=== PATIENT | female | born 1960 | race Caucasian/White ===

== ENCOUNTER 2016-10-16 15:41 | Emergency (ER) | payer MEDICARE, MEDICAID ==
[~2016-10-16] VITALS: Ht 175.3 cm; Wt 130.6 kg
[~2016-10-16 15:41] MED LIST: ACET-789 PO; ATOR10TA66 PO; AZIT250T PO; AZIT250T5 PO; BENZ-13 PO; BUDE10.2 IH; CEFD300C3 PO; CEFU250T11 PO; CEPH-507 PO; CIPR-225 PO; CODE118S2 PO; DOCU-143 PO; DOXY100C42 PO; FLUC100T PO; FLUO40CA PO; FLUT1DIS26 IH; HYDR-3812 PO; HYDR-3816 PO; HYDR-3820 PO; LEVO500T2 PO; LEVO750T9 PO; LORA-405 PO; LORA10TA76 PO; METF-144 PO; METF500T4 PO; METH4TAB PO; NAPR-243 PO; NAPR500T PO; NITR-65 PO; NITR100C3 PO; OMEP20TA7 PO; OMEP40CA36 PO; ONDA4TAB8 PO; OXCA300T PO; OXYC-197 PO; OXYC-471 PO; PHEN-640 PO; PHEN100T17 PO; PRD20T PO; RT-ALBUINH IH; TIOT18CA2 IH; TRAM-42 PO; TRAM50TA2 PO
[2016-10-16] MEDS ORDERED: NS IV 1000 ML 1,000 ML IV ONE (16:27)
[2016-10-16] MEDS ORDERED: fentaNYL INJECTION 100 MCG/2 ML AMP IVP STA (16:41)
--- NOTE | 2016-10-16 16:55 | ED Abdominal Pain ---
General Chief Complaint: Abdominal/GI Problems Stated Complaint: ABD PAIN Nursing Triage Note: AMBULATED TO ROOM 02 HOLDING RIGHT LOWER ABD. COMPLAINS OF SHARP PAIN STARTING YESTERDAY. RECENT GALLBLADDER SURGERY ON 09/19 BY SHYANNE. PT COMPLAINED OF CHEST PAIN AT THE [facility] BUT DOES NOT COMPLAIN OF IT HERE. Sepsis Screen: No Definite Risk Source of Information: Patient Exam Limitations: No Limitations History of Present Illness Time Seen By Provider: 16:35 Initial Comments Here with report low pressure right lower quadrant abdominal pain for 2 days. Was seen at [facility] by Dr. Thompson today and sent here for further evaluation do to the right lower quadrant pain. She has history of cholecystectomy on 09/[address] Kimble. Denies vomiting or diarrhea. Does have mild fever today. Denies other concerns other than the right lower quadrant abdominal pain. Timing/Duration: 2-3 Days Severity/Quality: Moderate Location: RLQ Radiation: No Radiation Activities at Onset: None Modifying Factors: Worsens With Movement Associated Symptoms: No Back Pain, No Chest Pain, Fever/ChillsNo Nausea/ Vomiting, No Weakness Allergies and Home Medications Allergies Coded Allergies: Iodinated Contrast Media - IV Dye (Unverified Allergy, Unknown, 12/20/15) penicillin (Verified Allergy, Unknown, HAS RECEIVED ROCEPHIN, 04/18/15) Home Medications Albuterol Sulfate 8.5 Gm Hfa.aer.ad 2 PUFF IH Q4H PRN PRN WHEEZING (Reported) Atorvastatin Calcium 10 Mg Tablet #30 10 MG PO DAILY Prescribed by: RAQUEL CRAWFORD on 04/09/15 1616 Docusate Sodium 100 Mg Capsule #60 100 MG PO BID Prescribed by: STEPHANE KIMBLE on 09/19/16 1326 Fluticasone/Salmeterol 1 Each Blst.w.dev 1 EACH IH BID (Reported) Hydrocodone/Acetaminophen 1 Each Tablet #30 1 TAB PO Q4H PRN PRN Prescribed by: STEPHANE KIMBLE on 09/19/16 1326 Metformin HCl 500 Mg Tablet 500 MG PO BID WITH MEALS (Reported) Omeprazole 40 Mg Capsule.dr 40 MG PO DAILY (Reported) Tiotropium [place] 1 Inh Aerp 1 INH IH DAILY (Reported) Review of Systems Constitutional: see HPINo chills, No fever EENTM: No Symptoms Reported Respiratory: No Symptoms Reported Cardiovascular: No Symptoms ReportedDenies Chest Pain Gastrointestinal: Abdominal PainDenies Diarrhea, Denies Nausea, Denies Vomiting Musculoskeletal: no symptoms reported Skin: no symptoms reported Psychiatric/Neurological: No Symptoms Reported All Other Systems Reviewed Negative Unless Noted: Yes Past Vwfmino-Ivwjlq-Okslrc Hx Patient Social History Alcohol Use: Denies Use Recreational Drug Use: No Smoking Status: Former Smoker Former Smoker/When Quit: Apr 09, 2010 Recent Foreign Travel: No Contact w/Someone Who Travel: No Recent Infectious Disease Expo: No Recent Hopitalizations: No Physical Abuse Screen: No Sexual Abuse: No Immunizations Up To Date Tetanus Booster (TDap): Unknown Date of Pneumonia Vaccine: Feb 28, 2012 Date of Influenza Vaccine: Jul 16, 2016 Seasonal Allergies Seasonal Allergies: No Surgeries HX Surgeries: Yes (Partial Hysterectomy; Carpal Tunnel Nba, L KNEE SURGERY x9, Shoulder Surger) Surgeries: Hysterectomy, Orthopedic Respiratory Hx Respiratory Disorders: Yes (CPAP) Respiratory Disorders: Asthma, Sleep Apnea, COPD Cardiovascular Hx Cardiac Disorders: Yes Cardiac Disorders: High Cholesterol Neurological Hx Neurological Disorders: No Reproductive System Hx Reproductive Disorders: No (PID) Sexually Transmitted Disease: Yes (PID) HIV/AIDS: No 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 Genitourinary Hx Genitourinary Disorders: Yes Genitourinary Disorders: UTI-Chronic Gastrointestinal Hx Gastrointestinal Disorders: Yes Gastrointestinal Disorders: Gastroesophageal Reflux, Gall Bladder Disease, Irritable Bowel Musculoskeletal Hx Musculoskeletal Disorders: Yes Musculoskeletal Disorders: Arthritis, Fibromyalgia, Chronic Back Pain Endocrine Hx Endocrine Disorders: Yes Endocrine Disorders: Diabetes, Non-Insulin dep HEENT HX ENT Disorders: Yes (GLASSES) Loss of Vision: Bilateral Hearing Impairment: Denies Cancer Hx Cancer: No Psychosocial Hx Psychiatric Problems: Yes Behavioral Health Disorders: Anxiety, Bipolar, Depression Integumentary HX Skin/Integumentary Disorder: No Blood Transfusions Hx Blood Disorders: No Adverse Reaction to a Blood Tr: No (N/A) Reviewed Nursing Assessment Reviewed/Agree w Nursing PMH: Yes Family Medical History Family Medial History: Arthritis 19 MOTHER, Onset:Unknown Asthma 19 FATHER, Onset:Unknown Cataracts 19 MOTHER, Onset:Unknown Diabetes mellitus 19 MOTHER, Onset:Unknown FH: COPD (chronic obstructive pulmonary disease) 19 FATHER, Onset:Unknown Hypercholesterolemia 19 MOTHER MS (multiple sclerosis) G8 SISTER, Onset:Unknown Physical Exam Vital Signs VS - Last 72 Hours, by Label 10/16/16 16:00 Temp 99.2 Pulse 77 Resp 18 B/P 131/78 Pulse Ox 95 Capillary Refill : Less Than 3 Seconds General Appearance: WD/WN no apparent distress HEENT: PERRL/EOMI pharynx normal Neck: full range of motion supple Respiratory: lungs clear normal breath sounds Cardiovascular: regular rate, rhythm no murmur Gastrointestinal: softNo guarding, No rebound, tenderness (right lower quadrant) Extremities: non-tender normal inspection Back: normal inspection no CVA tenderness no vertebral tenderness Neurologic/Psychiatric: alert oriented x 3 Skin: normal color warm/dry (note note rate 90) Progress/Results/Core Measures Results/Orders Lab Results Laboratory Tests Test 10/16/16 16:50 10/16/16 17:00 10/16/16 17:05 Range/Units Urine Bacteria FEW H /HPF Urine Bilirubin 1+ H NEGATIVE Urine Casts NONE /LPF Urine Clarity SLIGHTLY CLOUDY Urine Color YELLOW Urine Crystals NONE /LPF Urine Culture Indicated NO Urine Glucose (UA) NEGATIVE NEGATIVE Urine Ketones NEGATIVE NEGATIVE Urine Leukocyte Esterase 1+ H NEGATIVE Urine Mucus NEGATIVE /LPF Urine Nitrite NEGATIVE NEGATIVE Urine Protein 1+ H NEGATIVE Urine RBC NONE /HPF Urine RBC (Auto) NEGATIVE NEGATIVE Urine Specific [place] 1.030 H 1.016-1.022 Urine Squamous Epithelial Cells 25-50 H /HPF Urine Urobilinogen NORMAL NORMAL MG/DL Urine WBC 2-5 /HPF Urine pH 5 5-9 Alanine Aminotransferase (ALT/SGPT) 33 0-55 U/L Albumin 4.0 3.2-4.5 G/DL Alkaline Phosphatase 105 40-136 U/L Anion Gap 11 5-14 MMOL/L Aspartate Amino Transf (AST/SGOT) 29 5-34 U/L BUN/Creatinine Ratio 16 Blood Urea Nitrogen 14 7-18 MG/DL Calcium Level 9.5 8.5-10.1 MG/DL Carbon Dioxide Level 24 21-32 MMOL/L Chloride Level 103 98-107 MMOL/L Creatinine 0.90 0.60-1.30 MG/DL Estimat Glomerular Filtration Rate > 60 Glucose Level 145 H 70-105 MG/DL Potassium Level 4.0 3.6-5.0 MMOL/L Sodium Level 138 135-145 MMOL/L Total Bilirubin 0.4 0.1-1.0 MG/DL Total Protein 7.8 6.4-8.2 G/DL Basophils # (Auto) 0.0 0.0-0.1 10^3/uL Basophils (%) (Auto) 0 0-10 % C-Reactive Protein High Sensitivity 0.59 H 0.00-0.50 MG/DL Eosinophils # (Auto) 0.2 0.0-0.3 10^3/uL Eosinophils (%) (Auto) 2 0-10 % Hematocrit 40 35-52 % Hemoglobin 13.8 11.5-16.0 G/DL Lymphocytes # (Auto) 4.0 1.0-4.0 X 10^3 Lymphocytes (%) (Auto) 37 12-44 % Mean Corpuscular Hemoglobin 28 25-34 PG Mean Corpuscular Hemoglobin Concent 35 32-36 G/DL Mean Corpuscular Volume 82 80-99 FL Mean Platelet Volume 11.9 H 7.4-10.4 FL Monocytes # (Auto) 0.6 0.0-1.0 X 10^3 Monocytes (%) (Auto) 5 0-12 % Neutrophils # (Auto) 6.0 1.8-7.8 X 10^3 Neutrophils (%) (Auto) 55 42-75 % Platelet Count 175 130-400 10^3/uL Red Blood Count 4.86 4.35-5.85 10^6/uL Red Cell Distribution Width 14.0 10.0-14.5 % White Blood Count 10.8 4.3-11.0 10^3/uL My Orders Orders-LUNA LEGER MD Cbc No Diff (10/16/16 16:27) Cbc With Automated Diff (10/16/16 16:27) Hs C Reactive Protein (10/16/16 16:27) Ua Culture If Indicated (10/16/16 16:27) Saline Lock/Iv-Start (10/16/16 16:27) Ns Iv 1000 Ml (Sodium Chloride 0.9%) (10/16/16 16:27) Ct Abdomen/Pelvis Wo (10/16/16 16:27) Fentanyl Injection (Sublimaze Injection (10/16/16 16:41) Urine Bedside (10/16/16 16:55) Comprehensive Metabolic Panel (10/16/16 17:26) Medications Given in ED Current Medications Medications Dose Ordered Sig/Veronika Route Start Time Stop Time Status Last Admin Dose Admin Sodium Chloride 1,000 ml @ 0 mls/hr Q0M ONCE IV 10/16/16 16:27 10/16/16 16:29 DC 10/16/16 17:03 1,000 MLS/HR Vital Signs/I&O Vital Sign - Last 12Hours 10/16/16 16:00 Temp 99.2 Pulse 77 Resp 18 B/P 131/78 Pulse Ox 95 Blood Pressure Mean: 95 Progress Note : Progress Note Seen and evaluated. IV, labs, normal saline 1 L bolus. Fentanyl [address] abdomen and pelvis without contrast ordered due to patient's IV contrast allergy. Monitor patient. 1800: No acute findings on CT. Patient pain related. Discharged home with return precautions. Patient verbalize understanding instructions and agreement with plan. Diagnostic Imaging Diagonstic Imaging: CT Plain Films/CT/US/NM/MRI: abdomen, pelvis Comments NAME: LENNY OROSCO [facility] REC#: [id number] PT STATUS: REG ER : 1960 PHYSICIAN: LUNA LEGER MD ADMIT DATE: 10/16/16/ER Draft Date of Exam:10/16/16 CT ABDOMEN/PELVIS WO PROCEDURE: CT abdomen and pelvis without contrast. TECHNIQUE: Multiple contiguous axial images were obtained through the abdomen and pelvis without the use of intravenous contrast. INDICATION: Vomiting x1 day. Right lower quadrant pain. COMPARISON: 09/13/2016. FINDINGS: The lung bases are clear. The liver appears normal. Gallbladder is absent. Pancreas and bile ducts appear normal. Spleen is normal. The adrenal glands are normal. Kidneys show no evidence of obstruction or calculi. Renal outlines are smooth. Bowel gas pattern appears normal. There is no evidence of constipation. The appendix is normal. No dilated structures are seen, however. No evidence of appendicolith. No intra-abdominal adenopathy. There is atherosclerotic disease of the aorta without evidence of aneurysm. IMPRESSION: 1. No evidence of appendicitis or diverticulitis. 2. No acute intra-abdominal abnormalities demonstrated when compared with previous study. Dictated on workstation # [id number] Dict: 10/16/16 174 Trans: 10/16/16 1747 [id number] Interpreted by: ZEINA JAVIER MD Electronically signed by: Reviewed: Reviewed by Me Departure Impression Impression: Primary Impression: Right lower quadrant abdominal pain Disposition: 01 HOME, SELF-CARE Condition: Improved Departure-Patient Inst. Decision time for Depature: 18:21 Referrals: NICKY THOMPSON MD (PCP/Family) Primary Care Physician Patient Instructions: Acute Abdomen (Belly Pain), Adult (DC) Add. Discharge Instructions: All discharge instructions reviewed with patient and/or family. Voiced understanding. Continue home medications as directed. Drink plenty of fluids. Follow-up with her DrGeorgina in one to 2 days for recheck. Return for worse pain, fever, vomiting, weakness, breathing problems or other concerns as needed. Copy Copies To 1: NICKY THOMPSON MD, TIMOTHY D MD Oct 16, 2016 16:55
[2016-10-16 17:01] LABS: KETONES,URINE NEGATIVE (NEGATIVE); LEUKOCYTE ESTERASE ,URINE 1+ (NEGATIVE); NITRITE,URINE NEGATIVE (NEGATIVE); PH,URINE 5 (5-9); PROTEIN,URINE 1+ (NEGATIVE); UROBILINOGEN,URINE NORMAL (NORMAL)
[2016-10-16 17:11] LABS: BASOPHILS % (AUTO) 0 % (0-10); EOSINOPHILS # (AUTO) 0.2 10^3/uL (0.0-0.3); EOSINOPHILS % (AUTO) 2 % (0-10); LYMPHOCYTES % (AUTO) 37 % (12-44); MEAN CORPUSCULAR HEMOGLOBIN 28 PG (25-34); MEAN CORPUSCULAR HGB CONC 35 G/DL (32-36); MEAN CORPUSCULAR VOLUME 82 FL (80-99); MEAN PLATELET VOLUME 11.9 FL (7.4-10.4); MONOCYTES # (AUTO) 0.6 X 10^3 (0.0-1.0); MONOCYTES % (AUTO) 5 % (0-12); NEUTROPHILS % (AUTO) 55 % (42-75); PLATELET COUNT 175 10^3/uL (130-400); RED BLOOD COUNT 4.86 10^6/uL (4.35-5.85); WHITE BLOOD COUNT 10.8 10^3/uL (4.3-11.0)
[2016-10-16 17:23] LABS: BILIRUBIN,URINE 1+ (NEGATIVE)
[2016-10-16 17:24] LABS: SQUAMOUS EPITHELIAL CELL,UR 25-50 /HPF
[2016-10-16 17:45] LABS: ALANINE AMINOTRANSFERASE 33 U/L (0-55); ANION GAP 11 MMOL/L (5-14); ASPARTATE AMINO TRANSFERASE 29 U/L (5-34); BILIRUBIN,TOTAL 0.4 MG/DL (0.1-1.0); BLOOD UREA NITROGEN 14 MG/DL (7-18); BUN/CREATININE RATIO 16; CALCIUM 9.5 MG/DL (8.5-10.1); CARBON DIOXIDE 24 MMOL/L (21-32); CHLORIDE 103 MMOL/L (98-107); GFR ESTIMATED > 60; GLUCOSE 145 MG/DL (70-105); SODIUM 138 MMOL/L (135-145); TOTAL PROTEIN 7.8 G/DL (6.4-8.2)
--- NOTE | 2016-10-16 17:48 | Diagnostic Imaging Report ---
PROCEDURE: CT abdomen and pelvis without contrast. TECHNIQUE: Multiple contiguous axial images were obtained through the abdomen and pelvis without the use of intravenous contrast. INDICATION: Vomiting x1 day. Right lower quadrant pain. COMPARISON: 09/13/2016. FINDINGS: The lung bases are clear. The liver appears normal. Gallbladder is absent. Pancreas and bile ducts appear normal. Spleen is normal. The adrenal glands are normal. Kidneys show no evidence of obstruction or calculi. Renal outlines are smooth. Bowel gas pattern appears normal. There is no evidence of constipation. The appendix is normal. No dilated structures are seen, however. No evidence of appendicolith. No intra-abdominal adenopathy. There is atherosclerotic disease of the aorta without evidence of aneurysm. IMPRESSION: 1. No evidence of appendicitis or diverticulitis. 2. No acute intra-abdominal abnormalities demonstrated when compared with previous study. Dictated by: Dictated on workstation # [id number]
[2016-10-16 18:41] VITALS: BP 129/83
== END 2016-10-16 18:41 | disposition home or self-care (01) ==
LOC: EDUNIT# 15:41 → ER 15:43
DX: R10.31 Right lower quadrant pain (principal); J44.9 Chronic obstructive pulmonary disease, unspecified; E11.9 Type 2 diabetes mellitus without complications; Z79.84 Long term (current) use of oral hypoglycemic drugs; Z79.899 Other long term (current) drug therapy; Z90.49 Acquired absence of other specified parts of digestive tract
CPT/HCPCS: 36415; 74176; 80053; 81000; 84703; 85025; 85027; 86141; 96361; 96374

== ENCOUNTER 2016-11-03 09:42 | Emergency (ER) | payer MEDICARE, MEDICAID ==
[~2016-11-03] VITALS: Ht 175.3 cm; Wt 129.7 kg
[2016-11-03] MEDS ORDERED: IBUPROFEN 600 MG (MOTRIN) TAB PO ONE (10:00)
--- NOTE | 2016-11-03 10:07 | ED Cough/URI ---
General Chief Complaint: Cough/Cold/Flu Symptoms Stated Complaint: CHEST PAIN/SORE THROAT Nursing Triage Note: Pt reports sore throat x2 weeks, coughing up "black stuff" x3 weeks, and chest pain x2 days. Pt reports chest pain is worse when taking a deep breath. Source: patient History of Present Illness Time seen by provider: 10:02 Initial Comments This 55-year-old white female presents with a history of sore throat which started she believes is strapped which was not treated with antibiotics. And a productive cough for the last 3 weeks of black sputum. Patient has had chest pain with coughing for the last 2 days. The patient's pain is sharp in nature and made worse with a deep breath. Patient denies associated headache, photophobia, or stiff neck. She denies vomiting, diarrhea, dysuria. Patient states that she has had this same symptom complex before secondary to pneumonia. Patient is a diabetic on metformin. Allergies and Home Medications Allergies Coded Allergies: Iodinated Contrast Media - IV Dye (Unverified Allergy, Unknown, 12/20/15) penicillin (Verified Allergy, Unknown, HAS RECEIVED ROCEPHIN, 04/18/15) Home Medications Albuterol Sulfate 8.5 Gm Hfa.aer.ad 2 PUFF IH Q4H PRN PRN WHEEZING (Reported) Atorvastatin Calcium 10 Mg Tablet #30 10 MG PO DAILY Prescribed by: RAQUEL CRAWFORD on 04/09/15 1616 Docusate Sodium 100 Mg Capsule #60 100 MG PO BID Prescribed by: STEPHANE KIMBLE on 09/19/16 1326 Fluticasone/Salmeterol 1 Each Blst.w.dev 1 EACH IH BID (Reported) Hydrocodone/Acetaminophen 1 Each Tablet #30 1 TAB PO Q4H PRN PRN Prescribed by: STEPHANE KIMBLE on 09/19/16 1326 Metformin HCl 500 Mg Tablet 500 MG PO BID WITH MEALS (Reported) Omeprazole 40 Mg Capsule.dr 40 MG PO DAILY (Reported) Tiotropium [place] 1 Inh Aerp 1 INH IH DAILY (Reported) Constitutional: No chills, No fever EENTM: throat pain throat swellingNo ear pain Respiratory: coughNo short of breath, No wheezing Gastrointestinal: No abdominal pain, No diarrhea, No nausea, No vomiting Genitourinary: No dysuria, No frequency, No hematuria Musculoskeletal: back painNo joint pain Skin: No rash Psychiatric/Neurological: No Symptoms Reported Past Syrpcwh-Qlkygr-Ssqojg Hx Patient Social History Alcohol Use: Denies Use Recreational Drug Use: No Smoking Status: Former Smoker Former Smoker/When Quit: Apr 09, 2010 Recent Foreign Travel: No Contact w/Someone Who Travel: No Recent Infectious Disease Expo: No Recent Hopitalizations: No Immunizations Up To Date Tetanus Booster (TDap): Unknown Date of Pneumonia Vaccine: Feb 28, 2012 Date of Influenza Vaccine: Jul 16, 2016 Seasonal Allergies Seasonal Allergies: No Surgeries HX Surgeries: Yes (Partial Hysterectomy; Carpal Tunnel Nba, L KNEE SURGERY x9, Shoulder Surger) Surgeries: Hysterectomy, Orthopedic Respiratory Hx Respiratory Disorders: Yes (CPAP) Respiratory Disorders: Asthma, Sleep Apnea, COPD Cardiovascular Hx Cardiac Disorders: Yes Cardiac Disorders: High Cholesterol Neurological Hx Neurological Disorders: No Reproductive System Hx Reproductive Disorders: No (PID) Sexually Transmitted Disease: Yes (PID) HIV/AIDS: No 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 Genitourinary Hx Genitourinary Disorders: Yes Genitourinary Disorders: UTI-Chronic Gastrointestinal Hx Gastrointestinal Disorders: Yes Gastrointestinal Disorders: Gastroesophageal Reflux, Gall Bladder Disease, Irritable Bowel Musculoskeletal Hx Musculoskeletal Disorders: Yes Musculoskeletal Disorders: Arthritis, Fibromyalgia, Chronic Back Pain Endocrine Hx Endocrine Disorders: Yes Endocrine Disorders: Diabetes, Non-Insulin dep HEENT HX ENT Disorders: Yes (GLASSES) Loss of Vision: Bilateral Hearing Impairment: Denies Cancer Hx Cancer: No Psychosocial Hx Psychiatric Problems: Yes Behavioral Health Disorders: Anxiety, Bipolar, Depression Integumentary HX Skin/Integumentary Disorder: No Blood Transfusions Hx Blood Disorders: No Adverse Reaction to a Blood Tr: No (N/A) Reviewed Nursing Assessment Reviewed/Agree w Nursing PMH: Yes Family Medical History Family Medial History: Arthritis 19 MOTHER, Onset:Unknown Asthma 19 FATHER, Onset:Unknown Cataracts 19 MOTHER, Onset:Unknown Diabetes mellitus 19 MOTHER, Onset:Unknown FH: COPD (chronic obstructive pulmonary disease) 19 FATHER, Onset:Unknown Hypercholesterolemia 19 MOTHER MS (multiple sclerosis) G8 SISTER, Onset:Unknown Physical Exam Vital Signs Vital Sign - Last 12Hours 11/03/16 09:49 Temp 99.0 Pulse 77 Resp 18 B/P 134/76 Pulse Ox 96 O2 Delivery Room Air Capillary Refill : Less Than 3 Seconds General Appearance: WD/WN mild distress Eyes: Bilateral Eye Normal Inspection HEENT: normal ENT inspection pharynx normal Neck: supple normal inspection Respiratory: lungs clear normal breath sounds no respiratory distress other ( there is tenderness palpation of the chest wall. Patient's) Cardiovascular: normal peripheral pulses regular rate, rhythm ( chest wall pain is made worse with coughing.) no gallop no murmur Gastrointestinal: normal bowel sounds non tender soft Extremities: normal range of motion non-tender normal inspection Neurologic/Psychiatric: no motor/sensory deficits alert Skin: normal color warm/dry Progress/Results/Core Measures Results/Orders Lab Results Laboratory Tests Test 11/03/16 09:54 11/03/16 10:16 11/03/16 10:21 Range/Units Alanine Aminotransferase (ALT/SGPT) 29 0-55 U/L Albumin 4.0 3.2-4.5 G/DL Alkaline Phosphatase 95 40-136 U/L Anion Gap 13 5-14 MMOL/L Aspartate Amino Transf (AST/SGOT) 27 5-34 U/L BUN/Creatinine Ratio 13 Basophils # (Auto) 0.0 0.0-0.1 10^3/uL Basophils (%) (Auto) 0 0-10 % Blood Urea Nitrogen 11 7-18 MG/DL Calcium Level 9.3 8.5-10.1 MG/DL Carbon Dioxide Level 21 21-32 MMOL/L Chloride Level 102 98-107 MMOL/L Creatinine 0.83 0.60-1.30 MG/DL Eosinophils # (Auto) 0.2 0.0-0.3 10^3/uL Eosinophils (%) (Auto) 2 0-10 % Estimat Glomerular Filtration Rate > 60 Glucose Level 131 H 70-105 MG/DL Hematocrit 37 35-52 % Hemoglobin 12.5 11.5-16.0 G/DL Hemoglobin A1c 6.8 H 4.5-6.2 % Lymphocytes # (Auto) 2.6 1.0-4.0 X 10^3 Lymphocytes (%) (Auto) 31 12-44 % Mean Corpuscular Hemoglobin 28 25-34 PG Mean Corpuscular Hemoglobin Concent 34 32-36 G/DL Mean Corpuscular Volume 84 80-99 FL Mean Platelet Volume 12.1 H 7.4-10.4 FL Monocytes # (Auto) 0.3 0.0-1.0 X 10^3 Monocytes (%) (Auto) 4 0-12 % Neutrophils # (Auto) 5.2 1.8-7.8 X 10^3 Neutrophils (%) (Auto) 63 42-75 % Platelet Count 184 130-400 10^3/uL Potassium Level 3.9 3.6-5.0 MMOL/L Red Blood Count 4.44 4.35-5.85 10^6/uL Red Cell Distribution Width 13.8 10.0-14.5 % Sodium Level 136 135-145 MMOL/L Total Bilirubin 0.5 0.1-1.0 MG/DL Total Protein 7.8 6.4-8.2 G/DL Troponin I < 0.30 <0.30 NG/ML White Blood Count 8.3 4.3-11.0 10^3/uL Urine Bacteria MODERATE H /HPF Urine Bilirubin NEGATIVE NEGATIVE Urine Casts NONE /LPF Urine Clarity SLIGHTLY CLOUDY Urine Color YELLOW Urine Crystals NONE /LPF Urine Culture Indicated YES Urine Glucose (UA) NEGATIVE NEGATIVE Urine Ketones NEGATIVE NEGATIVE Urine Leukocyte Esterase 1+ H NEGATIVE Urine Mucus SMALL H /LPF Urine Nitrite NEGATIVE NEGATIVE Urine Protein NEGATIVE NEGATIVE Urine RBC NONE /HPF Urine RBC (Auto) NEGATIVE NEGATIVE Urine Specific [place] 1.025 H 1.016-1.022 Urine Squamous Epithelial Cells 2-5 /HPF Urine Urobilinogen NORMAL NORMAL MG/DL Urine WBC 5-10 H /HPF Urine pH 5 5-9 Group A Streptococcus Screen POSITIVE H NEGATIVE My Orders Orders-CHRISTO VIDAL MD Cbc With Automated Diff (11/03/16 09:59) Rapid Strep A Screen (11/03/16 09:59) Comprehensive Metabolic Panel (11/03/16 09:59) Chest Pa/Lat (2 View) (11/03/16 09:59) Hemoglobin A1c (11/03/16 09:59) Ua Culture If Indicated (11/03/16 09:59) Ibuprofen Tablet (Motrin Tablet) (11/03/16 10:00) Saline Lock/Iv-Start (11/03/16 10:10) Ekg Tracing (11/03/16 10:15) Troponin I (11/03/16 10:15) Urine Culture (11/03/16 10:16) Medications Given in ED Current Medications Medications Dose Ordered Sig/Veronika Route Start Time Stop Time Status Last Admin Dose Admin Ibuprofen 600 mg ONCE ONCE PO 11/03/16 10:00 11/03/16 10:03 DC 11/03/16 10:23 600 MG Vital Signs/I&O Vital Sign - Last 12Hours 11/03/16 11/03/16 09:49 09:53 Temp 99.0 Pulse 77 Resp 18 B/P 134/76 Pulse Ox 96 O2 Delivery Room Air Room Air Blood Pressure Mean: 95 Progress Note : Time: 11:16 Progress Note Patient's strep screen was positive. Patient demonstrated evidence of urinary tract infection. Patient's CBC, chest x-ray, and the remainder of her workup were unremarkable. Departure Impression Impression: Primary Impression: Strep throat Additional Impression: UTI (urinary tract infection) Qualified Code: N30.00 - Acute cystitis without hematuria Disposition: HOME, SELF-CARE Condition: Unchanged Departure-Patient Inst. Decision time for Depature: 11:17 Referrals: NICKY THOMPSON MD (PCP/Family) Primary Care Physician Add. Discharge Instructions: Keflex as prescribed. Close follow-up with Dr. Alvarado. Vicodin for pain. Return of any problems. All discharge instructions reviewed with patient and/ or family. Voiced understanding. CHRISTO VIDAL MD Nov 03, 2016 10:07
[2016-11-03 10:09] LABS: BASOPHILS % (AUTO) 0 % (0-10); EOSINOPHILS # (AUTO) 0.2 10^3/uL (0.0-0.3); EOSINOPHILS % (AUTO) 2 % (0-10); LYMPHOCYTES # (AUTO) 2.6 X 10^3 (1.0-4.0); LYMPHOCYTES % (AUTO) 31 % (12-44); MEAN CORPUSCULAR HEMOGLOBIN 28 PG (25-34); MEAN CORPUSCULAR HGB CONC 34 G/DL (32-36); MEAN CORPUSCULAR VOLUME 84 FL (80-99); MEAN PLATELET VOLUME 12.1 FL (7.4-10.4); MONOCYTES # (AUTO) 0.3 X 10^3 (0.0-1.0); MONOCYTES % (AUTO) 4 % (0-12); NEUTROPHILS # (AUTO) 5.2 X 10^3 (1.8-7.8); NEUTROPHILS % (AUTO) 63 % (42-75); PLATELET COUNT 184 10^3/uL (130-400); RED BLOOD COUNT 4.44 10^6/uL (4.35-5.85); RED CELL DISTRIBUTION WIDTH 13.8 % (10.0-14.5); WHITE BLOOD COUNT 8.3 10^3/uL (4.3-11.0)
[2016-11-03 10:23] LABS: ALANINE AMINOTRANSFERASE 29 U/L (0-55); ANION GAP 13 MMOL/L (5-14); ASPARTATE AMINO TRANSFERASE 27 U/L (5-34); BILIRUBIN,TOTAL 0.5 MG/DL (0.1-1.0); BLOOD UREA NITROGEN 11 MG/DL (7-18); BUN/CREATININE RATIO 13; CALCIUM 9.3 MG/DL (8.5-10.1); CARBON DIOXIDE 21 MMOL/L (21-32); CHLORIDE 102 MMOL/L (98-107); CREATININE SERUM 0.83 MG/DL (0.60-1.30); GFR ESTIMATED > 60; GLUCOSE 131 MG/DL (70-105); POTASSIUM 3.9 MMOL/L (3.6-5.0); SODIUM 136 MMOL/L (135-145); TOTAL PROTEIN 7.8 G/DL (6.4-8.2)
[2016-11-03 10:23] LABS: BILIRUBIN,URINE NEGATIVE (NEGATIVE); KETONES,URINE NEGATIVE (NEGATIVE); LEUKOCYTE ESTERASE ,URINE 1+ (NEGATIVE); NITRITE,URINE NEGATIVE (NEGATIVE); PH,URINE 5 (5-9); PROTEIN,URINE NEGATIVE (NEGATIVE); UROBILINOGEN,URINE NORMAL (NORMAL)
--- NOTE | 2016-11-03 10:25 | Diagnostic Imaging Report ---
Clinical indication: Patient with chest pain x2 days. Patient has swollen throat for approximately 2 weeks. Exam: Chest x-ray PA and lateral views. Comparisons: Chest x-ray dated 07/18/2016. Findings: Lungs/pleura: Lungs are clear. There is no pneumothorax. There is no pleural effusion. Mediastinum: Unremarkable. Pulmonary vasculature: Unremarkable. Heart: Unremarkable. Bones/extrathoracic soft tissue: Unremarkable. Impression: There is no radiographic evidence of acute cardiopulmonary process. Dictated by: Dictated on workstation # [id number]
[2016-11-03 11:34] VITALS: BP 147/79
== END 2016-11-03 11:33 | disposition home or self-care (01) ==
LOC: EDUNIT# 09:42 → ER 09:43
DX: J02.0 Streptococcal pharyngitis (principal); N39.0 Urinary tract infection, site not specified; R07.89 Other chest pain; Z79.84 Long term (current) use of oral hypoglycemic drugs; Z87.891 Personal history of nicotine dependence
CPT/HCPCS: 36415; 71020; 80053; 81000; 83036; 84484; 85025; 87088; 87430; 93005

== ENCOUNTER → 2016-11-04 | Outpatient (CLI) | payer MEDICARE, MEDICAID ==
[~2016-11-04] MED LIST changes: +CYCL5TAB PO; +FLUC100T6 PO
--- NOTE | 2016-11-04 11:02 | Diagnostic Imaging Report ---
INDICATION: Right lower quadrant pelvic pain. Pelvic sonogram: FINDINGS: The uterus is surgically absent. Neither ovary is seen and presumably could be surgically absent. There is no ascites. There is no pathologic mass or fluid collection. IMPRESSION: Postop changes from complete hysterectomy. No acute abnormality seen. Dictated by: Dictated on workstation # [id number]
== END ==
LOC: RAD 09:43
PROVIDERS: ATTEND Family Medicine
DX: R10.31 Right lower quadrant pain (principal)
CPT/HCPCS: 76830; 76856

== ENCOUNTER 2016-11-22 14:39 | Emergency (ER) | payer MEDICARE, MEDICAID ==
[~2016-11-22] VITALS: Ht 175.3 cm; Wt 127.0 kg
[~2016-11-22 14:39] MED LIST changes: -CYCL5TAB PO; -FLUC100T6 PO
--- NOTE | 2016-11-22 15:50 | ED GU-Female ---
General Chief Complaint: -Female Stated Complaint: YEAST INFECTION Nursing Triage Note: c/o vaginal irritation and itching. Symptoms have been present the last few days. Claims she has been on many antibiotics recently. Nursing Sepsis Screen: No Definite Risk Source: patient Exam Limitations: no limitations History of Present Illness Time seen by provider: 15:50 Initial Comments 55-year-old female patient presents to the emergency department complains of a yeast infection for approximately 7-10 days. Patient states she had 3 rounds of antibiotics and now has a "raging yeast infection". complains of vulvar itching and burning.Denies using jqpx-cpa-ozavuio medications. Patient was given 2 doses of fluconazole with mild improvement in symptoms, but states the infection is to pad for just 2 pills. Timing/Duration: other (2 weeks) Severity/Quality: burning, other (pruritus) Location: vaginal, other (vulva) Activities at Onset: other (following antibiotic therapy) Prior Genitourinary Problems: similar symptoms Modifying Factors: Worsens With Other (worse with scratching) Allergies and Home Medications Allergies Coded Allergies: Iodinated Contrast Media - IV Dye (Unverified Allergy, Unknown, 12/20/15) penicillin (Verified Allergy, Unknown, HAS RECEIVED ROCEPHIN, 04/18/15) Home Medications Albuterol Sulfate 8.5 Gm Hfa.aer.ad 2 PUFF IH Q4H PRN PRN WHEEZING (Reported) Atorvastatin Calcium 10 Mg Tablet #30 10 MG PO DAILY Prescribed by: RAQUEL CRAWFORD on 04/09/15 1616 Docusate Sodium 100 Mg Capsule #60 100 MG PO BID Prescribed by: STEPHANE KIMBLE on 09/19/16 1326 Fluconazole 100 Mg Tablet #8 100 MG PO UD 2 po x 1 dose, then 1 tab po daily Prescribed by: RAQUEL CRAWFORD on 11/22/16 1610 Fluticasone/Salmeterol 1 Each Blst.w.dev 1 EACH IH BID (Reported) Hydrocodone/Acetaminophen 1 Each Tablet #30 1 TAB PO Q4H PRN PRN Prescribed by: STEPHANE KIMBLE on 09/19/16 1326 Metformin HCl 500 Mg Tablet 500 MG PO BID WITH MEALS (Reported) Omeprazole 40 Mg Capsule.dr 40 MG PO DAILY (Reported) Tiotropium [place] 1 Inh Aerp 1 INH IH DAILY (Reported) Constitutional: No chills, No diaphoresis, No fever, No malaise Respiratory: no symptoms reported Cardiovascular: no symptoms reported Gastrointestinal: no symptoms reported Genitourinary: see HPIdenies discharge, denies dysuria, denies frequency, denies flank pain, denies hematuria, pain Musculoskeletal: no symptoms reported Skin: see HPI Psychiatric/Neurological: No Symptoms Reported All Other Systemes Reviewed Negative Unless Noted: Yes (Negative excepted noted.) Past Gqyygsc-Bafdji-Bqkmbk Hx Patient Social History Former Smoker/When Quit: Apr 09, 2010 Recent Foreign Travel: No Contact w/Someone Who Travel: No Recent Infectious Disease Expo: No Recent Hopitalizations: No Immunizations Up To Date Tetanus Booster (TDap): Unknown Date of Pneumonia Vaccine: Feb 28, 2012 Date of Influenza Vaccine: Jul 16, 2016 Seasonal Allergies Seasonal Allergies: No Surgeries HX Surgeries: Yes (Partial Hysterectomy; Carpal Tunnel Nba, L KNEE SURGERY x9, Shoulder Surger) Surgeries: Hysterectomy, Orthopedic Respiratory Hx Respiratory Disorders: Yes (CPAP) Respiratory Disorders: Asthma, Sleep Apnea, COPD Cardiovascular Hx Cardiac Disorders: Yes Cardiac Disorders: High Cholesterol Neurological Hx Neurological Disorders: No Reproductive System Hx Reproductive Disorders: No (PID) Sexually Transmitted Disease: Yes (PID) HIV/AIDS: No 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 Genitourinary Hx Genitourinary Disorders: Yes (candidal infections following antibiotic treatment.) Genitourinary Disorders: UTI-Chronic Gastrointestinal Hx Gastrointestinal Disorders: Yes Gastrointestinal Disorders: Gastroesophageal Reflux, Gall Bladder Disease, Irritable Bowel Musculoskeletal Hx Musculoskeletal Disorders: Yes Musculoskeletal Disorders: Arthritis, Fibromyalgia, Chronic Back Pain Endocrine Hx Endocrine Disorders: Yes Endocrine Disorders: Diabetes, Non-Insulin dep HEENT HX ENT Disorders: Yes (GLASSES) Loss of Vision: Bilateral Hearing Impairment: Denies Cancer Hx Cancer: No Psychosocial Hx Psychiatric Problems: Yes Behavioral Health Disorders: Anxiety, Bipolar, Depression Integumentary HX Skin/Integumentary Disorder: No Blood Transfusions Hx Blood Disorders: No Adverse Reaction to a Blood Tr: No (N/A) Reviewed Nursing Assessment Reviewed/Agree w Nursing PMH: Yes Family Medical History Significant Family History: No Pertinent Family Hx Family Medial History: Arthritis 19 MOTHER, Onset:Unknown Asthma 19 FATHER, Onset:Unknown Cataracts 19 MOTHER, Onset:Unknown Diabetes mellitus 19 MOTHER, Onset:Unknown FH: COPD (chronic obstructive pulmonary disease) 19 FATHER, Onset:Unknown Hypercholesterolemia 19 MOTHER MS (multiple sclerosis) G8 SISTER, Onset:Unknown Physical Exam Vital Signs Vital Sign - Last 12Hours 11/22/16 15:09 Temp 97.2 Pulse 70 Resp 16 B/P 137/75 Pulse Ox 98 Capillary Refill : Less Than 3 Seconds General Appearance: WD/WN no apparent distress Cardiovascular: regular rate, rhythm no murmur Respiratory: lungs clear normal breath sounds no respiratory distress Gastrointestinal: normal bowel sounds non tender soft no organomegalyNo distended Pelvic: other (deferred by patient.) Neurologic/Psychiatric: alert normal mood/affect oriented x 3 Skin: normal color warm/dry Progress/Results/Core Measures Results/Orders Vital Signs/I&O Vital Sign - Last 12Hours 11/22/16 15:09 Temp 97.2 Pulse 70 Resp 16 B/P 137/75 Pulse Ox 98 Blood Pressure Mean: 95 Departure Impression Impression: Primary Impression: Candidal vulvovaginitis Disposition: 01 HOME, SELF-CARE Condition: Improved Departure-Patient Inst. Decision time for Depature: 16:09 Referrals: NICKY ESPINO MD (PCP/Family) Primary Care Physician Patient Instructions: Vaginal Yeast Infection (DC) Add. Discharge Instructions: All discharge instructions reviewed with patient and/or family. Voiced understanding. Medications as directed. Monistat [id number] as directed for yeast infection. Follow-up with Dr. Espino for recheck as an outpatient, call for appointment time. Return to the emergency department for worsened symptoms or any other concerns. Scripts Fluconazole 100 Mg [id number] Mg PO UD #8 TAB Ref 0 2 po x 1 dose, then 1 tab po daily Prov:RAQUEL CRAWFORD 11/22/16 RAQUEL CRAWFORD Nov 22, 2016 15:50
[2016-11-22] MEDS ORDERED: FLUC100T6 PO (16:10)
[2016-11-22 16:21] VITALS: BP 137/75
== END 2016-11-22 16:20 | disposition home or self-care (01) ==
LOC: EDUNIT# 14:39 → ER 14:41
DX: B37.3 Candidiasis of vulva and vagina (principal); E11.9 Type 2 diabetes mellitus without complications; J44.9 Chronic obstructive pulmonary disease, unspecified; Z79.4 Long term (current) use of insulin; Z79.899 Other long term (current) drug therapy
CPT/HCPCS: 99285

== ENCOUNTER → 2016-11-27 | Outpatient (CLI) | payer MEDICARE, MEDICAID ==
[~2016-11-27] MED LIST changes: +CYCL5TAB PO; +FLUC100T6 PO
--- NOTE | 2016-11-29 07:11 | ECHOCARDIOGRAPHY REPORT ---
PROCEDURE PHYSICIAN: JENNY HARDIN DATE OF PROCEDURE: 11/27/2016 TWO DIMENSIONAL ECHOCARDIOGRAM REPORT PRIMARY PHYSICIAN: Dr. Li Foreman OTHER PHYSICIAN: REFERRING PHYSICIAN: ORDERING PHYSICIAN: ATTENDING PHYSICIAN: Dr. Shawn Hardin FAMILY PHYSICIAN: READING PHYSICIAN: INDICATION FOR THE PROCEDURE: 1. Chronic obstructive pulmonary disease. 2. Chest pain. 3. Diabetes. 4. Hypertension. MEASUREMENTS DERIVED VALUES LV DIAMETER (LAX) NORMALS NORMALS Diastolic (3.6-5.2) Eject. Fract. (60%+/-6%) Systolic (2.3-3.9) Diastolic Vol. % Shortening (0.22-0.42) Systolic Vol. Aortic Root IVS THICKNESS Diastolic (0.6-1.1) LVPW THICKNESS Diastolic (0.6-1.1) LA DIAMETER Systolic (2.1-3.7) FINDINGS: 1. Sinus rhythm. 2. Left atrial size is normal. 3. Aortic root size is normal. 4. LV ejection fraction is normal. LV EF is 60 to 65%. No LVH is present. 5. Normal wall motion. 6. Normal RV size and function. 7. No pericardial effusion. 8. Mild diastolic dysfunction is present. 9. IVC was not visualized. VALVULAR STRUCTURE OF THE HEART: There is trace tricuspid regurgitation with RVSP of 36 mmHg. There is trace mitral regurgitation. Mild aortic sclerosis with no significant stenosis or regurgitation. Trace pulmonic regurgitation. CONCLUSION: 1. Normal LV size and function. 2. Normal RV size and function. 3. LV EF is 60 to 65%. 4. Mild diastolic dysfunction. 5. Mild pulmonary hypertension with RVSP of 36 mmHg. Job ID: [id number] Dictated Date: 11/28/2016 22:31:11 Professor Of Social Work Date: 11/29/2016 07:06:38 / ester
== END ==
LOC: CARD 12:52
PROVIDERS: ATTEND Internal Medicine Interventional Cardiology
DX: R07.9 Chest pain, unspecified (principal); E78.5 Hyperlipidemia, unspecified; E11.9 Type 2 diabetes mellitus without complications; J44.9 Chronic obstructive pulmonary disease, unspecified
CPT/HCPCS: 93306

== ENCOUNTER → 2016-11-28 | Outpatient (CLI) | payer MEDICARE, MEDICAID ==
[~2016-11-28] VITALS: Ht 175.3 cm; Wt 127.9 kg
[~2016-11-28] MED LIST changes: +REGADENOSON 0.4 MG/5 ML SYR (LEXISCAN) IV ONE
[2016-11-28] MEDS: CATHETER FLUSH 10 ML SYR IV PRN (11:58)
[2016-11-28 13:01] VITALS: BP 132/88
[2016-11-28] MEDS: REGADENOSON 0.4 MG/5 ML SYR (LEXISCAN) IV ONE (13:01)
[2016-11-28 13:05] VITALS: BP 139/81
--- NOTE | 2016-12-02 11:28 | STRESS TEST ---
PROCEDURE PHYSICIAN: JENNY HARDIN DATE OF PROCEDURE: 11/28/2016 PHARMACOLOGIC STRESS TEST REPORT PRIMARY PHYSICIAN: Dr. Li Espino ATTENDING PHYSICIAN: Dr. Shawn Hardin DIAGNOSES: 1. COPD. 2. Chest pain. 3. Diabetes. 4. Chest pain. PROCEDURE DETAILS: The patient was brought to the stress laboratory after informed consent was taken. Pharmacological stress test was performed according to the protocol. 0.4 mg of Lexiscan was given IV. Low grade exercise was performed. 10.02 mCi of Myoview were given for rest images and 29.7 mCi of Myoview were given for stress images. Baseline EKG showed sinus rhythm with heart rate of 74 bpm. Blood pressure 132/88 mmHg. Maximum heart rate was 116 bpm and blood pressure was for 142/78 mmHg. The patient did not have any chest pain, arrhythmias, or ST-T wave changes during the stress test. Stress test was stopped secondary to completion of protocol. Review of perfusion images shows TID of 0.89 and ejection fraction of 60%. There is a small apical defect on and rest images but not on stress which is likely an artifact. There is no perfusion abnormalities on stress imaging. Normal wall motion on gaited images. CONCLUSION: 1. Pharmacological test is negative for ischemia. 2. No significant perfusion defect on stress images. A small apical defect on the rest images, which is likely an artifact. Job ID: [id number] Dictated Date: 12/02/2016 09:20:15 Repair Tech Date: 12/02/2016 11:16:46 / ester HEREDIA
== END ==
LOC: CARD 11:41
PROVIDERS: ATTEND Internal Medicine Interventional Cardiology
DX: J44.9 Chronic obstructive pulmonary disease, unspecified (principal); R07.9 Chest pain, unspecified; E11.9 Type 2 diabetes mellitus without complications; E78.5 Hyperlipidemia, unspecified
CPT/HCPCS: 78452; 93017

== ENCOUNTER 2017-01-30 20:17 | Emergency (ER) | payer MEDICARE, MEDICAID ==
[~2017-01-30] VITALS: Ht 175.3 cm; Wt 129.3 kg
[~2017-01-30 20:17] MED LIST changes: -CYCL5TAB PO; -REGADENOSON 0.4 MG/5 ML SYR (LEXISCAN) IV ONE
--- NOTE | 2017-01-30 20:34 | ED Lower Extremity ---
General Chief Complaint: Lower Extremity Stated Complaint: POSSIBLE BLOOD CLOT IN R LEG Source: patient Exam Limitations: no limitations History of Present Illness Time seen by provider: 20:31 Initial Comments To ER with concerns for blood clot in her right leg. She has never had one of these before but she has pain circumferentially around the right thigh that radiates to the lateral aspect of the right hip and down to her toes. Started 2 days ago without injury. She is currently on steroids and Zithromax for COPD exacerbation. She's never had this pain before. Pain is worsened by walking on it. Onset: just prior to arrival Severity: moderate Pain/Injury Location: right hip Method of Injury: unknown Modifying Factors: Worse With Movement Allergies and Home Medications Allergies Coded Allergies: Iodinated Contrast Media - Oral and (Unverified Allergy, Unknown, 12/20/15) penicillin (Verified Allergy, Unknown, HAS RECEIVED ROCEPHIN, 04/18/15) Home Medications Albuterol Sulfate 8.5 Gm Hfa.aer.ad, 2 PUFF IH Q4H PRN for WHEEZING, (Reported) Atorvastatin Calcium 10 Mg Tablet, 10 MG PO DAILY, #30 Ref 0 Prescribed by: RAQUEL CRAWFORD on 04/09/15 1616 Docusate Sodium 100 Mg Capsule, 100 MG PO BID, #60 Prescribed by: STEPHANE KIMBLE on 09/19/16 1326 Fluconazole 100 Mg Tablet, 100 MG PO UD, #8 Ref 0 2 po x 1 dose, then 1 tab po daily Prescribed by: RAQUEL CRAWFORD on 11/22/16 1610 Fluticasone/Salmeterol 1 Each Blst.w.dev, 1 EACH IH BID, (Reported) Hydrocodone/Acetaminophen 1 Each Tablet, 1 TAB PO Q4H PRN, #30 Prescribed by: STEPHANE KIMBLE on 09/19/16 1326 Metformin HCl 500 Mg Tablet, 500 MG PO BID WITH MEALS, (Reported) Omeprazole 40 Mg Capsule.dr, 40 MG PO DAILY, (Reported) Tiotropium [place] 1 Inh Aerp, 1 INH IH DAILY, (Reported) Constitutional: see HPI EENTM: see HPI Respiratory: no symptoms reported Cardiovascular: no symptoms reported Genitourinary: no symptoms reported Musculoskeletal: see HPI Psychiatric/Neurological: No Symptoms Reported Past Ovbvsfn-Sokayf-Ctuoia Hx Patient Social History Former Smoker/When Quit: Apr 09, 2010 Recent Foreign Travel: No Contact w/Someone Who Travel: No Recent Hopitalizations: No Immunizations Up To Date Tetanus Booster (TDap): Unknown Date of Pneumonia Vaccine: Feb 28, 2012 Date of Influenza Vaccine: Jul 16, 2016 Seasonal Allergies Seasonal Allergies: No Surgeries HX Surgeries: Yes (Partial Hysterectomy; Carpal Tunnel Nba, L KNEE SURGERY x9, Shoulder Surger) Surgeries: Hysterectomy, Orthopedic Respiratory Hx Respiratory Disorders: Yes (CPAP) Respiratory Disorders: Asthma, Sleep Apnea, COPD Cardiovascular Hx Cardiac Disorders: Yes Cardiac Disorders: High Cholesterol Neurological Hx Neurological Disorders: No Reproductive System Hx Reproductive Disorders: No (PID) Sexually Transmitted Disease: Yes (PID) HIV/AIDS: No 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 COUNSEL History: Hysterectomy Genitourinary Hx Genitourinary Disorders: Yes (candidal infections following antibiotic treatment.) Genitourinary Disorders: UTI-Chronic Gastrointestinal Hx Gastrointestinal Disorders: Yes Gastrointestinal Disorders: Gastroesophageal Reflux, Gall Bladder Disease, Irritable Bowel Musculoskeletal Hx Musculoskeletal Disorders: Yes Musculoskeletal Disorders: Arthritis, Fibromyalgia, Chronic Back Pain Endocrine Hx Endocrine Disorders: Yes Endocrine Disorders: Diabetes, Non-Insulin dep HEENT HX ENT Disorders: Yes (GLASSES) Loss of Vision: Bilateral Hearing Impairment: Denies Cancer Hx Cancer: No Psychosocial Hx Psychiatric Problems: Yes Behavioral Health Disorders: Anxiety, Bipolar, Depression Integumentary HX Skin/Integumentary Disorder: No Blood Transfusions Hx Blood Disorders: No Adverse Reaction to a Blood Tr: No (N/A) Family Medical History Significant Family History: No Pertinent Family Hx Family Medial History: Arthritis 19 MOTHER, Onset:Unknown Asthma 19 FATHER, Onset:Unknown Cataracts 19 MOTHER, Onset:Unknown Diabetes mellitus 19 MOTHER, Onset:Unknown FH: COPD (chronic obstructive pulmonary disease) 19 FATHER, Onset:Unknown Hypercholesterolemia 19 MOTHER MS (multiple sclerosis) G8 SISTER, Onset:Unknown Physical Exam Vital Signs Vital Sign - Last 12Hours 01/30/17 20:25 Temp 97.1 Pulse 89 Resp 20 B/P (MAP) 177/88 Pulse Ox 98 O2 Delivery Room Air Capillary Refill : General Appearance: WD/WN, no apparent distress HEENT: PERRL/EOMI, normal ENT inspection, TMs normal Neck: non-tender, full range of motion, supple Cardiovascular: regular rate, rhythm, no murmur Respiratory: no respiratory distress, no accessory muscle use Gastrointestinal: normal bowel sounds, non tender, soft Hips: left hip non-tender, bilateral hip normal inspection, bilateral hip normal range of motion, right hip pain Legs: bilateral leg non-tender, bilateral leg normal inspection, bilateral leg normal range of motion Knees: bilateral knee non-tender, bilateral knee normal inspection, bilateral knee normal range of motion Ankles: bilateral ankle non-tender, bilateral ankle normal inspection, bilateral ankle normal range of motion Feet: bilateral foot non-tender, bilateral foot normal inspection, bilateral foot normal range of motion Neurologic/Psychiatric: alert, normal mood/affect, oriented x 3 Skin: normal color, warm/dry Progress/Results/Core Measures Results/Orders My Orders Orders - JANELLE SEPITIA APRN Us Venous Lower Ext Rt (01/30/17 20:22) Hydrocodone/Apap 5/325 Tablet (Lortab 5 (01/30/17 20:45) Medications Given in ED Current Medications Medications Dose Ordered Sig/Veronika Route Start Time Stop Time Status Last Admin Dose Admin Acetaminophen/ Hydrocodone Bitart 1 tab ONCE ONCE PO 01/30/17 20:45 01/30/17 20:46 DC 01/30/17 20:37 1 TAB Vital Signs/I&O Vital Sign - Last 12Hours 01/30/17 20:25 Temp 97.1 Pulse 89 Resp 20 B/P (MAP) 177/88 Pulse Ox 98 O2 Delivery Room Air Departure Impression Impression: Primary Impression: Right leg pain Disposition: 01 HOME, SELF-CARE Condition: Stable Departure-Patient Inst. Decision time for Depature: 20:42 Referrals: NICKY THOMPSON MD (PCP/Family) Primary Care Physician Patient Instructions: NO INSTRUCTIONS GIVEN Add. Discharge Instructions: 1. Follow-up with your regular doctor later this week for recheck 2. Return to ER for any concerns 3. All discharge instructions reviewed with patient and/or family. Voiced understanding. Scripts Cyclobenzaprine HCl (Cyclobenzaprine HCl) 5 Mg Tablet 5 MG PO TID Y for PAIN-MODERATE, #14 TAB Prov: JANELLE ESPITIA APRN 01/30/17 Naproxen (Naprosyn) 500 Mg Tablet 500 MG PO BID Y for PAIN-MODERATE, #30 TAB Prov: JANELLE ESPITIA APRN 01/30/17 JANELLE ESPITIA APRN January 30, 2017 20:33
[2017-01-30] MEDS ORDERED: HYDROcodone/APAP 5 MG/325 MG (LORTAB) TAB PO ONE (20:45)
[2017-01-30] MEDS ORDERED: CYCL5TAB PO (21:50)
[2017-01-30] MEDS ORDERED: NAPR500T PO (21:50)
[2017-01-30 21:57] VITALS: BP 177/88
--- NOTE | 2017-01-30 22:17 | Diagnostic Imaging Report ---
INDICATION: Leg bruising. Pain. TECHNIQUE: Grayscale with color-flow and Doppler waveform evaluation of the right lower extremity deep venous system. CORRELATION STUDY: None FINDINGS: Color and grayscale sonographic images demonstrate no intraluminal defect within the visualized portion of the common femoral, superficial femoral and/or popliteal veins to suggest thrombus formation. These vessels demonstrate normal response to compression and augmentation. No soft tissue fluid collection. IMPRESSION: 1. Negative for deep venous thrombosis of the right leg. Dictated by: Dictated on workstation # [id number]
== END 2017-01-30 21:57 | disposition home or self-care (01) ==
LOC: EDUNIT# 20:17 → ER 20:20
DX: M79.604 Pain in right leg (principal); J44.9 Chronic obstructive pulmonary disease, unspecified; E78.00 Pure hypercholesterolemia, unspecified; K21.9 Gastro-esophageal reflux disease without esophagitis; F41.9 Anxiety disorder, unspecified; F31.9 Bipolar disorder, unspecified; Z87.891 Personal history of nicotine dependence
CPT/HCPCS: 99285

== ENCOUNTER 2017-02-09 08:26 | Emergency (ER) | payer MEDICARE, MEDICAID ==
[~2017-02-09] VITALS: Ht 175.3 cm; Wt 129.3 kg
[~2017-02-09 08:26] MED LIST changes: +CYCL5TAB PO
--- NOTE | 2017-02-09 09:18 | ED Lower Extremity ---
General Chief Complaint: Lower Extremity Stated Complaint: R KNEE TO FOOT PAIN Nursing Triage Note: PT C/O R KNEE PAIN. DENIES INJURY, BUT REPORTS SHES BEEN MOVING. Nursing Sepsis Screen: No Definite Risk Source: patient Exam Limitations: no limitations History of Present Illness Time seen by provider: 09:16 Initial Comments Patient presents with 2 days pain in her right knee after hitting it with a steel chair and she is no longer able to step down on it secondary to pain. She has pain when pushing in on her patella as well as the tibial plateau. She has a little bit of swelling she states that no redness, fever, nausea, chills. She does not report having any recent injury or chronic pain in her right knee. She feels like she is been working moving all stuff lately and may have overused her knee as well. She takes a daily aspirin but has not taken anything else Tylenol ibuprofen or ice or wrapped. Allergies and Home Medications Allergies Coded Allergies: Iodinated Contrast Media - Oral and (Unverified Allergy, Unknown, 12/20/15) penicillin (Verified Allergy, Unknown, HAS RECEIVED ROCEPHIN, 04/18/15) Home Medications Albuterol Sulfate 8.5 Gm Hfa.aer.ad, 2 PUFF IH Q4H PRN for WHEEZING, (Reported) Atorvastatin Calcium 10 Mg Tablet, 10 MG PO DAILY, #30 Ref 0 Prescribed by: RAQUEL CRAWFORD on 04/09/15 1616 Cyclobenzaprine HCl 5 Mg Tablet, 5 MG PO TID PRN for PAIN-MODERATE, #14 Prescribed by: JANELLE ESPITIA on 01/30/17 2150 Docusate Sodium 100 Mg Capsule, 100 MG PO BID, #60 Prescribed by: STEPHANE KIMBLE on 09/19/16 1326 Fluconazole 100 Mg Tablet, 100 MG PO UD, #8 Ref 0 2 po x 1 dose, then 1 tab po daily Prescribed by: RAQUEL CRAWFORD on 11/22/16 1610 Fluticasone/Salmeterol 1 Each Blst.w.dev, 1 EACH IH BID, (Reported) Hydrocodone/Acetaminophen 1 Each Tablet, 1 TAB PO Q4H PRN, #30 Prescribed by: STEPHANE KIMBLE on 09/19/16 1326 Metformin HCl 500 Mg Tablet, 500 MG PO BID WITH MEALS, (Reported) Naproxen 500 Mg Tablet, 500 MG PO BID PRN for PAIN-MODERATE, #30 Prescribed by: JANELLE ESPITIA on 01/30/17 2150 Omeprazole 40 Mg Capsule.dr, 40 MG PO DAILY, (Reported) Prednisone 20 Mg Tab, 20 MG PO BID for 5 Days, #10 Ref 0 Prescribed by: LAUREL SHEN on 02/09/17 1031 Tiotropium [place] 1 Inh Aerp, 1 INH IH DAILY, (Reported) Constitutional: see HPI, No chills, No diaphoresis EENTM: no symptoms reported, No eye pain, No vision loss Respiratory: No cough, No short of breath Cardiovascular: No chest pain, No syncope Gastrointestinal: No abdominal pain, No constipation, No diarrhea Skin: No pruritus, No rash Past Rvvfaci-Nfpqxl-Ydofoa Hx Patient Social History Alcohol Use: Denies Use Recreational Drug Use: No Smoking Status: Never a Smoker Former Smoker/When Quit: Apr 09, 2010 2nd Hand Smoke Exposure: No Recent Foreign Travel: No Contact w/Someone Who Travel: No Recent Infectious Disease Expo: No Recent Hopitalizations: No Immunizations Up To Date Tetanus Booster (TDap): Unknown Date of Pneumonia Vaccine: Feb 28, 2012 Date of Influenza Vaccine: Jul 16, 2016 Seasonal Allergies Seasonal Allergies: No Surgeries HX Surgeries: Yes (Partial Hysterectomy; Carpal Tunnel Nba, L KNEE SURGERY x9, Shoulder Surger) Surgeries: Hysterectomy, Orthopedic Respiratory Hx Respiratory Disorders: Yes (CPAP) Respiratory Disorders: Asthma, Sleep Apnea, COPD Cardiovascular Hx Cardiac Disorders: Yes Cardiac Disorders: High Cholesterol Neurological Hx Neurological Disorders: No Reproductive System Hx Reproductive Disorders: No (PID) Sexually Transmitted Disease: Yes (PID) HIV/AIDS: No 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 Genitourinary Hx Genitourinary Disorders: Yes (candidal infections following antibiotic treatment.) Genitourinary Disorders: UTI-Chronic Gastrointestinal Hx Gastrointestinal Disorders: Yes Gastrointestinal Disorders: Gastroesophageal Reflux, Gall Bladder Disease, Irritable Bowel Musculoskeletal Hx Musculoskeletal Disorders: Yes Musculoskeletal Disorders: Arthritis, Fibromyalgia, Chronic Back Pain Endocrine Hx Endocrine Disorders: Yes Endocrine Disorders: Diabetes, Non-Insulin dep HEENT HX ENT Disorders: Yes (GLASSES) Loss of Vision: Bilateral Hearing Impairment: Denies Cancer Hx Cancer: No Psychosocial Hx Psychiatric Problems: Yes Behavioral Health Disorders: Anxiety, Bipolar, Depression Integumentary HX Skin/Integumentary Disorder: No Blood Transfusions Hx Blood Disorders: No Adverse Reaction to a Blood Tr: No (N/A) Family Medical History Significant Family History: No Pertinent Family Hx Family Medial History: Arthritis 19 MOTHER, Onset:Unknown Asthma 19 FATHER, Onset:Unknown Cataracts 19 MOTHER, Onset:Unknown Diabetes mellitus 19 MOTHER, Onset:Unknown FH: COPD (chronic obstructive pulmonary disease) 19 FATHER, Onset:Unknown Hypercholesterolemia 19 MOTHER MS (multiple sclerosis) G8 SISTER, Onset:Unknown Physical Exam Vital Signs Vital Sign - Last 12Hours 02/09/17 08:57 Temp 98.1 Pulse 75 Resp 16 B/P (MAP) 138/74 Pulse Ox 97 O2 Delivery Room Air Capillary Refill : Less Than 3 Seconds General Appearance: WD/WN, mild distress HEENT: PERRL/EOMI, pharynx normal Hips: bilateral hip non-tender, bilateral hip normal inspection, bilateral hip normal range of motion Legs: bilateral leg non-tender, bilateral leg normal inspection Knees: left knee non-tender, left knee normal inspection, left knee normal range of motion, left knee no evidence of injury, right knee bone tenderness, right knee joint effusion (mild), right knee pain, right knee soft tissue tenderness, right knee swelling Ankles: bilateral ankle non-tender, bilateral ankle normal inspection Neurologic/Psychiatric: no motor/sensory deficits, alert, oriented x 3 Skin: normal color, warm/dry Progress/Results/Core Measures Results/Orders My Orders Orders - LAUREL SHEN Knee, Right, 3 Views (02/09/17 09:19) Ketorolac Injection (Toradol Injection) (02/09/17 09:19) Vital Signs/I&O Vital Sign - Last 12Hours 02/09/17 08:57 Temp 98.1 Pulse 75 Resp 16 B/P (MAP) 138/74 Pulse Ox 97 O2 Delivery Room Air Blood Pressure Mean: 95 Progress Note : Time: 11:34 Progress Note Patient with acute mild, stating that she had a chair hit her knee and would like an x-ray to make sure it is not broken. She is unable to step down on that knee or bend abductor abductor knee because of pain. The x-ray does not show any acute osseous fracture or lesion. She probably does have some chronic osteoarthritis and we will treat her with steroids and NSAIDs as well as rice therapy. Diagnostic Imaging Diagonstic Imaging: Xray Plain Films/CT/US/NM/MRI: knee (right) Comments No Fractures seen. VIA [facility], [facility]. [place], [place] NAME: LENNY OROSCO [facility] REC#: [id number] PT STATUS: REG ER : 1960 PHYSICIAN: LAUREL SHEN MD ADMIT DATE: 02/09/17/ER Draft Date of Exam:02/09/17 KNEE, RIGHT, 3 VIEWS INDICATION: Pain. COMPARISON: None available TECHNIQUE: Three radiographs of the right knee dated February 09, 2017. FINDINGS: There is no acute fracture or dislocation. No destructive osseous process. Minimal medial and lateral joint space narrowing. No joint effusion. No suspicious radiopaque foreign body. IMPRESSION: No acute osseous abnormality with minimal degenerative changes. Dictated on workstation # [id number] Dict: 02/09/17 0944 Trans: 02/09/17 1023 [facility] [id number] Interpreted by: LAURA SOLIS MD Electronically signed by: Reviewed: Reviewed by Me Departure Impression Impression: Primary Impression: Sprain of knee Qualified Codes: S83.91XA - Sprain of unspecified site of right knee, initial encounter Disposition: 01 HOME, SELF-CARE Condition: Improved Departure-Patient Inst. Decision time for Depature: 10:29 Referrals: NICKY THOMPSON MD (PCP/Family) Primary Care Physician Patient Instructions: Knee Sprain (DC) Add. Discharge Instructions: Your knee pain appears to be from a sprain which is not a fracture. It will respond well to taking a short course of steroids as well as 2 weeks of NSAID such as Naprosyn 2 tablets in the morning and 2 tablets at night. If you're having worsening pain or new symptoms he should report to your primary care physician or return to the ER if appropriate. You should also consider resting the knee and of a available and elevating it above the level of heart history or swelling. We should wrap the knee if there is any swelling as well as place ice to it 4 times daily for 20 minutes as needed. All discharge instructions reviewed with patient and/or family. Voiced understanding. Scripts Prednisone (Prednisone) 20 Mg Tab 20 MG PO BID for 5 Days, #10 TAB 0 Refills Prov: LAUREL SHEN 5/14/17 Copy Copies To 1: NICKY THOMPSON MD, TITUS J February 09, 2017 09:18
[2017-02-09] MEDS ORDERED: KETOROLAC 30 MG/ML VIAL IM STA (09:19)
--- NOTE | 2017-02-09 10:23 | Diagnostic Imaging Report ---
INDICATION: Pain. COMPARISON: None available TECHNIQUE: Three radiographs of the right knee dated February 09, 2017. FINDINGS: There is no acute fracture or dislocation. No destructive osseous process. Minimal medial and lateral joint space narrowing. No joint effusion. No suspicious radiopaque foreign body. IMPRESSION: No acute osseous abnormality with minimal degenerative changes. Dictated by: Dictated on workstation # [id number]
[2017-02-09] MEDS ORDERED: PRD20T PO (10:31)
[2017-02-09 10:43] VITALS: BP 138/74
== END 2017-02-09 10:43 | disposition home or self-care (01) ==
LOC: EDUNIT# 08:26 → ER 08:27
DX: S83.91XA Sprain of unspecified site of right knee, initial encounter (principal); J44.9 Chronic obstructive pulmonary disease, unspecified; E11.9 Type 2 diabetes mellitus without complications; Z79.82 Long term (current) use of aspirin; W22.03XA Walked into furniture, initial encounter; Y99.8 Other external cause status
CPT/HCPCS: 73562; 96372; 99283

== ENCOUNTER 2017-02-28 10:26 | Outpatient (CLI) | payer MEDICARE, MEDICAID ==
[~2017-02-28] VITALS: Ht 175.3 cm; Wt 126.7 kg
[2017-02-28] MEDS ORDERED: CETI10TA20 PO (10:44)
[2017-02-28] MEDS ORDERED: METF1000 PO (10:44)
[2017-02-28 10:45] VITALS: BP 121/86
== END 2017-02-28 10:57 | disposition home or self-care (01) ==
LOC: PREOP 10:26
PROVIDERS: ATTEND Orthopaedic Surgery
DX: Z01.818 Encounter for other preprocedural examination (principal); Z11.2 Encounter for screening for other bacterial diseases; M22.41 Chondromalacia patellae, right knee
CPT/HCPCS: 87081

== ENCOUNTER 2017-03-05 08:48 | Day surgery (SDC) | payer MEDICARE, MEDICAID ==
--- NOTE | 2017-02-27 06:32 | HISTORY AND PHYSICAL ---
DATE OF SERVICE: This will be for outpatient surgery on 03/05/2017 for right knee arthroscopy. HISTORY OF PRESENT ILLNESS: The patient is a 56-year-old with complaints of progressively worsening right knee pain. She reports that she injured her right knee when she struck it on a chair several weeks ago. She reports anterior knee pain, catching, locking and popping. She reports pain with kneeling, squatting and twisting. She has undergone treatment with steroids, rest and anti-inflammatories without relief and due to functional impairment, the patient has elected to proceed with surgical intervention. REVIEW OF SYSTEMS: No chest pain, no shortness of breath, no dysuria. PAST MEDICAL HISTORY: Diabetes, COPD, depression, hypocholesteremia. PAST SURGICAL HISTORY: Carpal and cubital tunnel release, left arm. FAMILY HISTORY: Diabetes, hypertension, chronic obstructive pulmonary disease, lupus. PRIMARY CARE PROVIDER: Dr. Espino. MEDICATIONS: Lipitor, omeprazole, fluoxetine, metformin, Percocet, hydrocodone, Advair. ALLERGIES: PENICILLIN, CONTRAST DYE. SOCIAL HISTORY: The patient is a former smoker. She drinks alcohol rarely. PHYSICAL EXAMINATION: GENERAL: The patient is well developed, well nourished, no acute distress. HEENT: Normocephalic, atraumatic. Pupils were equally round, reactive to light. Oropharynx is clear. NECK: Supple. No lymphadenopathy. LUNGS: Clear to auscultation bilaterally. HEART: Regular rate and rhythm. ABDOMEN: Soft, nontender, nondistended. EXTREMITIES: The right knee demonstrates patellofemoral crepitus and pain to patella . She has moderate effusion. Range of motion is 0/0/130. No varus valgus laxity, negative anterior and posterior drawer. IMPRESSION: Right knee chondromalacia. PLAN: Right knee arthroscopy and chondroplasty. The risks, benefits, alternatives, options, ramifications and recovery were discussed at length with the patient. She understands and wishes to proceed. Job ID: [id number] DocumentID: [id number] Dictated Date: 02/25/2017 16:14:30 Rn Discharge Date: 02/25/2017 16:29:48 Dictated By: KISHA BALDWIN MD
[~2017-03-05] VITALS: Ht 175.3 cm; Wt 126.7 kg
[~2017-03-05 08:48] MED LIST changes: +CETI10TA20 PO; +METF1000 PO
[2017-03-05] MEDS ORDERED: LIDOCAINE 1% 10 MG/ML 0.2 ML SYR (FOR IV START) ONE (08:52)
[2017-03-05] MEDS ORDERED: LACTATED RINGERS 1,000 ML IV PRN ×2 (08:58→09:03)
[2017-03-05] MEDS ORDERED: LIDOCAINE 1% 10 MG/ML 0.2 ML SYR (FOR IV START) INJ ONE (09:00)
[2017-03-05] MEDS ORDERED: NS (IVPB) 50 ML ONE (09:07)
[2017-03-05] MEDS ORDERED: CLINDAMYCIN 600 MG/4ML (CLEOCIN) VIAL ONE (09:07)
[2017-03-05] MEDS ORDERED: SCOPOLAMINE 1.5 MG (TRANSDERM-SCOP) PATCH TOP ONE (09:15)
[2017-03-05] MEDS ORDERED: ONDANSETRON 4 MG/2 ML (SDV) Z0FRAN IV ONE (09:15)
[2017-03-05] MEDS ORDERED: FAMOTIDINE 20MG/2ML IV (PEPCID) IV ONE (09:15)
[2017-03-05 09:23] VITALS: BP 116/81
[2017-03-05] MEDS ORDERED: CLINDAMYCIN 600 MG/NS 50 ML IVPB IV ONE ×2 (09:30)
[2017-03-05] MEDS ORDERED: CATHETER FLUSH 10 ML SYR IV PRN (09:30)
--- NOTE | 2017-03-05 09:36 | Progress Note-Pre Operative ---
Pre-Operative Progress Note H&P Reviewed The H&P was reviewed, patient examined and no changes noted. Date Seen by Provider: Mar 05, 2017 Time Seen by Provider: 09:35 Date H&P Reviewed: Mar 05, 2017 Time H&P Reviewed: 09:35 Pre-Operative Diagnosis: right knee chondromalacia of the patella KISHA BALDWIN MD Mar 05, 2017 09:36
--- NOTE | 2017-03-05 09:37 | Progress Note-Post Operative ---
Post-Operative Progess Note Surgeon (s)/Turning And Beading Machine Operator (s) Surgeon KISHA BALDWIN MD Turning And Beading Machine Operator: Boy Shepherd Pre-Operative Diagnosis right knee chondromalacia of the patella Post-Operative Diagnosis right knee chondromalacia of the patella and lateral tibial plateau Procedure & Operative Findings Date of Procedure 03/05/17 Procedure Performed/Findings right knee arthroscopic chondroplasty of the patella and lateral tibial plateau Anesthesia Type GETA Estimated Blood Loss Estimated blood loss (mL): minimal Specimens/Packing Specimens Removed none Packing: none KISHA BALDWIN MD Mar 05, 2017 09:37
[2017-03-05] MEDS ORDERED: proPOfol 200 MG/20 ML (DIPRIVAN) VIAL IV ONE (09:45)
[2017-03-05] MEDS ORDERED: LIDOCAINE PF 2% 5 ML (XYLOCAINE) VIAL ONE (09:45)
[2017-03-05] MEDS ORDERED: LACTATED RINGERS 1,000 ML IV ONE (09:45)
[2017-03-05] MEDS ORDERED: ONDANSETRON 4 MG/2 ML (SDV) Z0FRAN ONE (09:45)
[2017-03-05] MEDS ORDERED: SEVOFLURANE (ULTANE) 15 ML INHAL SOLN ONE (09:45)
[2017-03-05] MEDS ORDERED: MIDAZOLAM 2 MG/2 ML (VERSED) VIAL ONE (09:46)
[2017-03-05] MEDS ORDERED: fentaNYL INJECTION 100 MCG/2 ML AMP ONE (09:46)
[2017-03-05] MEDS ORDERED: BUPIVACAINE 0.25% 30 ML (SENSORCAINE) VIAL ONE (10:29)
[2017-03-05] MEDS ORDERED: morphine PF (DURAMORPH) 10 MG/10 ML AMP ONE (10:29)
[2017-03-05] MEDS ORDERED: HYDROcodone/APAP 7.5 MG/325 MG (LORTAB, LORCET PLUS) TABLET PO PRN (10:30)
[2017-03-05] MEDS ORDERED: MEPERIDINE (DEMEROL) INJ 50 MG/ML IVP PRN (11:00)
[2017-03-05] MEDS ORDERED: ONDANSETRON 4 MG/2 ML (SDV) Z0FRAN IVP PRN (11:00)
[2017-03-05] MEDS ORDERED: fentaNYL INJECTION 100 MCG/2 ML AMP IVP PRN (11:00)
[2017-03-05] MEDS ORDERED: morphine INJ 10 MG/ML 1ML (SYR OR VIAL) IVP PRN (11:00)
[2017-03-05] MEDS ORDERED: morphine INJ 4 MG/ML 1 ML (VIAL/SYRINGE) ONE (11:08)
[2017-03-05 11:35] VITALS: BP 132/97
[2017-03-05] MEDS ORDERED: HYDR-3816 PO (12:02)
[2017-03-05 12:05] VITALS: BP 124/91
[2017-03-05 12:30] VITALS: BP 116/81
--- NOTE | 2017-03-05 12:38 | OPERATIVE REPORT ---
DATE OF SERVICE: 03/05/2017 PREOPERATIVE DIAGNOSIS: Right knee chondromalacia of the patella. POSTOPERATIVE DIAGNOSES: 1. Right knee chondromalacia of the patella. 2. 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 PROCEDURES: 1. Right knee arthroscopic chondroplasty of the patella. 2. Right knee arthroscopic chondroplasty of the lateral tibial plateau. SURGEON: Zion Baldwin MD FITNESS PROFESSIONAL: KIKA Cantrell, who assisted throughout the procedure and closed the incisions. ANESTHESIA: General endotracheal by Dee Romero CRNA. TOURNIQUET TIME: Not applicable. ESTIMATED BLOOD LOSS: Minimal. DRAINS: None. COMPLICATIONS: None. POSTOPERATIVE PLAN: Routine arthroscopy protocol. The patient transported to the recovery room awake and in stable condition. STATEMENT OF MEDICAL NECESSITY: The patient is a 56-year-old female with complaints of right anterior knee pain, catching and locking. She had struck the anterior aspect of her right knee and since then it had mechanical symptoms. She had undergone treatment with rest and activity modifications, but due to functional impairment and failure to improve with conservative measures, the patient elected to proceed with surgical intervention. EXAMINATION UNDER ANESTHESIA: Revealed range of motion 0/0/135 with a negative Rg, negative anterior and posterior drawer, no varus or valgus laxity and a negative pivot shift. ARTHROSCOPIC FINDINGS: The patella demonstrated grade II chondral flap centrally in a 15 x 10 area. The trochlea demonstrated no gross chondral abnormalities. The medial and lateral gutters were clear. The medial compartment demonstrated no meniscal or chondral pathology. The ACL and PCL were intact. The lateral compartment demonstrated grade II chondral flap of the central portion of the tibial plateau in an 8 x 8 area. No meniscal pathology was noted. PROCEDURE IN DETAIL: After risks and benefits of the procedure were discussed and questions were answered, an informed consent was signed and placed in the chart. The operative site was confirmed in the preoperative holding area, initialed by surgeon. The patient was then transported to the operating room after adequate levels of general endotracheal anesthetic were obtained. A timeout was called, confirming the operative site and examination under anesthesia was performed with the above findings noted. The right lower extremity was then prepped and draped in the usual sterile fashion. The knee joint was injected with 60 mL of fluid and a standard inferolateral portal was placed. Under direct visualization, an inferomedial portal was created with the above findings noted. The unstable chondral flaps in the patella were debrided with the shaver back to a stable edge and the scope was redirected to the lateral compartment and the unstable chondral flaps in the lateral tibial plateau were debrided with the shaver back to a stable edge. The knee was copiously irrigated. Port sites were closed with 4-0 nylon in simple interrupted fashion. The knee was injected with Duramorph. The port sites were infiltrated with plain Marcaine. A soft dressing was applied and the patient was transported to the recovery room awake and in stable condition. Job ID: [id number] DocumentID: [id number] Dictated Date: 03/05/2017 10:50:11 Tamping Machine Operator Date: 03/05/2017 12:37:56 Dictated By: ZION BALDWIN MD
--- NOTE | 2017-03-05 13:05 | Physical Therapy Ortho Eval ---
PT Orthopedic Evaluation Type of Surgery Knee Scope RLE Prior Level of Function Current Living Status: Significant Other Locomotion (Upon Admit): Independent Established Durable Medical Eq: Front Wheeled Walker Subjective Subjective Patient in bed pre tx, agrees to PT, has pain of 2/10 in her right knee. Entry Into Home: Stairs With Railing Steps Into Home: 3 Steps Accessories: Railing Present Objective Objective right knee flexion 30 degrees, extension +5 degrees Motor Control Motor Control: Motor Control WNL Strength NT Transfer Transfers (B, C, W/C) (FIM): 4 Gait Gait Assistive Device: FWW Weight Bearing Restriction: Weight Bearing/Tolerated Location Restriction: R LE Gait (FIM): 2 Distance: 100' Gait Level of Assist: 4 Summary/Comments Patient went 100' with CGA using a rolling walker. She was very dizzy the whole time and so a step was not performed due to safety issues. Treatment Rendered Treatment: Therapeutic Exercises, Gait Train Exercise Instruction: Quad Sets, Heel Slides, Ankle Pumps Assessment/Goals Goal Time Frame: 1 Visit Plan Treatment Plan: Discharge PT/Family Agrees to Plan: Yes Time Time In: 1155 Time Out: 1215 Total Billed Treatment Time: 20 Billed Treatment Time 1 visit EVL 20' Yes PT/OT Therapy GCodes Therapy Functional Limitation: Physical Therapy Test(s)/Tool used to determine: Level of Assistance Scale Functional Limitation-Current Charge Code: MOBCUR Modifier: CJ Functional Limitation-Goal Charge Code: MOBGOAL Modifier: CJ Functional Limitation-D/C Charge Codes: MOBDC Modifier: OLVIN OCONNOR PT Mar 05, 2017 13:05
== END 2017-03-05 12:30 | disposition home or self-care (01) ==
LOC: SDC 08:48
PROVIDERS: ATTEND Orthopaedic Surgery
DX: M94.261 Chondromalacia, right knee (principal); E11.9 Type 2 diabetes mellitus without complications; J44.9 Chronic obstructive pulmonary disease, unspecified; F32.9 Major depressive disorder, single episode, unspecified; E78.00 Pure hypercholesterolemia, unspecified; Z87.891 Personal history of nicotine dependence; Z79.899 Other long term (current) drug therapy; G47.33 Obstructive sleep apnea (adult) (pediatric); J45.909 Unspecified asthma, uncomplicated; F31.9 Bipolar disorder, unspecified; K21.9 Gastro-esophageal reflux disease without esophagitis; E66.01 Morbid (severe) obesity due to excess calories; Z68.41 Body mass index [BMI] 40.0-44.9, adult
CPT/HCPCS: 82962

== ENCOUNTER → 2017-04-29 | Outpatient (CLI) | payer MEDICARE, MEDICAID ==
[~2017-04-29] MED LIST changes: +PROM25TA14 PO
--- NOTE | 2017-04-29 17:36 | Diagnostic Imaging Report ---
PA and lateral views of the chest Indication: Shortness of breath Comparison: 11/03/2016 Findings: The lungs are clear except for minimal focal left basilar atelectasis or scarring. The heart size is normal. There is no effusion or pneumothorax The mediastinum and bindu appear unremarkable. Impression: Minimal left basilar atelectasis or scarring. Dictated by: Dictated on workstation # [id number]
== END ==
LOC: RAD 15:19
PROVIDERS: ATTEND Nurse Practitioner Family
DX: R06.02 Shortness of breath (principal)
CPT/HCPCS: 71020; 87070; 87205

== ENCOUNTER 2017-04-30 14:19 | Emergency (ER) | payer MEDICARE, MEDICAID ==
[~2017-04-30] VITALS: Ht 175.3 cm; Wt 122.5 kg
[~2017-04-30 14:19] MED LIST changes: +AZIT250T12 PO; -AZIT250T5 PO; -PROM25TA14 PO
[2017-04-30] MEDS ORDERED: NS IV 1000 ML 1,000 ML IV ONE (14:34)
[2017-04-30] MEDS ORDERED: ONDANSETRON 4 MG/2 ML (SDV) Z0FRAN IVP ONE (14:45)
[2017-04-30] MEDS ORDERED: KETOROLAC 30 MG/ML VIAL IVP ONE (14:45)
[2017-04-30] MEDS ORDERED: PROMETHAZINE INJ 25 MG/ML (PHENERGAN) AMP IVP ONE (15:00)
--- NOTE | 2017-04-30 15:00 | ED General ---
General Chief Complaint: Cough/Cold/Flu Symptoms Stated Complaint: NAUSEA/FEVER Nursing Triage Note: c/o cough/congestion/bodyaches/nausea. Had a chest xray yesterday and started Levaquin 750 mg. Nursing Sepsis Screen: No Definite Risk Source of Information: Patient Exam Limitations: No Limitations History of Present Illness Time Seen by Provider: 14:21 Initial Comments This 56-year-old woman presents to the emergency room with numerous complaints including diffuse myalgia, upper back ache, pleuritic type chest pain, nausea without vomiting, productive cough, subjective fevers with chills and diaphoresis, and nasal congestion. She is tearful, moaning, and groaning. She complains of diffuse muscle cramping. She has been ill for a few days. She had a chest x-ray yesterday which was negative for pneumonia and was started on Levaquin. She also recently completed a course of steroids. Sputum culture was reportedly collected yesterday as well. Preliminary sputum culture revealed squamous cells and mixed bacteria. Allergies and Home Medications Allergies Coded Allergies: Iodinated Contrast Media - Oral and (Unverified Allergy, Unknown, 02/28/17) penicillin (Verified Allergy, Unknown, HAS RECEIVED ROCEPHIN, 02/28/17) Home Medications Albuterol Sulfate 8.5 Gm Hfa.aer.ad, 2 PUFF IH Q4H PRN for WHEEZING, (Reported) Atorvastatin Calcium 10 Mg Tablet, 10 MG PO DAILY, #30 Ref 0 Prescribed by: RAQUEL CRAWFORD on 04/09/15 1616 Cetirizine HCl 10 Mg Tablet, 10 MG PO DAILY, (Reported) Fluconazole 100 Mg Tablet, 100 MG PO UD, #8 Ref 0 2 po x 1 dose, then 1 tab po daily Prescribed by: RAQUEL CRAWFORD on 11/22/16 1610 Fluticasone/Salmeterol 1 Each Blst.w.dev, 1 EACH IH BID, (Reported) Hydrocodone/Acetaminophen 1 Each Tablet, 1 EACH PO Q4H, #30 Prescribed by: LENA ZAVALA on 03/05/17 1202 Metformin HCl 1,000 Mg Tablet, 2,000 MG PO BID, (Reported) Omeprazole 40 Mg Capsule.dr, 40 MG PO DAILY, (Reported) Promethazine HCl 25 Mg Tablet, 25 MG PO Q6H PRN for NAUSEA/VOMITING, #8 Prescribed by: LAYTON GOODSON on 04/30/17 1544 Tiotropium [place] 1 Inh Aerp, 1 INH IH DAILY, (Reported) Constitutional: see HPI EENTM: see HPI Respiratory: see HPI Cardiovascular: no symptoms reported Gastrointestinal: see HPI Genitourinary: no symptoms reported : No Musculoskeletal: no symptoms reported Skin: no symptoms reported Psychiatric/Neurological: No Symptoms Reported Hematologic/Lymphatic: No Symptoms Reported Immunological/Allergic: no symptoms reported Past Ecfrpcy-Uzfeuw-Eahnlq Hx Patient Social History Former Smoker/When Quit: Apr 09, 2010 2nd Hand Smoke Exposure: No Recent Foreign Travel: No Contact w/Someone Who Travel: No Recent Infectious Disease Expo: No Recent Hopitalizations: No Immunizations Up To Date Tetanus Booster (TDap): Unknown Date of Pneumonia Vaccine: Feb 28, 2012 Date of Influenza Vaccine: Jul 16, 2016 Seasonal Allergies Seasonal Allergies: No Surgeries HX Surgeries: Yes (Partial Hysterectomy; Carpal Tunnel Nba, L KNEE SURGERY x9, Shoulder Surger) Surgeries: Gallbladder, Hysterectomy, Orthopedic Respiratory Hx Respiratory Disorders: Yes (CPAP) Respiratory Disorders: Asthma, Sleep Apnea, COPD Cardiovascular Hx Cardiac Disorders: Yes Cardiac Disorders: High Cholesterol Neurological Hx Neurological Disorders: No Reproductive System Hx Reproductive Disorders: No (PID) Sexually Transmitted Disease: Yes (PID) HIV/AIDS: No 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 Genitourinary Hx Genitourinary Disorders: Yes Genitourinary Disorders: UTI-Chronic Gastrointestinal Hx Gastrointestinal Disorders: Yes Gastrointestinal Disorders: Gastroesophageal Reflux, Irritable Bowel Musculoskeletal Hx Musculoskeletal Disorders: Yes (RESTLESS LEG SYNDROME) Musculoskeletal Disorders: Arthritis, Fibromyalgia, Chronic Back Pain Endocrine Hx Endocrine Disorders: Yes Endocrine Disorders: Diabetes, Non-Insulin dep HEENT HX ENT Disorders: Yes (GLASSES) Loss of Vision: Bilateral Hearing Impairment: Denies Cancer Hx Cancer: No Psychosocial Hx Psychiatric Problems: Yes Behavioral Health Disorders: Anxiety, Bipolar Integumentary HX Skin/Integumentary Disorder: No Blood Transfusions Hx Blood Disorders: No Adverse Reaction to a Blood Tr: No (N/A) Family Medical History Significant Family History: No Pertinent Family Hx Family Medial History: Arthritis 19 MOTHER, Onset:Unknown Asthma 19 FATHER, Onset:Unknown Cataracts 19 MOTHER, Onset:Unknown Diabetes mellitus 19 MOTHER, Onset:Unknown FH: COPD (chronic obstructive pulmonary disease) 19 FATHER, Onset:Unknown Hypercholesterolemia 19 MOTHER MS (multiple sclerosis) G8 SISTER, Onset:Unknown Physical Exam Vital Signs Vital Sign - Last 12Hours 04/30/17 14:30 Temp 96.8 Pulse 82 B/P (MAP) 138/81 Pulse Ox 98 O2 Delivery Room Air Capillary Refill : Less Than 3 Seconds General Appearance: No Apparent Distress, WD/WN HEENT: PERRL/EOMI, Normal ENT Inspection, Other (nasal congestion) Neck: Normal Inspection, Non Tender Respiratory: Lungs Clear, Normal Breath Sounds, No Accessory Muscle Use, No Respiratory Distress Cardiovascular: Regular Rate, Rhythm, No Edema, No Murmur Gastrointestinal: Normal Bowel Sounds, Soft, Tenderness (epigastrium palpation induces nausea) Extremity: Normal Inspection, Non Tender, No Calf Tenderness, No Pedal Edema Neurologic/Psychiatric: Alert, Oriented x3, No Motor/Sensory Deficits, finisher brush II- XII Norm as Tested Skin: Normal Color, Warm/Dry Progress/Results/Core Measures Results/Orders Lab Results Laboratory Tests Test 04/30/17 15:00 Range/Units White Blood Count 10.5 4.3-11.0 10^3/uL Red Blood Count 4.83 4.35-5.85 10^6/uL Hemoglobin 13.1 11.5-16.0 G/DL Hematocrit 40 35-52 % Mean Corpuscular Volume 83 80-99 FL Mean Corpuscular Hemoglobin 27 25-34 PG Mean Corpuscular Hemoglobin Concent 33 32-36 G/DL Red Cell Distribution Width 14.0 10.0-14.5 % Platelet Count 195 130-400 10^3/uL Mean Platelet Volume 10.9 H 7.4-10.4 FL Neutrophils (%) (Auto) 69 42-75 % Lymphocytes (%) (Auto) 25 12-44 % Monocytes (%) (Auto) 5 0-12 % Eosinophils (%) (Auto) 1 0-10 % Basophils (%) (Auto) 0 0-10 % Neutrophils # (Auto) 7.3 1.8-7.8 X 10^3 Lymphocytes # (Auto) 2.6 1.0-4.0 X 10^3 Monocytes # (Auto) 0.5 0.0-1.0 X 10^3 Eosinophils # (Auto) 0.1 0.0-0.3 10^3/uL Basophils # (Auto) 0.0 0.0-0.1 10^3/uL Sodium Level 138 135-145 MMOL/L Potassium Level 3.8 3.6-5.0 MMOL/L Chloride Level 102 98-107 MMOL/L Carbon Dioxide Level 25 21-32 MMOL/L Anion Gap 11 5-14 MMOL/L Blood Urea Nitrogen 10 7-18 MG/DL Creatinine 0.82 0.60-1.30 MG/DL Estimat Glomerular Filtration Rate > 60 BUN/Creatinine Ratio 12 Glucose Level 152 H 70-105 MG/DL Calcium Level 9.7 8.5-10.1 MG/DL Magnesium Level 1.6 L 1.8-2.4 MG/DL Total Bilirubin 0.5 0.1-1.0 MG/DL Aspartate Amino Transf (AST/SGOT) 18 5-34 U/L Alanine Aminotransferase (ALT/SGPT) 29 0-55 U/L Alkaline Phosphatase 105 40-136 U/L Total Creatine Kinase 74 29-168 U/L C-Reactive Protein High Sensitivity 3.45 H 0.00-0.50 MG/DL Total Protein 7.4 6.4-8.2 GM/DL Albumin 4.0 3.2-4.5 GM/DL Micro Results Microbiology 04/30/17 Influenza Types A,B Antigen ([facility]) - Final, Complete My Orders Orders - LAYTON HERNANDEZ MD Cbc With Automated Diff (04/30/17 14:34) Comprehensive Metabolic Panel (04/30/17 14:34) Magnesium (04/30/17 14:34) Saline Lock/Iv-Start (04/30/17 14:34) Ns Iv 1000 Ml (Sodium Chloride 0.9%) (04/30/17 14:34) Ketorolac Injection (Toradol Injection) (04/30/17 14:45) Ondansetron Injection (Zofran Injectio (04/30/17 14:45) Influenza A And B Antigens (04/30/17 14:34) Chest Pa/Lat (2 View) (04/30/17 14:40) Hs C Reactive Protein (04/30/17 14:40) Promethazine Injection (Phenergan Injec (04/30/17 15:00) Creatine Kinase (04/30/17 15:01) Medications Given in ED Current Medications Medications Dose Ordered Sig/Veronika Route Start Time Stop Time Status Last Admin Dose Admin Ketorolac Tromethamine 30 mg ONCE ONCE IVP 04/30/17 14:45 04/30/17 14:46 DC 04/30/17 14:56 30 MG Promethazine HCl 12.5 mg ONCE ONCE IVP 04/30/17 15:00 04/30/17 15:01 DC 04/30/17 14:59 12.5 MG Sodium Chloride 1,000 ml @ 0 mls/hr Q0M ONCE IV 04/30/17 14:34 04/30/17 14:36 DC 04/30/17 14:56 1,000 MLS/HR Vital Signs/I&O Vital Sign - Last 12Hours 04/30/17 04/30/17 14:30 14:56 Temp 96.8 96.8 Pulse 82 B/P (MAP) 138/81 Pulse Ox 98 O2 Delivery Room Air Blood Pressure Mean: 100 Progress Note : Progress Note Workup was unremarkable. Patient was hydrated with 500 mL normal saline. Toradol and promethazine were used to help with symptoms. Patient is presumed to have a viral illness. Influenza screen was negative. Diagnostic Imaging Diagonstic Imaging: Xray Plain Films/CT/US/NM/MRI: chest Comments Chest x-ray viewed by me and report reviewed. See report below: NAME: LENNY OROSCO [facility] REC#: [id number] PT STATUS: REG ER : 1960 PHYSICIAN: LAYTON HERNANDEZ MD ADMIT DATE: 04/30/17/ER Signed Date of Exam:04/30/17 CHEST PA/LAT (2 VIEW) PA and lateral views of the chest Indication: Cough and shortness of breath Findings: The lungs are clear. The heart size is normal. There is no effusion or pneumothorax The mediastinum and bindu appear unremarkable. Impression: Unremarkable study. Dictated by: Dictated on workstation # [id number] Dict: 04/30/17 1524 Trans: 04/30/17 1525 [id number] Interpreted by: CECILY RAY MD Electronically signed by: CECILY RAY MD 04/30/17 1525 Departure Impression Impression: Primary Impression: Pleuritic chest pain Additional Impressions: Nausea Myalgia Headache Qualified Codes: R51 - Headache Disposition: 01 HOME, SELF-CARE Condition: Improved Departure-Patient Inst. Decision time for Depature: 15:30 Referrals: NICKY THOMPSON MD (PCP/Family) Primary Care Physician Patient Instructions: VIRAL SYNDROME Add. Discharge Instructions: Complete your Levaquin as prescribed. You may take ibuprofen up to 600 mg every 6 hours as needed for pain, headache, and fever. Add Tylenol ( acetaminophen) up to 1000 mg every 6 hours as needed for additional relief. Use promethazine as prescribed for nausea. All discharge instructions reviewed with patient and/or family. Voiced understanding. Scripts Promethazine HCl (Promethazine Tablet) 25 Mg Tablet 25 MG PO Q6H Y for NAUSEA/VOMITING, #8 TAB Prov: LAYTON HERNANDEZ MD 04/30/17 LAYTON HERNANDEZ MD Apr 30, 2017 15:00
[2017-04-30 15:07] LABS: BASOPHILS % (AUTO) 0 % (0-10); EOSINOPHILS # (AUTO) 0.1 10^3/uL (0.0-0.3); EOSINOPHILS % (AUTO) 1 % (0-10); LYMPHOCYTES # (AUTO) 2.6 X 10^3 (1.0-4.0); LYMPHOCYTES % (AUTO) 25 % (12-44); MEAN CORPUSCULAR HEMOGLOBIN 27 PG (25-34); MEAN CORPUSCULAR HGB CONC 33 G/DL (32-36); MEAN CORPUSCULAR VOLUME 83 FL (80-99); MEAN PLATELET VOLUME 10.9 FL (7.4-10.4); MONOCYTES # (AUTO) 0.5 X 10^3 (0.0-1.0); MONOCYTES % (AUTO) 5 % (0-12); NEUTROPHILS # (AUTO) 7.3 X 10^3 (1.8-7.8); NEUTROPHILS % (AUTO) 69 % (42-75); PLATELET COUNT 195 10^3/uL (130-400); RED BLOOD COUNT 4.83 10^6/uL (4.35-5.85); WHITE BLOOD COUNT 10.5 10^3/uL (4.3-11.0)
--- NOTE | 2017-04-30 15:27 | Diagnostic Imaging Report ---
PA and lateral views of the chest Indication: Cough and shortness of breath Findings: The lungs are clear. The heart size is normal. There is no effusion or pneumothorax The mediastinum and bindu appear unremarkable. Impression: Unremarkable study. Dictated by: Dictated on workstation # [id number]
[2017-04-30 15:30] LABS: ALANINE AMINOTRANSFERASE 29 U/L (0-55); ANION GAP 11 MMOL/L (5-14); ASPARTATE AMINO TRANSFERASE 18 U/L (5-34); BILIRUBIN,TOTAL 0.5 MG/DL (0.1-1.0); BLOOD UREA NITROGEN 10 MG/DL (7-18); BUN/CREATININE RATIO 12; CALCIUM 9.7 MG/DL (8.5-10.1); CARBON DIOXIDE 25 MMOL/L (21-32); CHLORIDE 102 MMOL/L (98-107); CREATINE KINASE 74 U/L (29-168); CREATININE SERUM 0.82 MG/DL (0.60-1.30); GFR ESTIMATED > 60; GLUCOSE 152 MG/DL (70-105); MAGNESIUM 1.6 MG/DL (1.8-2.4); POTASSIUM 3.8 MMOL/L (3.6-5.0); SODIUM 138 MMOL/L (135-145); TOTAL PROTEIN 7.4 GM/DL (6.4-8.2); hs C REACTIVE PROTEIN 3.45 MG/DL (0.00-0.50)
[2017-04-30] MEDS ORDERED: PROM25TA14 PO (15:44)
[2017-04-30 15:53] VITALS: BP 138/81
== END 2017-04-30 15:53 | disposition home or self-care (01) ==
LOC: EDUNIT# 14:19 → ER 14:21
DX: R07.81 Pleurodynia (principal); R51 Headache; R11.0 Nausea; M79.1 Myalgia; F31.9 Bipolar disorder, unspecified; E11.9 Type 2 diabetes mellitus without complications; F41.9 Anxiety disorder, unspecified; G25.81 Restless legs syndrome; M19.90 Unspecified osteoarthritis, unspecified site; K21.9 Gastro-esophageal reflux disease without esophagitis; E78.00 Pure hypercholesterolemia, unspecified; J44.9 Chronic obstructive pulmonary disease, unspecified; G47.30 Sleep apnea, unspecified; Z98.890 Other specified postprocedural states; Z87.891 Personal history of nicotine dependence; Z79.84 Long term (current) use of oral hypoglycemic drugs; Z87.2 Personal history of diseases of the skin and subcutaneous tissue; Z90.711 Acquired absence of uterus with remaining cervical stump
CPT/HCPCS: 36415; 71020; 80053; 82550; 83735; 85025; 86141; 87804; 96361; 96374; 96375

== ENCOUNTER 2017-05-07 17:57 | Emergency (ER) | payer MEDICARE, MEDICAID ==
[~2017-05-07] VITALS: Ht 177.8 cm; Wt 113.4 kg
[~2017-05-07 17:57] MED LIST changes: -AZIT250T12 PO; +AZIT250T5 PO; +PROM25TA14 PO
--- NOTE | 2017-05-07 18:26 | ED Upper Extremity ---
General Stated Complaint: PT FELL/LT ARM INJ Source: patient Exam Limitations: no limitations History of Present Illness Time seen by provider: 18:25 Initial Comments Patient fell off of her front porch just prior to arrival landing on the left arm. She now has pain and limited range of motion at the elbow. Onset: just prior to arrival Severity: moderate Pain/Injury Location: left elbow, left forearm Modifying Factors: Improves With Movement Allergies and Home Medications Allergies Coded Allergies: Iodinated Contrast Media - Oral and (Unverified Allergy, Unknown, 02/28/17) penicillin (Verified Allergy, Unknown, HAS RECEIVED ROCEPHIN, 02/28/17) Home Medications Albuterol Sulfate 8.5 Gm Hfa.aer.ad, 2 PUFF IH Q4H PRN for WHEEZING, (Reported) Atorvastatin Calcium 10 Mg Tablet, 10 MG PO DAILY, #30 Ref 0 Prescribed by: RAQUEL CRAWFORD on 04/09/15 1616 Cetirizine HCl 10 Mg Tablet, 10 MG PO DAILY, (Reported) Fluconazole 100 Mg Tablet, 100 MG PO UD, #8 Ref 0 2 po x 1 dose, then 1 tab po daily Prescribed by: RAQUEL CRAWFORD on 11/22/16 1610 Fluticasone/Salmeterol 1 Each Blst.w.dev, 1 EACH IH BID, (Reported) Hydrocodone/Acetaminophen 1 Each Tablet, 1 EACH PO Q4H, #30 Prescribed by: LENA ZAVALA on 03/05/17 1202 Metformin HCl 1,000 Mg Tablet, 2,000 MG PO BID, (Reported) Omeprazole 40 Mg Capsule.dr, 40 MG PO DAILY, (Reported) Promethazine HCl 25 Mg Tablet, 25 MG PO Q6H PRN for NAUSEA/VOMITING, #8 Prescribed by: LAYTON GOODSON on 04/30/17 1544 Tiotropium [place] 1 Inh Aerp, 1 INH IH DAILY, (Reported) Constitutional: see HPI EENTM: see HPI Respiratory: no symptoms reported Cardiovascular: no symptoms reported Genitourinary: no symptoms reported Musculoskeletal: see HPI Skin: no symptoms reported Psychiatric/Neurological: No Symptoms Reported Past Wssajdk-Nnpazc-Lzbdjp Hx Patient Social History Former Smoker/When Quit: Apr 09, 2010 2nd Hand Smoke Exposure: No Recent Foreign Travel: No Contact w/Someone Who Travel: No Recent Hopitalizations: No Immunizations Up To Date Tetanus Booster (TDap): Unknown Date of Pneumonia Vaccine: Feb 28, 2012 Date of Influenza Vaccine: Jul 16, 2016 Seasonal Allergies Seasonal Allergies: No Surgeries HX Surgeries: Yes (Partial Hysterectomy; Carpal Tunnel Nba, L KNEE SURGERY x9, Shoulder Surger) Surgeries: Gallbladder, Hysterectomy, Orthopedic Respiratory Hx Respiratory Disorders: Yes (CPAP) Respiratory Disorders: Asthma, Sleep Apnea, COPD Cardiovascular Hx Cardiac Disorders: Yes Cardiac Disorders: High Cholesterol Neurological Hx Neurological Disorders: No Reproductive System Hx Reproductive Disorders: No (PID) Sexually Transmitted Disease: Yes (PID) HIV/AIDS: No 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 Genitourinary Hx Genitourinary Disorders: Yes Genitourinary Disorders: UTI-Chronic Gastrointestinal Hx Gastrointestinal Disorders: Yes Gastrointestinal Disorders: Gastroesophageal Reflux, Irritable Bowel Musculoskeletal Hx Musculoskeletal Disorders: Yes (RESTLESS LEG SYNDROME) Musculoskeletal Disorders: Arthritis, Fibromyalgia, Chronic Back Pain Endocrine Hx Endocrine Disorders: Yes Endocrine Disorders: Diabetes, Non-Insulin dep HEENT HX ENT Disorders: Yes (GLASSES) Loss of Vision: Bilateral Hearing Impairment: Denies Cancer Hx Cancer: No Psychosocial Hx Psychiatric Problems: Yes Behavioral Health Disorders: Anxiety, Bipolar Integumentary HX Skin/Integumentary Disorder: No Blood Transfusions Hx Blood Disorders: No Adverse Reaction to a Blood Tr: No (N/A) Family Medical History Significant Family History: No Pertinent Family Hx Family Medial History: Arthritis 19 MOTHER, Onset:Unknown Asthma 19 FATHER, Onset:Unknown Cataracts 19 MOTHER, Onset:Unknown Diabetes mellitus 19 MOTHER, Onset:Unknown FH: COPD (chronic obstructive pulmonary disease) 19 FATHER, Onset:Unknown Hypercholesterolemia 19 MOTHER MS (multiple sclerosis) G8 SISTER, Onset:Unknown Physical Exam Vital Signs Vital Sign - Last 12Hours 05/07/17 18:26 Temp 98.2 Pulse 70 Resp 16 Pulse Ox 99 O2 Delivery Room Air Capillary Refill : General Appearance: WD/WN, no apparent distress HEENT: PERRL/EOMI, normal ENT inspection Neck: non-tender, full range of motion Respiratory: no respiratory distress, no accessory muscle use Gastrointestinal: non tender, soft Shoulder: normal inspection, non-tender Elbow/Forearm: normal inspection, Left, limited ROM, pain Wrist: Yes normal inspection, Yes non-tender, Yes pain Hand: normal inspection, non-tender, Left Neurologic/Tendon: normal sensation, normal motor functions, normal tendon functions Neurologic/Psychiatric: alert, normal mood/affect, oriented x 3 Skin: normal color, warm/dry Progress/Results/Core Measures Results/Orders My Orders Orders - JANELLE ESPITIA APRN Forearm, Left, 2 Views (05/07/17 18:29) Humerus, Left, 2 Views (05/07/17 18:29) Hand, Left, 3 Views (05/07/17 18:29) Vital Signs/I&O Vital Sign - Last 12Hours 05/07/17 18:26 Temp 98.2 Pulse 70 Resp 16 B/P (MAP) Pulse Ox 99 O2 Delivery Room Air Departure Impression Impression: Primary Impression: Arm contusion Disposition: HOME, SELF-CARE Condition: Stable Departure-Patient Inst. Decision time for Depature: 18:52 Referrals: NICKY THOMPSON MD (PCP/Family) Primary Care Physician Patient Instructions: Contusion (DC) Add. Discharge Instructions: 1. Return to ER for any concerns 2. See your doctor later this week 3. JANELLE ESPITIA APRN May 07, 2017 18:26
[2017-05-07 18:57] VITALS: BP 136/70
--- NOTE | 2017-05-07 19:00 | Diagnostic Imaging Report ---
Clinical indication: Patient fell and has left arm and hand pain. Exams: 1: X-ray of the left humerus, 2 views. 2: X-ray of the left forearm, 2 views. 3: X-ray of the left hand, 3 views. Comparison: None. Findings: Left hand: There is no acute fracture or dislocation. There is minimal spurring of the first IP joint. Otherwise, there is no significant bone or joint abnormality. Left forearm: There is no acute fracture or dislocation. There is no significant bone or joint abnormality. There is no elbow effusion. Left humerus: There is no acute fracture or dislocation. There is no significant bone or joint abnormality. The visualized portions of the left shoulder bones are unremarkable. Impression: 1: X-ray of the left hand, left forearm, and left humerus shows no acute fracture or dislocation. 2: Mild degenerative spurring of the first digit IP joint. Dictated by: Dictated on workstation # [id number]
== END 2017-05-07 18:57 | disposition home or self-care (01) ==
LOC: EDUNIT# 17:57 → ER 17:59
DX: S40.022A Contusion of left upper arm, initial encounter (principal); J44.9 Chronic obstructive pulmonary disease, unspecified; G47.30 Sleep apnea, unspecified; E78.00 Pure hypercholesterolemia, unspecified; K21.9 Gastro-esophageal reflux disease without esophagitis; F41.9 Anxiety disorder, unspecified; F31.9 Bipolar disorder, unspecified; Z79.84 Long term (current) use of oral hypoglycemic drugs; Z87.891 Personal history of nicotine dependence; Z90.710 Acquired absence of both cervix and uterus; Z87.19 Personal history of other diseases of the digestive system; Z87.440 Personal history of urinary (tract) infections; W17.89XA Other fall from one level to another, initial encounter; Y92.008 Other place in unspecified non-institutional (private) residence as the place of occurrence of the external cause
CPT/HCPCS: 73060; 73090; 73130; 99282

== ENCOUNTER → 2017-05-08 | Outpatient (CLI) | payer MEDICARE, MEDICAID ==
--- NOTE | 2017-05-08 09:20 | Diagnostic Imaging Report ---
EXAMINATION: Bilateral lower extremity duplex venous ultrasound. TECHNIQUE: DVT protocol. Multiple sonographic images with color Doppler and waveform interrogation were performed of the lower extremity veins, bilaterally, with compression and augmentation maneuvers. INDICATION: Bilateral leg pain and swelling. FINDINGS: The lower extremity veins from the common femoral veins to below the knee veins were examined with normal color-flow, compressibility and normal waveform demonstrated. The great saphenous vein bilaterally is patent. IMPRESSION: No evidence of DVT in either lower extremity. Dictated by: Dictated on workstation # [id number]
== END ==
LOC: RAD 08:06
PROVIDERS: ATTEND Nurse Practitioner Family
DX: M79.604 Pain in right leg (principal); M79.605 Pain in left leg; R22.43 Localized swelling, mass and lump, lower limb, bilateral; R06.00 Dyspnea, unspecified
CPT/HCPCS: 93970

== ENCOUNTER → 2017-05-26 | Outpatient (CLI) | payer MEDICARE, MEDICAID ==
--- NOTE | 2017-05-26 19:15 | Diagnostic Imaging Report ---
INDICATION: Screening. The current study was also evaluated with a Computer Aided Detection (CAD) system. Comparison made with prior examination of 07/14/2015. FINDINGS: There is a moderate amount of residual fibroglandular tissue bilaterally. There are scattered benign type calcifications and vascular calcifications. There is no dominant mass, spiculated lesion, or suspicious calcification identified. IMPRESSION: Benign. ACR BI-RADS Category 2: Benign findings. Result letter will be mailed to the patient. Note: At least 10% of breast cancer is not imaged by mammography. Dictated by: Dictated on workstation # [id number]
== END ==
LOC: RAD 09:37
PROVIDERS: ATTEND Family Medicine
DX: Z12.31 Encounter for screening mammogram for malignant neoplasm of breast (principal)
CPT/HCPCS: 77067

== ENCOUNTER 2017-08-10 11:28 | Emergency (ER) | payer MEDICARE, MEDICAID ==
[~2017-08-10] VITALS: Ht 175.3 cm; Wt 99.8 kg
--- OUTSIDE RECORDS SUMMARY | 2017-08-10 11:33 | XMS REPORT ---
Author Author NICKY THOMPSON Organization [facility], [place] Address [address] [place] [address] Care Team Providers Care Home Comfort Advisor Name Role Phone NICKY THOMPSON Unavailable PROBLEMS Type Condition ICD9-CM Code KTH69-RS Code Onset Dates Condition Status SNOMED Code Problem Cardiomegaly I51.7 Active 3587146 Problem Morbid obesity, unspecified obesity type E66.01 Active 622725800 Problem 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.33 Active 96787785 Problem Other chronic pain G89.29 Active 02546143 Problem Seasonal allergic rhinitis, unspecified allergic rhinitis trigger J30.2 Active 716345563 Problem S/P cholecystectomy Z90.49 Active 134765843 Problem 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 Active 62996950 Problem Acute exacerbation of chronic obstructive pulmonary disease (COPD) J44.1 Active 931529923 Problem Type 2 diabetes mellitus with hyperglycemia E11.65 Active [id number] ALLERGIES No Information SOCIAL HISTORY Never Assessed PLAN OF CARE VITAL SIGNS MEDICATIONS Medication Instructions Dosage Frequency Start Date End Date Duration Status Lipitor 10 mg Orally Once a day 1 tablet 24h Active Omeprazole 40 mg Orally Once a day 1 capsule 24h Active RESULTS No Results PROCEDURES No Known procedures IMMUNIZATIONS No Known Immunizations MEDICAL (GENERAL) HISTORY Type Description Date Medical History Type 2 Diabetes Medical History COPD Medical History Sleep Apnea Medical History Bipolar Disorder Medical History Chronic back pain Medical History Hypercholesterolemia Surgical History Partial hysterectomy 1985 Surgical History Left knee surgery x 9. Scopes & repairs Surgical History Carpel tunnel surgery on left wrist/arm Surgical History Carpel tunnel repair on right wrist Surgical History Left knee scope 04/2016 Surgical History Left shoulder torn ligament repair Surgical History Cholecystectomy 09/19/2016 Surgical History Right knee Scope 2017 Hospitalization History Urinary tract infection 2015 Hospitalization History past surgeries
--- OUTSIDE RECORDS SUMMARY | 2017-08-10 11:33 | XMS REPORT ---
Author Author SARMAD MCKNIGHT Organization 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 Active 10388506 Problem Morbid obesity, unspecified obesity type E66.01 Active 238710437 Problem Sleep apnea, unspecified sleep apnea type G47.30 Active 56664008 Problem Seasonal allergic rhinitis, unspecified allergic rhinitis trigger J30.2 Active 554963330 Problem Acute exacerbation of chronic obstructive pulmonary disease (COPD) J44.1 Active 717319935 Problem S/P cholecystectomy Z90.49 Active 096671746 Problem 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.33 Active 74311210 Problem Type 2 diabetes mellitus with hyperglycemia E11.65 Active 105610977498544 Problem Female genital lesion N94.9 Active 707309854 ALLERGIES Substance Reaction Event Type Date Status Penicillin V Potassium Unknown Drug Allergy Sep, Active Doxycycline Hyclate hives Drug Allergy Sep, Active IV contrast dye Unknown Non Drug Allergy Sep, Active SOCIAL HISTORY No smoking Hx information available PLAN OF CARE Activity Details Follow Up prn Reason: VITAL SIGNS Height 69 in 2016-10-03 Weight 287.4 lbs 2016-10-03 Temperature 97.7 degrees Fahrenheit 2016-10-03 Heart Rate 66 bpm 2016-10-03 Respiratory Rate 20 2016-10-03 BMI 42.44 kg/m2 2016-10-03 Blood pressure systolic 104 mmHg 2016-10-03 Blood pressure diastolic 70 mmHg 2016-10-03 MEDICATIONS Medication Instructions Dosage Frequency Start Date End Date Duration Status Singulair 10 MG Orally Once a day 1 tablet in the evening 24h Active Metformin HCl 500 MG Orally twice a day 2 tablet with meals 12h Active Lipitor 10 MG Orally Once a day 1 tablet 24h Active Flonase Allergy Relief 50 MCG/ACT Nasally Once a day 1 spray in each nostril 24h Active Omeprazole 10 MG Orally Once a day 2 capsules 24h Active Advair Diskus 250-50 MCG/DOSE Inhalation Twice a day 1 puff 12h Active Albuterol Sulfate 108 (90 Base) MCG/ACT Inhalation every 4 hrs 1 puff as needed 4h Active Prozac 40 MG Orally Once a day 1 capsule in the morning 24h Active Spiriva HandiHaler 18 MCG Active MiraLax - Orally tid 1 packet mixed with 8 ounces of fluid 8h Aug, Sep, 30 day(s) Active RESULTS Name Result Date Reference Range UA LONG DIP (IN HOUSE) 2016-10-03 Lot # [id number] Exp date 2017-10-29 Clarity clear Color dark yellow Odor none GLU negative ZANDER negative KET negative SG >=1.030 BLO negative pH 5.5 Protein negative URO 0.2 NIT negative GUSTAVO nwgative Lot # [id number] Exp date 2017-10 STREP A (IN HOUSE) 2016-10-03 STREP A negative Control + Lot # [id number] Exp date [id number] CULTURE, GENITAL 2016-10-03 Genital Culture, Routine Preliminary report Result 1 CULTURE, GENITAL 2016-10-03 Genital Culture, Routine Final report Result 1 CULTURE, VIRAL (HSV W/ TYPING) 2016-10-03 HSV Culture/Type PROCEDURES Procedure Date Ordered Related Diagnosis Body Site EKG, TRACING (IN-HOUSE) 2016-10-03 N/A URINALYSIS, AUTO, W/O SCOPE Oct 03, 2016 Office Visit, Est Pt., Level 3 Oct 03, 2016 STREP A ASSAY W/OPTIC Oct 03, 2016 ELECTROCARDIOGRAM, TRACING Oct 03, 2016 [facility] VISIT ESTABLISHED PATIENT Oct 03, 2016 LAB NOT BILLED BY [facility] Oct 03, 2016 IMMUNIZATIONS No Known Immunizations
--- OUTSIDE RECORDS SUMMARY | 2017-08-10 11:33 | XMS REPORT ---
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 Active 88900705 Problem Morbid obesity, unspecified obesity type E66.01 Active 407657233 Problem Sleep apnea, unspecified sleep apnea type G47.30 Active 79538275 Problem Seasonal allergic rhinitis, unspecified allergic rhinitis trigger J30.2 Active 818449725 Problem Acute exacerbation of chronic obstructive pulmonary disease (COPD) J44.1 Active 572903286 Problem S/P cholecystectomy Z90.49 Active 479709973 Problem 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 Active 00840550 Problem Type 2 diabetes mellitus with hyperglycemia E11.65 Active 732606704114272 Problem Female genital lesion N94.9 Active 718022666 ALLERGIES Substance Reaction Event Type Date Status Penicillin V Potassium Unknown Drug Allergy Aug, Active Doxycycline Hyclate hives Drug Allergy Aug, Active IV contrast dye Unknown Non Drug Allergy Aug, Active SOCIAL HISTORY No smoking Hx information available PLAN OF CARE Activity Details Follow Up 4 Weeks with Kenzie Reason: VITAL SIGNS Height 69 in 2016-09-24 Weight 293.1 lbs 2016-09-24 Temperature 97.8 degrees Fahrenheit 2016-09-24 Heart Rate 78 bpm 2016-09-24 Respiratory Rate 20 2016-09-24 BMI 43.28 kg/m2 2016-09-24 Blood pressure systolic 128 mmHg 2016-09-24 Blood pressure diastolic 80 mmHg 2016-09-24 MEDICATIONS Medication Instructions Dosage Frequency Start Date End Date Duration Status Advair Diskus 250-50 MCG/DOSE Inhalation Twice a day 1 puff 12h Active Spiriva HandiHaler 18 MCG Active MiraLax - Orally tid 1 packet mixed with 8 ounces of fluid 8h Aug, Sep, 30 day(s) Active Metformin HCl 500 MG Orally twice a day 2 tablet with meals 12h Active Omeprazole 10 MG Orally Once a day 2 capsules 24h Active Singulair 10 MG Orally Once a day 1 tablet in the evening 24h Active Albuterol Sulfate 108 (90 Base) MCG/ACT Inhalation every 4 hrs 1 puff as needed 4h Active Lipitor 10 MG Orally Once a day 1 tablet 24h Active Prozac 40 MG Orally Once a day 1 capsule in the morning 24h Active Flonase Allergy Relief 50 MCG/ACT Nasally Once a day 1 spray in each nostril 24h Active RESULTS No Results PROCEDURES Procedure Date Ordered Related Diagnosis Body Site EKG, TRACING (IN-HOUSE) 2016-09-24 Abnormal ELECTROCARDIOGRAM, TRACING Sep 24, 2016 Office Visit, Est Pt., Level 4 Sep 24, 2016 [facility] VISIT ESTABLISHED PATIENT Sep 24, 2016 IMMUNIZATIONS No Known Immunizations
--- OUTSIDE RECORDS SUMMARY | 2017-08-10 11:34 | XMS REPORT ---
Author Author NICKY THOMPSON Organization [facility] Address [address] [place] [address] Care Team Providers Care Data Control Clerk Name Role Phone NICKY THOMPSON Unavailable PROBLEMS Type Condition ICD9-CM Code [id number] Code Onset Dates Condition Status SNOMED Code Problem Cardiomegaly I51.7 Active 3000665 Problem 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 Active 47332131 Problem Morbid obesity, unspecified obesity type E66.01 Active 576931059 Problem Sleep apnea, unspecified sleep apnea type G47.30 Active 42920130 Problem Seasonal allergic rhinitis, unspecified allergic rhinitis trigger J30.2 Active 606531962 Problem Acute exacerbation of chronic obstructive pulmonary disease (COPD) J44.1 Active 660381618 Problem S/P cholecystectomy Z90.49 Active 826423208 Problem 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.33 Active 24436308 Problem Type 2 diabetes mellitus with hyperglycemia E11.65 Active 231488415165609 Problem Female genital lesion N94.9 Active 067771696 ALLERGIES Substance Reaction Event Type Date Status Penicillin V Potassium Unknown Drug Allergy Sep, Active Doxycycline Hyclate hives Drug Allergy Sep, Active IV contrast dye Unknown Non Drug Allergy Sep, Active SOCIAL HISTORY No smoking Hx information available PLAN OF CARE Activity Details Follow Up 1 Week with Kenzie if not improving Reason: VITAL SIGNS Height 69 in 2016-10-07 Weight 288 lbs 2016-10-07 Temperature 98 degrees Fahrenheit 2016-10-07 Heart Rate 80 bpm 2016-10-07 Respiratory Rate 22 2016-10-07 BMI 42.53 kg/m2 2016-10-07 Blood pressure systolic 110 mmHg 2016-10-07 Blood pressure diastolic 80 mmHg 2016-10-07 MEDICATIONS Medication Instructions Dosage Frequency Start Date End Date Duration Status Levaquin 750 MG Orally Once a day 1 tablet 24h Sep, Sep, 10 day(s) Active Spiriva HandiHaler 18 MCG Active Advair Diskus 250-50 MCG/DOSE Inhalation Twice a day 1 puff 12h Active Lipitor 10 MG Orally Once a day 1 tablet 24h Active Metformin HCl 500 MG Orally twice a day 2 tablet with meals 12h Active Omeprazole 10 MG Orally Once a day 2 capsules 24h Active Promethazine-Codeine 6.25-10 MG/5ML Orally every 6 hrs 5 ml as needed 6h Sep, Sep, 2 weeks Active Albuterol Sulfate 108 (90 Base) MCG/ACT Inhalation every 4 hrs 1 puff as needed 4h Active Singulair 10 MG Orally Once a day 1 tablet in the evening 24h Active Prozac 40 MG Orally Once a day 1 capsule in the morning 24h Active Flonase Allergy Relief 50 MCG/ACT Nasally Once a day 1 spray in each nostril 24h Active MiraLax - Orally tid 1 packet mixed with 8 ounces of fluid 8h Aug, Sep, 30 day(s) Active RESULTS Name Result Date Reference Range INFLUENZA A & B (IN HOUSE) 2016-10-07 INFLUENZA A negative INFLUENZA B negative Control + Lot # [id number] Exp date 12/20/18 STREP A (IN HOUSE) 2016-10-07 STREP A negative Control + Lot # [id number] Exp date 05/29/2017 PROCEDURES Procedure Date Ordered Related Diagnosis Body Site INFLUENZA ASSAY W/OPTIC Oct 07, 2016 STREP A ASSAY W/OPTIC Oct 07, 2016 Office Visit, Est Pt., Level 4 Oct 07, 2016 COUNTS INCLUDE 234 BEDS AT [facility] VISIT ESTABLISHED PATIENT Oct 07, 2016 IMMUNIZATIONS No Known Immunizations
--- OUTSIDE RECORDS SUMMARY | 2017-08-10 11:37 | XMS REPORT ---
Author Author [facility]CKNIGHT [facility] Address [address] [place] [address] Care Team Providers Care Automobile Tire Builder Name Role Phone SARMAD MCKNIGHT Unavailable PROBLEMS Type Condition ICD9-CM Code [id number] Code Onset Dates Condition Status SNOMED Code Problem Cardiomegaly I51.7 Active 7970330 Problem 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 Active 46008021 Problem Morbid obesity, unspecified obesity type E66.01 Active 322386226 Problem Sleep apnea, unspecified sleep apnea type G47.30 Active 84410802 Problem Seasonal allergic rhinitis, unspecified allergic rhinitis trigger J30.2 Active 163196292 Problem Acute exacerbation of chronic obstructive pulmonary disease (COPD) J44.1 Active 881324819 Problem S/P cholecystectomy Z90.49 Active 779874116 Problem 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.33 Active 76585702 Problem Type 2 diabetes mellitus with hyperglycemia E11.65 Active 644578742152906 Problem Female genital lesion N94.9 Active 739007053 ALLERGIES Substance Reaction Event Type Date Status Penicillin V Potassium Unknown Drug Allergy Oct, Active Doxycycline Hyclate hives Drug Allergy Oct, Active IV contrast dye Unknown Non Drug Allergy Oct, Active SOCIAL HISTORY Never Assessed PLAN OF CARE Activity Details Follow Up prn Reason: VITAL SIGNS Height 69 in 2016-11-18 Weight 282.2 lbs 2016-11-18 Temperature 97.6 degrees Fahrenheit 2016-11-18 Heart Rate 90 bpm 2016-11-18 Respiratory Rate 18 2016-11-18 BMI 41.67 kg/m2 2016-11-18 Blood pressure systolic 140 mmHg 2016-11-18 Blood pressure diastolic 82 mmHg 2016-11-18 MEDICATIONS Medication Instructions Dosage Frequency Start Date End Date Duration Status Advair Diskus 250-50 MCG/DOSE Inhalation Twice a day 1 puff 12h Active Spiriva HandiHaler 18 MCG Inhalation Once a day 1 capsule 24h Active Albuterol Sulfate 108 (90 Base) MCG/ACT Inhalation every 4 hrs 2 puff as needed 4h Active Diflucan 150 MG Orally Take one tablet today and repeat in 72 hours As directed Oct, Oct, 4 days Active Prozac 40 mg Orally Once a day 1 capsule in the morning 24h Active Singulair 10 mg Orally Once a day 1 tablet in the evening 24h Active Metformin HCl 1000 MG Orally twice a day 1 tablet 12h Active Omeprazole 40 MG Orally Once a day 1 capsule 24h Active Lipitor 10 mg Orally Once a day 1 tablet 24h Active Flonase Allergy Relief 50 MCG/ACT Nasally Once a day 1 spray in each nostril 24h Active RESULTS No Results PROCEDURES Procedure Date Ordered Result Body Site [facility] VISIT ESTABLISHED PATIENT Nov 18, 2016 IMMUNIZATIONS No Known Immunizations MEDICAL (GENERAL) HISTORY [...] Scope 2017 Hospitalization History Urinary tract infection 2014 Hospitalization History past surgeries
--- OUTSIDE RECORDS SUMMARY | 2017-08-10 11:38 | XMS REPORT ---
Author Author NICKY THOMPSON Organization [facility] Address [address] [place] [address] Care Team Providers Care Health Researcher Name Role Phone NICKY THOMPSON Unavailable PROBLEMS Type Condition ICD9-CM Code [id number] Code Onset Dates Condition Status SNOMED Code Problem Cardiomegaly I51.7 Active 3976937 Problem 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 Active 70016338 Problem Morbid obesity, unspecified obesity type E66.01 Active 090277064 Problem Sleep apnea, unspecified sleep apnea type G47.30 Active 60798093 Problem Seasonal allergic rhinitis, unspecified allergic rhinitis trigger J30.2 Active 322213389 Problem Acute exacerbation of chronic obstructive pulmonary disease (COPD) J44.1 Active 125823284 Problem S/P cholecystectomy Z90.49 Active 380474839 Problem 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.33 Active 44449050 Problem Type 2 diabetes mellitus with hyperglycemia E11.65 Active 794340303116294 Problem Female genital lesion N94.9 Active 153110391 ALLERGIES Unknown Allergies SOCIAL HISTORY No smoking Hx information available PLAN OF CARE VITAL SIGNS MEDICATIONS Medication Instructions Dosage Frequency Start Date End Date Duration Status Metformin HCl 1000 MG Orally twice a day 1 tablet 12h Active RESULTS No Results PROCEDURES No Known procedures IMMUNIZATIONS No Known Immunizations
--- OUTSIDE RECORDS SUMMARY | 2017-08-10 11:39 | XMS REPORT ---
Author Author NICKY THOMPSON Organization [facility] Address [address] [place] [address] Care Team Providers Care Supervisor Motor Vehicle Assembly Name Role Phone NICKY THOMPSON Unavailable PROBLEMS Type Condition ICD9-CM Code [id number] Code Onset Dates Condition Status SNOMED Code Problem Cardiomegaly I51.7 Active 3148445 Problem 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 Active 08308402 Problem Morbid obesity, unspecified obesity type E66.01 Active 578353606 Problem Sleep apnea, unspecified sleep apnea type G47.30 Active 65853892 Problem Seasonal allergic rhinitis, unspecified allergic rhinitis trigger J30.2 Active 589388347 Problem Acute exacerbation of chronic obstructive pulmonary disease (COPD) J44.1 Active 755751023 Problem S/P cholecystectomy Z90.49 Active 461055351 Problem 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.33 Active 47580608 Problem Type 2 diabetes mellitus with hyperglycemia E11.65 Active 974550693504874 Problem Female genital lesion N94.9 Active 859927511 ALLERGIES No Information SOCIAL HISTORY Never Assessed PLAN OF CARE VITAL SIGNS MEDICATIONS Medication Instructions Dosage Frequency Start Date End Date Duration Status Singulair 10 mg Orally Once a day 1 tablet in the evening 24h Active Metformin HCl 1000 MG Orally twice a day 1 tablet 12h Active Lipitor 10 mg Orally Once a day 1 tablet 24h Active Omeprazole 40 mg Orally Once a day 1 capsule 24h Active Prozac 40 mg Orally Once a day 1 capsule in the morning 24h Active RESULTS No Results PROCEDURES No Known procedures IMMUNIZATIONS No Known Immunizations MEDICAL (GENERAL) HISTORY Type Description Date Medical History Type 2 Diabetes Medical History COPD Medical History Sleep Apnea Medical History Bipolar Disorder Medical History Chronic back pain Medical History Hypercholesterolemia Surgical History Partial hysterectomy 1984 Surgical History Left knee surgery x 9. [...]
--- OUTSIDE RECORDS SUMMARY | 2017-08-10 11:44 | XMS REPORT ---
Author Author NICKY ESPINO [facility] Address [address] [place] [address] Care Team Providers Care Client Technologies Analyst Name Role Phone NICKY ESPINO Unavailable PROBLEMS Type Condition ICD9-CM Code [id number] Code Onset Dates Condition Status SNOMED Code Problem Cardiomegaly I51.7 Active 4110093 Problem 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 Active 14745788 Problem Morbid obesity, unspecified obesity type E66.01 Active 724740055 Problem Sleep apnea, unspecified sleep apnea type G47.30 Active 51108184 Problem Seasonal allergic rhinitis, unspecified allergic rhinitis trigger J30.2 Active 378026655 Problem Acute exacerbation of chronic obstructive pulmonary disease (COPD) J44.1 Active 014407333 Problem S/P cholecystectomy Z90.49 Active 320358985 Problem 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.33 Active 83330745 Problem Type 2 diabetes mellitus with hyperglycemia E11.65 Active 008055982547852 Problem Female genital lesion N94.9 Active 021100595 ALLERGIES Substance Reaction Event Type Date Status Penicillin V Potassium Unknown Drug Allergy Oct, Active Doxycycline Hyclate hives Drug Allergy Oct, Active IV contrast dye Unknown Non Drug Allergy Oct, Active SOCIAL HISTORY Never Assessed PLAN OF CARE Activity Details Follow Up 4 Weeks with latosha Espino pain Reason: VITAL SIGNS Height 69 in 2016-11-07 Weight 281.6 lbs 2016-11-07 Temperature 98.0 degrees Fahrenheit 2016-11-07 Heart Rate 86 bpm 2016-11-07 Respiratory Rate 18 2016-11-07 BMI 41.58 kg/m2 2016-11-07 Blood pressure systolic 136 mmHg 2016-11-07 Blood pressure diastolic 76 mmHg 2016-11-07 MEDICATIONS Medication Instructions Dosage Frequency Start Date End Date Duration Status Flonase Allergy Relief 50 MCG/ACT Nasally Once a day 1 spray in each nostril 24h Active Metformin HCl 1000 MG Orally twice a day 1 tablet 12h Active Lipitor 10 mg Orally Once a day 1 tablet 24h Active Spiriva HandiHaler 18 MCG Inhalation Once a day 1 capsule 24h Active Omeprazole 40 MG Orally Once a day 1 capsule 24h Active Albuterol Sulfate 108 (90 Base) MCG/ACT Inhalation every 4 hrs 2 puff as needed 4h Active Singulair 10 mg Orally Once a day 1 tablet in the evening 24h Active Prozac 40 mg Orally Once a day 1 capsule in the morning 24h Active Advair Diskus 250-50 MCG/DOSE Inhalation Twice a day 1 puff 12h Active Keflex 500 MG Orally every 12 hrs 1 capsule 12h Active RESULTS No Results PROCEDURES Procedure Date Ordered Result Body Site [facility] VISIT ESTABLISHED PATIENT Nov 07, 2016 IMMUNIZATIONS No Known Immunizations MEDICAL (GENERAL) [...]
--- OUTSIDE RECORDS SUMMARY | 2017-08-10 11:44 | XMS REPORT ---
Author Author NICKY THOMPSON [facility] Address [address] [place] [address] Care Team Providers Care Interactive Producer Name Role Phone NICKY THOMPSON Unavailable PROBLEMS Type Condition ICD9-CM Code [id number] Code Onset Dates Condition Status SNOMED Code Problem Cardiomegaly I51.7 Active 1397169 Problem 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 Active 92438595 Problem Morbid obesity, unspecified obesity type E66.01 Active 268284903 Problem Sleep apnea, unspecified sleep apnea type G47.30 Active 79686525 Problem Seasonal allergic rhinitis, unspecified allergic rhinitis trigger J30.2 Active 038144216 Problem Acute exacerbation of chronic obstructive pulmonary disease (COPD) J44.1 Active 992906437 Problem S/P cholecystectomy Z90.49 Active 375605802 Problem 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.33 Active 98541829 Problem Type 2 diabetes mellitus with hyperglycemia E11.65 Active 596882775558820 Problem Female genital lesion N94.9 Active 996010561 ALLERGIES Unknown Allergies SOCIAL HISTORY No smoking Hx information available PLAN OF CARE Activity Details Follow Up prn Reason: VITAL SIGNS Height 69 in 2016-10-16 Temperature 97.3 degrees Fahrenheit 2016-10-16 Heart Rate 86 bpm 2016-10-16 Respiratory Rate 18 2016-10-16 Blood pressure systolic 130 mmHg 2016-10-16 Blood pressure diastolic 90 mmHg 2016-10-16 MEDICATIONS Unknown Medications RESULTS No Results PROCEDURES Procedure Date Ordered Related Diagnosis Body Site EKG, TRACING (IN-HOUSE) 2016-10-16 N/A ELECTROCARDIOGRAM, TRACING Oct 16, 2016 Office Visit, Est Pt., Level 4 Oct 16, 2016 [facility] VISIT ESTABLISHED PATIENT Oct 16, 2016 IMMUNIZATIONS No Known Immunizations
[2017-08-10] MEDS ORDERED: ASPIRIN 81 MG CHEW (CHILDREN'S ASA) PO ONE (11:45)
--- NOTE | 2017-08-10 11:45 | ED Chest Pain ---
General Chief Complaint: Chest Pain Stated Complaint: CP Source: patient Exam Limitations: no limitations History of Present Illness Time seen by provider: 11:44 Initial Comments To ER with reports of chest pain constant since last night. Radiates through to her back. States it hurts worse to take a deep breath and she has a lymph node on the left side of her neck that is swollen and tender. 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 MOLD ENGRAVER: No NTG SL TIRE MOLD ENGRAVER: No Allergies and Home Medications Allergies Coded Allergies: Iodinated Contrast Media - Oral and (Unverified Allergy, Unknown, 02/28/17) penicillin (Verified Allergy, Unknown, HAS RECEIVED ROCEPHIN, 02/28/17) Home Medications Albuterol Sulfate 8.5 Gm Hfa.aer.ad, 2 PUFF IH Q4H PRN for WHEEZING, (Reported) Atorvastatin Calcium 10 Mg Tablet, 10 MG PO DAILY, #30 Ref 0 Prescribed by: RAQUEL CRAWFORD on 04/09/15 1616 Cetirizine HCl 10 Mg Tablet, 10 MG PO DAILY, (Reported) Fluconazole 100 Mg Tablet, 100 MG PO UD, #8 Ref 0 2 po x 1 dose, then 1 tab po daily Prescribed by: RAQUEL CRAWFORD on 11/22/16 1610 Fluticasone/Salmeterol 1 Each Blst.w.dev, 1 EACH IH BID, (Reported) Hydrocodone/Acetaminophen 1 Each Tablet, 1 EACH PO Q4H, #30 Prescribed by: LENA ZAVALA on 03/05/17 1202 Metformin HCl 1,000 Mg Tablet, 2,000 MG PO BID, (Reported) Omeprazole 40 Mg Capsule.dr, 40 MG PO DAILY, (Reported) Promethazine HCl 25 Mg Tablet, 25 MG PO Q6H PRN for NAUSEA/VOMITING, #8 Prescribed by: LAYTON GOODSON on 04/30/17 1544 Tiotropium [place] 1 Inh Aerp, 1 INH IH DAILY, (Reported) Review of Systems Constitutional: see HPI, No chills, No fever EENTM: No Symptoms Reported Respiratory: See HPI Cardiovascular: See HPI, Chest Pain Gastrointestinal: No Symptoms Reported Genitourinary: No Symptoms Reported Musculoskeletal: no symptoms reported Skin: no symptoms reported Psychiatric/Neurological: No Symptoms Reported Endocrine: No Symptoms Reported Hematologic/Lymphatic: No Symptoms Reported Past Riymwbn-Feowow-Mrivhl Hx Patient Social History Former Smoker, Quit: May 01, 2008 2nd Hand Smoke Exposure: No Recent Hopitalizations: No Immunizations Up To Date Tetanus Booster (TDap): Unknown Date of Pneumonia Vaccine: Feb 28, 2012 Date of Influenza Vaccine: Jul 16, 2016 Seasonal Allergies Seasonal Allergies: No Surgeries History of Surgeries: Yes (Partial Hysterectomy; Carpal Tunnel Nba, L KNEE SURGERY x9, Shoulder Surger) Surgeries: Gallbladder, Hysterectomy, Orthopedic Respiratory History of Respiratory Disorde: Yes (CPAP) Respiratory Disorders: Asthma, Sleep Apnea, COPD Currently Using CPAP: Yes Cardiovascular History of Cardiac Disorders: Yes Cardiac Disorders: High Cholesterol Neurological History of Neurological Disord: No Reproductive System Hx Reproductive Disorders: No (PID) Sexually Transmitted Disease: Yes (PID) HIV/AIDS: No 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 Genitourinary Genitourinary Disorders: UTI-Chronic Gastrointestinal History of Gastrointestinal Di: Yes Gastrointestinal Disorders: Gastroesophageal Reflux, Irritable Bowel Musculoskeletal History of Musculoskeletal Dis: Yes (RESTLESS LEG SYNDROME) Musculoskeletal Disorders: Arthritis, Fibromyalgia, Chronic Back Pain Endocrine History of Endocrine Disorders: Yes Endocrine Disorders: Diabetes, Non-Insulin dep HEENT Loss of Vision: Bilateral Hearing Impairment: Denies Cancer History of Cancer: No Psychosocial History of Psychiatric Problem: Yes Behavioral Health Disorders: Anxiety, Bipolar Integumentary History of Skin or Integumenta: No Blood Transfusions History of Blood Disorders: No Adverse Reaction to a Blood Tr: No (N/A) Family Medical History Significant Family History: No Pertinent Family Hx Family Medial History: Arthritis 19 MOTHER, Onset:Unknown Asthma 19 FATHER, Onset:Unknown Cataracts 19 MOTHER, Onset:Unknown Diabetes mellitus 19 MOTHER, Onset:Unknown FH: COPD (chronic obstructive pulmonary disease) 19 FATHER, Onset:Unknown Hypercholesterolemia 19 MOTHER MS (multiple sclerosis) G8 SISTER, Onset:Unknown Physical Exam Vital Signs Vital Sign - Last 12Hours 08/10/17 11:28 Temp 98.1 Pulse 70 Resp 16 B/P (MAP) 137/89 Pulse Ox 98 O2 Delivery Room Air Capillary Refill : General Appearance: No Apparent Distress, WD/WN HEENT: PERRL/EOMI, TMs Normal Neck: Full Range of Motion, Normal Inspection, Lymphadenopathy (L) (palpable tender mobile pea-sized lymph node inferior anterior cervical chain.) Respiratory: No Accessory Muscle Use, No Respiratory Distress Cardiovascular: Regular Rate, Rhythm, Normal Peripheral Pulses Gastrointestinal: Non Tender, Soft Extremity: Normal Capillary Refill Neurologic/Psychiatric: Alert, Oriented x3 Skin: Normal Color, Warm/Dry Progress/Results/Core Measures Results/Orders Lab Results Laboratory Tests Test 08/10/17 12:05 Range/Units White Blood Count 8.6 4.3-11.0 10^3/uL Red Blood Count 4.40 4.35-5.85 10^6/uL Hemoglobin 12.0 11.5-16.0 G/DL Hematocrit 36 35-52 % Mean Corpuscular Volume 82 80-99 FL Mean Corpuscular Hemoglobin 27 25-34 PG Mean Corpuscular Hemoglobin Concent 33 32-36 G/DL Red Cell Distribution Width 13.8 10.0-14.5 % Platelet Count 208 130-400 10^3/uL Mean Platelet Volume 11.4 H 7.4-10.4 FL Neutrophils (%) (Auto) 62 42-75 % Lymphocytes (%) (Auto) 32 12-44 % Monocytes (%) (Auto) 5 0-12 % Eosinophils (%) (Auto) 2 0-10 % Basophils (%) (Auto) 0 0-10 % Neutrophils # (Auto) 5.3 1.8-7.8 X 10^3 Lymphocytes # (Auto) 2.7 1.0-4.0 X 10^3 Monocytes # (Auto) 0.4 0.0-1.0 X 10^3 Eosinophils # (Auto) 0.1 0.0-0.3 10^3/uL Basophils # (Auto) 0.0 0.0-0.1 10^3/uL Prothrombin Time 12.4 12.2-14.7 SEC INR Comment 0.9 0.8-1.4 Activated Partial Thromboplast Time 27 24-35 SEC Sodium Level 137 135-145 MMOL/L Potassium Level 3.9 3.6-5.0 MMOL/L Chloride Level 104 98-107 MMOL/L Carbon Dioxide Level 23 21-32 MMOL/L Anion Gap 10 5-14 MMOL/L Blood Urea Nitrogen 11 7-18 MG/DL Creatinine 0.74 0.60-1.30 MG/DL Estimat Glomerular Filtration Rate > 60 BUN/Creatinine Ratio 15 Glucose Level 134 H 70-105 MG/DL Calcium Level 8.9 8.5-10.1 MG/DL Magnesium Level 1.6 L 1.8-2.4 MG/DL Total Bilirubin 0.4 0.1-1.0 MG/DL Aspartate Amino Transf (AST/SGOT) 17 5-34 U/L Alanine Aminotransferase (ALT/SGPT) 24 0-55 U/L Alkaline Phosphatase 102 40-136 U/L Myoglobin 29.0 10.0-92.0 NG/ML Troponin I < 0.30 <0.30 NG/ML B-Type Natriuretic Peptide 38.9 <100.0 PG/ML Total Protein 7.0 6.4-8.2 GM/DL Albumin 3.8 3.2-4.5 GM/DL My Orders Orders - JANELLE ESPITIA APRN Cbc With Automated Diff (08/10/17 11:40) Magnesium (08/10/17 11:40) Chest 1 View, Ap/Pa Only (08/10/17 11:40) Ekg Tracing (08/10/17 11:40) Cardiac Profile 1 (08/10/17 11:40) Comprehensive Metabolic Panel (08/10/17 11:40) Myoglobin Serum (08/10/17 11:40) Protime With Inr (08/10/17 11:40) Partial Thromboplastin Time (08/10/17 11:40) O2 (08/10/17 11:40) Monitor-Rhythm Ecg Trace Only (08/10/17 11:40) Lipid Panel (08/11/17 06:00) Aspirin Chewable Tablet (Baby Aspirin Ch (08/10/17 11:45) Saline Lock/Iv-Start (08/10/17 11:40) BNP (08/10/17 11:40) Medications Given in ED Current Medications Medications Dose Ordered Sig/Veronika Route Start Time Stop Time Status Last Admin Dose Admin Aspirin 324 mg ONCE ONCE PO 08/10/17 11:45 08/10/17 11:46 DC 08/10/17 12:08 324 MG Vital Signs/I&O Vital Sign - Last 12Hours 08/10/17 11:28 Temp 98.1 Pulse 70 Resp 16 B/P (MAP) 137/89 Pulse Ox 98 O2 Delivery Room Air Departure Communication (Admissions) Progress Notes Troponin is negative and there are no EKG changes despite 12+ hours of constant chest pain Impression Impression: Primary Impression: Chest pain Additional Impression: Malaise Disposition: 01 HOME, SELF-CARE Condition: Stable Departure-Patient Inst. Decision time for Depature: 12:42 Referrals: NICKY THOMPSON MD (PCP/Family) Primary Care Physician Patient Instructions: Chest Pain (DC) Add. Discharge Instructions: 1. Use Tylenol and Motrin for pain control at home 2. Return to ER for any concerns 3. Follow-up with your doctor this week All discharge instructions reviewed with patient and/or family. Voiced understanding. JANELLE ESPITIA APRN Aug 10, 2017 11:45
--- OUTSIDE RECORDS SUMMARY | 2017-08-10 11:45 | XMS REPORT ---
Author Author NICKY THOMPSON Organization [facility] Address [address] [place] [address] Care Team Providers Care Oracle Hyperion Consultant Name Role Phone NICKY THOMPSON Unavailable PROBLEMS Type Condition ICD9-CM Code [id number] Code Onset Dates Condition Status SNOMED Code Problem Cardiomegaly I51.7 Active 2815878 Problem 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 Active 79304127 Problem Morbid obesity, unspecified obesity type E66.01 Active 399631349 Problem Sleep apnea, unspecified sleep apnea type G47.30 Active 40004531 Problem Seasonal allergic rhinitis, unspecified allergic rhinitis trigger J30.2 Active 694055684 Problem Acute exacerbation of chronic obstructive pulmonary disease (COPD) J44.1 Active 317350410 Problem S/P cholecystectomy Z90.49 Active 713476432 Problem 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
--- OUTSIDE RECORDS SUMMARY | 2017-08-10 11:45 | XMS REPORT ---
Author Author NICKY THOMPSON Organization [facility] Address [address] [place] [address] Care Team Providers Care Manual Arts Teacher Name Role Phone NICKY THOMPSON Unavailable PROBLEMS Type Condition ICD9-CM Code MAM24-IP Code Onset Dates Condition Status SNOMED Code Problem Cardiomegaly I51.7 Active 5281425 Problem 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 Active 23366977 Problem Morbid obesity, unspecified obesity type E66.01 Active 682404726 Problem Sleep apnea, unspecified sleep apnea type G47.30 Active 95662566 Problem Seasonal allergic rhinitis, unspecified allergic rhinitis trigger J30.2 Active 635588932 Problem Acute exacerbation of chronic obstructive pulmonary disease (COPD) J44.1 Active 776560550 Problem S/P cholecystectomy Z90.49 Active 169863106 Problem 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.33 Active 87546229 Problem Type 2 diabetes mellitus with hyperglycemia E11.65 Active 999420421763151 Problem Female genital lesion N94.9 Active 311233721 ALLERGIES Substance Reaction Event Type Date Status Penicillin V Potassium Unknown Drug Allergy Nov, Active Doxycycline Hyclate hives Drug Allergy Nov, Active IV contrast dye Unknown Non Drug Allergy Nov, Active SOCIAL HISTORY Never Assessed PLAN OF CARE Activity Details Follow Up 3 Months with Kenzie Reason: VITAL SIGNS Height 69 in 2016-12-02 Weight 277.8 lbs 2016-12-02 Temperature 97.6 degrees Fahrenheit 2016-12-02 Heart Rate 80 bpm 2016-12-02 Respiratory Rate 20 2016-12-02 BMI 41.02 kg/m2 2016-12-02 Blood pressure systolic 136 mmHg 2016-12-02 Blood pressure diastolic 78 mmHg 2016-12-02 MEDICATIONS Medication Instructions Dosage Frequency Start Date End Date Duration Status Singulair 10 mg Orally Once a day 1 tablet in the evening 24h Active Flonase Allergy Relief 50 MCG/ACT Nasally Once a day 1 spray in each nostril 24h Active Spiriva HandiHaler 18 MCG Inhalation Once a day 1 capsule 24h Active Omeprazole 40 mg Orally Once a day 1 capsule 24h Active Prozac 40 mg Orally Once a day 1 capsule in the morning 24h Active Albuterol Sulfate 108 (90 Base) MCG/ACT Inhalation every 4 hrs 2 puff as needed 4h Active Metformin HCl 1000 MG Orally twice a day 1 tablet 12h Active Lipitor 10 mg Orally Once a day 1 tablet 24h Active Advair Diskus 250-50 MCG/DOSE Inhalation Twice a day 1 puff 12h Active RESULTS Name Result Date Reference Range A1C (IN HOUSE) 2016-12-02 A1C IN HOUSE 6.9 4.3 - 5.6 % Previous A1c 8.1 Lot [id number] Exp date 07/2018 PROCEDURES Procedure Date Ordered Result Body Site GLYCATED HEMOGLOBIN TEST December 02, 2016 [facility] VISIT ESTABLISHED PATIENT December 02, 2016 IMMUNIZATIONS No Known Immunizations MEDICAL (GENERAL) [...]
--- OUTSIDE RECORDS SUMMARY | 2017-08-10 11:47 | XMS REPORT ---
Author Author NICKY THOMPSON Organization [facility] Address [address] [place] [address] Care Team Providers Care Air Launch Weapons Technician Name Role Phone NICKY THOMPSON Unavailable PROBLEMS Type Condition ICD9-CM Code ERV92-ST Code Onset Dates Condition Status SNOMED Code Problem Cardiomegaly I51.7 Active 5438365 Problem 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 Active 65935824 Problem Morbid obesity, unspecified obesity type E66.01 Active 534103635 Problem Sleep apnea, unspecified sleep apnea type G47.30 Active 51963950 Problem Seasonal allergic rhinitis, unspecified allergic rhinitis trigger J30.2 Active 187712808 Problem Acute exacerbation of chronic obstructive pulmonary disease (COPD) J44.1 Active 656108735 Problem S/P cholecystectomy Z90.49 Active 990940173 Problem 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.33 Active 68475076 Problem Type 2 diabetes mellitus with hyperglycemia E11.65 Active 324731157426070 Problem Female genital lesion N94.9 Active 197615375 ALLERGIES Unknown Allergies SOCIAL HISTORY No smoking Hx information available PLAN OF CARE VITAL SIGNS MEDICATIONS Medication Instructions Dosage Frequency Start Date End Date Duration Status Albuterol Sulfate 108 (90 Base) MCG/ACT Inhalation every 4 hrs 2 puff as needed 4h Active Singulair 10 mg Orally Once a day 1 tablet in the evening 24h Active Lipitor 10 mg Orally Once a day 1 tablet 24h Active Advair Diskus 250-50 MCG/DOSE Inhalation Twice a day 1 puff 12h Active Omeprazole 40 MG Orally Once a day 1 capsule 24h Active Prozac 40 mg Orally Once a day 1 capsule in the morning 24h Active Spiriva HandiHaler 18 MCG Inhalation Once a day 1 capsule 24h Active RESULTS No Results PROCEDURES No Known procedures IMMUNIZATIONS No Known Immunizations
--- OUTSIDE RECORDS SUMMARY | 2017-08-10 11:47 | XMS REPORT ---
Author Author NIXON MARIA Organization [facility] Address [address] [place] [address] Care Team Providers Care Hot Metal Mixer Operator Name Role Phone ALICEAMARIA Echeverria Unavailable PROBLEMS Type Condition ICD9-CM Code [id number] Code Onset Dates Condition Status SNOMED Code Problem Cardiomegaly I51.7 Active 8060551 Problem 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.33 Active 11141191 Problem Morbid obesity, unspecified obesity type E66.01 Active 613849076 Problem Sleep apnea, unspecified sleep apnea type G47.30 Active 72477632 Problem Seasonal allergic rhinitis, unspecified allergic rhinitis trigger J30.2 Active 826451016 Problem Acute exacerbation of chronic obstructive pulmonary disease (COPD) J44.1 Active 031617041 Problem S/P cholecystectomy Z90.49 Active 847653689 Problem 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 Active 30711485 Problem Type 2 diabetes mellitus with hyperglycemia E11.65 Active 483191013122404 Problem Female genital lesion N94.9 Active 428515541 ALLERGIES Substance Reaction Event Type Date Status Penicillin V Potassium Unknown Drug Allergy Aug, Active Doxycycline Hyclate hives Drug Allergy Aug, Active IV contrast dye Unknown Non Drug Allergy Aug, Active SOCIAL HISTORY No smoking Hx information available PLAN OF CARE Activity Details Follow Up prn Reason: VITAL SIGNS Height 69 in 2016-09-14 Weight 289.8 lbs 2016-09-14 Temperature 98.3 degrees Fahrenheit 2016-09-14 Heart Rate 90 bpm 2016-09-14 Respiratory Rate 22 2016-09-14 BMI 42.79 kg/m2 2016-09-14 Blood pressure systolic 130 mmHg 2016-09-14 Blood pressure diastolic 86 mmHg 2016-09-14 MEDICATIONS Medication Instructions Dosage Frequency Start Date End Date Duration Status Advair Diskus 250-50 MCG/DOSE Inhalation Twice a day 1 puff 12h Active Singulair 10 MG Orally Once a day 1 tablet in the evening 24h Active Omeprazole 10 MG Orally Once a day 2 capsules 24h Active Azithromycin 250 MG Orally Once a day 2 tablets on the first day, then 1 tablet daily for 4 days 24h Aug, Aug, 5 day(s) Active Lipitor 10 MG Orally Once a day 1 tablet 24h Active Prozac 40 MG Orally Once a day 1 capsule in the morning 24h Active Albuterol Sulfate 108 (90 Base) MCG/ACT Inhalation every 4 hrs 1 puff as needed 4h Active Spiriva HandiHaler 18 MCG Active Metformin HCl 500 MG Orally twice a day 2 tablet with meals 12h Active RESULTS Name Result Date Reference Range STREP A (IN HOUSE) 2016-09-14 STREP A positive Control + Lot # [id number] Exp date PROCEDURES Procedure Date Ordered Related Diagnosis Body Site STREP A ASSAY W/OPTIC Sep 14, 2016 [facility] VISIT ESTABLISHED PATIENT Sep 14, 2016 Office Visit, Est Pt., Level 3 Sep 14, 2016 IMMUNIZATIONS No Known Immunizations
--- OUTSIDE RECORDS SUMMARY | 2017-08-10 11:47 | XMS REPORT ---
Author Author NICKY THOMPSON [facility] Address [address] [place] [address] Care Team Providers Care Foam Rubber Fabricator Name Role Phone NICKY THOMPSON Unavailable PROBLEMS Type Condition ICD9-CM Code ATD60-TB Code Onset Dates Condition Status SNOMED Code Problem Cardiomegaly I51.7 Active 7631450 Problem 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 Active 45093220 Problem Morbid obesity, unspecified obesity type E66.01 Active 588277459 Problem Sleep apnea, unspecified sleep apnea type G47.30 Active 68739223 Problem Seasonal allergic rhinitis, unspecified allergic rhinitis trigger J30.2 Active 344980053 Problem Acute exacerbation of chronic obstructive pulmonary disease (COPD) J44.1 Active 488259046 Problem S/P cholecystectomy Z90.49 Active 788656774 Problem 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.33 Active 02799507 Problem Type 2 diabetes mellitus with hyperglycemia E11.65 Active 158517662289205 Problem Female genital lesion N94.9 Active 714821061 ALLERGIES Unknown Allergies SOCIAL HISTORY No smoking Hx information available PLAN OF CARE VITAL SIGNS MEDICATIONS Unknown Medications RESULTS No Results PROCEDURES No Known procedures IMMUNIZATIONS No Known Immunizations
--- OUTSIDE RECORDS SUMMARY | 2017-08-10 11:56 | XMS REPORT ---
Author Author NICKY THOMPSON Organization [facility] Address [address] [place] [address] Care Team Providers Care Auto Repair Shop Manager Name Role Phone NICKY THOMPSON Unavailable PROBLEMS Type Condition ICD9-CM Code VCN27-BY Code Onset Dates Condition Status SNOMED Code Problem Cardiomegaly I51.7 Active 4461357 Problem Morbid obesity, unspecified obesity type E66.01 Active 846787752 Problem 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.33 Active 28228420 Problem Other chronic pain G89.29 Active 08348972 Problem Seasonal allergic rhinitis, unspecified allergic rhinitis trigger J30.2 Active 775011447 Problem S/P cholecystectomy Z90.49 Active 263121355 Problem 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 Active 63877302 Problem Acute exacerbation of chronic obstructive pulmonary disease (COPD) J44.1 Active 993050310 Problem Type 2 diabetes mellitus with hyperglycemia E11.65 Active 018718141831744 ALLERGIES No Information SOCIAL HISTORY Never Assessed PLAN OF CARE VITAL SIGNS MEDICATIONS Medication Instructions Dosage Frequency Start Date End Date Duration Status Metformin HCl 1000 MG Orally twice a day 1 tablet 12h Active Prozac 40 mg Orally Once a day 1 capsule in the morning 24h Active Advair Diskus 250-50 MCG/DOSE Inhalation Twice a day 1 puff 12h Active RESULTS No Results PROCEDURES No [...] Cholecystectomy 09/19/2016 Surgical History Right knee Scope 2016 Hospitalization History Urinary tract infection 2014 Hospitalization History past surgeries
--- OUTSIDE RECORDS SUMMARY | 2017-08-10 11:56 | XMS REPORT ---
Author Author KYLAH PATRIC [facility] Address [address] [place] [address] Care Team Providers Care Welder Fitter Arc Name Role Phone KYLAHPATIENCE RUIZHANY Unavailable PROBLEMS Type Condition ICD9-CM Code GIQ83-VF Code Onset Dates Condition Status SNOMED Code Problem Cardiomegaly I51.7 Active 3504138 Problem 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 Active 78223597 Problem Morbid obesity, unspecified obesity type E66.01 Active 449588068 Problem Sleep apnea, unspecified sleep apnea type G47.30 Active 50839278 Problem Seasonal allergic rhinitis, unspecified allergic rhinitis trigger J30.2 Active 886987479 Problem Acute exacerbation of chronic obstructive pulmonary disease (COPD) J44.1 Active 077194222 Problem S/P cholecystectomy Z90.49 Active 743932954 Problem 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.33 Active 01543253 Problem Type 2 diabetes mellitus with hyperglycemia E11.65 Active 665222734450007 Problem Female genital lesion N94.9 Active 215919552 ALLERGIES Substance Reaction Event Type Date Status Penicillin V Potassium Unknown Drug Allergy Sep, Active Doxycycline Hyclate hives Drug Allergy Sep, Active IV contrast dye Unknown Non Drug Allergy Sep, Active SOCIAL HISTORY No smoking Hx information available PLAN OF CARE Activity Details Follow Up [address] Espino Reason:f/u abdominal pain VITAL SIGNS Height 69 in 2016-10-29 Weight 286.7 lbs 2016-10-29 Temperature 98.0 degrees Fahrenheit 2016-10-29 Heart Rate 76 bpm 2016-10-29 Respiratory Rate 20 2016-10-29 BMI 42.33 kg/m2 2016-10-29 Blood pressure systolic 142 mmHg 2016-10-29 Blood pressure diastolic 86 mmHg 2016-10-29 MEDICATIONS Medication Instructions Dosage Frequency Start Date End Date Duration Status Prozac 40 mg Orally Once a day 1 capsule in the morning 24h Active Omeprazole 40 MG Orally Once a day 1 capsule 24h Active Lipitor 10 mg Orally Once a day 1 tablet 24h Active Spiriva HandiHaler 18 MCG Inhalation Once a day 1 capsule 24h Active Metformin HCl 1000 MG Orally twice a day 1 tablet 12h Active Flonase Allergy Relief 50 MCG/ACT Nasally Once a day 1 spray in each nostril 24h Active Advair Diskus 250-50 MCG/DOSE Inhalation Twice a day 1 puff 12h Active Singulair 10 mg Orally Once a day 1 tablet in the evening 24h Active Albuterol Sulfate 108 (90 Base) MCG/ACT Inhalation every 4 hrs 2 puff as needed 4h Active RESULTS Name Result Date Reference Range UA W/CULTURE IF INDICATED (IN HOUSE) 2016-10-29 Lot # Exp date [id number] Clarity cloudy Color yellow Odor yes GLU neg ZANDER neg KET neg SG 1.030 BLO neg pH 5.0 Protein neg URO 0.2 NIT neg GUSTAVO trace Lot # Exp date CBC 2016-10-29 WBC 8.3 3.4-10.8 RBC 4.37 3.77-5.28 Hemoglobin 12.1 11.1-15.9 Hematocrit 36.7 34.0-46.6 MCV 84 79-97 MCH 27.7 26.6-33.0 MCHC 33.0 31.5-35.7 RDW 14.1 12.3-15.4 Platelets 223 150-379 Neutrophils 59 Lymphs 33 Monocytes 6 Eos 2 Basos 0 Neutrophils (Absolute) 4.9 1.4-7.0 Lymphs (Absolute) 2.7 0.7-3.1 Monocytes(Absolute) 0.5 0.1-0.9 Eos (Absolute) 0.2 0.0-0.4 Baso (Absolute) 0.0 0.0-0.2 Immature Granulocytes 0 Immature Grans (Abs) 0.0 0.0-0.1 CULTURE, URINE 2016-10-29 Urine Culture, Routine Final report Result 1 No growth CMP 2016-10-29 Glucose, Serum 149 65-99 BUN 9 6-24 Creatinine, Serum 0.74 0.57-1.00 eGFR If NonAfricn Am 93 >59 eGFR If Africn Am 107 >59 BUN/Creatinine Ratio 12 9-23 Sodium, Serum 136 134-144 Potassium, Serum 4.0 3.5-5.2 Chloride, Serum 98 96-106 Carbon Dioxide, Total 23 18-29 Calcium, Serum 9.3 8.7-10.2 Protein, Total, Serum 7.2 6.0-8.5 Albumin, Serum 4.1 3.5-5.5 Globulin, Total 3.1 1.5-4.5 A/G Ratio 1.3 1.1-2.5 Bilirubin, Total 0.3 0.0-1.2 Alkaline Phosphatase, S 109 39-117 AST (SGOT) 30 0-40 ALT (SGPT) 27 0-32 Ultrasound : Pelvic, COMPLETE (REFLEX CPT-04003) 2016-11-04 GC/CHLAM URINE (STATE) 2016-10-29 CHLAMYDIA neg GC neg PROCEDURES Procedure Date Ordered Related Diagnosis Body Site URINALYSIS, AUTO, W/O SCOPE Oct 29, 2016 No Charge Oct 29, 2016 [facility] EST[facility] PATIENT Oct 29, 2016 [facility] Oct [facility], 2016 VENIPUNCT, ROUTINE* Oct 29, 2016 Office Visit, Est Pt., Level 3 Oct 29, 2016 IMMUNIZATIONS No Known Immunizations
--- NOTE | 2017-08-10 12:08 | Diagnostic Imaging Report ---
Clinical indication: Patient with chest pain since last night. Exam: Portable chest x-ray upright view. Comparisons: Chest x-ray dated 04/30/2017. Findings: Lungs/pleura: Lungs are clear. There is no pneumothorax. There is no pleural effusion. Mediastinum: Unremarkable. Pulmonary vasculature: Unremarkable. Heart: Unremarkable. Bones/extrathoracic soft tissue: Unremarkable. Impression: There is no radiographic evidence of acute cardiopulmonary process. Dictated by: Dictated on workstation # [id number]
[2017-08-10 12:14] LABS: BASOPHILS % (AUTO) 0 % (0-10); EOSINOPHILS # (AUTO) 0.1 10^3/uL (0.0-0.3); EOSINOPHILS % (AUTO) 2 % (0-10); LYMPHOCYTES # (AUTO) 2.7 X 10^3 (1.0-4.0); LYMPHOCYTES % (AUTO) 32 % (12-44); MEAN CORPUSCULAR HEMOGLOBIN 27 PG (25-34); MEAN CORPUSCULAR HGB CONC 33 G/DL (32-36); MEAN CORPUSCULAR VOLUME 82 FL (80-99); MEAN PLATELET VOLUME 11.4 FL (7.4-10.4); MONOCYTES # (AUTO) 0.4 X 10^3 (0.0-1.0); MONOCYTES % (AUTO) 5 % (0-12); NEUTROPHILS # (AUTO) 5.3 X 10^3 (1.8-7.8); NEUTROPHILS % (AUTO) 62 % (42-75); PLATELET COUNT 208 10^3/uL (130-400); RED CELL DISTRIBUTION WIDTH 13.8 % (10.0-14.5); WHITE BLOOD COUNT 8.6 10^3/uL (4.3-11.0)
[2017-08-10 12:23] LABS: INR 0.9 (0.8-1.4); PROTHROMBIN TIME PATIENT 12.4 SEC (12.2-14.7)
[2017-08-10 12:31] LABS: ALANINE AMINOTRANSFERASE 24 U/L (0-55); ALBUMIN 3.8 GM/DL (3.2-4.5); ANION GAP 10 MMOL/L (5-14); ASPARTATE AMINO TRANSFERASE 17 U/L (5-34); BILIRUBIN,TOTAL 0.4 MG/DL (0.1-1.0); BLOOD UREA NITROGEN 11 MG/DL (7-18); BUN/CREATININE RATIO 15; CALCIUM 8.9 MG/DL (8.5-10.1); CARBON DIOXIDE 23 MMOL/L (21-32); CHLORIDE 104 MMOL/L (98-107); CREATININE SERUM 0.74 MG/DL (0.60-1.30); GFR ESTIMATED > 60; GLUCOSE 134 MG/DL (70-105); MAGNESIUM 1.6 MG/DL (1.8-2.4); POTASSIUM 3.9 MMOL/L (3.6-5.0); SODIUM 137 MMOL/L (135-145)
[2017-08-10 12:54] VITALS: BP 124/80
== END 2017-08-10 12:54 | disposition home or self-care (01) ==
LOC: EDUNIT# 11:28 → ER 11:29
DX: R07.9 Chest pain, unspecified (principal); R53.81 Other malaise; J44.9 Chronic obstructive pulmonary disease, unspecified; G47.30 Sleep apnea, unspecified; E78.00 Pure hypercholesterolemia, unspecified; K21.9 Gastro-esophageal reflux disease without esophagitis; F41.9 Anxiety disorder, unspecified; F31.9 Bipolar disorder, unspecified; Z87.19 Personal history of other diseases of the digestive system; Z87.448 Personal history of other diseases of urinary system; Z79.84 Long term (current) use of oral hypoglycemic drugs; Z87.891 Personal history of nicotine dependence; Z90.711 Acquired absence of uterus with remaining cervical stump
CPT/HCPCS: 36415; 71010; 80053; 83735; 83874; 83880; 84484; 85025; 85610; 85730; 93005; 93041

== ENCOUNTER 2017-09-13 15:02 | Emergency (ER) | payer MEDICARE, MEDICAID ==
[~2017-09-13] VITALS: Ht 175.3 cm; Wt 126.1 kg
[~2017-09-13 15:02] MED LIST changes: +AZIT250T12 PO; -AZIT250T5 PO; +NAPR-1071 PO; -NAPR500T PO
--- OUTSIDE RECORDS SUMMARY | 2017-09-13 15:12 | XMS REPORT ---
Author Author SARMAD MCKNIGHT [facility] Address [address] [place] [address] Care Team Providers Care Camp Advisor Name Role Phone SARMAD MCKNIGHT Unavailable PROBLEMS Type Condition ICD9-CM Code [id number] Code Onset Dates Condition Status SNOMED Code Problem Cardiomegaly I51.7 Active 8919406 Problem Morbid obesity, unspecified obesity type E66.01 Active 624476623 Problem 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.33 Active 78756630 Problem Other chronic pain G89.29 Active 96721793 Problem Seasonal allergic rhinitis, unspecified allergic rhinitis trigger J30.2 Active 704608427 Problem S/P cholecystectomy Z90.49 Active 471719014 Problem 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 Active 91218538 Problem Acute exacerbation of chronic obstructive pulmonary disease (COPD) J44.1 Active 733232657 Problem Type 2 diabetes mellitus with hyperglycemia E11.65 Active [id number] ALLERGIES Substance Reaction Event Type Date Status Penicillin V Potassium Unknown Drug Allergy January, Active Doxycycline Hyclate hives Drug Allergy January, Active IV contrast dye Unknown Non Drug Allergy January, Active SOCIAL HISTORY Never Assessed PLAN OF CARE Activity Details Follow Up prn Reason: VITAL SIGNS Height 69 in 2017-01-27 Weight 285.4 lbs 2017-01-27 Temperature 97.2 degrees Fahrenheit 2017-01-27 Heart Rate 102 bpm 2017-01-27 Respiratory Rate 22 2017-01-27 Oximetry on room air:96 % 2017-01-27 BMI 42.14 kg/m2 2017-01-27 Blood pressure systolic 130 mmHg 2017-01-27 Blood pressure diastolic 78 mmHg 2017-01-27 MEDICATIONS Medication Instructions Dosage Frequency Start Date End Date Duration Status Spiriva HandiHaler 18 MCG Inhalation Once a day 1 capsule 24h Active Flonase Allergy Relief 50 MCG/ACT Nasally Once a day 1 spray in each nostril 24h Active Albuterol Sulfate 108 (90 Base) MCG/ACT Inhalation every 4 hrs 2 puff as needed 4h Active Omeprazole 40 mg Orally Once a day 1 capsule 24h Active Azithromycin 250 MG Orally Once a day 2 tablets on the first day, then 1 tablet daily for 4 days 24h January, January, 5 day(s) Active Metformin HCl 1000 MG Orally twice a day 1 tablet 12h Active Lipitor 10 mg Orally Once a day 1 tablet 24h Active Advair Diskus 250-50 MCG/DOSE Inhalation Twice a day 1 puff 12h Active PredniSONE 20 MG Orally Once a day 2 tablet 24h January, January, 5 days Active Singulair 10 mg Orally Once a day 1 tablet in the evening 24h Active Prozac 40 mg Orally Once a day 1 capsule in the morning 24h Active RESULTS No Results PROCEDURES Procedure Date Ordered Result Body Site MEASURE BLOOD OXYGEN LEVEL January 27, 2017 [facility] VISIT ESTABLISHED PATIENT January 27, 2017 IMMUNIZATIONS No Known Immunizations MEDICAL (GENERAL) HISTORY [...]
--- OUTSIDE RECORDS SUMMARY | 2017-09-13 15:14 | XMS REPORT ---
Author Author ELHAM FRANZ [facility] Address [address] [place] [address] Care Team Providers Care Telephone Maintenance Mechanic Name Role Phone ELHAM FRANZ Unavailable PROBLEMS Type Condition ICD9-CM Code [id number] Code Onset Dates Condition Status SNOMED Code Problem Cardiomegaly I51.7 Active 1771678 Problem Morbid obesity, unspecified obesity type E66.01 Active 260473206 Problem 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.33 Active 38516045 Problem Other chronic pain G89.29 Active 87713091 Problem Seasonal allergic rhinitis, unspecified allergic rhinitis trigger J30.2 Active 790802661 Problem S/P cholecystectomy Z90.49 Active 106971778 Problem 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 Active 46921944 Problem Acute exacerbation of chronic obstructive pulmonary disease (COPD) J44.1 Active 164826213 Problem Type 2 diabetes mellitus with hyperglycemia E11.65 Active [id number] ALLERGIES No Information SOCIAL HISTORY Never Assessed PLAN OF CARE VITAL SIGNS MEDICATIONS No [...]
--- OUTSIDE RECORDS SUMMARY | 2017-09-13 15:17 | XMS REPORT ---
Author Author ELHAM FRANZ Organization [facility] Address [address] [place] [address] Care Team Providers Care Carry Out Clerk And Shelf Stocker Name Role Phone ELHAM FRANZ Unavailable PROBLEMS Type Condition ICD9-CM Code [id number] Code Onset Dates Condition Status SNOMED Code Problem Cardiomegaly I51.7 Active 6021904 Problem Morbid obesity, unspecified obesity type E66.01 Active 401434990 Problem 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.33 Active 91239993 Problem Other chronic pain G89.29 Active 70406976 Problem Seasonal allergic rhinitis, unspecified allergic rhinitis trigger J30.2 Active 068414051 Problem S/P cholecystectomy Z90.49 Active 490640659 Problem 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 Active 00572945 Problem Acute exacerbation of chronic obstructive pulmonary disease (COPD) J44.1 Active 561706461 Problem Type 2 diabetes mellitus with hyperglycemia E11.65 Active [id number] ALLERGIES Substance Reaction Event Type Date Status Penicillin V Potassium Unknown Drug Allergy Feb, Active Doxycycline Hyclate hives Drug Allergy Feb, Active IV contrast dye Unknown Non Drug Allergy Feb, Active SOCIAL HISTORY Never Assessed PLAN OF CARE Activity Details Follow Up prn Reason: VITAL SIGNS Height 69 in 2017-02-27 Weight 279.6 lbs 2017-02-27 Temperature 97.0 degrees Fahrenheit 2017-02-27 Heart Rate 100 bpm 2017-02-27 Respiratory Rate 20 2017-02-27 BMI 41.29 kg/m2 2017-02-27 Blood pressure systolic 134 mmHg 2017-02-27 Blood pressure diastolic 84 mmHg 2017-02-27 MEDICATIONS Medication Instructions Dosage Frequency Start Date End Date Duration Status Singulair 10 mg Orally Once a day 1 tablet in the evening 24h Active Metformin HCl 1000 MG Orally twice a day 1 tablet 12h Active Flonase Allergy Relief 50 MCG/ACT Nasally Once a day 1 spray in each nostril 24h Active Lipitor 10 mg Orally Once a day 1 tablet 24h Active Albuterol Sulfate 108 (90 Base) MCG/ACT Inhalation every 4 hrs 2 puff as needed 4h Active Prozac 40 mg Orally Once a day 1 capsule in the morning 24h Active Cetirizine HCl 10 MG Orally Once a day 1 tablet 24h Feb, 30 day (s) Active Spiriva HandiHaler 18 MCG Inhalation Once a day 1 capsule 24h Active Advair Diskus 250-50 MCG/DOSE Inhalation Twice a day 1 puff 12h Active Omeprazole 40 mg Orally Once a day 1 capsule 24h Active RESULTS Name Result Date Reference Range A1C 2017-02-27 Hemoglobin A1c 7.5 4.8-5.6 CBC 2017-02-27 WBC 10.0 3.4-10.8 RBC 4.59 3.77-5.28 Hemoglobin 12.6 11.1-15.9 Hematocrit 38.5 34.0-46.6 MCV 84 79-97 MCH 27.5 26.6-33.0 MCHC 32.7 31.5-35.7 RDW 15.0 12.3-15.4 Platelets 254 150-379 Neutrophils 62 Lymphs 32 Monocytes 4 Eos 2 Basos 0 Neutrophils (Absolute) 6.2 1.4-7.0 Lymphs (Absolute) 3.2 0.7-3.1 Monocytes(Absolute) 0.4 0.1-0.9 Eos (Absolute) 0.2 0.0-0.4 Baso (Absolute) 0.0 0.0-0.2 Immature Granulocytes 0 Immature Grans (Abs) 0.0 0.0-0.1 CMP 2017-02-27 Glucose, Serum 173 65-99 BUN 12 6-24 Creatinine, Serum 0.79 0.57-1.00 eGFR If NonAfricn Am 85 >59 eGFR If Africn Am 98 >59 BUN/Creatinine Ratio 15 9-23 Sodium, Serum 136 134-144 Potassium, Serum 3.9 3.5-5.2 Chloride, Serum 97 96-106 Carbon Dioxide, Total 21 18-29 Calcium, Serum 9.7 8.7-10.2 Protein, Total, Serum 7.0 6.0-8.5 Albumin, Serum 4.3 3.5-5.5 Globulin, Total 2.7 1.5-4.5 A/G Ratio 1.6 1.2-2.2 Bilirubin, Total 0.3 0.0-1.2 Alkaline Phosphatase, S 103 39-117 AST (SGOT) 26 0-40 ALT (SGPT) 33 0-32 PROCEDURES Procedure Date Ordered Result Body Site [facility] 27, 2017 GLYCATED HEMOGLOBIN TEST February 27, 2017 [facility] VISIT ESTABLISHED PATIENT February 27, 2017 VENIPUNCT, ROUTINE* February 27, 2017 IMMUNIZATIONS No Known Immunizations MEDICAL [...]
--- OUTSIDE RECORDS SUMMARY | 2017-09-13 15:23 | XMS REPORT | Continuity of Care Document ---
Author Author [facility] Organization [facility] Address Unknown Phone Unavailable Allergies Active Description Code Type Severity Reaction Onset Reported/Identified Relationship to Patient Clinical Status Yes IV DYE IV DYE Unknown N/A 04/09/2015 Yes No Known Drug Allergies [id number] Drug Allergy Unknown N/A 04/09/2015 Yes penicillin [id number] Drug Allergy Unknown N/A 04/09/2015 Yes Iodinated Contrast Media - IV Dye [id number] Drug Allergy Unknown N/A 12/19 Yes Iodinated Contrast Media - Oral and [id number] Drug Allergy Unknown N/A 10/2016 Yes Iodinated Contrast- Oral and IV Dye [id number] Drug Allergy Unknown N/A 10/2016 Yes penicillin [id number] Drug Allergy Unknown HAS RECEIVED RO 02/28/2017 Medications There is no data. Problems Date Dx Coded Attending Type Code Diagnosis Diagnosed By 04/09/2015 RAQUEL ROLDAN Ot 250.00 DIAB MIRZA WO COMPL, TYPE II OR UNSPEC TY 04/09/2015 RAQUEL ROLDAN Ot 491.21 OBSTR CHRONIC BRONCHITIS, W (ACUTE) EXAC 04/09/2015 RAQUEL ROLDAN Ot 599.0 URIN TRACT INFECTION NOS 04/09/2015 RAQUEL ROLDAN Ot 729.1 MYALGIA AND MYOSITIS NOS 04/09/2015 RAQUEL ROLDAN Ot 780.60 FEVER, UNSPECIFIED 04/09/2015 RAQUEL ROLDAN Ot V15.81 HX OF PAST NONCOMPLIANCE 04/18/2015 ANDERS CARRERO DO S Ot 250.00 DIAB MIRZA WO COMPL, TYPE II OR UNSPEC TY 04/18/2015 ANDERS CARRERO DO S Ot 338.4 CHRONIC PAIN SYNDROME 04/18/2015 ANDERS CARRERO DO S Ot 496 CHR AIRWAY OBSTRUCT NEC 04/18/2015 ANDERS CARRERO DO S Ot 530.81 ESOPHAGEAL REFLUX 04/18/2015 [facility] Ot 536.2 PERSISTENT VOMITING 04/18/2015 WENDYNDER DO, ANDERS S Ot 599.0 URIN TRACT INFECTION NOS 04/18/2015 [facility] ANDERS S Ot 729.1 MYALGIA AND MYOSITIS NOS 04/18/2015 WENDYNDER DO, ANDERS S Ot 787.91 DIARRHEA 04/18/2015 ORENDER DO, ANDERS S Ot 250.00 04/18/2015 [facility] Ot 338.4 04/18/2015 [facility]ERS S Ot 496 04/18/2015 [facility]ERS S Ot 530.81 04/18/2015 [facility]ERS S Ot 536.2 04/18/2015 [facility]ERS S Ot 599.0 04/18/2015 [facility]ERS S Ot 729.1 04/18/2015 [facility]ERS S Ot 787.91 05/21/2015 LUNA LEGER MD Ot 250.00 DIAB MIRZA WO COMPL, TYPE II OR UNSPEC TY 05/21/2015 LUAN LEGER MD Ot 272.0 PURE HYPERCHOLESTEROLEM 05/21/2015 LUNA LEGER MD Ot 461.9 ACUTE SINUSITIS NOS 05/21/2015 LUNA LEGER MD Ot 496 CHR AIRWAY OBSTRUCT NEC 05/21/2015 LUNA LEGER MD Ot 784.99 OTHER SYMPTOMS INVOLVING HEAD AND NECK 05/21/2015 LUNA LEGER MD Ot E11.9 TYPE 2 DIABETES MELLITUS WITHOUT COMPLIC 05/21/2015 LUNA LEGER MD Ot E78.0 PURE HYPERCHOLESTEROLEMIA 05/21/2015 LUNA LEGER MD Ot J01.90 ACUTE SINUSITIS, UNSPECIFIED 05/21/2015 LUNA LEGER MD Ot J44.9 CHRONIC OBSTRUCTIVE PULMONARY DISEASE, U 06/08/2015 RAQUEL ROLDAN Ot 112.1 CANDIDAL VULVOVAGINITIS 06/08/2015 RAQUEL ROLDAN Ot 599.0 URIN TRACT INFECTION NOS 06/08/2015 RAQUEL ROLDAN Ot 623.5 NONINFECT VAG LEUKORRHEA 06/13/2015 JANELLE ESPITIA CIGARETTE MACHINE FILLER Ot 250.00 DIAB MIRZA WO COMPL, TYPE II OR UNSPEC TY 06/13/2015 JANELLE ESPITIA APRN Ot 599.0 URIN TRACT INFECTION NOS 06/13/2015 JANELLE ESPITIA APRN Ot 789.03 ABDOMINAL PAIN, RIGHT LOWER QUADRANT 06/13/2015 JANELLE ESPITIA APRN Ot V58.69 OTH MED,LT,CURRENT USE 07/27/2015 JANELLE ESPITIA CIGARETTE MACHINE FILLER Ot F17.211 NICOTINE DEPENDENCE, CIGARETTES, IN [place] 07/27/2015 JANELLE ESPITIA APRN Ot J44.9 CHRONIC OBSTRUCTIVE PULMONARY DISEASE, U 07/27/2015 JANELLE ESPITIA APRN Ot R07.89 OTHER CHEST PAIN 07/27/2015 GELLENDER DO, EDI A Ot Z12.31 08/07/2015 GELLENDER DO, EDI A Ot Z12.31 08/08/2015 GELLENDER DO, EDI A Ot Z12.31 08/12/2015 JANELLE ESPITIA APRN Ot J18.9 PNEUMONIA, UNSPECIFIED ORGANISM 08/12/2015 JANELLE ESPITIA APRN Ot J44.9 CHRONIC OBSTRUCTIVE PULMONARY DISEASE, U 08/12/2015 JANELLE ESPITIA APRN Ot Z79.899 OTHER SKILLED NURSING (CURRENT) DRUG THERAPY 08/14/2015 GELLENDER DO, EDI A Ot Z12.31 09/14/2015 JANELLE ESPITIA APRN Ot F17.211 NICOTINE DEPENDENCE, CIGARETTES, IN [place] 09/14/2015 JANELLE ESPITIA APRN Ot J40 BRONCHITIS, NOT SPECIFIED ACUTE OR CH 09/18/2015 GELLENDER DO, EDI A Ot Z12.31 09/18/2015 NICOLASA CULLEN, KISHA Justice Ot M75.112 09/18/2015 GELLENDER DO, EDI A Ot J18.9 09/18/2015 JANELLE ESPITIA APRN Ot F17.211 09/18/2015 JANELLE ESPITIA APRN Ot J40 09/19/2015 GELLENDER DO, EDI A Ot J18.9 09/20/2015 GELLENDER DO, EDI A Ot J18.9 09/24/2015 PATRICIA CULLEN, SIERRA Brady Ot M79.1 MYALGIA 09/24/2015 PATRICIA CULLEN, SIERRA Brady Ot R05 COUGH 09/24/2015 PATRICIA CULLEN, SIERRA Brady Ot R07.81 PLEURODYNIA 10/05/2015 JANELLE ESPITIA CIGARETTE MACHINE FILLER Ot F17.211 10/05/2015 JANELLE ESPITIA CIGARETTE MACHINE FILLER Ot J40 10/11/2015 JANELLE ESPITIA CIGARETTE MACHINE FILLER Ot F17.211 10/11/2015 JANELLE ESPITIA CIGARETTE MACHINE FILLER Ot J40 10/13/2015 EDI FAUSTIN DO Ot J40 10/14/2015 DAVID CULLEN, LAYTON Spencer Ot F17.211 NICOTINE DEPENDENCE, CIGARETTES, IN [place] 10/14/2015 DAVID CULLEN, LAYTON Spencer Ot J44.9 CHRONIC OBSTRUCTIVE PULMONARY DISEASE, U 10/14/2015 DAVID CULLEN, LAYTON Spencer Ot R07.89 OTHER CHEST PAIN 10/14/2015 DAVID CULLEN, LAYTON Spencer Ot R11.0 NAUSEA 10/16/2015 EDI FAUSTIN DO Ot Z12.31 10/16/2015 KISHA BALDWIN MD Ot M75.112 10/16/2015 EDI FAUSTIN DO Ot J18.9 10/16/2015 EDI FAUSTIN DO Ot J40 10/25/2015 EDI FAUSTIN DO Ot J40 10/25/2015 KISHA BALDWIN MD Ot E11.9 TYPE 2 DIABETES MELLITUS WITHOUT COMPLIC 10/25/2015 KISHA BALDWIN MD Ot E78.0 PURE HYPERCHOLESTEROLEMIA 10/25/2015 KISHA BALDWIN MD Ot F32.9 MAJOR DEPRESSIVE DISORDER, SINGLE EPISOD 10/25/2015 KISHA BALDWIN MD Ot J44.9 CHRONIC OBSTRUCTIVE PULMONARY DISEASE, U 10/25/2015 KISHA BALDWIN MD Ot M75.102 UNSP ROTATR-CUFF TEAR/RUPTR OF LEFT SHOU 10/25/2015 KISHA BALDWIN MD Ot M94.212 CHONDROMALACIA, LEFT SHOULDER 10/25/2015 KISHA BALDWIN MD Ot S43.439A SUPERIOR GLENOID LABRUM LESION OF UNSP S 11/10/2015 KISHA CARRILLO MD Ot G47.33 OBSTRUCTIVE SLEEP APNEA (ADULT) (PEDIATR 11/13/2015 EDI FAUSTIN DO Ot Z12.31 11/13/2015 NICOLASA CULLEN, KISHA P Ot M75.112 11/13/2015 EDI FAUSTIN DO A Ot J18.9 11/13/2015 EDI FAUSTIN DO A Ot J40 11/13/2015 NICOLASA CULLEN, KISHA P Ot M75.102 11/13/2015 NICOLASA CULLEN, KISHA P Ot Z01.818 11/13/2015 NICOLASA CULLEN, KISHA P Ot Z11.2 11/13/2015 EDI FAUSTIN DO Ot Z12.31 11/13/2015 NICOLASA CULLEN, KISHA P Ot M75.112 11/13/2015 EDI FAUSTIN DO A Ot J18.9 11/13/2015 EDI FAUSTIN DO A Ot J40 11/13/2015 NICOLASA CULLEN, KISHA P Ot M75.102 11/13/2015 NICOLASA CULLEN, KISHA P Ot Z01.818 11/13/2015 NICOLASA CULLEN, KISHA P Ot Z11.2 11/18/2015 RADHA CULLEN, CHELSI Christianson Ot J40 BRONCHITIS, NOT SPECIFIED ACUTE OR CH 12/11/2015 LORENA CULLEN, KISHA P Ot R13.19 12/11/2015 LORENA CULLEN, KISHA P Ot R49.0 12/13/2015 LORENA CULLEN, KISHA P Ot R13.19 12/13/2015 LORENA CULLEN, KISHA P Ot R49.0 12/15/2015 NICOLASA CULLEN, KISHA P Ot L72.9 FOLLICULAR CYST OF THE SKIN AND SUBCUTAN 12/15/2015 NICOLASA CULLEN, KISHA P Ot Z01.818 ENCOUNTER FOR OTHER PREPROCEDURAL EXAMIN 12/16/2015 RADHA CULLEN, CHELSI A Ot J40 BRONCHITIS, NOT SPECIFIED ACUTE OR CH 12/16/2015 RADHA CULLEN, CHELSI A Ot R09.1 PLEURISY 12/18/2015 RADHA CULLEN, CHELSI Christianson Ot J40 12/18/2015 RADHA CULLEN, CHELSI A Ot R09.1 12/18/2015 RADHA CULLEN, CHELSI A Ot J40 12/18/2015 RADHA CULLEN, CHELSI A Ot R09.1 12/19/2015 LORENA CULLEN, KISHA P Ot R13.10 12/19/2015 EDI FAUSTIN DO Ot Z12.31 12/19/2015 KISHA BALDWIN MD Ot M75.112 12/19/2015 EDI FAUSTIN DO Ot J18.9 12/19/2015 EDI FAUSTIN DO Ot J40 12/19/2015 NICOLASA CULLEN, KISHA Justice Ot M75.102 12/19/2015 KISHA BALDWIN MD Ot Z01.818 12/19/2015 NICOLASA CULLEN, KISHA Justice Ot Z11.2 12/19/2015 LORENA CULLEN, KISHA Justice Ot R13.19 12/19/2015 LORENA CULLEN, KISHA Justice Ot R49.0 12/19/2015 LORENA CULLEN, KISHA Justice Ot R13.10 12/20/2015 NICOLASA CULLEN, KISHA Justice Ot E11.9 TYPE 2 DIABETES MELLITUS WITHOUT COMPLIC 12/20/2015 NICOLASA CULLEN, KISHA Justice Ot E78.0 PURE HYPERCHOLESTEROLEMIA 12/20/2015 NICOLASA CULLEN, KISHA Justice Ot J32.9 CHRONIC SINUSITIS, UNSPECIFIED 12/20/2015 NICOLASA CULLEN, KISHA Justice Ot J44.9 CHRONIC OBSTRUCTIVE PULMONARY DISEASE, U 12/20/2015 NICOLASA CULLEN, KISHA Justice Ot M67.441 GANGLION, RIGHT HAND 12/20/2015 NICOLASA CULLEN, KISHA Justice Ot Z11.2 ENCOUNTER FOR SCREENING FOR OTHER BACTER 12/20/2015 EDI FAUSTIN DO Ot R07.81 12/21/2015 KISHA BALDWIN MD Ot E11.9 12/21/2015 KISHA BALDWIN MD Ot E78.0 12/21/2015 NICOLASA CULLEN, KISHA Justice Ot J32.9 12/21/2015 KISHA BALDWIN MD Ot J44.9 12/21/2015 KISHA BALDWIN MD Ot M67.441 12/21/2015 KISHA BALDWIN MD Ot Z11.2 12/25/2015 EDI FAUSTIN DO Ot R07.81 01/01/2016 LORENA CULLEN, KISHA Justice Ot R13.10 01/12/2016 EDI FAUSTIN DO Ot R07.81 PLEURODYNIA 01/19/2016 EDI FAUSTIN DO Ot Z12.31 ENCNTR SCREEN MAMMOGRAM FOR MALIGNANT NE 01/19/2016 KISHA BALDWIN MD Ot M75.112 INCOMPLETE ROTATR-CUFF TEAR/RUPTR OF L S 01/19/2016 EDI FAUSTIN DO Ot J18.9 PNEUMONIA, UNSPECIFIED ORGANISM 01/19/2016 EDI FAUSTIN DO Ot J40 BRONCHITIS, NOT SPECIFIED ACUTE OR CH 01/19/2016 KISHA BALDWIN MD Ot M75.102 UNSP ROTATR-CUFF TEAR/RUPTR OF LEFT SHOU 01/19/2016 KISHA BALDWIN MD Ot Z01.818 ENCOUNTER FOR OTHER PREPROCEDURAL EXAMIN 01/19/2016 KISHA BALDWIN MD Ot Z11.2 ENCOUNTER FOR SCREENING FOR OTHER BACTER 01/19/2016 KISHA CARRILLO MD Ot R13.19 OTHER DYSPHAGIA 01/19/2016 KISHA CARRILLO MD Ot R49.0 DYSPHONIA 01/19/2016 KISHA CARRILLO MD Ot R13.10 DYSPHAGIA, UNSPECIFIED 01/19/2016 EDI FAUSTIN DO Ot R07.81 PLEURODYNIA 01/19/2016 JANELLE ESPITIA APRN Ot E11.9 TYPE 2 DIABETES MELLITUS WITHOUT COMPLIC 01/19/2016 JANELLE ESPITIA APRN Ot I10 ESSENTIAL (PRIMARY) HYPERTENSION 01/19/2016 JANELLE ESPITIA APRN Ot J44.9 CHRONIC OBSTRUCTIVE PULMONARY DISEASE, U 01/19/2016 JANELLE ESPITIA APRN Ot R07.89 OTHER CHEST PAIN 01/22/2016 JANELLE ESPITIA APRN Ot E11.9 TYPE 2 DIABETES MELLITUS WITHOUT COMPLIC 01/22/2016 JANELLE ESPITIA APRN Ot I10 ESSENTIAL (PRIMARY) HYPERTENSION 01/22/2016 JANELLE ESPITIA APRN Ot J44.9 CHRONIC OBSTRUCTIVE PULMONARY DISEASE, U 01/22/2016 JANELLE ESPITIA APRN Ot R07.89 OTHER CHEST PAIN 01/22/2016 EDI FAUSTIN DO Ot R07.81 PLEURODYNIA 01/26/2016 MAJOR GIPSON APRN Ot J30.9 ALLERGIC RHINITIS, UNSPECIFIED 01/26/2016 MAJOR GIPSON APRN Ot R06.02 SHORTNESS OF BREATH 01/26/2016 SIERRA GOMEZ MD Ot K76.0 FATTY (CHANGE OF) LIVER, NOT ELSEWHERE C 01/26/2016 SIERRA GOMEZ MD Ot M79.602 PAIN IN LEFT ARM 01/26/2016 SIERRA GOMEZ MD Ot M79.605 PAIN IN LEFT LEG 01/26/2016 SIERRA GOMEZ MD Ot M79.7 FIBROMYALGIA 01/26/2016 SIERRA GOMEZ MD Ot R07.89 OTHER CHEST PAIN 01/29/2016 SIERRA GOMEZ MD Ot K76.0 FATTY (CHANGE OF) LIVER, NOT ELSEWHERE C 01/29/2016 SIERRA GOMEZ MD Ot M79.602 PAIN IN LEFT ARM 01/29/2016 SIERRA GOMEZ MD Ot M79.605 PAIN IN LEFT LEG 01/29/2016 SIERRA GOMEZ MD Ot M79.7 FIBROMYALGIA 01/29/2016 SIERRA GOMEZ MD Ot R07.89 OTHER CHEST PAIN 02/06/2016 KISHA BALDWIN MD Ot L72.9 FOLLICULAR CYST OF THE SKIN AND SUBCUTAN 02/06/2016 KISHA BALDWIN MD Ot Z01.818 ENCOUNTER FOR OTHER PREPROCEDURAL EXAMIN 02/14/2016 KISHA BALDWIN MD Ot 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 02/14/2016 KISHA BALDWIN MD Ot E11.9 TYPE 2 DIABETES MELLITUS WITHOUT COMPLIC 02/14/2016 KISHA BALDWIN MD Ot Z79.899 OTHER OLERICULTURIST (CURRENT) DRUG THERAPY 02/14/2016 MAJOR GIPSON APRN Ot J30.9 ALLERGIC RHINITIS, UNSPECIFIED 02/14/2016 MAJOR GIPSON APRN Ot R06.02 SHORTNESS OF BREATH 02/15/2016 KISHA BALDWIN MD Ot 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 02/15/2016 KISHA BALDWIN MD Ot E11.9 TYPE 2 DIABETES MELLITUS WITHOUT COMPLIC 02/15/2016 KISHA BALDWIN MD Ot Z79.899 OTHER OLERICULTURIST (CURRENT) DRUG THERAPY 02/16/2016 SIERRA GOMEZ MD Ot K76.0 FATTY (CHANGE OF) LIVER, NOT ELSEWHERE C 02/16/2016 SIERRA GOMEZ MD Ot M79.602 PAIN IN LEFT ARM 02/16/2016 SIERRA GOMEZ MD Ot M79.605 PAIN IN LEFT LEG 02/16/2016 SIERRA GOMEZ MD Ot M79.7 FIBROMYALGIA 02/16/2016 SIERRA GOMEZ MD Ot R07.89 OTHER CHEST PAIN 02/21/2016 GELLENDER DO, EDI Christianson Ot Z12.31 ENCNTR SCREEN MAMMOGRAM FOR MALIGNANT NE 02/21/2016 KISHA BALDWIN MD Ot M75.112 INCOMPLETE ROTATR-CUFF TEAR/RUPTR OF L S 02/21/2016 GELLENDER DO, EDI Christianson Ot J18.9 PNEUMONIA, UNSPECIFIED ORGANISM 02/21/2016 GELLENDER DO, EDI Christianson Ot J40 BRONCHITIS, NOT SPECIFIED ACUTE OR CH 02/21/2016 KISHA BALDWIN MD Ot M75.102 UNSP ROTATR-CUFF TEAR/RUPTR OF LEFT SHOU 02/21/2016 KISHA BALDWIN MD Ot Z01.818 ENCOUNTER FOR OTHER PREPROCEDURAL EXAMIN 02/21/2016 KISHA BALDWIN MD Ot Z11.2 ENCOUNTER FOR SCREENING FOR OTHER BACTER 02/21/2016 KISHA CARRILLO MD Ot R13.19 OTHER DYSPHAGIA 02/21/2016 KISHA CARRILLO MD Ot R49.0 DYSPHONIA 02/21/2016 KISHA CARRILLO MD Ot R13.10 DYSPHAGIA, UNSPECIFIED 02/21/2016 GELLENDER DO, EDI Christianson Ot R07.81 PLEURODYNIA 02/21/2016 MAJOR GIPSON APRN Ot J30.9 ALLERGIC RHINITIS, UNSPECIFIED 02/21/2016 MAJOR GIPSON APRN Ot R06.02 SHORTNESS OF BREATH 02/22/2016 GELLENDER DOEDI Ot Z12.31 ENCNTR SCREEN MAMMOGRAM FOR MALIGNANT NE 02/22/2016 KISHA BALDWIN MD Ot M75.112 INCOMPLETE ROTATR-CUFF TEAR/RUPTR OF L S 02/22/2016 GELLENDER DO, EDI Christianson Ot J18.9 PNEUMONIA, UNSPECIFIED ORGANISM 02/22/2016 GELLENDER DO, EDI Christianson Ot J40 BRONCHITIS, NOT SPECIFIED ACUTE OR CH 02/22/2016 KISHA BALDWIN MD Ot M75.102 UNSP ROTATR-CUFF TEAR/RUPTR OF LEFT SHOU 02/22/2016 KISHA BALDWIN MD Ot Z01.818 ENCOUNTER FOR OTHER PREPROCEDURAL EXAMIN 02/22/2016 KISHA BALDWIN MD Ot Z11.2 ENCOUNTER FOR SCREENING FOR OTHER BACTER 02/22/2016 KISHA CARRILLO MD Ot R13.19 OTHER DYSPHAGIA 02/22/2016 LORENA CULLEN, KISHA Justice Ot R49.0 DYSPHONIA 02/22/2016 LORENA CULLEN, KISHA Justice Ot R13.10 DYSPHAGIA, UNSPECIFIED 02/22/2016 RAMIN LOU EDI Meghan Ot R07.81 PLEURODYNIA 02/22/2016 MAJOR GIPSON APRN Ot J30.9 ALLERGIC RHINITIS, UNSPECIFIED 02/22/2016 MAJOR GIPSON APRN Ot R06.02 SHORTNESS OF BREATH 02/22/2016 RAQUEL ROLDAN Ot G89.29 OTHER CHRONIC PAIN 02/22/2016 RAQUEL ROLDAN Ot R07.81 PLEURODYNIA 02/22/2016 RAQUEL ROLDAN Ot G89.29 OTHER CHRONIC PAIN 02/22/2016 RAQUEL ROLDAN Ot R07.81 PLEURODYNIA 02/28/2016 MAJOR GIPSON APRN Ot J30.9 ALLERGIC RHINITIS, UNSPECIFIED 02/28/2016 MAJOR GIPSON APRN Ot R06.02 SHORTNESS OF BREATH 02/29/2016 ZAHIRA PETERSEN DO Ot E66.01 MORBID (SEVERE) OBESITY DUE TO EXCESS CA 02/29/2016 ZAHIRA PETERSEN DO Ot J30.9 ALLERGIC RHINITIS, UNSPECIFIED 02/29/2016 ZAHIRA PETERSEN DO Ot R06.02 SHORTNESS OF BREATH 03/22/2016 ZAHIRA PETERSEN DO Ot E66.01 MORBID (SEVERE) OBESITY DUE TO EXCESS CA 03/22/2016 ZAHIRA PETERSEN DO Ot J30.9 ALLERGIC RHINITIS, UNSPECIFIED 03/22/2016 ZAHIRA PETERSEN DO Ot R06.02 SHORTNESS OF BREATH 03/26/2016 ZAHIRA PETERSEN DO Ot E66.01 MORBID (SEVERE) OBESITY DUE TO EXCESS CA 03/26/2016 ZAHIRA PETERSEN DO Ot J30.9 ALLERGIC RHINITIS, UNSPECIFIED 03/26/2016 ZAHIRA PETERSEN DO Ot R06.02 SHORTNESS OF BREATH 03/27/2016 [place] CULLEN, LUNA Christianson Ot J98.4 OTHER DISORDERS OF LUNG 03/27/2016 [place] CULLEN, LUNA Christianson Ot K76.0 FATTY (CHANGE OF) LIVER, NOT ELSEWHERE C 03/27/2016 LUNA LEGER MD Ot R07.89 OTHER CHEST PAIN 03/28/2016 ZAHIRA PETERSEN DO Ot E66.01 MORBID (SEVERE) OBESITY DUE TO EXCESS CA 03/28/2016 ZAHIRA PETERSEN DO Ot J30.9 ALLERGIC RHINITIS, UNSPECIFIED 03/28/2016 ZAHIRA PETERSEN DO Ot R06.02 SHORTNESS OF BREATH 03/28/2016 LUNA LEGER MD Ot J98.4 OTHER DISORDERS OF LUNG 03/28/2016 LUNA LEGER MD Ot K76.0 FATTY (CHANGE OF) LIVER, NOT ELSEWHERE C 03/28/2016 LUNA LEGER MD Ot R07.89 OTHER CHEST PAIN 03/28/2016 ZAHIRA PETERSEN DO Ot E66.01 MORBID (SEVERE) OBESITY DUE TO EXCESS CA 03/28/2016 ZAHIRA PETERSEN DO Ot J30.9 ALLERGIC RHINITIS, UNSPECIFIED 03/28/2016 ZAHIRA PETERSEN DO Ot R06.02 SHORTNESS OF BREATH 04/17/2016 LUNA LEGER MD Ot J98.4 OTHER DISORDERS OF LUNG 04/17/2016 LUNA LEGER MD Ot K76.0 FATTY (CHANGE OF) LIVER, NOT ELSEWHERE C 04/17/2016 LUNA LEGER MD Ot R07.89 OTHER CHEST PAIN 04/18/2016 LUNA LEGER MD Ot J98.4 OTHER DISORDERS OF LUNG 04/18/2016 LUNA LEGER MD Ot K76.0 FATTY (CHANGE OF) LIVER, NOT ELSEWHERE C 04/18/2016 LUNA LEGER MD Ot R07.89 OTHER CHEST PAIN 04/18/2016 ZAHIRA PETERSEN DO Ot E66.01 MORBID (SEVERE) OBESITY DUE TO EXCESS CA 04/18/2016 ZAHIRA PETERSEN DO Ot J30.9 ALLERGIC RHINITIS, UNSPECIFIED 04/18/2016 ZAHIRA PETERSEN DO Ot R06.02 SHORTNESS OF BREATH 05/01/2016 KISHA BALDWIN MD Ot M94.262 CHONDROMALACIA, LEFT KNEE 05/01/2016 KISHA BALDWIN MD Ot Z01.818 ENCOUNTER FOR OTHER PREPROCEDURAL EXAMIN 05/01/2016 KISHA BALDWIN MD Ot Z11.2 ENCOUNTER FOR SCREENING FOR OTHER BACTER 05/02/2016 ZAHIRA PETERSEN DO Ot E66.01 MORBID (SEVERE) OBESITY DUE TO EXCESS CA 05/02/2016 ZAHIRA PETERSEN DO Ot J30.9 ALLERGIC RHINITIS, UNSPECIFIED 05/02/2016 ZAHIRA PETERSEN DO Ot R06.02 SHORTNESS OF BREATH 05/02/2016 KISHA BALDWIN MD Ot M94.262 CHONDROMALACIA, LEFT KNEE 05/02/2016 KISHA BALDWIN MD Ot Z01.818 ENCOUNTER FOR OTHER PREPROCEDURAL EXAMIN 05/02/2016 KISHA BALDWIN MD Ot Z11.2 ENCOUNTER FOR SCREENING FOR OTHER BACTER 05/08/2016 KISHA BALDWIN MD Ot E11.9 TYPE 2 DIABETES MELLITUS WITHOUT COMPLIC 05/08/2016 KISHA BALDWIN MD Ot E78.0 PURE HYPERCHOLESTEROLEMIA 05/08/2016 KISHA BALDWIN MD Ot J44.9 CHRONIC OBSTRUCTIVE PULMONARY DISEASE, U 05/08/2016 KISHA BALDWIN MD Ot M22.42 CHONDROMALACIA PATELLAE, LEFT KNEE 05/08/2016 KISHA BALDWIN MD Ot M23.8X1 OTHER INTERNAL DERANGEMENTS OF RIGHT KNE 05/08/2016 KISHA BALDWIN MD Ot M23.8X2 OTHER INTERNAL DERANGEMENTS OF LEFT KNEE 05/08/2016 KISHA BALDWIN MD Ot Z79.899 OTHER SKILLED NURSING (CURRENT) DRUG THERAPY 05/08/2016 KISHA BALDWIN MD Ot Z87.891 PERSONAL HISTORY OF NICOTINE DEPENDENCE 05/09/2016 KISHA BALDWIN MD Ot E11.9 TYPE 2 DIABETES MELLITUS WITHOUT COMPLIC 05/09/2016 KISHA BALDWIN MD Ot E78.0 PURE HYPERCHOLESTEROLEMIA 05/09/2016 KISHA BALDWIN MD Ot J44.9 CHRONIC OBSTRUCTIVE PULMONARY DISEASE, U 05/09/2016 KISHA BALDWIN MD Ot M22.42 CHONDROMALACIA PATELLAE, LEFT KNEE 05/09/2016 KISHA BALDWIN MD Ot M23.8X1 OTHER INTERNAL DERANGEMENTS OF RIGHT KNE 05/09/2016 KISHA BALDWIN MD Ot M23.8X2 OTHER INTERNAL DERANGEMENTS OF LEFT KNEE 05/09/2016 KISHA BALDWIN MD Ot Z79.899 OTHER OLERICULTURIST (CURRENT) DRUG THERAPY 05/09/2016 KISHA BALDWIN MD Ot Z87.891 PERSONAL HISTORY OF NICOTINE DEPENDENCE 05/10/2016 KISHA BALDWIN MD Ot E11.9 TYPE 2 DIABETES MELLITUS WITHOUT COMPLIC 05/10/2016 KISHA BALDWIN MD Ot E78.0 PURE HYPERCHOLESTEROLEMIA 05/10/2016 KISHA BALDWIN MD Ot J44.9 CHRONIC OBSTRUCTIVE PULMONARY DISEASE, U 05/10/2016 KISHA BALDWIN MD Ot M22.42 CHONDROMALACIA PATELLAE, LEFT KNEE 05/10/2016 KISHA BALDWIN MD Ot M23.8X1 OTHER INTERNAL DERANGEMENTS OF RIGHT KNE 05/10/2016 KISHA BALDWIN MD, Ot M23.8X2 OTHER INTERNAL DERANGEMENTS OF LEFT KNEE 05/10/2016 KISHA BALDWIN MD Ot Z79.899 OTHER SKILLED NURSING (CURRENT) DRUG THERAPY 05/10/2016 KISHA BALDWIN MD, Ot Z87.891 PERSONAL HISTORY OF NICOTINE DEPENDENCE 05/15/2016 EDI FAUSTIN DO, Ot Z12.31 ENCNTR SCREEN MAMMOGRAM FOR MALIGNANT NE 05/15/2016 KISHA BALDWIN MD Ot M75.112 INCOMPLETE ROTATR-CUFF TEAR/RUPTR OF L S 05/15/2016 EDI FAUSTIN DO Ot J18.9 PNEUMONIA, UNSPECIFIED ORGANISM 05/15/2016 EDI FAUSTIN DO, Ot J40 BRONCHITIS, NOT SPECIFIED ACUTE OR CH 05/15/2016 KISHA BALDWIN MD Ot M75.102 UNSP ROTATR-CUFF TEAR/RUPTR OF LEFT SHOU 05/15/2016 KISHA BALDWIN MD Ot Z01.818 ENCOUNTER FOR OTHER PREPROCEDURAL EXAMIN 05/15/2016 KISHA BALDWIN MD Ot Z11.2 ENCOUNTER FOR SCREENING FOR OTHER BACTER 05/15/2016 KISHA CARRILLO MD Ot R13.19 OTHER DYSPHAGIA 05/15/2016 KISHA CARRILLO MD Ot R49.0 DYSPHONIA 05/15/2016 KISHA CARRILLO MD Ot R13.10 DYSPHAGIA, UNSPECIFIED 05/15/2016 EDI FAUSTIN DO Ot R07.81 PLEURODYNIA 05/15/2016 MAJOR GIPSON APRN Ot J30.9 ALLERGIC RHINITIS, UNSPECIFIED 05/15/2016 MAJOR GIPSON APRN Ot R06.02 SHORTNESS OF BREATH 05/15/2016 TRINITY LOU ZAHIRA M Ot E66.01 MORBID (SEVERE) OBESITY DUE TO EXCESS CA 05/15/2016 TRINITY LOU ZAHIRA M Ot J30.9 ALLERGIC RHINITIS, UNSPECIFIED 05/15/2016 ZAHIRA PETERSEN DO Ot R06.02 SHORTNESS OF BREATH 05/15/2016 TRINITY LOU ZAHIRA Kramer Ot E66.01 MORBID (SEVERE) OBESITY DUE TO EXCESS CA 05/15/2016 TRINITY LOU ZAHIRA Nia Ot J30.9 ALLERGIC RHINITIS, UNSPECIFIED 05/15/2016 TRINITY LOU ZAHIRA Nia Ot R06.02 SHORTNESS OF BREATH 05/15/2016 LUNA LEGER MD Ot R07.89 OTHER CHEST PAIN 05/15/2016 LUNA LEGER MD Ot Z98.89 OTHER SPECIFIED POSTPROCEDURAL STATES 05/15/2016 EDI FAUSTIN DO Ot Z12.31 ENCNTR SCREEN MAMMOGRAM FOR MALIGNANT NE 05/15/2016 KISHA BALDWIN MD Ot M75.112 INCOMPLETE ROTATR-CUFF TEAR/RUPTR OF L S 05/15/2016 EDI FAUSTIN DO Ot J18.9 PNEUMONIA, UNSPECIFIED ORGANISM 05/15/2016 EDI FAUSTIN DO Ot J40 BRONCHITIS, NOT SPECIFIED ACUTE OR CH 05/15/2016 KISHA BALDWIN MD Ot M75.102 UNSP ROTATR-CUFF TEAR/RUPTR OF LEFT SHOU 05/15/2016 KISHA BALDWIN MD Ot Z01.818 ENCOUNTER FOR OTHER PREPROCEDURAL EXAMIN 05/15/2016 KISHA BALDWIN MD Ot Z11.2 ENCOUNTER FOR SCREENING FOR OTHER BACTER 05/15/2016 KISHA CARRILLO MD Ot R13.19 OTHER DYSPHAGIA 05/15/2016 KISHA CARRILLO MD Ot R49.0 DYSPHONIA 05/15/2016 KISHA CARRILLO MD Ot R13.10 DYSPHAGIA, UNSPECIFIED 05/15/2016 EDI FAUSTIN DO Ot R07.81 PLEURODYNIA 05/15/2016 MAJOR GIPSON APRN Ot J30.9 ALLERGIC RHINITIS, UNSPECIFIED 05/15/2016 MAJOR GIPSON APRN Ot R06.02 SHORTNESS OF BREATH 05/15/2016 ZAHIRA PETERSEN DO Ot E66.01 MORBID (SEVERE) OBESITY DUE TO EXCESS CA 05/15/2016 ZAHIRA PETERSEN DO Ot J30.9 ALLERGIC RHINITIS, UNSPECIFIED 05/15/2016 ZAHIRA PETERSEN DO Ot R06.02 SHORTNESS OF BREATH 05/15/2016 ZAHIRA PETERSEN DO Ot E66.01 MORBID (SEVERE) OBESITY DUE TO EXCESS CA 05/15/2016 ZAHIRA PETERSEN DO Ot J30.9 ALLERGIC RHINITIS, UNSPECIFIED 05/15/2016 ZAHIRA PETERSEN DO Ot R06.02 SHORTNESS OF BREATH 05/16/2016 LUNA LEGER MD Ot R07.89 OTHER CHEST PAIN 05/16/2016 LUNA LEGER MD Ot Z98.89 OTHER SPECIFIED POSTPROCEDURAL STATES 05/24/2016 EDI FAUSTIN DO Ot Z12.31 ENCNTR SCREEN MAMMOGRAM FOR MALIGNANT NE 05/24/2016 KISHA BALDWIN MD Ot M75.112 INCOMPLETE ROTATR-CUFF TEAR/RUPTR OF L S 05/24/2016 EDI FAUSTIN DO Ot J18.9 PNEUMONIA, UNSPECIFIED ORGANISM 05/24/2016 EDI FAUSTIN DO Ot J40 BRONCHITIS, NOT SPECIFIED ACUTE OR CH 05/24/2016 KISHA BALDWIN MD Ot M75.102 UNSP ROTATR-CUFF TEAR/RUPTR OF LEFT SHOU 05/24/2016 KISHA BALDWIN MD Ot Z01.818 ENCOUNTER FOR OTHER PREPROCEDURAL EXAMIN 05/24/2016 KISHA BALDWIN MD Ot Z11.2 ENCOUNTER FOR SCREENING FOR OTHER BACTER 05/24/2016 KISHA CARRILLO MD Ot R13.19 OTHER DYSPHAGIA 05/24/2016 KISHA CARRILLO MD Ot R49.0 DYSPHONIA 05/24/2016 KISHA CARRILLO MD Ot R13.10 DYSPHAGIA, UNSPECIFIED 05/24/2016 EDI FAUSTIN DO Ot R07.81 PLEURODYNIA 05/24/2016 MAJOR GIPSON APRN Ot J30.9 ALLERGIC RHINITIS, UNSPECIFIED 05/24/2016 MAJOR GIPSON APRN Ot R06.02 SHORTNESS OF BREATH 05/24/2016 ZAHIRA PETERSEN DO Ot E66.01 MORBID (SEVERE) OBESITY DUE TO EXCESS CA 05/24/2016 ZAHIRA PETERSEN DO Ot J30.9 ALLERGIC RHINITIS, UNSPECIFIED 05/24/2016 TRINITY ZAHIRA LOU Ot R06.02 SHORTNESS OF BREATH 05/24/2016 TRINITY ZAHIRA LOU Ot E66.01 MORBID (SEVERE) OBESITY DUE TO EXCESS CA 05/24/2016 TRINITY LOUZAHIRA Ot J30.9 ALLERGIC RHINITIS, UNSPECIFIED 05/24/2016 TRINITY LUO ZAHIRA Kramer Ot R06.02 SHORTNESS OF BREATH 05/24/2016 GELLENDER DO, EDI Christianson Ot N64.4 MASTODYNIA 05/27/2016 GELLENDER DO, EDI A Ot N64.4 MASTODYNIA 06/09/2016 DAVID CULLEN, LAYTON Spencer Ot E11.9 TYPE 2 DIABETES MELLITUS WITHOUT COMPLIC 06/09/2016 LAYTON HERNANDEZ MD Ot I10 ESSENTIAL (PRIMARY) HYPERTENSION 06/09/2016 LAYTON HERNANDEZ MD Ot N39.0 URINARY TRACT INFECTION, SITE NOT SPECIF 06/09/2016 LAYTON HERNANDEZ MD Ot R05 COUGH 06/09/2016 LAYTON HERNANDEZ MD Ot R42 DIZZINESS AND GIDDINESS 06/09/2016 LAYTON HERNANDEZ MD Ot Z79.899 OTHER SKILLED NURSING (CURRENT) DRUG THERAPY 06/11/2016 LAYTON HERNANDEZ MD Ot E11.9 TYPE 2 DIABETES MELLITUS WITHOUT COMPLIC 06/11/2016 LAYTON HERNANDEZ MD Ot I10 ESSENTIAL (PRIMARY) HYPERTENSION 06/11/2016 LAYTON HRENANDEZ MD Ot N39.0 URINARY TRACT INFECTION, SITE NOT SPECIF 06/11/2016 LAYTON HERNANDEZ MD Ot R05 COUGH 06/11/2016 LAYTON HERNANDEZ MD Ot R42 DIZZINESS AND GIDDINESS 06/11/2016 LAYTON HERNANDEZ MD Ot Z79.899 OTHER OLERICULTURIST (CURRENT) DRUG THERAPY 06/13/2016 EDI FAUSTIN DO Ot Z12.31 ENCNTR SCREEN MAMMOGRAM FOR MALIGNANT NE 06/13/2016 NICOLASA CULLEN, KISHA Justice Ot M75.112 INCOMPLETE ROTATR-CUFF TEAR/RUPTR OF L S 06/13/2016 EDI FAUSTIN DO Ot J18.9 PNEUMONIA, UNSPECIFIED ORGANISM 06/13/2016 EDI FAUSTIN DO Ot J40 BRONCHITIS, NOT SPECIFIED ACUTE OR CH 06/13/2016 NICOLASA CULLEN, KISHA Justice Ot M75.102 UNSP ROTATR-CUFF TEAR/RUPTR OF LEFT SHOU 06/13/2016 KISHA BALDWIN MD Ot Z01.818 ENCOUNTER FOR OTHER PREPROCEDURAL EXAMIN 06/13/2016 KISHA BALDWIN MD Ot Z11.2 ENCOUNTER FOR SCREENING FOR OTHER BACTER 06/13/2016 KISHA CARRILLO MD Ot R13.19 OTHER DYSPHAGIA 06/13/2016 KISHA CARRILLO MD Ot R49.0 DYSPHONIA 06/13/2016 KISHA CARRILLO MD Ot R13.10 DYSPHAGIA, UNSPECIFIED 06/13/2016 EDI FAUSTIN DO Ot R07.81 PLEURODYNIA 06/13/2016 MAJOR GIPSON APRN Ot J30.9 ALLERGIC RHINITIS, UNSPECIFIED 06/13/2016 MAJOR GIPSON APRN Ot R06.02 SHORTNESS OF BREATH 06/13/2016 ZAHIRA PETERSEN DO Ot E66.01 MORBID (SEVERE) OBESITY DUE TO EXCESS CA 06/13/2016 ZAHIRA PETERSEN DO Ot J30.9 ALLERGIC RHINITIS, UNSPECIFIED 06/13/2016 ZAHIRA PETERSEN DO Ot R06.02 SHORTNESS OF BREATH 06/13/2016 ZAHIRA PETERSEN DO Ot E66.01 MORBID (SEVERE) OBESITY DUE TO EXCESS CA 06/13/2016 ZAHIRA PETERSEN DO Ot J30.9 ALLERGIC RHINITIS, UNSPECIFIED 06/13/2016 ZAHIRA PETERSEN DO Ot R06.02 SHORTNESS OF BREATH 06/13/2016 EDI FAUSTIN DO Ot N64.4 MASTODYNIA 06/18/2016 EDI FAUSTIN DO Ot N64.4 MASTODYNIA 06/18/2016 JANELLE ESPITIA APRN Ot E11.9 TYPE 2 DIABETES MELLITUS WITHOUT COMPLIC 06/18/2016 JANELLE ESPITIA APRN Ot I10 ESSENTIAL (PRIMARY) HYPERTENSION 06/18/2016 JANELLE ESPITIA APRN Ot J44.9 CHRONIC OBSTRUCTIVE PULMONARY DISEASE, U 06/18/2016 JANELLE ESPITIA APRN Ot R10.31 RIGHT LOWER QUADRANT PAIN 06/18/2016 JANELLE ESPITIA CIGARETTE MACHINE FILLER Ot R11.0 NAUSEA 06/18/2016 JANELLE ESPITIA CIGARETTE MACHINE FILLER Ot Z79.899 OTHER OLERICULTURIST (CURRENT) DRUG THERAPY 06/19/2016 JANELLE ESPITIA APRN Ot E11.9 TYPE 2 DIABETES MELLITUS WITHOUT COMPLIC 06/19/2016 JANELLE ESPITIA CIGARETTE MACHINE FILLER Ot I10 ESSENTIAL (PRIMARY) HYPERTENSION 06/19/2016 JANELLE ESPITIA CIGARETTE MACHINE FILLER Ot J44.9 CHRONIC OBSTRUCTIVE PULMONARY DISEASE, U 06/19/2016 JANELLE ESPITIA APRN Ot R10.31 RIGHT LOWER QUADRANT PAIN 06/19/2016 JANELLE ESPITIA APRN Ot R11.0 NAUSEA 06/19/2016 JANELLE ESPITIA APRN Ot Z79.899 OTHER OLERICULTURIST (CURRENT) DRUG THERAPY 06/20/2016 JANELLE ESPITIA APRN Ot E11.9 TYPE 2 DIABETES MELLITUS WITHOUT COMPLIC 06/20/2016 JANELLE ESPITIA APRN Ot I10 ESSENTIAL (PRIMARY) HYPERTENSION 06/20/2016 JANELLE ESPITIA APRN Ot J44.9 CHRONIC OBSTRUCTIVE PULMONARY DISEASE, U 06/20/2016 JANELLE ESPITIA CIGARETTE MACHINE FILLER Ot R10.31 RIGHT LOWER QUADRANT PAIN 06/20/2016 JANELLE ESPITIA CIGARETTE MACHINE FILLER Ot R11.0 NAUSEA 06/20/2016 JANELLE ESPITIA CIGARETTE MACHINE FILLER Ot Z79.899 OTHER SKILLED NURSING (CURRENT) DRUG THERAPY 06/23/2016 ZAHIRA PETERSEN DO Ot E66.01 MORBID (SEVERE) OBESITY DUE TO EXCESS CA 06/23/2016 ZAHIRA PETERSEN DO Ot J30.9 ALLERGIC RHINITIS, UNSPECIFIED 06/23/2016 ZAHIRA PETERSEN DO Ot R06.02 SHORTNESS OF BREATH 06/26/2016 EDI FAUSTIN DO Ot N64.4 MASTODYNIA 07/01/2016 EDI FAUSTIN DO Ot R10.12 LEFT UPPER QUADRANT PAIN 07/02/2016 LUNA LEGER MD Ot E11.9 TYPE 2 DIABETES MELLITUS WITHOUT COMPLIC 07/02/2016 LUNA LEGER MD Ot I10 ESSENTIAL (PRIMARY) HYPERTENSION 07/02/2016 LUNA LEGER MD Ot J44.9 CHRONIC OBSTRUCTIVE PULMONARY DISEASE, U 07/02/2016 LUNA LEGER MD Ot R10.31 RIGHT LOWER QUADRANT PAIN 07/02/2016 LUNA LEGER MD Ot R11.10 VOMITING, UNSPECIFIED 07/02/2016 LUNA LEGER MD Ot Z79.899 OTHER SKILLED NURSING (CURRENT) DRUG THERAPY 07/03/2016 LUNA LEGER MD Ot E11.9 TYPE 2 DIABETES MELLITUS WITHOUT COMPLIC 07/03/2016 LUNA LEGER MD Ot I10 ESSENTIAL (PRIMARY) HYPERTENSION 07/03/2016 LUNA LEGER MD Ot J44.9 CHRONIC OBSTRUCTIVE PULMONARY DISEASE, U 07/03/2016 LUNA LEGER MD Ot R10.31 RIGHT LOWER QUADRANT PAIN 07/03/2016 LUNA LEGER MD Ot R11.10 VOMITING, UNSPECIFIED 07/03/2016 LUNA LEGER MD Ot Z79.899 OTHER SKILLED NURSING (CURRENT) DRUG THERAPY 07/12/2016 EDI FAUSTIN DO Ot R10.11 RIGHT UPPER QUADRANT PAIN 07/18/2016 JANELLE ESPITIA APRN Ot E11.9 TYPE 2 DIABETES MELLITUS WITHOUT COMPLIC 07/18/2016 JANELLE ESPITIA APRN Ot I10 ESSENTIAL (PRIMARY) HYPERTENSION 07/18/2016 JANELLE ESPITIA APRN Ot J44.0 CHRONIC OBSTRUCTIVE PULMON DISEASE W ACU 07/18/2016 JANELLE ESPITIA APRN Ot R05 COUGH 07/18/2016 JANELLE ESPITIA APRN Ot R09.1 PLEURISY 07/18/2016 JANELLE ESPITIA APRN Ot Z79.84 OLERICULTURIST (CURRENT) USE OF ORAL HYPOGLYC 07/18/2016 JANELLE ESPITIA CIGARETTE MACHINE FILLER Ot Z79.899 OTHER OLERICULTURIST (CURRENT) DRUG THERAPY 07/19/2016 JANELLE ESPITIA APRN Ot E11.9 TYPE 2 DIABETES MELLITUS WITHOUT COMPLIC 07/19/2016 JANELLE ESPITIA APRN Ot I10 ESSENTIAL (PRIMARY) HYPERTENSION 07/19/2016 JANELLE ESPITIA APRN Ot J44.0 CHRONIC OBSTRUCTIVE PULMON DISEASE W ACU 07/19/2016 JANELLE ESPITIA APRN Ot R05 COUGH 07/19/2016 JANELLE ESPITIA CIGARETTE MACHINE FILLER Ot R09.1 PLEURISY 07/19/2016 JANELLE ESPITIA APRN Ot Z79.84 SKILLED NURSING (CURRENT) USE OF ORAL HYPOGLYC 07/19/2016 JANELLE ESPITIA APRN Ot Z79.899 OTHER SKILLED NURSING (CURRENT) DRUG THERAPY 07/23/2016 EDI FAUSTIN DO Ot R10.12 LEFT UPPER QUADRANT PAIN 08/01/2016 EDI FAUSTIN DO Ot R10.11 RIGHT UPPER QUADRANT PAIN 08/02/2016 ZAHIRA PETERSEN DO Ot E66.01 MORBID (SEVERE) OBESITY DUE TO EXCESS CA 08/02/2016 ZAHIRA PETERSEN DO Ot J30.9 ALLERGIC RHINITIS, UNSPECIFIED 08/02/2016 ZAHIRA PETERSEN DO Ot R06.02 SHORTNESS OF BREATH 08/02/2016 ZAHIRA PETERSEN DO Ot R91.1 SOLITARY PULMONARY NODULE 08/03/2016 CHRISTO VIDAL MD Ot E11.9 TYPE 2 DIABETES MELLITUS WITHOUT COMPLIC 08/03/2016 CHRISTO VIDAL MD Ot F41.9 ANXIETY DISORDER, UNSPECIFIED 08/03/2016 CHRISTO VIDAL MD Ot I10 ESSENTIAL (PRIMARY) HYPERTENSION 08/03/2016 CHRISTO VIDAL MD Ot J02.9 ACUTE PHARYNGITIS, UNSPECIFIED 08/03/2016 CHRISTO VIDAL MD Ot J44.9 CHRONIC OBSTRUCTIVE PULMONARY DISEASE, U 08/03/2016 CHRISTO VIDAL MD Ot Z79.84 SKILLED NURSING (CURRENT) USE OF ORAL HYPOGLYC 08/03/2016 CHRISTO VIDAL MD Ot Z79.899 OTHER SKILLED NURSING (CURRENT) DRUG THERAPY 08/05/2016 EDI FAUSTIN DO Ot R10.12 LEFT UPPER QUADRANT PAIN 08/05/2016 CHRISTO VIDAL MD Ot E11.9 TYPE 2 DIABETES MELLITUS WITHOUT COMPLIC 08/05/2016 CHRISTO VIDAL MD Ot F41.9 ANXIETY DISORDER, UNSPECIFIED 08/05/2016 CHRISTO VIDAL MD Ot I10 ESSENTIAL (PRIMARY) HYPERTENSION 08/05/2016 CHRISTO VIDAL MD Ot J02.9 ACUTE PHARYNGITIS, UNSPECIFIED 08/05/2016 CHRISTO VIDAL MD Ot J44.9 CHRONIC OBSTRUCTIVE PULMONARY DISEASE, U 08/05/2016 CHRISTO VIDAL MD Ot Z79.84 SKILLED NURSING (CURRENT) USE OF ORAL HYPOGLYC 08/05/2016 YOUNG CULLEN, CHRISTO Huston Ot Z79.899 OTHER OLERICULTURIST (CURRENT) DRUG THERAPY 08/09/2016 CHRISTO VIDAL MD Ot E11.9 TYPE 2 DIABETES MELLITUS WITHOUT COMPLIC 08/09/2016 CHRISTO VIDAL MD Ot F41.9 ANXIETY DISORDER, UNSPECIFIED 08/09/2016 CHRISTO VIDAL MD Ot I10 ESSENTIAL (PRIMARY) HYPERTENSION 08/09/2016 CHRISTO VIDAL MD Ot J02.9 ACUTE PHARYNGITIS, UNSPECIFIED 08/09/2016 CHRISTO VIDAL MD Ot J44.9 CHRONIC OBSTRUCTIVE PULMONARY DISEASE, U 08/09/2016 CHRISTO VIDAL MD Ot Z79.84 SKILLED NURSING (CURRENT) USE OF ORAL HYPOGLYC 08/09/2016 CHRISTO VIDAL MD Ot Z79.899 OTHER SKILLED NURSING (CURRENT) DRUG THERAPY 08/14/2016 EDI FAUSTIN DO Ot R10.11 RIGHT UPPER QUADRANT PAIN 08/15/2016 JANELLE ESPITIA APRN Ot E11.9 TYPE 2 DIABETES MELLITUS WITHOUT COMPLIC 08/15/2016 JANELLE ESPITIA APRN Ot F41.9 ANXIETY DISORDER, UNSPECIFIED 08/15/2016 JANELLE ESPITIA APRN Ot I10 ESSENTIAL (PRIMARY) HYPERTENSION 08/15/2016 JANELLE ESPITIA APRN Ot J44.9 CHRONIC OBSTRUCTIVE PULMONARY DISEASE, U 08/15/2016 JANELLE ESPITIA APRN Ot R07.89 OTHER CHEST PAIN 08/15/2016 JANELLE ESPITIA APRN Ot R07.9 CHEST PAIN, UNSPECIFIED 08/15/2016 JANELLE ESPITIA CIGARETTE MACHINE FILLER Ot Z79.84 SKILLED NURSING (CURRENT) USE OF ORAL HYPOGLYC 08/15/2016 JANELLE ESPITIA CIGARETTE MACHINE FILLER Ot Z79.899 OTHER OLERICULTURIST (CURRENT) DRUG THERAPY 08/15/2016 JANELLE ESPITIA CIGARETTE MACHINE FILLER Ot E11.9 TYPE 2 DIABETES MELLITUS WITHOUT COMPLIC 08/15/2016 JANELLE ESPITIA CIGARETTE MACHINE FILLER Ot F41.9 ANXIETY DISORDER, UNSPECIFIED 08/15/2016 JANELLE ESPITIA CIGARETTE MACHINE FILLER Ot I10 ESSENTIAL (PRIMARY) HYPERTENSION 08/15/2016 JANELLE ESPITIA CIGARETTE MACHINE FILLER Ot J44.9 CHRONIC OBSTRUCTIVE PULMONARY DISEASE, U 08/15/2016 JANELLE ESPITIA CIGARETTE MACHINE FILLER Ot R07.89 OTHER CHEST PAIN 08/15/2016 JANELLE ESPITIA CIGARETTE MACHINE FILLER Ot R07.9 CHEST PAIN, UNSPECIFIED 08/15/2016 AJNELLE ESPITIA CIGARETTE MACHINE FILLER Ot Z79.84 SKILLED NURSING (CURRENT) USE OF ORAL HYPOGLYC 08/15/2016 JANELLE ESPITIA CIGARETTE MACHINE FILLER Ot Z79.899 OTHER OLERICULTURIST (CURRENT) DRUG THERAPY 08/21/2016 ZAHIRA PETERSEN DO Ot E66.01 MORBID (SEVERE) OBESITY DUE TO EXCESS CA 08/21/2016 ZAHIRA PETERSEN DO Ot J30.9 ALLERGIC RHINITIS, UNSPECIFIED 08/21/2016 ZAHIRA PETERSEN DO Ot R06.02 SHORTNESS OF BREATH 08/21/2016 ZAHIRA PETERSEN DO Ot R91.1 SOLITARY PULMONARY NODULE 08/24/2016 JANELLE ESPITIA CIGARETTE MACHINE FILLER Ot E11.9 TYPE 2 DIABETES MELLITUS WITHOUT COMPLIC 08/24/2016 JANELLE ESPITIA APRN Ot J44.9 CHRONIC OBSTRUCTIVE PULMONARY DISEASE, U 08/24/2016 JANELLE ESPITIA APRN Ot M54.5 LOW BACK PAIN 08/24/2016 JANELLE ESPITIA CIGARETTE MACHINE FILLER Ot Z79.84 OLERICULTURIST (CURRENT) USE OF ORAL HYPOGLYC 08/24/2016 JANELLE ESPITIA APRN Ot Z79.899 OTHER OLERICULTURIST (CURRENT) DRUG THERAPY 08/26/2016 JANELLE ESPITIA APRN Ot E11.9 TYPE 2 DIABETES MELLITUS WITHOUT COMPLIC 08/26/2016 JANELLE ESPITIA CIGARETTE MACHINE FILLER Ot J44.9 CHRONIC OBSTRUCTIVE PULMONARY DISEASE, U 08/26/2016 JANELLE ESPITIA CIGARETTE MACHINE FILLER Ot M54.5 LOW BACK PAIN 08/26/2016 JANELLE ESPITIA CIGARETTE MACHINE FILLER Ot Z79.84 SKILLED NURSING (CURRENT) USE OF ORAL HYPOGLYC 08/26/2016 JANELLE ESPITIA CIGARETTE MACHINE FILLER Ot Z79.899 OTHER OLERICULTURIST (CURRENT) DRUG THERAPY 09/04/2016 ZAHIRA PETERSEN DO Ot E66.01 MORBID (SEVERE) OBESITY DUE TO EXCESS CA 09/04/2016 ZAHIRA PETERSEN DO Ot J30.9 ALLERGIC RHINITIS, UNSPECIFIED 09/04/2016 ZAHIRA PETERSEN DO Ot R06.02 SHORTNESS OF BREATH 09/04/2016 ZAHIRA PETERSEN DO Ot R91.1 SOLITARY PULMONARY NODULE 09/04/2016 DONNA CULLEN, NICKY Lawrence Ot E11.65 TYPE 2 DIABETES MELLITUS WITH HYPERGLYCE 09/04/2016 DONNA CULLEN, NICKY Lawrence Ot R10.11 RIGHT UPPER QUADRANT PAIN 09/13/2016 EDI FAUSTIN DO Ot Z12.31 ENCNTR SCREEN MAMMOGRAM FOR MALIGNANT NE 09/13/2016 NICOLASA CULLEN, KISHA Justice Ot M75.112 INCOMPLETE ROTATR-CUFF TEAR/RUPTR OF L S 09/13/2016 EDI FAUSTIN DO Ot J18.9 PNEUMONIA, UNSPECIFIED ORGANISM 09/13/2016 EDI FAUSTIN DO Ot J40 BRONCHITIS, NOT SPECIFIED ACUTE OR CH 09/13/2016 KISHA BALDWIN MD Ot M75.102 UNSP ROTATR-CUFF TEAR/RUPTR OF LEFT SHOU 09/13/2016 KISHA BALDIWN MD Ot Z01.818 ENCOUNTER FOR OTHER PREPROCEDURAL EXAMIN 09/13/2016 KISHA BALDWIN MD Ot Z11.2 ENCOUNTER FOR SCREENING FOR OTHER BACTER 09/13/2016 LORENA CULLEN, KISHA Justice Ot R13.19 OTHER DYSPHAGIA 09/13/2016 KISHA CARRILLO MD Ot R49.0 DYSPHONIA 09/13/2016 KISHA CARRILLO MD Ot R13.10 DYSPHAGIA, UNSPECIFIED 09/13/2016 EDI FAUSTIN DO Ot R07.81 PLEURODYNIA 09/13/2016 MAJOR GIPSON APRN Ot J30.9 ALLERGIC RHINITIS, UNSPECIFIED 09/13/2016 MAJOR GIPSON APRN Ot R06.02 SHORTNESS OF BREATH 09/13/2016 ZAHIRA PETERSEN DO Ot E66.01 MORBID (SEVERE) OBESITY DUE TO EXCESS CA 09/13/2016 ZAHIRA PETERSEN DO Ot J30.9 ALLERGIC RHINITIS, UNSPECIFIED 09/13/2016 ZAHIRA PETERSEN DO Ot R06.02 SHORTNESS OF BREATH 09/13/2016 ZAHIRA PETERSEN DO Ot E66.01 MORBID (SEVERE) OBESITY DUE TO EXCESS CA 09/13/2016 ZAHIRA PETERSEN DO Ot J30.9 ALLERGIC RHINITIS, UNSPECIFIED 09/13/2016 ZAHIRA PETERSEN DO Ot R06.02 SHORTNESS OF BREATH 09/13/2016 ZAHIRA PETERSEN DO Ot R91.1 SOLITARY PULMONARY NODULE 09/13/2016 EDI FAUSTIN DO Ot N64.4 MASTODYNIA 09/13/2016 TRINITY LOU ZAHIRA Kramer Ot E66.01 MORBID (SEVERE) OBESITY DUE TO EXCESS CA 09/13/2016 TRINITY LOU ZAHIRA Kramer Ot J30.9 ALLERGIC RHINITIS, UNSPECIFIED 09/13/2016 ZAHIRA PETERSEN DO Ot R06.02 SHORTNESS OF BREATH 09/13/2016 RAMIN LOU EDI Christianson Ot R10.12 LEFT UPPER QUADRANT PAIN 09/13/2016 RAMIN LOU EDI Christianson Ot R10.11 RIGHT UPPER QUADRANT PAIN 09/13/2016 NICKY THOMPSON MD Ot E11.65 TYPE 2 DIABETES MELLITUS WITH HYPERGLYCE 09/13/2016 NICKY THOMPSON MD Ot R10.11 RIGHT UPPER QUADRANT PAIN 09/13/2016 LAYTON HERNANDEZ MD Ot E11.9 TYPE 2 DIABETES MELLITUS WITHOUT COMPLIC 09/13/2016 LAYTON HERNANDEZ MD Ot I10 ESSENTIAL (PRIMARY) HYPERTENSION 09/13/2016 LAYTON HERNANDEZ MD Ot J02.0 STREPTOCOCCAL PHARYNGITIS 09/13/2016 LAYTON HERNANDEZ MD Ot J02.9 ACUTE PHARYNGITIS, UNSPECIFIED 09/13/2016 LAYTON HERNANDEZ MD Ot J44.9 CHRONIC OBSTRUCTIVE PULMONARY DISEASE, U 09/13/2016 LAYTON HERNANDEZ MD Ot K59.00 CONSTIPATION, UNSPECIFIED 09/13/2016 LAYTON HERNANDEZ MD Ot K82.9 DISEASE OF GALLBLADDER, UNSPECIFIED 09/13/2016 LAYTON HERNANDEZ MD Ot R11.2 NAUSEA WITH VOMITING, UNSPECIFIED 09/13/2016 LAYTON HERNANDEZ MD Ot Z79.899 OTHER OLERICULTURIST (CURRENT) DRUG THERAPY 09/13/2016 LAYTON HERNANDEZ MD Ot Z87.891 PERSONAL HISTORY OF NICOTINE DEPENDENCE 09/16/2016 LAYTON HERNANDEZ MD Ot E11.9 TYPE 2 DIABETES MELLITUS WITHOUT COMPLIC 09/16/2016 LAYTON HERNANDEZ MD Ot I10 ESSENTIAL (PRIMARY) HYPERTENSION 09/16/2016 LAYTON HERNANDEZ MD Ot J02.0 STREPTOCOCCAL PHARYNGITIS 09/16/2016 DAVID CULLEN, LAYTON Spencer Ot J02.9 ACUTE PHARYNGITIS, UNSPECIFIED 09/16/2016 DAVID CULLEN, LAYTON Spencer Ot J44.9 CHRONIC OBSTRUCTIVE PULMONARY DISEASE, U 09/16/2016 LAYTON HERNANDEZ MD Ot K59.00 CONSTIPATION, UNSPECIFIED 09/16/2016 LAYTON HERNANDEZ MD Ot K82.9 DISEASE OF GALLBLADDER, UNSPECIFIED 09/16/2016 DAVID CULLEN, LAYTON Spencer Ot R11.2 NAUSEA WITH VOMITING, UNSPECIFIED 09/16/2016 DAVID CULLEN, LAYTON Spencer Ot Z79.899 OTHER OLERICULTURIST (CURRENT) DRUG THERAPY 09/16/2016 DAVID CULLEN, LAYTON Spencer Ot Z87.891 PERSONAL HISTORY OF NICOTINE DEPENDENCE 09/16/2016 STEPHANE KIMBLE DO Ot D37.6 NEOPLASM OF UNCERTAIN BEHAVIOR OF LIVER, 09/16/2016 STEPHANE KIMBLE DO Ot R10.11 RIGHT UPPER QUADRANT PAIN 09/16/2016 STEPHANE KIMBLE DO Ot Z01.818 ENCOUNTER FOR OTHER PREPROCEDURAL EXAMIN 09/16/2016 STEPHANE KIMBLE DO Ot Z11.2 ENCOUNTER FOR SCREENING FOR OTHER BACTER 09/17/2016 STEPHANE KIMBLE DO Ot D37.6 NEOPLASM OF UNCERTAIN BEHAVIOR OF LIVER, 09/17/2016 STEPHANE KIMBLE DO Ot R10.11 RIGHT UPPER QUADRANT PAIN 09/17/2016 STEPHANE KIMBLE DO Ot Z01.818 ENCOUNTER FOR OTHER PREPROCEDURAL EXAMIN 09/17/2016 STEPHANE KIMBLE DO Ot Z11.2 ENCOUNTER FOR SCREENING FOR OTHER BACTER 09/19/2016 STEPHANE KIMBLE DO Ot 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 09/19/2016 STEPHANE KIMBLE DO Ot K81.1 CHRONIC CHOLECYSTITIS 09/26/2016 NICKY THOMPSON MD Ot E11.65 TYPE 2 DIABETES MELLITUS WITH HYPERGLYCE 09/26/2016 NICKY THOMPSON MD Ot R10.11 RIGHT UPPER QUADRANT PAIN 10/03/2016 NICKY THOMPSON MD Ot E11.65 TYPE 2 DIABETES MELLITUS WITH HYPERGLYCE 10/03/2016 DONNA CULLEN, NICKY Lawrence Ot R10.11 RIGHT UPPER QUADRANT PAIN 10/16/2016 EDI FAUSTIN DO Ot Z12.31 ENCNTR SCREEN MAMMOGRAM FOR MALIGNANT NE 10/16/2016 KISHA BALDWIN MD Ot M75.112 INCOMPLETE ROTATR-CUFF TEAR/RUPTR OF L S 10/16/2016 EDI FAUSTIN DO Ot J18.9 PNEUMONIA, UNSPECIFIED ORGANISM 10/16/2016 EDI FAUSTIN DO Ot J40 BRONCHITIS, NOT SPECIFIED ACUTE OR CH 10/16/2016 KISHA BALDWIN MD Ot M75.102 UNSP ROTATR-CUFF TEAR/RUPTR OF LEFT SHOU 10/16/2016 KISHA BALDWIN MD Ot Z01.818 ENCOUNTER FOR OTHER PREPROCEDURAL EXAMIN 10/16/2016 KISHA BALDWIN MD Ot Z11.2 ENCOUNTER FOR SCREENING FOR OTHER BACTER 10/16/2016 KISHA CARRILLO MD Ot R13.19 OTHER DYSPHAGIA 10/16/2016 KISHA CARRILLO MD Ot R49.0 DYSPHONIA 10/16/2016 KISHA CARRILLO MD Ot R13.10 DYSPHAGIA, UNSPECIFIED 10/16/2016 EDI FAUSTIN DO Ot R07.81 PLEURODYNIA 10/16/2016 MAJOR GIPSON APRN Ot J30.9 ALLERGIC RHINITIS, UNSPECIFIED 10/16/2016 MAJOR GIPSON APRN Ot R06.02 SHORTNESS OF BREATH 10/16/2016 ZAHIRA PETERSEN DO Ot E66.01 MORBID (SEVERE) OBESITY DUE TO EXCESS CA 10/16/2016 ZAHIRA PETERSEN DO, Ot J30.9 ALLERGIC RHINITIS, UNSPECIFIED 10/16/2016 ZAHIRA PETERSEN DO Ot R06.02 SHORTNESS OF BREATH 10/16/2016 ZAHIRA PETERSEN DO Ot E66.01 MORBID (SEVERE) OBESITY DUE TO EXCESS CA 10/16/2016 ZAHIRA PETERSEN DO, Ot J30.9 ALLERGIC RHINITIS, UNSPECIFIED 10/16/2016 ZAHIRA PETERSEN DO Ot R06.02 SHORTNESS OF BREATH 10/16/2016 ZAHIRA PETERSEN DO Ot R91.1 SOLITARY PULMONARY NODULE 10/16/2016 EDI FAUSTIN DO Ot N64.4 MASTODYNIA 10/16/2016 TAYLER PETERSEN DOSON M Ot E66.01 MORBID (SEVERE) OBESITY DUE TO EXCESS CA 10/16/2016 TRINITY LOU AZHIRA Nia Ot J30.9 ALLERGIC RHINITIS, UNSPECIFIED 10/16/2016 TRINITY LOU ZAHIRA Kramer Ot R06.02 SHORTNESS OF BREATH 10/16/2016 RAMIN LOU EDI A Ot R10.12 LEFT UPPER QUADRANT PAIN 10/16/2016 ZURIBJDAYLIN DO EDI A Ot R10.11 RIGHT UPPER QUADRANT PAIN 10/16/2016 DONNA CULLEN, NICKY Lawrence Ot E11.65 TYPE 2 DIABETES MELLITUS WITH HYPERGLYCE 10/16/2016 DONNA CULLEN, NICKY Lawrence Ot R10.11 RIGHT UPPER QUADRANT PAIN 10/16/2016 LUNA LEGER MD Ot E11.9 TYPE 2 DIABETES MELLITUS WITHOUT COMPLIC 10/16/2016 LUNA LEGER MD, Ot J44.9 CHRONIC OBSTRUCTIVE PULMONARY DISEASE, U 10/16/2016 LUNA LEGER MD Ot R10.31 RIGHT LOWER QUADRANT PAIN 10/16/2016 LUNA LEGER MD Ot Z79.84 OLERICULTURIST (CURRENT) USE OF ORAL HYPOGLYC 10/16/2016 LUNA LEGER MD Ot Z79.899 OTHER OLERICULTURIST (CURRENT) DRUG THERAPY 10/16/2016 LUNA LEGER MD Ot Z90.49 ACQUIRED ABSENCE OF OTHER SPECIFIED PART 11/03/2016 CHRISTO VIDAL MD Ot J02.0 STREPTOCOCCAL PHARYNGITIS 11/03/2016 CHRISTO VIDAL MD Ot N39.0 URINARY TRACT INFECTION, SITE NOT SPECIF 11/03/2016 CHRISTO VIDAL MD Ot R05 COUGH 11/03/2016 CHRISTO VIDAL MD Ot R07.89 OTHER CHEST PAIN 11/03/2016 CHRISTO VIDAL MD Ot Z79.84 OLERICULTURIST (CURRENT) USE OF ORAL HYPOGLYC 11/03/2016 CHRISTO VIDAL MD Ot Z87.891 PERSONAL HISTORY OF NICOTINE DEPENDENCE 11/05/2016 CHRISTO VIDAL MD Ot J02.0 STREPTOCOCCAL PHARYNGITIS 11/05/2016 CHRISTO VIDAL MD Ot N39.0 URINARY TRACT INFECTION, SITE NOT SPECIF 11/05/2016 CHRISTO VIDAL MD Ot R05 COUGH 11/05/2016 CHRISTO VIDAL MD Ot R07.89 OTHER CHEST PAIN 11/05/2016 CHRISTO VIDAL MD Ot Z79.84 SKILLED NURSING (CURRENT) USE OF ORAL HYPOGLYC 11/05/2016 CHRISTO VIDAL MD Ot Z87.891 PERSONAL HISTORY OF NICOTINE DEPENDENCE 11/05/2016 PATRIC MONTERO MD Ot R10.31 RIGHT LOWER QUADRANT PAIN 11/05/2016 PATRIC MONTERO MD Ot R10.31 RIGHT LOWER QUADRANT PAIN 11/22/2016 RAQUEL ROLDAN Ot 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 11/22/2016 RAQUEL ROLDAN Ot E11.9 TYPE 2 DIABETES MELLITUS WITHOUT COMPLIC 11/22/2016 RAQUEL ROLDAN Ot J44.9 CHRONIC OBSTRUCTIVE PULMONARY DISEASE, U 11/22/2016 RAQUEL ROLDAN Ot Z79.4 SKILLED NURSING (CURRENT) USE OF INSULIN 11/22/2016 RAQUEL ROLDAN Ot Z79.899 OTHER SKILLED NURSING (CURRENT) DRUG THERAPY 11/25/2016 RAQUEL ROLDAN Ot 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 11/25/2016 RAQUEL ROLDAN Ot E11.9 TYPE 2 DIABETES MELLITUS WITHOUT COMPLIC 11/25/2016 RAQUEL ROLDAN Ot J44.9 CHRONIC OBSTRUCTIVE PULMONARY DISEASE, U 11/25/2016 RAQUEL ROLDAN Ot Z79.4 SKILLED NURSING (CURRENT) USE OF INSULIN 11/25/2016 RAQUEL ROLDAN Ot Z79.899 OTHER SKILLED NURSING (CURRENT) DRUG THERAPY 11/26/2016 PATRIC MONTERO MD Ot R10.31 RIGHT LOWER QUADRANT PAIN 11/28/2016 Nia RAI MD Ot E11.9 TYPE 2 DIABETES MELLITUS WITHOUT COMPLIC 11/28/2016 CECELIA CULLEN, Nia WILSON Ot E78.5 HYPERLIPIDEMIA, UNSPECIFIED 11/28/2016 Nia RAI MD Ot J44.9 CHRONIC OBSTRUCTIVE PULMONARY DISEASE, U 11/28/2016 Nia RAI MD Ot R07.9 CHEST PAIN, UNSPECIFIED 11/28/2016 Nia RAI MD Ot E11.9 TYPE 2 DIABETES MELLITUS WITHOUT COMPLIC 11/28/2016 Nia RAI MD Ot E78.5 HYPERLIPIDEMIA, UNSPECIFIED 11/28/2016 Nia RAI MD Ot J44.9 CHRONIC OBSTRUCTIVE PULMONARY DISEASE, U 11/28/2016 Nia RAI MD Ot R07.9 CHEST PAIN, UNSPECIFIED 12/01/2016 Nia RAI MD Ot E11.9 TYPE 2 DIABETES MELLITUS WITHOUT COMPLIC 12/01/2016 Nia RAI MD Ot E78.5 HYPERLIPIDEMIA, UNSPECIFIED 12/01/2016 Nia RAI MD Ot J44.9 CHRONIC OBSTRUCTIVE PULMONARY DISEASE, U 12/01/2016 Nia RAI MD Ot R07.9 CHEST PAIN, UNSPECIFIED 12/06/2016 KYLAH CULLEN, PATRIC Saucedo Ot R10.31 RIGHT LOWER QUADRANT PAIN 12/19/2016 Nia RAI MD Ot E11.9 TYPE 2 DIABETES MELLITUS WITHOUT COMPLIC 12/19/2016 Nia RAI MD Ot E78.5 HYPERLIPIDEMIA, UNSPECIFIED 12/19/2016 Nia RAI MD Ot J44.9 CHRONIC OBSTRUCTIVE PULMONARY DISEASE, U 12/19/2016 Nia RAI MD Ot R07.9 CHEST PAIN, UNSPECIFIED 12/19/2016 Nia RAI MD Ot E11.9 TYPE 2 DIABETES MELLITUS WITHOUT COMPLIC 12/19/2016 Nia RAI MD Ot E78.5 HYPERLIPIDEMIA, UNSPECIFIED 12/19/2016 Nai RAI MD Ot J44.9 CHRONIC OBSTRUCTIVE PULMONARY DISEASE, U 12/19/2016 Nia RAI MD Ot R07.9 CHEST PAIN, UNSPECIFIED 12/27/2016 EDI FAUSTIN DO Ot N64.4 MASTODYNIA 12/27/2016 Nia RAI MD Ot E11.9 TYPE 2 DIABETES MELLITUS WITHOUT COMPLIC 12/27/2016 Nia RAI MD Ot E78.5 HYPERLIPIDEMIA, UNSPECIFIED 12/27/2016 Nia RAI MD Ot J44.9 CHRONIC OBSTRUCTIVE PULMONARY DISEASE, U 12/27/2016 Nia RAI MDZWAN Ot R07.9 CHEST PAIN, UNSPECIFIED 01/01/2017 CECELIA CULLEN, Nia WILSON Ot E11.9 TYPE 2 DIABETES MELLITUS WITHOUT COMPLIC 01/01/2017 Nia RAI MD Ot E78.5 HYPERLIPIDEMIA, UNSPECIFIED 01/01/2017 Nia RAI MD Ot J44.9 CHRONIC OBSTRUCTIVE PULMONARY DISEASE, U 01/01/2017 CECELIA CULLEN, Nia WILSON Ot R07.9 CHEST PAIN, UNSPECIFIED 01/30/2017 JANELLE ESPITIA APRN Ot E78.00 PURE HYPERCHOLESTEROLEMIA, UNSPECIFIED 01/30/2017 JANELLE ESPITIA APRN Ot F31.9 BIPOLAR DISORDER, UNSPECIFIED 01/30/2017 JANELLE ESPITIA APRN Ot F41.9 ANXIETY DISORDER, UNSPECIFIED 01/30/2017 JANELLE ESPITIA APRN Ot J44.9 CHRONIC OBSTRUCTIVE PULMONARY DISEASE, U 01/30/2017 JANELLE ESPITIA APRN Ot K21.9 GASTRO-ESOPHAGEAL REFLUX DISEASE WITHOUT 01/30/2017 JANELLE ESPITIA APRN Ot M79.604 PAIN IN RIGHT LEG 01/30/2017 JANELLE ESPITIA APRN Ot Z87.891 PERSONAL HISTORY OF NICOTINE DEPENDENCE 02/09/2017 LAUREL SHEN MD, Ot E11.9 TYPE 2 DIABETES MELLITUS WITHOUT COMPLIC 02/09/2017 LAUREL SHEN MD, Ot J44.9 CHRONIC OBSTRUCTIVE PULMONARY DISEASE, U 02/09/2017 LAUREL SHEN MD Ot S83.91XA SPRAIN OF UNSPECIFIED SITE OF RIGHT KNEE 02/09/2017 LAUREL SHEN MD Ot S89.91XA UNSPECIFIED INJURY OF RIGHT LOWER LEG, I 02/09/2017 LAUREL SHEN MD Ot W22.03XA WALKED INTO FURNITURE, INITIAL ENCOUNTER 02/09/2017 LAUREL SHEN MD Ot Y99.8 OTHER EXTERNAL CAUSE STATUS 02/09/2017 LAUREL SHEN MD Ot Z79.82 SKILLED NURSING (CURRENT) USE OF ASPIRIN 02/11/2017 LAUREL SHEN MD Ot E11.9 TYPE 2 DIABETES MELLITUS WITHOUT COMPLIC 02/11/2017 LAUREL SHEN MD, Ot J44.9 CHRONIC OBSTRUCTIVE PULMONARY DISEASE, U 02/11/2017 LAUREL SHEN MD Ot S83.91XA SPRAIN OF UNSPECIFIED SITE OF RIGHT KNEE 02/11/2017 LAUREL SHEN MD Ot S89.91XA UNSPECIFIED INJURY OF RIGHT LOWER LEG, I 02/11/2017 LAUREL SHEN MD Ot W22.03XA WALKED INTO FURNITURE, INITIAL ENCOUNTER 02/11/2017 LAUREL SHEN MD Ot Y99.8 OTHER EXTERNAL CAUSE STATUS 02/11/2017 LAUREL SHEN MD Ot Z79.82 SKILLED NURSING (CURRENT) USE OF ASPIRIN 02/27/2017 EDI FAUSTIN DO Ot Z12.31 ENCNTR SCREEN MAMMOGRAM FOR MALIGNANT NE 02/27/2017 KISHA BALDWIN MD Ot M75.112 INCOMPLETE ROTATR-CUFF TEAR/RUPTR OF L S 02/27/2017 EDI FAUSTIN DO Ot J18.9 PNEUMONIA, UNSPECIFIED ORGANISM 02/27/2017 EDI FAUSTIN DO, Ot J40 BRONCHITIS, NOT SPECIFIED ACUTE OR CH 02/27/2017 KISHA BALDWIN MD Ot M75.102 UNSP ROTATR-CUFF TEAR/RUPTR OF LEFT SHOU 02/27/2017 KISHA BALDWIN MD Ot Z01.818 ENCOUNTER FOR OTHER PREPROCEDURAL EXAMIN 02/27/2017 KISHA BALDWIN MD Ot Z11.2 ENCOUNTER FOR SCREENING FOR OTHER BACTER 02/27/2017 KISHA CARRILLO MD Ot R13.19 OTHER DYSPHAGIA 02/27/2017 KISHA CARRILLO MD Ot R49.0 DYSPHONIA 02/27/2017 KISHA CARRILLO MD Ot R13.10 DYSPHAGIA, UNSPECIFIED 02/27/2017 EDI FAUSTIN DO Ot R07.81 PLEURODYNIA 02/27/2017 MAJOR GIPSON APRN Ot J30.9 ALLERGIC RHINITIS, UNSPECIFIED 02/27/2017 MAJOR GIPSON APRN Ot R06.02 SHORTNESS OF BREATH 02/27/2017 ZAHIRA PETERSEN DO Ot E66.01 MORBID (SEVERE) OBESITY DUE TO EXCESS CA 02/27/2017 ZAHIRA PETERSEN DO Ot J30.9 ALLERGIC RHINITIS, UNSPECIFIED 02/27/2017 ZAHIRA PETERSEN DO Ot R06.02 SHORTNESS OF BREATH 02/27/2017 TRINITY DO, ZAHIRA M Ot E66.01 MORBID (SEVERE) OBESITY DUE TO EXCESS CA 02/27/2017 ZAHIRA PETERSEN DO Ot J30.9 ALLERGIC RHINITIS, UNSPECIFIED 02/27/2017 ZAHIRA PETERSEN DO Ot R06.02 SHORTNESS OF BREATH 02/27/2017 ZAHIRA PETERSEN DO Ot R91.1 SOLITARY PULMONARY NODULE 02/27/2017 ZURIEDI GARZA DO Ot N64.4 MASTODYNIA 02/27/2017 ZAHIRA PETERSEN DO Ot E66.01 MORBID (SEVERE) OBESITY DUE TO EXCESS CA 02/27/2017 ZAHIRA PETERSEN DO Ot J30.9 ALLERGIC RHINITIS, UNSPECIFIED 02/27/2017 ZAHIRA PETERSEN DO Ot R06.02 SHORTNESS OF BREATH 02/27/2017 EDI FAUSTIN DO Ot R10.12 LEFT UPPER QUADRANT PAIN 02/27/2017 EDI FAUSTIN DO Ot R10.11 RIGHT UPPER QUADRANT PAIN 02/27/2017 DONNA CULLEN, NICKY Lawrence Ot E11.65 TYPE 2 DIABETES MELLITUS WITH HYPERGLYCE 02/27/2017 DONNA CULLEN, NICKY Lawrence Ot R10.11 RIGHT UPPER QUADRANT PAIN 02/27/2017 KYLAH CULLEN, PATRIC Saucedo Ot R10.31 RIGHT LOWER QUADRANT PAIN 02/27/2017 CECELIA CULLEN, Nia WILSON Ot E11.9 TYPE 2 DIABETES MELLITUS WITHOUT COMPLIC 02/27/2017 CECELIA CULLEN, Nia WILSON Ot E78.5 HYPERLIPIDEMIA, UNSPECIFIED 02/27/2017 CECELIA CULLEN, Nia WILSON Ot J44.9 CHRONIC OBSTRUCTIVE PULMONARY DISEASE, U 02/27/2017 Nia RAI MD Ot R07.9 CHEST PAIN, UNSPECIFIED 02/27/2017 Nia RAI MD Ot E11.9 TYPE 2 DIABETES MELLITUS WITHOUT COMPLIC 02/27/2017 Nia RAI MD Ot E78.5 HYPERLIPIDEMIA, UNSPECIFIED 02/27/2017 Nia RAI MD Ot J44.9 CHRONIC OBSTRUCTIVE PULMONARY DISEASE, U 02/27/2017 Nia RAI MD Ot R07.9 CHEST PAIN, UNSPECIFIED 02/28/2017 EDI FAUSTIN DO Ot Z12.31 ENCNTR SCREEN MAMMOGRAM FOR MALIGNANT NE 02/28/2017 KISHA BALDWIN MD Ot M75.112 INCOMPLETE ROTATR-CUFF TEAR/RUPTR OF L S 02/28/2017 EDI FAUSTIN DO Ot J18.9 PNEUMONIA, UNSPECIFIED ORGANISM 02/28/2017 EDI FAUSTIN DO Ot J40 BRONCHITIS, NOT SPECIFIED ACUTE OR CH 02/28/2017 KISHA BALDWIN MD Ot M75.102 UNSP ROTATR-CUFF TEAR/RUPTR OF LEFT SHOU 02/28/2017 KISHA BALDWIN MD Ot Z01.818 ENCOUNTER FOR OTHER PREPROCEDURAL EXAMIN 02/28/2017 KISHA BALDWIN MD Ot Z11.2 ENCOUNTER FOR SCREENING FOR OTHER BACTER 02/28/2017 KISHA CARRILLO MD Ot R13.19 OTHER DYSPHAGIA 02/28/2017 KISHA CARRILLO MD Ot R49.0 DYSPHONIA 02/28/2017 KISHA CARRILLO MD Ot R13.10 DYSPHAGIA, UNSPECIFIED 02/28/2017 EDI FAUSTIN DO Ot R07.81 PLEURODYNIA 02/28/2017 MAJOR GIPSON APRN Ot J30.9 ALLERGIC RHINITIS, UNSPECIFIED 02/28/2017 MAJOR GIPSON APRN Ot R06.02 SHORTNESS OF BREATH 02/28/2017 ZAHIRA PETERSEN DO Ot E66.01 MORBID (SEVERE) OBESITY DUE TO EXCESS CA 02/28/2017 ZAHIRA PETERSEN DO Ot J30.9 ALLERGIC RHINITIS, UNSPECIFIED 02/28/2017 ZAHIRA PETERSEN DO Ot R06.02 SHORTNESS OF BREATH 02/28/2017 ZAHIRA PETERSEN DO Ot E66.01 MORBID (SEVERE) OBESITY DUE TO EXCESS CA 02/28/2017 ZAHIRA PETERSEN DO Ot J30.9 ALLERGIC RHINITIS, UNSPECIFIED 02/28/2017 ZAHIRA PETERSEN DO Ot R06.02 SHORTNESS OF BREATH 02/28/2017 ZAHIRA PETERSEN DO Ot R91.1 SOLITARY PULMONARY NODULE 02/28/2017 EDI FAUSTIN DO Ot N64.4 MASTODYNIA 02/28/2017 ZAHIRA PETERSEN DO Ot E66.01 MORBID (SEVERE) OBESITY DUE TO EXCESS CA 02/28/2017 ZAHIRA PETERSEN DO Ot J30.9 ALLERGIC RHINITIS, UNSPECIFIED 02/28/2017 ZAHIRA PETERSEN DO Ot R06.02 SHORTNESS OF BREATH 02/28/2017 EDI FAUSTIN DO A Ot R10.12 LEFT UPPER QUADRANT PAIN 02/28/2017 EDI FAUSTIN DO Ot R10.11 RIGHT UPPER QUADRANT PAIN 02/28/2017 DONNA CULLEN, NICKY Lawrence Ot E11.65 TYPE 2 DIABETES MELLITUS WITH HYPERGLYCE 02/28/2017 DONNA CULLEN, NICKY Lawrence Ot R10.11 RIGHT UPPER QUADRANT PAIN 02/28/2017 KYLAH CULLEN, PATRIC Saucedo Ot R10.31 RIGHT LOWER QUADRANT PAIN 02/28/2017 CECELIA CULLEN, Nia WILSON Ot E11.9 TYPE 2 DIABETES MELLITUS WITHOUT COMPLIC 02/28/2017 CECELIA CULLEN, Nia WILSON Ot E78.5 HYPERLIPIDEMIA, UNSPECIFIED 02/28/2017 Nia RAI MD Ot J44.9 CHRONIC OBSTRUCTIVE PULMONARY DISEASE, U 02/28/2017 CECELIA CULLEN, Nia WILSON Ot R07.9 CHEST PAIN, UNSPECIFIED 02/28/2017 CECELIA CULLEN, Nia WILSON Ot E11.9 TYPE 2 DIABETES MELLITUS WITHOUT COMPLIC 02/28/2017 Nia RAI MD Ot E78.5 HYPERLIPIDEMIA, UNSPECIFIED 02/28/2017 CECELIA CULLEN, Nia WILSON Ot J44.9 CHRONIC OBSTRUCTIVE PULMONARY DISEASE, U 02/28/2017 Nia RAI MD Ot R07.9 CHEST PAIN, UNSPECIFIED 02/28/2017 ZAHIRA PETERSEN DO Ot E66.01 MORBID (SEVERE) OBESITY DUE TO EXCESS CA 02/28/2017 ZAHIRA PETERSEN DO Ot J30.9 ALLERGIC RHINITIS, UNSPECIFIED 02/28/2017 ZAHIRA PETERSEN DO Ot R06.02 SHORTNESS OF BREATH 02/28/2017 NICOLASA CULLEN, KISHA Justice Ot M22.41 CHONDROMALACIA PATELLAE, RIGHT KNEE 02/28/2017 NICOLASA CULLEN, KISHA Justice Ot Z01.818 ENCOUNTER FOR OTHER PREPROCEDURAL EXAMIN 02/28/2017 KISHA BALDWIN MD Ot Z11.2 ENCOUNTER FOR SCREENING FOR OTHER BACTER 03/04/2017 HERMELINDA CULLEN, LAUREL Velasco Ot E11.9 TYPE 2 DIABETES MELLITUS WITHOUT COMPLIC 03/04/2017 LAUREL SHEN MD, Ot J44.9 CHRONIC OBSTRUCTIVE PULMONARY DISEASE, U 03/04/2017 LAUREL SHEN MD Ot S83.91XA SPRAIN OF UNSPECIFIED SITE OF RIGHT KNEE 03/04/2017 LAUREL SHEN MD Ot S89.91XA UNSPECIFIED INJURY OF RIGHT LOWER LEG, I 03/04/2017 LAUREL SHEN MD Ot W22.03XA WALKED INTO FURNITURE, INITIAL ENCOUNTER 03/04/2017 LAUREL SHEN MD Ot Y99.8 OTHER EXTERNAL CAUSE STATUS 03/04/2017 LAUREL SHEN MD, Ot Z79.82 OLERICULTURIST (CURRENT) USE OF ASPIRIN 03/05/2017 KISHA BALDWIN MD, Ot E11.9 TYPE 2 DIABETES MELLITUS WITHOUT COMPLIC 03/05/2017 KISHA BALDWIN MD, Ot E66.01 MORBID (SEVERE) OBESITY DUE TO EXCESS CA 03/05/2017 KISHA BALDWIN MD, Ot E78.00 PURE HYPERCHOLESTEROLEMIA, UNSPECIFIED 03/05/2017 KISHA BALDWIN MD, Ot F31.9 BIPOLAR DISORDER, UNSPECIFIED 03/05/2017 KISHA BALDWIN MD, Ot F32.9 MAJOR DEPRESSIVE DISORDER, SINGLE EPISOD 03/05/2017 KISHA BALDWIN MD, Ot G47.33 OBSTRUCTIVE SLEEP APNEA (ADULT) (PEDIATR 03/05/2017 KISHA BALDWIN MD, Ot J44.9 CHRONIC OBSTRUCTIVE PULMONARY DISEASE, U 03/05/2017 KISHA BALDWIN MD, Ot J45.909 UNSPECIFIED ASTHMA, UNCOMPLICATED 03/05/2017 KISHA BALDWIN MD, Ot K21.9 GASTRO-ESOPHAGEAL REFLUX DISEASE WITHOUT 03/05/2017 KISHA BALDWIN MD, Ot M94.261 CHONDROMALACIA, RIGHT KNEE 03/05/2017 KISHA BALDWIN MD, Ot Z68.41 BODY MASS INDEX (BMI) 40.0-44.9, ADULT 03/05/2017 KISHA BALDWIN MD, Ot Z79.899 OTHER OLERICULTURIST (CURRENT) DRUG THERAPY 03/05/2017 KISHA BALDWIN MD, Ot Z87.891 PERSONAL HISTORY OF NICOTINE DEPENDENCE 03/06/2017 JANELLE ESPITIA APRN Ot E78.00 PURE HYPERCHOLESTEROLEMIA, UNSPECIFIED 03/06/2017 JANELLE ESPITIA APRN Ot F31.9 BIPOLAR DISORDER, UNSPECIFIED 03/06/2017 JANELLE ESPITIA APRN Ot F41.9 ANXIETY DISORDER, UNSPECIFIED 03/06/2017 JANELLE ESPITIA APRN Ot J44.9 CHRONIC OBSTRUCTIVE PULMONARY DISEASE, U 03/06/2017 JANELLE ESPITIA APRN Ot K21.9 GASTRO-ESOPHAGEAL REFLUX DISEASE WITHOUT 03/06/2017 JANELLE ESPITIA APRN Ot M79.604 PAIN IN RIGHT LEG 03/06/2017 JANELLE ESPITIA APRN Ot Z87.891 PERSONAL HISTORY OF NICOTINE DEPENDENCE 03/06/2017 LAUREL SHEN MD Ot E11.9 TYPE 2 DIABETES MELLITUS WITHOUT COMPLIC 03/06/2017 LAUREL SHEN MD, Ot J44.9 CHRONIC OBSTRUCTIVE PULMONARY DISEASE, U 03/06/2017 LAUREL SHEN MD Ot S83.91XA SPRAIN OF UNSPECIFIED SITE OF RIGHT KNEE 03/06/2017 LAUREL SHEN MD Ot S89.91XA UNSPECIFIED INJURY OF RIGHT LOWER LEG, I 03/06/2017 LAUREL SHEN MD Ot W22.03XA WALKED INTO FURNITURE, INITIAL ENCOUNTER 03/06/2017 LAUREL SHEN MD Ot Y99.8 OTHER EXTERNAL CAUSE STATUS 03/06/2017 LAUREL SHEN MD Ot Z79.82 OLERICULTURIST (CURRENT) USE OF ASPIRIN 03/06/2017 KISHA BALDWIN MD, Ot E11.9 TYPE 2 DIABETES MELLITUS WITHOUT COMPLIC 03/06/2017 KISHA BALDWIN MD, Ot E66.01 MORBID (SEVERE) OBESITY DUE TO EXCESS CA 03/06/2017 KISHA BALDWIN MD, Ot E78.00 PURE HYPERCHOLESTEROLEMIA, UNSPECIFIED 03/06/2017 KISHA BALDWIN MD, Ot F31.9 BIPOLAR DISORDER, UNSPECIFIED 03/06/2017 KISHA BALDWIN MD, Ot F32.9 MAJOR DEPRESSIVE DISORDER, SINGLE EPISOD 03/06/2017 KISHA BALDWIN MD, Ot G47.33 OBSTRUCTIVE SLEEP APNEA (ADULT) (PEDIATR 03/06/2017 KISHA BALDWIN MD, Ot J44.9 CHRONIC OBSTRUCTIVE PULMONARY DISEASE, U 03/06/2017 KISHA BALDWIN MD, Ot J45.909 UNSPECIFIED ASTHMA, UNCOMPLICATED 03/06/2017 ZAFUTA MD, KISHA P Ot K21.9 GASTRO-ESOPHAGEAL REFLUX DISEASE WITHOUT 03/06/2017 KISHA BALDWIN MD, Ot M94.261 CHONDROMALACIA, RIGHT KNEE 03/06/2017 KISHA BALDWIN MD, Ot Z68.41 BODY MASS INDEX (BMI) 40.0-44.9, ADULT 03/06/2017 KISHA BALDWIN MD, Ot Z79.899 OTHER OLERICULTURIST (CURRENT) DRUG THERAPY 03/06/2017 KISHA BALDWIN MD, Ot Z87.891 PERSONAL HISTORY OF NICOTINE DEPENDENCE 03/16/2017 RAQUEL ROLDAN Ot 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 03/16/2017 RAQUEL ROLDAN Ot E11.9 TYPE 2 DIABETES MELLITUS WITHOUT COMPLIC 03/16/2017 RAQUEL ROLDAN Ot J44.9 CHRONIC OBSTRUCTIVE PULMONARY DISEASE, U 03/16/2017 RAQUEL ROLDAN Ot Z79.4 OLERICULTURIST (CURRENT) USE OF INSULIN 03/16/2017 RAQUEL ROLDAN Ot Z79.899 OTHER SKILLED NURSING (CURRENT) DRUG THERAPY 04/08/2017 KISHA BALDWIN MD, Ot E11.9 TYPE 2 DIABETES MELLITUS WITHOUT COMPLIC 04/08/2017 KISHA BALDWIN MD, Ot E66.01 MORBID (SEVERE) OBESITY DUE TO EXCESS CA 04/08/2017 KISHA BALDWIN MD, Ot E78.00 PURE HYPERCHOLESTEROLEMIA, UNSPECIFIED 04/08/2017 KISHA BALDWIN MD, Ot F31.9 BIPOLAR DISORDER, UNSPECIFIED 04/08/2017 KISHA BALDWIN MD, Ot F32.9 MAJOR DEPRESSIVE DISORDER, SINGLE EPISOD 04/08/2017 KISHA BALDWIN MD, Ot G47.33 OBSTRUCTIVE SLEEP APNEA (ADULT) (PEDIATR 04/08/2017 KISHA BALDWIN MD, Ot J44.9 CHRONIC OBSTRUCTIVE PULMONARY DISEASE, U 04/08/2017 KISHA BALDWIN MD, Ot J45.909 UNSPECIFIED ASTHMA, UNCOMPLICATED 04/08/2017 KISHA BALDWIN MD, Ot K21.9 GASTRO-ESOPHAGEAL REFLUX DISEASE WITHOUT 04/08/2017 KISHA BALDWIN MD, Ot M94.261 CHONDROMALACIA, RIGHT KNEE 04/08/2017 KISHA BALDWIN MD, Ot Z68.41 BODY MASS INDEX (BMI) 40.0-44.9, ADULT 04/08/2017 KISHA BALDWIN MD Ot Z79.899 OTHER OLERICULTURIST (CURRENT) DRUG THERAPY 04/08/2017 KISHA BALDWIN MD Ot Z87.891 PERSONAL HISTORY OF NICOTINE DEPENDENCE 04/29/2017 EDI FAUSTIN DO Ot Z12.31 ENCNTR SCREEN MAMMOGRAM FOR MALIGNANT NE 04/29/2017 KISHA BALDWIN MD Ot M75.112 INCOMPLETE ROTATR-CUFF TEAR/RUPTR OF L S 04/29/2017 EDI FAUSTIN DO Ot J18.9 PNEUMONIA, UNSPECIFIED ORGANISM 04/29/2017 EDI FAUSTIN DO Ot J40 BRONCHITIS, NOT SPECIFIED ACUTE OR CH 04/29/2017 KISHA BALDWIN MD Ot M75.102 UNSP ROTATR-CUFF TEAR/RUPTR OF LEFT SHOU 04/29/2017 KISHA BALDWIN MD Ot Z01.818 ENCOUNTER FOR OTHER PREPROCEDURAL EXAMIN 04/29/2017 KISHA BALDWIN MD Ot Z11.2 ENCOUNTER FOR SCREENING FOR OTHER BACTER 04/29/2017 KISHA CARRILLO MD Ot R13.19 OTHER DYSPHAGIA 04/29/2017 KISHA CARRILLO MD Ot R49.0 DYSPHONIA 04/29/2017 KISHA CARRILLO MD Ot R13.10 DYSPHAGIA, UNSPECIFIED 04/29/2017 EDI FAUSTIN DO Ot R07.81 PLEURODYNIA 04/29/2017 MAJOR GIPSON APRN Ot J30.9 ALLERGIC RHINITIS, UNSPECIFIED 04/29/2017 MAJOR GIPSON APRN Ot R06.02 SHORTNESS OF BREATH 04/29/2017 ZAHIRA PETERSEN DO Ot E66.01 MORBID (SEVERE) OBESITY DUE TO EXCESS CA 04/29/2017 ZAHIRA PETERSEN DO Ot J30.9 ALLERGIC RHINITIS, UNSPECIFIED 04/29/2017 ZAHIRA PETERSEN DO Ot R06.02 SHORTNESS OF BREATH 04/29/2017 ZAHIRA PETERSEN DO Ot E66.01 MORBID (SEVERE) OBESITY DUE TO EXCESS CA 04/29/2017 ZAHIRA PETERSEN DO Ot J30.9 ALLERGIC RHINITIS, UNSPECIFIED 04/29/2017 ZAHIRA PETERSEN DO Ot R06.02 SHORTNESS OF BREATH 04/29/2017 ZAHIRA PETERSEN DO Ot R91.1 SOLITARY PULMONARY NODULE 04/29/2017 EDI FAUSTIN DO Ot N64.4 MASTODYNIA 04/29/2017 ZAHIRA PETERSEN DO Ot E66.01 MORBID (SEVERE) OBESITY DUE TO EXCESS CA 04/29/2017 ZAHIRA PETERSEN DO Ot J30.9 ALLERGIC RHINITIS, UNSPECIFIED 04/29/2017 ZAHIRA PETERSEN DO Ot R06.02 SHORTNESS OF BREATH 04/29/2017 RAMIN LOU EDI Christianson Ot R10.12 LEFT UPPER QUADRANT PAIN 04/29/2017 RAMIN LOU, EDI A Ot R10.11 RIGHT UPPER QUADRANT PAIN 04/29/2017 DONNA CULLEN, NICKY Lawrence Ot E11.65 TYPE 2 DIABETES MELLITUS WITH HYPERGLYCE 04/29/2017 NICKY THOMPSON MD Ot R10.11 RIGHT UPPER QUADRANT PAIN 04/29/2017 KYLAH CULLEN, PATRIC Saucedo Ot R10.31 RIGHT LOWER QUADRANT PAIN 04/29/2017 CECELIA CULLEN, Nia WILSON Ot E11.9 TYPE 2 DIABETES MELLITUS WITHOUT COMPLIC 04/29/2017 Nia RAI MD Ot E78.5 HYPERLIPIDEMIA, UNSPECIFIED 04/29/2017 Nia RAI MD Ot J44.9 CHRONIC OBSTRUCTIVE PULMONARY DISEASE, U 04/29/2017 CECELIA CULLEN, Nia WILSON Ot R07.9 CHEST PAIN, UNSPECIFIED 04/29/2017 Nia RAI MD Ot E11.9 TYPE 2 DIABETES MELLITUS WITHOUT COMPLIC 04/29/2017 Nia RAI MD Ot E78.5 HYPERLIPIDEMIA, UNSPECIFIED 04/29/2017 Nia RAI MD Ot J44.9 CHRONIC OBSTRUCTIVE PULMONARY DISEASE, U 04/29/2017 Nia RAI MD Ot R07.9 CHEST PAIN, UNSPECIFIED 04/29/2017 KISHA BALDWIN MD Ot E11.9 TYPE 2 DIABETES MELLITUS WITHOUT COMPLIC 04/29/2017 KISHA BALDWIN MD Ot E66.01 MORBID (SEVERE) OBESITY DUE TO EXCESS CA 04/29/2017 KISHA BALDWIN MD Ot E78.00 PURE HYPERCHOLESTEROLEMIA, UNSPECIFIED 04/29/2017 KISHA BALDWIN MD Ot F31.9 BIPOLAR DISORDER, UNSPECIFIED 04/29/2017 KISHA BALDWIN MD, Ot F32.9 MAJOR DEPRESSIVE DISORDER, SINGLE EPISOD 04/29/2017 KISHA BALDWIN MD Ot G47.33 OBSTRUCTIVE SLEEP APNEA (ADULT) (PEDIATR 04/29/2017 KISHA BALDWIN MD, Ot J44.9 CHRONIC OBSTRUCTIVE PULMONARY DISEASE, U 04/29/2017 KISHA BALDWIN MD, Ot J45.909 UNSPECIFIED ASTHMA, UNCOMPLICATED 04/29/2017 KISHA BALDWIN MD, Ot K21.9 GASTRO-ESOPHAGEAL REFLUX DISEASE WITHOUT 04/29/2017 KISHA BALDWIN MD Ot M94.261 CHONDROMALACIA, RIGHT KNEE 04/29/2017 KISHA BALDWIN MD, Ot W22.8XXA STRIKING AGAINST OR STRUCK BY OTHER OBJE 04/29/2017 KISHA BALDWIN MD, Ot Z68.41 BODY MASS INDEX (BMI) 40.0-44.9, ADULT 04/29/2017 KISHA BALDWIN MD, Ot Z79.899 OTHER OLERICULTURIST (CURRENT) DRUG THERAPY 04/29/2017 KISHA BALDWIN MD, Ot Z87.891 PERSONAL HISTORY OF NICOTINE DEPENDENCE 04/30/2017 MAJOR GIPSON APRN Ot R06.02 SHORTNESS OF BREATH 04/30/2017 DAVID CULLEN, LAYTON Spencer Ot E11.9 TYPE 2 DIABETES MELLITUS WITHOUT COMPLIC 04/30/2017 DAVID CULLEN, LAYTON Spencer Ot E78.00 PURE HYPERCHOLESTEROLEMIA, UNSPECIFIED 04/30/2017 LAYTON HERNANDEZ MD Ot F31.9 BIPOLAR DISORDER, UNSPECIFIED 04/30/2017 LAYTON HERNANDEZ MD Ot F41.9 ANXIETY DISORDER, UNSPECIFIED 04/30/2017 LAYTON HERNANDEZ MD Ot G25.81 RESTLESS LEGS SYNDROME 04/30/2017 LAYTON HERNANDEZ MD Ot G47.30 SLEEP APNEA, UNSPECIFIED 04/30/2017 LAYTON HERNANDEZ MD, Ot J44.9 CHRONIC OBSTRUCTIVE PULMONARY DISEASE, U 04/30/2017 LAYTON HERNANDEZ MD Ot K21.9 GASTRO-ESOPHAGEAL REFLUX DISEASE WITHOUT 04/30/2017 LAYTON HERNANDEZ MD Ot M19.90 UNSPECIFIED OSTEOARTHRITIS, UNSPECIFIED 04/30/2017 LAYTON HERNANDEZ MD, Ot M54.6 PAIN IN THORACIC SPINE 04/30/2017 LAYTON HERNANDEZ MD, Ot M79.1 MYALGIA 04/30/2017 LAYTON HERNANDEZ MD, Ot R07.81 PLEURODYNIA 04/30/2017 LAYTON HERNANDEZ MD, Ot R11.0 NAUSEA 04/30/2017 LAYTON HERNANDEZ MD, Ot R51 HEADACHE 04/30/2017 LAYTON HERNANDEZ MD, Ot Z79.84 SKILLED NURSING (CURRENT) USE OF ORAL HYPOGLYC 04/30/2017 LAYTON HERNANDEZ MD, Ot Z87.2 PERSONAL HISTORY OF DISEASES OF THE SKIN 04/30/2017 LAYTON HERNANDEZ MD, Ot Z87.891 PERSONAL HISTORY OF NICOTINE DEPENDENCE 04/30/2017 LAYTON HERNANDEZ MD, Ot 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 04/30/2017 LAYTON HERNANDEZ MD, Ot Z98.890 OTHER SPECIFIED POSTPROCEDURAL STATES 05/02/2017 LAYTON HERNANDEZ MD Ot E11.9 TYPE 2 DIABETES MELLITUS WITHOUT COMPLIC 05/02/2017 LAYTON HERNANDEZ MD Ot E78.00 PURE HYPERCHOLESTEROLEMIA, UNSPECIFIED 05/02/2017 LAYTON HERNANDEZ MD, Ot F31.9 BIPOLAR DISORDER, UNSPECIFIED 05/02/2017 LAYTON HERNANDEZ MD, Ot F41.9 ANXIETY DISORDER, UNSPECIFIED 05/02/2017 LAYTON HERNANDEZ MD Ot G25.81 RESTLESS LEGS SYNDROME 05/02/2017 LAYTON HERNANDEZ MD, Ot G47.30 SLEEP APNEA, UNSPECIFIED 05/02/2017 LAYTON HERNANDEZ MD, Ot J44.9 CHRONIC OBSTRUCTIVE PULMONARY DISEASE, U 05/02/2017 LAYTON HERNANDEZ MD, Ot K21.9 GASTRO-ESOPHAGEAL REFLUX DISEASE WITHOUT 05/02/2017 LAYTON HERNANDEZ MD Ot M19.90 UNSPECIFIED OSTEOARTHRITIS, UNSPECIFIED 05/02/2017 LAYTON HERNANDEZ MD, Ot M54.6 PAIN IN THORACIC SPINE 05/02/2017 LAYTON HERNANDEZ MD, Ot M79.1 MYALGIA 05/02/2017 LAYTON HERNANDEZ MD, Ot R07.81 PLEURODYNIA 05/02/2017 LAYTON HERNANDEZ MD Ot R11.0 NAUSEA 05/02/2017 LAYTON HERNANDEZ MD, Ot R51 HEADACHE 05/02/2017 LAYTON HERNANDEZ MD, Ot Z79.84 SKILLED NURSING (CURRENT) USE OF ORAL HYPOGLYC 05/02/2017 LAYTON HERNANDEZ MD, Ot Z87.2 PERSONAL HISTORY OF DISEASES OF THE SKIN 05/02/2017 LAYTON HERNANDEZ MD, Ot Z87.891 PERSONAL HISTORY OF NICOTINE DEPENDENCE 05/02/2017 LAYTON HERNANDEZ MD, Ot 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 05/02/2017 LAYTON HERNANDEZ MD, Ot Z98.890 OTHER SPECIFIED POSTPROCEDURAL STATES 05/02/2017 LAYTON HERNANDEZ MD, Ot E11.9 TYPE 2 DIABETES MELLITUS WITHOUT COMPLIC 05/02/2017 LAYTON HERNANDEZ MD Ot E78.00 PURE HYPERCHOLESTEROLEMIA, UNSPECIFIED 05/02/2017 LAYTON HERNANDEZ MD, Ot F31.9 BIPOLAR DISORDER, UNSPECIFIED 05/02/2017 LAYTON HERNANDEZ MD, Ot F41.9 ANXIETY DISORDER, UNSPECIFIED 05/02/2017 LAYTON HERNANDEZ MD, Ot G25.81 RESTLESS LEGS SYNDROME 05/02/2017 LAYTON HERNANDEZ MD, Ot G47.30 SLEEP APNEA, UNSPECIFIED 05/02/2017 LAYTON HERNANDEZ MD, Ot J44.9 CHRONIC OBSTRUCTIVE PULMONARY DISEASE, U 05/02/2017 LAYTON HERNANDEZ MD, Ot K21.9 GASTRO-ESOPHAGEAL REFLUX DISEASE WITHOUT 05/02/2017 LAYTON HERNANDEZ MD Ot M19.90 UNSPECIFIED OSTEOARTHRITIS, UNSPECIFIED 05/02/2017 LAYTON HERNANDEZ MD Ot M54.6 PAIN IN THORACIC SPINE 05/02/2017 LAYTON HERNANDEZ MD, Ot M79.1 MYALGIA 05/02/2017 DAVID CULLEN, LAYTON Spencer Ot R07.81 PLEURODYNIA 05/02/2017 LAYTON HERNANDEZ MD Ot R11.0 NAUSEA 05/02/2017 LAYTON HERNANDEZ MD, Ot R51 HEADACHE 05/02/2017 LAYTON HERNANDEZ MD Ot Z79.84 OLERICULTURIST (CURRENT) USE OF ORAL HYPOGLYC 05/02/2017 LAYTON HERNANDEZ MD Ot Z87.2 PERSONAL HISTORY OF DISEASES OF THE SKIN 05/02/2017 LAYTON HERNANDEZ MD Ot Z87.891 PERSONAL HISTORY OF NICOTINE DEPENDENCE 05/02/2017 LAYTON HERNANDEZ MD Ot 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 05/02/2017 LAYTON HERNANDEZ MD Ot Z98.890 OTHER SPECIFIED POSTPROCEDURAL STATES 05/07/2017 JANELLE ESPITIA APRN Ot E78.00 PURE HYPERCHOLESTEROLEMIA, UNSPECIFIED 05/07/2017 JANELLE ESPITIA APRN Ot F31.9 BIPOLAR DISORDER, UNSPECIFIED 05/07/2017 JANELLE ESPITIA APRN Ot F41.9 ANXIETY DISORDER, UNSPECIFIED 05/07/2017 JANELLE ESPITIA APRN Ot G47.30 SLEEP APNEA, UNSPECIFIED 05/07/2017 JANELLE ESPITIA APRN Ot J44.9 CHRONIC OBSTRUCTIVE PULMONARY DISEASE, U 05/07/2017 JANELLE ESPITIA APRN Ot K21.9 GASTRO-ESOPHAGEAL REFLUX DISEASE WITHOUT 05/07/2017 JANELLE ESPITIA APRN Ot M79.602 PAIN IN LEFT ARM 05/07/2017 JANELLE ESPITIA APRN Ot S40.022A CONTUSION OF LEFT UPPER ARM, INITIAL ENC 05/07/2017 JANELLE ESPITIA APRN Ot W17.89XA OTHER FALL FROM ONE LEVEL TO ANOTHER, IN 05/07/2017 JANELLE ESPITIA APRN Ot Y92.[address] IN [facility] ([facility]) 05/07/2017 JANELLE ESPITIA APRN Ot Z79.84 SKILLED NURSING (CURRENT) USE OF ORAL HYPOGLYC 05/07/2017 JANELLE ESPITIA APRN Ot Z87.19 PERSONAL HISTORY OF OTHER DISEASES OF TH 05/07/2017 JANELLE ESPITIA APRN Ot Z87.440 PERSONAL HISTORY OF URINARY (TRACT) INFE 05/07/2017 JANELLE ESPITIA APRN Ot Z87.891 PERSONAL HISTORY OF NICOTINE DEPENDENCE 05/07/2017 JANELLE ESPITIA APRN Ot Z90.710 ACQUIRED ABSENCE OF BOTH CERVIX AND UTER 05/09/2017 JANELLE ESPITIA APRN Ot E78.00 PURE HYPERCHOLESTEROLEMIA, UNSPECIFIED 05/09/2017 JANELLE ESPITIA APRN Ot F31.9 BIPOLAR DISORDER, UNSPECIFIED 05/09/2017 JANELLE ESPITIA APRN Ot F41.9 ANXIETY DISORDER, UNSPECIFIED 05/09/2017 JANELLE ESPITIA APRN Ot G47.30 SLEEP APNEA, UNSPECIFIED 05/09/2017 JANELLE ESPITIA APRN Ot J44.9 CHRONIC OBSTRUCTIVE PULMONARY DISEASE, U 05/09/2017 JANELLE ESPITIA APRN Ot K21.9 GASTRO-ESOPHAGEAL REFLUX DISEASE WITHOUT 05/09/2017 JANELLE ESPITIA APRN Ot M79.602 PAIN IN LEFT ARM 05/09/2017 JANELLE ESPITIA APRN Ot S40.022A CONTUSION OF LEFT UPPER ARM, INITIAL ENC 05/09/2017 JANELLE ESPITIA APRN Ot W17.89XA OTHER FALL FROM ONE LEVEL TO ANOTHER, IN 05/09/2017 JANELLE ESPITIA APRN Ot Y92.[address] IN [facility] ([facility]) 05/09/2017 JANELLE ESPITIA APRN Ot Z79.84 SKILLED NURSING (CURRENT) USE OF ORAL HYPOGLYC 05/09/2017 JANELLE ESPITIA APRN Ot Z87.19 PERSONAL HISTORY OF OTHER DISEASES OF TH 05/09/2017 JANELLE ESPITIA APRN Ot Z87.440 PERSONAL HISTORY OF URINARY (TRACT) INFE 05/09/2017 JANELLE ESPITIA APRN Ot Z87.891 PERSONAL HISTORY OF NICOTINE DEPENDENCE 05/09/2017 JANELLE ESPITIA APRN Ot Z90.710 ACQUIRED ABSENCE OF BOTH CERVIX AND UTER 05/27/2017 MAJOR GIPSON [employer]IGARET[employer] MACHINE FILLER Ot R06.02 SHORTNESS OF BREATH 05/28/2017 MAJOR GIPSON CIGARETTE MACHINE FILLER Ot M79.604 PAIN IN RIGHT LEG 05/28/2017 MAJOR GIPSON [employer]IGARET[employer] MACHINE FILLER Ot M79.605 PAIN IN LEFT LEG 05/28/2017 MAJOR GIPSON APRN Ot R06.00 DYSPNEA, UNSPECIFIED 05/28/2017 MAJOR GIPSON APRN Ot R22.43 LOCALIZED SWELLING, MASS AND LUMP, LOWER 06/05/2017 MAJOR GIPSON APRN Ot R06.02 SHORTNESS OF BREATH 06/06/2017 MAJOR GIPSON [employer]IGARET[employer] MACHINE FILLER Ot M79.604 PAIN IN RIGHT LEG 06/06/2017 MAJOR GIPSON APRN Ot M79.605 PAIN IN LEFT LEG 06/06/2017 MAJOR GIPSON APRN Ot R06.00 DYSPNEA, UNSPECIFIED 06/06/2017 MAJOR GIPSON APRN Ot R22.43 LOCALIZED SWELLING, MASS AND LUMP, LOWER 06/20/2017 DONNA CULLEN, NICKY R Ot Z12.31 ENCNTR SCREEN MAMMOGRAM FOR MALIGNANT NE 06/27/2017 DONNA CULLEN, NICKY Lawrence Ot Z12.31 ENCNTR SCREEN MAMMOGRAM FOR MALIGNANT NE 08/10/2017 JANELLE ESPITIA APRN Ot E78.00 PURE HYPERCHOLESTEROLEMIA, UNSPECIFIED 08/10/2017 JANELLE ESPITIA APRN Ot F31.9 BIPOLAR DISORDER, UNSPECIFIED 08/10/2017 JANELLE ESPITIA APRN Ot F41.9 ANXIETY DISORDER, UNSPECIFIED 08/10/2017 JANELLE ESPITIA APRN Ot G47.30 SLEEP APNEA, UNSPECIFIED 08/10/2017 JANELLE ESPITIA APRN Ot J44.9 CHRONIC OBSTRUCTIVE PULMONARY DISEASE, U 08/10/2017 JANELLE ESPITIA APRN Ot K21.9 GASTRO-ESOPHAGEAL REFLUX DISEASE WITHOUT 08/10/2017 JANELLE ESPITIA APRN Ot R07.9 CHEST PAIN, UNSPECIFIED 08/10/2017 JANELLE ESPITIA APRN Ot R53.81 OTHER MALAISE 08/10/2017 JANELLE ESPITIA APRN Ot Z79.84 OLERICULTURIST (CURRENT) USE OF ORAL HYPOGLYC 08/10/2017 JANELLE ESPITIA APRN Ot Z87.19 PERSONAL HISTORY OF OTHER DISEASES OF TH 08/10/2017 JANELLE ESPITIA APRN Ot Z87.448 PERSONAL HISTORY OF OTHER DISEASES OF UR 08/10/2017 JANELLE ESPITIA APRN Ot Z87.891 PERSONAL HISTORY OF NICOTINE DEPENDENCE 08/10/2017 JANELLE ESPITIA APRN Ot 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 Results Test Result Range Methicillin resistant Staphylococcus aureus (MRSA) screening culture - 13:30 Methicillin resistant Staphylococcus aureus (MRSA) screening culture NEG NRG Capillary blood glucose measurement by glucometer (mass/volume) - 05/08/16 10: 13 Capillary blood glucose measurement by glucometer (mass/volume) 149 mg/dL 70-110 Complete urinalysis with reflex to culture - 06/09/16 16:24 Urine color determination YELLOW NRG Urine clarity determination SLIGHTLY CLOUDY NRG Urine pH measurement by test strip 5 5-9 Specific gravity of urine by test strip 1.030 1.016- 1.022 Urine protein assay by test strip, semi-quantitative 2+ NEGATIVE Urine glucose detection by automated test strip NEGATIVE NEGATIVE Erythrocytes detection in urine sediment by light microscopy NEGATIVE NEGATIVE Urine ketones detection by automated test strip NEGATIVE NEGATIVE Urine nitrite detection by test strip POSITIVE NEGATIVE Urine total bilirubin detection by test strip NEGATIVE NEGATIVE Urine urobilinogen measurement by automated test strip (mass/volume) NORMAL NORMAL Urine leukocyte esterase detection by dipstick 1+ NEGATIVE Automated urine sediment erythrocyte count by microscopy (number/high power field) NONE NRG Automated urine sediment leukocyte count by microscopy (number/high power field ) [HPF] NRG Bacteria detection in urine sediment by light microscopy FEW NRG Squamous epithelial cells detection in urine sediment by light microscopy 5-10 NRG Crystals detection in urine sediment by light microscopy PRESENT NRG Casts detection in urine sediment by light microscopy NONE NRG Mucus detection in urine sediment by light microscopy NEGATIVE NRG Complete urinalysis with reflex to culture YES NRG Uric acid crystals detection in urine sediment by light microscopy LARGE NRG Bacterial urine culture - 06/09/16 16:24 Bacterial urine culture [id number] NRG COLONY COUNT <10,000 NRG FTX;REPORT[place]ITIVITY [place] 130[address], 9-14-16 NRG URINE CULTURE RESULTS PLUS NRG Bacterial susceptibility panel - 06/09/16 16:24 Gentamicin susceptibility test by minimum inhibitory concentration S NRG Vancomycin susceptibility test by minimum inhibitory concentration < = NRG Levofloxacin susceptibility test by minimum inhibitory concentration 0.5 NRG Tetracycline susceptibility test by minimum inhibitory concentration >= NRG Ampicillin susceptibility test by minimum inhibitory concentration < = NRG Nitrofurantoin susceptibility test by minimum inhibitory concentration 128 NRG Complete blood count (CBC) with automated white blood cell (WBC) differential - 06/09/16 18:13 Blood leukocytes automated count (number/volume) 12.6 10*3/uL 4.3-11.0 Blood erythrocytes automated count (number/volume) 5.06 10*6/uL 4.35-5.85 Venous blood hemoglobin measurement (mass/volume) 14.3 g/dL 11.5-16.0 Blood hematocrit (volume fraction) 42 % 35-52 Automated erythrocyte mean corpuscular volume 82 [foz_us] 80-99 Automated erythrocyte mean corpuscular hemoglobin (mass per erythrocyte) 28 pg 25-34 Automated erythrocyte mean corpuscular hemoglobin concentration measurement ( mass/volume) 35 g/dL 32-36 Automated erythrocyte distribution width ratio 13.6 % 10.0-14.5 Automated blood platelet count (count/volume) 214 10*3/uL 130-400 Automated blood platelet mean volume measurement 12.0 [foz_us] 7.4-10.4 Automated blood neutrophils/100 leukocytes 62 % 42-75 Automated blood lymphocytes/100 leukocytes 32 % 12-44 Blood monocytes/100 leukocytes 5 % 0-12 Automated blood eosinophils/100 leukocytes 2 % 0-10 Automated blood basophils/100 leukocytes 0 % 0-10 Blood neutrophils automated count (number/volume) 7.8 10*3 1.8-7.8 Blood lymphocytes automated count (number/volume) 4.0 10*3 1.0-4.0 Blood monocytes automated count (number/volume) 0.6 10*3 0.0-1.0 Automated eosinophil count 0.2 10*3/uL 0.0-0.3 Automated blood basophil count (count/volume) 0.0 10*3/uL 0.0-0.1 Comprehensive metabolic panel - 06/09/16 18:13 Serum or plasma sodium measurement (moles/volume) 135 mmol/L 135-145 Serum or plasma potassium measurement (moles/volume) 4.3 mmol/L 3.6-5.0 Serum or plasma chloride measurement (moles/volume) 101 mmol/L 98-107 Carbon dioxide 21 mmol/L 21-32 Serum or plasma anion gap determination (moles/volume) 13 mmol/L 5-14 Serum or plasma urea nitrogen measurement (mass/volume) 14 mg/dL 7-18 Serum or plasma creatinine measurement (mass/volume) 1.16 mg/dL 0.60-1.30 Serum or plasma urea nitrogen/creatinine mass ratio 12 NRG Serum or plasma creatinine measurement with calculation of estimated glomerular filtration rate 49 NRG Serum or plasma glucose measurement (mass/volume) 154 mg/dL 70-105 Serum or plasma calcium measurement (mass/volume) 9.7 mg/dL 8.5-10.1 Serum or plasma total bilirubin measurement (mass/volume) 0.3 mg/dL 0.1-1.0 Serum or plasma alkaline phosphatase measurement (enzymatic activity/volume) 135 U/L 40-136 Serum or plasma aspartate aminotransferase measurement (enzymatic activity/ volume) 31 U/L 5-34 Serum or plasma alanine aminotransferase measurement (enzymatic activity/volume ) 39 U/L 0-55 Serum or plasma protein measurement (mass/volume) 7.8 g/dL 6.4-8.2 Serum or plasma albumin measurement (mass/volume) 4.3 g/dL 3.2-4.5 Complete blood count (CBC) with automated white blood cell (WBC) differential - 06/18/16 15:30 Blood leukocytes automated count (number/volume) 11.8 10*3/uL 4.3-11.0 Blood erythrocytes automated count (number/volume) 4.80 10*6/uL 4.35-5.85 Venous blood hemoglobin measurement (mass/volume) 13.6 g/dL 11.5-16.0 Blood hematocrit (volume fraction) 40 % 35-52 Automated erythrocyte mean corpuscular volume 84 [foz_us] 80-99 Automated erythrocyte mean corpuscular hemoglobin (mass per erythrocyte) 28 pg 25-34 Automated erythrocyte mean corpuscular hemoglobin concentration measurement ( mass/volume) 34 g/dL 32-36 Automated erythrocyte distribution width ratio 13.6 % 10.0-14.5 Automated blood platelet count (count/volume) 206 10*3/uL 130-400 Automated blood platelet mean volume measurement 12.1 [foz_us] 7.4-10.4 Automated blood neutrophils/100 leukocytes 64 % 42-75 Automated blood lymphocytes/100 leukocytes 28 % 12-44 Blood monocytes/100 leukocytes 6 % 0-12 Automated blood eosinophils/100 leukocytes 2 % 0-10 Automated blood basophils/100 leukocytes 0 % 0-10 Blood neutrophils automated count (number/volume) 7.5 10*3 1.8-7.8 Blood lymphocytes automated count (number/volume) 3.3 10*3 1.0-4.0 Blood monocytes automated count (number/volume) 0.7 10*3 0.0-1.0 Automated eosinophil count 0.2 10*3/uL 0.0-0.3 Automated blood basophil count (count/volume) 0.0 10*3/uL 0.0-0.1 Comprehensive metabolic panel - 06/18/16 15:30 Serum or plasma sodium measurement (moles/volume) 140 mmol/L 135-145 Serum or plasma potassium measurement (moles/volume) 3.8 mmol/L 3.6-5.0 Serum or plasma chloride measurement (moles/volume) 105 mmol/L 98-107 Carbon dioxide 26 mmol/L 21-32 Serum or plasma anion gap determination (moles/volume) 9 mmol/L 5-14 Serum or plasma urea nitrogen measurement (mass/volume) 12 mg/dL 7-18 Serum or plasma creatinine measurement (mass/volume) 0.94 mg/dL 0.60-1.30 Serum or plasma urea nitrogen/creatinine mass ratio 13 NRG Serum or plasma creatinine measurement with calculation of estimated glomerular filtration rate > NRG Serum or plasma glucose measurement (mass/volume) 187 mg/dL 70-105 Serum or plasma calcium measurement (mass/volume) 9.7 mg/dL 8.5-10.1 Serum or plasma total bilirubin measurement (mass/volume) 0.3 mg/dL 0.1-1.0 Serum or plasma alkaline phosphatase measurement (enzymatic activity/volume) 138 U/L 40-136 Serum or plasma aspartate aminotransferase measurement (enzymatic activity/ volume) 22 U/L 5-34 Serum or plasma alanine aminotransferase measurement (enzymatic activity/volume ) 30 U/L 0-55 Serum or plasma protein measurement (mass/volume) 7.0 g/dL 6.4-8.2 Serum or plasma albumin measurement (mass/volume) 4.1 g/dL 3.2-4.5 Complete urinalysis with reflex to culture - 06/18/16 15:30 Urine color determination YELLOW NRG Urine clarity determination CLEAR NRG Urine pH measurement by test strip 5 5-9 Specific gravity of urine by test strip 1.030 1.016- 1.022 Urine protein assay by test strip, semi-quantitative 2+ NEGATIVE Urine glucose detection by automated test strip 2+ NEGATIVE Erythrocytes detection in urine sediment by light microscopy NEGATIVE NEGATIVE Urine ketones detection by automated test strip 1+ NEGATIVE Urine nitrite detection by test strip NEGATIVE NEGATIVE Urine total bilirubin detection by test strip 1+ NEGATIVE Urine urobilinogen measurement by automated test strip (mass/volume) 1 mg/dL NORMAL Urine leukocyte esterase detection by dipstick 1+ NEGATIVE Automated urine sediment erythrocyte count by microscopy (number/high power field) NONE NRG Automated urine sediment leukocyte count by microscopy (number/high power field ) [HPF] NRG Bacteria detection in urine sediment by light microscopy FEW NRG Squamous epithelial cells detection in urine sediment by light microscopy 10-25 NRG Crystals detection in urine sediment by light microscopy PRESENT NRG Casts detection in urine sediment by light microscopy NONE NRG Mucus detection in urine sediment by light microscopy MODERATE NRG Complete urinalysis with reflex to culture NO NRG Calcium oxalate crystals detection in urine sediment by light microscopy FEW NRG Complete blood count (CBC) with automated white blood cell (WBC) differential - 07/02/16 14:40 Blood leukocytes automated count (number/volume) 8.0 10*3/uL 4.3-11.0 Blood erythrocytes automated count (number/volume) 4.63 10*6/uL 4.35-5.85 Venous blood hemoglobin measurement (mass/volume) 13.3 g/dL 11.5-16.0 Blood hematocrit (volume fraction) 39 % 35-52 Automated erythrocyte mean corpuscular volume 84 [foz_us] 80-99 Automated erythrocyte mean corpuscular hemoglobin (mass per erythrocyte) 29 pg 25-34 Automated erythrocyte mean corpuscular hemoglobin concentration measurement ( mass/volume) 34 g/dL 32-36 Automated erythrocyte distribution width ratio 13.7 % 10.0-14.5 Automated blood platelet count (count/volume) 202 10*3/uL 130-400 Automated blood platelet mean volume measurement 12.8 [foz_us] 7.4-10.4 Automated blood neutrophils/100 leukocytes 58 % 42-75 Automated blood lymphocytes/100 leukocytes 34 % 12-44 Blood monocytes/100 leukocytes 6 % 0-12 Automated blood eosinophils/100 leukocytes 2 % 0-10 Automated blood basophils/100 leukocytes 0 % 0-10 Blood neutrophils automated count (number/volume) 4.7 10*3 1.8-7.8 Blood lymphocytes automated count (number/volume) 2.7 10*3 1.0-4.0 Blood monocytes automated count (number/volume) 0.5 10*3 0.0-1.0 Automated eosinophil count 0.2 10*3/uL 0.0-0.3 Automated blood basophil count (count/volume) 0.0 10*3/uL 0.0-0.1 Complete urinalysis with reflex to culture - 07/02/16 14:40 Urine color determination YELLOW NRG Urine clarity determination CLEAR NRG Urine pH measurement by test strip 6.5 5-9 Specific gravity of urine by test strip 1.015 1.016- 1.022 Urine protein assay by test strip, semi-quantitative NEGATIVE NEGATIVE Urine glucose detection by automated test strip NEGATIVE NEGATIVE Erythrocytes detection in urine sediment by light microscopy NEGATIVE NEGATIVE Urine ketones detection by automated test strip NEGATIVE NEGATIVE Urine nitrite detection by test strip NEGATIVE NEGATIVE Urine total bilirubin detection by test strip NEGATIVE NEGATIVE Urine urobilinogen measurement by automated test strip (mass/volume) 1 mg/dL NORMAL Urine leukocyte esterase detection by dipstick 1+ NEGATIVE Automated urine sediment erythrocyte count by microscopy (number/high power field) NONE NRG Automated urine sediment leukocyte count by microscopy (number/high power field ) [HPF] NRG Bacteria detection in urine sediment by light microscopy FEW NRG Squamous epithelial cells detection in urine sediment by light microscopy 2-5 NRG Crystals detection in urine sediment by light microscopy NONE NRG Casts detection in urine sediment by light microscopy NONE NRG Mucus detection in urine sediment by light microscopy NEGATIVE NRG Complete urinalysis with reflex to culture NO NRG Comprehensive metabolic panel - 07/02/16 14:40 Serum or plasma sodium measurement (moles/volume) 136 mmol/L 135-145 Serum or plasma potassium measurement (moles/volume) 4.2 mmol/L 3.6-5.0 Serum or plasma chloride measurement (moles/volume) 103 mmol/L 98-107 Carbon dioxide 23 mmol/L 21-32 Serum or plasma anion gap determination (moles/volume) 10 mmol/L 5-14 Serum or plasma urea nitrogen measurement (mass/volume) 11 mg/dL 7-18 Serum or plasma creatinine measurement (mass/volume) 0.82 mg/dL 0.60-1.30 Serum or plasma urea nitrogen/creatinine mass ratio 13 NRG Serum or plasma creatinine measurement with calculation of estimated glomerular filtration rate > NRG Serum or plasma glucose measurement (mass/volume) 150 mg/dL 70-105 Serum or plasma calcium measurement (mass/volume) 9.4 mg/dL 8.5-10.1 Serum or plasma total bilirubin measurement (mass/volume) 0.4 mg/dL 0.1-1.0 Serum or plasma alkaline phosphatase measurement (enzymatic activity/volume) 130 U/L 40-136 Serum or plasma aspartate aminotransferase measurement (enzymatic activity/ volume) 26 U/L 5-34 Serum or plasma alanine aminotransferase measurement (enzymatic activity/volume ) 30 U/L 0-55 Serum or plasma protein measurement (mass/volume) 7.1 g/dL 6.4-8.2 Serum or plasma albumin measurement (mass/volume) 4.0 g/dL 3.2-4.5 Serum or plasma C reactive protein measurement (mass/volume) - 07/02/16 14:40 Serum or plasma C reactive protein measurement (mass/volume) 1.15 mg /dL 0.00-0.50 Complete blood count (CBC) with automated white blood cell (WBC) differential - 08/03/16 14:22 Blood leukocytes automated count (number/volume) 8.4 10*3/uL 4.3-11.0 Blood erythrocytes automated count (number/volume) 4.45 10*6/uL 4.35-5.85 Venous blood hemoglobin measurement (mass/volume) 12.7 g/dL 11.5-16.0 Blood hematocrit (volume fraction) 37 % 35-52 Automated erythrocyte mean corpuscular volume 83 [foz_us] 80-99 Automated erythrocyte mean corpuscular hemoglobin (mass per erythrocyte) 29 pg 25-34 Automated erythrocyte mean corpuscular hemoglobin concentration measurement ( mass/volume) 34 g/dL 32-36 Automated erythrocyte distribution width ratio 13.6 % 10.0-14.5 Automated blood platelet count (count/volume) 192 10*3/uL 130-400 Automated blood platelet mean volume measurement 11.8 [foz_us] 7.4-10.4 Automated blood neutrophils/100 leukocytes 60 % 42-75 Automated blood lymphocytes/100 leukocytes 33 % 12-44 Blood monocytes/100 leukocytes 6 % 0-12 Automated blood eosinophils/100 leukocytes 2 % 0-10 Automated blood basophils/100 leukocytes 0 % 0-10 Blood neutrophils automated count (number/volume) 5.0 10*3 1.8-7.8 Blood lymphocytes automated count (number/volume) 2.7 10*3 1.0-4.0 Blood monocytes automated count (number/volume) 0.5 10*3 0.0-1.0 Automated eosinophil count 0.2 10*3/uL 0.0-0.3 Automated blood basophil count (count/volume) 0.0 10*3/uL 0.0-0.1 Complete blood count (CBC) with automated white blood cell (WBC) differential - 08/15/16 11:03 Blood leukocytes automated count (number/volume) 11.9 10*3/uL 4.3-11.0 Blood erythrocytes automated count (number/volume) 4.78 10*6/uL 4.35-5.85 Venous blood hemoglobin measurement (mass/volume) 13.6 g/dL 11.5-16.0 Blood hematocrit (volume fraction) 40 % 35-52 Automated erythrocyte mean corpuscular volume 83 [foz_us] 80-99 Automated erythrocyte mean corpuscular hemoglobin (mass per erythrocyte) 29 pg 25-34 Automated erythrocyte mean corpuscular hemoglobin concentration measurement ( mass/volume) 34 g/dL 32-36 Automated erythrocyte distribution width ratio 14.2 % 10.0-14.5 Automated blood platelet count (count/volume) 204 10*3/uL 130-400 Automated blood platelet mean volume measurement 12.3 [foz_us] 7.4-10.4 Automated blood neutrophils/100 leukocytes 85 % 42-75 Automated blood lymphocytes/100 leukocytes 12 % 12-44 Blood monocytes/100 leukocytes 3 % 0-12 Automated blood eosinophils/100 leukocytes 0 % 0-10 Automated blood basophils/100 leukocytes 0 % 0-10 Blood neutrophils automated count (number/volume) 10.1 10*3 1.8-7.8 Blood lymphocytes automated count (number/volume) 1.4 10*3 1.0-4.0 Blood monocytes automated count (number/volume) 0.3 10*3 0.0-1.0 Automated eosinophil count 0.0 10*3/uL 0.0-0.3 Automated blood basophil count (count/volume) 0.0 10*3/uL 0.0-0.1 Serum or plasma troponin i.cardiac measurement (mass/volume) - 08/15/16 11:03 Serum or plasma troponin i.cardiac measurement (mass/volume) < ng/ mL <0.30 Streptococcus pyogenes antigen detection - 09/13/16 05:00 Streptococcus pyogenes antigen detection POSITIVE NEGATIVE Complete blood count (CBC) with automated white blood cell (WBC) differential - 09/13/16 05:10 Blood leukocytes automated count (number/volume) 10.7 10*3/uL 4.3-11.0 Blood erythrocytes automated count (number/volume) 4.59 10*6/uL 4.35-5.85 Venous blood hemoglobin measurement (mass/volume) 13.0 g/dL 11.5-16.0 Blood hematocrit (volume fraction) 39 % 35-52 Automated erythrocyte mean corpuscular volume 84 [foz_us] 80-99 Automated erythrocyte mean corpuscular hemoglobin (mass per erythrocyte) 28 pg 25-34 Automated erythrocyte mean corpuscular hemoglobin concentration measurement ( mass/volume) 34 g/dL 32-36 Automated erythrocyte distribution width ratio 13.7 % 10.0-14.5 Automated blood platelet count (count/volume) 165 10*3/uL 130-400 Automated blood platelet mean volume measurement 11.7 [foz_us] 7.4-10.4 Automated blood neutrophils/100 leukocytes 83 % 42-75 Automated blood lymphocytes/100 leukocytes 12 % 12-44 Blood monocytes/100 leukocytes 5 % 0-12 Automated blood eosinophils/100 leukocytes 1 % 0-10 Automated blood basophils/100 leukocytes 0 % 0-10 Blood neutrophils automated count (number/volume) 8.9 10*3 1.8-7.8 Blood lymphocytes automated count (number/volume) 1.2 10*3 1.0-4.0 Blood monocytes automated count (number/volume) 0.5 10*3 0.0-1.0 Automated eosinophil count 0.1 10*3/uL 0.0-0.3 Automated blood basophil count (count/volume) 0.0 10*3/uL 0.0-0.1 Comprehensive metabolic panel - 09/13/16 05:10 Serum or plasma sodium measurement (moles/volume) 135 mmol/L 135-145 Serum or plasma potassium measurement (moles/volume) 4.3 mmol/L 3.6-5.0 Serum or plasma chloride measurement (moles/volume) 103 mmol/L 98-107 Carbon dioxide 22 mmol/L 21-32 Serum or plasma anion gap determination (moles/volume) 10 mmol/L 5-14 Serum or plasma urea nitrogen measurement (mass/volume) 12 mg/dL 7-18 Serum or plasma creatinine measurement (mass/volume) 0.79 mg/dL 0.60-1.30 Serum or plasma urea nitrogen/creatinine mass ratio 15 NRG Serum or plasma creatinine measurement with calculation of estimated glomerular filtration rate > NRG Serum or plasma glucose measurement (mass/volume) 170 mg/dL 70-105 Serum or plasma calcium measurement (mass/volume) 9.0 mg/dL 8.5-10.1 Serum or plasma total bilirubin measurement (mass/volume) 0.6 mg/dL 0.1-1.0 Serum or plasma alkaline phosphatase measurement (enzymatic activity/volume) 114 U/L 40-136 Serum or plasma aspartate aminotransferase measurement (enzymatic activity/ volume) 23 U/L 5-34 Serum or plasma alanine aminotransferase measurement (enzymatic activity/volume ) 30 U/L 0-55 Serum or plasma protein measurement (mass/volume) 7.0 g/dL 6.4-8.2 Serum or plasma albumin measurement (mass/volume) 4.0 g/dL 3.2-4.5 Lipase - 09/13/16 05:10 Lipase 50 U/L 8-78 Complete urinalysis with reflex to culture - 09/13/16 07:42 Urine color determination YELLOW NRG Urine clarity determination CLEAR NRG Urine pH measurement by test strip 6.5 5-9 Specific gravity of urine by test strip 1.010 1.016- 1.022 Urine protein assay by test strip, semi-quantitative NEGATIVE NEGATIVE Urine glucose detection by automated test strip NEGATIVE NEGATIVE Erythrocytes detection in urine sediment by light microscopy NEGATIVE NEGATIVE Urine ketones detection by automated test strip NEGATIVE NEGATIVE Urine nitrite detection by test strip NEGATIVE NEGATIVE Urine total bilirubin detection by test strip NEGATIVE NEGATIVE Urine urobilinogen measurement by automated test strip (mass/volume) NORMAL NORMAL Urine leukocyte esterase detection by dipstick 1+ NEGATIVE Automated urine sediment erythrocyte count by microscopy (number/high power field) NONE NRG Automated urine sediment leukocyte count by microscopy (number/high power field ) [HPF] NRG Bacteria detection in urine sediment by light microscopy TRACE NRG Squamous epithelial cells detection in urine sediment by light microscopy 2-5 NRG Crystals detection in urine sediment by light microscopy NONE NRG Casts detection in urine sediment by light microscopy NONE NRG Mucus detection in urine sediment by light microscopy NEGATIVE NRG Complete urinalysis with reflex to culture NO NRG Methicillin resistant Staphylococcus aureus (MRSA) screening culture - 14:08 Methicillin resistant Staphylococcus aureus (MRSA) screening culture NEG NRG Urine beta human chorionic gonadotropin (hCG) measurement - 09/19/16 11:25 Urine beta human chorionic gonadotropin (hCG) measurement NEGATIVE NEGATIVE Capillary blood glucose measurement by glucometer (mass/volume) - 09/19/16 11: 34 Capillary blood glucose measurement by glucometer (mass/volume) 123 mg/dL 70-110 Complete urinalysis with reflex to culture - 10/16/16 16:50 Urine color determination YELLOW NRG Urine clarity determination SLIGHTLY CLOUDY NRG Urine pH measurement by test strip 5 5-9 Specific gravity of urine by test strip 1.030 1.016- 1.022 Urine protein assay by test strip, semi-quantitative 1+ NEGATIVE Urine glucose detection by automated test strip NEGATIVE NEGATIVE Erythrocytes detection in urine sediment by light microscopy NEGATIVE NEGATIVE Urine ketones detection by automated test strip NEGATIVE NEGATIVE Urine nitrite detection by test strip NEGATIVE NEGATIVE Urine total bilirubin detection by test strip 1+ NEGATIVE Urine urobilinogen measurement by automated test strip (mass/volume) NORMAL NORMAL Urine leukocyte esterase detection by dipstick 1+ NEGATIVE Automated urine sediment erythrocyte count by microscopy (number/high power field) NONE NRG Automated urine sediment leukocyte count by microscopy (number/high power field ) [HPF] NRG Bacteria detection in urine sediment by light microscopy FEW NRG Squamous epithelial cells detection in urine sediment by light microscopy 25-50 NRG Crystals detection in urine sediment by light microscopy NONE NRG Casts detection in urine sediment by light microscopy NONE NRG Mucus detection in urine sediment by light microscopy NEGATIVE NRG Complete urinalysis with reflex to culture NO NRG Comprehensive metabolic panel - 10/16/16 17:00 Serum or plasma sodium measurement (moles/volume) 138 mmol/L 135-145 Serum or plasma potassium measurement (moles/volume) 4.0 mmol/L 3.6-5.0 Serum or plasma chloride measurement (moles/volume) 103 mmol/L 98-107 Carbon dioxide 24 mmol/L 21-32 Serum or plasma anion gap determination (moles/volume) 11 mmol/L 5-14 Serum or plasma urea nitrogen measurement (mass/volume) 14 mg/dL 7-18 Serum or plasma creatinine measurement (mass/volume) 0.90 mg/dL 0.60-1.30 Serum or plasma urea nitrogen/creatinine mass ratio 16 NRG Serum or plasma creatinine measurement with calculation of estimated glomerular filtration rate > NRG Serum or plasma glucose measurement (mass/volume) 145 mg/dL 70-105 Serum or plasma calcium measurement (mass/volume) 9.5 mg/dL 8.5-10.1 Serum or plasma total bilirubin measurement (mass/volume) 0.4 mg/dL 0.1-1.0 Serum or plasma alkaline phosphatase measurement (enzymatic activity/volume) 105 U/L 40-136 Serum or plasma aspartate aminotransferase measurement (enzymatic activity/ volume) 29 U/L 5-34 Serum or plasma alanine aminotransferase measurement (enzymatic activity/volume ) 33 U/L 0-55 Serum or plasma protein measurement (mass/volume) 7.8 g/dL 6.4-8.2 Serum or plasma albumin measurement (mass/volume) 4.0 g/dL 3.2-4.5 Complete blood count (CBC) with automated white blood cell (WBC) differential - 10/16/16 17:05 Blood leukocytes automated count (number/volume) 10.8 10*3/uL 4.3-11.0 Blood erythrocytes automated count (number/volume) 4.86 10*6/uL 4.35-5.85 Venous blood hemoglobin measurement (mass/volume) 13.8 g/dL 11.5-16.0 Blood hematocrit (volume fraction) 40 % 35-52 Automated erythrocyte mean corpuscular volume 82 [foz_us] 80-99 Automated erythrocyte mean corpuscular hemoglobin (mass per erythrocyte) 28 pg 25-34 Automated erythrocyte mean corpuscular hemoglobin concentration measurement ( mass/volume) 35 g/dL 32-36 Automated erythrocyte distribution width ratio 14.0 % 10.0-14.5 Automated blood platelet count (count/volume) 175 10*3/uL 130-400 Automated blood platelet mean volume measurement 11.9 [foz_us] 7.4-10.4 Automated blood neutrophils/100 leukocytes 55 % 42-75 Automated blood lymphocytes/100 leukocytes 37 % 12-44 Blood monocytes/100 leukocytes 5 % 0-12 Automated blood eosinophils/100 leukocytes 2 % 0-10 Automated blood basophils/100 leukocytes 0 % 0-10 Blood neutrophils automated count (number/volume) 6.0 10*3 1.8-7.8 Blood lymphocytes automated count (number/volume) 4.0 10*3 1.0-4.0 Blood monocytes automated count (number/volume) 0.6 10*3 0.0-1.0 Automated eosinophil count 0.2 10*3/uL 0.0-0.3 Automated blood basophil count (count/volume) 0.0 10*3/uL 0.0-0.1 Serum or plasma C reactive protein measurement (mass/volume) - 10/16/16 17:05 Serum or plasma C reactive protein measurement (mass/volume) 0.59 mg /dL 0.00-0.50 Complete blood count (CBC) with automated white blood cell (WBC) differential - 11/03/16 09:54 Blood leukocytes automated count (number/volume) 8.3 10*3/uL 4.3-11.0 Blood erythrocytes automated count (number/volume) 4.44 10*6/uL 4.35-5.85 Venous blood hemoglobin measurement (mass/volume) 12.5 g/dL 11.5-16.0 Blood hematocrit (volume fraction) 37 % 35-52 Automated erythrocyte mean corpuscular volume 84 [foz_us] 80-99 Automated erythrocyte mean corpuscular hemoglobin (mass per erythrocyte) 28 pg 25-34 Automated erythrocyte mean corpuscular hemoglobin concentration measurement ( mass/volume) 34 g/dL 32-36 Automated erythrocyte distribution width ratio 13.8 % 10.0-14.5 Automated blood platelet count (count/volume) 184 10*3/uL 130-400 Automated blood platelet mean volume measurement 12.1 [foz_us] 7.4-10.4 Automated blood neutrophils/100 leukocytes 63 % 42-75 Automated blood lymphocytes/100 leukocytes 31 % 12-44 Blood monocytes/100 leukocytes 4 % 0-12 Automated blood eosinophils/100 leukocytes 2 % 0-10 Automated blood basophils/100 leukocytes 0 % 0-10 Blood neutrophils automated count (number/volume) 5.2 10*3 1.8-7.8 Blood lymphocytes automated count (number/volume) 2.6 10*3 1.0-4.0 Blood monocytes automated count (number/volume) 0.3 10*3 0.0-1.0 Automated eosinophil count 0.2 10*3/uL 0.0-0.3 Automated blood basophil count (count/volume) 0.0 10*3/uL 0.0-0.1 Comprehensive metabolic panel - 11/03/16 09:54 Serum or plasma sodium measurement (moles/volume) 136 mmol/L 135-145 Serum or plasma potassium measurement (moles/volume) 3.9 mmol/L 3.6-5.0 Serum or plasma chloride measurement (moles/volume) 102 mmol/L 98-107 Carbon dioxide 21 mmol/L 21-32 Serum or plasma anion gap determination (moles/volume) 13 mmol/L 5-14 Serum or plasma urea nitrogen measurement (mass/volume) 11 mg/dL 7-18 Serum or plasma creatinine measurement (mass/volume) 0.83 mg/dL 0.60-1.30 Serum or plasma urea nitrogen/creatinine mass ratio 13 NRG Serum or plasma creatinine measurement with calculation of estimated glomerular filtration rate > NRG Serum or plasma glucose measurement (mass/volume) 131 mg/dL 70-105 Serum or plasma calcium measurement (mass/volume) 9.3 mg/dL 8.5-10.1 Serum or plasma total bilirubin measurement (mass/volume) 0.5 mg/dL 0.1-1.0 Serum or plasma alkaline phosphatase measurement (enzymatic activity/volume) 95 U/L 40-136 Serum or plasma aspartate aminotransferase measurement (enzymatic activity/ volume) 27 U/L 5-34 Serum or plasma alanine aminotransferase measurement (enzymatic activity/volume ) 29 U/L 0-55 Serum or plasma protein measurement (mass/volume) 7.8 g/dL 6.4-8.2 Serum or plasma albumin measurement (mass/volume) 4.0 g/dL 3.2-4.5 Serum or plasma troponin i.cardiac measurement (mass/volume) - 11/03/16 09:54 Serum or plasma troponin i.cardiac measurement (mass/volume) < ng/ mL <0.30 Hemoglobin A1c - 11/03/16 09:54 Hemoglobin A1c 6.8 % 4.5-6.2 Complete urinalysis with reflex to culture - 11/03/16 10:16 Urine color determination YELLOW NRG Urine clarity determination SLIGHTLY CLOUDY NRG Urine pH measurement by test strip 5 5-9 Specific gravity of urine by test strip 1.025 1.016- 1.022 Urine protein assay by test strip, semi-quantitative NEGATIVE NEGATIVE Urine glucose detection by automated test strip NEGATIVE NEGATIVE Erythrocytes detection in urine sediment by light microscopy NEGATIVE NEGATIVE Urine ketones detection by automated test strip NEGATIVE NEGATIVE Urine nitrite detection by test strip NEGATIVE NEGATIVE Urine total bilirubin detection by test strip NEGATIVE NEGATIVE Urine urobilinogen measurement by automated test strip (mass/volume) NORMAL NORMAL Urine leukocyte esterase detection by dipstick 1+ NEGATIVE Automated urine sediment erythrocyte count by microscopy (number/high power field) NONE NRG Automated urine sediment leukocyte count by microscopy (number/high power field ) [HPF] NRG Bacteria detection in urine sediment by light microscopy MODERATE NRG Squamous epithelial cells detection in urine sediment by light microscopy 2-5 NRG Crystals detection in urine sediment by light microscopy NONE NRG Casts detection in urine sediment by light microscopy NONE NRG Mucus detection in urine sediment by light microscopy SMALL NRG Complete urinalysis with reflex to culture YES NRG Bacterial urine culture - 11/03/16 10:16 URINE CULTURE RESULTS <10,000/ML NRG Streptococcus pyogenes antigen detection - 11/03/16 10:21 Streptococcus pyogenes antigen detection POSITIVE NEGATIVE Methicillin resistant Staphylococcus aureus (MRSA) screening culture - 10:50 MRSA SCREEN RESULT MRSA ISOLATED NRG Capillary blood glucose measurement by glucometer (mass/volume) - 03/05/17 08: 56 Capillary blood glucose measurement by glucometer (mass/volume) 133 mg/dL 70-110 Sputum Gram stain - 04/29/17 15:46 GRAM STAIN SPUTUM AND MIXED BACTERIAL TIMOTHY NRG Bacterial sputum culture - 04/29/17 15:46 Bacterial sputum culture NORMAL NRG Complete blood count (CBC) with automated white blood cell (WBC) differential - 04/30/17 15:00 Blood leukocytes automated count (number/volume) 10.5 10*3/uL 4.3-11.0 Blood erythrocytes automated count (number/volume) 4.83 10*6/uL 4.35-5.85 Venous blood hemoglobin measurement (mass/volume) 13.1 g/dL 11.5-16.0 Blood hematocrit (volume fraction) 40 % 35-52 Automated erythrocyte mean corpuscular volume 83 [foz_us] 80-99 Automated erythrocyte mean corpuscular hemoglobin (mass per erythrocyte) 27 pg 25-34 Automated erythrocyte mean corpuscular hemoglobin concentration measurement ( mass/volume) 33 g/dL 32-36 Automated erythrocyte distribution width ratio 14.0 % 10.0-14.5 Automated blood platelet count (count/volume) 195 10*3/uL 130-400 Automated blood platelet mean volume measurement 10.9 [foz_us] 7.4-10.4 Automated blood neutrophils/100 leukocytes 69 % 42-75 Automated blood lymphocytes/100 leukocytes 25 % 12-44 Blood monocytes/100 leukocytes 5 % 0-12 Automated blood eosinophils/100 leukocytes 1 % 0-10 Automated blood basophils/100 leukocytes 0 % 0-10 Blood neutrophils automated count (number/volume) 7.3 10*3 1.8-7.8 Blood lymphocytes automated count (number/volume) 2.6 10*3 1.0-4.0 Blood monocytes automated count (number/volume) 0.5 10*3 0.0-1.0 Automated eosinophil count 0.1 10*3/uL 0.0-0.3 Automated blood basophil count (count/volume) 0.0 10*3/uL 0.0-0.1 Influenza virus A and B antigen detection - 04/30/17 15:00 FLU RESULT NEGATIVE FOR INFLUENZA A AND B ANTIGENS BY [facility] Comprehensive metabolic panel - 04/30/17 15:00 Serum or plasma sodium measurement (moles/volume) 138 mmol/L 135-145 Serum or plasma potassium measurement (moles/volume) 3.8 mmol/L 3.6-5.0 Serum or plasma chloride measurement (moles/volume) 102 mmol/L 98-107 Carbon dioxide 25 mmol/L 21-32 Serum or plasma anion gap determination (moles/volume) 11 mmol/L 5-14 Serum or plasma urea nitrogen measurement (mass/volume) 10 mg/dL 7-18 Serum or plasma creatinine measurement (mass/volume) 0.82 mg/dL 0.60-1.30 Serum or plasma urea nitrogen/creatinine mass ratio 12 [facility] Serum or plasma creatinine measurement with calculation of estimated glomerular filtration rate > [facility] Serum or plasma glucose measurement (mass/volume) 152 mg/dL 70-105 Serum or plasma calcium measurement (mass/volume) 9.7 mg/dL 8.5-10.1 Serum or plasma total bilirubin measurement (mass/volume) 0.5 mg/dL 0.1-1.0 Serum or plasma alkaline phosphatase measurement (enzymatic activity/volume) 105 U/L 40-136 Serum or plasma aspartate aminotransferase measurement (enzymatic activity/ volume) 18 U/L 5-34 Serum or plasma alanine aminotransferase measurement (enzymatic activity/volume ) 29 U/L 0-55 Serum or plasma protein measurement (mass/volume) 7.4 g/dL 6.4-8.2 Serum or plasma albumin measurement (mass/volume) 4.0 g/dL 3.2-4.5 Magnesium - 04/30/17 15:00 Magnesium 1.6 mg/dL 1.8-2.4 Serum or plasma creatine kinase measurement (enzymatic activity/volume) - 04/30 15:00 Serum or plasma creatine kinase measurement (enzymatic activity/volume) 74 U/L 29-168 Serum or plasma C reactive protein measurement (mass/volume) - 04/30/17 15:00 Serum or plasma C reactive protein measurement (mass/volume) 3.45 mg /dL 0.00-0.50 Complete blood count (CBC) with automated white blood cell (WBC) differential - 08/10/17 12:05 Blood leukocytes automated count (number/volume) 8.6 10*3/uL 4.3-11.0 Blood erythrocytes automated count (number/volume) 4.40 10*6/uL 4.35-5.85 Venous blood hemoglobin measurement (mass/volume) 12.0 g/dL 11.5-16.0 Blood hematocrit (volume fraction) 36 % 35-52 Automated erythrocyte mean corpuscular volume 82 [foz_us] 80-99 Automated erythrocyte mean corpuscular hemoglobin (mass per erythrocyte) 27 pg 25-34 Automated erythrocyte mean corpuscular hemoglobin concentration measurement ( mass/volume) 33 g/dL 32-36 Automated erythrocyte distribution width ratio 13.8 % 10.0-14.5 Automated blood platelet count (count/volume) 208 10*3/uL 130-400 Automated blood platelet mean volume measurement 11.4 [foz_us] 7.4-10.4 Automated blood neutrophils/100 leukocytes 62 % 42-75 Automated blood lymphocytes/100 leukocytes 32 % 12-44 Blood monocytes/100 leukocytes 5 % 0-12 Automated blood eosinophils/100 leukocytes 2 % 0-10 Automated blood basophils/100 leukocytes 0 % 0-10 Blood neutrophils automated count (number/volume) 5.3 10*3 1.8-7.8 Blood lymphocytes automated count (number/volume) 2.7 10*3 1.0-4.0 Blood monocytes automated count (number/volume) 0.4 10*3 0.0-1.0 Automated eosinophil count 0.1 10*3/uL 0.0-0.3 Automated blood basophil count (count/volume) 0.0 10*3/uL 0.0-0.1 Comprehensive metabolic panel - 08/10/17 12:05 Serum or plasma sodium measurement (moles/volume) 137 mmol/L 135-145 Serum or plasma potassium measurement (moles/volume) 3.9 mmol/L 3.6-5.0 Serum or plasma chloride measurement (moles/volume) 104 mmol/L 98-107 Carbon dioxide 23 mmol/L 21-32 Serum or plasma anion gap determination (moles/volume) 10 mmol/L 5-14 Serum or plasma urea nitrogen measurement (mass/volume) 11 mg/dL 7-18 Serum or plasma creatinine measurement (mass/volume) 0.74 mg/dL 0.60-1.30 Serum or plasma urea nitrogen/creatinine mass ratio 15 NRG Serum or plasma creatinine measurement with calculation of estimated glomerular filtration rate > NRG Serum or plasma glucose measurement (mass/volume) 134 mg/dL 70-105 Serum or plasma calcium measurement (mass/volume) 8.9 mg/dL 8.5-10.1 Serum or plasma total bilirubin measurement (mass/volume) 0.4 mg/dL 0.1-1.0 Serum or plasma alkaline phosphatase measurement (enzymatic activity/volume) 102 U/L 40-136 Serum or plasma aspartate aminotransferase measurement (enzymatic activity/ volume) 17 U/L 5-34 Serum or plasma alanine aminotransferase measurement (enzymatic activity/volume ) 24 U/L 0-55 Serum or plasma protein measurement (mass/volume) 7.0 g/dL 6.4-8.2 Serum or plasma albumin measurement (mass/volume) 3.8 g/dL 3.2-4.5 Magnesium - 08/10/17 12:05 Magnesium 1.6 mg/dL 1.8-2.4 PT panel in platelet poor plasma by coagulation assay - 08/10/17 12:05 Prothrombin time (PT) in platelet poor plasma by coagulation assay 12.4 s 12.2-14.7 INR in platelet poor plasma or blood by coagulation assay 0.9 0.8-1.4 Activated partial thromboplastin time (aPTT) in platelet poor plasma bycoagulation assay - 11/12/17 12:05 Activated partial thromboplastin time (aPTT) in platelet poor plasma bycoagulation assay 27 s 24-35 Serum or plasma troponin i.cardiac measurement (mass/volume) - 08/10/17 12:05 Serum or plasma troponin i.cardiac measurement (mass/volume) < ng/ mL <0.30 Myoglobin, serum - 08/10/17 12:05 Myoglobin, serum 29.0 ng/mL 10.0-92.0 Serum or plasma lithium measurement (moles/volume) - 08/10/17 12:05 BNP level 38.9 pg/mL <100.0 Encounters ACCT No. Visit Date/Time Discharge Status Pt. Type Provider Facility Loc./Unit Complaint [id number] 08/10/2017 11:29:00 08/10/2017 12:54:00 DIS Emergency JANELLE ESPITIA APRN [facility] ER CP [id number] 05/26/2017 09:37:00 05/26/2017 23:59:59 CLS Outpatient DONNA CULLEN, NICKY Lawrence [facility] RAD SCREENING Z12.31 [id number] 05/08/2017 08:06:00 05/08/2017 23:59:59 CLS Outpatient MAJOR GIPSON APRN [facility] RAD DYSPNEA,LEG PAIN [id number] 05/07/2017 17:59:00 05/07/2017 18:57:00 DIS Emergency JANELLE ESPITIA APRN [facility] ER PT FELL/LT ARM INJ [id number] 04/30/2017 14:21:00 04/30/2017 15:53:00 DIS Emergency DAVID CULLEN, LAYTON Spencer [facility] ER NAUSEA/FEVER [id number] 04/29/2017 15:19:00 04/29/2017 23:59:59 CLS Outpatient MAJOR GIPSON APRN [facility] RAD SOB [id number] 03/05/2017 08:48:00 03/05/2017 12:30:00 DIS Outpatient NICOLASA CULLEN, KISHA Justice [facility] SDC CHONDROMALACIA PATELLA RIGHT KNEE [id number] 02/28/2017 10:26:00 02/28/2017 10:57:00 DIS Outpatient NICOLASA CULLEN, KISHA Justice [facility] PREOP RIGHT KNEE SCOPE [id number] 02/09/2017 08:27:00 02/09/2017 10:43:00 DIS Emergency LAUREL SHEN MD [facility] ER R KNEE TO FOOT PAIN [id number] 01/30/2017 20:20:00 01/30/2017 21:57:00 DIS Emergency JANELLE ESPITIA APRN [facility] ER POSSIBLE BLOOD CLOT IN R LEG [id number] 11/28/2016 11:41:00 11/28/2016 23:59:59 CLS Outpatient Nia RAI MD [facility] CARD COPD,CHEST PAIN,DM [id number] 11/27/2016 12:52:00 11/27/2016 23:59:59 CLS Outpatient Nia RAI MD [facility] CARD COPD,CHEST PAIN,DM,HLP [id number] 11/22/2016 14:41:00 11/22/2016 16:20:00 DIS Emergency RAQUEL ROLDAN [facility] ER YEAST INFECTION [id number] 11/04/2016 09:43:00 11/04/2016 23:59:59 CLS Outpatient KYLAH CULLEN, PATRIC Saucedo [facility] RAD RIGHT LOWER QUAD PAIN [id number] 11/03/2016 09:43:00 11/03/2016 11:33:00 DIS Emergency YOUNG CULLEN, CHRISTO Huston [facility] ER CHEST PAIN/SORE THROAT [id number] 10/16/2016 15:43:00 10/16/2016 18:41:00 DIS Emergency LUNA LEGER MD [facility] ER ABD PAIN [id number] 09/19/2016 11:20:00 09/19/2016 17:40:00 DIS Outpatient STEPHANE KIMBLE DO [facility] SDC DYSKNESIA [id number] 09/16/2016 05:48:00 09/16/2016 14:05:00 DIS Outpatient STEPHANE KIMBLE DO [facility] PREOP DYSKNESIA [id number] 09/13/2016 04:41:00 09/13/2016 08:35:00 DIS Emergency DAVID CULLEN, LAYTON Spencer [facility] ER SORE THROAT, CONSTIPATION,CHEST PAIN [id number] 09/03/2016 09:53:00 09/03/2016 23:59:59 CLS Outpatient NICKY THOMPSON MD [facility] RAD RUQ PAIN [id number] 08/24/2016 15:39:00 08/24/2016 17:34:00 DIS Emergency JANELLE ESPITIA [employer] [facility] ER BACK PAIN [id number] 08/15/2016 10:42:00 08/15/2016 12:18:00 DIS Emergency JANELLE ESPITIA APRN [facility] ER SOA [id number] 08/03/2016 13:42:00 08/03/2016 15:35:00 DIS Emergency YOUNG CULLEN, CHRISTO Huston [facility] ER SORE THROAT/PAINFUL TONGUE /THROAT CLOSING [id number] 08/01/2016 12:59:00 08/01/2016 23:59:59 CLS Outpatient ZAHIRA PETERSEN DO [facility] RAD LUNG NODULE,SOB,MORBID OBESITY,ALLERGIC RHINITIS [id number] 07/18/2016 14:05:00 07/18/2016 15:11:00 DIS Emergency JANELLE ESPITIA [employer] [facility] ER CHEST PAIN [id number] 07/11/2016 07:47:00 07/11/2016 23:59:59 CLS Outpatient EDI FAUSTIN DO [facility] RAD RUQ ABD PAIN [id number] 07/02/2016 12:50:00 07/02/2016 16:44:00 DIS Emergency LUNA LEGER MD [facility] ER LOWER BACK PAIN/ VOMITING [id number] 06/28/2016 12:40:00 06/28/2016 23:59:59 CLS Outpatient EDI FAUSTIN DO [facility] RAD LOWER ABD PAIN,HURTS TO PALPITATE WORSE ON LT SIDE [id number] 06/24/2016 08:15:00 06/24/2016 23:59:59 CLS Preadmit ZAHIRA PETERSEN DO [facility] PULM SOB,DYSPNEA,MORBID OBESITY,ALLERGIC RHINITIS [id number] 04/09/2016 09:00:00 06/23/2016 00:01:00 DIS Outpatient ZAHIRA PETERSEN DO [facility] PULM SOB,DYSPNEA,MORBID OBESITY,ALLERGIC RHINITIS [id number] 06/18/2016 15:18:00 06/18/2016 16:35:00 DIS Emergency JANELLE ESPITIA APRN [facility] ER ABD PAIN,NAUSEA [id number] 06/09/2016 15:11:00 06/09/2016 20:36:00 DIS Emergency LAYTON HERNANDEZ MD [facility] ER LIGHT HEADED/DIZZY/ BACK PAIN [id number] 05/24/2016 08:43:00 05/24/2016 23:59:59 CLS Outpatient EDI FAUSTIN DO [facility] RAD SEVERE L BREAST PAIN [id number] 05/15/2016 11:59:00 05/15/2016 13:58:00 DIS Emergency LUNA LEGER MD [facility] ER BACK/LEFT BREAST PAIN [id number] 05/08/2016 09:48:00 05/08/2016 15:15:00 DIS Outpatient KISHA BALDWIN MD [facility] SDC LEFT KNEE CHONDROMALASIA [id number] 05/01/2016 12:54:00 05/01/2016 16:15:00 DIS Outpatient KISHA BALDWIN MD [facility] PREOP LEFT KNEE CHONDROMALACIA [id number] 03/27/2016 10:23:00 03/27/2016 13:05:00 DIS Emergency LUNA LEGER MD [facility] ER CHEST PAIN [id number] 02/28/2016 08:51:00 02/28/2016 23:59:59 CLS Outpatient ZAHIRA PETERSEN DO [facility] LAB ALLERGIC RHINITIS, SOB DYSPNEA [id number] 02/21/2016 21:45:00 02/22/2016 02:03:00 DIS Emergency RAQUEL ROLDAN [facility] ER BACK PAIN [id number] 02/14/2016 08:34:00 02/14/2016 13:15:00 DIS Outpatient KISHA BALDWIN MD [facility] SDC RIGHT INDEX FINGER CYST [id number] 02/06/2016 14:44:00 02/06/2016 16:11:00 DIS Outpatient KISHA BALDWIN MD [facility] PREOP RIGHT INDEX FINGER CYST [id number] 01/26/2016 14:10:00 01/26/2016 17:00:00 DIS Emergency SIERRA GOMEZ MD [facility] ER CHEST PAIN/LEFT SIDE NUMBNESS [id number] 01/24/2016 15:04:00 01/24/2016 23:59:59 CLS Outpatient MAJOR GIPSON APRN [facility] RT SOA, DYSPNEA [id number] 01/19/2016 15:25:00 01/19/2016 18:25:00 DIS Emergency JANELLE ESPITIA APRN [facility] ER LEFT SIDED BODY PAIN [id number] 12/20/2015 10:03:00 12/20/2015 15:35:00 DIS Outpatient KISHA BALDWIN MD [facility] SDC RIGHT FINGER CYST [id number] 12/19/2015 16:48:00 12/19/2015 23:59:59 CLS Outpatient EDI FAUSTIN DO [facility] RAD LEFT RIB PAIN [id number] 12/16/2015 09:03:00 12/16/2015 10:50:00 DIS Emergency CHELSI GARCIA MD [facility] ER CHEST WALL/BACK PAIN [id number] 12/15/2015 10:52:00 12/15/2015 15:44:00 DIS Outpatient KISHA BALDWIN MD [facility] PREOP CYST RIGHT FINGER [id number] 11/29/2015 09:37:00 11/29/2015 23:59:59 CLS Outpatient KISHA CARRILLO MD [facility] RAD DSYPHAGIA [id number] 11/18/2015 12:02:00 11/18/2015 12:30:00 DIS Emergency RADHA CULLEN, CHELSI Christianson [facility] ER SOA/COUGH/CHEST CONGESTION [id number] 11/13/2015 10:57:00 11/13/2015 23:59:59 CLS Outpatient KISHA CARRILLO MD [facility] RAD DYSPHAGIA OTHER, HOARSENESS [id number] 11/09/2015 21:02:00 11/10/2015 05:45:00 DIS Outpatient KISHA CARRILLO MD [facility] SLEEP CHRONIC OBSTRUCTIVE SLEEP APNEA [id number] 10/25/2015 06:55:00 10/25/2015 11:38:00 DIS Outpatient KISHA BALDWIN MD [facility] SDC LEFT ROTATOR CUFF TEAR [id number] 10/20/2015 10:31:00 10/20/2015 23:59:59 CLS Outpatient KISHA BALDWIN MD [facility] PREOP LEFT SHOULDER TORN ROTATOR CUFF [id number] 10/14/2015 14:28:00 10/14/2015 16:16:00 DIS Emergency DAVID CULLEN, LAYTON Spencer [facility] ER CHEST PAIN [id number] 09/24/2015 08:45:00 09/24/2015 10:53:00 DIS Emergency PATRICIA CULLEN, SIERRA Brady [facility] ER COUGH CONGESTION RIB PAIN [id number] 09/18/2015 10:53:00 09/18/2015 23:59:59 CLS Outpatient EDI FAUSTIN DO [facility] RAD BRONCHITIS [id number] 09/14/2015 16:38:00 09/14/2015 18:52:00 DIS Emergency JANELLE ESPITIA APRN [facility] ER CHEST WALL PAIN, SORE THROAT, COUGH [id number] 08/22/2015 11:40:00 08/22/2015 23:59:59 CLS Outpatient EDI FAUSTIN DO [facility] RAD PNEUMONIA [id number] 08/12/2015 14:32:00 08/12/2015 16:26:00 DIS Emergency JANELLE ESPITIA APRN [facility] ER DIFF BREATHING/COUGH [id number] 08/08/2015 12:17:00 08/08/2015 23:59:59 CLS Outpatient KISHA BALDWIN MD [facility] RAD RTC TEAR [id number] 07/27/2015 10:36:00 07/27/2015 13:12:00 DIS Emergency JANELLE ESPITIA [employer] [facility] ER CHEST PAIN [id number] 07/14/2015 11:29:00 07/14/2015 23:59:59 CLS Outpatient EDI FAUSTIN DO [facility] RAD SCREENING [id number] 06/13/2015 13:07:00 06/13/2015 14:53:00 DIS Emergency JANELLE ESPITIA [employer] [facility] ER ABD PAIN [id number] 06/08/2015 20:58:00 06/08/2015 21:58:00 DIS Emergency RAQUEL ROLDAN [facility] ER DROWSINESS,VAG ITCHING /IRRITATION [id number] 05/21/2015 12:06:00 05/21/2015 13:10:00 DIS Emergency LUNA LEGER MD [facility] ER ALLERGIC REACTION [id number] 04/16/2015 21:00:00 04/18/2015 09:50:00 DIS Inpatient ANDERS CARRERO DO S [facility] SURGICAL UTI [id number] 04/09/2015 13:44:00 04/09/2015 16:42:00 DIS Emergency RAQUEL ROLDAN [facility] ER FEVER
[2017-09-13] MEDS ORDERED: ACETAMINOPHEN 325 MG TABLET/CAPLET (TYLENOL) PO STA (15:46)
--- NOTE | 2017-09-13 17:08 | ED Cough/URI ---
General Chief Complaint: Cough/Cold/Flu Symptoms Stated Complaint: CHILLS,SORE THROAT,SOB Nursing Triage Note: PT CO OF SORETHROAT FEVER AND COUGH FOR A FEW DAYS STATES HAS TAKEN IBUPROFEN 800MG PO APPROX 2 HOURS AGO History of Present Illness Time seen by provider: 15:30 Initial Comments 56-year-old female Patient reports earlier today she began having a sore throat and fever. Prior to arrival she reports it being 100.1. She took ibuprofen a proximally 2 hours ago. She's taken no saml-tkw-zwtkacz sinus or cold medicine. Timing/Duration: this afternoon Severity/Quality: mild, dry cough Prior Episodes/Possible Cause: occasional episodes Modifying Factors: Improves With Coughing, Improves With Rest Associated Symptoms: chest pain/soreness (when coughing), cough, facial pain, fever/chills, nasal congestion, sinus infection Allergies and Home Medications Allergies Coded Allergies: Iodinated Contrast Media - Oral and (Unverified Allergy, Unknown, 02/28/17) penicillin (Verified Allergy, Unknown, HAS RECEIVED ROCEPHIN, 02/28/17) Home Medications Albuterol Sulfate 8.5 Gm Hfa.aer.ad, 2 PUFF IH Q4H PRN for WHEEZING, (Reported) Atorvastatin Calcium 10 Mg Tablet, 10 MG PO DAILY, #30 Ref 0 Prescribed by: RAQUEL CRAWFORD on 04/09/15 1616 Cetirizine HCl 10 Mg Tablet, 10 MG PO DAILY, (Reported) Fluconazole 100 Mg Tablet, 100 MG PO UD, #8 Ref 0 2 po x 1 dose, then 1 tab po daily Prescribed by: RAQUEL CRAWFORD on 11/22/16 1610 Fluticasone/Salmeterol 1 Each Blst.w.dev, 1 EACH IH BID, (Reported) Hydrocodone/Acetaminophen 1 Each Tablet, 1 EACH PO Q4H, #30 Prescribed by: LENA ZAVALA on 03/05/17 1202 Metformin HCl 1,000 Mg Tablet, 2,000 MG PO BID, (Reported) Omeprazole 40 Mg Capsule.dr, 40 MG PO DAILY, (Reported) Promethazine HCl 25 Mg Tablet, 25 MG PO Q6H PRN for NAUSEA/VOMITING, #8 Prescribed by: LAYTON GOODSON on 04/30/17 1544 Tiotropium [place] 1 Inh Aerp, 1 INH IH DAILY, (Reported) Constitutional: no symptoms reported, see HPI EENTM: see HPI, nose congestion, throat pain Respiratory: see HPI, cough Gastrointestinal: no symptoms reported, see HPI All Other Systems Reviewed Negative Unless Noted: Yes Past Saiehad-Bksvsn-Srnaig Hx Patient Social History Former Smoker, Quit: May 01, 2008 2nd Hand Smoke Exposure: No Recent Foreign Travel: No Contact w/Someone Who Travel: No Recent Infectious Disease Expo: No Recent Hopitalizations: No Physical Abuse: No Sexual Abuse: No Immunizations Up To Date Tetanus Booster (TDap): Unknown Date of Pneumonia Vaccine: Feb 28, 2012 Date of Influenza Vaccine: Jul 16, 2016 Seasonal Allergies Seasonal Allergies: No Surgeries History of Surgeries: Yes (Partial Hysterectomy; Carpal Tunnel Nba, L KNEE SURGERY x9, Shoulder Surger) Surgeries: Gallbladder, Hysterectomy, Orthopedic Respiratory History of Respiratory Disorde: Yes (CPAP) Respiratory Disorders: Asthma, Sleep Apnea, COPD Currently Using CPAP: Yes Cardiovascular History of Cardiac Disorders: Yes Cardiac Disorders: High Cholesterol Neurological History of Neurological Disord: No Reproductive System Hx Reproductive Disorders: No (PID) Sexually Transmitted Disease: Yes (PID) HIV/AIDS: No 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 [employer]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 Genitourinary Genitourinary Disorders: UTI-Chronic Gastrointestinal History of Gastrointestinal Di: Yes Gastrointestinal Disorders: Gastroesophageal Reflux, Irritable Bowel Musculoskeletal History of Musculoskeletal Dis: Yes (RESTLESS LEG SYNDROME) Musculoskeletal Disorders: Arthritis, Fibromyalgia, Chronic Back Pain Endocrine History of Endocrine Disorders: Yes Endocrine Disorders: Diabetes, Non-Insulin dep HEENT Loss of Vision: Bilateral Hearing Impairment: Denies Cancer History of Cancer: No Psychosocial History of Psychiatric Problem: Yes Behavioral Health Disorders: Anxiety, Bipolar Suicide Risk Score: 0 Integumentary History of Skin or Integumenta: No Blood Transfusions History of Blood Disorders: No Adverse Reaction to a Blood Tr: No (N/A) Reviewed Nursing Assessment Reviewed/Agree w Nursing PMH: Yes Family Medical History Significant Family History: No Pertinent Family Hx Family Medial History: Arthritis 19 MOTHER, Onset:Unknown Asthma 19 FATHER, Onset:Unknown Cataracts 19 MOTHER, Onset:Unknown Diabetes mellitus 19 MOTHER, Onset:Unknown FH: COPD (chronic obstructive pulmonary disease) 19 FATHER, Onset:Unknown Hypercholesterolemia 19 MOTHER MS (multiple sclerosis) G8 SISTER, Onset:Unknown Physical Exam Vital Signs Vital Sign - Last 12Hours 09/13 15:35 Temp 101.1 Pulse 88 Resp 18 B/P (MAP) 145/104 (118) Pulse Ox 100 Capillary Refill : Less Than 3 Seconds General Appearance: WD/WN, no apparent distress Eyes: Bilateral Eye Normal Inspection, Bilateral Eye PERRL, Bilateral Eye EOMI HEENT: PERRL/EOMI, normal ENT inspection, TMs normal, pharynx normal (with clear postnasal drainage noted), other (trace frontal and maxillary sinus tenderness.) Neck: non-tender, full range of motion, supple, normal inspection, No lymphadenopathy (R), No lymphadenopathy (L) Respiratory: chest non-tender, lungs clear, normal breath sounds, no respiratory distress Cardiovascular: normal peripheral pulses, no murmur Gastrointestinal: normal bowel sounds, non tender, soft Neurologic/Psychiatric: no motor/sensory deficits, alert, normal mood/affect, oriented x 3 Progress/Results/Core Measures Suspected Sepsis Recent Fever Within 48 Hours: Yes Infection Criteria Present: Suspected New Infection New/Unexplained Altered Menta: No Sepsis Screen: No Definite Risk Sepsis Diagnosis: SIRS Temperature:101.1 Pulse: 88 Respiratory Rate: 18 Blood Pressure 145 /104 Mean: 118 Results/Orders Lab Results Laboratory Tests Test 09/13/17 15:39 Range/Units Group A Streptococcus Screen NEGATIVE NEGATIVE Micro Results Microbiology 09/13/17 Influenza Types A,B Antigen ([facility]) - Final, Complete My Orders Orders - OLIVA STALEY Rapid Strep A Screen (09/13/17 15:14) Influenza A And B Antigens (09/13/17 15:14) Acetaminophen Tablet/Caplet (Tylenol T (09/13/17 15:46) Guaifenesin Tablet (Mucinex Tablet) (09/13/17 17:15) Medications Given in ED Current Medications Medications Dose Ordered Sig/Veronika Route Start Time Stop Time Status Last Admin Dose Admin Guaifenesin 600 mg ONCE ONCE PO 09/13/17 17:15 09/13/17 17:16 DC 09/13/17 17:34 600 MG Vital Signs/I&O Vital Sign - Last 12Hours 09/13/17 09/13/17 15:35 17:35 Temp 101.1 98.9 Pulse 88 72 Resp 18 18 B/P (MAP) 145/104 (118) Pulse Ox 100 100 Capillary Refill : Less Than 3 Seconds Blood Pressure Mean: 118 Progress Note : Time: 15:30 Progress Note Initial evaluation completed, recommended strep and influenza swab. Tylenol 650 mg by mouth. 1620 blood pressure 148/92, patient reports slight improvement in her symptoms. 1715 Mucinex 600 mg by mouth with water. Patient questioning why she is not being started on an antibiotic. Discussed at length with her proper antibiotic stewardship in the fact that she does not currently meet guidelines for sinusitis treatment with antibiotic. 1730 temperature 98.9 degrees. Discharge instructions reviewed with the patient as well as return precautions. Patient verbalized financial hardship, and difficulty to give ggwb-upt-iytddpu medications. Discussed with her to consider going to [facility] for assistance. Departure Impression Impression: Primary Impression: Viral upper respiratory infection Additional Impression: Cough Disposition: HOME, SELF-CARE Condition: Stable Departure-Patient Inst. Decision time for Depature: 17:00 Referrals: NICKY THOMPSON MD (PCP/Family) Primary Care Physician Patient Instructions: Cough, Runny Nose, and the Common Cold (DC) Add. Discharge Instructions: Increase fluid intake Alternate between ibuprofen 800 mg and acetaminophen 650 mg every 4 hours for pain or fever. Take zoua-lvq-dznhojp generic Mucinex every 12 hours. Follow-up with your primary care provider if symptoms are not improving in 2-3 days. Return to emergency department if fever greater than 101 not relieved by Tylenol or ibuprofen, difficulty breathing, or new problems. All discharge instructions reviewed with patient and/or family. Voiced understanding. Copy Copies To 1: NICKY THOMPSON MD, AMY ARNP Sep 13, 2017 17:08
[2017-09-13] MEDS ORDERED: guaiFENesin (MUCINEX) 600 MG TAB PO ONE (17:15)
[2017-09-13 17:35] VITALS: BP 136/88
== END 2017-09-13 17:36 | disposition home or self-care (01) ==
LOC: EDUNIT# 15:02 → ER 15:03
DX: J06.9 Acute upper respiratory infection, unspecified (principal); F41.9 Anxiety disorder, unspecified; F31.9 Bipolar disorder, unspecified; E11.9 Type 2 diabetes mellitus without complications; K21.9 Gastro-esophageal reflux disease without esophagitis; E78.00 Pure hypercholesterolemia, unspecified; J44.9 Chronic obstructive pulmonary disease, unspecified; G47.30 Sleep apnea, unspecified; Z90.711 Acquired absence of uterus with remaining cervical stump; Z87.891 Personal history of nicotine dependence
CPT/HCPCS: 87430; 87804; 99283

== ENCOUNTER → 2017-11-11 | Outpatient (CLI) | payer MEDICARE, MEDICAID ==
[~2017-11-11] MED LIST changes: +ACHD5005 PO; +HYDR-34 PO; -HYDR-3812 PO; -HYDR-3816 PO
--- NOTE | 2017-11-11 15:36 | Diagnostic Imaging Report ---
INDICATION: Left breast lump. COMPARISON: Diagnostic mammogram from earlier the same day. FINDINGS: Sonographic interrogation of the area of lump at the 5 o'clock retroareolar location was performed. No solid or cystic mass is identified. IMPRESSION: No sonographic abnormality is identified. Continued close clinical and self breast exams are recommended to confirm stability of the palpable abnormality. ACR BI-RADS Category 1: Negative. Dictated by: Dictated on workstation # [id number]
--- NOTE | 2017-11-11 15:37 | Diagnostic Imaging Report ---
INDICATION: Palpable lump in the retroareolar left breast. COMPARISON: 05/26/2017 and 05/24/2016. TECHNIQUE: CC, MLO, and mediolateral 3-D mammography was performed. The current study was also evaluated with a Computer Aided Detection (CAD) system. FINDINGS: There is a benign-appearing nodule in the outer left breast, stable when compared with the prior exams. No new mass or malignant appearing microcalcifications are seen. There are vascular calcifications present. The left axilla is unremarkable. IMPRESSION: No mammographic abnormality is identified. Even so, further evaluation of the area of palpable abnormality with ultrasound is recommended. ACR BI-RADS Category 0: Incomplete. (Needs additional imaging evaluation). Result letter will be mailed to the patient. Note: At least 10% of breast cancer is not imaged by mammography. Dictated by: Dictated on workstation # [id number]
== END ==
LOC: RAD 12:46
PROVIDERS: ATTEND Family Medicine
DX: N63.23 Unspecified lump in the left breast, lower outer quadrant (principal)
CPT/HCPCS: 76642

== ENCOUNTER 2017-11-20 11:13 | Outpatient (CLI) | payer MEDICARE, MEDICAID ==
[~2017-11-20] VITALS: Ht 175.3 cm; Wt 124.7 kg
[2017-11-20 11:15] VITALS: BP 123/75
[2017-11-20] MEDS ORDERED: ATOR10TA66 PO (11:19)
[2017-11-20] MEDS ORDERED: FLUT9.9S NS (11:19)
[2017-11-20] MEDS ORDERED: FLUT1BLS IH (11:19)
[2017-11-20] MEDS ORDERED: FLUO40CA PO (11:20)
== END 2017-11-20 11:30 | disposition home or self-care (01) ==
LOC: PREOP 11:13
PROVIDERS: ATTEND Orthopaedic Surgery
DX: Z01.818 Encounter for other preprocedural examination (principal); M94.261 Chondromalacia, right knee
CPT/HCPCS: 87081

== ENCOUNTER 2017-11-26 07:41 | Day surgery (SDC) | payer MEDICARE, MEDICAID ==
--- NOTE | 2017-11-19 06:06 | HISTORY AND PHYSICAL ---
DATE OF SERVICE: This will for admission for outpatient surgery on 11/26/2017 for right knee arthroscopy. HISTORY OF PRESENT ILLNESS: The patient is a 56-year-old female, who had previously undergone right knee arthroscopy and done well; however, she has fell over the summer landing directly on her right knee and symptoms of anterior knee pain, swelling, catching, locking and activity limitations. She reports progressive symptoms and because of this it was elected to proceed with surgical intervention. REVIEW OF SYSTEMS: No chest pain, no shortness of breath and no dysuria. PAST MEDICAL HISTORY: Diabetes, COPD, depression, hypercholesterolemia, back pain, sleep apnea, bipolar disorder, allergic rhinitis, cardiomegaly, morbid obesity. PAST SURGICAL HISTORY: Carpal and cubital tunnel releases bilaterally, left knee arthroscopy, left shoulder arthroscopy, right knee arthroscopy, cholecystectomy and hysterectomy. FAMILY HISTORY: Lupus, COPD, multiple sclerosis, hypertension, diabetes. PRIMARY CARE PROVIDER: Dr. Espino. MEDICATIONS: Lipitor, omeprazole, fluoxetine, metformin, Percocet, hydrocodone, Advair, Meloxicam, albuterol, ProAir, fluconazole. ALLERGIES: To PENICILLIN, DOXYCYCLINE and CONTRAST DYE. SOCIAL HISTORY: The patient is a former smoker, drinks alcohol rarely. PHYSICAL EXAMINATION: GENERAL: The patient is well developed, well nourished, in no acute distress. HEENT: Normocephalic, atraumatic. Pupils are equal, round and reactive. Oropharynx is clear. NECK: Supple, no lymphadenopathy. LUNGS: Clear to auscultation bilaterally. HEART: Regular rate and rhythm. ABDOMEN: Soft, nontender, nondistended. EXTREMITIES: The right knee demonstrates marked tenderness with patellar loading with patellofemoral crepitus noted. She has a moderate effusion noted. She has pain with hyperflexion anteriorly. No pain with Pat's. Negative Rg, negative anterior and posterior drawer. No varus or valgus laxity. Negative pivot shift. IMPRESSION: Chondral injury to the patella, right knee. PLAN: Right knee arthroscopy with chondroplasty of the patella. The risks, benefits, options, ramifications and recovery were discussed at length with the patient and she understands and wishes to proceed. Job ID: [id number] DocumentID: [id number] Dictated Date: 11/18/2017 09:23:14 Pcas Date: 11/18/2017 09:51:15 Dictated By: KISHA BALDWIN MD
[~2017-11-26] VITALS: Ht 175.3 cm; Wt 124.7 kg
[~2017-11-26 07:41] MED LIST changes: +FLUT1BLS IH; +FLUT9.9S NS
[2017-11-26 07:45] VITALS: BP 123/86
[2017-11-26] MEDS ORDERED: morphine PF (DURAMORPH) 10 MG/10 ML AMP ONE (07:54)
[2017-11-26] MEDS ORDERED: BUPIVACAINE 0.25% 30 ML (SENSORCAINE) VIAL ONE (07:54)
[2017-11-26] MEDS ORDERED: LIDOCAINE 1% INJ 20 ML (XYLOCAINE) VIAL ONE (07:59)
[2017-11-26] MEDS: LACTATED RINGERS 1,000 ML IV PRN ×2 (08:05→09:52)
[2017-11-26] MEDS ORDERED: CLINDAMYCIN 600 MG/50 ML IVPB 50 ML IV SCH ×2 (08:15→09:30)
[2017-11-26] MEDS ORDERED: fentaNYL INJECTION 100 MCG/2 ML AMP ONE (08:56)
[2017-11-26] MEDS ORDERED: MIDAZOLAM 2 MG/2 ML (VERSED) VIAL ONE (08:56)
[2017-11-26] MEDS ORDERED: ONDANSETRON 4 MG/2 ML (SDV) Z0FRAN ONE (09:14)
[2017-11-26] MEDS ORDERED: SEVOFLURANE (ULTANE) 15 ML INHAL SOLN ONE ×3 (09:14)
[2017-11-26] MEDS ORDERED: proPOfol 200 MG/20 ML (DIPRIVAN) VIAL IV ONE (09:14)
[2017-11-26] MEDS ORDERED: LIDOCAINE PF 2% 5 ML (XYLOCAINE) VIAL ONE (09:14)
[2017-11-26] MEDS ORDERED: RT-ALBUTEROL SULF 2.5 MG/3 ML PRE-MIX VIAL INH ONE (09:15)
--- NOTE | 2017-11-26 09:23 | Progress Note-Pre Operative ---
Pre-Operative Progress Note H&P Reviewed The H&P was reviewed, patient examined and no changes noted. Date Seen by Provider: Nov 26, 2017 Time Seen by Provider: :23 Date H&P Reviewed: Nov 26, 2017 Time H&P Reviewed: :23 Pre-Operative Diagnosis: right knee chondromalacia of the patella KISHA BALDWIN MD Nov 26, 2017 09:23
--- NOTE | 2017-11-26 09:24 | Progress Note-Post Operative ---
Post-Operative Progess Note Surgeon (s)/Radiology Physician (s) Surgeon KISHA BALDWIN MD Radiology Physician: Boy Shepherd Pre-Operative Diagnosis right knee chondromalacia of the patella Post-Operative Diagnosis right knee chondromalacia of the patella and lateral tibial plateau Procedure & Operative Findings Date of Procedure 11/26/17 Procedure Performed/Findings right knee arthroscopic chondroplasty of the patella and lateral tibial plateau Anesthesia Type GETA Estimated Blood Loss Estimated blood loss (mL): minimal Specimens/Packing Specimens Removed none Packing: none KISHA BALDWIN MD Nov 26, 2017 09:24
[2017-11-26] MEDS ORDERED: oxyCODONE/APAP 5/325MG (PERCOCET 5) TABLET PO PRN (09:45)
[2017-11-26] MEDS ORDERED: morphine PF (DURAMORPH) 10 MG/10 ML AMP INJ ONE (10:00)
[2017-11-26] MEDS ORDERED: BUPIVACAINE 0.25% 30 ML (SENSORCAINE) VIAL INJ ONE (10:00)
--- NOTE | 2017-11-26 10:38 | Anesthesia-General Post-Op ---
General Patient Condition Mental Status/LOC: Same as Preop Cardiovascular: Satisfactory Nausea/Vomiting: Absent Respiratory: Satisfactory Pain: Controlled Complications: Absent Post Op Complications Complications None Follow Up Care/Instructions Patient Instructions None needed. Anesthesia/Patient Condition Patient Condition Patient is doing well, no complaints, stable vital signs, no apparent adverse anesthesia problems. No complications reported per nursing. BRIE ENGLISH CRNA Nov 26, 2017 10:38
[2017-11-26 11:05] VITALS: BP 131/75
[2017-11-26 11:06] VITALS: BP 131/75
[2017-11-26 11:35] VITALS: BP 136/78
[2017-11-26 12:05] VITALS: BP 134/76
[2017-11-26] MEDS ORDERED: OXYC-471 PO (12:11)
--- NOTE | 2017-11-26 12:31 | Physical Therapy Progress Note ---
Therapy Progress Note Visit only. Pt reported she had this surgery before and has no gait training needs. Expressed that she knows the exercises as well. Provided pt with pics of HEP for QS, HS and SLR as a reminder. Pt verbalized she knew them. No treatment rendered. CANDY MANN PT Nov 26, 2017 12:31
--- NOTE | 2017-11-26 16:00 | OPERATIVE REPORT ---
DATE OF SERVICE: 11/26/2017 PREOPERATIVE DIAGNOSIS: Right knee chondromalacia of the patella. POSTOPERATIVE DIAGNOSES: 1. Right knee chondromalacia of the patella. 2. 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 PROCEDURES PERFORMED: 1. Right knee arthroscopic chondroplasty of the patella. 2. Right knee arthroscopic chondroplasty of the lateral tibial plateau. SURGEON: Zion Baldwin MD. CREAM DUMPER: KIKA Cantrell, who assisted throughout the procedure and closed the incisions. TOURNIQUET TIME: Not applicable. ESTIMATED BLOOD LOSS: Minimal. DRAINS: None. COMPLICATIONS: None. POSTOPERATIVE PLAN: Routine arthroscopy protocol. ANESTHESIA: General endotracheal by uJlienne Romero CRNA. STATEMENT OF ORAL CONSENT: The patient is a 56-year-old female, who fell on her flexed right knee over the summer and since then has had continued anterior knee pain, catching, locking and swelling. She had pain at the superior pole of her patella and pain with patellar loading. She had failed to respond to extensive conservative measures including activity modifications, injections and rest. Due to functional impairment and failure to improve with conservative measures, the patient elected to proceed with surgical intervention. Examination under anesthesia revealed range of motion 0/0/135 with a negative Rg, negative anterior and posterior drawer. No varus, valgus laxity, negative pivot shift. ARTHROSCOPIC FINDINGS: The patella demonstrated grade 2 chondral flaps superiorly and a 20 x 15 area. The medial and lateral gutters were clear. The trochlea demonstrated no gross chondral abnormalities. The ACL and PCL were intact. The medial compartment demonstrated no meniscal or chondral pathology. Lateral compartment demonstrated a grade 2 chondral flap centrally and a 10 x 10 area of the tibial plateau. DESCRIPTION OF THE PROCEDURE: After risks and benefits of procedure were discussed and questions were answered, an informed consent signed and placed on chart. The operative site was confirmed in the preoperative holding area and initialed by the surgeon. The patient was transported to the operating room and after adequate levels of general endotracheal anesthetic was obtained, a timeout was called confirming the operative site. Examination under anesthesia was performed with the above findings noted. The right lower extremity was prepped and draped in the usual sterile fashion and the knee joint was injected with 60 mL of fluid. A standard inferolateral portal was placed with the arthroscope under direct visualization and inferomedial portal was created. The menisci and cruciates were carefully probed with the above findings noted. The unstable chondral flaps on the patella were debrided with shaver back to a stable edge. The scope was redirected into the lateral compartment with unstable chondral flaps on the lateral tibial plateau were debrided with the shaver back to a stable edge. The knee was copiously irrigated. The portal sites were closed with 4-0 nylon in simple interrupted fashion. The knee was injected with Duramorph. Portal sites were infiltrated with plain Marcaine and soft dressing was applied. The patient was transported to the recovery room awake and in stable condition. Job ID: [id number] DocumentID: [id number] Dictated Date: 11/26/2017 10:16:16 Computer Technical Support Specialist Date: 11/26/2017 15:59:29 Dictated By: ZION BALDWIN MD
== END 2017-11-26 12:15 | disposition home or self-care (01) ==
LOC: SDC 07:41
PROVIDERS: ATTEND Orthopaedic Surgery
DX: M22.41 Chondromalacia patellae, right knee (principal); Z11.2 Encounter for screening for other bacterial diseases; M32.9 Systemic lupus erythematosus, unspecified; J44.9 Chronic obstructive pulmonary disease, unspecified; G35 Multiple sclerosis; I10 Essential (primary) hypertension; E11.40 Type 2 diabetes mellitus with diabetic neuropathy, unspecified; Z79.899 Other long term (current) drug therapy; Z79.84 Long term (current) use of oral hypoglycemic drugs; Z87.891 Personal history of nicotine dependence; E78.5 Hyperlipidemia, unspecified; I20.9 Angina pectoris, unspecified; G47.33 Obstructive sleep apnea (adult) (pediatric); F31.9 Bipolar disorder, unspecified; M79.7 Fibromyalgia; K21.9 Gastro-esophageal reflux disease without esophagitis; E66.01 Morbid (severe) obesity due to excess calories; Z68.41 Body mass index [BMI] 40.0-44.9, adult
CPT/HCPCS: 82962

== ENCOUNTER 2017-12-05 13:16 | Emergency (ER) | payer MEDICARE, MEDICAID ==
[~2017-12-05] VITALS: Ht 175.3 cm; Wt 124.7 kg
[2017-12-05] MEDS ORDERED: ASPIRIN 81 MG CHEW (CHILDREN'S ASA) PO ONE (13:30)
[2017-12-05 13:46] LABS: BASOPHILS % (AUTO) 0 % (0-10); EOSINOPHILS # (AUTO) 0.2 10^3/uL (0.0-0.3); EOSINOPHILS % (AUTO) 2 % (0-10); HEMATOCRIT 35 % (35-52); HEMOGLOBIN 11.7 G/DL (11.5-16.0); LYMPHOCYTES # (AUTO) 2.9 X 10^3 (1.0-4.0); LYMPHOCYTES % (AUTO) 29 % (12-44); MEAN CORPUSCULAR HEMOGLOBIN 28 PG (25-34); MEAN CORPUSCULAR HGB CONC 34 G/DL (32-36); MEAN CORPUSCULAR VOLUME 83 FL (80-99); MEAN PLATELET VOLUME 10.8 FL (7.4-10.4); MONOCYTES # (AUTO) 0.7 X 10^3 (0.0-1.0); MONOCYTES % (AUTO) 7 % (0-12); NEUTROPHILS # (AUTO) 6.1 X 10^3 (1.8-7.8); NEUTROPHILS % (AUTO) 62 % (42-75); PLATELET COUNT 236 10^3/uL (130-400); RED BLOOD COUNT 4.18 10^6/uL (4.35-5.85); RED CELL DISTRIBUTION WIDTH 14.2 % (10.0-14.5); WHITE BLOOD COUNT 9.9 10^3/uL (4.3-11.0)
[2017-12-05 13:56] LABS: INR 0.9 (0.8-1.4); PROTHROMBIN TIME PATIENT 12.2 SEC (12.2-14.7)
--- NOTE | 2017-12-05 14:05 | Diagnostic Imaging Report ---
INDICATION: Chest pain COMPARISON: 08/10/2017 FINDINGS: Single frontal view of the chest demonstrates normal heart size and pulmonary vascularity. The lungs are well aerated and clear. No large pleural effusion or pneumothorax is seen. The visualized osseous structures show no acute abnormalities. IMPRESSION: 1. No acute cardiopulmonary process. Dictated by: Dictated on workstation # [id number]
[2017-12-05 14:06] LABS: ALANINE AMINOTRANSFERASE 22 U/L (0-55); ALBUMIN 3.9 GM/DL (3.2-4.5); ALKALINE PHOSPHATASE 95 U/L (40-136); BILIRUBIN,TOTAL 0.3 MG/DL (0.1-1.0); BUN/CREATININE RATIO 17; CALCIUM 9.2 MG/DL (8.5-10.1); CARBON DIOXIDE 28 MMOL/L (21-32); CHLORIDE 104 MMOL/L (98-107); CREATININE SERUM 0.78 MG/DL (0.60-1.30); GFR ESTIMATED > 60; GLUCOSE 134 MG/DL (70-105); MAGNESIUM 1.6 MG/DL (1.8-2.4); POTASSIUM 3.8 MMOL/L (3.6-5.0); SODIUM 137 MMOL/L (135-145); TOTAL PROTEIN 7.4 GM/DL (6.4-8.2)
[2017-12-05 14:17] LABS: MYOGLOBIN SERUM 26.2 NG/ML (10.0-92.0)
[2017-12-05] MEDS ORDERED: KETOROLAC 30 MG/ML VIAL ONE (14:17)
--- NOTE | 2017-12-05 14:28 | ED Cardiac General ---
History of Present Illness General Chief Complaint: Cardiac/General Problems Stated Complaint: CP,TIGHTENING IN CHEST Nursing Triage Note: C/O intermittent CP since this am states she has been coughing since last week. C/O tightness sternal with back pain and is nauseated. Coughing yellow sputum History of Present Illness Date Seen by Provider: Dec 05, 2017 Time Seen by Provider: 13:15 Initial Comments Patient is a 56-year-old female who presents to the emergency room with chest pain that started this morning, reports she has had a productive cough for one week, one week ago she did have a scope the right knee. The patient's chest pain is reproducible on palpation. Timing/Duration: 4-6 hours Severity: mild Location: substernal Activities at Onset: none NTG SL AIR BRAKE TESTER: No ASA po AIR BRAKE TESTER: Yes (162) Associated Systoms: Cough Allergies and Home Medications Allergies Coded Allergies: Iodinated Contrast- Oral and IV Dye (Unverified Allergy, Unknown, 02/28/17) penicillin (Verified Allergy, Unknown, HAS RECEIVED ROCEPHIN, 02/28/17) Uncoded Allergies: ZOFRAN (Allergy, Unknown, 12/05/17) Home Medications Albuterol Sulfate 8.5 Gm Hfa.aer.ad, 2 PUFF IH Q4H PRN for WHEEZING, (Reported) Atorvastatin Calcium 10 Mg Tablet, 10 MG PO DAILY, (Reported) Fluoxetine HCl 40 Mg Capsule, 40 MG PO DAILY, (Reported) Fluticasone Propionate 9.9 Ml Hooker.susp, 1 SPRAY NS BID, (Reported) Fluticasone/Vilanterol 1 Each Blst.w.dev, 1 EACH IH DAILY, (Reported) Metformin HCl 1,000 Mg Tablet, 2,000 MG PO BID, (Reported) Naproxen Sodium 550 Mg Tablet, 550 MG PO BID PRN for PAIN-MODERATE TO SEVERE Prescribed by: JANELLE ESPITIA on 12/05/17 1429 Omeprazole 40 Mg Capsule.dr, 40 MG PO DAILY, (Reported) Oxycodone HCl/Acetaminophen 1 Each Tablet, 1-2 EACH PO Q4H PRN for PAIN-MODERATE Prescribed by: GAB MAX on 11/26/17 1211 Patient Home Medication List Home Medication List Reviewed: Yes Review of Systems Constitutional: no symptoms reported, see HPI EENTM: No Symptoms Reported, See HPI Respiratory: See HPI, Cough Cardiovascular: See HPI, Chest Pain Gastrointestinal: No Symptoms Reported, See HPI Genitourinary: No Symptoms Reported, See HPI Musculoskeletal: no symptoms reported, see HPI Skin: no symptoms reported, see HPI Psychiatric/Neurological: No Symptoms Reported, See HPI Endocrine: No Symptoms Reported, See HPI Hematologic/Lymphatic: No Symptoms Reported, See HPI Past Zafnuua-Rdurjz-Buikqh Hx Patient Social History Alcohol Use: Denies Use Recreational Drug Use: No Smoking Status: Former Smoker Former Smoker, Quit: May 01, 2008 2nd Hand Smoke Exposure: No Recent Foreign Travel: No Contact w/Someone Who Travel: No Recent Infectious Disease Expo: No Recent Hopitalizations: No Physical Abuse: No Sexual Abuse: No Mistreated: No Immunizations Up To Date Tetanus Booster (TDap): Unknown PED Vaccines UTD: No Date of Pneumonia Vaccine: Feb 28, 2012 Date of Influenza Vaccine: Jul 16, 2017 Seasonal Allergies Seasonal Allergies: No Surgeries History of Surgeries: Yes (Partial Hysterectomy; Carpal Tunnel Nba, L KNEE SURGERY x9, Shoulder Surger) Surgeries: Gallbladder, Hysterectomy, Orthopedic Respiratory History of Respiratory Disorde: Yes (CPAP) Respiratory Disorders: Asthma, Sleep Apnea, COPD Currently Using CPAP: Yes Cardiovascular History of Cardiac Disorders: Yes Cardiac Disorders: High Cholesterol Neurological History of Neurological Disord: No Reproductive System Hx Reproductive Disorders: No (PID) Sexually Transmitted Disease: Yes (PID) HIV/AIDS: No 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 [employer]OL [employer]IPAL History: Hysterectomy Genitourinary Genitourinary Disorders: UTI-Chronic Gastrointestinal History of Gastrointestinal Di: Yes Gastrointestinal Disorders: Gastroesophageal Reflux, Irritable Bowel Musculoskeletal History of Musculoskeletal Dis: Yes (RESTLESS LEG SYNDROME) Musculoskeletal Disorders: Arthritis, Fibromyalgia, Chronic Back Pain Endocrine History of Endocrine Disorders: Yes Endocrine Disorders: Diabetes, Non-Insulin dep HEENT Loss of Vision: Bilateral Hearing Impairment: Denies Cancer History of Cancer: No Psychosocial History of Psychiatric Problem: Yes Behavioral Health Disorders: Anxiety, Bipolar Suicide Risk Score: 0 Integumentary History of Skin or Integumenta: No Blood Transfusions History of Blood Disorders: No Adverse Reaction to a Blood Tr: No (N/A) Family Medical History Significant Family History: No Pertinent Family Hx Family Medial History: Arthritis 19 MOTHER, Onset:Unknown Asthma 19 FATHER, Onset:Unknown Cataracts 19 MOTHER, Onset:Unknown Diabetes mellitus 19 MOTHER, Onset:Unknown FH: COPD (chronic obstructive pulmonary disease) 19 FATHER, Onset:Unknown Hypercholesterolemia 19 MOTHER MS (multiple sclerosis) G8 SISTER, Onset:Unknown Physical Exam Vital Signs Vital Signs - First Documented 12/05/17 12/05/17 13:25 13:38 Pulse 62 Resp 16 B/P (MAP) 142/86 (104) Pulse Ox 99 O2 Delivery Nasal Cannula O2 Flow Rate 2.00 FiO2 100 Capillary Refill : Less Than 3 Seconds General Appearance: No Apparent Distress, WD/WN HEENT: PERRL/EOMI, TMs Normal, Normal ENT Inspection Neck: Full Range of Motion, Normal Inspection Respiratory: Chest Non Tender, Lungs Clear, Normal Breath Sounds, No Accessory Muscle Use, No Respiratory Distress Cardiovascular: Regular Rate, Rhythm, No Edema, No Gallop, No JVD, No Murmur, Normal Peripheral Pulses, Other Gastrointestinal: Normal Bowel Sounds, No Organomegaly, No Pulsatile Mass (A CT ), Non Tender, Soft Extremity: Normal Capillary Refill, Normal Inspection Neurologic/Psychiatric: Alert, Oriented x3, Normal Mood/Affect Skin: Normal Color, Warm/Dry Progress/Results/Core Measures Results/Orders Lab Results Laboratory Tests Test 12/05/17 13:37 Range/Units White Blood Count 9.9 4.3-11.0 10^3/uL Red Blood Count 4.18 L 4.35-5.85 10^6/uL Hemoglobin 11.7 11.5-16.0 G/DL Hematocrit 35 35-52 % Mean Corpuscular Volume 83 80-99 FL Mean Corpuscular Hemoglobin 28 25-34 PG Mean Corpuscular Hemoglobin Concent 34 32-36 G/DL Red Cell Distribution Width 14.2 10.0-14.5 % Platelet Count 236 130-400 10^3/uL Mean Platelet Volume 10.8 H 7.4-10.4 FL Neutrophils (%) (Auto) 62 42-75 % Lymphocytes (%) (Auto) 29 12-44 % Monocytes (%) (Auto) 7 0-12 % Eosinophils (%) (Auto) 2 0-10 % Basophils (%) (Auto) 0 0-10 % Neutrophils # (Auto) 6.1 1.8-7.8 X 10^3 Lymphocytes # (Auto) 2.9 1.0-4.0 X 10^3 Monocytes # (Auto) 0.7 0.0-1.0 X 10^3 Eosinophils # (Auto) 0.2 0.0-0.3 10^3/uL Basophils # (Auto) 0.0 0.0-0.1 10^3/uL Prothrombin Time 12.2 12.2-14.7 SEC INR Comment 0.9 0.8-1.4 Activated Partial Thromboplast Time 27 24-35 SEC Sodium Level 137 135-145 MMOL/L Potassium Level 3.8 3.6-5.0 MMOL/L Chloride Level 104 98-107 MMOL/L Carbon Dioxide Level 28 21-32 MMOL/L Anion Gap 5 5-14 MMOL/L Blood Urea Nitrogen 13 7-18 MG/DL Creatinine 0.78 0.60-1.30 MG/DL Estimat Glomerular Filtration Rate > 60 BUN/Creatinine Ratio 17 Glucose Level 134 H 70-105 MG/DL Calcium Level 9.2 8.5-10.1 MG/DL Magnesium Level 1.6 L 1.8-2.4 MG/DL Total Bilirubin 0.3 0.1-1.0 MG/DL Aspartate Amino Transf (AST/SGOT) 17 5-34 U/L Alanine Aminotransferase (ALT/SGPT) 22 0-55 U/L Alkaline Phosphatase 95 40-136 U/L Myoglobin 26.2 10.0-92.0 NG/ML Troponin I < 0.30 <0.30 NG/ML Total Protein 7.4 6.4-8.2 GM/DL Albumin 3.9 3.2-4.5 GM/DL My Orders Orders - JANELLE ESPITIA APRN Us Venous Lower Ext Rt (12/05/17 14:04) Ketorolac Injection (Toradol Injection) (12/05/17 14:30) Ketorolac Injection (Toradol Injection) (12/05/17 14:17) Medications Given in ED Current Medications Medications Dose Ordered Sig/Veronika Route Start Time Stop Time Status Last Admin Dose Admin Aspirin 324 mg ONCE ONCE PO 12/05/17 13:30 12/05/17 13:31 DC 12/05/17 13:44 162 MG Ketorolac Tromethamine 30 mg ONCE ONCE IVP 12/05/17 14:30 12/05/17 14:31 DC 12/05/17 14:21 30 MG Vital Signs/I&O Vital Sign - Last 12Hours 12/05/17 12/05/17 13:25 13:38 Pulse 62 Resp 16 B/P (MAP) 142/86 (104) Pulse Ox 99 99 O2 Delivery Nasal Cannula O2 Flow Rate 2.00 FiO2 100 Blood Pressure Mean: 104 Departure Communication (Admissions) Progress Notes Not concerned about pulmonary embolus and as a cause of pain given the negative right leg venous ultrasound, absence of hypoxia with absence of tachycardia. She cannot have a d-dimer because she just had knee scope surgeries for this will be elevated anyway. She cannot have a CT angiogram because of allergic reaction listed to IV contrast. Impression Impression: Primary Impression: Pleuritic chest pain Disposition: HOME, SELF-CARE Condition: Stable/Unchanged Departure-Patient Inst. Decision time for Depature: 14:26 Referrals: NICKY THOMPSON MD (PCP/Family) Primary Care Physician Patient Instructions: Chest Pain That Is Not Caused by the Heart (DC) Add. Discharge Instructions: Follow-up with her doctor within week, Friday morning for an appointment time. Take medications as directed. Return back to the emergency room for worsening chest pain, shortness of breath, dizziness or any other concerns. All discharge instructions reviewed with patient and/or family. Voiced understanding. Scripts Naproxen Sodium (Anaprox Ds) 550 Mg Tablet 550 MG PO BID Y for PAIN-MODERATE TO SEVERE for 7 Days, #14 TAB Prov: JANELLE ESPITIA APRN 12/05/17 JANELLE ESPITIA APRN Dec 05, 2017 14:28
[2017-12-05] MEDS ORDERED: NAPR-1070 PO (14:29)
[2017-12-05] MEDS ORDERED: KETOROLAC 30 MG/ML VIAL IVP ONE (14:30)
--- NOTE | 2017-12-05 15:17 | Diagnostic Imaging Report ---
PROCEDURE: US right lower extremity venous. TECHNIQUE: Multiple real-time grayscale images were obtained over the right lower extremity in various projections. Additional duplex Doppler and color Doppler images were also obtained. INDICATION: Right leg pain. The patient is status post knee surgery one week ago. FINDINGS: There is no evidence of a right lower extremity DVT. The right lower extremity deep venous system demonstrates normal compressibility with normal response to augmentation and Valsalva. No fluid collection or mass is seen. IMPRESSION: No evidence of right lower extremity DVT. Dictated by: Dictated on workstation # [id number]
[2017-12-05 15:18] VITALS: BP 142/81
--- OUTSIDE RECORDS SUMMARY | 2017-12-07 04:48 | XMS REPORT | Continuity of Care Document ---
Author Author [facility] Organization [facility] Address Unknown Phone Unavailable Allergies Active Description Code Type Severity Reaction Onset Reported/Identified Relationship to Patient Clinical Status Yes IV DYE IV DYE Unknown N/A 04/09/2015 Yes No Known Drug Allergies [id number] Drug Allergy Unknown N/A 04/09/2015 Yes penicillin [id number] Drug Allergy Unknown N/A 04/09/2015 Yes Iodinated Contrast Media - IV Dye [id number] Drug Allergy Unknown N/A 12/19 Yes Iodinated Contrast Media - Oral and [id number] Drug Allergy Unknown N/A 10/2016 Yes Iodinated Contrast- Oral and IV Dye [id number] Drug Allergy Unknown N/A 10/2016 Yes penicillin [id number] Drug Allergy Unknown HAS RECEIVED RO 02/28/2017 [...] DO S Ot 530.81 ESOPHAGEAL REFLUX 04/18/2015 [facility] S Ot 536.2 PERSISTENT VOMITING 04/18/2015 ORENDER DO, ANDERS S Ot 599.0 URIN TRACT INFECTION NOS 04/18/2015 [facility] AND[facility] S Ot 729.1 MYALGIA AND MYOSITIS NOS 04/18/2015 ORENDER DO, ANDERS S Ot 787.91 DIARRHEA 04/18/2015 ORENDER DO, ANDERS S Ot 250.00 04/18/2015 [facility] S Ot 338.4 04/18/2015 OREND DO, ANDERS S Ot 496 04/18/2015 OREND DO, ANDERS S Ot 530.81 04/18/2015 [facility] S Ot 536.2 04/18/2015 [facility] ANDERS S Ot 599.0 04/18/2015 [facility] ANDERS S Ot 729.1 04/18/2015 [facility] ANDERS S Ot 787.91 05/21/2015 LUNA LEGER MD Ot 250.00 DIAB MIRZA WO COMPL, TYPE II OR UNSPEC TY 05/21/2015 LUNA LEGER MD Ot 272.0 PURE HYPERCHOLESTEROLEM 05/21/2015 [...] 623.5 NONINFECT VAG LEUKORRHEA 06/13/2015 JANELLE ESPITIA WAX CUTTER Ot 250.00 DIAB MIRZA WO COMPL, TYPE II OR UNSPEC TY 06/13/2015 JANELLE ESPITIA WAX CUTTER Ot 599.0 URIN TRACT INFECTION NOS 06/13/2015 JANELLE ESPITIA APRN Ot 789.03 ABDOMINAL PAIN, RIGHT LOWER QUADRANT 06/13/2015 JANELLE ESPITIA APRN Ot V58.69 OTH MED,LT,CURRENT USE 07/27/2015 JANELLE ESPITIA WAX CUTTER Ot F17.211 NICOTINE DEPENDENCE, CIGARETTES, IN [place]LV[place] [...] 08/12/2015 JANELLE ESPITIA APRN Ot Z79.899 OTHER CORRECTION (CURRENT) DRUG THERAPY 08/14/2015 GELLENDER DO, EDI [...] Brady Ot R07.81 PLEURODYNIA 10/05/2015 JANELLE ESPITIA WAX CUTTER Ot F17.211 10/05/2015 JANELLE ESPITIA WAX CUTTER Ot J40 10/11/2015 JANELLE ESPITIA WAX CUTTER Ot F17.211 10/11/2015 JANELLE ESPITIA WAX CUTTER Ot J40 10/13/2015 EDI FAUSTIN DO Ot J40 10/14/2015 DAVID CULLEN, LAYTON Spencer Ot F17.211 NICOTINE DEPENDENCE, CIGARETTES, IN [place]LV[place] 10/14/2015 LAYTON HERNANDEZ MD Ot J44.9 CHRONIC OBSTRUCTIVE [...] LABRUM LESION OF UNSP S 11/10/2015 KISHA CARRLILO MD Ot G47.33 OBSTRUCTIVE SLEEP APNEA (ADULT) (PEDIATR 11/13/2015 EDI FAUSTIN DO Ot Z12.31 11/13/2015 NICOLASA CULLEN, KISHA P Ot M75.112 11/13/2015 RAMIN LOU EDI A Ot J18.9 11/13/2015 RAMIN LOU EDI A Ot J40 11/13/2015 NICOLASA CULLEN, KISHA P Ot M75.102 11/13/2015 NICOLASA CULLEN, KISHA P Ot Z01.818 11/13/2015 NICOLASA CULLEN, KISHA P Ot Z11.2 11/13/2015 EDI FAUSTIN DO Ot Z12.31 11/13/2015 NICOLASA CULLEN, KISHA P Ot M75.112 11/13/[facility] LOU A Ot J18.9 11/13/2015 EDI FAUSTIN DO A Ot J40 11/13/2015 NICOLASA CULLEN, KISHA P Ot M75.102 11/13/2015 NICOLASA CULLEN, KISHA P Ot Z01.818 11/13/2015 NICOLASA CULLEN, KISHA P Ot Z11.2 11/18/2015 RADHA CULLEN, CHELSI Christianson Ot J40 BRONCHITIS, NOT SPECIFIED ACUTE OR CH 12/11/2015 LORENA CULLEN, KISHA P Ot R13.19 12/11/2015 LORENA CULLEN, KISHA P Ot R49.0 12/13/2015 LORENA CULELN, KISHA P Ot R13.19 12/13/2015 LORENA CULLEN, KISHA P Ot R49.0 12/15/2015 NICOLASA CULLEN, KISHA P Ot L72.9 FOLLICULAR CYST OF THE SKIN AND SUBCUTAN 12/15/2015 NICOLASA CULLEN, KISHA P Ot Z01.818 ENCOUNTER FOR OTHER PREPROCEDURAL EXAMIN 12/16/2015 RADHA CULLEN, CHELSI Christianson Ot J40 BRONCHITIS, [...] J32.9 CHRONIC SINUSITIS, UNSPECIFIED 12/20/2015 NICOLASA CULLEN, KSIHA Justice Ot J44.9 CHRONIC OBSTRUCTIVE PULMONARY DISEASE, [...] 02/14/2016 KISHA BALDWIN MD Ot Z79.899 OTHER HUMAN RESOURCES LEADER (CURRENT) DRUG THERAPY 02/14/2016 MAJOR GIPSON APRN Ot J30.9 ALLERGIC RHINITIS, UNSPECIFIED 02/14/2016 MAJOR GIPSON APRN Ot R06.02 SHORTNESS OF BREATH 02/15/2016 KISHA BALDWIN MD Ot 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 02/15/2016 KISHA BALDWIN MD Ot E11.9 TYPE 2 DIABETES MELLITUS WITHOUT COMPLIC 02/15/2016 KISHA BALDWIN MD Ot Z79.899 OTHER HUMAN RESOURCES LEADER (CURRENT) DRUG THERAPY 02/16/2016 SIERRA GOMEZ MD [...] APRN Ot R06.02 SHORTNESS OF BREATH 02/22/2016 ZURILENDER DOEDI Ot Z12.31 ENCNTR SCREEN MAMMOGRAM FOR [...] APRN Ot J30.9 ALLERGIC RHINITIS, UNSPECIFIED 02/22/2016 AMJOR GIPSON APRN Ot R06.02 SHORTNESS OF BREATH [...] 05/08/2016 KISHA BALDWIN MD Ot Z79.899 OTHER CORRECTION (CURRENT) DRUG THERAPY 05/08/2016 KISHA BALDWIN MD [...] 05/09/2016 KISHA BALDWIN MD Ot Z79.899 OTHER HUMAN RESOURCES LEADER (CURRENT) DRUG THERAPY 05/09/2016 KISHA BALDWIN MD [...] DERANGEMENTS OF RIGHT KNE 05/10/2016 KISHA BALDWIN MD Ot M23.8X2 OTHER INTERNAL DERANGEMENTS OF LEFT KNEE 05/10/2016 KISHA BALDWIN MD Ot Z79.899 OTHER CORRECTION (CURRENT) DRUG THERAPY 05/10/2016 KISHA BALDWIN MD Ot Z87.891 PERSONAL HISTORY OF NICOTINE DEPENDENCE 05/15/2016 EDI FAUSTIN DO Ot Z12.31 ENCNTR [...] ALLERGIC RHINITIS, UNSPECIFIED 05/15/2016 TRINITY LOU ZAHIRA Kramer Ot R06.02 SHORTNESS OF BREATH 05/15/2016 AFRICA CULLEN, LUNA Christianson Ot R07.89 OTHER CHEST PAIN 05/15/2016 LUNA [...] DO Ot J30.9 ALLERGIC RHINITIS, UNSPECIFIED 05/24/2016 ZAHIRA PETERSEN DO Ot R06.02 SHORTNESS OF BREATH 05/24/2016 ZAHIRA PETERSEN DO Ot E66.01 MORBID (SEVERE) OBESITY DUE TO EXCESS CA 05/24/2016 TRINITY DOZAHIRA Ot J30.9 ALLERGIC RHINITIS, UNSPECIFIED 05/24/2016 TRINITY LOU ZAHIRA Kramer Ot R06.02 SHORTNESS [...] 06/09/2016 LAYTON HERNANDEZ MD Ot Z79.899 OTHER CORRECTION (CURRENT) DRUG THERAPY 06/11/2016 LAYTON HERNANDEZ MD Ot E11.9 TYPE 2 DIABETES MELLITUS WITHOUT COMPLIC 06/11/2016 LAYTON HERNANDEZ MD Ot I10 ESSENTIAL (PRIMARY) HYPERTENSION 06/11/2016 LAYTON HERNANDEZ MD Ot N39.0 URINARY TRACT INFECTION, SITE NOT SPECIF 06/11/2016 LAYTON HERNANDEZ MD Ot R05 COUGH 06/11/2016 LAYTON HERNANDEZ MD Ot R42 DIZZINESS AND GIDDINESS 06/11/2016 LAYTON HERNANDEZ MD Ot Z79.899 OTHER HUMAN RESOURCES LEADER (CURRENT) DRUG THERAPY 06/13/2016 EDI FAUSTIN DO Ot Z12.31 ENCNTR SCREEN MAMMOGRAM FOR MALIGNANT NE 06/13/2016 NICOLASA CULLEN, KISHA Justice Ot M75.112 INCOMPLETE ROTATR-CUFF TEAR/RUPTR OF L S 06/13/2016 EDI FAUSTIN DO Ot J18.9 PNEUMONIA, UNSPECIFIED ORGANISM 06/13/2016 EDI FAUSTIN DO Ot J40 BRONCHITIS, NOT SPECIFIED ACUTE OR CH 06/13/2016 NICOLASA CULLEN, KISHA Justice Ot M75.102 UNSP ROTATR-CUFF TEAR/RUPTR OF LEFT SHOU 06/13/2016 NICOLASA CULLEN, KISHA Justice Ot Z01.818 ENCOUNTER [...] RIGHT LOWER QUADRANT PAIN 06/18/2016 JANELLE ESPITIA WAX CUTTER Ot R11.0 NAUSEA 06/18/2016 JANELLE ESPITIA WAX CUTTER Ot Z79.899 OTHER HUMAN RESOURCES LEADER (CURRENT) DRUG THERAPY 06/19/2016 JANELLE ESPITIA APRN Ot E11.9 TYPE 2 DIABETES MELLITUS WITHOUT COMPLIC 06/19/2016 JANELLE ESPITIA WAX CUTTER Ot I10 ESSENTIAL (PRIMARY) HYPERTENSION 06/19/2016 JANELLE ESPITIA WAX CUTTER Ot J44.9 CHRONIC OBSTRUCTIVE PULMONARY DISEASE, U 06/19/2016 JANELLE ESPITIA APRN Ot R10.31 RIGHT LOWER QUADRANT PAIN 06/19/2016 JANELLE ESPITIA APRN Ot R11.0 NAUSEA 06/19/2016 JANELLE ESPITIA APRN Ot Z79.899 OTHER HUMAN RESOURCES LEADER (CURRENT) DRUG THERAPY 06/20/2016 JANELLE ESPITIA APRN Ot E11.9 TYPE 2 DIABETES MELLITUS WITHOUT COMPLIC 06/20/2016 JANELLE ESPITIA APRN Ot I10 ESSENTIAL (PRIMARY) HYPERTENSION 06/20/2016 JANELLE ESPITIA APRN Ot J44.9 CHRONIC OBSTRUCTIVE PULMONARY DISEASE, U 06/20/2016 JANELLE ESPITIA WAX CUTTER Ot R10.31 RIGHT LOWER QUADRANT PAIN 06/20/2016 JANELLE ESPITIA WAX CUTTER Ot R11.0 NAUSEA 06/20/2016 JANELLE ESPITIA WAX CUTTER Ot Z79.899 OTHER CORRECTION (CURRENT) DRUG THERAPY 06/23/2016 ZAHIRA PETERSEN DO [...] 07/02/2016 LUNA LEGER MD Ot Z79.899 OTHER CORRECTION (CURRENT) DRUG THERAPY 07/03/2016 LUNA LEGER MD Ot E11.9 TYPE 2 DIABETES MELLITUS WITHOUT COMPLIC 07/03/2016 LUNA LEGER MD Ot I10 ESSENTIAL (PRIMARY) HYPERTENSION 07/03/2016 LUNA LEGER MD Ot J44.9 CHRONIC OBSTRUCTIVE PULMONARY DISEASE, U 07/03/2016 LUNA LEGER MD Ot R10.31 RIGHT LOWER QUADRANT PAIN 07/03/2016 LUNA LEGER MD Ot R11.10 VOMITING, UNSPECIFIED 07/03/2016 LUNA LEGER MD Ot Z79.899 OTHER CORRECTION (CURRENT) DRUG THERAPY 07/12/2016 EDI FAUSTIN DO [...] PLEURISY 07/18/2016 JANELLE ESPITIA APRN Ot Z79.84 HUMAN RESOURCES LEADER (CURRENT) USE OF ORAL HYPOGLYC 07/18/2016 JANELLE ESPITIA APRN Ot Z79.899 OTHER HUMAN RESOURCES LEADER (CURRENT) DRUG THERAPY 07/19/2016 JANELLE ESPITIA APRN Ot E11.9 TYPE 2 DIABETES MELLITUS WITHOUT COMPLIC 07/19/2016 JANELLE ESPITIA APRN Ot I10 ESSENTIAL (PRIMARY) HYPERTENSION 07/19/2016 JANELLE ESPITIA APRN Ot J44.0 CHRONIC OBSTRUCTIVE PULMON DISEASE W ACU 07/19/2016 JANELLE ESPITIA APRN Ot R05 COUGH 07/19/2016 JANELLE ESPITIA APRN Ot R09.1 PLEURISY 07/19/2016 JANELLE ESPITIA APRN Ot Z79.84 CORRECTION (CURRENT) USE OF ORAL HYPOGLYC 07/19/2016 JANELLE ESPITIA APRN Ot Z79.899 OTHER CORRECTION (CURRENT) DRUG THERAPY 07/23/2016 EDI FAUSTIN DO [...] U 08/03/2016 CHRISTO VIDAL MD Ot Z79.84 CORRECTION (CURRENT) USE OF ORAL HYPOGLYC 08/03/2016 CHRISTO VIDAL MD Ot Z79.899 OTHER CORRECTION (CURRENT) DRUG THERAPY 08/05/2016 EDI FAUSTIN DO [...] U 08/05/2016 CHRISTO VIDAL MD Ot Z79.84 CORRECTION (CURRENT) USE OF ORAL HYPOGLYC 08/05/2016 YOUNG CULLEN, CHRISTO Huston Ot Z79.899 OTHER HUMAN RESOURCES LEADER (CURRENT) DRUG THERAPY 08/09/2016 CHRISTO VIDAL MD Ot E11.9 TYPE 2 DIABETES MELLITUS WITHOUT COMPLIC 08/09/2016 CHRISTO VIDAL MD Ot F41.9 ANXIETY DISORDER, UNSPECIFIED 08/09/2016 CHRISTO VIDAL MD Ot I10 ESSENTIAL (PRIMARY) HYPERTENSION 08/09/2016 CHRISTO VIDAL MD Ot J02.9 ACUTE PHARYNGITIS, UNSPECIFIED 08/09/2016 CHRISTO VIDAL MD Ot J44.9 CHRONIC OBSTRUCTIVE PULMONARY DISEASE, U 08/09/2016 CHRITSO VIDAL MD Ot Z79.84 CORRECTION (CURRENT) USE OF ORAL HYPOGLYC 08/09/2016 CHRISTO VIDAL MD Ot Z79.899 OTHER CORRECTION (CURRENT) DRUG THERAPY 08/14/2016 EDI FAUSTIN DO Ot R10.11 RIGHT UPPER QUADRANT PAIN 08/15/2016 JANELLE ESPITIA APRN Ot E11.9 TYPE 2 DIABETES MELLITUS WITHOUT COMPLIC 08/15/2016 JANELLE ESPITIA WAX CUTTER Ot F41.9 ANXIETY DISORDER, UNSPECIFIED 08/15/2016 JANELLE ESPITIA WAX CUTTER Ot I10 ESSENTIAL (PRIMARY) HYPERTENSION 08/15/2016 JANELLE ESPITIA APRN Ot J44.9 CHRONIC OBSTRUCTIVE PULMONARY DISEASE, U 08/15/2016 JANELLE ESPITIA APRN Ot R07.89 OTHER CHEST PAIN 08/15/2016 JANELLE ESPITIA APRN Ot R07.9 CHEST PAIN, UNSPECIFIED 08/15/2016 JANELLE ESPITIA WAX CUTTER Ot Z79.84 CORRECTION (CURRENT) USE OF ORAL HYPOGLYC 08/15/2016 JANELLE ESPITIA WAX CUTTER Ot Z79.899 OTHER HUMAN RESOURCES LEADER (CURRENT) DRUG THERAPY 08/15/2016 JANELLE ESPITIA APRN Ot E11.9 TYPE 2 DIABETES MELLITUS WITHOUT COMPLIC 08/15/2016 JANELLE ESPITIA WAX CUTTER Ot F41.9 ANXIETY DISORDER, UNSPECIFIED 08/15/2016 JANELLE ESPITIA WAX CUTTER Ot I10 ESSENTIAL (PRIMARY) HYPERTENSION 08/15/2016 JANELLE ESPITIA WAX CUTTER Ot J44.9 CHRONIC OBSTRUCTIVE PULMONARY DISEASE, U 08/15/2016 ESPITIAJANELLE CAMPBELL APRN Ot R07.89 OTHER CHEST PAIN 08/15/2016 JANELLE ESPITIA WAX CUTTER Ot R07.9 CHEST PAIN, UNSPECIFIED 08/15/2016 JANELLE ESPITIA WAX CUTTER Ot Z79.84 CORRECTION (CURRENT) USE OF ORAL HYPOGLYC 08/15/2016 JANELLE ESPITIA WAX CUTTER Ot Z79.899 OTHER HUMAN RESOURCES LEADER (CURRENT) DRUG THERAPY 08/21/2016 ZAHIRA PETERSEN DO Ot E66.01 MORBID (SEVERE) OBESITY DUE TO EXCESS CA 08/21/2016 ZAHIRA PETERSEN DO Ot J30.9 ALLERGIC RHINITIS, UNSPECIFIED 08/21/2016 ZAHIRA PETERSEN DO Ot R06.02 SHORTNESS OF BREATH 08/21/2016 ZAHIRA PETERSEN DO Ot R91.1 SOLITARY PULMONARY NODULE 08/24/2016 JANELLE ESPITIA APRN Ot E11.9 TYPE 2 DIABETES MELLITUS WITHOUT COMPLIC 08/24/2016 JANELLE ESPITIA APRN Ot J44.9 CHRONIC OBSTRUCTIVE PULMONARY DISEASE, U 08/24/2016 JANELLE ESPITIA APRN Ot M54.5 LOW BACK PAIN 08/24/2016 JANELLE ESPITIA WAX CUTTER Ot Z79.84 HUMAN RESOURCES LEADER (CURRENT) USE OF ORAL HYPOGLYC 08/24/2016 JANELLE ESPITIA APRN Ot Z79.899 OTHER HUMAN RESOURCES LEADER (CURRENT) DRUG THERAPY 08/26/2016 JANELLE ESPITIA APRN Ot E11.9 TYPE 2 DIABETES MELLITUS WITHOUT COMPLIC 08/26/2016 JANELLE ESPITIA APRN Ot J44.9 CHRONIC OBSTRUCTIVE PULMONARY DISEASE, U 08/26/2016 JANELLE ESPITIA APRN Ot M54.5 LOW BACK PAIN 08/26/2016 JANELLE ESPITIA WAX CUTTER Ot Z79.84 CORRECTION (CURRENT) USE OF ORAL HYPOGLYC 08/26/2016 JANELLE ESPITIA WAX CUTTER Ot Z79.899 OTHER HUMAN RESOURCES LEADER (CURRENT) DRUG THERAPY 09/04/2016 ZAHIRA PETERSEN DO [...] ROTATR-CUFF TEAR/RUPTR OF LEFT SHOU 09/13/2016 KISHA BALDWIN MD Ot Z01.818 ENCOUNTER FOR OTHER PREPROCEDURAL EXAMIN 09/13/2016 KISHA BALDWIN MD Ot Z11.2 ENCOUNTER FOR SCREENING FOR OTHER BACTER 09/13/2016 KISHA CARRILLO MD Ot R13.19 OTHER DYSPHAGIA 09/13/2016 KISHA CARRILLO [...] OBESITY DUE TO EXCESS CA 09/13/2016 TRINITY DO ZAHIRA Kramer Ot J30.9 ALLERGIC RHINITIS, UNSPECIFIED 09/13/2016 TRINITY LOU ZAHIRA Kramer Ot R06.02 SHORTNESS OF BREATH 09/13/2016 RAMIN [...] 09/13/2016 LAYTON HERNANDEZ MD Ot Z79.899 OTHER HUMAN RESOURCES LEADER (CURRENT) DRUG THERAPY 09/13/2016 LAYTON HERNANDEZ MD [...] J44.9 CHRONIC OBSTRUCTIVE PULMONARY DISEASE, U 09/16/2016 DAVID CULLEN, LAYTON Spencer Ot K59.00 CONSTIPATION, UNSPECIFIED 09/16/2016 DAVID CULLEN, LAYTON Spencer Ot K82.9 DISEASE OF GALLBLADDER, UNSPECIFIED 09/16/2016 DAVID CULLEN, LAYTON Spencer Ot R11.2 NAUSEA WITH VOMITING, UNSPECIFIED 09/16/2016 DAVID CULLEN, LAYTON Spencer Ot Z79.899 OTHER HUMAN RESOURCES LEADER (CURRENT) DRUG THERAPY 09/16/2016 DAVID CULLEN, LAYTON [...] EDI FAUSTIN DO Ot N64.4 MASTODYNIA 10/16/2016 ZAHIRA PETERSEN DO M Ot E66.01 MORBID (SEVERE) OBESITY DUE TO EXCESS CA 10/16/2016 TRINITY LOU ZAHIRA Nia Ot J30.9 ALLERGIC RHINITIS, UNSPECIFIED 10/16/2016 TRINITY LOU ZAHIRA Kramer Ot R06.02 SHORTNESS OF BREATH 10/16/2016 RAMIN LOU EDI A Ot R10.12 LEFT UPPER QUADRANT PAIN 10/16/2016 ZURIBJDAYLIN DO EDI A Ot R10.11 RIGHT UPPER QUADRANT PAIN 10/16/2016 DONNA CULLEN, NICKY Lawrence Ot E11.65 TYPE 2 DIABETES MELLITUS WITH HYPERGLYCE 10/16/2016 NICKY THOMPSON MD Ot R10.11 RIGHT UPPER QUADRANT PAIN 10/16/2016 AFRICA CULLEN, LUNA Christianson Ot E11.9 TYPE 2 DIABETES MELLITUS WITHOUT COMPLIC 10/16/2016 LUNA LEGER MD, Ot J44.9 CHRONIC OBSTRUCTIVE PULMONARY DISEASE, U 10/16/2016 LUNA LEGER MD Ot R10.31 RIGHT LOWER QUADRANT PAIN 10/16/2016 LUNA LEGER MD Ot Z79.84 HUMAN RESOURCES LEADER (CURRENT) USE OF ORAL HYPOGLYC 10/16/2016 LUNA LEGER MD Ot Z79.899 OTHER HUMAN RESOURCES LEADER (CURRENT) DRUG THERAPY 10/16/2016 LUNA LEGER MD Ot Z90.49 ACQUIRED ABSENCE OF OTHER SPECIFIED PART 11/03/2016 CHRISTO VIDAL MD Ot J02.0 STREPTOCOCCAL PHARYNGITIS 11/03/2016 CHRISTO VIDAL MD Ot N39.0 URINARY TRACT INFECTION, SITE NOT SPECIF 11/03/2016 CHRISTO VIDAL MD Ot R05 COUGH 11/03/2016 CHRISTO VIDAL MD Ot R07.89 OTHER CHEST PAIN 11/03/2016 CHRISTO VIDAL MD Ot Z79.84 HUMAN RESOURCES LEADER (CURRENT) USE OF ORAL HYPOGLYC 11/03/2016 CHRISTO VIDAL MD Ot Z87.891 PERSONAL HISTORY OF NICOTINE DEPENDENCE 11/05/2016 CHRISTO VIDAL MD Ot J02.0 STREPTOCOCCAL PHARYNGITIS 11/05/2016 CHRISTO VIDAL MD Ot N39.0 URINARY TRACT INFECTION, SITE NOT SPECIF 11/05/2016 CHRISTO VIDAL MD Ot R05 COUGH 11/05/2016 CHRISTO VIDAL MD Ot R07.89 OTHER CHEST PAIN 11/05/2016 CHRISTO VIDAL MD Ot Z79.84 CORRECTION (CURRENT) USE OF ORAL HYPOGLYC 11/05/2016 CHRISTO [...] DISEASE, U 11/22/2016 RAQUEL ROLDAN Ot Z79.4 CORRECTION (CURRENT) USE OF INSULIN 11/22/2016 RAQUEL ROLDAN Ot Z79.899 OTHER CORRECTION (CURRENT) DRUG THERAPY 11/25/2016 RAQUEL ROLDAN Ot 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 11/25/2016 RAQUEL ROLDAN Ot E11.9 TYPE 2 DIABETES MELLITUS WITHOUT COMPLIC 11/25/2016 RAQUEL ROLDAN Ot J44.9 CHRONIC OBSTRUCTIVE PULMONARY DISEASE, U 11/25/2016 RAQUEL ROLDAN Ot Z79.4 CORRECTION (CURRENT) USE OF INSULIN 11/25/2016 RAQUEL ROLDAN Ot Z79.899 OTHER CORRECTION (CURRENT) DRUG THERAPY 11/26/2016 PATRIC MONTERO MD [...] OBSTRUCTIVE PULMONARY DISEASE, U 12/27/2016 Nia RAI MDWAN Ot R07.9 CHEST PAIN, UNSPECIFIED 01/01/2017 CECELIA CULLEN, Nia WILSON Ot E11.9 TYPE 2 DIABETES MELLITUS WITHOUT COMPLIC 01/01/2017 Nia RAI MD Ot E78.5 HYPERLIPIDEMIA, UNSPECIFIED 01/01/2017 CECELIA CULLEN, Nia WILSON Ot J44.9 CHRONIC [...] STATUS 02/09/2017 LAUREL SHEN MD Ot Z79.82 CORRECTION (CURRENT) USE OF ASPIRIN 02/11/2017 LAUREL SHEN [...] STATUS 02/11/2017 LAUREL SHEN MD Ot Z79.82 CORRECTION (CURRENT) USE OF ASPIRIN 02/27/2017 EDI FAUSTIN [...] DUE TO EXCESS CA 02/27/2017 ZAHIRA PETERSEN DO, Ot J30.9 ALLERGIC RHINITIS, UNSPECIFIED 02/27/2017 ZAHIRA PETERSEN DO Ot R06.02 SHORTNESS OF BREATH 02/27/2017 TRINITY DO, ZAHIRA M Ot E66.01 MORBID (SEVERE) OBESITY DUE TO EXCESS CA 02/27/2017 ZAHIRA PETERSEN DO Ot J30.9 ALLERGIC RHINITIS, UNSPECIFIED 02/27/2017 ZAHIRA PETERSEN DO Ot R06.02 SHORTNESS OF BREATH 02/27/2017 ZAHIRA PETERSEN DO Ot R91.1 SOLITARY PULMONARY NODULE 02/27/2017 RAMIN EDI Christianson Ot N64.4 MASTODYNIA 02/27/2017 ZAHIRA PETERSEN DO Ot E66.01 MORBID (SEVERE) OBESITY DUE TO EXCESS CA 02/27/2017 ZAHIRA PETERSEN DO Ot J30.9 ALLERGIC RHINITIS, UNSPECIFIED 02/27/2017 ZAHIRA PETERSEN DO Ot R06.02 SHORTNESS OF BREATH 02/27/2017 ZURIEDI GARZA DO Ot R10.12 LEFT UPPER QUADRANT PAIN 02/27/2017 EDI FAUSTIN DO Ot R10.11 RIGHT UPPER QUADRANT PAIN 02/27/2017 DONNA CULLEN, NICKY Lawrence Ot E11.65 TYPE 2 DIABETES MELLITUS WITH HYPERGLYCE 02/27/2017 DONNA CULLEN, NICKY R Ot R10.11 RIGHT UPPER QUADRANT PAIN 02/27/2017 [...] Nia WILSON Ot E78.5 HYPERLIPIDEMIA, UNSPECIFIED 02/28/2017 CECELIA CULLEN, [...] OBSTRUCTIVE PULMONARY DISEASE, U 03/04/2017 LAUREL SHEN MD, Ot S83.91XA SPRAIN OF UNSPECIFIED SITE OF RIGHT KNEE 03/04/2017 LAUREL SHEN MD, Ot S89.91XA UNSPECIFIED INJURY OF RIGHT LOWER LEG, I 03/04/2017 LAUREL SHEN MD, Ot W22.03XA WALKED INTO FURNITURE, INITIAL ENCOUNTER 03/04/2017 LAUREL SHEN MD Ot Y99.8 OTHER EXTERNAL CAUSE STATUS 03/04/2017 LAUREL SHEN MD, Ot Z79.82 HUMAN RESOURCES LEADER (CURRENT) USE OF ASPIRIN 03/05/2017 KISHA BALDWIN [...] RIGHT KNEE 03/05/2017 KISHA BALDWIN MD, Ot W22.8XXA STRIKING AGAINST OR STRUCK BY OTHER OBJE 03/05/2017 KISHA BALDWIN MD, Ot Z68.41 BODY MASS INDEX (BMI) 40.0-44.9, ADULT 03/05/2017 KISHA BALDWIN MD, Ot Z79.899 OTHER CORRECTION (CURRENT) DRUG THERAPY 03/05/2017 KISHA BALDWIN MD, Ot Z87.891 PERSONAL HISTORY OF NICOTINE DEPENDENCE 03/06/2017 ESPITIA, PETER J WAX CUTTER Ot E78.00 PURE HYPERCHOLESTEROLEMIA, UNSPECIFIED 03/06/2017 JANELLE [...] WALKED INTO FURNITURE, INITIAL ENCOUNTER 03/06/2017 LAUREL SHNE MD Ot Y99.8 OTHER EXTERNAL CAUSE STATUS 03/06/2017 LAUREL SHEN MD Ot Z79.82 CORRECTION (CURRENT) USE OF ASPIRIN 03/06/2017 KISHA BALDWIN MD Ot E11.9 TYPE 2 DIABETES MELLITUS WITHOUT COMPLIC 03/06/2017 KISHA BALDWIN MD Ot E66.01 MORBID (SEVERE) [...] MD, Ot J45.909 UNSPECIFIED ASTHMA, UNCOMPLICATED 03/06/2017 KISHA BALDWIN MD, Ot K21.9 GASTRO-ESOPHAGEAL REFLUX DISEASE WITHOUT 03/06/2017 KISHA BALDWIN MD, Ot M94.261 CHONDROMALACIA, RIGHT KNEE 03/06/2017 KISHA BALDWIN MD, Ot Z68.41 BODY MASS INDEX (BMI) 40.0-44.9, ADULT 03/06/2017 KISHA BALDWIN MD, Ot Z79.899 OTHER CORRECTION (CURRENT) DRUG THERAPY 03/06/2017 KISHA BALDWIN MD, Ot Z87.891 PERSONAL HISTORY OF NICOTINE DEPENDENCE 03/16/2017 RAQUEL ROLDAN Ot 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 03/16/2017 RAQUEL ROLDAN Ot E11.9 TYPE 2 DIABETES MELLITUS WITHOUT COMPLIC 03/16/2017 RAQUEL ROLDAN Ot J44.9 CHRONIC OBSTRUCTIVE PULMONARY DISEASE, U 03/16/2017 RAQUEL ROLDAN Ot Z79.4 CORRECTION (CURRENT) USE OF INSULIN 03/16/2017 RAQUEL ROLDAN Ot Z79.899 OTHER HUMAN RESOURCES LEADER (CURRENT) DRUG THERAPY 04/08/2017 KISHA BALDWIN MD, [...] INDEX (BMI) 40.0-44.9, ADULT 04/08/2017 KISHA BALDWIN MD, Ot Z79.899 OTHER HUMAN RESOURCES LEADER (CURRENT) DRUG THERAPY 04/08/2017 KISHA BALDWIN MD, Ot Z87.891 PERSONAL HISTORY OF NICOTINE DEPENDENCE 04/29/2017 DEI FAUSTIN DO Ot Z12.31 ENCNTR SCREEN MAMMOGRAM FOR MALIGNANT NE 04/29/2017 KISHA BALDWIN MD Ot M75.112 INCOMPLETE ROTATR-CUFF TEAR/RUPTR OF L S 04/29/2017 EDI FAUSTIN DO Ot J18.9 PNEUMONIA, UNSPECIFIED ORGANISM 04/29/2017 EDI FAUSTIN DO, Ot J40 BRONCHITIS, NOT SPECIFIED ACUTE OR CH 04/29/2017 KISHA BALDWIN MD, Ot M75.102 UNSP ROTATR-CUFF TEAR/RUPTR OF LEFT [...] DUE TO EXCESS CA 04/29/2017 ZAHIRA PETERSEN DO, Ot J30.9 ALLERGIC RHINITIS, UNSPECIFIED 04/29/2017 ZAHIRA PETERSEN DO Ot R06.02 SHORTNESS OF BREATH 04/29/2017 ZAHIRA PETERSEN DO Ot E66.01 MORBID (SEVERE) OBESITY DUE TO EXCESS CA 04/29/2017 ZAHIRA PETERSEN DO, Ot J30.9 ALLERGIC RHINITIS, UNSPECIFIED 04/29/2017 ZAHIRA [...] SHORTNESS OF BREATH 04/29/2017 RAMIN LOU EDI A Ot R10.12 LEFT UPPER QUADRANT PAIN 04/29/2017 [...] MD Ot R07.9 CHEST PAIN, UNSPECIFIED 04/29/2017 Nia [...] G47.33 OBSTRUCTIVE SLEEP APNEA (ADULT) (PEDIATR 04/29/2017 NICOLASA CULLEN, KISHA Justice Ot J44.9 CHRONIC OBSTRUCTIVE PULMONARY DISEASE, U 04/29/2017 KISHA BALDWIN MD Ot J45.909 UNSPECIFIED ASTHMA, UNCOMPLICATED 04/29/2017 KISHA BALDWIN MD, Ot K21.9 GASTRO-ESOPHAGEAL REFLUX DISEASE WITHOUT 04/29/2017 KISHA BALDWIN MD Ot M94.261 CHONDROMALACIA, RIGHT KNEE 04/29/2017 KISHA BALDWIN MD Ot W22.8XXA STRIKING AGAINST OR STRUCK BY OTHER OBJE 04/29/2017 KISHA BALDWIN MD Ot Z68.41 BODY MASS INDEX (BMI) 40.0-44.9, ADULT 04/29/2017 KISHA BALDWIN MD Ot Z79.899 OTHER HUMAN RESOURCES LEADER (CURRENT) DRUG THERAPY 04/29/2017 KISHA BALDWIN MD Ot Z87.891 PERSONAL HISTORY OF NICOTINE DEPENDENCE 04/30/2017 MAJOR GIPSON APRN Ot R06.02 SHORTNESS OF BREATH 04/30/2017 DAVID CULLEN, LAYTON Spenecr Ot E11.9 TYPE 2 DIABETES MELLITUS WITHOUT COMPLIC 04/30/2017 DAVID CULLEN, LAYTON Spencer Ot E78.00 PURE HYPERCHOLESTEROLEMIA, UNSPECIFIED 04/30/2017 LAYTON HERNANDEZ MD Ot F31.9 BIPOLAR DISORDER, UNSPECIFIED 04/30/2017 LAYTON HERNANDEZ MD Ot F41.9 ANXIETY DISORDER, UNSPECIFIED 04/30/2017 LAYTON HERNANDEZ MD Ot G25.81 RESTLESS LEGS SYNDROME 04/30/2017 LAYTON HERNANDEZ MD Ot G47.30 SLEEP APNEA, UNSPECIFIED 04/30/2017 DAVID CULLEN, LAYTON Spencer Ot J44.9 CHRONIC OBSTRUCTIVE PULMONARY DISEASE, U 04/30/2017 LAYTON HERNANDEZ MD Ot K21.9 GASTRO-ESOPHAGEAL REFLUX DISEASE WITHOUT 04/30/2017 LAYTON HERNANDEZ MD, Ot M19.90 UNSPECIFIED OSTEOARTHRITIS, UNSPECIFIED 04/30/2017 LAYTON HERNANDEZ MD Ot M54.6 PAIN IN THORACIC SPINE 04/30/2017 LAYTON HERNANDEZ MD Ot M79.1 MYALGIA 04/30/2017 LAYTON HERNANDEZ MD Ot R07.81 PLEURODYNIA 04/30/2017 LAYTON HERNANDEZ MD Ot R11.0 NAUSEA 04/30/2017 LAYTON HERNANDEZ MD, Ot R51 HEADACHE 04/30/2017 LAYTON HERNANDEZ MD, Ot Z79.84 CORRECTION (CURRENT) USE OF ORAL HYPOGLYC 04/30/2017 LAYTON [...] G25.81 RESTLESS LEGS SYNDROME 05/02/2017 LAYTON HERNANDEZ MD Ot G47.30 SLEEP APNEA, UNSPECIFIED 05/02/2017 LAYTON HERNANDEZ MD, Ot J44.9 CHRONIC OBSTRUCTIVE PULMONARY DISEASE, U 05/02/2017 LAYTON HERNANDEZ MD, Ot K21.9 GASTRO-ESOPHAGEAL REFLUX DISEASE WITHOUT 05/02/2017 LAYTON HERNANDEZ MD, Ot M19.90 UNSPECIFIED OSTEOARTHRITIS, UNSPECIFIED 05/02/2017 LAYTON HERNANDEZ MD Ot M54.6 PAIN IN THORACIC SPINE 05/02/2017 LAYTON HERNANDEZ MD Ot M79.1 MYALGIA 05/02/2017 LAYTON HERNANDEZ MD Ot R07.81 PLEURODYNIA 05/02/2017 LAYTON HERNANDEZ MD Ot R11.0 NAUSEA 05/02/2017 LAYTON HERNANDEZ MD, Ot R51 HEADACHE 05/02/2017 LAYTON HERNANDEZ MD, Ot Z79.84 CORRECTION (CURRENT) USE OF ORAL HYPOGLYC 05/02/2017 LAYTON HERNANDEZ MD, Ot Z87.2 PERSONAL HISTORY OF DISEASES OF THE SKIN 05/02/2017 LAYTON HRENANDEZ MD, Ot Z87.891 PERSONAL HISTORY OF NICOTINE [...] PAIN IN THORACIC SPINE 05/02/2017 LAYTON HERNANDEZ MD Ot M79.1 MYALGIA 05/02/2017 LAYTON HERNANDEZ MD Ot R07.81 PLEURODYNIA 05/02/2017 LAYTON HERNANDEZ MD Ot R11.0 NAUSEA 05/02/2017 LAYTON HERNANDEZ MD, Ot R51 HEADACHE 05/02/2017 LAYTON HERNANDEZ MD Ot Z79.84 CORRECTION (CURRENT) USE OF ORAL HYPOGLYC 05/02/2017 LAYTON [...] ESPITIA APRN Ot Y92.[address] IN RUST NON-INSTITUT (PRIVATE) 05/07/2017 JANELLE ESPITIA APRN Ot Z79.84 HUMAN RESOURCES LEADER (CURRENT) USE OF ORAL HYPOGLYC 05/07/2017 JANELLE ESPITIA APRN Ot Z87.19 PERSONAL HISTORY OF OTHER DISEASES OF 05/07/2017 JANELLE ESPITIA APRN Ot Z87.440 PERSONAL [...] ESPITIA APRN Ot Y92.[address] [facility] [place] [facility] 05/09/2017 JANELLE ESPITIA APRN Ot Z79.84 HUMAN RESOURCES LEADER (CURRENT) USE OF ORAL HYPOGLYC 05/09/2017 JANELLE ESPITIA APRN Ot Z87.19 PERSONAL HISTORY OF OTHER DISEASES OF 05/09/2017 JANELLE ESPITIA APRN Ot Z87.440 PERSONAL HISTORY OF URINARY (TRACT) INFE 05/09/2017 JANELLE ESPITIA APRN Ot Z87.891 PERSONAL HISTORY OF NICOTINE DEPENDENCE 05/09/2017 JANELLE ESPITIA APRN Ot Z90.710 ACQUIRED ABSENCE OF BOTH CERVIX AND UTER 05/27/2017 MAJOR GIPSON APRN Ot R06.02 SHORTNESS OF BREATH 05/28/2017 MAJOR GIPSON WAX CUTTER Ot M79.604 PAIN IN RIGHT LEG 05/28/2017 MAJOR GIPSON WAX CUTTER Ot M79.605 PAIN IN LEFT LEG 05/28/2017 MAJOR GIPSON APRN Ot R06.00 DYSPNEA, UNSPECIFIED 05/28/2017 MAJOR GIPSON WAX CUTTER Ot R22.43 LOCALIZED SWELLING, MASS AND LUMP, LOWER 06/05/2017 MAJOR GIPSON WAX CUTTER Ot R06.02 SHORTNESS OF BREATH 06/06/2017 MAJOR GIPSON WAX CUTTER Ot M79.604 PAIN IN RIGHT LEG 06/06/2017 MAJOR GIPSON WAX CUTTER Ot M79.605 PAIN IN LEFT LEG 06/06/2017 MAJOR GIPSON APRN Ot R06.00 DYSPNEA, UNSPECIFIED 06/06/2017 MAJOR GIPSON APRN Ot R22.43 LOCALIZED SWELLING, MASS AND LUMP, LOWER 06/20/2017 DONNA CULLEN, NICKY R Ot Z12.31 ENCNTR SCREEN MAMMOGRAM FOR MALIGNANT NE 06/27/2017 DONNA CULLEN, NICKY R Ot Z12.31 ENCNTR [...] MALAISE 08/10/2017 JANELLE ESPITIA APRN Ot Z79.84 HUMAN RESOURCES LEADER (CURRENT) USE OF ORAL HYPOGLYC 08/10/2017 JANELLE ESPITIA APRN Ot Z87.19 PERSONAL HISTORY OF OTHER DISEASES OF TH 08/10/2017 JANELLE ESPITIA APRN Ot Z87.448 PERSONAL HISTORY OF OTHER DISEASES OF UR 08/10/2017 JANELLE ESPITIA APRN Ot Z87.891 PERSONAL HISTORY OF NICOTINE DEPENDENCE 08/10/2017 JANELLE ESPITIA WAX CUTTER Ot 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 09/13/2017 REBEKA, OLIVA JET BLADE POLISHER Ot E11.9 TYPE 2 DIABETES MELLITUS WITHOUT COMPLIC 09/13/2017 REBEKA, OLIVA JET BLADE POLISHER Ot E78.00 PURE HYPERCHOLESTEROLEMIA, UNSPECIFIED 09/13/2017 REBEKA, OLIVA JET BLADE POLISHER Ot F31.9 BIPOLAR DISORDER, UNSPECIFIED 09/13/2017 REBEKA, OLIVA JET BLADE POLISHER Ot F41.9 ANXIETY DISORDER, UNSPECIFIED 09/13/2017 REBEKA, OLIVA JET BLADE POLISHER Ot G47.30 SLEEP APNEA, UNSPECIFIED 09/13/2017 REBEKA, OLIVA JET BLADE POLISHER Ot J02.9 ACUTE PHARYNGITIS, UNSPECIFIED 09/13/2017 REBEKA, OLIVA JET BLADE POLISHER Ot J06.9 ACUTE UPPER RESPIRATORY INFECTION, UNSPE 09/13/2017 REBEKA, OLIVA JET BLADE POLISHER Ot J44.9 CHRONIC OBSTRUCTIVE PULMONARY DISEASE, U 09/13/2017 REBEKA, OLIVA JET BLADE POLISHER Ot K21.9 GASTRO-ESOPHAGEAL REFLUX DISEASE WITHOUT 09/13/2017 REBEKA, OLIVA JET BLADE POLISHER Ot Z87.891 PERSONAL HISTORY OF NICOTINE DEPENDENCE 09/13/2017 REBEKA, OLIVA JET BLADE POLISHER Ot 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 09/15/2017 REBEKA, OLIVA JET BLADE POLISHER Ot E11.9 TYPE 2 DIABETES MELLITUS WITHOUT COMPLIC 09/15/2017 REBEKA, OLIVA JET BLADE POLISHER Ot E78.00 PURE HYPERCHOLESTEROLEMIA, UNSPECIFIED 09/15/2017 REBEKA, OLIVA JET BLADE POLISHER Ot F31.9 BIPOLAR DISORDER, UNSPECIFIED 09/15/2017 REBEKA, OLIVA JET BLADE POLISHER Ot F41.9 ANXIETY DISORDER, UNSPECIFIED 09/15/2017 REBEKA, OLIVA JET BLADE POLISHER Ot G47.30 SLEEP APNEA, UNSPECIFIED 09/15/2017 REBEKA, OLIVA JET BLADE POLISHER Ot J02.9 ACUTE PHARYNGITIS, UNSPECIFIED 09/15/2017 REBEKA, OLIVA JET BLADE POLISHER Ot J06.9 ACUTE UPPER RESPIRATORY INFECTION, UNSPE 09/15/2017 REBEKA, OLIVA JET BLADE POLISHER Ot J44.9 CHRONIC OBSTRUCTIVE PULMONARY DISEASE, U 09/15/2017 REBEKA, OLIVA JET BLADE POLISHER Ot K21.9 GASTRO-ESOPHAGEAL REFLUX DISEASE WITHOUT 09/15/2017 REBEKA, OLIVA JET BLADE POLISHER Ot Z87.891 PERSONAL HISTORY OF NICOTINE DEPENDENCE 09/15/2017 OLIVA STALEY Ot 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 11/11/2017 DONNA CULLEN, NICKY Lawrence Ot N64.4 MASTODYNIA 11/12/2017 DONNA CULLEN, NICKY Lawrence Ot N63.23 UNSPECIFIED LUMP IN THE LEFT BREAST, LOW 11/20/2017 GELLENDER , EDI Christianson Ot Z12.31 ENCNTR SCREEN MAMMOGRAM FOR MALIGNANT NE 11/20/2017 NICOLASA CULLEN, KISHA Justice Ot M75.112 INCOMPLETE ROTATR-CUFF TEAR/RUPTR OF L S 11/20/2017 EDI FAUSTIN DO Ot J18.9 PNEUMONIA, UNSPECIFIED ORGANISM 11/20/2017 EDI FAUSTIN DO Ot J40 BRONCHITIS, NOT SPECIFIED ACUTE OR CH 11/20/2017 KISHA BALDWIN MD Ot M75.102 UNSP ROTATR-CUFF TEAR/RUPTR OF LEFT SHOU 11/20/2017 KISHA BALDWIN MD Ot Z01.818 ENCOUNTER FOR OTHER PREPROCEDURAL EXAMIN 11/20/2017 KISHA BALDWIN MD Ot Z11.2 ENCOUNTER FOR SCREENING FOR OTHER BACTER 11/20/2017 LORENA CULLEN, KISHA Justice Ot R13.19 OTHER DYSPHAGIA 11/20/2017 KISHA CARRILLO MD Ot R49.0 DYSPHONIA 11/20/2017 KISHA CARRILLO MD Ot R13.10 DYSPHAGIA, UNSPECIFIED 11/20/2017 EDI FAUSTIN DO Ot R07.81 PLEURODYNIA 11/20/2017 MAJOR GIPSON APRN Ot J30.9 ALLERGIC RHINITIS, UNSPECIFIED 11/20/2017 MAJOR GIPSON APRN Ot R06.02 SHORTNESS OF BREATH 11/20/2017 ZAHIRA PETERSEN DO Ot E66.01 MORBID (SEVERE) OBESITY DUE TO EXCESS CA 11/20/2017 ZAHIRA PETERSEN DO, Ot J30.9 ALLERGIC RHINITIS, UNSPECIFIED 11/20/2017 ZAHIRA PETERSEN DO Ot R06.02 SHORTNESS OF BREATH 11/20/2017 ZAHIRA PETESREN DO Ot E66.01 MORBID (SEVERE) OBESITY DUE TO EXCESS CA 11/20/2017 ZAHIRA PETERSEN DO, Ot J30.9 ALLERGIC RHINITIS, UNSPECIFIED 11/20/2017 ZAHIRA PETERSEN DO Ot R06.02 SHORTNESS OF BREATH 11/20/2017 ZAHIRA PETERSEN DO Ot R91.1 SOLITARY PULMONARY NODULE 11/20/2017 RAMIN LOU, EDI A Ot N64.4 MASTODYNIA 11/20/2017 ZAHIRA PETERSEN DO Ot E66.01 MORBID (SEVERE) OBESITY DUE TO EXCESS CA 11/20/2017 ZAHIRA PETERSEN DO Ot J30.9 ALLERGIC RHINITIS, UNSPECIFIED 11/20/2017 ZAHIRA PETERSEN DO Ot R06.02 SHORTNESS OF BREATH 11/20/2017 RAMIN LOU, EDI A Ot R10.12 LEFT UPPER QUADRANT PAIN 11/20/2017 RAMIN LOU, EDI A Ot R10.11 RIGHT UPPER QUADRANT PAIN 11/20/2017 DONNA CULLEN, NICKY Lawrence Ot E11.65 TYPE 2 DIABETES MELLITUS WITH HYPERGLYCE 11/20/2017 NICKY THOMPSON MD Ot R10.11 RIGHT UPPER QUADRANT PAIN 11/20/2017 KYLAH CULLEN, PATRIC Saucedo Ot R10.31 RIGHT LOWER QUADRANT PAIN 11/20/2017 CECELIA CULLEN, Nia WILSON Ot E11.9 TYPE 2 DIABETES MELLITUS WITHOUT COMPLIC 11/20/2017 Nia RAI MD Ot E78.5 HYPERLIPIDEMIA, UNSPECIFIED 11/20/2017 CECELIA CULLEN, Nia WILSON Ot J44.9 CHRONIC OBSTRUCTIVE PULMONARY DISEASE, U 11/20/2017 CECELIA CULLEN, Nia WILSON Ot R07.9 CHEST PAIN, UNSPECIFIED 11/20/2017 Nia RAI MD Ot E11.9 TYPE 2 DIABETES MELLITUS WITHOUT COMPLIC 11/20/2017 Nia ARI MD Ot E78.5 HYPERLIPIDEMIA, UNSPECIFIED 11/20/2017 Nia RAI MD Ot J44.9 CHRONIC OBSTRUCTIVE PULMONARY DISEASE, U 11/20/2017 Nia RAI MD Ot R07.9 CHEST PAIN, UNSPECIFIED 11/20/2017 MAJOR GIPSON APRN Ot R06.02 SHORTNESS OF BREATH 11/20/2017 MAJOR GIPSON APRN Ot M79.604 PAIN IN RIGHT LEG 11/20/2017 MAJOR GIPSON APRN Ot M79.605 PAIN IN LEFT LEG 11/20/2017 MAJOR GIPSON APRN Ot R06.00 DYSPNEA, UNSPECIFIED 11/20/2017 MAJOR GIPSON APRN Ot R22.43 LOCALIZED SWELLING, MASS AND LUMP, LOWER 11/20/2017 DONNA CULLEN, NICKY Lawrence Ot Z12.31 ENCNTR SCREEN MAMMOGRAM FOR MALIGNANT NE 11/20/2017 DONNA CULLEN, NICKY Lawrence Ot N63.23 UNSPECIFIED LUMP IN THE LEFT BREAST, LOW 11/21/2017 KISHA BALDWIN MD, Ot M94.261 CHONDROMALACIA, RIGHT KNEE 11/21/2017 KISHA BALDWIN MD, Ot Z01.818 ENCOUNTER FOR OTHER PREPROCEDURAL EXAMIN 11/26/2017 KISHA BALDWIN MD, Ot E11.40 TYPE 2 DIABETES MELLITUS WITH DIABETIC N 11/26/2017 KISHA BALDWIN MD, Ot E66.01 MORBID (SEVERE) OBESITY DUE TO EXCESS CA 11/26/2017 KISHA BALDWIN MD, Ot E78.5 HYPERLIPIDEMIA, UNSPECIFIED 11/26/2017 KISHA BALDWIN MD, Ot F31.9 BIPOLAR DISORDER, UNSPECIFIED 11/26/2017 KISHA BALDWIN MD, Ot G35 MULTIPLE SCLEROSIS 11/26/2017 KISHA BALDWIN MD, Ot G47.33 OBSTRUCTIVE SLEEP APNEA (ADULT) (PEDIATR 11/26/2017 KISHA BALDWIN MD Ot I10 ESSENTIAL (PRIMARY) HYPERTENSION 11/26/2017 KISHA BALDWIN MD, Ot I20.9 ANGINA PECTORIS, UNSPECIFIED 11/26/2017 KISHA BALDWIN MD, Ot J44.9 CHRONIC OBSTRUCTIVE PULMONARY DISEASE, U 11/26/2017 KISHA BALDWIN MD, Ot K21.9 GASTRO-ESOPHAGEAL REFLUX DISEASE WITHOUT 11/26/2017 KISHA BALDWIN MD, Ot M22.41 CHONDROMALACIA PATELLAE, RIGHT KNEE 11/26/2017 KISHA BALDWIN MD, Ot M32.9 SYSTEMIC LUPUS ERYTHEMATOSUS, UNSPECIFIE 11/26/2017 KISHA BALDWIN MD, Ot M79.7 FIBROMYALGIA 11/26/2017 KISHA BALDWIN MD, Ot Z11.2 ENCOUNTER FOR SCREENING FOR OTHER BACTER 11/26/2017 KISHA BALDWIN MD, Ot Z68.41 BODY MASS INDEX (BMI) 40.0-44.9, ADULT 11/26/2017 KISHA BALDWIN MD, Ot Z79.84 CORRECTION (CURRENT) USE OF ORAL HYPOGLYC 11/26/2017 KISHA BALDWIN MD, Ot Z79.899 OTHER HUMAN RESOURCES LEADER (CURRENT) DRUG THERAPY 11/26/2017 KISHA BALDWIN MD, Ot Z87.891 PERSONAL HISTORY OF NICOTINE DEPENDENCE 11/27/2017 KISHA BALDWIN MD, Ot E11.40 TYPE 2 DIABETES MELLITUS WITH DIABETIC N 11/27/2017 KISHA BALDWIN MD, Ot E66.01 MORBID (SEVERE) OBESITY DUE TO EXCESS CA 11/27/2017 KISHA BALDWIN MD, Ot E78.5 HYPERLIPIDEMIA, UNSPECIFIED 11/27/2017 KISHA BALDWIN MD, Ot F31.9 BIPOLAR DISORDER, UNSPECIFIED 11/27/2017 KISHA BALDWIN MD, Ot G35 MULTIPLE SCLEROSIS 11/27/2017 KISHA BALDWIN MD, Ot G47.33 OBSTRUCTIVE SLEEP APNEA (ADULT) (PEDIATR 11/27/2017 KISHA BALDWIN MD Ot I10 ESSENTIAL (PRIMARY) HYPERTENSION 11/27/2017 KISHA BALDWIN MD, Ot I20.9 ANGINA PECTORIS, UNSPECIFIED 11/27/2017 KISHA BALDWIN MD, Ot J44.9 CHRONIC OBSTRUCTIVE PULMONARY DISEASE, U 11/27/2017 KISHA BALDWIN MD, Ot K21.9 GASTRO-ESOPHAGEAL REFLUX DISEASE WITHOUT 11/27/2017 KISHA BALDWIN MD, Ot M22.41 CHONDROMALACIA PATELLAE, RIGHT KNEE 11/27/2017 KISHA BALDWIN MD, Ot M32.9 SYSTEMIC LUPUS ERYTHEMATOSUS, UNSPECIFIE 11/27/2017 KISHA BALDWIN MD Ot M79.7 FIBROMYALGIA 11/27/2017 KISHA BALDWIN MD, Ot Z11.2 ENCOUNTER FOR SCREENING FOR OTHER BACTER 11/27/2017 KISHA BALDWIN MD, Ot Z68.41 BODY MASS INDEX (BMI) 40.0-44.9, ADULT 11/27/2017 KISHA BALDWIN MD, Ot Z79.84 HUMAN RESOURCES LEADER (CURRENT) USE OF ORAL HYPOGLYC 11/27/2017 KISHA BALDWIN MD, Ot Z79.899 OTHER CORRECTION (CURRENT) DRUG THERAPY 11/27/2017 KISHA BALDWIN MD, Ot Z87.891 PERSONAL HISTORY OF NICOTINE DEPENDENCE 12/02/2017 DONNA CULLEN, NICKY Lawrence Ot N63.23 UNSPECIFIED LUMP IN THE LEFT BREAST, LOW Procedures There is no data. Results Test [...] culture - 06/09/16 16:24 Bacterial urine culture [id number] NRG COLONY COUNT <10,000 NRG FTX;REPORTABLE SENSITIVITY [...] INFLUENZA A AND B ANTIGENS BY IA [facility] Comprehensive metabolic panel - 04/30/17 15:00 Serum [...] or plasma urea nitrogen/creatinine mass ratio 12 [facility] Serum or plasma creatinine measurement with calculation of estimated glomerular filtration rate > [facility] Serum or plasma glucose measurement (mass/volume) 152 [...] in platelet poor plasma bycoagulation assay - 08/10/17 12:05 Activated partial thromboplastin time (aPTT) in platelet poor plasma bycoagulation assay 27 s 24-35 Serum or plasma troponin i.cardiac measurement (mass/volume) - 08/10/17 12:05 Serum or plasma troponin i.cardiac measurement (mass/volume) < ng/ mL <0.30 Myoglobin, serum - 08/10/17 12:05 Myoglobin, serum 29.0 ng/mL 10.0-92.0 Serum or plasma lithium measurement (moles/volume) - 08/10/17 12:05 BNP level 38.9 pg/mL <100.0 Streptococcus pyogenes antigen detection - 09/13/17 15:39 Streptococcus pyogenes antigen detection NEGATIVE NEGATIVE Influenza virus A and B antigen detection - 09/13/17 15:39 FLU RESULT NEGATIVE FOR INFLUENZA A AND B ANTIGENS BY IA NRG Bacterial throat culture - 09/13/17 15:39 Bacterial throat culture NBS NRG Methicillin resistant Staphylococcus aureus (MRSA) screening culture - 11:24 MRSA SCREEN RESULT MRSA ISOLATED NRG Capillary blood glucose measurement by glucometer (mass/volume) - 11/26/17 07: 50 Capillary blood glucose measurement by glucometer (mass/volume) 124 mg/dL 70-110 Encounters ACCT No. Visit Date/Time Discharge Status Pt. Type Provider Facility Loc./Unit Complaint [id number] 11/26/2017 07:41:00 11/26/2017 12:15:00 DIS Outpatient KISHA BALDWIN MD Via [facility] SDC RIGHT KNEE CHONDROMALACIA [id number] 11/20/2017 11:13:00 11/20/2017 11:30:00 DIS Outpatient KISHA BALDWIN MD Via [facility] PREOP RIGHT KNEE CHONDROMALACIA [id number] 11/11/2017 12:46:00 11/11/2017 23:59:59 CLS Outpatient NICKY THOMPSON MD Via [facility] RAD BREAST PAIN LT [id number] 11/10/2017 09:15:00 11/10/2017 23:59:59 CLS Preadmit NICKY THOMPSON MD Via [facility] RAD N64.4 BREAST PAIN LT [id number] 09/13/2017 15:03:00 09/13/2017 17:36:00 DIS Emergency OLIVA STALEYP Via [facility] ER CHILLS,SORE THROAT,SOB [id number] 08/10/2017 11:29:00 08/10/2017 12:54:00 DIS Emergency JANELLE ESPITIA APRN Via [facility] ER CP [id number] 05/26/2017 09:37:00 05/26/2017 23:59:59 CLS Outpatient NICKY THOMPSON MD Via [facility] RAD SCREENING Z12.31 [id number] 05/08/2017 08:06:00 05/08/2017 23:59:59 CLS Outpatient MAJOR GIPSON APRN Via [facility] RAD DYSPNEA,LEG PAIN [id number] 05/07/2017 17:59:00 05/07/2017 18:57:00 DIS Emergency JANELLE ESPITIA APRN Via [facility] ER PT FELL/LT ARM INJ [id number] 04/30/2017 14:21:00 04/30/2017 15:53:00 DIS Emergency DAVID CULLEN, LAYTON Spencer [facility] ER NAUSEA/FEVER [id number] 04/29/2017 15:19:00 04/29/2017 23:59:59 CLS Outpatient MAJOR GIPSON APRN Via [facility] RAD SOB [id number] 03/05/2017 08:48:00 03/05/2017 12:30:00 DIS [facility] CHONDROMALAC[facility] PATELLA RIGHT KNEE [id number] 02/28/2017 10:26:00 02/28/2017 10:57:00 DIS Outpatient KISHA BALDWIN MD Via [facility] PREOP RIGHT KNEE SCOPE [id number] 02/09/2017 08:27:00 02/09/2017 10:43:00 DIS Emergency LAUREL SHEN MD Via [facility] ER R KNEE TO FOOT PAIN [id number] 01/30/2017 20:20:00 01/30/2017 21:57:00 DIS Emergency JANELLE ESPITIA APRN Via [facility] ER POSSIBLE BLOOD CLOT IN R LEG [id number] 11/28/2016 11:41:00 11/28/2016 23:59:59 CLS Outpatient Nia RAI MD Via [facility] CARD COPD,CHEST PAIN,DM [id number] 11/27/2016 12:52:00 11/27/2016 23:59:59 CLS Outpatient CECELIA CULLEN, Nia WILSON [facility] CARD COPD,CHEST PAIN,DM,HLP [id number] 11/22/2016 14:41:00 11/22/2016 16:20:00 DIS Emergency RAQUEL ROLDAN [facility] ER YEAST INFECTION [id number] 11/04/2016 09:43:00 11/04/2016 23:59:59 CLS Outpatient PATRIC MONTERO MD [facility] RAD RIGHT LOWER QUAD PAIN [id number] 11/03/2016 09:43:00 11/03/2016 11:33:00 DIS Emergency YOUGN CULLEN, CHRISTO Huston [facility] ER CHEST PAIN/SORE THROAT [id number] 10/16/2016 15:43:00 10/16/2016 18:41:00 DIS Emergency LUNA LEGER MD [facility] ER ABD PAIN [id number] 09/19/2016 11:20:00 09/19/2016 17:40:00 DIS Outpatient STEPHANE KIMBLE DO Via [facility] SDC DYSKNESIA [id number] 09/16/2016 05:48:00 09/16/2016 14:05:00 DIS Outpatient STEPHANE KIMBLE DO Via [facility] PREOP DYSKNESIA [id number] 09/13/2016 04:41:00 09/13/2016 08:35:00 DIS Emergency DAVID CULLEN, LAYTON Spencer [facility] ER SORE THROAT, CONSTIPATION,CHEST PAIN [id number] 09/03/2016 09:53:00 09/03/2016 23:59:59 CLS Outpatient NICKY THOMPSON MD [facility] RAD RUQ PAIN [id number] 08/24/2016 15:39:00 08/24/2016 17:34:00 DIS Emergency JANELLE ESPITIA APRN Via [facility] ER BACK PAIN [id number] 08/15/2016 10:42:00 08/15/2016 12:18:00 DIS Emergency JANELLE ESPITIA APRN Via [facility] ER SOA [id number] 08/03/2016 13:42:00 08/03/2016 15:35:00 DIS Emergency YOUNG CULLEN, CHRISTO Huston Via [facility] ER SORE THROAT/PAINFUL TONGUE /THROAT CLOSING [id number] 08/01/2016 12:59:00 08/01/2016 23:59:59 CLS Outpatient ZAHIRA PETERSEN DO Via [facility] RAD LUNG NODULE,SOB,MORBID OBESITY,ALLERGIC RHINITIS [id number] 07/18/2016 14:05:00 07/18/2016 15:11:00 DIS Emergency JANELLE ESPITIA APRN Via [facility] ER CHEST PAIN [id number] 07/11/2016 07:47:00 07/11/2016 23:59:59 CLS Outpatient EDI FAUSTIN DO Via [facility] RAD RUQ ABD PAIN [id number] 07/02/2016 12:50:00 07/02/2016 16:44:00 DIS Emergency LUNA LEGER MD Via [facility] ER LOWER BACK PAIN/ VOMITING [id number] 06/28/2016 12:40:00 06/28/2016 23:59:59 CLS Outpatient EDI FAUSTIN DO Via [facility] RAD LOWER ABD PAIN,HURTS TO PALPITATE WORSE ON LT SIDE [id number] 06/24/2016 08:15:00 06/24/2016 23:59:59 CLS Preadmit ZAHIRA PETERSEN DO Via [facility] PULM SOB,DYSPNEA,MORBID OBESITY,ALLERGIC RHINITIS [id number] 04/09/2016 09:00:00 06/23/2016 00:01:00 DIS Outpatient ZAHIRA PETERSEN DO Via [facility] PULM SOB,DYSPNEA,MORBID OBESITY,ALLERGIC RHINITIS [id number] 06/18/2016 15:18:00 06/18/2016 16:35:00 DIS Emergency JANELLE ESPITIA APRN Via [facility] ER ABD PAIN,NAUSEA [id number] 06/09/2016 15:11:00 06/09/2016 20:36:00 DIS Emergency LAYTON HERNANDEZ MD Via [facility] ER LIGHT HEADED/DIZZY/ BACK PAIN [id number] 05/24/2016 08:43:00 05/24/2016 23:59:59 CLS Outpatient EDI FAUSTIN DO Via [facility] RAD SEVERE L BREAST PAIN [id number] 05/15/2016 11:59:00 05/15/2016 13:58:00 DIS Emergency LUNA LEGER MD Via [facility] ER BACK/LEFT BREAST PAIN [id number] 05/08/2016 09:48:00 05/08/2016 15:15:00 DIS Outpatient KISHA BALDWIN MD Via [facility] LEFT KNEE CHONDROMALASIA [id number] 05/01/2016 12:54:00 05/01/2016 16:15:00 DIS Outpatient KISHA BALDWIN MD Via [facility] PREOP LEFT KNEE CHONDROMALACIA [id number] 03/27/2016 10:23:00 03/27/2016 13:05:00 DIS Emergency LUNA LEGER MD Via [facility] ER CHEST PAIN [id number] 02/28/2016 08:51:00 02/28/2016 23:59:59 CLS Outpatient ZAHIRA PETERSEN DO Via [facility] LAB ALLERGIC RHINITIS, SOB DYSPNEA [id number] 02/21/2016 21:45:00 02/22/2016 02:03:00 DIS Emergency RAQUEL ROLDAN [facility] ER BACK PAIN [id number] 02/14/2016 08:34:00 02/14/2016 13:15:00 DIS Outpatient KISHA BALDWIN MD Via [facility] RIGHT INDEX FINGER CYST [id number] 02/06/2016 14:44:00 02/06/2016 16:11:00 DIS Outpatient KISHA BALDWIN MD Via [facility] PREOP RIGHT INDEX FINGER CYST [id number] 01/26/2016 14:10:00 01/26/2016 17:00:00 DIS Emergency SIERRA GOMEZ MD Via [facility] ER CHEST PAIN/LEFT SIDE NUMBNESS [id number] 01/24/2016 15:04:00 01/24/2016 23:59:59 CLS Outpatient MAJOR GIPSON APRN Via [facility] RT SOA, DYSPNEA [id number] 01/19/2016 15:25:00 01/19/2016 18:25:00 DIS Emergency JANELLE ESPITIA APRN Via [facility] ER LEFT SIDED BODY PAIN [id number] 12/20/2015 10:03:00 12/20/2015 15:35:00 DIS Outpatient KISHA BALDWIN MD Via [facility] SDC RIGHT FINGER CYST [id number] 12/19/2015 16:48:00 12/19/2015 23:59:59 CLS Outpatient EDI FAUSTIN DO Via [facility] RAD LEFT RIB PAIN [id number] 12/16/2015 09:03:00 12/16/2015 10:50:00 DIS Emergency CHELSI GARCIA MD Via [facility] ER CHEST WALL/BACK PAIN [id number] 12/15/2015 10:52:00 12/15/2015 15:44:00 DIS Outpatient KISHA BALDWIN MD Via [facility] PREOP CYST RIGHT FINGER [id number] 11/29/2015 09:37:00 11/29/2015 23:59:59 CLS Outpatient KISHA CARRILLO MD Via [facility] RAD DSYPHAGIA [id number] 11/18/2015 12:02:00 11/18/2015 12:30:00 DIS Emergency CHELSI GARCIA MD Via [facility] ER SOA/COUGH/CHEST CONGESTION [id number] 11/13/2015 10:57:00 11/13/2015 23:59:59 CLS Outpatient KISHA CARRILLO MD Via [facility] RAD DYSPHAGIA OTHER, HOARSENESS [id number] 11/09/2015 21:02:00 11/10/2015 05:45:00 DIS Outpatient KISHA CARRILLO MD Via [facility] SLEEP CHRONIC OBSTRUCTIVE SLEEP APNEA [id number] 10/25/2015 06:55:00 10/25/2015 11:38:00 DIS Outpatient KISHA BALDWIN MD Via [facility] SDC LEFT ROTATOR CUFF TEAR [id number] 10/20/2015 10:31:00 10/20/2015 23:59:59 CLS Outpatient KISHA BALDWIN MD Via [facility] PREOP LEFT SHOULDER TORN ROTATOR CUFF [id number] 10/14/2015 14:28:00 10/14/2015 16:16:00 DIS Emergency DAVID CULLEN, LAYTON Spencer [facility] ER CHEST PAIN [id number] 09/24/2015 08:45:00 09/24/2015 10:53:00 DIS Emergency PATRICIA CULLEN, SIERRA Brady [facility] ER COUGH CONGESTION RIB PAIN [id number] 09/18/2015 10:53:00 09/18/2015 23:59:59 CLS Outpatient EDI FAUSTIN DO Via [facility] RAD BRONCHITIS [id number] 09/14/2015 16:38:00 09/14/2015 18:52:00 DIS Emergency JANELLE ESPITIA APRN Via [facility] ER CHEST WALL PAIN, SORE THROAT, COUGH [id number] 08/22/2015 11:40:00 08/22/2015 23:59:59 CLS Outpatient EDI FAUSTIN DO [facility] RAD PNEUMONIA [id number] 08/12/2015 14:32:00 08/12/2015 16:26:00 DIS Emergency JANELLE ESPITIA APRN [facility] ER DIFF BREATHING/COUGH [id number] 08/08/2015 12:17:00 08/08/2015 23:59:59 CLS Outpatient KISHA BALDWIN MD [facility] RAD RTC TEAR [id number] 07/27/2015 10:36:00 07/27/2015 13:12:00 DIS Emergency JANELLE ESPITIA APRN [facility] ER CHEST PAIN [id number] 07/14/2015 11:29:00 07/14/2015 23:59:59 CLS Outpatient RAMIN LOUEDI [facility] RAD SCREENING [id number] 06/13/2015 13:07:00 06/13/2015 14:53:00 DIS Emergency JANELLE ESPITIA APRN [facility] ER ABD PAIN [id number] 06/08/2015 20:58:00 06/08/2015 21:58:00 DIS Emergency RAQUEL ROLDAN [facility] ER DROWSINESS,VAG ITCHING /IRRITATION [id number] 05/21/2015 12:06:00 05/21/2015 13:10:00 DIS Emergency LUNA LEGER MD [facility] ER ALLERGIC REACTION [id number] 04/16/2015 21:00:00 04/18/2015 09:50:00 DIS Inpatient ANDERS CARRERO DO [facility] SURGICAL UTI [id number] 04/09/2015 13:44:00 04/09/2015 16:42:00 DIS Emergency RAQUEL ROLDAN [facility] ER FEVER
== END 2017-12-05 15:18 | disposition home or self-care (01) ==
LOC: EDUNIT# 13:16 → ER 13:18
DX: R07.81 Pleurodynia (principal); F41.9 Anxiety disorder, unspecified; F32.9 Major depressive disorder, single episode, unspecified; E11.9 Type 2 diabetes mellitus without complications; K21.9 Gastro-esophageal reflux disease without esophagitis; E78.00 Pure hypercholesterolemia, unspecified; J44.9 Chronic obstructive pulmonary disease, unspecified; G25.81 Restless legs syndrome; G47.30 Sleep apnea, unspecified; N39.0 Urinary tract infection, site not specified; Z87.19 Personal history of other diseases of the digestive system; Z90.710 Acquired absence of both cervix and uterus; Z87.891 Personal history of nicotine dependence; Z88.0 Allergy status to penicillin; Z91.041 Radiographic dye allergy status; Z88.8 Allergy status to other drugs, medicaments and biological substances; Z79.84 Long term (current) use of oral hypoglycemic drugs
CPT/HCPCS: 36415; 71045; 80053; 83735; 83874; 84484; 85025; 85610; 85730; 93005; 93041

== ENCOUNTER 2018-04-01 11:12 | Emergency (ER) | payer MEDICARE, MEDICAID ==
[~2018-04-01] VITALS: Ht 175.3 cm; Wt 124.7 kg
[~2018-04-01 11:12] MED LIST changes: -CODE118S2 PO; +CODE118S4 PO; -METF1000 PO; +METF10002 PO; -METF500T4 PO; +METF500T5 PO; +NAPR-1070 PO
[2018-04-01] MEDS ORDERED: LACTATED RINGERS 1,000 ML IV ONE (11:24)
[2018-04-01 11:44] LABS: BASOPHILS % (AUTO) 0 % (0-10); EOSINOPHILS # (AUTO) 0.2 10^3/uL (0.0-0.3); EOSINOPHILS % (AUTO) 2 % (0-10); HEMATOCRIT 38 % (35-52); HEMOGLOBIN 13.1 G/DL (11.5-16.0); LYMPHOCYTES # (AUTO) 3.1 X 10^3 (1.0-4.0); LYMPHOCYTES % (AUTO) 33 % (12-44); MEAN CORPUSCULAR HEMOGLOBIN 28 PG (25-34); MEAN CORPUSCULAR HGB CONC 34 G/DL (32-36); MEAN CORPUSCULAR VOLUME 81 FL (80-99); MEAN PLATELET VOLUME 11.8 FL (7.4-10.4); MONOCYTES # (AUTO) 0.5 X 10^3 (0.0-1.0); MONOCYTES % (AUTO) 5 % (0-12); NEUTROPHILS # (AUTO) 5.6 X 10^3 (1.8-7.8); NEUTROPHILS % (AUTO) 59 % (42-75); PLATELET COUNT 226 10^3/uL (130-400); RED CELL DISTRIBUTION WIDTH 14.5 % (10.0-14.5); WHITE BLOOD COUNT 9.4 10^3/uL (4.3-11.0)
[2018-04-01] MEDS ORDERED: diphenhydrAMINE 50 MG/ML INJ (BENADRYL) IVP ONE (12:00)
[2018-04-01] MEDS ORDERED: PROMETHAZINE INJ 25 MG/ML (PHENERGAN) AMP IVP ONE (12:00)
[2018-04-01] MEDS ORDERED: KETOROLAC 30 MG/ML VIAL IVP ONE (12:00)
[2018-04-01 12:04] LABS: ALANINE AMINOTRANSFERASE 36 U/L (0-55); ALBUMIN 4.1 GM/DL (3.2-4.5); ALKALINE PHOSPHATASE 92 U/L (40-136); AMYLASE 83 U/L (25-125); BILIRUBIN,TOTAL 0.4 MG/DL (0.1-1.0); BUN/CREATININE RATIO 13; CALCIUM 9.5 MG/DL (8.5-10.1); CARBON DIOXIDE 21 MMOL/L (21-32); CHLORIDE 106 MMOL/L (98-107); GFR ESTIMATED > 60; GLUCOSE 101 MG/DL (70-105); LIPASE 64 U/L (8-78); POTASSIUM 4.3 MMOL/L (3.6-5.0); SODIUM 138 MMOL/L (135-145); TOTAL PROTEIN 7.3 GM/DL (6.4-8.2)
[2018-04-01 12:07] LABS: CLARITY,URINE VERY CLOUDY; COLOR,URINE YELLOW; GLUCOSE, URINE (UA) NEGATIVE (NEGATIVE); KETONES,URINE NEGATIVE (NEGATIVE); LEUKOCYTE ESTERASE ,URINE 3+ (NEGATIVE); NITRITE,URINE NEGATIVE (NEGATIVE); PH,URINE 6 (5-9); PROTEIN,URINE 1+ (NEGATIVE); UROBILINOGEN,URINE 1 MG/DL (NORMAL)
[2018-04-01 12:17] LABS: BACTERIA,URINE MODERATE /HPF
[2018-04-01 12:19] LABS: BILIRUBIN,URINE 1+ (NEGATIVE)
--- NOTE | 2018-04-01 12:40 | Diagnostic Imaging Report ---
PROCEDURE: CT urinary tract, rule out kidney stone. TECHNIQUE: Multiple contiguous axial images were obtained through the abdomen and pelvis without the use of intravenous contrast. INDICATION: Abdominal pain. COMPARISON: 10/16/2016. FINDINGS: The visualized lung bases are clear. Cholecystectomy. The unenhanced liver, spleen, adrenal glands, and pancreas are unremarkable. The bilateral kidneys and ureters are unremarkable. Scattered vascular calcifications. No aneurysmal dilatation of abdominal aorta. The urinary bladder is decompressed, therefore not well evaluated. The uterus is not visualized, likely surgically absent. No abnormal adnexal mass lesion. The appendix is unremarkable. Mild fatty infiltration of the benitez of the cecum are identified. The cecum is not well-distended with mild mural thickening without adjacent fat stranding. No bowel obstruction or pneumatosis. No significant adenopathy, free air, or free fluid within abdomen or pelvis. Scattered osseous degenerative changes without acute osseous abnormality. IMPRESSION: Fatty infiltration of the benitez of the cecum with associated mild mural thickening. This can be secondary to sequelae of inflammatory bowel disease. However, currently, no significant inflammatory changes or bowel obstruction identified. Cholecystectomy and hysterectomy. Additional findings as above. Dictated by: Dictated on workstation # [id number]
--- NOTE | 2018-04-01 12:43 | Diagnostic Imaging Report ---
INDICATION: Right lower quadrant abdominal pain x1 day. TECHNIQUE: Single view chest with supine and upright radiographs of the abdomen. CORRELATION STUDY: Chest 12/05/2017 FINDINGS: Frontal radiograph of the chest demonstrates no acute abnormality. Supine and upright radiographs of the abdomen demonstrates the bowel gas pattern to be unremarkable and without evidence for obstruction. No free air is seen under the diaphragms. No pathologic intraabdominal calcifications. Presumably cholecystic clips in the right upper quadrant. Multiple phlebolith calcification in the pelvis. Degenerative changes visualized lower lumbar spine. IMPRESSION: 1. Negative for acute cardiopulmonary abnormality. 2. Unremarkable appearing bowel gas pattern. Dictated by: Dictated on workstation # [id number]
[2018-04-01] MEDS ORDERED: cefTRIAXone INJECTION 1,000 MG in NS (IVPB) 50 ML IV ONE (13:00)
[2018-04-01] MEDS ORDERED: TRAM-42 PO (13:01)
[2018-04-01] MEDS ORDERED: METR500T PO (13:01)
[2018-04-01] MEDS ORDERED: KETO10TA PO (13:01)
[2018-04-01] MEDS ORDERED: CIPR-225 PO (13:01)
[2018-04-01] MEDS ORDERED: PROM25SU43 RC (13:01)
--- NOTE | 2018-04-01 13:01 | ED Abdominal Pain ---
General Chief Complaint: Abdominal/GI Problems Stated Complaint: L SIDE PAIN Nursing Triage Note: Pt c/o RLQ pain that has worsened since starting 0700. Pt describes severe "10" on pain scale. Pt ate eggs and toast at 0730 Sepsis Screen: No Definite Risk Source of Information: Patient History of Present Illness Date Seen by Provider: Apr 01, 2018 Time Seen by Provider: 11:24 Initial Comments PT ARRIVES VIA POV FROM HOME, WANTING A WHEELCHAIR ON ARRIVAL DUE TO PAIN IN ABDOMEN C/O SEVERE RLQ PAIN SINCE WAKING + NAUSEA, NO VOMITING HAD A NORMAL BM LAST PM--NO BLACK/BLOODY/TARRY STOOLS ATE BREAKFAST AT 0730 OF EGGS AND TOAST HAS BEEN DRINKING "ALOT" OF WATER TODAY NO PROBLEMS URINATING NO KNOWN FEVER BUT PT DROVE TO AND FROM [employer] THIS AM, AND HAD SWEATS ON THE WAY HOME, BUT HAS NOT CHECKED HER TEMPERATURE NOTHING WORSENS OR IMPROVES PAIN HAS NOT TAKEN ANYTHING FOR PAIN PCP: [facility], DR. THOMPSON Allergies and Home Medications Allergies Coded Allergies: Iodinated Contrast- Oral and IV Dye (Unverified Allergy, Unknown, 02/28/17) penicillin (Verified Allergy, Unknown, HAS RECEIVED ROCEPHIN, 02/28/17) Uncoded Allergies: ZOFRAN (Allergy, Unknown, 12/05/17) Home Medications Albuterol Sulfate 8.5 Gm Hfa.aer.ad, 2 PUFF IH Q4H PRN for WHEEZING, (Reported) Atorvastatin Calcium 10 Mg Tablet, 10 MG PO DAILY, (Reported) Ciprofloxacin HCl 500 Mg Tablet, 500 MG PO BID Prescribed by: MURALI ORLANDO on 04/01/18 1301 Fluoxetine HCl 40 Mg Capsule, 40 MG PO DAILY, (Reported) Fluticasone Propionate 9.9 Ml [place].susp, 1 SPRAY NS BID, (Reported) Fluticasone/Vilanterol 1 Each Blst.w.dev, 1 EACH IH DAILY, (Reported) Ketorolac Tromethamine 10 Mg Tablet, 10 MG PO Q6H Prescribed by: MURALI ORLANDO on 04/01/18 1301 Metformin HCl 1,000 Mg Tablet, 2,000 MG PO BID, (Reported) Metronidazole 500 Mg Tablet, 500 MG PO QID Prescribed by: MURALI ORLANDO on 04/01/18 1301 Naproxen Sodium 550 Mg Tablet, 550 MG PO BID PRN for PAIN-MODERATE TO SEVERE Prescribed by: JANELLE ESPITIA on 12/05/17 1429 Omeprazole 40 Mg Capsule.dr, 40 MG PO DAILY, (Reported) Promethazine HCl 25 Mg Supp.rect, 25 MG RC Q4H Prescribed by: MURALI ORLANDO on 04/01/18 1301 Tramadol HCl 50 Mg Tablet, 50 MG PO Q4H Prescribed by: MURALI ORLANDO on 04/01/18 1301 Patient Home Medication List Home Medication List Reviewed: Yes Review of Systems Constitutional: see HPI, diaphoresis EENTM: No Symptoms Reported Respiratory: No Symptoms Reported Cardiovascular: No Symptoms Reported Gastrointestinal: See HPI, Abdominal Pain; Denies Constipated, Denies Diarrhea ; Nausea; Denies Vomiting Genitourinary: No Symptoms Reported Musculoskeletal: no symptoms reported Skin: no symptoms reported Psychiatric/Neurological: No Symptoms Reported Endocrine: No Symptoms Reported Hematologic/Lymphatic: No Symptoms Reported Past Uuqhnnz-Refjtm-Gfutlw Hx Patient Social History Alcohol Use: Denies Use Recreational Drug Use: No Smoking Status: Former Smoker (1-2 PPD, QUIT 2000) Type Used: Cigarettes 2nd Hand Smoke Exposure: No Recent Foreign Travel: No Contact w/Someone Who Travel: No Recent Infectious Disease Expo: No Recent Hopitalizations: No Immunizations Up To Date Tetanus Booster (TDap): Unknown PED Vaccines UTD: No Date of Pneumonia Vaccine: Feb 28, 2012 Date of Influenza Vaccine: Jul 16, 2017 Seasonal Allergies Seasonal Allergies: No Past Medical History Surgeries: Yes (HYST/USO ( DOES NOT RECALL WHICH SIDE); BILATERAL CARPAL TUNNEL ; LEFT KNEE SURGERY X 9;SHOULDER SURGERY; HERNIA REPAIR ) Abdominal, Gallbladder, Hysterectomy, Oophorectomy, Orthopedic Respiratory: Yes (CPAP) Asthma, Sleep Apnea, COPD Currently Using CPAP: Yes Cardiac: Yes High Cholesterol Neurological: No Reproductive Disorders: Yes (PID) 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 Sexually Transmitted Disease: Yes (PID) HIV/AIDS: No Genitourinary: Yes Kidney Infection, Bladder Infection, UTI-Chronic Gastrointestinal: Yes Gastroesophageal Reflux, Irritable Bowel Musculoskeletal: Yes (RESTLESS LEG SYNDROME) Arthritis, Fibromyalgia, Chronic Back Pain Endocrine: Yes (OBESITY) Diabetes, Non-Insulin dep HEENT: No Loss of Vision: Bilateral Hearing Impairment: Denies Cancer: No Psychosocial: Yes Anxiety, Bipolar Integumentary: No Blood Disorders: No Adverse Reaction/Blood Tranf: No (N/A) Family Medical History Arthritis 19 MOTHER, Onset:Unknown Asthma 19 FATHER, Onset:Unknown Cataracts 19 MOTHER, Onset:Unknown Diabetes mellitus 19 MOTHER, Onset:Unknown FH: COPD (chronic obstructive pulmonary disease) 19 FATHER, Onset:Unknown Hypercholesterolemia 19 MOTHER MS (multiple sclerosis) G8 SISTER, Onset:Unknown No Pertinent Family Hx Physical Exam Vital Signs Vital Signs - First Documented 04/01/18 11:23 Temp 97.9 Pulse 83 Resp 20 B/P (MAP) 137/70 (92) Pulse Ox 96 O2 Delivery Room Air Capillary Refill : Less Than 3 Seconds General Appearance: obese, other (DRAMATIC, MOANING, HOLDING RLQ, ) HEENT: other (EDENTULOUS) Neck: normal inspection Respiratory: normal breath sounds, no respiratory distress, no accessory muscle use Cardiovascular: regular rate, rhythm, no murmur Gastrointestinal: normal bowel sounds; No distended; guarding, tenderness (RLQ) ; No hernia, No mass Extremities: normal inspection Back: no CVA tenderness 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, no motor/sensory deficits Skin: normal color, warm/dry; No rash Progress/Results/Core Measures Results/Orders Lab Results Laboratory Tests Test 04/01/18 11:30 04/01/18 11:57 Range/Units White Blood Count 9.4 4.3-11.0 10^3/uL Red Blood Count 4.70 4.35-5.85 10^6/uL Hemoglobin 13.1 11.5-16.0 G/DL Hematocrit 38 35-52 % Mean Corpuscular Volume 81 80-99 FL Mean Corpuscular Hemoglobin 28 25-34 PG Mean Corpuscular Hemoglobin Concent 34 32-36 G/DL Red Cell Distribution Width 14.5 10.0-14.5 % Platelet Count 226 130-400 10^3/uL Mean Platelet Volume 11.8 H 7.4-10.4 FL Neutrophils (%) (Auto) 59 42-75 % Lymphocytes (%) (Auto) 33 12-44 % Monocytes (%) (Auto) 5 0-12 % Eosinophils (%) (Auto) 2 0-10 % Basophils (%) (Auto) 0 0-10 % Neutrophils # (Auto) 5.6 1.8-7.8 X 10^3 Lymphocytes # (Auto) 3.1 1.0-4.0 X 10^3 Monocytes # (Auto) 0.5 0.0-1.0 X 10^3 Eosinophils # (Auto) 0.2 0.0-0.3 10^3/uL Basophils # (Auto) 0.0 0.0-0.1 10^3/uL Sodium Level 138 135-145 MMOL/L Potassium Level 4.3 3.6-5.0 MMOL/L Chloride Level 106 98-107 MMOL/L Carbon Dioxide Level 21 21-32 MMOL/L Anion Gap 11 5-14 MMOL/L Blood Urea Nitrogen 10 7-18 MG/DL Creatinine 0.80 0.60-1.30 MG/DL Estimat Glomerular Filtration Rate > 60 BUN/Creatinine Ratio 13 Glucose Level 101 70-105 MG/DL Calcium Level 9.5 8.5-10.1 MG/DL Total Bilirubin 0.4 0.1-1.0 MG/DL Aspartate Amino Transf (AST/SGOT) 29 5-34 U/L Alanine Aminotransferase (ALT/SGPT) 36 0-55 U/L Alkaline Phosphatase 92 40-136 U/L Total Protein 7.3 6.4-8.2 GM/DL Albumin 4.1 3.2-4.5 GM/DL Amylase Level 83 25-125 U/L Lipase 64 8-78 U/L Urine Color YELLOW Urine Clarity VERY CLOUDY H Urine pH 6 5-9 Urine Specific [place] 1.015 L 1.016-1.022 Urine Protein 1+ H NEGATIVE Urine Glucose (UA) NEGATIVE NEGATIVE Urine Ketones NEGATIVE NEGATIVE Urine Nitrite NEGATIVE NEGATIVE Urine Bilirubin 1+ H NEGATIVE Urine Urobilinogen 1 NORMAL MG/DL Urine Leukocyte Esterase 3+ H NEGATIVE Urine RBC (Auto) 1+ H NEGATIVE Urine RBC NONE /HPF Urine WBC 10-25 H /HPF Urine Squamous Epithelial Cells 10-25 H /HPF Urine Crystals NONE /LPF Urine Bacteria MODERATE H /HPF Urine Casts NONE /LPF Urine Mucus NEGATIVE /LPF Urine Culture Indicated YES Micro Results Microbiology 04/01/18 Urine Culture - Preliminary, Resulted Sent To [facility] My Orders Orders - MURALI ORLANDO DO Saline Lock/Iv-Start (04/01/18 11:24) Amylase (04/01/18 11:24) Cbc With Automated Diff (04/01/18 11:24) Comprehensive Metabolic Panel (04/01/18 11:24) Lipase (04/01/18 11:24) Ua Culture If Indicated (04/01/18 11:24) Saline Lock/Iv-Start (04/01/18 11:24) Lactated Ringers (Lr 1000 Ml Iv Solution (04/01/18 11:24) Ct Abd/Pelvis Wo(Kidney Stone) (04/01/18 11:24) Acute Abd Series (04/01/18 11:24) Ketorolac Injection (Toradol Injection) (04/01/18 12:00) Promethazine Injection (Phenergan Injec (04/01/18 12:00) Diphenhydramine Injection (Benadryl Inje (04/01/18 12:00) Urine Culture (04/01/18 11:57) Ceftriaxone Injection (Rocephin Injectio (04/01/18 13:00) Medications Given in ED Current Medications Medications Dose Ordered Sig/Veronika Route Start Time Stop Time Status Last Admin Dose Admin Ceftriaxone Sodium 1000 mg/ Sodium Chloride 50 ml @ 100 mls/hr ONCE ONCE IV 04/01/18 13:00 04/01/18 13:29 DC 04/01/18 12:54 100 MLS/HR Diphenhydramine HCl 25 mg ONCE ONCE IVP 04/01/18 12:00 04/01/18 12:01 DC 04/01/18 12:18 25 MG Ketorolac Tromethamine 30 mg ONCE ONCE IVP 04/01/18 12:00 04/01/18 12:01 DC 04/01/18 12:18 30 MG Lactated Ringer's 1,000 ml @ 0 mls/hr Q0M ONCE IV 04/01/18 11:24 04/01/18 11:26 DC 04/01/18 11:44 999 MLS/HR Promethazine HCl 25 mg ONCE ONCE IVP 04/01/18 12:00 04/01/18 12:01 DC 04/01/18 12:18 25 MG Vital Signs/I&O 04/01/18 04/01/18 04/01/18 11:23 12:18 13:31 Temp 97.9 97.9 97.9 Pulse 83 80 Resp 20 20 B/P (MAP) 137/70 (92) 131/73 (92) Pulse Ox 96 97 O2 Delivery Room Air Blood Pressure Mean: 92 Progress Progress Note : Progress Note PAIN AND NAUSEA IMPROVED WITH MEDICATIONS PT AMBULATES UPRIGHT WITHOUT DIFFICULTY ON DISMISSAL Diagnostic Imaging Comments ACUTE ABDOMEN XRAYS--NO ACUTE PROCESS CT ABDOMEN/ PELVIS--FATTY INFILTRATION OF ZUÑIGA OF CECUM WITH MURAL THICKENING. NO OTHER INFLAMMATORY CHANGES. PER RADIOLOGIST REPORTS @ 1243 Reviewed: Reviewed by Me Departure Communication (Admissions) 1255--SPOKE WITH DR. CHÁVEZ. HE WILL SEE PT THIS WEEK IN OFFICE FOR FOLLOW UP Impression Primary Impression: UTI (urinary tract infection) Additional Impressions: Right lower quadrant abdominal pain WALL THICKENING OF CECUM Disposition: HOME, SELF-CARE Condition: Improved Departure-Patient Inst. Referrals: NICKY THOMPSON MD (PCP) Primary Care Physician VICTORIA CHÁVEZ MD Patient Instructions: Acute Abdomen (Belly Pain), Adult (DC), Microscopic Colitis, Urinary Tract Infection, Adult (DC) Add. Discharge Instructions: CLEAR LIQUIDS--WATER, BROTH, JELLO, GATORADE TOMORROW IF YOU ARE BETTER, ADD BRATS DIET TO CLEAR LIQUIDS--BANANAS, RICE, APPLESAUCE, TOAST, SALTINES FOLLOW UP WITH DR. CHÁVEZ THIS WEEK FOR FURTHER CARE All discharge instructions reviewed with patient and/or family. Voiced understanding. Scripts Ketorolac Tromethamine (Ketorolac Tromethamine) 10 Mg Tablet 10 MG PO Q6H for Pain, #15 TAB Prov: JOHANNY,MURALI K DO 04/01/18 Tramadol HCl (Ultram) 50 Mg Tablet 50 MG PO Q4H, #20 TAB Prov: JOHANNY,MURALI K DO 04/01/18 Promethazine HCl (Phenergan) 25 Mg Supp.rect 25 MG RC Q4H for Nausea/Vomiting, #10 SUPP.RECT Prov: JOHANNY,MURALI K DO 04/01/18 Metronidazole (Flagyl) 500 Mg Tablet 500 MG PO QID for FOR INFECTION, #40 TAB Prov: JOHANNY,MURALI K DO 04/01/18 Ciprofloxacin HCl (Cipro) 500 Mg Tablet 500 MG PO BID, #20 TAB Prov: JOHANNY,MURALI K DO 04/01/18 JOHANNYMURALI K DO Apr 01, 2018 13:01
[2018-04-01 13:31] VITALS: BP 131/73
== END 2018-04-01 13:31 | disposition home or self-care (01) ==
LOC: EDUNIT# 11:12 → ER 11:13
DX: N39.0 Urinary tract infection, site not specified (principal); R10.31 Right lower quadrant pain; J44.9 Chronic obstructive pulmonary disease, unspecified; G47.30 Sleep apnea, unspecified; E78.00 Pure hypercholesterolemia, unspecified; K21.9 Gastro-esophageal reflux disease without esophagitis; G25.81 Restless legs syndrome; E66.9 Obesity, unspecified; E11.9 Type 2 diabetes mellitus without complications; F41.9 Anxiety disorder, unspecified; F31.9 Bipolar disorder, unspecified; Z87.891 Personal history of nicotine dependence; Z90.710 Acquired absence of both cervix and uterus; Z88.0 Allergy status to penicillin; Z88.6 Allergy status to analgesic agent; Z91.041 Radiographic dye allergy status; Z79.51 Long term (current) use of inhaled steroids
CPT/HCPCS: 36415; 74022; 74176; 80053; 81000; 82150; 83690; 85025; 87088; 96361; 96365; 96375

== ENCOUNTER 2018-04-13 06:06 | Outpatient (CLI) | payer MEDICARE, MEDICAID ==
[~2018-04-13] VITALS: Ht 175.3 cm; Wt 124.7 kg
[~2018-04-13 06:06] MED LIST changes: +KETO10TA PO; +METR500T PO; +PROM25SU43 RC
[2018-04-13] MEDS ORDERED: ASPI-808 PO (13:24)
== END 2018-04-13 14:54 ==
LOC: PREOP 06:06
PROVIDERS: ATTEND Surgery
DX: Z01.818 Encounter for other preprocedural examination (principal)

== ENCOUNTER 2018-04-20 10:43 | Day surgery (SDC) | payer MEDICARE, MEDICAID ==
[~2018-04-20 10:43] MED LIST changes: +ASPI-808 PO
[2018-04-20 10:55] VITALS: BP 135/86
[2018-04-20] MEDS ORDERED: NS IV 500 ML 500 ML IV PRN (11:00)
[2018-04-20] MEDS ORDERED: NS IV 500 ML 500 ML ONE (11:05)
--- NOTE | 2018-04-20 12:54 | History & Physicial ---
History of Present Illness History of Present Illness Reason for visit/HPI To undergo colonoscopy regarding thickened right colon seen on a CT scan performed as part of ongoing evaluation for abdominal pain. Patient denies any rectal bleeding. Date of Admission 04/20/18 Date Seen by Provider: Apr 20, 2018 Time Seen by Provider: 12:52 I consulted on this patient on 04/20/18 12:49 Attending Physician Victoria Chávez MD Admitting Physician Li Espino MD Consult Allergies and Home Medications Allergies Coded Allergies: ondansetron (Verified Allergy, Mild, NAUSEA, 04/13/18) Iodinated Contrast- Oral and IV Dye (Unverified Allergy, Unknown, 04/13/18) penicillin (Verified Allergy, Unknown, HAS RECEIVED ROCEPHIN, 04/13/18) Home Medications Albuterol Sulfate 8.5 Gm Hfa.aer.ad, 2 PUFF IH Q4H PRN for WHEEZING, (Reported) Aspirin 325 Mg Tablet, 650 MG PO DAILY, (Reported) Fluoxetine HCl 40 Mg Capsule, 40 MG PO DAILY, (Reported) Fluticasone Propionate 9.9 Ml [place].susp, 1 SPRAY NS BID, (Reported) Fluticasone/Vilanterol 1 Each Blst.w.dev, 1 EACH IH DAILY, (Reported) Metformin HCl 1,000 Mg Tablet, 1,000 MG PO BID, (Reported) Omeprazole 40 Mg Capsule.dr, 40 MG PO DAILY, (Reported) Patient Home Medication List Home Medication List Reviewed: Yes Past Zrmjjcc-Bgzgdu-Yymycm Hx Patient Social History Marrital Status: Employed/Student: unemployed Alcohol Use: Denies Use Recreational Drug Use: No Smoking Status: Former Smoker Former Smoker, Quit: May 01, 2008 Type Used: Cigarettes 2nd Hand Smoke Exposure: No Recent Foreign Travel: No Contact w/other who traveled: No Recent Hopitalizations: No Recent Infectious Disease Expo: No Immunizations Up To Date Tetanus Booster (TDap): Unknown Pediatric: No Date of Pneumonia Vaccine: Feb 28, 2012 Date of Influenza Vaccine: Jul 16, 2017 Seasonal Allergies Seasonal Allergies: No Surgeries Yes Abdominal, Gallbladder, Hysterectomy, Oophorectomy, Orthopedic Respiratory Yes (CPAP) Currently Using CPAP: Yes Cardiovascular Yes High Cholesterol Neurological No Reproductive System Hx Reproductive Disorders: No Sexually Transmitted Disease: No HIV/AIDS: No 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 Genitourinary Yes Kidney Infection, Bladder Infection, UTI-Chronic Gastrointestinal Yes Gastroesophageal Reflux, Chronic Constipation, Chronic Diarrhea, Irritable Bowel Musculoskeletal Yes (RESTLESS LEG SYNDROME) Arthritis, Fibromyalgia, Chronic Back Pain Endocrine History of Endocrine Disorders: Yes (OBESITY) Endocrine Disorders: Diabetes, Non-Insulin dep HEENT History of HEENT Disorders: No Loss of Vision: Bilateral Hearing Impairment: Denies Cancer No Psychosocial History of Psychiatric Problem: Yes Behavioral Health Disorders: Anxiety, Bipolar Integumentary History of Skin or Integumenta: No Blood Transfusions History of Blood Disorders: No Adverse Reaction to a Blood Tr: No (N/A) Family Medical History Significant Family History: No Pertinent Family Hx Family Hx: Arthritis 19 MOTHER, Onset:Unknown Asthma 19 FATHER, Onset:Unknown Cataracts 19 MOTHER, Onset:Unknown Diabetes mellitus 19 MOTHER, Onset:Unknown FH: COPD (chronic obstructive pulmonary disease) 19 FATHER, Onset:Unknown Hypercholesterolemia 19 MOTHER MS (multiple sclerosis) G8 SISTER, Onset:Unknown Constitutional: no symptoms reported EENTM: no symptoms reported Respiratory: no symptoms reported Cardiovascular: no symptoms reported Gastrointestinal: see HPI Genitourinary: no symptoms reported Musculoskeletal: no symptoms reported Skin: no symptoms reported Psychiatric/Neurological: Anxiety Physical Exam Vital Signs Vital Signs - First Documented 04/20/18 10:55 Temp 98.0 Pulse 74 Resp 18 B/P (MAP) 135/86 (102) Pulse Ox 95 Capillary Refill : Height, Weight, BMI Height: 5'9.00" Weight: 275lbs. 0.0oz. 124.140139hi; 40.6 BMI Method:Stated General Appearance: No Apparent Distress Neck: Normal Inspection Respiratory: Lungs Clear Cardiovascular: Regular Rate, Rhythm Gastrointestinal: Non Tender, Soft Rectal: Deferred Extremity: Normal Inspection Neurologic/Psychiatric: Oriented x3 Assessment/Plan Assessment and Plan Lady with thickened right colon seen on a CT scan. For colonoscopy. Admission Diagnosis Admission Status: Other (Outpt Proc) VICTORIA CHÁVEZ MD Apr 20, 2018 12:54 pm
--- NOTE | 2018-04-20 12:54 | Conscious Sedation/ASA ---
Conscious Sedation Pre-Proced Time Reviewed: 12:54 ASA Class: 2 Airway Mallampati Classification: ([place] appropriate class) I. II. III, IV Lungs Heart ASA score ASA 1: a normal healthy patient ASA 2: a patient with a mild systemic disease (mid diabetes, controlled hypertension, obesity ASA 3: a patient with a severe systemic disease that limits activity (angina , COPD, prior Myocardial infarction) ASA 4: a patient with an incapacitating disease that is a constant threat to life (CHF, renal failure) ASA 5: a moribund patient not expected to survive 24 hrs. (ruptured aneurysm) ASA 6: a declared brain patient whose organs are being harvested. For emergent operations, add the letter E after the classification Grade 1 Sedation Plan: Discussed options with patient/fam Note The patient is an appropriate candidate to undergo the planned procedure, sedation, and anesthesia. The patient immediately re-assessed prior to indication. VICTORIA CHÁVEZ MD Apr 20, 2018 12:54 pm
[2018-04-20] MEDS ORDERED: MIDAZOLAM 2 MG/2 ML (VERSED) VIAL ONE ×5 (13:07→13:08)
[2018-04-20] MEDS ORDERED: fentaNYL INJECTION 100 MCG/2 ML AMP ONE ×2 (13:08)
[2018-04-20] MEDS: fentaNYL INJECTION 100 MCG/2 ML AMP IVP PRN ×4 (13:08→13:25)
[2018-04-20] MEDS: MIDAZOLAM 2 MG/2 ML (VERSED) VIAL IVP PRN ×5 (13:13→13:28)
--- NOTE | 2018-04-20 13:47 | Endo Procedure Record ---
Endo Procedure Report Date of Procedure Last Colonoscopy: Yes (2013) Apr 20, 2018 Surgeon (s) VICTORIA CHÁVEZ MD Post Procedure/Op Diagnosis normal Procedure Performed Colonoscopy to cecum Description of Procedure Anesthesia Type: Conscious Sedation Specimen(s) collected/removed none Description of the Procedure Indication for the procedure: This lady was found to have thickening of the right colon on a CT, performed as part of the evaluation for lower abdominal pain.Therefore, colonoscopy was felt to be reasonable. Informed consent was obtained after reviewing the procedure in detail. Description of the procedure: She was placed in left lateral decubitus position and her vital signs were monitored. Conscious sedation was achieved using Versed and fentanyl. Digital rectal examination was unremarkable. The colonoscope was then introduced into the rectum and advanced all the way up to the cecum. The scope was then withdrawn slowly and the mucosa examined in a systematic fashion. Findings: Very few, uncomplicated sigmoid diverticulae. She tolerated the procedure well and was taken back to the nursing area in a stable condition. Impression: Lower abdominal pain. CT showing thickening of the right colon. No colonoscopic abnormalities Copy Copies To 1: NICKY THOMPSON MD, XAVIER M MD Apr 20, 2018 1:47 pm
--- NOTE | 2018-04-20 13:50 | Discharge Inst-Simple/Standard ---
Discharge Inst-Standard Discharge Medications New, Converted or Re-Newed RX: Other Patient Instructions/Follow Up Plan of Care/Instructions/FU: Follow-up with her primary physician Activity as Tolerated: Yes Discharge Diet: No Restrictions VICTORIA CHÁVEZ MD Apr 20, 2018 1:50 pm
[2018-04-20 14:05] VITALS: BP 105/62
[2018-04-20 14:30] VITALS: BP 117/80
== END 2018-04-20 14:35 | disposition home or self-care (01) ==
LOC: ENDO 10:43
PROVIDERS: ATTEND Surgery
DX: K57.30 Diverticulosis of large intestine without perforation or abscess without bleeding (principal); R93.3 Abnormal findings on diagnostic imaging of other parts of digestive tract; Z87.891 Personal history of nicotine dependence; E78.00 Pure hypercholesterolemia, unspecified; K21.9 Gastro-esophageal reflux disease without esophagitis; K59.09 Other constipation; M79.1 Myalgia; G25.81 Restless legs syndrome; E11.9 Type 2 diabetes mellitus without complications; Z79.84 Long term (current) use of oral hypoglycemic drugs; Z79.82 Long term (current) use of aspirin; F41.9 Anxiety disorder, unspecified; F31.9 Bipolar disorder, unspecified; Z79.899 Other long term (current) drug therapy

== ENCOUNTER 2018-04-30 10:24 | Outpatient (CLI) | payer MEDICARE, MEDICAID ==
[~2018-04-30] VITALS: Ht 175.3 cm; Wt 125.8 kg
[2018-04-30 10:38] VITALS: BP 113/84
== END 2018-04-30 11:05 | disposition home or self-care (01) ==
LOC: PREOP 10:24
PROVIDERS: ATTEND Orthopaedic Surgery
DX: Z01.818 Encounter for other preprocedural examination (principal); M23.8X2 Other internal derangements of left knee
CPT/HCPCS: 87081

== ENCOUNTER 2018-05-06 10:02 | Day surgery (SDC) | payer MEDICARE, MEDICAID ==
--- NOTE | 2018-04-24 15:33 | HISTORY AND PHYSICAL ---
DATE OF SERVICE: ADMISSION HISTORY AND PHYSICAL DATE OF SURGERY: 05/06/2018 for outpatient surgery, left knee arthroscopy. HISTORY OF PRESENT ILLNESS: The patient is a 57-year-old female with complaints of left knee pain. She has undergone multiple arthroscopies in the past, but was doing well until she fell on her knee about a year ago and since then has had continued anterior knee pain, catching, locking and swelling. She reports no improvement with activity modifications and anti-inflammatories due to functional impairment and failure to improve with conservative measures, the patient elected to proceed with surgical intervention. REVIEW OF SYSTEMS: No chest pain or shortness of breath. No dysuria. PAST MEDICAL HISTORY: Diabetes, COPD, depression, hypercholesterolemia, back pain, sleep apnea, bipolar disorder, allergic rhinitis, cardiomegaly and morbid obesity. PAST SURGICAL HISTORY: Carpal and cubital tunnel releases, bilateral knee arthroscopies, left shoulder arthroscopy, cholecystectomy and hysterectomy. FAMILY HISTORY: Significant for lupus, multiple sclerosis, COPD, hypertension and diabetes. PRIMARY CARE PROVIDER: [facility]. MEDICATIONS: Lipitor, omeprazole, fluoxetine, metformin, Advair, Meloxicam, albuterol, ProAir, Breo Ellipta, ALLERGIES: PENICILLIN, DOXYCYCLINE and CONTRAST DYES. SOCIAL HISTORY: The patient is a former smoker and drinks alcohol rarely. IMAGING STUDIES: Radiographs reveal moderate medial patellofemoral joint space narrowing. PHYSICAL EXAMINATION: GENERAL: The patient is well developed, well-nourished, in no acute distress. HEENT: Normocephalic and atraumatic. Pupils are equal, round and reactive to light. Oropharynx is clear. NECK: Supple, no lymphadenopathy. LUNGS: Clear to auscultation bilaterally. HEART: Regular rate and rhythm. ABDOMEN: Soft, nontender and nondistended. EXTREMITIES: The left knee demonstrates moderate effusion. She has patellofemoral crepitus and pain with patellar loading. Range of motion is 0/2/130 with no varus or valgus laxity. Negative anterior and posterior drawer. Patellar loading reproduces her symptoms. She ambulates with an antalgic gait. IMPRESSION: Left knee chondromalacia. PLAN: Left knee arthroscopy and chondroplasty. Risks, benefits, options, ramification and recovery were discussed at length with the patient. She understands and wishes to proceed. Job ID: [id number] DocumentID: [id number] Dictated Date: 04/23/2018 11:39:32 Data Security Consultant Date: 04/23/2018 12:07:26 Dictated By: KISHA BALDWIN MD
[~2018-05-06] VITALS: Ht 175.3 cm; Wt 125.8 kg
--- NOTE | 2018-05-06 10:05 | Progress Note-Pre Operative ---
Pre-Operative Progress Note H&P Reviewed The H&P was reviewed, patient examined and no changes noted. Date Seen by Provider: May 06, 2018 Time Seen by Provider: 10:04 Date H&P Reviewed: May 06, 2018 Time H&P Reviewed: 10:04 Pre-Operative Diagnosis: left knee medial and lateral meniscus tears and chondromalacia KISHA BALDWIN MD May 06, 2018 10:05
--- NOTE | 2018-05-06 10:06 | Progress Note-Post Operative ---
Post-Operative Progess Note Surgeon (s)/[employer] (s) Surgeon KISHA BALDWIN MD [employer]: [employer] Pre-Operative Diagnosis left knee medial and lateral meniscus tears and chondromalacia Post-Operative Diagnosis left knee chondromalacia of the medial femoral condyle, medial tibial plateau, lateral femoral condyle and patella Procedure & Operative Findings Date of Procedure 05/06/18 Procedure Performed/Findings left knee arthroscopic chondroplasty of the medial and lateral femoral condyles , patella and medial tibial plateau Anesthesia Type GETA Estimated Blood Loss Estimated blood loss (mL): minimal Specimens/Packing Specimens Removed none Packing: none KISHA BALDWIN MD May 06, 2018 10:06
--- OUTSIDE RECORDS SUMMARY | 2018-05-06 10:08 | XMS REPORT ---
Author Author NICKY THOMPSON Organization [facility] Address [address] [place] [address] Care Team Providers Care Warranty Administrator Name Role Phone NICKY THOMPSON Unavailable PROBLEMS Type Condition ICD9-CM Code EXR85-NW Code Onset Dates Condition Status SNOMED Code Problem Cardiomegaly I51.7 Active 4551332 Problem Chronic bronchitis, unspecified chronic bronchitis type J42 Active 75023611 Problem BMI 40.0-44.9, adult Z68.41 Active 617542044 Problem 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.33 Active 45072728 Problem 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 Active 66245712 Problem Other chronic pain G89.29 Active 49819117 Problem Type 2 diabetes mellitus with hyperglycemia E11.65 Active [id number] ALLERGIES No Information ENCOUNTERS Encounter Location Date Diagnosis [place] [address] [id number] [place] [address]16 Apr, [place] [id number] [place] [address] 85420- 6769 Mar, Medicare annual wellness visit, initial Z00.00 ; BMI 40.0- 44.9, adult Z68.41 ; Type 2 diabetes mellitus with hyperglycemia E11.65 ; Cardiomegaly I51.7 ; 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.33 ; Chronic bronchitis, unspecified chronic bronchitis type J42 ; Other chronic pain G89.29 ; Dysuria R30.0 and Encounter for immunization Z23 [place] [id number] [place] [address] 30599- 2034 Mar, [place] [id number] [place] [address] 69506- 1622 Dec, [place] [id number] [place] [address] 29862- 4573 Dec, Type 2 diabetes mellitus with hyperglycemia E11.65 ; Non- insulin dependent type 2 diabetes mellitus E11.9 ; BMI 40.0-44.9, adult Z68.41 ; Chronic bronchitis, unspecified chronic bronchitis type J42 ; Muscle cramp R25.2 and Incisional hernia, without obstruction or gangrene K43.2 [place] [address] [address] Nov, [facility] [address] [address] Nov, Abdominal pain, unspecified abdominal location R10.9 ; Constipation, unspecified constipation type K59.00 and BMI 40.0-44.9, adult Z68.41 [place] [address] [address]- 5989 Nov, [place] [address] [address]- [address] Oct, [place] [address] 48[address]- 3882 Oct, [place] [address] 100[address]- [address] 05 Oct, 2017 Breast pain, left N64.4 and BMI 40.0-44.9, adult Z68.41 [facility] [address] [address] Sep, BMI 40.0-44.9, adult Z68.41 and Multiple wounds of skin R23.8 [facility] [address] [address] Sep, Body aches R52 ; Dysuria R30.0 and Viral URI J06.[address] [address] Aug, Nausea R11.0 ; Other viral agents as the cause of diseases classified elsewhere B97.89 and Acute upper respiratory infection, unspecified J06.9 [place] [id number] [place] [address] 53094- 4151 Aug, [place] [address] 9[address] Aug, [facility] [place] [id number] [place] [address]01 [address] Jul, Sore throat J02.9 and BMI 40.0-44.9, adult Z68.41 [place] [id number] [place] [address] 13392- 6670 Jun, Herniation through surgical site K43.2 ; Leg numbness R20.0 ; Acute pain of left knee M25.562 ; Fall, initial encounter W19.XXXA ; Non- insulin dependent type 2 diabetes mellitus E11.9 ; Morbid obesity, unspecified obesity type E66.01 ; Other chronic pain G89.29 and Unspecified abdominal pain R10.9 [facility] [place] [id number] [place] [address] 89984 -6466 Jun, Muscle strain of left shoulder, initial encounter S46.912A [place] [id number] [place] [address] 28639- 1097 May, [place] [id number] [place] [address] 98680- [address] May, [facility] [place] [id number] [place] [address] 29533 [address]0261 05 May, 2017 Acute pain of right knee M25.561 and Right knee sprain S83.91XA [place] [id number] [place] [address] 31666- 4185 Apr, [place] [id number] [place] [address] 60117- 9049 Apr, [place] [id number] [place] [address] 38121- 6374 Apr, 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 ; Morbid obesity, unspecified obesity type E66.01 ; Acute exacerbation of chronic obstructive pulmonary disease (COPD) J44.1 ; Pain in right knee M25.561 ; Screening for breast cancer Z12.31 and Generalized anxiety disorder F41.1 [place] [id number] [place] [address] 87035- 0783 Mar, [facility] [place] [id number] [place] [address] 81617 -[address]47 Mar, Dysuria R30.0 and Acute cystitis without hematuria N30.00 [facility] [place] [id number] [place] [address] Feb, [facility] [address] [address] Feb, Muscle cramps R25.2 and Seasonal allergic rhinitis, unspecified allergic rhinitis trigger J30.2 [place] [address] [address]38- [address] January, [place] [id number] [place] [address] 32658- 9246 January, Generalized anxiety disorder F41.1 [facility] [place] [id number] [place] [address] 01898 -8433 January, Acute exacerbation of chronic obstructive pulmonary disease (COPD) J44.1 [facility] [place] [id number] [place] [address] 41031 [address]28[address] Dec, Cramps, muscle, general R25.2 [place] [id number] [place] [address] 15717- 7007 Dec, [address] [address] Nov, Type 2 diabetes mellitus with hyperglycemia E11.65 and Non- insulin dependent type 2 diabetes mellitus E11.9 [place] [id number] [place] [address] 91898- 0591 Oct, Generalized anxiety disorder F41.1 [facility] [id number] [place] [address] 98[address] Oct, Vaginal candidiasis B37.3 [place] [id number] [place] [address] 99142- 8582 Oct, Right upper quadrant abdominal pain R10.11 and S/P cholecystectomy Z90.49 [place] [address] 56523- [address] Sep, Sore throat J02.9 and Right lower quadrant pain R10.31 [place] [address] 12942- [address]84 Sep, Generalized anxiety disorder F41.1 [place] [address] 09176- 5991 Sep, [place] [address] 85203- 2150 Sep, [place] [id number] [place] [address] 21288- 9644 Sep, Chest pain, unspecified type R07.9 ; Left lower quadrant pain R10.32 and Other acute postprocedural pain G89.18 [place] [id number] [place] [address] 81124- 1528 Sep, Fever in other diseases R50.81 ; Acute non-recurrent maxillary sinusitis J01.00 and Cough R05 [place] [id number] [place] [address] 23931- 8841 Sep, [facility] [address] [id number] [place] [address] 06073 -2588 Sep, Dysuria R30.0 ; Sore throat J02.9 ; Chest pain, unspecified type R07.9 and Female genital lesion N94.9 [place] [id number] [place] [address] 57280- 0595 27 Dec, 2016 Drug-induced constipation K59.03 ; Left arm pain M79.602 and S/P cholecystectomy Z90.49 [facility] [id number] [place] [address] 50490 -3392 17 Aug, 2016 Sore throat J02.9 and Strep pharyngitis J02.0 [facility] [address] 87[address]- [address] 14 Aug, 2016 [place] [address] 50820- 5058 Aug, [place] [address] 91601- 1517 Aug, [place] [address] 35613- 9122 Jul, [place] [address] 25989- 0685 Jul, Type 2 diabetes mellitus with hyperglycemia E11.65 ; 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.33 ; Morbid obesity, unspecified obesity type E66.01 and Right upper quadrant abdominal pain R10.11 [facility] [id number] [place] [address] 12419 -4479 Jul, Dysuria R30.0 ; Shortness of breath R06.02 ; Cardiomegaly I51.7 and COPD exacerbation J44.1 [place] [id number] [place] [address] 03828- 1743 Jul, Bipolar disorder, unspecified F31.9 and Generalized anxiety disorder F41.1 [place] [id number] [place] [address] 03194- 0676 Jun, [place] [address] 02795- 8757 Jun, Sleep apnea, unspecified sleep apnea type G47.30 [place] [address] 47355- 6664 Jun, Bipolar disorder, unspecified F31.9 and Generalized anxiety disorder F41.1 [place] [address] [address] 28 May, 2015 Right lower quadrant abdominal pain 789.03 ; Diabetes mellitus type 2, uncontrolled 250.02 ; Bipolar disorder 296.80 ; COPD (chronic obstructive pulmonary disease) 496 ; Bug bite without infection 919.4 and Left upper quadrant pain 789.02 [place] [address] [address] 16 May, 2015 Right lower quadrant abdominal pain 789.03 [place] [id number] [place] [address] 13413- 5230 10 May, 2015 [place] [id number] [place] [address] 43641- 7280 Apr, [place] [id number] [place] [address] 01902- 3135 Apr, Skin infection 686.9 [place] [id number] [place] [address] 29326- 3984 Apr, Diabetes mellitus type 2, uncontrolled 250.02 ; Bipolar disorder 296.80 ; Hyperlipidemia 272.4 ; COPD (chronic obstructive pulmonary disease) 496 ; Sleep apnea in adult 327.23 and Routine adult health maintenance V70.0 [place] [id number] [place] [address] 83311- 7145 Apr, Bipolar disorder 296.80 IMMUNIZATIONS No Known Immunizations SOCIAL HISTORY Never Assessed REASON FOR VISIT Lab results PLAN OF CARE VITAL SIGNS MEDICATIONS Unknown Medications RESULTS No Results PROCEDURES No Known procedures INSTRUCTIONS MEDICATIONS ADMINISTERED No Known Medications MEDICAL (GENERAL) HISTORY Type Description Date Medical [...]
--- OUTSIDE RECORDS SUMMARY | 2018-05-06 10:09 | XMS REPORT ---
Author Author SLY HARRIS [facility] Address [address] [place] [address] Care Team Providers Care Lumber Puller Name Role Phone SLY HARRIS Unavailable PROBLEMS Type Condition ICD9-CM Code SUB89-XQ Code Onset Dates Condition Status SNOMED Code Problem Cardiomegaly I51.7 Active 8789919 Problem Chronic bronchitis, unspecified chronic bronchitis type J42 Active 42998455 Problem BMI 40.0-44.9, adult Z68.41 Active 415403204 Problem 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.33 Active 34103530 Problem 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 Active 81110656 Problem Other chronic pain G89.29 Active 10543587 Problem Type 2 diabetes mellitus with hyperglycemia E11.65 Active [id number] ALLERGIES Substance Reaction Event Type Date Status Penicillin V Potassium Unknown Drug Allergy Nov, Active Doxycycline Hyclate hives Drug Allergy Nov, Active IV contrast dye Unknown Non Drug Allergy Nov, Active ENCOUNTERS Encounter Location Date Diagnosis [place] [address] [place] [id number] [place] [address] 88406- 1298 16 Apr, 2018 [place] [address] 15786[address] 9819 10 Mar, 2018 Medicare annual wellness visit, initial Z00.00 ; BMI 40.0- 44.9, adult Z68.41 ; Type 2 diabetes mellitus with hyperglycemia E11.65 ; Cardiomegaly I51.7 ; 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.33 ; Chronic bronchitis, unspecified chronic bronchitis type J42 ; Other chronic pain G89.29 ; Dysuria R30.0 and Encounter for immunization Z23 [place] [address] [id number] [place] [address] 81744- 0413 Mar, [place] [address] [place] [address] 9758 Dec, [place] [address] 88694- 1145 Dec, Type 2 diabetes mellitus with hyperglycemia E11.65 ; Non- insulin dependent type 2 diabetes mellitus E11.9 ; BMI 40.0-44.9, adult Z68.41 ; Chronic bronchitis, unspecified chronic bronchitis type J42 ; Muscle cramp R25.2 and Incisional hernia, without obstruction or gangrene K43.2 [place] [address] 35147- 6704 Nov, [facility] [place] [address] 5101[address]8711 Nov, Abdominal pain, unspecified abdominal location R10.9 ; Constipation, unspecified constipation type K59.00 and BMI 40.0-44.9, adult Z68.41 [place] [address] 74027- 5710 Nov, [place] [address] 52046- 8729 Oct, [place] [address] 79488- 2822 Oct, [place] [address] 25814- 5942 05 Oct, 2017 Breast pain, left N64.4 and BMI 40.0-44.9, adult Z68.41 [facility] [place] [address] [address] [id number] [place] [address] 08422 -6262 Sep, BMI 40.0-44.9, adult Z68.41 and Multiple wounds of skin R23.8 [facility] [place] [address] 96691 -3084 10 Sep, 2017 Body aches R52 ; Dysuria R30.0 and Viral URI J06.9 [place] [address] 16318- 0881 Aug, Nausea R11.0 ; Other viral agents as the cause of diseases classified elsewhere B97.89 and Acute upper respiratory infection, unspecified J06.9 [place] [address] [place] [id number] [place] [address] 68222- 5119 Aug, [place] [address] 73049- 0798 Aug, [facility] [place] [address] 61190 [address]0138 Jul, Sore throat J02.9 and BMI 40.0-44.9, adult Z68.[address] 25670- 5497 Jun, Herniation through surgical site K43.2 ; Leg numbness R20.0 ; Acute pain of left knee M25.562 ; Fall, initial encounter W19.XXXA ; Non- insulin dependent type 2 diabetes mellitus E11.9 ; Morbid obesity, unspecified obesity type E66.01 ; Other chronic pain G89.29 and Unspecified abdominal pain R10.9 [facility] [address] 97[address]9698 Jun, Muscle strain of left shoulder, initial encounter S46.912A [place] [address] [id number] [place] [address] 53841- 3432 May, [place] [address] 38145- 4594 May, [facility] [place] [address] [address] [id number] [place] [address] 52652 -2708 May, Acute pain of right knee M25.561 and Right knee sprain S83.91XA [place] [address] [place] [id number] [place] [address] 88690- 6498 Apr, [place] [address] 48976- 5784 Apr, [place] [address] [place] [id number] [place] [address] 66760- 1179 Apr, 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 ; Morbid obesity, unspecified obesity type E66.01 ; Acute exacerbation of chronic obstructive pulmonary disease (COPD) J44.1 ; Pain in right knee M25.561 ; Screening for breast cancer Z12.31 and Generalized anxiety disorder F41.1 [place] [id number] [place] [address] 87682- 9591 Mar, [facility] [place] [id number] [place] [address] 43432 -7865 Mar, Dysuria R30.0 and Acute cystitis without hematuria N30.00 [facility] [place] [id number] [place] [address] 44103 -3263 Feb, [facility] [address] 78926 -5123 Feb, Muscle cramps R25.2 and Seasonal allergic rhinitis, unspecified allergic rhinitis trigger J30.2 [place] [id number] [place] [address] 34498- 1387 January, [place] [id number] [place] [address] 02042- 6080 January, Generalized anxiety disorder F41.1 [facility] [place] [id number] [place] [address] 73694 -3962 January, Acute exacerbation of chronic obstructive pulmonary disease (COPD) J44.1 [facility] [place] [id number] [place] [address] 10035 -8543 Dec, Cramps, muscle, general R25.2 [place] [id number] [place] [address] 82622- 0888 Dec, [place] [id number] [place] [address] 97009- 4946 Nov, Type 2 diabetes mellitus with hyperglycemia E11.65 and Non- insulin dependent type 2 diabetes mellitus E11.9 [place] [address] [place] [id number] [place] [address] 82152- 2205 28 Oct, 2016 Generalized anxiety disorder F41.1 [facility] [address] 49870 [address]7745 20 Oct, 2016 Vaginal candidiasis B37.3 [place] [address] 43301- 0859 09 Oct, 2016 Right upper quadrant abdominal pain R10.11 and S/P cholecystectomy Z90.49 [place] [address] 43496- 7712 Sep, Sore throat J02.9 and Right lower quadrant pain R10.31 [place] [address] 28609- 3306 Sep, Generalized anxiety disorder F41.1 [place] [address] 93005- 5637 Sep, [place] [address] 92201- 2625 Sep, [place] [address] 25116- 7185 Sep, Chest pain, unspecified type R07.9 ; Left lower quadrant pain R10.32 and Other acute postprocedural pain G89.18 [place] [address] [place] [id number] [place] [address] 35549- 1772 Sep, Fever in other diseases R50.81 ; Acute non-recurrent maxillary sinusitis J01.00 and Cough R05 [place] [address] 95999- 1614 Sep, [facility] [address] 38[address] -7287 Sep, Dysuria R30.0 ; Sore throat J02.9 ; Chest pain, unspecified type R07.9 and Female genital lesion N94.9 [facility] [address] [place] [id number] [place] [address] 48222- 4640 27 Aug, 2016 Drug-induced constipation K59.03 ; Left arm pain M79.602 and S/P cholecystectomy Z90.49 [facility] [address] [place] [id number] [place] [address] 79459 -0465 17 Aug, 2016 Sore throat J02.9 and Strep pharyngitis J02.0 [facility] [address] [place] [id number] [place] [address] 03326- 4794 14 Aug, 2016 [place] [address] 05471- 9203 Aug, [place] [address] [place] [id number] [place] [address] 27537- 9196 Aug, [place] [address] 32251- 0419 Jul, [facility] [address] [place] [id number] [place] [address] 55580- 5710 28 Jul, 2016 Type 2 diabetes mellitus with hyperglycemia E11.65 ; 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.33 ; Morbid obesity, unspecified obesity type E66.01 and Right upper quadrant abdominal pain R10.11 [facility] [address] [place] [id number] [place] [address] 29848 -9675 14 Jul, 2016 Dysuria R30.0 ; Shortness of breath R06.02 ; Cardiomegaly I51.7 and COPD exacerbation J44.1 [place] [address] [place] [id number] [place] [address] 16442- 1180 Jul, Bipolar disorder, unspecified F31.9 and Generalized anxiety disorder F41.1 [place] [address] [place] [id number] [place] [address] 15961- 5431 Jun, [place] [address] [place] [id number] [place] [address] 81644- 9670 Jun, Sleep apnea, unspecified sleep apnea type G47.30 [place] [address] [place] [id number] [place] [address] 66694- 3449 02 Jun, 2015 Bipolar disorder, unspecified F31.9 and Generalized anxiety disorder F41.1 [place] [address] [place] [id number] [place] [address] 36488- 4041 28 May, 2015 Right lower quadrant abdominal pain 789.03 ; Diabetes mellitus type 2, uncontrolled 250.02 ; Bipolar disorder 296.80 ; COPD (chronic obstructive pulmonary disease) 496 ; Bug bite without infection 919.4 and Left upper quadrant pain 789.02 [place] [address] [place] [id number] [place] [address] 34719- 6013 16 May, 2015 Right lower quadrant abdominal pain 789.03 [place] [address] [place] [id number] [place] [address] 48303- 1087 10 May, 2015 [place] [address] [place] [id number] [place] [address] 94775- 9032 Apr, [place] [address] [place] [id number] [place] [address] 79620- 3663 Apr, Skin infection 686.9 [place] [address] [place] [id number] [place] [address] 83286- 1054 11 Apr, 2015 Diabetes mellitus type 2, uncontrolled 250.02 ; Bipolar disorder 296.80 ; Hyperlipidemia 272.4 ; COPD (chronic obstructive pulmonary disease) 496 ; Sleep apnea in adult 327.23 and Routine adult health maintenance V70.0 [place] [address] [place] [id number] [place] [address] 73928- 5729 Apr, Bipolar disorder 296.80 IMMUNIZATIONS No Known Immunizations SOCIAL HISTORY Never Assessed REASON FOR VISIT stomach spasms causing pain radiating to back and lower abdomen x 1 month PLAN OF CARE Activity Details Follow Up prn Reason: VITAL SIGNS Height 69 in 2017-12-17 Weight 277.7 lbs 2017-12-17 Temperature 97.9 degrees Fahrenheit 2017-12-17 Heart Rate 96 bpm 2017-12-17 Respiratory Rate 24 2017-12-17 BMI 41.00 kg/m2 2017-12-17 Blood pressure systolic 128 mmHg 2017-12-17 Blood pressure diastolic 76 mmHg 2017-12-17 MEDICATIONS Medication Instructions Dosage Frequency Start Date End Date Duration Status Glucocard Expression Test - In Vitro 2 times a day as directed 12h Apr, Not-Taking Breo Ellipta 100-25 MCG/INH Inhalation Once a day 1 puff 24h Active Albuterol Sulfate (2.5 MG/3ML) 0.083% Inhalation Three times a day 3 ml 8h Active Magnesium Citrate 1.745 GM/30ML Orally an hour apart 75 ml now, 75 ml in 1 hour Nov, Nov, 1 days Active Prozac 40 mg Orally Once a day 1 capsule in the morning 24h 90 days Active Omeprazole 40 mg Orally Once a day 1 capsule 24h Active Lipitor 10 mg Orally Once a day 1 tablet 24h Active Albuterol Sulfate 108 (90 Base) MCG/ACT Inhalation every 4 hrs 2 puff as needed 4h Active Flonase Allergy Relief 50 MCG/ACT Nasally Once a day 1 spray in each nostril 24h Active Metformin HCl 1000 MG Orally twice a day 1 tablet 12h 30 days Active RESULTS Name Result Date Reference Range GLUCOSE FINGERSTICK (IN HOUSE) 2017-12-17 GLU FINGERSTICK 134 PC Lot # [id number] Exp date 04/04/2018 UA LONG DIP (IN HOUSE) 2017-12-17 Lot # [id number] Exp date 07/29/2018 Clarity slightly cloudy Color dark yellow Odor yes GLU negative ZANDER 1+ KET trace SG 1.030 BLO negative pH 5.5 Protein negative URO 0.2 NIT negative GUSTAVO negative Lot # Exp date Xray : Abdomen 2v (Upright and KUB) - IN HOUSE 2017-12-17 PROCEDURES Procedure Date Ordered Result Body Site GLUCOSE BLOOD TEST December 17, 2017 URINALYSIS, AUTO, W/O SCOPE December 17, 2017 [facility] VISIT ESTABLISHED PATIENT December 17, 2017 X-RAY EXAM ABDOMEN 2 VIEWS December 17, 2017 INSTRUCTIONS MEDICATIONS ADMINISTERED No Known Medications MEDICAL [...]
--- OUTSIDE RECORDS SUMMARY | 2018-05-06 10:09 | XMS REPORT ---
Author Author NICKY THOMPSON Organization [facility] Address [address] [place] [address] Care Team Providers Care Marine Painter Name Role Phone NICKY THOMPSON Unavailable PROBLEMS Type Condition ICD9-CM Code [id number] Code Onset Dates Condition Status SNOMED Code Problem Cardiomegaly I51.7 Active 6631370 Problem Chronic bronchitis, unspecified chronic bronchitis type J42 Active 17009540 Problem BMI 40.0-44.9, adult Z68.41 Active 561278974 Problem 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.33 Active 63790277 Problem 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 Active 52232007 Problem Other chronic pain G89.29 Active 72903499 Problem Type 2 diabetes mellitus with hyperglycemia E11.65 Active [id number] ALLERGIES No Information ENCOUNTERS Encounter Location Date Diagnosis [place] [address] [place] [id number] [place] [address] 27791- 9238 Apr, [place] [address] [place] [id number] [place] [address] 80276- 2611 Mar, Medicare annual wellness visit, initial Z00.00 ; BMI 40.0- 44.9, adult Z68.41 ; Type 2 diabetes mellitus with hyperglycemia E11.65 ; Cardiomegaly I51.7 ; 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.33 ; Chronic bronchitis, unspecified chronic bronchitis type J42 ; Other chronic pain G89.29 ; Dysuria R30.0 and Encounter for immunization Z23 [place] [address] [place] [id number] [place] [address] 37740- 9202 Mar, [place] [address] [place] [id number] [place] [address] 24515- 6748 Dec, [place] [address] [place] [id number] [place] [address] 24671- 8578 Dec, Type 2 diabetes mellitus with hyperglycemia E11.65 ; Non- insulin dependent type 2 diabetes mellitus E11.9 ; BMI 40.0-44.9, adult Z68.41 ; Chronic bronchitis, unspecified chronic bronchitis type J42 ; Muscle cramp R25.2 and Incisional hernia, without obstruction or gangrene K43.2 [place] [address] 29347- 5188 Nov, [facility] [address] 47392 -9456 Nov, Abdominal pain, unspecified abdominal location R10.9 ; Constipation, unspecified constipation type K59.00 and BMI 40.0-44.9, adult Z68.41 [place] [address] 19246- 2818 Nov, [place] [address] 85557- 4244 Oct, [place] [address] 35253- 3971 Oct, [place] [address] 83048- 1608 05 Oct, 2017 Breast pain, left N64.4 and BMI 40.0-44.9, adult Z68.41 [facility] [address] 45765 -2217 Sep, BMI 40.0-44.9, adult Z68.41 and Multiple wounds of skin R23.8 [facility] [address] 04442 -0319 Sep, Body aches R52 ; Dysuria R30.0 and Viral URI J06.[address] 42681- 4290 Aug, Nausea R11.0 ; Other viral agents as the cause of diseases classified elsewhere B97.89 and Acute upper respiratory infection, unspecified J06.9 [place] [address] [place] [address] 94393- 2088 Aug, [place] [address] 66917- 6552 Aug, [facility] [place] [address] [place] [id number] [place] [address] 24383 -0523 Jul, Sore throat J02.9 and BMI 40.0-44.9, adult Z68.41 [place] [address] [place] [id number] [place] [address] 85819- 4513 Jun, Herniation through surgical site K43.2 ; Leg numbness R20.0 ; Acute pain of left knee M25.562 ; Fall, initial encounter W19.XXXA ; Non- insulin dependent type 2 diabetes mellitus E11.9 ; Morbid obesity, unspecified obesity type E66.01 ; Other chronic pain G89.29 and Unspecified abdominal pain R10.9 [facility] [place] [address] [place] [id number] [place] [address] 94411 -6265 Jun, Muscle strain of left shoulder, initial encounter S46.912A [place] [address] [place] [id number] [place] [address] 59630- 8750 May, [place] [address] [place] [id number] [place] [address] 86456- 6512 May, [facility] [place] [address] [place] [id number] [place] [address] 43824 -4410 05 May, 2017 Acute pain of right knee M25.561 and Right knee sprain S83.91XA [place] [address] [place] [id number] [place] [address] 06177- 5851 Apr, [place] [address] [place] [id number] [place] [address] 65137- 3605 Apr, [place] [address] [place] [id number] [place] [address] 05499- 9649 Apr, 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 ; Morbid obesity, unspecified obesity type E66.01 ; Acute exacerbation of chronic obstructive pulmonary disease (COPD) J44.1 ; Pain in right knee M25.561 ; Screening for breast cancer Z12.31 and Generalized anxiety disorder F41.1 [place] [address] [place] [id number] [place] [address] 42574- 5092 Mar, [facility] [place] [id number] [place] [address] 69078 -7153 Mar, Dysuria R30.0 and Acute cystitis without hematuria N30.00 [facility] [place] [id number] [place] [address] 45135 -8169 Feb, [facility] [address] 96833 -1834 Feb, Muscle cramps R25.2 and Seasonal allergic rhinitis, unspecified allergic rhinitis trigger J30.2 [place] [address] 61037- 8263 January, [place] [address] [place] [id number] [place] [address] 37412- 1024 January, Generalized anxiety disorder F41.1 [facility] [place] [id number] [place] [address] 11522 -6168 January, Acute exacerbation of chronic obstructive pulmonary disease (COPD) J44.1 [facility] [place] [id number] [place] [address] 99741 -9361 Dec, Cramps, muscle, general R25.2 [place] [address] [place] [id number] [place] [address] 38728- 8538 Dec, [address] 48369- 4783 Nov, Type 2 diabetes mellitus with hyperglycemia E11.65 and Non- insulin dependent type 2 diabetes mellitus E11.9 [place] [id number] [place] [address] 72165- 0864 Oct, Generalized anxiety disorder F41.1 [facility] [address] [place] [id number] [place] [address] 37699 -1739 Oct, Vaginal candidiasis B37.3 [place] [address] [place] [id number] [place] [address] 18230- 7205 Oct, Right upper quadrant abdominal pain R10.11 and S/P cholecystectomy Z90.49 [place] [address] 74491- 3620 Sep, Sore throat J02.9 and Right lower quadrant pain R10.31 [place] [address] 86857- 3902 Sep, Generalized anxiety disorder F41.1 [place] [address] 72613- 8671 Sep, [place] [address] 29567- 9415 Sep, [place] [address] [place] [id number] [place] [address] 66003- 3496 Sep, Chest pain, unspecified type R07.9 ; Left lower quadrant pain R10.32 and Other acute postprocedural pain G89.18 [place] [address] [place] [id number] [place] [address] 36012- 2394 Sep, Fever in other diseases R50.81 ; Acute non-recurrent maxillary sinusitis J01.00 and Cough R05 [place] [address] [place] [id number] [place] [address] 32673- 4041 Sep, [facility] [address] [place] [id number] [place] [address] 29324 -9750 Sep, Dysuria R30.0 ; Sore throat J02.9 ; Chest pain, unspecified type R07.9 and Female genital lesion N94.9 [place] [address] [place] [id number] [place] [address] 52853- 1870 27 Dec, 2016 Drug-induced constipation K59.03 ; Left arm pain M79.602 and S/P cholecystectomy Z90.49 [facility] IN [facility] [address] [place] [id number] [place] [address] 89206 -6399 17 Aug, 2016 Sore throat J02.9 and Strep pharyngitis J02.0 [facility] [address] 22270- 1047 14 Aug, 2016 [place] [address] 24375- 0330 Aug, [place] [address] 07440- 6766 Aug, [place] [address] 91627- 1072 Jul, [place] [address] 81943- 6265 Jul, Type 2 diabetes mellitus with hyperglycemia E11.65 ; 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.33 ; Morbid obesity, unspecified obesity type E66.01 and Right upper quadrant abdominal pain R10.11 [facility] [address] [place] [id number] [place] [address] 14740 -1822 Jul, Dysuria R30.0 ; Shortness of breath R06.02 ; Cardiomegaly I51.7 and COPD exacerbation J44.1 [place] [address] [place] [id number] [place] [address] 29669- 9107 Jul, Bipolar disorder, unspecified F31.9 and Generalized anxiety disorder F41.1 [place] [address] [place] [id number] [place] [address] 04792- 5255 Jun, [place] [address] 51643- 4085 Jun, Sleep apnea, unspecified sleep apnea type G47.30 [place] [address] 30197- 2992 Jun, Bipolar disorder, unspecified F31.9 and Generalized anxiety disorder F41.1 [place] [address] [address] 28 May, 2015 Right lower quadrant abdominal pain 789.03 ; Diabetes mellitus type 2, uncontrolled 250.02 ; Bipolar disorder 296.80 ; COPD (chronic obstructive pulmonary disease) 496 ; Bug bite without infection 919.4 and Left upper quadrant pain 789.02 [place] [address] [place] [id number] [address]- 4084 16 May, 2015 Right lower quadrant abdominal pain 789.03 [place] [address] [place] [id number] [place] [address] 36568- 0945 10 May, 2015 [place] [address] [place] [id number] [place] [address] 30293- 4788 Apr, [place] [address] [place] [id number] [place] [address] 40090- 1398 Apr, Skin infection 686.9 [place] [address] [place] [id number] [place] [address] 08573- 0191 Apr, Diabetes mellitus type 2, uncontrolled 250.02 ; Bipolar disorder 296.80 ; Hyperlipidemia 272.4 ; COPD (chronic obstructive pulmonary disease) 496 ; Sleep apnea in adult 327.23 and Routine adult health maintenance V70.0 [place] [id number] [place] [address] 93205- 0184 Apr, Bipolar disorder 296.80 IMMUNIZATIONS No Known Immunizations SOCIAL HISTORY Never Assessed REASON FOR VISIT Follow Up Phone Call PLAN OF CARE VITAL SIGNS MEDICATIONS Unknown [...]
--- OUTSIDE RECORDS SUMMARY | 2018-05-06 10:09 | XMS REPORT ---
Author Author NICKY THOMPSON Organization [facility], [place] Address [address] [place] [address] Care Team Providers Care Psychology Physician Name Role Phone NICKY THOMPSON Unavailable PROBLEMS Type Condition ICD9-CM Code FSO77-OT Code Onset Dates Condition Status SNOMED Code Problem Cardiomegaly I51.7 Active 1872036 Problem Chronic bronchitis, unspecified chronic bronchitis type J42 Active 22784249 Problem BMI 40.0-44.9, adult Z68.41 Active 810004229 Problem 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.33 Active 74212181 Problem 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 Active 91306061 Problem Other chronic pain G89.29 Active 21853024 Problem Type 2 diabetes mellitus with hyperglycemia E11.65 Active [id number] ALLERGIES Substance Reaction Event Type Date Status Penicillin V Potassium Unknown Drug Allergy Dec, Active Doxycycline Hyclate hives Drug Allergy Dec, Active IV contrast dye Unknown Non Drug Allergy Dec, Active ENCOUNTERS Encounter Location Date Diagnosis [place] [id number] [place] [id number] [place] [address] 46488- 9562 16 Apr, 2018 [place] [address] [place] [id number] [place] [address] 63498- 8275 10 Mar, 2018 Medicare annual wellness visit, initial Z00.00 ; BMI 40.0- 44.9, adult Z68.41 ; Type 2 diabetes mellitus with hyperglycemia E11.65 ; Cardiomegaly I51.7 ; 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.33 ; Chronic bronchitis, unspecified chronic bronchitis type J42 ; Other chronic pain G89.29 ; Dysuria R30.0 and Encounter for immunization Z23 [place] [address] [place] [id number] [place] [address] 26044- 0741 Mar, [place] [address] 77197- 9687 Dec, [place] [address] 88904- 7063 Dec, Type 2 diabetes mellitus with hyperglycemia E11.65 ; Non- insulin dependent type 2 diabetes mellitus E11.9 ; BMI 40.0-44.9, adult Z68.41 ; Chronic bronchitis, unspecified chronic bronchitis type J42 ; Muscle cramp R25.2 and Incisional hernia, without obstruction or gangrene K43.2 [place] [address] 62075- 0539 Nov, [facility] WALK IN [place] [address] 71756 -9900 Nov, Abdominal pain, unspecified abdominal location R10.9 ; Constipation, unspecified constipation type K59.00 and BMI 40.0-44.9, adult Z68.41 [place] [address] 33460- 2341 Nov, [place] [address] 90994- 6290 Oct, [place] [address] 00446- 8429 Oct, [place] [address] 63828- 9205 05 Oct, 2017 Breast pain, left N64.4 and BMI 40.0-44.9, adult Z68.41 [facility] W[facility] [place] [address] [place] [id number] [place] [address] 64484 -6160 Sep, BMI 40.0-44.9, adult Z68.41 and Multiple wounds of skin R23.8 [facility] WALK IN [address] 79[address] -1834 Sep, Body aches R52 ; Dysuria R30.0 and Viral URI J06.9 [place] [address] 61717- 9850 Aug, Nausea R11.0 ; Other viral agents as the cause of diseases classified elsewhere B97.89 and Acute upper respiratory infection, unspecified J06.9 [place] [address] [place] [id number] [place] [address] 82633- 0908 Aug, [place] [address] 22742- 2113 Aug, [facility] [address] [address]75 -9121 Jul, Sore throat J02.9 and BMI 40.0-44.9, adult Z68.41 [place] [address] 28161- 5896 Jun, Herniation through surgical site K43.2 ; Leg numbness R20.0 ; Acute pain of left knee M25.562 ; Fall, initial encounter W19.XXXA ; Non- insulin dependent type 2 diabetes mellitus E11.9 ; Morbid obesity, unspecified obesity type E66.01 ; Other chronic pain G89.29 and Unspecified abdominal pain R10.9 [facility] WALK IN [address] 17929 -7052 Jun, Muscle strain of left shoulder, initial encounter S46.912A [place] [address] [place] [id number] [place] [address] 12919- 4701 May, [place] [address] 55485- 3043 May, [facility]ARE [facility] [address] [place] [id number] [place] [address] 55954 -7918 May, Acute pain of right knee M25.561 and Right knee sprain S83.91XA [place] [address] [place] [id number] [place] [address] 27176- 9926 Apr, [place] [address] 62450- 7066 Apr, [place] [address] [place] [id number] [place] [address] 57092- 1584 Apr, 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 ; Morbid obesity, unspecified obesity type E66.01 ; Acute exacerbation of chronic obstructive pulmonary disease (COPD) J44.1 ; Pain in right knee M25.561 ; Screening for breast cancer Z12.31 and Generalized anxiety disorder F41.1 [place] [address] 15041- 4577 Mar, [facility] [place] [id number] [place] [address] 30448 -6857 Mar, Dysuria R30.0 and Acute cystitis without hematuria N30.00 [facility] [address] 93118 -5935 Feb, [facility] IN [address] 21248 -5715 Feb, Muscle cramps R25.2 and Seasonal allergic rhinitis, unspecified allergic rhinitis trigger J30.2 [place] [address] [place] [id number] [place] [address] 62236- 8455 January, [place] [id number] [place] [address] 63677- 9502 January, Generalized anxiety disorder F41.1 [facility] WALK IN [place] [id number] [place] [address] 27834 -7593 January, Acute exacerbation of chronic obstructive pulmonary disease (COPD) J44.1 [facility] [place] [id number] [place] [address] 13604 -4416 Dec, Cramps, muscle, general R25.2 [place] [id number] [place] [address] 80800- 5578 Dec, [place] [address] [place] [id number] [place] [address] 48274- 3314 Nov, Type 2 diabetes mellitus with hyperglycemia E11.65 and Non- insulin dependent type 2 diabetes mellitus E11.9 [place] [address] [place] [id number] [place] [address] 62884- 0679 28 Oct, 2016 Generalized anxiety disorder F41.1 [facility] [address] 87892 -9259 20 Oct, 2016 Vaginal candidiasis B37.3 [place] [address] 39812- 4791 09 Oct, 2016 Right upper quadrant abdominal pain R10.11 and S/P cholecystectomy Z90.49 [place] [address] 22769- 1979 Sep, Sore throat J02.9 and Right lower quadrant pain R10.31 [place] [address] 54600- 1428 Sep, Generalized anxiety disorder F41.1 [place] [address] 49827- 0125 Sep, [place] [address] 29320- 8392 Sep, [place] [address] 22520- 4361 Sep, Chest pain, unspecified type R07.9 ; Left lower quadrant pain R10.32 and Other acute postprocedural pain G89.18 [place] [address] [place] [id number] [place] [address] 92475- 8455 Sep, Fever in other diseases R50.81 ; Acute non-recurrent maxillary sinusitis J01.00 and Cough R05 [place] [address] 03791- 1131 Sep, [facility]ARE [address] 06778 -2088 Sep, Dysuria R30.0 ; Sore throat J02.9 ; Chest pain, unspecified type R07.9 and Female genital lesion N94.9 [place] [address] [place] [id number] [place] [address] 26644- 7558 27 Aug, 2016 Drug-induced constipation K59.03 ; Left arm pain M79.602 and S/P cholecystectomy Z90.49 [facility] WALK IN [facility] [address] [place] [id number] [place] [address] 42984 -3815 17 Aug, 2016 Sore throat J02.9 and Strep pharyngitis J02.0 [place] [address] [place] [id number] [place] [address] 65327- 4132 14 Aug, 2016 [place] [address] 74432- 2054 Aug, [place] [address] [place] [id number] [place] [address] 07667- 4573 Aug, [place] [address] 93383- 3298 28 Jul, 2016 [place] [address] [place] [id number] [place] [address] 99179- 8344 28 Jul, 2016 Type 2 diabetes mellitus with hyperglycemia E11.65 ; 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.33 ; Morbid obesity, unspecified obesity type E66.01 and Right upper quadrant abdominal pain R10.11 [facility] [place] [address] [place] [id number] [place] [address] 06379 -0666 14 Jul, 2016 Dysuria R30.0 ; Shortness of breath R06.02 ; Cardiomegaly I51.7 and COPD exacerbation J44.1 [place] [address] [place] [id number] [place] [address] 11703- 8175 Jul, Bipolar disorder, unspecified F31.9 and Generalized anxiety disorder F41.1 [place] [address] [place] [id number] [place] [address] 49788- 5819 Jun, [place] [address] [place] [id number] [place] [address] 24808- 9355 Jun, Sleep apnea, unspecified sleep apnea type G47.30 [place] [address] [place] [address] 22013- 2648 02 Jun, 2015 Bipolar disorder, unspecified F31.9 and Generalized anxiety disorder F41.1 [place] [address] [place] [id number] [place] [address] 01866- 0922 28 May, 2015 Right lower quadrant abdominal pain 789.03 ; Diabetes mellitus type 2, uncontrolled 250.02 ; Bipolar disorder 296.80 ; COPD (chronic obstructive pulmonary disease) 496 ; Bug bite without infection 919.4 and Left upper quadrant pain 789.02 [place] [address] [place] [id number] [place] [address] 14848- 7755 16 May, 2015 Right lower quadrant abdominal pain 789.03 [place] [address] [place] [id number] [place] [address] 32922- 0815 10 May, 2015 [place] [address] [place] [id number] [place] [address] 47868- 8917 Apr, [place] [address] [place] [id number] [place] [address] 26044- 4105 Apr, Skin infection 686.9 [place] [address] 71153- 8610 Apr, Diabetes mellitus type 2, uncontrolled 250.02 ; Bipolar disorder 296.80 ; Hyperlipidemia 272.4 ; COPD (chronic obstructive pulmonary disease) 496 ; Sleep apnea in adult 327.23 and Routine adult health maintenance V70.0 [place] [address] [place] [id number] [place] [address] 73535- 7617 Apr, Bipolar disorder 296.80 IMMUNIZATIONS No Known Immunizations SOCIAL HISTORY Never Assessed REASON FOR VISIT DM visit -- kiley hansen PLAN OF CARE Activity Details Follow Up Schedule MAWV Reason: VITAL SIGNS Height 69 in 2017-12-29 Weight 281.0 lbs 2017-12-29 Temperature 99.0 degrees Fahrenheit 2017-12-29 Heart Rate 80 bpm 2017-12-29 Respiratory Rate 20 2017-12-29 BMI 41.49 kg/m2 2017-12-29 Blood pressure systolic 126 mmHg 2017-12-29 Blood pressure diastolic 78 mmHg 2017-12-29 MEDICATIONS Medication Instructions Dosage Frequency Start Date End Date Duration Status Breo Ellipta 100-25 MCG/INH Inhalation Once a day 1 puff 24h Active Albuterol Sulfate 108 (90 Base) MCG/ACT Inhalation every 4 hrs 2 puff as needed 4h Active Prozac 40 mg Orally Once a day 1 capsule in the morning 24h 90 days Active Metformin HCl 1000 MG Orally twice a day 1 tablet 12h 30 days Active Albuterol Sulfate (2.5 MG/3ML) 0.083% Inhalation Three times a day 3 ml 8h Active Lipitor 10 mg Orally Once a day 1 tablet 24h Active Omeprazole 40 mg Orally Once a day 1 capsule 24h Active Flonase Allergy Relief 50 MCG/ACT Nasally Once a day 1 spray in each nostril 24h Active RESULTS No Results PROCEDURES Procedure Date Ordered Result Body Site GLYCATED HEMOGLOBIN TEST December 29, 2017 [facility] VISIT ESTABLISHED PATIENT December 29, 2017 LAB NOT BILLED BY [facility] December 29, 2017 VENIPUNCT, ROUTINE* December 29, 2017 INSTRUCTIONS MEDICATIONS ADMINISTERED No Known Medications [...]
--- OUTSIDE RECORDS SUMMARY | 2018-05-06 10:09 | XMS REPORT ---
Author Author NICKY THOMPSON Organization [facility] Address [address] [place] [address] Care Team Providers Care Manager Talent Name Role Phone NICKY THOMPSON Unavailable PROBLEMS Type Condition ICD9-CM Code [id number] Code Onset Dates Condition Status SNOMED Code Problem Cardiomegaly I51.7 Active 8683107 Problem Chronic bronchitis, unspecified chronic bronchitis type J42 Active 48158630 Problem BMI 40.0-44.9, adult Z68.41 Active 995345958 Problem 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.33 Active 25043605 Problem 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 Active 60567448 Problem Other chronic pain G89.29 Active 55686624 Problem Type 2 diabetes mellitus with hyperglycemia E11.65 Active [id number] ALLERGIES No Information ENCOUNTERS Encounter Location Date Diagnosis [place] [address] [place] [id number] [place] [address] 58482- 0745 Apr, [place] [address] [place] [id number] [place] [address] 75095- 9109 Mar, Medicare annual wellness visit, initial Z00.00 ; BMI 40.0- 44.9, adult Z68.41 ; Type 2 diabetes mellitus with hyperglycemia E11.65 ; Cardiomegaly I51.7 ; 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.33 ; Chronic bronchitis, unspecified chronic bronchitis type J42 ; Other chronic pain G89.29 ; Dysuria R30.0 and Encounter for immunization Z23 [place] [address] [place] [id number] [place] [address] 74136- 3101 Mar, [place] [address] [place] [id number] [place] [address] 04896- 9859 Dec, [place] [address] [place] [id number] [place] [address] 67056- 6418 Dec, Type 2 diabetes mellitus with hyperglycemia E11.65 ; Non- insulin dependent type 2 diabetes mellitus E11.9 ; BMI 40.0-44.9, adult Z68.41 ; Chronic bronchitis, unspecified chronic bronchitis type J42 ; Muscle cramp R25.2 and Incisional hernia, without obstruction or gangrene K43.2 [place] [address] 81583- 1435 Nov, [facility] WALK IN [address] 23200 -0920 Nov, Abdominal pain, unspecified abdominal location R10.9 ; Constipation, unspecified constipation type K59.00 and BMI 40.0-44.9, adult Z68.41 [place] [address] 93960- 0650 Nov, [place] [address] 34544- 2219 Oct, [place] [address] 74073- 9496 Oct, [place] [address] 63779- 1827 05 Oct, 2017 Breast pain, left N64.4 and BMI 40.0-44.9, adult Z68.41 [facility] WALK IN [address] 96257 -9950 Sep, BMI 40.0-44.9, adult Z68.41 and Multiple wounds of skin R23.8 [facility] WALK IN [address] 93036 -7943 Sep, Body aches R52 ; Dysuria R30.0 and Viral URI J06.[address] 35054- 2263 Aug, Nausea R11.0 ; Other viral agents as the cause of diseases classified elsewhere B97.89 and Acute upper respiratory infection, unspecified J06.9 [place] [address] [place] [address] 71412- 1469 Aug, [place] [address] 34538- 2409 Aug, [facility] WALK [place] [address] [id number] [place] [address] 20854 -5147 Jul, Sore throat J02.9 and BMI 40.0-44.9, adult Z68.41 [place] [address] [place] [id number] [place] [address] 85304- 3528 Jun, Herniation through surgical site K43.2 ; Leg numbness R20.0 ; Acute pain of left knee M25.562 ; Fall, initial encounter W19.XXXA ; Non- insulin dependent type 2 diabetes mellitus E11.9 ; Morbid obesity, unspecified obesity type E66.01 ; Other chronic pain G89.29 and Unspecified abdominal pain R10.9 [facility] WALK [place] [address] [place] [id number] [place] [address] 36793 -3574 Jun, Muscle strain of left shoulder, initial encounter S46.912A [place] [address] [place] [id number] [place] [address] 50823- 7582 May, [place] [address] [place] [id number] [place] [address] 03545- 7607 May, [facility] [place] [address] [place] [id number] [place] [address] 77982 -0289 05 May, 2017 Acute pain of right knee M25.561 and Right knee sprain S83.91XA [place] [address] [place] [id number] [place] [address] 96601- 9253 Apr, [place] [address] [place] [id number] [place] [address] 56198- 7605 Apr, [place] [address] [place] [id number] [place] [address] 97432- 1091 Apr, 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 ; Morbid obesity, unspecified obesity type E66.01 ; Acute exacerbation of chronic obstructive pulmonary disease (COPD) J44.1 ; Pain in right knee M25.561 ; Screening for breast cancer Z12.31 and Generalized anxiety disorder F41.1 [place] [address] [place] [id number] [place] [address] 96955- 1453 Mar, [facility] [place] [id number] [place] [address] 64648 -7933 Mar, Dysuria R30.0 and Acute cystitis without hematuria N30.00 [facility] [place] [id number] [place] [address] 60980 -9482 Feb, [facility] WALK IN [address] 29866 -4656 Feb, Muscle cramps R25.2 and Seasonal allergic rhinitis, unspecified allergic rhinitis trigger J30.2 [place] [address] 01430- 1777 January, [place] [address] [place] [id number] [place] [address] 43107- 4321 January, Generalized anxiety disorder F41.1 [facility] WALK IN [place] [id number] [place] [address] 13990 -9463 January, Acute exacerbation of chronic obstructive pulmonary disease (COPD) J44.1 [facility] WALK IN [place] [id number] [place] [address] 81540 -5329 Dec, Cramps, muscle, general R25.2 [place] [address] [place] [id number] [place] [address] 56513- 4418 Dec, [address] 68484- 3009 Nov, Type 2 diabetes mellitus with hyperglycemia E11.65 and Non- insulin dependent type 2 diabetes mellitus E11.9 [place] [address] [place] [address] 09918- 9554 Oct, Generalized anxiety disorder F41.1 [facility] [address] [place] [id number] [place] [address] 85283 -7956 Oct, Vaginal candidiasis B37.3 [place] [address] [place] [id number] [place] [address] 96231- 2783 Oct, Right upper quadrant abdominal pain R10.11 and S/P cholecystectomy Z90.49 [place] [address] 02980- 9431 Sep, Sore throat J02.9 and Right lower quadrant pain R10.31 [place] [address] 52798- 6816 Sep, Generalized anxiety disorder F41.1 [place] [address] 72821- 9887 Sep, [place] [address] 51475- 6812 Sep, [place] [address] [place] [id number] [place] [address] 15306- 4885 Sep, Chest pain, unspecified type R07.9 ; Left lower quadrant pain R10.32 and Other acute postprocedural pain G89.18 [place] [address] [place] [id number] [place] [address] 08630- 4312 Sep, Fever in other diseases R50.81 ; Acute non-recurrent maxillary sinusitis J01.00 and Cough R05 [place] [address] [place] [id number] [place] [address] 13895- 4499 Sep, [facility]ARE [address] [place] [id number] [place] [address] 76762 -5228 Sep, Dysuria R30.0 ; Sore throat J02.9 ; Chest pain, unspecified type R07.9 and Female genital lesion N94.9 [place] [address] [place] [id number] [place] [address] 50706- 5255 27 Dec, 2016 Drug-induced constipation K59.03 ; Left arm pain M79.602 and S/P cholecystectomy Z90.49 [facility] WALK IN [facility] [address] [place] [id number] [place] [address] 21344 -2452 17 Aug, 2016 Sore throat J02.9 and Strep pharyngitis J02.0 [facility] [address] 23974- 1261 14 Aug, 2016 [place] [address] 09644- 4470 Aug, [place] [address] 83329- 2065 Aug, [place] [address] 48499- 4847 Jul, [place] [address] 91224- 5957 Jul, Type 2 diabetes mellitus with hyperglycemia E11.65 ; 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.33 ; Morbid obesity, unspecified obesity type E66.01 and Right upper quadrant abdominal pain R10.11 [facility] IN [facility] [address] [place] [id number] [place] [address] 98883 -9289 Jul, Dysuria R30.0 ; Shortness of breath R06.02 ; Cardiomegaly I51.7 and COPD exacerbation J44.1 [place] [address] [place] [id number] [place] [address] 05923- 5757 Jul, Bipolar disorder, unspecified F31.9 and Generalized anxiety disorder F41.1 [place] [address] [place] [id number] [place] [address] 62902- 0636 Jun, [place] [address] 47202- 6463 Jun, Sleep apnea, unspecified sleep apnea type G47.30 [place] [address] 31147- 9284 Jun, Bipolar disorder, unspecified F31.9 and Generalized anxiety disorder F41.1 [place] [address] [address] 28 May, 2015 Right lower quadrant abdominal pain 789.03 ; Diabetes mellitus type 2, uncontrolled 250.02 ; Bipolar disorder 296.80 ; COPD (chronic obstructive pulmonary disease) 496 ; Bug bite without infection 919.4 and Left upper quadrant pain 789.02 [place] [address] [place] [id number] [place] [address] 87431- 0842 16 May, 2015 Right lower quadrant abdominal pain 789.03 [place] [address] [place] [id number] [place] [address] 54071- 4678 10 May, 2015 [place] [address] [place] [id number] [place] [address] 92900- 5198 Apr, [place] [address] [place] [id number] [place] [address] 67570- 4522 Apr, Skin infection 686.9 [place] [address] [place] [id number] [place] [address] 65891- 3072 Apr, Bipolar disorder 296.80 ; Diabetes mellitus type 2, uncontrolled 250.02 ; Hyperlipidemia 272.4 ; COPD (chronic obstructive pulmonary disease) 496 ; Sleep apnea in adult 327.23 and Routine adult health maintenance V70.0 [place] [address] [place] [address] 38554- 9543 Apr, Bipolar disorder 296.80 IMMUNIZATIONS No Known Immunizations SOCIAL HISTORY Never Assessed REASON FOR VISIT refill request PLAN OF CARE VITAL SIGNS MEDICATIONS Medication Instructions Dosage Frequency Start Date End Date Duration Status Metformin HCl 1000 MG Orally twice a day 1 tablet 12h 30 days Active RESULTS No Results PROCEDURES No Known [...]
--- OUTSIDE RECORDS SUMMARY | 2018-05-06 10:10 | XMS REPORT ---
Author Author SARMAD MCKNIGHT [facility] IN [facility] Address [address] [place] [address] Care Team Providers Care Damascener Name Role Phone SARMAD MCKNIGHT Unavailable PROBLEMS Type Condition ICD9-CM Code CWO98-QS Code Onset Dates Condition Status SNOMED Code Problem Cardiomegaly I51.7 Active 9278364 Problem 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 Active 79535096 Problem 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.33 Active 82374468 Problem Chronic bronchitis, unspecified chronic bronchitis type J42 Active 39107689 Problem BMI 40.0-44.9, adult Z68.41 Active 601188488 Problem Type 2 diabetes mellitus with hyperglycemia E11.65 Active 386955327458420 Problem S/P cholecystectomy Z90.49 Active 317274395 Problem Other chronic pain G89.29 Active 26430751 Problem Seasonal allergic rhinitis, unspecified allergic rhinitis trigger J30.2 Active 416209249 ALLERGIES Substance Reaction Event Type Date Status Penicillin V Potassium Unknown Drug Allergy Sep, Active Doxycycline Hyclate hives Drug Allergy Sep, Active IV contrast dye Unknown Non Drug Allergy Sep, Active ENCOUNTERS Encounter Location Date Diagnosis [place] [address], [place] [address] Mar, Medicare annual wellness visit, initial Z00.00 [facility] [address] [place] [address] 82221- 6226 Dec, [place] [address] [place] [id number] [place] [address] 18006- 2710 02 Dec, 2017 Type 2 diabetes mellitus with hyperglycemia E11.65 ; Non- insulin dependent type 2 diabetes mellitus E11.9 ; BMI 40.0-44.9, adult Z68.41 ; Chronic bronchitis, unspecified chronic bronchitis type J42 ; Muscle cramp R25.2 and Incisional hernia, without obstruction or gangrene K43.2 [place] [address] [place] [id number] [place] [address] 59171- 7342 Nov, [facility] [place] [address] [address] [place] [id number] [place] [address] 06763 -6006 Nov, Abdominal pain, unspecified abdominal location R10.9 ; Constipation, unspecified constipation type K59.00 and BMI 40.0-44.9, adult Z68.41 [place] [address] 62652- 4532 Nov, [place] [address] 15907- 1952 16 Oct, 2017 [place] [address] 55087- 5710 Oct, [place] [address] 47562- 5552 05 Oct, 2017 Breast pain, left N64.4 and BMI 40.0-44.9, adult Z68.41 [facility] [place] [id number] [place] [address] 10532 -1488 22 Sep, 2017 BMI 40.0-44.9, adult Z68.41 and Multiple wounds of skin R23.8 [facility] [place] [id number] [place] [address] 60294 -1571 Sep, Body aches R52 ; Dysuria R30.0 and Viral URI J06.9 [place] [address] [place] [id number] [place] [address] 05174- 6741 Aug, Nausea R11.0 ; Other viral agents as the cause of diseases classified elsewhere B97.89 and Acute upper respiratory infection, unspecified J06.9 [place] [address] [place] [id number] [place] [address] 40442- 1341 Aug, [place] [address] 58691- 0861 Aug, [facility] [address] [place] [id number] [address] Jul, Sore throat J02.9 and BMI 40.0-44.9, adult Z68.41 [place] [address] [place] [address] [place] [address] 06246- 8002 Jun, Herniation through surgical site K43.2 ; Leg numbness R20.0 ; Acute pain of left knee M25.562 ; Fall, initial encounter W19.XXXA ; Non- insulin dependent type 2 diabetes mellitus E11.9 ; Morbid obesity, unspecified obesity type E66.01 ; Other chronic pain G89.29 and Unspecified abdominal pain R10.9 [facility] [place] [address] [address] [place] [id number] [place] [address] 09224 -2576 Jun, Muscle strain of left shoulder, initial encounter S46.912A [place] [address] [place] [id number] [place] [address] 24634- 3522 May, [place] [address] [place] [id number] [place] [address] 43179- 7527 07 May, 2017 [facility] [place] [address] [address] [place] [id number] [place] [address] 12503 -6612 05 May, 2017 Acute pain of right knee M25.561 and Right knee sprain S83.91XA [place] [address] [place] [id number] [place] [address] 92700- 2689 Apr, [place] [address] [place] [id number] [place] [address] 34958- 4011 Apr, [place] [address] [place] [id number] [place] [address] 57201- 1986 Apr, 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 ; Morbid obesity, unspecified obesity type E66.01 ; Acute exacerbation of chronic obstructive pulmonary disease (COPD) J44.1 ; Pain in right knee M25.561 ; Screening for breast cancer Z12.31 and Generalized anxiety disorder F41.1 [place] [address] [place] [address] Mar, [facility] [address] [address] -5826 Mar, Dysuria R30.0 and Acute cystitis without hematuria N30.00 [facility] [address] 88084 -3431 Feb, [facility] [address] 38298 -6875 Feb, Muscle cramps R25.2 and Seasonal allergic rhinitis, unspecified allergic rhinitis trigger J30.2 [place] [address] 50044- 0294 January, [place] [address] 95428- 1264 January, Generalized anxiety disorder F41.1 [facility] [address] 38695 -2175 January, Acute exacerbation of chronic obstructive pulmonary disease (COPD) J44.1 [facility] [place] [address] 80979 -9160 Dec, Cramps, muscle, general R25.2 [place] [address] 57289- 1354 Dec, [place] [address] 23225- 8849 Nov, Type 2 diabetes mellitus with hyperglycemia E11.65 and Non- insulin dependent type 2 diabetes mellitus E11.9 [place] [address] 83978- 2202 Oct, Generalized anxiety disorder F41.1 [facility] [address] [place] [id number] [place] [address] 15490 -4982 Oct, Vaginal candidiasis B37.3 [place] [address] 39767- 8192 Oct, Right upper quadrant abdominal pain R10.11 and S/P cholecystectomy Z90.49 [place] [address] 61942- 1558 Sep, Sore throat J02.9 and Right lower quadrant pain R10.31 [place] [address] 81722- 0658 Sep, Generalized anxiety disorder F41.1 [place] [address] 80732- 8812 Sep, [place] [address] 02690- 0245 Sep, [place] [address] 40568- 9661 Sep, Chest pain, unspecified type R07.9 ; Left lower quadrant pain R10.32 and Other acute postprocedural pain G89.18 [place] [address] [place] [id number] [place] [address] 20513- 3744 Sep, Fever in other diseases R50.81 ; Acute non-recurrent maxillary sinusitis J01.00 and Cough R05 [place] [address] [place] [id number] [place] [address] 37176- 3469 Sep, [facility] [place] [address] [address] [place] [id number] [place] [address] 91775 -9789 Sep, Dysuria R30.0 ; Sore throat J02.9 ; Chest pain, unspecified type R07.9 and Female genital lesion N94.9 [place] [address] [place] [id number] [place] [address] 05405- 8417 Aug, Drug-induced constipation K59.03 ; Left arm pain M79.602 and S/P cholecystectomy Z90.49 [facility] WALK IN [facility] [address] [place] [id number] [place] [address] 43644 -0564 Aug, Sore throat J02.9 and Strep pharyngitis J02.0 [facility] [address] [place] [id number] [place] [address] 57189- 3883 14 Aug, 2016 [facility] [address] [place] [id number] [place] [address] 65016- 5305 13 Aug, 2016 [facility] [address] [place] [id number] [place] [address] 20997- 7231 Aug, [facility] [address] 81540- 9063 Jul, [facility] [address] [place] [id number] [place] [address] 73321- 2592 Jul, Type 2 diabetes mellitus with hyperglycemia E11.65 ; 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.33 ; Morbid obesity, unspecified obesity type E66.01 and Right upper quadrant abdominal pain R10.11 [facility] IN [facility] [address] [place] [id number] [place] [address] 45735 -0802 Jul, Dysuria R30.0 ; Shortness of breath R06.02 ; Cardiomegaly I51.7 and COPD exacerbation J44.1 [place] [address] [place] [id number] [place] [address] 42591- 5541 Jul, Bipolar disorder, unspecified F31.9 and Generalized anxiety disorder F41.1 [place] [address] [place] [id number] [place] [address] 08827- 6994 Jun, [place] [address] 84579- 2235 16 Jun, 2015 Sleep apnea, unspecified sleep apnea type G47.30 [place] [address] [place] [id number] [place] [address] 41460- 8035 Jun, Bipolar disorder, unspecified F31.9 and Generalized anxiety disorder F41.1 [facility] [address] [place] [id number] [place] [address] 40303- 8470 May, Right lower quadrant abdominal pain 789.03 ; Diabetes mellitus type 2, uncontrolled 250.02 ; Bipolar disorder 296.80 ; COPD (chronic obstructive pulmonary disease) 496 ; Bug bite without infection 919.4 and Left upper quadrant pain 789.02 [place] [address] [place] [address] 02029- 6038 16 May, 2015 Right lower quadrant abdominal pain 789.03 [place] [address] [place] [address] 11428- 9007 May, [place] [address] [place] [id number] [place] [address] 18731- 4528 Apr, [place] [address] [place] [id number] [place] [address] 70635- 3251 Apr, Skin infection 686.9 [place] [address] [place] [id number] [place] [address] 76879- 3844 Apr, Diabetes mellitus type 2, uncontrolled 250.02 ; Bipolar disorder 296.80 ; Hyperlipidemia 272.4 ; COPD (chronic obstructive pulmonary disease) 496 ; Sleep apnea in adult 327.23 and Routine adult health maintenance V70.0 [place] [address] [place] [address] 51255- 0924 Apr, Bipolar disorder 296.80 IMMUNIZATIONS No Known Immunizations SOCIAL HISTORY Never Assessed REASON FOR VISIT Runny nose, headache, body aches started Friday JStrasserRN, Burning with urination started about 4 days ago PLAN OF CARE Activity Details Follow Up prn Reason: VITAL SIGNS Height 69 in 2017-10-08 Weight 270.4 lbs 2017-10-08 Temperature 98.8 degrees Fahrenheit 2017-10-08 Heart Rate 84 bpm 2017-10-08 Respiratory Rate 22 2017-10-08 Oximetry 95 % 2017-10-08 BMI 39.93 kg/m2 2017-10-08 Blood pressure systolic 116 mmHg 2017-10-08 Blood pressure diastolic 72 mmHg 2017-10-08 MEDICATIONS Medication Instructions Dosage Frequency Start Date End Date Duration Status Albuterol Sulfate 108 (90 Base) MCG/ACT Inhalation every 4 hrs 2 puff as needed 4h Active Albuterol Sulfate (2.5 MG/3ML) 0.083% Inhalation Three times a day 3 ml 8h Active Breo Ellipta 100-25 MCG/INH Inhalation Once a day 1 puff 24h Active Glucocard Expression Test - In Vitro 2 times a day as directed 12h Apr, Not-Taking Flonase Allergy Relief 50 MCG/ACT Nasally Once a day 1 spray in each nostril 24h Active Meloxicam 7.5 MG Orally Once a day 1 tablet 24h Apr, 4 Oct, 2017 90 days Not-Taking Prozac 40 mg Orally Once a day 1 capsule in the morning 24h 90 days Active Omeprazole 40 mg Orally Once a day 1 capsule 24h Active Lipitor 10 mg Orally Once a day 1 tablet 24h Active Zyrtec Allergy 10 MG Orally Once a day 1 tablet 24h Sep, Oct, 30 day(s) Active Fluoxetine HCl 40 TAKE ONE CAPSULE BY MOUTH EVERY MORNING 30 Active Metformin HCl 1000 MG Orally twice a day 1 tablet 12h 30 days Active RESULTS Name Result Date Reference Range INFLUENZA A & B (IN HOUSE) 2017-10-08 INFLUENZA A negative INFLUENZA B negative Control + Lot # [id number] Exp date 2020-01-14 UA LONG DIP (IN HOUSE) 2017-10-08 Lot # [id number] Exp date 2018-06-28 Clarity clear Color dark yellow Odor strong GLU negative ZANDER negative KET negative SG >=1.030 BLO negative pH 5.5 Protein negative URO 0.2 NIT negative GUSTAVO negative Lot # [id number] Exp date December 2017 PROCEDURES Procedure Date Ordered Result Body Site MEASURE BLOOD OXYGEN LEVEL Oct 08, 2017 INFLUENZA ASSAY W/OPTIC Oct 08, 2017 [facility] VISIT ESTABLISHED PATIENT Oct 08, 2017 URINALYSIS, AUTO, W/O SCOPE Oct 08, 2017 INSTRUCTIONS MEDICATIONS ADMINISTERED No Known Medications [...]
--- OUTSIDE RECORDS SUMMARY | 2018-05-06 10:10 | XMS REPORT ---
Author Author NICKY THOMPSON Organization [facility] Address [address] [place] [address] Care Team Providers Care Seo Coordinator Name Role Phone NICKY THOMPSON Unavailable PROBLEMS Type Condition ICD9-CM Code SJL49-DC Code Onset Dates Condition Status SNOMED Code Problem Cardiomegaly I51.7 Active 2156576 Problem 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 Active 45596493 Problem 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.33 Active 14404160 Problem Chronic bronchitis, unspecified chronic bronchitis type J42 Active 21873710 Problem BMI 40.0-44.9, adult Z68.41 Active 702644246 Problem Type 2 diabetes mellitus with hyperglycemia E11.65 Active 246184578527209 Problem S/P cholecystectomy Z90.49 Active 008657176 Problem Other chronic pain G89.29 Active 82064156 Problem Seasonal allergic rhinitis, unspecified allergic rhinitis trigger J30.2 Active 758978075 ALLERGIES No Information ENCOUNTERS Encounter Location Date Diagnosis [facility] [address] [place] [id number] [place] [address] 54063- 6702 January, Medicare annual wellness visit, initial Z00.00 [facility] [address] [place] [address] 85473- 0330 02 Dec, 2017 Type 2 diabetes mellitus with hyperglycemia E11.65 ; Non- insulin dependent type 2 diabetes mellitus E11.9 ; BMI 40.0-44.9, adult Z68.41 ; Chronic bronchitis, unspecified chronic bronchitis type J42 ; Muscle cramp R25.2 and Incisional hernia, without obstruction or gangrene K43.2 [facility] [address] [place] [id number] [address] Nov, [facility] [address] [place] [address] 09582 -6161 Nov, Abdominal pain, unspecified abdominal location R10.9 ; Constipation, unspecified constipation type K59.00 and BMI 40.0-44.9, adult Z68.41 [place] [address] [place] [id number] [place] [address] 40168- 2469 09 Nov, 2017 [place] [address] [place] [id number] [place] [address] 89435- 2765 Oct, [place] [address] 84074- 0083 Oct, [place] [address] 07845- 2608 05 Oct, 2017 Breast pain, left N64.4 and BMI 40.0-44.9, adult Z68.41 [facility] [address] 64677 -9904 22 Sep, 2017 BMI 40.0-44.9, adult Z68.41 and Multiple wounds of skin R23.8 [facility] [place] [id number] [place] [address] 95084 -1392 Sep, Body aches R52 ; Dysuria R30.0 and Viral URI J06.9 [place] [id number] [place] [address] 17141- 3014 Aug, Nausea R11.0 ; Other viral agents as the cause of diseases classified elsewhere B97.89 and Acute upper respiratory infection, unspecified J06.9 [place] [address] [place] [id number] [place] [address] 63100- 4291 Aug, [place] [address] 07467- 4493 Aug, [facility] [place] [id number] [place] [address] 59962 -1758 Jul, Sore throat J02.9 and BMI 40.0-44.9, adult Z68.[address] 26615- 8745 Jun, Herniation through surgical site K43.2 ; Leg numbness R20.0 ; Acute pain of left knee M25.562 ; Fall, initial encounter W19.XXXA ; Non- insulin dependent type 2 diabetes mellitus E11.9 ; Morbid obesity, unspecified obesity type E66.01 ; Other chronic pain G89.29 and Unspecified abdominal pain R10.9 [facility] [place] [address] [place] [id number] [place] [address] 28697 -1868 Jun, Muscle strain of left shoulder, initial encounter S46.912A [place] [address] [place] [id number] [place] [address] 75370- 1614 May, [place] [address] [place] [id number] [place] [address] 98342- 1453 May, [facility] [place] [address] [place] [id number] [place] [address] 55525 -4123 May, Acute pain of right knee M25.561 and Right knee sprain S83.91XA [place] [address] [place] [id number] [place] [address] 16161- 8979 Apr, [place] [address] [place] [id number] [place] [address] 74790- 4504 Apr, [place] [address] [place] [id number] [place] [address] 45115- 9908 Apr, 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 ; Morbid obesity, unspecified obesity type E66.01 ; Acute exacerbation of chronic obstructive pulmonary disease (COPD) J44.1 ; Pain in right knee M25.561 ; Screening for breast cancer Z12.31 and Generalized anxiety disorder F41.1 [place] [address] [place] [id number] [place] [address] 28506- 6706 Mar, [facility] [place] [address] [place] [id number] [place] [address] 64301 -1758 Mar, Dysuria R30.0 and Acute cystitis without hematuria N30.00 [facility] [address] [place] [id number] [place] [address] 61894 -3780 Feb, [facility] [address] 38916 -4215 Feb, Muscle cramps R25.2 and Seasonal allergic rhinitis, unspecified allergic rhinitis trigger J30.2 [place] [address] 74912- 3621 January, [place] [address] 54668- 7542 January, Generalized anxiety disorder F41.1 [facility] [address] 70280 -9795 January, Acute exacerbation of chronic obstructive pulmonary disease (COPD) J44.1 [facility] [address] 10567 -0362 Dec, Cramps, muscle, general R25.2 [place] [address] 19078- 5575 Dec, [address] 97189- 2641 Nov, Type 2 diabetes mellitus with hyperglycemia E11.65 and Non- insulin dependent type 2 diabetes mellitus E11.9 [place] [id number] [place] [address] 26877- 0176 Oct, Generalized anxiety disorder F41.1 [facility] [place] [address] [place] [id number] [place] [address] 87002 -7447 Oct, Vaginal candidiasis B37.[address] 51992- 7796 Oct, Right upper quadrant abdominal pain R10.11 and S/P cholecystectomy Z90.[address] 23736- 2563 Sep, Sore throat J02.9 and Right lower quadrant pain R10.31 [place] [address] [place] [id number] [place] [address] 18921- 3987 Sep, Generalized anxiety disorder F41.1 [place] [address] 83691- 9919 Sep, [place] [address] 66389- 8220 Sep, [place] [address] 59149- 5210 Sep, Chest pain, unspecified type R07.9 ; Left lower quadrant pain R10.32 and Other acute postprocedural pain G89.18 [place] [address] 06614- 9256 Sep, Fever in other diseases R50.81 ; Acute non-recurrent maxillary sinusitis J01.00 and Cough R05 [place] [address] 19224- 6446 Sep, [facility] N [address] 57613 -3849 Sep, Dysuria R30.0 ; Sore throat J02.9 ; Chest pain, unspecified type R07.9 and Female genital lesion N94.9 [place] [address] [place] [id number] [place] [address] 14040- 1531 Aug, Drug-induced constipation K59.03 ; Left arm pain M79.602 and S/P cholecystectomy Z90.49 [facility] [address] [place] [id number] [place] [address] 30854 -4198 Aug, Sore throat J02.9 and Strep pharyngitis J02.0 [place] [address] [place] [id number] [place] [address] 88112- 5846 Aug, [place] [address] 74467- 0802 Aug, [facility] [address] [place] [address] 41998- 9028 Aug, [place] [address] 45316- 9165 28 Jul, 2016 [facility] [address] [place] [id number] [place] [address] 32157- 0682 28 Jul, 2016 Type 2 diabetes mellitus with hyperglycemia E11.65 ; 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.33 ; Morbid obesity, unspecified obesity type E66.01 and Right upper quadrant abdominal pain R10.11 [facility] IN [facility] [address] [place] [id number] [place] [address] 71267 -2289 14 Jul, 2016 Dysuria R30.0 ; Shortness of breath R06.02 ; Cardiomegaly I51.7 and COPD exacerbation J44.1 [place] [address] [place] [id number] [place] [address] 00749- 1187 Jul, Bipolar disorder, unspecified F31.9 and Generalized anxiety disorder F41.1 [place] [address] [place] [id number] [place] [address] 64392- 5637 Jun, [place] [address] [place] [id number] [place] [address] 55714- 5705 16 Jun, 2015 Sleep apnea, unspecified sleep apnea type G47.30 [place] [address] [place] [id number] [place] [address] 09171- 1012 Jun, Bipolar disorder, unspecified F31.9 and Generalized anxiety disorder F41.1 [place] [address] [place] [id number] [place] [address] 44240- 4610 28 May, 2015 Right lower quadrant abdominal pain 789.03 ; Diabetes mellitus type 2, uncontrolled 250.02 ; Bipolar disorder 296.80 ; COPD (chronic obstructive pulmonary disease) 496 ; Bug bite without infection 919.4 and Left upper quadrant pain 789.02 [facility] [address] [place] [address] 23502- 5925 16 May, 2015 Right lower quadrant abdominal pain 789.03 [facility] [address] [facility] [id number] [address] May, [facility] [address] [facility] [id number] [address]- 6952 Apr, [facility] [address] [facility] [id number] [address]- 7856 Apr, Skin infection 686.9 [facility] [address] [facility] [id number] [address]- 8883 Apr, Bipolar disorder 296.80 ; Diabetes mellitus type 2, uncontrolled 250.02 ; Hyperlipidemia 272.4 ; COPD (chronic obstructive pulmonary disease) 496 ; Sleep apnea in adult 327.23 and Routine adult health maintenance V70.0 [facility] [address] [facility] [id number] [address]- 6614 Apr, Bipolar disorder 296.80 IMMUNIZATIONS No Known Immunizations SOCIAL HISTORY Never Assessed REASON FOR VISIT Medication refill request PLAN OF CARE VITAL SIGNS MEDICATIONS Unknown [...]
--- OUTSIDE RECORDS SUMMARY | 2018-05-06 10:10 | XMS REPORT ---
Author Author ALICEAMARIA Echeverria Organization [facility] Address [address] [place] [address] Care Team Providers Care Metal Treater Name Role Phone MARIA ALICEA Unavailable PROBLEMS Type Condition ICD9-CM Code PAJ72-DH Code Onset Dates Condition Status SNOMED Code Problem Cardiomegaly I51.7 Active 2868551 Problem 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 Active 95490962 Problem 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.33 Active 13966083 Problem Chronic bronchitis, unspecified chronic bronchitis type J42 Active 46614814 Problem BMI 40.0-44.9, adult Z68.41 Active 522349378 Problem Type 2 diabetes mellitus with hyperglycemia E11.65 Active 949067038914760 Problem S/P cholecystectomy Z90.49 Active 197124112 Problem Other chronic pain G89.29 Active 12597573 Problem Seasonal allergic rhinitis, unspecified allergic rhinitis trigger J30.2 Active 956290770 ALLERGIES Substance Reaction Event Type Date Status Penicillin V Potassium Unknown Drug Allergy Aug, Active Doxycycline Hyclate hives Drug Allergy Aug, Active IV contrast dye Unknown Non Drug Allergy Aug, Active ENCOUNTERS Encounter Location Date Diagnosis [place] [id number] [place] [address] 65562- 2506 Mar, Medicare annual wellness visit, initial Z00.00 [facility] [id number] [place] [address] 85935- 1921 Dec, [place] [address] [place] [id number] [place] [address] 52306- 8470 Dec, Type 2 diabetes mellitus with hyperglycemia E11.65 ; Non- insulin dependent type 2 diabetes mellitus E11.9 ; BMI 40.0-44.9, adult Z68.41 ; Chronic bronchitis, unspecified chronic bronchitis type J42 ; Muscle cramp R25.2 and Incisional hernia, without obstruction or gangrene K43.2 [place] [address] [place] [id number] [place] [address] 69568- 1591 Nov, [facility] [place] [address] [address] [place] [id number] [place] [address] 80569 -6032 Nov, Abdominal pain, unspecified abdominal location R10.9 ; Constipation, unspecified constipation type K59.00 and BMI 40.0-44.9, adult Z68.41 [place] [address] 66342- 6618 Nov, [place] [address] [place] [id number] [place] [address] 22013- 8689 Oct, [place] [address] 12784- 5013 Oct, [place] [address] 21348- 1897 05 Oct, 2017 Breast pain, left N64.4 and BMI 40.0-44.9, adult Z68.41 [facility] [place] [id number] [place] [address] 43870 -1627 22 Sep, 2017 BMI 40.0-44.9, adult Z68.41 and Multiple wounds of skin R23.8 [facility]ALK [place] [id number] [place] [address] 50373 -7648 Sep, Body aches R52 ; Dysuria R30.0 and Viral URI J06.9 [place] [address] [place] [id number] [place] [address] 94715- 7871 Aug, Nausea R11.0 ; Other viral agents as the cause of diseases classified elsewhere B97.89 and Acute upper respiratory infection, unspecified J06.9 [place] [address] [place] [id number] [place] [address] 96048- 7739 Aug, [place] [address] [place] [id number] [place] [address] 30958- 2187 Aug, [facility] [address] [place] [address] 06699 -5027 Jul, Sore throat J02.9 and BMI 40.0-44.9, adult Z68.41 [place] [address] [place] [id number] [place] [address] 36167- 7552 Jun, Herniation through surgical site K43.2 ; Leg numbness R20.0 ; Acute pain of left knee M25.562 ; Fall, initial encounter W19.XXXA ; Non- insulin dependent type 2 diabetes mellitus E11.9 ; Morbid obesity, unspecified obesity type E66.01 ; Other chronic pain G89.29 and Unspecified abdominal pain R10.9 [facility] WALK IN [facility] [address] [place] [id number] [place] [address] 44619 -6377 Jun, Muscle strain of left shoulder, initial encounter S46.912A [place] [address] [place] [id number] [place] [address] 16662- 2635 May, [place] [address] [place] [id number] [place] [address] 62980- 0553 07 May, 2017 [facility] WALK IN [facility] [address] [place] [id number] [place] [address] 46393 -4405 05 May, 2017 Acute pain of right knee M25.561 and Right knee sprain S83.91XA [place] [address] [place] [id number] [place] [address] 60743- 9735 Apr, [place] [address] [place] [id number] [place] [address] 22759- 1597 Apr, [place] [address] [place] [id number] [place] [address] 04353- 9890 Apr, 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 ; Morbid obesity, unspecified obesity type E66.01 ; Acute exacerbation of chronic obstructive pulmonary disease (COPD) J44.1 ; Pain in right knee M25.561 ; Screening for breast cancer Z12.31 and Generalized anxiety disorder F41.1 [place] [address] [place] [address]- 6769 Mar, [facility] [address] 49872 -2385 Mar, Dysuria R30.0 and Acute cystitis without hematuria N30.00 [facility] [address] 70380 -1041 Feb, [facility] [address] 01288 -3276 Feb, Muscle cramps R25.2 and Seasonal allergic rhinitis, unspecified allergic rhinitis trigger J30.2 [place] [address] 36420- 8130 January, [place] [address] 18022- 5539 January, Generalized anxiety disorder F41.1 [facility] [address] [place] [address] 00347 -9649 January, Acute exacerbation of chronic obstructive pulmonary disease (COPD) J44.1 [facility] [place] [address] 38957 -7483 Dec, Cramps, muscle, general R25.2 [place] [address] [place] [id number] [place] [address] 67538- 0499 Dec, [place] [address] 91484- 0861 Nov, Type 2 diabetes mellitus with hyperglycemia E11.65 and Non- insulin dependent type 2 diabetes mellitus E11.9 [place] [address] 32128- 2912 Oct, Generalized anxiety disorder F41.1 [facility] [address] [place] [id number] [place] [address] 25143 -6094 Oct, Vaginal candidiasis B37.3 [place] [address] 81065- 7430 Oct, Right upper quadrant abdominal pain R10.11 and S/P cholecystectomy Z90.49 [place] [address] 06388- 7129 Sep, Sore throat J02.9 and Right lower quadrant pain R10.31 [place] [address] 70094- 4667 Sep, Generalized anxiety disorder F41.1 [place] [address] 80644- 4236 Sep, [place] [address] 95521- 1657 Sep, [place] [address] 66169- 5525 Sep, Chest pain, unspecified type R07.9 ; Left lower quadrant pain R10.32 and Other acute postprocedural pain G89.18 [place] [address] [place] [id number] [place] [address] 87692- 1862 Sep, Fever in other diseases R50.81 ; Acute non-recurrent maxillary sinusitis J01.00 and Cough R05 [place] [address] [place] [id number] [place] [address] 46607- 8737 Sep, [facility] [place] [address] [address] [place] [id number] [place] [address] 65951 -5599 Sep, Dysuria R30.0 ; Sore throat J02.9 ; Chest pain, unspecified type R07.9 and Female genital lesion N94.9 [place] [address] [place] [id number] [place] [address] 58947- 2825 Aug, Drug-induced constipation K59.03 ; Left arm pain M79.602 and S/P cholecystectomy Z90.49 [facility] WALK IN [facility] [address] [place] [id number] [place] [address] 44612 -2371 Aug, Sore throat J02.9 and Strep pharyngitis J02.0 [facility] [address] [place] [id number] [place] [address] 55416- 0598 14 Aug, 2016 [facility] [address] 74813- 1653 13 Aug, 2016 [facility] [address] 32487- 3590 Aug, [facility] [address] 43727- 2986 Jul, [facility] [address] 65827- 4219 Jul, Type 2 diabetes mellitus with hyperglycemia E11.65 ; 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.33 ; Morbid obesity, unspecified obesity type E66.01 and Right upper quadrant abdominal pain R10.11 [facility] [address] 23965 -0405 Jul, Dysuria R30.0 ; Shortness of breath R06.02 ; Cardiomegaly I51.7 and COPD exacerbation J44.1 [place] [address] 12491- 2152 Jul, Bipolar disorder, unspecified F31.9 and Generalized anxiety disorder F41.1 [place] [address] [place] [id number] [place] [address] 86269- 8844 Jun, [place] [address] 71935- 0517 16 Jun, 2015 Sleep apnea, unspecified sleep apnea type G47.30 [facility] [address] 69233- 6490 Jun, Bipolar disorder, unspecified F31.9 and Generalized anxiety disorder F41.1 [facility] [address] [place] [id number] [place] [address] 00209- 4133 28 May, 2015 Right lower quadrant abdominal pain 789.03 ; Diabetes mellitus type 2, uncontrolled 250.02 ; Bipolar disorder 296.80 ; COPD (chronic obstructive pulmonary disease) 496 ; Bug bite without infection 919.4 and Left upper quadrant pain 789.02 [place] [address] [place] [address] 31770- 0611 16 May, 2015 Right lower quadrant abdominal pain 789.03 [place] [address] [place] [id number] [place] [address] 10482- 5815 10 May, 2015 [place] [address] [place] [id number] [place] [address] 04270- 1962 Apr, [place] [address] [place] [address] [place] [address] 00450- 0229 Apr, Skin infection 686.9 [place] [address] [place] [id number] [place] [address] 35645- 1215 Apr, Diabetes mellitus type 2, uncontrolled 250.02 ; Bipolar disorder 296.80 ; Hyperlipidemia 272.4 ; COPD (chronic obstructive pulmonary disease) 496 ; Sleep apnea in adult 327.23 and Routine adult health maintenance V70.0 [place] [address] [place] [address] 52087- 6308 Apr, Bipolar disorder 296.80 IMMUNIZATIONS No Known Immunizations SOCIAL HISTORY Never Assessed REASON FOR VISIT flu symptoms: nausea and vomiting since Friday, [facility] has had fever of 102 aburk, rn, C/O severe headache. States went to ER on Friday, tested negative for Strep and flu. PLAN OF CARE Activity Details Follow Up prn Reason: VITAL SIGNS Height 69 in 2017-09-16 Temperature 98.3 degrees Fahrenheit 2017-09-16 Heart Rate 88 bpm 2017-09-16 Respiratory Rate 24 2017-09-16 Blood pressure systolic 120 mmHg 2017-09-16 Blood pressure diastolic 74 mmHg 2017-09-16 MEDICATIONS Medication Instructions Dosage Frequency Start Date End Date Duration Status Prozac 40 mg Orally Once a day 1 capsule in the morning 24h 90 days Active Meloxicam 7.5 MG Orally Once a day 1 tablet 24h Apr, Oct, 90 days Not-Taking Promethazine HCl 6.25 MG/5ML Orally 3 times a day 10 ml as needed 8h AugAug, 05 days Active Zyrtec Allergy 10 mg Orally Once a day 1 tablet 24h Jul, Aug, 30 day(s) Active Flonase Allergy Relief 50 MCG/ACT Nasally Once a day 1 spray in each nostril 24h Active Fluoxetine HCl 40 TAKE ONE CAPSULE BY MOUTH EVERY MORNING 30 Active Albuterol Sulfate (2.5 MG/3ML) 0.083% Inhalation Three times a day 3 ml 8h Active Albuterol Sulfate 108 (90 Base) MCG/ACT Inhalation every 4 hrs 2 puff as needed 4h Active Breo Ellipta 100-25 MCG/INH Inhalation Once a day 1 puff 24h Active Omeprazole 40 mg Orally Once a day 1 capsule 24h Active Glucocard Expression Test - In Vitro 2 times a day as directed 12h Apr, Not-Taking Lipitor 10 mg Orally Once a day 1 tablet 24h Active Metformin HCl 1000 MG Orally twice a day 1 tablet 12h 30 days Active RESULTS No Results PROCEDURES Procedure Date Ordered Result Body Site [facility] VISIT ESTABLISHED PATIENT Sep 16, 2017 INSTRUCTIONS MEDICATIONS ADMINISTERED No Known Medications [...]
--- OUTSIDE RECORDS SUMMARY | 2018-05-06 10:11 | XMS REPORT ---
Author Author NICKY THOMPSON Organization [facility] Address [address] [place] [address] Care Team Providers Care Direct Mail Marketer Name Role Phone NICKY THOMPSON Unavailable PROBLEMS Type Condition ICD9-CM Code [id number] Code Onset Dates Condition Status SNOMED Code Problem Cardiomegaly I51.7 Active 3939066 Problem 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 Active 06959936 Problem 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.33 Active 85348442 Problem Chronic bronchitis, unspecified chronic bronchitis type J42 Active 12102478 Problem BMI 40.0-44.9, adult Z68.41 Active 718532449 Problem Type 2 diabetes mellitus with hyperglycemia E11.65 Active 916783916929941 Problem S/P cholecystectomy Z90.49 Active 693420828 Problem Other chronic pain G89.29 Active 11297393 Problem Seasonal allergic rhinitis, unspecified allergic rhinitis trigger J30.2 Active 893610028 ALLERGIES No Information ENCOUNTERS Encounter Location Date Diagnosis [place] [id number] [place] [address] 58621- 2402 Mar, Medicare annual wellness visit, initial Z00.00 [place] [address] [address] [place] [address] 71524- 5569 Dec, [facility] [address] [place] [id number] [place] [address] 86962- 1690 02 Dec, 2017 Type 2 diabetes mellitus with hyperglycemia E11.65 ; Non- insulin dependent type 2 diabetes mellitus E11.9 ; BMI 40.0-44.9, adult Z68.41 ; Chronic bronchitis, unspecified chronic bronchitis type J42 ; Muscle cramp R25.2 and Incisional hernia, without obstruction or gangrene K43.2 [place] [address] [place] [address] 13542- 5898 Nov, [facility] IN [address] [place] [address] 37491 -6981 Nov, Abdominal pain, unspecified abdominal location R10.9 ; Constipation, unspecified constipation type K59.00 and BMI 40.0-44.9, adult Z68.41 [place] [id number] [place] [address] 00383- 1331 Nov, [place] [address] 68285- 6015 Oct, [place] [address] 05408- 4254 Oct, [address] 43320- 2118 Oct, Breast pain, left N64.4 and BMI 40.0-44.9, adult Z68.41 [facility] WALK [place] [id number] [place] [address] 80182 -6585 Sep, BMI 40.0-44.9, adult Z68.41 and Multiple wounds of skin R23.8 [facility] IN [place] [id number] [place] [address] 65725 -2571 Sep, Body aches R52 ; Dysuria R30.0 and Viral URI J06.9 [place] [id number] [place] [address] 76726- 5859 Aug, Nausea R11.0 ; Other viral agents as the cause of diseases classified elsewhere B97.89 and Acute upper respiratory infection, unspecified J06.9 [place] [id number] [place] [address] 56311- 5987 Aug, [place] [id number] [place] [address] 45481- 0334 Aug, [facility] IN [place] [id number] [place] [address] 94909 -5045 Jul, Sore throat J02.9 and BMI 40.0-44.9, adult Z68.41 [place] [address] [address] [place] [id number] [place] [address] 27100- 4242 Jun, Herniation through surgical site K43.2 ; Leg numbness R20.0 ; Acute pain of left knee M25.562 ; Fall, initial encounter W19.XXXA ; Non- insulin dependent type 2 diabetes mellitus E11.9 ; Morbid obesity, unspecified obesity type E66.01 ; Other chronic pain G89.29 and Unspecified abdominal pain R10.9 [facility] [place] [address] [address] [place] [id number] [place] [address] 18172 -8441 Jun, Muscle strain of left shoulder, initial encounter S46.912A [place] [address] [place] [id number] [place] [address] 04308- 3414 May, [place] [address] [place] [id number] [place] [address] 06505- 6268 May, [facility] [place] [address] [address] [place] [id number] [place] [address] 92242 -4065 May, Acute pain of right knee M25.561 and Right knee sprain S83.91XA [place] [address] [place] [id number] [place] [address] 77823- 2254 Apr, [place] [address] [place] [id number] [place] [address] 74158- 7493 Apr, [place] [address] [place] [id number] [place] [address] 67006- 5702 Apr, 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 ; Morbid obesity, unspecified obesity type E66.01 ; Acute exacerbation of chronic obstructive pulmonary disease (COPD) J44.1 ; Pain in right knee M25.561 ; Screening for breast cancer Z12.31 and Generalized anxiety disorder F41.1 [place] [address] [place] [id number] [place] [address] 09630- 9589 Mar, [facility] [address] 10690 -7283 Mar, Dysuria R30.0 and Acute cystitis without hematuria N30.00 [facility] [address] [place] [id number] [place] [address] 54791 -3251 Feb, [facility] [place] [address] 66702 -0085 Feb, Muscle cramps R25.2 and Seasonal allergic rhinitis, unspecified allergic rhinitis trigger J30.2 [place] [address] 37957- 0077 January, [place] [address] 63565- 3179 January, Generalized anxiety disorder F41.1 [facility]ALK [place] [address] 22582 -5890 January, Acute exacerbation of chronic obstructive pulmonary disease (COPD) J44.1 [facility] [place] [address] 17471 -4303 Dec, Cramps, muscle, general R25.2 [place] [address] 48165- 0746 Dec, [place] [address] 16982- 7826 Nov, Type 2 diabetes mellitus with hyperglycemia E11.65 and Non- insulin dependent type 2 diabetes mellitus E11.9 [place] [address] [place] [id number] [place] [address] 77159- 0561 Oct, Generalized anxiety disorder F41.1 [facility] [place] [address] 17668 -5625 Oct, Vaginal candidiasis B37.3 [place] [address] 21495- 8414 Oct, Right upper quadrant abdominal pain R10.11 and S/P cholecystectomy Z90.49 [place] [address] 01363- 2265 Sep, Sore throat J02.9 and Right lower quadrant pain R10.31 [place] [address] 15134- 5497 Sep, Generalized anxiety disorder F41.1 [place] [address] 23772- 1265 Sep, [place] [address] 51376- 3271 Sep, [place] [address] 47597- 3687 Sep, Chest pain, unspecified type R07.9 ; Left lower quadrant pain R10.32 and Other acute postprocedural pain G89.18 [place] [address] 98803- 3192 Sep, Fever in other diseases R50.81 ; Acute non-recurrent maxillary sinusitis J01.00 and Cough R05 [place] [address] 22526- 4985 Sep, [facility] [place] [address] 47260 -5446 Sep, Dysuria R30.0 ; Sore throat J02.9 ; Chest pain, unspecified type R07.9 and Female genital lesion N94.9 [place] [address] 65662- 2170 Aug, Drug-induced constipation K59.03 ; Left arm pain M79.602 and S/P cholecystectomy Z90.49 [facility] [address] 52260 -7841 Aug, Sore throat J02.9 and Strep pharyngitis J02.0 [place] [address] 40655- 1363 Aug, [facility] [address] [place] [id number] [place] [address] 05445- 8499 13 Aug, 2016 [place] [address] 97646- 5552 Aug, [place] [address] 91513- 6333 Jul, [place] [address] 10818- 6177 Jul, Type 2 diabetes mellitus with hyperglycemia E11.65 ; 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.33 ; Morbid obesity, unspecified obesity type E66.01 and Right upper quadrant abdominal pain R10.11 [facility] IN [place] [address] [address] [place] [id number] [place] [address] 72921 -7583 Jul, Dysuria R30.0 ; Shortness of breath R06.02 ; Cardiomegaly I51.7 and COPD exacerbation J44.1 [place] [id number] [place] [address] 92142- 9106 Jul, Bipolar disorder, unspecified F31.9 and Generalized anxiety disorder F41.1 [place] [address] [place] [address] 12938- 3218 Jun, [place] [address] [place] [address] 88568- 3808 16 Jun, 2015 Sleep apnea, unspecified sleep apnea type G47.30 [place] [address] [place] [address] 21245- 1087 Jun, Bipolar disorder, unspecified F31.9 and Generalized anxiety disorder F41.1 [place] [address] 89237- 9887 28 May, 2015 Right lower quadrant abdominal pain 789.03 ; Diabetes mellitus type 2, uncontrolled 250.02 ; Bipolar disorder 296.80 ; COPD (chronic obstructive pulmonary disease) 496 ; Bug bite without infection 919.4 and Left upper quadrant pain 789.02 [place] [address] [address]- 0397 16 May, 2015 Right lower quadrant abdominal pain 789.03 [facility] [address] [address]- 0582 10 May, 2015 [facility] [address] [address]- 7794 31 Apr, 2015 [facility] [address] [address]- 9544 Apr, Skin infection 686.9 [place] [address] [address]- 0423 Apr, Bipolar disorder 296.80 ; Diabetes mellitus type 2, uncontrolled 250.02 ; Hyperlipidemia 272.4 ; COPD (chronic obstructive pulmonary disease) 496 ; Sleep apnea in adult 327.23 and Routine adult health maintenance V70.0 [place] [address] [address]- 2949 Apr, Bipolar disorder 296.80 IMMUNIZATIONS No Known Immunizations SOCIAL HISTORY Never Assessed REASON FOR VISIT request referal PLAN OF CARE VITAL SIGNS MEDICATIONS Unknown [...]
--- OUTSIDE RECORDS SUMMARY | 2018-05-06 10:11 | XMS REPORT ---
Author Author NICKY THOMPSON Organization [facility] [place] Address [address] [place] [address] Care Team Providers Care Store Host Name Role Phone NIKCY THOMPSON Unavailable PROBLEMS Type Condition ICD9-CM Code INN26-BN Code Onset Dates Condition Status SNOMED Code Problem Cardiomegaly I51.7 Active 0469193 Problem 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 Active 91942502 Problem 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.33 Active 35501028 Problem Chronic bronchitis, unspecified chronic bronchitis type J42 Active 88700157 Problem BMI 40.0-44.9, adult Z68.41 Active 399337192 Problem Type 2 diabetes mellitus with hyperglycemia E11.65 Active 366425268764094 Problem S/P cholecystectomy Z90.49 Active 515844303 Problem Other chronic pain G89.29 Active 68722389 Problem Seasonal allergic rhinitis, unspecified allergic rhinitis trigger J30.2 Active 361076565 ALLERGIES No Information ENCOUNTERS Encounter Location Date Diagnosis [place] [id number] [place] [address] 61277- 6742 Mar, Medicare annual wellness visit, initial Z00.00 [place] [id number] [place] [address] 22732- 3820 Dec, [facility] [place] [address] [place] [id number] [place] [address] 42543- 5301 02 Dec, 2017 Type 2 diabetes mellitus with hyperglycemia E11.65 ; Non- insulin dependent type 2 diabetes mellitus E11.9 ; BMI 40.0-44.9, adult Z68.41 ; Chronic bronchitis, unspecified chronic bronchitis type J42 ; Muscle cramp R25.2 and Incisional hernia, without obstruction or gangrene K43.2 [place] [address] [place] [address] 31717- 9928 Nov, [facility] [place] [address] [place] [address] 03953 -0298 Nov, Abdominal pain, unspecified abdominal location R10.9 ; Constipation, unspecified constipation type K59.00 and BMI 40.0-44.9, adult Z68.41 [place] [id number] [place] [address] 29010- 8511 Nov, [place] [address] 66999- 4692 Oct, [place] [address] 44978- 5114 Oct, [address] 61598- 2109 Oct, Breast pain, left N64.4 and BMI 40.0-44.9, adult Z68.41 [facility] [place] [id number] [place] [address] 88478 -5811 Sep, BMI 40.0-44.9, adult Z68.41 and Multiple wounds of skin R23.8 [facility] [place] [id number] [place] [address] 67826 -9792 Sep, Body aches R52 ; Dysuria R30.0 and Viral URI J06.9 [place] [id number] [place] [address] 10030- 6888 Aug, Nausea R11.0 ; Other viral agents as the cause of diseases classified elsewhere B97.89 and Acute upper respiratory infection, unspecified J06.9 [place] [id number] [place] [address] 68325- 0372 Aug, [place] [id number] [place] [address] 32917- 3338 Aug, [facility] [place] [id number] [place] [address] 09826 -2947 Jul, Sore throat J02.9 and BMI 40.0-44.9, adult Z68.41 [place] [address] [place] [id number] [place] [address] 82067- 9056 Jun, Herniation through surgical site K43.2 ; Leg numbness R20.0 ; Acute pain of left knee M25.562 ; Fall, initial encounter W19.XXXA ; Non- insulin dependent type 2 diabetes mellitus E11.9 ; Morbid obesity, unspecified obesity type E66.01 ; Other chronic pain G89.29 and Unspecified abdominal pain R10.9 [facility] [place] [address] [place] [id number] [place] [address] 46911 -9299 Jun, Muscle strain of left shoulder, initial encounter S46.912A [place] [address] [place] [id number] [place] [address] 72494- 6732 May, [place] [address] [place] [id number] [place] [address] 42019- 3468 May, [facility] [place] [address] [place] [id number] [place] [address] 75383 -2216 May, Acute pain of right knee M25.561 and Right knee sprain S83.91XA [place] [address] [place] [id number] [place] [address] 40626- 4153 Apr, [place] [address] [place] [id number] [place] [address] 09365- 6350 Apr, [place] [address] [place] [id number] [place] [address] 74195- 0511 Apr, 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 ; Morbid obesity, unspecified obesity type E66.01 ; Acute exacerbation of chronic obstructive pulmonary disease (COPD) J44.1 ; Pain in right knee M25.561 ; Screening for breast cancer Z12.31 and Generalized anxiety disorder F41.1 [place] [address] [place] [id number] [place] [address] 77278- 1490 Mar, [facility] [address] 71136 -7974 Mar, Dysuria R30.0 and Acute cystitis without hematuria N30.00 [facility] [address] [place] [id number] [place] [address] 44934 -2057 Feb, [facility] [place] [address] 40170 -1524 Feb, Muscle cramps R25.2 and Seasonal allergic rhinitis, unspecified allergic rhinitis trigger J30.2 [place] [address] 79377- 6616 January, [place] [address] 84089- 2136 January, Generalized anxiety disorder F41.1 [facility] [place] [address] 56004 -9428 January, Acute exacerbation of chronic obstructive pulmonary disease (COPD) J44.1 [facility] [place] [address] 25514 -6328 Dec, Cramps, muscle, general R25.2 [place] [address] 13501- 6163 Dec, [place] [address] 16220- 0337 Nov, Type 2 diabetes mellitus with hyperglycemia E11.65 and Non- insulin dependent type 2 diabetes mellitus E11.9 [place] [address] [place] [id number] [place] [address] 48778- 7771 Oct, Generalized anxiety disorder F41.1 [facility] [place] [address] 64137 -3879 Oct, Vaginal candidiasis B37.3 [place] [address] 79554- 8238 Oct, Right upper quadrant abdominal pain R10.11 and S/P cholecystectomy Z90.49 [place] [address] 20807- 1865 Sep, Sore throat J02.9 and Right lower quadrant pain R10.31 [place] [address] 35139- 8098 Sep, Generalized anxiety disorder F41.1 [place] [address] 64750- 1755 Sep, [place] [address] 55192- 0408 Sep, [place] [address] 07645- 0427 Sep, Chest pain, unspecified type R07.9 ; Left lower quadrant pain R10.32 and Other acute postprocedural pain G89.18 [place] [address] 16686- 4597 Sep, Fever in other diseases R50.81 ; Acute non-recurrent maxillary sinusitis J01.00 and Cough R05 [place] [address] 45217- 1349 Sep, [facility] [place] [address] 46727 -3948 Sep, Dysuria R30.0 ; Sore throat J02.9 ; Chest pain, unspecified type R07.9 and Female genital lesion N94.9 [place] [address] 70442- 5993 Aug, Drug-induced constipation K59.03 ; Left arm pain M79.602 and S/P cholecystectomy Z90.49 [facility] [address] 20869 -5620 Aug, Sore throat J02.9 and Strep pharyngitis J02.0 [place] [address] 39933- 8692 Aug, [facility] [place] [address] [place] [id number] [place] [address] 54998- 8483 13 Aug, 2016 [place] [address] 28366- 3788 Aug, [place] [address] 09302- 4546 Jul, [place] [address] 52196- 1292 Jul, Type 2 diabetes mellitus with hyperglycemia E11.65 ; 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.33 ; Morbid obesity, unspecified obesity type E66.01 and Right upper quadrant abdominal pain R10.11 [facility] [place] [address] [place] [id number] [place] [address] 15377 -8912 Jul, Dysuria R30.0 ; Shortness of breath R06.02 ; Cardiomegaly I51.7 and COPD exacerbation J44.1 [place] [id number] [place] [address] 70005- 2657 Jul, Bipolar disorder, unspecified F31.9 and Generalized anxiety disorder F41.1 [place] [id number] [place] [address] 22932- 2598 Jun, [place] [id number] [place] [address] 47258- 3579 16 Jun, 2015 Sleep apnea, unspecified sleep apnea type G47.30 [place] [id number] [place] [address] 34112- 9871 Jun, Bipolar disorder, unspecified F31.9 and Generalized anxiety disorder F41.1 [place] [address] 64426- 2992 28 May, 2015 Right lower quadrant abdominal pain 789.03 ; Diabetes mellitus type 2, uncontrolled 250.02 ; Bipolar disorder 296.80 ; COPD (chronic obstructive pulmonary disease) 496 ; Bug bite without infection 919.4 and Left upper quadrant pain 789.02 [place] [address] [address]- 7964 16 May, 2015 Right lower quadrant abdominal pain 789.03 [facility] [place] [address] [address]- 5381 10 May, 2015 [facility] [place] [address] [address]- 0079 31 Apr, 2015 [facility] [place] [address] [address]- 5355 Apr, Skin infection 686.9 [place] [address] [address]- 3653 Apr, Diabetes mellitus type 2, uncontrolled 250.02 ; Bipolar disorder 296.80 ; Hyperlipidemia 272.4 ; COPD (chronic obstructive pulmonary disease) 496 ; Sleep apnea in adult 327.23 and Routine adult health maintenance V70.0 [place] [address] [address]- 8646 Apr, Bipolar disorder 296.80 IMMUNIZATIONS No Known Immunizations SOCIAL HISTORY Never Assessed REASON FOR VISIT 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
--- OUTSIDE RECORDS SUMMARY | 2018-05-06 10:11 | XMS REPORT ---
Author Author SARMAD MCKNIGHT [facility] IN [facility] Address [address] [place] [address] Care Team Providers Care General Handling Supervisor Name Role Phone SARMAD MCKNIGHT Unavailable PROBLEMS Type Condition ICD9-CM Code TMA82-VM Code Onset Dates Condition Status SNOMED Code Problem Cardiomegaly I51.7 Active 5713766 Problem 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 Active 65599448 Problem 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.33 Active 82028080 Problem Chronic bronchitis, unspecified chronic bronchitis type J42 Active 29695582 Problem BMI 40.0-44.9, adult Z68.41 Active 302950863 Problem Type 2 diabetes mellitus with hyperglycemia E11.65 Active 304324106117312 Problem S/P cholecystectomy Z90.49 Active 269979215 Problem Other chronic pain G89.29 Active 99337978 Problem Seasonal allergic rhinitis, unspecified allergic rhinitis trigger J30.2 Active 154432968 ALLERGIES Substance Reaction Event Type Date Status Penicillin V Potassium Unknown Drug Allergy Jun, Active Doxycycline Hyclate hives Drug Allergy Jun, Active IV contrast dye Unknown Non Drug Allergy Jun, Active ENCOUNTERS Encounter Location Date Diagnosis [place] [address] [address] January, Medicare annual wellness visit, initial Z00.00 [facility] [address] [place] [address] 32648- 0480 Dec, [place] [address] [place] [id number] [place] [address] 51160- 1044 Dec, Type 2 diabetes mellitus with hyperglycemia E11.65 ; Non- insulin dependent type 2 diabetes mellitus E11.9 ; BMI 40.0-44.9, adult Z68.41 ; Chronic bronchitis, unspecified chronic bronchitis type J42 ; Muscle cramp R25.2 and Incisional hernia, without obstruction or gangrene K43.2 [place] [address] [place] [id number] [place] [address] 16674- 3223 Nov, [facility] [place] [address] [place] [id number] [place] [address] 57616 -7762 Nov, Abdominal pain, unspecified abdominal location R10.9 ; Constipation, unspecified constipation type K59.00 and BMI 40.0-44.9, adult Z68.41 [place] [address] 55481- 8651 Nov, [place] [address] 41810- 7793 16 Oct, 2017 [place] [address] 97496- 2481 Oct, [place] [address] 16183- 6445 05 Oct, 2017 Breast pain, left N64.4 and BMI 40.0-44.9, adult Z68.41 [facility] [place] [id number] [place] [address] 11156 -0628 22 Sep, 2017 BMI 40.0-44.9, adult Z68.41 and Multiple wounds of skin R23.8 [facility] [place] [id number] [place] [address] 66736 -7713 Sep, Body aches R52 ; Dysuria R30.0 and Viral URI J06.9 [place] [address] [place] [id number] [place] [address] 61254- 7261 Aug, Nausea R11.0 ; Other viral agents as the cause of diseases classified elsewhere B97.89 and Acute upper respiratory infection, unspecified J06.9 [place] [address] [place] [id number] [place] [address] 29193- 7700 Aug, [place] [address] 17183- 2292 Aug, [facility] [address] [place] [address] [address]9493 Jul, Sore throat J02.9 and BMI 40.0-44.9, adult Z68.41 [place] [address] [place] [id number] [place] [address] 51050- 1410 Jun, Herniation through surgical site K43.2 ; Leg numbness R20.0 ; Acute pain of left knee M25.562 ; Fall, initial encounter W19.XXXA ; Non- insulin dependent type 2 diabetes mellitus E11.9 ; Morbid obesity, unspecified obesity type E66.01 ; Other chronic pain G89.29 and Unspecified abdominal pain R10.9 [facility] [place] [address] [place] [id number] [place] [address] 78834 -0995 Jun, Muscle strain of left shoulder, initial encounter S46.912A [place] [address] [place] [id number] [place] [address] 64223- 1334 May, [place] [address] [place] [id number] [place] [address] 31710- 9197 07 May, 2017 [facility] [place] [address] [place] [id number] [place] [address] 35474 -9332 05 May, 2017 Acute pain of right knee M25.561 and Right knee sprain S83.91XA [place] [address] [place] [id number] [place] [address] 83538- 8969 Apr, [place] [address] [place] [id number] [place] [address] 57142- 9599 Apr, [place] [address] [place] [id number] [place] [address] 06624- 0592 Apr, 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 ; Morbid obesity, unspecified obesity type E66.01 ; Acute exacerbation of chronic obstructive pulmonary disease (COPD) J44.1 ; Pain in right knee M25.561 ; Screening for breast cancer Z12.31 and Generalized anxiety disorder F41.1 [place] [address] [place] [address]- 4953 Mar, [facility] [address] 22531 -3252 Mar, Dysuria R30.0 and Acute cystitis without hematuria N30.00 [facility] [address] 37741 -1221 Feb, [facility] [address] 63348 -3230 Feb, Muscle cramps R25.2 and Seasonal allergic rhinitis, unspecified allergic rhinitis trigger J30.2 [place] [address] 49921- 2328 January, [place] [address] 16069- 4585 January, Generalized anxiety disorder F41.1 [facility] [address] 01316 -0394 January, Acute exacerbation of chronic obstructive pulmonary disease (COPD) J44.1 [facility] [place] [address] 16116 -1073 Dec, Cramps, muscle, general R25.2 [place] [address] 51227- 2946 Dec, [place] [address] 29691- 0042 Nov, Type 2 diabetes mellitus with hyperglycemia E11.65 and Non- insulin dependent type 2 diabetes mellitus E11.9 [place] [address] 08326- 8102 Oct, Generalized anxiety disorder F41.1 [facility] [address] [place] [id number] [place] [address] 61940 -5094 Oct, Vaginal candidiasis B37.3 [place] [address] 84659- 4901 Oct, Right upper quadrant abdominal pain R10.11 and S/P cholecystectomy Z90.49 [place] [address] 77269- 8404 Sep, Sore throat J02.9 and Right lower quadrant pain R10.31 [place] [address] 98246- 9862 Sep, Generalized anxiety disorder F41.1 [place] [address] 62244- 9257 Sep, [place] [address] 35482- 5520 Sep, [place] [address] 93902- 8005 Sep, Chest pain, unspecified type R07.9 ; Left lower quadrant pain R10.32 and Other acute postprocedural pain G89.18 [place] [address] [place] [id number] [place] [address] 83084- 1279 Sep, Fever in other diseases R50.81 ; Acute non-recurrent maxillary sinusitis J01.00 and Cough R05 [place] [address] [place] [id number] [place] [address] 20917- 9824 Sep, [facility] [place] [address] [place] [id number] [place] [address] 68957 -3864 Sep, Dysuria R30.0 ; Sore throat J02.9 ; Chest pain, unspecified type R07.9 and Female genital lesion N94.9 [place] [address] [place] [id number] [place] [address] 94348- 0385 Aug, Drug-induced constipation K59.03 ; Left arm pain M79.602 and S/P cholecystectomy Z90.49 [facility] [address] [place] [id number] [place] [address] 92193 -5328 Aug, Sore throat J02.9 and Strep pharyngitis J02.0 [facility] [address] [place] [id number] [place] [address] 64054- 6326 14 Aug, 2016 [facility] [address] [place] [id number] [place] [address] 09583- 4217 13 Aug, 2016 [facility] [address] [place] [id number] [place] [address] 04126- 9807 Aug, [facility] [address] 72290- 0251 Jul, [facility] [address] [place] [id number] [place] [address] 74209- 0237 Jul, Type 2 diabetes mellitus with hyperglycemia E11.65 ; 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.33 ; Morbid obesity, unspecified obesity type E66.01 and Right upper quadrant abdominal pain R10.11 [facility] [address] [place] [id number] [place] [address] 55875 -0442 Jul, Dysuria R30.0 ; Shortness of breath R06.02 ; Cardiomegaly I51.7 and COPD exacerbation J44.1 [place] [address] [place] [id number] [place] [address] 42476- 1121 Jul, Bipolar disorder, unspecified F31.9 and Generalized anxiety disorder F41.1 [place] [address] [place] [id number] [place] [address] 21833- 6564 Jun, [place] [address] 63114- 5793 16 Jun, 2015 Sleep apnea, unspecified sleep apnea type G47.30 [place] [address] [place] [id number] [place] [address] 51962- 9226 Jun, Bipolar disorder, unspecified F31.9 and Generalized anxiety disorder F41.1 [facility] [address] [place] [id number] [place] [address] 18007- 0842 May, Right lower quadrant abdominal pain 789.03 ; Diabetes mellitus type 2, uncontrolled 250.02 ; Bipolar disorder 296.80 ; COPD (chronic obstructive pulmonary disease) 496 ; Bug bite without infection 919.4 and Left upper quadrant pain 789.02 [facility] [address] [place] [address] 31646- 2743 16 May, 2015 Right lower quadrant abdominal pain 789.03 [place] [address] [place] [id number] [place] [address] 06927- 7478 10 May, 2015 [place] [address] [place] [id number] [place] [address] 34227- 4590 Apr, [place] [address] [place] [id number] [place] [address] 94961- 5279 Apr, Skin infection 686.9 [place] [address] [place] [id number] [place] [address] 95710- 9458 Apr, Diabetes mellitus type 2, uncontrolled 250.02 ; Bipolar disorder 296.80 ; Hyperlipidemia 272.4 ; COPD (chronic obstructive pulmonary disease) 496 ; Sleep apnea in adult 327.23 and Routine adult health maintenance V70.0 [place] [address] [place] [id number] [place] [address] 85167- 4767 Apr, Bipolar disorder 296.80 IMMUNIZATIONS No Known Immunizations SOCIAL HISTORY Never Assessed REASON FOR VISIT possible pinched nerve PLAN OF CARE Activity Details Follow Up prn Reason: VITAL SIGNS Height 69 in 2017-07-06 Weight 277 lbs 2017-07-06 Temperature 98.0 degrees Fahrenheit 2017-07-06 Heart Rate 86 bpm 2017-07-06 Respiratory Rate 20 2017-07-06 Oximetry 97 % 2017-07-06 BMI 40.90 kg/m2 2017-07-06 Blood pressure systolic 120 mmHg 2017-07-06 Blood pressure diastolic 78 mmHg 2017-07-06 MEDICATIONS Medication Instructions Dosage Frequency Start Date End Date Duration Status Breo Ellipta 100-25 MCG/INH Inhalation Once a day 1 puff 24h Active Albuterol Sulfate 108 (90 Base) MCG/ACT Inhalation every 4 hrs 2 puff as needed 4h Active Prozac 40 mg Orally Once a day 1 capsule in the morning 24h 90 days Active Albuterol Sulfate (2.5 MG/3ML) 0.083% Inhalation Three times a day 3 ml 8h Active Metformin HCl 1000 MG Orally twice a day 1 tablet 12h 30 days Active Omeprazole 40 mg Orally Once a day 1 capsule 24h Active Lipitor 10 mg Orally Once a day 1 tablet 24h Active Flonase Allergy Relief 50 MCG/ACT Nasally Once a day 1 spray in each nostril 24h Active RESULTS No Results PROCEDURES Procedure Date Ordered Result Body Site MEASURE BLOOD OXYGEN LEVEL Jul 06, 2017 [facility] VISIT ESTABLISHED PATIENT Jul 06, 2017 INSTRUCTIONS MEDICATIONS ADMINISTERED No Known Medications [...]
--- OUTSIDE RECORDS SUMMARY | 2018-05-06 10:12 | XMS REPORT ---
Author Author NICKY THOMPSON Organization [facility] Address [address] [place] [address] Care Team Providers Care Catalyst Operator Chief Name Role Phone NICKY THOMPSON Unavailable PROBLEMS Type Condition ICD9-CM Code PLF27-TL Code Onset Dates Condition Status SNOMED Code Problem Cardiomegaly I51.7 Active 1524560 Problem 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 Active 98375797 Problem 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.33 Active 28352774 Problem Chronic bronchitis, unspecified chronic bronchitis type J42 Active 26839979 Problem BMI 40.0-44.9, adult Z68.41 Active 305482783 Problem Type 2 diabetes mellitus with hyperglycemia E11.65 Active 251548263952016 Problem S/P cholecystectomy Z90.49 Active 545463007 Problem Other chronic pain G89.29 Active 12257428 Problem Seasonal allergic rhinitis, unspecified allergic rhinitis trigger J30.2 Active 685213509 ALLERGIES Substance Reaction Event Type Date Status Penicillin V Potassium Unknown Drug Allergy Jun, Active Doxycycline Hyclate hives Drug Allergy Jun, Active IV contrast dye Unknown Non Drug Allergy Jun, Active ENCOUNTERS Encounter Location Date Diagnosis [place] [id number] [place] [address] 07378- 7248 January, Medicare annual wellness visit, initial Z00.00 [facility] [id number] [place] [address] 24547- 0339 Dec, [place] [address] [place] [id number] [place] [address] 34591- 6198 Dec, Type 2 diabetes mellitus with hyperglycemia E11.65 ; Non- insulin dependent type 2 diabetes mellitus E11.9 ; BMI 40.0-44.9, adult Z68.41 ; Chronic bronchitis, unspecified chronic bronchitis type J42 ; Muscle cramp R25.2 and Incisional hernia, without obstruction or gangrene K43.2 [place] [address] [place] [id number] [place] [address] 17032- 3969 Nov, [facility] [place] [address] [address] [place] [id number] [place] [address] 11520 -2237 Nov, Abdominal pain, unspecified abdominal location R10.9 ; Constipation, unspecified constipation type K59.00 and BMI 40.0-44.9, adult Z68.41 [place] [address] 27437- 2216 Nov, [place] [address] [place] [id number] [place] [address] 65192- 6097 Oct, [place] [address] 30927- 1325 Oct, [place] [address] 69086- 2475 05 Oct, 2017 Breast pain, left N64.4 and BMI 40.0-44.9, adult Z68.41 [facility] [place] [id number] [place] [address] 34833 -9926 22 Sep, 2017 BMI 40.0-44.9, adult Z68.41 and Multiple wounds of skin R23.8 [facility] [place] [id number] [place] [address] 72842 -1985 Sep, Body aches R52 ; Dysuria R30.0 and Viral URI J06.9 [place] [address] [place] [id number] [place] [address] 01579- 9380 Aug, Nausea R11.0 ; Other viral agents as the cause of diseases classified elsewhere B97.89 and Acute upper respiratory infection, unspecified J06.9 [place] [address] [place] [id number] [place] [address] 83769- 8607 Aug, [place] [address] [place] [id number] [place] [address] 36375- 1937 Aug, [facility] [id number] [place] [address] 58920 -7256 Jul, Sore throat J02.9 and BMI 40.0-44.9, adult Z68.41 [place] [address] [place] [id number] [place] [address] 72739- 2748 Jun, Herniation through surgical site K43.2 ; Leg numbness R20.0 ; Acute pain of left knee M25.562 ; Fall, initial encounter W19.XXXA ; Non- insulin dependent type 2 diabetes mellitus E11.9 ; Morbid obesity, unspecified obesity type E66.01 ; Other chronic pain G89.29 and Unspecified abdominal pain R10.9 [facility] [address] [place] [id number] [place] [address] 72993 -6577 Jun, Muscle strain of left shoulder, initial encounter S46.912A [place] [address] [place] [id number] [place] [address] 60493- 2013 May, [place] [address] [place] [id number] [place] [address] 23858- 2944 07 May, 2017 [facility] [address] [place] [id number] [place] [address] 02069 -6780 05 May, 2017 Acute pain of right knee M25.561 and Right knee sprain S83.91XA [place] [address] [place] [id number] [place] [address] 24956- 8686 Apr, [place] [address] [place] [id number] [place] [address] 68942- 8320 Apr, [place] [address] [place] [id number] [place] [address] 98503- 9682 Apr, 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 ; Morbid obesity, unspecified obesity type E66.01 ; Acute exacerbation of chronic obstructive pulmonary disease (COPD) J44.1 ; Pain in right knee M25.561 ; Screening for breast cancer Z12.31 and Generalized anxiety disorder F41.1 [place] [address] [place] [address] Mar, [facility]note 3[facility] [address] 18733 [address] Mar, Dysuria R30.0 and Acute cystitis without hematuria N30.00 [facility] [address] 97332 -3425 Feb, [facility]note 3[facility] [address] 96606 [address]8335 Feb, Muscle cramps R25.2 and Seasonal allergic rhinitis, unspecified allergic rhinitis trigger J30.2 [place] [address] 72514- 7306 January, [place] [address] 80024- 8888 January, Generalized anxiety disorder F41.1 [facility] [address] [place] [address] 89149 -9702 January, Acute exacerbation of chronic obstructive pulmonary disease (COPD) J44.1 [facility] [place] [address] 35889 -4998 Dec, Cramps, muscle, general R25.2 [place] [address] [place] [id number] [place] [address] 12528- 1962 Dec, [place] [address] 36249- 4957 Nov, Type 2 diabetes mellitus with hyperglycemia E11.65 and Non- insulin dependent type 2 diabetes mellitus E11.9 [place] [address] 65130- 6023 Oct, Generalized anxiety disorder F41.1 [facility]note 3[facility] [address] [place] [id number] [place] [address] 66319 -3901 Oct, Vaginal candidiasis B37.3 [place] [address] 30316- 2495 Oct, Right upper quadrant abdominal pain R10.11 and S/P cholecystectomy Z90.49 [place] [address] 27435- 6470 Sep, Sore throat J02.9 and Right lower quadrant pain R10.31 [place] [address] 75083- 1385 Sep, Generalized anxiety disorder F41.1 [place] [address] 63147- 9092 Sep, [place] [address] 38019- 3328 Sep, [place] [address] 04285- 7771 Sep, Chest pain, unspecified type R07.9 ; Left lower quadrant pain R10.32 and Other acute postprocedural pain G89.18 [place] [address] [place] [id number] [place] [address] 93860- 5024 Sep, Fever in other diseases R50.81 ; Acute non-recurrent maxillary sinusitis J01.00 and Cough R05 [place] [address] [place] [id number] [place] [address] 88713- 1309 Sep, [facility] [place] [address] [address] [place] [id number] [place] [address] 06079 -6700 Sep, Dysuria R30.0 ; Sore throat J02.9 ; Chest pain, unspecified type R07.9 and Female genital lesion N94.9 [place] [address] [place] [id number] [place] [address] 27691- 3044 Aug, Drug-induced constipation K59.03 ; Left arm pain M79.602 and S/P cholecystectomy Z90.49 [facility] [address] [place] [id number] [place] [address] 69583 -3675 Aug, Sore throat J02.9 and Strep pharyngitis J02.0 [facility] [address] [place] [id number] [place] [address] 96273- 7718 14 Aug, 2016 [facility] [address] 24217- 3047 13 Aug, 2016 [facility] [address] 85559- 9640 Aug, [facility] [address] 74640- 4015 Jul, [facility] [address] 38216- 9114 Jul, Type 2 diabetes mellitus with hyperglycemia E11.65 ; 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.33 ; Morbid obesity, unspecified obesity type E66.01 and Right upper quadrant abdominal pain R10.11 [facility] [address] 26463 -2824 Jul, Dysuria R30.0 ; Shortness of breath R06.02 ; Cardiomegaly I51.7 and COPD exacerbation J44.1 [place] [address] 02449- 7457 Jul, Bipolar disorder, unspecified F31.9 and Generalized anxiety disorder F41.1 [place] [address] [place] [id number] [place] [address] 92202- 8075 Jun, [place] [address] 95477- 4211 16 Jun, 2015 Sleep apnea, unspecified sleep apnea type G47.30 [facility] [address] 35645- 8615 Jun, Bipolar disorder, unspecified F31.9 and Generalized anxiety disorder F41.1 [facility] [address] [place] [id number] [place] [address] 80383- 8155 28 May, 2015 Right lower quadrant abdominal pain 789.03 ; Diabetes mellitus type 2, uncontrolled 250.02 ; Bipolar disorder 296.80 ; COPD (chronic obstructive pulmonary disease) 496 ; Bug bite without infection 919.4 and Left upper quadrant pain 789.02 [place] [address] [place] [address] 30602- 5430 16 May, 2015 Right lower quadrant abdominal pain 789.03 [place] [address] [place] [id number] [place] [address] 72785- 4174 10 May, 2015 [place] [address] 81127- 5446 Apr, [place] [address] 61792- 4659 Apr, Skin infection 686.9 [place] [address] 07959- 4812 Apr, Diabetes mellitus type 2, uncontrolled 250.02 ; Bipolar disorder 296.80 ; Hyperlipidemia 272.4 ; COPD (chronic obstructive pulmonary disease) 496 ; Sleep apnea in adult 327.23 and Routine adult health maintenance V70.0 [place] [address] [place] [id number] [place] [address] 84593- 9366 Apr, Bipolar disorder 296.80 IMMUNIZATIONS No Known Immunizations SOCIAL HISTORY Never Assessed REASON FOR VISIT foot pain--tcuppettRN, -Upper abdominal sharp pains and reports acid reflux like burning. , -Bilateral leg pain that is constant with burning/tingling PLAN OF CARE Activity Details Follow Up 3 Months with Kenzie for DM f.u Reason: VITAL SIGNS Height 69 in 2017-07-22 Weight 278 lbs 2017-07-22 Temperature 97.7 degrees Fahrenheit 2017-07-22 Heart Rate 84 bpm 2017-07-22 Respiratory Rate 20 2017-07-22 BMI 41.05 kg/m2 2017-07-22 Blood pressure systolic 130 mmHg 2017-07-22 Blood pressure diastolic 78 mmHg 2017-07-22 MEDICATIONS Medication Instructions Dosage Frequency Start Date End Date Duration Status Albuterol Sulfate 108 (90 Base) MCG/ACT Inhalation every 4 hrs 2 puff as needed 4h Active Bentyl 10 mg Orally Four times a day 1 tablet 6h Jun, Jul, 30 day(s) Active Prozac 40 mg Orally Once a day 1 capsule in the morning 24h 90 days Active Omeprazole 40 mg Orally Once a day 1 capsule 24h Active Metformin HCl 1000 MG Orally twice a day 1 tablet 12h 30 days Active Flonase Allergy Relief 50 MCG/ACT Nasally Once a day 1 spray in each nostril 24h Active Lipitor 10 mg Orally Once a day 1 tablet 24h Active Breo Ellipta 100-25 MCG/INH Inhalation Once a day 1 puff 24h Active Albuterol Sulfate (2.5 MG/3ML) 0.083% Inhalation Three times a day 3 ml 8h Active RESULTS Name Result Date Reference Range MICROALBUMIN/CREATININE RATIO, URINE 2017-07-22 Creatinine, Urine 207.5 Not Estab. Microalbumin, Urine 19.3 Not Estab. Microalb/Creat Ratio 9.3 0.0-30.0 CMP 2017-07-22 Glucose, Serum 96 65-99 BUN 10 6-24 Creatinine, Serum 0.75 0.57-1.00 eGFR If NonAfricn Am 91 >59 eGFR If Africn Am 105 >59 BUN/Creatinine Ratio 13 9-23 Sodium, Serum 139 134-144 Potassium, Serum 4.0 3.5-5.2 Chloride, Serum 98 96-106 Carbon Dioxide, Total 22 18-29 Calcium, Serum 9.6 8.7-10.2 Protein, Total, Serum 7.3 6.0-8.5 Albumin, Serum 4.2 3.5-5.5 Globulin, Total 3.1 1.5-4.5 A/G Ratio 1.4 1.2-2.2 Bilirubin, Total 0.3 0.0-1.2 Alkaline Phosphatase, S 103 39-117 AST (SGOT) 18 0-40 ALT (SGPT) 25 0-32 CBC 2017-07-22 WBC 8.9 3.4-10.8 RBC 4.65 3.77-5.28 Hemoglobin 12.6 11.1-15.9 Hematocrit 37.0 34.0-46.6 MCV 80 79-97 MCH 27.1 26.6-33.0 MCHC 34.1 31.5-35.7 RDW 14.3 12.3-15.4 Platelets 230 150-379 Neutrophils 66 Not Estab. Lymphs 28 Not Estab. Monocytes 5 Not Estab. Eos 1 Not Estab. Basos 0 Not Estab. Neutrophils (Absolute) 5.8 1.4-7.0 Lymphs (Absolute) 2.5 0.7-3.1 Monocytes(Absolute) 0.5 0.1-0.9 Eos (Absolute) 0.1 0.0-0.4 Baso (Absolute) 0.0 0.0-0.2 Immature Granulocytes 0 Not Estab. Immature Grans (Abs) 0.0 0.0-0.1 A1C 2017-07-22 Hemoglobin A1c 6.4 4.8-5.6 PROCEDURES Procedure Date Ordered Result Body Site LAB NOT BILLED BY [facility] Jul 22, 2017 Hemoglobin Test Send Out 0 dollar Jul 22, 2017 [facility] VISIT ESTABLISHED PATIENT Jul 22, 2017 VENIPUNCT, ROUTINE* Jul 22, 2017 INSTRUCTIONS MEDICATIONS ADMINISTERED No Known Medications [...]
--- OUTSIDE RECORDS SUMMARY | 2018-05-06 10:12 | XMS REPORT ---
Author Author SLY HARRIS [facility] Address [address] [place] [address] Care Team Providers Care Station Cleaning Porter Name Role Phone SLY HARRIS Unavailable PROBLEMS Type Condition ICD9-CM Code DII30-VA Code Onset Dates Condition Status SNOMED Code Problem Cardiomegaly I51.7 Active 1485462 Problem 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 Active 64726733 Problem 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.33 Active 59742848 Problem Chronic bronchitis, unspecified chronic bronchitis type J42 Active 41277584 Problem BMI 40.0-44.9, adult Z68.41 Active 880068140 Problem Type 2 diabetes mellitus with hyperglycemia E11.65 Active 143162979695554 Problem S/P cholecystectomy Z90.49 Active 552692009 Problem Other chronic pain G89.29 Active 80363078 Problem Seasonal allergic rhinitis, unspecified allergic rhinitis trigger J30.2 Active 832602056 ALLERGIES Substance Reaction Event Type Date Status Penicillin V Potassium Unknown Drug Allergy Sep, Active Doxycycline Hyclate hives Drug Allergy Sep, Active IV contrast dye Unknown Non Drug Allergy Sep, Active ENCOUNTERS Encounter Location Date Diagnosis [place] [address] [place] [id number] [place] [address] 08175- 7077 Mar, Medicare annual wellness visit, initial Z00.00 [place] [id number] [place] [address] 78818- 3172 Dec, [place] [address] [place] [id number] [place] [address] 06870- 2152 Dec, Type 2 diabetes mellitus with hyperglycemia E11.65 ; Non- insulin dependent type 2 diabetes mellitus E11.9 ; BMI 40.0-44.9, adult Z68.41 ; Chronic bronchitis, unspecified chronic bronchitis type J42 ; Muscle cramp R25.2 and Incisional hernia, without obstruction or gangrene K43.2 [place] [address] [place] [id number] [place] [address] 68177- 1119 Nov, [facility] [place] [address] [place] [id number] [place] [address] 35033 -3800 Nov, Abdominal pain, unspecified abdominal location R10.9 ; Constipation, unspecified constipation type K59.00 and BMI 40.0-44.9, adult Z68.41 [place] [address] 30704- 8866 Nov, [place] [address] 16188- 3875 Oct, [place] [address] 32375- 5626 08 Oct, 2017 [place] [address] 26101- 7432 05 Oct, 2017 Breast pain, left N64.4 and BMI 40.0-44.9, adult Z68.41 [facility] [address] 43307 -4181 Sep, BMI 40.0-44.9, adult Z68.41 and Multiple wounds of skin R23.8 [facility] [place] [id number] [place] [address] 20018 -3306 Sep, Body aches R52 ; Dysuria R30.0 and Viral URI J06.9 [place] [id number] [place] [address] 87471- 3946 Aug, Nausea R11.0 ; Other viral agents as the cause of diseases classified elsewhere B97.89 and Acute upper respiratory infection, unspecified J06.9 [place] [address] [place] [id number] [place] [address] 55277- 2305 Aug, [place] [address] 01638- 0306 Aug, [facility] [address] [address] Jul, Sore throat J02.9 and BMI 40.0-44.9, adult Z68.41 [place] [address] [place] [id number] [place] [address] 33553- 8537 Jun, Herniation through surgical site K43.2 ; Leg numbness R20.0 ; Acute pain of left knee M25.562 ; Fall, initial encounter W19.XXXA ; Non- insulin dependent type 2 diabetes mellitus E11.9 ; Morbid obesity, unspecified obesity type E66.01 ; Other chronic pain G89.29 and Unspecified abdominal pain R10.9 [facility] [place] [address] [place] [id number] [place] [address] 42303 -2535 Jun, Muscle strain of left shoulder, initial encounter S46.912A [place] [address] [place] [id number] [place] [address] 69329- 5468 May, [place] [address] [place] [id number] [place] [address] 60586- 3570 07 May, 2017 [facility] [place] [address] [place] [id number] [place] [address] 42108 -9179 05 May, 2017 Acute pain of right knee M25.561 and Right knee sprain S83.91XA [place] [address] [place] [id number] [place] [address] 20874- 2373 Apr, [place] [address] [place] [id number] [place] [address] 74308- 1399 Apr, [place] [address] [place] [id number] [place] [address] 93898- 5383 Apr, 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 ; Morbid obesity, unspecified obesity type E66.01 ; Acute exacerbation of chronic obstructive pulmonary disease (COPD) J44.1 ; Pain in right knee M25.561 ; Screening for breast cancer Z12.31 and Generalized anxiety disorder F41.1 [place] [address] [place] [id number] [place] [address] 58386- 7467 Mar, [facility] [address] [place] [id number] [place] [address] 49089 -7443 Mar, Dysuria R30.0 and Acute cystitis without hematuria N30.00 [facility] [address] [place] [id number] [place] [address] 47666 -7910 Feb, [facility] [place] [address] 62652 -5244 Feb, Muscle cramps R25.2 and Seasonal allergic rhinitis, unspecified allergic rhinitis trigger J30.2 [place] [address] 64325- 1997 January, [place] [address] [place] [id number] [place] [address] 77116- 5696 January, Generalized anxiety disorder F41.1 [facility] [place] [address] 66923 -1644 January, Acute exacerbation of chronic obstructive pulmonary disease (COPD) J44.1 [facility] [place] [address] [place] [id number] [place] [address] 75215 -6014 Dec, Cramps, muscle, general R25.2 [place] [address] [place] [id number] [place] [address] 75842- 1059 Dec, [place] [address] [place] [id number] [place] [address] 26624- 1649 Nov, Type 2 diabetes mellitus with hyperglycemia E11.65 and Non- insulin dependent type 2 diabetes mellitus E11.9 [place] [address] [place] [id number] [place] [address] 42157- 7617 Oct, Generalized anxiety disorder F41.1 [facility] [address] [place] [id number] [place] [address] 49265 -1733 Oct, Vaginal candidiasis B37.3 [place] [address] [place] [id number] [place] [address] 34745- 3010 Oct, Right upper quadrant abdominal pain R10.11 and S/P cholecystectomy Z90.49 [place] [address] 90680- 9053 Sep, Sore throat J02.9 and Right lower quadrant pain R10.31 [place] [address] 24580- 4024 Sep, Generalized anxiety disorder F41.1 [place] [address] 35227- 5781 Sep, [place] [address] 71805- 0436 Sep, [place] [address] 03739- 7175 Sep, Chest pain, unspecified type R07.9 ; Left lower quadrant pain R10.32 and Other acute postprocedural pain G89.18 [place] [address] 14127- 3893 Sep, Fever in other diseases R50.81 ; Acute non-recurrent maxillary sinusitis J01.00 and Cough R05 [place] [address] 21225- 1136 Sep, [facility] [place] [address] 31217 -8175 Sep, Dysuria R30.0 ; Sore throat J02.9 ; Chest pain, unspecified type R07.9 and Female genital lesion N94.9 [place] [address] 12030- 6374 Aug, Drug-induced constipation K59.03 ; Left arm pain M79.602 and S/P cholecystectomy Z90.49 [facility] [place] [address] 28331 -2417 Aug, Sore throat J02.9 and Strep pharyngitis J02.0 [facility] [address] [place] [id number] [place] [address] 32441- 8483 14 Aug, 2016 [facility] [address] 56983- 6307 Aug, [place] [address] 21711- 5737 Aug, [place] [address] 60654- 4315 Jul, [place] [address] 27572- 6459 Jul, Type 2 diabetes mellitus with hyperglycemia E11.65 ; 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.33 ; Morbid obesity, unspecified obesity type E66.01 and Right upper quadrant abdominal pain R10.11 [facility] [address] 06908 -9098 Jul, Dysuria R30.0 ; Shortness of breath R06.02 ; Cardiomegaly I51.7 and COPD exacerbation J44.1 [place] [address] 75995- 1611 Jul, Bipolar disorder, unspecified F31.9 and Generalized anxiety disorder F41.1 [place] [address] [place] [id number] [place] [address] 55301- 7644 Jun, [place] [address] 45883- 1863 Jun, Sleep apnea, unspecified sleep apnea type G47.30 [place] [address] 09014- 1262 Jun, Bipolar disorder, unspecified F31.9 and Generalized anxiety disorder F41.1 [facility] [address] 38646- 5972 May, Right lower quadrant abdominal pain 789.03 ; Diabetes mellitus type 2, uncontrolled 250.02 ; Bipolar disorder 296.80 ; COPD (chronic obstructive pulmonary disease) 496 ; Bug bite without infection 919.4 and Left upper quadrant pain 789.02 [place] [address] [place] [address] 87911- 4724 16 May, 2015 Right lower quadrant abdominal pain 789.03 [place] [address] [place] [id number] [place] [address] 55454- 7057 10 May, 2015 [place] [address] [place] [id number] [place] [address] 51504- 9171 Apr, [place] [address] [place] [id number] [place] [address] 09994- 8859 Apr, Skin infection 686.9 [place] [address] [place] [id number] [place] [address] 64311- 8526 Apr, Diabetes mellitus type 2, uncontrolled 250.02 ; Bipolar disorder 296.80 ; Hyperlipidemia 272.4 ; COPD (chronic obstructive pulmonary disease) 496 ; Sleep apnea in adult 327.23 and Routine adult health maintenance V70.0 [place] [address] [place] [address] 66164- 3993 Apr, Bipolar disorder 296.80 IMMUNIZATIONS No Known Immunizations SOCIAL HISTORY Never Assessed REASON FOR VISIT possible MRSA- left side armpit, breast, nose, has popped the one under her armpit, states she helps spouse with dressing changes and belives thats how she got it-Chuck PLAN OF CARE Activity Details Follow Up prn Reason: VITAL SIGNS Height 69 in 2017-10-20 Weight 271.8 lbs 2017-10-20 Temperature 98.2 degrees Fahrenheit 2017-10-20 Heart Rate 84 bpm 2017-10-20 Respiratory Rate 22 2017-10-20 BMI 40.13 kg/m2 2017-10-20 Blood pressure systolic 112 mmHg 2017-10-20 Blood pressure diastolic 72 mmHg 2017-10-20 MEDICATIONS Medication Instructions Dosage Frequency Start Date End Date Duration Status Albuterol Sulfate (2.5 MG/3ML) 0.083% Inhalation Three times a day 3 ml 8h Active Glucocard Expression Test - In Vitro 2 times a day as directed 12h Apr, Not-Taking Bactrim DS 800-160 MG Orally Twice a day 1 tablet 12h Sep, 1 Oct, 2017 10 day(s) Active Omeprazole 40 mg Orally Once a day 1 capsule 24h Active Bacitracin 500 UNIT/GM Externally three times a day 1 application to affected area 8h Sep, 1 Oct, 2017 10 days Active Metformin HCl 1000 MG Orally twice a day 1 tablet 12h 30 days Active Meloxicam 7.5 MG Orally Once a day 1 tablet 24h Apr, 4 Oct, 2017 90 days Not-Taking Albuterol Sulfate 108 (90 Base) MCG/ACT Inhalation every 4 hrs 2 puff as needed 4h Active Lipitor 10 mg Orally Once a day 1 tablet 24h Active Zyrtec Allergy 10 MG Orally Once a day 1 tablet 24h Sep, 9 Oct, 2017 30 day(s) Not-Taking Prozac 40 mg Orally Once a day 1 capsule in the morning 24h 90 days Active Breo Ellipta 100-25 MCG/INH Inhalation Once a day 1 puff 24h Active Flonase Allergy Relief 50 MCG/ACT Nasally Once a day 1 spray in each nostril 24h Active RESULTS No Results PROCEDURES Procedure Date Ordered Result Body Site [facility] VISIT ESTABLISHED PATIENT Oct 20, 2017 INSTRUCTIONS MEDICATIONS ADMINISTERED No Known Medications [...]
--- OUTSIDE RECORDS SUMMARY | 2018-05-06 10:13 | XMS REPORT ---
Author Author NICKY THOMPSON Organization [facility] Address [address] [place] [address] Care Team Providers Care Commissioning Agent Name Role Phone NICKY THOMPSON Unavailable PROBLEMS Type Condition ICD9-CM Code ZLS11-IW Code Onset Dates Condition Status SNOMED Code Problem Cardiomegaly I51.7 Active 0510276 Problem 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 Active 06684305 Problem 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.33 Active 70898793 Problem Chronic bronchitis, unspecified chronic bronchitis type J42 Active 56719539 Problem BMI 40.0-44.9, adult Z68.41 Active 816499816 Problem Type 2 diabetes mellitus with hyperglycemia E11.65 Active 179189249033673 Problem S/P cholecystectomy Z90.49 Active 110028480 Problem Other chronic pain G89.29 Active 15720700 Problem Seasonal allergic rhinitis, unspecified allergic rhinitis trigger J30.2 Active 358149688 ALLERGIES No Information ENCOUNTERS Encounter Location Date Diagnosis [place] [id number] [place] [address] 59653- 5150 Mar, Medicare annual wellness visit, initial Z00.00 [place] [address] [place] [address] 91542- 9112 Dec, [facility] [address] [place] [id number] [place] [address] 54704- 1446 02 Dec, 2017 Type 2 diabetes mellitus with hyperglycemia E11.65 ; Non- insulin dependent type 2 diabetes mellitus E11.9 ; BMI 40.0-44.9, adult Z68.41 ; Chronic bronchitis, unspecified chronic bronchitis type J42 ; Muscle cramp R25.2 and Incisional hernia, without obstruction or gangrene K43.2 [place] [address] [place] [address] 72671- 8516 Nov, [facility] [address] [place] [address] 15161 -7034 Nov, Abdominal pain, unspecified abdominal location R10.9 ; Constipation, unspecified constipation type K59.00 and BMI 40.0-44.9, adult Z68.41 [place] [id number] [place] [address] 67817- 9428 Nov, [place] [address] 62753- 3301 Oct, [place] [address] 97699- 2254 Oct, [address] 92411- 4394 Oct, Breast pain, left N64.4 and BMI 40.0-44.9, adult Z68.41 [facility] [place] [id number] [place] [address] 03267 -2591 Sep, BMI 40.0-44.9, adult Z68.41 and Multiple wounds of skin R23.8 [facility] IN [place] [id number] [place] [address] 46490 -6177 Sep, Body aches R52 ; Dysuria R30.0 and Viral URI J06.9 [place] [id number] [place] [address] 16306- 3749 Aug, Nausea R11.0 ; Other viral agents as the cause of diseases classified elsewhere B97.89 and Acute upper respiratory infection, unspecified J06.9 [place] [id number] [place] [address] 88553- 1968 Aug, [place] [id number] [place] [address] 99082- 8128 Aug, [facility] [place] [id number] [place] [address] 23250 -6157 Jul, Sore throat J02.9 and BMI 40.0-44.9, adult Z68.41 [place] [address] [place] [id number] [place] [address] 07037- 1316 Jun, Herniation through surgical site K43.2 ; Leg numbness R20.0 ; Acute pain of left knee M25.562 ; Fall, initial encounter W19.XXXA ; Non- insulin dependent type 2 diabetes mellitus E11.9 ; Morbid obesity, unspecified obesity type E66.01 ; Other chronic pain G89.29 and Unspecified abdominal pain R10.9 [facility] [place] [address] [place] [id number] [place] [address] 04376 -1413 Jun, Muscle strain of left shoulder, initial encounter S46.912A [place] [address] [place] [id number] [place] [address] 68721- 3885 May, [place] [address] [place] [id number] [place] [address] 05375- 4481 May, [facility] [place] [address] [place] [id number] [place] [address] 73661 -6975 May, Acute pain of right knee M25.561 and Right knee sprain S83.91XA [place] [address] [place] [id number] [place] [address] 73488- 2000 Apr, [place] [address] [place] [id number] [place] [address] 69916- 0886 Apr, [place] [address] [place] [id number] [place] [address] 26138- 5972 Apr, 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 ; Morbid obesity, unspecified obesity type E66.01 ; Acute exacerbation of chronic obstructive pulmonary disease (COPD) J44.1 ; Pain in right knee M25.561 ; Screening for breast cancer Z12.31 and Generalized anxiety disorder F41.1 [place] [address] [place] [id number] [place] [address] 21585- 5941 Mar, [facility] [address] 05016 -0401 Mar, Dysuria R30.0 and Acute cystitis without hematuria N30.00 [facility] [address] [place] [id number] [place] [address] 63356 -7785 Feb, [facility] [place] [address] 16776 -0249 Feb, Muscle cramps R25.2 and Seasonal allergic rhinitis, unspecified allergic rhinitis trigger J30.2 [place] [address] 06762- 7747 January, [place] [address] 53811- 3435 January, Generalized anxiety disorder F41.1 [facility] [place] [address] 78062 -6016 January, Acute exacerbation of chronic obstructive pulmonary disease (COPD) J44.1 [facility] [place] [address] 92574 -8557 Dec, Cramps, muscle, general R25.2 [place] [address] 10070- 0752 Dec, [place] [address] 15890- 3661 Nov, Type 2 diabetes mellitus with hyperglycemia E11.65 and Non- insulin dependent type 2 diabetes mellitus E11.9 [place] [address] [place] [id number] [place] [address] 38269- 3407 Oct, Generalized anxiety disorder F41.1 [facility] [place] [address] 97469 -3620 Oct, Vaginal candidiasis B37.3 [place] [address] 63593- 1778 Oct, Right upper quadrant abdominal pain R10.11 and S/P cholecystectomy Z90.49 [place] [address] 27729- 6773 Sep, Sore throat J02.9 and Right lower quadrant pain R10.31 [place] [address] 50453- 0229 Sep, Generalized anxiety disorder F41.1 [place] [address] 17430- 1052 Sep, [place] [address] 91572- 5994 Sep, [place] [address] 28666- 7080 Sep, Chest pain, unspecified type R07.9 ; Left lower quadrant pain R10.32 and Other acute postprocedural pain G89.18 [place] [address] 69623- 5219 Sep, Fever in other diseases R50.81 ; Acute non-recurrent maxillary sinusitis J01.00 and Cough R05 [place] [address] 64825- 5095 Sep, [facility] [place] [address] 91506 -5480 Sep, Dysuria R30.0 ; Sore throat J02.9 ; Chest pain, unspecified type R07.9 and Female genital lesion N94.9 [place] [address] 64908- 3496 Aug, Drug-induced constipation K59.03 ; Left arm pain M79.602 and S/P cholecystectomy Z90.49 [facility] N [address] 27734 -0803 Aug, Sore throat J02.9 and Strep pharyngitis J02.0 [place] [address] 94172- 1712 Aug, [facility] [address] [place] [id number] [place] [address] 13380- 1953 13 Aug, 2016 [place] [address] 18232- 8340 Aug, [place] [address] 68394- 4594 Jul, [place] [address] 73401- 8179 Jul, Type 2 diabetes mellitus with hyperglycemia E11.65 ; 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.33 ; Morbid obesity, unspecified obesity type E66.01 and Right upper quadrant abdominal pain R10.11 [facility] [place] [address] [place] [id number] [place] [address] 28214 -3863 Jul, Dysuria R30.0 ; Shortness of breath R06.02 ; Cardiomegaly I51.7 and COPD exacerbation J44.1 [place] [id number] [place] [address] 03822- 7425 Jul, Bipolar disorder, unspecified F31.9 and Generalized anxiety disorder F41.1 [place] [id number] [place] [address] 07106- 5602 Jun, [place] [id number] [place] [address] 15970- 9059 16 Jun, 2015 Sleep apnea, unspecified sleep apnea type G47.30 [place] [id number] [place] [address] 28141- 0789 Jun, Bipolar disorder, unspecified F31.9 and Generalized anxiety disorder F41.1 [place] [address] 04138- 1329 28 May, 2015 Right lower quadrant abdominal pain 789.03 ; Diabetes mellitus type 2, uncontrolled 250.02 ; Bipolar disorder 296.80 ; COPD (chronic obstructive pulmonary disease) 496 ; Bug bite without infection 919.4 and Left upper quadrant pain 789.02 [place] [address] [address]- 8389 16 May, 2015 Right lower quadrant abdominal pain 789.03 [facility] [address] [place] [id number] [address]- 9157 10 May, 2015 [facility] [address] [place] [address]- 8279 31 Apr, 2015 [place] [address] [address]- 3038 Apr, Skin infection 686.9 [place] [address] [place] [address]- 3219 Apr, Bipolar disorder 296.80 ; Diabetes mellitus type 2, uncontrolled 250.02 ; Hyperlipidemia 272.4 ; COPD (chronic obstructive pulmonary disease) 496 ; Sleep apnea in adult 327.23 and Routine adult health maintenance V70.0 [place] [address] [place] [address]- 9939 Apr, Bipolar disorder 296.80 IMMUNIZATIONS No Known Immunizations SOCIAL HISTORY Never Assessed REASON FOR VISIT Refill request PLAN OF CARE VITAL SIGNS MEDICATIONS Medication Instructions Dosage Frequency Start Date End Date Duration Status Flonase Allergy Relief 50 MCG/ACT Nasally Once a day 1 spray in each nostril 24h Active RESULTS No Results PROCEDURES No [...]
--- OUTSIDE RECORDS SUMMARY | 2018-05-06 10:13 | XMS REPORT ---
Author Author NICKY THOMPSON Organization [facility] Address [address] [place] [address] Care Team Providers Care Senior Technical Specialist Name Role Phone NICKY THOMPSON Unavailable PROBLEMS Type Condition ICD9-CM Code [id number] Code Onset Dates Condition Status SNOMED Code Problem Cardiomegaly I51.7 Active 3959513 Problem 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 Active 85353681 Problem 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.33 Active 96352452 Problem Chronic bronchitis, unspecified chronic bronchitis type J42 Active 19367394 Problem BMI 40.0-44.9, adult Z68.41 Active 008086574 Problem Type 2 diabetes mellitus with hyperglycemia E11.65 Active 353918675950387 Problem S/P cholecystectomy Z90.49 Active 649973903 Problem Other chronic pain G89.29 Active 24269154 Problem Seasonal allergic rhinitis, unspecified allergic rhinitis trigger J30.2 Active 712785218 ALLERGIES No Information ENCOUNTERS Encounter Location Date Diagnosis [place] [id number] [place] [address] 74818- 9712 January, Medicare annual wellness visit, initial Z00.00 [place] [address] [place] [address] 28708- 3989 Dec, [facility] [address] [place] [id number] [place] [address] 89926- 6701 02 Dec, 2017 Type 2 diabetes mellitus with hyperglycemia E11.65 ; Non- insulin dependent type 2 diabetes mellitus E11.9 ; BMI 40.0-44.9, adult Z68.41 ; Chronic bronchitis, unspecified chronic bronchitis type J42 ; Muscle cramp R25.2 and Incisional hernia, without obstruction or gangrene K43.2 [place] [address] [place] [address] 60086- 5345 Nov, [facility] IN [address] [place] [address] 30042 -7106 Nov, Abdominal pain, unspecified abdominal location R10.9 ; Constipation, unspecified constipation type K59.00 and BMI 40.0-44.9, adult Z68.41 [place] [id number] [place] [address] 77498- 5320 Nov, [place] [address] 69067- 2995 Oct, [place] [address] 28269- 7076 Oct, [address] 39512- 0592 Oct, Breast pain, left N64.4 and BMI 40.0-44.9, adult Z68.41 [facility] [place] [id number] [place] [address] 03371 -0077 Sep, BMI 40.0-44.9, adult Z68.41 and Multiple wounds of skin R23.8 [facility] [place] [id number] [place] [address] 45589 -4173 Sep, Body aches R52 ; Dysuria R30.0 and Viral URI J06.9 [place] [id number] [place] [address] 28913- 5651 Aug, Nausea R11.0 ; Other viral agents as the cause of diseases classified elsewhere B97.89 and Acute upper respiratory infection, unspecified J06.9 [place] [id number] [place] [address] 54023- 5970 Aug, [place] [id number] [place] [address] 36817- 0917 Aug, [facility] [place] [id number] [place] [address] 92293 -5803 Jul, Sore throat J02.9 and BMI 40.0-44.9, adult Z68.41 [place] [address] [place] [id number] [place] [address] 86729- 7745 Jun, Herniation through surgical site K43.2 ; Leg numbness R20.0 ; Acute pain of left knee M25.562 ; Fall, initial encounter W19.XXXA ; Non- insulin dependent type 2 diabetes mellitus E11.9 ; Morbid obesity, unspecified obesity type E66.01 ; Other chronic pain G89.29 and Unspecified abdominal pain R10.9 [facility] [place] [address] [place] [id number] [place] [address] 72911 -8142 Jun, Muscle strain of left shoulder, initial encounter S46.912A [place] [address] [place] [id number] [place] [address] 62945- 6444 May, [place] [address] [place] [id number] [place] [address] 16673- 5880 May, [facility] [place] [address] [place] [id number] [place] [address] 31266 -3816 May, Acute pain of right knee M25.561 and Right knee sprain S83.91XA [place] [address] [place] [id number] [place] [address] 11662- 1553 Apr, [place] [address] [place] [id number] [place] [address] 82698- 0602 Apr, [place] [address] [place] [id number] [place] [address] 19707- 2688 Apr, 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 ; Morbid obesity, unspecified obesity type E66.01 ; Acute exacerbation of chronic obstructive pulmonary disease (COPD) J44.1 ; Pain in right knee M25.561 ; Screening for breast cancer Z12.31 and Generalized anxiety disorder F41.1 [place] [address] [place] [id number] [place] [address] 45246- 8703 Mar, [facility] WALK IN [facility] [address] 42751 -3945 Mar, Dysuria R30.0 and Acute cystitis without hematuria N30.00 [facility] [address] [place] [id number] [place] [address] 75202 -7615 Feb, [facility] IN [place] [address] 96244 -8610 Feb, Muscle cramps R25.2 and Seasonal allergic rhinitis, unspecified allergic rhinitis trigger J30.2 [place] [address] 54692- 2551 January, [place] [address] 25606- 7978 January, Generalized anxiety disorder F41.1 [facility]ALK IN [place] [address] 20065 -9603 January, Acute exacerbation of chronic obstructive pulmonary disease (COPD) J44.1 [facility]ALK IN [place] [address] 47560 -0966 Dec, Cramps, muscle, general R25.2 [place] [address] 19896- 4020 Dec, [place] [address] 94781- 1128 Nov, Type 2 diabetes mellitus with hyperglycemia E11.65 and Non- insulin dependent type 2 diabetes mellitus E11.9 [place] [address] [place] [id number] [place] [address] 67570- 3886 Oct, Generalized anxiety disorder F41.1 [facility] WALK IN [place] [address] 35182 -4218 Oct, Vaginal candidiasis B37.3 [place] [address] 35210- 5238 Oct, Right upper quadrant abdominal pain R10.11 and S/P cholecystectomy Z90.49 [place] [address] 35239- 8396 Sep, Sore throat J02.9 and Right lower quadrant pain R10.31 [place] [address] 68799- 5786 Sep, Generalized anxiety disorder F41.1 [place] [address] 92378- 3833 Sep, [place] [address] 41735- 2610 Sep, [place] [address] 62696- 8612 Sep, Chest pain, unspecified type R07.9 ; Left lower quadrant pain R10.32 and Other acute postprocedural pain G89.18 [place] [address] 81037- 8955 Sep, Fever in other diseases R50.81 ; Acute non-recurrent maxillary sinusitis J01.00 and Cough R05 [place] [address] 58572- 6495 Sep, [facility]ALK IN [place] [address] 21872 -0486 Sep, Dysuria R30.0 ; Sore throat J02.9 ; Chest pain, unspecified type R07.9 and Female genital lesion N94.9 [place] [address] 00672- 3271 Aug, Drug-induced constipation K59.03 ; Left arm pain M79.602 and S/P cholecystectomy Z90.49 [facility] [address] 84954 -7302 Aug, Sore throat J02.9 and Strep pharyngitis J02.0 [place] [address] 81838- 3472 Aug, [facility] [address] [place] [id number] [place] [address] 90694- 9445 13 Aug, 2016 [place] [address] 23006- 9016 Aug, [place] [address] 91690- 7214 Jul, [place] [address] 71977- 8395 Jul, Type 2 diabetes mellitus with hyperglycemia E11.65 ; 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.33 ; Morbid obesity, unspecified obesity type E66.01 and Right upper quadrant abdominal pain R10.11 [facility] [place] [address] [place] [id number] [place] [address] 54634 -9764 Jul, Dysuria R30.0 ; Shortness of breath R06.02 ; Cardiomegaly I51.7 and COPD exacerbation J44.1 [place] [id number] [place] [address] 97900- 8505 Jul, Bipolar disorder, unspecified F31.9 and Generalized anxiety disorder F41.1 [place] [id number] [place] [address] 77420- 6929 Jun, [place] [id number] [place] [address] 72310- 8763 16 Jun, 2015 Sleep apnea, unspecified sleep apnea type G47.30 [place] [id number] [place] [address] 30359- 6989 Jun, Bipolar disorder, unspecified F31.9 and Generalized anxiety disorder F41.1 [place] [address] 11847- 8404 28 May, 2015 Right lower quadrant abdominal pain 789.03 ; Diabetes mellitus type 2, uncontrolled 250.02 ; Bipolar disorder 296.80 ; COPD (chronic obstructive pulmonary disease) 496 ; Bug bite without infection 919.4 and Left upper quadrant pain 789.02 [place] [address] [address]- 8035 16 May, 2015 Right lower quadrant abdominal pain 789.03 [place] [address] [place] [address] [address]- 3917 10 May, 2015 [facility] [address], [place] [address]- 5989 31 Apr, 2015 [place] [address], [place] [address]- 6526 Apr, Skin infection 686.9 [place] [address] [address]- 2622 Apr, Bipolar disorder 296.80 ; Diabetes mellitus type 2, uncontrolled 250.02 ; Hyperlipidemia 272.4 ; COPD (chronic obstructive pulmonary disease) 496 ; Sleep apnea in adult 327.23 and Routine adult health maintenance V70.0 [place] [address], [place] [address]- 2974 Apr, Bipolar disorder 296.80 IMMUNIZATIONS No Known [...]
--- OUTSIDE RECORDS SUMMARY | 2018-05-06 10:14 | XMS REPORT ---
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 Name Role Phone NICKY THOMPSON Unavailable PROBLEMS Type Condition ICD9-CM Code [id number] Code Onset Dates Condition Status SNOMED Code Problem Cardiomegaly I51.7 Active 9943973 Problem 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 Active 00360297 Problem 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.33 Active 01477905 Problem Chronic bronchitis, unspecified chronic bronchitis type J42 Active 83114432 Problem BMI 40.0-44.9, adult Z68.41 Active 907518036 Problem Type 2 diabetes mellitus with hyperglycemia E11.65 Active 924207210540399 Problem S/P cholecystectomy Z90.49 Active 946954320 Problem Other chronic pain G89.29 Active 22156965 Problem Seasonal allergic rhinitis, unspecified allergic rhinitis trigger J30.2 Active 596031383 ALLERGIES No Information ENCOUNTERS Encounter Location Date Diagnosis [place] [address] [place] [address] 10431- 6428 January, Medicare annual wellness visit, initial Z00.00 [place] [address] [place] [address] 21398- 5997 Dec, [facility] [address] [place] [id number] [place] [address] 96640- 4432 02 Dec, 2017 Type 2 diabetes mellitus with hyperglycemia E11.65 ; Non- insulin dependent type 2 diabetes mellitus E11.9 ; BMI 40.0-44.9, adult Z68.41 ; Chronic bronchitis, unspecified chronic bronchitis type J42 ; Muscle cramp R25.2 and Incisional hernia, without obstruction or gangrene K43.2 [place] [address] [place] [address] 26554- 6343 Nov, [facility] IN [address] [place] [address] 80385 -6849 Nov, Abdominal pain, unspecified abdominal location R10.9 ; Constipation, unspecified constipation type K59.00 and BMI 40.0-44.9, adult Z68.41 [place] [id number] [place] [address] 37306- 2917 Nov, [place] [address] 00045- 4668 Oct, [place] [address] 87832- 2052 Oct, [address] 95768- 6348 Oct, Breast pain, left N64.4 and BMI 40.0-44.9, adult Z68.41 [facility] IN [place] [id number] [place] [address] 90962 -6528 Sep, BMI 40.0-44.9, adult Z68.41 and Multiple wounds of skin R23.8 [facility] [place] [id number] [place] [address] 03047 -4766 Sep, Body aches R52 ; Dysuria R30.0 and Viral URI J06.9 [place] [id number] [place] [address] 99194- 0283 Aug, Nausea R11.0 ; Other viral agents as the cause of diseases classified elsewhere B97.89 and Acute upper respiratory infection, unspecified J06.9 [place] [id number] [place] [address] 63540- 4611 Aug, [place] [id number] [place] [address] 50116- 7013 Aug, [facility] [place] [id number] [place] [address] 28386 -5061 Jul, Sore throat J02.9 and BMI 40.0-44.9, adult Z68.41 [place] [address] [place] [id number] [place] [address] 36872- 4149 Jun, Herniation through surgical site K43.2 ; Leg numbness R20.0 ; Acute pain of left knee M25.562 ; Fall, initial encounter W19.XXXA ; Non- insulin dependent type 2 diabetes mellitus E11.9 ; Morbid obesity, unspecified obesity type E66.01 ; Other chronic pain G89.29 and Unspecified abdominal pain R10.9 [facility] [place] [address] [place] [id number] [place] [address] 59748 -7778 Jun, Muscle strain of left shoulder, initial encounter S46.912A [place] [address] [place] [id number] [place] [address] 37993- 0350 May, [place] [address] [place] [id number] [place] [address] 49556- 1779 May, [facility] IN [place] [address] [place] [id number] [place] [address] 01568 -4298 May, Acute pain of right knee M25.561 and Right knee sprain S83.91XA [place] [address] [place] [id number] [place] [address] 23270- 1950 Apr, [place] [address] [place] [id number] [place] [address] 86636- 8207 Apr, [place] [address] [place] [id number] [place] [address] 66065- 6998 Apr, 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 ; Morbid obesity, unspecified obesity type E66.01 ; Acute exacerbation of chronic obstructive pulmonary disease (COPD) J44.1 ; Pain in right knee M25.561 ; Screening for breast cancer Z12.31 and Generalized anxiety disorder F41.1 [place] [address] [place] [id number] [place] [address] 75664- 1352 Mar, [facility] WALK IN [facility] [address] 78774 -1226 Mar, Dysuria R30.0 and Acute cystitis without hematuria N30.00 [facility] [address] [place] [id number] [place] [address] 04236 -8078 Feb, [facility] IN [place] [address] 34388 -5585 Feb, Muscle cramps R25.2 and Seasonal allergic rhinitis, unspecified allergic rhinitis trigger J30.2 [place] [address] 03575- 8075 January, [place] [address] 74746- 1385 January, Generalized anxiety disorder F41.1 [facility]ALK IN [place] [address] 62057 -8278 January, Acute exacerbation of chronic obstructive pulmonary disease (COPD) J44.1 [facility]ALK IN [place] [address] 31174 -5266 Dec, Cramps, muscle, general R25.2 [place] [address] 69496- 9839 Dec, [place] [address] 63519- 2654 Nov, Type 2 diabetes mellitus with hyperglycemia E11.65 and Non- insulin dependent type 2 diabetes mellitus E11.9 [place] [address] [place] [id number] [place] [address] 35019- 2910 Oct, Generalized anxiety disorder F41.1 [facility]ALK IN [place] [address] 57791 -3179 Oct, Vaginal candidiasis B37.3 [place] [address] 24636- 5510 Oct, Right upper quadrant abdominal pain R10.11 and S/P cholecystectomy Z90.49 [place] [address] 10996- 6804 Sep, Sore throat J02.9 and Right lower quadrant pain R10.31 [place] [address] 14318- 1615 Sep, Generalized anxiety disorder F41.1 [place] [address] 00896- 6308 Sep, [place] [address] 10068- 7449 Sep, [place] [address] 13665- 6387 Sep, Chest pain, unspecified type R07.9 ; Left lower quadrant pain R10.32 and Other acute postprocedural pain G89.18 [place] [address] 91088- 9488 Sep, Fever in other diseases R50.81 ; Acute non-recurrent maxillary sinusitis J01.00 and Cough R05 [place] [address] 75689- 7993 Sep, [facility] [place] [address] 58270 -5569 Sep, Dysuria R30.0 ; Sore throat J02.9 ; Chest pain, unspecified type R07.9 and Female genital lesion N94.9 [place] [address] 01188- 0003 Aug, Drug-induced constipation K59.03 ; Left arm pain M79.602 and S/P cholecystectomy Z90.49 [facility] N [address] 97373 -1306 Aug, Sore throat J02.9 and Strep pharyngitis J02.0 [place] [address] 86578- 8368 Aug, [facility] [address] [place] [id number] [place] [address] 53152- 4364 13 Aug, 2016 [place] [address] 11064- 3620 Aug, [place] [address] 77401- 7893 Jul, [place] [address] 79185- 2657 Jul, Type 2 diabetes mellitus with hyperglycemia E11.65 ; 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.33 ; Morbid obesity, unspecified obesity type E66.01 and Right upper quadrant abdominal pain R10.11 [facility] [place] [address] [place] [id number] [place] [address] 22734 -2706 Jul, Dysuria R30.0 ; Shortness of breath R06.02 ; Cardiomegaly I51.7 and COPD exacerbation J44.1 [place] [id number] [place] [address] 38445- 3764 Jul, Bipolar disorder, unspecified F31.9 and Generalized anxiety disorder F41.1 [place] [id number] [place] [address] 35233- 4993 Jun, [place] [id number] [place] [address] 71474- 3479 16 Jun, 2015 Sleep apnea, unspecified sleep apnea type G47.30 [place] [id number] [place] [address] 63619- 4293 Jun, Bipolar disorder, unspecified F31.9 and Generalized anxiety disorder F41.1 [place] [address] 54971- 9001 28 May, 2015 Right lower quadrant abdominal pain 789.03 ; Diabetes mellitus type 2, uncontrolled 250.02 ; Bipolar disorder 296.80 ; COPD (chronic obstructive pulmonary disease) 496 ; Bug bite without infection 919.4 and Left upper quadrant pain 789.02 [place] [address] [address]- 9866 16 May, 2015 Right lower quadrant abdominal pain 789.03 [facility] [address] [place] [address]- 4911 10 May, 2015 [facility] [address] [place] [address]- 5836 31 Apr, 2015 [facility] [address], [place] [address]- 0253 Apr, Skin infection 686.9 [place] [address] [place] [address]- 3735 Apr, Bipolar disorder 296.80 ; Diabetes mellitus type 2, uncontrolled 250.02 ; Hyperlipidemia 272.4 ; COPD (chronic obstructive pulmonary disease) 496 ; Sleep apnea in adult 327.23 and Routine adult health maintenance V70.0 [place] [address], [place] [address]- 3877 Apr, Bipolar disorder 296.80 IMMUNIZATIONS No Known [...]
[2018-05-06 10:15] VITALS: BP 101/56
[2018-05-06] MEDS ORDERED: HYDROcodone/APAP 7.5 MG/325 MG (LORTAB, LORCET PLUS) TABLET PO PRN (10:15)
--- OUTSIDE RECORDS SUMMARY | 2018-05-06 10:15 | XMS REPORT ---
Author Author NICKY THOMPSON Organization [facility] Address [address] [place] [address] Care Team Providers Care Penal Officer Name Role Phone NICKY THOMPSON Unavailable PROBLEMS Type Condition ICD9-CM Code OCE95-SW Code Onset Dates Condition Status SNOMED Code Problem Cardiomegaly I51.7 Active 9095264 Problem 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 Active 94309371 Problem 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.33 Active 60050507 Problem Chronic bronchitis, unspecified chronic bronchitis type J42 Active 88141545 Problem BMI 40.0-44.9, adult Z68.41 Active 101663178 Problem Type 2 diabetes mellitus with hyperglycemia E11.65 Active 565348890708935 Problem S/P cholecystectomy Z90.49 Active 313963725 Problem Other chronic pain G89.29 Active 95576379 Problem Seasonal allergic rhinitis, unspecified allergic rhinitis trigger J30.2 Active 592364252 ALLERGIES No Information ENCOUNTERS Encounter Location Date Diagnosis [place] [address] [place] [address] 43645- 4025 Mar, Medicare annual wellness visit, initial Z00.00 [place] [address] [address] [place] [address] 55601- 6239 Dec, [facility] [address] [place] [id number] [place] [address] 85057- 1572 02 Dec, 2017 Type 2 diabetes mellitus with hyperglycemia E11.65 ; Non- insulin dependent type 2 diabetes mellitus E11.9 ; BMI 40.0-44.9, adult Z68.41 ; Chronic bronchitis, unspecified chronic bronchitis type J42 ; Muscle cramp R25.2 and Incisional hernia, without obstruction or gangrene K43.2 [place] [address] [place] [address] 23512- 1889 Nov, [facility] IN [address] [place] [address] 20789 -6855 Nov, Abdominal pain, unspecified abdominal location R10.9 ; Constipation, unspecified constipation type K59.00 and BMI 40.0-44.9, adult Z68.41 [place] [id number] [place] [address] 67728- 8922 Nov, [place] [address] 62722- 2404 Oct, [place] [address] 77828- 9347 Oct, [address] 89506- 0034 Oct, Breast pain, left N64.4 and BMI 40.0-44.9, adult Z68.41 [facility] WALK IN [place] [id number] [place] [address] 55062 -2239 Sep, BMI 40.0-44.9, adult Z68.41 and Multiple wounds of skin R23.8 [facility] IN [place] [id number] [place] [address] 38146 -2616 Sep, Body aches R52 ; Dysuria R30.0 and Viral URI J06.9 [place] [id number] [place] [address] 86548- 5806 Aug, Nausea R11.0 ; Other viral agents as the cause of diseases classified elsewhere B97.89 and Acute upper respiratory infection, unspecified J06.9 [place] [id number] [place] [address] 59891- 3105 Aug, [place] [id number] [place] [address] 86449- 0656 Aug, [facility] IN [place] [id number] [place] [address] 71638 -8654 Jul, Sore throat J02.9 and BMI 40.0-44.9, adult Z68.41 [place] [address] [place] [id number] [place] [address] 71366- 4246 Jun, Herniation through surgical site K43.2 ; Leg numbness R20.0 ; Acute pain of left knee M25.562 ; Fall, initial encounter W19.XXXA ; Non- insulin dependent type 2 diabetes mellitus E11.9 ; Morbid obesity, unspecified obesity type E66.01 ; Other chronic pain G89.29 and Unspecified abdominal pain R10.9 [facility] [place] [address] [address] [place] [id number] [place] [address] 60133 -7252 Jun, Muscle strain of left shoulder, initial encounter S46.912A [place] [address] [place] [id number] [place] [address] 24350- 6958 May, [place] [address] [place] [id number] [place] [address] 74662- 6797 May, [facility]ALK [place] [address] [place] [id number] [place] [address] 14820 -6850 May, Acute pain of right knee M25.561 and Right knee sprain S83.91XA [place] [address] [place] [id number] [place] [address] 98898- 3792 Apr, [place] [address] [place] [id number] [place] [address] 54490- 3148 Apr, [place] [address] [place] [id number] [place] [address] 00979- 2293 Apr, 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 ; Morbid obesity, unspecified obesity type E66.01 ; Acute exacerbation of chronic obstructive pulmonary disease (COPD) J44.1 ; Pain in right knee M25.561 ; Screening for breast cancer Z12.31 and Generalized anxiety disorder F41.1 [place] [address] [place] [id number] [place] [address] 10127- 4773 Mar, [facility] WALK IN [facility] [address] 88187 -7221 Mar, Dysuria R30.0 and Acute cystitis without hematuria N30.00 [facility] [address] [place] [id number] [place] [address] 15437 -2933 Feb, [facility] IN [place] [address] 37629 -8424 Feb, Muscle cramps R25.2 and Seasonal allergic rhinitis, unspecified allergic rhinitis trigger J30.2 [place] [address] 43245- 7808 January, [place] [address] 17860- 5970 January, Generalized anxiety disorder F41.1 [facility] WALK IN [place] [address] 66023 -8133 January, Acute exacerbation of chronic obstructive pulmonary disease (COPD) J44.1 [facility] WALK IN [place] [address] 35048 -4760 Dec, Cramps, muscle, general R25.2 [place] [address] 70657- 8365 Dec, [place] [address] 52249- 7977 Nov, Type 2 diabetes mellitus with hyperglycemia E11.65 and Non- insulin dependent type 2 diabetes mellitus E11.9 [place] [address] [place] [id number] [place] [address] 97395- 9008 Oct, Generalized anxiety disorder F41.1 [facility] WALK IN [place] [address] 24707 -6970 Oct, Vaginal candidiasis B37.3 [place] [address] 20147- 9321 Oct, Right upper quadrant abdominal pain R10.11 and S/P cholecystectomy Z90.49 [place] [address] 82857- 0526 Sep, Sore throat J02.9 and Right lower quadrant pain R10.31 [place] [address] 26153- 0028 Sep, Generalized anxiety disorder F41.1 [place] [address] 86927- 4320 Sep, [place] [address] 87965- 6099 Sep, [place] [address] 88806- 5618 Sep, Chest pain, unspecified type R07.9 ; Left lower quadrant pain R10.32 and Other acute postprocedural pain G89.18 [place] [address] 66299- 9642 Sep, Fever in other diseases R50.81 ; Acute non-recurrent maxillary sinusitis J01.00 and Cough R05 [place] [address] 29147- 1487 Sep, [facility] WALK IN [place] [address] 64767 -9634 Sep, Dysuria R30.0 ; Sore throat J02.9 ; Chest pain, unspecified type R07.9 and Female genital lesion N94.9 [place] [address] 14148- 0095 Aug, Drug-induced constipation K59.03 ; Left arm pain M79.602 and S/P cholecystectomy Z90.49 [facility] N [address] 94873 -3074 Aug, Sore throat J02.9 and Strep pharyngitis J02.0 [place] [address] 34482- 6346 Aug, [facility] [address] [place] [id number] [place] [address] 95138- 8823 13 Aug, 2016 [place] [address] 13665- 8837 Aug, [place] [address] 05855- 4571 Jul, [place] [address] 63955- 4530 Jul, Type 2 diabetes mellitus with hyperglycemia E11.65 ; 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.33 ; Morbid obesity, unspecified obesity type E66.01 and Right upper quadrant abdominal pain R10.11 [facility] IN [place] [address] [address] [place] [id number] [place] [address] 29802 -9388 Jul, Dysuria R30.0 ; Shortness of breath R06.02 ; Cardiomegaly I51.7 and COPD exacerbation J44.1 [place] [id number] [place] [address] 75651- 2032 Jul, Bipolar disorder, unspecified F31.9 and Generalized anxiety disorder F41.1 [place] [id number] [place] [address] 20136- 9200 Jun, [place] [id number] [place] [address] 00448- 3899 16 Jun, 2015 Sleep apnea, unspecified sleep apnea type G47.30 [place] [id number] [place] [address] 64930- 9774 Jun, Bipolar disorder, unspecified F31.9 and Generalized anxiety disorder F41.1 [place] [address] 26991- 7981 28 May, 2015 Right lower quadrant abdominal pain 789.03 ; Diabetes mellitus type 2, uncontrolled 250.02 ; Bipolar disorder 296.80 ; COPD (chronic obstructive pulmonary disease) 496 ; Bug bite without infection 919.4 and Left upper quadrant pain 789.02 [place] [id number] [address]- 9998 16 May, 2015 Right lower quadrant abdominal pain 789.03 [facility] [address] [address]- 9392 10 May, 2015 [facility] [address] [address]- 5125 31 Apr, 2015 [place] [address] [address]- 1829 Apr, Skin infection 686.9 [place] [address] [address]- 0416 11 Apr, 2015 Diabetes mellitus type 2, uncontrolled 250.02 ; Bipolar disorder 296.80 ; Hyperlipidemia 272.4 ; COPD (chronic obstructive pulmonary disease) 496 ; Sleep apnea in adult 327.23 and Routine adult health maintenance V70.0 [place] [address] [address]- 2888 Apr, Bipolar disorder 296.80 IMMUNIZATIONS No Known Immunizations SOCIAL HISTORY Never Assessed REASON FOR VISIT medication refills PLAN OF CARE VITAL SIGNS MEDICATIONS Medication Instructions Dosage Frequency Start Date End Date Duration Status Omeprazole 40 mg Orally Once a day 1 capsule 24h Active Metformin HCl 1000 MG Orally twice a day 1 tablet 12h 30 days Active Lipitor 10 mg Orally Once a day 1 tablet 24h Active RESULTS No Results PROCEDURES No [...]
--- OUTSIDE RECORDS SUMMARY | 2018-05-06 10:15 | XMS REPORT ---
Author Author NICKY THOMPSON Organization [facility] Address [address] [place] [address] Care Team Providers Care Welder 2Nd Shift Name Role Phone NICKY THOMPSON Unavailable PROBLEMS Type Condition ICD9-CM Code QER14-LO Code Onset Dates Condition Status SNOMED Code Problem Cardiomegaly I51.7 Active 3687475 Problem 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 Active 18418983 Problem 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.33 Active 80926269 Problem Chronic bronchitis, unspecified chronic bronchitis type J42 Active 13944264 Problem BMI 40.0-44.9, adult Z68.41 Active 809059832 Problem Type 2 diabetes mellitus with hyperglycemia E11.65 Active 785754400439291 Problem S/P cholecystectomy Z90.49 Active 014276162 Problem Other chronic pain G89.29 Active 96257454 Problem Seasonal allergic rhinitis, unspecified allergic rhinitis trigger J30.2 Active 153591052 ALLERGIES No Information ENCOUNTERS Encounter Location Date Diagnosis [place] [address] [place] [address] 97827- 5862 January, Medicare annual wellness visit, initial Z00.00 [place] [address] [place] [address] 02637- 0418 Dec, [facility] [address] [place] [id number] [place] [address] 19047- 0146 02 Dec, 2017 Type 2 diabetes mellitus with hyperglycemia E11.65 ; Non- insulin dependent type 2 diabetes mellitus E11.9 ; BMI 40.0-44.9, adult Z68.41 ; Chronic bronchitis, unspecified chronic bronchitis type J42 ; Muscle cramp R25.2 and Incisional hernia, without obstruction or gangrene K43.2 [place] [address] [place] [address] 35797- 8774 Nov, [facility] IN [address] [place] [address] 45504 -0420 Nov, Abdominal pain, unspecified abdominal location R10.9 ; Constipation, unspecified constipation type K59.00 and BMI 40.0-44.9, adult Z68.41 [place] [id number] [place] [address] 81842- 6491 Nov, [place] [address] 61060- 2597 Oct, [place] [address] 79129- 0991 Oct, [address] 72481- 7158 Oct, Breast pain, left N64.4 and BMI 40.0-44.9, adult Z68.41 [facility] WALK IN [place] [id number] [place] [address] 91347 -0564 Sep, BMI 40.0-44.9, adult Z68.41 and Multiple wounds of skin R23.8 [facility] IN [place] [id number] [place] [address] 85857 -2351 Sep, Body aches R52 ; Dysuria R30.0 and Viral URI J06.9 [place] [id number] [place] [address] 33456- 7417 Aug, Nausea R11.0 ; Other viral agents as the cause of diseases classified elsewhere B97.89 and Acute upper respiratory infection, unspecified J06.9 [place] [id number] [place] [address] 18498- 0012 Aug, [place] [id number] [place] [address] 62953- 6894 Aug, [facility] [place] [id number] [place] [address] 76953 -4133 Jul, Sore throat J02.9 and BMI 40.0-44.9, adult Z68.41 [place] [address] [place] [id number] [place] [address] 76588- 1733 Jun, Herniation through surgical site K43.2 ; Leg numbness R20.0 ; Acute pain of left knee M25.562 ; Fall, initial encounter W19.XXXA ; Non- insulin dependent type 2 diabetes mellitus E11.9 ; Morbid obesity, unspecified obesity type E66.01 ; Other chronic pain G89.29 and Unspecified abdominal pain R10.9 [facility] [place] [address] [address] [place] [id number] [place] [address] 04372 -7630 Jun, Muscle strain of left shoulder, initial encounter S46.912A [place] [address] [place] [id number] [place] [address] 09383- 9883 May, [place] [address] [place] [id number] [place] [address] 56391- 8189 May, [facility] IN [place] [address] [place] [id number] [place] [address] 18383 -1452 May, Acute pain of right knee M25.561 and Right knee sprain S83.91XA [place] [address] [place] [id number] [place] [address] 08462- 6521 Apr, [place] [address] [place] [id number] [place] [address] 28794- 6763 Apr, [place] [address] [place] [id number] [place] [address] 15241- 2177 Apr, 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 ; Morbid obesity, unspecified obesity type E66.01 ; Acute exacerbation of chronic obstructive pulmonary disease (COPD) J44.1 ; Pain in right knee M25.561 ; Screening for breast cancer Z12.31 and Generalized anxiety disorder F41.1 [place] [address] [place] [id number] [place] [address] 57706- 4438 Mar, [facility] WALK IN [facility] [address] 00734 -3632 Mar, Dysuria R30.0 and Acute cystitis without hematuria N30.00 [facility] [address] [place] [id number] [place] [address] 05192 -6704 Feb, [facility] IN [place] [address] 19849 -7500 Feb, Muscle cramps R25.2 and Seasonal allergic rhinitis, unspecified allergic rhinitis trigger J30.2 [place] [address] 33159- 1483 January, [place] [address] 38370- 4779 January, Generalized anxiety disorder F41.1 [facility] WALK IN [place] [address] 30748 -6011 January, Acute exacerbation of chronic obstructive pulmonary disease (COPD) J44.1 [facility]ALK IN [place] [address] 28577 -6197 Dec, Cramps, muscle, general R25.2 [place] [address] 86141- 3659 Dec, [place] [address] 61795- 2611 Nov, Type 2 diabetes mellitus with hyperglycemia E11.65 and Non- insulin dependent type 2 diabetes mellitus E11.9 [place] [address] [place] [id number] [place] [address] 66079- 1799 Oct, Generalized anxiety disorder F41.1 [facility]ALK IN [place] [address] 96162 -4732 Oct, Vaginal candidiasis B37.3 [place] [address] 22838- 0955 Oct, Right upper quadrant abdominal pain R10.11 and S/P cholecystectomy Z90.49 [place] [address] 92912- 5450 Sep, Sore throat J02.9 and Right lower quadrant pain R10.31 [place] [address] 84721- 7754 Sep, Generalized anxiety disorder F41.1 [place] [address] 86201- 1117 Sep, [place] [address] 15224- 7875 Sep, [place] [address] 39219- 4101 Sep, Chest pain, unspecified type R07.9 ; Left lower quadrant pain R10.32 and Other acute postprocedural pain G89.18 [place] [address] 09491- 8997 Sep, Fever in other diseases R50.81 ; Acute non-recurrent maxillary sinusitis J01.00 and Cough R05 [place] [address] 25212- 8663 Sep, [facility]ALK IN [place] [address] 76358 -0125 Sep, Dysuria R30.0 ; Sore throat J02.9 ; Chest pain, unspecified type R07.9 and Female genital lesion N94.9 [place] [address] 15177- 5998 Aug, Drug-induced constipation K59.03 ; Left arm pain M79.602 and S/P cholecystectomy Z90.49 [facility] N [address] 86631 -9209 Aug, Sore throat J02.9 and Strep pharyngitis J02.0 [place] [address] 65551- 0167 Aug, [facility] [address] [place] [id number] [place] [address] 91195- 4385 13 Aug, 2016 [place] [address] 48072- 1099 Aug, [place] [address] 37153- 3815 Jul, [place] [address] 61032- 4204 Jul, Type 2 diabetes mellitus with hyperglycemia E11.65 ; 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.33 ; Morbid obesity, unspecified obesity type E66.01 and Right upper quadrant abdominal pain R10.11 [facility] IN [place] [address] [address] [place] [id number] [place] [address] 94379 -3770 Jul, Dysuria R30.0 ; Shortness of breath R06.02 ; Cardiomegaly I51.7 and COPD exacerbation J44.1 [place] [id number] [place] [address] 41618- 9129 Jul, Bipolar disorder, unspecified F31.9 and Generalized anxiety disorder F41.1 [place] [id number] [place] [address] 32461- 3670 Jun, [place] [id number] [place] [address] 08654- 3401 16 Jun, 2015 Sleep apnea, unspecified sleep apnea type G47.30 [place] [id number] [place] [address] 65170- 7463 Jun, Bipolar disorder, unspecified F31.9 and Generalized anxiety disorder F41.1 [place] [address] 89282- 8301 28 May, 2015 Right lower quadrant abdominal pain 789.03 ; Diabetes mellitus type 2, uncontrolled 250.02 ; Bipolar disorder 296.80 ; COPD (chronic obstructive pulmonary disease) 496 ; Bug bite without infection 919.4 and Left upper quadrant pain 789.02 [place] [address] [address]- 5675 16 May, 2015 Right lower quadrant abdominal pain 789.03 [facility] [address], [place] [address]- 0201 10 May, 2015 [facility] [address], [place] [address]- 1629 31 Apr, 2015 [facility] [address] [place] [address] 69186- 1532 Apr, Skin infection 686.9 [place] [address], [place] [address]- 5086 Apr, Bipolar disorder 296.80 ; Diabetes mellitus type 2, uncontrolled 250.02 ; Hyperlipidemia 272.4 ; COPD (chronic obstructive pulmonary disease) 496 ; Sleep apnea in adult 327.23 and Routine adult health maintenance V70.0 [place] [address], [place] [address]- 6584 Apr, Bipolar disorder 296.80 IMMUNIZATIONS No Known Immunizations SOCIAL HISTORY Never Assessed REASON FOR VISIT Metformin refill PLAN OF CARE VITAL SIGNS MEDICATIONS Medication [...]
--- OUTSIDE RECORDS SUMMARY | 2018-05-06 10:15 | XMS REPORT ---
Author Author ELHAM Ortiz [facility] Address [address] [place] [address] Care Team Providers Care Geography Instructor Name Role Phone ELHAM Ortiz Unavailable PROBLEMS Type Condition ICD9-CM Code [id number] Code Onset Dates Condition Status SNOMED Code Problem Cardiomegaly I51.7 Active 6693749 Problem 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 Active 96807841 Problem 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.33 Active 14154965 Problem Chronic bronchitis, unspecified chronic bronchitis type J42 Active 89007205 Problem BMI 40.0-44.9, adult Z68.41 Active 382915889 Problem Type 2 diabetes mellitus with hyperglycemia E11.65 Active 084865667387230 Problem S/P cholecystectomy Z90.49 Active 506164561 Problem Other chronic pain G89.29 Active 01799247 Problem Seasonal allergic rhinitis, unspecified allergic rhinitis trigger J30.2 Active 520612700 ALLERGIES Substance Reaction Event Type Date Status Penicillin V Potassium Unknown Drug Allergy May, Active Doxycycline Hyclate hives Drug Allergy May, Active IV contrast dye Unknown Non Drug Allergy May, Active ENCOUNTERS Encounter Location Date Diagnosis [place] [id number] [place] [address]84- 3107 January, Medicare annual wellness visit, initial Z00.00 [place] [id number] [place] [address] 43518- 5636 Dec, [place] [address] [place] [id number] [place] [address] 94440- 1057 Dec, Type 2 diabetes mellitus with hyperglycemia E11.65 ; Non- insulin dependent type 2 diabetes mellitus E11.9 ; BMI 40.0-44.9, adult Z68.41 ; Chronic bronchitis, unspecified chronic bronchitis type J42 ; Muscle cramp R25.2 and Incisional hernia, without obstruction or gangrene K43.2 [place] [address] [place] [id number] [place] [address] 70652- 0915 Nov, [facility] [place] [address] [address] [place] [id number] [place] [address] 89992 -6876 Nov, Abdominal pain, unspecified abdominal location R10.9 ; Constipation, unspecified constipation type K59.00 and BMI 40.0-44.9, adult Z68.41 [place] [address] [place] [id number] [place] [address] 95710- 0036 Nov, [place] [address] [address]- [address] Oct, [place] [address] 83480- 5714 08 Oct, 2017 [place] [address] 93515- 2613 05 Oct, 2017 Breast pain, left N64.4 and BMI 40.0-44.9, adult Z68.41 [facility] [place] [id number] [place] [address] 69684 -7990 Sep, BMI 40.0-44.9, adult Z68.41 and Multiple wounds of skin R23.8 [facility] [place] [id number] [place] [address] 78124 -2337 Sep, Body aches R52 ; Dysuria R30.0 and Viral URI J06.9 [place] [id number] [place] [address] 62861- 6568 Aug, Nausea R11.0 ; Other viral agents as the cause of diseases classified elsewhere B97.89 and Acute upper respiratory infection, unspecified J06.9 [place] [address] [place] [id number] [place] [address] 55278- 2025 Aug, [place] [address] [place] [id number] [place] [address] 31932- 9824 Aug, [facility] [address] [address] Jul, Sore throat J02.9 and BMI 40.0-44.9, adult Z68.41 [place] [address] [place] [id number] [address] Jun, Herniation through surgical site K43.2 ; Leg numbness R20.0 ; Acute pain of left knee M25.562 ; Fall, initial encounter W19.XXXA ; Non- insulin dependent type 2 diabetes mellitus E11.9 ; Morbid obesity, unspecified obesity type E66.01 ; Other chronic pain G89.29 and Unspecified abdominal pain R10.9 [facility] [place] [address] [place] [id number] [place] [address] 19062 -3018 Jun, Muscle strain of left shoulder, initial encounter S46.912A [place] [address] [place] [id number] [place] [address] 68545- 4545 May, [place] [address] [place] [id number] [place] [address] 85399- 3814 07 May, 2017 [facility] [place] [address] [place] [id number] [place] [address] 35906 -1623 05 May, 2017 Acute pain of right knee M25.561 and Right knee sprain S83.91XA [place] [address] [place] [id number] [place] [address] 52573- 4658 Apr, [place] [address] [place] [id number] [place] [address] 03351- 5253 Apr, [place] [address] [place] [id number] [place] [address] 88960- 1010 Apr, 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 ; Morbid obesity, unspecified obesity type E66.01 ; Acute exacerbation of chronic obstructive pulmonary disease (COPD) J44.1 ; Pain in right knee M25.561 ; Screening for breast cancer Z12.31 and Generalized anxiety disorder F41.1 [place] [address] [place] [id number] [place] [address] 57419- 3953 Mar, [facility] [address] [place] [id number] [place] [address] 20106 [address]1295 Mar, Dysuria R30.0 and Acute cystitis without hematuria N30.00 [facility] [address] [place] [id number] [place] [address] 94634 -7536 Feb, [facility] [address] 98[address]21 Feb, Muscle cramps R25.2 and Seasonal allergic rhinitis, unspecified allergic rhinitis trigger J30.2 [place] [address] 52519- 1389 January, [place] [address] [place] [id number] [place] [address] 69987- 2592 January, Generalized anxiety disorder F41.1 [facility] [address] [place] [id number] [place] [address] 37574 -1350 January, Acute exacerbation of chronic obstructive pulmonary disease (COPD) J44.1 [facility] [place] [id number] [place] [address] 88806 -3930 Dec, Cramps, muscle, general R25.2 [place] [address] [place] [id number] [place] [address] 83633- 1920 Dec, [place] [address] 77611- 1312 Nov, Type 2 diabetes mellitus with hyperglycemia E11.65 and Non- insulin dependent type 2 diabetes mellitus E11.9 [place] [address] 48317- 5085 Oct, Generalized anxiety disorder F41.1 [facility] [address] [place] [id number] [place] [address] 74467 -6279 Oct, Vaginal candidiasis B37.3 [place] [address] 97780- 1717 09 Oct, 2016 Right upper quadrant abdominal pain R10.11 and S/P cholecystectomy Z90.49 [place] [address] 68819- 6152 Sep, Sore throat J02.9 and Right lower quadrant pain R10.31 [place] [address] 89585- 1877 Sep, Generalized anxiety disorder F41.1 [place] [address] 71611- 4641 Sep, [place] [address] 47128- 3594 Sep, [place] [address] 80700- 0366 Sep, Chest pain, unspecified type R07.9 ; Left lower quadrant pain R10.32 and Other acute postprocedural pain G89.18 [place] [address] 84058- 0028 Sep, Fever in other diseases R50.81 ; Acute non-recurrent maxillary sinusitis J01.00 and Cough R05 [place] [address] 23027- 2994 Sep, [facility] [address] 38[address] Sep, Dysuria R30.0 ; Sore throat J02.9 ; Chest pain, unspecified type R07.9 and Female genital lesion N94.9 [place] [address] 00792- 4973 Aug, Drug-induced constipation K59.03 ; Left arm pain M79.602 and S/P cholecystectomy Z90.49 [facility] [address] 12180 -35[address] Aug, Sore throat J02.9 and Strep pharyngitis J02.0 [facility] [address] [place] [id number] [place] [address] 11290- 5965 14 Aug, 2016 [facility] [address] 45686- 7974 13 Aug, 2016 [place] [address] 20041- 1108 Aug, [place] [address] 23567- 0011 Jul, [place] [address] 48343- 3711 Jul, Type 2 diabetes mellitus with hyperglycemia E11.65 ; 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.33 ; Morbid obesity, unspecified obesity type E66.01 and Right upper quadrant abdominal pain R10.11 [facility] [address] 583[address] Jul, Dysuria R30.0 ; Shortness of breath R06.02 ; Cardiomegaly I51.7 and COPD exacerbation J44.1 [place] [address] 34335- 0867 Jul, Bipolar disorder, unspecified F31.9 and Generalized anxiety disorder F41.1 [place] [address] [place] [id number] [place] [address] 85339- 1319 Jun, [place] [address] 53702- 2375 Jun, Sleep apnea, unspecified sleep apnea type G47.30 [place] [address] 15716- 2034 Jun, Bipolar disorder, unspecified F31.9 and Generalized anxiety disorder F41.1 [facility] [address] [place] [id number] [place] [address] 12609- 9423 May, Right lower quadrant abdominal pain 789.03 ; Diabetes mellitus type 2, uncontrolled 250.02 ; Bipolar disorder 296.80 ; COPD (chronic obstructive pulmonary disease) 496 ; Bug bite without infection 919.4 and Left upper quadrant pain 789.02 [place] [address] [place] [address] 39986- 5887 16 May, 2015 Right lower quadrant abdominal pain 789.03 [place] [address] [place] [id number] [place] [address] 42650- 0826 May, [place] [address] [place] [id number] [place] [address] 49771- 9058 Apr, [place] [address] [place] [id number] [place] [address] 06013- 3329 Apr, Skin infection 686.9 [place] [address] [place] [id number] [place] [address] 87725- 7913 Apr, Bipolar disorder 296.80 ; Diabetes mellitus type 2, uncontrolled 250.02 ; Hyperlipidemia 272.4 ; COPD (chronic obstructive pulmonary disease) 496 ; Sleep apnea in adult 327.23 and Routine adult health maintenance V70.0 [place] [address] [place] [id number] [place] [address] 69064- 6877 Apr, Bipolar disorder 296.80 IMMUNIZATIONS No Known Immunizations SOCIAL HISTORY Never Assessed REASON FOR VISIT Right knee pain from fall a couple weeks ago- was evaluated at hospital but did not have pain at the time, did not fall on right knee JStrasserRN PLAN OF CARE Activity Details Follow Up prn Reason: VITAL SIGNS Height 69 in 2017-06-03 Weight 274.0 lbs 2017-06-03 Temperature 97.5 degrees Fahrenheit 2017-06-03 Heart Rate 66 bpm 2017-06-03 Respiratory Rate 20 2017-06-03 BMI 40.46 kg/m2 2017-06-03 Blood pressure systolic 130 mmHg 2017-06-03 Blood pressure diastolic 90 mmHg 2017-06-03 MEDICATIONS Medication Instructions Dosage Frequency Start Date End Date Duration Status Albuterol Sulfate 108 (90 Base) MCG/ACT Inhalation every 4 hrs 2 puff as needed 4h Active Metformin HCl 1000 MG Orally twice a day 1 tablet 12h Active Meloxicam 7.5 MG Orally Once a day 1 tablet 24h Apr,b, 2018 90 days Active Breo Ellipta 100-25 MCG/INH Inhalation Once a day 1 puff 24h Active Glucocard Expression Test - In Vitro 2 times a day as directed 12h Apr, Active Lipitor 10 mg Orally Once a day 1 tablet 24h Active Omeprazole 40 mg Orally Once a day 1 capsule 24h Active Prozac 40 mg Orally Once a day 1 capsule in the morning 24h 90 days Active Flonase Allergy Relief 50 MCG/ACT Nasally Once a day 1 spray in each nostril 24h Active Albuterol Sulfate (2.5 MG/3ML) 0.083% Inhalation Three times a day 3 ml 8h Active RESULTS No Results PROCEDURES Procedure Date Ordered Result Body Site X-RAY EXAM OF KNEE, 3 Jun 03, 2017 [facility] VISIT ESTABLISHED PATIENT Jun 03, 2017 INSTRUCTIONS MEDICATIONS ADMINISTERED No Known Medications [...]
[2018-05-06] MEDS ORDERED: morphine PF (DURAMORPH) 10 MG/10 ML AMP ONE (10:17)
[2018-05-06] MEDS ORDERED: BUPIVACAINE 0.25% 30 ML (SENSORCAINE) VIAL ONE (10:17)
[2018-05-06] MEDS ORDERED: CLINDAMYCIN 600 MG/50 ML IVPB 50 ML IV ONE ×2 (10:19→10:45)
--- OUTSIDE RECORDS SUMMARY | 2018-05-06 10:30 | XMS REPORT | Continuity of Care Document ---
Author Author [facility] Organization [facility] Address Unknown Phone Unavailable Allergies Active Description Code Type Severity Reaction Onset Reported/Identified Relationship to Patient Clinical Status Yes IV DYE IV DYE Unknown N/A 04/09/2015 Yes No Known Drug Allergies [id number] Drug Allergy Unknown N/A 04/09/2015 Yes penicillin [id number] Drug Allergy Unknown N/A 04/09/2015 Yes Iodinated Contrast Media - IV Dye [id number] Drug Allergy Unknown N/A 12/19 Yes Iodinated Contrast Media - Oral and [id number] Drug Allergy Unknown N/A 10/2016 Yes ZOFRAN ZOFRAN Unknown N/A 12/05/2017 Yes Iodinated Contrast- Oral and IV Dye [id number] Drug Allergy Unknown N/A Yes ondansetron [id number] Drug Allergy Mild NAUSEA 04/20/2018 Yes penicillin [id number] Drug Allergy Unknown HAS RECEIVED RO 04/20/2018 Medications There is no data. Problems Date [...] S Ot 338.4 CHRONIC PAIN SYNDROME 04/18/2015 ORENDER DO, ANDERS S Ot 496 CHR AIRWAY OBSTRUCT NEC 04/18/2015 ORENDER DO, ANDERS S Ot 530.81 ESOPHAGEAL REFLUX 04/18/2015 ORENDER DO, ANDERS S Ot 536.2 PERSISTENT VOMITING 04/18/2015 ORENDER DO, ANDERS S Ot 599.0 URIN TRACT INFECTION NOS 04/18/2015 ORENDER DO, ANEDRS S Ot 729.1 MYALGIA AND MYOSITIS NOS 04/[facility] 787.91 DIARRHEA 04/18/[facility] S Ot 250.00 04/18/2015 OREND DO, ANDERS S Ot 338.4 04/18/2015 OREND DO, ANDERS S Ot 496 04/18/[facility] S Ot 530.81 04/18/2015 OREND DO, ANDERS S Ot 536.2 04/18/[facility] S Ot 599.0 04/18/[facility]ERS S Ot 729.1 04/18/[facility] S Ot 787.91 05/21/2015 [...] 623.5 NONINFECT VAG LEUKORRHEA 06/13/2015 JANELLE ESPITIA COUNTER STACKER Ot 250.00 DIAB MIRZA WO COMPL, TYPE II OR UNSPEC TY 06/13/2015 JANELLE ESPITIA COUNTER STACKER Ot 599.0 URIN TRACT INFECTION NOS 06/13/2015 JANELLE ESPITIA COUNTER STACKER Ot 789.03 ABDOMINAL PAIN, RIGHT LOWER QUADRANT 06/13/2015 JANELLE ESPITIA APRN Ot V58.69 OTH MED,LT,CURRENT USE 07/27/2015 JANELLE ESPITIA APRN Ot F17.211 NICOTINE DEPENDENCE, [...] 08/12/2015 JANELLE ESPITIA APRN Ot Z79.899 OTHER [facility] (CURRENT) DRUG THERAPY 08/14/2015 GELLENDER DO, EDI [...] JANELLE ESPITIA APRN Ot J40 09/19/2015 GELLENDER DO EDI A Ot J18.9 09/20/2015 GELLENDER DO, EDI Christianson Ot J18.9 09/24/2015 PATRICIA CULLEN, SIERRA Brady Ot M79.1 MYALGIA 09/24/2015 PATRICIA CULLEN, SIERRA Brady Ot R05 COUGH 09/24/2015 SIERRA GOMEZ MD Ot R07.81 PLEURODYNIA 10/05/2015 JANELLE ESPITIA COUNTER STACKER Ot F17.211 10/05/2015 JANELLE ESPITIA COUNTER STACKER Ot J40 10/11/2015 JANELLE ESPITIA COUNTER STACKER Ot F17.211 10/11/2015 JANELLE ESPITIA COUNTER STACKER Ot J40 10/13/2015 GELLENDER DO, EDI Christianson Ot J40 10/14/2015 DAVID CULLEN, LAYTON Spencer Ot F17.211 NICOTINE DEPENDENCE, CIGARETTES, IN [place] 10/14/2015 DAVID CULLEN, LAYTON Spencer Ot J44.9 CHRONIC OBSTRUCTIVE PULMONARY DISEASE, U 10/14/2015 DAVID CULLEN, LAYTON Spencer Ot R07.89 OTHER CHEST PAIN 10/14/2015 DAVID CULLEN, LAYTON Spencer Ot R11.0 NAUSEA 10/16/2015 EDI FAUSTIN DO Ot Z12.31 10/16/2015 KISHA BALDWIN MD Ot M75.112 10/16/2015 RAMIN LOU EDI Christianson Ot J18.9 10/16/2015 ZURIBJDER DO EDI Christianson Ot J40 10/25/2015 GELBJDER DOEDI Meghan Ot J40 10/25/2015 KISHA BALDWIN MD Ot [...] GLENOID LABRUM LESION OF UNSP S 11/10/2015 LORENA CULLEN, KISHA Justice Ot G47.33 OBSTRUCTIVE SLEEP APNEA (ADULT) (PEDIATR 11/13/2015 GELGREG DO, EDI A Ot Z12.31 11/13/2015 NICOLASA CULLEN, KISHA Justice Ot M75.112 11/13/2015 [facility] A Ot J18.9 11/13/2015 GELGREG DO, EDI A Ot J40 11/13/2015 NICOLASA CULLEN, KISHA Justice Ot M75.102 11/13/2015 NICOLASA CULLEN, KISHA P Ot Z01.818 11/13/2015 NICOLASA CULLEN, KISHA P Ot Z11.2 11/13/2015 [facility] LOU Ot Z12.31 11/13/2015 KISHA BALDWIN MD Ot M75.112 11/13/2015 [facility] LOU Ot J18.9 11/13/2015 [facility] A Ot J40 11/13/2015 KISHA BALDWIN MD Ot M75.102 11/13/2015 KISHA BALDWIN MD Ot Z01.818 11/13/2015 KISHA BALDWIN MD P Ot Z11.2 11/18/2015 RADHA CULLEN, CHELSI A Ot J40 BRONCHITIS, NOT SPECIFIED ACUTE OR CH 12/11/2015 LORENA CULLEN, KISHA P Ot R13.19 12/11/2015 LORENA CULLEN, KISHA P Ot R49.0 12/13/2015 LORENA CULLEN, KISHA P Ot R13.19 12/13/2015 LORENA CULLEN, KISHA P Ot R49.0 12/15/2015 NICOLASA CULLEN, KISHA Justice Ot L72.9 FOLLICULAR CYST OF THE SKIN AND SUBCUTAN 12/15/2015 NICOLASA CULLEN, KISHA Justice Ot Z01.818 ENCOUNTER FOR OTHER PREPROCEDURAL EXAMIN 12/16/2015 RADHA CULLEN, CHELSI A Ot J40 BRONCHITIS, NOT SPECIFIED ACUTE OR CH 12/16/2015 RADHA CULLEN, CHELSI A Ot R09.1 PLEURISY 12/18/2015 RADHA CULLEN, CHELSI A Ot J40 12/18/2015 RADHA CULLEN, CHELSI A Ot R09.1 12/18/2015 RADHA CULLEN, CHELSI A Ot J40 12/18/2015 RADHA CULLEN, CHELSI A Ot R09.1 12/19/2015 LORENA CULLEN, KISHA P Ot R13.10 12/19/2015 EDI FAUSTIN DO Ot Z12.31 12/19/2015 NICOLASA CULLEN, KISHA P Ot M75.112 12/19/2015 EDI FAUSTIN DO Ot J18.9 12/19/2015 EDI FAUSTIN DO Ot J40 12/19/2015 NICOLASA CULLEN, KISHA Justice Ot M75.102 12/19/2015 NICOLASA CULLEN, KISHA P Ot Z01.818 12/19/2015 NICOLASA CULLEN, KISHA P Ot Z11.2 12/19/2015 LORENA CULLEN, KISHA P Ot R13.19 12/19/2015 LORENA CULLEN, KISHA P Ot R49.0 12/19/2015 LORENA CULLEN, KISHA P Ot R13.10 12/20/2015 NICOLASA CULLEN, KISHA P Ot E11.9 TYPE 2 DIABETES MELLITUS WITHOUT COMPLIC 12/20/2015 NICOLASA CULLEN, KISHA P Ot E78.0 PURE HYPERCHOLESTEROLEMIA 12/20/2015 NICOLASA CULLEN, KISHA P Ot J32.9 CHRONIC SINUSITIS, UNSPECIFIED 12/20/2015 NICOLASA CULLEN, KISHA P Ot J44.9 CHRONIC OBSTRUCTIVE PULMONARY DISEASE, U 12/20/2015 NICOLASA CULLEN, KISHA Justice Ot M67.441 GANGLION, RIGHT HAND 12/20/2015 NICOLASA CULLEN, KISHA P Ot Z11.2 ENCOUNTER FOR SCREENING FOR OTHER BACTER 12/20/2015 EDI FAUSTIN DO Ot R07.81 12/21/2015 NICOLASA CULLEN, KISHA P Ot E11.9 12/21/2015 NICOLASA CULLEN, KISHA P Ot E78.0 12/21/2015 NICOLASA CULLEN, KISHA P Ot J32.9 12/21/2015 NICOLASA CULLEN, KISHA P Ot J44.9 12/21/2015 NICOLASA CULLEN, KISHA Justice Ot M67.441 12/21/2015 NICOLASA CULLEN, KISHA P Ot Z11.2 12/25/2015 EDI FAUSTIN DO Ot R07.81 01/01/2016 LORENA CULLEN, KISHA Justice Ot R13.10 01/12/2016 EDI FAUSTIN DO Ot R07.81 PLEURODYNIA 01/19/2016 EDI FAUSTIN DO Ot Z12.31 ENCNTR SCREEN MAMMOGRAM FOR MALIGNANT NE 01/19/2016 KISHA BALDWIN MD Ot M75.112 INCOMPLETE ROTATR-CUFF TEAR/RUPTR OF L S 01/19/2016 EDI FAUSTIN DO Ot J18.9 PNEUMONIA, UNSPECIFIED ORGANISM 01/19/2016 EDI FAUSTIN DO, Ot J40 BRONCHITIS, NOT [...] DIABETES MELLITUS WITHOUT COMPLIC 01/19/2016 JANELLE ESPITIA COUNTER STACKER Ot I10 ESSENTIAL (PRIMARY) HYPERTENSION 01/19/2016 JANELLE [...] APRN Ot R06.02 SHORTNESS OF BREATH 01/26/2016 PATRICIA CULLEN, SIERRA Brady Ot K76.0 FATTY (CHANGE OF) LIVER, NOT [...] 02/14/2016 KISHA BALDWIN MD Ot Z79.899 OTHER [facility] (CURRENT) DRUG THERAPY 02/14/2016 MAJOR GIPSON APRN Ot J30.9 ALLERGIC RHINITIS, UNSPECIFIED 02/14/2016 MAJOR GIPSON APRN Ot R06.02 SHORTNESS OF BREATH 02/15/2016 KISHA BALDWIN MD Ot 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 02/15/2016 KISHA BALDWIN MD Ot E11.9 TYPE 2 DIABETES MELLITUS WITHOUT COMPLIC 02/15/2016 KISHA BALDWIN MD, Ot 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 02/16/2016 SIERRA GOMEZ MD Ot K76.0 FATTY (CHANGE OF) LIVER, NOT ELSEWHERE C 02/16/2016 SIERRA GOMEZ MD Ot M79.602 PAIN IN LEFT ARM 02/16/2016 SIERRA GOMEZ MD Ot M79.605 PAIN IN LEFT LEG 02/16/2016 SIERRA GOMEZ MD Ot M79.7 FIBROMYALGIA 02/16/2016 SIERRA GOMEZ MD Ot R07.89 OTHER CHEST PAIN 02/21/2016 EDI FAUSTIN DO Ot Z12.31 ENCNTR SCREEN MAMMOGRAM FOR MALIGNANT NE 02/21/2016 KISHA BALDWIN MD Ot M75.112 INCOMPLETE ROTATR-CUFF TEAR/RUPTR OF L S 02/21/2016 EDI FAUSTIN DO Ot J18.9 PNEUMONIA, UNSPECIFIED ORGANISM 02/21/2016 EDI FAUSTIN DO, Ot J40 BRONCHITIS, NOT [...] CARRILLO MD Ot R13.10 DYSPHAGIA, UNSPECIFIED 02/21/2016 EDI FAUSTIN DO Ot R07.81 PLEURODYNIA 02/21/2016 MAJOR GIPSON APRN Ot J30.9 ALLERGIC RHINITIS, UNSPECIFIED 02/21/2016 MAJOR GIPSON COUNTER STACKER Ot R06.02 SHORTNESS OF BREATH 02/22/2016 EDI FAUSTIN DO Ot Z12.31 ENCNTR SCREEN MAMMOGRAM FOR MALIGNANT NE 02/22/2016 KISHA BALDWIN MD Ot M75.112 INCOMPLETE ROTATR-CUFF TEAR/RUPTR OF L S 02/22/2016 EDI FAUSTIN DO Ot J18.9 PNEUMONIA, UNSPECIFIED ORGANISM 02/22/2016 EDI FAUSTIN DO, Ot J40 BRONCHITIS, NOT SPECIFIED ACUTE OR CH 02/22/2016 KISHA BALDWIN MD Ot M75.102 UNSP ROTATR-CUFF TEAR/RUPTR OF LEFT SHOU 02/22/2016 KISHA BALDWIN MD Ot Z01.818 ENCOUNTER FOR OTHER PREPROCEDURAL EXAMIN 02/22/2016 NICOLASA CULLEN, KISHA Justice Ot Z11.2 ENCOUNTER FOR SCREENING FOR OTHER BACTER 02/22/2016 LORENA CULLEN, KISHA Justice Ot R13.19 OTHER DYSPHAGIA 02/22/2016 KISHA CARRILLO MD Ot R49.0 DYSPHONIA 02/22/2016 KISHA CARRILLO MD Ot R13.10 DYSPHAGIA, UNSPECIFIED 02/22/2016 GELEDI GARZA DO A Ot R07.81 PLEURODYNIA 02/22/2016 MAJOR GIPSON APRN [...] Ot J98.4 OTHER DISORDERS OF LUNG 03/27/2016 LUNA LEGER MD Ot K76.0 FATTY (CHANGE [...] DO Ot R06.02 SHORTNESS OF BREATH 05/01/2016 NICOLASA CULLEN, KISHA Justice Ot M94.262 CHONDROMALACIA, LEFT KNEE 05/01/2016 ZAKISHA AGUDELO MD Ot Z01.818 ENCOUNTER FOR OTHER PREPROCEDURAL [...] 05/08/2016 KISHA BALDWIN MD Ot 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 05/08/2016 KISHA BALDWIN MD [...] 05/09/2016 KISHA BALDWIN MD Ot 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 05/09/2016 KISHA BALDWIN MD [...] 05/10/2016 KISHA BALDWIN MD Ot 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 05/10/2016 KISHA BALDWIN MD, [...] (SEVERE) OBESITY DUE TO EXCESS CA 05/15/2016 TRINITYZAHIRA HERNÁNDEZ DO Ot J30.9 ALLERGIC RHINITIS, UNSPECIFIED 05/15/2016 TRINITY LOU ZAHIRA Kramer Ot R06.02 SHORTNESS OF BREATH 05/15/2016 TRINITY LOU ZAHIRA Kramer Ot E66.01 MORBID (SEVERE) OBESITY DUE TO EXCESS CA 05/15/2016 TRINITY ZAHIRA LOU Ot J30.9 ALLERGIC RHINITIS, UNSPECIFIED 05/15/2016 TRINITYBETTY LOU ZAHIRA Nia Ot R06.02 SHORTNESS OF BREATH 05/15/2016 AFRIAC CULLEN, LUNA Christianson Ot R07.89 OTHER CHEST PAIN 05/15/2016 AFR[place] CULLEN, LUNA Christianson Ot Z98.89 OTHER SPECIFIED POSTPROCEDURAL STATES 05/15/2016 [...] SHORTNESS OF BREATH 05/15/2016 TRINITY LOU ZAHIRA Nia Ot E66.01 MORBID (SEVERE) OBESITY DUE TO EXCESS CA 05/15/2016 TRINITY LOU ZAHIRA Nia Ot J30.9 ALLERGIC RHINITIS, UNSPECIFIED 05/15/2016 TRINITY LOU ZAHIRA Kramer Ot R06.02 SHORTNESS OF BREATH 05/15/2016 TRINITY LOU ZAHIRA Kramer Ot E66.01 MORBID (SEVERE) OBESITY DUE TO EXCESS CA 05/15/2016 TRINITY LOU ZAHIRA Kramer Ot J30.9 ALLERGIC RHINITIS, UNSPECIFIED 05/15/2016 TRINITY LOU ZAHIRA Kramer Ot R06.02 SHORTNESS OF BREATH 05/16/2016 AFRICA CULLNE, LUNA Christianson Ot R07.89 OTHER CHEST PAIN 05/16/2016 AFR[place] CULLEN, LUNA Christianson Ot Z98.89 OTHER SPECIFIED POSTPROCEDURAL STATES 05/24/2016 [...] DOZAHIRA Ot J30.9 ALLERGIC RHINITIS, UNSPECIFIED 05/24/2016 ZAHIRA PETERSEN DO Ot R06.02 SHORTNESS OF BREATH 05/24/2016 GELLENDER DOEDI Ot N64.4 MASTODYNIA 05/27/2016 GELLENDER EDI LOU Ot N64.4 MASTODYNIA 06/09/2016 LAYTON HERNANDEZ MD Ot E11.9 TYPE 2 DIABETES MELLITUS WITHOUT COMPLIC 06/09/2016 LAYTON HERNANDEZ MD T Ot I10 ESSENTIAL (PRIMARY) HYPERTENSION 06/09/2016 LAYTON HERNANDEZ MD Ot N39.0 URINARY TRACT INFECTION, SITE NOT SPECIF 06/09/2016 LAYTON HERNANDEZ MD Ot R05 COUGH 06/09/2016 LAYTON HERNANDEZ MD Ot R42 DIZZINESS AND GIDDINESS 06/09/2016 LAYTON HERNANDEZ MD Ot Z79.899 OTHER [facility] (CURRENT) DRUG THERAPY 06/11/2016 LAYTON HERNANDEZ MD Ot E11.9 TYPE 2 DIABETES MELLITUS WITHOUT COMPLIC 06/11/2016 LAYTON HERNANDEZ MD Ot I10 ESSENTIAL (PRIMARY) HYPERTENSION 06/11/2016 LAYTON HERNANDEZ MD Ot N39.0 URINARY TRACT INFECTION, SITE NOT SPECIF 06/11/2016 LAYTON HERNANDEZ MD Ot R05 COUGH 06/11/2016 LAYTON HERNANDEZ MD Ot R42 DIZZINESS AND GIDDINESS 06/11/2016 LAYTON HERNANDEZ MD Ot 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 06/13/2016 EDI FAUSTIN DO [...] ENCOUNTER FOR SCREENING FOR OTHER BACTER 06/13/2016 LORENA CULLEN, KISHA Justice Ot R13.19 OTHER DYSPHAGIA 06/13/2016 KISHA CARRILLO [...] DO Ot N64.4 MASTODYNIA 06/18/2016 JANELLE ESPITIA COUNTER STACKER Ot E11.9 TYPE 2 DIABETES MELLITUS WITHOUT COMPLIC 06/18/2016 JANELLE ESPITIA COUNTER STACKER Ot I10 ESSENTIAL (PRIMARY) HYPERTENSION 06/18/2016 JANELLE ESPITIA COUNTER STACKER Ot J44.9 CHRONIC OBSTRUCTIVE PULMONARY DISEASE, U 06/18/2016 JANELLE ESPITIA COUNTER STACKER Ot R10.31 RIGHT LOWER QUADRANT PAIN 06/18/2016 JANELLE ESPITIA COUNTER STACKER Ot R11.0 NAUSEA 06/18/2016 JANELLE ESPITIA COUNTER STACKER Ot 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 06/19/2016 JANELLE ESPITIA COUNTER STACKER Ot E11.9 TYPE 2 DIABETES MELLITUS WITHOUT COMPLIC 06/19/2016 JANELLE ESPITIA COUNTER STACKER Ot I10 ESSENTIAL (PRIMARY) HYPERTENSION 06/19/2016 JANELLE ESPITIA COUNTER STACKER Ot J44.9 CHRONIC OBSTRUCTIVE PULMONARY DISEASE, U 06/19/2016 JANELLE ESPITIA APRN Ot R10.31 RIGHT LOWER QUADRANT PAIN 06/19/2016 JANELLE ESPITIA APRN Ot R11.0 NAUSEA 06/19/2016 JANELLE ESPITIA APRN Ot Z79.899 [facility] (CURRENT) DRUG THERAPY 06/20/2016 JANELLE ESPITIA APRN Ot E11.9 TYPE 2 DIABETES MELLITUS WITHOUT COMPLIC 06/20/2016 JANELLE ESPITIA COUNTER STACKER Ot I10 ESSENTIAL (PRIMARY) HYPERTENSION 06/20/2016 JANELLE ESPITIA APRN Ot J44.9 CHRONIC OBSTRUCTIVE PULMONARY DISEASE, U 06/20/2016 JANELLE ESPITIA APRN Ot R10.31 RIGHT LOWER QUADRANT PAIN 06/20/2016 JANELLE ESPITIA APRN Ot R11.0 NAUSEA 06/20/2016 JANELLE ESPITIA COUNTER STACKER Ot Z79.899 OTHER [facility] (CURRENT) DRUG THERAPY 06/23/2016 ZAHIRA PETERSEN DO [...] 07/02/2016 LUNA LEGER MD Ot 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 07/03/2016 LUNA LEGER MD Ot E11.9 TYPE 2 DIABETES MELLITUS WITHOUT COMPLIC 07/03/2016 LUNA LEGER MD Ot I10 ESSENTIAL (PRIMARY) HYPERTENSION 07/03/2016 LUNA LEGER MD, Ot J44.9 CHRONIC OBSTRUCTIVE PULMONARY DISEASE, U 07/03/2016 LUNA LEGER MD Ot R10.31 RIGHT LOWER QUADRANT PAIN 07/03/2016 LUNA LEGER MD Ot R11.10 VOMITING, UNSPECIFIED 07/03/2016 LUNA LEGER MD Ot 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 07/12/2016 EDI FAUSTIN DO Ot R10.11 RIGHT UPPER QUADRANT PAIN 07/18/2016 JANELLE ESPITIA APRN Ot E11.9 TYPE 2 DIABETES MELLITUS WITHOUT COMPLIC 07/18/2016 JNAELLE ESPITIA APRN Ot I10 ESSENTIAL (PRIMARY) HYPERTENSION 07/18/2016 JANELLE ESPITIA APRN Ot J44.0 CHRONIC OBSTRUCTIVE PULMON DISEASE W ACU 07/18/2016 JANELLE ESPITIA APRN Ot R05 COUGH 07/18/2016 JANELLE ESPITIA APRN Ot R09.1 PLEURISY 07/18/2016 JANELLE ESPITIA APRN Ot Z79.84 [facility] (CURRENT) USE OF ORAL HYPOGLYC 07/18/2016 JANELLE ESPITIA APRN Ot 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 07/19/2016 JANELLE ESPITIA APRN Ot E11.9 TYPE 2 DIABETES MELLITUS WITHOUT COMPLIC 07/19/2016 JANELLE ESPITIA APRN Ot I10 ESSENTIAL (PRIMARY) HYPERTENSION 07/19/2016 JANELLE ESPITIA APRN Ot J44.0 CHRONIC OBSTRUCTIVE PULMON DISEASE W ACU 07/19/2016 JANELLE ESPITIA APRN Ot R05 COUGH 07/19/2016 JANELLE ESPITIA COUNTER STACKER Ot R09.1 PLEURISY 07/19/2016 JANELLE ESPITIA COUNTER STACKER Ot Z79.84 [employer] (CURRENT) USE OF ORAL HYPOGLYC 07/19/2016 JANELLE ESPITIA COUNTER STACKER Ot Z79.899 OTHER [facility] (CURRENT) DRUG THERAPY 07/23/2016 GELLENDER , EID A Ot R10.12 LEFT UPPER QUADRANT PAIN 08/01/2016 GELLENDER , EDI A Ot R10.11 RIGHT UPPER QUADRANT PAIN 08/02/2016 [...] U 08/03/2016 CHRISTO VIDAL MD Ot Z79.84 [facility] (CURRENT) USE OF ORAL HYPOGLYC 08/03/2016 CHRISTO VIDAL MD Ot 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 08/05/2016 ZURIBJEDI MAO DO A Ot R10.12 LEFT UPPER QUADRANT PAIN 08/05/2016 CHRISTO VIDAL MD Ot E11.9 TYPE 2 DIABETES MELLITUS WITHOUT COMPLIC 08/05/2016 CHRISTO VIDAL MD Ot F41.9 ANXIETY DISORDER, UNSPECIFIED 08/05/2016 CHRISTO VIDAL MD Ot I10 ESSENTIAL (PRIMARY) HYPERTENSION 08/05/2016 CHRISTO VIDAL MD Ot J02.9 ACUTE PHARYNGITIS, UNSPECIFIED 08/05/2016 CHRISTO VIDAL MD Ot J44.9 CHRONIC OBSTRUCTIVE PULMONARY DISEASE, U 08/05/2016 YOUNG CULLEN, CHRISTO Huston Ot Z79.84 [facility] (CURRENT) USE OF ORAL HYPOGLYC 08/05/2016 YOUNG CULLEN, CHRISTO Huston Ot 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 08/09/2016 YOUNG CULLEN, CHRISTO Huston Ot E11.9 TYPE 2 DIABETES MELLITUS WITHOUT COMPLIC 08/09/2016 YOUNG CULLEN, CHRISTO Huston Ot F41.9 ANXIETY DISORDER, UNSPECIFIED 08/09/2016 YOUNG CULLEN, CHRISTO Huston Ot I10 ESSENTIAL (PRIMARY) HYPERTENSION 08/09/2016 YOUNG CULLEN, CHRISTO Huston Ot J02.9 ACUTE PHARYNGITIS, UNSPECIFIED 08/09/2016 YOUNG CULLEN, CHRISTO Huston Ot J44.9 CHRONIC OBSTRUCTIVE PULMONARY DISEASE, U 08/09/2016 YOUNG CULLEN, CHRISTO Huston Ot Z79.84 [employer] (CURRENT) USE OF ORAL HYPOGLYC 08/09/2016 CHRISTO VIDAL MD Ot 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 08/14/2016 EDI FAUSTIN DO Ot R10.11 RIGHT UPPER QUADRANT PAIN 08/15/2016 JANELLE ESPITIA COUNTER STACKER Ot E11.9 TYPE 2 DIABETES MELLITUS WITHOUT COMPLIC 08/15/2016 JANELLE ESPITIA APRN Ot F41.9 ANXIETY DISORDER, UNSPECIFIED 08/15/2016 JANELLE ESPITIA COUNTER STACKER Ot I10 ESSENTIAL (PRIMARY) HYPERTENSION 08/15/2016 JANELLE ESPITIA APRN Ot J44.9 CHRONIC OBSTRUCTIVE PULMONARY DISEASE, U 08/15/2016 JANELLE ESPITIA COUNTER STACKER Ot R07.89 OTHER CHEST PAIN 08/15/2016 JANELLE ESPITIA COUNTER STACKER Ot R07.9 CHEST PAIN, UNSPECIFIED 08/15/2016 JANELLE ESPITIA COUNTER STACKER Ot Z79.84 [employer] (CURRENT) USE OF ORAL HYPOGLYC 08/15/2016 JANELLE ESPITIA COUNTER STACKER Ot 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 08/15/2016 JANELLE ESPITIA COUNTER STACKER Ot E11.9 TYPE 2 DIABETES MELLITUS WITHOUT COMPLIC 08/15/2016 JANELLE ESPITIA APRN Ot F41.9 ANXIETY DISORDER, UNSPECIFIED 08/15/2016 JANELLE ESPITIA COUNTER STACKER Ot I10 ESSENTIAL (PRIMARY) HYPERTENSION 08/15/2016 JANELLE ESPITIA COUNTER STACKER Ot J44.9 CHRONIC OBSTRUCTIVE PULMONARY DISEASE, U 08/15/2016 JANELLE ESPITIA APRN Ot R07.89 OTHER CHEST PAIN 08/15/2016 JANELLE ESPITIA APRN Ot R07.9 CHEST PAIN, UNSPECIFIED 08/15/2016 JANELLE ESPITIA COUNTER STACKER Ot Z79.84 [facility] (CURRENT) USE OF ORAL HYPOGLYC 08/15/2016 JANELLE ESPITIA COUNTER STACKER Ot 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 08/21/2016 ZAHIRA PETERSEN DO Ot E66.01 MORBID (SEVERE) OBESITY DUE TO EXCESS CA 08/21/2016 ZAHIRA PETERSEN DO, Ot J30.9 ALLERGIC RHINITIS, UNSPECIFIED 08/21/2016 ZAHIRA PETERSEN DO Ot R06.02 SHORTNESS OF BREATH 08/21/2016 ZAHIRA PETERSEN DO Ot R91.1 SOLITARY PULMONARY NODULE 08/24/2016 JANELLE ESPITIA APRN Ot E11.9 TYPE 2 DIABETES MELLITUS WITHOUT COMPLIC 08/24/2016 JANELLE ESPITIA APRN Ot J44.9 CHRONIC OBSTRUCTIVE PULMONARY DISEASE, U 08/24/2016 JANELLE ESPITIA APRN Ot M54.5 LOW BACK PAIN 08/24/2016 JANELLE ESPITIA COUNTER STACKER Ot Z79.84 [facility] (CURRENT) USE OF ORAL HYPOGLYC 08/24/2016 JANELLE ESPITIA COUNTER STACKER Ot 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 08/26/2016 JANELLE ESPITIA APRN Ot E11.9 TYPE 2 DIABETES MELLITUS WITHOUT COMPLIC 08/26/2016 JANELLE ESPITIA APRN Ot J44.9 CHRONIC OBSTRUCTIVE PULMONARY DISEASE, U 08/26/2016 JANELLE ESPITIA APRN Ot M54.5 LOW BACK PAIN 08/26/2016 JANELLE ESPITIA APRN Ot Z79.84 [facility] (CURRENT) USE OF ORAL HYPOGLYC 08/26/2016 JANELLE ESPITIA COUNTER STACKER Ot 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 09/04/2016 ZAHIRA PETERSEN DO Ot E66.01 MORBID (SEVERE) OBESITY DUE TO EXCESS CA 09/04/2016 ZAHIRA PETERSEN DO, Ot J30.9 ALLERGIC RHINITIS, UNSPECIFIED 09/04/2016 ZAHIRA PETERSEN DO Ot R06.02 SHORTNESS OF BREATH 09/04/2016 ZAHIRA PETERSEN DO Ot R91.1 SOLITARY PULMONARY NODULE 09/04/2016 DONNA CULLEN, NICKY Lawrence Ot E11.65 TYPE 2 DIABETES MELLITUS WITH HYPERGLYCE 09/04/2016 NICKY THOMPSON MD Ot R10.11 RIGHT UPPER QUADRANT PAIN 09/13/2016 EDI FAUSTIN DO Ot Z12.31 ENCNTR SCREEN MAMMOGRAM FOR MALIGNANT NE 09/13/2016 KISHA BALDWIN MD Ot M75.112 INCOMPLETE ROTATR-CUFF TEAR/RUPTR OF L S 09/13/2016 EDI FAUSTIN DO Ot J18.9 PNEUMONIA, UNSPECIFIED ORGANISM 09/13/2016 EDI FAUSTIN DO, Ot J40 BRONCHITIS, NOT [...] DO Ot R91.1 SOLITARY PULMONARY NODULE 09/13/2016 RAMIN DO EDI Meghan Ot N64.4 MASTODYNIA 09/13/2016 ZAHIRA PETERSEN DO Ot E66.01 MORBID (SEVERE) OBESITY DUE TO EXCESS CA 09/13/2016 TRINITY LOU ZAHIRA Kramer Ot J30.9 ALLERGIC RHINITIS, UNSPECIFIED 09/13/2016 ZAHIRA PETERSEN DO Ot R06.02 SHORTNESS OF BREATH 09/13/2016 RAMIN LOUEDI Ot R10.12 LEFT UPPER QUADRANT PAIN 09/13/2016 ZURIBJDAYLIN EDI LOU Ot R10.11 RIGHT UPPER QUADRANT PAIN 09/13/2016 [...] 09/13/2016 LAYTON HERNANDEZ MD Ot 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 09/13/2016 LAYTON HERNANDEZ MD Ot Z87.891 PERSONAL HISTORY OF NICOTINE DEPENDENCE 09/16/2016 LAYTON HERNANDEZ MD Ot E11.9 TYPE 2 DIABETES MELLITUS WITHOUT COMPLIC 09/16/2016 DAVID CULLEN, LAYTON Spencer Ot I10 ESSENTIAL (PRIMARY) HYPERTENSION 09/16/2016 DAVID CULLEN, LAYTON Spencer Ot J02.0 STREPTOCOCCAL PHARYNGITIS 09/16/2016 DAVID CULLEN, LAYTON Spencer Ot J02.9 ACUTE PHARYNGITIS, UNSPECIFIED 09/16/2016 LAYTON HERNNADEZ MD Ot J44.9 CHRONIC OBSTRUCTIVE PULMONARY DISEASE, U 09/16/2016 LAYTON HERNANDEZ MD Ot K59.00 CONSTIPATION, UNSPECIFIED 09/16/2016 DAVID CULLEN, LAYTON Spencer Ot K82.9 DISEASE OF GALLBLADDER, UNSPECIFIED 09/16/2016 LAYTON HERNANDEZ MD Ot R11.2 NAUSEA WITH VOMITING, UNSPECIFIED 09/16/2016 LAYTON HERNANDEZ MD Ot 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 09/16/2016 LAYTON HERNANDEZ MD Ot Z87.891 PERSONAL HISTORY [...] Ot R10.11 RIGHT UPPER QUADRANT PAIN 10/03/2016 DONNA CULLEN, NICKY Lawrence Ot E11.65 TYPE [...] ENCOUNTER FOR SCREENING FOR OTHER BACTER 10/16/2016 LORENA CULLEN, KISHA Justice Ot R13.19 OTHER DYSPHAGIA 10/16/2016 KISHA CARRILLO MD Ot R49.0 DYSPHONIA 10/16/2016 KISHA CARRILLO MD Ot R13.10 DYSPHAGIA, UNSPECIFIED 10/16/2016 EDI FAUSTIN DO Ot R07.81 PLEURODYNIA 10/16/2016 MAJOR GIPSON APRN Ot J30.9 ALLERGIC RHINITIS, UNSPECIFIED 10/16/2016 MAJOR GIPSON APRN Ot R06.02 SHORTNESS OF BREATH 10/16/2016 ZAHIRA PETERSEN DO Ot E66.01 MORBID (SEVERE) OBESITY DUE TO EXCESS CA 10/16/2016 ZAHIRA PETERSEN DO Ot J30.9 ALLERGIC RHINITIS, UNSPECIFIED 10/16/2016 ZAHIRA PETERSEN DO Ot R06.02 SHORTNESS OF BREATH 10/16/2016 ZAHIRA PETERSEN DO Ot E66.01 MORBID (SEVERE) OBESITY DUE TO EXCESS CA 10/16/2016 ZAHIRA PETERSEN DO Ot J30.9 ALLERGIC RHINITIS, UNSPECIFIED 10/16/2016 ZAHIRA PETERSEN DO Ot R06.02 SHORTNESS OF BREATH 10/16/2016 ZAHIRA PETERSEN DO Ot R91.1 SOLITARY PULMONARY NODULE 10/16/2016 EDI FAUSTIN DO Ot N64.4 MASTODYNIA 10/16/2016 ZAHIRA PETERSEN DO Ot E66.01 MORBID (SEVERE) OBESITY DUE TO EXCESS CA 10/16/2016 ZAHIRA PETERSEN DO Ot J30.9 ALLERGIC RHINITIS, UNSPECIFIED 10/16/2016 ZAHIRA PETERSEN DO Ot R06.02 SHORTNESS OF BREATH 10/16/2016 RAMIN LOU EDI Christianson Ot R10.12 LEFT UPPER QUADRANT PAIN 10/16/2016 RAMIN LOU EDI Christianson Ot R10.11 RIGHT UPPER QUADRANT PAIN 10/16/2016 NICKY THOMPSON MD Ot E11.65 TYPE 2 DIABETES MELLITUS WITH HYPERGLYCE 10/16/2016 NICKY THOMPSON MD Ot R10.11 RIGHT UPPER QUADRANT PAIN 10/16/2016 LUNA LEGER MD Ot E11.9 TYPE 2 DIABETES MELLITUS WITHOUT COMPLIC 10/16/2016 LUNA LEGER MD, Ot J44.9 CHRONIC OBSTRUCTIVE PULMONARY DISEASE, U 10/16/2016 LUNA LEGER MD Ot R10.31 RIGHT LOWER QUADRANT PAIN 10/16/2016 LUNA LEGER MD Ot Z79.84 [facility] (CURRENT) USE OF ORAL HYPOGLYC 10/16/2016 LUNA LEGER MD Ot 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 10/16/2016 LUNA LEGER MD Ot Z90.49 ACQUIRED ABSENCE OF OTHER SPECIFIED PART 11/03/2016 CHRISTO VIDAL MD Ot J02.0 STREPTOCOCCAL PHARYNGITIS 11/03/2016 CHRISTO VIDAL MD Ot N39.0 URINARY TRACT INFECTION, SITE NOT SPECIF 11/03/2016 CHRISTO VIDAL MD Ot R05 COUGH 11/03/2016 CHRISTO VIDAL MD Ot R07.89 OTHER CHEST PAIN 11/03/2016 CHRISTO VIDAL MD Ot Z79.84 [employer] (CURRENT) USE OF ORAL HYPOGLYC 11/03/2016 CHRISTO VIDAL MD Ot Z87.891 PERSONAL HISTORY OF NICOTINE DEPENDENCE 11/05/2016 CHRISTO VIDAL MD Ot J02.0 STREPTOCOCCAL PHARYNGITIS 11/05/2016 CHRISTO VIDAL MD Ot N39.0 URINARY TRACT INFECTION, SITE NOT SPECIF 11/05/2016 YONUG CULLEN, CHRISTO Huston Ot R05 COUGH 11/05/2016 CHRISTO VIDAL MD Ot R07.89 OTHER CHEST PAIN 11/05/2016 CHRISTO VIDAL MD Ot Z79.84 [employer] (CURRENT) USE OF ORAL HYPOGLYC 11/05/2016 CHRISTO [...] DISEASE, U 11/22/2016 RAQUEL ROLDAN Ot 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 11/22/2016 RAQUEL ROLDAN Ot 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 11/25/2016 RAQUEL ROLDAN Ot 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 11/25/2016 RAQUEL ROLDAN Ot E11.9 TYPE 2 DIABETES MELLITUS WITHOUT COMPLIC 11/25/2016 RAQUEL ROLDAN Ot J44.9 CHRONIC OBSTRUCTIVE PULMONARY DISEASE, U 11/25/2016 RAQUEL ROLDAN Ot Z79.4 [facility] (CURRENT) USE OF INSULIN 11/25/2016 RAQUEL ROLDAN Ot 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 11/26/2016 PATRIC MONTERO MD Ot R10.31 RIGHT LOWER QUADRANT PAIN 11/28/2016 CECELIA CULLEN, Nia WILSON Ot E11.9 TYPE 2 DIABETES MELLITUS WITHOUT COMPLIC 11/28/2016 Nia RAI MD Ot E78.5 HYPERLIPIDEMIA, UNSPECIFIED 11/28/2016 Nia RAI MD Ot J44.9 CHRONIC OBSTRUCTIVE PULMONARY DISEASE, U 11/28/2016 Nia RAI MD Ot R07.9 CHEST PAIN, UNSPECIFIED 11/28/2016 CECELIA CULLEN, Nia WILSON Ot E11.9 TYPE [...] R10.31 RIGHT LOWER QUADRANT PAIN 12/19/2016 Nia RIA MD Ot E11.9 TYPE 2 DIABETES MELLITUS [...] RAI MD Ot E78.5 HYPERLIPIDEMIA, UNSPECIFIED 12/27/2016 CECELIA CULLEN, Nia WILSON Ot J44.9 CHRONIC OBSTRUCTIVE PULMONARY DISEASE, U 12/27/2016 CECELIA CULLEN, Nia WILSON Ot R07.9 CHEST PAIN, UNSPECIFIED 01/01/2017 CECELIA CULLEN, Nia WILSON Ot E11.9 TYPE 2 DIABETES MELLITUS WITHOUT COMPLIC 01/01/2017 CECELIA CULLEN, Nia WILSNO Ot E78.5 HYPERLIPIDEMIA, UNSPECIFIED 01/01/2017 Nia RAI MD Ot J44.9 CHRONIC OBSTRUCTIVE PULMONARY DISEASE, U 01/01/2017 Nia RAI MD Ot R07.9 CHEST PAIN, UNSPECIFIED 01/30/2017 JANELLE [...] HISTORY OF NICOTINE DEPENDENCE 02/09/2017 LAUREL SHEN MD Ot E11.9 TYPE 2 [...] STATUS 02/09/2017 LAUREL SHEN MD Ot Z79.82 [facility] (CURRENT) USE OF ASPIRIN 02/11/2017 LAUREL SHEN MD Ot E11.9 TYPE 2 DIABETES MELLITUS WITHOUT COMPLIC 02/11/2017 LAUREL SHEN MD Ot J44.9 CHRONIC OBSTRUCTIVE PULMONARY DISEASE, U 02/11/2017 LAUREL SHEN MD Ot S83.91XA SPRAIN OF UNSPECIFIED SITE OF RIGHT KNEE 02/11/2017 LAUREL SHEN MD Ot S89.91XA UNSPECIFIED INJURY OF RIGHT LOWER LEG, I 02/11/2017 LAUREL SHEN MD Ot W22.03XA WALKED INTO FURNITURE, INITIAL ENCOUNTER 02/11/2017 LAUREL SHEN MD Ot Y99.8 OTHER EXTERNAL CAUSE STATUS 02/11/2017 LAUREL SHEN MD Ot Z79.82 [facility] (CURRENT) USE OF ASPIRIN 02/27/2017 EDI FAUSTIN DO, Ot Z12.31 ENCNTR SCREEN MAMMOGRAM FOR MALIGNANT NE 02/27/2017 KISHA BALDWIN MD Ot M75.112 INCOMPLETE ROTATR-CUFF TEAR/RUPTR OF L S 02/27/2017 EDI FAUSTIN DO, Ot J18.9 PNEUMONIA, UNSPECIFIED ORGANISM 02/27/2017 EDI FAUSTIN DO, Ot J40 BRONCHITIS, NOT SPECIFIED ACUTE OR CH 02/27/2017 KISHA BALDWIN MD, Ot M75.102 UNSP ROTATR-CUFF [...] DO, Ot J30.9 ALLERGIC RHINITIS, UNSPECIFIED 02/27/2017 TRINITY DOZAHIRA Ot R06.02 SHORTNESS OF BREATH 02/27/2017 ZAHIRA PETERSEN DO Ot E66.01 MORBID (SEVERE) OBESITY DUE TO EXCESS CA 02/27/2017 ZAHIRA PETERSEN DO Ot J30.9 ALLERGIC RHINITIS, UNSPECIFIED 02/27/2017 ZAHIRA PETERSEN DO Ot R06.02 SHORTNESS OF BREATH 02/27/2017 ZAHIRA PETERSEN DO Ot R91.1 SOLITARY PULMONARY NODULE 02/27/2017 GELLENDAYLIN DOEDI A Ot N64.4 MASTODYNIA 02/27/2017 ZAHIRA PETERSEN DO Ot E66.01 MORBID (SEVERE) OBESITY DUE TO EXCESS CA 02/27/2017 ZAHIRA PETERSEN DO Ot J30.9 ALLERGIC RHINITIS, UNSPECIFIED 02/27/2017 ZAHIRA PETERSEN DO Ot R06.02 SHORTNESS OF BREATH 02/27/2017 ZURIBJDER DO, EDI A Ot R10.12 LEFT UPPER QUADRANT PAIN 02/27/2017 EDI FAUSTIN DO A Ot R10.11 RIGHT UPPER QUADRANT PAIN 02/27/2017 DONNA CULLEN, NICKY Lawrence Ot E11.65 TYPE 2 DIABETES MELLITUS WITH HYPERGLYCE 02/27/2017 NICKY THOMPSON MD Ot R10.11 RIGHT UPPER QUADRANT PAIN 02/27/2017 KYLAH CULLEN, PATRIC Saucedo Ot R10.31 RIGHT LOWER QUADRANT PAIN 02/27/2017 CECELIA CULLEN, Nia WILSON Ot E11.9 TYPE 2 DIABETES MELLITUS WITHOUT COMPLIC 02/27/2017 CECELIA CULLEN, Nia WILSON Ot E78.5 HYPERLIPIDEMIA, UNSPECIFIED 02/27/2017 Nia RAI MD Ot J44.9 CHRONIC OBSTRUCTIVE PULMONARY DISEASE, U 02/27/2017 Nia RAI MD Ot R07.9 CHEST PAIN, UNSPECIFIED 02/27/2017 Nia RAI MD Ot E11.9 TYPE 2 DIABETES MELLITUS WITHOUT COMPLIC 02/27/2017 Nia RAI MD Ot E78.5 HYPERLIPIDEMIA, UNSPECIFIED 02/27/2017 CECELIA CULLEN, [...] SHORTNESS OF BREATH 02/28/2017 EDI FAUSTIN DO Ot R10.12 LEFT UPPER QUADRANT PAIN 02/28/2017 EDI FAUSTIN DO A Ot R10.11 RIGHT UPPER QUADRANT PAIN 02/28/2017 NICKY THOMPSON MD Ot E11.65 TYPE 2 DIABETES MELLITUS WITH HYPERGLYCE 02/28/2017 NICKY THOMPSON MD Ot R10.11 RIGHT UPPER QUADRANT PAIN 02/28/2017 [...] WILSON Ot R07.9 CHEST PAIN, UNSPECIFIED 02/28/2017 ZAHIRA PETERSEN DO Ot E66.01 MORBID (SEVERE) OBESITY DUE TO EXCESS CA 02/28/2017 ZAHIRA PETERSEN DO Ot J30.9 ALLERGIC RHINITIS, UNSPECIFIED 02/28/2017 ZAHIRA PETERSEN DO Ot R06.02 SHORTNESS OF BREATH 02/28/2017 KISHA BALDWIN MD Ot M22.41 CHONDROMALACIA PATELLAE, RIGHT KNEE 02/28/2017 KISHA BALDWIN MD Ot Z01.818 ENCOUNTER FOR OTHER PREPROCEDURAL EXAMIN 02/28/2017 ZAKISHA AGUDELO MD, Ot Z11.2 ENCOUNTER FOR SCREENING FOR OTHER BACTER 03/04/2017 LAUREL SHEN MD Ot E11.9 TYPE 2 [...] STATUS 03/04/2017 LAUREL SHEN MD, Ot Z79.82 [facility] (CURRENT) USE OF ASPIRIN 03/05/2017 KISHA BALDWIN [...] 03/05/2017 KISHA BALDWIN MD, Ot Z79.899 OTHER [facility] (CURRENT) DRUG THERAPY 03/05/2017 KISHA BALDWIN MD Ot Z87.891 PERSONAL HISTORY [...] STATUS 03/06/2017 LAUREL SHEN MD Ot Z79.82 [employer] (CURRENT) USE OF ASPIRIN 03/06/2017 KISHA BALDWIN MD Ot E11.9 TYPE 2 DIABETES MELLITUS WITHOUT COMPLIC 03/06/2017 KISHA BALDWIN MD Ot E66.01 MORBID (SEVERE) OBESITY DUE TO EXCESS CA 03/06/2017 KISHA BALDWIN MD Ot E78.00 PURE HYPERCHOLESTEROLEMIA, UNSPECIFIED 03/06/2017 KISHA BALDWIN MD, Ot F31.9 BIPOLAR DISORDER, UNSPECIFIED 03/06/2017 KISHA BALDWIN MD Ot F32.9 MAJOR DEPRESSIVE [...] 03/06/2017 KISHA BALDWIN MD, Ot Z79.899 OTHER [facility] (CURRENT) DRUG THERAPY 03/06/2017 KISHA BALDWIN MD, Ot Z87.891 PERSONAL HISTORY OF NICOTINE DEPENDENCE 03/16/2017 RAQUEL ROLDAN Ot 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 03/16/2017 RAQUEL ROLDAN Ot E11.9 TYPE 2 DIABETES MELLITUS WITHOUT COMPLIC 03/16/2017 RAQUEL ROLDAN Ot J44.9 CHRONIC OBSTRUCTIVE PULMONARY DISEASE, U 03/16/2017 RAQUEL ROLDAN Ot 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 03/16/2017 RAQUEL ROLDAN Ot 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 04/08/2017 KISHA BALDWIN MD, [...] GASTRO-ESOPHAGEAL REFLUX DISEASE WITHOUT 04/08/2017 KISHA BALDWIN MD Ot M94.261 CHONDROMALACIA, RIGHT KNEE 04/08/2017 KISHA BALDWIN MD Ot Z68.41 BODY MASS INDEX (BMI) 40.0-44.9, ADULT 04/08/2017 KISHA BALDWIN MD, Ot 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 04/08/2017 KISHA BALDWIN MD, Ot Z87.891 PERSONAL HISTORY OF NICOTINE DEPENDENCE 04/29/2017 EDI FAUSTIN DO Ot Z12.31 ENCNTR SCREEN MAMMOGRAM FOR MALIGNANT NE 04/29/2017 KISHA BALDWIN MD Ot M75.112 INCOMPLETE ROTATR-CUFF TEAR/RUPTR OF L S 04/29/2017 EID FAUSTIN DO Ot J18.9 PNEUMONIA, UNSPECIFIED ORGANISM 04/29/2017 EDI FAUSTIN DO, Ot J40 BRONCHITIS, NOT SPECIFIED ACUTE OR CH 04/29/2017 KISAH BALDWIN MD Ot M75.102 UNSP ROTATR-CUFF TEAR/RUPTR [...] Ot R06.02 SHORTNESS OF BREATH 04/29/2017 RAMIN LOU, EDI A Ot R10.12 LEFT UPPER QUADRANT PAIN 04/29/2017 RAMIN DO, EDI A Ot R10.11 RIGHT UPPER QUADRANT PAIN 04/29/2017 DONNA CULLEN, NICKY Lawrence Ot E11.65 TYPE 2 DIABETES MELLITUS WITH HYPERGLYCE 04/29/2017 NICKY THOMPSON MD Ot R10.11 RIGHT UPPER QUADRANT PAIN 04/29/2017 PATRIC MONTERO MD Ot R10.31 RIGHT LOWER QUADRANT PAIN 04/29/2017 [...] E78.00 PURE HYPERCHOLESTEROLEMIA, UNSPECIFIED 04/29/2017 KISHA BALDWIN MD, Ot F31.9 BIPOLAR DISORDER, UNSPECIFIED 04/29/2017 KISHA BALDWIN MD, Ot F32.9 MAJOR DEPRESSIVE DISORDER, SINGLE EPISOD 04/29/2017 KISHA BALDWIN MD Ot G47.33 OBSTRUCTIVE SLEEP APNEA (ADULT) (PEDIATR 04/29/2017 KISHA BALDWIN MD Ot J44.9 CHRONIC OBSTRUCTIVE [...] 04/29/2017 KISHA BALDWIN MD Ot 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 04/29/2017 KISHA BALDWIN MD, [...] G47.30 SLEEP APNEA, UNSPECIFIED 04/30/2017 LAYTON HERNANDEZ MD Ot J44.9 CHRONIC OBSTRUCTIVE PULMONARY DISEASE, U 04/30/2017 LAYTON HERNANDEZ MD, Ot K21.9 GASTRO-ESOPHAGEAL REFLUX DISEASE WITHOUT 04/30/2017 LAYTON HERNANDEZ MD Ot M19.90 UNSPECIFIED OSTEOARTHRITIS, UNSPECIFIED 04/30/2017 LAYTON HERNANDEZ MD, Ot M54.6 PAIN IN THORACIC SPINE 04/30/2017 LAYTON HERNANDEZ MD, Ot M79.1 MYALGIA 04/30/2017 LAYTON HERNANDEZ MD, Ot R07.81 PLEURODYNIA 04/30/2017 LAYTON HERNANDEZ MD Ot R11.0 NAUSEA 04/30/2017 LAYTON HERNANDEZ MD, Ot R51 HEADACHE 04/30/2017 LAYTON HERNANDEZ MD, Ot Z79.84 [employer] (CURRENT) USE OF ORAL HYPOGLYC 04/30/2017 LAYTON [...] Ot F41.9 ANXIETY DISORDER, UNSPECIFIED 05/02/2017 LAYTON HERNANEDZ MD Ot G25.81 RESTLESS LEGS SYNDROME 05/02/2017 LAYTON HERNANDEZ MD, Ot G47.30 SLEEP APNEA, UNSPECIFIED 05/02/2017 LAYTON HERNANDEZ MD, Ot J44.9 CHRONIC OBSTRUCTIVE PULMONARY DISEASE, U 05/02/2017 BRUEGGEMANN MD, LAYTON T Ot K21.9 GASTRO-ESOPHAGEAL REFLUX DISEASE WITHOUT 05/02/2017 LAYTON HERNANDEZ MD Ot M19.90 UNSPECIFIED OSTEOARTHRITIS, UNSPECIFIED 05/02/2017 LAYTON HERNANDEZ MD, Ot M54.6 PAIN IN THORACIC SPINE 05/02/2017 LAYTON HERNANDEZ MD, Ot M79.1 MYALGIA 05/02/2017 LAYTON HERNANDEZ MD, Ot R07.81 PLEURODYNIA 05/02/2017 LAYTON HERNANDEZ MD Ot R11.0 NAUSEA 05/02/2017 LAYTON HERNANDEZ MD, Ot R51 HEADACHE 05/02/2017 LAYTON HERNANDEZ MD, Ot Z79.84 [facility] (CURRENT) USE OF ORAL HYPOGLYC 05/02/2017 LAYTON [...] MD Ot M79.1 MYALGIA 05/02/2017 LAYTON HERNANDEZ MD, Ot R07.81 PLEURODYNIA 05/02/2017 LAYTON HERNANDEZ MD Ot R11.0 NAUSEA 05/02/2017 LAYTON HERNANDEZ MD, Ot R51 HEADACHE 05/02/2017 LAYTON HERNANDEZ MD, Ot Z79.84 [employer] (CURRENT) USE OF ORAL HYPOGLYC 05/02/2017 LAYTON [...] ESPITIA APRN Ot Y92.[address] IN [facility] (PRIVATE) 05/07/2017 JANELLE ESPITIA APRN Ot Z79.84 [employer] TE[employer]ER (CURRENT) USE OF ORAL HYPOGLYC 05/07/2017 JANELLE [...] IN 05/09/2017 JANELLE ESPITIA APRN Ot Y92.[address] IN [facility] ([facility]) 05/09/2017 JANELLE ESPITIA APRN Ot Z79.84 [facility] (CURRENT) USE OF ORAL HYPOGLYC 05/09/2017 JANELLE ESPITIA APRN Ot Z87.19 PERSONAL HISTORY OF OTHER DISEASES OF 05/09/2017 JANELLE ESPITIA APRN Ot Z87.440 PERSONAL HISTORY OF URINARY (TRACT) INFE 05/09/2017 JANELLE ESPITIA APRN Ot Z87.891 PERSONAL HISTORY OF NICOTINE DEPENDENCE 05/09/2017 JANELLE ESPITIA APRN Ot Z90.710 ACQUIRED ABSENCE OF BOTH CERVIX AND UTER 05/27/2017 LEONELA, MAJOR E COUNTER STACKER Ot R06.02 SHORTNESS OF BREATH 05/28/2017 MAJOR GIPSON COUNTER STACKER Ot M79.604 PAIN IN RIGHT LEG 05/28/2017 MAJOR GIPSON COUNTER STACKER Ot M79.605 PAIN IN LEFT LEG 05/28/2017 MAJOR GIPSON COUNTER STACKER Ot R06.00 DYSPNEA, UNSPECIFIED 05/28/2017 MAJOR GIPSON COUNTER STACKER Ot R22.43 LOCALIZED SWELLING, MASS AND LUMP, LOWER 06/05/2017 MAJOR GIPSON COUNTER STACKER Ot R06.02 SHORTNESS OF BREATH 06/06/2017 MAJOR GIPSON COUNTER STACKER Ot M79.604 PAIN IN RIGHT LEG 06/06/2017 MAJOR GIPSON APRN Ot M79.605 PAIN IN LEFT LEG 06/06/2017 MAJOR GIPSON COUNTER STACKER Ot R06.00 DYSPNEA, UNSPECIFIED 06/06/2017 MAJOR GIPSON COUNTER STACKER Ot R22.43 LOCALIZED SWELLING, MASS AND LUMP, [...] MALAISE 08/10/2017 JANELLE ESPITIA APRN Ot Z79.84 [facility] (CURRENT) USE OF ORAL HYPOGLYC 08/10/2017 JANELLE ESPITIA APRN Ot Z87.19 PERSONAL HISTORY OF OTHER DISEASES OF TH 08/10/2017 JANELLE ESPITIA COUNTER STACKER Ot Z87.448 PERSONAL HISTORY OF OTHER DISEASES OF UR 08/10/2017 JANELLE ESPITIA COUNTER STACKER Ot Z87.891 PERSONAL HISTORY OF NICOTINE DEPENDENCE 08/10/2017 JANELLE ESPITIA COUNTER STACKER Ot 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 09/13/2017 REBEKA, OLIVA FORENSIC SERGEANT Ot E11.9 TYPE 2 DIABETES MELLITUS WITHOUT COMPLIC 09/13/2017 REBEKA, OLIVA FORENSIC SERGEANT Ot E78.00 PURE HYPERCHOLESTEROLEMIA, UNSPECIFIED 09/13/2017 REBEKA, OLIVA FORENSIC SERGEANT Ot F31.9 BIPOLAR DISORDER, UNSPECIFIED 09/13/2017 REBEKA, OLIVA FORENSIC SERGEANT Ot F41.9 ANXIETY DISORDER, UNSPECIFIED 09/13/2017 REBEKA, OLIVA FORENSIC SERGEANT Ot G47.30 SLEEP APNEA, UNSPECIFIED 09/13/2017 REBEKA, OLIVA FORENSIC SERGEANT Ot J02.9 ACUTE PHARYNGITIS, UNSPECIFIED 09/13/2017 REBEKA, OLIVA FORENSIC SERGEANT Ot J06.9 ACUTE UPPER RESPIRATORY INFECTION, UNSPE 09/13/2017 REBEKA, OLIVA FORENSIC SERGEANT Ot J44.9 CHRONIC OBSTRUCTIVE PULMONARY DISEASE, U 09/13/2017 REBEKA, OLIVA FORENSIC SERGEANT Ot K21.9 GASTRO-ESOPHAGEAL REFLUX DISEASE WITHOUT 09/13/2017 REBEKA, OLIVA FORENSIC SERGEANT Ot Z87.891 PERSONAL HISTORY OF NICOTINE DEPENDENCE 09/13/2017 REBEKA, OLIVA FORENSIC SERGEANT Ot 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 09/15/2017 REBEKA, OLIVA FORENSIC SERGEANT Ot E11.9 TYPE 2 DIABETES MELLITUS WITHOUT COMPLIC 09/15/2017 REBEKA, OLIVA FORENSIC SERGEANT Ot E78.00 PURE HYPERCHOLESTEROLEMIA, UNSPECIFIED 09/15/2017 REBEKA, OLIVA FORENSIC SERGEANT Ot F31.9 BIPOLAR DISORDER, UNSPECIFIED 09/15/2017 REBEKA, OLIVA FORENSIC SERGEANT Ot F41.9 ANXIETY DISORDER, UNSPECIFIED 09/15/2017 REBEKA, OLIVA FORENSIC SERGEANT Ot G47.30 SLEEP APNEA, UNSPECIFIED 09/15/2017 REBEKA, OLIVA FORENSIC SERGEANT Ot J02.9 ACUTE PHARYNGITIS, UNSPECIFIED 09/15/2017 REBEKA, OLIVA FORENSIC SERGEANT Ot J06.9 ACUTE UPPER RESPIRATORY INFECTION, UNSPE 09/15/2017 REBEKA, OLIVA FORENSIC SERGEANT Ot J44.9 CHRONIC OBSTRUCTIVE PULMONARY DISEASE, U 09/15/2017 REBEKA, OLIVA FORENSIC SERGEANT Ot K21.9 GASTRO-ESOPHAGEAL REFLUX DISEASE WITHOUT 09/15/2017 REBEKA OLIVA VASQUESP Ot Z87.891 PERSONAL HISTORY OF NICOTINE DEPENDENCE 09/15/2017 REBEKA OLIVA KIKA Ot 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 11/11/2017 NICKY THOMPSON MD Ot N64.4 MASTODYNIA 11/12/2017 NICKY THOMPSON MD Ot N63.23 UNSPECIFIED LUMP IN THE LEFT BREAST, LOW 11/20/2017 KISHA BALDWIN MD Ot M94.261 CHONDROMALACIA, RIGHT KNEE 11/20/2017 KISHA BALDWIN MD, Ot Z01.818 ENCOUNTER FOR OTHER PREPROCEDURAL EXAMIN 11/20/2017 EDI FAUSTIN DO Ot Z12.31 ENCNTR SCREEN MAMMOGRAM FOR MALIGNANT NE 11/20/2017 KISHA BALDWIN MD Ot M75.112 INCOMPLETE ROTATR-CUFF TEAR/RUPTR OF L S 11/20/2017 EDI FAUSTIN DO Ot J18.9 PNEUMONIA, UNSPECIFIED ORGANISM 11/20/2017 EDI FAUSTIN DO, Ot J40 BRONCHITIS, NOT SPECIFIED ACUTE OR CH 11/20/2017 KISHA BALDWIN MD Ot M75.102 UNSP ROTATR-CUFF TEAR/RUPTR OF LEFT SHOU 11/20/2017 KISHA BALDWIN MD Ot Z01.818 ENCOUNTER FOR OTHER PREPROCEDURAL EXAMIN 11/20/2017 KISHA BALDWIN MD Ot Z11.2 ENCOUNTER FOR SCREENING FOR OTHER BACTER 11/20/2017 KISHA CARRILLO MD Ot R13.19 OTHER DYSPHAGIA 11/20/2017 KISHA CARRILLO MD Ot R49.0 DYSPHONIA 11/20/2017 KISHA CARRILLO MD Ot R13.10 DYSPHAGIA, UNSPECIFIED 11/20/2017 EDI FAUSTIN DO Ot R07.81 PLEURODYNIA 11/20/2017 MAJOR GIPSON APRN Ot J30.9 ALLERGIC RHINITIS, UNSPECIFIED 11/20/2017 MAJOR GIPSON APRN Ot R06.02 SHORTNESS OF BREATH 11/20/2017 ZAHIRA PETERSEN DO, Ot E66.01 MORBID (SEVERE) OBESITY DUE TO EXCESS CA 11/20/2017 ZAHIRA PETERSEN DO, Ot J30.9 ALLERGIC RHINITIS, UNSPECIFIED 11/20/2017 TRINITY DO, ZAHIRA Kramer Ot R06.02 SHORTNESS OF BREATH 11/20/2017 TRINITY LOU, ZAHIRA Kramer Ot E66.01 MORBID (SEVERE) OBESITY DUE TO EXCESS CA 11/20/2017 TRINITY DO, ZAHIRA Kramer Ot J30.9 ALLERGIC RHINITIS, UNSPECIFIED 11/20/2017 TRINITY DO, ZAHIRA Kramer Ot R06.02 SHORTNESS OF BREATH 11/20/2017 TRINITY DO, ZAHIRA Kramer Ot R91.1 SOLITARY PULMONARY NODULE 11/20/2017 GELLENDER DO, EDI A Ot N64.4 MASTODYNIA 11/20/2017 TRINITY DO, ZAHIRA Kramer Ot E66.01 MORBID (SEVERE) OBESITY DUE TO EXCESS CA 11/20/2017 TRINITY DO, ZAHIRA Kramer Ot J30.9 ALLERGIC RHINITIS, UNSPECIFIED 11/20/2017 TRINITY LOU, ZAHIRA Kramer Ot R06.02 SHORTNESS OF BREATH 11/20/2017 GELLENDER DO, EDI A Ot R10.12 LEFT UPPER QUADRANT PAIN 11/20/2017 GELLENDER DO, EDI A Ot R10.11 RIGHT UPPER QUADRANT PAIN 11/20/2017 DONNA CULLEN, NICKY Lawrence Ot E11.65 TYPE 2 DIABETES MELLITUS WITH HYPERGLYCE 11/20/2017 DONNA CULLEN, NICKY Lawrence Ot R10.11 RIGHT UPPER QUADRANT PAIN 11/20/2017 KYLAH CULLEN, PATRIC Saucedo Ot R10.31 RIGHT LOWER QUADRANT PAIN 11/20/2017 CECELIA CULLEN, Nia WILSON Ot E11.9 TYPE 2 DIABETES MELLITUS WITHOUT COMPLIC 11/20/2017 CECELIA CULLEN, Nia WILSON Ot E78.5 HYPERLIPIDEMIA, UNSPECIFIED 11/20/2017 Nia RAI MD Ot J44.9 CHRONIC OBSTRUCTIVE PULMONARY DISEASE, U 11/20/2017 Nia RAI MD Ot R07.9 CHEST PAIN, UNSPECIFIED 11/20/2017 Nia RAI MD Ot E11.9 TYPE 2 DIABETES MELLITUS WITHOUT COMPLIC 11/20/2017 Nia RAI MD Ot E78.5 HYPERLIPIDEMIA, UNSPECIFIED 11/20/2017 CCEELIA CULLEN, Nia WILSON Ot J44.9 CHRONIC OBSTRUCTIVE [...] ENCNTR SCREEN MAMMOGRAM FOR MALIGNANT NE 11/20/2017 NICKY THOMPSON MD Ot N63.23 UNSPECIFIED LUMP IN THE LEFT BREAST, LOW 11/21/2017 KISHA BALDWIN MD, Ot M94.261 CHONDROMALACIA, RIGHT KNEE 11/21/2017 KISHA BALDWIN MD, Ot Z01.818 ENCOUNTER FOR OTHER PREPROCEDURAL EXAMIN 11/26/2017 KIHSA BALDWIN MD, Ot E11.40 TYPE 2 DIABETES MELLITUS WITH DIABETIC N 11/26/2017 KISHA BALDWIN MD Ot E66.01 MORBID (SEVERE) OBESITY DUE TO EXCESS CA 11/26/2017 KISHA BALDWIN MD Ot E78.5 HYPERLIPIDEMIA, UNSPECIFIED 11/26/2017 KISHA BALDWIN MD, Ot F31.9 BIPOLAR DISORDER, UNSPECIFIED 11/26/2017 KISHA BALDWIN MD Ot G35 MULTIPLE SCLEROSIS 11/26/2017 KISHA BALDWIN MD, Ot G47.33 OBSTRUCTIVE SLEEP APNEA (ADULT) (PEDIATR 11/26/2017 KISHA BALDWIN MD Ot I10 ESSENTIAL (PRIMARY) HYPERTENSION 11/26/2017 KISHA BALDWIN MD Ot I20.9 ANGINA PECTORIS, UNSPECIFIED 11/26/2017 KISHA BALDWIN MD, Ot J44.9 CHRONIC OBSTRUCTIVE PULMONARY DISEASE, U 11/26/2017 KISHA BALDWIN MD Ot K21.9 GASTRO-ESOPHAGEAL REFLUX DISEASE WITHOUT 11/26/2017 KISHA BALDWIN MD Ot M22.41 CHONDROMALACIA PATELLAE, RIGHT KNEE 11/26/2017 KISHA BALDWIN MD Ot M32.9 SYSTEMIC LUPUS ERYTHEMATOSUS, UNSPECIFIE 11/26/2017 KISHA BALDWIN MD Ot M79.7 FIBROMYALGIA 11/26/2017 KISHA BALDWIN MD, Ot Z11.2 ENCOUNTER FOR SCREENING FOR OTHER BACTER 11/26/2017 KISHA BALDWIN MD, Ot Z68.41 BODY MASS INDEX (BMI) 40.0-44.9, ADULT 11/26/2017 KISHA BALDWIN MD, Ot Z79.84 [facility] (CURRENT) USE OF ORAL HYPOGLYC 11/26/2017 KISHA BALDWIN MD, Ot Z79.899 OTHER [facility] (CURRENT) DRUG THERAPY 11/26/2017 KISHA BALDWIN MD, Ot Z87.891 PERSONAL HISTORY OF NICOTINE DEPENDENCE 11/27/2017 KISHA BALDWIN MD, Ot E11.40 TYPE 2 DIABETES MELLITUS WITH DIABETIC N 11/27/2017 KISHA BALDWIN MD, Ot E66.01 MORBID (SEVERE) OBESITY DUE TO EXCESS CA 11/27/2017 KISHA BALDWIN MD, Ot E78.5 HYPERLIPIDEMIA, UNSPECIFIED 11/27/2017 KISHA BALDWIN MD, Ot F31.9 BIPOLAR DISORDER, UNSPECIFIED 11/27/2017 KISHA BALDWIN MD Ot G35 MULTIPLE SCLEROSIS 11/27/2017 KISHA BALDWIN MD, Ot G47.33 OBSTRUCTIVE SLEEP APNEA (ADULT) (PEDIATR 11/27/2017 KISHA BALDWIN MD Ot I10 ESSENTIAL (PRIMARY) HYPERTENSION 11/27/2017 KISHA BALDWIN MD, Ot I20.9 ANGINA PECTORIS, UNSPECIFIED 11/27/2017 KISHA BALDWIN MD, Ot J44.9 CHRONIC OBSTRUCTIVE PULMONARY DISEASE, U 11/27/2017 KISHA BALDWIN MD Ot K21.9 GASTRO-ESOPHAGEAL REFLUX DISEASE WITHOUT 11/27/2017 KISHA BALDWIN MD Ot M22.41 CHONDROMALACIA PATELLAE, RIGHT KNEE 11/27/2017 KISHA BALDWIN MD, Ot M32.9 SYSTEMIC LUPUS ERYTHEMATOSUS, UNSPECIFIE 11/27/2017 KISHA BALDWIN MD, Ot M79.7 FIBROMYALGIA 11/27/2017 KISHA BALDWIN MD Ot Z11.2 ENCOUNTER FOR SCREENING FOR OTHER BACTER 11/27/2017 KISHA BALDWIN MD, Ot Z68.41 BODY MASS INDEX (BMI) 40.0-44.9, ADULT 11/27/2017 KISHA BALDWIN MD, Ot Z79.84 [facility] (CURRENT) USE OF ORAL HYPOGLYC 11/27/2017 KISHA BALDWIN MD, Ot 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 11/27/2017 KISHA BALDWIN MD, Ot Z87.891 PERSONAL HISTORY OF NICOTINE DEPENDENCE 12/02/2017 DONNA CULLEN, NICKY Lawrence Ot N63.23 UNSPECIFIED LUMP IN THE LEFT BREAST, LOW 12/05/2017 JANELLE ESPITIA APRN Ot E11.9 TYPE 2 DIABETES MELLITUS WITHOUT COMPLIC 12/05/2017 JANELLE ESPITIA APRN Ot E78.00 PURE HYPERCHOLESTEROLEMIA, UNSPECIFIED 12/05/2017 JANELLE ESPITIA APRN Ot F32.9 MAJOR DEPRESSIVE DISORDER, SINGLE EPISOD 12/05/2017 JANELLE ESPITIA APRN Ot F41.9 ANXIETY DISORDER, UNSPECIFIED 12/05/2017 JANELLE ESPITIA APRN Ot G25.81 RESTLESS LEGS SYNDROME 12/05/2017 JANELLE ESPITIA APRN Ot G47.30 SLEEP APNEA, UNSPECIFIED 12/05/2017 JANELLE ESPITIA APRN Ot J44.9 CHRONIC OBSTRUCTIVE PULMONARY DISEASE, U 12/05/2017 JANELLE ESPITIA APRN Ot K21.9 GASTRO-ESOPHAGEAL REFLUX DISEASE WITHOUT 12/05/2017 JANELLE ESPITIA APRN Ot N39.0 URINARY TRACT INFECTION, SITE NOT SPECIF 12/05/2017 JANELLE ESPITIA APRN Ot R05 COUGH 12/05/2017 JANELLE ESPITIA APRN Ot R07.81 PLEURODYNIA 12/05/2017 JANELLE ESPITIA APRN Ot Z79.84 [employer] (CURRENT) USE OF ORAL HYPOGLYC 12/05/2017 JANELLE ESPITIA APRN Ot Z87.19 PERSONAL HISTORY OF OTHER DISEASES OF TH 12/05/2017 JANELLE ESPITIA APRN Ot Z87.891 PERSONAL HISTORY OF NICOTINE DEPENDENCE 12/05/2017 JANELLE ESPITIA APRN Ot Z88.0 ALLERGY STATUS TO PENICILLIN 12/05/2017 JANELLE ESPITIA APRN Ot Z88.8 ALLERGY STATUS TO OTH DRUG/MEDS/BIOL SUB 12/05/2017 JANELLE ESPITIA APRN Ot Z90.710 ACQUIRED ABSENCE OF BOTH CERVIX AND UTER 12/05/2017 JANELLE ESPITIA APRN Ot Z91.041 RADIOGRAPHIC DYE ALLERGY STATUS 12/06/2017 TRINITY ZAHIRA Kramer Ot E66.01 MORBID (SEVERE) OBESITY DUE TO EXCESS CA 12/06/2017 TRINITY LOU ZAHIRA M Ot J30.9 ALLERGIC RHINITIS, UNSPECIFIED 12/06/2017 TRINITY ZAHIRA LOU Ot R06.02 SHORTNESS OF BREATH 12/08/2017 JANELLE ESPITIA APRN Ot E11.9 TYPE 2 DIABETES MELLITUS WITHOUT COMPLIC 12/08/2017 JANELLE ESPITIA APRN Ot E78.00 PURE HYPERCHOLESTEROLEMIA, UNSPECIFIED 12/08/2017 JANELLE ESPITIA APRN Ot F32.9 MAJOR DEPRESSIVE DISORDER, SINGLE EPISOD 12/08/2017 JANELLE ESPITIA APRN Ot F41.9 ANXIETY DISORDER, UNSPECIFIED 12/08/2017 JANELLE ESPITIA APRN Ot G25.81 RESTLESS LEGS SYNDROME 12/08/2017 JANELLE ESPITIA APRN Ot G47.30 SLEEP APNEA, UNSPECIFIED 12/08/2017 JANELLE ESPITIA APRN Ot J44.9 CHRONIC OBSTRUCTIVE PULMONARY DISEASE, U 12/08/2017 JANELLE ESPITIA APRN Ot K21.9 GASTRO-ESOPHAGEAL REFLUX DISEASE WITHOUT 12/08/2017 JANELLE ESPITIA APRN Ot N39.0 URINARY TRACT INFECTION, SITE NOT SPECIF 12/08/2017 JANELLE ESPITIA APRN Ot R05 COUGH 12/08/2017 JANELLE ESPITIA APRN Ot R07.81 PLEURODYNIA 12/08/2017 JANELLE ESPITIA APRN Ot Z79.84 [facility] (CURRENT) USE OF ORAL HYPOGLYC 12/08/2017 JANELLE ESPITIA APRN Ot Z87.19 PERSONAL HISTORY OF OTHER DISEASES OF TH 12/08/2017 JANELLE ESPITIA APRN Ot Z87.891 PERSONAL HISTORY OF NICOTINE DEPENDENCE 12/08/2017 JANELLE ESPITIA APRN Ot Z88.0 ALLERGY STATUS TO PENICILLIN 12/08/2017 JANELLE ESPITIA APRN Ot Z88.8 ALLERGY STATUS TO OTH DRUG/MEDS/BIOL SUB 12/08/2017 JANELLE ESPITIA APRN Ot Z90.710 ACQUIRED ABSENCE OF BOTH CERVIX AND UTER 12/08/2017 JANELLE ESPITIA APRN Ot Z91.041 RADIOGRAPHIC DYE ALLERGY STATUS 12/11/2017 JANELLE ESPITIA APRN Ot E11.9 TYPE 2 DIABETES MELLITUS WITHOUT COMPLIC 12/11/2017 JANELLE ESPITIA APRN Ot E78.00 PURE HYPERCHOLESTEROLEMIA, UNSPECIFIED 12/11/2017 JANELLE ESPITIA APRN Ot F32.9 MAJOR DEPRESSIVE DISORDER, SINGLE EPISOD 12/11/2017 JANELLE ESPITIA APRN Ot F41.9 ANXIETY DISORDER, UNSPECIFIED 12/11/2017 JANELLE ESPITIA APRN Ot G25.81 RESTLESS LEGS SYNDROME 12/11/2017 JANELLE ESPITIA APRN Ot G47.30 SLEEP APNEA, UNSPECIFIED 12/11/2017 JANELLE ESPITIA APRN Ot J44.9 CHRONIC OBSTRUCTIVE PULMONARY DISEASE, U 12/11/2017 JANELLE ESPITIA APRN Ot K21.9 GASTRO-ESOPHAGEAL REFLUX DISEASE WITHOUT 12/11/2017 JANELLE ESPITIA APRN Ot N39.0 URINARY TRACT INFECTION, SITE NOT SPECIF 12/11/2017 JANELLE ESPITIA APRN Ot R05 COUGH 12/11/2017 JANELLE ESPITIA APRN Ot R07.81 PLEURODYNIA 12/11/2017 JANELLE ESPITIA APRN Ot Z79.84 [employer] (CURRENT) USE OF ORAL HYPOGLYC 12/11/2017 JANELLE ESPITIA APRN Ot Z87.19 PERSONAL HISTORY OF OTHER DISEASES OF TH 12/11/2017 JANELLE ESPITIA APRN Ot Z87.891 PERSONAL HISTORY OF NICOTINE DEPENDENCE 12/11/2017 JANELLE ESPITIA APRN Ot Z88.0 ALLERGY STATUS TO PENICILLIN 12/11/2017 JANELLE ESPITIA APRN Ot Z88.8 ALLERGY STATUS TO OTH DRUG/MEDS/BIOL SUB 12/11/2017 JANELLE ESPITIA APRN Ot Z90.710 ACQUIRED ABSENCE OF BOTH CERVIX AND UTER 12/11/2017 JANELLE ESPITIA APRN Ot Z91.041 RADIOGRAPHIC DYE ALLERGY STATUS 12/11/2017 DONNA CULLEN, NICKY Lawrence Ot N63.23 UNSPECIFIED LUMP IN THE LEFT BREAST, LOW 04/01/2018 JOHANNY DO, MURALI K Ot E11.9 TYPE 2 DIABETES MELLITUS WITHOUT COMPLIC 04/01/2018 JOHANNY DO, MURALI K Ot E66.9 OBESITY, UNSPECIFIED 04/01/2018 JOHANNY DO, MURALI K Ot E78.00 PURE HYPERCHOLESTEROLEMIA, UNSPECIFIED 04/01/2018 JOHANNY DO, MURALI Jose Antonio Ot F31.9 BIPOLAR DISORDER, UNSPECIFIED 04/01/2018 JOHANNY DO MURALI K Ot F41.9 ANXIETY DISORDER, UNSPECIFIED 04/01/2018 VIRDEN DO MURALI K Ot G25.81 RESTLESS LEGS SYNDROME 04/01/2018 [facility] MURALI K Ot G47.30 SLEEP APNEA, UNSPECIFIED 04/01/2018 VIRDEN DO MURALI Jose Antonio Ot J44.9 CHRONIC OBSTRUCTIVE PULMONARY DISEASE, U 04/01/2018 JOHANNY MURALI Jose Antonio Ot K21.9 GASTRO-ESOPHAGEAL REFLUX DISEASE WITHOUT 04/01/2018 JOHANNY MURALI K Ot N39.0 URINARY TRACT INFECTION, SITE NOT SPECIF 04/01/2018 MURALI ORLANDO DO Ot R10.31 RIGHT LOWER QUADRANT PAIN 04/01/2018 JOHANNY EDU LOUA K Ot Z79.51 [employer] (CURRENT) USE OF INHALED STERO 04/01/2018 JOHANNY EDUA K Ot Z87.891 PERSONAL HISTORY OF NICOTINE DEPENDENCE 04/01/2018 JOHANNY EDU LOUA Jose Antonio Ot Z88.0 ALLERGY STATUS TO PENICILLIN 04/01[facility] ALLERGY STATUS TO ANALGESIC AGENT STATUS 04/01/2018 JOHANNY EDUA K Ot Z90.710 ACQUIRED ABSENCE OF BOTH CERVIX AND UTER 04/01/2018 JOHANNY MURALI Jose Antonio Ot Z91.041 RADIOGRAPHIC DYE ALLERGY STATUS 04/02/2018 JOHANNY DO MURALI K Ot E11.9 TYPE 2 DIABETES MELLITUS WITHOUT COMPLIC 04/02/2018 JOHANNY EDU LOUA K Ot E66.9 OBESITY, UNSPECIFIED 04/02/2018 JOHANNY DO MURALI K Ot E78.00 PURE HYPERCHOLESTEROLEMIA, UNSPECIFIED 04/02/2018 JOHANNY DO MURALI K Ot F31.9 BIPOLAR DISORDER, UNSPECIFIED 04/02/2018 JOHANNY DO MURALI K Ot F41.9 ANXIETY DISORDER, UNSPECIFIED 04/02/2018 JOHANNY DO MURALI K Ot G25.81 RESTLESS LEGS SYNDROME 04/02/2018 JOHANNY DO MURALI K Ot G47.30 SLEEP APNEA, UNSPECIFIED 04/02/2018 JOHANNY DO MURALI K Ot J44.9 CHRONIC OBSTRUCTIVE PULMONARY DISEASE, U 04/02/2018 JOHANNY DO, MURALI K Ot K21.9 GASTRO-ESOPHAGEAL REFLUX DISEASE WITHOUT 04/02/2018 MURALI ORLANDO DO Ot N39.0 URINARY TRACT INFECTION, SITE NOT SPECIF 04/02/2018 JOHANNY MURALI Jose Antonio Ot R10.31 RIGHT LOWER QUADRANT PAIN 04/02/2018 JOHANNY LOU MURALI Brady Ot Z79.51 [employer] (CURRENT) USE OF INHALED STERO 04/02/2018 JOHANNY MURALI Jose Antonio Ot Z87.891 PERSONAL HISTORY OF NICOTINE DEPENDENCE 04/02/2018 JOHANNY MURALI Jose Antonio Ot Z88.0 ALLERGY STATUS TO PENICILLIN 04/02/2018 JOHANNY MURALI Jose Antonio Ot Z88.6 ALLERGY STATUS TO ANALGESIC AGENT STATUS 04/02/2018 JOHANNY MURALI Jose Antonio Ot Z90.710 ACQUIRED ABSENCE OF BOTH CERVIX AND UTER 04/02/2018 JOHANNY MURALI Jose Antonio Ot Z91.041 RADIOGRAPHIC DYE ALLERGY STATUS 04/13/2018 ZAHIRA PETERSEN DO Ot E66.01 MORBID (SEVERE) OBESITY DUE TO EXCESS CA 04/13/2018 ZAHIRA PETERSEN DO Ot J30.9 ALLERGIC RHINITIS, UNSPECIFIED 04/13/2018 ZAHIRA PETERSEN DO Ot R06.02 SHORTNESS OF BREATH 04/13/2018 SAIRA CULLEN, VICTORIA Kramer Ot Z01.818 ENCOUNTER FOR OTHER PREPROCEDURAL EXAMIN 04/14/2018 SAIRA CULLEN, VICTORIA Kramer Ot Z01.818 ENCOUNTER FOR OTHER PREPROCEDURAL EXAMIN 04/16/2018 EDI FAUSTIN DO Ot Z12.31 ENCNTR SCREEN MAMMOGRAM FOR MALIGNANT NE 04/16/2018 NICOLASA CULLEN, KISHA Justice Ot M75.112 INCOMPLETE ROTATR-CUFF TEAR/RUPTR OF L S 04/16/2018 EDI FAUSTIN DO Ot J18.9 PNEUMONIA, UNSPECIFIED ORGANISM 04/16/2018 EDI FAUSTIN DO Ot J40 BRONCHITIS, NOT SPECIFIED ACUTE OR CH 04/16/2018 KISHA BALDWIN MD Ot M75.102 UNSP ROTATR-CUFF TEAR/RUPTR OF LEFT SHOU 04/16/2018 KISHA BALDWIN MD Ot Z01.818 ENCOUNTER FOR OTHER PREPROCEDURAL EXAMIN 04/16/2018 KISHA BALDWIN MD Ot Z11.2 ENCOUNTER FOR SCREENING FOR OTHER BACTER 04/16/2018 LORENA CULLEN, KISHA Justice Ot R13.19 OTHER DYSPHAGIA 04/16/2018 LORENA CULLEN, KISHA Justice Ot R49.0 DYSPHONIA 04/16/2018 LORENA CULLEN, KISHA Justice Ot R13.10 DYSPHAGIA, UNSPECIFIED 04/16/2018 GELLENPATEL, EDI Christianson Ot R07.81 PLEURODYNIA 04/16/2018 MAJOR GIPSON APRN Ot J30.9 ALLERGIC RHINITIS, UNSPECIFIED 04/16/2018 MAJOR GIPSON APRN Ot R06.02 SHORTNESS OF BREATH 04/16/2018 ZAHIRA PETERSEN DO Ot E66.01 MORBID (SEVERE) OBESITY DUE TO EXCESS CA 04/16/2018 ZAHIRA PETERSEN DO Ot J30.9 ALLERGIC RHINITIS, UNSPECIFIED 04/16/2018 ZAHIRA PETERSEN DO Ot R06.02 SHORTNESS OF BREATH 04/16/2018 ZAHIRA PETERSEN DO M Ot E66.01 MORBID (SEVERE) OBESITY DUE TO EXCESS CA 04/16/2018 ZAHIRA PETERSEN DO Ot J30.9 ALLERGIC RHINITIS, UNSPECIFIED 04/16/2018 TRINITY DOZAHIRA M Ot R06.02 SHORTNESS OF BREATH 04/16/2018 ZAHIRA PETERSEN DO Ot R91.1 SOLITARY PULMONARY NODULE 04/16/2018 EDI FAUSTIN DO Ot N64.4 MASTODYNIA 04/16/2018 ZAHIRA PETERSEN DO M Ot E66.01 MORBID (SEVERE) OBESITY DUE TO EXCESS CA 04/16/2018 ZAHIRA PETERSEN DO M Ot J30.9 ALLERGIC RHINITIS, UNSPECIFIED 04/16/2018 ZAHIRA PETERSEN DO Ot R06.02 SHORTNESS OF BREATH 04/16/2018 RAMIN DOEDI A Ot R10.12 LEFT UPPER QUADRANT PAIN 04/16/2018 GELLENDER DO, EDI A Ot R10.11 RIGHT UPPER QUADRANT PAIN 04/16/2018 DONNA CULLEN, NICKY Lawrence Ot E11.65 TYPE 2 DIABETES MELLITUS WITH HYPERGLYCE 04/16/2018 DONNA CULLEN, NICKY Lawrence Ot R10.11 RIGHT UPPER QUADRANT PAIN 04/16/2018 KYLAH CULLEN, PATRIC Saucedo Ot R10.31 RIGHT LOWER QUADRANT PAIN 04/16/2018 CECELIA CULLEN, Nia WILSON Ot E11.9 TYPE 2 DIABETES MELLITUS WITHOUT COMPLIC 04/16/2018 CECELIA CULLEN, Nia WILSON Ot E78.5 HYPERLIPIDEMIA, UNSPECIFIED 04/16/2018 CECELIA CULLEN, Nia WILSON Ot J44.9 CHRONIC OBSTRUCTIVE PULMONARY DISEASE, U 04/16/2018 CECELIA CULLEN, Nia WILSON Ot R07.9 CHEST PAIN, UNSPECIFIED 04/16/2018 CECELIA CULLEN, Nia WILSON Ot E11.9 TYPE 2 DIABETES MELLITUS WITHOUT COMPLIC 04/16/2018 CECELIA CULLEN, Nia WILSON Ot E78.5 HYPERLIPIDEMIA, UNSPECIFIED 04/16/2018 CECELIA CULLEN, Nia WILSON Ot J44.9 CHRONIC OBSTRUCTIVE PULMONARY DISEASE, U 04/16/2018 CECELIA CULLEN, Nia WILSON Ot R07.9 CHEST PAIN, UNSPECIFIED 04/16/2018 MAJOR GIPSON APRN Ot R06.02 SHORTNESS OF BREATH 04/16/2018 MAJOR GIPSON APRN Ot M79.604 PAIN IN RIGHT LEG 04/16/2018 MAJOR GIPSON APRN Ot M79.605 PAIN IN LEFT LEG 04/16/2018 MAJOR GIPSON APRN Ot R06.00 DYSPNEA, UNSPECIFIED 04/16/2018 MAJOR GIPSON APRN Ot R22.43 LOCALIZED SWELLING, MASS AND LUMP, LOWER 04/16/2018 NICKY THOMPSON MD, Ot Z12.31 ENCNTR SCREEN MAMMOGRAM FOR MALIGNANT NE 04/16/2018 NICKY THOMPSON MD Ot N63.23 UNSPECIFIED LUMP IN THE LEFT BREAST, LOW 04/20/2018 EID FAUSTIN DO, Ot Z12.31 ENCNTR SCREEN MAMMOGRAM FOR MALIGNANT NE 04/20/2018 KISHA BALDWIN MD Ot M75.112 INCOMPLETE ROTATR-CUFF TEAR/RUPTR OF L S 04/20/2018 EDI FAUSTIN DO Ot J18.9 PNEUMONIA, UNSPECIFIED ORGANISM 04/20/2018 EDI FAUSTIN DO, Ot J40 BRONCHITIS, NOT SPECIFIED ACUTE OR CH 04/20/2018 KISHA BALDWIN MD Ot M75.102 UNSP ROTATR-CUFF TEAR/RUPTR OF LEFT SHOU 04/20/2018 KISHA BALDWIN MD, Ot Z01.818 ENCOUNTER FOR OTHER PREPROCEDURAL EXAMIN 04/20/2018 NICOLASA CULLEN, KISHA Justice Ot Z11.2 ENCOUNTER FOR SCREENING FOR OTHER BACTER 04/20/2018 LORENA CULLEN, KISHA Justice Ot R13.19 OTHER DYSPHAGIA 04/20/2018 LORENA CULLEN, KISHA Justice Ot R49.0 DYSPHONIA 04/20/2018 KISHA CARRILLO MD Ot R13.10 DYSPHAGIA, UNSPECIFIED 04/20/2018 GELEDI GARZA DO A Ot R07.81 PLEURODYNIA 04/20/2018 MAJOR GIPSON APRN Ot J30.9 ALLERGIC RHINITIS, UNSPECIFIED 04/20/2018 MAJOR GIPSON APRN Ot R06.02 SHORTNESS OF BREATH 04/20/2018 ZAHIRA PETERSEN DO Ot E66.01 MORBID (SEVERE) OBESITY DUE TO EXCESS CA 04/20/2018 ZAHIRA PETERSEN DO Ot J30.9 ALLERGIC RHINITIS, UNSPECIFIED 04/20/2018 ZAHIRA PETERSEN DO Ot R06.02 SHORTNESS OF BREATH 04/20/2018 ZAHIRA PETERSEN DO Ot E66.01 MORBID (SEVERE) OBESITY DUE TO EXCESS CA 04/20/2018 ZAHIRA PETERSEN DO Ot J30.9 ALLERGIC RHINITIS, UNSPECIFIED 04/20/2018 ZAHIRA PETERSEN DO Ot R06.02 SHORTNESS OF BREATH 04/20/2018 ZAHIRA PETERSEN DO Ot R91.1 SOLITARY PULMONARY NODULE 04/20/2018 EDI FAUSTIN DO Ot N64.4 MASTODYNIA 04/20/2018 ZAHIRA PETERSEN DO Ot E66.01 MORBID (SEVERE) OBESITY DUE TO EXCESS CA 04/20/2018 ZAHIRA PETERSEN DO Ot J30.9 ALLERGIC RHINITIS, UNSPECIFIED 04/20/2018 ZAHIRA PETERSEN DO Ot R06.02 SHORTNESS OF BREATH 04/20/2018 GELGREG DOEDI A Ot R10.12 LEFT UPPER QUADRANT PAIN 04/20/2018 ZURILENDER , EDI A Ot R10.11 RIGHT UPPER QUADRANT PAIN 04/20/2018 DONNA CULLEN, NICKY Lawrence Ot E11.65 TYPE 2 DIABETES MELLITUS WITH HYPERGLYCE 04/20/2018 DONNA CULLEN, NICKY Lawrence Ot R10.11 RIGHT UPPER QUADRANT PAIN 04/20/2018 KYLAH CULLEN, PATRIC Saucedo Ot R10.31 RIGHT LOWER QUADRANT PAIN 04/20/2018 CECELIA CULLEN, M KATIE Ot E11.9 TYPE 2 DIABETES MELLITUS WITHOUT COMPLIC 04/20/2018 CECELIA CULLEN, M KATIE Ot E78.5 HYPERLIPIDEMIA, UNSPECIFIED 04/20/2018 CECELIA CULLEN, M KATIE Ot J44.9 CHRONIC OBSTRUCTIVE PULMONARY DISEASE, U 04/20/2018 CECELIA CULLEN, M KATIE Ot R07.9 CHEST PAIN, UNSPECIFIED 04/20/2018 CECELIA CULLEN, M KATIE Ot E11.9 TYPE 2 DIABETES MELLITUS WITHOUT COMPLIC 04/20/2018 CECELIA CULLEN, Nia WILSON Ot E78.5 HYPERLIPIDEMIA, UNSPECIFIED 04/20/2018 CECELIA CULLEN, M KATIE Ot J44.9 CHRONIC OBSTRUCTIVE PULMONARY DISEASE, U 04/20/2018 CECELIA CULLEN, Nia WILSON Ot R07.9 CHEST PAIN, UNSPECIFIED 04/20/2018 MAJOR GIPSON APRN Ot R06.02 SHORTNESS OF BREATH 04/20/2018 MAJOR GIPSON COUNTER STACKER Ot M79.604 PAIN IN RIGHT LEG 04/20/2018 MAJOR GIPSON COUNTER STACKER Ot M79.605 PAIN IN LEFT LEG 04/20/2018 MAJOR GIPSON COUNTER STACKER Ot R06.00 DYSPNEA, UNSPECIFIED 04/20/2018 MAJOR GIPSON COUNTER STACKER Ot R22.43 LOCALIZED SWELLING, MASS AND LUMP, LOWER 04/20/2018 DONNA CULLEN, NICKY Lawrence Ot Z12.31 ENCNTR SCREEN MAMMOGRAM FOR MALIGNANT NE 04/20/2018 DONNA CULLEN, NICKY Lawrence Ot N63.23 UNSPECIFIED LUMP IN THE LEFT BREAST, LOW 04/21/2018 SAIRA CULLEN, VICTORIA Kramer Ot E11.9 TYPE 2 DIABETES MELLITUS WITHOUT COMPLIC 04/21/2018 SAIRA CULLEN, VICTORIA Kramer Ot E78.00 PURE HYPERCHOLESTEROLEMIA, UNSPECIFIED 04/21/2018 SAIRA CULLEN, VICTORIA Kramer Ot F31.9 BIPOLAR DISORDER, UNSPECIFIED 04/21/2018 SAIRA CULLEN, VICTORIA Kramer Ot F41.9 ANXIETY DISORDER, UNSPECIFIED 04/21/2018 SAIRA CULLEN, VICTORIA Kramer Ot G25.81 RESTLESS LEGS SYNDROME 04/21/2018 SAIRA CULLEN, VICTORIA Kramer Ot K21.9 GASTRO-ESOPHAGEAL REFLUX DISEASE WITHOUT 04/21/2018 VICTORIA CHÁVEZ MD Ot K57.30 DVRTCLOS OF LG INT W/O PERFORATION OR AB 04/21/2018 VICTORIA CHÁVEZ MD Ot K59.09 OTHER CONSTIPATION 04/21/2018 VICTORIA CHÁVEZ MD Ot M79.1 MYALGIA 04/21/2018 VICTORIA CHÁVEZ MD Ot R93.3 ABNORMAL FINDINGS ON DX IMAGING OF PRT D 04/21/2018 VICTORIA CHÁVEZ MD Ot Z79.82 [employer] (CURRENT) USE OF ASPIRIN 04/21/2018 VICTORIA CHÁVEZ MD Ot Z79.84 [facility] (CURRENT) USE OF ORAL HYPOGLYC 04/21/2018 VICTORIA CHÁVEZ MD Ot Z79.899 OTHER [facility] (CURRENT) DRUG THERAPY 04/21/2018 VICTORIA CHÁVEZ MD Ot Z87.891 PERSONAL HISTORY OF NICOTINE DEPENDENCE 04/26/2018 VICTORIA CHÁVEZ MD Ot E11.9 TYPE 2 DIABETES MELLITUS WITHOUT COMPLIC 04/26/2018 VICTORIA CHÁVEZ MD Ot E78.00 PURE HYPERCHOLESTEROLEMIA, UNSPECIFIED 04/26/2018 VICTORIA CHÁVEZ MD Ot F31.9 BIPOLAR DISORDER, UNSPECIFIED 04/26/2018 VICTORIA CHÁVEZ MD Ot F41.9 ANXIETY DISORDER, UNSPECIFIED 04/26/2018 VICTORIA CHÁVEZ MD Ot G25.81 RESTLESS LEGS SYNDROME 04/26/2018 VICTORIA CHÁVEZ MD Ot K21.9 GASTRO-ESOPHAGEAL REFLUX DISEASE WITHOUT 04/26/2018 VICTORIA CHÁVEZ MD Ot K57.30 DVRTCLOS OF LG INT W/O PERFORATION OR AB 04/26/2018 VICTORIA CHÁVEZ MD Ot K59.09 OTHER CONSTIPATION 04/26/2018 VICTORIA CHÁVEZ MD Ot M79.1 MYALGIA 04/26/2018 VICTORIA CHÁVEZ MD Ot R93.3 ABNORMAL FINDINGS ON DX IMAGING OF PRT D 04/26/2018 VICTORIA CHÁVEZ MD Ot Z79.82 [employer]ER (CURRENT) USE OF ASPIRIN 04/26/2018 VICTORIA CHÁVEZ MD Ot Z79.84 [employer] TE[employer]ER (CURRENT) USE OF ORAL HYPOGLYC 04/26/2018 VICTORIA CHÁVEZ MD Ot 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 04/26/2018 SAIRA CULLEN, VICTORIA Kramer Ot Z87.891 PERSONAL HISTORY OF NICOTINE DEPENDENCE Procedures There is no data. Results Test [...] culture - 06/09/16 16:24 Bacterial urine culture [id number] NRG COLONY COUNT <10,000 NRG FTX;REPORTABLE SENSITIVITY [...] INFLUENZA A AND B ANTIGENS BY IA [facility] Comprehensive metabolic panel - 04/30/17 15:00 Serum [...] or plasma urea nitrogen/creatinine mass ratio 12 [facility] Serum or plasma creatinine measurement with calculation of estimated glomerular filtration rate > [facility] Serum or plasma glucose measurement (mass/volume) 152 [...] - 09/13/17 15:39 Bacterial throat culture NBS NR Methicillin resistant Staphylococcus aureus (MRSA) screening culture - 11:24 MRSA SCREEN RESULT MRSA ISOLATED NR Capillary blood glucose measurement by glucometer (mass/volume) - 11/26/17 07: 50 Capillary blood glucose measurement by glucometer (mass/volume) 124 mg/dL 70-110 Complete blood count (CBC) with automated white blood cell (WBC) differential - 12/05/17 13:37 Blood leukocytes automated count (number/volume) 9.9 10*3/uL 4.3-11.0 Blood erythrocytes automated count (number/volume) 4.18 10*6/uL 4.35-5.85 Venous blood hemoglobin measurement (mass/volume) 11.7 g/dL 11.5-16.0 Blood hematocrit (volume fraction) 35 % 35-52 Automated erythrocyte mean corpuscular volume 83 [foz_us] 80-99 Automated erythrocyte mean corpuscular hemoglobin (mass per erythrocyte) 28 pg 25-34 Automated erythrocyte mean corpuscular hemoglobin concentration measurement ( mass/volume) 34 g/dL 32-36 Automated erythrocyte distribution width ratio 14.2 % 10.0-14.5 Automated blood platelet count (count/volume) 236 10*3/uL 130-400 Automated blood platelet mean volume measurement 10.8 [foz_us] 7.4-10.4 Automated blood neutrophils/100 leukocytes 62 % 42-75 Automated blood lymphocytes/100 leukocytes 29 % 12-44 Blood monocytes/100 leukocytes 7 % 0-12 Automated blood eosinophils/100 leukocytes 2 % 0-10 Automated blood basophils/100 leukocytes 0 % 0-10 Blood neutrophils automated count (number/volume) 6.1 10*3 1.8-7.8 Blood lymphocytes automated count (number/volume) 2.9 10*3 1.0-4.0 Blood monocytes automated count (number/volume) 0.7 10*3 0.0-1.0 Automated eosinophil count 0.2 10*3/uL 0.0-0.3 Automated blood basophil count (count/volume) 0.0 10*3/uL 0.0-0.1 PT panel in platelet poor plasma by coagulation assay - 12/05/17 13:37 Prothrombin time (PT) in platelet poor plasma by coagulation assay 12.2 s 12.2-14.7 INR in platelet poor plasma or blood by coagulation assay 0.9 0.8-1.4 Activated partial thromboplastin time (aPTT) in platelet poor plasma bycoagulation assay - 12/05/17 13:37 Activated partial thromboplastin time (aPTT) in platelet poor plasma bycoagulation assay 27 s 24-35 Comprehensive metabolic panel - 12/05/17 13:37 Serum or plasma sodium measurement (moles/volume) 137 mmol/L 135-145 Serum or plasma potassium measurement (moles/volume) 3.8 mmol/L 3.6-5.0 Serum or plasma chloride measurement (moles/volume) 104 mmol/L 98-107 Carbon dioxide 28 mmol/L 21-32 Serum or plasma anion gap determination (moles/volume) 5 mmol/L 5-14 Serum or plasma urea nitrogen measurement (mass/volume) 13 mg/dL 7-18 Serum or plasma creatinine measurement (mass/volume) 0.78 mg/dL 0.60-1.30 Serum or plasma urea nitrogen/creatinine mass ratio 17 NRG Serum or plasma creatinine measurement with calculation of estimated glomerular filtration rate > NRG Serum or plasma glucose measurement (mass/volume) 134 mg/dL 70-105 Serum or plasma calcium measurement (mass/volume) 9.2 mg/dL 8.5-10.1 Serum or plasma total bilirubin measurement (mass/volume) 0.3 mg/dL 0.1-1.0 Serum or plasma alkaline phosphatase measurement (enzymatic activity/volume) 95 U/L 40-136 Serum or plasma aspartate aminotransferase measurement (enzymatic activity/ volume) 17 U/L 5-34 Serum or plasma alanine aminotransferase measurement (enzymatic activity/volume ) 22 U/L 0-55 Serum or plasma protein measurement (mass/volume) 7.4 g/dL 6.4-8.2 Serum or plasma albumin measurement (mass/volume) 3.9 g/dL 3.2-4.5 Magnesium - 12/05/17 13:37 Magnesium 1.6 mg/dL 1.8-2.4 Serum or plasma troponin i.cardiac measurement (mass/volume) - 12/05/17 13:37 Serum or plasma troponin i.cardiac measurement (mass/volume) < ng/ mL <0.30 Myoglobin, serum - 12/05/17 13:37 Myoglobin, serum 26.2 ng/mL 10.0-92.0 Complete blood count (CBC) with automated white blood cell (WBC) differential - 04/01/18 11:30 Blood leukocytes automated count (number/volume) 9.4 10*3/uL 4.3-11.0 Blood erythrocytes automated count (number/volume) 4.70 10*6/uL 4.35-5.85 Venous blood hemoglobin measurement (mass/volume) 13.1 g/dL 11.5-16.0 Blood hematocrit (volume fraction) 38 % 35-52 Automated erythrocyte mean corpuscular volume 81 [foz_us] 80-99 Automated erythrocyte mean corpuscular hemoglobin (mass per erythrocyte) 28 pg 25-34 Automated erythrocyte mean corpuscular hemoglobin concentration measurement ( mass/volume) 34 g/dL 32-36 Automated erythrocyte distribution width ratio 14.5 % 10.0-14.5 Automated blood platelet count (count/volume) 226 10*3/uL 130-400 Automated blood platelet mean volume measurement 11.8 [foz_us] 7.4-10.4 Automated blood neutrophils/100 leukocytes 59 % 42-75 Automated blood lymphocytes/100 leukocytes 33 % 12-44 Blood monocytes/100 leukocytes 5 % 0-12 Automated blood eosinophils/100 leukocytes 2 % 0-10 Automated blood basophils/100 leukocytes 0 % 0-10 Blood neutrophils automated count (number/volume) 5.6 10*3 1.8-7.8 Blood lymphocytes automated count (number/volume) 3.1 10*3 1.0-4.0 Blood monocytes automated count (number/volume) 0.5 10*3 0.0-1.0 Automated eosinophil count 0.2 10*3/uL 0.0-0.3 Automated blood basophil count (count/volume) 0.0 10*3/uL 0.0-0.1 Comprehensive metabolic panel - 04/01/18 11:30 Serum or plasma sodium measurement (moles/volume) 138 mmol/L 135-145 Serum or plasma potassium measurement (moles/volume) 4.3 mmol/L 3.6-5.0 Serum or plasma chloride measurement (moles/volume) 106 mmol/L 98-107 Carbon dioxide 21 mmol/L 21-32 Serum or plasma anion gap determination (moles/volume) 11 mmol/L 5-14 Serum or plasma urea nitrogen measurement (mass/volume) 10 mg/dL 7-18 Serum or plasma creatinine measurement (mass/volume) 0.80 mg/dL 0.60-1.30 Serum or plasma urea nitrogen/creatinine mass ratio 13 NRG Serum or plasma creatinine measurement with calculation of estimated glomerular filtration rate > NRG Serum or plasma glucose measurement (mass/volume) 101 mg/dL 70-105 Serum or plasma calcium measurement (mass/volume) 9.5 mg/dL 8.5-10.1 Serum or plasma total bilirubin measurement (mass/volume) 0.4 mg/dL 0.1-1.0 Serum or plasma alkaline phosphatase measurement (enzymatic activity/volume) 92 U/L 40-136 Serum or plasma aspartate aminotransferase measurement (enzymatic activity/ volume) 29 U/L 5-34 Serum or plasma alanine aminotransferase measurement (enzymatic activity/volume ) 36 U/L 0-55 Serum or plasma protein measurement (mass/volume) 7.3 g/dL 6.4-8.2 Serum or plasma albumin measurement (mass/volume) 4.1 g/dL 3.2-4.5 Serum or plasma amylase measurement (enzymatic activity/volume) - 04/01/18 11: 30 Serum or plasma amylase measurement (enzymatic activity/volume) 83 U /L 25-125 Lipase - 04/01/18 11:30 Lipase 64 U/L 8-78 Complete urinalysis with reflex to culture - 04/01/18 11:57 Urine color determination YELLOW NRG Urine clarity determination VERY CLOUDY NRG Urine pH measurement by test strip 6 5-9 Specific gravity of urine by test strip 1.015 1.016- 1.022 Urine protein assay by test strip, semi-quantitative 1+ NEGATIVE Urine glucose detection by automated test strip NEGATIVE NEGATIVE Erythrocytes detection in urine sediment by light microscopy 1+ NEGATIVE Urine ketones detection by automated test strip NEGATIVE NEGATIVE Urine nitrite detection by test strip NEGATIVE NEGATIVE Urine total bilirubin detection by test strip 1+ NEGATIVE Urine urobilinogen measurement by automated test strip (mass/volume) 1 mg/dL NORMAL Urine leukocyte esterase detection by dipstick 3+ NEGATIVE Automated urine sediment erythrocyte count by [...] culture YES NRG Bacterial urine culture - 04/01/18 11:57 Bacterial urine culture SEE COMMEN NRG COLONY COUNT . NRG Encounters ACCT No. Visit Date/Time Discharge Status Pt. Type Provider Facility Loc./Unit Complaint [id number] 04/20/2018 10:43:00 04/20/2018 14:35:00 DIS Outpatient VICTORIA CHÁVEZ MD [facility] ENDO ABNORMAL CT [id number] 04/13/2018 06:06:00 04/13/2018 14:54:00 DIS Outpatient VICTORIA CHÁVEZ MD [facility] PREOP COLONOSCOPY [id number] 04/01/2018 11:13:00 04/01/2018 13:31:00 DIS Emergency MURALI ORLANDO DO [facility] ER L SIDE PAIN [id number] 12/05/2017 13:18:00 12/05/2017 15:18:00 DIS Emergency JANELLE ESPITIA APRN [facility] ER CP,TIGHTENING IN CHEST [id number] 11/26/2017 07:41:00 11/26/2017 12:15:00 DIS Outpatient ZAFUTA KISHA CULLEN [facility] SDC RIGHT KNEE CHONDROMALACIA [id number] 11/20/2017 11:13:00 11/20/2017 11:30:00 DIS Outpatient KISHA BALDWIN MD [facility] PREOP RIGHT KNEE CHONDROMALACIA [id number] 11/11/2017 12:46:00 11/11/2017 23:59:59 CLS Outpatient NICKY THOMPSON MD [facility] RAD BREAST PAIN LT [id number] 11/10/2017 09:15:00 11/10/2017 23:59:59 CLS Preadmit NICKY THOMPSON MD [facility] RAD N64.4 BREAST PAIN LT [id number] 09/13/2017 15:03:00 09/13/2017 17:36:00 DIS Emergency OLIVA STALEY [facility] ER CHILLS,SORE THROAT,SOB [id number] 08/10/2017 11:29:00 08/10/2017 12:54:00 DIS Emergency JANELLE ESPITIA COUNTER STACKER [facility] ER CP [id number] 05/26/2017 09:37:00 05/26/2017 23:59:59 CLS Outpatient NICKY THOMPSON MD [facility] RAD SCREENING Z12.31 [id number] 05/08/2017 08:06:00 05/08/2017 23:59:59 CLS Outpatient MAJOR GIPSON COUNTER STACKER [facility] RAD DYSPNEA,LEG PAIN [id number] 05/07/2017 17:59:00 05/07/2017 18:57:00 DIS Emergency JANELLE ESPITIA [employer] [facility] ER PT FELL/LT ARM INJ [id number] 04/30/2017 14:21:00 04/30/2017 15:53:00 DIS Emergency LAYTON HERNANDEZ MD [facility] ER NAUSEA/FEVER [id number] 04/29/2017 15:19:00 04/29/2017 23:59:59 CLS Outpatient MAJOR GIPSON [employer] [facility] RAD SOB [id number] 03/05/2017 08:48:00 03/05/2017 12:30:00 DIS Outpatient KISHA BALDWIN MD [facility] SDC CHONDROMALACIA PATELLA RIGHT KNEE [id number] 02/28/2017 10:26:00 02/28/2017 10:57:00 DIS Outpatient KISHA BALDWIN MD [facility] PREOP RIGHT KNEE SCOPE [id number] 02/09/2017 08:27:00 02/09/2017 10:43:00 DIS Emergency LAUREL SHEN MD [facility] ER R KNEE TO FOOT PAIN [id number] 01/30/2017 20:20:00 01/30/2017 21:57:00 DIS Emergency JANELLE ESPITIA APRN [facility] ER POSSIBLE BLOOD CLOT IN R LEG [id number] 11/28/2016 11:41:00 11/28/2016 23:59:59 CLS Outpatient Nia RAI MD [facility] CARD COPD,CHEST PAIN,DM [id number] 11/27/2016 12:52:00 11/27/2016 23:59:59 CLS Outpatient Nia RAI MD [facility] CARD COPD,CHEST PAIN,DM,HLP [id number] 11/22/2016 14:41:00 11/22/2016 16:20:00 DIS Emergency RAQUEL ROLDAN [facility] ER YEAST INFECTION [id number] 11/04/2016 09:43:00 11/04/2016 23:59:59 CLS Outpatient PATRIC MONTERO MD [facility] RAD RIGHT LOWER QUAD PAIN [id number] 11/03/2016 09:43:00 11/03/2016 11:33:00 DIS Emergency YOUNG CULLEN, CHRISTO Huston [facility] ER CHEST PAIN/SORE THROAT [id number] 10/16/2016 15:43:00 10/16/2016 18:41:00 DIS Emergency LUNA LEGER MD [facility] ER ABD PAIN [id number] 09/19/2016 11:20:00 09/19/2016 17:40:00 DIS Outpatient STEPHANE KIMBLE DO Via [facility] SDC DYSKNESIA [id number] 09/16/2016 05:48:00 09/16/2016 14:05:00 DIS Outpatient KIMBLE STEPHANE LOU [facility] PREOP DYSKNESIA [id number] 09/13/2016 04:41:00 09/13/2016 08:35:00 DIS Emergency DAVID CULLEN, LAYTON Spencer [facility] ER SORE THROAT, CONSTIPATION,CHEST PAIN [id number] 09/03/2016 09:53:00 09/03/2016 23:59:59 CLS Outpatient DONNA CULLEN, NICKY Lawrence [facility] RAD RUQ PAIN [id number] 08/24/2016 15:39:00 08/24/2016 17:34:00 DIS Emergency JANELLE ESPITIA APRN [facility] ER BACK PAIN [id number] 08/15/2016 10:42:00 08/15/2016 12:18:00 DIS Emergency JANELLE 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 COUNTER STACKER [facility] ER SOA [id number] 08/03/2016 13:42:00 08/03/2016 15:35:00 DIS Emergency YOUNG CULLEN, CHRISTO Huston [facility] ER SORE THROAT/PAINFUL TONGUE /THROAT CLOSING [id number] 08/01/2016 12:59:00 08/01/2016 23:59:59 CLS Outpatient ZAHIRA PETERSEN DO [facility] RAD LUNG NODULE,SOB,MORBID OBESITY,ALLERGIC RHINITIS [id number] 07/18/2016 14:05:00 07/18/2016 15:11:00 DIS Emergency JANELLE ESPITIA COUNTER STACKER [facility] ER CHEST PAIN [id number] 07/11/2016 07:47:00 07/11/2016 23:59:59 CLS Outpatient EDI FAUSTIN DO [facility] RAD RUQ ABD PAIN [id number] 07/02/2016 12:50:00 07/02/2016 16:44:00 DIS Emergency AFRICA CULLEN, LUNA Crhistianson [facility] ER LOWER BACK PAIN/ VOMITING [id number] 06/28/2016 12:40:00 06/28/2016 23:59:59 CLS Outpatient ZURIEDI GARZA DO [facility] RAD LOWER ABD PAIN,HURTS TO PALPITATE WORSE ON LT SIDE [id number] 06/24/2016 08:15:00 06/24/2016 23:59:59 CLS Preadmit ZAHIRA PETERSEN DO [facility] PULM SOB,DYSPNEA,MORBID OBESITY,ALLERGIC RHINITIS [id number] 04/09/2016 09:00:00 06/23/2016 00:01:00 DIS Outpatient ZAHIRA PETERSEN DO [facility] PULM SOB,DYSPNEA,MORBID OBESITY,ALLERGIC RHINITIS [id number] 06/18/2016 15:18:00 06/18/2016 16:35:00 DIS Emergency JANELLE ESPITIA APRN [facility] ER ABD PAIN,NAUSEA [id number] 06/09/2016 15:11:00 06/09/2016 20:36:00 DIS Emergency LAYTON HERNANDEZ MD [facility] ER LIGHT HEADED/DIZZY/ BACK PAIN [id number] 05/24/2016 08:43:00 05/24/2016 23:59:59 CLS Outpatient EDI FAUSTIN DO [facility] RAD SEVERE L BREAST PAIN [id number] 05/15/2016 11:59:00 05/15/2016 13:58:00 DIS Emergency LUNA LEGER MD [facility] ER BACK/LEFT BREAST PAIN [id number] 05/08/2016 09:48:00 05/08/2016 15:15:00 DIS Outpatient KISHA BALDWIN MD [facility] SDC LEFT KNEE CHONDROMALASIA [id number] 05/01/2016 12:54:00 05/01/2016 16:15:00 DIS Outpatient KISHA BALDWIN MD [facility] PREOP LEFT KNEE CHONDROMALACIA [id number] 03/27/2016 10:23:00 03/27/2016 13:05:00 DIS Emergency LUNA LEGER MD [facility] ER CHEST PAIN [id number] 02/28/2016 08:51:00 02/28/2016 23:59:59 CLS Outpatient ZAHIRA PETERSEN DO [facility] LAB ALLERGIC RHINITIS, SOB DYSPNEA [id number] 02/21/2016 21:45:00 02/22/2016 02:03:00 DIS Emergency RAQUEL ROLDAN [facility] ER BACK PAIN [id number] 02/14/2016 08:34:00 02/14/2016 13:15:00 DIS Outpatient KISHA BALDWIN MD Via [facility] RIGHT INDEX FINGER CYST [id number] 02/06/2016 14:44:00 02/06/2016 16:11:00 DIS Outpatient KISHA BALDWIN MD [facility] PREOP RIGHT INDEX FINGER CYST [id number] 01/26/2016 14:10:00 01/26/2016 17:00:00 DIS Emergency SIERRA GOMEZ MD [facility] ER CHEST PAIN/LEFT SIDE NUMBNESS [id number] 01/24/2016 15:04:00 01/24/2016 23:59:59 CLS Outpatient MAJOR GIPSON COUNTER STACKER [facility] RT SOA, DYSPNEA [id number] 01/19/2016 15:25:00 01/19/2016 18:25:00 DIS Emergency JANELLE ESPITIA COUNTER STACKER [facility] ER LEFT SIDED BODY PAIN [id number] 12/20/2015 10:03:00 12/20/2015 15:35:00 DIS Outpatient KISHA BALDWIN MD Via [facility] RIGHT FINGER CYST [id number] 12/19/2015 16:48:00 12/19/2015 23:59:59 CLS Outpatient EDI FAUSTIN DO [facility] RAD LEFT RIB PAIN [id number] 12/16/2015 09:03:00 12/16/2015 10:50:00 DIS Emergency CHELSI GARCIA MD [facility] ER CHEST WALL/BACK PAIN [id number] 12/15/2015 10:52:00 12/15/2015 15:44:00 DIS Outpatient KISHA BALDWIN MD [facility] PREOP CYST RIGHT FINGER [id number] 11/29/2015 09:37:00 11/29/2015 23:59:59 CLS Outpatient KISHA CARRILLO MD [facility] RAD DSYPHAGIA [id number] 11/18/2015 12:02:00 11/18/2015 12:30:00 DIS Emergency CHELSI GARCIA MD [facility] ER SOA/COUGH/CHEST CONGESTION [id number] 11/13/2015 10:57:00 11/13/2015 23:59:59 CLS Outpatient KISHA CARRILLO MD [facility] RAD DYSPHAGIA OTHER, HOARSENESS [id number] 11/09/2015 21:02:00 11/10/2015 05:45:00 DIS Outpatient KISHA CARRILLO MD [facility] SLEEP CHRONIC OBSTRUCTIVE SLEEP APNEA [id number] 10/25/2015 06:55:00 10/25/2015 11:38:00 DIS Outpatient KISHA BALDWIN MD [facility] SDC LEFT ROTATOR CUFF TEAR [id number] 10/20/2015 10:31:00 10/20/2015 23:59:59 CLS Outpatient KISHA BALDWIN MD [facility] PREOP LEFT SHOULDER TORN ROTATOR CUFF [id number] 10/14/2015 14:28:00 10/14/2015 16:16:00 DIS Emergency LAYTON HERNANDEZ MD [facility] ER CHEST PAIN [id number] 09/24/2015 08:45:00 09/24/2015 10:53:00 DIS Emergency SIERRA GOMEZ MD [facility] ER COUGH CONGESTION RIB PAIN [id number] 09/18/2015 10:53:00 09/18/2015 23:59:59 CLS Outpatient EDI FAUSTIN DO [facility] RAD BRONCHITIS [id number] 09/14/2015 16:38:00 09/14/2015 18:52:00 DIS Emergency JANELLE ESPITIA APRN [facility] ER CHEST WALL PAIN, SORE THROAT, COUGH [id number] 08/22/2015 11:40:00 08/22/2015 23:59:59 CLS Outpatient EDI FAUSTIN DO [facility] RAD PNEUMONIA [id number] 08/12/2015 14:32:00 08/12/2015 16:26:00 DIS Emergency JANELLE ESPITIA COUNTER STACKER [facility] ER DIFF BREATHING/COUGH [id number] 08/08/2015 12:17:00 08/08/2015 23:59:59 CLS Outpatient KISHA BALDWIN MD [facility] RAD RTC TEAR [id number] 07/27/2015 10:36:00 07/27/2015 13:12:00 DIS Emergency JANELLE ESPITIA COUNTER STACKER [facility] ER CHEST PAIN [id number] 07/14/2015 11:29:00 07/14/2015 23:59:59 CLS Outpatient EDI FAUSTIN DO [facility] RAD SCREENING [id number] 06/13/2015 13:07:00 06/13/2015 14:53:00 DIS Emergency JANELLE ESPITIA COUNTER STACKER [facility] ER ABD PAIN [id number] 06/08/2015 20:58:00 06/08/2015 21:58:00 DIS Emergency RAQUEL ROLDAN [facility] ER DROWSINESS,VAG ITCHING /IRRITATION [id number] 05/21/2015 12:06:00 05/21/2015 13:10:00 DIS Emergency LUNA LEGER MD [facility] ER ALLERGIC REACTION [id number] 04/16/2015 21:00:00 04/18/2015 09:50:00 DIS Inpatient ANDERS CARRERO DO S [facility] SURGICAL UTI [id number] 04/09/2015 13:44:00 04/09/2015 16:42:00 DIS Emergency RAQUEL ROLDAN [facility] ER FEVER [id number] 05/06/2018 12:00:00 PEN Preadmit KISHA BALDWIN MD [facility] SDC LEFT KNEE MEDIAL AND LATERAL MENISCUS TEAR
[2018-05-06] MEDS ORDERED: LIDOCAINE PF 2% 5 ML (XYLOCAINE) VIAL ONE (10:31)
[2018-05-06] MEDS ORDERED: proPOfol 200 MG/20 ML (DIPRIVAN) VIAL IV ONE (10:31)
[2018-05-06] MEDS ORDERED: fentaNYL INJECTION 100 MCG/2 ML AMP ONE (10:31)
[2018-05-06] MEDS ORDERED: MIDAZOLAM 2 MG/2 ML (VERSED) VIAL ONE (10:32)
[2018-05-06] MEDS ORDERED: SEVOFLURANE (ULTANE) 15 ML INHAL SOLN ONE ×3 (10:34→11:52)
[2018-05-06] MEDS ORDERED: LACTATED RINGERS 1,000 ML IV PRN ×2 (10:34→10:52)
[2018-05-06] MEDS ORDERED: ONDANSETRON 4 MG/2 ML (SDV) Z0FRAN ONE (10:51)
[2018-05-06] MEDS ORDERED: FAMOTIDINE 20MG/2ML IV (PEPCID) ONE (10:51)
[2018-05-06] MEDS ORDERED: SCOPOLAMINE 1.5 MG (TRANSDERM-SCOP) PATCH ONE (10:51)
[2018-05-06] MEDS ORDERED: ONDANSETRON 4 MG/2 ML (SDV) Z0FRAN IV ONE (11:00)
[2018-05-06] MEDS ORDERED: SCOPOLAMINE 1.5 MG (TRANSDERM-SCOP) PATCH TOP ONE (11:00)
[2018-05-06] MEDS ORDERED: FAMOTIDINE 20MG/2ML IV (PEPCID) IV ONE (11:00)
[2018-05-06] MEDS ORDERED: HYDR-3816 PO (11:56)
[2018-05-06 12:35] VITALS: BP 116/86
[2018-05-06 13:05] VITALS: BP 106/79
[2018-05-06 13:35] VITALS: BP 113/68
--- NOTE | 2018-05-06 13:57 | Physical Therapy Progress Note ---
Therapy Progress Note Evaluation attempted. Patient states that she has had several knee scopes before and is familiar with the exercises she needs to do, how to use a walker, and has actually ambulated to the bathroom already. Patient did recite the correct home exercises. She has her own walker. Evaluation will not be performed at this time. OLVIN NICOLAS PT May 06, 2018 13:57
--- NOTE | 2018-05-06 14:07 | Anesthesia-General Post-Op ---
General Patient Condition Mental Status/LOC: Same as Preop Cardiovascular: Satisfactory Nausea/Vomiting: Absent Respiratory: Satisfactory Pain: Controlled Complications: Absent Post Op Complications Complications None Follow Up Care/Instructions Patient Instructions None needed. Anesthesia/Patient Condition Patient Condition Patient was seen after the procedure and she was doing well, no complaints, stable vital signs, no apparent adverse anesthesia problems. CHLOE TOMLINSON DO May 06, 2018 14:07
--- NOTE | 2018-05-06 19:12 | OPERATIVE REPORT ---
DATE OF SERVICE: 05/06/2018 PREOPERATIVE DIAGNOSES: 1. Left knee chondromalacia of the medial femoral condyle. 2. Left knee chondromalacia of medial tibial plateau. 3. Left knee chondromalacia of patella. POSTOPERATIVE DIAGNOSES: 1. Left knee chondromalacia of the medial femoral condyle. 2. Left knee chondromalacia of medial tibial plateau. 3. Left knee chondromalacia of patella. 4. Left knee chondromalacia of lateral femoral condyle. PROCEDURES: 1. Left knee arthroscopic chondroplasty of the medial femoral condyle. 2. Left knee arthroscopic chondroplasty of the medial tibial plateau. 3. Left knee arthroscopic chondroplasty of the lateral femoral condyle. 4. Left knee arthroscopic chondroplasty of the patella. SURGEON: Zion Baldwin MD. WINDOWS DEPLOYMENT TECHNICIAN: KIKA Cantrell, who assisted throughout the procedure and closed the incisions. ANESTHESIA: General endotracheal by Kalen An CRNA. TOURNIQUET TIME: Not applicable. ESTIMATED BLOOD LOSS: Minimal. DRAINS: None. COMPLICATIONS: None. POSTOPERATIVE PLANS: Routine arthroscopy protocol. The patient was transferred to the recovery room awake and in stable condition. STATEMENT OF MEDICAL NECESSITY: The patient is a 57-year-old female with known arthrosis of her left knee who reported increasing knee pain, catching, locking and swelling. She had failed to respond to conservative measures due to functional impairment. The patient elected to proceed with surgical intervention. Examination under anesthesia revealed range of motion of 0/3/125 with negative Rg, negative anterior and posterior drawer. No varus valgus laxity, negative pivot shift. Arthroscopic findings, the patella demonstrated an inferior osteophyte. There was diffuse grade IV chondral loss centrally with surrounding grade III chondral flaps at the periphery of a 20 x 20 lesion. The trochlea demonstrated diffuse grade II chondral loss. The medial and lateral gutters were clear. The lateral compartment demonstrated grade III chondral flap of the central portion of the lateral femoral condyle and a 10 x 10 area. No meniscal pathology was noted. The ACL and PCL were intact. The medial compartment demonstrated grade IV chondral loss over the central portion of femoral condyle and tibial plateau and a 10 x 10 area with surrounding grade III chondral flaps at the periphery of each lesion. DESCRIPTION OF PROCEDURE: After risks and benefits of procedure were discussed and questions were answered, an informed consent was signed and placed on chart. The operative site was confirmed in the preoperative holding area initialed by the surgeon. The patient was then transferred to the operating room and after adequate levels of general endotracheal anesthetic were obtained, a timeout was called confirming the operative site. Examination under anesthesia was performed with above findings noted. Left lower extremity was then prepped and draped in the usual sterile fashion. The knee joint was injected with 60 mL of fluid. An inferolateral portal was placed with the arthroscope. Under direct visualization, inferior medial portal was created. The menisci and cruciates were carefully probed with the above findings noted. The unstable chondral flaps of the patella were debrided with shaver back to a stable edge. The scope was redirected into the lateral compartment. The unstable chondral flaps in lateral femoral condyle were debrided with a shaver back to a stable edge. The scope was then redirected into the medial compartment where the unstable chondral flaps in the medial femoral condyle and medial tibial plateau were debrided with shaver back to a stable edge. Knee was copiously irrigated. Portal sites were closed with 4-0 nylon in simple interrupted fashion. Knee was injected with Duramorph. Portal sites were infiltrated with plain Marcaine. A soft dressing was applied and the patient was transferred to the recovery room awake and in stable condition. Job ID: [id number] DocumentID: [id number] Dictated Date: 05/06/2018 11:55:59 Import Clerk Date: 05/06/2018 19:11:25 Dictated By: ZION BALDWIN MD
== END 2018-05-06 13:45 | disposition home or self-care (01) ==
LOC: SDC 10:02
PROVIDERS: ATTEND Orthopaedic Surgery
DX: M22.42 Chondromalacia patellae, left knee (principal); E11.42 Type 2 diabetes mellitus with diabetic polyneuropathy; I20.9 Angina pectoris, unspecified; G47.33 Obstructive sleep apnea (adult) (pediatric); J44.9 Chronic obstructive pulmonary disease, unspecified; J45.909 Unspecified asthma, uncomplicated; K21.9 Gastro-esophageal reflux disease without esophagitis; E66.01 Morbid (severe) obesity due to excess calories; Z68.41 Body mass index [BMI] 40.0-44.9, adult; Z87.891 Personal history of nicotine dependence; Z79.82 Long term (current) use of aspirin; Z79.84 Long term (current) use of oral hypoglycemic drugs
CPT/HCPCS: 82962

== ENCOUNTER → 2018-06-15 | Outpatient (CLI) | payer MEDICARE, MEDICAID ==
[~2018-06-15] MED LIST changes: -BENZ-13 PO; +BENZ100C18 PO; +HYDR-3816 PO; +METF-397 PO; +METF-399 PO; -METF10002 PO; -METF500T5 PO; -OXCA300T PO; +OXCA300T18 PO; -OXYC-197 PO; +OXYC1TAB87 PO
--- NOTE | 2018-06-15 14:47 | Diagnostic Imaging Report ---
PROCEDURE: CT abdomen without contrast. TECHNIQUE: Multiple contiguous axial images were obtained through the abdomen without the use of intravenous contrast. INDICATION: Right upper quadrant abdominal pain. COMPARISON: Correlation is made with prior CT from 04/01/2018. FINDINGS: The lung bases are clear. No discrete liver mass is identified. The gallbladder is surgically absent. No biliary ductal dilatation is seen. The pancreas and spleen are unremarkable. No adrenal mass is identified. The kidneys are unremarkable. No calculi or hydronephrosis is identified. The aorta is non-aneurysmal. Small and large bowel loops are normal caliber. There is no ascites. No inflammatory process is seen. IMPRESSION: No acute abnormality is detected. Dictated by: Dictated on workstation # [id number]
== END ==
LOC: RAD 14:10
PROVIDERS: ATTEND Nurse Practitioner Family
DX: R10.11 Right upper quadrant pain (principal); Z90.49 Acquired absence of other specified parts of digestive tract
CPT/HCPCS: 74150

== ENCOUNTER 2018-07-09 11:46 | Outpatient (CLI) | payer MEDICARE, MEDICAID ==
[~2018-07-09] VITALS: Ht 175.3 cm; Wt 126.1 kg
[2018-07-09 11:57] VITALS: BP 135/82
[2018-07-09 12:34] LABS: BASOPHILS % (AUTO) 0 % (0-10); EOSINOPHILS # (AUTO) 0.2 10^3/uL (0.0-0.3); EOSINOPHILS % (AUTO) 2 % (0-10); HEMATOCRIT 38 % (35-52); HEMOGLOBIN 12.8 G/DL (11.5-16.0); LYMPHOCYTES # (AUTO) 3.1 X 10^3 (1.0-4.0); LYMPHOCYTES % (AUTO) 35 % (12-44); MEAN CORPUSCULAR HEMOGLOBIN 27 PG (25-34); MEAN CORPUSCULAR HGB CONC 34 G/DL (32-36); MEAN CORPUSCULAR VOLUME 81 FL (80-99); MONOCYTES # (AUTO) 0.4 X 10^3 (0.0-1.0); MONOCYTES % (AUTO) 5 % (0-12); NEUTROPHILS # (AUTO) 5.2 X 10^3 (1.8-7.8); NEUTROPHILS % (AUTO) 58 % (42-75); PLATELET COUNT 242 10^3/uL (130-400); RED BLOOD COUNT 4.72 10^6/uL (4.35-5.85); RED CELL DISTRIBUTION WIDTH 14.1 % (10.0-14.5)
[2018-07-09 12:36] LABS: BILIRUBIN,URINE NEGATIVE (NEGATIVE); CLARITY,URINE SLIGHTLY CLOUDY; COLOR,URINE YELLOW; GLUCOSE, URINE (UA) NEGATIVE (NEGATIVE); KETONES,URINE NEGATIVE (NEGATIVE); LEUKOCYTE ESTERASE ,URINE 1+ (NEGATIVE); NITRITE,URINE NEGATIVE (NEGATIVE); PH,URINE 5 (5-9); PROTEIN,URINE 1+ (NEGATIVE); UROBILINOGEN,URINE NORMAL (NORMAL)
[2018-07-09 12:46] LABS: BACTERIA,URINE MODERATE /HPF
[2018-07-09 12:49] LABS: PROTHROMBIN TIME PATIENT 12.7 SEC (12.2-14.7)
[2018-07-09 12:56] LABS: ALANINE AMINOTRANSFERASE 40 U/L (0-55); ALBUMIN 4.1 GM/DL (3.2-4.5); ALKALINE PHOSPHATASE 94 U/L (40-136); BILIRUBIN,TOTAL 0.4 MG/DL (0.1-1.0); BUN/CREATININE RATIO 11; CALCIUM 9.5 MG/DL (8.5-10.1); CARBON DIOXIDE 22 MMOL/L (21-32); CHLORIDE 102 MMOL/L (98-107); GFR ESTIMATED > 60; GLUCOSE 127 MG/DL (70-105); POTASSIUM 3.8 MMOL/L (3.6-5.0); SODIUM 136 MMOL/L (135-145); TOTAL PROTEIN 7.6 GM/DL (6.4-8.2)
[2018-07-09 12:58] LABS: ERYTHROCYTE SEDIMENTATION RATE 29 MM/HR (0-30)
== END 2018-07-09 12:30 | disposition home or self-care (01) ==
LOC: PREOP 11:46
PROVIDERS: ATTEND Orthopaedic Surgery
DX: Z01.812 Encounter for preprocedural laboratory examination (principal); Z11.2 Encounter for screening for other bacterial diseases; M17.12 Unilateral primary osteoarthritis, left knee; R53.83 Other fatigue; R82.90 Unspecified abnormal findings in urine
CPT/HCPCS: 36415; 80053; 81000; 85025; 85610; 85652; 86850; 86900; 86901; 87081; 87088

== ENCOUNTER 2018-07-15 06:08 | Inpatient (IN) | payer MEDICARE, MEDICAID ==
--- NOTE | 2018-07-06 10:40 | HISTORY AND PHYSICAL ---
DATE OF SERVICE: ADMISSION HISTORY AND PHYSICAL This will be for inpatient admission on 07/15/2018 for left total knee arthroplasty. DATE OF SURGERY: 07/15/2018. HISTORY OF PRESENT ILLNESS: The patient is a 57-year-old female with progressive worsening left knee pain. She has osteoarthritis in all three compartments. She has undergone treatment with injections, anti-inflammatories and arthroscopy without relief. She reports continued progressive pain and activity limitations because of the knee. Due to failure to improve with extensive conservative measures, the patient has elected to proceed with surgical intervention. REVIEW OF SYSTEMS: No chest pain, no shortness of breath. No dysuria. PAST MEDICAL HISTORY: COPD, diabetes, depression, hypercholesterolemia, back pain, sleep apnea, bipolar disorder, allergic rhinitis, cardiomegaly and morbid obesity. PAST SURGICAL HISTORY: Carpal and cubital tunnel releases, bilateral knee arthroscopies, left shoulder arthroscopy, cholecystectomy and hysterectomy. FAMILY HISTORY: Significant for lupus, multiple sclerosis, COPD, hypertension and diabetes. PRIMARY CARE PROVIDER: [facility]. MEDICATIONS: Lipitor, omeprazole, fluoxetine, metformin, Advair, Meloxicam albuterol, ProAir and Breo Ellipta. ALLERGIES: PENICILLIN, DOXYCYCLINE and CONTRAST DYES. SOCIAL HISTORY: The patient is a former smoker and drinks alcohol rarely. RADIOGRAPHS: Reveal medial and patellofemoral joint space loss. PHYSICAL EXAMINATION: GENERAL: The patient is well developed, well nourished, in no acute distress. HEENT: Normocephalic and atraumatic. Pupils are equal, round and reactive to light. Oropharynx is clear. NECK: Supple, with no lymphadenopathy. LUNGS: Clear to auscultation bilaterally. HEART: Regular rate and rhythm. ABDOMEN: Soft, nontender and nondistended. EXTREMITIES: Examination of the left knee demonstrates range of motion 0/3/125. No varus valgus laxity. Negative anterior and posterior drawer. Sensation is intact distally. She has negative straight leg raise. She ambulates with an antalgic gait. IMPRESSION: Left knee severe primary osteoarthritis unresponsive to conservative measures. PLAN: Left total knee arthroplasty. The risks, benefits, options, ramifications and recovery were discussed at length with the patient. She understands and wishes to proceed. She will require regular inpatient admission due to pain management, mobility issues and comorbidities including COPD and obesity. Job ID: [id number] DocumentID: [id number] Dictated Date: 07/06/2018 10:11:45 Duster Tender Date: 07/06/2018 10:40:06 Dictated By: KISHA BALDWIN MD
[~2018-07-15] VITALS: Ht 175.3 cm; Wt 126.1 kg
[2018-07-15 06:25] VITALS: BP 116/74
[2018-07-15] MEDS ORDERED: LIDOCAINE 1% INJ 20 ML 20 ML VIAL ONE (06:30)
[2018-07-15] MEDS: LACTATED RINGERS 1,000 ML IV PRN ×2 (06:55→09:14)
[2018-07-15] MEDS ORDERED: CEFUROXIME 1.5 GM (ZINACEF) VIAL ONE (06:57)
[2018-07-15] MEDS ORDERED: SCOPOLAMINE 1.5 MG (TRANSDERM-SCOP) PATCH ONE (06:57)
[2018-07-15] MEDS ORDERED: proPOfol 200 MG/20 ML (DIPRIVAN) VIAL IV ONE (06:58)
[2018-07-15] MEDS ORDERED: FAMOTIDINE 20MG/2ML IV (PEPCID) ONE (06:58)
[2018-07-15] MEDS ORDERED: ONDANSETRON 4 MG/2 ML (SDV) Z0FRAN ONE ×2 (06:58)
[2018-07-15] MEDS ORDERED: MIDAZOLAM 2 MG/2 ML (VERSED) VIAL ONE (06:59)
[2018-07-15] MEDS ORDERED: fentaNYL INJECTION 100 MCG/2 ML AMP ONE ×2 (06:59→08:26)
[2018-07-15] MEDS ORDERED: SCOPOLAMINE 1.5 MG (TRANSDERM-SCOP) PATCH TD ONE (07:00)
[2018-07-15] MEDS ORDERED: ONDANSETRON 4 MG/2 ML (SDV) Z0FRAN IV ONE (07:00)
[2018-07-15] MEDS ORDERED: LIDOCAINE PF 2% 5 ML (XYLOCAINE) VIAL ONE ×3 (07:00→07:29)
[2018-07-15] MEDS ORDERED: FAMOTIDINE 20MG/2ML IV (PEPCID) IV ONE (07:00)
[2018-07-15] MEDS ORDERED: NS (IVPB) 50 ML ONE (07:01)
[2018-07-15] MEDS ORDERED: diphenhydrAMINE 50 MG/ML INJ (BENADRYL) IVP PRN (07:15)
[2018-07-15] MEDS ORDERED: morphine PCA 100 MG/100 ML BAG IV PRN (07:15)
[2018-07-15] MEDS ORDERED: ACETAMINOPHEN 325 MG TABLET PO PRN (07:15)
[2018-07-15] MEDS ORDERED: PROMETHAZINE INJ 25 MG/ML (PHENERGAN) AMP IVP PRN (07:15)
--- NOTE | 2018-07-15 07:24 | Progress Note-Pre Operative ---
Pre-Operative Progress Note H&P Reviewed The H&P was reviewed, patient examined and no changes noted. Date Seen by Provider: Jul 15, 2018 Time Seen by Provider: 07:15 Date H&P Reviewed: Jul 15, 2018 Time H&P Reviewed: 07:11 Pre-Operative Diagnosis: left knee primary osteoarthritis KISHA BALDWIN MD Jul 15, 2018 07:24
[2018-07-15] MEDS ORDERED: ROPIVACAINE 5MG/ML 30ML VIAL ONE (07:25)
--- NOTE | 2018-07-15 07:25 | Progress Note-Post Operative ---
Post-Operative Progess Note Surgeon (s)/Case Coordinator (s) Surgeon KISHA BALDWIN MD Case Coordinator: Boy Shepherd Pre-Operative Diagnosis left knee primary osteoarthritis Post-Operative Diagnosis left knee primary osteoarthritis Procedure & Operative Findings Date of Procedure 07/15/18 Procedure Performed/Findings left total knee arthroplasty Anesthesia Type GETA Estimated Blood Loss Estimated blood loss (mL): minimal Specimens/Packing Specimens Removed none Packing: none KISHA BALDWIN MD Jul 15, 2018 07:25
[2018-07-15] MEDS ORDERED: BUPIVACAINE 0.5% 30 ML (SENSORCAINE) VIAL ONE (07:26)
[2018-07-15] MEDS ORDERED: OXYC1TAB87 PO (07:26)
--- NOTE | 2018-07-15 07:28 | D/C HH Face to Face Order ---
D/C Face to Face Orders Instructions for Patient Via [facility], Patient Instructions/FollowUp: three weeks Physician to follow Patient: three weeks Discharge Diet for Home: Regular Diet Patient Data-Allergies,Ht & Wt Patient Allergies: Coded Allergies: ondansetron (Verified Allergy, Mild, NAUSEA, 04/30/18) Iodinated Contrast- Oral and IV Dye (Unverified Allergy, Unknown, 04/30/18) penicillin (Verified Allergy, Unknown, HAS RECEIVED ROCEPHIN, 04/30/18) Height (Feet): 5 Height (Inches): 9.00 Weight (Pounds): 278 Weight (Ounces): 0.0 Home Health Need/Face to Face Date of Face to Face: Jul 15, 2018 Clinical Findings: Instability, Muscle weakness, Pain with ambulation, Unsteady gait I have seen Pt [id number]: Yes Discharged To: Home Diagnosis/Conditions: left total knee arthroplasty Patient is Homebound due to: Irma fall risk due to instabilty, Muscle weakness , Pain w/ambulation Homebound Status Due to the above stated illness, injury or surgical procedure (medical condition or diagnosis) and associated clinical findings, the patient is homebound because of his/her inability to leave home except with aid of a supportive device and/or person AND leaving the home requires a considerable and taxing effort or is medically contraindicated. Pt req the following assistanc: Walker Home Health Nursing Orders Home Health Services Order: Physical Therapy-Evaluate & Treat Therapy Orders Therapy Orders: Physical Therapy, PT to assess for OT Therapy Specific Orders: Eval assistive deivces, Teach enviro modifications/ safety, Gait training, Increase strength/endurance, Provider maintenance therapy , Restore ROM DC knee carlos and apply steri strips 07/29/18 Certify Stmt I certify that this patient is under my care and that I, a nurse practitioner or a physician; a assistant secretary working with me, had a face to face encounter that - meets the physician face to face encounter requirements with this patient as dated. KISHA BALDWIN MD Jul 15, 2018 07:28
[2018-07-15] MEDS ORDERED: INTRA-ARTICULAR IU ONE ×5 (07:30)
[2018-07-15] MEDS ORDERED: CEFUROXIME INJECTION 1,500 MG in NS (IVPB) 50 ML IV ONE (07:30)
[2018-07-15] MEDS ORDERED: SEVOFLURANE (ULTANE) 15 ML INHAL SOLN ONE ×6 (08:14→09:22)
[2018-07-15] MEDS ORDERED: ROCURONIUM 10 MG/ML 5 ML SYRINGE IV ONE (08:14)
[2018-07-15] MEDS ORDERED: TRANEXAMIC ACID 100 MG/ML 10 ML INJECTION IV ONE (09:05)
[2018-07-15] MEDS ORDERED: NEOSTIGMINE 1 MG/ML 5 ML SYRINGE ONE (09:05)
[2018-07-15] MEDS ORDERED: GLYCOPYRROLATE 0.2 MG/ML (ROBINUL) 2 ML VIAL ONE ×2 (09:05→09:15)
[2018-07-15] MEDS ORDERED: morphine INJ 10 MG/ML 1ML (SYR OR VIAL) ONE (09:34)
[2018-07-15] MEDS ORDERED: ONDANSETRON 4 MG/2 ML (SDV) Z0FRAN IVP PRN (09:45)
[2018-07-15] MEDS ORDERED: HYDROmorphone 2 MG/ML VIAL (DILAUDID) IV ONE (09:45)
[2018-07-15] MEDS ORDERED: morphine INJ 10 MG/ML 1ML (SYR OR VIAL) IVP ONE (09:45)
[2018-07-15] MEDS ORDERED: MEPERIDINE (DEMEROL) INJ 50 MG/ML IVP ONE (09:45)
[2018-07-15] MEDS ORDERED: HYDROmorphone 2 MG/ML VIAL (DILAUDID) ONE (09:56)
--- NOTE | 2018-07-15 11:13 | Progress Note-Standard ---
Standard Progress Note Progress Notes/Assess & Plan Date Seen by a Provider: Jul 15, 2018 Time Seen by a Provider: 09:30 Progress/Assessment & Plan post op check no complaints radiographs--HW well positioned without fracture LLE--intact DF and PF of toes and ankle. brisk cap refill with equal pulses. sensation intact throughout s/p LTKA mobilize as able KISHA BALDWIN MD Jul 15, 2018 11:13
--- NOTE | 2018-07-15 11:15 | Diagnostic Imaging Report ---
INDICATION: Postoperative. TECHNIQUE: 2 post operative radiographs of the left knee 9:46 AM CORRELATION STUDY: None FINDINGS: There are postsurgical changes of a total knee arthroplasty. Alignment is anatomic. Installed hardware appearing unremarkable. Overlying soft tissue gas collections and skin carlos are present. IMPRESSION: Postsurgical changes of a left total knee replacement. Dictated by: Dictated on workstation # [id number]
[2018-07-15] MEDS: NS IV 1000 ML 1,000 ML IV SCH (11:30)
[2018-07-15] MEDS ORDERED: FLU QUADRIvalent (5+ YOA) 2018-2019 (AFLURIA) 0.5 ML IM ONE ×2 (11:45→14:46)
[2018-07-15 12:00] VITALS: BP 139/78
[2018-07-15] MEDS: SENNA W/DOCUSATE (SENOKOT S) TABLET PO SCH ×2 (12:33→22:18)
--- NOTE | 2018-07-15 13:14 | OPERATIVE REPORT ---
DATE OF SERVICE: 07/15/2018 PREOPERATIVE DIAGNOSIS: Left knee primary osteoarthritis. POSTOPERATIVE DIAGNOSIS: Left knee primary osteoarthritis. PROCEDURE: Left total knee arthroplasty. SURGEON: Zion Meredith MD ACCOUNTS RECEIVABLE MANAGER: KIKA Cantrell, who assisted throughout the procedure and closed the incision. ANESTHESIA: General endotracheal plus regional nerve block by Scott David CRNA. TOURNIQUET TIME: Approximately, 70 minutes at 300 mmHg. ESTIMATED BLOOD LOSS: Minimal. DRAINS: None. COMPLICATIONS: None. POSTOPERATIVE PLAN: Routine total knee arthroplasty protocol. The patient was transported to the recovery room awake and in stable condition. MATERIALS: Aesculap cemented 6 narrow femur, cemented size 5 tibia with 10 mm insert and cemented size 32 patella. STATEMENT OF MEDICAL NECESSITY: The patient is a 57-year-old female with longstanding progressive left knee pain. She has undergone treatment with multiple injections as well as arthroscopies without relief. She had grade IV chondral loss in all three compartments. She reported functional impairment. Due to her failure to respond to conservative measures, the patient elected to proceed with surgical intervention. DESCRIPTION OF PROCEDURE: After risks and benefits of the procedure were discussed and questions were answered, an informed consent was signed and placed on chart. The operative site was confirmed in the preoperative holding area and initialed by the surgeon. The patient was then transferred to the operating room and after adequate levels of general endotracheal anesthetic were obtained, a timeout was called confirming the operative site. The left lower extremity was then prepped and draped in the usual sterile fashion with the leg elevated and the knee flexed. Tourniquet was inflated to 300 mmHg. Standard anterior approach was utilized. Hemostasis was obtained with cautery. A medial parapatellar arthrotomy was performed leaving 1 cm cuff on the patella for later reattachment. A portion of the fat pad was resected. A subperiosteal release was performed on the proximal medial tibia being careful to stay on the bony surface. The ACL was resected. A portion of the PCL was released. The intramedullary guide was passed into the femur. The distal cutting block was placed and distal cut was made. The 4 in 1 cutting block was placed parallel to the epicondylar axis and cuts were made from posterior to anterior. A subperiosteal release was then carefully performed on the posterior distal femur, being careful to stay on the bony surface. Intramedullary guide was then passed into the tibia and the cutting block was placed. The drop sanjuanita transected the intermalleolar axis and the cut was made. The five baseplate was placed and pinned into position. Again, the drop sanjuanita transected the intermalleolar axis. This was then prepared with the drill and punched. The trials were then inserted with a 10 mm insert, full extension was obtained and 120 degrees of flexion with gravity was obtained. The patella was then prepared using a freehand technique by resecting 10 mm off the undersurface. The peg guide was placed and peg holes were drilled. The trial was placed and the patella tracked well. The trials were removed. The joint was copiously irrigated with pulse lavage. A periarticular block was placed on the posterior capsule, medial and lateral retinaculum and extensor mechanism as well as the subcutaneous tissues. The bone ends were irrigated and dried. The tibial baseplate was cemented into position. The superior surface was irrigated and dried and the polyethylene insert was placed. The distal femur was irrigated and dried and the femoral prosthesis was cemented into position. Excessive cement was removed. The knee was brought out into full extension until the cement had cured. The knee was brought out in full extension until the cement had cured. Then, the undersurface of the patella was irrigated and dried and the patellar button was cemented into position. Once the cement had cured, the knee was taken through the range of motion. Full extension was obtained, 120 degrees of flexion with gravity was easily obtained. The patella tracked well. There was no varus valgus laxity. Negative anterior and posterior prop drawer flexion and extension. The joint was further irrigated with pulse lavage. The arthrotomy was closed with #2 Tevdek in [id number] interrupted fashion. The knee was flexed. The patella tracked well with no undue tension at the repair site. Subcutaneous tissues were irrigated with pulse lavage. A total of 6 liters throughout the procedure was used. 0 Vicryl was used for the deep subcutaneous tissue, 2-0 Vicryl for the superficial subcutaneous tissue, carlos used on the skin. A soft dressing was applied. The tourniquet was deflated and the patient was transported to the recovery room, awake and in stable condition. Job ID: [id number] DocumentID: [id number] Dictated Date: 07/15/2018 09:33:55 Director Of Medical Staff Services Date: 07/15/2018 13:13:43 Dictated By: ZION MEREDITH MD
[2018-07-15] MEDS: CEFUROXIME INJECTION 750 MG in NS (IVPB) 50 ML IV SCH ×2 (14:51→23:06)
[2018-07-15 16:16] VITALS: BP 117/74
--- NOTE | 2018-07-15 16:54 | Physical Therapy Evaluation ---
PT Evaluation-General Medical Diagnosis Admission Date Jul 15, 2018 at 06:08 Medical Diagnosis: left TKA Onset Date: Jul 15, 2018 Therapy Diagnosis Therapy Diagnosis: impaired mobility, strength, endurance, ROM Height/Weight Height (Feet): 5 Height (Inches): 9.00 Weight (Pounds): 278 Weight (Ounces): 0.0 Precautions Precautions/Isolations: Standard Precautions Weight Bear Status Left Lower Extremity: Left Weight Bearing/Tolerated Referral Physician: Boy Shepherd APRN Reason for Referral: Evaluation/Treatment Medical History Additional Medical History PAST MEDICAL HISTORY: COPD, diabetes, depression, hypercholesterolemia, back pain, sleep apnea, bipolar disorder, allergic rhinitis, cardiomegaly and morbid obesity. PAST SURGICAL HISTORY: Carpal and cubital tunnel releases, bilateral knee arthroscopies, left shoulder arthroscopy, cholecystectomy and hysterectomy. Reviewed History: Yes Social History Home: Single Level Entry Into Home: Stairs With Railing PT Steps Into Home: 3 Patient states she has help at home but will not elaborate on who it is or if she lives alone. Patient is very drowsy and cannot stay awake. Prior/Core FIM Prior Level of Function Functional [place] Measure 0=Not Assessed/NA 4=Minimal Assistance 1=Total Assistance 5=Supervision or Setup 2=Maximal Assistance 6=Modified [place] 3=Moderate Assistance 7=Complete IndependenceIRFPAI Quality Coding Scale 6 Independent with activity with or without an assistive device 5 Patient requires set up or clean up by helper. Patient completes activity by themselves 4 Supervision or touching assist (CGA). [place] provide cues , steadying assist 3 The helper provides less than half the effort to complete the activity 2 The helper provides more than half the effort to complete the activity 1 Dependent. The helper does all the effort to complete an activity 7 Patient refused to complete or attempt activity 9 The patient did not perform the activity before the current illness or injury 88 Not attempted due to Medical conditions or safety concerns Bed Mobility: 7 Transfers (B,C,W/C) (FIM): 7 Gait: 6 Patient states she used a single point cane occasionally. PT Evaluation-Current Subjective Patient in bed pre tx, agrees to PT, has no complaints of pain. Patient is extremely drowsy, cannot stay awake for more than a few seconds even with performing exercises. Pt/Family Goals to be independent at home Objective Patient Orientation: Person, Situation ROM/Strength ROM Lower Extremities left knee extension +5 degrees, flexion 40 degrees Strength Lower Extremities NT Neuromuscular (Tone, Coordination, Reflexes) NT Sensory Vision: Functional Hearing: Functional Sensation Right Lower Extremit: Intact Sensation Left Lower Extremity: Intact Transfers Functional [place] Measure 0=Not Assessed/NA 4=Minimal Assistance 1=Total Assistance 5=Supervision or Setup 2=Maximal Assistance 6=Modified [place] 3=Moderate Assistance 7=Complete [place] Treatment Patient performed left TKA exercises x10 (AP, QS, HS, SAQ, SLR), CPM donned and fit to patient and set at -2/40 degrees, ice and SCD's on. Patient is extremely drowsy, too drowsy to get out of bed or even sit at the edge of the bed safely. Patient performed exercises and CPM donned. Patient cannot stay awake for more than a few seconds. Patient needed to use the bedpan, it was placed and patient fell asleep, checked to see if she was done and she said she still had to go, went back to sleep, checked on patient to see if she was done and she said she still needed to go, went to sleep, this happened over and over. Finally, bedpan was removed and CPM placed. Assessment/Needs Patient has impaired mobility, strength, endurance, ROM post left TKA. Rehab Potential: Fair PT Short Term Goals Short Term Goals Time Frame: Jul 22, 2018 Transfers (B,C,W/C) (FIM): 4 Gait (FIM): 2 Gait Distance Comment: 50' Gait Level of Assist: 4 Gait Assistive Device: FWW PT Plan Problem List Problem List: Activity Tolerance, Functional Strength, Safety, Balance, Gait, Transfer, Bed Mobility, ROM Treatment/Plan Treatment Plan: Continue Plan of Care Treatment Plan: Bed Mobility, Concurrent Therapy, Education, Functional Activity Main, Functional Strength, Gait, Safety, Therapeutic Exercise, Transfers Treatment Duration: Jul 22, 2018 Frequency: 11 times per week Estimated Hrs Per Day: .25 hour per day (15-30') Patient and/or Family Agrees t: Yes Safety Risks/Education Patient Education: Reviewed Precautions, Reviewed Use of Ice, Correct Positioning, Disease Process, Safety Issues Teaching Recipient: Patient Teaching Methods: Demonstration, Discussion Response to Teaching: Reinforcement Needed Discharge Recommendations Plan Patient will perform bed mobility and transfer training, balance and endurance training, functional strengthening, stair training, gait training, and education , to improve functional mobility and independence at home. Therapy D/C Recommendations: Home w/ Family Support Time/GCodes Time In: 1600 Time Out: 1630 Total Billed Treatment Time: 30 Total Billed Treatment 1 visit EVM 30' OLVIN NICOLAS PT Jul 15, 2018 16:54
[2018-07-15] MEDS: PANTOPRAZOLE 40 MG (PROTONIX) TAB PO SCH (17:28)
[2018-07-15 20:03] VITALS: BP 125/82
--- NOTE | 2018-07-15 22:20 | Consultation (CHS) ---
HPI History of Present Illness: Asked to see patient for medicine consult after Left Total knee NIDDM: Controlled on metformin. COPD: Controlled with Breo and nebulizer treatments. No recent acute exacerbations ENRRIQUE: uses CPAP at home Obesity: Has been working on weight loss at home. States that she is doing well after surgery. Pain is well controlled. Source: patient Exam Limitations: no limitations Date seen by provider: Jul 15, 2018 Time Seen by Provider: 10:00 Attending Physician Zion Meredith MD PCP Nicky Espino MD Consult Date of Admission Jul 15, 2018 at 06:08 Home Medications Home Medications Reviewed patient Home Medication Reconciliation performed by pharmacy medication reconciliations lead technician and/or nursing. Patients Allergies have been reviewed. Allergies Coded Allergies: nickel (Verified Allergy, Intermediate, RASH, 07/15/18) Iodinated Contrast- Oral and IV Dye (Verified Allergy, Unknown, 07/15/18) penicillin (Verified Allergy, Unknown, HAS RECEIVED ROCEPHIN, 04/30/18) [id number]-[id number] Hx Patient Social History Living Status: Lives at home alone Alcohol Use: Rarely Uses Recreational Drug Use: No Smoking Status: Former Smoker Former smoker/When Quit: Apr 09, 2010 Type Used: Cigarettes 2nd Hand Smoke Exposure: No Recent Foreign Travel: No Contact w/other who traveled: No Recent Hopitalizations: No Recent Infectious Disease Expo: No Physical Abuse Screen: No Sexual Abuse: No Immunizations Up To Date Tetanus Booster (TDap): Unknown Date of Pneumonia Vaccine: Mar 13, 2018 Date of Influenza Vaccine: Jul 16, 2017 Past Medical History NIDDM COPD ENRRIQUE Obesity BMI 41 Family Medical History Significant Family History: No Pertinent Family Hx Family History: Arthritis 19 MOTHER, Onset:Unknown Asthma 19 FATHER, Onset:Unknown Cataracts 19 MOTHER, Onset:Unknown Diabetes mellitus 19 MOTHER, Onset:Unknown FH: COPD (chronic obstructive pulmonary disease) 19 FATHER, Onset:Unknown Hypercholesterolemia 19 MOTHER MS (multiple sclerosis) G8 SISTER, Onset:Unknown Review of Systems ([facility]C) Constitutional: no symptoms reported EENTM: no symptoms reported Respiratory: no symptoms reported; No cough, No dyspnea on exertion, No short of breath Cardiovascular: no symptoms reported; No chest pain, No edema, No palpitations Gastrointestinal: no symptoms reported; No constipation, No diarrhea; nausea; No vomiting Genitourinary: no symptoms reported; No dysuria, No frequency, No hematuria : No Musculoskeletal: joint pain Skin: no symptoms reported; No lesions, No rash Psychiatric/Neurological: No Symptoms Reported Reviewed Test Results Reviewed Test Results Lab Laboratory Tests Test 07/15/18 06:51 Range/Units Glucometer 137 H 70-110 MG/DL Physical Exam-([facility]) Physical Exam Vital Signs VS - Last 72 Hours, by Label 07/15/18 07/15/18 07/15/18 07/15/18 06:25 12:00 16:14 16:16 Temp 97.6 97.7 98.5 Pulse 86 115 120 Resp 18 18 20 B/P (MAP) 116/74 (88) 139/78 (98) 117/74 (88) Pulse Ox 96 94 91 O2 Delivery Room Air Room Air Nasal Cannula Nasal Cannula O2 Flow Rate 2.00 2.00 07/15/18 07/15/18 07/15/18 19:15 20:03 20:20 Temp 98.8 Pulse 105 Resp 18 18 B/P (MAP) 125/82 (96) Pulse Ox 94 O2 Delivery Nasal Cannula Nasal Cannula O2 Flow Rate 2.00 2.00 Capillary Refill : General Appearance: WD/WN, no apparent distress, obese HEENT: PERRL/EOMI Neck: non-tender, full range of motion, supple Respiratory: chest non-tender, lungs clear, normal breath sounds, no respiratory distress, no accessory muscle use Cardiovascular: normal peripheral pulses, regular rate, rhythm, no murmur Gastrointestinal: normal bowel sounds, non tender, soft, no organomegaly Back: no CVA tenderness, no vertebral tenderness Extremities: no calf tenderness, normal capillary refill Neurologic/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: 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 as tested, no motor/sensory deficits, alert, normal mood/affect, oriented x 3 Skin: normal color, warm/dry Lymphatic: no adenopathy Assessment/Plan Assessment/Plan Admission Status: Inpatient Order (span 2 midnights) Reason for Inpatient Admission: post op care (1) Osteoarthritis of left knee Status: Chronic Assessment & Plan: s/p Left total knee, managed by Dr Meredith (2) Non-insulin dependent type 2 diabetes mellitus Status: Chronic Assessment & Plan: - A1c pending, SSI A added, holding metformin at this time (3) COPD (chronic obstructive pulmonary disease) Status: Chronic Assessment & Plan: - MAT protocol Qualifiers: (4) 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 Status: Chronic (5) Obesity, morbid, BMI 40.0-49.9 Status: Chronic (6) DVT prophylaxis Status: Acute Assessment & Plan: Lovenox per Dr Meredith Clinical Quality Measures DVT/VTE Risk/Contraindication: Risk Factor Score Per Nursin RFS Level Per Nursing on Admit: 4+=Very High Copy Copies To 1: NICKY ESPINO MD, HOLLY R MD Jul 15, 2018 22:20
[2018-07-16] VITALS: BP 114/62
[2018-07-16] MEDS: NS IV 1000 ML 1,000 ML IV SCH ×2 (01:29→09:48)
[2018-07-16 04:37] VITALS: BP 120/63
[2018-07-16] MEDS: inSUlin ASPART (NovoLOG) 1 UNIT/0.01 ML (CHARGE PER UNIT) SC SCH ×4 (06:06→21:01)
[2018-07-16] MEDS: PANTOPRAZOLE 40 MG (PROTONIX) TAB PO SCH (06:22)
[2018-07-16] MEDS: MULTIVIT W/MINERALS TAB (THERAGRAN M) PO SCH (06:22)
[2018-07-16 06:42] LABS: BASOPHILS % (AUTO) 0 % (0-10); EOSINOPHILS # (AUTO) 0.1 10^3/uL (0.0-0.3); EOSINOPHILS % (AUTO) 1 % (0-10); HEMATOCRIT 32 % (35-52); HEMOGLOBIN 10.4 G/DL (11.5-16.0); LYMPHOCYTES # (AUTO) 2.1 X 10^3 (1.0-4.0); LYMPHOCYTES % (AUTO) 21 % (12-44); MEAN CORPUSCULAR HEMOGLOBIN 27 PG (25-34); MEAN CORPUSCULAR HGB CONC 32 G/DL (32-36); MEAN CORPUSCULAR VOLUME 84 FL (80-99); MEAN PLATELET VOLUME 11.9 FL (7.4-10.4); MONOCYTES # (AUTO) 0.8 X 10^3 (0.0-1.0); MONOCYTES % (AUTO) 7 % (0-12); NEUTROPHILS # (AUTO) 7.2 X 10^3 (1.8-7.8); NEUTROPHILS % (AUTO) 71 % (42-75); PLATELET COUNT 198 10^3/uL (130-400); RED BLOOD COUNT 3.85 10^6/uL (4.35-5.85); RED CELL DISTRIBUTION WIDTH 14.1 % (10.0-14.5); WHITE BLOOD COUNT 10.2 10^3/uL (4.3-11.0)
[2018-07-16 06:58] LABS: ALBUMIN 3.7 GM/DL (3.2-4.5); BILIRUBIN,TOTAL 0.7 MG/DL (0.1-1.0); CREATININE SERUM 1.03 MG/DL (0.60-1.30); POTASSIUM 4.2 MMOL/L (3.6-5.0); TOTAL PROTEIN 6.8 GM/DL (6.4-8.2)
--- NOTE | 2018-07-16 07:52 | Progress Note-Standard ---
Standard Progress Note Progress Notes/Assess & Plan Date Seen by a Provider: Jul 16, 2018 Time Seen by a Provider: 07:51 Progress/Assessment & Plan post op check no complaints radiographs--HW well positioned without fracture LLE--intact DF and PF of toes and ankle. brisk cap refill with equal pulses. sensation intact throughout s/p LTKA mobilize as able Final Diagnosis No complaints Vital Signs Date Time Temp Pulse Resp B/P (MAP) Pulse Ox O2 Delivery O2 Flow Rate FiO2 07/16/18 04:37 99.6 94 18 120/63 (82) 92 Nasal Cannula 2.00 07/16/18 00:00 99.7 103 18 114/62 (79) 95 Nasal Cannula 2.00 07/15/18 21:00 2.00 07/15/18 20:20 Nasal Cannula 2.00 07/15/18 20:03 98.8 105 18 125/82 (96) 94 Nasal Cannula 2.00 07/15/18 19:15 18 07/15/18 16:16 98.5 120 20 117/74 (88) 91 Nasal Cannula 2.00 07/15/18 16:14 Nasal Cannula 2.00 07/15/18 12:00 97.7 115 18 139/78 (98) 94 Room Air I & O 07/16/18 07:00 Intake Total 3190 ml Output Total 250 ml Balance 2940 ml Laboratory Tests Test 07/16/18 06:00 07/16/18 06:04 Range/Units White Blood Count 10.2 4.3-11.0 10^3/uL Red Blood Count 3.85 L 4.35-5.85 10^6/uL Hemoglobin 10.4 L 11.5-16.0 G/DL Hematocrit 32 L 35-52 % Mean Corpuscular Volume 84 80-99 FL Mean Corpuscular Hemoglobin 27 25-34 PG Mean Corpuscular Hemoglobin Concent 32 32-36 G/DL Red Cell Distribution Width 14.1 10.0-14.5 % Platelet Count 198 130-400 10^3/uL Mean Platelet Volume 11.9 H 7.4-10.4 FL Neutrophils (%) (Auto) 71 42-75 % Lymphocytes (%) (Auto) 21 12-44 % Monocytes (%) (Auto) 7 0-12 % Eosinophils (%) (Auto) 1 0-10 % Basophils (%) (Auto) 0 0-10 % Neutrophils # (Auto) 7.2 1.8-7.8 X 10^3 Lymphocytes # (Auto) 2.1 1.0-4.0 X 10^3 Monocytes # (Auto) 0.8 0.0-1.0 X 10^3 Eosinophils # (Auto) 0.1 0.0-0.3 10^3/uL Basophils # (Auto) 0.0 0.0-0.1 10^3/uL Sodium Level 137 135-145 MMOL/L Potassium Level 4.2 3.6-5.0 MMOL/L Chloride Level 103 98-107 MMOL/L Carbon Dioxide Level 24 21-32 MMOL/L Anion Gap 10 5-14 MMOL/L Blood Urea Nitrogen 18 7-18 MG/DL Creatinine 1.03 0.60-1.30 MG/DL Estimat Glomerular Filtration Rate 56 BUN/Creatinine Ratio 17 Glucose Level 128 H 70-105 MG/DL Calcium Level 9.0 8.5-10.1 MG/DL Corrected Calcium 9.2 8.5-10.1 MG/DL Total Bilirubin 0.7 0.1-1.0 MG/DL Aspartate Amino Transf (AST/SGOT) 27 5-34 U/L Alanine Aminotransferase (ALT/SGPT) 35 0-55 U/L Alkaline Phosphatase 76 40-136 U/L Total Protein 6.8 6.4-8.2 GM/DL Albumin 3.7 3.2-4.5 GM/DL Glucometer 124 H 70-110 MG/DL LLE--dressing intact. NVI distally. No calf tenderness. s/p LTKA PT/OT KISHA BALDWIN MD Jul 16, 2018 07:52
[2018-07-16 08:00] VITALS: BP 135/88
[2018-07-16] MEDS ORDERED: ENOXAPARIN 30 MG/0.3 ML (LOVENOX) SYR SC SCH (08:00)
[2018-07-16] MEDS ORDERED: NON-FORMULARY MEDICATION 1 EA EA (Fluoxetine HCl 40 MG) PO SCH (09:00)
[2018-07-16] MEDS: ASPIRIN E.C. 81 MG (ECOTRIN) TAB PO SCH (09:41)
[2018-07-16] MEDS: SENNA W/DOCUSATE (SENOKOT S) TABLET PO SCH ×2 (09:41→21:11)
[2018-07-16] MEDS: FLUoxetine HCL 20 MG (PROzac) CAP PO SCH (09:41)
[2018-07-16] MEDS: ENOXAPARIN 40 MG/0.4 ML (LOVENOX) SYR SC SCH ×2 (09:42→21:11)
[2018-07-16] MEDS: oxyCODONE/APAP 5/325MG (PERCOCET 5) TABLET PO PRN ×4 (09:44→21:14)
--- NOTE | 2018-07-16 10:30 | Physical Therapy Daily Note ---
PT Daily Note-Current Subjective Patient yells in pain with minimal exercises. Pain Numeric Pain Scale: 7 Location: Left Location Body Site: Knee Pain Description: Acute Comment: CAT BREEDER and pain pills Mental Status Patient Orientation: Normal For Age Attachments: Polar Pack, IV Transfers Functional [place] Measure 0=Not Assessed/NA 4=Minimal Assistance 1=Total Assistance 5=Supervision or Setup 2=Maximal Assistance 6=Modified [place] 3=Moderate Assistance 7=Complete IndependenceIRFPAI Quality Coding Scale 6 Independent with activity with or without an assistive device 5 Patient requires set up or clean up by helper. Patient completes activity by themselves 4 Supervision or touching assist (CGA). [place] provide cues , steadying assist 3 The helper provides less than half the effort to complete the activity 2 The helper provides more than half the effort to complete the activity 1 Dependent. The helper does all the effort to complete an activity 7 Patient refused to complete or attempt activity 9 The patient did not perform the activity before the current illness or injury 88 Not attempted due to Medical conditions or safety concerns Transfers (B, C, W/C) (FIM): 5 Scootin Rollin Supine to/from Sit: 5 Weight Bearing Left Lower Extremity: Left Weight Bearing/Tolerated Gait Training Gait (FIM): 2 Distance (FIM): 7=750-19 ft Distance: 50' Gait Level of Assist: 4 Gait Persons Needed: 1 Gait Assistive Device: FWW requires skilled verbal instruction for body placement in FWW/patient self limits with all exercises and mobility. Exercises Supine Ex: Ankle pumps, Quad Set, Heel Slides, Straight leg raise Supine Reps: 10 (patient resists all AAROM) Seated Therapy Exercises: Ankle pumps, Long arc quads Seated Reps: 15 Treatments CPM 0-70 degrees with polar pack in place Assessment Patient is very agitated with PT and states, "You push me to do what I don't want to do. You and I will have a problem." PT educated patient on importance of exercises and mobility to ensure full healing, recovery and benefit from this elective surgery. PT to increase activity as patient tolerates. PT Short Term Goals Short Term Goals Time Frame: Jul 22, 2018 Transfers (B,C,W/C) (FIM): 4 Gait (FIM): 2 Gait Distance Comment: 50' Gait Level of Assist: 4 Gait Assistive Device: FWW PT Plan Treatment/Plan Treatment Plan: Continue Plan of Care Treatment Plan: Bed Mobility, Concurrent Therapy, Education, Functional Activity Main, Functional Strength, Gait, Safety, Therapeutic Exercise, Transfers Treatment Duration: Jul 22, 2018 Frequency: 11 times per week Estimated Hrs Per Day: .25 hour per day (15-30') Patient and/or Family Agrees t: Yes Time/GCodes Time In: 936 Time Out: 1000 Total Billed Treatment Time: 24 Total Billed Treatment 1 visit EX 11 min GT 13 min JIMMY ANNE PT Jul 16, 2018 10:30
[2018-07-16 12:00] VITALS: BP 125/76
--- NOTE | 2018-07-16 13:46 | Physical Therapy Daily Note ---
PT Daily Note-Current Subjective Patient was awake in bed and agreed to therapy. Pt reported she was feeling sore after the visit this morning. Pain Numeric Pain Scale: 5-Moderate Pain Location: Left Location Body Site: Knee Mental Status Patient Orientation: Normal For Age Transfers Functional [place] Measure 0=Not Assessed/NA 4=Minimal Assistance 1=Total Assistance 5=Supervision or Setup 2=Maximal Assistance 6=Modified [place] 3=Moderate Assistance 7=Complete IndependenceIRFPAI Quality Coding Scale 6 Independent with activity with or without an assistive device 5 Patient requires set up or clean up by helper. Patient completes activity by themselves 4 Supervision or touching assist (CGA). [place] provide cues , steadying assist 3 The helper provides less than half the effort to complete the activity 2 The helper provides more than half the effort to complete the activity 1 Dependent. The helper does all the effort to complete an activity 7 Patient refused to complete or attempt activity 9 The patient did not perform the activity before the current illness or injury 88 Not attempted due to Medical conditions or safety concerns Transfers (B, C, W/C) (FIM): 5 Scootin Rollin Supine to/from Sit: 5 Sit to/from Stand: 5 Bed to/from Chair: 5 Weight Bearing Left Lower Extremity: Left Weight Bearing/Tolerated Gait Training Gait (FIM): 2 Distance (FIM): 1=593-35 ft Distance: 70'x2 Gait Level of Assist: 5 Gait Assistive Device: FWW minimal weight bearing left LE by choice Exercises Seated Therapy Exercises: Long arc quads, Hamstring Curls Seated Reps: 10 Assessment Pt tolerated exercises but limited overall ROM due to pain and resistance by patient to increase ROM. Pt required cueing throughout treatment to ensure she was following through with directions. She was able to ambulate 70 feet with a standard walker with CGA throughout treatment. PT Short Term Goals Short Term Goals Time Frame: Jul 22, 2018 Transfers (B,C,W/C) (FIM): 4 Gait (FIM): 2 Gait Distance Comment: 50' Gait Level of Assist: 4 Gait Assistive Device: FWW PT Plan Treatment/Plan Treatment Plan: Continue Plan of Care Treatment Plan: Bed Mobility, Concurrent Therapy, Education, Functional Activity Main, Functional Strength, Gait, Safety, Therapeutic Exercise, Transfers Treatment Duration: Jul 22, 2018 Frequency: 11 times per week Estimated Hrs Per Day: .5 hour per day Patient and/or Family Agrees t: Yes Time/GCodes Time In: 1320 Time Out: 1335 Total Billed Treatment Time: 15 Total Billed Treatment 1 visit FA 15 mins JIMMY ANNE PT Jul 16, 2018 13:46
--- NOTE | 2018-07-16 14:54 | Occupational Therapy Eval ---
OT Evaluation-General/PLF Medical Diagnosis Admission Date Jul 15, 2018 at 06:08 Medical Diagnosis: left TKA Onset Date: Jul 15, 2018 Therapy Diagnosis Therapy Diagnosis: decr self care, decr funct mobility, weakness, decr act nikolas , decr safety Height/Weight Height (Feet): 5 Height (Inches): 9.00 Weight (Pounds): 278 Weight (Ounces): 0.0 Precautions Precautions/Isolations: Fall Prevention, Standard Precautions Safety Interventions: Reorient-PRN Weight Bear Status Weight Bearing Restriction: Weight Bearing/Tolerated Location Restriction: L LE Referral Physician: Boy Shepherd APRN Referral Reason: Evaluation/Treatment Medical History Pertinent Medical History: COPD, DM Additional Medical History Uses CPAP at night. Depression, bipolar. Sleep apnea. back pain. Cardiomegaly. Morbid obesity Current History Elective L total knee Reviewed History: Yes Social History Home: Single Level Current Living Status: Significant Other Entry Into Home: Stairs With Railing Steps Into Home: 3 ADL-Prior Level of Function Functional [place] Measure 0=Not Assessed/NA 4=Minimal Assistance 1=Total Assistance 5=Supervision or Setup 2=Maximal Assistance 6=Modified [place] 3=Moderate Assistance 7=Complete [place] ADL PLOF Comments Pt and family reported that she was previously able to manage her basic self care needs. She did the cooking and her SO did the cleaning, laundry. She still drives and is not employed. Self Care DME/Equipment: Tub/Shower OT Current Status Subjective Pt seen in room, in bed, eyes closed. Had difficulty staying awake to complete eval. Pt reported pain 8/10 above L knee but did not describe it Appearance Very sleepy. Awake to answer a question, then back asleep Current Hand Dominance: Right Upper Extremity ROM Grossly WFL bilat Upper Extremity Strength Grossly 4/5 but had difficulty following instructions for muscle testing ADL-Treatment ADL-Current Family reported that she dressed herself today, including putting on socks. They also said that she took herself to the bathroom, using FWW, and she said that she didn't have any problems with that. She was able to walk 70 feet twice with SBA this afternoon with PT. Family reported that she will be going to a skilled unit for continued therapy. Functional [place] Measure 0=Not Assessed/NA 4=Minimal Assistance 1=Total Assistance 5=Supervision or Setup 2=Maximal Assistance 6=Modified [place] 3=Moderate Assistance 7=Complete IndependenceIRFPAI Quality Coding Scale 6 Independent with activity with or without an assistive device 5 Patient requires set up or clean up by helper. Patient completes activity by themselves 4 Supervision or touching assist (CGA). [place] provide cues , steadying assist 3 The helper provides less than half the effort to complete the activity 2 The helper provides more than half the effort to complete the activity 1 Dependent. The helper does all the effort to complete an activity 7 Patient refused to complete or attempt activity 9 The patient did not perform the activity before the current illness or injury 88 Not attempted due to Medical conditions or safety concerns Education OT Patient Education: Purpose of tx/functional activities, Rehab process Teaching Recipient: Patient, Family Teaching Methods: Discussion Response to Teaching: Verbalize Understanding, Reinforcement Needed OT Short Term Goals Short Term Goals Transfers (B,C,W/C) (FIM): 4 OT Intensive Care Ambulance Paramedic Goals Assisted Goals Time Frame: Jul 18, 2018 Bathing(FIM): 5 Upper Body Dressing(FIM): 5 Lower Body Dressing(FIM): 5 Toileting(FIM): 6 Toilet/Commode Transfer(FIM): 6 Additional Goals: 1-Demonstrate ADL Tasks, 2-Verbalize Understanding, 3- ImproveStrength/Main 1=Demonstrate adherence to instructed precautions during ADL tasks. 2=Patient will verbalize/demonstrate understanding of assistive devices/ modifications for ADL. 3=Patient will improve strength/tolerance for activity to enable patient to perform ADL's. OT Education/Plan Problem List/Assessment Assessment: Decreased Activ Tolerance, Decreased Safety Aware, Decreased UE Strength, Dependent Transfers, Impaired Self-Care Skills Pt would benefit from skilled OT to increase her independence in basic slef care to allow her to safely return home after TKA Discharge Recommendations Plan/Recommendations: Continue POC Treatment Plan/Plan of Care Treatment,Training & Education: Yes Patient would benefit from OT for education, treatment and training to promote independence in ADL's, mobility, safety and/or upper extremity function for ADL' s. Plan of Care: ADL Retraining, Functional Mobility, UE Funct Exercise/Act, UE Neuromus Re-Ed/Coord Treatment Duration: Jul 18, 2018 Frequency: 5 times per week Estimated Hrs Per Day: .5 hour per day Agreement: Yes Rehab Potential: Fair Time/GCodes Start Time: 14:35 Stop Time: 14:45 Total Time Billed (hr/min): 10 Billed Treatment Time visit, 10 minutes evaluation moderate intensity HAWK MONTESINOS OT Jul 16, 2018 14:54
[2018-07-16 16:00] VITALS: BP 123/66
--- NOTE | 2018-07-16 18:37 | Anesthesia-General Post-Op ---
General Patient Condition Mental Status/LOC: Same as Preop Cardiovascular: Satisfactory Nausea/Vomiting: Absent Respiratory: Satisfactory Pain: Controlled Complications: Absent Post Op Complications Complications None Follow Up Care/Instructions Patient Instructions None needed. Anesthesia/Patient Condition Patient Condition Patient was seen this morning and she was doing well, no complaints, stable vital signs, no apparent adverse anesthesia problems. CHLOE TOMLINSON DO Jul 16, 2018 18:37
[2018-07-16 20:00] VITALS: BP 139/84
--- NOTE | 2018-07-16 21:12 | Progress Note (SOAP) ---
Subjective Subjective/Events-last exam Patient feeling well this AM. States that she slept alot yesterday due to the pain medications. States that she did well with PT and walked with walker. Tolerating PO diet. States that pain is well controlled Review of Systems Date Seen by Provider: Jul 16, 2018 Time Seen by Provider: 10:05 Pulmonary: Dyspnea; No Cough Cardiovascular: Edema; No: Chest Pain, Palpitations, Orthopnea Gastrointestinal: Nausea; No: Vomiting Neurological: Incoordination Objective Exam Last Set of Vital Signs Vital Signs Date Time Temp Pulse Resp B/P (MAP) Pulse Ox O2 Delivery O2 Flow Rate FiO2 07/16/18 16:00 99.2 101 12 123/66 (85) 91 Nasal Cannula 2.00 Capillary Refill : I&O Intake and Output 07/16/18 00:00 Intake Total 1990 ml Output Total 0 ml Balance 1990 ml Intake Oral 940 ml IV Total 1050 ml Output Urine Total 0 ml Daily Weight Change No General: Alert, Oriented X3, Cooperative, No Acute Distress HEENT: Mucous Memb Moist/[place] Neck: Supple, No Thyromegaly Lungs: Clear to Auscultation, Normal Air Movement Heart: Regular Rate, No Murmurs Abdomen: Normal Bowel Sounds, Soft, No Tenderness, No Masses Extremities: Other (Left leg in compression) Psych/Mental Status: Mental Status NL, Mood NL Results/Procedures Lab Laboratory Tests 07/16/18 06:00: White Blood Count 10.2, Red Blood Count 3.85L, Hemoglobin 10.4L, Hematocrit 32L , Mean Corpuscular Volume 84, Mean Corpuscular Hemoglobin 27, Mean Corpuscular Hemoglobin Concent 32, Red Cell Distribution Width 14.1, Platelet Count 198, Mean Platelet Volume 11.9H, Neutrophils (%) (Auto) 71, Lymphocytes (%) (Auto) 21 , Monocytes (%) (Auto) 7, Eosinophils (%) (Auto) 1, Basophils (%) (Auto) 0, Neutrophils # (Auto) 7.2, Lymphocytes # (Auto) 2.1, Monocytes # (Auto) 0.8, Eosinophils # (Auto) 0.1, Basophils # (Auto) 0.0, Sodium Level 137, Potassium Level 4.2, Chloride Level 103, Carbon Dioxide Level 24, Anion Gap 10, Blood Urea Nitrogen 18, Creatinine 1.03, Estimat Glomerular Filtration Rate 56, BUN/ Creatinine Ratio 17, Glucose Level 128H, Calcium Level 9.0, Corrected Calcium 9.2, Total Bilirubin 0.7, Aspartate Amino Transf (AST/SGOT) 27, Alanine Aminotransferase (ALT/SGPT) 35, Alkaline Phosphatase 76, Total Protein 6.8, Albumin 3.7 07/16/18 06:04: Glucometer 124H 07/16/18 11:16: Glucometer 131H 07/16/18 16:13: Glucometer 129H 07/16/18 20:43: Glucometer 158H Assessment/Plan Assessment/Plan (1) Osteoarthritis of left knee Status: Chronic Assessment & Plan: s/p Left total knee, managed by Dr Meredith, POD#1, plan for home with home health on Friday (2) Non-insulin dependent type 2 diabetes mellitus Status: Chronic Assessment & Plan: - A1c pending, SSI A added, holding metformin at this time 07/16: A1c pending, blood sugars have well controlled (3) COPD (chronic obstructive pulmonary disease) Status: Chronic Assessment & Plan: - MAT protocol, Aerobike Qualifiers: (4) 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 Status: Chronic (5) Obesity, morbid, BMI 40.0-49.9 Status: Chronic (6) DVT prophylaxis Status: Acute Assessment & Plan: Lovenox per Dr Meredith Clinical Quality Measures DVT/VTE Risk/Contraindication: Risk Factor Score Per Nursin RFS Level Per Nursing on Admit: 4+=Very High NICKY THOMPSON MD Jul 16, 2018 21:12
[2018-07-17 00:31] VITALS: BP 167/75
[2018-07-17] MEDS: oxyCODONE/APAP 5/325MG (PERCOCET 5) TABLET PO PRN ×6 (01:24→20:01)
[2018-07-17 04:43] VITALS: BP 139/79
[2018-07-17 05:11] LABS: HEMOGLOBIN 9.6 G/DL (11.5-16.0)
[2018-07-17] MEDS: MULTIVIT W/MINERALS TAB (THERAGRAN M) PO SCH (05:57)
[2018-07-17] MEDS: PANTOPRAZOLE 40 MG (PROTONIX) TAB PO SCH (05:57)
[2018-07-17] MEDS: inSUlin ASPART (NovoLOG) 1 UNIT/0.01 ML (CHARGE PER UNIT) SC SCH ×4 (06:17→20:02)
--- NOTE | 2018-07-17 07:04 | Progress Note-Standard ---
Standard Progress Note Progress Notes/Assess & Plan Date Seen by a Provider: Jul 17, 2018 Time Seen by a Provider: 07:02 Progress/Assessment & Plan post op check no complaints radiographs--HW well positioned without fracture LLE--intact DF and PF of toes and ankle. brisk cap refill with equal pulses. sensation intact throughout s/p LTKA mobilize as able Final Diagnosis no complaints Vital Signs Date Time Temp Pulse Resp B/P (MAP) Pulse Ox O2 Delivery O2 Flow Rate FiO2 07/17/18 04:43 98.6 86 16 139/79 (99) 96 Nasal Cannula 2.00 07/17/18 00:31 97.6 98 16 167/75 (105) 94 Nasal Cannula 2.00 07/16/18 22:57 Nasal Cannula 2.00 07/16/18 21:00 2.00 07/16/18 20:00 99.8 100 16 139/84 (102) 93 Nasal Cannula 2.00 07/16/18 16:00 99.2 101 12 123/66 (85) 91 Nasal Cannula 2.00 07/16/18 12:00 98.9 98 18 125/76 (92) 96 Nasal Cannula 2.00 07/16/18 08:00 100.0 94 18 135/88 (104) 94 Nasal Cannula 2.00 I & O 07/17/18 07:00 Intake Total 2120 ml Output Total 600 ml Balance 1520 ml Laboratory Tests Test 07/16/18 11:16 07/16/18 16:13 07/16/18 20:43 07/17/18 04:20 Range/Units Glucometer 131 H 129 H 158 H 70-110 MG/DL Hemoglobin 9.6 L 11.5-16.0 G/DL Hematocrit 29 L 35-52 % Test 07/17/18 06:08 Range/Units Glucometer 155 H 70-110 MG/DL LLE--incision clean and dry. NO calf tenderness. Neg Alfonso's s/p LTKA PT/OT DC to SNF tomorrow KISHA BALDWIN MD Jul 17, 2018 07:03
--- NOTE | 2018-07-17 07:21 | DISCHARGE SUMMARY ---
DATE OF SERVICE: DIAGNOSES: 1. Left knee primary osteoarthritis. 2. Chronic obstructive pulmonary disease. 3. Diabetes. 4. Depression. 5. Hypercholesterolemia. 6. Back pain. 7. Sleep apnea. 8. Bipolar disorder. 9. Allergic rhinitis. 10. Cardiomegaly. 11. Morbid obesity. PROCEDURE: Left total knee arthroplasty. SUMMARY: The patient is a 57-year-old female who was admitted the day of left total knee arthroplasty, which she underwent without complications. Postoperatively, she did well. At the time of discharge, her wound was clean and dry. She was advancing well with physical therapy. She had no calf tenderness. Negative Homans sign. She was tolerating her diet well and tolerating her pain with oral pain medication. CONDITION AT DISCHARGE: Good. DISCHARGE DIET: Regular. FOLLOWUP: Followup is in three weeks. DISCHARGE DISPOSITION: Transferred to intermediate facility for continued physical and occupational therapy, which will consist of weightbearing as tolerated with range of motion of the left lower extremity. DISCHARGE MEDICATIONS: Home medications, Percocet and aspirin. Job ID: [id number] DocumentID: [id number] Dictated Date: 07/17/2018 07:06:02 Tax Adjuster Date: 07/17/2018 07:20:57 Dictated By: KISHA BALDWIN MD
[2018-07-17 08:00] VITALS: BP 151/65
[2018-07-17] MEDS: SENNA W/DOCUSATE (SENOKOT S) TABLET PO SCH ×2 (09:45→20:01)
[2018-07-17] MEDS: ENOXAPARIN 40 MG/0.4 ML (LOVENOX) SYR SC SCH ×2 (09:45→20:01)
[2018-07-17] MEDS: ASPIRIN E.C. 81 MG (ECOTRIN) TAB PO SCH (09:45)
[2018-07-17] MEDS: FLUoxetine HCL 20 MG (PROzac) CAP PO SCH (09:45)
--- NOTE | 2018-07-17 10:09 | Physical Therapy Daily Note ---
PT Daily Note-Current Subjective Pt. was awake in bed and agreed to therapy. Pain Numeric Pain Scale: 5-Moderate Pain Location: Left Location Body Site: Knee Mental Status Patient Orientation: [place] Transfers Functional [place] Measure 0=Not Assessed/NA 4=Minimal Assistance 1=Total Assistance 5=Supervision or Setup 2=Maximal Assistance 6=Modified [place] 3=Moderate Assistance 7=Complete IndependenceIRFPAI Quality Coding Scale 6 Independent with activity with or without an assistive device 5 Patient requires set up or clean up by helper. Patient completes activity by themselves 4 Supervision or touching assist (CGA). [place] provide cues , steadying assist 3 The helper provides less than half the effort to complete the activity 2 The helper provides more than half the effort to complete the activity 1 Dependent. The helper does all the effort to complete an activity 7 Patient refused to complete or attempt activity 9 The patient did not perform the activity before the current illness or injury 88 Not attempted due to Medical conditions or safety concerns Scootin Supine to/from Sit: 6 Sit to/from Stand: 6 Weight Bearing Left Lower Extremity: Left Weight Bearing/Tolerated Gait Training Gait (FIM): 0 Distance (FIM): 0=does not occure Gait Assistive Device: FWW refused to take steps due to pain and nausea Exercises Seated Therapy Exercises: Ankle pumps (Patient was unable refused to walk after reporting she felt groggy. ), Long arc quads, Hamstring Curls Standing: Weight shifts Assessment Pt refused to walk after reporting she was feeling tired from pain medication. Pt is self limiting during exercises and states that her pain is too much. She performs exercises but limits her ROM and must be assisted by therapist to complete range. Patient is not progressing with treatment plan due to noncompliance with protocol. PT Short Term Goals Short Term Goals Time Frame: Jul 22, 2018 Transfers (B,C,W/C) (FIM): 4 Gait (FIM): 2 Gait Distance Comment: 50' Gait Level of Assist: 4 Gait Assistive Device: FWW PT Plan Treatment/Plan Treatment Plan: Continue Plan of Care Treatment Plan: Bed Mobility, Concurrent Therapy, Education, Functional Activity Main, Functional Strength, Gait, Safety, Therapeutic Exercise, Transfers Treatment Duration: Jul 22, 2018 Frequency: 11 times per week Estimated Hrs Per Day: .5 hour per day Patient and/or Family Agrees t: Yes Time/GCodes Time In: 910 Time Out: 933 Total Billed Treatment Time: 23 Total Billed Treatment 1 visit Ex x 2 - 23 mins JIMMY ANNE PT Jul 17, 2018 10:09
[2018-07-17 12:00] VITALS: BP 126/65
--- NOTE | 2018-07-17 14:07 | Physical Therapy Daily Note ---
PT Daily Note-Current Subjective Pt was awake in bed when PT arrived. Pt reported she just got back to bed but agreed to therapy. Pain Numeric Pain Scale: 8 Location: Left Location Body Site: Knee Mental Status Patient Orientation: [place] Transfers Functional [place] Measure 0=Not Assessed/NA 4=Minimal Assistance 1=Total Assistance 5=Supervision or Setup 2=Maximal Assistance 6=Modified [place] 3=Moderate Assistance 7=Complete IndependenceIRFPAI Quality Coding Scale 6 Independent with activity with or without an assistive device 5 Patient requires set up or clean up by helper. Patient completes activity by themselves 4 Supervision or touching assist (CGA). [place] provide cues , steadying assist 3 The helper provides less than half the effort to complete the activity 2 The helper provides more than half the effort to complete the activity 1 Dependent. The helper does all the effort to complete an activity 7 Patient refused to complete or attempt activity 9 The patient did not perform the activity before the current illness or injury 88 Not attempted due to Medical conditions or safety concerns Transfers (B, C, W/C) (FIM): 6 Scootin Rollin Supine to/from Sit: 6 Sit to/from Stand: 6 Weight Bearing Left Lower Extremity: Left Weight Bearing/Tolerated Gait Training Gait (FIM): 5 Distance (FIM): 0=458-95 ft Distance: 100' Gait Level of Assist: 5 Gait Persons Needed: 1 Gait Assistive Device: FWW Exercises Supine Ex: Quad Set, Heel Slides, Straight leg raise Supine Reps: 10 Seated Therapy Exercises: Long arc quads, Hamstring Curls Seated Reps: 10 Assessment Patient has poor follow through on exercises. Patient states she is in too much pain to perform exercises through full available range of motion. Patient ambulated 100 feet with FWW but lacks complete extension by 15 degrees while walking. Patient continues to self limit therapy and reports she is tired from her medication. PT Short Term Goals Short Term Goals Time Frame: Jul 22, 2018 Transfers (B,C,W/C) (FIM): 4 Gait (FIM): 2 Gait Distance Comment: 50' Gait Level of Assist: 4 Gait Assistive Device: FWW PT Plan Treatment/Plan Treatment Plan: Continue Plan of Care Treatment Plan: Bed Mobility, Concurrent Therapy, Education, Functional Activity Main, Functional Strength, Gait, Safety, Therapeutic Exercise, Transfers Treatment Duration: Jul 22, 2018 Frequency: 11 times per week Estimated Hrs Per Day: .5 hour per day Patient and/or Family Agrees t: Yes Time/GCodes Time In: 1340 Time Out: 1353 Total Billed Treatment Time: 13 Total Billed Treatment 1 visit FA 13 mins JIMMY ANNE PT Jul 17, 2018 14:07
[2018-07-17 16:05] VITALS: BP 143/65
--- NOTE | 2018-07-17 16:25 | Progress Note (SOAP) ---
Subjective Subjective/Events-last exam Patient states that she is having more pain today. States that she is not doing well with PT. Tolerating PO diet. Spoke with PT and patient is not participating well with PT and would not be a good candidate for IRF Review of Systems Date Seen by Provider: Jul 17, 2018 Time Seen by Provider: 11:10 Pulmonary: Cough Cardiovascular: No: Chest Pain, Palpitations Musculoskeletal: leg pain Neurological: Weakness Objective Exam Last Set of Vital Signs Vital Signs Date Time Temp Pulse Resp B/P (MAP) Pulse Ox O2 Delivery O2 Flow Rate FiO2 07/17/18 12:00 98.6 109 18 126/65 (85) 91 Nasal Cannula 2.50 Capillary Refill : I&O Intake and Output 07/17/18 00:00 Intake Total 3320 ml Output Total 850 ml Balance 2470 ml Intake Oral 1360 ml IV Total 1960 ml Output Urine Total 850 ml Bladder Scan Volume Amount 276 ml # Voids 2 General: Alert, Oriented X3, Cooperative, No Acute Distress HEENT: Mucous Memb Moist/[place] Lungs: Clear to Auscultation, Normal Air Movement Heart: Regular Rate, No Murmurs Abdomen: Normal Bowel Sounds, Soft, No Tenderness, No Masses Extremities: Other (Toribio hose present on LE bilaterally) Results/Procedures Lab Laboratory Tests 07/16/18 20:43: Glucometer 158H 07/17/18 04:20: Hemoglobin 9.6L, Hematocrit 29L 07/17/18 06:08: Glucometer 155H 07/17/18 11:16: Glucometer 139H 07/17/18 16:11: Glucometer 196H Assessment/Plan Assessment/Plan (1) Osteoarthritis of left knee Status: Chronic Assessment & Plan: s/p Left total knee, managed by Dr Meredith, POD#2, plan for SNF d/c tomorrow, patient will need 30 days or less (2) Non-insulin dependent type 2 diabetes mellitus Status: Chronic Assessment & Plan: - A1c pending, SSI A added, holding metformin at this time 07/16: A1c pending, blood sugars have well controlled 07/17: A1c 6.4, Will continue metformin at d/c (3) COPD (chronic obstructive pulmonary disease) Status: Chronic Assessment & Plan: - MAT protocol, Aerobike Qualifiers: (4) 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 Status: Chronic (5) Obesity, morbid, BMI 40.0-49.9 Status: Chronic (6) DVT prophylaxis Status: Acute Assessment & Plan: Lovenox per Dr Meredith Clinical Quality Measures DVT/VTE Risk/Contraindication: Risk Factor Score Per Nursin RFS Level Per Nursing on Admit: 4+=Very High NICKY THOMPSON MD Jul 17, 2018 16:25
[2018-07-17 20:02] VITALS: BP 137/65
[2018-07-18] VITALS: BP 120/56
[2018-07-18 04:00] VITALS: BP 173/79
[2018-07-18] MEDS: oxyCODONE/APAP 5/325MG (PERCOCET 5) TABLET PO PRN ×2 (04:46→08:17)
[2018-07-18] MEDS: PANTOPRAZOLE 40 MG (PROTONIX) TAB PO SCH (05:45)
[2018-07-18] MEDS: inSUlin ASPART (NovoLOG) 1 UNIT/0.01 ML (CHARGE PER UNIT) SC SCH (05:45)
--- NOTE | 2018-07-18 06:54 | Discharge Inst-Skilled Nursing ---
NICKY ESPINO MD 07/17/18 4:28pm: Discharge Inst-Skilled NF Patient Instructions Patient Problems: Left Osteoarthritis s/p TK Non Insulin dependent DM HTN Morbid Obesity 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 Goal: - Strength and coordination - regain independence Consult/Follow Up/Orders Follow up appt.: Jenny Gerard will see you at [facility], f.u with Kenzie at discharge Skilled NF Admit to: [facility] Certifications SNF I certify that SNF services are required to be given on an inpatient basis because of the above named patient's need for intermediate care on a continuing basis for the conditions(s) for which he/she was receiving inpatient hospital services prior to his/her transfer to the SNF. Assisted Facility Order: Nursing Services, Can Piler-Evaluate & Treat, Physical Therapy-Evaluate & Treat, Wound Care-Eval/Treat Discharge Diet: ADA Diet Daily Activity as Tolerated: Yes New & Resume Previous Orders New & Resume Previous Orders - Expect 30 days or less of care Discharge Medications New, Converted or Re-Newed RX: RX on Chart New Medications: Oxycodone HCl/Acetaminophen (Percocet 5-325 mg Tablet) 1 Each Tablet 1 EACH PO Q4H PRN for PAIN-MODERATE MDD 6, #60 TAB Continued Medications: Albuterol Sulfate (Proair Hfa) 8.5 Gm Hfa.aer.ad 2 PUFF IH Q4H PRN for WHEEZING, GM Aspirin (Aspirin) 325 Mg Tablet 650 MG PO DAILY, TAB take 2 (325mg) tabs Fluoxetine HCl (Fluoxetine HCl) 40 Mg Capsule 40 MG PO DAILY Fluticasone Propionate (Flonase Allergy Relief) 9.9 Ml [place].susp 1 SPRAY NS BID, SPRAY Fluticasone/Vilanterol (Breo Ellipta 200-25 Mcg INH) 1 Each Blst.w.dev 1 EACH IH DAILY Metformin HCl (Metformin HCl) 1,000 Mg Tablet 1000 MG PO BID, TAB Omeprazole (Omeprazole) 40 Mg Capsule. 40 MG PO DAILY, CAP Nicky Espino Jul 17, 2018 16:26 PATRIC MONTERO MD 07/18/18 6:54am: Discharge Inst-Skilled NF Consult/Follow Up/Orders Skilled NF Admit to: [facility] Order: Physical Therapy-Evaluate & Treat Discharge Diet: ADA Diet Daily Activity as Tolerated: No (Per Ortho recommendations) NICKY ESPINO MD Jul 17, 2018 4:28 pm PATRIC MONTERO MD Jul 18, 2018 6:54 am
[2018-07-18 07:33] LABS: HEMOGLOBIN 9.6 G/DL (11.5-16.0)
[2018-07-18 08:04] VITALS: BP 125/63
[2018-07-18] MEDS: ASPIRIN E.C. 81 MG (ECOTRIN) TAB PO SCH (08:14)
[2018-07-18] MEDS: MULTIVIT W/MINERALS TAB (THERAGRAN M) PO SCH (08:14)
[2018-07-18] MEDS: SENNA W/DOCUSATE (SENOKOT S) TABLET PO SCH (08:15)
[2018-07-18] MEDS: ENOXAPARIN 40 MG/0.4 ML (LOVENOX) SYR SC SCH (08:15)
[2018-07-18] MEDS: FLUoxetine HCL 20 MG (PROzac) CAP PO SCH (08:15)
--- NOTE | 2018-07-18 08:59 | Progress Note-Standard ---
Standard Progress Note Progress Notes/Assess & Plan Date Seen by a Provider: Jul 18, 2018 Time Seen by a Provider: 08:59 Progress/Assessment & Plan post op check no complaints radiographs--HW well positioned without fracture LLE--intact DF and PF of toes and ankle. brisk cap refill with equal pulses. sensation intact throughout s/p LTKA mobilize as able Final Diagnosis no complaints Vital Signs Date Time Temp Pulse Resp B/P (MAP) Pulse Ox O2 Delivery O2 Flow Rate FiO2 07/18/18 08:04 96.9 91 18 125/63 (83) 97 Nasal Cannula 2.00 07/18/18 04:00 99.8 89 16 173/79 (110) 95 Nasal Cannula 2.00 07/18/18 00:00 98.0 92 20 120/56 (77) 94 Nasal Cannula 2.00 07/17/18 22:30 98.9 07/17/18 21:00 Room Air 07/17/18 20:02 100.3 98 18 137/65 (89) 92 Nasal Cannula 2.00 07/17/18 16:05 97.3 101 18 143/65 (91) 90 Nasal Cannula 2.00 07/17/18 12:00 98.6 109 18 126/65 (85) 91 Nasal Cannula 2.50 07/17/18 09:00 Room Air I & O 07/18/18 07:00 Intake Total 1010 ml Output Total 850 ml Balance 160 ml Laboratory Tests Test 07/17/18 11:16 07/17/18 16:11 07/17/18 20:37 07/18/18 05:36 Range/Units Glucometer 139 H 196 H 137 H 131 H 70-110 MG/DL Test 07/18/18 06:25 Range/Units Hemoglobin 9.6 L 11.5-16.0 G/DL Hematocrit 29 L 35-52 % ambulating with PT without complaint s/p LTKA DC to SNF today KISHA BALDWIN MD Jul 18, 2018 08:59
--- NOTE | 2018-07-18 11:37 | Physical Therapy Daily Note ---
PT Daily Note-Current Subjective Pt agreeable. Pt without complaint. Pain 7/10 (L) knee. Pt requests BR privileges. Mental Status Patient Orientation: Person, Place, Situation Transfers Functional Craig Measure 0=Not Assessed/NA 4=Minimal Assistance 1=Total Assistance 5=Supervision or Setup 2=Maximal Assistance 6=Modified Craig 3=Moderate Assistance 7=Complete IndependenceIRFPAI Quality Coding Scale 6 Independent with activity with or without an assistive device 5 Patient requires set up or clean up by helper. Patient completes activity by themselves 4 Supervision or touching assist (CGA). [place] provide cues , steadying assist 3 The helper provides less than half the effort to complete the activity 2 The helper provides more than half the effort to complete the activity 1 Dependent. The helper does all the effort to complete an activity 7 Patient refused to complete or attempt activity 9 The patient did not perform the activity before the current illness or injury 88 Not attempted due to Medical conditions or safety concerns Weight Bearing Left Lower Extremity: Left Weight Bearing/Tolerated Gait Training Gait Assistive Device: FWW Pt amb with FWW and CGA x 90ft, step to gait pattern with foot ER'd. Vc's to attempt to correct gait pattern unsuccesful Exercises Supine Ex: LE Protocol Supine Reps: 15 Treatments Pt used BR mod (I) Assessment Current Status: Fair Progress Pt mobility mod (I) bed and all transfers. Pt demonstrated (I) SLR. Pt in bed with call light and CPM set 0-80deg. Pt AROM approximately 0 -12 - 80deg. PT Short Term Goals Short Term Goals Time Frame: Jul 22, 2018 Transfers (B,C,W/C) (FIM): 4 Gait (FIM): 2 Gait Distance Comment: 50' Gait Level of Assist: 4 Gait Assistive Device: FWW PT Plan Treatment/Plan Treatment Plan: Discontinue PT Treatment Plan: Bed Mobility, Concurrent Therapy, Education, Functional Activity Main, Functional Strength, Gait, Safety, Therapeutic Exercise, Transfers Treatment Duration: Jul 22, 2018 Frequency: 11 times per week Estimated Hrs Per Day: .5 hour per day Patient and/or Family Agrees t: Yes Safety Risks/Education Pt will be discharged this date per Dr. brock to [facility]. Pt will recieve f/u PT for further rehab at [facility]. Time/GCodes Time In: 847 Time Out: 910 Total Billed Treatment Time: 23 Total Billed Treatment 1, gait, ther ex DANIEL VALVERDE CPTA Jul 18, 2018 11:37
== END 2018-07-18 10:10 | DRG 470 ==
LOC: 4TH 06:08
PROVIDERS: ADMIT Orthopaedic Surgery; ATTEND Orthopaedic Surgery
PROC: 0SRD0J9 Replacement of Left Knee Joint with Synthetic Substitute, Cemented, Open Approach (ICD-10-PCS; principal; 2018-07-15 08:00)
DX: M17.12 Unilateral primary osteoarthritis, left knee (principal); J44.9 Chronic obstructive pulmonary disease, unspecified; E11.9 Type 2 diabetes mellitus without complications; E78.00 Pure hypercholesterolemia, unspecified; Z68.41 Body mass index [BMI] 40.0-44.9, adult; M54.9 Dorsalgia, unspecified; G47.33 Obstructive sleep apnea (adult) (pediatric); F41.9 Anxiety disorder, unspecified; F31.9 Bipolar disorder, unspecified; J30.9 Allergic rhinitis, unspecified; I51.7 Cardiomegaly; E66.01 Morbid (severe) obesity due to excess calories; Z79.84 Long term (current) use of oral hypoglycemic drugs; Z87.891 Personal history of nicotine dependence; Z23 Encounter for immunization
CPT/HCPCS: 36415; 73560; 80053; 82962; 83036; 85014; 85018; 85025; 86850; 86900; 86901; 90471; 90686; 94664

== ENCOUNTER 2018-10-29 15:15 | Emergency (ER) | payer MEDICARE, MEDICAID ==
[~2018-10-29] VITALS: Ht 175.3 cm; Wt 117.9 kg
--- OUTSIDE RECORDS SUMMARY | 2018-10-29 15:40 | XMS REPORT ---
Author Author LATRELL MENDOZA Organization [facility] [place] Address [address] [place] [address] Care Team Providers Care Hall Coordinator Name Role Phone LATRELL MENDOZA Unavailable PROBLEMS Type Condition ICD9-CM Code UZL28-PY Code Onset Dates Condition Status SNOMED Code Problem 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.33 Active 61908064 Problem Cardiomegaly I51.7 Active 4631334 Problem History of arthroplasty of left knee Z96.652 Active 358746386 Problem Chronic bronchitis, unspecified chronic bronchitis type J42 Active 62162566 Problem Type 2 diabetes mellitus with hyperglycemia E11.65 Active 094859964170276 Problem 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 Active 47529035 Problem BMI 40.0-44.9, adult Z68.41 Active 590791963 Problem Other chronic pain G89.29 Active 40105066 ALLERGIES No Information ENCOUNTERS Encounter Location Date Diagnosis [facility] [id number], [place] [address] Jul, Sore throat J02.9 and Strep pharyngitis J02.0 [facility] [address] [place] [id number] Jul, Type 2 diabetes mellitus with hyperglycemia E11.65 and Chronic bronchitis, unspecified chronic bronchitis type J42 [facility] [place] [id number], [place] [address] Jul, [facility] [place] [id number], [place] [address] Jul, Other chronic pain G89.29 [facility] [address] [place] [id number] Jun, History of arthroplasty of left knee Z96.652 [facility] [id number] [place] [address] May, Right upper quadrant abdominal pain R10.11 ; Abdominal pain R10.9 and BMI 40.0-44.9, adult Z68.41 [id number] [place] [address] 16 Apr, 2018 Right lower quadrant abdominal pain R10.31 ; 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.33 ; Type 2 diabetes mellitus with hyperglycemia E11.65 ; BMI 40.0-44.9, adult Z68.41 ; Head lice B85.0 and Yeast infection B37.9 [address] [id number] [place] [address] 10 Mar, 2018 Medicare annual wellness visit, initial Z00.00 ; BMI 40.0- 44.9, adult Z68.41 ; Type 2 diabetes mellitus with hyperglycemia E11.65 ; Cardiomegaly I51.7 ; 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.33 ; Chronic bronchitis, unspecified chronic bronchitis type J42 ; Other chronic pain G89.29 ; Dysuria R30.0 and Encounter for immunization Z23 [address] [id number] [place] [address] Mar, [address] [address] [address] Dec, [place] [id number] [place] [address] Dec, Type 2 diabetes mellitus with hyperglycemia E11.65 ; Non- insulin dependent type 2 diabetes mellitus E11.9 ; BMI 40.0-44.9, adult Z68.41 ; Chronic bronchitis, unspecified chronic bronchitis type J42 ; Muscle cramp R25.2 and Incisional hernia, without obstruction or gangrene K43.2 [place] [id number] [place] [address] Nov, [facility] [id number] [place] [address] Nov, Abdominal pain, unspecified abdominal location R10.9 ; Constipation, unspecified constipation type K59.00 and BMI 40.0-44.9, adult Z68.41 [place] [id number] [place] [address] 60[address]83 Nov, [place] [id number] [place] [address] 26[address] 8078 Oct, [address] [address] [address] Oct, [place] [address] [address] Oct, Breast pain, left N64.4 and BMI 40.0-44.9, adult Z68.41 [facility] [address] [address] Sep, BMI 40.0-44.9, adult Z68.41 and Multiple wounds of skin R23.8 [facility] [id number] [place] [address] Sep, Body aches R52 ; Dysuria R30.0 and Viral URI J06.9 [id number] [place] [address] Aug, Nausea R11.0 ; Other viral agents as the cause of diseases classified elsewhere B97.89 and Acute upper respiratory infection, unspecified J06.9 [id number] [place] [address] 8[address]- 58[address] Aug, [address] [id number] [place] [address]14- 1060 Aug, [facility] [id number] [place] [address] Jul, Sore throat J02.9 and BMI 40.0-44.9, adult Z68.41 [id number] [place] [address] Jun, Herniation through surgical site K43.2 ; Leg numbness R20.0 ; Acute pain of left knee M25.562 ; Fall, initial encounter W19.XXXA ; Non- insulin dependent type 2 diabetes mellitus E11.9 ; Morbid obesity, unspecified obesity type E66.01 ; Other chronic pain G89.29 and Unspecified abdominal pain R10.9 [facility] [id number] [place] [address] Jun, Muscle strain of left shoulder, initial encounter S46.912A [place] [id number] [place] [address] May, [address] [address] [address] May, [facility] [id number] [place] [address] May, Acute pain of right knee M25.561 and Right knee sprain S83.91XA [place] [id number] [place] [address] 67[address] Apr, [address] [id number] [place] [address]- [address]7 Apr, [address] [id number] [place] [address] 75804[address] 4[address] Apr, 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 ; Morbid obesity, unspecified obesity type E66.01 ; Acute exacerbation of chronic obstructive pulmonary disease (COPD) J44.1 ; Pain in right knee M25.561 ; Screening for breast cancer Z12.31 and Generalized anxiety disorder F41.1 [place] [id number] [place] [address] 37871- [address] Mar, [facility] [id number] [place] [address] Mar, Dysuria R30.0 and Acute cystitis without hematuria N30.00 [facility] [id number] [place] [address] Feb, [facility] [address], [place] [address] Feb, Muscle cramps R25.2 and Seasonal allergic rhinitis, unspecified allergic rhinitis trigger J30.2 [facility] [place] [id number], [place] [address] January, [place] [id number] [place] [address]97[address] 6786 January, Generalized anxiety disorder F41.1 [facility] [id number] [place] [address] January, Acute exacerbation of chronic obstructive pulmonary disease (COPD) J44.1 [facility] [id number] [place] [address] Dec, Cramps, muscle, general R25.2 [address] [address] [address] Dec, [place] [id number] [place] [address] 46446[address] 90[address] Nov, Type 2 diabetes mellitus with hyperglycemia E11.65 and Non- insulin dependent type 2 diabetes mellitus E11.9 [place] [id number] [place] [address] 98327- 2017 Oct, Generalized anxiety disorder F41.1 [facility] [id number] [place] [address] Oct, Vaginal candidiasis B37.3 [address] [id number] [place] [address] 21015- 9425 Oct, Right upper quadrant abdominal pain R10.11 and S/P cholecystectomy Z90.49 [address] [id number] [place] [address] 58054- 4962 Sep, Sore throat J02.9 and Right lower quadrant pain R10.31 [address] [address] [address]56[address] Sep, Generalized anxiety disorder F41.1 [address] [address] [address] Sep, [facility] [place] [address] [address] Sep, [place] [address] 6[address] Sep, Chest pain, unspecified type R07.9 ; Left lower quadrant pain R10.32 and Other acute postprocedural pain G89.18 [address] [address] [address] Sep, Fever in other diseases R50.81 ; Acute non-recurrent maxillary sinusitis J01.00 and Cough R05 [address] [address] [address] Sep, [facility] [address] [address] Sep, Dysuria R30.0 ; Sore throat J02.9 ; Chest pain, unspecified type R07.9 and Female genital lesion N94.9 [address] [address] [address]- [address] Aug, Drug-induced constipation K59.03 ; Left arm pain M79.602 and S/P cholecystectomy Z90.49 [facility] [address] [address] Aug, Sore throat J02.9 and Strep pharyngitis J02.0 [address] [address] 5[address]84- [address]27 Aug, [place] [address] [address] Aug, [place] [address] [address] Aug, [facility] [place] [id number] [place] [address] 41226- 7136 Jul, [facility] [place] [address] [address] 28 Jul, 2016 Type 2 diabetes mellitus with hyperglycemia E11.65 ; 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.33 ; Morbid obesity, unspecified obesity type E66.01 and Right upper quadrant abdominal pain R10.11 [facility] IN [facility] [address] [address] 14 Jul, 2016 Dysuria R30.0 ; Shortness of breath R06.02 ; Cardiomegaly I51.7 and COPD exacerbation J44.1 [place] [address] 84548[address] Jul, Bipolar disorder, unspecified F31.9 and Generalized anxiety disorder F41.1 [place] [address] [address] Jun, [place] [address] 27[address] Jun, Sleep apnea, unspecified sleep apnea type G47.30 [facility] [place] [id number] [place] [address] 17400[address] 8[address] Jun, Bipolar disorder, unspecified F31.9 and Generalized anxiety disorder F41.1 [address] [id number] [place] [address] 67974- 8428 May, Right lower quadrant abdominal pain 789.03 ; Diabetes mellitus type 2, uncontrolled 250.02 ; Bipolar disorder 296.80 ; COPD (chronic obstructive pulmonary disease) 496 ; Bug bite without infection 919.4 and Left upper quadrant pain 789.02 [facility] [place] [id number] [place] [address]48- 0[address] 16 May, 2015 Right lower quadrant abdominal pain 789.03 [address] [place] [address] [address] May, [facility] [place] [address] [facility] [id number] [place] [address] Apr, [facility] [place] [address] [facility] [id number] [address] Apr, Skin infection 686.9 [facility] [place] [address] [facility] [id number] [place] [address] Apr, Diabetes mellitus type 2, uncontrolled 250.02 ; Bipolar disorder 296.80 ; Hyperlipidemia 272.4 ; COPD (chronic obstructive pulmonary disease) 496 ; Sleep apnea in adult 327.23 and Routine adult health maintenance V70.0 [facility] [place] [address] [facility] [id number] [address] Apr, Bipolar disorder 296.80 IMMUNIZATIONS No Known Immunizations SOCIAL HISTORY Never Assessed REASON FOR VISIT wanting dc orders PLAN OF CARE Activity Details Follow Up 3 Months Reason: VITAL SIGNS MEDICATIONS No Known Medications RESULTS No Results PROCEDURES Procedure Date Ordered Result Body Site Stable Visit (10 minutes) Aug 06, 2018 INSTRUCTIONS MEDICATIONS ADMINISTERED No Known Medications MEDICAL [...] 09/19/2016 Surgical History Right knee Scope 2016 Surgical History Left knee meniscus repair 04/2018 Hospitalization History Urinary tract infection 2015 Hospitalization History past surgeries
--- OUTSIDE RECORDS SUMMARY | 2018-10-29 15:40 | XMS REPORT ---
Author Author LATRELL MENDOZA Organization [facility] Address [address] [place] [address] Care Team Providers Care Signals Collection Technician Name Role Phone LATRELL MENDOZA Unavailable PROBLEMS Type Condition ICD9-CM Code IIL33-PE Code Onset Dates Condition Status SNOMED Code Problem 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.33 Active 05271156 Problem Cardiomegaly I51.7 Active 0587900 Problem History of arthroplasty of left knee Z96.652 Active 441650812 Problem Chronic bronchitis, unspecified chronic bronchitis type J42 Active 47503169 Problem Type 2 diabetes mellitus with hyperglycemia E11.65 Active 037782641013477 Problem 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 Active 93349320 Problem BMI 40.0-44.9, adult Z68.41 Active 660462530 Problem Other chronic pain G89.29 Active 80327825 ALLERGIES No Information ENCOUNTERS Encounter Location Date Diagnosis [facility] [id number] [place] [address] 64446- 7622 Jul, [facility] [id number] [place] [address] 78176- 7056 Jul, [facility] [id number] [place] [address] 01689- 7477 Jul, Other chronic pain G89.29 [facility] [address] [place], [place] [id number] Jun, History of arthroplasty of left knee Z96.652 [facility] [id number] [place] [address] 24414 -7520 17 May, 2018 Right upper quadrant abdominal pain R10.11 ; Abdominal pain R10.9 and BMI 40.0-44.9, adult Z68.41 [facility] [id number] [place] [address] 29541- 0732 Apr, Right lower quadrant abdominal pain R10.31 ; 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.33 ; Type 2 diabetes mellitus with hyperglycemia E11.65 ; BMI 40.0-44.9, adult Z68.41 ; Head lice B85.0 and Yeast infection B37.9 [facility] [id number] [place] [address] 77740- 6758 Mar, Medicare annual wellness visit, initial Z00.00 ; BMI 40.0- 44.9, adult Z68.41 ; Type 2 diabetes mellitus with hyperglycemia E11.65 ; Cardiomegaly I51.7 ; 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.33 ; Chronic bronchitis, unspecified chronic bronchitis type J42 ; Other chronic pain G89.29 ; Dysuria R30.0 and Encounter for immunization Z23 [place] [id number] [place] [address] 13816- 7044 Mar, [place] [address] [address] Dec, [place] [id number] [place] [address] 45566- 4245 Dec, Type 2 diabetes mellitus with hyperglycemia E11.65 ; Non- insulin dependent type 2 diabetes mellitus E11.9 ; BMI 40.0-44.9, adult Z68.41 ; Chronic bronchitis, unspecified chronic bronchitis type J42 ; Muscle cramp R25.2 and Incisional hernia, without obstruction or gangrene K43.2 [facility] [id number] [place] [address] 87721- 6084 Nov, [facility] [id number] [place] [address] 98972 -6541 Nov, Abdominal pain, unspecified abdominal location R10.9 ; Constipation, unspecified constipation type K59.00 and BMI 40.0-44.9, adult Z68.41 [facility] [id number] [place] [address] 94502- 5193 Nov, [facility] [address] 74199- 7330 16 Oct, 2017 [place] [id number] [place] [address] 16849- 1575 Oct, [place] [address] 34546- 8938 05 Oct, 2017 Breast pain, left N64.4 and BMI 40.0-44.9, adult Z68.41 [facility] [place] [address] [address]83 Sep, BMI 40.0-44.9, adult Z68.41 and Multiple wounds of skin R23.8 [facility] [address] [address] Sep, Body aches R52 ; Dysuria R30.0 and Viral URI J06.[address] 14[address]- [address] Aug, Nausea R11.0 ; Other viral agents as the cause of diseases classified elsewhere B97.89 and Acute upper respiratory infection, unspecified J06.9 [place] [id number] [place] [address] 63585- 4208 Aug, [place] [id number] [place] [address] 05932- 1269 Aug, [facility] [place] [id number] [place] [address] 48912 -3139 Jul, Sore throat J02.9 and BMI 40.0-44.9, adult Z68.41 [place] [id number] [place] [address] 43159- 0991 Jun, Herniation through surgical site K43.2 ; Leg numbness R20.0 ; Acute pain of left knee M25.562 ; Fall, initial encounter W19.XXXA ; Non- insulin dependent type 2 diabetes mellitus E11.9 ; Morbid obesity, unspecified obesity type E66.01 ; Other chronic pain G89.29 and Unspecified abdominal pain R10.9 [facility] [place] [id number] [place] [address] 66980 -2388 Jun, Muscle strain of left shoulder, initial encounter S46.912A [place] [id number] [place] [address] 83098- 2784 May, [place] [id number] [place] [address] 82888- 0048 May, [facility] [place] [address] [address] 05 May, 2017 Acute pain of right knee M25.561 and Right knee sprain S83.91XA [place] [address] 02640- 3244 Apr, [place] [id number] [place] [address] 51796- 3272 Apr, [place] [id number] [place] [address] 55426- 8864 Apr, 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 ; Morbid obesity, unspecified obesity type E66.01 ; Acute exacerbation of chronic obstructive pulmonary disease (COPD) J44.1 ; Pain in right knee M25.561 ; Screening for breast cancer Z12.31 and Generalized anxiety disorder F41.1 [place] [id number] [place] [address] 86867- 0795 Mar, [facility] [place] [id number] [place] [address] 77680 -8219 Mar, Dysuria R30.0 and Acute cystitis without hematuria N30.00 [facility] [place] [id number] [place] [address] 65748 -5000 Feb, [facility] [place] [id number] [place] [address] 00376 -1638 Feb, Muscle cramps R25.2 and Seasonal allergic rhinitis, unspecified allergic rhinitis trigger J30.2 [place] [address] [address] January, [facility] [id number] [place] [address] 71618- 0662 January, Generalized anxiety disorder F41.1 [facility] [id number] [place] [address] 53298 -3502 January, Acute exacerbation of chronic obstructive pulmonary disease (COPD) J44.1 [facility] [id number] [place] [address] 80216 -6610 Dec, Cramps, muscle, general R25.2 [facility] [id number] [place] [address] 05347- 4153 Dec, [place] [id number] [place] [address] 78187- 7504 Nov, Type 2 diabetes mellitus with hyperglycemia E11.65 and Non- insulin dependent type 2 diabetes mellitus E11.9 [facility] [id number] [place] [address] 45736- 0361 Oct, Generalized anxiety disorder F41.1 [facility] [id number] [place] [address] 42661 -2856 Oct, Vaginal candidiasis B37.3 [place] [id number] [place] [address] 73425- 2377 Oct, Right upper quadrant abdominal pain R10.11 and S/P cholecystectomy Z90.49 [facility] [id number] [place] [address] 12866- 8502 Sep, Sore throat J02.9 and Right lower quadrant pain R10.31 [place] [id number] [place] [address] 52048- 4213 Sep, Generalized anxiety disorder F41.1 [facility] [id number] [place] [address] 17876- 0222 Sep, [facility] [id number] [place] [address] 77323- 0445 Sep, [facility] [address] 35127- 4779 Sep, Chest pain, unspecified type R07.9 ; Left lower quadrant pain R10.32 and Other acute postprocedural pain G89.18 [place] [address] 87572- 0370 Sep, Fever in other diseases R50.81 ; Acute non-recurrent maxillary sinusitis J01.00 and Cough R05 [place] [address] 99596- 9480 Sep, [facility] [id number] [place] [address] 78792 -0783 Sep, Dysuria R30.0 ; Sore throat J02.9 ; Chest pain, unspecified type R07.9 and Female genital lesion N94.9 [place] [id number] [place] [address] 09581- 5640 Aug, Drug-induced constipation K59.03 ; Left arm pain M79.602 and S/P cholecystectomy Z90.49 [facility] [id number] [place] [address] 94869 -8249 Aug, Sore throat J02.9 and Strep pharyngitis J02.0 [place] [id number] [place] [address] 74873- 1092 Aug, [place] [address] 73508- 8722 Aug, [place] [address] 02062- 8112 Aug, [place] [address] 95026- 3576 Jul, [facility] [address] 13309- 3785 28 Jul, 2016 Type 2 diabetes mellitus with hyperglycemia E11.65 ; 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.33 ; Morbid obesity, unspecified obesity type E66.01 and Right upper quadrant abdominal pain R10.11 [facility] IN [facility] [id number] [place] [address] 98185 -6152 14 Jul, 2016 Dysuria R30.0 ; Shortness of breath R06.02 ; Cardiomegaly I51.7 and COPD exacerbation J44.1 [place] [address] 65147- 9648 Jul, Bipolar disorder, unspecified F31.9 and Generalized anxiety disorder F41.1 [place] [address] 21591- 0343 Jun, [place] [address] 86779- 1768 Jun, Sleep apnea, unspecified sleep apnea type G47.30 [facility] [address] 96963- 8902 Jun, Bipolar disorder, unspecified F31.9 and Generalized anxiety disorder F41.1 [facility] [address] 64924- 6532 28 May, 2015 Right lower quadrant abdominal pain 789.03 ; Diabetes mellitus type 2, uncontrolled 250.02 ; Bipolar disorder 296.80 ; COPD (chronic obstructive pulmonary disease) 496 ; Bug bite without infection 919.4 and Left upper quadrant pain 789.02 [facility] [id number] [place] [address] 04012- 7516 16 May, 2015 Right lower quadrant abdominal pain 789.03 [place] [address] 42138- 9649 10 May, 2015 [place] [address] 43709- 6362 Apr, [facility] [address] 75257- 4120 Apr, Skin infection 686.9 [facility] [address] [facility] [id number] [place] [address] Apr, Diabetes mellitus type 2, uncontrolled 250.02 ; Bipolar disorder 296.80 ; Hyperlipidemia 272.4 ; COPD (chronic obstructive pulmonary disease) 496 ; Sleep apnea in adult 327.23 and Routine adult health maintenance V70.0 [facility] [address] [facility] [id number] [place] [address] 8713 Apr, Bipolar disorder 296.80 IMMUNIZATIONS No Known Immunizations SOCIAL HISTORY Never Assessed REASON FOR VISIT knee pain PLAN OF CARE VITAL SIGNS MEDICATIONS Unknown [...] repair 04/2018 Hospitalization History Urinary tract infection 2014 Hospitalization History past surgeries
--- OUTSIDE RECORDS SUMMARY | 2018-10-29 15:40 | XMS REPORT ---
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 Role Phone RISSA BACON Unavailable PROBLEMS Type Condition ICD9-CM Code WSH31-QO Code Onset Dates Condition Status SNOMED Code Problem 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.33 Active 64896085 Problem Cardiomegaly I51.7 Active 2317700 Problem History of arthroplasty of left knee Z96.652 Active 062664325 Problem Chronic bronchitis, unspecified chronic bronchitis type J42 Active 61195909 Problem Type 2 diabetes mellitus with hyperglycemia E11.65 Active 896352478061560 Problem 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 Active 42633029 Problem BMI 40.0-44.9, adult Z68.41 Active 997821100 Problem Other chronic pain G89.29 Active 59003118 ALLERGIES Substance Reaction Event Type Date Status Penicillin V Potassium Unknown Drug Allergy Jul, Active Doxycycline Hyclate hives Drug Allergy Jul, Active IV contrast dye Unknown Non Drug Allergy Jul, Active ENCOUNTERS Encounter Location Date Diagnosis [facility] [address] [facility] [id number] [address] Jul, Sore throat J02.9 and Strep pharyngitis J02.0 [facility] [address] [place] [id number] Jul, Type 2 diabetes mellitus with hyperglycemia E11.65 and Chronic bronchitis, unspecified chronic bronchitis type J42 [facility] [address] [place] [id number] [place] [address] Jul, [facility] [address] [id number] [address] Jul, Other chronic pain G89.29 [facility] [address] [place] [id number] Jun, History of arthroplasty of left knee Z96.652 [facility] [place] [address] [place] [address] [id number] [place] [address] May, Right upper quadrant abdominal pain R10.11 ; Abdominal pain R10.9 and BMI 40.0-44.9, adult Z68.[address] [address] Apr, Right lower quadrant abdominal pain R10.31 ; 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.33 ; Type 2 diabetes mellitus with hyperglycemia E11.65 ; BMI 40.0-44.9, adult Z68.41 ; Head lice B85.0 and Yeast infection B37.9 [place] [address] [place] [id number] [place] [address] Mar, Medicare annual wellness visit, initial Z00.00 ; BMI 40.0- 44.9, adult Z68.41 ; Type 2 diabetes mellitus with hyperglycemia E11.65 ; Cardiomegaly I51.7 ; 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.33 ; Chronic bronchitis, unspecified chronic bronchitis type J42 ; Other chronic pain G89.29 ; Dysuria R30.0 and Encounter for immunization Z23 [place] [address] [place] [id number] [place] [address] Mar, [place] [address] [place] [id number] [place] [address]242 Dec, [address] [address] Dec, Type 2 diabetes mellitus with hyperglycemia E11.65 ; Non- insulin dependent type 2 diabetes mellitus E11.9 ; BMI 40.0-44.9, adult Z68.41 ; Chronic bronchitis, unspecified chronic bronchitis type J42 ; Muscle cramp R25.2 and Incisional hernia, without obstruction or gangrene K43.2 [place] [address] [place] [id number] [place] [address] Nov, [facility] [place] [address] [place] [address] Nov, Abdominal pain, unspecified abdominal location R10.9 ; Constipation, unspecified constipation type K59.00 and BMI 40.0-44.9, adult Z68.41 [place] [address] [place] [id number] [place] [address]24[address] Nov, [place] [address] [address] Oct, [place] [address] [address] Oct, [place] [address] [address] Oct, Breast pain, left N64.4 and BMI 40.0-44.9, adult Z68.41 [facility] [address] [address] Sep, BMI 40.0-44.9, adult Z68.41 and Multiple wounds of skin R23.8 [facility] [place] [id number] [place] [address] Sep, Body aches R52 ; Dysuria R30.0 and Viral URI J06.9 [place] [id number] [place] [address] Aug, Nausea R11.0 ; Other viral agents as the cause of diseases classified elsewhere B97.89 and Acute upper respiratory infection, unspecified J06.9 [place] [address] [place] [id number] [place] [address] Aug, [address] [address] Aug, [facility] [place] [id number] [place] [address] Jul, Sore throat J02.9 and BMI 40.0-44.9, adult Z68.41 [place] [address] [place] [id number] [place] [address] 06[address] Jun, Herniation through surgical site K43.2 ; Leg numbness R20.0 ; Acute pain of left knee M25.562 ; Fall, initial encounter W19.XXXA ; Non- insulin dependent type 2 diabetes mellitus E11.9 ; Morbid obesity, unspecified obesity type E66.01 ; Other chronic pain G89.29 and Unspecified abdominal pain R10.9 [facility] [place] [address] [place] [address] [id number] [place] [address] Jun, Muscle strain of left shoulder, initial encounter S46.912A [place] [address] [place] [id number] [place] [address] May, [place] [address] [place] [id number] [place] [address] 30268[address] May, [facility] [place] [address] [place] [address] [id number] [place] [address] May, Acute pain of right knee M25.561 and Right knee sprain S83.91XA [place] [address] [place] [id number] [place] [address] 69850- 7410 Apr, [place] [address] [place] [id number] [place] [address] 46031- 80[address] Apr, [place] [address] [place] [id number] [place] [address] 81033- [address] Apr, 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 ; Morbid obesity, unspecified obesity type E66.01 ; Acute exacerbation of chronic obstructive pulmonary disease (COPD) J44.1 ; Pain in right knee M25.561 ; Screening for breast cancer Z12.31 and Generalized anxiety disorder F41.1 [place] [address] [place] [id number] [place] [address]10- [address] Mar, [facility] [address] [place] [address] [id number] [place] [address] Mar, Dysuria R30.0 and Acute cystitis without hematuria N30.00 [facility] [address] [place] [address] Feb, [facility] [address] [address] Feb, Muscle cramps R25.2 and Seasonal allergic rhinitis, unspecified allergic rhinitis trigger J30.2 [place] [address] [address] January, [place] [address] [address] January, Generalized anxiety disorder F41.1 [facility] W[facility] IN [address] [address] January, Acute exacerbation of chronic obstructive pulmonary disease (COPD) J44.1 [facility] IN [address] [address] Dec, Cramps, muscle, general R25.[address] [address] Dec, [address] [address] Nov, Type 2 diabetes mellitus with hyperglycemia E11.65 and Non- insulin dependent type 2 diabetes mellitus E11.[address] [address] Oct, Generalized anxiety disorder F41.1 [facility] [address] [address] Oct, Vaginal candidiasis B37.[address] [address] Oct, Right upper quadrant abdominal pain R10.11 and S/P cholecystectomy Z90.[address] [address] Sep, Sore throat J02.9 and Right lower quadrant pain R10.31 [place] [address] [place] [id number] [place] [address] 0[address]60[address] 3[address] Sep, Generalized anxiety disorder F41.1 [place] [address] [place] [id number] [place] [address] 07866- 1747 Sep, [place] [address] 6[address] Sep, [place] [address] [place] [id number] [place] [address] 83166[address] Sep, Chest pain, unspecified type R07.9 ; Left lower quadrant pain R10.32 and Other acute postprocedural pain G89.18 [place] [address] [place] [id number] [place] [address] 15041[address] 96[address] Sep, Fever in other diseases R50.81 ; Acute non-recurrent maxillary sinusitis J01.00 and Cough R05 [place] [address] [place] [id number] [place] [address] 81773- 67[address] Sep, [facility] [place] [address] [place] [address] [id number] [place] [address] Sep, Dysuria R30.0 ; Sore throat J02.9 ; Chest pain, unspecified type R07.9 and Female genital lesion N94.9 [place] [address] [place] [address] [id number] [place] [address] 07777- [address]227 Aug, Drug-induced constipation K59.03 ; Left arm pain M79.602 and S/P cholecystectomy Z90.49 [facility] IN [facility] [address] [place] [id number] [place] [address] Aug, Sore throat J02.9 and Strep pharyngitis J02.0 [place] [address] [place] [id number] [place] [address] 86099- [address]105 Aug, [place] [address] [place] [id number] [place] [address] 12806- [address] 13 Aug, 2016 [place] [address] [address] Aug, [place] [address] [address]- 67[address] 28 Jul, 2016 [place] [address] [address]- [address] 28 Jul, 2016 Type 2 diabetes mellitus with hyperglycemia E11.65 ; 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.33 ; Morbid obesity, unspecified obesity type E66.01 and Right upper quadrant abdominal pain R10.11 [facility] [place] [address] [address] 14 Jul, 2016 Dysuria R30.0 ; Shortness of breath R06.02 ; Cardiomegaly I51.7 and COPD exacerbation J44.1 [place] [address] [address] Jul, Bipolar disorder, unspecified F31.9 and Generalized anxiety disorder F41.1 [place] [address] 009[address]- [address] Jun, [place] [address] [address]- [address] 16 Jun, 2015 Sleep apnea, unspecified sleep apnea type G47.30 [place] [address] [address]36[address] Jun, Bipolar disorder, unspecified F31.9 and Generalized anxiety disorder F41.1 [place] [address] [address] 28 May, 2015 Right lower quadrant abdominal pain 789.03 ; Diabetes mellitus type 2, uncontrolled 250.02 ; Bipolar disorder 296.80 ; COPD (chronic obstructive pulmonary disease) 496 ; Bug bite without infection 919.4 and Left upper quadrant pain 789.02 [place] [address] [address] 16 May, 2015 Right lower quadrant abdominal pain 789.03 [place] [address] [address] May, [place] [address] [address] Apr, [place] [address] [address] Apr, Skin infection 686.9 [place] [address] [address] Apr, Diabetes mellitus type 2, uncontrolled 250.02 ; Bipolar disorder 296.80 ; Hyperlipidemia 272.4 ; COPD (chronic obstructive pulmonary disease) 496 ; Sleep apnea in adult 327.23 and Routine adult health maintenance V70.0 [place] [address] [address] Apr, Bipolar disorder 296.80 IMMUNIZATIONS No Known Immunizations SOCIAL HISTORY Never Assessed REASON FOR VISIT Sore throat, sore throat that started a couple of days ago. The patient has been exposed to strep by her grandkids.--THIERNO Villanueva PLAN OF CARE Activity Details Follow Up if not improving with PCP or reg follow up Reason: VITAL SIGNS Height 69 in 2018-08-26 Weight 270 lbs 2018-08-26 Temperature 97.4 degrees Fahrenheit 2018-08-26 Heart Rate 96 bpm 2018-08-26 Respiratory Rate 20 2018-08-26 BMI 39.87 kg/m2 2018-08-26 Blood pressure systolic 130 mmHg 2018-08-26 Blood pressure diastolic 74 mmHg 2018-08-26 MEDICATIONS Medication Instructions Dosage Frequency Start Date End Date Duration Status Prozac 40 mg Orally Once a day 1 capsule in the morning 24h 90 days Active Metformin HCl 1000 MG Orally twice a day 1 tablet 12h 30 days Active Albuterol Sulfate (2.5 MG/3ML) 0.083% Inhalation Three times a day 3 ml 8h Active Ibuprofen 600 MG Orally Three times a day 1 tablet with food or milk as needed 8h Jul, Active Flonase Allergy Relief 50 MCG/ACT Nasally twice a day 1 spray in each nostril 12h Active Breo Ellipta 100-25 MCG/INH Inhalation Once a day 1 puff 24h Active Azithromycin 250 MG Orally Once a day 2 tablets on the first day, then 1 tablet daily for 4 days 24h Jul, 5 day(s) Active Omeprazole 40 mg Orally Once a day 1 capsule 24h 90 Active Albuterol Sulfate 108 (90 Base) MCG/ACT Inhalation every 4 hrs 2 puff as needed 4h Active Hydrocodone-Acetaminophen 5-325 MG Orally every 6 hrs 1 tablet as needed 6h Jul, Active Vicodin ES 7.5-300 MG Orally every 6 hrs 1 tablet as needed 6h Active RESULTS Name Result Date Reference Range STREP A (IN HOUSE) 2018-08-26 STREP A positive Control + Lot # [id number] Exp date 01/2019 PROCEDURES Procedure Date Ordered Result Body Site STREP A ASSAY W/OPTIC Aug 26, 2018 [facility] VISIT ESTABLISHED PATIENT Aug 26, 2018 INSTRUCTIONS MEDICATIONS ADMINISTERED No Known Medications [...]
--- OUTSIDE RECORDS SUMMARY | 2018-10-29 15:41 | XMS REPORT ---
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 Name Role Phone SLY HARRIS Unavailable PROBLEMS Type Condition ICD9-CM Code WOK09-BS Code Onset Dates Condition Status SNOMED Code Problem Cardiomegaly I51.7 Active 9030007 Problem Chronic bronchitis, unspecified chronic bronchitis type J42 Active 00590503 Problem BMI 40.0-44.9, adult Z68.41 Active 496286839 Problem 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.33 Active 01548039 Problem 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 Active 79016512 Problem Other chronic pain G89.29 Active 04330727 Problem Type 2 diabetes mellitus with hyperglycemia E11.65 Active [id number] ALLERGIES Substance Reaction Event Type Date Status Penicillin V Potassium Unknown Drug Allergy May, Active Doxycycline Hyclate hives Drug Allergy May, Active IV contrast dye Unknown Non Drug Allergy May, Active ENCOUNTERS Encounter Location Date Diagnosis [facility] [id number] [address] May, Right upper quadrant abdominal pain R10.11 ; Abdominal pain R10.9 and BMI 40.0-44.9, adult Z68.41 [facility] [address] [id number] [address] 16 Apr, 2018 Right lower quadrant abdominal pain R10.31 ; 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.33 ; Type 2 diabetes mellitus with hyperglycemia E11.65 ; BMI 40.0-44.9, adult Z68.41 ; Head lice B85.0 and Yeast infection B37.9 [facility] [address] [facility] [id number] [address] Mar, Medicare annual wellness visit, initial Z00.00 ; BMI 40.0- 44.9, adult Z68.41 ; Type 2 diabetes mellitus with hyperglycemia E11.65 ; Cardiomegaly I51.7 ; 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.33 ; Chronic bronchitis, unspecified chronic bronchitis type J42 ; Other chronic pain G89.29 ; Dysuria R30.0 and Encounter for immunization Z23 [place] [id number] [place] [address] Mar, [place] [address] [address] Dec, [place] [address] [address] Dec, Type 2 diabetes mellitus with hyperglycemia E11.65 ; Non- insulin dependent type 2 diabetes mellitus E11.9 ; BMI 40.0-44.9, adult Z68.41 ; Chronic bronchitis, unspecified chronic bronchitis type J42 ; Muscle cramp R25.2 and Incisional hernia, without obstruction or gangrene K43.2 [place] [id number] [place] [address]01[address] Nov, [facility] [address] [address] Nov, Abdominal pain, unspecified abdominal location R10.9 ; Constipation, unspecified constipation type K59.00 and BMI 40.0-44.9, adult Z68.41 [place] [id number] [place] [address]45- 40[address] Nov, [place] [id number] [place] [address] 37970- 9411 Oct, [place] [address] [address] Oct, [place] [id number] [place] [address] 91391- 9403 Oct, Breast pain, left N64.4 and BMI 40.0-44.9, adult Z68.41 [facility] [address] [place] [id number] [place] [address]41 [address] Sep, BMI 40.0-44.9, adult Z68.41 and Multiple wounds of skin R23.8 [facility] [place] [id number] [place] [address]65 [address] Sep, Body aches R52 ; Dysuria R30.0 and Viral URI J06.[address] [address] Aug, Nausea R11.0 ; Other viral agents as the cause of diseases classified elsewhere B97.89 and Acute upper respiratory infection, unspecified J06.9 [place] [id number] [place] [address]- [address]87 Aug, [address] [address] Aug, [facility] [place] [id number] [place] [address]49 [address]6547 Jul, Sore throat J02.9 and BMI 40.0-44.9, adult Z68.41 [place] [id number] [place] [address] 22963- 8262 Jun, Herniation through surgical site K43.2 ; Leg numbness R20.0 ; Acute pain of left knee M25.562 ; Fall, initial encounter W19.XXXA ; Non- insulin dependent type 2 diabetes mellitus E11.9 ; Morbid obesity, unspecified obesity type E66.01 ; Other chronic pain G89.29 and Unspecified abdominal pain R10.9 [facility] [place] [address] [id number] [place] [address]20 [address] Jun, Muscle strain of left shoulder, initial encounter S46.912A [place] [id number] [place] [address]41[address] [address] May, [address] [address] May, [facility] [place] [id number] [place] [address] May, Acute pain of right knee M25.561 and Right knee sprain S83.91XA [place] [id number] [place] [address] 14008- 0205 Apr, [place] [id number] [place] [address] 11034- 3081 Apr, [place] [id number] [place] [address] 27834- 3757 Apr, 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 ; Morbid obesity, unspecified obesity type E66.01 ; Acute exacerbation of chronic obstructive pulmonary disease (COPD) J44.1 ; Pain in right knee M25.561 ; Screening for breast cancer Z12.31 and Generalized anxiety disorder F41.1 [place] [id number] [place] [address] 28492- 3014 Mar, [facility] [address] [place] [id number] [place] [address]238 [address] Mar, Dysuria R30.0 and Acute cystitis without hematuria N30.00 [facility] [place] [id number] [place] [address]2532 [address] Feb, [facility] [place] [id number] [place] [address] Feb, Muscle cramps R25.2 and Seasonal allergic rhinitis, unspecified allergic rhinitis trigger J30.2 [place] [id number] [place] [address] 98679- 295[address] January, [place] [id number] [place] [address] 06194- 8881 January, Generalized anxiety disorder F41.1 [facility] [place] [id number] [place] [address]38 -4[address] January, Acute exacerbation of chronic obstructive pulmonary disease (COPD) J44.1 [facility] [id number] [place] [address] 99082 -[address] 05 Dec, 2016 Cramps, muscle, general R25.2 [facility] [id number] [place] [address] 56343- 7565 Dec, [place] [address] 28[address]- [address] Nov, Type 2 diabetes mellitus with hyperglycemia E11.65 and Non- insulin dependent type 2 diabetes mellitus E11.9 [place] [address] 25761- 75[address] Oct, Generalized anxiety disorder F41.1 [facility] [id number] [place] [address] 76574 [address] 20 Oct, 2016 Vaginal candidiasis B37.3 [place] [address] [address]78- [address] Oct, Right upper quadrant abdominal pain R10.11 and S/P cholecystectomy Z90.49 [place] [address] 81076- [address] Sep, Sore throat J02.9 and Right lower quadrant pain R10.31 [place] [address] 44185- [address] Sep, Generalized anxiety disorder F41.1 [place] [id number] [place] [address] 69316- 6186 Sep, [place] [id number] [place] [address] 79452- 2292 Sep, [place] [address] 02253- [address] Sep, Chest pain, unspecified type R07.9 ; Left lower quadrant pain R10.32 and Other acute postprocedural pain G89.18 [place] [address] 72686- [address] Sep, Fever in other diseases R50.81 ; Acute non-recurrent maxillary sinusitis J01.00 and Cough R05 [place] [id number] [place] [address] 23394- 5966 Sep, [facility] [id number] [place] [address] 50923 -4751 Sep, Dysuria R30.0 ; Sore throat J02.9 ; Chest pain, unspecified type R07.9 and Female genital lesion N94.9 [place] [id number] [place] [address] 60465- 2754 Aug, Drug-induced constipation K59.03 ; Left arm pain M79.602 and S/P cholecystectomy Z90.49 [facility] [place] [id number] [place] [address] 59091 -9189 17 Aug, 2016 Sore throat J02.9 and Strep pharyngitis J02.0 [place] [id number] [place] [address] 45635- 6701 14 Aug, 2016 [place] [address] 37653- 3921 Aug, [place] [id number] [place] [address] 41770- 5846 Aug, [place] [id number] [place] [address] 91812- 9002 Jul, [place] [id number] [place] [address] 62049- 0509 28 Jul, 2016 Type 2 diabetes mellitus with hyperglycemia E11.65 ; 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.33 ; Morbid obesity, unspecified obesity type E66.01 and Right upper quadrant abdominal pain R10.11 [facility] [id number] [place] [address] 50031 -1490 14 Jul, 2016 Dysuria R30.0 ; Shortness of breath R06.02 ; Cardiomegaly I51.7 and COPD exacerbation J44.1 [place] [id number] [place] [address] 78391- 1610 Jul, Bipolar disorder, unspecified F31.9 and Generalized anxiety disorder F41.1 [place] [id number] [place] [address] 01624- 5528 Jun, [address] 63[address]- 7067 Jun, Sleep apnea, unspecified sleep apnea type G47.[address] 49[address]- 7604 Jun, Bipolar disorder, unspecified F31.9 and Generalized anxiety disorder F41.1 [place] [id number] [place] [address] 05287- 5383 28 May, 2015 Right lower quadrant abdominal pain 789.03 ; Diabetes mellitus type 2, uncontrolled 250.02 ; Bipolar disorder 296.80 ; COPD (chronic obstructive pulmonary disease) 496 ; Bug bite without infection 919.4 and Left upper quadrant pain 789.02 [place] [id number] [place] [address] 36404- 37[address] 16 May, 2015 Right lower quadrant abdominal pain 789.03 [place] [id number] [place] [address] 38277- 1301 10 May, [address] 31401- [address] Apr, [place] [id number] [place] [address] 04748- 8140 Apr, Skin infection 686.[address] 97337- 5760 11 Apr, 2015 Diabetes mellitus type 2, uncontrolled 250.02 ; Bipolar disorder 296.80 ; Hyperlipidemia 272.4 ; COPD (chronic obstructive pulmonary disease) 496 ; Sleep apnea in adult 327.23 and Routine adult health maintenance V70.[address] [place] [address] Apr, Bipolar disorder 296.80 IMMUNIZATIONS No Known Immunizations SOCIAL HISTORY Never Assessed REASON FOR VISIT Abdominal pain-rt sided abdominal pain around to the back. The patient also has a hernia there. She is also up several times a night to urinate which is unusual. The patient also has a knot under her left arm that she is concerned about.--THIERNO Connor PLAN OF CARE Activity Details Follow Up 2 Weeks Reason: VITAL SIGNS Height 69 in 2018-06-15 Weight 277 lbs 2018-06-15 Temperature 97.4 degrees Fahrenheit 2018-06-15 Heart Rate 96 bpm 2018-06-15 Respiratory Rate 20 2018-06-15 BMI 40.90 kg/m2 2018-06-15 Blood pressure systolic 126 mmHg 2018-06-15 Blood pressure diastolic 76 mmHg 2018-06-15 MEDICATIONS Medication Instructions Dosage Frequency Start Date End Date Duration Status Vicodin ES 7.5-300 MG Orally every 6 hrs 1 tablet as needed 6h Active Metformin HCl 1000 MG Orally twice a day 1 tablet 12h 30 days Active Flonase Allergy Relief 50 MCG/ACT Nasally twice a day 1 spray in each nostril 12h Active Prozac 40 mg Orally Once a day 1 capsule in the morning 24h 90 days Active Albuterol Sulfate (2.5 MG/3ML) 0.083% Inhalation Three times a day 3 ml 8h Active Omeprazole 40 mg Orally Once a day 1 capsule 24h Active Breo Ellipta 100-25 MCG/INH Inhalation Once a day 1 puff 24h Active Albuterol Sulfate 108 (90 Base) MCG/ACT Inhalation every 4 hrs 2 puff as needed 4h Active RESULTS Name Result Date Reference Range UA LONG DIP (IN HOUSE) 2018-06-15 Lot # [id number] Exp date 06/2018 Clarity clear Color dk yellow Odor no GLU Negative ZANDER 1+ KET Trace SG >=1.030 BLO Negative pH 5.5 Protein Negative URO 0.2 NIT Negative GUSTAVO Negative Lot # [id number] Exp date 08/2018 Xray : Abdomen 2v (Upright and KUB) - IN HOUSE 2018-06-15 PROCEDURES Procedure Date Ordered Result Body Site URINALYSIS, AUTO, W/O SCOPE Jun 15, 2018 X-RAY EXAM ABDOMEN 2 VIEWS Jun 15, 2018 [facility] VISIT ESTABLISHED PATIENT Jun 15, 2018 INSTRUCTIONS MEDICATIONS ADMINISTERED No Known Medications [...]
--- OUTSIDE RECORDS SUMMARY | 2018-10-29 15:41 | XMS REPORT ---
Author Author NICKY THOMPSON Organization [facility] Address [address] [place] [address] Care Team Providers Care Veneer Glue Jointer Feedback Name Role Phone NICKY THOMPSON Unavailable PROBLEMS Type Condition ICD9-CM Code [id number] Code Onset Dates Condition Status SNOMED Code Problem Cardiomegaly I51.7 Active 1446859 Problem Chronic bronchitis, unspecified chronic bronchitis type J42 Active 64221644 Problem BMI 40.0-44.9, adult Z68.41 Active 503857006 Problem 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.33 Active 86357880 Problem 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 Active 18152722 Problem Other chronic pain G89.29 Active 56409177 Problem Type 2 diabetes mellitus with hyperglycemia E11.65 Active [id number] ALLERGIES Substance Reaction Event Type Date Status Penicillin V Potassium Unknown Drug Allergy Apr, Active Doxycycline Hyclate hives Drug Allergy Apr, Active IV contrast dye Unknown Non Drug Allergy Apr, Active ENCOUNTERS Encounter Location Date Diagnosis [facility] [address] [facility] [id number] [address] 17 May, 2018 Right upper quadrant abdominal pain R10.11 ; Abdominal pain R10.9 and BMI 40.0-44.9, adult Z68.41 [facility] [address] [facility] [id number] [place] [address] 16 Apr, 2018 Right lower quadrant abdominal pain R10.31 ; 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.33 ; Type 2 diabetes mellitus with hyperglycemia E11.65 ; BMI 40.0-44.9, adult Z68.41 ; Head lice B85.0 and Yeast infection B37.9 [facility] [address] [facility] [id number] [address] 10 Mar, 2018 Medicare annual wellness visit, initial Z00.00 ; BMI 40.0- 44.9, adult Z68.41 ; Type 2 diabetes mellitus with hyperglycemia E11.65 ; Cardiomegaly I51.7 ; 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.33 ; Chronic bronchitis, unspecified chronic bronchitis type J42 ; Other chronic pain G89.29 ; Dysuria R30.0 and Encounter for immunization Z23 [place] [address] [place] [id number] [place] [address]- 2018 Mar, [place] [address] [address] Dec, [place] [address] [address] Dec, Type 2 diabetes mellitus with hyperglycemia E11.65 ; Non- insulin dependent type 2 diabetes mellitus E11.9 ; BMI 40.0-44.9, adult Z68.41 ; Chronic bronchitis, unspecified chronic bronchitis type J42 ; Muscle cramp R25.2 and Incisional hernia, without obstruction or gangrene K43.2 [place] [address] [place] [id number] [place] [address] Nov, [facility] [place] [address] [place] [id number] [place] [address] Nov, Abdominal pain, unspecified abdominal location R10.9 ; Constipation, unspecified constipation type K59.00 and BMI 40.0-44.9, adult Z68.41 [place] [address] [place] [id number] [place] [address]- [address]226 Nov, [place] [address] [place] [id number] [place] [address] 98953[address] 8141 Oct, [place] [address] [address] Oct, [place] [address] [place] [id number] [place] [address]- [address] Oct, Breast pain, left N64.4 and BMI 40.0-44.9, adult Z68.41 [facility] [address] [place] [address] [place] [address] Sep, BMI 40.0-44.9, adult Z68.41 and Multiple wounds of skin R23.8 [facility] [place] [id number] [place] [address] Sep, Body aches R52 ; Dysuria R30.0 and Viral URI J06.[address] [address] Aug, Nausea R11.0 ; Other viral agents as the cause of diseases classified elsewhere B97.89 and Acute upper respiratory infection, unspecified J06.[address] [address] Aug, [address] [address] Aug, [facility] [address] [address] Jul, Sore throat J02.9 and BMI 40.0-44.9, adult Z68.[address] [address] Jun, Herniation through surgical site K43.2 ; Leg numbness R20.0 ; Acute pain of left knee M25.562 ; Fall, initial encounter W19.XXXA ; Non- insulin dependent type 2 diabetes mellitus E11.9 ; Morbid obesity, unspecified obesity type E66.01 ; Other chronic pain G89.29 and Unspecified abdominal pain R10.9 [facility] [place] [id number] [place] [address] Jun, Muscle strain of left shoulder, initial encounter S46.912A [place] [address] [place] [id number] [place] [address]52[address] [address] May, [address] [address] May, [facility] [id number] [place] [address] May, Acute pain of right knee M25.561 and Right knee sprain S83.91XA [facility] [address] [place] [id number] [place] [address] 9[address]92- 6992 Apr, [place] [address] [place] [id number] [place] [address]12- 8302 Apr, [place] [address] [place] [id number] [place] [address] 27982- 1053 Apr, 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 ; Morbid obesity, unspecified obesity type E66.01 ; Acute exacerbation of chronic obstructive pulmonary disease (COPD) J44.1 ; Pain in right knee M25.561 ; Screening for breast cancer Z12.31 and Generalized anxiety disorder F41.1 [place] [address] [address] Mar, [facility] [address] [place], [place] [id number] [place] [address] Mar, Dysuria R30.0 and Acute cystitis without hematuria N30.00 [facility] [address] [place], [place] [id number] [place] [address] Feb, [facility] [place] [id number] [place] [address] Feb, Muscle cramps R25.2 and Seasonal allergic rhinitis, unspecified allergic rhinitis trigger J30.2 [place] [address] [place] [id number] [place] [address] 65[address] January, [place] [address] [place] [id number] [place] [address] 80365- 1179 January, Generalized anxiety disorder F41.1 [facility] [address] [place], [place] [id number] [place] [address]43 [address] January, Acute exacerbation of chronic obstructive pulmonary disease (COPD) J44.1 [facility] [address] [place] [id number] [place] [address] 05 Dec, 2016 Cramps, muscle, general R25.2 [place] [address] [place] [id number] [place] [address] 26433- [address] Dec, [place] [address] [address] Nov, Type 2 diabetes mellitus with hyperglycemia E11.65 and Non- insulin dependent type 2 diabetes mellitus E11.9 [place] [address] [address] Oct, Generalized anxiety disorder F41.1 [facility] [address] [address] 20 Oct, 2016 Vaginal candidiasis B37.3 [place] [address] 6[address] Oct, Right upper quadrant abdominal pain R10.11 and S/P cholecystectomy Z90.49 [place] [address] 14738- [address] Sep, Sore throat J02.9 and Right lower quadrant pain R10.31 [place] [address] [place] [id number] [place] [address] 46041- 8075 Sep, Generalized anxiety disorder F41.1 [place] [address] [place] [id number] [place] [address] 00452- 1513 Sep, [place] [address] [place] [id number] [place] [address] 45327- 8396 Sep, [place] [address] 140[address] Sep, Chest pain, unspecified type R07.9 ; Left lower quadrant pain R10.32 and Other acute postprocedural pain G89.18 [place] [address] [address]- [address] Sep, Fever in other diseases R50.81 ; Acute non-recurrent maxillary sinusitis J01.00 and Cough R05 [place] [address] 16636- [address] Sep, [facility] [address] [address] Sep, Dysuria R30.0 ; Sore throat J02.9 ; Chest pain, unspecified type R07.9 and Female genital lesion N94.9 [place] [address] [address] Aug, Drug-induced constipation K59.03 ; Left arm pain M79.602 and S/P cholecystectomy Z90.49 [facility] [place] [address] [address] 17 Aug, 2016 Sore throat J02.9 and Strep pharyngitis J02.0 [place] [address] [address]- [address] Aug, [place] [address] 8[address]85- [address] Aug, [place] [address] 209[address] Aug, [place] [address] 56[address] Jul, [place] [address] 22021[address] Jul, Type 2 diabetes mellitus with hyperglycemia E11.65 ; 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.33 ; Morbid obesity, unspecified obesity type E66.01 and Right upper quadrant abdominal pain R10.11 [facility] [address] [place] [id number] [place] [address] 14 Jul, 2016 Dysuria R30.0 ; Shortness of breath R06.02 ; Cardiomegaly I51.7 and COPD exacerbation J44.1 [place] [address] [place] [id number] [place] [address] 42533- 4883 Jul, Bipolar disorder, unspecified F31.9 and Generalized anxiety disorder F41.1 [place] [address] [place] [id number] [place] [address] 08858- 6240 Jun, [place] [id number] [place] [address] 22270- 7957 Jun, Sleep apnea, unspecified sleep apnea type G47.30 [place] [id number] [place] [address] 22734- 2378 Jun, Bipolar disorder, unspecified F31.9 and Generalized anxiety disorder F41.1 [place] [address] [place] [id number] [place] [address] 45520- 3983 28 May, 2015 Right lower quadrant abdominal pain 789.03 ; Diabetes mellitus type 2, uncontrolled 250.02 ; Bipolar disorder 296.80 ; COPD (chronic obstructive pulmonary disease) 496 ; Bug bite without infection 919.4 and Left upper quadrant pain 789.02 [place] [address] [place] [id number] [place] [address] 44621- 6605 16 May, 2015 Right lower quadrant abdominal pain 789.03 [place] [address] [place] [id number] [place] [address] 39034- 4295 10 May, 2015 [place] [id number] [place] [address] 48106- [address]99 Apr, [place] [address] [place] [id number] [place] [address] 02976- 4068 Apr, Skin infection 686.9 [place] [id number] [place] [address] 60494- 6669 Apr, Diabetes mellitus type 2, uncontrolled 250.02 ; Bipolar disorder 296.80 ; Hyperlipidemia 272.4 ; COPD (chronic obstructive pulmonary disease) 496 ; Sleep apnea in adult 327.23 and Routine adult health maintenance V70.0 [place] [id number] [place] [address] 83063- 1855 Apr, Bipolar disorder 296.80 IMMUNIZATIONS No Known Immunizations SOCIAL HISTORY Never Assessed REASON FOR VISIT colonoscopy fu--[facility] PLAN OF CARE Activity Details Follow Up 6 Months with Kenzie pérez [facility] Reason: VITAL SIGNS Height 69 in 2018-05-14 Weight 278.4 lbs 2018-05-14 Temperature 98.3 degrees Fahrenheit 2018-05-14 Heart Rate 88 bpm 2018-05-14 Respiratory Rate 20 2018-05-14 BMI 41.11 kg/m2 2018-05-14 Blood pressure systolic 112 mmHg 2018-05-14 Blood pressure diastolic 82 mmHg 2018-05-14 MEDICATIONS Medication Instructions Dosage Frequency Start Date End Date Duration Status Prozac 40 mg Orally Once a day 1 capsule in the morning 24h 90 days Active Sklice 0.5 % Externally once as directed Apr, 1 dose Active Breo Ellipta 100-25 MCG/INH Inhalation Once a day 1 puff 24h Active Omeprazole 40 mg Orally Once a day 1 capsule 24h Active Albuterol Sulfate 108 (90 Base) MCG/ACT Inhalation every 4 hrs 2 puff as needed 4h Active Flonase Allergy Relief 50 MCG/ACT Nasally twice a day 1 spray in each nostril 12h Active Albuterol Sulfate (2.5 MG/3ML) 0.083% Inhalation Three times a day 3 ml 8h Active Diflucan 150 MG Orally q72 hrs 1 tablet Apr, Apr, 5 days Active Vicodin ES 7.5-300 MG Orally every 6 hrs 1 tablet as needed 6h Active Metformin HCl 1000 MG Orally twice a day 1 tablet 12h 30 days Active RESULTS Name Result Date Reference Range A1C (IN HOUSE) 2018-05-14 A1C IN HOUSE 6.6 4.3 - 5.6 % Previous A1c 6.3 Lot [id number] Exp date 12/16 PROCEDURES Procedure Date Ordered Result Body Site GLYCATED HEMOGLOBIN TEST May 14, 2018 [facility] VISIT ESTABLISHED PATIENT May 14, 2018 INSTRUCTIONS MEDICATIONS ADMINISTERED No Known Medications [...] 09/19/2016 Surgical History Right knee Scope 2017 Surgical History Left knee meniscus repair 04/2018 Hospitalization History Urinary tract infection 2014 Hospitalization History past surgeries
--- OUTSIDE RECORDS SUMMARY | 2018-10-29 15:41 | XMS REPORT ---
Author Author WING BARKSDALE Organization [facility] Address [address] [place] [address] Care Team Providers Care Software Development Project Manager Name Role Phone WING BARKSDALE Unavailable PROBLEMS Type Condition ICD9-CM Code [id number] Code Onset Dates Condition Status SNOMED Code Problem 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.33 Active 31872145 Problem Cardiomegaly I51.7 Active 5983023 Problem History of arthroplasty of left knee Z96.652 Active 974573747 Problem Chronic bronchitis, unspecified chronic bronchitis type J42 Active 80711394 Problem Type 2 diabetes mellitus with hyperglycemia E11.65 Active 776986389055172 Problem 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 Active 41139025 Problem BMI 40.0-44.9, adult Z68.41 Active 642008321 Problem Other chronic pain G89.29 Active 11023909 ALLERGIES Substance Reaction Event Type Date Status Penicillin V Potassium Unknown Drug Allergy Jun, Active Doxycycline Hyclate hives Drug Allergy Jun, Active IV contrast dye Unknown Non Drug Allergy Jun, Active ENCOUNTERS Encounter Location Date Diagnosis [id number] [facility] [place] [place] [id number] Jun, History of arthroplasty of left knee Z96.652 [facility] [address] [facility] [id number] [address] May, Right upper quadrant abdominal pain R10.11 ; Abdominal pain R10.9 and BMI 40.0-44.9, adult Z68.41 [facility] [address] [facility] [id number] [address] Apr, 2018 Right lower quadrant abdominal pain R10.31 ; 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.33 ; Type 2 diabetes mellitus with hyperglycemia E11.65 ; BMI 40.0-44.9, adult Z68.41 ; Head lice B85.0 and Yeast infection B37.9 [facility] [address] [address] Mar, Medicare annual wellness visit, initial Z00.00 ; BMI 40.0- 44.9, adult Z68.41 ; Type 2 diabetes mellitus with hyperglycemia E11.65 ; Cardiomegaly I51.7 ; 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.33 ; Chronic bronchitis, unspecified chronic bronchitis type J42 ; Other chronic pain G89.29 ; Dysuria R30.0 and Encounter for immunization Z23 [place] [id number] [place] [id number] [place] [address] Mar, [place] [address] [place] [id number] [place] [address]42[address] Dec, [place] [address] [place] [id number] [place] [address] Dec, Type 2 diabetes mellitus with hyperglycemia E11.65 ; Non- insulin dependent type 2 diabetes mellitus E11.9 ; BMI 40.0-44.9, adult Z68.41 ; Chronic bronchitis, unspecified chronic bronchitis type J42 ; Muscle cramp R25.2 and Incisional hernia, without obstruction or gangrene K43.2 [place] [address] [place] [id number] [place] [address] Nov, [facility] [address], [place] [address] Nov, Abdominal pain, unspecified abdominal location R10.9 ; Constipation, unspecified constipation type K59.00 and BMI 40.0-44.9, adult Z68.41 [place] [address] [place] [address] [address] Nov, [place] [address] [place] [id number] [place] [address] Oct, [place] [address] [place] [address] [address] Oct, [place] [address] [place] [id number] [place] [address] 05 Oct, 2017 Breast pain, left N64.4 and BMI 40.0-44.9, adult Z68.41 [facility] [place] [address] [address] [id number] [place] [address] Sep, BMI 40.0-44.9, adult Z68.41 and Multiple wounds of skin R23.8 [facility] [address] [address] Sep, Body aches R52 ; Dysuria R30.0 and Viral URI J06.[address] [address] Aug, Nausea R11.0 ; Other viral agents as the cause of diseases classified elsewhere B97.89 and Acute upper respiratory infection, unspecified J06.[address] [address] Aug, [place] [address] [address] Aug, [facility] [place] [id number] [place] [address] Jul, Sore throat J02.9 and BMI 40.0-44.9, adult Z68.41 [place] [address] [address] Jun, Herniation through surgical site K43.2 ; Leg numbness R20.0 ; Acute pain of left knee M25.562 ; Fall, initial encounter W19.XXXA ; Non- insulin dependent type 2 diabetes mellitus E11.9 ; Morbid obesity, unspecified obesity type E66.01 ; Other chronic pain G89.29 and Unspecified abdominal pain R10.9 [facility] [place] [id number] [place] [address] Jun, Muscle strain of left shoulder, initial encounter S46.912A [place] [address], [place] [address] May, [facility] [address] [place] [id number] [place] [address]180[address] May, [facility] [address] [address] [id number] [place] [address] May, Acute pain of right knee M25.561 and Right knee sprain S83.91XA [facility] [address] [place] [id number] [place] [address]307- 6[address] Apr, [facility] [address] [place] [id number] [place] [address] 20068[address] 9[address] Apr, [place] [address] [place] [id number] [place] [address] 86149- 3793 Apr, 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 ; Morbid obesity, unspecified obesity type E66.01 ; Acute exacerbation of chronic obstructive pulmonary disease (COPD) J44.1 ; Pain in right knee M25.561 ; Screening for breast cancer Z12.31 and Generalized anxiety disorder F41.1 [place] [address] [place] [id number] [place] [address]38[address] Mar, [facility] [place] [address] [place] [id number] [place] [address] Mar, Dysuria R30.0 and Acute cystitis without hematuria N30.00 [facility] [address] [place] [id number] [place] [address] Feb, [facility] [address] [place] [id number] [place] [address] Feb, Muscle cramps R25.2 and Seasonal allergic rhinitis, unspecified allergic rhinitis trigger J30.2 [facility] [address] [place] [id number] [place] [address] 06043[address] January, [facility] [address] [place] [id number] [place] [address] 29360[address] 6[address] January, Generalized anxiety disorder F41.1 [facility] [id number] [place] [address]71 [address] January, Acute exacerbation of chronic obstructive pulmonary disease (COPD) J44.1 [facility] [address] [place] [id number] [place] [address]29 [address] Dec, Cramps, muscle, general R25.2 [facility] [address] [address] Dec, [facility] [address] [place] [id number] [place] [address] 36629[address] 2317 Nov, Type 2 diabetes mellitus with hyperglycemia E11.65 and Non- insulin dependent type 2 diabetes mellitus E11.9 [place] [address] [place] [id number] [place] [address] 26237[address] 3[address] Oct, Generalized anxiety disorder F41.1 [facility] [address] [place] [id number] [place] [address] 15396 [address]2648 Oct, Vaginal candidiasis B37.3 [facility] [address] [place] [id number] [place] [address] 12266- 6889 Oct, Right upper quadrant abdominal pain R10.11 and S/P cholecystectomy Z90.49 [place] [address] [place] [id number] [place] [address] 37[address] 0440 Sep, Sore throat J02.9 and Right lower quadrant pain R10.31 [facility] [address] [place] [id number] [place] [address] 69702- 8332 Sep, Generalized anxiety disorder F41.1 [place] [address] [place] [id number] [place] [address] 05063- 5166 Sep, [facility] [address] [place] [id number] [place] [address] 87481- 8566 Sep, [place] [address] [place] [id number] [place] [address]978[address] 59[address] Sep, Chest pain, unspecified type R07.9 ; Left lower quadrant pain R10.32 and Other acute postprocedural pain G89.18 [place] [address] [address] Sep, Fever in other diseases R50.81 ; Acute non-recurrent maxillary sinusitis J01.00 and Cough R05 [place] [address] [address] Sep, [facility] [place] [address] [address] Sep, Dysuria R30.0 ; Sore throat J02.9 ; Chest pain, unspecified type R07.9 and Female genital lesion N94.9 [place] [address] [place] [id number] [place] [address]22[address] 2551 Aug, Drug-induced constipation K59.03 ; Left arm pain M79.602 and S/P cholecystectomy Z90.49 [facility] [place] [address] [address] [id number] [place] [address] 50974 [address] 17 Aug, 2016 Sore throat J02.9 and Strep pharyngitis J02.0 [place] [address] [place] [id number] [place] [address] 26896- 5143 14 Aug, 2016 [place] [address] [place] [id number] [place] [address] 02944- 2354 Aug, [place] [address] [place] [id number] [place] [address] 07434- 5467 Aug, [place] [address] [place] [id number] [place] [address] 36553- 2250 Jul, [place] [address] [address] Jul, Type 2 diabetes mellitus with hyperglycemia E11.65 ; 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.33 ; Morbid obesity, unspecified obesity type E66.01 and Right upper quadrant abdominal pain R10.11 [facility] [address] [place] [id number] [place] [address] 49900 [address]8560 14 Jul, 2016 Dysuria R30.0 ; Shortness of breath R06.02 ; Cardiomegaly I51.7 and COPD exacerbation J44.1 [facility] [address] [place] [id number] [place] [address] 66847- 8697 02 Jul, 2015 Bipolar disorder, unspecified F31.9 and Generalized anxiety disorder F41.1 [place] [address] [address]- [address] Jun, [place] [address] [address]- [address] Jun, Sleep apnea, unspecified sleep apnea type G47.30 [place] [address] [place] [id number] [place] [address] 66200- 2920 Jun, Bipolar disorder, unspecified F31.9 and Generalized anxiety disorder F41.1 [place] [address] [address]- [address] 28 May, 2015 Right lower quadrant abdominal pain 789.03 ; Diabetes mellitus type 2, uncontrolled 250.02 ; Bipolar disorder 296.80 ; COPD (chronic obstructive pulmonary disease) 496 ; Bug bite without infection 919.4 and Left upper quadrant pain 789.02 [place] [address] [place] [id number] [place] [address] 70078- 1115 16 May, 2015 Right lower quadrant abdominal pain 789.03 [place] [address] [place] [id number] [place] [address] 91864- 7761 10 May, 2015 [place] [address] [place] [id number] [place] [address] 89079- 2780 Apr, [place] [address] 06[address]- [address] Apr, Skin infection 686.9 [place] [address] [place] [id number] [place] [address] 30687- 7750 Apr, Diabetes mellitus type 2, uncontrolled 250.02 ; Bipolar disorder 296.80 ; Hyperlipidemia 272.4 ; COPD (chronic obstructive pulmonary disease) 496 ; Sleep apnea in adult 327.23 and Routine adult health maintenance V70.0 [facility] [address] [facility] [id number] [place] [address] Apr, Bipolar disorder 296.80 IMMUNIZATIONS No Known Immunizations SOCIAL HISTORY Never Assessed REASON FOR VISIT Custodial Admission PLAN OF CARE Activity Details Follow Up prn Reason: VITAL SIGNS MEDICATIONS Medication Instructions Dosage Frequency Start Date End Date Duration Status Metformin HCl 1000 MG Orally twice a day 1 tablet 12h 30 days Active Vicodin ES 7.5-300 MG Orally every 6 hrs 1 tablet as needed 6h Active Albuterol Sulfate (2.5 MG/3ML) 0.083% Inhalation Three times a day 3 ml 8h Active Omeprazole 40 mg Orally Once a day 1 capsule 24h 90 Active Prozac 40 mg Orally Once a day 1 capsule in the morning 24h 90 days Active Albuterol Sulfate 108 (90 Base) MCG/ACT Inhalation every 4 hrs 2 puff as needed 4h Active Breo Ellipta 100-25 MCG/INH Inhalation Once a day 1 puff 24h Active Flonase Allergy Relief 50 MCG/ACT Nasally twice a day 1 spray in each nostril 12h Active RESULTS No Results PROCEDURES Procedure Date Ordered Result Body Site [facility] VISIT ESTABLISHED PATIENT Jul 21, 2018 INSTRUCTIONS MEDICATIONS ADMINISTERED No Known Medications [...]
--- OUTSIDE RECORDS SUMMARY | 2018-10-29 15:41 | XMS REPORT ---
Author Author WING BARKSDALE Organization [facility] Address [address] [place] [address] Care Team Providers Care Marketing Secretary Name Role Phone WING BARKSDALE Unavailable PROBLEMS Type Condition ICD9-CM Code SNU65-PT Code Onset Dates Condition Status SNOMED Code Problem 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.33 Active 92744216 Problem Cardiomegaly I51.7 Active 5992631 Problem History of arthroplasty of left knee Z96.652 Active 938843200 Problem Chronic bronchitis, unspecified chronic bronchitis type J42 Active 42606454 Problem Type 2 diabetes mellitus with hyperglycemia E11.65 Active 434226992944956 Problem 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 Active 75462606 Problem BMI 40.0-44.9, adult Z68.41 Active 974610099 Problem Other chronic pain G89.29 Active 46471052 ALLERGIES No Information ENCOUNTERS Encounter Location Date Diagnosis [facility] [id number] [place] [address] 86558- 4106 Jul, [facility] [id number] [place] [address] 58894- 2753 Jul, [facility] [id number] [place] [address] 01201- 3718 Jul, Other chronic pain G89.29 [facility] [address] [place], [place] [id number] Jun, History of arthroplasty of left knee Z96.652 [facility] [id number] [place] [address] 32071 -6655 17 May, 2018 Right upper quadrant abdominal pain R10.11 ; Abdominal pain R10.9 and BMI 40.0-44.9, adult Z68.41 [facility] [id number] [place] [address] 69924- 6573 Apr, Right lower quadrant abdominal pain R10.31 ; 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.33 ; Type 2 diabetes mellitus with hyperglycemia E11.65 ; BMI 40.0-44.9, adult Z68.41 ; Head lice B85.0 and Yeast infection B37.9 [facility] [address] [place] [address] 72982- 3100 Mar, Medicare annual wellness visit, initial Z00.00 ; BMI 40.0- 44.9, adult Z68.41 ; Type 2 diabetes mellitus with hyperglycemia E11.65 ; Cardiomegaly I51.7 ; 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.33 ; Chronic bronchitis, unspecified chronic bronchitis type J42 ; Other chronic pain G89.29 ; Dysuria R30.0 and Encounter for immunization Z23 [place] [id number] [place] [address] 18177- 7130 Mar, [place] [address] 64437- 9449 Dec, [place] [id number] [place] [address] 43542- 0612 Dec, Type 2 diabetes mellitus with hyperglycemia E11.65 ; Non- insulin dependent type 2 diabetes mellitus E11.9 ; BMI 40.0-44.9, adult Z68.41 ; Chronic bronchitis, unspecified chronic bronchitis type J42 ; Muscle cramp R25.2 and Incisional hernia, without obstruction or gangrene K43.2 [place] [id number] [place] [address] 65337- 6110 Nov, [facility] [id number] [place] [address] 91038 -9097 Nov, Abdominal pain, unspecified abdominal location R10.9 ; Constipation, unspecified constipation type K59.00 and BMI 40.0-44.9, adult Z68.41 [place] [id number] [place] [address] 62744- 4294 Nov, [place] [address] 11466- 7637 16 Oct, 2017 [place] [address] 99766- 9448 08 Oct, 2017 [place] [address] 14015- 8191 05 Oct, 2017 Breast pain, left N64.4 and BMI 40.0-44.9, adult Z68.41 [facility] [address] [address]64 Sep, BMI 40.0-44.9, adult Z68.41 and Multiple wounds of skin R23.8 [facility] [address] 76214 -6687 Sep, Body aches R52 ; Dysuria R30.0 and Viral URI J06.[address] 11273- 6071 Aug, Nausea R11.0 ; Other viral agents as the cause of diseases classified elsewhere B97.89 and Acute upper respiratory infection, unspecified J06.[address] 35[address]- 3029 Aug, [address] 41209- 6951 Aug, [facility] [place] [address] [address] Jul, Sore throat J02.9 and BMI 40.0-44.9, adult Z68.[address] 39887- 8891 Jun, Herniation through surgical site K43.2 ; Leg numbness R20.0 ; Acute pain of left knee M25.562 ; Fall, initial encounter W19.XXXA ; Non- insulin dependent type 2 diabetes mellitus E11.9 ; Morbid obesity, unspecified obesity type E66.01 ; Other chronic pain G89.29 and Unspecified abdominal pain R10.9 [facility] [place] [id number] [place] [address] 89172 -9016 Jun, Muscle strain of left shoulder, initial encounter S46.912A [place] [id number] [place] [address] 74076- 7148 May, [place] [address] 21425- 6602 May, [facility] [place] [address] 92003 -2598 May, Acute pain of right knee M25.561 and Right knee sprain S83.91XA [place] [id number] [place] [address] 64721- 5371 Apr, [place] [address] 73219- 1053 Apr, [place] [id number] [place] [address] 43874- 0328 Apr, 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 ; Morbid obesity, unspecified obesity type E66.01 ; Acute exacerbation of chronic obstructive pulmonary disease (COPD) J44.1 ; Pain in right knee M25.561 ; Screening for breast cancer Z12.31 and Generalized anxiety disorder F41.1 [place] [id number] [place] [address] 21263- 1959 Mar, [facility] [place] [id number] [place] [address] 74193 -6430 Mar, Dysuria R30.0 and Acute cystitis without hematuria N30.00 [facility] [place] [id number] [place] [address] 00123 -2982 Feb, [facility] [place] [id number] [place] [address] 47890 -5343 Feb, Muscle cramps R25.2 and Seasonal allergic rhinitis, unspecified allergic rhinitis trigger J30.2 [facility] [id number] [place] [address] 44610- 2773 January, [facility] [address] 03660- 9953 January, Generalized anxiety disorder F41.1 [facility] [id number] [place] [address] 65126 -6903 January, Acute exacerbation of chronic obstructive pulmonary disease (COPD) J44.1 [facility] [id number] [place] [address] 68331 -3548 Dec, Cramps, muscle, general R25.2 [place] [address] 93081- 5082 Dec, [place] [address] 83204- 3844 Nov, Type 2 diabetes mellitus with hyperglycemia E11.65 and Non- insulin dependent type 2 diabetes mellitus E11.9 [place] [id number] [place] [address] 26186- 4843 Oct, Generalized anxiety disorder F41.1 [facility] [id number] [place] [address] 53128 -4655 Oct, Vaginal candidiasis B37.3 [place] [id number] [place] [address] 59566- 9993 Oct, Right upper quadrant abdominal pain R10.11 and S/P cholecystectomy Z90.49 [place] [id number] [place] [address] 05130- 2524 Sep, Sore throat J02.9 and Right lower quadrant pain R10.31 [place] [id number] [place] [address] 03759- 4662 Sep, Generalized anxiety disorder F41.1 [place] [id number] [place] [address] 44170- 8272 Sep, [place] [id number] [place] [address] 41754- 7150 Sep, [facility] [address] 98562- 9498 Sep, Chest pain, unspecified type R07.9 ; Left lower quadrant pain R10.32 and Other acute postprocedural pain G89.18 [place] [address] 70779- 2844 Sep, Fever in other diseases R50.81 ; Acute non-recurrent maxillary sinusitis J01.00 and Cough R05 [place] [address] 77575- 0438 Sep, [facility] [id number] [place] [address] 10617 -3595 Sep, Dysuria R30.0 ; Sore throat J02.9 ; Chest pain, unspecified type R07.9 and Female genital lesion N94.9 [place] [id number] [place] [address] 17093- 1727 Aug, Drug-induced constipation K59.03 ; Left arm pain M79.602 and S/P cholecystectomy Z90.49 [facility] [id number] [place] [address] 19209 -7946 Aug, Sore throat J02.9 and Strep pharyngitis J02.0 [place] [id number] [place] [address] 79193- 1861 Aug, [place] [id number] [place] [address] 85024- 3436 Aug, [place] [address] 89761- 8060 Aug, [place] [id number] [place] [address] 25755- 4917 Jul, [place] [address] 36696- 6339 28 Jul, 2016 Type 2 diabetes mellitus with hyperglycemia E11.65 ; 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.33 ; Morbid obesity, unspecified obesity type E66.01 and Right upper quadrant abdominal pain R10.11 [facility] [id number] [place] [address] 40476 -3510 14 Jul, 2016 Dysuria R30.0 ; Shortness of breath R06.02 ; Cardiomegaly I51.7 and COPD exacerbation J44.1 [place] [id number] [place] [address] 33768- 9634 Jul, Bipolar disorder, unspecified F31.9 and Generalized anxiety disorder F41.1 [place] [address] 94965- 6723 Jun, [place] [address] 59205- 1865 Jun, Sleep apnea, unspecified sleep apnea type G47.30 [facility] [id number] [place] [address] 31706- 0338 Jun, Bipolar disorder, unspecified F31.9 and Generalized anxiety disorder F41.1 [facility] [id number] [place] [address] 44130- 8906 28 May, 2015 Right lower quadrant abdominal pain 789.03 ; Diabetes mellitus type 2, uncontrolled 250.02 ; Bipolar disorder 296.80 ; COPD (chronic obstructive pulmonary disease) 496 ; Bug bite without infection 919.4 and Left upper quadrant pain 789.02 [facility] [id number] [place] [address] 78135- 3168 16 May, 2015 Right lower quadrant abdominal pain 789.03 [place] [address] 87376- 2059 10 May, 2015 [place] [id number] [place] [address] 74282- 0768 Apr, [facility] [address] 40452- 3066 Apr, Skin infection 686.9 [facility] [address] [facility] [id number] [place] [address] Apr, Diabetes mellitus type 2, uncontrolled 250.02 ; Bipolar disorder 296.80 ; Hyperlipidemia 272.4 ; COPD (chronic obstructive pulmonary disease) 496 ; Sleep apnea in adult 327.23 and Routine adult health maintenance V70.0 [facility] [address] [facility] [id number] [address]- [address]686 Apr, Bipolar disorder 296.80 IMMUNIZATIONS No Known Immunizations SOCIAL HISTORY Never Assessed REASON FOR VISIT medication change per pharmacy recommendation, penitentiary patient. Stop Percocet --THIERNO Rai PLAN OF CARE VITAL SIGNS MEDICATIONS Medication Instructions Dosage Frequency Start Date End Date Duration Status Ibuprofen 600 MG Orally Three times a day 1 tablet with food or milk as needed 8h Jul, Active Hydrocodone-Acetaminophen 5-325 MG Orally every 6 hrs 1 tablet as needed 6h Jul, Active RESULTS No Results PROCEDURES No Known [...]
--- OUTSIDE RECORDS SUMMARY | 2018-10-29 15:42 | XMS REPORT ---
Author Author NICKY THOMPSON Organization [facility] Address [address] [place] [address] Care Team Providers Care Radio Message Router Name Role Phone NICKY THOMPSON Unavailable PROBLEMS Type Condition ICD9-CM Code [id number] Code Onset Dates Condition Status SNOMED Code Problem Cardiomegaly I51.7 Active 4662475 Problem Chronic bronchitis, unspecified chronic bronchitis type J42 Active 97377622 Problem BMI 40.0-44.9, adult Z68.41 Active 327080149 Problem 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.33 Active 55672945 Problem 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 Active 88031486 Problem Other chronic pain G89.29 Active 59065042 Problem Type 2 diabetes mellitus with hyperglycemia E11.65 Active [id number] ALLERGIES Substance Reaction Event Type Date Status Penicillin V Potassium Unknown Drug Allergy Mar, Active Doxycycline Hyclate hives Drug Allergy Mar, Active IV contrast dye Unknown Non Drug Allergy Mar, Active ENCOUNTERS Encounter Location Date Diagnosis [facility] [address] [facility] [id number] [address] 16 Apr, 2018 Right lower quadrant abdominal pain R10.31 ; 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.33 ; Type 2 diabetes mellitus with hyperglycemia E11.65 ; BMI 40.0-44.9, adult Z68.41 ; Head lice B85.0 and Yeast infection B37.9 [facility] [address] [facility] [id number] [address] 10 Mar, 2018 Medicare annual wellness visit, initial Z00.00 ; BMI 40.0- 44.9, adult Z68.41 ; Type 2 diabetes mellitus with hyperglycemia E11.65 ; Cardiomegaly I51.7 ; 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.33 ; Chronic bronchitis, unspecified chronic bronchitis type J42 ; Other chronic pain G89.29 ; Dysuria R30.0 and Encounter for immunization Z23 [place] [address] [place] [id number] [place] [address] 41430- 7105 Mar, [place] [address] [address]65- 3474 Dec, [place] [address] 84589- 3364 Dec, Type 2 diabetes mellitus with hyperglycemia E11.65 ; Non- insulin dependent type 2 diabetes mellitus E11.9 ; BMI 40.0-44.9, adult Z68.41 ; Chronic bronchitis, unspecified chronic bronchitis type J42 ; Muscle cramp R25.2 and Incisional hernia, without obstruction or gangrene K43.2 [place] [address] 63061- 4708 Nov, [facility] [place] [address] 46251 -7083 Nov, Abdominal pain, unspecified abdominal location R10.9 ; Constipation, unspecified constipation type K59.00 and BMI 40.0-44.9, adult Z68.41 [place] [address] 62994- 1431 Nov, [place] [address] 22433- 6295 Oct, [place] [address] 17148- 8727 Oct, [place] [address] 30579- 4498 Oct, Breast pain, left N64.4 and BMI 40.0-44.9, adult Z68.41 [facility] [place] [address] 72457 -6923 Sep, BMI 40.0-44.9, adult Z68.41 and Multiple wounds of skin R23.8 [facility] [address] 68[address]6167 Sep, Body aches R52 ; Dysuria R30.0 and Viral URI J06.9 [place] [id number] [place] [address] 85941- 9992 Aug, Nausea R11.0 ; Other viral agents as the cause of diseases classified elsewhere B97.89 and Acute upper respiratory infection, unspecified J06.[address] 37622- 5889 Aug, [address] 27756- 0788 Aug, [facility] [place] [id number] [place] [address] 42047 -8402 Jul, Sore throat J02.9 and BMI 40.0-44.9, adult Z68.[address] 81907- 4581 Jun, Herniation through surgical site K43.2 ; Leg numbness R20.0 ; Acute pain of left knee M25.562 ; Fall, initial encounter W19.XXXA ; Non- insulin dependent type 2 diabetes mellitus E11.9 ; Morbid obesity, unspecified obesity type E66.01 ; Other chronic pain G89.29 and Unspecified abdominal pain R10.9 [facility] [place] [id number] [place] [address] 02964 -6998 Jun, Muscle strain of left shoulder, initial encounter S46.912A [place] [id number] [place] [address] 33793- 8717 May, [place] [id number] [place] [address] 32152- 0250 May, [facility] [place] [id number] [place] [address] 84146 -6582 May, Acute pain of right knee M25.561 and Right knee sprain S83.91XA [address] [place] [address] 5[address] Apr, [facility] [address] [place] [id number] [place] [address] 08984- 4419 Apr, [facility] [address] [place] [id number] [place] [address] 40340- 1242 Apr, 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 ; Morbid obesity, unspecified obesity type E66.01 ; Acute exacerbation of chronic obstructive pulmonary disease (COPD) J44.1 ; Pain in right knee M25.561 ; Screening for breast cancer Z12.31 and Generalized anxiety disorder F41.1 [place] [address] [place] [id number] [place] [address] 87920- 9854 Mar, [facility] [place] [address] [place] [id number] [place] [address] 00489 -1120 Mar, Dysuria R30.0 and Acute cystitis without hematuria N30.00 [facility] [address] [place] [id number] [place] [address] 67385 -4821 Feb, [facility] [place] [address] [place] [id number] [place] [address] 58057 -0107 Feb, Muscle cramps R25.2 and Seasonal allergic rhinitis, unspecified allergic rhinitis trigger J30.2 [place] [address] [place] [id number] [place] [address] 82029- 3775 January, [facility] [address] [place] [id number] [place] [address] 55015- 8579 January, Generalized anxiety disorder F41.1 [facility] [address] [place] [id number] [place] [address] 10018 -3069 January, Acute exacerbation of chronic obstructive pulmonary disease (COPD) J44.1 [facility] [address] [place] [id number] [place] [address] 23578 -5731 Dec, Cramps, muscle, general R25.2 [place] [address] [place] [id number] [place] [address] 55114- 9810 Dec, [place] [address] [place] [id number] [place] [address] 19726- 2846 Nov, Type 2 diabetes mellitus with hyperglycemia E11.65 and Non- insulin dependent type 2 diabetes mellitus E11.9 [place] [address] [place] [id number] [place] [address] 84308- 1684 Oct, Generalized anxiety disorder F41.1 [facility] [place] [address] 63198 -0376 Oct, Vaginal candidiasis B37.3 [place] [address] 19313- 6009 Oct, Right upper quadrant abdominal pain R10.11 and S/P cholecystectomy Z90.49 [place] [address] 84595- 6833 Sep, Sore throat J02.9 and Right lower quadrant pain R10.31 [place] [address] 61613- 9156 Sep, Generalized anxiety disorder F41.1 [place] [address] 28439- 7931 Sep, [place] [address] 04000- 9059 Sep, [place] [address] 15937- 5105 Sep, Chest pain, unspecified type R07.9 ; Left lower quadrant pain R10.32 and Other acute postprocedural pain G89.18 [place] [address] 80337- 0036 Sep, Fever in other diseases R50.81 ; Acute non-recurrent maxillary sinusitis J01.00 and Cough R05 [place] [address] 18868- 7472 Sep, [facility] [address] [place] [address] 40371 -9905 Sep, Dysuria R30.0 ; Sore throat J02.9 ; Chest pain, unspecified type R07.9 and Female genital lesion N94.9 [facility] [address] [place] [id number] [place] [address] 65795- 7400 27 Aug, 2016 Drug-induced constipation K59.03 ; Left arm pain M79.602 and S/P cholecystectomy Z90.49 [facility] [address] [place] [id number] [place] [address] 84350 -0455 17 Aug, 2016 Sore throat J02.9 and Strep pharyngitis J02.0 [place] [address] [place] [id number] [place] [address] 79986- 0714 14 Aug, 2016 [place] [address] 33269- 1549 Aug, [place] [address] 99143- 7973 Aug, [place] [address] 60699- 5084 28 Jul, 2016 [place] [address] [place] [id number] [place] [address] 22057- 6471 28 Jul, 2016 Type 2 diabetes mellitus with hyperglycemia E11.65 ; 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.33 ; Morbid obesity, unspecified obesity type E66.01 and Right upper quadrant abdominal pain R10.11 [facility] [address] [place] [id number] [place] [address] 10161 -2231 14 Jul, 2016 Dysuria R30.0 ; Shortness of breath R06.02 ; Cardiomegaly I51.7 and COPD exacerbation J44.1 [facility] [address] [place] [id number] [place] [address] 09168- 8358 02 Jul, 2015 Bipolar disorder, unspecified F31.9 and Generalized anxiety disorder F41.1 [place] [address] 80884- 3307 Jun, [place] [address] [place] [address] 05747- 3336 Jun, Sleep apnea, unspecified sleep apnea type G47.30 [place] [address] [place] [id number] [place] [address] 56364- 3832 Jun, Bipolar disorder, unspecified F31.9 and Generalized anxiety disorder F41.1 [place] [id number] [place] [address] 06803- 4211 May, Right lower quadrant abdominal pain 789.03 ; Diabetes mellitus type 2, uncontrolled 250.02 ; Bipolar disorder 296.80 ; COPD (chronic obstructive pulmonary disease) 496 ; Bug bite without infection 919.4 and Left upper quadrant pain 789.02 [place] [address] [place] [id number] [place] [address] 44121- 7729 May, Right lower quadrant abdominal pain 789.03 [place] [address] [place] [id number] [place] [address] 59224- 4594 May, [place] [address] [place] [id number] [place] [address] 82310- 1288 Apr, [place] [address] [place] [id number] [place] [address] 14278- 5878 Apr, Skin infection 686.9 [place] [id number] [place] [address] 55390- 3153 Apr, Diabetes mellitus type 2, uncontrolled 250.02 ; Bipolar disorder 296.80 ; Hyperlipidemia 272.4 ; COPD (chronic obstructive pulmonary disease) 496 ; Sleep apnea in adult 327.23 and Routine adult health maintenance V70.0 [place] [id number] [place] [address] 45893- 2482 Apr, Bipolar disorder 296.80 IMMUNIZATIONS Vaccine Route Administration Date Status PCV 13 IM Intramuscular April 07, 2018 Administered SOCIAL HISTORY Never Assessed REASON FOR VISIT Medicare AWV - Initial Visit-[facility] PLAN OF CARE Activity Details Follow Up 1 Year with [facility] for MAWV, 3 months for [facility] DM/ENRRIQUE Reason: VITAL SIGNS Height 69 in 2018-04-07 Weight 282 lbs 2018-04-07 Temperature 98.2 degrees Fahrenheit 2018-04-07 Heart Rate 94 bpm 2018-04-07 Respiratory Rate 20 2018-04-07 BMI 41.64 kg/m2 2018-04-07 Blood pressure systolic 120 mmHg 2018-04-07 Blood pressure diastolic 82 mmHg 2018-04-07 MEDICATIONS Medication Instructions Dosage Frequency Start Date [...] in each nostril 12h Active Albuterol Sulfate 108 (90 Base) MCG/ACT Inhalation every 4 hrs 2 puff as needed 4h Active Metformin HCl 1000 MG Orally twice a day 1 tablet 12h 30 days Active Lipitor 10 mg Orally Once a day 1 tablet 24h Not-Taking Omeprazole 40 mg Orally Once a day 1 capsule 24h Active RESULTS Name Result Date Reference Range UA LONG DIP (IN HOUSE) 2018-04-07 Lot # [id number] Exp date 12/2018 Clarity clear Color dk yellow Odor yes GLU 1+ ZANDER 1+ KET negative SG >=1.030 BLO negative pH 5.0 Protein negative URO 0.2 NIT negative GUSTAVO negative Lot # Exp date PROCEDURES Procedure Date Ordered Result Body Site FQ VISIT IPPE/AWV April 07, 2018 ANNUAL JONATHAN VST; LENNIE PPS INIT April 07, 2018 SINGLE IMMUNIZATION ADMIN April 07, 2018 PT TOBACCO SCREEN RCVD TLK April 07, 2018 FALL RISK ASSESSMENT DOCD April 07, 2018 PCV 13 April 07, 2018 URINALYSIS, AUTO, W/O SCOPE April 07, 2018 INSTRUCTIONS MEDICATIONS ADMINISTERED No Known Medications [...]
--- OUTSIDE RECORDS SUMMARY | 2018-10-29 15:42 | XMS REPORT ---
Author Author KYLAH PATRIC [facility] Address [address] [place] [address] Care Team Providers Care Biology Internship Name Role Phone JOSE M MONTEROY Unavailable PROBLEMS Type Condition ICD9-CM Code SXF22-FL Code Onset Dates Condition Status SNOMED Code Problem Cardiomegaly I51.7 Active 8775082 Problem Chronic bronchitis, unspecified chronic bronchitis type J42 Active 95031955 Problem BMI 40.0-44.9, adult Z68.41 Active 116673422 Problem 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.33 Active 63986424 Problem 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 Active 73112538 Problem Other chronic pain G89.29 Active 31660627 Problem Type 2 diabetes mellitus with hyperglycemia E11.65 Active [id number] ALLERGIES No Information ENCOUNTERS Encounter Location Date Diagnosis [place] [address] [place] [address] 25368- 9121 Apr, Right lower quadrant abdominal pain R10.31 ; 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.33 ; Type 2 diabetes mellitus with hyperglycemia E11.65 ; BMI 40.0-44.9, adult Z68.41 ; Head lice B85.0 and Yeast infection B37.9 [place] [address] [place] [address] 39898- 4542 Mar, Medicare annual wellness visit, initial Z00.00 ; BMI 40.0- 44.9, adult Z68.41 ; Type 2 diabetes mellitus with hyperglycemia E11.65 ; Cardiomegaly I51.7 ; 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.33 ; Chronic bronchitis, unspecified chronic bronchitis type J42 ; Other chronic pain G89.29 ; Dysuria R30.0 and Encounter for immunization Z23 [place] [address] [place] [id number] [place] [address] 76263- 8818 Mar, [place] [address] [id number] [address] 2699 Dec, [place] [address] [place] [id number] [place] [address] 16546- 1867 02 Dec, 2017 Type 2 diabetes mellitus with hyperglycemia E11.65 ; Non- insulin dependent type 2 diabetes mellitus E11.9 ; BMI 40.0-44.9, adult Z68.41 ; Chronic bronchitis, unspecified chronic bronchitis type J42 ; Muscle cramp R25.2 and Incisional hernia, without obstruction or gangrene K43.2 [place] [address] [place] [id number] [place] [address] 94878- 4301 Nov, [facility] [place] [address] [place] [id number] [place] [address] 71087 -1531 Nov, Abdominal pain, unspecified abdominal location R10.9 ; Constipation, unspecified constipation type K59.00 and BMI 40.0-44.9, adult Z68.41 [place] [address] [place] [id number] [place] [address] 40478- 6677 Nov, [place] [address] [place] [id number] [place] [address] 59664- 3745 Oct, [place] [address] [place] [id number] [place] [address] 30773- 9135 Oct, [place] [address] [place] [id number] [place] [address] 53795- 6677 05 Oct, 2017 Breast pain, left N64.4 and BMI 40.0-44.9, adult Z68.41 [facility] [place] [address] [address] [place] [address] 13531 -2365 Sep, BMI 40.0-44.9, adult Z68.41 and Multiple wounds of skin R23.8 [facility] [place] [address] [place] [address] 78457 -9567 Sep, Body aches R52 ; Dysuria R30.0 and Viral URI J06.9 [place] [address] [place] [address] 20696- 0193 Aug, Nausea R11.0 ; Other viral agents as the cause of diseases classified elsewhere B97.89 and Acute upper respiratory infection, unspecified J06.9 [place] [address] [place] [id number] [place] [address] 15019- 7046 Aug, [place] [address] 08153- 7660 Aug, [facility] [address] [place] [id number] [place] [address] 44200 -6678 Jul, Sore throat J02.9 and BMI 40.0-44.9, adult Z68.41 [place] [address] [place] [id number] [place] [address] 90971- 4261 Jun, Herniation through surgical site K43.2 ; Leg numbness R20.0 ; Acute pain of left knee M25.562 ; Fall, initial encounter W19.XXXA ; Non- insulin dependent type 2 diabetes mellitus E11.9 ; Morbid obesity, unspecified obesity type E66.01 ; Other chronic pain G89.29 and Unspecified abdominal pain R10.9 [facility] IN [place] [id number] [place] [address] 07299 -0042 Jun, Muscle strain of left shoulder, initial encounter S46.912A [place] [address] [place] [id number] [place] [address] 01611- 0801 May, [place] [address] [place] [id number] [place] [address] 68497- 5159 May, [facility] [address] [place] [id number] [place] [address] 07939 -1836 05 May, 2017 Acute pain of right knee M25.561 and Right knee sprain S83.91XA [place] [address] [place] [id number] [place] [address] 51288- 8415 Apr, [place] [address] [place] [id number] [place] [address] 34530- 2052 Apr, [place] [address] [place] [id number] [place] [address] 52079- 9856 Apr, 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 ; Morbid obesity, unspecified obesity type E66.01 ; Acute exacerbation of chronic obstructive pulmonary disease (COPD) J44.1 ; Pain in right knee M25.561 ; Screening for breast cancer Z12.31 and Generalized anxiety disorder F41.1 [place] [address] 41313- 4569 Mar, [facility] [address] 59041 -5062 Mar, Dysuria R30.0 and Acute cystitis without hematuria N30.00 [facility] [address] 30062 -2980 Feb, [facility] [address] 89399 -6487 Feb, Muscle cramps R25.2 and Seasonal allergic rhinitis, unspecified allergic rhinitis trigger J30.2 [place] [id number] [place] [address] 71574- 2932 January, [place] [id number] [place] [address] 18896- 9712 January, Generalized anxiety disorder F41.1 [facility] [place] [id number] [place] [address] 51846 -3877 January, Acute exacerbation of chronic obstructive pulmonary disease (COPD) J44.1 [facility] IN [place] [id number] [place] [address] 31924 -3581 Dec, Cramps, muscle, general R25.2 [place] [address] [place] [id number] [place] [address] 95153- 4572 Dec, [place] [address] 64766- 0741 Nov, Type 2 diabetes mellitus with hyperglycemia E11.65 and Non- insulin dependent type 2 diabetes mellitus E11.9 [place] [address] 71809- 1241 Oct, Generalized anxiety disorder F41.1 [facility] [place] [address] 57873 -0620 20 Oct, 2016 Vaginal candidiasis B37.3 [place] [address] 74171- 6817 Oct, Right upper quadrant abdominal pain R10.11 and S/P cholecystectomy Z90.49 [place] [address] 00995- 2316 Sep, Sore throat J02.9 and Right lower quadrant pain R10.31 [place] [address] 54409- 5000 Sep, Generalized anxiety disorder F41.1 [place] [address] 08520- 2373 Sep, [place] [address] 21866- 6813 Sep, [place] [address] 02248- 7289 Sep, Chest pain, unspecified type R07.9 ; Left lower quadrant pain R10.32 and Other acute postprocedural pain G89.18 [place] [address] 76849- 9268 Sep, Fever in other diseases R50.81 ; Acute non-recurrent maxillary sinusitis J01.00 and Cough R05 [place] [address] 97863- 2403 Sep, [facility] [address] 13766 -2984 Sep, Dysuria R30.0 ; Sore throat J02.9 ; Chest pain, unspecified type R07.9 and Female genital lesion N94.9 [place] [address] 51912- 5069 Aug, Drug-induced constipation K59.03 ; Left arm pain M79.602 and S/P cholecystectomy Z90.49 [facility] IN [facility] [address] 33013 -3973 Aug, Sore throat J02.9 and Strep pharyngitis J02.0 [facility] [address] 89416- 1023 Aug, [place] [address] 36127- 7418 Aug, [place] [address] 61971- 8150 Aug, [place] [address] 40603- 0231 Jul, [facility] [address] 89657- 2236 Jul, Type 2 diabetes mellitus with hyperglycemia E11.65 ; 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.33 ; Morbid obesity, unspecified obesity type E66.01 and Right upper quadrant abdominal pain R10.11 [facility] IN [facility] [address] [place] [id number] [place] [address] 95512 -8179 Jul, Dysuria R30.0 ; Shortness of breath R06.02 ; Cardiomegaly I51.7 and COPD exacerbation J44.1 [place] [address] 35451- 2911 Jul, Bipolar disorder, unspecified F31.9 and Generalized anxiety disorder F41.1 [place] [address] 48353- 9487 20 Jun, 2015 [place] [address] 81368- 9043 Jun, Sleep apnea, unspecified sleep apnea type G47.30 [place] [address] [place] [id number] [place] [address] 02245- 3210 Jun, Bipolar disorder, unspecified F31.9 and Generalized anxiety disorder F41.1 [place] [address] [place] [id number] [place] [address] 51142- 8821 28 May, 2015 Right lower quadrant abdominal pain 789.03 ; Diabetes mellitus type 2, uncontrolled 250.02 ; Bipolar disorder 296.80 ; COPD (chronic obstructive pulmonary disease) 496 ; Bug bite without infection 919.4 and Left upper quadrant pain 789.02 [place] [address] [place] [id number] [place] [address] 99340- 2308 16 May, 2015 Right lower quadrant abdominal pain 789.03 [place] [address] [place] [id number] [place] [address] 26158- 2742 May, [place] [address] [place] [id number] [place] [address] 69567- 0377 Apr, [place] [address] [place] [id number] [place] [address] 31121- 8423 Apr, Skin infection 686.9 [place] [address] [place] [id number] [place] [address] 93057- 0094 Apr, Diabetes mellitus type 2, uncontrolled 250.02 ; Bipolar disorder 296.80 ; Hyperlipidemia 272.4 ; COPD (chronic obstructive pulmonary disease) 496 ; Sleep apnea in adult 327.23 and Routine adult health maintenance V70.0 [place] [address] [place] [address] 87585- 2178 Apr, Bipolar disorder 296.80 IMMUNIZATIONS No Known Immunizations SOCIAL HISTORY Never Assessed REASON FOR VISIT Patient Call PLAN OF CARE VITAL SIGNS MEDICATIONS No [...]
[2018-10-29] MEDS ORDERED: ORPHENADRINE 60 MG/2 ML (NORFLEX) AMP IM ONE (15:45)
[2018-10-29] MEDS ORDERED: KETOROLAC 60 MG/2 ML VIAL IM ONE (15:45)
--- NOTE | 2018-10-29 15:45 | ED Cough/URI ---
General Chief Complaint: Cough/Cold/Flu Symptoms Stated Complaint: COUGH,CHEST TIGHTNESS Nursing Triage Note: ARRIVED VIA AMB TO ROOM 03. STATES SHE HAD NO HEAT DURING THIS COLD SPELL AND STARTED A COUGH, DDRUNNY NOSE, AND PAIN EVERYWHERE. STATES SHE IS HAVING CHEST BURNING AND PAIN WHEN SHE COUGHS. Sepsis Screen: No Definite Risk Source: patient Exam Limitations: no limitations History of Present Illness Date Seen by Provider: Oct 29, 2018 Time Seen by Provider: 15:44 Initial Comments To ER with a three-day history of rhinorrhea, nonproductive cough, body aches, sharp left-sided chest pain worse when she coughs or takes a deep breath. Timing/Duration: constant Severity/Quality: moderate Associated Symptoms: cough, headache, muscle aches, nasal congestion, nasal drainage, sore throat Allergies and Home Medications Allergies Coded Allergies: nickel (Verified Allergy, Intermediate, RASH, 07/15/18) Iodinated Contrast- Oral and IV Dye (Verified Allergy, Unknown, 07/15/18) penicillin (Verified Allergy, Unknown, HAS RECEIVED ROCEPHIN, 04/30/18) Home Medications Albuterol Sulfate 8.5 Gm Hfa.aer.ad, 2 PUFF IH Q4H PRN for WHEEZING, (Reported) Aspirin 325 Mg Tablet, 650 MG PO DAILY, (Reported) take 2 (325mg) tabs Fluoxetine HCl 40 Mg Capsule, 40 MG PO DAILY, (Reported) Fluticasone Propionate 9.9 Ml [place].susp, 1 SPRAY NS BID, (Reported) Fluticasone/Vilanterol 1 Each Blst.w.dev, 1 EACH IH DAILY, (Reported) Metformin HCl 1,000 Mg Tablet, 1,000 MG PO BID, (Reported) Omeprazole 40 Mg Capsule.dr, 40 MG PO DAILY, (Reported) Oxycodone HCl/Acetaminophen 1 Each Tablet, 1 EACH PO Q4H PRN for PAIN-MODERATE Prescribed by: KISHA BALDWIN on 07/15/18 0754 Patient Home Medication List Home Medication List Reviewed: Yes Review of Systems Review of Systems Constitutional: see HPI, chills, malaise, weakness EENTM: see HPI, nose congestion Respiratory: see HPI, cough Cardiovascular: see HPI, chest pain Genitourinary: no symptoms reported Musculoskeletal: no symptoms reported Skin: no symptoms reported Past Cdtqwwz-Uvdnfp-Klfujj Hx Patient Social History Type Used: Cigarettes Former Smoker, Quit: May 01, 2008 2nd Hand Smoke Exposure: No Recent Foreign Travel: No Contact w/Someone Who Travel: No Recent Infectious Disease Expo: No Recent Hopitalizations: No Immunizations Up To Date Tetanus Booster (TDap): Unknown PED Vaccines UTD: No Date of Pneumonia Vaccine: Mar 13, 2018 Date of Influenza Vaccine: Jul 16, 2017 Seasonal Allergies Seasonal Allergies: No Past Medical History Surgeries: Yes (Partial Hysterectomy; Carpal Tunnel Nba, L KNEE SURGERY x12, L shoulder) Abdominal, Gallbladder, Hysterectomy, Oophorectomy, Orthopedic Respiratory: Yes (CPAP) Asthma, Sleep Apnea, COPD Currently Using CPAP: Yes Cardiac: No High Cholesterol Neurological: No Reproductive Disorders: No 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 Sexually Transmitted Disease: No HIV/AIDS: No Genitourinary: Yes Kidney Infection, Bladder Infection, UTI-Chronic Gastrointestinal: Yes (INFLAMATION IN COLON, VENTRAL HERNIA) Gastroesophageal Reflux, Chronic Constipation, Chronic Diarrhea, Irritable Bowel Musculoskeletal: Yes (RESTLESS LEG SYNDROME) Arthritis, Fibromyalgia, Chronic Back Pain Endocrine: Yes (OBESITY) Diabetes, Non-Insulin dep HEENT: No Loss of Vision: Bilateral Hearing Impairment: Denies Cancer: No Psychosocial: Yes Anxiety, Bipolar Integumentary: No Blood Disorders: No Adverse Reaction/Blood Tranf: No (N/A) Family Medical History Arthritis 19 MOTHER, Onset:Unknown Asthma 19 FATHER, Onset:Unknown Cataracts 19 MOTHER, Onset:Unknown Diabetes mellitus 19 MOTHER, Onset:Unknown FH: COPD (chronic obstructive pulmonary disease) 19 FATHER, Onset:Unknown Hypercholesterolemia 19 MOTHER MS (multiple sclerosis) G8 SISTER, Onset:Unknown No Pertinent Family Hx Physical Exam Vital Signs - First Documented 10/29/18 15:26 Temp 97.9 Pulse 83 Resp 16 B/P (MAP) 130/87 (101) Pulse Ox 97 O2 Delivery Room Air Capillary Refill : Less Than 3 Seconds Height: 5'9.00" Weight: 260lbs. 0.0oz. 117.838890as; 41.1 BMI Method:Stated General Appearance: WD/WN, no apparent distress Eyes: Bilateral Eye Normal Inspection, Bilateral Eye PERRL, Bilateral Eye EOMI HEENT: PERRL/EOMI, normal ENT inspection, pharynx normal Neck: non-tender, full range of motion Respiratory: normal breath sounds, no respiratory distress, no accessory muscle use Cardiovascular: regular rate, rhythm, no murmur Gastrointestinal: normal bowel sounds, non tender, soft Extremities: normal range of motion, non-tender Neurologic/Psychiatric: alert, normal mood/affect, oriented x 3 Skin: normal color, warm/dry Progress/Results/Core Measures Suspected Sepsis Recent Fever Within 48 Hours: No Infection Criteria Present: Suspected New Infection New/Unexplained Altered Menta: No Sepsis Screen: No Definite Risk SIRS Temperature:97.9 Pulse: 83 Respiratory Rate: 16 Blood Pressure 130 /87 Mean: 101 Results/Orders Lab Results Laboratory Tests Test 10/29/18 15:45 Range/Units Group A Streptococcus Screen NEGATIVE NEGATIVE Micro Results Microbiology 10/29/18 Influenza Types A,B Antigen (CHRIS) - Final, Complete My Orders Orders - JANELLE ESPITIA APRN Rapid Strep A Screen (10/29/18 15:43) Influenza A And B Antigens (10/29/18 15:43) Chest Pa/Lat (2 View) (10/29/18 15:43) Ketorolac Injection (Toradol Injection) (10/29/18 15:45) Orphenadrine Injection (Norflex Injectio (10/29/18 15:45) Medications Given in ED Current Medications Medications Dose Ordered Sig/Veronika Route Start Time Stop Time Status Last Admin Dose Admin Ketorolac Tromethamine 60 mg ONCE ONCE IM 10/29/18 15:45 10/29/18 15:46 DC 10/29/18 15:52 60 MG Orphenadrine Citrate 60 mg ONCE ONCE IM 10/29/18 15:45 10/29/18 15:46 DC 10/29/18 15:51 60 MG Vital Signs/I&O 10/29/18 15:26 Temp 97.9 Pulse 83 Resp 16 B/P (MAP) 130/87 (101) Pulse Ox 97 O2 Delivery Room Air Capillary Refill : Less Than 3 Seconds Blood Pressure Mean: 101 Departure Impression Primary Impression: COPD (chronic obstructive pulmonary disease) Qualified Codes: J44.9 - Chronic obstructive pulmonary disease, unspecified Additional Impression: Chest wall pain Disposition: 01 HOME, SELF-CARE Condition: Stable Departure-Patient Inst. Decision time for Depature: 16:35 Referrals: NICKY THOMPSON MD (PCP/Family) Primary Care Physician Patient Instructions: Cough, Adult (DC) Add. Discharge Instructions: 1. Return to ER for any concerns 2. Follow-up with your doctor next week 3. All discharge instructions reviewed with patient and/or family. Voiced understanding. Scripts Promethazine/Phenyleph/Codeine (Promethazine Vc-Codeine Syrup) 118 Ml Syrup 5 ML PO Q6H PRN for COUGH, #120 ML Prov: JANELLE ESPITIA APRN 10/29/18 JANELLE ESPITIA APRN Oct 29, 2018 15:45
--- NOTE | 2018-10-29 16:23 | Diagnostic Imaging Report ---
INDICATION: Cough. Chest tightness. Runny nose. COMPARISON: 04/01/2018. FINDINGS: Frontal and lateral views of the chest demonstrate normal heart size and pulmonary vascularity. The lungs are clear. There are no signs of infiltrate, pleural effusions or pneumothoraces. The visualized osseous structures show no acute abnormalities. IMPRESSION: 1. No acute process. No signs of infiltrates, effusions or pneumothoraces. Dictated by: Dictated on workstation # [id number]
[2018-10-29] MEDS ORDERED: PHEN118S29 PO (16:36)
[2018-10-29 16:49] VITALS: BP 130/87
== END 2018-10-29 16:48 | disposition home or self-care (01) ==
LOC: EDUNIT# 15:15 → ER 15:16
DX: J44.9 Chronic obstructive pulmonary disease, unspecified (principal); R07.89 Other chest pain; E78.00 Pure hypercholesterolemia, unspecified; G47.30 Sleep apnea, unspecified; K21.9 Gastro-esophageal reflux disease without esophagitis; K58.9 Irritable bowel syndrome, unspecified; E66.9 Obesity, unspecified; E11.9 Type 2 diabetes mellitus without complications; F41.9 Anxiety disorder, unspecified; F31.9 Bipolar disorder, unspecified; Z87.19 Personal history of other diseases of the digestive system; Z87.440 Personal history of urinary (tract) infections; Z91.041 Radiographic dye allergy status; Z87.448 Personal history of other diseases of urinary system; Z82.49 Family history of ischemic heart disease and other diseases of the circulatory system; Z88.0 Allergy status to penicillin; Z88.8 Allergy status to other drugs, medicaments and biological substances; Z79.51 Long term (current) use of inhaled steroids; Z79.82 Long term (current) use of aspirin; Z87.891 Personal history of nicotine dependence; Z98.890 Other specified postprocedural states; Z90.711 Acquired absence of uterus with remaining cervical stump
CPT/HCPCS: 71046; 87430; 87804

== ENCOUNTER 2018-11-29 09:14 | Emergency (ER) | payer MEDICARE, MEDICAID ==
[~2018-11-29] VITALS: Ht 175.3 cm; Wt 127.0 kg
[~2018-11-29 09:14] MED LIST changes: +PHEN118S29 PO
[2018-11-29] MEDS ORDERED: fentaNYL INJECTION 100 MCG/2 ML AMP IVP ONE (10:00)
--- NOTE | 2018-11-29 10:08 | ED Cough/URI ---
General Chief Complaint: Cough/Cold/Flu Symptoms Stated Complaint: COUGH,COLD SYMPTOMS Nursing Triage Note: PT PRESENTS TO ER WITH COMPLAINT OF COUGH, SNEEZING, FEVER, WATERY EYES, AND MALAISE FOR THE LAST WEEK. Sepsis Screen: No Definite Risk Source: patient Exam Limitations: no limitations History of Present Illness Date Seen by Provider: Nov 29, 2018 Time Seen by Provider: 10:03 Initial Comments This 57-year-old white female presents with cough fever general malaise with myalgias and weakness that has been present for the last week. Patient states the cough has been productive. She describes yellow sputum. Allergies and Home Medications Allergies Coded Allergies: nickel (Verified Allergy, Intermediate, RASH, 07/15/18) Iodinated Contrast- Oral and IV Dye (Verified Allergy, Unknown, 07/15/18) penicillin (Verified Allergy, Unknown, HAS RECEIVED ROCEPHIN, 04/30/18) Home Medications Albuterol Sulfate 8.5 Gm Hfa.aer.ad, 2 PUFF IH Q4H PRN for WHEEZING, (Reported) Aspirin 325 Mg Tablet, 650 MG PO DAILY, (Reported) take 2 (325mg) tabs Fluoxetine HCl 40 Mg Capsule, 40 MG PO DAILY, (Reported) Fluticasone Propionate 9.9 Ml [place].susp, 1 SPRAY NS BID, (Reported) Fluticasone/Vilanterol 1 Each Blst.w.dev, 1 EACH IH DAILY, (Reported) Metformin HCl 1,000 Mg Tablet, 1,000 MG PO BID, (Reported) Omeprazole 40 Mg Capsule.dr, 40 MG PO DAILY, (Reported) Oxycodone HCl/Acetaminophen 1 Each Tablet, 1 EACH PO Q4H PRN for PAIN-MODERATE Prescribed by: KISHA BALDWIN on 07/15/18 0716 Promethazine/Phenyleph/Codeine 118 Ml Syrup, 5 ML PO Q6H PRN for COUGH Prescribed by: JANELLE ESPITIA on 10/29/18 1636 Patient Home Medication List Home Medication List Reviewed: Yes Review of Systems Review of Systems Constitutional: fever, malaise, weakness EENTM: tearing, nose congestion Respiratory: see HPI, cough; No short of breath Cardiovascular: No chest pain Gastrointestinal: No constipation, No loss of appetite Genitourinary: no symptoms reported Musculoskeletal: no symptoms reported Skin: no symptoms reported; No rash Psychiatric/Neurological: No Symptoms Reported Hematologic/Lymphatic: No Symptoms Reported Immunological/Allergic: no symptoms reported Past Ucxszbn-Nbaomd-Gyrvhn Hx Past Med/Social Hx: Reviewed Nursing Past Med/Soc Hx Patient Social History Alcohol Use: Denies Use Recreational Drug Use: No Smoking Status: Former Smoker Type Used: Cigarettes Former Smoker, Quit: May 01, 2008 2nd Hand Smoke Exposure: No Recent Foreign Travel: No Contact w/Someone Who Travel: No Recent Infectious Disease Expo: No Recent Hopitalizations: No Immunizations Up To Date Tetanus Booster (TDap): Unknown PED Vaccines UTD: No Date of Pneumonia Vaccine: Mar 13, 2018 Date of Influenza Vaccine: Jul 16, 2017 Seasonal Allergies Seasonal Allergies: No Past Medical History Surgeries: Yes (Partial Hysterectomy; Carpal Tunnel Nba, L KNEE SURGERY x12, L shoulder) Abdominal, Gallbladder, Hysterectomy, Oophorectomy, Orthopedic Respiratory: Yes (CPAP) Asthma, Sleep Apnea, COPD Currently Using CPAP: Yes Cardiac: No High Cholesterol Neurological: No Reproductive Disorders: No 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 Sexually Transmitted Disease: No HIV/AIDS: No Genitourinary: Yes Kidney Infection, Bladder Infection, UTI-Chronic Gastrointestinal: Yes (INFLAMATION IN COLON, VENTRAL HERNIA) Gastroesophageal Reflux, Chronic Constipation, Chronic Diarrhea, Irritable Bowel Musculoskeletal: Yes (RESTLESS LEG SYNDROME) Arthritis, Fibromyalgia, Chronic Back Pain Endocrine: Yes (OBESITY) Diabetes, Non-Insulin dep HEENT: No Loss of Vision: Bilateral Hearing Impairment: Denies Cancer: No Psychosocial: Yes Anxiety, Bipolar Integumentary: No Blood Disorders: No Adverse Reaction/Blood Tranf: No (N/A) Family Medical History Arthritis 19 MOTHER, Onset:Unknown Asthma 19 FATHER, Onset:Unknown Cataracts 19 MOTHER, Onset:Unknown Diabetes mellitus 19 MOTHER, Onset:Unknown FH: COPD (chronic obstructive pulmonary disease) 19 FATHER, Onset:Unknown Hypercholesterolemia 19 MOTHER MS (multiple sclerosis) G8 SISTER, Onset:Unknown No Pertinent Family Hx Physical Exam Vital Signs - First Documented 11/29/18 09:34 Temp 100.2 Pulse 77 Resp 18 B/P (MAP) 146/88 (107) Pulse Ox 98 O2 Delivery Room Air Capillary Refill : Less Than 3 Seconds Height: 5'9.00" Weight: 280lbs. 0.0oz. 127.995085ow; 41.1 BMI Method:Stated General Appearance: WD/WN, mild distress Eyes: Bilateral Eye Normal Inspection HEENT: normal ENT inspection Neck: full range of motion, supple Respiratory: decreased breath sounds Cardiovascular: regular rate, rhythm Gastrointestinal: normal bowel sounds Extremities: normal range of motion Neurologic/Psychiatric: no motor/sensory deficits, alert, normal mood/affect Skin: normal color, warm/dry Focused Exam Lactate Level 11/29/18 10:45: Lactic Acid Level 1.16 Lactic Acid Level Laboratory Tests Test 11/29/18 10:45 Lactic Acid Level 1.16 MMOL/L (0.50-2.00) Progress/Results/Core Measures Suspected Sepsis Recent Fever Within 48 Hours: No Infection Criteria Present: None New/Unexplained Altered Menta: No Sepsis Screen: No Definite Risk SIRS Temperature:100.2 Pulse: 77 Respiratory Rate: 18 Laboratory Tests 11/29/18 10:45: White Blood Count 9.1 Blood Pressure 146 /88 Mean: 107 11/29/18 10:45: Lactic Acid Level 1.16 Laboratory Tests 11/29/18 10:45: Platelet Count 197 Results/Orders Lab Results Laboratory Tests Test 11/29/18 10:22 11/29/18 10:45 Range/Units Urine Color YELLOW Urine Clarity SLIGHTLY CLOUDY Urine pH 5 5-9 Urine Specific Rover 1.020 1.016-1.022 Urine Protein NEGATIVE NEGATIVE Urine Glucose (UA) 1+ H NEGATIVE Urine Ketones NEGATIVE NEGATIVE Urine Nitrite NEGATIVE NEGATIVE Urine Bilirubin NEGATIVE NEGATIVE Urine Urobilinogen NORMAL NORMAL MG/DL Urine Leukocyte Esterase NEGATIVE NEGATIVE Urine RBC (Auto) NEGATIVE NEGATIVE Urine RBC NONE /HPF Urine WBC NONE /HPF Urine Crystals NONE /LPF Urine Bacteria NEGATIVE /HPF Urine Casts NONE /LPF Urine Mucus NEGATIVE /LPF Urine Culture Indicated NO White Blood Count 9.1 4.3-11.0 10^3/uL Red Blood Count 4.63 4.35-5.85 10^6/uL Hemoglobin 12.0 11.5-16.0 G/DL Hematocrit 37 35-52 % Mean Corpuscular Volume 79 L 80-99 FL Mean Corpuscular Hemoglobin 26 25-34 PG Mean Corpuscular Hemoglobin Concent 33 32-36 G/DL Red Cell Distribution Width 14.9 H 10.0-14.5 % Platelet Count 197 130-400 10^3/uL Mean Platelet Volume 11.4 H 7.4-10.4 FL Neutrophils (%) (Auto) 70 42-75 % Lymphocytes (%) (Auto) 22 12-44 % Monocytes (%) (Auto) 6 0-12 % Eosinophils (%) (Auto) 3 0-10 % Basophils (%) (Auto) 0 0-10 % Neutrophils # (Auto) 6.3 1.8-7.8 X 10^3 Lymphocytes # (Auto) 2.0 1.0-4.0 X 10^3 Monocytes # (Auto) 0.5 0.0-1.0 X 10^3 Eosinophils # (Auto) 0.2 0.0-0.3 10^3/uL Basophils # (Auto) 0.0 0.0-0.1 10^3/uL Lactic Acid Level 1.16 0.50-2.00 MMOL/L Micro Results Microbiology 11/29/18 Influenza Types A,B Antigen (CHRIS) - Final, Complete My Orders Orders - CHRISTO VIDAL MD Cbc With Automated Diff (11/29/18 10:00) Blood Culture (11/29/18 10:00) Influenza A And B Antigens (11/29/18 10:00) Chest Pa/Lat (2 View) (11/29/18 10:00) Lactic Acid Analyzer (11/29/18 10:00) Fentanyl Injection (Sublimaze Injection (11/29/18 10:00) Ua Culture If Indicated (11/29/18 10:18) Medications Given in ED Current Medications Medications Dose Ordered Sig/Veronika Route Start Time Stop Time Status Last Admin Dose Admin Fentanyl Citrate 50 mcg ONCE ONCE IVP 11/29/18 10:00 11/29/18 10:03 DC 11/29/18 10:11 50 MCG Vital Signs/I&O 11/29/18 09:34 Temp 100.2 Pulse 77 Resp 18 B/P (MAP) 146/88 (107) Pulse Ox 98 O2 Delivery Room Air Capillary Refill : Less Than 3 Seconds Blood Pressure Mean: 107 Progress Note : Time: 11:59 Progress Note The patient's evaluation emergency Department demonstrated that she was negative for flu, she had a clear chest x-ray, and an unremarkable white count. Patient was symptomatically improved with 50 g of fentanyl. I discussed the findings with the patient. I recommended that she rest at home. I asked that she follow up with her physicians tomorrow if she progressed in terms of her symptoms. I gave her Tussionex for her cough. I invited her to return if any problems or questions. Departure Impression Primary Impression: Influenza-like symptoms Disposition: 01 HOME, SELF-CARE Condition: Improved Departure-Patient Inst. Decision time for Depature: 12:00 Referrals: NICKY THOMPSON MD (PCP/Family) Primary Care Physician Patient Instructions: Viral Upper Respiratory Infection, Adult (DC) Add. Discharge Instructions: Tussionex for cough. Rest at home. Follow with Dr. Thompson tomorrow if your symptoms have progressed. Return if any problems or questions. All discharge instructions reviewed with patient and/or family. Voiced understanding. CHRISTO VIDAL MD Nov 29, 2018 10:08
--- NOTE | 2018-11-29 10:26 | Diagnostic Imaging Report ---
Indication: Cough. Febrile. Comparison with 10/29/2018. Findings: PA and lateral chest. Lungs well-aerated and clear. There is no evidence of air trapping. Heart is not enlarged. No pulmonary edema. No hilar adenopathy. No pneumothorax or pleural effusion. No bony abnormalities. IMPRESSION: Normal PA and lateral chest. Dictated by: Dictated on workstation # [id number]
[2018-11-29 10:32] LABS: BILIRUBIN,URINE NEGATIVE (NEGATIVE); CLARITY,URINE SLIGHTLY CLOUDY; COLOR,URINE YELLOW; GLUCOSE, URINE (UA) 1+ (NEGATIVE); KETONES,URINE NEGATIVE (NEGATIVE); LEUKOCYTE ESTERASE ,URINE NEGATIVE (NEGATIVE); NITRITE,URINE NEGATIVE (NEGATIVE); PH,URINE 5 (5-9); PROTEIN,URINE NEGATIVE (NEGATIVE); UROBILINOGEN,URINE NORMAL (NORMAL)
[2018-11-29 10:43] LABS: BACTERIA,URINE NEGATIVE /HPF
[2018-11-29 11:06] LABS: BASOPHILS % (AUTO) 0 % (0-10); EOSINOPHILS # (AUTO) 0.2 10^3/uL (0.0-0.3); EOSINOPHILS % (AUTO) 3 % (0-10); HEMATOCRIT 37 % (35-52); LYMPHOCYTES % (AUTO) 22 % (12-44); MEAN CORPUSCULAR HEMOGLOBIN 26 PG (25-34); MEAN CORPUSCULAR HGB CONC 33 G/DL (32-36); MEAN CORPUSCULAR VOLUME 79 FL (80-99); MEAN PLATELET VOLUME 11.4 FL (7.4-10.4); MONOCYTES # (AUTO) 0.5 X 10^3 (0.0-1.0); MONOCYTES % (AUTO) 6 % (0-12); NEUTROPHILS # (AUTO) 6.3 X 10^3 (1.8-7.8); NEUTROPHILS % (AUTO) 70 % (42-75); PLATELET COUNT 197 10^3/uL (130-400); RED CELL DISTRIBUTION WIDTH 14.9 % (10.0-14.5); WHITE BLOOD COUNT 9.1 10^3/uL (4.3-11.0)
[2018-11-29 12:20] VITALS: BP 117/68
== END 2018-11-29 12:20 | disposition home or self-care (01) ==
LOC: EDUNIT# 09:14 → ER 09:15
DX: R05 Cough (principal); R53.81 Other malaise; M79.10 Myalgia, unspecified site; R53.1 Weakness; G47.30 Sleep apnea, unspecified; J44.9 Chronic obstructive pulmonary disease, unspecified; E78.00 Pure hypercholesterolemia, unspecified; K21.9 Gastro-esophageal reflux disease without esophagitis; K58.9 Irritable bowel syndrome, unspecified; E11.9 Type 2 diabetes mellitus without complications; E66.9 Obesity, unspecified; F41.9 Anxiety disorder, unspecified; F32.9 Major depressive disorder, single episode, unspecified; G25.81 Restless legs syndrome; Z82.49 Family history of ischemic heart disease and other diseases of the circulatory system; Z87.19 Personal history of other diseases of the digestive system; Z87.440 Personal history of urinary (tract) infections; Z87.448 Personal history of other diseases of urinary system; Z91.041 Radiographic dye allergy status; Z88.0 Allergy status to penicillin; Z88.8 Allergy status to other drugs, medicaments and biological substances; Z79.51 Long term (current) use of inhaled steroids; Z79.82 Long term (current) use of aspirin; Z87.891 Personal history of nicotine dependence; Z90.711 Acquired absence of uterus with remaining cervical stump; Z98.890 Other specified postprocedural states
CPT/HCPCS: 36415; 71046; 81000; 83605; 85025; 87040; 87804

== ENCOUNTER 2018-12-17 09:28 | Outpatient (CLI) | payer MEDICARE, MEDICAID ==
[~2018-12-17] VITALS: Ht 175.3 cm; Wt 127.0 kg
== END 2018-12-17 10:06 | disposition home or self-care (01) ==
LOC: PREOP 09:28
PROVIDERS: ATTEND Surgery
DX: Z01.818 Encounter for other preprocedural examination (principal)

== ENCOUNTER 2018-12-22 09:54 | Day surgery (SDC) | payer MEDICARE, MEDICAID ==
[~2018-12-22] VITALS: Ht 175.3 cm; Wt 127.0 kg
[2018-12-22] MEDS ORDERED: LACTATED RINGERS 1,000 ML IV STA (10:00)
[2018-12-22] MEDS ORDERED: HURRICAINE EXT TUBE (BENZOCAINE) XX PRN (10:00)
[2018-12-22] MEDS ORDERED: LACTATED RINGERS 1,000 ML IV ONE (10:04)
[2018-12-22 10:15] VITALS: BP 106/90
[2018-12-22] MEDS ORDERED: LIDOCAINE PF 1% 5 ML (XYLOCAINE) AMP ONE (10:20)
[2018-12-22] MEDS ORDERED: LIDOCAINE PF 2% 2 ML (XYLOCAINE) VIAL IJ ONE (10:45)
[2018-12-22] MEDS ORDERED: MIDAZOLAM 2 MG/2 ML (VERSED) VIAL ONE (11:27)
[2018-12-22] MEDS ORDERED: PROPOFOL INJECTION 50 ML IV ONE ×2 (11:27→11:42)
--- NOTE | 2018-12-22 11:29 | Progress Note-Pre Operative ---
Pre-Operative Progress Note H&P Reviewed The H&P was reviewed, patient examined and no changes noted. Date Seen by Provider: Dec 22, 2018 Time Seen by Provider: 11: Date H&P Reviewed: Dec 22, 2018 Time H&P Reviewed: :28 Pre-Operative Diagnosis: llq abdominal pain, hematochezia STEPHANE KIMBLE DO Dec 22, 2018 11:29
--- NOTE | 2018-12-22 12:14 | Progress Note-Post Operative ---
Post-Operative Progess Note Surgeon (s)/Washer Blanket (s) Surgeon STEPHANE KIMBLE DO Washer Blanket: NA Pre-Operative Diagnosis llq abdominal pain, hematochezia Post-Operative Diagnosis Gastritis, hiatal hernia, ascending colon polyp, ascending colonic lipoma Procedure & Operative Findings Date of Procedure 12/22/18 Procedure Performed/Findings EGD w/ biopsies, colonoscopy w/ hot biopsy and polypectomy Anesthesia Type per WIRE STITCHER OPERATOR Estimated Blood Loss Estimated blood loss (mL): None Specimens/Packing Specimens Removed Antrum, GE, ascending colon polyp STEPHANE KIMBLE DO Dec 22, 2018 12:14
[2018-12-22] MEDS ORDERED: PANT40TA2 PO (12:18)
[2018-12-22 12:35] VITALS: BP 117/72
[2018-12-22 13:05] VITALS: BP 98/53
[2018-12-22 13:15] VITALS: BP 98/53
--- NOTE | 2018-12-22 13:36 | Anesthesia-General Post-Op ---
MAC Patient Condition Mental Status/LOC: Same as Preop Cardiovascular: Satisfactory Nausea/Vomiting: Absent Respiratory: Satisfactory Pain: Controlled Complications: Absent Post Op Complications Complications None Follow Up Care/Instructions Patient Instructions None needed. Anesthesiology Discharge Order Discharge Order Patient is doing well, no complaints, stable vital signs, no apparent adverse anesthesia problems. No complications reported per nursing. SUE MONTANA CRNA Dec 22, 2018 13:36
--- NOTE | 2018-12-22 15:53 | OPERATIVE REPORT ---
DATE OF SERVICE: 12/22/2018 PREOPERATIVE DIAGNOSIS: Hematochezia, left upper quadrant, left lower quadrant abdominal pain. POSTOPERATIVE DIAGNOSES: Hiatal hernia, slight gastritis, ascending colon polyp, ascending colonic lipoma. PROCEDURE: EGD with biopsies, colonoscopy with hot biopsy polypectomy. SURGEON: Stephane Calero DO ANESTHESIA: Per CORN LAB TECHNICIAN. ESTIMATED BLOOD LOSS: None. COMPLICATIONS: None. INDICATIONS: The patient is a 58-year-old female with left upper quadrant, left lower quadrant abdominal pain, also having some hematochezia. She understands risks and benefits of procedure and wished to proceed with procedure. Consent was signed on the chart. DESCRIPTION OF PROCEDURE: The patient was taken to the endoscopy suite, placed in left lateral recumbent position. Timeout was performed. Scope was inserted in mouth, down the esophagus, stomach and into the duodenum without difficulty. There were no polyps, masses or ulcerations within the duodenum. Scope was then slowly retracted back into the stomach where it was further insufflated. Some slight erythematous changes consistent with gastritis in the antrum, biopsy was obtained. No other pathology. Scope was retroflexed noting a hiatal hernia. No other pathology noted. Scope was returned to its normal position, slowly withdrawn to the distal esophagus, which had slight erythematous changes. Biopsy of the GE junction was obtained. Scope was slowly retracted back to completely remove, noting no other pathology. Digital rectal exam was performed. There were no palpable polyps, masses or ulcerations. Some slight hemorrhoidal disease. Scope was inserted into the rectum and advanced all the way to the cecum with minimal difficulty. Prep was adequate. Scope was then slowly retracted back. There were no polyps, mass or ulcerations within the cecum. Within the ascending colon, a small polyp was present, which hot biopsy polypectomy was performed. Also, small colonic submucosal lipoma present. Scope was continuously retracted back. There were no other polyps, mass or ulcerations within the remainder of the ascending, transverse, descending and sigmoid colon. Once in the rectum, scope was inserted and removed multiple times, noting no other pathology. Scope was then slowly retracted until completely removed, noting no other pathology. The patient tolerated procedure well without any complications. She was taken to recovery room in stable condition. RECOMMENDATIONS: The patient recommend to stop omeprazole, start Protonix 40 mg daily. We will see if this improves some of her symptoms. The patient will need to follow up on polypectomy. She needs repeat colonoscopy in 5 years. Any issues before that will be seen at that time. Job ID: [id number] DocumentID: [id number] Dictated Date: 12/22/2018 12:17:41 Foundry Technician Date: 12/22/2018 15:53:14 Dictated By: STEPHANE CALERO DO
== END 2018-12-22 13:15 | disposition home or self-care (01) ==
LOC: ENDO 09:54
PROVIDERS: ATTEND Surgery
DX: D12.2 Benign neoplasm of ascending colon (principal); D17.5 Benign lipomatous neoplasm of intra-abdominal organs; K29.50 Unspecified chronic gastritis without bleeding; K44.9 Diaphragmatic hernia without obstruction or gangrene; E11.9 Type 2 diabetes mellitus without complications; J43.9 Emphysema, unspecified; E78.5 Hyperlipidemia, unspecified; G47.33 Obstructive sleep apnea (adult) (pediatric); E66.01 Morbid (severe) obesity due to excess calories; Z68.41 Body mass index [BMI] 40.0-44.9, adult; Z87.891 Personal history of nicotine dependence; Z79.84 Long term (current) use of oral hypoglycemic drugs; Z79.899 Other long term (current) drug therapy

== ENCOUNTER 2018-12-26 18:02 | Emergency (ER) | payer MEDICARE, MEDICAID ==
[~2018-12-26] VITALS: Ht 175.3 cm; Wt 126.1 kg
[~2018-12-26 18:02] MED LIST changes: +PANT40TA2 PO
[2018-12-26] MEDS ORDERED: ACETAMINOPHEN 500 MG TAB (TYLENOL) PO STA (20:19)
[2018-12-26] MEDS ORDERED: DEXAMETHASONE 10 MG/ML (DECADRON) 1 ML VIAL IM ONE (20:45)
--- NOTE | 2018-12-26 20:49 | ED EENT ---
History of Present Illness General Chief Complaint: Oral/Throat Problems Stated Complaint: SORE THROAT/COUGH/CHILLS Nursing Triage Note: ARRIVED VIA AMB TO TRIAGE WITH COMPLAINTS OF SORETHROAT X8 DAYS. STATES SHE ALSO HAS COUGH. WAS SEEN AT [facility] BUT NOT PRESCRIBED ANYTHING, History of Present Illness Date Seen by Provider: Dec 26, 2018 Time Seen by Provider: 20:05 Initial Comments 58-year-old female presents for sore throat. She reports over the last 2-3 weeks she has been having intermittent cough, congestion, sore throat and sinus pressure. She also reports pain in both ears. She took Tylenol before noon today and ibuprofen at 0900. Timing/Duration: intermittent Severity: moderate Location: throat Prearrival Treatment: over the counter meds (Tylenol and ibuprofen before noon today) Associated Symptoms: cough, malaise, nasal congestion/drainage, poor solids intake, sinus infection, sore throat Allergies and Home Medications Allergies Coded Allergies: nickel (Verified Allergy, Intermediate, RASH, 07/15/18) doxycycline (Verified Allergy, Mild, HIVES, 12/17/18) Iodinated Contrast- Oral and IV Dye (Verified Allergy, Unknown, 07/15/18) penicillin (Verified Allergy, Unknown, HAS RECEIVED ROCEPHIN, 04/30/18) Home Medications Cefdinir 300 Mg Capsule, 300 MG PO BID Prescribed by: OLIVA STALEY on 12/26/182049 Fluoxetine HCl 40 Mg Capsule, 40 MG PO DAILY, (Reported) Fluticasone Propionate 9.9 Ml [place].susp, 1 SPRAY NS BID, (Reported) Fluticasone/Vilanterol 1 Each Blst.w.dev, 1 EACH IH DAILY, (Reported) Metformin HCl 1,000 Mg Tablet, 1,000 MG PO BID, (Reported) Pantoprazole Sodium 40 Mg Tablet.dr, 40 MG PO DAILY Prescribed by: STEPHANE KIMBLE on 12/22/18 1218 Patient Home Medication List Home Medication List Reviewed: Yes Review of Systems Review of Systems Constitutional: no symptoms reported, see HPI Ears: See HPI, Pain Nose: see HPI, congestion, purulent discharge Throat: see HPI, pain, painful swallowing Respiratory: no symptoms reported, see HPI All Other Systems Reviewed Negative Unless Noted: Yes Past Bthnqan-Iyiyic-Wrxqry Hx Past Med/Social Hx: Reviewed Nursing Past Med/Soc Hx Patient Social History Alcohol Use: Denies Use Recreational Drug Use: No Smoking Status: Former Smoker Type Used: Cigarettes Former Smoker, Quit: May 01, 2008 2nd Hand Smoke Exposure: No Recent Foreign Travel: No Contact w/Someone Who Travel: No Recent Infectious Disease Expo: No Recent Hopitalizations: No Immunizations Up To Date Tetanus Booster (TDap): Unknown PED Vaccines UTD: No Date of Pneumonia Vaccine: Mar 13, 2018 Date of Influenza Vaccine: Jul 06, 2018 Seasonal Allergies Seasonal Allergies: Yes Past Medical History Surgeries: Yes (Partial Hysterectomy; Carpal Tunnel Nba, L KNEE x12, L shoulder, L TKR) Abdominal, Gallbladder, Hysterectomy, Oophorectomy, Orthopedic Respiratory: Yes (CPAP) Asthma, Sleep Apnea, COPD Currently Using CPAP: Yes Cardiac: No High Cholesterol Neurological: No Reproductive Disorders: No 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 Sexually Transmitted Disease: No HIV/AIDS: No Genitourinary: Yes Kidney Infection, Bladder Infection, UTI-Chronic Gastrointestinal: Yes (INFLAMATION IN COLON, VENTRAL HERNIA) Gastroesophageal Reflux, Chronic Constipation, Chronic Diarrhea, Irritable Bowel Musculoskeletal: Yes (RESTLESS LEG SYNDROME) Arthritis, Fibromyalgia, Chronic Back Pain Endocrine: Yes (OBESITY) Diabetes, Non-Insulin dep HEENT: Yes (GLASSES) Loss of Vision: Bilateral Hearing Impairment: Denies Cancer: No Psychosocial: Yes Anxiety, Bipolar Integumentary: No Blood Disorders: No Adverse Reaction/Blood Tranf: No (N/A) Family Medical History Arthritis 19 MOTHER, Onset:Unknown Asthma 19 FATHER, Onset:Unknown Cataracts 19 MOTHER, Onset:Unknown Diabetes mellitus 19 MOTHER, Onset:Unknown FH: COPD (chronic obstructive pulmonary disease) 19 FATHER, Onset:Unknown Hypercholesterolemia 19 MOTHER MS (multiple sclerosis) G8 SISTER, Onset:Unknown No Pertinent Family Hx Physical Exam Vital Signs Vital Signs - First Documented 12/26/18 18:06 Temp 98.1 Pulse 90 Resp 18 B/P (MAP) 137/73 (94) Pulse Ox 96 O2 Delivery Room Air Height, Weight, BMI Height: 5'9.00" Weight: 278lbs. 0.0oz. 126.626561sp; 41.4 BMI Method:Stated General Appearance: WD/WN, no apparent distress Ears: bilateral ear auricle normal, bilateral ear canal normal, bilateral ear TM dull, bilateral ear TM red Mouth/Throat: pharynx normal; No mandibular swelling, No maxillary swelling, No pharynx swelling; pharynx tenderness; No tonsillar exudate, No tonsillar swelling, No uvula swelling, No voice changes Neck: full range of motion, supple, normal inspection, lymphadenopathy (R), lymphadenopathy (L) Cardiovascular: normal peripheral pulses, no murmur Respiratory: chest non-tender, lungs clear, normal breath sounds Gastrointestinal: normal bowel sounds, non tender, soft Neurologic/Psychiatric: no motor/sensory deficits, alert, normal mood/affect, oriented x 3 Progress/Results/Core Measures Results/Orders Micro Results Microbiology 12/26/18 Influenza Types A,B Antigen (CHRIS) - Final, Complete My Orders Orders - OLIVA STALEY Influenza A And B Antigens (12/26/18 18:13) Acetaminophen Tablet (Tylenol Tablet) (12/26/18 20:19) Dexamethasone Injection (Decadron Inject (12/26/18 20:45) Rx-Cefdinir Capsule (Rx-Omnicef Capsule) (12/26/18 21:00) Vital Signs/I&O Blood Pressure Mean: 94 Departure Impression Primary Impression: Otitis media Qualified Codes: H66.003 - Acute suppurative otitis media without spontaneous rupture of ear drum, bilateral Additional Impression: Upper respiratory infection Qualified Codes: J06.9 - Acute upper respiratory infection, unspecified Disposition: 01 HOME, SELF-CARE Condition: Improved Departure-Patient Inst. Decision time for Depature: 20:40 Referrals: NICKY THOMPSON MD (PCP/Family) Primary Care Physician Patient Instructions: Ear Infections (Otitis Media), Viral Upper Respiratory Infection, Adult (DC) Add. Discharge Instructions: Increase fluid intake. Take medication as prescribed. Follow-up with your primary care provider if symptoms are not improving or worsen. Take ibuprofen 600 mg alternating with Tylenol 650 mg every 4 hours for pain or fever. Gargle with warm salt water every 2 hours. Take Apple Cider Vinegar with "the mother" 3 Tablespoon with lemon juice and honey Return to emergency department for fever greater than 101 not relieved by Tylenol or ibuprofen, difficulty breathing, or new acute health care problems. All discharge instructions reviewed with patient and/or family. Voiced understanding. Scripts Cefdinir (Cefdinir) 300 Mg Capsule 300 MG PO BID, #14 CAP 0 Refills Prov: OLIVA STALEY 12/26/18 OLIVA STALEY Dec 26, 2018 20:49
[2018-12-26] MEDS ORDERED: CEFD300C3 PO (20:50)
[2018-12-26 20:59] VITALS: BP 137/73
[2018-12-26] MEDS ORDERED: RX-CEFDINIR 300 MG CAP PPK #2 PO SCH (21:00)
== END 2018-12-26 20:59 | disposition home or self-care (01) ==
LOC: EDUNIT# 18:02 → ER 18:02
DX: H66.93 Otitis media, unspecified, bilateral (principal); J06.9 Acute upper respiratory infection, unspecified; K21.9 Gastro-esophageal reflux disease without esophagitis; K58.9 Irritable bowel syndrome, unspecified; G25.81 Restless legs syndrome; E66.9 Obesity, unspecified; E11.9 Type 2 diabetes mellitus without complications; F41.9 Anxiety disorder, unspecified; F32.9 Major depressive disorder, single episode, unspecified; Z82.49 Family history of ischemic heart disease and other diseases of the circulatory system; Z68.41 Body mass index [BMI] 40.0-44.9, adult; Z88.8 Allergy status to other drugs, medicaments and biological substances; Z88.0 Allergy status to penicillin; Z91.041 Radiographic dye allergy status; Z79.51 Long term (current) use of inhaled steroids; Z79.84 Long term (current) use of oral hypoglycemic drugs; Z87.891 Personal history of nicotine dependence; Z98.890 Other specified postprocedural states; Z90.711 Acquired absence of uterus with remaining cervical stump; Z96.652 Presence of left artificial knee joint; Z87.448 Personal history of other diseases of urinary system; Z87.440 Personal history of urinary (tract) infections; Z87.19 Personal history of other diseases of the digestive system
CPT/HCPCS: 87804; 96372

== ENCOUNTER 2019-01-04 12:14 | Outpatient (CLI) | payer MEDICARE, MEDICAID ==
[~2019-01-04] VITALS: Ht 175.3 cm; Wt 126.1 kg
== END 2019-01-04 13:00 | disposition home or self-care (01) ==
LOC: PREOP 12:14
PROVIDERS: ATTEND Orthopaedic Surgery
DX: Z01.818 Encounter for other preprocedural examination (principal)

== ENCOUNTER 2019-01-06 10:05 | Day surgery (SDC) | payer MEDICARE, MEDICAID ==
--- NOTE | 2018-12-30 18:07 | HISTORY AND PHYSICAL ---
DATE OF SERVICE: ADMISSION HISTORY AND PHYSICAL DATE OF ADMISSION: 01/06/2019. This will be for an outpatient surgery on 01/06/2019 for the left hip intraarticular injection. HISTORY OF PRESENT ILLNESS: The patient is a 58-year-old female with both left hip and lumbar spine symptoms. She complained of pain in the groin. She complained of pain in her anterior thigh. Due to persistent symptoms, we elected to proceed with an intraarticular injection for both diagnostic and therapeutic purposes. REVIEW OF SYSTEMS: No chest pain or shortness of breath. No dysuria. PAST MEDICAL HISTORY: Diabetes, COPD, depression, hypercholesterolemia, sleep apnea, bipolar disorder, allergic rhinitis, cardiomegaly and morbid obesity. PAST SURGICAL HISTORY: Bilateral carpal and cubital tunnel releases, left knee arthroscopy, left total knee arthroplasty, left shoulder arthroscopy, right knee arthroscopy, cholecystectomy and hysterectomy. FAMILY HISTORY: Significant for lupus, COPD and diabetes. PRIMARY CARE PROVIDER: [facility]. MEDICATIONS: Omeprazole, fluoxetine, metformin, Breo-Ellipta, fluconazole and hydrocodone. ALLERGIES: PENICILLIN, DOXYCYCLINE, NICKEL and CONTRAST DYE. SOCIAL HISTORY: The patient is a former smoker and drinks alcohol rarely. PHYSICAL EXAMINATION: GENERAL: The patient is well developed and well nourished, in no acute distress. HEENT: Normocephalic and atraumatic. Pupils are equal, round and reactive to light. Oropharynx is clear. NECK: Supple, no lymphadenopathy. LUNGS: Clear to auscultation bilaterally. HEART: Regular rate and rhythm. ABDOMEN: Soft, nontender and nondistended. EXTREMITIES: The patient has mildly positive straight leg raise on the left. No pain with knee range of motion. She has anterior thigh pain and groin pain with internal rotation, which is somewhat limited compared to contralateral side. She is mildly tender over the greater trochanter. IMPRESSION: Left hip intra-articular injection. We discussed risks, benefits, options, ramifications and recovery. She understands and wishes to proceed. Job ID: [id number] DocumentID: [id number] Dictated Date: 12/29/2018 09:23:23 Lining Stuffer Date: 12/29/2018 09:45:59 Dictated By: KISHA BALDWIN MD
[~2019-01-06] VITALS: Ht 175.3 cm; Wt 127.5 kg
[2019-01-06] MEDS ORDERED: BUPIVACAINE 0.25% 30 ML (SENSORCAINE) VIAL ONE (10:07)
[2019-01-06] MEDS ORDERED: methylPREDNISolone 40 MG/ML (DEPO MEDROL) VIAL ONE (10:07)
[2019-01-06] MEDS ORDERED: LIDOCAINE 1% INJ 20 ML 20 ML VIAL ONE (10:07)
[2019-01-06] MEDS ORDERED: LACTATED RINGERS 1,000 ML IV PRN (10:16)
[2019-01-06 10:41] VITALS: BP 149/71
--- NOTE | 2019-01-06 10:42 | Progress Note-Pre Operative ---
Pre-Operative Progress Note H&P Reviewed The H&P was reviewed, patient examined and no changes noted. Date Seen by Provider: Jan 06, 2019 Time Seen by Provider: 10:41 Date H&P Reviewed: Jan 06, 2019 Time H&P Reviewed: 10:41 Pre-Operative Diagnosis: left hip primary osteoarthritis KISHA BALDWIN MD Jan 06, 2019 10:42
--- NOTE | 2019-01-06 10:43 | Progress Note-Post Operative ---
Post-Operative Progess Note Surgeon (s)/Director Of Community Education (s) Surgeon KISHA BALDWIN MD Director Of Community Education: Boy Shepherd Pre-Operative Diagnosis left hip primary osteoarthritis Post-Operative Diagnosis left hip primary osteoarthritis Procedure & Operative Findings Date of Procedure 01/06/19 Procedure Performed/Findings left hip intra articular injection Anesthesia Type MAC plus local Estimated Blood Loss Estimated blood loss (mL): minimal Specimens/Packing Specimens Removed none Packing: none KISHA BALDWIN MD Jan 06, 2019 10:43
[2019-01-06] MEDS ORDERED: HYDROcodone/APAP 5 MG/325 MG (LORTAB) TAB PO PRN (10:45)
[2019-01-06] MEDS ORDERED: HYDR-34 PO (10:48)
[2019-01-06] MEDS ORDERED: RT-ALBUINH IH (10:48)
[2019-01-06] MEDS ORDERED: MIDAZOLAM 2 MG/2 ML (VERSED) VIAL ONE (10:57)
[2019-01-06] MEDS ORDERED: SEVOFLURANE (ULTANE) 15 ML INHAL SOLN ONE (10:58)
[2019-01-06] MEDS ORDERED: proPOfol 200 MG/20 ML (DIPRIVAN) VIAL IV ONE (11:28)
[2019-01-06] MEDS ORDERED: DEXAMETHASONE 10 MG/ML (DECADRON) 1 ML VIAL ONE (11:28)
[2019-01-06] MEDS ORDERED: diphenhydrAMINE 50 MG/ML INJ (BENADRYL) ONE (11:28)
[2019-01-06] MEDS ORDERED: MEPERIDINE (DEMEROL) INJ 50 MG/ML IVP ONE (11:45)
[2019-01-06] MEDS ORDERED: ONDANSETRON 4 MG/2 ML (SDV) Z0FRAN IVP PRN (11:45)
[2019-01-06] MEDS ORDERED: morphine INJ 10 MG/ML 1ML (SYR OR VIAL) IVP ONE (11:45)
[2019-01-06 12:15] VITALS: BP 99/56
[2019-01-06] MEDS ORDERED: HYDR-3812 PO (12:36)
[2019-01-06 12:45] VITALS: BP 143/69
--- NOTE | 2019-01-06 14:20 | Anesthesia-General Post-Op ---
MAC Patient Condition Mental Status/LOC: Same as Preop Cardiovascular: Satisfactory Nausea/Vomiting: Absent Respiratory: Satisfactory Pain: Controlled Complications: Absent Post Op Complications Complications None Follow Up Care/Instructions Patient Instructions None needed. Anesthesiology Discharge Order Discharge Order Patient is doing well, no complaints, stable vital signs, no apparent adverse anesthesia problems. No complications reported per nursing. SUE [place]TA[place] CRNA Jan 06, 2019 14:20
--- NOTE | 2019-01-06 14:53 | OPERATIVE REPORT ---
DATE OF SERVICE: 01/06/2019 PREOPERATIVE DIAGNOSIS: Left hip primary osteoarthritis. POSTOPERATIVE DIAGNOSIS: Left hip primary osteoarthritis. PROCEDURE PERFORMED: Left hip intraarticular injection. SURGEON: Zion Baldwin MD PIE BAKERY LABORER: Boy Shepherd, who assisted throughout the procedure. ANESTHESIA: Monitored anesthesia care plus local. ESTIMATED BLOOD LOSS: Minimal. DRAINS: None. COMPLICATIONS: None. POSTOPERATIVE PLAN: No impact activities for 24 hours. The patient was transferred to the recovery room awake and in stable condition. STATEMENT OF MEDICAL NECESSITY: The patient is a 58-year-old female with complaints of left anterior hip pain as well as thigh pain. She has previously undergone a total knee arthroplasty, but also had evidence of lumbar stenosis in order to try to provide symptomatic relief of her hip pain as well as for diagnostic purposes. The patient elected to proceed with an intraarticular injection understanding that if the symptoms were coming from her back, these would not alleviate her symptoms. The patient was counseled to keep a pen diary regarding pain relief. DESCRIPTION OF PROCEDURE: After risks and benefits of procedure were discussed and questions were answered, an informed consent was signed and placed on chart. The operative site was confirmed in the preoperative holding area initialed by the surgeon. The patient was then transferred to the operating room and after adequate levels of monitored anesthesia care obtained, a timeout was called confirming the operative site. Under sterile conditions, lateral aspect of the left hip was then injected with plain lidocaine. Under fluoroscopic guidance, a spinal needle was passed intraarticularly and the hip was then injected with 80 mg of Depo-Medrol and 2 mL of Marcaine. The needles was withdrawn. The patient was transported to the recovery room awake and in stable condition. Job ID: [id number] DocumentID: [id number] Dictated Date: 01/06/2019 11:24:42 Member Of Technical Staff Date: 01/06/2019 14:52:42 Dictated By: ZION BALDWIN MD
--- NOTE | 2019-01-06 16:01 | Diagnostic Imaging Report ---
INDICATION: Left hip pain. IMPRESSION: 90 seconds of fluoroscopy and a single digital image of the left hip were obtained during left hip injection by Fatmata Shepherd. Dictated by: Dictated on workstation # [id number]
== END 2019-01-06 13:05 | disposition home or self-care (01) ==
LOC: SDC 10:05
PROVIDERS: ATTEND Orthopaedic Surgery
DX: M16.12 Unilateral primary osteoarthritis, left hip (principal); E11.9 Type 2 diabetes mellitus without complications; E78.5 Hyperlipidemia, unspecified; E78.00 Pure hypercholesterolemia, unspecified; G47.33 Obstructive sleep apnea (adult) (pediatric); J44.9 Chronic obstructive pulmonary disease, unspecified; M79.7 Fibromyalgia; F41.9 Anxiety disorder, unspecified; F31.9 Bipolar disorder, unspecified; K21.9 Gastro-esophageal reflux disease without esophagitis; E66.01 Morbid (severe) obesity due to excess calories; Z68.41 Body mass index [BMI] 40.0-44.9, adult; Z87.891 Personal history of nicotine dependence; Z79.899 Other long term (current) drug therapy; Z88.0 Allergy status to penicillin; Z96.652 Presence of left artificial knee joint; Z79.84 Long term (current) use of oral hypoglycemic drugs
CPT/HCPCS: 82962; 87081

== ENCOUNTER 2019-05-06 13:42 | Emergency (ER) | payer MEDICARE, MEDICAID ==
[~2019-05-06] VITALS: Ht 175.3 cm; Wt 130.6 kg
[~2019-05-06 13:42] MED LIST changes: +HYDR-3812 PO
[2019-05-06] MEDS ORDERED: oxyCODONE/APAP 5/325MG (PERCOCET 5) TABLET PO ONE (14:00)
[2019-05-06] MEDS ORDERED: PROMETHAZINE INJ 25 MG/ML (PHENERGAN) AMP ONE (14:07)
[2019-05-06 14:11] LABS: BASOPHILS % (AUTO) 0 % (0-10); EOSINOPHILS # (AUTO) 0.2 10^3/uL (0.0-0.3); EOSINOPHILS % (AUTO) 2 % (0-10); HEMATOCRIT 38 % (35-52); HEMOGLOBIN 12.1 G/DL (11.5-16.0); LYMPHOCYTES # (AUTO) 2.4 X 10^3 (1.0-4.0); LYMPHOCYTES % (AUTO) 27 % (12-44); MEAN CORPUSCULAR HEMOGLOBIN 26 PG (25-34); MEAN CORPUSCULAR HGB CONC 32 G/DL (32-36); MEAN CORPUSCULAR VOLUME 80 FL (80-99); MEAN PLATELET VOLUME 11.4 FL (7.4-10.4); MONOCYTES # (AUTO) 0.6 X 10^3 (0.0-1.0); MONOCYTES % (AUTO) 6 % (0-12); NEUTROPHILS % (AUTO) 65 % (42-75); PLATELET COUNT 346 10^3/uL (130-400); RED CELL DISTRIBUTION WIDTH 14.3 % (10.0-14.5); WHITE BLOOD COUNT 9.2 10^3/uL (4.3-11.0)
[2019-05-06] MEDS ORDERED: PROMETHAZINE INJ 25 MG/ML (PHENERGAN) AMP IVP ONE (14:30)
[2019-05-06 14:32] LABS: CREATININE SERUM 1.18 MG/DL (0.60-1.30)
[2019-05-06 14:33] LABS: ALBUMIN 4.4 GM/DL (3.2-4.5); BILIRUBIN,TOTAL 0.2 MG/DL (0.1-1.0); CALCIUM 10.2 MG/DL (8.5-10.1); TOTAL PROTEIN 8.7 GM/DL (6.4-8.2)
--- NOTE | 2019-05-06 15:28 | Diagnostic Imaging Report ---
PROCEDURE: US abdomen, limited. TECHNIQUE: Multiple realtime grayscale images were obtained over the abdomen in various projections. INDICATION: Status post surgery three weeks ago. Patient has some drainage from the surgical scar near the umbilicus. FINDINGS: Sonographic interrogation of the area of drainage was performed. No fluid collection is seen. No mass is identified. IMPRESSION: No sonographic abnormality is detected. Dictated by: Dictated on workstation # [id number]
--- NOTE | 2019-05-06 15:39 | ED Integumentary General ---
General Chief Complaint: Post OP Complications/Pain Stated Complaint: POST OP COMPLICATION Nursing Triage Note: PT AMBULATE TO ROOM 8 WITH CO BLEEDING FROM SURGICAL INCISION. Source: patient Exam Limitations: no limitations History of Present Illness Date Seen by Provider: May 06, 2019 Time Seen by Provider: 13:53 Allergies and Home Medications Allergies Coded Allergies: nickel (Verified Allergy, Intermediate, RASH, 01/06/19) doxycycline (Verified Allergy, Mild, HIVES, 01/06/19) Iodinated Contrast- Oral and IV Dye (Verified Allergy, Unknown, 01/06/19) penicillin (Verified Allergy, Unknown, HAS RECEIVED ROCEPHIN, 01/06/19) Home Medications Albuterol Sulfate 1 Puff Puff, 2 PUFF IH Q4H, (Reported) 1 PUFF = 90 MCG Fluoxetine HCl 40 Mg Capsule, 40 MG PO DAILY, (Reported) Fluticasone Propionate 9.9 Ml [place].susp, 1 SPRAY NS BID, (Reported) Fluticasone/Vilanterol 1 Each Blst.w.dev, 1 EACH IH DAILY, (Reported) Hydrocodone/Acetaminophen 1 Each Tablet, 1 TAB PO Q4H Prescribed by: ALFREDA ANGUIANO on 01/06/19 1236 Metformin HCl 1,000 Mg Tablet, 1,000 MG PO BID, (Reported) Pantoprazole Sodium 40 Mg Tablet.dr, 40 MG PO DAILY Prescribed by: STEPHANE KIMBLE on 12/22/18 1218 Past Cmrwhom-Gmrgvm-Nkzlug Hx Patient Social History Type Used: Cigarettes Former Smoker, Quit: May 01, 2008 2nd Hand Smoke Exposure: No Recent Foreign Travel: No Contact w/Someone Who Travel: No Recent Infectious Disease Expo: No Recent Hopitalizations: No Immunizations Up To Date Tetanus Booster (TDap): Unknown PED Vaccines UTD: No Date of Pneumonia Vaccine: Mar 13, 2018 Date of Influenza Vaccine: Jul 06, 2018 Seasonal Allergies Seasonal Allergies: Yes Past Medical History Surgeries: Yes (Partial Hysterectomy; Carpal Tunnel Nba, L KNEE x12, L shou lder, L TKR) Abdominal, Gallbladder, Hysterectomy, Oophorectomy, Orthopedic Respiratory: Yes (CPAP) Asthma, Sleep Apnea, COPD Currently Using CPAP: Yes Cardiac: No High Cholesterol Neurological: No Reproductive Disorders: No 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 Sexually Transmitted Disease: No HIV/AIDS: No Genitourinary: Yes Kidney Infection, Bladder Infection, UTI-Chronic Gastrointestinal: Yes (INFLAMATION IN COLON, VENTRAL HERNIA) Gastroesophageal Reflux, Chronic Constipation, Chronic Diarrhea, Irritable Bowel Musculoskeletal: Yes (RESTLESS LEG SYNDROME) Arthritis, Fibromyalgia, Chronic Back Pain Endocrine: Yes (OBESITY) Diabetes, Non-Insulin dep HEENT: Yes (GLASSES) Loss of Vision: Bilateral Hearing Impairment: Denies Cancer: No Psychosocial: Yes Anxiety, Bipolar Integumentary: No Blood Disorders: No Adverse Reaction/Blood Tranf: No (N/A) Family Medical History Arthritis 19 MOTHER, Onset:Unknown Asthma 19 FATHER, Onset:Unknown Cataracts 19 MOTHER, Onset:Unknown Diabetes mellitus 19 MOTHER, Onset:Unknown FH: COPD (chronic obstructive pulmonary disease) 19 FATHER, Onset:Unknown Hypercholesterolemia 19 MOTHER MS (multiple sclerosis) G8 SISTER, Onset:Unknown No Pertinent Family Hx Physical Exam Vital Signs Vital Signs - First Documented 05/06/19 13:47 Temp 99.3 Pulse 101 B/P (MAP) 110/83 (92) Pulse Ox 97 O2 Delivery Room Air Capillary Refill : Less Than 3 Seconds Progress/Results/Core Measures Results/Orders Lab Results Laboratory Tests Test 05/06/19 14:04 Range/Units White Blood Count 9.2 4.3-11.0 10^3/uL Red Blood Count 4.74 4.35-5.85 10^6/uL Hemoglobin 12.1 11.5-16.0 G/DL Hematocrit 38 35-52 % Mean Corpuscular Volume 80 80-99 FL Mean Corpuscular Hemoglobin 26 25-34 PG Mean Corpuscular Hemoglobin Concent 32 32-36 G/DL Red Cell Distribution Width 14.3 10.0-14.5 % Platelet Count 346 130-400 10^3/uL Mean Platelet Volume 11.4 H 7.4-10.4 FL Neutrophils (%) (Auto) 65 42-75 % Lymphocytes (%) (Auto) 27 12-44 % Monocytes (%) (Auto) 6 0-12 % Eosinophils (%) (Auto) 2 0-10 % Basophils (%) (Auto) 0 0-10 % Neutrophils # (Auto) 6.0 1.8-7.8 X 10^3 Lymphocytes # (Auto) 2.4 1.0-4.0 X 10^3 Monocytes # (Auto) 0.6 0.0-1.0 X 10^3 Eosinophils # (Auto) 0.2 0.0-0.3 10^3/uL Basophils # (Auto) 0.0 0.0-0.1 10^3/uL Sodium Level 139 135-145 MMOL/L Potassium Level 4.0 3.6-5.0 MMOL/L Chloride Level 102 98-107 MMOL/L Carbon Dioxide Level 24 21-32 MMOL/L Anion Gap 13 5-14 MMOL/L Blood Urea Nitrogen 13 7-18 MG/DL Creatinine 1.18 0.60-1.30 MG/DL Estimat Glomerular Filtration Rate 47 BUN/Creatinine Ratio 11 Glucose Level 125 H 70-105 MG/DL Calcium Level 10.2 H 8.5-10.1 MG/DL Corrected Calcium 9.9 8.5-10.1 MG/DL Total Bilirubin 0.2 0.1-1.0 MG/DL Aspartate Amino Transf (AST/SGOT) 29 5-34 U/L Alanine Aminotransferase (ALT/SGPT) 32 0-55 U/L Alkaline Phosphatase 113 40-136 U/L Total Protein 8.7 H 6.4-8.2 GM/DL Albumin 4.4 3.2-4.5 GM/DL My Orders Orders - GHASSAN HARVEY Cbc With Automated Diff (05/06/19 13:53) Comprehensive Metabolic Panel (05/06/19 13:53) Wound Culture (05/06/19 13:53) Oxycodone/Apap 5/325mg Tablet (Percocet (05/06/19 14:00) Promethazine Injection (Phenergan Injec (05/06/19 14:07) Promethazine Injection (Phenergan Injec (05/06/19 14:30) Us Abdomen Limited [id number] (05/06/19 ) Medications Given in ED Current Medications Medications Dose Ordered Sig/Veronika Route Start Time Stop Time Status Last Admin Dose Admin Oxycodone/ Acetaminophen 2 tab ONCE ONCE PO 05/06/19 14:00 05/06/19 14:01 DC 05/06/19 14:15 2 TAB Promethazine HCl 25 mg ONCE ONCE IVP 05/06/19 14:30 05/06/19 14:31 DC 05/06/19 14:15 25 MG Vital Signs/I&O 05/06/19 13:47 Temp 99.3 Pulse 101 B/P (MAP) 110/83 (92) Pulse Ox 97 O2 Delivery Room Air Blood Pressure Mean: 92 Departure Impression Primary Impression: Seroma after procedure Disposition: 01 HOME, SELF-CARE Condition: Stable/Unchanged Departure-Patient Inst. Decision time for Depature: 15:37 Referrals: NICKY THOMPSON MD (PCP/Family) Primary Care Physician Patient Instructions: Wound Incision and Drainage Add. Discharge Instructions: Watch for signs of infection such as increased redness, swelling, drainage, pain. Allow the seroma to drain, changes dressing frequently. Return back to the emergency room for worsening symptoms, bright red drainage, or any other concerns as needed. Call tomorrow morning to schedule an appointment with your provider for recheck to be seen in the next 3 days. Resume your home medications as previously prescribed. GHASSAN HARVEY May 06, 2019 15:39
[2019-05-06 15:45] VITALS: BP 131/84
== END 2019-05-06 15:44 | disposition home or self-care (01) ==
LOC: EDUNIT# 13:42 → ER 13:44
DX: L76.34 Postprocedural seroma of skin and subcutaneous tissue following other procedure (principal); J44.9 Chronic obstructive pulmonary disease, unspecified; G47.30 Sleep apnea, unspecified; E78.00 Pure hypercholesterolemia, unspecified; K21.9 Gastro-esophageal reflux disease without esophagitis; K58.9 Irritable bowel syndrome, unspecified; M79.7 Fibromyalgia; E11.9 Type 2 diabetes mellitus without complications; E66.9 Obesity, unspecified; F31.9 Bipolar disorder, unspecified; F41.9 Anxiety disorder, unspecified; Z87.19 Personal history of other diseases of the digestive system; Z87.440 Personal history of urinary (tract) infections; Z96.612 Presence of left artificial shoulder joint; Z96.653 Presence of artificial knee joint, bilateral; Z90.711 Acquired absence of uterus with remaining cervical stump; Z88.8 Allergy status to other drugs, medicaments and biological substances; Z88.1 Allergy status to other antibiotic agents; Z91.041 Radiographic dye allergy status; Z88.0 Allergy status to penicillin; Z79.51 Long term (current) use of inhaled steroids; Z79.84 Long term (current) use of oral hypoglycemic drugs; Z87.891 Personal history of nicotine dependence; Z68.41 Body mass index [BMI] 40.0-44.9, adult
CPT/HCPCS: 36415; 76705; 80053; 85025; 87070; 87205

== ENCOUNTER 2019-06-24 12:18 | Outpatient (CLI) | payer MEDICARE, MEDICAID ==
[~2019-06-24] VITALS: Ht 172.7 cm; Wt 119.9 kg
[2019-06-24 12:43] VITALS: BP 131/84
== END 2019-06-24 12:40 | disposition home or self-care (01) ==
LOC: PREOP 12:18
PROVIDERS: ATTEND Orthopaedic Surgery
DX: Z01.818 Encounter for other preprocedural examination (principal)
CPT/HCPCS: 87081

== ENCOUNTER 2019-06-30 07:55 | Day surgery (SDC) | payer MEDICARE, MEDICAID ==
--- NOTE | 2019-06-22 18:46 | HISTORY AND PHYSICAL ---
DATE OF SERVICE: ADMISSION HISTORY AND PHYSICAL This will be for outpatient surgery on 06/30/2019 for left knee arthroscopy. HISTORY OF PRESENT ILLNESS: The patient is a 58-year-old female, who previously underwent left total knee arthroplasty as well as lumbar procedure with complaints of left knee pain, popping and catching. Radiographs reveal well-placed components. However, she reports activity limitations because of the knee. She denies paresthesias. She reports no fever, chills or night sweats due to functional impairment and failure to improve with conservative measures. The patient has elected to proceed with surgical intervention. REVIEW OF SYSTEMS: No chest pain, no shortness of breath, no dysuria. PAST MEDICAL HISTORY: Diabetes, COPD, hypercholesterolemia, sleep apnea, bipolar disorder, allergic rhinitis, cardiomegaly, morbid obesity, asthma and arthritis. PAST SURGICAL HISTORY: Left knee cubital and carpal tunnel releases bilaterally, left shoulder, right knee, cholecystectomy and hysterectomy. FAMILY HISTORY: Significant for lupus, COPD, hypertension, diabetes. PRIMARY CARE PROVIDER: Dr. Espino. MEDICATIONS: 1. Hydrocodone. 2. Fluoxetine. 3. Metformin. 4. Fluconazole. 5. Grandy. 6. Protonix. 7. Oxycodone. ALLERGIES: PENICILLIN, DOXYCYCLINE, NICKEL AND CONTRAST DYE. SOCIAL HISTORY: The patient is a former smoker, drinks alcohol rarely. PHYSICAL EXAMINATION: GENERAL: The patient is well developed, well-nourished, in no acute distress. HEENT: Normocephalic, atraumatic. Pupils are equal, round, reactive to light. Oropharynx is clear. NECK: Supple, no lymphadenopathy. LUNGS: Clear to auscultation bilaterally. HEART: Regular rate and rhythm. ABDOMEN: Soft, nontender, nondistended. EXTREMITIES: The left knee demonstrates patellofemoral crepitus. Patella tracks well. Range of motion is 0/4/115. There is no varus or valgus laxity. Negative for anterior and posterior drawer. She has negative straight leg raise. There is no erythema or warmth. IMPRESSION: Left knee adhesions. PLAN: Left knee arthroscopy with lysis of adhesions. The risks, benefits, options, ramifications and recovery were discussed at length with the patient. She understands and wishes to proceed. Job ID: [id number] DocumentID: [id number] Dictated Date: 06/18/2019 11:22:02 Director Of Corporate Sales Date: 06/18/2019 12:45:36 Dictated By: KISHA BALDWIN MD
[2019-06-30] VITALS (12 sets, daily range): BP systolic 101–133; BP diastolic 47–81
[~2019-06-30] VITALS: Ht 172 cm; Wt 119.9 kg
[2019-06-30] MEDS ORDERED: morphine PF (DURAMORPH) 10 MG/10 ML AMP ONE (08:07)
[2019-06-30] MEDS ORDERED: BUPIVACAINE 0.25% 30 ML (SENSORCAINE) VIAL ONE (08:07)
[2019-06-30] MEDS ORDERED: LACTATED RINGERS 1,000 ML IV PRN (08:13)
[2019-06-30] MEDS ORDERED: CLINDAMYCIN 600 MG/50 ML IVPB 50 ML IV ONE (08:15)
[2019-06-30] MEDS ORDERED: proPOfol 200 MG/20 ML (DIPRIVAN) VIAL IV ONE (08:21)
[2019-06-30] MEDS ORDERED: LIDOCAINE PF 2% 5 ML (XYLOCAINE) VIAL ONE (08:21)
[2019-06-30] MEDS ORDERED: SEVOFLURANE (ULTANE) 15 ML INHAL SOLN ONE (08:21)
[2019-06-30] MEDS ORDERED: ONDANSETRON 4 MG/2 ML (SDV) Z0FRAN ONE (08:21)
[2019-06-30] MEDS ORDERED: MIDAZOLAM 2 MG/2 ML (VERSED) VIAL ONE (08:22)
[2019-06-30] MEDS ORDERED: fentaNYL INJECTION 100 MCG/2 ML AMP ONE (08:22)
[2019-06-30] MEDS ORDERED: FAMOTIDINE 20MG/2ML IV (PEPCID) IV ONE (08:30)
[2019-06-30] MEDS ORDERED: FAMOTIDINE 20MG/2ML IV (PEPCID) ONE (08:39)
--- NOTE | 2019-06-30 08:58 | Progress Note-Pre Operative ---
Pre-Operative Progress Note H&P Reviewed The H&P was reviewed, patient examined and no changes noted. Date Seen by Provider: Jun 30, 2019 Time Seen by Provider: 08:57 Date H&P Reviewed: Jun 30, 2019 Time H&P Reviewed: 08:57 Pre-Operative Diagnosis: left knee adhesions KISHA BALDWIN MD Jun 30, 2019 08:58
--- NOTE | 2019-06-30 09:00 | Progress Note-Post Operative ---
Post-Operative Progess Note Surgeon (s)/Nurse Healthcare Manager (s) Surgeon KISHA BALDWIN MD Nurse Healthcare Manager: Boy Shepherd Pre-Operative Diagnosis left knee adhesions Post-Operative Diagnosis left knee adhesions Procedure & Operative Findings Date of Procedure 06/30/19 Procedure Performed/Findings left knee arthroscopic lysis of adhesions Anesthesia Type GETA Estimated Blood Loss Estimated blood loss (mL): minimal Specimens/Packing Specimens Removed none Packing: none KISHA BALDWIN MD Jun 30, 2019 09:00
[2019-06-30] MEDS ORDERED: ATROPINE INJ 0.4 MG/ML SDV ONE (09:18)
[2019-06-30] MEDS ORDERED: HYDROcodone/APAP 7.5 MG/325 MG (LORTAB, LORCET PLUS) TABLET PO PRN (09:45)
[2019-06-30] MEDS ORDERED: morphine INJ 10 MG/ML 1ML (SYR OR VIAL) IVP ONE (10:00)
[2019-06-30] MEDS ORDERED: MEPERIDINE (DEMEROL) INJ 50 MG/ML IVP ONE (10:00)
[2019-06-30] MEDS ORDERED: fentaNYL INJECTION 100 MCG/2 ML AMP IVP ONE (10:00)
[2019-06-30] MEDS ORDERED: HYDR-3816 PO (10:55)
--- NOTE | 2019-06-30 10:57 | Anesthesia-General Post-Op ---
General Patient Condition Mental Status/LOC: Same as Preop Cardiovascular: Satisfactory Nausea/Vomiting: Absent Respiratory: Satisfactory Pain: Controlled Complications: Absent Post Op Complications Complications None Follow Up Care/Instructions Patient Instructions None needed. Anesthesia/Patient Condition Patient Condition Patient is doing well, no complaints, stable vital signs, no apparent adverse anesthesia problems. No complications reported per nursing. CHLOE TOMLINSON DO Jun 30, 2019 10:57
[2019-06-30] MEDS ORDERED: diphenhydrAMINE 50 MG/ML INJ (BENADRYL) IVP ONE (11:00)
--- NOTE | 2019-06-30 13:03 | OPERATIVE REPORT ---
DATE OF SERVICE: PREOPERATIVE DIAGNOSIS: Left knee adhesions status post total knee arthroplasty. POSTOPERATIVE DIAGNOSIS: Left knee adhesions status post total knee arthroplasty. PROCEDURE: Left knee arthroscopic lysis of adhesions. SURGEON: Zion Baldwin MD MANAGER FIELD SERVICES: KIKA Cantrell, who assisted throughout the procedure and closed the incisions. ANESTHESIA: General endotracheal by Boy Justin CRNA. TOURNIQUET TIME: Not applicable. ESTIMATED BLOOD LOSS: Minimal. DRAINS: None. COMPLICATIONS: None. POSTOPERATIVE PLAN: Routine arthroscopy protocol. The patient was transferred to the recovery room awake and in stable condition. STATEMENT OF MEDICAL NECESSITY: The patient is a 58-year-old female who previously underwent left total knee arthroplasty, complained of pain in the anterior aspect of her knee. There was some crepitus noted with some loss of extension. It was felt that she likely had adhesions and due to functional impairment and failure to improve with conservative measures, the patient elected to proceed with surgical intervention. DESCRIPTION OF PROCEDURE: After risks and benefits of the procedure were discussed and questions were answered, an informed consent was signed and placed on chart in the preoperative holding area initialed by the surgeon. The patient was transferred to the operating room and after adequate levels of general endotracheal anesthetic were obtained, a timeout was called, confirming the operative site. The left lower extremity was prepped and draped in the usual sterile fashion. The knee joint was injected with 60 mL of fluid. A standard inferolateral portal was placed for the arthroscope under direct visualization, inferior medial portal was created. There were dense adhesions anteriorly both medially and laterally. Suprapatellar pouch demonstrated no significant abnormalities. The prosthesis was well positioned without evidence of loosening. The adhesions were resected through both the inferomedial and inferolateral portals until fully resected. This improved the patient's extension. The knee was copiously irrigated. The portal sites were closed with 4-0 nylon in simple interrupted fashion. A soft dressing was applied. The patient was transferred to the recovery room awake and in stable condition. Job ID: [id number] DocumentID: [id number] Dictated Date: 06/30/2019 09:43:16 Field Assembly Supervisor Date: 06/30/2019 13:03:17 Dictated By: ZION BALDWIN MD
== END 2019-06-30 12:15 | disposition home or self-care (01) ==
LOC: SDC 07:55
PROVIDERS: ATTEND Orthopaedic Surgery
DX: M23.8X2 Other internal derangements of left knee (principal); I42.9 Cardiomyopathy, unspecified; E78.00 Pure hypercholesterolemia, unspecified; E66.01 Morbid (severe) obesity due to excess calories; M19.90 Unspecified osteoarthritis, unspecified site; G47.33 Obstructive sleep apnea (adult) (pediatric); K21.9 Gastro-esophageal reflux disease without esophagitis; E11.9 Type 2 diabetes mellitus without complications; J44.9 Chronic obstructive pulmonary disease, unspecified; Z90.710 Acquired absence of both cervix and uterus; Z90.49 Acquired absence of other specified parts of digestive tract; Z79.891 Long term (current) use of opiate analgesic; Z79.84 Long term (current) use of oral hypoglycemic drugs; Z79.899 Other long term (current) drug therapy; Z88.0 Allergy status to penicillin; Z88.6 Allergy status to analgesic agent; Z91.041 Radiographic dye allergy status; Z87.891 Personal history of nicotine dependence; Z88.8 Allergy status to other drugs, medicaments and biological substances
CPT/HCPCS: 82962

== ENCOUNTER 2019-08-05 16:09 | Emergency (ER) | payer MEDICARE, MEDICAID ==
[~2019-08-05] VITALS: Ht 175.2 cm; Wt 122.6 kg
[2019-08-05] MEDS ORDERED: METOCLOPRAMIDE INJ 10 MG/2 ML (REGLAN) IVP STA (17:03)
[2019-08-05] MEDS ORDERED: methylPREDNISolone 125 MG (Solu-MEDROL) VIAL IV STA (17:03)
[2019-08-05] MEDS ORDERED: NS IV 1000 ML 1,000 ML IV SCH (17:03)
--- NOTE | 2019-08-05 17:11 | ED Cough/URI ---
General Chief Complaint: Respiratory Problems Stated Complaint: FACIAL PRESSURE,BODY ACHES Nursing Triage Note: C/O FELLING SOA CONGESTION FOR DAYS Sepsis Screen: No Definite Risk Source: patient Exam Limitations: no limitations History of Present Illness Date Seen by Provider: Aug 05, 2019 Time Seen by Provider: 16:50 Initial Comments 58-year-old female presents with generalized malaise, headache, shortness of breath, cough, sore throat, nausea. Patient reports his symptoms have been gone for a couple days. Patient reports a history of COPD and need for inhalers. Patient reports that she did get her flu shot about a week ago. She has some subjective fever. Patient's main complaint is just a headache and sinus pressure. No vomiting, diarrhea, chest pain or urinary symptoms Allergies and Home Medications Allergies Coded Allergies: nickel (Verified Allergy, Intermediate, RASH, 01/06/19) doxycycline (Verified Allergy, Mild, HIVES, 01/06/19) Iodinated Contrast Media (Verified Allergy, Unknown, 01/06/19) cobalt (Verified Allergy, Unknown, Hives, 06/24/19) penicillin (Verified Allergy, Unknown, HAS RECEIVED ROCEPHIN, 06/30/19) rash Uncoded Allergies: hexachloride (Allergy, Unknown, Hives, 06/24/19) Home Medications Albuterol Sulfate 1 Puff Puff, 2 PUFF IH Q4H PRN for WHEEZING, (Reported) 1 PUFF = 90 MCG Fluoxetine HCl 40 Mg Capsule, 40 MG PO DAILY, (Reported) Fluticasone Propionate 9.9 Ml [place].susp, 1 SPRAY NS BID, (Reported) Fluticasone/Vilanterol 1 Each Blst.w.dev, 1 EACH IH DAILY, (Reported) Hydrocodone/Acetaminophen 1 Each Tablet, 1 TAB PO Q4H PRN for PAIN-MODERATE Prescribed by: OLIVA HOUSE on 06/30/19 1055 Levofloxacin 500 Mg Tablet, 500 MG PO DAILY Prescribed by: ARELY KOROMA on 08/05/191806 Metformin HCl 1,000 Mg Tablet, 1,000 MG PO BID, (Reported) Pantoprazole Sodium 40 Mg Tablet.dr, 40 MG PO DAILY Prescribed by: STEPHANE KIMBLE on 12/22/18 1218 Prednisone 20 Mg Tab, 40 MG PO DAILY Prescribed by: ARELY KOROMA on 08/05/19 1807 Patient Home Medication List Home Medication List Reviewed: Yes Review of Systems Review of Systems Constitutional: chills, malaise EENTM: throat pain Respiratory: cough, short of breath, wheezing Cardiovascular: No chest pain Gastrointestinal: No abdominal pain, No constipation, No diarrhea; nausea; No vomiting Musculoskeletal: no symptoms reported Skin: no symptoms reported Psychiatric/Neurological: No Symptoms Reported Past Wyprvuz-Nyvrli-Xgddox Hx Past Med/Social Hx: Reviewed Nursing Past Med/Soc Hx Patient Social History Alcohol Use: Denies Use Recreational Drug Use: No Smoking Status: Current Everyday Smoker Type Used: Cigarettes Former Smoker, Quit: May 01, 2008 2nd Hand Smoke Exposure: No Recent Foreign Travel: No Contact w/Someone Who Travel: No Recent Infectious Disease Expo: No Recent Hopitalizations: No Immunizations Up To Date Tetanus Booster (TDap): Unknown PED Vaccines UTD: No Date of Pneumonia Vaccine: Mar 13, 2018 Date of Influenza Vaccine: Jul 06, 2018 Seasonal Allergies Seasonal Allergies: Yes Past Medical History Surgeries: Yes (bilat CTR, L KNEE x12, L shoulder, L TKR, back sx) Abdominal, Gallbladder, Hysterectomy, Oophorectomy, Orthopedic Respiratory: Yes (CPAP) Asthma, Sleep Apnea, COPD Currently Using CPAP: Yes Cardiac: No High Cholesterol Neurological: No Reproductive Disorders: No 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 Sexually Transmitted Disease: No HIV/AIDS: No Genitourinary: Yes Kidney Infection, Bladder Infection, UTI-Chronic Gastrointestinal: Yes (INFLAMATION IN COLON, VENTRAL HERNIA) Gastroesophageal Reflux, Chronic Constipation, Chronic Diarrhea, Irritable Bowel Musculoskeletal: Yes (RESTLESS LEG SYNDROME) Arthritis, Fibromyalgia, Chronic Back Pain Endocrine: Yes (OBESITY) Diabetes, Non-Insulin dep HEENT: Yes (GLASSES) Loss of Vision: Bilateral Hearing Impairment: Denies Cancer: No Psychosocial: Yes Anxiety, Bipolar Integumentary: No Blood Disorders: No Adverse Reaction/Blood Tranf: No (N/A) Family Medical History Arthritis 19 MOTHER, Onset:Unknown Asthma 19 FATHER, Onset:Unknown Cataracts 19 MOTHER, Onset:Unknown Diabetes mellitus 19 MOTHER, Onset:Unknown FH: COPD (chronic obstructive pulmonary disease) 19 FATHER, Onset:Unknown Hypercholesterolemia 19 MOTHER MS (multiple sclerosis) G8 SISTER, Onset:Unknown No Pertinent Family Hx Physical Exam Vital Signs - First Documented 08/05/19 08/05/19 16:23 18:28 Temp 37.3 Pulse 108 Resp 18 B/P (MAP) 141/102 (115) Pulse Ox 99 O2 Delivery Room Air Capillary Refill : Less Than 3 Seconds Height: 5'9.00" Weight: 288lbs. 0.0oz. 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, no motor/sensory deficits, alert, normal mood/affect, oriented x 3 Skin: normal color, warm/dry Focused Exam Lactate Level 08/05/19 17:05: Lactic Acid Level 2.55*H Lactic Acid Level Laboratory Tests Test 08/05/19 17:05 Lactic Acid Level 2.55 MMOL/L (0.50-2.00) *H Progress/Results/Core Measures Suspected Sepsis Recent Fever Within 48 Hours: No Infection Criteria Present: None New/Unexplained Altered Menta: No Sepsis Screen: No Definite Risk SIRS Temperature: Pulse: 108 Respiratory Rate: 18 Laboratory Tests 08/05/19 17:05: White Blood Count 9.4 Blood Pressure 141 /102 Mean: 115 08/05/19 17:05: Lactic Acid Level 2.55*H Laboratory Tests 08/05/19 17:05: Creatinine 0.83, Platelet Count 203, Total Bilirubin 0.3 Results/Orders Lab Results Laboratory Tests Test 08/05/19 17:05 Range/Units White Blood Count 9.4 4.3-11.0 10^3/uL Red Blood Count 4.93 4.35-5.85 10^6/uL Hemoglobin 12.4 11.5-16.0 G/DL Hematocrit 39 35-52 % Mean Corpuscular Volume 79 L 80-99 FL Mean Corpuscular Hemoglobin 25 25-34 PG Mean Corpuscular Hemoglobin Concent 32 32-36 G/DL Red Cell Distribution Width 16.0 H 10.0-14.5 % Platelet Count 203 130-400 10^3/uL Mean Platelet Volume 12.7 H 7.4-10.4 FL Neutrophils (%) (Auto) 65 42-75 % Lymphocytes (%) (Auto) 25 12-44 % Monocytes (%) (Auto) 8 0-12 % Eosinophils (%) (Auto) 2 0-10 % Basophils (%) (Auto) 0 0-10 % Neutrophils # (Auto) 6.1 1.8-7.8 X 10^3 Lymphocytes # (Auto) 2.4 1.0-4.0 X 10^3 Monocytes # (Auto) 0.7 0.0-1.0 X 10^3 Eosinophils # (Auto) 0.2 0.0-0.3 10^3/uL Basophils # (Auto) 0.0 0.0-0.1 10^3/uL Sodium Level 137 135-145 MMOL/L Potassium Level 3.7 3.6-5.0 MMOL/L Chloride Level 104 98-107 MMOL/L Carbon Dioxide Level 21 21-32 MMOL/L Anion Gap 12 5-14 MMOL/L Blood Urea Nitrogen 12 7-18 MG/DL Creatinine 0.83 0.60-1.30 MG/DL Estimat Glomerular Filtration Rate > 60 BUN/Creatinine Ratio 14 Glucose Level 169 H 70-105 MG/DL Lactic Acid Level 2.55 *H 0.50-2.00 MMOL/L Calcium Level 9.0 8.5-10.1 MG/DL Corrected Calcium 8.9 8.5-10.1 MG/DL Total Bilirubin 0.3 0.1-1.0 MG/DL Aspartate Amino Transf (AST/SGOT) 46 H 5-34 U/L Alanine Aminotransferase (ALT/SGPT) 46 0-55 U/L Alkaline Phosphatase 101 40-136 U/L Total Protein 7.6 6.4-8.2 GM/DL Albumin 4.1 3.2-4.5 GM/DL Micro Results Microbiology 08/05/19 Influenza Types A,B Antigen (CHRIS) - Final, Complete My Orders Orders - ARELY KOROMA DO Cbc With Automated Diff (08/05/19 17:03) Comprehensive Metabolic Panel (08/05/19 17:03) Ed Iv/Invasive Line Start (08/05/19 17:03) Lactic Acid Analyzer (08/05/19 17:03) Influenza A And B Antigens (08/05/19 17:03) Ns Iv 1000 Ml (Sodium Chloride 0.9%) (08/05/19 17:03) Chest Pa/Lat (2 View) (08/05/19 17:03) Albuterol/Ipra Inhalation Soln (Duoneb I (08/05/19 17:15) Methylprednisolone Sod Succ (Solu-Medrol (08/05/19 17:03) Svn Small Volume Nebulizer (08/05/19 17:03) Metoclopramide Injection (Reglan Injecti (08/05/19 17:03) Ketorolac Injection (Toradol Injection) (08/05/19 17:15) Ketorolac Injection (Toradol Injection) (08/05/19 17:12) Medications Given in ED Vital Signs/I&O 08/05/19 08/05/19 08/05/19 08/05/19 16:23 17:19 17:19 18:28 Temp 37.3 37.3 37.3 37.2 Pulse 108 105 Resp 18 18 B/P (MAP) 141/102 (115) 127/73 (115) Pulse Ox 99 99 O2 Delivery Room Air Capillary Refill : Less Than 3 Seconds Blood Pressure Mean: 115 POS Departure Impression Primary Impression: COPD (chronic obstructive pulmonary disease) Qualified Codes: J44.0 - Chronic obstructive pulmonary disease with (acute) lower respiratory infection Additional Impressions: COPD exacerbation Acute viral syndrome Disposition: 01 HOME, SELF-CARE Condition: Stable Departure-Patient Inst. Referrals: NICKY THOMPSON MD (PCP/Family) Primary Care Physician Patient Instructions: Exacerbation of COPD, Chronic Obstructive Pulmonary Disease (COPD), Including Emphysema, Acute Bronchitis, Adult (DC) Scripts Prednisone (Prednisone) 20 Mg Tab 40 MG PO DAILY, #6 TAB 0 Refills Prov: KOROMA,ARELY L DO 08/05/19 Levofloxacin (Levofloxacin) 500 Mg Tablet 500 MG PO DAILY, #7 TAB 0 Refills Prov: KOROMA,ARELY L DO 08/05/19 HODAN KOROMAR L DO Aug 05, 2019 17:11 POS
[2019-08-05] MEDS ORDERED: KETOROLAC 30 MG/ML VIAL ONE (17:12)
[2019-08-05] MEDS ORDERED: KETOROLAC 15 MG/ML VIAL IVP ONE (17:15)
[2019-08-05] MEDS ORDERED: RT-ALBUTEROL/IPRATROPIUM 3 ML (DUONEB) VIAL INH ONE (17:15)
[2019-08-05 17:25] LABS: BASOPHILS % (AUTO) 0 % (0-10); EOSINOPHILS # (AUTO) 0.2 10^3/uL (0.0-0.3); EOSINOPHILS % (AUTO) 2 % (0-10); HEMATOCRIT 39 % (35-52); HEMOGLOBIN 12.4 G/DL (11.5-16.0); LYMPHOCYTES # (AUTO) 2.4 X 10^3 (1.0-4.0); LYMPHOCYTES % (AUTO) 25 % (12-44); MEAN CORPUSCULAR HEMOGLOBIN 25 PG (25-34); MEAN CORPUSCULAR HGB CONC 32 G/DL (32-36); MEAN CORPUSCULAR VOLUME 79 FL (80-99); MEAN PLATELET VOLUME 12.7 FL (7.4-10.4); MONOCYTES # (AUTO) 0.7 X 10^3 (0.0-1.0); MONOCYTES % (AUTO) 8 % (0-12); NEUTROPHILS # (AUTO) 6.1 X 10^3 (1.8-7.8); NEUTROPHILS % (AUTO) 65 % (42-75); PLATELET COUNT 203 10^3/uL (130-400); WHITE BLOOD COUNT 9.4 10^3/uL (4.3-11.0)
[2019-08-05 17:54] LABS: ALANINE AMINOTRANSFERASE 46 U/L (0-55); ALBUMIN 4.1 GM/DL (3.2-4.5); ALKALINE PHOSPHATASE 101 U/L (40-136); BILIRUBIN,TOTAL 0.3 MG/DL (0.1-1.0); BUN/CREATININE RATIO 14; CARBON DIOXIDE 21 MMOL/L (21-32); CHLORIDE 104 MMOL/L (98-107); CREATININE SERUM 0.83 MG/DL (0.60-1.30); GFR ESTIMATED > 60; GLUCOSE 169 MG/DL (70-105); POTASSIUM 3.7 MMOL/L (3.6-5.0); SODIUM 137 MMOL/L (135-145); TOTAL PROTEIN 7.6 GM/DL (6.4-8.2)
--- NOTE | 2019-08-05 17:55 | Diagnostic Imaging Report ---
EXAMINATION: Chest 2 views. HISTORY: Chest pain. FINDINGS: Comparison is 11/29/2018. The lungs are clear. No edema. No pneumonia. No pleural effusion. No pneumothorax. Heart is normal in size. IMPRESSION: 1. Clear lungs. Dictated by: Dictated on workstation # [id number]
[2019-08-05] MEDS ORDERED: LEVO500T80 PO (18:07)
[2019-08-05] MEDS ORDERED: PRD20T PO (18:07)
[2019-08-05 18:28] VITALS: BP 127/73
== END 2019-08-05 18:28 | disposition home or self-care (01) ==
LOC: EDUNIT# 16:09 → ER 16:13
DX: J44.1 Chronic obstructive pulmonary disease with (acute) exacerbation (principal); B34.9 Viral infection, unspecified; G47.30 Sleep apnea, unspecified; J45.909 Unspecified asthma, uncomplicated; E78.00 Pure hypercholesterolemia, unspecified; F17.210 Nicotine dependence, cigarettes, uncomplicated; K58.9 Irritable bowel syndrome, unspecified; M79.7 Fibromyalgia; E11.9 Type 2 diabetes mellitus without complications; F41.9 Anxiety disorder, unspecified; F31.9 Bipolar disorder, unspecified; Z87.440 Personal history of urinary (tract) infections; Z96.652 Presence of left artificial knee joint; Z96.642 Presence of left artificial hip joint; Z88.8 Allergy status to other drugs, medicaments and biological substances; Z88.1 Allergy status to other antibiotic agents; Z88.0 Allergy status to penicillin; Z79.51 Long term (current) use of inhaled steroids; Z79.84 Long term (current) use of oral hypoglycemic drugs
CPT/HCPCS: 36415; 71046; 80053; 83605; 85025; 87804

== ENCOUNTER → 2019-08-19 | Outpatient (CLI) | payer MEDICARE, MEDICAID ==
[~2019-08-19] MED LIST changes: +LEVO500T80 PO
--- NOTE | 2019-08-19 14:24 | Diagnostic Imaging Report ---
INDICATION: Routine screening. COMPARISON: Comparison is made with prior mammograms from 05/26/2017 and 07/14/2015. TECHNIQUE: 2-D and 3-D bilateral screening mammography was performed. The current study was also evaluated with a Computer Aided Detection (CAD) system. 3-D tomosynthesis was also performed and reviewed. FINDINGS: Both breasts are heterogeneously dense, limiting the sensitivity of mammography. Circumscribed nodular density in the outer aspect of the left breast mid depth appears stable. No new mass or malignant-appearing microcalcifications are seen. The axillae are unremarkable. IMPRESSION: No mammographic features suspicious for malignancy are identified. ACR BI-RADS Category 2: Benign findings. Result letter will be mailed to the patient. Note: At least 10% of breast cancer is not imaged by mammography. Dictated by: Dictated on workstation # [id number]
== END ==
LOC: RAD 10:38
PROVIDERS: ATTEND Family Medicine
DX: Z12.31 Encounter for screening mammogram for malignant neoplasm of breast (principal); Z00.00 Encounter for general adult medical examination without abnormal findings
CPT/HCPCS: 77067

== ENCOUNTER 2019-09-28 10:10 | Emergency (ER) | payer MEDICARE, MEDICAID ==
[~2019-09-28] VITALS: Ht 175 cm; Wt 124.7 kg
--- NOTE | 2019-09-28 10:48 | ED GI ---
General Chief Complaint: Abdominal/GI Problems Stated Complaint: ABD PAIN/KNOT NAUSEA Nursing Triage Note: ARRIVED VIA AMB TO ROOM 07 WITH COMPLAINTS OF LEFT SIDED ABD PAIN X4-5 DAYS. Sepsis Screen: No Definite Risk Source of Information: Patient Exam Limitations: No Limitations History of Present Illness Date Seen by Provider: Sep 28, 2019 Time Seen by Provider: 10:48 Initial Comments Left periumbilical abdominal pain 4 days, history of anterior approach for low back surgery one year ago, she believes that may be the cause of her abdominal pain currently, she states she can feel the area of tenderness in the abdominal wall. No fevers no nausea no vomiting no diarrhea. No dysuria. Severity/Quality: Moderate Location: Periumbilical Radiation: No Radiation Activities at Onset: None Associated Symptoms: Denies Symptoms Allergies and Home Medications Allergies Coded Allergies: nickel (Verified Allergy, Intermediate, RASH, 01/06/19) doxycycline (Verified Allergy, Mild, HIVES, 01/06/19) Iodinated Contrast Media (Verified Allergy, Unknown, 01/06/19) cobalt (Verified Allergy, Unknown, Hives, 06/24/19) penicillin (Verified Allergy, Unknown, HAS RECEIVED ROCEPHIN, 06/30/19) rash Uncoded Allergies: hexachloride (Allergy, Unknown, Hives, 06/24/19) Home Medications Albuterol Sulfate 1 Puff Puff, 2 PUFF IH Q4H PRN for WHEEZING, (Reported) 1 PUFF = 90 MCG Fluoxetine HCl 40 Mg Capsule, 40 MG PO DAILY, (Reported) Fluticasone Propionate 9.9 Ml Romeo.susp, 1 SPRAY NS BID, (Reported) Fluticasone/Vilanterol 1 Each Blst.w.dev, 1 EACH IH DAILY, (Reported) Hydrocodone/Acetaminophen 1 Each Tablet, 1 TAB PO Q4H PRN for PAIN-MODERATE Prescribed by: OLIVA HOUSE on 06/30/19 1055 Levofloxacin 500 Mg Tablet, 500 MG PO DAILY Prescribed by: ARELY KOROMA on 08/05/191806 Metformin HCl 1,000 Mg Tablet, 1,000 MG PO BID, (Reported) Pantoprazole Sodium 40 Mg Tablet.dr, 40 MG PO DAILY Prescribed by: STEPHANE KIMBLE on 12/22/18 1218 Prednisone 20 Mg Tab, 40 MG PO DAILY Prescribed by: ARELY KOROMA on 08/05/19 180 Patient Home Medication List Home Medication List Reviewed: Yes Review of Systems Review of Systems Constitutional: see HPI EENTM: No Symptoms Reported Respiratory: No Symptoms Reported Cardiovascular: No Symptoms Reported Gastrointestinal: See HPI, Abdominal Pain Genitourinary: No Symptoms Reported Musculoskeletal: no symptoms reported Skin: no symptoms reported Psychiatric/Neurological: No Symptoms Reported Endocrine: No Symptoms Reported Hematologic/Lymphatic: No Symptoms Reported Past Ruoxquj-Dtwebj-Hujuum Hx Patient Social History Alcohol Use: Denies Use Recreational Drug Use: No Type Used: Cigarettes Former Smoker, Quit: May 01, 2008 2nd Hand Smoke Exposure: No Recent Foreign Travel: No Contact w/Someone Who Travel: No Recent Infectious Disease Expo: No Recent Hopitalizations: No Immunizations Up To Date Tetanus Booster (TDap): Unknown PED Vaccines UTD: No Date of Pneumonia Vaccine: Mar 13, 2018 Date of Influenza Vaccine: Jul 06, 2018 Seasonal Allergies Seasonal Allergies: Yes Past Medical History Surgeries: Yes (bilat CTR, L KNEE x12, L shoulder, L TKR, back sx) Abdominal, Gallbladder, Hysterectomy, Oophorectomy, Orthopedic Respiratory: Yes (CPAP) Asthma, Sleep Apnea, COPD Currently Using CPAP: Yes Cardiac: No High Cholesterol Neurological: No Reproductive Disorders: No 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 Sexually Transmitted Disease: No HIV/AIDS: No Genitourinary: Yes Kidney Infection, Bladder Infection, UTI-Chronic Gastrointestinal: Yes (INFLAMATION IN COLON, VENTRAL HERNIA) Gastroesophageal Reflux, Chronic Constipation, Chronic Diarrhea, Irritable Bowel Musculoskeletal: Yes (RESTLESS LEG SYNDROME) Arthritis, Fibromyalgia, Chronic Back Pain Endocrine: Yes (OBESITY) Diabetes, Non-Insulin dep HEENT: Yes (GLASSES) Loss of Vision: Bilateral Hearing Impairment: Denies Cancer: No Psychosocial: Yes Anxiety, Bipolar Integumentary: No Blood Disorders: No Adverse Reaction/Blood Tranf: No (N/A) Family Medical History Arthritis 19 MOTHER, Onset:Unknown Asthma 19 FATHER, Onset:Unknown Cataracts 19 MOTHER, Onset:Unknown Diabetes mellitus 19 MOTHER, Onset:Unknown FH: COPD (chronic obstructive pulmonary disease) 19 FATHER, Onset:Unknown Hypercholesterolemia 19 MOTHER MS (multiple sclerosis) G8 SISTER, Onset:Unknown No Pertinent Family Hx Physical Exam Vital Signs Vital Signs - First Documented 09/28/19 10:30 Temp 36.6 Pulse 80 Resp 16 B/P (MAP) 147/84 (105) Pulse Ox 95 O2 Delivery Room Air Capillary Refill : Less Than 3 Seconds Height/Weight/BMI Height: 5'9.00" Weight: 288lbs. 0.0oz. 130.107449nl; 40.00 BMI Method:Stated General Appearance: WD/WN, no apparent distress, obese (due to her obesity I am unable to palpate any abdominal wall defect myself) Neck: non-tender, full range of motion Respiratory: no respiratory distress, no accessory muscle use Gastrointestinal: normal bowel sounds, soft, tenderness, other (skin overlying the area of tenderness has a normal appearance without bruising or erythema. ) Extremities: normal range of motion, non-tender Neurologic/Psychiatric: alert, normal mood/affect, oriented x 3 Skin: normal color, warm/dry Progress/Results/Core Measures Results/Orders Lab Results Laboratory Tests Test 09/28/19 11:18 Range/Units Urine Color YELLOW Urine Clarity CLEAR Urine pH 5.5 5-9 Urine Specific [place] >=1.030 1.016-1.022 Urine Protein NEGATIVE NEGATIVE Urine Glucose (UA) NEGATIVE NEGATIVE Urine Ketones NEGATIVE NEGATIVE Urine Nitrite NEGATIVE NEGATIVE Urine Bilirubin NEGATIVE NEGATIVE Urine Urobilinogen 0.2 < = 1.0 MG/DL Urine Leukocyte Esterase NEGATIVE NEGATIVE Urine RBC (Auto) NEGATIVE NEGATIVE Urine RBC NONE /HPF Urine WBC NONE /HPF Urine Squamous Epithelial Cells TNTC H /HPF Urine Crystals NONE /LPF Urine Bacteria MODERATE H /HPF Urine Casts NONE /LPF Urine Mucus NEGATIVE /LPF Urine Culture Indicated NO My Orders Orders - JANELLE ESPITIA APRN Ct Abdomen/Pelvis Wo (09/28/19 10:47) Ua Culture If Indicated (09/28/19 10:52) Promethazine Injection (Phenergan Injec (09/28/19 11:30) Ketorolac Injection (Toradol Injection) (09/28/19 11:30) Vital Signs/I&O 09/28/19 10:30 Temp 36.6 Pulse 80 Resp 16 B/P (MAP) 147/84 (105) Pulse Ox 95 O2 Delivery Room Air Blood Pressure Mean: 105 Diagnostic Imaging Diagonstic Imaging: CT Comments NAME: LENNY OROSCO [facility] REC#: [id number] PT STATUS: REG ER : 1960 PHYSICIAN: JANELLE ESPITIA APRN ADMIT DATE: 09/28/19/ER Draft Date of Exam:09/28/19 CT ABDOMEN/PELVIS WO PROCEDURE: CT abdomen and pelvis without contrast. TECHNIQUE: Multiple contiguous axial images were obtained through the abdomen and pelvis without the use of intravenous contrast. Auto Exposure Controls were utilized during the CT exam to meet ALARA standards for radiation dose reduction. INDICATION: Periumbilical pain with nausea. COMPARISON: 06/15/2018. FINDINGS: There is a left periumbilical and infraumbilical region of infiltration and distortion of the subcutaneous fat. There may be some herniation of peritoneal fat through a defect; correlate with any surgical history as this may reflect scarring from interval surgery versus inflammatory changes associated with new fatty periumbilical hernia. No herniation of viscus. No rectus sheath fluid collection. No ascites, abscess, hematoma, or fluid collection. There is no appendicitis or diverticulitis. The gallbladder is surgically absent. There is mild hepatic fatty infiltration, chronic. Urinary tracts are unobstructed. The adrenals and spleen are negative. The aorta is non-aneurysmal. There are degenerative and postoperative changes to the spine with no acute osseous pathology. The lung bases are nonacute. IMPRESSION: 1. Periumbilical infiltration of the fat, indeterminate, scarring from interval surgery versus inflammatory changes associated with a small fatty hernia; correlate with any interval surgery. This is new from the study of 2018. 2. No herniation of viscus. There is no bowel, biliary, or urinary tract obstruction. No ascites or fluid collection. Chronic mild fatty infiltration of the liver. Prior cholecystectomy. Non-aneurysmal atherosclerosis; otherwise, negative. Dictated on workstation # [id number] Dict: 09/28/19 1139 Trans: 09/28/19 1200 [id number] Interpreted by: MELODY OCONNELL Electronically signed by: Departure Impression Primary Impression: Periumbilical abdominal pain Disposition: 01 HOME, SELF-CARE Condition: Improved Departure-Patient Inst. Decision time for Depature: 12:04 Referrals: ZEINA TONEY BRETT D DO GAULT, HOLLY R MD (PCP/Family) Primary Care Physician VINICIUS GRACE MD Patient Instructions: Acute Abdomen (Belly Pain), Adult (DC) Add. Discharge Instructions: 1. call one of the surgeons listed to make an appointment to be seen. This pain you're having does coincide with the slightly abnormal appearance of your abdominal wall on CT. This could represent scar tissue from the prior surgery or it could represent a small fat-containing hernia. Anti-inflammatories as directed such as ibuprofen. All discharge instructions reviewed with patient and/or family. Voiced understanding. JANELLE ESPITIA APRN Sep 28, 2019 10:48
--- NOTE | 2019-09-28 11:01 | NUR ---
REPORT GIVEN TO LEN
[2019-09-28] MEDS ORDERED: PROMETHAZINE INJ 25 MG/ML (PHENERGAN) AMP IM ONE (11:30)
[2019-09-28] MEDS ORDERED: KETOROLAC 60 MG/2 ML VIAL IM ONE (11:30)
[2019-09-28 11:38] LABS: BILIRUBIN,URINE NEGATIVE (NEGATIVE); CLARITY,URINE CLEAR; COLOR,URINE YELLOW; GLUCOSE, URINE (UA) NEGATIVE (NEGATIVE); KETONES,URINE NEGATIVE (NEGATIVE); LEUKOCYTE ESTERASE ,URINE NEGATIVE (NEGATIVE); NITRITE,URINE NEGATIVE (NEGATIVE); PH,URINE 5.5 (5-9); PROTEIN,URINE NEGATIVE (NEGATIVE)
[2019-09-28 11:40] LABS: BACTERIA,URINE MODERATE /HPF; SQUAMOUS EPITHELIAL CELL,UR TNTC /HPF
--- NOTE | 2019-09-28 12:01 | Diagnostic Imaging Report ---
PROCEDURE: CT abdomen and pelvis without contrast. TECHNIQUE: Multiple contiguous axial images were obtained through the abdomen and pelvis without the use of intravenous contrast. Auto Exposure Controls were utilized during the CT exam to meet ALARA standards for radiation dose reduction. INDICATION: Periumbilical pain with nausea. COMPARISON: 06/15/2018. FINDINGS: There is a left periumbilical and infraumbilical region of infiltration and distortion of the subcutaneous fat. There may be some herniation of peritoneal fat through a defect; correlate with any surgical history as this may reflect scarring from interval surgery versus inflammatory changes associated with new fatty periumbilical hernia. No herniation of viscus. No rectus sheath fluid collection. No ascites, abscess, hematoma, or fluid collection. There is no appendicitis or diverticulitis. The gallbladder is surgically absent. There is mild hepatic fatty infiltration, chronic. Urinary tracts are unobstructed. The adrenals and spleen are negative. The aorta is non-aneurysmal. There are degenerative and postoperative changes to the spine with no acute osseous pathology. The lung bases are nonacute. IMPRESSION: 1. Periumbilical infiltration of the fat, indeterminate, scarring from interval surgery versus inflammatory changes associated with a small fatty hernia; correlate with any interval surgery. This is new from the study of 2018. 2. No herniation of viscus. There is no bowel, biliary, or urinary tract obstruction. No ascites or fluid collection. Chronic mild fatty infiltration of the liver. Prior cholecystectomy. Non-aneurysmal atherosclerosis; otherwise, negative. Dictated by: Dictated on workstation # [id number]
[2019-09-28 13:09] VITALS: BP 136/80
== END 2019-09-28 13:09 | disposition home or self-care (01) ==
LOC: EDUNIT# 10:10 → ER 10:13
DX: R10.33 Periumbilical pain (principal); J44.9 Chronic obstructive pulmonary disease, unspecified; E78.00 Pure hypercholesterolemia, unspecified; G47.30 Sleep apnea, unspecified; E11.9 Type 2 diabetes mellitus without complications; F41.9 Anxiety disorder, unspecified; F31.9 Bipolar disorder, unspecified; K21.9 Gastro-esophageal reflux disease without esophagitis; K58.9 Irritable bowel syndrome, unspecified; M79.7 Fibromyalgia; Z87.440 Personal history of urinary (tract) infections; Z88.1 Allergy status to other antibiotic agents; Z88.0 Allergy status to penicillin; Z91.041 Radiographic dye allergy status; Z88.8 Allergy status to other drugs, medicaments and biological substances; Z79.51 Long term (current) use of inhaled steroids; Z79.84 Long term (current) use of oral hypoglycemic drugs; Z79.52 Long term (current) use of systemic steroids; Z87.891 Personal history of nicotine dependence; Z90.710 Acquired absence of both cervix and uterus; Z99.89 Dependence on other enabling machines and devices; Z96.652 Presence of left artificial knee joint
CPT/HCPCS: 74176; 81000; 96372

== ENCOUNTER 2019-11-10 14:03 | Emergency (ER) | payer MEDICARE, MEDICAID ==
[~2019-11-10] VITALS: Ht 175 cm; Wt 124.4 kg
[~2019-11-10 14:03] MED LIST changes: +OMEP40CA27 PO; -TRAM50TA2 PO; +TRM50T PO
[2019-11-10] MEDS ORDERED: BALO40TA PO (14:28)
--- NOTE | 2019-11-10 14:28 | ED Cough/URI ---
General Chief Complaint: Cough/Cold/Flu Symptoms Stated Complaint: SORE THROAT;COUGH Nursing Triage Note: COMPLAINS OF FEVER, COUGH, SORE THROAT, BODY ACHES AND ABD PAIN. Sepsis Screen: No Definite Risk Source: patient Exam Limitations: no limitations History of Present Illness Date Seen by Provider: Nov 10, 2019 Time Seen by Provider: 14:25 Initial Comments 24 history of fever cough sore throat and bodyaches pain, history of COPD Timing/Duration: yesterday, getting worse Severity/Quality: productive cough Associated Symptoms: cough Allergies and Home Medications Allergies Coded Allergies: nickel (Verified Allergy, Intermediate, RASH, 01/06/19) doxycycline (Verified Allergy, Mild, HIVES, 01/06/19) Iodinated Contrast Media (Verified Allergy, Unknown, 01/06/19) cobalt (Verified Allergy, Unknown, Hives, 06/24/19) penicillin (Verified Allergy, Unknown, HAS RECEIVED ROCEPHIN, 06/30/19) rash Uncoded Allergies: hexachloride (Allergy, Unknown, Hives, 06/24/19) Home Medications Albuterol Sulfate 1 Puff Puff, 2 PUFF IH Q4H PRN for WHEEZING, (Reported) 1 PUFF = 90 MCG Fluoxetine HCl 40 Mg Capsule, 40 MG PO DAILY, (Reported) Fluticasone Propionate 9.9 Ml Gordon.susp, 1 SPRAY NS BID, (Reported) Fluticasone/Vilanterol 1 Each Blst.w.dev, 1 EACH IH DAILY, (Reported) Hydrocodone/Acetaminophen 1 Each Tablet, 1 TAB PO Q4H PRN for PAIN-MODERATE Prescribed by: OLIVA HOUSE on 06/30/19 1055 Levofloxacin 500 Mg Tablet, 500 MG PO DAILY Prescribed by: ARELY KOROMA on 08/05/191806 Metformin HCl 1,000 Mg Tablet, 1,000 MG PO BID, (Reported) Pantoprazole Sodium 40 Mg Tablet.dr, 40 MG PO DAILY Prescribed by: STEPHANE KIMBLE on 12/22/18 1218 Prednisone 20 Mg Tab, 40 MG PO DAILY Prescribed by: ARELY KOROMA on 08/05/19 180 Patient Home Medication List Home Medication List Reviewed: Yes Review of Systems Review of Systems Constitutional: see HPI, chills, fever, malaise EENTM: see HPI, nose congestion Respiratory: see HPI, cough Genitourinary: no symptoms reported Musculoskeletal: no symptoms reported Skin: no symptoms reported Psychiatric/Neurological: No Symptoms Reported Hematologic/Lymphatic: No Symptoms Reported Past Pfyoxmp-Agcyyr-Eeurgb Hx Patient Social History Alcohol Use: Denies Use Recreational Drug Use: No Type Used: Cigarettes Former Smoker, Quit: May 01, 2008 2nd Hand Smoke Exposure: No Recent Foreign Travel: No Contact w/Someone Who Travel: No Recent Infectious Disease Expo: No Recent Hopitalizations: No Immunizations Up To Date Tetanus Booster (TDap): Unknown PED Vaccines UTD: No Date of Pneumonia Vaccine: Mar 13, 2018 Date of Influenza Vaccine: Jul 06, 2018 Seasonal Allergies Seasonal Allergies: Yes Past Medical History Surgeries: Yes (bilat CTR, L KNEE x12, L shoulder, L TKR, back sx) Abdominal, Gallbladder, Hysterectomy, Oophorectomy, Orthopedic Respiratory: Yes (CPAP) Asthma, Sleep Apnea, COPD Currently Using CPAP: Yes Cardiac: No High Cholesterol Neurological: No Reproductive Disorders: No 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 Sexually Transmitted Disease: No HIV/AIDS: No Genitourinary: Yes Kidney Infection, Bladder Infection, UTI-Chronic Gastrointestinal: Yes (INFLAMATION IN COLON, VENTRAL HERNIA) Gastroesophageal Reflux, Chronic Constipation, Chronic Diarrhea, Irritable Bowel Musculoskeletal: Yes (RESTLESS LEG SYNDROME) Arthritis, Fibromyalgia, Chronic Back Pain Endocrine: Yes (OBESITY) Diabetes, Non-Insulin dep HEENT: Yes (GLASSES) Loss of Vision: Bilateral Hearing Impairment: Denies Cancer: No Psychosocial: Yes Anxiety, Bipolar Integumentary: No Blood Disorders: No Adverse Reaction/Blood Tranf: No (N/A) Family Medical History Arthritis 19 MOTHER, Onset:Unknown Asthma 19 FATHER, Onset:Unknown Cataracts 19 MOTHER, Onset:Unknown Diabetes mellitus 19 MOTHER, Onset:Unknown FH: COPD (chronic obstructive pulmonary disease) 19 FATHER, Onset:Unknown Hypercholesterolemia 19 MOTHER MS (multiple sclerosis) G8 SISTER, Onset:Unknown No Pertinent Family Hx Physical Exam Vital Signs - First Documented 11/10/19 14:12 Temp 36.6 Pulse 87 Resp 16 B/P (MAP) 127/77 (94) Pulse Ox 97 O2 Delivery Room Air Capillary Refill : Less Than 3 Seconds Height: 5'9.00" Weight: 288lbs. 0.0oz. 130.155035ms; 40.00 BMI Method:Stated General Appearance: WD/WN, no apparent distress Eyes: Bilateral Eye Normal Inspection, Bilateral Eye PERRL, Bilateral Eye EOMI HEENT: PERRL/EOMI, normal ENT inspection Neck: non-tender, full range of motion Respiratory: no accessory muscle use, decreased breath sounds Gastrointestinal: normal bowel sounds, non tender, soft Neurologic/Psychiatric: alert, normal mood/affect, oriented x 3 Skin: normal color, warm/dry Progress/Results/Core Measures Suspected Sepsis Recent Fever Within 48 Hours: No Infection Criteria Present: None New/Unexplained Altered Menta: No Sepsis Screen: No Definite Risk SIRS Temperature: Pulse: 87 Respiratory Rate: 16 Blood Pressure 127 /77 Mean: 94 Results/Orders My Orders Orders - JANELLE ESPITIA APRN Rapid Strep A Screen (11/10/19 14:24) Vital Signs/I&O 11/10/19 14:12 Temp 36.6 Pulse 87 Resp 16 B/P (MAP) 127/77 (94) Pulse Ox 97 O2 Delivery Room Air Capillary Refill : Less Than 3 Seconds Blood Pressure Mean: 94 Departure Impression Primary Impression: Influenza Disposition: 01 HOME, SELF-CARE Condition: Stable Departure-Patient Inst. Decision time for Depature: 14:26 Referrals: NICKY THOMPSON MD (PCP/Family) Primary Care Physician Patient Instructions: Flu Add. Discharge Instructions: 1. Tylenol and Motrin for pain and fever control 2. Expect symptoms to last for about 5-7 days. Return to ER for any worsening. Follow-up with your doctor next week 3. Medication as directed. All discharge instructions reviewed with patient and/or family. Voiced understanding. Scripts Baloxavir Marboxil (Xofluza) 40 Mg Tablet 40 MG PO DAILY, #1 TAB Prov: JANELLE ESPITIA APRN 11/10/19 JANELLE ESPITIA APRN Nov 10, 2019 14:28
[2019-11-10] MEDS ORDERED: PRD20T PO (15:04)
[2019-11-10 15:09] VITALS: BP 127/77
== END 2019-11-10 15:09 | disposition home or self-care (01) ==
LOC: EDUNIT# 14:03 → ER 14:05
DX: J11.1 Influenza due to unidentified influenza virus with other respiratory manifestations (principal); J44.9 Chronic obstructive pulmonary disease, unspecified; E11.9 Type 2 diabetes mellitus without complications; F31.9 Bipolar disorder, unspecified; F41.9 Anxiety disorder, unspecified; M79.7 Fibromyalgia; K21.9 Gastro-esophageal reflux disease without esophagitis; K58.9 Irritable bowel syndrome, unspecified; M54.9 Dorsalgia, unspecified; G89.29 Other chronic pain; Z88.8 Allergy status to other drugs, medicaments and biological substances; Z88.1 Allergy status to other antibiotic agents; Z91.041 Radiographic dye allergy status; Z88.0 Allergy status to penicillin; Z87.891 Personal history of nicotine dependence; Z79.84 Long term (current) use of oral hypoglycemic drugs
CPT/HCPCS: 87430; 87804

== ENCOUNTER 2020-01-05 22:42 | Emergency (ER) | payer MEDICARE, MEDICAID ==
[~2020-01-05] VITALS: Ht 172 cm; Wt 127.0 kg
[~2020-01-05 22:42] MED LIST changes: +ACHYD1T PO; +BALO40TA PO; -CETI10TA20 PO; +CETI10TA21 PO; -HYDR-3812 PO; -HYDR-3816 PO; -HYDR-3820 PO; +KETOROLAC 30 MG/ML VIAL ONE
[2020-01-05] MEDS ORDERED: ASPIRIN 81 MG CHEW (CHILDREN'S ASA) ONE (22:43)
[2020-01-05] MEDS ORDERED: ASPIRIN 81 MG CHEW (CHILDREN'S ASA) PO ONE (23:00)
[2020-01-05] MEDS ORDERED: KETOROLAC 30 MG/ML VIAL IVP ONE (23:00)
--- OUTSIDE RECORDS SUMMARY | 2020-01-05 23:01 | XMS REPORT | Continuity of Care Document ---
Author Organization Unknown Address Unknown Phone Unavailable Allergies Active Description Code Type Severity Reaction Onset Reported/Identified Relationship to Patient Clinical Status Yes IV DYE IV DYE Unknown N/A 04/09/2015 Yes No Known Drug Allergies [id number] Drug Allergy Unknown N/A 04/09/2015 Yes penicillin [id number] Drug Allerg y Unknown N/A 04/09/2015 Yes Iodinated Contrast Media - IV Dye [id number] Drug Allergy Unknown N/A 016 Yes Iodinated Contrast Media - Oral and [id number] Drug Allergy Unknown N/A 02/28/2017 Yes ZOFRAN ZOFRAN Unknown N/A 12/05/2017 Yes ondansetron [id number] Drug Aller gy Mild NAUSEA 04/30/2018 Yes nickel [id number] Drug Allergy Moderate RASH 01/06/2019 Yes doxycycline [id number] Drug Aller gy Mild HIVES 01/06/2019 Yes Iodinated Contrast Media [id number] Drug Allergy Unknown N/A 01/06/2019 Yes Iodinated Contrast- Oral and IV Dye [id number] Drug Allergy Unknown N/A 01/06/2019 Yes cobalt [id number] Drug Allergy Unknown Hives 06/24/2019 Yes hexachloride hexachloride Unknown Hives 06/24/2019 Yes penicillin [id number] Drug Allerg y Unknown HAS RECEIVED RO 06/30/2019 Medications There is no data. Problems Date [...] Ot V15.81 HX OF PAST NONCOMPLIANCE 04/18/2015 ORENDER DO, ANDERS S Ot 250.00 DIAB MIRZA WO COMPL, TYPE II OR UNSPEC TY 04/18/2015 ORENDER DO, ANDERS S Ot 338.4 CHRONIC PAIN SYNDROME 04/18/2015 ORENDER DO, ANDERS S Ot 496 CHR AIRWAY OBSTRUCT NEC 04/18/2015 ORENDER DO, ANDERS S Ot 530.81 ESOPHAGEAL REFLUX 04/18/2015 ORENDER DO, ANDERS S Ot 536.2 PERSISTENT VOMITING 04/18/2015 ORENDER DO, ANDERS S Ot 599.0 URIN TRACT INFECTION NOS 04/18/2015 ORENDER DO, ANDERS S Ot 729.1 MYALGIA AND MYOSITIS NOS 04/18/2015 ORENDER DO, ANDERS S Ot 787.91 DIARRHEA 04/18/2015 ORENDER DO, ANDERS S Ot 250.00 04/18/2015 ORENDER DO, ANDERS S Ot 338.4 04/18/2015 ORENDER DO, ANDERS S Ot 496 04/18/2015 ORENDER DO, ANDERS S Ot 530.81 04/18/2015 ORENDER DO, ANDERS S Ot 536.2 04/18/2015 ORENDER DO, ANDERS S Ot 599.0 04/18/2015 ORENDER DO, ANDERS S Ot 729.1 04/18/2015 ORENDER DO, ANDERS S Ot 787.91 05/21/2015 LUNA [...] 623.5 NONINFECT VAG LEUKORRHEA 06/13/2015 JANELLE ESPITIA APRN Ot 250.00 DIAB MIRZA WO COMPL, TYPE II OR UNSPEC TY 06/13/2015 JANELLE ESPITIA APRN Ot 599 .0 URIN TRACT INFECTION NOS 06/13/2015 JANELLE ESPITIA CUSTOMER RELATIONSHIP SPECIALIST Ot 789.03 ABDOMINAL PAIN, RIGHT LOWER QUADRANT 06/13/2015 JANELLE ESPITIA APRN Ot V58.69 OTH MED,LT,CURRENT USE 07/27/2015 JANELLE ESPITIA APRN Ot F17.211 NICOTINE DEPENDENCE, CIGARETTES, IN [place] 07/27/2015 JANELLE ESPITIA APRN Ot J44 .9 CHRONIC OBSTRUCTIVE PULMONARY DISEASE, U 07/27/2015 JANELLE ESPITIA APRN Ot R07.89 OTHER CHEST PAIN 07/27/2015 GELLENDER DO, EDI A Ot Z12.31 08/07/2015 GELLENDER DO, EDI A Ot Z12.31 08/08/2015 GELLENDER DO, EDI A Ot Z12.31 08/12/2015 JANELLE ESPITIA APRN Ot J18 .9 PNEUMONIA, UNSPECIFIED ORGANISM 08/12/2015 JANELLE ESPITIA APRN Ot J44 .9 CHRONIC OBSTRUCTIVE PULMONARY DISEASE, U 08/12/2015 JANELLE ESPITIA APRN Ot Z79.899 OTHER STUDY MANAGER (CURRENT) DRUG THERAPY 08/14/2015 GELLENDER DO, EDI A Ot Z12.31 09/14/2015 JANELLE ESPITIA APRN Ot F17.211 NICOTINE DEPENDENCE, CIGARETTES, IN [place] 09/14/2015 JANELLE ESPITIA APRN Ot J40 BRONCHITIS, NOT SPECIFIED ACUTE OR CH 09/18/2015 GELLENDER DO, EDI A Ot Z12.31 09/18/2015 KISHA BALDWIN MD Ot M75.112 09/18/2015 GELLENDER DOEDI A Ot J18.9 09/18/2015 JANELLE ESPITIA CUSTOMER RELATIONSHIP SPECIALIST Ot F17.211 09/18/2015 JANELLE ESPITIA CUSTOMER RELATIONSHIP SPECIALIST Ot J40 09/19/2015 GELLENDER DOEDI Ot J18.9 09/20/2015 GELLENDER DOEDI Ot J18.9 09/24/2015 SIERRA GOMEZ MD Ot M79 .1 MYALGIA 09/24/2015 SIERRA GOMEZ MD Ot R05 COUGH 09/24/2015 SIERRA GOMEZ MD Ot R07.81 PLEURODYNIA 10/05/2015 JANELLE ESPITIA CUSTOMER RELATIONSHIP SPECIALIST Ot F17.211 10/05/2015 JANELLE ESPITIA CUSTOMER RELATIONSHIP SPECIALIST Ot J40 10/11/2015 JANELLE ESPITIA CUSTOMER RELATIONSHIP SPECIALIST Ot F17.211 10/11/2015 JANELLE ESPITIA CUSTOMER RELATIONSHIP SPECIALIST Ot J40 10/13/2015 GELEDI GARZA DO Ot J40 10/14/2015 DAVID CULLEN, LAYTON Spencer Ot F17.211 NICOTINE DEPENDENCE, CIGARETTES, IN [place] 10/14/2015 DAVID CULLEN, LAYTON Spencer Ot J44.9 CHRONIC OBSTRUCTIVE PULMONARY DISEASE, U 10/14/2015 DAVID CULLEN, LAYTON Spencer Ot R07.89 OTHER CHEST PAIN 10/14/2015 DAVID CULLEN, LAYTON Spencer Ot R11.0 NAUSEA 10/16/2015 GELEDI GARZA DO Ot Z12.31 10/16/2015 KISHA BALDWIN MD Ot M75.112 10/16/2015 GELLENDER DOEDI Ot J18.9 10/16/2015 GELLENDER DOEDI Ot J40 10/25/2015 GELLENDER EDI LOU Ot J40 10/25/2015 KISHA BALDWIN MD Ot E11.9 TYPE 2 DIABETES MELLITUS WITHOUT COMPLIC 10/25/2015 KISHA BALDWIN MD Ot E78.0 PURE HYPERCHOLESTEROLEMIA 10/25/2015 KISHA BALDWIN MD Ot F32.9 MAJOR DEPRESSIVE DISORDER, SINGLE EPISOD 10/25/2015 KISHA BALDWIN MD Ot J44.9 CHRONIC OBSTRUCTIVE PULMONARY DISEASE, U 10/25/2015 NICOLASA CULLEN, KISHA Justice Ot M75.102 UNSP ROTATR-CUFF TEAR/RUPTR OF LEFT SHOU 10/25/2015 NICOLASA CULLEN, KISHA Justice Ot M94.212 CHONDROMALACIA, LEFT SHOULDER 10/25/2015 NICOLASA CULLEN, KISHA Justice Ot S43.439A SUPERIOR GLENOID LABRUM LESION OF UNSP S 11/10/2015 LORENA CULLEN, KISHA Justice Ot G47.33 OBSTRUCTIVE SLEEP APNEA (ADULT) (PEDIATR 11/13/2015 EDI FAUSTIN DO Ot Z12.31 11/13/2015 KISHA BALDWIN MD Ot M75.112 11/13/2015 EDI FAUSTIN DO Ot J18.9 11/13/2015 EDI FAUSTIN DO, Ot J40 11/13/2015 NICOLASA CULLEN, KISHA Justice Ot M75.102 11/13/2015 KISHA BALDWIN MD Ot Z01.818 11/13/2015 KISHA BALDWIN MD Ot Z11.2 11/13/2015 EDI FAUSTIN DO Ot Z12.31 11/13/2015 KISHA BALDWIN MD Ot M75.112 11/13/2015 EDI FAUSTIN DO Ot J18.9 11/13/2015 EDI FAUSITN DO, Ot J40 11/13/2015 KISHA BALDWIN MD Ot M75.102 11/13/2015 KISHA BALDWIN MD Ot Z01.818 11/13/2015 KISHA BALDWIN MD Ot Z11.2 11/18/2015 CHELSI GARCIA MD, Ot J40 BRONCHITIS, NOT SPECIFIED ACUTE OR CH 12/11/2015 LORENA CULLEN, KISHA Justice Ot R13.19 12/11/2015 LORENA CULLEN, KISHA Justice Ot R49 .0 12/13/2015 LORENA CULLEN, KISHA Justice Ot R13.19 12/13/2015 LORENA CULLEN, KISHA Justice Ot R49 .0 12/15/2015 NICOLASA CULLEN, KISHA Justice Ot L72.9 FOLLICULAR CYST OF THE SKIN AND SUBCUTAN 12/15/2015 NICOLASA CULLEN, KISHA Justice Ot Z01.818 ENCOUNTER FOR OTHER PREPROCEDURAL EXAMIN 12/16/2015 RADHA CULLEN, CHELSI Christianson Ot J40 BRONCHITIS, NOT SPECIFIED ACUTE OR CH 12/16/2015 CHELSI GARCIA MD, Ot R09. 1 PLEURISY 12/18/2015 RADHA CULLEN, CHELSI Christianson Ot J40 12/18/2015 RADHA CULLEN, CHELSI Christianson Ot R09. 1 12/18/2015 RADHA CULLEN, CHELSI Christianson Ot J40 12/18/2015 RADHA CULLEN, CHELSI Christianson Ot R09. 1 12/19/2015 LORENA CULLEN, KISHA Justice Ot R13.10 12/19/2015 EDI FAUSTIN DO Ot Z12.31 12/19/2015 KISHA BALDWIN MD Ot M75.112 12/19/2015 EDI FAUSTIN DO Ot J18.9 12/19/2015 EDI FAUSTIN DO Ot J40 12/19/2015 NICOLASA CULLEN, KISHA Justice Ot M75.102 12/19/2015 NICOLASA CULLEN, KISHA Justice Ot Z01.818 12/19/2015 NICOLASA CULLEN, KISHA Justice Ot Z11.2 12/19/2015 LORENA CULLEN, KISHA Justice Ot R13.19 12/19/2015 LORENA CULLEN, KISHA P Ot R49 .0 12/19/2015 LORENA CULLEN, KISHA P Ot R13.10 12/20/2015 NICOLASA CULLEN, KISHA Justice [...] 12/21/2015 KISHA BALDWIN MD Ot E78.0 12/21/2015 KISHA BALDWIN MD Ot J32.9 12/21/2015 NICOLASA CULLEN, KISHA Justice Ot J44.9 12/21/2015 KISHA BALDWIN MD Ot M67.441 12/21/2015 KISHA BALDWIN MD P Ot Z11.2 12/25/2015 RAMIN LOUEDI Ot R07.81 01/01/2016 LORENA CULLEN, KISHA Justice Ot R13.10 01/12/2016 RAMIN LOUEDI Ot R07.81 PLEURODYNIA 01/19/2016 RAMIN LOUEDI Ot Z12.31 ENCNTR SCREEN MAMMOGRAM FOR MALIGNANT NE 01/19/2016 NICOLASA CULLEN, KISHA Justice Ot M75.112 INCOMPLETE ROTATR-CUFF TEAR/RUPTR OF L S 01/19/2016 RAMIN LOUEDI Ot J18.9 PNEUMONIA, UNSPECIFIED ORGANISM 01/19/2016 RAMIN LOUEDI Ot J40 BRONCHITIS, NOT SPECIFIED ACUTE OR CH 01/19/2016 NICOLASA CULLEN, KISHA Justice Ot M75.102 UNSP ROTATR-CUFF TEAR/RUPTR OF LEFT SHOU 01/19/2016 KISHA BADLWIN MD Ot Z01.818 ENCOUNTER FOR OTHER PREPROCEDURAL EXAMIN 01/19/2016 KISHA BALDWIN MD Ot Z11.2 ENCOUNTER FOR SCREENING FOR OTHER BACTER 01/19/2016 LORENA CULLEN, KISHA Justice Ot R13.19 OTHER DYSPHAGIA 01/19/2016 LORENA CULLEN, KISHA Justice Ot R49 .0 DYSPHONIA 01/19/2016 LORENA CULLEN, KISHA Justice Ot R13.10 DYSPHAGIA, UNSPECIFIED 01/19/2016 RAMIN LOUEDI Ot R07.81 PLEURODYNIA 01/19/2016 JANELLE ESPITIA APRN Ot E11 .9 TYPE 2 DIABETES MELLITUS WITHOUT COMPLIC 01/19/2016 JANELLE ESPITIA APRN Ot I10 ESSENTIAL (PRIMARY) HYPERTENSION 01/19/2016 JANELLE ESPITIA APRN Ot J44 .9 CHRONIC OBSTRUCTIVE PULMONARY DISEASE, U 01/19/2016 JANELLE ESPITIA APRN Ot R07.89 OTHER CHEST PAIN 01/22/2016 JANELLE ESPITIA APRN Ot E11 .9 TYPE 2 DIABETES MELLITUS WITHOUT COMPLIC 01/22/2016 JANELLE ESPITIA CUSTOMER RELATIONSHIP SPECIALIST Ot I10 ESSENTIAL (PRIMARY) HYPERTENSION 01/22/2016 JANELLE ESPITIA APRN Ot J44 .9 CHRONIC OBSTRUCTIVE PULMONARY DISEASE, U 01/22/2016 JANELLE ESPITIA APRN Ot R07.89 OTHER CHEST PAIN 01/22/2016 RAMIN EDI LOU Ot R07.81 PLEURODYNIA 01/26/2016 MAJOR GIPSON APRN Ot J30.9 ALLERGIC RHINITIS, UNSPECIFIED 01/26/2016 MAJOR GIPSON APRN Ot R06.02 SHORTNESS OF BREATH 01/26/2016 SIERRA GOMEZ MD Ot K76 .0 FATTY (CHANGE OF) LIVER, NOT ELSEWHERE C 01/26/2016 SIERRA GOMEZ MD Ot M79.602 PAIN IN LEFT ARM 01/26/2016 SIERRA GOMEZ MD Ot M79.605 PAIN IN LEFT LEG 01/26/2016 SIERRA GOMEZ MD Ot M79 .7 FIBROMYALGIA 01/26/2016 SIERRA GOMEZ MD Ot R07.89 OTHER CHEST PAIN 01/29/2016 SIERRA GOMEZ MD Ot K76 .0 FATTY (CHANGE OF) LIVER, NOT ELSEWHERE C 01/29/2016 SIERRA GOMEZ MD Ot M79.602 PAIN IN LEFT ARM 01/29/2016 SIERRA GOMEZ MD Ot M79.605 PAIN IN LEFT LEG 01/29/2016 SIERRA GOMEZ MD Ot M79 .7 FIBROMYALGIA 01/29/2016 SIERRA GOMEZ MD Ot R07.89 [...] 02/14/2016 KISHA BALDWIN MD Ot Z79.899 OTHER LONGTERM (CURRENT) DRUG THERAPY 02/14/2016 MAJOR GIPSON APRN Ot J30.9 ALLERGIC RHINITIS, UNSPECIFIED 02/14/2016 MAJOR GIPSON APRN Ot R06.02 SHORTNESS OF BREATH 02/15/2016 KISHA ABLDWIN MD Ot 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 02/15/2016 KISHA BALDWIN MD Ot E11.9 TYPE 2 DIABETES MELLITUS WITHOUT COMPLIC 02/15/2016 KISHA BALDWIN MD Ot Z79.899 OTHER STUDY MANAGER (CURRENT) DRUG THERAPY 02/16/2016 SIERRA GOMEZ MD Ot K76 .0 FATTY (CHANGE OF) LIVER, NOT ELSEWHERE C 02/16/2016 SIERRA GOMEZ MD Ot M79.602 PAIN IN LEFT ARM 02/16/2016 SIERRA GOMEZ MD, Ot M79.605 PAIN IN LEFT LEG 02/16/2016 SIERRA GOMEZ MD Ot M79 .7 FIBROMYALGIA 02/16/2016 SIERRA GOMEZ MD Ot R07.89 [...] OTHER DYSPHAGIA 02/21/2016 KISHA CARRILLO MD Ot R49 .0 DYSPHONIA 02/21/2016 KISHA CARRILLO MD Ot R13.10 DYSPHAGIA, UNSPECIFIED 02/21/2016 EDI FAUSTIN DO Ot R07.81 PLEURODYNIA 02/21/2016 MAJOR GIPSON APRN Ot J30.9 ALLERGIC RHINITIS, UNSPECIFIED 02/21/2016 MAJOR GIPSON APRN Ot R06.02 SHORTNESS OF BREATH 02/22/2016 EDI FAUSTIN DO, Ot Z12.31 ENCNTR SCREEN MAMMOGRAM FOR MALIGNANT NE 02/22/2016 KISHA BALDWIN MD Ot M75.112 INCOMPLETE ROTATR-CUFF TEAR/RUPTR OF L S 02/22/2016 EDI FAUSTIN DO, Ot J18.9 PNEUMONIA, UNSPECIFIED ORGANISM 02/22/2016 EDI FAUSTIN DO Ot J40 BRONCHITIS, NOT SPECIFIED ACUTE OR CH 02/22/2016 KISHA BALDWIN MD Ot M75.102 UNSP ROTATR-CUFF TEAR/RUPTR OF LEFT SHOU 02/22/2016 KISHA BALDWIN MD Ot Z01.818 ENCOUNTER FOR OTHER PREPROCEDURAL EXAMIN 02/22/2016 KISHA BALDWIN MD Ot Z11.2 ENCOUNTER FOR SCREENING FOR OTHER BACTER 02/22/2016 KISHA CARRILLO MD Ot R13.19 OTHER DYSPHAGIA 02/22/2016 KISHA CARRILLO MD Ot R49 .0 DYSPHONIA 02/22/2016 KISHA CARRILLO MD Ot R13.10 DYSPHAGIA, UNSPECIFIED 02/22/2016 EDI FAUSTIN DO Ot R07.81 PLEURODYNIA 02/22/2016 MAJOR GIPSON APRN [...] OF BREATH 02/29/2016 ZAHIRA PETERSEN DO Ot E66. 01 MORBID (SEVERE) OBESITY DUE TO EXCESS CA 02/29/2016 ZAHIRA PETERSEN DO Ot J30. 9 ALLERGIC RHINITIS, UNSPECIFIED 02/29/2016 ZAHIRA PETERSEN DO Ot R06. 02 SHORTNESS OF BREATH 03/22/2016 ZAHIRA PETERSEN DO Ot E66. 01 MORBID (SEVERE) OBESITY DUE TO EXCESS CA 03/22/2016 ZAHIRA PETERSEN DO Ot J30. 9 ALLERGIC RHINITIS, UNSPECIFIED 03/22/2016 ZAHIRA PETERSEN DO Ot R06. 02 SHORTNESS OF BREATH 03/26/2016 ZAHIRA PETERSEN DO Ot E66. 01 MORBID (SEVERE) OBESITY DUE TO EXCESS CA 03/26/2016 ZAHIRA PETERSEN DO Ot J30. 9 ALLERGIC RHINITIS, UNSPECIFIED 03/26/2016 ZAHIRA PETERSEN DO Ot R06. 02 SHORTNESS OF BREATH 03/27/2016 LUNA LEGER MD Ot J98.4 OTHER DISORDERS OF LUNG 03/27/2016 LUNA LEGER MD Ot K76.0 FATTY (CHANGE OF) LIVER, NOT ELSEWHERE C 03/27/2016 LUNA LEGER MD Ot R07.89 OTHER CHEST PAIN 03/28/2016 ZAHIRA PETERSEN DO Ot E66. 01 MORBID (SEVERE) OBESITY DUE TO EXCESS CA 03/28/2016 ZAHIRA PETERSEN DO Ot J30. 9 ALLERGIC RHINITIS, UNSPECIFIED 03/28/2016 ZAHIRA PETERSEN DO Ot R06. 02 SHORTNESS OF BREATH 03/28/2016 LUNA LEGER MD Ot J98.4 OTHER DISORDERS OF LUNG 03/28/2016 LUNA LEGER MD Ot K76.0 FATTY (CHANGE OF) LIVER, NOT ELSEWHERE C 03/28/2016 LUNA LEGER MD Ot R07.89 OTHER CHEST PAIN 03/28/2016 ZAHIRA PETERSEN DO Ot E66. 01 MORBID (SEVERE) OBESITY DUE TO EXCESS CA 03/28/2016 ZAHIRA PETERSEN DO Ot J30. 9 ALLERGIC RHINITIS, UNSPECIFIED 03/28/2016 ZAHIRA PETERSEN DO Ot R06. 02 SHORTNESS OF BREATH 04/17/2016 LUNA LEGER MD [...] CHEST PAIN 04/18/2016 ZAHIRA PETERSEN DO Ot E66. 01 MORBID (SEVERE) OBESITY DUE TO EXCESS CA 04/18/2016 ZAHIRA PETERSEN DO Ot J30. 9 ALLERGIC RHINITIS, UNSPECIFIED 04/18/2016 ZAHIRA PETERSEN DO Ot R06. 02 SHORTNESS OF BREATH 05/01/2016 KISHA BALDWIN MD Ot M94.262 CHONDROMALACIA, LEFT KNEE 05/01/2016 KISHA BALDWIN MD Ot Z01.818 ENCOUNTER FOR OTHER PREPROCEDURAL EXAMIN 05/01/2016 KISHA BALDWIN MD Ot Z11.2 ENCOUNTER FOR SCREENING FOR OTHER BACTER 05/02/2016 ZAHIRA PETERSEN DO Ot E66. 01 MORBID (SEVERE) OBESITY DUE TO EXCESS CA 05/02/2016 ZAHIRA PETERSEN DO, Ot J30. 9 ALLERGIC RHINITIS, UNSPECIFIED 05/02/2016 ZAHIRA PETERSEN DO, Ot R06. 02 SHORTNESS OF BREATH 05/02/2016 KISHA BALDWIN MD, Ot M94.262 CHONDROMALACIA, LEFT KNEE 05/02/2016 KISHA BALDWIN MD Ot Z01.818 ENCOUNTER FOR OTHER PREPROCEDURAL EXAMIN 05/02/2016 KISHA BALDWIN MD Ot Z11.2 ENCOUNTER FOR SCREENING FOR OTHER BACTER 05/08/2016 KISHA BALDWIN MD Ot E11.9 TYPE 2 DIABETES MELLITUS WITHOUT COMPLIC 05/08/2016 KISHA BALDWIN MD Ot E78.0 PURE HYPERCHOLESTEROLEMIA 05/08/2016 KISHA BALDWIN MD, Ot J44.9 CHRONIC OBSTRUCTIVE PULMONARY DISEASE, U 05/08/2016 KISHA BALDWIN MD Ot M22.42 CHONDROMALACIA PATELLAE, LEFT KNEE 05/08/2016 KISHA BALDWIN MD Ot M23.8X1 OTHER INTERNAL DERANGEMENTS OF RIGHT KNE 05/08/2016 KISHA BALDWIN MD Ot M23.8X2 OTHER INTERNAL DERANGEMENTS OF LEFT KNEE 05/08/2016 KISHA BALDWIN MD Ot Z79.899 OTHER LONGTERM (CURRENT) DRUG THERAPY 05/08/2016 KISHA BALDWIN MD [...] 05/09/2016 KISHA BALDWIN MD Ot Z79.899 OTHER LONGTERM (CURRENT) DRUG THERAPY 05/09/2016 KISHA BALDWIN MD [...] 05/10/2016 KISHA BALDWIN MD Ot Z79.899 OTHER STUDY MANAGER (CURRENT) DRUG THERAPY 05/10/2016 KISHA BALDWIN MD [...] OTHER DYSPHAGIA 05/15/2016 KISHA CARRILLO MD Ot R49 .0 DYSPHONIA 05/15/2016 KISHA CARRILLO MD Ot R13.10 DYSPHAGIA, UNSPECIFIED 05/15/2016 EDI FAUSTIN DO Ot R07.81 PLEURODYNIA 05/15/2016 MAJOR GIPSON APRN Ot J30.9 ALLERGIC RHINITIS, UNSPECIFIED 05/15/2016 MAJOR GIPSON APRN Ot R06.02 SHORTNESS OF BREATH 05/15/2016 ZAHIRA PETERSEN DO Ot E66. 01 MORBID (SEVERE) OBESITY DUE TO EXCESS CA 05/15/2016 ZAHIRA PETERSEN DO Ot J30. 9 ALLERGIC RHINITIS, UNSPECIFIED 05/15/2016 ZAHIRA PETERSEN DO Ot R06. 02 SHORTNESS OF BREATH 05/15/2016 ZAHIRA PETERSEN DO Ot E66. 01 MORBID (SEVERE) OBESITY DUE TO EXCESS CA 05/15/2016 ZAHIRA PETERSEN DO Ot J30. 9 ALLERGIC RHINITIS, UNSPECIFIED 05/15/2016 ZAHIRA PETERSEN DO Ot R06. 02 SHORTNESS OF BREATH 05/15/2016 LUNA LEGER MD [...] OTHER DYSPHAGIA 05/15/2016 KISHA CARRILLO MD Ot R49 .0 DYSPHONIA 05/15/2016 KISHA CARRILLO MD Ot R13.10 DYSPHAGIA, UNSPECIFIED 05/15/2016 EDI FAUSTIN DO Ot R07.81 PLEURODYNIA 05/15/2016 MAJOR GIPSON APRN Ot J30.9 ALLERGIC RHINITIS, UNSPECIFIED 05/15/2016 MAJOR GIPSON APRN Ot R06.02 SHORTNESS OF BREATH 05/15/2016 ZAHIRA PETERSEN DO Ot E66. 01 MORBID (SEVERE) OBESITY DUE TO EXCESS CA 05/15/2016 ZAHIRA PETERSEN DO Ot J30. 9 ALLERGIC RHINITIS, UNSPECIFIED 05/15/2016 ZAHIRA PETERSEN DO Ot R06. 02 SHORTNESS OF BREATH 05/15/2016 ZAHIRA PETERSEN DO Ot E66. 01 MORBID (SEVERE) OBESITY DUE TO EXCESS CA 05/15/2016 ZAHIRA PETERSEN DO Ot J30. 9 ALLERGIC RHINITIS, UNSPECIFIED 05/15/2016 ZAHIRA PETERSEN DO Ot R06. 02 SHORTNESS OF BREATH 05/16/2016 AFR[place] CULLEN, LUNA Christianson Ot R07.89 OTHER [...] OTHER DYSPHAGIA 05/24/2016 KISHA CARRILLO MD Ot R49 .0 DYSPHONIA 05/24/2016 LORENA CULLEN, KISHA Justice Ot R13.10 DYSPHAGIA, UNSPECIFIED 05/24/2016 GELLENDER DO, EDI A Ot R07.81 PLEURODYNIA 05/24/2016 MAJOR GIPSON APRN Ot J30.9 ALLERGIC RHINITIS, UNSPECIFIED 05/24/2016 MAJOR GIPSON CUSTOMER RELATIONSHIP SPECIALIST Ot R06.02 SHORTNESS OF BREATH 05/24/2016 TRINITYZAHIRA HERNÁNDEZ DO Ot E66. 01 MORBID (SEVERE) OBESITY DUE TO EXCESS CA 05/24/2016 TRINITY DOZAHIRA M Ot J30. 9 ALLERGIC RHINITIS, UNSPECIFIED 05/24/2016 TRINITY DOZAHIRA M Ot R06. 02 SHORTNESS OF BREATH 05/24/2016 TRINITY DOZAHIRA Ot E66. 01 MORBID (SEVERE) OBESITY DUE TO EXCESS CA 05/24/2016 TRINITY DOZAHIRA M Ot J30. 9 ALLERGIC RHINITIS, UNSPECIFIED 05/24/2016 ZAHIRA PETERSEN DO Ot R06. 02 SHORTNESS OF BREATH 05/24/2016 GELLENDER DO, EDI A Ot N64.4 MASTODYNIA 05/27/2016 GELLENDER DO, EDI A Ot N64.4 MASTODYNIA 06/09/2016 LAYTON HERNANDEZ MD Ot E11.9 TYPE 2 DIABETES MELLITUS WITHOUT COMPLIC 06/09/2016 LAYTON HERNANDEZ MD Ot I10 ESSENTIAL (PRIMARY) HYPERTENSION 06/09/2016 LAYTON HERNANDEZ MD Ot N39.0 URINARY TRACT INFECTION, SITE NOT SPECIF 06/09/2016 LAYTON HERNANDEZ MD Ot R05 COUGH 06/09/2016 LAYTON HERNANDEZ MD Ot R42 DIZZINESS AND GIDDINESS 06/09/2016 LAYTON HERNANDEZ MD Ot Z79.899 OTHER LONGTERM (CURRENT) DRUG THERAPY 06/11/2016 LAYTON HERNANDEZ MD Ot E11.9 TYPE 2 DIABETES MELLITUS WITHOUT COMPLIC 06/11/2016 LAYTON HERNANDEZ MD Ot I10 ESSENTIAL (PRIMARY) HYPERTENSION 06/11/2016 LAYTON HERNANDEZ MD Ot N39.0 URINARY TRACT INFECTION, SITE NOT SPECIF 06/11/2016 DAVID CULLEN, LAYTON Spencer Ot R05 COUGH 06/11/2016 DAVID CULLEN, LAYTON Spencer Ot R42 DIZZINESS AND GIDDINESS 06/11/2016 DAVID CULLEN, LAYTON Spencer Ot Z79.899 OTHER LONGTERM (CURRENT) DRUG THERAPY 06/13/2016 EDI FAUSTIN DO Ot Z12.31 ENCNTR SCREEN MAMMOGRAM FOR MALIGNANT NE 06/13/2016 KISHA BALDWIN MD Ot M75.112 INCOMPLETE ROTATR-CUFF TEAR/RUPTR OF L S 06/13/2016 EDI FAUSTIN DO Ot J18.9 PNEUMONIA, UNSPECIFIED ORGANISM 06/13/2016 EDI FAUSTIN DO Ot J40 BRONCHITIS, NOT SPECIFIED ACUTE OR CH 06/13/2016 KISHA BALDWIN MD Ot M75.102 UNSP ROTATR-CUFF TEAR/RUPTR OF LEFT SHOU 06/13/2016 KISHA BALDWIN MD Ot Z01.818 ENCOUNTER FOR OTHER PREPROCEDURAL EXAMIN 06/13/2016 KISHA BALDWIN MD Ot Z11.2 ENCOUNTER FOR SCREENING FOR OTHER BACTER 06/13/2016 KISHA CARRILLO MD Ot R13.19 OTHER DYSPHAGIA 06/13/2016 KISHA CARRILLO MD Ot R49 .0 DYSPHONIA 06/13/2016 KISHA CARRILLO MD Ot R13.10 DYSPHAGIA, UNSPECIFIED 06/13/2016 EDI FAUSTIN DO Ot R07.81 PLEURODYNIA 06/13/2016 MAJOR GIPSON APRN Ot J30.9 ALLERGIC RHINITIS, UNSPECIFIED 06/13/2016 MAJOR GIPSON APRN Ot R06.02 SHORTNESS OF BREATH 06/13/2016 ZAHIRA PETERSEN DO Ot E66. 01 MORBID (SEVERE) OBESITY DUE TO EXCESS CA 06/13/2016 ZAHIRA PETERSEN DO Ot J30. 9 ALLERGIC RHINITIS, UNSPECIFIED 06/13/2016 ZAHIRA PETERSEN DO Ot R06. 02 SHORTNESS OF BREATH 06/13/2016 ZAHIRA PETERSEN DO Ot E66. 01 MORBID (SEVERE) OBESITY DUE TO EXCESS CA 06/13/2016 ZAHIRA PETERSEN DO, Ot J30. 9 ALLERGIC RHINITIS, UNSPECIFIED 06/13/2016 ZAHIRA PETERSEN DO Ot R06. 02 SHORTNESS OF BREATH 06/13/2016 GELGREG LOU, EDI A Ot N64.4 MASTODYNIA 06/18/2016 RAMIN LOU, EDI A Ot N64.4 MASTODYNIA 06/18/2016 JANELLE ESPITIA APRN Ot E11 .9 TYPE 2 DIABETES MELLITUS WITHOUT COMPLIC 06/18/2016 JANELLE ESPITIA APRN Ot I10 ESSENTIAL (PRIMARY) HYPERTENSION 06/18/2016 JANELLE ESPITIA APRN Ot J44 .9 CHRONIC OBSTRUCTIVE PULMONARY DISEASE, U 06/18/2016 JANELLE ESPITIA APRN Ot R10.31 RIGHT LOWER QUADRANT PAIN 06/18/2016 JANELLE ESPITIA APRN Ot R11 .0 NAUSEA 06/18/2016 JANELLE ESPITIA APRN Ot Z79.899 OTHER STUDY MANAGER (CURRENT) DRUG THERAPY 06/19/2016 JANELLE ESPITIA APRN Ot E11 .9 TYPE 2 DIABETES MELLITUS WITHOUT COMPLIC 06/19/2016 JANELLE ESPITIA APRN Ot I10 ESSENTIAL (PRIMARY) HYPERTENSION 06/19/2016 JANELLE ESPITIA APRN Ot J44 .9 CHRONIC OBSTRUCTIVE PULMONARY DISEASE, U 06/19/2016 JANELLE ESPITIA APRN Ot R10.31 RIGHT LOWER QUADRANT PAIN 06/19/2016 JANELLE ESPITIA APRN Ot R11 .0 NAUSEA 06/19/2016 JANELLE ESPITIA APRN Ot Z79.899 OTHER STUDY MANAGER (CURRENT) DRUG THERAPY 06/20/2016 JANELLE ESPITIA APRN Ot E11 .9 TYPE 2 DIABETES MELLITUS WITHOUT COMPLIC 06/20/2016 JANELLE ESPITIA APRN Ot I10 ESSENTIAL (PRIMARY) HYPERTENSION 06/20/2016 JANELLE ESPITIA APRN Ot J44 .9 CHRONIC OBSTRUCTIVE PULMONARY DISEASE, U 06/20/2016 JANELLE ESPITIA APRN Ot R10.31 RIGHT LOWER QUADRANT PAIN 06/20/2016 JANELLE ESPITIA APRN Ot R11 .0 NAUSEA 06/20/2016 JANELLE ESPITIA APRN Ot Z79.899 OTHER STUDY MANAGER (CURRENT) DRUG THERAPY 06/23/2016 ZAHIRA PETERSEN DO Ot E66. 01 MORBID (SEVERE) OBESITY DUE TO EXCESS CA 06/23/2016 ZAHIRA PETERSEN DO Ot J30. 9 ALLERGIC RHINITIS, UNSPECIFIED 06/23/2016 ZAHIRA PETERSEN DO Ot R06. 02 SHORTNESS OF BREATH 06/26/2016 EDI FAUSTIN DO A Ot N64.4 MASTODYNIA 07/01/2016 RAMIN LOU EDI Christianson Ot R10.12 LEFT UPPER QUADRANT PAIN 07/02/2016 LUNA LEGER MD Ot E11.9 TYPE 2 DIABETES MELLITUS WITHOUT COMPLIC 07/02/2016 LUNA LEGER MD Ot I10 ESSENTIAL (PRIMARY) HYPERTENSION 07/02/2016 LUNA LEGER MD, Ot J44.9 CHRONIC OBSTRUCTIVE PULMONARY DISEASE, U 07/02/2016 LUNA LEGER MD Ot R10.31 RIGHT LOWER QUADRANT PAIN 07/02/2016 LUNA LEGER MD Ot R11.10 VOMITING, UNSPECIFIED 07/02/2016 LUNA LEGER MD, Ot Z79.899 OTHER STUDY MANAGER (CURRENT) DRUG THERAPY 07/03/2016 LUNA LEGER MD, Ot E11.9 TYPE 2 DIABETES MELLITUS WITHOUT COMPLIC 07/03/2016 LUNA LEGER MD Ot I10 ESSENTIAL (PRIMARY) HYPERTENSION 07/03/2016 LUNA LEGER MD, Ot J44.9 CHRONIC OBSTRUCTIVE PULMONARY DISEASE, U 07/03/2016 LUNA LEGER MD Ot R10.31 RIGHT LOWER QUADRANT PAIN 07/03/2016 LUNA LEGER MD Ot R11.10 VOMITING, UNSPECIFIED 07/03/2016 LUNA LEGER MD Ot Z79.899 OTHER LONGTERM (CURRENT) DRUG THERAPY 07/12/2016 RAMIN LOU EDI Meghan Ot R10.11 RIGHT UPPER QUADRANT PAIN 07/18/2016 JANELLE ESPITIA APRN Ot E11 .9 TYPE 2 DIABETES MELLITUS WITHOUT COMPLIC 07/18/2016 JANELLE ESPITIA APRN Ot I10 ESSENTIAL (PRIMARY) HYPERTENSION 07/18/2016 JANELLE ESPITIA APRN Ot J44 .0 CHRONIC OBSTRUCTIVE PULMON DISEASE W ACU 07/18/2016 JANELLE ESPITIA APRN Ot R05 COUGH 07/18/2016 JANELLE ESPITIA APRN Ot R09 .1 PLEURISY 07/18/2016 JANELLE ESPITIA APRN Ot Z79.84 LONGTERM (CURRENT) USE OF ORAL HYPOGLYC 07/18/2016 JANELLE ESPITIA APRN Ot Z79.899 OTHER STUDY MANAGER (CURRENT) DRUG THERAPY 07/19/2016 JANELLE ESPITIA APRN Ot E11 .9 TYPE 2 DIABETES MELLITUS WITHOUT COMPLIC 07/19/2016 JANELLE ESPITIA CUSTOMER RELATIONSHIP SPECIALIST Ot I10 ESSENTIAL (PRIMARY) HYPERTENSION 07/19/2016 JANELLE ESPITIA CUSTOMER RELATIONSHIP SPECIALIST Ot J44 .0 CHRONIC OBSTRUCTIVE PULMON DISEASE W ACU 07/19/2016 JANELLE ESPITIA CUSTOMER RELATIONSHIP SPECIALIST Ot R05 COUGH 07/19/2016 JANELLE ESPITIA APRN Ot R09 .1 PLEURISY 07/19/2016 JANELLE ESPITIA CUSTOMER RELATIONSHIP SPECIALIST Ot Z79.84 STUDY MANAGER (CURRENT) USE OF ORAL HYPOGLYC 07/19/2016 JANELLE ESPITIA CUSTOMER RELATIONSHIP SPECIALIST Ot Z79.899 OTHER STUDY MANAGER (CURRENT) DRUG THERAPY 07/23/2016 EDI FAUSTIN DO A Ot R10.12 LEFT UPPER QUADRANT PAIN 08/01/2016 EDI FAUSTIN DO Ot R10.11 RIGHT UPPER QUADRANT PAIN 08/02/2016 ZAHIRA PETERSEN DO Ot E66. 01 MORBID (SEVERE) OBESITY DUE TO EXCESS CA 08/02/2016 ZAHIRA PETERSEN DO Ot J30. 9 ALLERGIC RHINITIS, UNSPECIFIED 08/02/2016 ZAHIRA PETESREN DO Ot R06. 02 SHORTNESS OF BREATH 08/02/2016 ZAHIRA PETERSEN DO Ot R91. 1 SOLITARY PULMONARY NODULE 08/03/2016 CHRISTO VIDAL MD Ot E11. 9 TYPE 2 DIABETES MELLITUS WITHOUT COMPLIC 08/03/2016 CHRISTO VIDAL MD Ot F41. 9 ANXIETY DISORDER, UNSPECIFIED 08/03/2016 CHRISTO VIDAL MD Ot I10 ESSENTIAL (PRIMARY) HYPERTENSION 08/03/2016 YOUNG CULLEN, CHRISTO Huston Ot J02. 9 ACUTE PHARYNGITIS, UNSPECIFIED 08/03/2016 CHRISTO VIDAL MD Ot J44. 9 CHRONIC OBSTRUCTIVE PULMONARY DISEASE, U 08/03/2016 CHRISTO VIDAL MD Ot Z79. 84 STUDY MANAGER (CURRENT) USE OF ORAL HYPOGLYC 08/03/2016 CHRISTO VIDAL MD Ot Z79.899 OTHER LONGTERM (CURRENT) DRUG THERAPY 08/05/2016 EDI FAUSTIN DO A Ot R10.12 LEFT UPPER QUADRANT PAIN 08/05/2016 CHRISTO VIDAL MD Ot E11. 9 TYPE 2 DIABETES MELLITUS WITHOUT COMPLIC 08/05/2016 CHRISTO VIDAL MD Ot F41. 9 ANXIETY DISORDER, UNSPECIFIED 08/05/2016 CHRISTO VIDAL MD Ot I10 ESSENTIAL (PRIMARY) HYPERTENSION 08/05/2016 CHRISTO VIDAL MD Ot J02. 9 ACUTE PHARYNGITIS, UNSPECIFIED 08/05/2016 YOUNG CULLEN, CHRISTO Huston Ot J44. 9 CHRONIC OBSTRUCTIVE PULMONARY DISEASE, U 08/05/2016 CHRISTO VIDAL MD Ot Z79. 84 STUDY MANAGER (CURRENT) USE OF ORAL HYPOGLYC 08/05/2016 CHRISTO VIDAL MD Ot Z79.899 OTHER STUDY MANAGER (CURRENT) DRUG THERAPY 08/09/2016 CHRISTO VIDAL MD Ot E11. 9 TYPE 2 DIABETES MELLITUS WITHOUT COMPLIC 08/09/2016 CHRISTO VIDAL MD Ot F41. 9 ANXIETY DISORDER, UNSPECIFIED 08/09/2016 CHRISTO VIDAL MD Ot I10 ESSENTIAL (PRIMARY) HYPERTENSION 08/09/2016 CHRISTO VIDAL MD Ot J02. 9 ACUTE PHARYNGITIS, UNSPECIFIED 08/09/2016 CHRISTO VIDAL MD Ot J44. 9 CHRONIC OBSTRUCTIVE PULMONARY DISEASE, U 08/09/2016 CHRISTO VIDAL MD Ot Z79. 84 STUDY MANAGER (CURRENT) USE OF ORAL HYPOGLYC 08/09/2016 CHRISTO VIDAL MD Ot Z79.899 OTHER LONGTERM (CURRENT) DRUG THERAPY 08/14/2016 EDI FAUSTIN DO Ot R10.11 RIGHT UPPER QUADRANT PAIN 08/15/2016 JANELLE ESPITIA APRN Ot E11 .9 TYPE 2 DIABETES MELLITUS WITHOUT COMPLIC 08/15/2016 JANELLE ESPITIA CUSTOMER RELATIONSHIP SPECIALIST Ot F41 .9 ANXIETY DISORDER, UNSPECIFIED 08/15/2016 JANELLE ESPITIA CUSTOMER RELATIONSHIP SPECIALIST Ot I10 ESSENTIAL (PRIMARY) HYPERTENSION 08/15/2016 JANELLE ESPITIA CUSTOMER RELATIONSHIP SPECIALIST Ot J44 .9 CHRONIC OBSTRUCTIVE PULMONARY DISEASE, U 08/15/2016 JANELLE ESPITIA CUSTOMER RELATIONSHIP SPECIALIST Ot R07.89 OTHER CHEST PAIN 08/15/2016 JANELLE ESPITIA CUSTOMER RELATIONSHIP SPECIALIST Ot R07 .9 CHEST PAIN, UNSPECIFIED 08/15/2016 JANELLE ESPITIA CUSTOMER RELATIONSHIP SPECIALIST Ot Z79.84 STUDY MANAGER (CURRENT) USE OF ORAL HYPOGLYC 08/15/2016 JANELLE ESPITIA CUSTOMER RELATIONSHIP SPECIALIST Ot Z79.899 OTHER LONGTERM (CURRENT) DRUG THERAPY 08/15/2016 JANELLE ESPITIA CUSTOMER RELATIONSHIP SPECIALIST Ot E11 .9 TYPE 2 DIABETES MELLITUS WITHOUT COMPLIC 08/15/2016 JANELLE ESPITIA CUSTOMER RELATIONSHIP SPECIALIST Ot F41 .9 ANXIETY DISORDER, UNSPECIFIED 08/15/2016 JANELLE ESPTIIA CUSTOMER RELATIONSHIP SPECIALIST Ot I10 ESSENTIAL (PRIMARY) HYPERTENSION 08/15/2016 JANELLE ESPITIA CUSTOMER RELATIONSHIP SPECIALIST Ot J44 .9 CHRONIC OBSTRUCTIVE PULMONARY DISEASE, U 08/15/2016 JANELLE ESPITIA CUSTOMER RELATIONSHIP SPECIALIST Ot R07.89 OTHER CHEST PAIN 08/15/2016 JANELLE SEPITIA CUSTOMER RELATIONSHIP SPECIALIST Ot R07 .9 CHEST PAIN, UNSPECIFIED 08/15/2016 JANELLE ESPITIA CUSTOMER RELATIONSHIP SPECIALIST Ot Z79.84 STUDY MANAGER (CURRENT) USE OF ORAL HYPOGLYC 08/15/2016 JANELLE ESPITIA CUSTOMER RELATIONSHIP SPECIALIST Ot Z79.899 OTHER STUDY MANAGER (CURRENT) DRUG THERAPY 08/21/2016 ZAHIRA PETERSEN DO Ot E66. 01 MORBID (SEVERE) OBESITY DUE TO EXCESS CA 08/21/2016 ZAHIRA PETERSEN DO Ot J30. 9 ALLERGIC RHINITIS, UNSPECIFIED 08/21/2016 ZAHIRA PETERSEN DO Ot R06. 02 SHORTNESS OF BREATH 08/21/2016 ZAHIRA PETERSEN DO Ot R91. 1 SOLITARY PULMONARY NODULE 08/24/2016 JANELLE ESPITIA APRN Ot E11 .9 TYPE 2 DIABETES MELLITUS WITHOUT COMPLIC 08/24/2016 JANELLE ESPITIA APRN Ot J44 .9 CHRONIC OBSTRUCTIVE PULMONARY DISEASE, U 08/24/2016 JANELLE ESPITIA APRN Ot M54 .5 LOW BACK PAIN 08/24/2016 JANELLE ESPITIA CUSTOMER RELATIONSHIP SPECIALIST Ot Z79.84 STUDY MANAGER (CURRENT) USE OF ORAL HYPOGLYC 08/24/2016 JANELLE ESPITIA CUSTOMER RELATIONSHIP SPECIALIST Ot Z79.899 OTHER STUDY MANAGER (CURRENT) DRUG THERAPY 08/26/2016 JANELLE ESPITIA CUSTOMER RELATIONSHIP SPECIALIST Ot E11 .9 TYPE 2 DIABETES MELLITUS WITHOUT COMPLIC 08/26/2016 JANELLE ESPITIA CUSTOMER RELATIONSHIP SPECIALIST Ot J44 .9 CHRONIC OBSTRUCTIVE PULMONARY DISEASE, U 08/26/2016 JANELLE ESPITIA CUSTOMER RELATIONSHIP SPECIALIST Ot M54 .5 LOW BACK PAIN 08/26/2016 JANELLE ESPITIA CUSTOMER RELATIONSHIP SPECIALIST Ot Z79.84 STUDY MANAGER (CURRENT) USE OF ORAL HYPOGLYC 08/26/2016 JANELLE ESPITIA APRN Ot Z79.899 OTHER STUDY MANAGER (CURRENT) DRUG THERAPY 09/04/2016 ZAHIRA PETERSEN DO Ot E66. 01 MORBID (SEVERE) OBESITY DUE TO EXCESS CA 09/04/2016 ZAHIRA PETERSEN DO, Ot J30. 9 ALLERGIC RHINITIS, UNSPECIFIED 09/04/2016 ZAHIRA PETERSEN DO Ot R06. 02 SHORTNESS OF BREATH 09/04/2016 ZAHIRA PETERSEN DO Ot R91. 1 SOLITARY PULMONARY NODULE 09/04/2016 NICKY THOMPSON MD Ot E11.6 5 TYPE 2 DIABETES MELLITUS WITH HYPERGLYCE 09/04/2016 NICKY THOMPSON MD Ot R10.1 1 RIGHT UPPER QUADRANT PAIN 09/13/2016 EDI FAUSTIN [...] OTHER DYSPHAGIA 09/13/2016 KISHA CARRILLO MD Ot R49 .0 DYSPHONIA 09/13/2016 KISHA CARRILLO MD Ot R13.10 DYSPHAGIA, UNSPECIFIED 09/13/2016 EDI FAUSTIN DO Ot R07.81 PLEURODYNIA 09/13/2016 MAJOR GIPSON APRN Ot J30.9 ALLERGIC RHINITIS, UNSPECIFIED 09/13/2016 MAJOR GIPSON APRN Ot R06.02 SHORTNESS OF BREATH 09/13/2016 ZAHIRA PETERSEN DO Ot E66. 01 MORBID (SEVERE) OBESITY DUE TO EXCESS CA 09/13/2016 TRINITY DO, ZAHIRA M Ot J30. 9 ALLERGIC RHINITIS, UNSPECIFIED 09/13/2016 ZAHIRA PETERSEN DO Ot R06. 02 SHORTNESS OF BREATH 09/13/2016 ZAHIRA PETERSEN DO Ot E66. 01 MORBID (SEVERE) OBESITY DUE TO EXCESS CA 09/13/2016 ZAHIRA PETERSEN DO Ot J30. 9 ALLERGIC RHINITIS, UNSPECIFIED 09/13/2016 ZAHIRA PETERSEN DO Ot R06. 02 SHORTNESS OF BREATH 09/13/2016 ZAHIRA PETERSEN DO Ot R91. 1 SOLITARY PULMONARY NODULE 09/13/2016 RAMIN LOU EDI Meghan Ot N64.4 MASTODYNIA 09/13/2016 ZAHIRA PETERSEN DO Ot E66. 01 MORBID (SEVERE) OBESITY DUE TO EXCESS CA 09/13/2016 ZAHIRA PETERSEN DO Ot J30. 9 ALLERGIC RHINITIS, UNSPECIFIED 09/13/2016 ZAHIRA PETERSEN DO Ot R06. 02 SHORTNESS OF BREATH 09/13/2016 EDI FAUSTIN DO Ot R10.12 LEFT UPPER QUADRANT PAIN 09/13/2016 EDI FAUSTIN DO Ot R10.11 RIGHT UPPER QUADRANT PAIN 09/13/2016 NICKY THOMPSON MD Ot E11.6 5 TYPE 2 DIABETES MELLITUS WITH HYPERGLYCE 09/13/2016 NICKY THOMPSON MD Ot R10.1 1 RIGHT UPPER QUADRANT PAIN 09/13/2016 DAVID CULLEN, LAYTON Spencer Ot E11.9 TYPE 2 DIABETES MELLITUS WITHOUT COMPLIC 09/13/2016 LAYTON HERNANDEZ MD Ot I10 ESSENTIAL (PRIMARY) HYPERTENSION 09/13/2016 DAVID CULLEN, LAYTON Spencer Ot J02.0 STREPTOCOCCAL PHARYNGITIS 09/13/2016 LAYTON HERNANDEZ MD Ot J02.9 ACUTE PHARYNGITIS, UNSPECIFIED 09/13/2016 LAYTON HERNANDEZ MD Ot J44.9 CHRONIC OBSTRUCTIVE PULMONARY DISEASE, U 09/13/2016 LAYTON HERNANDEZ MD Ot K59.00 CONSTIPATION, UNSPECIFIED 09/13/2016 LAYTON HERNANDEZ MD Ot K82.9 DISEASE OF GALLBLADDER, UNSPECIFIED 09/13/2016 LAYTON HERNANDEZ MD Ot R11.2 NAUSEA WITH VOMITING, UNSPECIFIED 09/13/2016 LAYTON HERNANDEZ MD Ot Z79.899 OTHER STUDY MANAGER (CURRENT) DRUG THERAPY 09/13/2016 LAYTON HERNANDEZ MD Ot Z87.891 PERSONAL HISTORY OF NICOTINE DEPENDENCE 09/16/2016 LAYTON HERNANDEZ MD Ot E11.9 TYPE 2 DIABETES MELLITUS WITHOUT COMPLIC 09/16/2016 LAYTON HERNANDEZ MD Ot I10 ESSENTIAL (PRIMARY) HYPERTENSION 09/16/2016 LAYTON HERNANDEZ MD Ot J02.0 STREPTOCOCCAL PHARYNGITIS 09/16/2016 LAYTON HERNANDEZ MD Ot J02.9 ACUTE PHARYNGITIS, UNSPECIFIED 09/16/2016 LAYTON HERNANDEZ MD Ot J44.9 CHRONIC OBSTRUCTIVE PULMONARY DISEASE, U 09/16/2016 LAYTON HERNANDEZ MD Ot K59.00 CONSTIPATION, UNSPECIFIED 09/16/2016 LAYTON HERNANDEZ MD Ot K82.9 DISEASE OF GALLBLADDER, UNSPECIFIED 09/16/2016 LAYTON HERNANDEZ MD Ot R11.2 NAUSEA WITH VOMITING, UNSPECIFIED 09/16/2016 LAYTON HERNANDEZ MD Ot Z79.899 OTHER LONGTERM (CURRENT) DRUG THERAPY 09/16/2016 LAYTON HERNANDEZ MD Ot Z87.891 PERSONAL HISTORY OF NICOTINE DEPENDENCE 09/16/2016 STEPHANE KIMBLE DO Ot 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 11 RIGHT UPPER QUADRANT PAIN 09/16/2016 STEPHANE KIMBLE DO Ot Z01.818 ENCOUNTER FOR OTHER PREPROCEDURAL EXAMIN 09/16/2016 STEPHANE KIMBLE DO Ot Z11. 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 11 RIGHT UPPER QUADRANT PAIN 09/17/2016 STEPHANE KIMBLE DO Ot Z01.818 ENCOUNTER FOR OTHER PREPROCEDURAL EXAMIN 09/17/2016 STEPHANE KIMBLE DO Ot Z11. 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 1 CHRONIC CHOLECYSTITIS 09/26/2016 NICKY THOMPSON MD Ot E11.6 5 TYPE 2 DIABETES MELLITUS WITH HYPERGLYCE 09/26/2016 NICKY THOMPSON MD Ot R10.1 1 RIGHT UPPER QUADRANT PAIN 10/03/2016 NICKY THOMPSON MD Ot E11.6 5 TYPE 2 DIABETES MELLITUS WITH HYPERGLYCE 10/03/2016 NICKY THOMPSON MD Ot R10.1 1 RIGHT UPPER QUADRANT PAIN 10/16/2016 EDI FAUSTIN DO Ot Z12.31 ENCNTR SCREEN MAMMOGRAM FOR MALIGNANT NE 10/16/2016 KISHA BALDWIN MD Ot M75.112 INCOMPLETE ROTATR-CUFF TEAR/RUPTR OF L S 10/16/2016 EDI FAUSTIN DO Ot J18.9 PNEUMONIA, UNSPECIFIED ORGANISM 10/16/2016 EDI FAUSTIN DO, Ot J40 BRONCHITIS, NOT SPECIFIED ACUTE OR CH 10/16/2016 KISHA BALDWIN MD Ot M75.102 UNSP ROTATR-CUFF TEAR/RUPTR OF LEFT SHOU 10/16/2016 KISHA BALDWIN MD Ot Z01.818 ENCOUNTER FOR OTHER PREPROCEDURAL EXAMIN 10/16/2016 KISHA BALDWIN MD Ot Z11.2 ENCOUNTER FOR SCREENING FOR OTHER BACTER 10/16/2016 KISHA CARRILLO MD Ot R13.19 OTHER DYSPHAGIA 10/16/2016 KISHA CARRILLO MD Ot R49 .0 DYSPHONIA 10/16/2016 KISHA CARRILLO MD Ot R13.10 DYSPHAGIA, UNSPECIFIED 10/16/2016 EDI FAUSTIN DO Ot R07.81 PLEURODYNIA 10/16/2016 MAJOR GIPSON APRN Ot J30.9 ALLERGIC RHINITIS, UNSPECIFIED 10/16/2016 MAJOR GIPSON APRN Ot R06.02 SHORTNESS OF BREATH 10/16/2016 ZAHIRA PETERSEN DO Ot E66. 01 MORBID (SEVERE) OBESITY DUE TO EXCESS CA 10/16/2016 ZAHIRA PETERSEN DO, Ot J30. 9 ALLERGIC RHINITIS, UNSPECIFIED 10/16/2016 ZAHIRA PETERSEN DO Ot R06. 02 SHORTNESS OF BREATH 10/16/2016 ZAHIRA PETERSEN DO Ot E66. 01 MORBID (SEVERE) OBESITY DUE TO EXCESS CA 10/16/2016 ZAHIRA PETERSEN DO Ot J30. 9 ALLERGIC RHINITIS, UNSPECIFIED 10/16/2016 ZAHIRA PETERSEN DO Ot R06. 02 SHORTNESS OF BREATH 10/16/2016 ZAHIRA PETERSEN DO Ot R91. 1 SOLITARY PULMONARY NODULE 10/16/2016 EDI FAUSTIN DO Ot N64.4 MASTODYNIA 10/16/2016 ZAHIRA PETERSEN DO Ot E66. 01 MORBID (SEVERE) OBESITY DUE TO EXCESS CA 10/16/2016 ZAHIRA PETERSEN DO Ot J30. 9 ALLERGIC RHINITIS, UNSPECIFIED 10/16/2016 ZAHIRA PETERSEN DO Ot R06. 02 SHORTNESS OF BREATH 10/16/2016 JCARLOSDAYLIN EDI LOU Ot R10.12 LEFT UPPER QUADRANT PAIN 10/16/2016 EDI FAUSTIN DO Ot R10.11 RIGHT UPPER QUADRANT PAIN 10/16/2016 NICKY THOMPSON MD Ot E11.6 5 TYPE 2 DIABETES MELLITUS WITH HYPERGLYCE 10/16/2016 NICKY THOMPSON MD Ot R10.1 1 RIGHT UPPER QUADRANT PAIN 10/16/2016 LUNA LEGER MD Ot E11.9 TYPE 2 DIABETES MELLITUS WITHOUT COMPLIC 10/16/2016 LUNA LEGER MD, Ot J44.9 CHRONIC OBSTRUCTIVE PULMONARY DISEASE, U 10/16/2016 LUNA LEGER MD Ot R10.31 RIGHT LOWER QUADRANT PAIN 10/16/2016 LUNA LEGER MD Ot Z79.84 STUDY MANAGER (CURRENT) USE OF ORAL HYPOGLYC 10/16/2016 LUNA LEGER MD Ot Z79.899 OTHER STUDY MANAGER (CURRENT) DRUG THERAPY 10/16/2016 LUNA LEGER MD Ot Z90.49 ACQUIRED ABSENCE OF OTHER SPECIFIED PART 11/03/2016 CHRISTO VIDAL MD Ot J02. 0 STREPTOCOCCAL PHARYNGITIS 11/03/2016 CHRISTO VIDAL MD Ot N39. 0 URINARY TRACT INFECTION, SITE NOT SPECIF 11/03/2016 CHRISTO VIDAL MD Ot R05 COUGH 11/03/2016 CHRISTO VIDAL MD Ot R07. 89 OTHER CHEST PAIN 11/03/2016 YOUNG CULLEN CHRISTO Huston Ot Z79. 84 STUDY MANAGER (CURRENT) USE OF ORAL HYPOGLYC 11/03/2016 YOUNG CULLEN, CHRISTO Huston Ot Z87.891 PERSONAL HISTORY OF NICOTINE DEPENDENCE 11/05/2016 YOUNG CULLEN, CHRISTO Huston Ot J02. 0 STREPTOCOCCAL PHARYNGITIS 11/05/2016 YOUNG CULLEN, CHRISTO Robel Ot N39. 0 URINARY TRACT INFECTION, SITE NOT SPECIF 11/05/2016 CHRISTO VIDAL MD Ot R05 COUGH 11/05/2016 YOUNG CULLEN, CHRISTO Huston Ot R07. 89 OTHER CHEST PAIN 11/05/2016 YOUNG CULLEN CHRISTO Huston Ot Z79. 84 STUDY MANAGER (CURRENT) USE OF ORAL HYPOGLYC 11/05/2016 YOUNG CULLEN CHRISTO Huston Ot Z87.891 PERSONAL HISTORY OF NICOTINE DEPENDENCE 11/05/2016 PATRIC MONTERO MD Ot R10.31 RIGHT LOWER QUADRANT PAIN 11/05/2016 PATRIC MONTERO MD Ot R10.31 RIGHT LOWER QUADRANT PAIN 11/22/2016 RAQUEL ROLDAN L Ot 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 11/22/2016 RAQUEL ROLDAN Ot E11.9 TYPE 2 DIABETES MELLITUS WITHOUT COMPLIC 11/22/2016 RAQUEL ROLDAN Ot J44.9 CHRONIC OBSTRUCTIVE PULMONARY DISEASE, U 11/22/2016 RAQUEL ROLDAN Ot Z79.4 LONGTERM (CURRENT) USE OF INSULIN 11/22/2016 RAQUEL ROLDAN Ot Z79.899 OTHER STUDY MANAGER (CURRENT) DRUG THERAPY 11/25/2016 RAQUEL ROLDAN Ot 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 11/25/2016 RAQUEL ROLDAN Ot E11.9 TYPE 2 DIABETES MELLITUS WITHOUT COMPLIC 11/25/2016 RAQUEL ROLDAN Ot J44.9 CHRONIC OBSTRUCTIVE PULMONARY DISEASE, U 11/25/2016 RAQUEL ROLDAN Ot Z79.4 LONGTERM (CURRENT) USE OF INSULIN 11/25/2016 RAQUEL ROLDAN L Ot Z79.899 OTHER STUDY MANAGER (CURRENT) DRUG THERAPY 11/26/2016 PATRIC MONTERO MD Ot R10.31 RIGHT LOWER QUADRANT PAIN 11/28/2016 Nia RAI MDN Ot E11 .9 TYPE 2 DIABETES MELLITUS WITHOUT COMPLIC 11/28/2016 CECELIA CULLEN, Nia WILSON Ot E78 .5 HYPERLIPIDEMIA, UNSPECIFIED 11/28/2016 Nia RAI MD Ot J44 .9 CHRONIC OBSTRUCTIVE PULMONARY DISEASE, U 11/28/2016 CECELIA CULLEN, Nia WILSON Ot R07 .9 CHEST PAIN, UNSPECIFIED 11/28/2016 CECELIA CULLEN, Nia WILSON Ot E11 .9 TYPE 2 DIABETES MELLITUS WITHOUT COMPLIC 11/28/2016 CECELIA CULLEN, Nia WILSON Ot E78 .5 HYPERLIPIDEMIA, UNSPECIFIED 11/28/2016 CECELIA CULLEN, Nia WILSON Ot J44 .9 CHRONIC OBSTRUCTIVE PULMONARY DISEASE, U 11/28/2016 Nia RAI MD Ot R07 .9 CHEST PAIN, UNSPECIFIED 12/01/2016 Nia RAI MD Ot E11 .9 TYPE 2 DIABETES MELLITUS WITHOUT COMPLIC 12/01/2016 CECELIA CULLEN, Nia WILSON Ot E78 .5 HYPERLIPIDEMIA, UNSPECIFIED 12/01/2016 Nia RAI MD Ot J44 .9 CHRONIC OBSTRUCTIVE PULMONARY DISEASE, U 12/01/2016 CECELIA CULLEN, Nia WILSON Ot R07 .9 CHEST PAIN, UNSPECIFIED 12/06/2016 KYLAH CULLEN, PATRIC N Ot R10.31 RIGHT LOWER QUADRANT PAIN 12/19/2016 iNa RAI MD Ot E11 .9 TYPE 2 DIABETES MELLITUS WITHOUT COMPLIC 12/19/2016 Nia RAI MD Ot E78 .5 HYPERLIPIDEMIA, UNSPECIFIED 12/19/2016 Nia RAI MD Ot J44 .9 CHRONIC OBSTRUCTIVE PULMONARY DISEASE, U 12/19/2016 Nia RAI MD Ot R07 .9 CHEST PAIN, UNSPECIFIED 12/19/2016 Nia RAI MD Ot E11 .9 TYPE 2 DIABETES MELLITUS WITHOUT COMPLIC 12/19/2016 Nia RAI MD Ot E78 .5 HYPERLIPIDEMIA, UNSPECIFIED 12/19/2016 Nia RAI MD Ot J44 .9 CHRONIC OBSTRUCTIVE PULMONARY DISEASE, U 12/19/2016 Nia RAI MDZWAN Ot R07 .9 CHEST PAIN, UNSPECIFIED 12/27/2016 EDI FAUSTIN DO Meghan Ot N64.4 MASTODYNIA 12/27/2016 Nia RAI MD Ot E11 .9 TYPE 2 DIABETES MELLITUS WITHOUT COMPLIC 12/27/2016 CECELIA CULLEN, Nia WILSON Ot E78 .5 HYPERLIPIDEMIA, UNSPECIFIED 12/27/2016 CECELIA CULLEN, Nia WILSON Ot J44 .9 CHRONIC OBSTRUCTIVE PULMONARY DISEASE, U 12/27/2016 CECELIA CULLEN, Nia WILSON Ot R07 .9 CHEST PAIN, UNSPECIFIED 01/01/2017 CECELIA CULLEN, Nia WILSON Ot E11 .9 TYPE 2 DIABETES MELLITUS WITHOUT COMPLIC 01/01/2017 Nia RAI MD Ot E78 .5 HYPERLIPIDEMIA, UNSPECIFIED 01/01/2017 Nia RAI MD Ot J44 .9 CHRONIC OBSTRUCTIVE PULMONARY DISEASE, U 01/01/2017 Nia RAI MD Ot R07 .9 CHEST PAIN, UNSPECIFIED 01/30/2017 JANELLE ESPITIA APRN Ot E78.00 PURE HYPERCHOLESTEROLEMIA, UNSPECIFIED 01/30/2017 JANELLE ESPITIA APRN Ot F31 .9 BIPOLAR DISORDER, UNSPECIFIED 01/30/2017 JANELLE ESPITIA APRN Ot F41 .9 ANXIETY DISORDER, UNSPECIFIED 01/30/2017 JANELLE ESPITIA APRN Ot J44 .9 CHRONIC OBSTRUCTIVE PULMONARY DISEASE, U 01/30/2017 JANELLE ESPITIA APRN Ot K21 .9 GASTRO-ESOPHAGEAL REFLUX DISEASE WITHOUT 01/30/2017 JANELLE ESPITIA CUSTOMER RELATIONSHIP SPECIALIST Ot M79.604 PAIN IN RIGHT LEG 01/30/2017 JANELLE ESPITIA APRN Ot Z87.891 PERSONAL HISTORY OF NICOTINE DEPENDENCE 02/09/2017 LAUREL SHEN MD Ot E11. 9 TYPE 2 DIABETES MELLITUS WITHOUT COMPLIC 02/09/2017 LAUREL SHEN MD Ot J44. 9 CHRONIC OBSTRUCTIVE PULMONARY DISEASE, U 02/09/2017 LAUREL SHEN MD Ot S83.91XA SPRAIN OF UNSPECIFIED SITE OF RIGHT KNEE 02/09/2017 LAUREL SHEN MD Ot S89.91XA UNSPECIFIED INJURY OF RIGHT LOWER LEG, I 02/09/2017 LAUREL SHEN MD Ot W22.03XA WALKED INTO FURNITURE, INITIAL ENCOUNTER 02/09/2017 LAUREL SHEN MD Ot Y99. 8 OTHER EXTERNAL CAUSE STATUS 02/09/2017 LAUREL SHEN MD Ot Z79. 82 STUDY MANAGER (CURRENT) USE OF ASPIRIN 02/11/2017 LAUREL SHEN MD Ot E11. 9 TYPE 2 DIABETES MELLITUS WITHOUT COMPLIC 02/11/2017 LAUREL SHEN MD, Ot J44. 9 CHRONIC OBSTRUCTIVE PULMONARY DISEASE, U 02/11/2017 LAUREL SHEN MD Ot S83.91XA SPRAIN OF UNSPECIFIED SITE OF RIGHT KNEE 02/11/2017 LAUREL SHEN MD Ot S89.91XA UNSPECIFIED INJURY OF RIGHT LOWER LEG, I 02/11/2017 LAUREL SHEN MD, Ot W22.03XA WALKED INTO FURNITURE, INITIAL ENCOUNTER 02/11/2017 LAUREL SHEN MD Ot Y99. 8 OTHER EXTERNAL CAUSE STATUS 02/11/2017 LAUREL SHEN MD, Ot Z79. 82 LONGTERM (CURRENT) USE OF ASPIRIN 02/27/2017 EDI FAUSTIN DO, Ot Z12.31 ENCNTR SCREEN MAMMOGRAM FOR MALIGNANT NE 02/27/2017 KISHA BALDWIN MD, Ot M75.112 INCOMPLETE ROTATR-CUFF TEAR/RUPTR OF L S 02/27/2017 EDI FAUSTIN DO, Ot J18.9 PNEUMONIA, UNSPECIFIED ORGANISM 02/27/2017 EDI FAUSTIN DO, Ot J40 BRONCHITIS, NOT SPECIFIED ACUTE OR CH 02/27/2017 KISHA BALDWIN MD, Ot M75.102 UNSP ROTATR-CUFF TEAR/RUPTR OF LEFT SHOU 02/27/2017 KISHA BALDWIN MD, Ot Z01.818 ENCOUNTER FOR OTHER PREPROCEDURAL EXAMIN 02/27/2017 KISHA BALDWIN MD Ot Z11.2 ENCOUNTER FOR SCREENING FOR OTHER BACTER 02/27/2017 KISHA CARRILLO MD Ot R13.19 OTHER DYSPHAGIA 02/27/2017 KISHA CARRILLO MD Ot R49 .0 DYSPHONIA 02/27/2017 KISHA CARRILLO MD Ot R13.10 DYSPHAGIA, UNSPECIFIED 02/27/2017 EDI FAUSTIN DO Ot R07.81 PLEURODYNIA 02/27/2017 MAJOR GIPSON APRN Ot J30.9 ALLERGIC RHINITIS, UNSPECIFIED 02/27/2017 MAJOR GIPSON APRN Ot R06.02 SHORTNESS OF BREATH 02/27/2017 TRINITY ZAHIRA M Ot E66. 01 MORBID (SEVERE) OBESITY DUE TO EXCESS CA 02/27/2017 TRINITY LOU ZAHIRA Kramer Ot J30. 9 ALLERGIC RHINITIS, UNSPECIFIED 02/27/2017 TRINITY LOU ZAHIRA M Ot R06. 02 SHORTNESS OF BREATH 02/27/2017 TRINITY ZAHIRA Nia Ot E66. 01 MORBID (SEVERE) OBESITY DUE TO EXCESS CA 02/27/2017 TRINITY ZAHIRA M Ot J30. 9 ALLERGIC RHINITIS, UNSPECIFIED 02/27/2017 TRINITY ZAHIRA Nia Ot R06. 02 SHORTNESS OF BREATH 02/27/2017 TRINITY LOU ZAHIRA Nia Ot R91. 1 SOLITARY PULMONARY NODULE 02/27/2017 EDI FAUSTIN DO Ot N64.4 MASTODYNIA 02/27/2017 TRINITY LOU ZAHIRA Nia Ot E66. 01 MORBID (SEVERE) OBESITY DUE TO EXCESS CA 02/27/2017 TRINITY LOU ZAHIRA Nia Ot J30. 9 ALLERGIC RHINITIS, UNSPECIFIED 02/27/2017 TRINITY LOU ZAHIRA Nia Ot R06. 02 SHORTNESS OF BREATH 02/27/2017 EDI FAUSTIN DO Ot R10.12 LEFT UPPER QUADRANT PAIN 02/27/2017 EDI FAUSTIN DO Ot R10.11 RIGHT UPPER QUADRANT PAIN 02/27/2017 NICKY THOMPSON MD Ot E11.6 5 TYPE 2 DIABETES MELLITUS WITH HYPERGLYCE 02/27/2017 NICKY THOMPSON MD Ot R10.1 1 RIGHT UPPER QUADRANT PAIN 02/27/2017 KYLAH CULLEN, PATRIC Saucedo Ot R10.31 RIGHT LOWER QUADRANT PAIN 02/27/2017 CECELIA CULLEN, Nia WILSON Ot E11 .9 TYPE 2 DIABETES MELLITUS WITHOUT COMPLIC 02/27/2017 CECELIA CULLEN, Nia WILSON Ot E78 .5 HYPERLIPIDEMIA, UNSPECIFIED 02/27/2017 CECELIA CULLEN, Nia WILSON Ot J44 .9 CHRONIC OBSTRUCTIVE PULMONARY DISEASE, U 02/27/2017 CECELIA CULLEN, Nia WILSON Ot R07 .9 CHEST PAIN, UNSPECIFIED 02/27/2017 CECELIA CULLEN, Nia WILSON Ot E11 .9 TYPE 2 DIABETES MELLITUS WITHOUT COMPLIC 02/27/2017 Nia RAI MD Ot E78 .5 HYPERLIPIDEMIA, UNSPECIFIED 02/27/2017 Nia RAI MD Ot J44 .9 CHRONIC OBSTRUCTIVE PULMONARY DISEASE, U 02/27/2017 Nia RAI MD Ot R07 .9 CHEST PAIN, UNSPECIFIED 02/28/2017 EDI FAUSTIN DO [...] OTHER DYSPHAGIA 02/28/2017 KISHA CARRILLO MD Ot R49 .0 DYSPHONIA 02/28/2017 KISHA CARRILLO MD Ot R13.10 DYSPHAGIA, UNSPECIFIED 02/28/2017 EDI FAUSTIN DO Ot R07.81 PLEURODYNIA 02/28/2017 MAJOR GIPSON APRN Ot J30.9 ALLERGIC RHINITIS, UNSPECIFIED 02/28/2017 MAJOR GIPSON APRN Ot R06.02 SHORTNESS OF BREATH 02/28/2017 ZAHIRA PETERSEN DO Ot E66. 01 MORBID (SEVERE) OBESITY DUE TO EXCESS CA 02/28/2017 ZAHIRA PETERSEN DO Ot J30. 9 ALLERGIC RHINITIS, UNSPECIFIED 02/28/2017 ZAHIRA PETERSEN DO Ot R06. 02 SHORTNESS OF BREATH 02/28/2017 ZAHIRA PETERSEN DO Ot E66. 01 MORBID (SEVERE) OBESITY DUE TO EXCESS CA 02/28/2017 ZAHIRA PETERSEN DO Ot J30. 9 ALLERGIC RHINITIS, UNSPECIFIED 02/28/2017 ZAHIRA PETERSEN DO Ot R06. 02 SHORTNESS OF BREATH 02/28/2017 ZAHIRA PETERSEN DO Ot R91. 1 SOLITARY PULMONARY NODULE 02/28/2017 RAMIN LOU EDI Meghan Ot N64.4 MASTODYNIA 02/28/2017 ZAHIRA PETERSEN DO Ot E66. 01 MORBID (SEVERE) OBESITY DUE TO EXCESS CA 02/28/2017 ZAHIRA PETERSEN DO Ot J30. 9 ALLERGIC RHINITIS, UNSPECIFIED 02/28/2017 ZAHIRA PETERSEN DO Ot R06. 02 SHORTNESS OF BREATH 02/28/2017 ZURIBJDAYLIN EDI LOU Ot R10.12 LEFT UPPER QUADRANT PAIN 02/28/2017 EDI FAUSTIN DO Ot R10.11 RIGHT UPPER QUADRANT PAIN 02/28/2017 DONNA CULLEN, NICKY Lawrence Ot E11.6 5 TYPE 2 DIABETES MELLITUS WITH HYPERGLYCE 02/28/2017 NICKY THOMPSON MD Ot R10.1 1 RIGHT UPPER QUADRANT PAIN 02/28/2017 KYLAH CULLEN, PATRIC Saucedo Ot R10.31 RIGHT LOWER QUADRANT PAIN 02/28/2017 CECELIA CULLEN, Nia WILSON Ot E11 .9 TYPE 2 DIABETES MELLITUS WITHOUT COMPLIC 02/28/2017 CECELIA CULLEN, Nia WILSON Ot E78 .5 HYPERLIPIDEMIA, UNSPECIFIED 02/28/2017 Nia RAI MD Ot J44 .9 CHRONIC OBSTRUCTIVE PULMONARY DISEASE, U 02/28/2017 Nia RAI MD Ot R07 .9 CHEST PAIN, UNSPECIFIED 02/28/2017 Nia RAI MD Ot E11 .9 TYPE 2 DIABETES MELLITUS WITHOUT COMPLIC 02/28/2017 Nia RAI MD Ot E78 .5 HYPERLIPIDEMIA, UNSPECIFIED 02/28/2017 Nia RAI MD Ot J44 .9 CHRONIC OBSTRUCTIVE PULMONARY DISEASE, U 02/28/2017 Nia RAI MD Ot R07 .9 CHEST PAIN, UNSPECIFIED 02/28/2017 ZAHIRA PETERSEN DO Ot E66. 01 MORBID (SEVERE) OBESITY DUE TO EXCESS CA 02/28/2017 ZAHIRA PETERSEN DO Ot J30. 9 ALLERGIC RHINITIS, UNSPECIFIED 02/28/2017 ZAHIRA PETERSEN DO Nia Ot R06. 02 SHORTNESS OF BREATH 02/28/2017 KISHA BALDWIN MD, Ot M22.41 CHONDROMALACIA PATELLAE, RIGHT KNEE 02/28/2017 KISHA BALDWIN MD, Ot Z01.818 ENCOUNTER FOR OTHER PREPROCEDURAL EXAMIN 02/28/2017 KISHA BALDWIN MD, Ot Z11.2 ENCOUNTER FOR SCREENING FOR OTHER BACTER 03/04/2017 LAUREL SHEN MD Ot E11. 9 TYPE 2 DIABETES MELLITUS WITHOUT COMPLIC 03/04/2017 LAUREL SHEN MD, Ot J44. 9 CHRONIC OBSTRUCTIVE PULMONARY DISEASE, U 03/04/2017 LAUREL SHEN MD, Ot S83.91XA SPRAIN OF UNSPECIFIED SITE OF RIGHT KNEE 03/04/2017 LAUREL SHEN MD, Ot S89.91XA UNSPECIFIED INJURY OF RIGHT LOWER LEG, I 03/04/2017 LAUREL SHEN MD, Ot W22.03XA WALKED INTO FURNITURE, INITIAL ENCOUNTER 03/04/2017 LAUREL SHEN MD Ot Y99. 8 OTHER EXTERNAL CAUSE STATUS 03/04/2017 LAUREL SHEN MD, Ot Z79. 82 LONGTERM (CURRENT) USE OF ASPIRIN 03/05/2017 KISHA BALDWIN [...] 03/05/2017 KISHA BALDWIN MD, Ot Z79.899 OTHER STUDY MANAGER (CURRENT) DRUG THERAPY 03/05/2017 KISHA BALDWIN MD, Ot Z87.891 PERSONAL HISTORY OF NICOTINE DEPENDENCE 03/06/2017 JANELLE ESPITIA APRN Ot E78.00 PURE HYPERCHOLESTEROLEMIA, UNSPECIFIED 03/06/2017 JANELLE ESPITIA APRN Ot F31 .9 BIPOLAR DISORDER, UNSPECIFIED 03/06/2017 JANELLE ESPITIA APRN Ot F41 .9 ANXIETY DISORDER, UNSPECIFIED 03/06/2017 JANELLE ESPITIA APRN Ot J44 .9 CHRONIC OBSTRUCTIVE PULMONARY DISEASE, U 03/06/2017 JANELLE ESPITIA APRN Ot K21 .9 GASTRO-ESOPHAGEAL REFLUX DISEASE WITHOUT 03/06/2017 JANELLE ESPITIA APRN Ot M79.604 PAIN IN RIGHT LEG 03/06/2017 JANELLE ESPITIA APRN Ot Z87.891 PERSONAL HISTORY OF NICOTINE DEPENDENCE 03/06/2017 LAUREL SHEN MD Ot E11. 9 TYPE 2 DIABETES MELLITUS WITHOUT COMPLIC 03/06/2017 LAUREL SHEN MD, Ot J44. 9 CHRONIC OBSTRUCTIVE PULMONARY DISEASE, U 03/06/2017 LAUREL SHEN MD Ot S83.91XA SPRAIN OF UNSPECIFIED SITE OF RIGHT KNEE 03/06/2017 LAUREL SHEN MD Ot S89.91XA UNSPECIFIED INJURY OF RIGHT LOWER LEG, I 03/06/2017 LAUREL SHEN MD Ot W22.03XA WALKED INTO FURNITURE, INITIAL ENCOUNTER 03/06/2017 LAUREL SHEN MD Ot Y99. 8 OTHER EXTERNAL CAUSE STATUS 03/06/2017 LAUREL SHEN MD Ot Z79. 82 STUDY MANAGER (CURRENT) USE OF ASPIRIN 03/06/2017 KISHA BALDWIN MD, Ot E11.9 TYPE 2 DIABETES MELLITUS WITHOUT COMPLIC 03/06/2017 KISHA BALDWIN MD, Ot E66.01 MORBID (SEVERE) OBESITY DUE TO EXCESS CA 03/06/2017 KISHA BALDWIN MD Ot E78.00 PURE HYPERCHOLESTEROLEMIA, UNSPECIFIED 03/06/2017 KISHA BALDWIN MD, Ot F31.9 BIPOLAR DISORDER, UNSPECIFIED 03/06/2017 KISHA BALDWIN MD, Ot F32.9 MAJOR DEPRESSIVE DISORDER, SINGLE EPISOD 03/06/2017 KISHA BALDWIN MD Ot G47.33 OBSTRUCTIVE SLEEP APNEA (ADULT) (PEDIATR 03/06/2017 KISHA BALDWIN MD Ot J44.9 CHRONIC OBSTRUCTIVE PULMONARY DISEASE, U 03/06/2017 KISHA BALDWIN MD Ot J45.909 UNSPECIFIED ASTHMA, UNCOMPLICATED 03/06/2017 KISHA BALDWIN MD, Ot K21.9 GASTRO-ESOPHAGEAL REFLUX DISEASE WITHOUT 03/06/2017 KISHA BALDWIN MD Ot M94.261 CHONDROMALACIA, RIGHT KNEE 03/06/2017 KISHA BALDWIN MD Ot Z68.41 BODY MASS INDEX (BMI) 40.0-44.9, ADULT 03/06/2017 KISHA BALDWIN MD Ot Z79.899 OTHER LONGTERM (CURRENT) DRUG THERAPY 03/06/2017 KISHA BALDWIN MD, Ot Z87.891 PERSONAL HISTORY OF NICOTINE DEPENDENCE 03/16/2017 RAQUEL ROLDAN Ot 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 03/16/2017 RAQUEL ROLDAN Ot E11.9 TYPE 2 DIABETES MELLITUS WITHOUT COMPLIC 03/16/2017 RAQUEL ROLDAN Ot J44.9 CHRONIC OBSTRUCTIVE PULMONARY DISEASE, U 03/16/2017 RAQUEL ROLDAN Ot Z79.4 STUDY MANAGER (CURRENT) USE OF INSULIN 03/16/2017 RAQUEL ROLDAN Ot Z79.899 OTHER LONGTERM (CURRENT) DRUG THERAPY 04/08/2017 KISHA BALDWIN MD, Ot E11.9 TYPE 2 DIABETES MELLITUS WITHOUT COMPLIC 04/08/2017 KISHA BALDWIN MD, Ot E66.01 MORBID (SEVERE) OBESITY DUE TO EXCESS CA 04/08/2017 KISHA BALDWIN MD Ot E78.00 PURE HYPERCHOLESTEROLEMIA, UNSPECIFIED 04/08/2017 KISHA BALDWIN MD, Ot F31.9 BIPOLAR DISORDER, UNSPECIFIED 04/08/2017 KISHA BALDWIN MD, Ot F32.9 MAJOR DEPRESSIVE DISORDER, SINGLE EPISOD 04/08/2017 KISHA BALDWIN MD Ot G47.33 OBSTRUCTIVE SLEEP APNEA (ADULT) (PEDIATR 04/08/2017 KISHA BALDWIN MD, Ot J44.9 CHRONIC OBSTRUCTIVE PULMONARY DISEASE, U 04/08/2017 KISHA BALDWIN MD, Ot J45.909 UNSPECIFIED ASTHMA, UNCOMPLICATED 04/08/2017 KISHA BALDWIN MD Ot K21.9 GASTRO-ESOPHAGEAL REFLUX DISEASE WITHOUT 04/08/2017 KISHA BALDWIN MD Ot M94.261 CHONDROMALACIA, RIGHT KNEE 04/08/2017 KISHA BALDWIN MD, Ot Z68.41 BODY MASS INDEX (BMI) 40.0-44.9, ADULT 04/08/2017 KISHA BALDWIN MD, Ot Z79.899 OTHER LONGTERM (CURRENT) DRUG THERAPY 04/08/2017 KISHA BALDWIN MD, [...] OTHER DYSPHAGIA 04/29/2017 KISHA CARRILLO MD Ot R49 .0 DYSPHONIA 04/29/2017 KISHA CARRILLO MD Ot R13.10 DYSPHAGIA, UNSPECIFIED 04/29/2017 EDI FAUSTIN DO Ot R07.81 PLEURODYNIA 04/29/2017 MAJOR GIPSON APRN Ot J30.9 ALLERGIC RHINITIS, UNSPECIFIED 04/29/2017 MAJOR GIPSON APRN Ot R06.02 SHORTNESS OF BREATH 04/29/2017 ZAHIRA PETERSEN DO Ot E66. 01 MORBID (SEVERE) OBESITY DUE TO EXCESS CA 04/29/2017 ZAHIRA PETERSEN DO Ot J30. 9 ALLERGIC RHINITIS, UNSPECIFIED 04/29/2017 ZAHIRA PETERSEN DO Ot R06. 02 SHORTNESS OF BREATH 04/29/2017 ZAHIRA PETERSEN DO Ot E66. 01 MORBID (SEVERE) OBESITY DUE TO EXCESS CA 04/29/2017 TRINITY LOU ZAHIRA Kramer Ot J30. 9 ALLERGIC RHINITIS, UNSPECIFIED 04/29/2017 ZAHIRA PETERSEN DO Ot R06. 02 SHORTNESS OF BREATH 04/29/2017 ZAHIRA PETERSEN DO Ot R91. 1 SOLITARY PULMONARY NODULE 04/29/2017 ZURIGREG LOU EDI A Ot N64.4 MASTODYNIA 04/29/2017 ZAHIRA PETERSEN DO Ot E66. 01 MORBID (SEVERE) OBESITY DUE TO EXCESS CA 04/29/2017 TRINITY LOU ZAHIRA Kramer Ot J30. 9 ALLERGIC RHINITIS, UNSPECIFIED 04/29/2017 TRINITY LOU ZAHIRA Kramer Ot R06. 02 SHORTNESS OF BREATH 04/29/2017 EDI FAUSTIN DO A Ot R10.12 LEFT UPPER QUADRANT PAIN 04/29/2017 EDI FAUSTIN DO A Ot R10.11 RIGHT UPPER QUADRANT PAIN 04/29/2017 DONNA CULLEN, NICKY Lawrence Ot E11.6 5 TYPE 2 DIABETES MELLITUS WITH HYPERGLYCE 04/29/2017 DONNA CULLEN, NICKY Lawrence Ot R10.1 1 RIGHT UPPER QUADRANT PAIN 04/29/2017 KYLAH CULLEN, PATRIC Saucedo Ot R10.31 RIGHT LOWER QUADRANT PAIN 04/29/2017 CECELIA CULLEN, Nia WILSON Ot E11 .9 TYPE 2 DIABETES MELLITUS WITHOUT COMPLIC 04/29/2017 CECELIA CULLEN, Nia WILSON Ot E78 .5 HYPERLIPIDEMIA, UNSPECIFIED 04/29/2017 CECELIA CULLEN, Nia WILSON Ot J44 .9 CHRONIC OBSTRUCTIVE PULMONARY DISEASE, U 04/29/2017 CECELIA CULLEN, Nia WILSON Ot R07 .9 CHEST PAIN, UNSPECIFIED 04/29/2017 CECELIA CULLEN, Nia WILSON Ot E11 .9 TYPE 2 DIABETES MELLITUS WITHOUT COMPLIC 04/29/2017 CECELIA CULLEN, Nia WILSON Ot E78 .5 HYPERLIPIDEMIA, UNSPECIFIED 04/29/2017 CECELIA CULLEN, Nia WILSON Ot J44 .9 CHRONIC OBSTRUCTIVE PULMONARY DISEASE, U 04/29/2017 CECELIA CULLEN, Nia WILSON Ot R07 .9 CHEST PAIN, UNSPECIFIED 04/29/2017 KISHA BALDWIN MD [...] J45.909 UNSPECIFIED ASTHMA, UNCOMPLICATED 04/29/2017 KISHA BALDWIN MD Ot K21.9 GASTRO-ESOPHAGEAL REFLUX DISEASE WITHOUT 04/29/2017 KISHA BALDWIN MD Ot M94.261 CHONDROMALACIA, RIGHT KNEE 04/29/2017 KISHA BALDWIN MD Ot W22.8XXA STRIKING AGAINST OR STRUCK BY OTHER OBJE 04/29/2017 KISHA BALDWIN MD Ot Z68.41 BODY MASS INDEX (BMI) 40.0-44.9, ADULT 04/29/2017 KISHA BALDWIN MD Ot Z79.899 OTHER LONGTERM (CURRENT) DRUG THERAPY 04/29/2017 KISHA BALDWIN MD Ot Z87.891 PERSONAL HISTORY OF NICOTINE DEPENDENCE 04/30/2017 MAJOR GIPSON APRN Ot R06.02 SHORTNESS OF BREATH 04/30/2017 DAVID CULLEN, LAYTON Spencer Ot E11.9 TYPE 2 DIABETES MELLITUS WITHOUT COMPLIC 04/30/2017 DAVID CULLEN, LAYTON Spencer Ot E78.00 PURE HYPERCHOLESTEROLEMIA, UNSPECIFIED 04/30/2017 LAYTON HERNANDEZ MD Ot F31.9 BIPOLAR DISORDER, UNSPECIFIED 04/30/2017 LAYTON HERNANDEZ MD, Ot F41.9 ANXIETY DISORDER, UNSPECIFIED 04/30/2017 LAYTON [...] MD Ot R11.0 NAUSEA 04/30/2017 LAYTON HERNANDEZ MD Ot R51 HEADACHE 04/30/2017 LAYTON HERNANDEZ MD Ot Z79.84 STUDY MANAGER (CURRENT) USE OF ORAL HYPOGLYC 04/30/2017 LAYTON HERNANDEZ MD, Ot Z87.2 PERSONAL HISTORY OF DISEASES OF THE SKIN 04/30/2017 LAYTON HERNANDEZ MD, Ot Z87.891 PERSONAL HISTORY OF NICOTINE DEPENDENCE 04/30/2017 LAYTON HERNANDEZ MD Ot 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 04/30/2017 LAYTON HERNANDEZ MD Ot Z98.890 OTHER SPECIFIED POSTPROCEDURAL STATES 05/02/2017 [...] MD Ot R11.0 NAUSEA 05/02/2017 LAYTON HERNANDEZ MD Ot R51 HEADACHE 05/02/2017 LAYTON HERNANDEZ MD, Ot Z79.84 STUDY MANAGER (CURRENT) USE OF ORAL HYPOGLYC 05/02/2017 LAYTON HERNANDEZ MD Ot Z87.2 PERSONAL HISTORY OF DISEASES OF THE SKIN 05/02/2017 LAYTON HERNANDEZ MD, Ot Z87.891 PERSONAL HISTORY OF NICOTINE DEPENDENCE 05/02/2017 LAYTON HERNANDEZ MD Ot 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 05/02/2017 LAYTON HERNANDEZ MD Ot Z98.890 OTHER SPECIFIED POSTPROCEDURAL STATES 05/02/2017 [...] HEADACHE 05/02/2017 LAYTON HERNANDEZ MD Ot Z79.84 STUDY MANAGER (CURRENT) USE OF ORAL HYPOGLYC 05/02/2017 LAYTON [...] HYPERCHOLESTEROLEMIA, UNSPECIFIED 05/07/2017 JANELLE ESPITIA APRN Ot F31 .9 BIPOLAR DISORDER, UNSPECIFIED 05/07/2017 JANELLE ESPITIA APRN Ot F41 .9 ANXIETY DISORDER, UNSPECIFIED 05/07/2017 JANELLE ESPITIA APRN Ot G47.30 SLEEP APNEA, UNSPECIFIED 05/07/2017 JANELLE ESPITIA APRN Ot J44 .9 CHRONIC OBSTRUCTIVE PULMONARY DISEASE, U 05/07/2017 JANELLE ESPITIA APRN Ot K21 .9 GASTRO-ESOPHAGEAL REFLUX DISEASE WITHOUT 05/07/2017 JANELLE ESPITIA APRN Ot M79.602 PAIN IN LEFT ARM 05/07/2017 JANELLE ESPITIA APRN Ot S40.022A CONTUSION OF LEFT UPPER ARM, INITIAL ENC 05/07/2017 JANELLE ESPITIA APRN Ot W17.89XA OTHER FALL FROM ONE LEVEL TO ANOTHER, IN 05/07/2017 JAENLLE ESPITIA APRN Ot Y92.[address] IN [facility] 05/07/2017 JANELLE ESIPTIA APRN Ot Z79.84 LONGTERM (CURRENT) USE OF ORAL HYPOGLYC 05/07/2017 JANELLE [...] HYPERCHOLESTEROLEMIA, UNSPECIFIED 05/09/2017 JANELLE ESPITIA APRN Ot F31 .9 BIPOLAR DISORDER, UNSPECIFIED 05/09/2017 JANELLE ESPITIA APRN Ot F41 .9 ANXIETY DISORDER, UNSPECIFIED 05/09/2017 JANELLE ESPITIA APRN Ot G47.30 SLEEP APNEA, UNSPECIFIED 05/09/2017 JANELLE ESPITIA APRN Ot J44 .9 CHRONIC OBSTRUCTIVE PULMONARY DISEASE, U 05/09/2017 JANELLE ESPITIA APRN Ot K21 .9 GASTRO-ESOPHAGEAL REFLUX DISEASE WITHOUT 05/09/2017 JANELLE ESPITIA APRN Ot M79.602 PAIN IN LEFT ARM 05/09/2017 JANELLE ESPITIA APRN Ot S40.022A CONTUSION OF LEFT UPPER ARM, INITIAL ENC 05/09/2017 JANELLE ESPITIA APRN Ot W17.89XA OTHER FALL FROM ONE LEVEL TO ANOTHER, IN 05/09/2017 JANELLE ESPITIA APRN Ot Y92.[address] [facility] 05/09/2017 JANELLE ESPITIA APRN Ot Z79.84 LONGTERM (CURRENT) USE OF ORAL HYPOGLYC 05/09/2017 JANELLE [...] R06.02 SHORTNESS OF BREATH 05/28/2017 MAJOR GIPSON CUSTOMER RELATIONSHIP SPECIALIST Ot M79.604 PAIN IN RIGHT LEG 05/28/2017 MAJOR GIPSON CUSTOMER RELATIONSHIP SPECIALIST Ot M79.605 PAIN IN LEFT LEG 05/28/2017 MAJOR GIPSON APRN Ot R06.00 DYSPNEA, UNSPECIFIED 05/28/2017 MAOJR GIPSON CUSTOMER RELATIONSHIP SPECIALIST Ot R22.43 LOCALIZED SWELLING, MASS AND LUMP, LOWER 06/05/2017 MAJOR GIPSON CUSTOMER RELATIONSHIP SPECIALIST Ot R06.02 SHORTNESS OF BREATH 06/06/2017 MAJOR GIPSON CUSTOMER RELATIONSHIP SPECIALIST Ot M79.604 PAIN IN RIGHT LEG 06/06/2017 MAJOR GIPSON CUSTOMER RELATIONSHIP SPECIALIST Ot M79.605 PAIN IN LEFT LEG 06/06/2017 MAJOR GIPSON APRN Ot R06.00 DYSPNEA, UNSPECIFIED 06/06/2017 MAJOR GIPSON CUSTOMER RELATIONSHIP SPECIALIST Ot R22.43 LOCALIZED SWELLING, MASS AND LUMP, LOWER 06/20/2017 DONNA CULLEN, NICKY Lawrence Ot Z12.3 1 ENCNTR SCREEN MAMMOGRAM FOR MALIGNANT NE 06/27/2017 DONNA CULLEN, NICKY Lawrence Ot Z12.3 1 ENCNTR SCREEN MAMMOGRAM FOR MALIGNANT NE 08/10/2017 JANELLE ESPITIA APRN Ot E78.00 PURE HYPERCHOLESTEROLEMIA, UNSPECIFIED 08/10/2017 JANELLE ESPITIA APRN Ot F31 .9 BIPOLAR DISORDER, UNSPECIFIED 08/10/2017 JANELLE ESPITIA APRN Ot F41 .9 ANXIETY DISORDER, UNSPECIFIED 08/10/2017 JANELLE ESPITIA APRN Ot G47.30 SLEEP APNEA, UNSPECIFIED 08/10/2017 JANELLE ESPITIA APRN Ot J44 .9 CHRONIC OBSTRUCTIVE PULMONARY DISEASE, U 08/10/2017 JANELLE ESPITIA CUSTOMER RELATIONSHIP SPECIALIST Ot K21 .9 GASTRO-ESOPHAGEAL REFLUX DISEASE WITHOUT 08/10/2017 JANELLE ESPITIA CUSTOMER RELATIONSHIP SPECIALIST Ot R07 .9 CHEST PAIN, UNSPECIFIED 08/10/2017 JANELLE ESPITIA CUSTOMER RELATIONSHIP SPECIALIST Ot R53.81 OTHER MALAISE 08/10/2017 JANELLE ESPITIA CUSTOMER RELATIONSHIP SPECIALIST Ot Z79.84 LONGTERM (CURRENT) USE OF ORAL HYPOGLYC 08/10/2017 JANELLE SEPITIA CUSTOMER RELATIONSHIP SPECIALIST Ot Z87.19 PERSONAL HISTORY OF OTHER DISEASES OF TH 08/10/2017 JANELLE ESPITIA CUSTOMER RELATIONSHIP SPECIALIST Ot Z87.448 PERSONAL HISTORY OF OTHER DISEASES OF UR 08/10/2017 JANELLE ESPITIA CUSTOMER RELATIONSHIP SPECIALIST Ot Z87.891 PERSONAL HISTORY OF NICOTINE DEPENDENCE 08/10/2017 JANELLE ESPITIA APRN Ot 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 09/13/2017 REBEKA OLIVA INDUSTRIAL TRUCK MECHANIC Ot E11.9 TYPE 2 DIABETES MELLITUS WITHOUT COMPLIC 09/13/2017 REBEKA, OLIVA INDUSTRIAL TRUCK MECHANIC Ot E78.00 PURE HYPERCHOLESTEROLEMIA, UNSPECIFIED 09/13/2017 REBEKA, OLIVA INDUSTRIAL TRUCK MECHANIC Ot F31.9 BIPOLAR DISORDER, UNSPECIFIED 09/13/2017 REBEKA, OLIVA INDUSTRIAL TRUCK MECHANIC Ot F41.9 ANXIETY DISORDER, UNSPECIFIED 09/13/2017 REBEKA, OLIVA INDUSTRIAL TRUCK MECHANIC Ot G47.30 SLEEP APNEA, UNSPECIFIED 09/13/2017 REBEKA, OLIVA INDUSTRIAL TRUCK MECHANIC Ot J02.9 ACUTE PHARYNGITIS, UNSPECIFIED 09/13/2017 REBEKA, OLIVA INDUSTRIAL TRUCK MECHANIC Ot J06.9 ACUTE UPPER RESPIRATORY INFECTION, UNSPE 09/13/2017 REBEKA, OLIVA INDUSTRIAL TRUCK MECHANIC Ot J44.9 CHRONIC OBSTRUCTIVE PULMONARY DISEASE, U 09/13/2017 REBEKA OLIVA INDUSTRIAL TRUCK MECHANIC Ot K21.9 GASTRO-ESOPHAGEAL REFLUX DISEASE WITHOUT 09/13/2017 REBEKA, OLIVA INDUSTRIAL TRUCK MECHANIC Ot Z87.891 PERSONAL HISTORY OF NICOTINE DEPENDENCE 09/13/2017 REBEKA, OLIVA INDUSTRIAL TRUCK MECHANIC Ot 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 09/15/2017 REBEKA, OLIVA INDUSTRIAL TRUCK MECHANIC Ot E11.9 TYPE 2 DIABETES MELLITUS WITHOUT COMPLIC 09/15/2017 REBEKA, OLIVA INDUSTRIAL TRUCK MECHANIC Ot E78.00 PURE HYPERCHOLESTEROLEMIA, UNSPECIFIED 09/15/2017 REBEKA, OLIVA INDUSTRIAL TRUCK MECHANIC Ot F31.9 BIPOLAR DISORDER, UNSPECIFIED 09/15/2017 REBEKA, OLIVA INDUSTRIAL TRUCK MECHANIC Ot F41.9 ANXIETY DISORDER, UNSPECIFIED 09/15/2017 REBEKA, OLIVA INDUSTRIAL TRUCK MECHANIC Ot G47.30 SLEEP APNEA, UNSPECIFIED 09/15/2017 REBEKAOLIVA INDUSTRIAL TRUCK MECHANIC Ot J02.9 ACUTE PHARYNGITIS, UNSPECIFIED 09/15/2017 REBEKAOLIVA INDUSTRIAL TRUCK MECHANIC Ot J06.9 ACUTE UPPER RESPIRATORY INFECTION, UNSPE 09/15/2017 OLIVA STALEYP Ot J44.9 CHRONIC OBSTRUCTIVE PULMONARY DISEASE, U 09/15/2017 REBEKAOLIVA Gallegos INDUSTRIAL TRUCK MECHANIC Ot K21.9 GASTRO-ESOPHAGEAL REFLUX DISEASE WITHOUT 09/15/2017 REBEKAOLIVA INDUSTRIAL TRUCK MECHANIC Ot Z87.891 PERSONAL HISTORY OF NICOTINE DEPENDENCE 09/15/2017 REBEKAOLIVA INDUSTRIAL TRUCK MECHANIC Ot 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 11/11/2017 DONNA CULLEN, NICKY Lawrence Ot N64.4 MASTODYNIA 11/12/2017 NICKY THOMPSON MD Ot N63.2 3 UNSPECIFIED LUMP IN THE LEFT BREAST, LOW 11/20/2017 KISHA BALDWIN MD Ot M94.261 CHONDROMALACIA, RIGHT KNEE 11/20/2017 KISHA BALDWIN MD Ot Z01.818 ENCOUNTER [...] OTHER DYSPHAGIA 11/20/2017 KISHA CARRILLO MD Ot R49 .0 DYSPHONIA 11/20/2017 KISHA CARRILLO MD Ot R13.10 DYSPHAGIA, UNSPECIFIED 11/20/2017 EDI FAUSTIN DO Ot R07.81 PLEURODYNIA 11/20/2017 MAJOR GIPSON APRN Ot J30.9 ALLERGIC RHINITIS, UNSPECIFIED 11/20/2017 MAJOR GIPSON APRN Ot R06.02 SHORTNESS OF BREATH 11/20/2017 TRINITY LOU ZAHIRA Kramer Ot E66. 01 MORBID (SEVERE) OBESITY DUE TO EXCESS CA 11/20/2017 TRINITY LOU ZAHIRA M Ot J30. 9 ALLERGIC RHINITIS, UNSPECIFIED 11/20/2017 TRINITY LOU ZAHIRA M Ot R06. 02 SHORTNESS OF BREATH 11/20/2017 TRINITY LOU ZAHIRA M Ot E66. 01 MORBID (SEVERE) OBESITY DUE TO EXCESS CA 11/20/2017 TRINITY LOU ZAHIRA M Ot J30. 9 ALLERGIC RHINITIS, UNSPECIFIED 11/20/2017 TRINITY LOU ZAHIRA Kramer Ot R06. 02 SHORTNESS OF BREATH 11/20/2017 TRINITY LOU ZAHIRA M Ot R91. 1 SOLITARY PULMONARY NODULE 11/20/2017 ZURIBJDAYLIN EDI LOU Ot N64.4 MASTODYNIA 11/20/2017 TRINITY LOU ZAHIRA Kramer Ot E66. 01 MORBID (SEVERE) OBESITY DUE TO EXCESS CA 11/20/2017 TRINITY LOU ZAHIRA M Ot J30. 9 ALLERGIC RHINITIS, UNSPECIFIED 11/20/2017 TRINITY LOU ZAHIRA M Ot R06. 02 SHORTNESS OF BREATH 11/20/2017 RAMIN EDI LOU Ot R10.12 LEFT UPPER QUADRANT PAIN 11/20/2017 RAMIN EDI LOU Ot R10.11 RIGHT UPPER QUADRANT PAIN 11/20/2017 DONNA CULLEN, NICKY Lawrence Ot E11.6 5 TYPE 2 DIABETES MELLITUS WITH HYPERGLYCE 11/20/2017 DONNA CULLEN, NICKY Lawrence Ot R10.1 1 RIGHT UPPER QUADRANT PAIN 11/20/2017 KYLAH CULLEN, PATRIC Saucedo Ot R10.31 RIGHT LOWER QUADRANT PAIN 11/20/2017 CECELIA CULLEN, Nia WILSON Ot E11 .9 TYPE 2 DIABETES MELLITUS WITHOUT COMPLIC 11/20/2017 CECELIA CULLEN, Nia WILSON Ot E78 .5 HYPERLIPIDEMIA, UNSPECIFIED 11/20/2017 CECELIA CULLEN, Nia WILOSN Ot J44 .9 CHRONIC OBSTRUCTIVE PULMONARY DISEASE, U 11/20/2017 CECELIA CULLEN, Nia WILSON Ot R07 .9 CHEST PAIN, UNSPECIFIED 11/20/2017 CECELIA CULLEN, Nia WILSON Ot E11 .9 TYPE 2 DIABETES MELLITUS WITHOUT COMPLIC 11/20/2017 CECELIA CULLEN, Nia WILSON Ot E78 .5 HYPERLIPIDEMIA, UNSPECIFIED 11/20/2017 CECELIA CULLEN, Nia WILSON Ot J44 .9 CHRONIC OBSTRUCTIVE PULMONARY DISEASE, U 11/20/2017 CECELIA CULLEN, Nia WILSON Ot R07 .9 CHEST PAIN, UNSPECIFIED 11/20/2017 MAJOR GIPSON APRN Ot R06.02 SHORTNESS OF BREATH 11/20/2017 MAJOR GIPSON APRN Ot M79.604 PAIN IN RIGHT LEG 11/20/2017 MAJOR GIPSON APRN Ot M79.605 PAIN IN LEFT LEG 11/20/2017 MAJOR GIPSON APRN Ot R06.00 DYSPNEA, UNSPECIFIED 11/20/2017 MAJOR GIPSON APRN Ot R22.43 LOCALIZED SWELLING, MASS AND LUMP, LOWER 11/20/2017 NIKCY THOMPSON MD, Ot Z12.3 1 ENCNTR SCREEN MAMMOGRAM FOR MALIGNANT NE 11/20/2017 NICKY THOMPSON MD Ot N63.2 3 UNSPECIFIED LUMP IN THE LEFT BREAST, LOW [...] DISORDER, UNSPECIFIED 11/26/2017 KISHA BALDWIN MD, Ot G3 5 MULTIPLE SCLEROSIS 11/26/2017 KISHA BALDWIN MD, Ot G47.33 OBSTRUCTIVE SLEEP APNEA (ADULT) (PEDIATR 11/26/2017 KISHA BALDWIN MD, Ot I1 0 ESSENTIAL (PRIMARY) HYPERTENSION 11/26/2017 ZAFUTA MD, KISHA P Ot I20.9 ANGINA PECTORIS, UNSPECIFIED 11/26/2017 KISHA [...] ADULT 11/26/2017 KISHA BALDWIN MD, Ot Z79.84 LONGTERM (CURRENT) USE OF ORAL HYPOGLYC 11/26/2017 KISHA BALDWIN MD, Ot Z79.899 OTHER LONGTERM (CURRENT) DRUG THERAPY 11/26/2017 KISHA BALDWIN MD, Ot Z87.891 PERSONAL HISTORY OF NICOTINE DEPENDENCE 11/27/2017 KISHA BALDWIN MD, Ot E11.40 TYPE 2 DIABETES MELLITUS WITH DIABETIC N 11/27/2017 KISHA BALDWIN MD, Ot E66.01 MORBID (SEVERE) OBESITY DUE TO EXCESS CA 11/27/2017 KISHA BALDWIN MD, Ot E78.5 HYPERLIPIDEMIA, UNSPECIFIED 11/27/2017 KISHA BALDWIN MD, Ot F31.9 BIPOLAR DISORDER, UNSPECIFIED 11/27/2017 KISHA BALDWIN MD Ot G3 5 MULTIPLE SCLEROSIS 11/27/2017 KISHA BALWDIN MD, Ot G47.33 OBSTRUCTIVE SLEEP APNEA (ADULT) (PEDIATR 11/27/2017 KISHA BALDWIN MD Ot I1 0 ESSENTIAL (PRIMARY) HYPERTENSION 11/27/2017 KISHA BALDWIN MD, Ot I20.9 ANGINA PECTORIS, UNSPECIFIED 11/27/2017 KISHA BALDWIN MD, Ot J44.9 CHRONIC OBSTRUCTIVE PULMONARY DISEASE, U 11/27/2017 KISHA BALDWIN MD, Ot K21.9 GASTRO-ESOPHAGEAL REFLUX DISEASE WITHOUT 11/27/2017 KISHA BALDWIN MD, Ot M22.41 CHONDROMALACIA PATELLAE, RIGHT KNEE 11/27/2017 KISHA BALDWIN MD, Ot M32.9 SYSTEMIC LUPUS ERYTHEMATOSUS, UNSPECIFIE 11/27/2017 KISHA BALDWIN MD, Ot M79.7 FIBROMYALGIA 11/27/2017 KISHA BALDWIN MD, Ot Z11.2 ENCOUNTER FOR SCREENING FOR OTHER BACTER 11/27/2017 KISHA BALDWIN MD, Ot Z68.41 BODY MASS INDEX (BMI) 40.0-44.9, ADULT 11/27/2017 KISHA BALDWIN MD, Ot Z79.84 STUDY MANAGER (CURRENT) USE OF ORAL HYPOGLYC 11/27/2017 KISHA BALDWIN MD, Ot Z79.899 OTHER LONGTERM (CURRENT) DRUG THERAPY 11/27/2017 KISHA BALDWIN MD, Ot Z87.891 PERSONAL HISTORY OF NICOTINE DEPENDENCE 12/02/2017 DONNA CULLEN, NICKY Lawrence Ot N63.2 3 UNSPECIFIED LUMP IN THE LEFT BREAST, LOW 12/05/2017 JANELLE ESPITIA APRN Ot E11 .9 TYPE 2 DIABETES MELLITUS WITHOUT COMPLIC 12/05/2017 JANELLE ESPITIA APRN Ot E78.00 PURE HYPERCHOLESTEROLEMIA, UNSPECIFIED 12/05/2017 JANELLE ESPITIA APRN Ot F32 .9 MAJOR DEPRESSIVE DISORDER, SINGLE EPISOD 12/05/2017 JANELLE ESPITIA APRN Ot F41 .9 ANXIETY DISORDER, UNSPECIFIED 12/05/2017 JANELLE ESPITIA APRN Ot G25.81 RESTLESS LEGS SYNDROME 12/05/2017 JANELLE ESPITIA APRN Ot G47.30 SLEEP APNEA, UNSPECIFIED 12/05/2017 JANELLE ESPITIA APRN, Ot J44 .9 CHRONIC OBSTRUCTIVE PULMONARY DISEASE, U 12/05/2017 JANELLE ESPITIA APRN Ot K21 .9 GASTRO-ESOPHAGEAL REFLUX DISEASE WITHOUT 12/05/2017 JANELLE ESPITIA APRN Ot N39 .0 URINARY TRACT INFECTION, SITE NOT SPECIF 12/05/2017 JANELLE ESPITIA APRN Ot R05 COUGH 12/05/2017 JANELLE ESPITIA APRN Ot R07.81 PLEURODYNIA 12/05/2017 JANELLE ESPITIA APRN Ot Z79.84 LONGTERM (CURRENT) USE OF ORAL HYPOGLYC 12/05/2017 JANELLE ESPITIA APRN Ot Z87.19 PERSONAL HISTORY OF OTHER DISEASES OF TH 12/05/2017 JANELLE ESPITIA APRN Ot Z87.891 PERSONAL HISTORY OF NICOTINE DEPENDENCE 12/05/2017 JANELLE ESPITIA APRN Ot Z88 .0 ALLERGY STATUS TO PENICILLIN 12/05/2017 JANELLE ESPITIA APRN Ot Z88 .8 ALLERGY STATUS TO OTH DRUG/MEDS/BIOL SUB 12/05/2017 JANELLE ESPITIA APRN Ot Z90.710 ACQUIRED ABSENCE OF BOTH CERVIX AND UTER 12/05/2017 JANELLE ESPITIA APRN Ot Z91.041 RADIOGRAPHIC DYE ALLERGY STATUS 12/06/2017 ZAHIRA PETERSEN DO Ot E66. 01 MORBID (SEVERE) OBESITY DUE TO EXCESS CA 12/06/2017 ZAHIRA PETERSEN DO Ot J30. 9 ALLERGIC RHINITIS, UNSPECIFIED 12/06/2017 ZAHIRA PETERSEN DO Ot R06. 02 SHORTNESS OF BREATH 12/08/2017 JANELLE ESPITIA APRN Ot E11 .9 TYPE 2 DIABETES MELLITUS WITHOUT COMPLIC 12/08/2017 JANELLE ESPITIA APRN Ot E78.00 PURE HYPERCHOLESTEROLEMIA, UNSPECIFIED 12/08/2017 JANELLE ESPITIA APRN Ot F32 .9 MAJOR DEPRESSIVE DISORDER, SINGLE EPISOD 12/08/2017 JANELLE ESPITIA APRN Ot F41 .9 ANXIETY DISORDER, UNSPECIFIED 12/08/2017 JANELLE ESPITIA APRN Ot G25.81 RESTLESS LEGS SYNDROME 12/08/2017 JANELLE ESPITIA APRN Ot G47.30 SLEEP APNEA, UNSPECIFIED 12/08/2017 JANELLE ESPITIA APRN Ot J44 .9 CHRONIC OBSTRUCTIVE PULMONARY DISEASE, U 12/08/2017 JANELLE ESPITIA APRN Ot K21 .9 GASTRO-ESOPHAGEAL REFLUX DISEASE WITHOUT 12/08/2017 JANELLE ESPITIA APRN Ot N39 .0 URINARY TRACT INFECTION, SITE NOT SPECIF 12/08/2017 JANELLE ESPITIA APRN Ot R05 COUGH 12/08/2017 JANELLE ESPITIA APRN Ot R07.81 PLEURODYNIA 12/08/2017 JANELLE ESPITIA APRN Ot Z79.84 STUDY MANAGER (CURRENT) USE OF ORAL HYPOGLYC 12/08/2017 JANELLE ESPITIA APRN Ot Z87.19 PERSONAL HISTORY OF OTHER DISEASES OF TH 12/08/2017 JANELLE ESPITIA APRN Ot Z87.891 PERSONAL HISTORY OF NICOTINE DEPENDENCE 12/08/2017 JANELLE ESPITIA APRN Ot Z88 .0 ALLERGY STATUS TO PENICILLIN 12/08/2017 JANELLE ESPITIA APRN Ot Z88 .8 ALLERGY STATUS TO OTH DRUG/MEDS/BIOL SUB 12/08/2017 JANELLE ESPITIA APRN Ot Z90.710 ACQUIRED ABSENCE OF BOTH CERVIX AND UTER 12/08/2017 JANELLE ESPITIA APRN Ot Z91.041 RADIOGRAPHIC DYE ALLERGY STATUS 12/11/2017 JANELLE ESPITIA APRN Ot E11 .9 TYPE 2 DIABETES MELLITUS WITHOUT COMPLIC 12/11/2017 JANELLE ESPITIA APRN Ot E78.00 PURE HYPERCHOLESTEROLEMIA, UNSPECIFIED 12/11/2017 JANELLE ESPITIA APRN Ot F32 .9 MAJOR DEPRESSIVE DISORDER, SINGLE EPISOD 12/11/2017 JANELLE ESPITIA APRN Ot F41 .9 ANXIETY DISORDER, UNSPECIFIED 12/11/2017 JANELLE ESPITIA APRN Ot G25.81 RESTLESS LEGS SYNDROME 12/11/2017 JANELLE ESPITIA APRN Ot G47.30 SLEEP APNEA, UNSPECIFIED 12/11/2017 JANELLE ESPITIA APRN Ot J44 .9 CHRONIC OBSTRUCTIVE PULMONARY DISEASE, U 12/11/2017 JANELLE ESPITIA APRN Ot K21 .9 GASTRO-ESOPHAGEAL REFLUX DISEASE WITHOUT 12/11/2017 JANELLE ESPITIA APRN Ot N39 .0 URINARY TRACT INFECTION, SITE NOT SPECIF 12/11/2017 JANELLE ESPITIA APRN Ot R05 COUGH 12/11/2017 JANELLE ESPITIA APRN Ot R07.81 PLEURODYNIA 12/11/2017 JANELLE ESPITIA APRN Ot Z79.84 LONGTERM (CURRENT) USE OF ORAL HYPOGLYC 12/11/2017 JANELLE ESPITIA APRN Ot Z87.19 PERSONAL HISTORY OF OTHER DISEASES OF TH 12/11/2017 JANELLE ESPITIA APRN Ot Z87.891 PERSONAL HISTORY OF NICOTINE DEPENDENCE 12/11/2017 JANELLE ESPITIA APRN Ot Z88 .0 ALLERGY STATUS TO PENICILLIN 12/11/2017 JANELLE ESPITIA APRN Ot Z88 .8 ALLERGY STATUS TO OTH DRUG/MEDS/BIOL SUB 12/11/2017 JANELLE ESPITIA APRN Ot Z90.710 ACQUIRED ABSENCE OF BOTH CERVIX AND UTER 12/11/2017 JANELLE ESPITIA APRN Ot Z91.041 RADIOGRAPHIC DYE ALLERGY STATUS 12/11/2017 DONNA CULLEN, NICKY Lawrence Ot N63.2 3 UNSPECIFIED LUMP IN THE LEFT BREAST, LOW 04/01/2018 JOHANNY DO, MURALI K Ot E11.9 TYPE 2 DIABETES MELLITUS WITHOUT COMPLIC 04/01/2018 JOHANNY DO, MURALI K Ot E66.9 OBESITY, UNSPECIFIED 04/01/2018 JOAHNNY DO, MURALI K Ot E78.00 PURE HYPERCHOLESTEROLEMIA, UNSPECIFIED 04/01/2018 JOHANNY DO, MURALI K Ot F31.9 BIPOLAR DISORDER, UNSPECIFIED 04/01/2018 JOHANNY DO, MURALI K Ot F41.9 ANXIETY DISORDER, UNSPECIFIED 04/01/2018 JOHANNY DO MURALI K Ot G25.81 RESTLESS LEGS SYNDROME 04/01/2018 JOHANNY DO MURALI K Ot G47.30 SLEEP APNEA, UNSPECIFIED 04/01/2018 JOHANNY DO MURALI K Ot J44.9 CHRONIC OBSTRUCTIVE PULMONARY DISEASE, U 04/01/2018 JOHANNY DO MURALI K Ot K21.9 GASTRO-ESOPHAGEAL REFLUX DISEASE WITHOUT 04/01/2018 JOHANNY DO MURALI K Ot N39.0 URINARY TRACT INFECTION, SITE NOT SPECIF 04/01/2018 JOHANNY DO MURALI K Ot R10.31 RIGHT LOWER QUADRANT PAIN 04/01/2018 JOHANNY LOU MURALI K Ot Z79.51 LONGTERM (CURRENT) USE OF INHALED STERO 04/01/2018 JOHANNY LOU MURALI K Ot Z87.891 PERSONAL HISTORY OF NICOTINE DEPENDENCE 04/01/2018 JOHANNY LOU MURALI K Ot Z88.0 ALLERGY STATUS TO PENICILLIN 04/01/2018 JOHANNY LOU MURALI K Ot Z88.6 ALLERGY STATUS TO ANALGESIC AGENT STATUS 04/01/2018 JOHANNY DO MURALI K Ot Z90.710 ACQUIRED ABSENCE OF BOTH CERVIX AND UTER 04/01/2018 JOHANNY DO MURALI K Ot Z91.041 RADIOGRAPHIC DYE ALLERGY STATUS 04/02/2018 JOHANNY DO MURALI K Ot E11.9 TYPE 2 DIABETES MELLITUS WITHOUT COMPLIC 04/02/2018 JOHANNY DO MURALI K Ot E66.9 OBESITY, UNSPECIFIED 04/02/2018 JOHANNY DO, MURALI K Ot E78.00 PURE HYPERCHOLESTEROLEMIA, UNSPECIFIED 04/02/2018 JOHANNY DO MURALI K Ot F31.9 BIPOLAR DISORDER, UNSPECIFIED 04/02/2018 JOHANNY LOU MURALI Brady Ot F41.9 ANXIETY DISORDER, UNSPECIFIED 04/02/2018 JOHANNY LOU MURALI Brady Ot G25.81 RESTLESS LEGS SYNDROME 04/02/2018 JOHANNY LOU MURALI Brady Ot G47.30 SLEEP APNEA, UNSPECIFIED 04/02/2018 JOHANNY LOU MURALI Jose Antonio Ot J44.9 CHRONIC OBSTRUCTIVE PULMONARY DISEASE, U 04/02/2018 JOHANNY LOU MURALI Jose Antonio Ot K21.9 GASTRO-ESOPHAGEAL REFLUX DISEASE WITHOUT 04/02/2018 JOHANNY LOU MURALI Jose Antonio Ot N39.0 URINARY TRACT INFECTION, SITE NOT SPECIF 04/02/2018 JOHANNY LOU MURALI Jose Antonio Ot R10.31 RIGHT LOWER QUADRANT PAIN 04/02/2018 JOHANNY LOU MURALI Jose Antonio Ot Z79.51 LONGTERM (CURRENT) USE OF INHALED STERO 04/02/2018 JOHNANY LOU MURALI Jose Antonio Ot Z87.891 PERSONAL HISTORY OF NICOTINE DEPENDENCE 04/02/2018 JOHANNY MURALI Jose Antonio Ot Z88.0 ALLERGY STATUS TO PENICILLIN 04/02/2018 JOHANNY LOU MURALI Jose Antonio Ot Z88.6 ALLERGY STATUS TO ANALGESIC AGENT STATUS 04/02/2018 JOHANNY LOU MURALI Jose Antonio Ot Z90.710 ACQUIRED ABSENCE OF BOTH CERVIX AND UTER 04/02/2018 JOHANNY LOU MURALI Jose Antonio Ot Z91.041 RADIOGRAPHIC DYE ALLERGY STATUS 04/13/2018 ZAHIRA PETERSEN DO Ot E66. 01 MORBID (SEVERE) OBESITY DUE TO EXCESS CA 04/13/2018 ZAHIRA PETERSEN DO Ot J30. 9 ALLERGIC RHINITIS, UNSPECIFIED 04/13/2018 ZAHIRA PETERSEN DO Ot R06. 02 SHORTNESS OF BREATH 04/13/2018 SAIRA CULLEN, VICTORIA [...] BRONCHITIS, NOT SPECIFIED ACUTE OR CH 04/16/2018 NICOLASA CULLEN, KISHA Justice Ot M75.102 UNSP ROTATR-CUFF TEAR/RUPTR OF LEFT SHOU 04/16/2018 NICOLASA CULLEN, KISHA Justice Ot Z01.818 ENCOUNTER FOR OTHER PREPROCEDURAL EXAMIN 04/16/2018 KISHA BALDWIN MD Ot Z11.2 ENCOUNTER FOR SCREENING FOR OTHER BACTER 04/16/2018 KISHA CARRILLO MD Ot R13.19 OTHER DYSPHAGIA 04/16/2018 KISHA CARRILLO MD Ot R49 .0 DYSPHONIA 04/16/2018 KISHA CARRILLO MD Ot R13.10 DYSPHAGIA, UNSPECIFIED 04/16/2018 EDI FAUSTIN DO Ot R07.81 PLEURODYNIA 04/16/2018 MAJOR GIPSON APRN Ot J30.9 ALLERGIC RHINITIS, UNSPECIFIED 04/16/2018 MAJOR GIPSON APRN Ot R06.02 SHORTNESS OF BREATH 04/16/2018 ZAHIRA PETERSEN DO Ot E66. 01 MORBID (SEVERE) OBESITY DUE TO EXCESS CA 04/16/2018 ZAHIRA PETERSEN DO Ot J30. 9 ALLERGIC RHINITIS, UNSPECIFIED 04/16/2018 ZAHIRA PETERSEN DO Ot R06. 02 SHORTNESS OF BREATH 04/16/2018 ZAHIRA PETERSEN DO Ot E66. 01 MORBID (SEVERE) OBESITY DUE TO EXCESS CA 04/16/2018 ZAHIRA PETERSEN DO Ot J30. 9 ALLERGIC RHINITIS, UNSPECIFIED 04/16/2018 ZAHIRA PETERSEN DO Ot R06. 02 SHORTNESS OF BREATH 04/16/2018 ZAHIRA PETERSEN DO Ot R91. 1 SOLITARY PULMONARY NODULE 04/16/2018 EDI FAUSTIN DO Ot N64.4 MASTODYNIA 04/16/2018 ZAHIRA PETERSEN DO Ot E66. 01 MORBID (SEVERE) OBESITY DUE TO EXCESS CA 04/16/2018 ZAHIRA PETERSEN DO, Ot J30. 9 ALLERGIC RHINITIS, UNSPECIFIED 04/16/2018 ZAHIRA PETERSEN DO Ot R06. 02 SHORTNESS OF BREATH 04/16/2018 EDI FAUSTIN DO Ot R10.12 LEFT UPPER QUADRANT PAIN 04/16/2018 EDI FAUSTIN DO Ot R10.11 RIGHT UPPER QUADRANT PAIN 04/16/2018 DONNA CULLEN, NICKY Lawrence Ot E11.6 5 TYPE 2 DIABETES MELLITUS WITH HYPERGLYCE 04/16/2018 DONNA CULLEN, NICKY Lawrence Ot R10.1 1 RIGHT UPPER QUADRANT PAIN 04/16/2018 KYLAH CULLEN, PATRIC Saucedo Ot R10.31 RIGHT LOWER QUADRANT PAIN 04/16/2018 CECELIA CULLEN, M KATIE Ot E11 .9 TYPE 2 DIABETES MELLITUS WITHOUT COMPLIC 04/16/2018 CECELIA CULLEN, Nia WILSON Ot E78 .5 HYPERLIPIDEMIA, UNSPECIFIED 04/16/2018 CECELIA CULLEN, M KATIE Ot J44 .9 CHRONIC OBSTRUCTIVE PULMONARY DISEASE, U 04/16/2018 CECELIA CULLEN, M KATIE Ot R07 .9 CHEST PAIN, UNSPECIFIED 04/16/2018 CECELIA CULLEN, M KATIE Ot E11 .9 TYPE 2 DIABETES MELLITUS WITHOUT COMPLIC 04/16/2018 CECELIA CULLEN, M KATIE Ot E78 .5 HYPERLIPIDEMIA, UNSPECIFIED 04/16/2018 CECELIA CULLEN, M KATIE Ot J44 .9 CHRONIC OBSTRUCTIVE PULMONARY DISEASE, U 04/16/2018 CECELIA CULLEN, M KATIE Ot R07 .9 CHEST PAIN, UNSPECIFIED 04/16/2018 MAJOR GIPSON CUSTOMER RELATIONSHIP SPECIALIST Ot R06.02 SHORTNESS OF BREATH 04/16/2018 MAJOR GIPSON CUSTOMER RELATIONSHIP SPECIALIST Ot M79.604 PAIN IN RIGHT LEG 04/16/2018 MAJOR GIPSON CUSTOMER RELATIONSHIP SPECIALIST Ot M79.605 PAIN IN LEFT LEG 04/16/2018 MAJOR GIPSON CUSTOMER RELATIONSHIP SPECIALIST Ot R06.00 DYSPNEA, UNSPECIFIED 04/16/2018 MAJOR GIPSON CUSTOMER RELATIONSHIP SPECIALIST Ot R22.43 LOCALIZED SWELLING, MASS AND LUMP, LOWER 04/16/2018 DONNA CULLEN, NICKY Lawrence Ot Z12.3 1 ENCNTR SCREEN MAMMOGRAM FOR MALIGNANT NE 04/16/2018 NICKY THOMPSON MD Ot N63.2 3 UNSPECIFIED LUMP IN THE LEFT BREAST, LOW 04/20/2018 EDI FAUSTIN DO Ot Z12.31 ENCNTR SCREEN MAMMOGRAM FOR MALIGNANT NE 04/20/2018 NICOLASA CULLEN, KISHA Justice Ot M75.112 INCOMPLETE ROTATR-CUFF TEAR/RUPTR OF L S 04/20/2018 EDI FAUSTIN DO Ot J18.9 PNEUMONIA, UNSPECIFIED ORGANISM 04/20/2018 EDI FAUSTIN DO Ot J40 BRONCHITIS, NOT SPECIFIED ACUTE OR CH 04/20/2018 NICOLASA CULLEN, KISHA Justice Ot M75.102 UNSP ROTATR-CUFF TEAR/RUPTR OF LEFT SHOU 04/20/2018 NICOLASA CULLEN, KISHA Justice Ot Z01.818 ENCOUNTER FOR OTHER PREPROCEDURAL EXAMIN 04/20/2018 KISHA BALDWIN MD Ot Z11.2 ENCOUNTER FOR SCREENING FOR OTHER BACTER 04/20/2018 LORENA CULLEN, KISHA Justice Ot R13.19 OTHER DYSPHAGIA 04/20/2018 KISHA CARRILLO MD Ot R49 .0 DYSPHONIA 04/20/2018 KISHA CARRILLO MD Ot R13.10 DYSPHAGIA, UNSPECIFIED 04/20/2018 EDI FAUSTIN DO Ot R07.81 PLEURODYNIA 04/20/2018 MAJOR GIPSON APRN Ot J30.9 ALLERGIC RHINITIS, UNSPECIFIED 04/20/2018 MAJOR GIPSON APRN Ot R06.02 SHORTNESS OF BREATH 04/20/2018 ZAHIRA PETERSEN DO Ot E66. 01 MORBID (SEVERE) OBESITY DUE TO EXCESS CA 04/20/2018 ZAHIRA PETERSEN DO Ot J30. 9 ALLERGIC RHINITIS, UNSPECIFIED 04/20/2018 ZAHIRA PETERSEN DO Ot R06. 02 SHORTNESS OF BREATH 04/20/2018 ZAHIRA PETERSEN DO Ot E66. 01 MORBID (SEVERE) OBESITY DUE TO EXCESS CA 04/20/2018 ZAHIRA PETERSEN DO Ot J30. 9 ALLERGIC RHINITIS, UNSPECIFIED 04/20/2018 ZAHIRA PETERSEN DO Ot R06. 02 SHORTNESS OF BREATH 04/20/2018 ZAHIRA PETERSEN DO Ot R91. 1 SOLITARY PULMONARY NODULE 04/20/2018 EDI FAUSTIN DO Ot N64.4 MASTODYNIA 04/20/2018 ZAHIRA PETERSEN DO Ot E66. 01 MORBID (SEVERE) OBESITY DUE TO EXCESS CA 04/20/2018 ZAHIRA PETERSEN DO Ot J30. 9 ALLERGIC RHINITIS, UNSPECIFIED 04/20/2018 ZAHIRA PETERSEN DO Ot R06. 02 SHORTNESS OF BREATH 04/20/2018 GELLENDER DO, EDI A Ot R10.12 LEFT UPPER QUADRANT PAIN 04/20/2018 GELLENDER DO, EDI A Ot R10.11 RIGHT UPPER QUADRANT PAIN 04/20/2018 NICKY THOMPSON MD Ot E11.6 5 TYPE 2 DIABETES MELLITUS WITH HYPERGLYCE 04/20/2018 NICKY THOMPSON MD Ot R10.1 1 RIGHT UPPER QUADRANT PAIN 04/20/2018 KYLAH CULLEN, PATRIC Saucedo Ot R10.31 RIGHT LOWER QUADRANT PAIN 04/20/2018 CECELIA CULLEN, Nia WILSON Ot E11 .9 TYPE 2 DIABETES MELLITUS WITHOUT COMPLIC 04/20/2018 CECELIA CULLEN, Nia WILSON Ot E78 .5 HYPERLIPIDEMIA, UNSPECIFIED 04/20/2018 CECELIA CULLEN, Nia WILSON Ot J44 .9 CHRONIC OBSTRUCTIVE PULMONARY DISEASE, U 04/20/2018 CECELIA CULLEN, Nia WILSON Ot R07 .9 CHEST PAIN, UNSPECIFIED 04/20/2018 CECELIA CULLEN, Nia WILSON Ot E11 .9 TYPE 2 DIABETES MELLITUS WITHOUT COMPLIC 04/20/2018 CECELIA CULLEN, Nia WILSON Ot E78 .5 HYPERLIPIDEMIA, UNSPECIFIED 04/20/2018 CECELIA CULLEN, Nia WILSON Ot J44 .9 CHRONIC OBSTRUCTIVE PULMONARY DISEASE, U 04/20/2018 CECELIA CULLEN, Nia WILSON Ot R07 .9 CHEST PAIN, UNSPECIFIED 04/20/2018 MAJOR GIPSON APRN Ot R06.02 SHORTNESS OF BREATH 04/20/2018 MAJOR GIPSON CUSTOMER RELATIONSHIP SPECIALIST Ot M79.604 PAIN IN RIGHT LEG 04/20/2018 MAJOR GIPSON CUSTOMER RELATIONSHIP SPECIALIST Ot M79.605 PAIN IN LEFT LEG 04/20/2018 MAJOR GIPSON CUSTOMER RELATIONSHIP SPECIALIST Ot R06.00 DYSPNEA, UNSPECIFIED 04/20/2018 MAJOR GIPSON CUSTOMER RELATIONSHIP SPECIALIST Ot R22.43 LOCALIZED SWELLING, MASS AND LUMP, LOWER 04/20/2018 NICKY THOMPSON MD Ot Z12.3 1 ENCNTR SCREEN MAMMOGRAM FOR MALIGNANT NE 04/20/2018 NICKY THOMPSON MD Ot N63.2 3 UNSPECIFIED LUMP IN THE LEFT BREAST, LOW 04/20/2018 SAIRA CULLEN, VICTORIA Kramer Ot E11.9 TYPE 2 DIABETES MELLITUS WITHOUT COMPLIC 04/20/2018 SAIRA CULLEN, VICTORIA Kramer Ot E78.00 PURE HYPERCHOLESTEROLEMIA, UNSPECIFIED 04/20/2018 SAIRA CULLEN, VICTORIA Kramer Ot F31.9 BIPOLAR DISORDER, UNSPECIFIED 04/20/2018 SAIRA CULLEN, VICTORIA Kramer Ot F41.9 ANXIETY DISORDER, UNSPECIFIED 04/20/2018 VICTORIA CHÁVEZ MD Ot G25.81 RESTLESS LEGS SYNDROME 04/20/2018 VICTORIA CHÁVEZ MD, Ot K21.9 GASTRO-ESOPHAGEAL REFLUX DISEASE WITHOUT 04/20/2018 VICTORIA CHÁVEZ MD Ot K57.30 DVRTCLOS OF LG INT W/O PERFORATION OR AB 04/20/2018 VICTORIA CHÁVEZ MD Ot K59.09 OTHER CONSTIPATION 04/20/2018 VICTORIA CHÁVEZ MD Ot M79.1 MYALGIA 04/20/2018 VICTORIA CHÁVEZ MD Ot R93.3 ABNORMAL FINDINGS ON DX IMAGING OF PRT D 04/20/2018 VICTORIA CHÁVEZ MD Ot Z79.82 STUDY MANAGER (CURRENT) USE OF ASPIRIN 04/20/2018 VICTORIA CHÁVEZ MD Ot Z79.84 STUDY MANAGER (CURRENT) USE OF ORAL HYPOGLYC 04/20/2018 VICTORIA CHÁVEZ MD Ot Z79.899 OTHER LONGTERM (CURRENT) DRUG THERAPY 04/20/2018 VICTORIA CHÁVEZ MD Ot Z87.891 PERSONAL HISTORY OF NICOTINE DEPENDENCE 04/21/2018 VICTORIA CHÁVEZ MD Ot E11.9 TYPE 2 DIABETES MELLITUS WITHOUT COMPLIC 04/21/2018 VICTORIA CHÁVEZ MD Ot E78.00 PURE HYPERCHOLESTEROLEMIA, UNSPECIFIED 04/21/2018 SAIRA CULLEN, VICTORIA Kramer Ot F31.9 BIPOLAR DISORDER, UNSPECIFIED 04/21/2018 VICTORIA CHÁVEZ MD, Ot F41.9 ANXIETY DISORDER, UNSPECIFIED 04/21/2018 VICTORIA CHÁVEZ MD Ot G25.81 RESTLESS LEGS SYNDROME 04/21/2018 VICTORIA CHÁVEZ MD, Ot K21.9 GASTRO-ESOPHAGEAL REFLUX DISEASE WITHOUT 04/21/2018 VICTORIA CHÁVEZ MD Ot K57.30 DVRTCLOS OF LG INT W/O PERFORATION OR AB 04/21/2018 VICTORIA CHÁVEZ MD Ot K59.09 OTHER CONSTIPATION 04/21/2018 VICTORIA CHÁVEZ MD Ot M79.1 MYALGIA 04/21/2018 VICTORIA CHÁVEZ MD Ot R93.3 ABNORMAL FINDINGS ON DX IMAGING OF PRT D 04/21/2018 VICTORIA CHÁVEZ MD, Ot Z79.82 STUDY MANAGER (CURRENT) USE OF ASPIRIN 04/21/2018 VICTORIA CHÁVEZ MD Ot Z79.84 STUDY MANAGER (CURRENT) USE OF ORAL HYPOGLYC 04/21/2018 VICTORIA CHÁVEZ MD, Ot Z79.899 OTHER LONGTERM (CURRENT) DRUG THERAPY 04/21/2018 VICTORIA CHÁVEZ MD, Ot Z87.891 PERSONAL HISTORY OF NICOTINE DEPENDENCE 04/26/2018 VICTORIA CHÁVEZ MD Ot E11.9 TYPE 2 DIABETES MELLITUS WITHOUT COMPLIC 04/26/2018 VICTORIA CHÁVEZ MD Ot E78.00 PURE HYPERCHOLESTEROLEMIA, UNSPECIFIED 04/26/2018 VICTORIA CHÁVEZ MD, Ot F31.9 BIPOLAR DISORDER, UNSPECIFIED 04/26/2018 VICTORIA CHÁVEZ MD, Ot F41.9 ANXIETY DISORDER, UNSPECIFIED 04/26/2018 VICTORIA CHÁVEZ MD, Ot G25.81 RESTLESS LEGS SYNDROME 04/26/2018 VICTORIA CHÁVEZ MD, Ot K21.9 GASTRO-ESOPHAGEAL REFLUX DISEASE WITHOUT 04/26/2018 VICTORIA CHÁVEZ MD Ot K57.30 DVRTCLOS OF LG INT W/O PERFORATION OR AB 04/26/2018 VICTORIA CHÁVEZ MD Ot K59.09 OTHER CONSTIPATION 04/26/2018 VICTORIA CHÁVEZ MD, Ot M79.1 MYALGIA 04/26/2018 VICTORIA CHÁVEZ MD Ot R93.3 ABNORMAL FINDINGS ON DX IMAGING OF PRT D 04/26/2018 VICTORIA CHÁVEZ MD, Ot Z79.82 STUDY MANAGER (CURRENT) USE OF ASPIRIN 04/26/2018 VICTORIA CHÁVEZ MD, Ot Z79.84 LONGTERM (CURRENT) USE OF ORAL HYPOGLYC 04/26/2018 VICTORIA CHÁVEZ MD, Ot Z79.899 OTHER STUDY MANAGER (CURRENT) DRUG THERAPY 04/26/2018 VICTORIA CHÁVEZ MD, Ot Z87.891 PERSONAL HISTORY OF NICOTINE DEPENDENCE 04/30/2018 Ot M23.8X2 OT HER INTERNAL DERANGEMENTS OF LEFT KNEE 04/30/2018 Ot Z01.818 EN COUNTER FOR OTHER PREPROCEDURAL EXAMIN 05/06/2018 KISHA BALDWIN MD Ot E11.42 TYPE 2 DIABETES MELLITUS WITH DIABETIC P 05/06/2018 KISHA BALDWIN MD, Ot E66.01 MORBID (SEVERE) OBESITY DUE TO EXCESS CA 05/06/2018 KISHA BALDWIN MD, Ot G47.33 OBSTRUCTIVE SLEEP APNEA (ADULT) (PEDIATR 05/06/2018 KISHA BALDWIN MD Ot I20.9 ANGINA PECTORIS, UNSPECIFIED 05/06/2018 KISHA BALDWIN MD, Ot J44.9 CHRONIC OBSTRUCTIVE PULMONARY DISEASE, U 05/06/2018 KISHA BALDWIN MD, Ot J45.909 UNSPECIFIED ASTHMA, UNCOMPLICATED 05/06/2018 KISHA BALDWIN MD, Ot K21.9 GASTRO-ESOPHAGEAL REFLUX DISEASE WITHOUT 05/06/2018 KISHA BALDWIN MD, Ot M22.42 CHONDROMALACIA PATELLAE, LEFT KNEE 05/06/2018 KISHA BALDWIN MD, Ot Z68.41 BODY MASS INDEX (BMI) 40.0-44.9, ADULT 05/06/2018 KISHA BLADWIN MD Ot Z79.82 STUDY MANAGER (CURRENT) USE OF ASPIRIN 05/06/2018 KISHA BALDWIN MD, Ot Z79.84 STUDY MANAGER (CURRENT) USE OF ORAL HYPOGLYC 05/06/2018 KISHA BALDWIN MD, Ot Z87.891 PERSONAL HISTORY OF NICOTINE DEPENDENCE 07/09/2018 EDI FAUSTIN DO Ot Z12.31 ENCNTR SCREEN MAMMOGRAM FOR MALIGNANT NE 07/09/2018 KISHA BALDWIN MD Ot M75.112 INCOMPLETE ROTATR-CUFF TEAR/RUPTR OF L S 07/09/2018 EDI FAUSTIN DO Ot J18.9 PNEUMONIA, UNSPECIFIED ORGANISM 07/09/2018 EDI FAUSTIN DO Ot J40 BRONCHITIS, NOT SPECIFIED ACUTE OR CH 07/09/2018 KISHA BALDWIN MD Ot M75.102 UNSP ROTATR-CUFF TEAR/RUPTR OF LEFT SHOU 07/09/2018 KISAH BALDWIN MD Ot Z01.818 ENCOUNTER FOR OTHER PREPROCEDURAL EXAMIN 07/09/2018 KISHA BALDWIN MD Ot Z11.2 ENCOUNTER FOR SCREENING FOR OTHER BACTER 07/09/2018 KISHA CARRILLO MD Ot R13.19 OTHER DYSPHAGIA 07/09/2018 LORENA CULLEN, KISHA Justice Ot R49 .0 DYSPHONIA 07/09/2018 LORENA CULLEN, KISHA Justice Ot R13.10 DYSPHAGIA, UNSPECIFIED 07/09/2018 GELLENDER DO, EDI A Ot R07.81 PLEURODYNIA 07/09/2018 MAJOR GIPSON APRN Ot J30.9 ALLERGIC RHINITIS, UNSPECIFIED 07/09/2018 MAJOR GIPSON APRN Ot R06.02 SHORTNESS OF BREATH 07/09/2018 TRINITY DOZAHIRA Ot E66. 01 MORBID (SEVERE) OBESITY DUE TO EXCESS CA 07/09/2018 TRINITY DOZAHIRA Ot J30. 9 ALLERGIC RHINITIS, UNSPECIFIED 07/09/2018 TRINITY DOZAHIRA Ot R06. 02 SHORTNESS OF BREATH 07/09/2018 TRINITY DO ZAHIRA M Ot E66. 01 MORBID (SEVERE) OBESITY DUE TO EXCESS CA 07/09/2018 TRINITY DOZAHIRA M Ot J30. 9 ALLERGIC RHINITIS, UNSPECIFIED 07/09/2018 TRINITY DOZAHIRA Ot R06. 02 SHORTNESS OF BREATH 07/09/2018 ZAHIRA PETERSEN DO Ot R91. 1 SOLITARY PULMONARY NODULE 07/09/2018 GELLENDER DO, EDI Christianson Ot N64.4 MASTODYNIA 07/09/2018 TRINITY DOZAHIRA Ot E66. 01 MORBID (SEVERE) OBESITY DUE TO EXCESS CA 07/09/2018 TRINITY DOZAHIRA Ot J30. 9 ALLERGIC RHINITIS, UNSPECIFIED 07/09/2018 TRINITY DOZAHIRA Ot R06. 02 SHORTNESS OF BREATH 07/09/2018 GELLENDER DO, EDI A Ot R10.12 LEFT UPPER QUADRANT PAIN 07/09/2018 GELLENDER DO, EDI A Ot R10.11 RIGHT UPPER QUADRANT PAIN 07/09/2018 NICKY THOMPSON MD Ot E11.6 5 TYPE 2 DIABETES MELLITUS WITH HYPERGLYCE 07/09/2018 NICKY THOMPSON MD Ot R10.1 1 RIGHT UPPER QUADRANT PAIN 07/09/2018 KYLAH CULLEN, PATRIC Saucedo Ot R10.31 RIGHT LOWER QUADRANT PAIN 07/09/2018 CECELIA CULLEN, Nia WILSON Ot E11 .9 TYPE 2 DIABETES MELLITUS WITHOUT COMPLIC 07/09/2018 CECELIA CULLEN, Nia WILSON Ot E78 .5 HYPERLIPIDEMIA, UNSPECIFIED 07/09/2018 CECELIA CULLEN, Nia WILSON Ot J44 .9 CHRONIC OBSTRUCTIVE PULMONARY DISEASE, U 07/09/2018 CECELIA CULLEN, Nia WILSON Ot R07 .9 CHEST PAIN, UNSPECIFIED 07/09/2018 CECELIA CULLEN, Nia WILSON Ot E11 .9 TYPE 2 DIABETES MELLITUS WITHOUT COMPLIC 07/09/2018 CECELIA CULLEN, Nia WILSON Ot E78 .5 HYPERLIPIDEMIA, UNSPECIFIED 07/09/2018 CECELIA CULLEN, Nia WILSON Ot J44 .9 CHRONIC OBSTRUCTIVE PULMONARY DISEASE, U 07/09/2018 CECELIA CULLEN, Nia WILSON Ot R07 .9 CHEST PAIN, UNSPECIFIED 07/09/2018 MAJOR GIPSON APRN Ot R06.02 SHORTNESS OF BREATH 07/09/2018 MAJOR GIPSON APRN Ot M79.604 PAIN IN RIGHT LEG 07/09/2018 MAJOR GIPSON APRN Ot M79.605 PAIN IN LEFT LEG 07/09/2018 MAJOR GIPSON APRN Ot R06.00 DYSPNEA, UNSPECIFIED 07/09/2018 MAJOR GIPSON APRN Ot R22.43 LOCALIZED SWELLING, MASS AND LUMP, LOWER 07/09/2018 NICKY THOMPSON MD Ot Z12.3 1 ENCNTR SCREEN MAMMOGRAM FOR MALIGNANT NE 07/09/2018 NICKY THOMPSON MD Ot N63.2 3 UNSPECIFIED LUMP IN THE LEFT BREAST, LOW 07/09/2018 SLY HARRIS APRN Ot R10.11 RIGHT UPPER QUADRANT PAIN 07/09/2018 SLY HARRIS APRN Ot Z90.49 ACQUIRED ABSENCE OF OTHER SPECIFIED PART 07/09/2018 KISHA BALDWIN MD, Ot Z01.812 ENCOUNTER FOR PREPROCEDURAL LABORATORY E 07/09/2018 KISHA BALDWIN MD Ot M17.12 UNILATERAL PRIMARY OSTEOARTHRITIS, LEFT 07/09/2018 KISHA BALDWIN MD Ot R53.83 OTHER FATIGUE 07/09/2018 KISHA BALDWIN MD Ot R82.90 UNSPECIFIED ABNORMAL FINDINGS IN URINE 07/09/2018 KISHA BALDWIN MD, Ot Z01.812 ENCOUNTER FOR PREPROCEDURAL LABORATORY E 07/09/2018 KISHA BALDWIN MD Ot Z11.2 ENCOUNTER FOR SCREENING FOR OTHER BACTER 07/13/2018 KISHA BALDWIN MD Ot M17.12 UNILATERAL PRIMARY OSTEOARTHRITIS, LEFT 07/13/2018 KISHA BALDWIN MD Ot R53.83 OTHER FATIGUE 07/13/2018 KISHA BALDWIN MD Ot R82.90 UNSPECIFIED ABNORMAL FINDINGS IN URINE 07/13/2018 KISHA BALDWIN MD Ot Z01.812 ENCOUNTER FOR PREPROCEDURAL LABORATORY E 07/13/2018 KISHA BALDWIN MD Ot Z11.2 ENCOUNTER FOR SCREENING FOR OTHER BACTER 07/13/2018 KISHA BALDWIN MD Ot M17.12 UNILATERAL PRIMARY OSTEOARTHRITIS, LEFT 07/13/2018 KISHA BALDWIN MD Ot R53.83 OTHER FATIGUE 07/13/2018 KISHA BALDWIN MD Ot R82.90 UNSPECIFIED ABNORMAL FINDINGS IN URINE 07/13/2018 KISHA BALDWIN MD Ot Z01.812 ENCOUNTER FOR PREPROCEDURAL LABORATORY E 07/13/2018 KISHA BALDWIN MD Ot Z11.2 ENCOUNTER FOR SCREENING FOR OTHER BACTER 07/15/2018 KISHA BALWDIN MD Ot M17.12 UNILATERAL PRIMARY OSTEOARTHRITIS, LEFT 07/15/2018 KISHA BALDWIN MD Ot R53.83 OTHER FATIGUE 07/15/2018 KISHA BALDWIN MD Ot R82.90 UNSPECIFIED ABNORMAL FINDINGS IN URINE 07/15/2018 KISHA BALDWIN MD Ot Z01.812 ENCOUNTER FOR PREPROCEDURAL LABORATORY E 07/15/2018 KISHA BALDWIN MD Ot Z11.2 ENCOUNTER FOR SCREENING FOR OTHER BACTER 07/15/2018 ZAHIRA PETERSEN DO Ot E66. 01 MORBID (SEVERE) OBESITY DUE TO EXCESS CA 07/15/2018 ZAHIRA PETERSEN DO Ot J30. 9 ALLERGIC RHINITIS, UNSPECIFIED 07/15/2018 ZAHIRA PETERSEN DO Ot R06. 02 SHORTNESS OF BREATH 07/15/2018 ZAHIRA PETERSEN DO Ot E66. 01 MORBID (SEVERE) OBESITY DUE TO EXCESS CA 07/15/2018 ZAHIRA PETERSEN DO Ot J30. 9 ALLERGIC RHINITIS, UNSPECIFIED 07/15/2018 ZAHIRA PETERSEN DO Ot R06. 02 SHORTNESS OF BREATH 07/18/2018 KISHA BALDWIN MD Ot E11.9 TYPE 2 DIABETES MELLITUS WITHOUT COMPLIC 07/18/2018 KISHA BALDWIN MD Ot E66.01 MORBID (SEVERE) OBESITY DUE TO EXCESS CA 07/18/2018 KISHA BALDWIN MD Ot E78.00 PURE HYPERCHOLESTEROLEMIA, UNSPECIFIED 07/18/2018 KISHA BALDWIN MD Ot F31.9 BIPOLAR DISORDER, UNSPECIFIED 07/18/2018 KISHA BALDWIN MD, Ot F41.9 ANXIETY DISORDER, UNSPECIFIED 07/18/2018 KISHA BALDWIN MD Ot G47.30 SLEEP APNEA, UNSPECIFIED 07/18/2018 KISHA BALDWIN MD Ot G47.33 OBSTRUCTIVE SLEEP APNEA (ADULT) (PEDIATR 07/18/2018 KISHA BALDWIN MD Ot I51.7 CARDIOMEGALY 07/18/2018 KISHA BALDWIN MD, Ot J30.9 ALLERGIC RHINITIS, UNSPECIFIED 07/18/2018 KISHA BALDWIN MD, Ot J44.9 CHRONIC OBSTRUCTIVE PULMONARY DISEASE, U 07/18/2018 KISHA BALDWIN MD Ot M17.12 UNILATERAL PRIMARY OSTEOARTHRITIS, LEFT 07/18/2018 KISHA BALDWIN MD Ot M54.9 DORSALGIA, UNSPECIFIED 07/18/2018 KISHA BALDWIN MD Ot Z2 3 ENCOUNTER FOR IMMUNIZATION 07/18/2018 KISHA BALDWIN MD Ot Z68.41 BODY MASS INDEX (BMI) 40.0-44.9, ADULT 07/18/2018 KISHA BALDWIN MD Ot Z79.84 LONGTERM (CURRENT) USE OF ORAL HYPOGLYC 07/18/2018 KISHA BALDWIN MD Ot Z87.891 PERSONAL HISTORY OF NICOTINE DEPENDENCE 07/21/2018 SLY HARRIS APRN Ot R10.11 RIGHT UPPER QUADRANT PAIN 07/21/2018 SLY HARRIS APRN Ot Z90.49 ACQUIRED ABSENCE OF OTHER SPECIFIED PART 10/29/2018 JANELLE ESPITIA APRN Ot E11 .9 TYPE 2 DIABETES MELLITUS WITHOUT COMPLIC 10/29/2018 JANELLE ESPITIA APRN Ot E66 .9 OBESITY, UNSPECIFIED 10/29/2018 JANELLE ESPITIA APRN Ot E78.00 PURE HYPERCHOLESTEROLEMIA, UNSPECIFIED 10/29/2018 JANELLE ESPITIA APRN Ot F31 .9 BIPOLAR DISORDER, UNSPECIFIED 10/29/2018 JANELLE ESPITIA APRN Ot F41 .9 ANXIETY DISORDER, UNSPECIFIED 10/29/2018 JANELLE ESPITIA APRN Ot G47.30 SLEEP APNEA, UNSPECIFIED 10/29/2018 JANELLE ESPITIA APRN Ot J44 .9 CHRONIC OBSTRUCTIVE PULMONARY DISEASE, U 10/29/2018 JANELLE ESPITIA APRN Ot K21 .9 GASTRO-ESOPHAGEAL REFLUX DISEASE WITHOUT 10/29/2018 JANELLE ESPITIA APRN Ot K58 .9 IRRITABLE BOWEL SYNDROME WITHOUT DIARRHE 10/29/2018 JANELLE ESPITIA APRN Ot R05 COUGH 10/29/2018 JANELLE ESPITIA APRN Ot R07.89 OTHER CHEST PAIN 10/29/2018 JANELLE ESPITIA APRN Ot Z79.51 LONGTERM (CURRENT) USE OF INHALED STERO 10/29/2018 JANELLE ESPITIA APRN Ot Z79.82 LONGTERM (CURRENT) USE OF ASPIRIN 10/29/2018 JANELLE ESPITIA APRN Ot Z82.49 FAMILY HX OF ISCHEM HEART DIS AND OTH DI 10/29/2018 JANELLE ESPITIA APRN Ot Z87.19 PERSONAL HISTORY OF OTHER DISEASES OF TH 10/29/2018 JANELLE ESPITIA APRN Ot Z87.440 PERSONAL HISTORY OF URINARY (TRACT) INFE 10/29/2018 JANELLE ESPITIA APRN Ot Z87.448 PERSONAL HISTORY OF OTHER DISEASES OF UR 10/29/2018 JANELLE ESPITIA APRN Ot Z87.891 PERSONAL HISTORY OF NICOTINE DEPENDENCE 10/29/2018 JANELLE ESPITIA APRN Ot Z88 .0 ALLERGY STATUS TO PENICILLIN 10/29/2018 JANELLE ESPITIA APRN Ot Z88 .8 ALLERGY STATUS TO OTH DRUG/MEDS/BIOL SUB 10/29/2018 JANELLE ESPITIA APRN Ot 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 10/29/2018 JANELLE ESPITIA APRN Ot Z91.041 RADIOGRAPHIC DYE ALLERGY STATUS 10/29/2018 JANELLE ESPITIA APRN Ot Z98.890 OTHER SPECIFIED POSTPROCEDURAL STATES 11/02/2018 JANELLE ESPITIA APRN Ot E11 .9 TYPE 2 DIABETES MELLITUS WITHOUT COMPLIC 11/02/2018 JANELLE ESPITIA APRN Ot E66 .9 OBESITY, UNSPECIFIED 11/02/2018 JANELLE ESPITIA APRN Ot E78.00 PURE HYPERCHOLESTEROLEMIA, UNSPECIFIED 11/02/2018 JANELLE ESPITIA APRN Ot F31 .9 BIPOLAR DISORDER, UNSPECIFIED 11/02/2018 JANELLE ESPITIA APRN Ot F41 .9 ANXIETY DISORDER, UNSPECIFIED 11/02/2018 JANELLE ESPITIA APRN Ot G47.30 SLEEP APNEA, UNSPECIFIED 11/02/2018 JANELLE ESPITIA APRN Ot J44 .9 CHRONIC OBSTRUCTIVE PULMONARY DISEASE, U 11/02/2018 JANELLE ESPITIA APRN Ot K21 .9 GASTRO-ESOPHAGEAL REFLUX DISEASE WITHOUT 11/02/2018 JANELLE ESPITIA APRN Ot K58 .9 IRRITABLE BOWEL SYNDROME WITHOUT DIARRHE 11/02/2018 JANELLE ESPITIA APRN Ot R05 COUGH 11/02/2018 JANELLE ESPITIA APRN Ot R07.89 OTHER CHEST PAIN 11/02/2018 JANELLE ESPITIA APRN Ot Z79.51 LONGTERM (CURRENT) USE OF INHALED STERO 11/02/2018 JANELLE ESPITIA APRN Ot Z79.82 LONGTERM (CURRENT) USE OF ASPIRIN 11/02/2018 JANELLE ESPITIA APRN Ot Z82.49 FAMILY HX OF ISCHEM HEART DIS AND OTH DI 11/02/2018 JANELLE ESPITIA APRN Ot Z87.19 PERSONAL HISTORY OF OTHER DISEASES OF TH 11/02/2018 JANELLE ESPITIA APRN Ot Z87.440 PERSONAL HISTORY OF URINARY (TRACT) INFE 11/02/2018 JANELLE ESPITIA APRN Ot Z87.448 PERSONAL HISTORY OF OTHER DISEASES OF UR 11/02/2018 JANELLE ESPITIA APRN Ot Z87.891 PERSONAL HISTORY OF NICOTINE DEPENDENCE 11/02/2018 JANELLE ESPITIA APRN Ot Z88 .0 ALLERGY STATUS TO PENICILLIN 11/02/2018 JANELLE ESPITIA APRN Ot Z88 .8 ALLERGY STATUS TO OTH DRUG/MEDS/BIOL SUB 11/02/2018 JANELLE ESPITIA APRN Ot 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 9 TYPE 2 DIABETES MELLITUS WITHOUT COMPLIC 11/29/2018 YOUNG CULLEN, CHRISTO Huston Ot E66. 9 OBESITY, UNSPECIFIED 11/29/2018 YOUNG CULLEN, CHRISTO Huston Ot E78. 00 PURE HYPERCHOLESTEROLEMIA, UNSPECIFIED 11/29/2018 YOUNG CULLEN, CHRISTO Huston Ot F32. 9 MAJOR DEPRESSIVE DISORDER, SINGLE EPISOD 11/29/2018 YOUNG CULLEN, CHRISTO Huston Ot F41. 9 ANXIETY DISORDER, UNSPECIFIED 11/29/2018 YOUNG CULLEN, CHRISTO Huston Ot G25. 81 RESTLESS LEGS SYNDROME 11/29/2018 YOUNG CULLEN, CHRISTO Huston Ot G47. 30 SLEEP APNEA, UNSPECIFIED 11/29/2018 YOUNG CULLEN, CHRISTO Huston Ot J44. 9 CHRONIC OBSTRUCTIVE PULMONARY DISEASE, U 11/29/2018 YOUNG CULLEN, CHRISTO Huston Ot K21. 9 GASTRO-ESOPHAGEAL REFLUX DISEASE WITHOUT 11/29/2018 YOUNG CULLEN, CHRISTO Huston Ot K58. 9 IRRITABLE BOWEL SYNDROME WITHOUT DIARRHE 11/29/2018 YOUNG CULLEN, CHRISTO Huston Ot M79. 10 MYALGIA, UNSPECIFIED SITE 11/29/2018 YOUNG CULLEN, CHRISTO Huston Ot R05 COUGH 11/29/2018 YOUNG CULLEN, CHRISTO Huston Ot R53. 1 WEAKNESS 11/29/2018 YOUNG CULLEN, CHRISTO Huston Ot R53. 81 OTHER MALAISE 11/29/2018 YOUNG CULLEN, CHRISTO Huston Ot Z79. 51 STUDY MANAGER (CURRENT) USE OF INHALED STERO 11/29/2018 CHRISTO VIDAL MD Ot Z79. 82 STUDY MANAGER (CURRENT) USE OF ASPIRIN 11/29/2018 YOUNG CULLEN, CHRISTO Huston Ot Z82. 49 FAMILY HX OF ISCHEM HEART DIS AND OTH DI 11/29/2018 YOUNG CULLEN, CHRISTO Huston Ot Z87. 19 PERSONAL HISTORY OF OTHER DISEASES OF TH 11/29/2018 YOUNG CULLEN, CHRISTO Huston Ot Z87.440 PERSONAL HISTORY OF URINARY (TRACT) INFE 11/29/2018 YOUNG CULLEN, CHRISTO Huston Ot Z87.448 PERSONAL HISTORY OF OTHER DISEASES OF UR 11/29/2018 CHRISTO VIDAL MD Ot Z87.891 PERSONAL HISTORY OF NICOTINE DEPENDENCE 11/29/2018 YOUNG CULLEN, CHRISTO Huston Ot Z88. 0 ALLERGY STATUS TO PENICILLIN 11/29/2018 YOUNG CULLEN, CHRISTO Huston Ot Z88. 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 9 TYPE 2 DIABETES MELLITUS WITHOUT COMPLIC 12/02/2018 YOUNG CULLEN, CHRISTO Huston Ot E66. 9 OBESITY, UNSPECIFIED 12/02/2018 YOUNG CULLEN, CHRISTO Huston Ot E78. 00 PURE HYPERCHOLESTEROLEMIA, UNSPECIFIED 12/02/2018 YOUNG CULLEN, CHRISTO Huston Ot F32. 9 MAJOR DEPRESSIVE DISORDER, SINGLE EPISOD 12/02/2018 YOUNG CULLEN, CHRISTO Huston Ot F41. 9 ANXIETY DISORDER, UNSPECIFIED 12/02/2018 YOUNG CULLEN, CHRISTO Huston Ot G25. 81 RESTLESS LEGS SYNDROME 12/02/2018 YOUNG CULLEN, CHRISTO Huston Ot G47. 30 SLEEP APNEA, UNSPECIFIED 12/02/2018 YOUNG CULLEN, CHRISTO Huston Ot J44. 9 CHRONIC OBSTRUCTIVE PULMONARY DISEASE, U 12/02/2018 YOUNG CULLEN, CHRITSO Huston Ot K21. 9 GASTRO-ESOPHAGEAL REFLUX DISEASE WITHOUT 12/02/2018 YOUNG CULLEN, CHRISTO Huston Ot K58. 9 IRRITABLE BOWEL SYNDROME WITHOUT DIARRHE 12/02/2018 YOUNG CULLEN, CHRISTO Huston Ot M79. 10 MYALGIA, UNSPECIFIED SITE 12/02/2018 YOUNG CULLEN, CHRISTO Huston Ot R05 COUGH 12/02/2018 YOUNG CULLEN, CHRISTO Huston Ot R53. 1 WEAKNESS 12/02/2018 YOUNG CULLEN, CHRISTO Huston Ot R53. 81 OTHER MALAISE 12/02/2018 YOUNG CULLEN, CHRISTO Huston Ot Z79. 51 STUDY MANAGER (CURRENT) USE OF INHALED STERO 12/02/2018 YOUNG CULLEN, CHRISTO Huston Ot Z79. 82 STUDY MANAGER (CURRENT) USE OF ASPIRIN 12/02/2018 YOUNG CULLEN, CHRISTO Huston Ot Z82. 49 FAMILY HX OF ISCHEM HEART DIS AND OTH DI 12/02/2018 YOUNG CULLEN, CHRISTO Huston Ot Z87. 19 PERSONAL HISTORY OF OTHER DISEASES OF TH 12/02/2018 YOUNG CULLEN, CHRISTO Huston Ot Z87.440 PERSONAL HISTORY OF URINARY (TRACT) INFE 12/02/2018 YOUNG CULLEN, CHRISTO Huston Ot Z87.448 PERSONAL HISTORY OF OTHER DISEASES OF UR 12/02/2018 YOUNG CULLEN, CHRISTO Huston Ot Z87.891 PERSONAL HISTORY OF NICOTINE DEPENDENCE 12/02/2018 YOUNG CULLEN, CHRISTO Huston Ot Z88. 0 ALLERGY STATUS TO PENICILLIN 12/02/2018 YOUNG CULLEN, CHRISTO Huston Ot Z88. 8 ALLERGY STATUS TO OTH DRUG/MEDS/BIOL SUB 12/02/2018 YOUNG CULLEN, CHRISTO Huston Ot 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 12/02/2018 YOUNG CULLEN, CHRISTO Huston Ot Z91.041 RADIOGRAPHIC DYE ALLERGY STATUS 12/02/2018 YOUNG CULLEN, CHRISTO Huston Ot Z98.890 OTHER SPECIFIED POSTPROCEDURAL STATES 12/07/2018 YOUNG CULLEN, CHRISTO Huston Ot E11. 9 TYPE 2 DIABETES MELLITUS WITHOUT COMPLIC 12/07/2018 YOUNG CULLEN, CHRISTO Huston Ot E66. 9 OBESITY, UNSPECIFIED 12/07/2018 YOUNG CULLEN, CHRISTO Huston Ot E78. 00 PURE HYPERCHOLESTEROLEMIA, UNSPECIFIED 12/07/2018 YOUNG CULLEN, CHRISTO Huston Ot F32. 9 MAJOR DEPRESSIVE DISORDER, SINGLE EPISOD 12/07/2018 YOUNG CULLEN, CHRISTO Huston Ot F41. 9 ANXIETY DISORDER, UNSPECIFIED 12/07/2018 YOUNG CULLEN, CHRISTO Huston Ot G25. 81 RESTLESS LEGS SYNDROME 12/07/2018 YOUNG CULLEN, CHRISTO Huston Ot G47. 30 SLEEP APNEA, UNSPECIFIED 12/07/2018 YOUNG CULLEN, CHRISTO Huston Ot J44. 9 CHRONIC OBSTRUCTIVE PULMONARY DISEASE, U 12/07/2018 YOUNG CULLEN, CHRISTO Huston Ot K21. 9 GASTRO-ESOPHAGEAL REFLUX DISEASE WITHOUT 12/07/2018 YOUNG CULLEN, CHRISTO Huston Ot K58. 9 IRRITABLE BOWEL SYNDROME WITHOUT DIARRHE 12/07/2018 YOUNG CULLEN, CHRISTO Huston Ot M79. 10 MYALGIA, UNSPECIFIED SITE 12/07/2018 YOUNG CULLEN, CHRISTO Huston Ot R05 COUGH 12/07/2018 YOUNG CULLEN, CHRISTO Huston Ot R53. 1 WEAKNESS 12/07/2018 YOUNG CULLEN, CHRISTO Huston Ot R53. 81 OTHER MALAISE 12/07/2018 CHRISTO VIDAL MD Ot Z79. 51 STUDY MANAGER (CURRENT) USE OF INHALED STERO 12/07/2018 CHRISTO VIDAL MD Ot Z79. 82 LONGTERM (CURRENT) USE OF ASPIRIN 12/07/2018 YOUNG CULLEN, CHRISTO Huston Ot Z82. 49 FAMILY HX OF ISCHEM HEART DIS AND OTH DI 12/07/2018 CHRISTO VIDAL MD Ot Z87. 19 PERSONAL HISTORY OF OTHER DISEASES OF TH 12/07/2018 CHRISTO VIDAL MD Ot Z87.440 PERSONAL HISTORY OF URINARY (TRACT) INFE 12/07/2018 CHRISTO VIDAL MD Ot Z87.448 PERSONAL HISTORY OF OTHER DISEASES OF UR 12/07/2018 CHRISTO VIDAL MD Ot Z87.891 PERSONAL HISTORY OF NICOTINE DEPENDENCE 12/07/2018 CHRISTO VIDAL MD Ot Z88. 0 ALLERGY STATUS TO PENICILLIN 12/07/2018 CHRISTO VIDAL MD Ot Z88. 8 ALLERGY STATUS TO OT DRUG/MEDS/BIOL SUB 12/07/2018 CHRSITO VIDAL MD Ot 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 12/07/2018 CHRISTO VIDAL MD Ot Z91.041 RADIOGRAPHIC DYE ALLERGY STATUS 12/07/2018 CHRISTO VIDAL MD Ot Z98.890 OTHER SPECIFIED POSTPROCEDURAL STATES 12/16/2018 STEPHANE KIMBLE DO Ot Z01.818 ENCOUNTER FOR OTHER PREPROCEDURAL EXAMIN 12/17/2018 ZAHIRA PETERSEN DO Ot E66. 01 MORBID (SEVERE) OBESITY DUE TO EXCESS CA 12/17/2018 ZAHIRA PETERSEN DO Ot J30. 9 ALLERGIC RHINITIS, UNSPECIFIED 12/17/2018 ZAHIRA PETERSEN DO Ot R06. 02 SHORTNESS OF BREATH 12/17/2018 STEPHANE KIMBLE DO Ot Z01.818 ENCOUNTER FOR OTHER PREPROCEDURAL EXAMIN 12/17/2018 STEPHANE KIMBLE DO Ot Z01.818 ENCOUNTER FOR OTHER PREPROCEDURAL EXAMIN 12/18/2018 STEPHANE KIMBLE DO Ot Z01.818 ENCOUNTER FOR OTHER PREPROCEDURAL EXAMIN 12/22/2018 EDI FAUSTIN DO Ot Z12.31 ENCNTR SCREEN MAMMOGRAM FOR MALIGNANT NE 12/22/2018 KISHA BALDWIN MD Ot M75.112 INCOMPLETE ROTATR-CUFF TEAR/RUPTR OF L S 12/22/2018 EDI FAUSTIN DO Ot J18.9 PNEUMONIA, UNSPECIFIED ORGANISM 12/22/2018 EDI FAUSTIN DO Ot J40 BRONCHITIS, NOT SPECIFIED ACUTE OR CH 12/22/2018 KISHA BALDWIN MD Ot M75.102 UNSP ROTATR-CUFF TEAR/RUPTR OF LEFT SHOU 12/22/2018 KISHA BALDWIN MD Ot Z01.818 ENCOUNTER FOR OTHER PREPROCEDURAL EXAMIN 12/22/2018 KISHA BALDWIN MD Ot Z11.2 ENCOUNTER FOR SCREENING FOR OTHER BACTER 12/22/2018 KISHA CARRILLO MD Ot R13.19 OTHER DYSPHAGIA 12/22/2018 KISHA CARRILLO MD Ot R49 .0 DYSPHONIA 12/22/2018 KISHA CARRILLO MD Ot R13.10 DYSPHAGIA, UNSPECIFIED 12/22/2018 EDI FAUSTIN DO Ot R07.81 PLEURODYNIA 12/22/2018 MAJOR GIPSON APRN Ot J30.9 ALLERGIC RHINITIS, UNSPECIFIED 12/22/2018 MAJOR GIPSON APRN Ot R06.02 SHORTNESS OF BREATH 12/22/2018 ZAHIRA PETERSEN DO Ot E66. 01 MORBID (SEVERE) OBESITY DUE TO EXCESS CA 12/22/2018 ZAHIRA PEETRSEN DO Ot J30. 9 ALLERGIC RHINITIS, UNSPECIFIED 12/22/2018 ZAHIRA PETERSEN DO Ot R06. 02 SHORTNESS OF BREATH 12/22/2018 ZAHIRA PETERSEN DO Ot E66. 01 MORBID (SEVERE) OBESITY DUE TO EXCESS CA 12/22/2018 ZAHIRA PETERSEN DO Ot J30. 9 ALLERGIC RHINITIS, UNSPECIFIED 12/22/2018 ZAHIRA PETERSEN DO Ot R06. 02 SHORTNESS OF BREATH 12/22/2018 ZAHIRA PETERSEN DO Ot R91. 1 SOLITARY PULMONARY NODULE 12/22/2018 EDI FAUSTIN DO Ot N64.4 MASTODYNIA 12/22/2018 ZAHIRA PETERSEN DO Ot E66. 01 MORBID (SEVERE) OBESITY DUE TO EXCESS CA 12/22/2018 ZAHIRA PETERSEN DO Ot J30. 9 ALLERGIC RHINITIS, UNSPECIFIED 12/22/2018 ZAHIRA PETERSEN DO M Ot R06. 02 SHORTNESS OF BREATH 12/22/2018 EDI FAUSTIN DO A Ot R10.12 LEFT UPPER QUADRANT PAIN 12/22/2018 EDI FAUSTIN DO Ot R10.11 RIGHT UPPER QUADRANT PAIN 12/22/2018 DONNA CULLEN, NICKY Lawrence Ot E11.6 5 TYPE 2 DIABETES MELLITUS WITH HYPERGLYCE 12/22/2018 DONNA CULLEN, NICKY Lawrence Ot R10.1 1 RIGHT UPPER QUADRANT PAIN 12/22/2018 KYLAH CULLEN, PATRIC N Ot R10.31 RIGHT LOWER QUADRANT PAIN 12/22/2018 CECELIA CULLEN, Nia WILSON Ot E11 .9 TYPE 2 DIABETES MELLITUS WITHOUT COMPLIC 12/22/2018 CECELIA CULLEN, Nia WILSON Ot E78 .5 HYPERLIPIDEMIA, UNSPECIFIED 12/22/2018 CECELIA CULLEN, Nia WILSON Ot J44 .9 CHRONIC OBSTRUCTIVE PULMONARY DISEASE, U 12/22/2018 CECELIA CULLEN, Nia WILSON Ot R07 .9 CHEST PAIN, UNSPECIFIED 12/22/2018 CECELIA CULLEN, Nia WILSON Ot E11 .9 TYPE 2 DIABETES MELLITUS WITHOUT COMPLIC 12/22/2018 CECELIA CULLEN, Nia WILSON Ot E78 .5 HYPERLIPIDEMIA, UNSPECIFIED 12/22/2018 CECELIA CULLEN, Nia WILSON Ot J44 .9 CHRONIC OBSTRUCTIVE PULMONARY DISEASE, U 12/22/2018 CECELIA CULLEN, Nia WILSON Ot R07 .9 CHEST PAIN, UNSPECIFIED 12/22/2018 MAJOR GIPSON APRN Ot R06.02 SHORTNESS OF BREATH 12/22/2018 MAJOR GIPSON CUSTOMER RELATIONSHIP SPECIALIST Ot M79.604 PAIN IN RIGHT LEG 12/22/2018 MAJOR GIPSON APRN Ot M79.605 PAIN IN LEFT LEG 12/22/2018 MAJOR GIPSON APRN Ot R06.00 DYSPNEA, UNSPECIFIED 12/22/2018 MAJOR GIPSON APRN Ot R22.43 LOCALIZED SWELLING, MASS AND LUMP, LOWER 12/22/2018 DONNA CULLEN, NICKY Lawrence Ot Z12.3 1 ENCNTR SCREEN MAMMOGRAM FOR MALIGNANT NE 12/22/2018 NICKY THOMPSON MD Ot N63.2 3 UNSPECIFIED LUMP IN THE LEFT BREAST, LOW 12/22/2018 SLY HARRIS CUSTOMER RELATIONSHIP SPECIALIST Ot R10.11 RIGHT UPPER QUADRANT PAIN 12/22/2018 SLY HARRIS CUSTOMER RELATIONSHIP SPECIALIST Ot Z90.49 ACQUIRED ABSENCE OF OTHER SPECIFIED PART 12/22/2018 STEPHANE KIMBLE DO Ot 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 9 TYPE 2 DIABETES MELLITUS WITHOUT COMPLIC 12/22/2018 STEPHANE KIMBLE DO Ot E66. 01 MORBID (SEVERE) OBESITY DUE TO EXCESS CA 12/22/2018 STEPHANE KIMBLE DO Ot E78. 5 HYPERLIPIDEMIA, UNSPECIFIED 12/22/2018 STEPHANE KIMBLE DO Ot G47. 33 OBSTRUCTIVE SLEEP APNEA (ADULT) (PEDIATR 12/22/2018 STEPHANE KIMBLE DO Ot J43. 9 EMPHYSEMA, UNSPECIFIED 12/22/2018 STEPHANE KIMBLE DO Ot K29. 50 UNSPECIFIED CHRONIC GASTRITIS WITHOUT BL 12/22/2018 STEPHANE KIMBLE DO Ot K44. 9 DIAPHRAGMATIC HERNIA WITHOUT OBSTRUCTION 12/22/2018 STEPHANE KIMBLE DO Ot Z68. 41 BODY MASS INDEX (BMI) 40.0-44.9, ADULT 12/22/2018 STEPHANE KIMBLE DO Ot Z79. 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 9 TYPE 2 DIABETES MELLITUS WITHOUT COMPLIC 12/24/2018 STEPHANE KIMBLE DO Ot E66. 01 MORBID (SEVERE) OBESITY DUE TO EXCESS CA 12/24/2018 STEPHANE KIMBLE DO Ot E78. 5 HYPERLIPIDEMIA, UNSPECIFIED 12/24/2018 STEPHANE KIMBLE DO Ot G47. 33 OBSTRUCTIVE SLEEP APNEA (ADULT) (PEDIATR 12/24/2018 SHYANNE DOSTEPHANE Ot J43. 9 EMPHYSEMA, UNSPECIFIED 12/24/2018 STEPHANE KIMBLE DO Ot K29. 50 UNSPECIFIED CHRONIC GASTRITIS WITHOUT BL 12/24/2018 SHYANNE DOSTEPHANE Ot K44. 9 DIAPHRAGMATIC HERNIA WITHOUT OBSTRUCTION 12/24/2018 SHYANNE DOSTEPHANE Ot Z68. 41 BODY MASS INDEX (BMI) 40.0-44.9, ADULT 12/24/2018 STEPHANE KIMBLE DO Ot Z79. 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 9 TYPE 2 DIABETES MELLITUS WITHOUT COMPLIC 12/24/2018 STEPHANE KIMBLE DO Ot E66. 01 MORBID (SEVERE) OBESITY DUE TO EXCESS CA 12/24/2018 STEPHANE KIMBLE DO Ot E78. 5 HYPERLIPIDEMIA, UNSPECIFIED 12/24/2018 STEPHANE KIMBLE DO Ot G47. 33 OBSTRUCTIVE SLEEP APNEA (ADULT) (PEDIATR 12/24/2018 STEPHANE KIMBLE DO Ot J43. 9 EMPHYSEMA, UNSPECIFIED 12/24/2018 STEPHANE KIMBLE DO Ot K29. 50 UNSPECIFIED CHRONIC GASTRITIS WITHOUT BL 12/24/2018 STEPHANE KIMBLE DO Ot K44. 9 DIAPHRAGMATIC HERNIA WITHOUT OBSTRUCTION 12/24/2018 STEPHANE KIMBLE DO Ot Z68. 41 BODY MASS INDEX (BMI) 40.0-44.9, ADULT 12/24/2018 STEPHANE KIMBLE DO D Ot Z79. 84 STUDY MANAGER (CURRENT) USE OF ORAL HYPOGLYC 12/24/2018 STEPHANE KIMBLE DO D Ot Z79.899 OTHER LONGTERM (CURRENT) DRUG THERAPY 12/24/2018 STEPHANE KIMBLE DO Ot Z87.891 PERSONAL HISTORY OF NICOTINE DEPENDENCE 12/26/2018 RAMIN EDI LOU Ot Z12.31 ENCNTR SCREEN MAMMOGRAM FOR MALIGNANT NE 12/26/2018 NICOLASA CULLEN, KISHA Justice Ot M75.112 INCOMPLETE ROTATR-CUFF TEAR/RUPTR OF L S 12/26/2018 JCARLOSDAYLIN EDI LOU Ot J18.9 PNEUMONIA, UNSPECIFIED ORGANISM 12/26/2018 EDI FAUSTIN DO Ot J40 BRONCHITIS, NOT SPECIFIED ACUTE OR CH 12/26/2018 KISHA BALDWIN MD Ot M75.102 UNSP ROTATR-CUFF TEAR/RUPTR OF LEFT SHOU 12/26/2018 KISHA BALDWIN MD Ot Z01.818 ENCOUNTER FOR OTHER PREPROCEDURAL EXAMIN 12/26/2018 KISHA BALDWIN MD Ot Z11.2 ENCOUNTER FOR SCREENING FOR OTHER BACTER 12/26/2018 KISHA CARRILLO MD Ot R13.19 OTHER DYSPHAGIA 12/26/2018 KISHA CARRILLO MD Ot R49 .0 DYSPHONIA 12/26/2018 KISHA CARRILLO MD Ot R13.10 DYSPHAGIA, UNSPECIFIED 12/26/2018 EDI FAUSTIN DO Ot R07.81 PLEURODYNIA 12/26/2018 MAJOR GIPSON APRN Ot J30.9 ALLERGIC RHINITIS, UNSPECIFIED 12/26/2018 MAJOR GIPSON APRN Ot R06.02 SHORTNESS OF BREATH 12/26/2018 ZAHIRA PETERSEN DO Ot E66. 01 MORBID (SEVERE) OBESITY DUE TO EXCESS CA 12/26/2018 ZAHIRA PETERSEN DO Ot J30. 9 ALLERGIC RHINITIS, UNSPECIFIED 12/26/2018 ZAHIRA PETERSEN DO Ot R06. 02 SHORTNESS OF BREATH 12/26/2018 ZAHIRA PETERSEN DO Ot E66. 01 MORBID (SEVERE) OBESITY DUE TO EXCESS CA 12/26/2018 ZAHIRA PETERSEN DO Ot J30. 9 ALLERGIC RHINITIS, UNSPECIFIED 12/26/2018 ZAHIRA PETERSEN DO Ot R06. 02 SHORTNESS OF BREATH 12/26/2018 ZAHIRA PETERSEN DO Ot R91. 1 SOLITARY PULMONARY NODULE 12/26/2018 EDI FAUSTIN DO Ot N64.4 MASTODYNIA 12/26/2018 ZAHIRA PETERSEN DO Ot E66. 01 MORBID (SEVERE) OBESITY DUE TO EXCESS CA 12/26/2018 ZAHIRA PETERSEN DO M Ot J30. 9 ALLERGIC RHINITIS, UNSPECIFIED 12/26/2018 ZAHIRA PETERSEN DO Ot R06. 02 SHORTNESS OF BREATH 12/26/2018 RAMIN LOU, EDI A Ot R10.12 LEFT UPPER QUADRANT PAIN 12/26/2018 RAMIN LOU, EDI A Ot R10.11 RIGHT UPPER QUADRANT PAIN 12/26/2018 DONNA CULLEN, NICKY R Ot E11.6 5 TYPE 2 DIABETES MELLITUS WITH HYPERGLYCE 12/26/2018 DONNA CULLEN, NICKY Lawrence Ot R10.1 1 RIGHT UPPER QUADRANT PAIN 12/26/2018 KYLAH CULLEN, PATRIC Saucedo Ot R10.31 RIGHT LOWER QUADRANT PAIN 12/26/2018 CECELIA CULLEN, Nia WILSON Ot E11 .9 TYPE 2 DIABETES MELLITUS WITHOUT COMPLIC 12/26/2018 CECELIA CULLEN, Nia WILSON Ot E78 .5 HYPERLIPIDEMIA, UNSPECIFIED 12/26/2018 CECELIA CULLEN, Nia WILSON Ot J44 .9 CHRONIC OBSTRUCTIVE PULMONARY DISEASE, U 12/26/2018 CECELIA CULLEN, Nia WILSON Ot R07 .9 CHEST PAIN, UNSPECIFIED 12/26/2018 CECELIA CULLEN, Nia WILSON Ot E11 .9 TYPE 2 DIABETES MELLITUS WITHOUT COMPLIC 12/26/2018 CECELIA CULLEN, Nia WILSON Ot E78 .5 HYPERLIPIDEMIA, UNSPECIFIED 12/26/2018 CECELIA CULLEN, Nia WILSON Ot J44 .9 CHRONIC OBSTRUCTIVE PULMONARY DISEASE, U 12/26/2018 CECELIA CULLEN, Nia WILSON Ot R07 .9 CHEST PAIN, UNSPECIFIED 12/26/2018 MAJOR GIPSON CUSTOMER RELATIONSHIP SPECIALIST Ot R06.02 SHORTNESS OF BREATH 12/26/2018 MAJOR GIPSON CUSTOMER RELATIONSHIP SPECIALIST Ot M79.604 PAIN IN RIGHT LEG 12/26/2018 MAJOR GIPSON CUSTOMER RELATIONSHIP SPECIALIST Ot M79.605 PAIN IN LEFT LEG 12/26/2018 MAJOR GIPSON CUSTOMER RELATIONSHIP SPECIALIST Ot R06.00 DYSPNEA, UNSPECIFIED 12/26/2018 MAJOR GIPSON CUSTOMER RELATIONSHIP SPECIALIST Ot R22.43 LOCALIZED SWELLING, MASS AND LUMP, LOWER 12/26/2018 NICKY THOMPSON MD R Ot Z12.3 1 ENCNTR SCREEN MAMMOGRAM FOR MALIGNANT NE 12/26/2018 DONNA CULLEN, NICKY R Ot N63.2 3 UNSPECIFIED LUMP IN THE LEFT BREAST, LOW 12/26/2018 SLY HARRIS APRN Ot R10.11 RIGHT UPPER QUADRANT PAIN 12/26/2018 SLY HARRIS CUSTOMER RELATIONSHIP SPECIALIST Ot Z90.49 ACQUIRED ABSENCE OF OTHER SPECIFIED PART 12/26/2018 REBEKA, OLIVA INDUSTRIAL TRUCK MECHANIC Ot E11.9 TYPE 2 DIABETES MELLITUS WITHOUT COMPLIC 12/26/2018 REBEKA, OLIVA INDUSTRIAL TRUCK MECHANIC Ot E66.9 OBESITY, UNSPECIFIED 12/26/2018 REBEKA, OLIVA INDUSTRIAL TRUCK MECHANIC Ot F32.9 MAJOR DEPRESSIVE DISORDER, SINGLE EPISOD 12/26/2018 REBEKA, OLIVA INDUSTRIAL TRUCK MECHANIC Ot F41.9 ANXIETY DISORDER, UNSPECIFIED 12/26/2018 REBEKA, OLIVA INDUSTRIAL TRUCK MECHANIC Ot G25.81 RESTLESS LEGS SYNDROME 12/26/2018 REBEKA, OLIVA INDUSTRIAL TRUCK MECHANIC Ot H66.93 OTITIS MEDIA, UNSPECIFIED, BILATERAL 12/26/2018 REBEKA, OLIVA INDUSTRIAL TRUCK MECHANIC Ot J02.9 ACUTE PHARYNGITIS, UNSPECIFIED 12/26/2018 REBEKA, OLIVA INDUSTRIAL TRUCK MECHANIC Ot J06.9 ACUTE UPPER RESPIRATORY INFECTION, UNSPE 12/26/2018 REBEKA, OLIVA INDUSTRIAL TRUCK MECHANIC Ot K21.9 GASTRO-ESOPHAGEAL REFLUX DISEASE WITHOUT 12/26/2018 REBEKA, OLIVA INDUSTRIAL TRUCK MECHANIC Ot K58.9 IRRITABLE BOWEL SYNDROME WITHOUT DIARRHE 12/26/2018 REBEKA OLIVA INDUSTRIAL TRUCK MECHANIC Ot Z68.41 BODY MASS INDEX (BMI) 40.0-44.9, ADULT 12/26/2018 REBEKA OLIVA INDUSTRIAL TRUCK MECHANIC Ot Z79.51 STUDY MANAGER (CURRENT) USE OF INHALED STERO 12/26/2018 REBEKA OLIVA INDUSTRIAL TRUCK MECHANIC Ot Z79.84 LONGTERM (CURRENT) USE OF ORAL HYPOGLYC 12/26/2018 REBEKA OLIVA INDUSTRIAL TRUCK MECHANIC Ot Z82.49 FAMILY HX OF ISCHEM HEART DIS AND OTH DI 12/26/2018 REBEKA OLIVA INDUSTRIAL TRUCK MECHANIC Ot Z87.19 PERSONAL HISTORY OF OTHER DISEASES OF TH 12/26/2018 OLIVA STALEY INDUSTRIAL TRUCK MECHANIC Ot Z87.440 PERSONAL HISTORY OF URINARY (TRACT) INFE 12/26/2018 OLIVA STALEY INDUSTRIAL TRUCK MECHANIC Ot Z87.448 PERSONAL HISTORY OF OTHER DISEASES OF UR 12/26/2018 OLIVA STALEY INDUSTRIAL TRUCK MECHANIC Ot Z87.891 PERSONAL HISTORY OF NICOTINE DEPENDENCE 12/26/2018 REBEKAOLIVA Gallegos Ot Z88.0 ALLERGY STATUS TO PENICILLIN 12/26/2018 OLIVA STALEY Ot Z88.8 ALLERGY STATUS TO OTH DRUG/MEDS/BIOL SUB 12/26/2018 REBEKAOLIVA Gallegos Ot 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 12/26/2018 OLIVA STALEY Ot Z91.041 RADIOGRAPHIC DYE ALLERGY STATUS 12/26/2018 OLIVA STALEY Ot Z96.652 PRESENCE OF LEFT ARTIFICIAL KNEE JOINT 12/26/2018 OLIVA STALEY Ot Z98.890 OTHER SPECIFIED POSTPROCEDURAL STATES 12/30/2018 STEPHANE KIMBLE DO Ot 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 9 TYPE 2 DIABETES MELLITUS WITHOUT COMPLIC 12/30/2018 STEPHANE KIMBLE DO Ot E66. 01 MORBID (SEVERE) OBESITY DUE TO EXCESS CA 12/30/2018 STEPHANE KIMBLE DO Ot E78. 5 HYPERLIPIDEMIA, UNSPECIFIED 12/30/2018 STEPHANE KIMBLE DO Ot G47. 33 OBSTRUCTIVE SLEEP APNEA (ADULT) (PEDIATR 12/30/2018 STEPHANE KIMBLE DO Ot J43. 9 EMPHYSEMA, UNSPECIFIED 12/30/2018 STEPHANE KIMBLE DO Ot K29. 50 UNSPECIFIED CHRONIC GASTRITIS WITHOUT BL 12/30/2018 STEPHANE KIMBLE DO Ot K44. 9 DIAPHRAGMATIC HERNIA WITHOUT OBSTRUCTION 12/30/2018 STEPHANE KIMBLE DO Ot Z68. 41 BODY MASS INDEX (BMI) 40.0-44.9, ADULT 12/30/2018 STEPHANE KIMBLE DO Ot Z79. 84 LONGTERM (CURRENT) USE OF ORAL HYPOGLYC 12/30/2018 STEPHANE KIMBLE DO Ot Z79.899 OTHER STUDY MANAGER (CURRENT) DRUG THERAPY 12/30/2018 STEPHANE KIMBLE DO Ot Z87.891 PERSONAL HISTORY OF NICOTINE DEPENDENCE 12/30/2018 OLIVA STALEY Ot E11.9 TYPE 2 DIABETES MELLITUS WITHOUT COMPLIC 12/30/2018 REBEKA, OLIVA INDUSTRIAL TRUCK MECHANIC Ot E66.9 OBESITY, UNSPECIFIED 12/30/2018 REBEKA, OLIVA INDUSTRIAL TRUCK MECHANIC Ot F32.9 MAJOR DEPRESSIVE DISORDER, SINGLE EPISOD 12/30/2018 REBEKA, OLIVA INDUSTRIAL TRUCK MECHANIC Ot F41.9 ANXIETY DISORDER, UNSPECIFIED 12/30/2018 REBEKA, OLIVA INDUSTRIAL TRUCK MECHANIC Ot G25.81 RESTLESS LEGS SYNDROME 12/30/2018 REBEKA, OLIVA INDUSTRIAL TRUCK MECHANIC Ot H66.93 OTITIS MEDIA, UNSPECIFIED, BILATERAL 12/30/2018 REBEKA, OLIVA INDUSTRIAL TRUCK MECHANIC Ot J02.9 ACUTE PHARYNGITIS, UNSPECIFIED 12/30/2018 REBEKA, OLIVA INDUSTRIAL TRUCK MECHANIC Ot J06.9 ACUTE UPPER RESPIRATORY INFECTION, UNSPE 12/30/2018 REBEKA, OLIVA INDUSTRIAL TRUCK MECHANIC Ot K21.9 GASTRO-ESOPHAGEAL REFLUX DISEASE WITHOUT 12/30/2018 REBEKA, OLIVA INDUSTRIAL TRUCK MECHANIC Ot K58.9 IRRITABLE BOWEL SYNDROME WITHOUT DIARRHE 12/30/2018 REBEKAOLIVA Gallegos INDUSTRIAL TRUCK MECHANIC Ot Z68.41 BODY MASS INDEX (BMI) 40.0-44.9, ADULT 12/30/2018 OLIVA STALEY INDUSTRIAL TRUCK MECHANIC Ot Z79.51 STUDY MANAGER (CURRENT) USE OF INHALED STERO 12/30/2018 REBEKA OLIVA INDUSTRIAL TRUCK MECHANIC Ot Z79.84 LONGTERM (CURRENT) USE OF ORAL HYPOGLYC 12/30/2018 REBEKAOLIVA Gallegos INDUSTRIAL TRUCK MECHANIC Ot Z82.49 FAMILY HX OF ISCHEM HEART DIS AND OTH DI 12/30/2018 OLIVA STALEY INDUSTRIAL TRUCK MECHANIC Ot Z87.19 PERSONAL HISTORY OF OTHER DISEASES OF TH 12/30/2018 OLIVA STALEY INDUSTRIAL TRUCK MECHANIC Ot Z87.440 PERSONAL HISTORY OF URINARY (TRACT) INFE 12/30/2018 OLIVA STALEY INDUSTRIAL TRUCK MECHANIC Ot Z87.448 PERSONAL HISTORY OF OTHER DISEASES OF UR 12/30/2018 OLIVA STALEY INDUSTRIAL TRUCK MECHANIC Ot Z87.891 PERSONAL HISTORY OF NICOTINE DEPENDENCE 12/30/2018 OLIVA STALEY INDUSTRIAL TRUCK MECHANIC Ot Z88.0 ALLERGY STATUS TO PENICILLIN 12/30/2018 REBEKA OLIVA INDUSTRIAL TRUCK MECHANIC Ot Z88.8 ALLERGY STATUS TO OT DRUG/MEDS/BIOL SUB 12/30/2018 REBEKA OLIVA INDUSTRIAL TRUCK MECHANIC Ot 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 12/30/2018 REBEKA OLIVA INDUSTRIAL TRUCK MECHANIC Ot Z91.041 RADIOGRAPHIC DYE ALLERGY STATUS 12/30/2018 OLIVA STALEY INDUSTRIAL TRUCK MECHANIC Ot Z96.652 PRESENCE OF LEFT ARTIFICIAL KNEE JOINT 12/30/2018 OLIVA STALEYP Ot Z98.890 OTHER SPECIFIED POSTPROCEDURAL STATES 01/04/2019 KISHA BALDWIN MD, Ot Z01.818 ENCOUNTER FOR OTHER PREPROCEDURAL EXAMIN 01/06/2019 ZAHIRA PETERSEN DO, Ot E66. 01 MORBID (SEVERE) OBESITY DUE TO EXCESS CA 01/06/2019 ZAHIRA PETERSEN DO, Ot J30. 9 ALLERGIC RHINITIS, UNSPECIFIED 01/06/2019 ZAHIRA PETERSEN DO Ot R06. 02 SHORTNESS OF BREATH 01/06/2019 KISHA BALDWIN MD Ot E11.9 TYPE 2 DIABETES MELLITUS WITHOUT COMPLIC 01/06/2019 KISHA BALDWIN MD, Ot E66.01 MORBID (SEVERE) OBESITY DUE TO EXCESS CA 01/06/2019 KISHA BALDWIN MD Ot E78.00 PURE HYPERCHOLESTEROLEMIA, UNSPECIFIED 01/06/2019 KISHA BALDWIN MD Ot E78.5 HYPERLIPIDEMIA, UNSPECIFIED 01/06/2019 KISHA BALDWIN MD Ot F31.9 BIPOLAR DISORDER, UNSPECIFIED 01/06/2019 KISHA BALDWIN MD, Ot F41.9 ANXIETY DISORDER, UNSPECIFIED 01/06/2019 KISHA BALDWIN MD Ot G47.33 OBSTRUCTIVE SLEEP APNEA (ADULT) (PEDIATR 01/06/2019 KISHA BALDWIN MD, Ot J44.9 CHRONIC OBSTRUCTIVE PULMONARY DISEASE, U 01/06/2019 KISHA BALDWIN MD Ot K21.9 GASTRO-ESOPHAGEAL REFLUX DISEASE WITHOUT 01/06/2019 KISHA BALDWIN MD Ot M16.12 UNILATERAL PRIMARY OSTEOARTHRITIS, LEFT 01/06/2019 KISHA BALDWIN MD Ot M79.7 FIBROMYALGIA 01/06/2019 KISHA BALDWIN MD Ot Z68.41 BODY MASS INDEX (BMI) 40.0-44.9, ADULT 01/06/2019 KISHA BALDWIN MD Ot Z79.84 LONGTERM (CURRENT) USE OF ORAL HYPOGLYC 01/06/2019 KISHA BALDWIN MD Ot Z79.899 OTHER LONGTERM (CURRENT) DRUG THERAPY 01/06/2019 KISHA BALDWIN MD, Ot Z87.891 PERSONAL HISTORY OF NICOTINE DEPENDENCE 01/06/2019 KISHA BALDWIN MD, Ot Z88.0 ALLERGY STATUS TO PENICILLIN 01/06/2019 KISHA BALDWIN MD, Ot Z91.041 RADIOGRAPHIC DYE ALLERGY STATUS 01/06/2019 KISHA BALDWIN MD, Ot Z96.652 PRESENCE OF LEFT ARTIFICIAL KNEE JOINT 01/07/2019 KISHA BALDWIN MD, Ot E11.9 TYPE 2 DIABETES MELLITUS WITHOUT COMPLIC 01/07/2019 KISHA BALDWIN MD, Ot E66.01 MORBID (SEVERE) OBESITY DUE TO EXCESS CA 01/07/2019 KISHA BALDWIN MD, Ot E78.00 PURE HYPERCHOLESTEROLEMIA, UNSPECIFIED 01/07/2019 KISHA BALDWIN MD, Ot E78.5 HYPERLIPIDEMIA, UNSPECIFIED 01/07/2019 KISHA BALDWIN MD, Ot F31.9 BIPOLAR DISORDER, UNSPECIFIED 01/07/2019 KISHA BALDWIN MD, Ot F41.9 ANXIETY DISORDER, UNSPECIFIED 01/07/2019 KISHA BALDWIN MD, Ot G47.33 OBSTRUCTIVE SLEEP APNEA (ADULT) (PEDIATR 01/07/2019 KISHA BALDWIN MD, Ot J44.9 CHRONIC OBSTRUCTIVE PULMONARY DISEASE, U 01/07/2019 KISHA BALDWIN MD, Ot K21.9 GASTRO-ESOPHAGEAL REFLUX DISEASE WITHOUT 01/07/2019 KISHA BALDWIN MD, Ot M16.12 UNILATERAL PRIMARY OSTEOARTHRITIS, LEFT 01/07/2019 KISHA BALDWIN MD Ot M79.7 FIBROMYALGIA 01/07/2019 KISHA BALDWIN MD, Ot Z68.41 BODY MASS INDEX (BMI) 40.0-44.9, ADULT 01/07/2019 KISHA BALDWIN MD Ot Z79.84 STUDY MANAGER (CURRENT) USE OF ORAL HYPOGLYC 01/07/2019 KISHA BALDWIN MD, Ot Z79.899 OTHER LONGTERM (CURRENT) DRUG THERAPY 01/07/2019 KISHA BALDWIN MD, Ot Z87.891 PERSONAL HISTORY OF NICOTINE DEPENDENCE 01/07/2019 KISHA BALDWIN MD, Ot Z88.0 ALLERGY STATUS TO PENICILLIN 01/07/2019 KISHA BALDWIN MD, Ot Z96.652 PRESENCE OF LEFT ARTIFICIAL KNEE JOINT 01/07/2019 KISHA BALDWIN MD, Ot E11.9 TYPE 2 DIABETES MELLITUS WITHOUT COMPLIC 01/07/2019 KISHA BALDWIN MD, Ot E66.01 MORBID (SEVERE) OBESITY DUE TO EXCESS CA 01/07/2019 KISHA BALDWIN MD, Ot E78.00 PURE HYPERCHOLESTEROLEMIA, UNSPECIFIED 01/07/2019 KISHA BALDWIN MD, Ot E78.5 HYPERLIPIDEMIA, UNSPECIFIED 01/07/2019 KISHA BALDWIN MD, Ot F31.9 BIPOLAR DISORDER, UNSPECIFIED 01/07/2019 KISHA BALDWIN MD, Ot F41.9 ANXIETY DISORDER, UNSPECIFIED 01/07/2019 KISHA BALDWIN MD, Ot G47.33 OBSTRUCTIVE SLEEP APNEA (ADULT) (PEDIATR 01/07/2019 KISHA BALDWIN MD, Ot J44.9 CHRONIC OBSTRUCTIVE PULMONARY DISEASE, U 01/07/2019 KISHA BALDWIN MD, Ot K21.9 GASTRO-ESOPHAGEAL REFLUX DISEASE WITHOUT 01/07/2019 KISHA BALDWIN MD, Ot M16.12 UNILATERAL PRIMARY OSTEOARTHRITIS, LEFT 01/07/2019 KISHA BALDWIN MD Ot M79.7 FIBROMYALGIA 01/07/2019 KISAH BALDWIN MD Ot Z68.41 BODY MASS INDEX (BMI) 40.0-44.9, ADULT 01/07/2019 KISHA BALDWIN MD Ot Z79.84 LONGTERM (CURRENT) USE OF ORAL HYPOGLYC 01/07/2019 KISHA BALDWIN MD, Ot Z79.899 OTHER LONGTERM (CURRENT) DRUG THERAPY 01/07/2019 KISHA BALDWIN MD, Ot Z87.891 PERSONAL HISTORY OF NICOTINE DEPENDENCE 01/07/2019 KISHA BALDWIN MD, Ot Z88.0 ALLERGY STATUS TO PENICILLIN 01/07/2019 KISHA BALDWIN MD Ot Z96.652 PRESENCE OF LEFT ARTIFICIAL KNEE JOINT 01/10/2019 KISHA BALDWIN MD Ot Z01.818 ENCOUNTER FOR OTHER PREPROCEDURAL EXAMIN 01/14/2019 KISHA BALDWIN MD Ot E11.9 TYPE 2 DIABETES MELLITUS WITHOUT COMPLIC 01/14/2019 KISHA BALDWIN MD, Ot E66.01 MORBID (SEVERE) OBESITY DUE TO EXCESS CA 01/14/2019 KISHA BALDWIN MD, Ot E78.00 PURE HYPERCHOLESTEROLEMIA, UNSPECIFIED 01/14/2019 KISHA BALDWIN MD, Ot E78.5 HYPERLIPIDEMIA, UNSPECIFIED 01/14/2019 KISHA BALDWIN MD, Ot F31.9 BIPOLAR DISORDER, UNSPECIFIED 01/14/2019 KISHA BALDWIN MD, Ot F41.9 ANXIETY DISORDER, UNSPECIFIED 01/14/2019 KISHA BALDWIN MD, Ot G47.33 OBSTRUCTIVE SLEEP APNEA (ADULT) (PEDIATR 01/14/2019 KISHA BALDWIN MD, Ot J44.9 CHRONIC OBSTRUCTIVE PULMONARY DISEASE, U 01/14/2019 KISHA BALDWIN MD, Ot K21.9 GASTRO-ESOPHAGEAL REFLUX DISEASE WITHOUT 01/14/2019 KISHA BALDWIN MD, Ot M16.12 UNILATERAL PRIMARY OSTEOARTHRITIS, LEFT 01/14/2019 KISHA BALDWIN MD, Ot M79.7 FIBROMYALGIA 01/14/2019 KISHA BALDWIN MD, Ot Z68.41 BODY MASS INDEX (BMI) 40.0-44.9, ADULT 01/14/2019 KISHA BALDWIN MD, Ot Z79.84 LONGTERM (CURRENT) USE OF ORAL HYPOGLYC 01/14/2019 KISHA BALDWIN MD, Ot Z79.899 OTHER STUDY MANAGER (CURRENT) DRUG THERAPY 01/14/2019 KISHA BALDWIN MD, Ot Z87.891 PERSONAL HISTORY OF NICOTINE DEPENDENCE 01/14/2019 KISHA BALDWIN MD, Ot Z88.0 ALLERGY STATUS TO PENICILLIN 01/14/2019 KISHA BALDWIN MD, Ot Z91.041 RADIOGRAPHIC DYE ALLERGY STATUS 01/14/2019 KISHA BALDWIN MD, Ot Z96.652 PRESENCE OF LEFT ARTIFICIAL KNEE JOINT 05/06/2019 GHASSAN HARVEY Ot E11.9 TYPE 2 DIABETES MELLITUS WITHOUT COMPLIC 05/06/2019 GHASSAN HARVEY Ot E66.9 OBESITY, UNSPECIFIED 05/06/2019 GHASSAN HARVEY Ot E78.00 PURE HYPERCHOLESTEROLEMIA, UNSPECIFIED 05/06/2019 GHASSAN HARVEY Ot F31.9 BIPOLAR DISORDER, UNSPECIFIED 05/06/2019 GHASSAN HARVEY Ot F41.9 ANXIETY DISORDER, UNSPECIFIED 05/06/2019 GHASSAN HARVEY Ot G47.30 SLEEP APNEA, UNSPECIFIED 05/06/2019 GHASSAN HARVEY Ot J44.9 CHRONIC OBSTRUCTIVE PULMONARY DISEASE, U 05/06/2019 GHASSAN HARVEY Ot K21.9 GASTRO-ESOPHAGEAL REFLUX DISEASE WITHOUT 05/06/2019 GHASSAN HARVEY Ot K58.9 IRRITABLE BOWEL SYNDROME WITHOUT DIARRHE 05/06/2019 GHASSAN HARVEY Ot L76.34 POSTPROC SEROMA OF SKIN, SUBCU FOLLOWING 05/06/2019 GHASSAN HARVEY Ot M79.7 FIBROMYALGIA 05/06/2019 GHASSAN HARVEY Ot Z68.41 BODY MASS INDEX (BMI) 40.0-44.9, ADULT 05/06/2019 GHASSAN HARVEY Ot Z79.51 STUDY MANAGER (CURRENT) USE OF INHALED STERO 05/06/2019 GHASSAN HARVEY Ot Z79.84 STUDY MANAGER (CURRENT) USE OF ORAL HYPOGLYC 05/06/2019 GHASSAN HARVEY Ot Z87.19 PERSONAL HISTORY OF OTHER DISEASES OF TH 05/06/2019 GHASSAN HARVEY Ot Z87.440 PERSONAL HISTORY OF URINARY (TRACT) INFE 05/06/2019 GHASSAN HARVEY Ot Z87.891 PERSONAL HISTORY OF NICOTINE DEPENDENCE 05/06/2019 GHASSAN HARVEY Ot Z88.0 ALLERGY STATUS TO PENICILLIN 05/06/2019 GHASSAN HARVEY Ot Z88.1 ALLERGY STATUS TO OTHER ANTIBIOTIC AGENT 05/06/2019 GHASSAN HARVEY Ot Z88.8 ALLERGY STATUS TO OTH DRUG/MEDS/BIOL SUB 05/06/2019 GHASSAN HARVEY Ot 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 05/06/2019 GHASSAN HARVEY Ot Z91.041 RADIOGRAPHIC DYE ALLERGY STATUS 05/06/2019 GHASSAN HARVEY Ot Z96.612 PRESENCE OF LEFT ARTIFICIAL SHOULDER MILLA 05/06/2019 GHASSAN HARVEY Ot Z96.653 PRESENCE OF ARTIFICIAL KNEE JOINT, BILAT 05/10/2019 GHASSAN HARVEY Ot E11.9 TYPE 2 DIABETES MELLITUS WITHOUT COMPLIC 05/10/2019 GHASSAN HARVEY Ot E66.9 OBESITY, UNSPECIFIED 05/10/2019 LYLA HARVEYIS Ot E78.00 PURE HYPERCHOLESTEROLEMIA, UNSPECIFIED 05/10/2019 GHASSAN HARVEY Ot F31.9 BIPOLAR DISORDER, UNSPECIFIED 05/10/2019 GHASSAN HARVEY Ot F41.9 ANXIETY DISORDER, UNSPECIFIED 05/10/2019 GHASSAN HARVEY Ot G47.30 SLEEP APNEA, UNSPECIFIED 05/10/2019 GHASSAN HARVEY Ot J44.9 CHRONIC OBSTRUCTIVE PULMONARY DISEASE, U 05/10/2019 GHASSAN HARVEY Ot K21.9 GASTRO-ESOPHAGEAL REFLUX DISEASE WITHOUT 05/10/2019 LYLA HARVEYIS Ot K58.9 IRRITABLE BOWEL SYNDROME WITHOUT DIARRHE 05/10/2019 VICKIEJAKUB GHASSAN Ot L76.34 POSTPROC SEROMA OF SKIN, SUBCU FOLLOWING 05/10/2019 GHASSAN HARVEY Ot M79.7 FIBROMYALGIA 05/10/2019 GHASSAN HARVEY Ot Z68.41 BODY MASS INDEX (BMI) 40.0-44.9, ADULT 05/10/2019 GHASSAN HARVEY Ot Z79.51 STUDY MANAGER (CURRENT) USE OF INHALED STERO 05/10/2019 GHASSAN HARVEY Ot Z79.84 LONGTERM (CURRENT) USE OF ORAL HYPOGLYC 05/10/2019 GHASSAN HARVEY Ot Z87.19 PERSONAL HISTORY OF OTHER DISEASES OF TH 05/10/2019 GHASSAN HARVEY Ot Z87.440 PERSONAL HISTORY OF URINARY (TRACT) INFE 05/10/2019 LYLA HARVEYIS Ot Z87.891 PERSONAL HISTORY OF NICOTINE DEPENDENCE 05/10/2019 GHASSAN HARVEY Ot Z88.0 ALLERGY STATUS TO PENICILLIN 05/10/2019 LYLA HARVEYIS Ot Z88.1 ALLERGY STATUS TO OTHER ANTIBIOTIC AGENT 05/10/2019 LYLA HARVEYIS Ot Z88.8 ALLERGY STATUS TO OT DRUG/MEDS/BIOL SUB 05/10/2019 GHASSAN HARVEY Ot 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 05/10/2019 GHASSAN HARVEY Ot Z91.041 RADIOGRAPHIC DYE ALLERGY STATUS 05/10/2019 LYLA HARVEYIS Ot Z96.612 PRESENCE OF LEFT ARTIFICIAL SHOULDER MILLA 05/10/2019 GHASSAN HARVEY Ot Z96.653 PRESENCE OF ARTIFICIAL KNEE JOINT, BILAT 06/24/2019 ZAHIRA PETERSEN DO Ot E66. 01 MORBID (SEVERE) OBESITY DUE TO EXCESS CA 06/24/2019 ZAHIRA PETERSEN DO, Ot J30. 9 ALLERGIC RHINITIS, UNSPECIFIED 06/24/2019 ZAHIRA PETERSEN DO Ot R06. 02 SHORTNESS OF BREATH 06/24/2019 NICOLASA CULLEN, KISHA Justice Ot Z01.818 ENCOUNTER FOR OTHER PREPROCEDURAL EXAMIN 06/30/2019 ZAHIRA PETERSEN DO, Ot E66. 01 MORBID (SEVERE) OBESITY DUE TO EXCESS CA 06/30/2019 ZAHIRA PETERSEN DO, Ot J30. 9 ALLERGIC RHINITIS, UNSPECIFIED 06/30/2019 ZAHIRA PETERSEN DO, Ot R06. 02 SHORTNESS OF BREATH 06/30/2019 KISHA BALDWIN MD, Ot E11.9 TYPE 2 DIABETES MELLITUS WITHOUT COMPLIC 06/30/2019 KISHA BALDWIN MD, Ot E66.01 MORBID (SEVERE) OBESITY DUE TO EXCESS CA 06/30/2019 KISHA BALDWIN MD, Ot E78.00 PURE HYPERCHOLESTEROLEMIA, UNSPECIFIED 06/30/2019 KISHA BALDWIN MD, Ot G47.33 OBSTRUCTIVE SLEEP APNEA (ADULT) (PEDIATR 06/30/2019 KISHA BALDWIN MD, Ot I42.9 CARDIOMYOPATHY, UNSPECIFIED 06/30/2019 KISHA BALDWIN MD, Ot J44.9 CHRONIC OBSTRUCTIVE PULMONARY DISEASE, U 06/30/2019 KISHA BALDWIN MD, Ot K21.9 GASTRO-ESOPHAGEAL REFLUX DISEASE WITHOUT 06/30/2019 KISHA BALDWIN MD, Ot M19.90 UNSPECIFIED OSTEOARTHRITIS, UNSPECIFIED 06/30/2019 KISHA BALDWIN MD, Ot M23.8X2 OTHER INTERNAL DERANGEMENTS OF LEFT KNEE 06/30/2019 KISHA BALDWIN MD, Ot Z79.84 STUDY MANAGER (CURRENT) USE OF ORAL HYPOGLYC 06/30/2019 KISHA BALDWIN MD, Ot Z79.891 LONGTERM (CURRENT) USE OF OPIATE ANALGE 06/30/2019 KISHA BALDWIN MD, Ot Z79.899 OTHER LONGTERM (CURRENT) DRUG THERAPY 06/30/2019 KISHA BALDWIN MD, Ot Z87.891 PERSONAL HISTORY OF NICOTINE DEPENDENCE 06/30/2019 KISHA BALDWIN MD, Ot Z88.0 ALLERGY STATUS TO PENICILLIN 06/30/2019 KISHA BALDWIN MD, Ot Z88.6 ALLERGY STATUS TO ANALGESIC AGENT STATUS 06/30/2019 KISHA BALDWIN MD, Ot Z88.8 ALLERGY STATUS TO OTH DRUG/MEDS/BIOL SUB 06/30/2019 KISHA BALDWIN MD, Ot Z90.49 ACQUIRED ABSENCE OF OTHER SPECIFIED PART 06/30/2019 KISHA BALDWIN MD, Ot Z90.710 ACQUIRED ABSENCE OF BOTH CERVIX AND UTER 06/30/2019 KISHA BALDWIN MD, Ot Z91.041 RADIOGRAPHIC DYE ALLERGY STATUS 07/07/2019 KISHA BALDWIN MD, Ot E11.9 TYPE 2 DIABETES MELLITUS WITHOUT COMPLIC 07/07/2019 KISHA BALDWIN MD, Ot E66.01 MORBID (SEVERE) OBESITY DUE TO EXCESS CA 07/07/2019 KISHA BALDWIN MD, Ot E78.00 PURE HYPERCHOLESTEROLEMIA, UNSPECIFIED 07/07/2019 KISHA BALDWIN MD, Ot G47.33 OBSTRUCTIVE SLEEP APNEA (ADULT) (PEDIATR 07/07/2019 KISHA BALDWIN MD, Ot I42.9 CARDIOMYOPATHY, UNSPECIFIED 07/07/2019 KISHA BALDWIN MD, Ot J44.9 CHRONIC OBSTRUCTIVE PULMONARY DISEASE, U 07/07/2019 KISHA BALDWIN MD, Ot K21.9 GASTRO-ESOPHAGEAL REFLUX DISEASE WITHOUT 07/07/2019 KISHA BALDWIN MD, Ot M19.90 UNSPECIFIED OSTEOARTHRITIS, UNSPECIFIED 07/07/2019 KISHA BALDWIN MD, Ot M23.8X2 OTHER INTERNAL DERANGEMENTS OF LEFT KNEE 07/07/2019 KISHA BALDWIN MD, Ot Z79.84 LONGTERM (CURRENT) USE OF ORAL HYPOGLYC 07/07/2019 KISHA BALDWIN MD, Ot Z79.891 LONGTERM (CURRENT) USE OF OPIATE ANALGE 07/07/2019 KISHA BALDWIN MD, Ot Z79.899 OTHER LONGTERM (CURRENT) DRUG THERAPY 07/07/2019 KISHA BALDWIN MD, Ot Z87.891 PERSONAL HISTORY OF NICOTINE DEPENDENCE 07/07/2019 KISHA BALDWIN MD, Ot Z88.0 ALLERGY STATUS TO PENICILLIN 07/07/2019 KISHA BALDWIN MD, Ot Z88.6 ALLERGY STATUS TO ANALGESIC AGENT STATUS 07/07/2019 KISHA BALDWIN MD, Ot Z88.8 ALLERGY STATUS TO OTH DRUG/MEDS/BIOL SUB 07/07/2019 KISHA BALDWIN MD, Ot Z90.49 ACQUIRED ABSENCE OF OTHER SPECIFIED PART 07/07/2019 KISHA BALDWIN MD, Ot Z90.710 ACQUIRED ABSENCE OF BOTH CERVIX AND UTER 07/07/2019 KISHA BALDWIN MD, Ot Z91.041 RADIOGRAPHIC DYE ALLERGY STATUS 07/07/2019 KISHA BALDWIN MD, Ot E11.9 TYPE 2 DIABETES MELLITUS WITHOUT COMPLIC 07/07/2019 KISHA BALDWIN MD, Ot E66.01 MORBID (SEVERE) OBESITY DUE TO EXCESS CA 07/07/2019 KISHA BALDWIN MD, Ot E78.00 PURE HYPERCHOLESTEROLEMIA, UNSPECIFIED 07/07/2019 KISHA BALDWIN MD, Ot G47.33 OBSTRUCTIVE SLEEP APNEA (ADULT) (PEDIATR 07/07/2019 KISHA BALDWIN MD, Ot I42.9 CARDIOMYOPATHY, UNSPECIFIED 07/07/2019 KISHA BALDWIN MD, Ot J44.9 CHRONIC OBSTRUCTIVE PULMONARY DISEASE, U 07/07/2019 KISHA BALDWIN MD, Ot K21.9 GASTRO-ESOPHAGEAL REFLUX DISEASE WITHOUT 07/07/2019 KISHA BALDWIN MD, Ot M19.90 UNSPECIFIED OSTEOARTHRITIS, UNSPECIFIED 07/07/2019 KISHA BALDWIN MD, Ot M23.8X2 OTHER INTERNAL DERANGEMENTS OF LEFT KNEE 07/07/2019 KISHA BALDWIN MD, Ot Z79.84 LONGTERM (CURRENT) USE OF ORAL HYPOGLYC 07/07/2019 KISHA BALDWIN MD, Ot Z79.891 LONGTERM (CURRENT) USE OF OPIATE ANALGE 07/07/2019 KISHA BALDWIN MD, Ot Z79.899 OTHER LONGTERM (CURRENT) DRUG THERAPY 07/07/2019 KISHA BALDWIN MD, Ot Z87.891 PERSONAL HISTORY OF NICOTINE DEPENDENCE 07/07/2019 KISHA BALDWIN MD, Ot Z88.0 ALLERGY STATUS TO PENICILLIN 07/07/2019 KISHA BALDWIN MD, Ot Z88.6 ALLERGY STATUS TO ANALGESIC AGENT STATUS 07/07/2019 KISHA BALDWIN MD, Ot Z88.8 ALLERGY STATUS TO OTH DRUG/MEDS/BIOL SUB 07/07/2019 KISHA BALDWIN MD, Ot Z90.49 ACQUIRED ABSENCE OF OTHER SPECIFIED PART 07/07/2019 KISHA BALDWIN MD, Ot Z90.710 ACQUIRED ABSENCE OF BOTH CERVIX AND UTER 07/07/2019 KISHA BALDWIN MD, Ot Z91.041 RADIOGRAPHIC DYE ALLERGY STATUS 08/05/2019 KOROMA DO, ARELY L Ot B34.9 VIRAL INFECTION, UNSPECIFIED 08/05/2019 KOROMA DO, ARELY L Ot E11.9 TYPE 2 DIABETES MELLITUS WITHOUT COMPLIC 08/05/2019 KOROMA DO, ARELY L Ot E78.0 0 PURE HYPERCHOLESTEROLEMIA, UNSPECIFIED 08/05/2019 KOROMA DO, ARELY L Ot F17.2 10 NICOTINE DEPENDENCE, CIGARETTES, UNCOMPL 08/05/2019 KOROMA DO, ARELY L Ot F31.9 BIPOLAR DISORDER, UNSPECIFIED 08/05/2019 KOROMA DO, ARELY L Ot F41.9 ANXIETY DISORDER, UNSPECIFIED 08/05/2019 KOROMA DO, ARELY L Ot G47.3 0 SLEEP APNEA, UNSPECIFIED 08/05/2019 KOROMA DO, ARELY L Ot J44.1 CHRONIC OBSTRUCTIVE PULMONARY DISEASE W 08/05/2019 KOROMA DO, ARELY L Ot J45.9 09 UNSPECIFIED ASTHMA, UNCOMPLICATED 08/05/2019 KOROMA DO, ARELY L Ot K58.9 IRRITABLE BOWEL SYNDROME WITHOUT DIARRHE 08/05/2019 KOROMA DO, ARELY L Ot M79.7 FIBROMYALGIA 08/05/2019 KOROMA DO, ARELY L Ot R51 HEADACHE 08/05/2019 KOROMA DO, ARELY L Ot Z79.5 1 STUDY MANAGER (CURRENT) USE OF INHALED STERO 08/05/2019 KOROMA DO, ARELY L Ot Z79.8 4 STUDY MANAGER (CURRENT) USE OF ORAL HYPOGLYC 08/05/2019 KOROMA DO, ARELY L Ot Z87.4 40 PERSONAL HISTORY OF URINARY (TRACT) INFE 08/05/2019 KOROMA DO, ARELY L Ot Z88.0 ALLERGY STATUS TO PENICILLIN 08/05/2019 KOROMA DO, ARELY L Ot Z88.1 ALLERGY STATUS TO OTHER ANTIBIOTIC AGENT 08/05/2019 KOROMA DO, ARELY L Ot Z88.8 ALLERGY STATUS TO OTH DRUG/MEDS/BIOL SUB 08/05/2019 KOROMA DO, ARELY L Ot Z96.6 42 PRESENCE OF LEFT ARTIFICIAL HIP JOINT 08/05/2019 KOROMA DO, ARELY L Ot Z96.6 52 PRESENCE OF LEFT ARTIFICIAL KNEE JOINT 08/06/2019 NICKY THOMPSON MD Ot Z12.3 1 ENCNTR SCREEN MAMMOGRAM FOR MALIGNANT NE 08/13/2019 NICKY THOMPSON MD Ot Z12.3 1 ENCNTR SCREEN MAMMOGRAM FOR MALIGNANT NE 08/23/2019 NICKY THOMPSON MD Ot Z00.0 0 ENCNTR FOR GENERAL ADULT MEDICAL EXAM W08/23/2019 NICKY THOMPSON MD Ot Z12.3 1 ENCNTR SCREEN MAMMOGRAM FOR MALIGNANT NE 09/16/2019 NICKY THOMPSON MD Ot Z00.0 0 ENCNTR FOR GENERAL ADULT MEDICAL EXAM W09/16/2019 NICKY THOMPSON MD Ot Z12.3 1 ENCNTR SCREEN MAMMOGRAM FOR MALIGNANT NE 09/23/2019 NICKY THOMPSON MD Ot Z00.0 0 ENCNTR FOR GENERAL ADULT MEDICAL EXAM W/ 09/23/2019 NICKY THOMPSON MD Ot Z12.3 1 ENCNTR SCREEN MAMMOGRAM FOR MALIGNANT NE 09/28/2019 ZURIEDI GARZA DO Ot Z12.31 ENCNTR SCREEN MAMMOGRAM FOR MALIGNANT NE 09/28/2019 KISHA BALDWIN MD Ot M75.112 INCOMPLETE ROTATR-CUFF TEAR/RUPTR OF L S 09/28/2019 EDI FAUSTIN DO Ot J18.9 PNEUMONIA, UNSPECIFIED ORGANISM 09/28/2019 EDI FAUSTIN DO Ot J40 BRONCHITIS, NOT SPECIFIED ACUTE OR CH 09/28/2019 KISHA BALDWIN MD Ot M75.102 UNSP ROTATR-CUFF TEAR/RUPTR OF LEFT SHOU 09/28/2019 KISHA BALDWIN MD Ot Z01.818 ENCOUNTER FOR OTHER PREPROCEDURAL EXAMIN 09/28/2019 KISHA BALDWIN MD Ot Z11.2 ENCOUNTER FOR SCREENING FOR OTHER BACTER 09/28/2019 KISHA CARRILLO MD Ot R13.19 OTHER DYSPHAGIA 09/28/2019 KISHA CARRILLO MD Ot R49 .0 DYSPHONIA 09/28/2019 KISHA CARRILLO MD Ot R13.10 DYSPHAGIA, UNSPECIFIED 09/28/2019 EDI FAUSTIN DO Ot R07.81 PLEURODYNIA 09/28/2019 MAJOR GIPSON APRN Ot J30.9 ALLERGIC RHINITIS, UNSPECIFIED 09/28/2019 MAJOR GIPSON APRN Ot R06.02 SHORTNESS OF BREATH 09/28/2019 ZAHIRA PETERSEN DO Ot E66. 01 MORBID (SEVERE) OBESITY DUE TO EXCESS CA 09/28/2019 ZAHIRA PETERSEN DO Ot J30. 9 ALLERGIC RHINITIS, UNSPECIFIED 09/28/2019 ZAHIRA PETERSEN DO Ot R06. 02 SHORTNESS OF BREATH 09/28/2019 ZAHIRA PETERSEN DO Ot E66. 01 MORBID (SEVERE) OBESITY DUE TO EXCESS CA 09/28/2019 ZAHIRA PETERSEN DO Ot J30. 9 ALLERGIC RHINITIS, UNSPECIFIED 09/28/2019 ZAHIRA PETERSEN DO Ot R06. 02 SHORTNESS OF BREATH 09/28/2019 ZAHIRA PETERSEN DO Ot R91. 1 SOLITARY PULMONARY NODULE 09/28/2019 EDI FAUSTIN DO A Ot N64.4 MASTODYNIA 09/28/2019 ZAHIRA PETERSEN DO Ot E66. 01 MORBID (SEVERE) OBESITY DUE TO EXCESS CA 09/28/2019 ZAHIRA PETERSEN DO Ot J30. 9 ALLERGIC RHINITIS, UNSPECIFIED 09/28/2019 ZAHIRA PETERSEN DO Ot R06. 02 SHORTNESS OF BREATH 09/28/2019 RAMIN LOU, EDI A Ot R10.12 LEFT UPPER QUADRANT PAIN 09/28/2019 RAMIN LOU, EDI A Ot R10.11 RIGHT UPPER QUADRANT PAIN 09/28/2019 NICKY THOMPSON MD Ot E11.6 5 TYPE 2 DIABETES MELLITUS WITH HYPERGLYCE 09/28/2019 NICKY THOMPSON MD Ot R10.1 1 RIGHT UPPER QUADRANT PAIN 09/28/2019 KYLAH CULLEN, APTRIC Saucedo Ot R10.31 RIGHT LOWER QUADRANT PAIN 09/28/2019 Nia RAI MD Ot E11 .9 TYPE 2 DIABETES MELLITUS WITHOUT COMPLIC 09/28/2019 Nia RAI MD Ot E78 .5 HYPERLIPIDEMIA, UNSPECIFIED 09/28/2019 Nia RAI MD Ot J44 .9 CHRONIC OBSTRUCTIVE PULMONARY DISEASE, U 09/28/2019 Nia RAI MD Ot R07 .9 CHEST PAIN, UNSPECIFIED 09/28/2019 Nia RAI MD Ot E11 .9 TYPE 2 DIABETES MELLITUS WITHOUT COMPLIC 09/28/2019 Nia RAI MD Ot E78 .5 HYPERLIPIDEMIA, UNSPECIFIED 09/28/2019 Nia RAI MD Ot J44 .9 CHRONIC OBSTRUCTIVE PULMONARY DISEASE, U 09/28/2019 Nia RAI MD Ot R07 .9 CHEST PAIN, UNSPECIFIED 09/28/2019 MAJOR GIPSON APRN Ot R06.02 SHORTNESS OF BREATH 09/28/2019 MAJOR GIPSON APRN Ot M79.604 PAIN IN RIGHT LEG 09/28/2019 MAJOR GIPSON APRN Ot M79.605 PAIN IN LEFT LEG 09/28/2019 MAJOR GIPSON APRN Ot R06.00 DYSPNEA, UNSPECIFIED 09/28/2019 MAJOR GIPSON APRN Ot R22.43 LOCALIZED SWELLING, MASS AND LUMP, LOWER 09/28/2019 NICKY THOMPSON MD Ot Z12.3 1 ENCNTR SCREEN MAMMOGRAM FOR MALIGNANT NE 09/28/2019 NICKY THOMPSON MD Ot N63.2 3 UNSPECIFIED LUMP IN THE LEFT BREAST, LOW 09/28/2019 SLY HARRIS APRN Ot R10.11 RIGHT UPPER QUADRANT PAIN 09/28/2019 SLY HARRIS APRN Ot Z90.49 ACQUIRED ABSENCE OF OTHER SPECIFIED PART 09/28/2019 NICKY THOMPSON MD Ot Z00.0 0 ENCNTR FOR GENERAL ADULT MEDICAL EXAM W/ 09/28/2019 NICKY THOMPSON MD Ot Z12.3 1 ENCNTR SCREEN MAMMOGRAM FOR MALIGNANT NE 09/28/2019 JANELLE ESPITIA APRN Ot E11 .9 TYPE 2 DIABETES MELLITUS WITHOUT COMPLIC 09/28/2019 JANELLE ESPITIA APRN Ot E78.00 PURE HYPERCHOLESTEROLEMIA, UNSPECIFIED 09/28/2019 JANELLE ESPITIA APRN Ot F31 .9 BIPOLAR DISORDER, UNSPECIFIED 09/28/2019 JANELLE ESPITIA APRN Ot F41 .9 ANXIETY DISORDER, UNSPECIFIED 09/28/2019 JANELLE ESPITIA APRN Ot G47.30 SLEEP APNEA, UNSPECIFIED 09/28/2019 JANELLE ESPITIA APRN Ot J44 .9 CHRONIC OBSTRUCTIVE PULMONARY DISEASE, U 09/28/2019 JANELLE ESPITIA APRN Ot K21 .9 GASTRO-ESOPHAGEAL REFLUX DISEASE WITHOUT 09/28/2019 JANELLE ESPITIA APRN Ot K58 .9 IRRITABLE BOWEL SYNDROME WITHOUT DIARRHE 09/28/2019 JANELLE ESPITIA APRN Ot M79 .7 FIBROMYALGIA 09/28/2019 JANELLE ESPITIA APRN Ot R10.33 PERIUMBILICAL PAIN 09/28/2019 JANELLE ESPITIA APRN Ot Z79.51 STUDY MANAGER (CURRENT) USE OF INHALED STERO 09/28/2019 JANELLE ESPITIA APRN Ot Z79.52 STUDY MANAGER (CURRENT) USE OF SYSTEMIC STER 09/28/2019 JANELLE ESPITIA APRN Ot Z79.84 STUDY MANAGER (CURRENT) USE OF ORAL HYPOGLYC 09/28/2019 JANELLE ESPITIA APRN Ot Z87.440 PERSONAL HISTORY OF URINARY (TRACT) INFE 09/28/2019 JANELLE ESPITIA APRN Ot Z87.891 PERSONAL HISTORY OF NICOTINE DEPENDENCE 09/28/2019 JANELLE ESPITIA APRN Ot Z88 .0 ALLERGY STATUS TO PENICILLIN 09/28/2019 JANELLE ESPITIA APRN Ot Z88 .1 ALLERGY STATUS TO OTHER ANTIBIOTIC AGENT 09/28/2019 JANELLE ESPITIA APRN Ot Z88 .8 ALLERGY STATUS TO OTH DRUG/MEDS/BIOL SUB 09/28/2019 JANELLE ESPITIA APRN Ot Z90.710 ACQUIRED ABSENCE OF BOTH CERVIX AND UTER 09/28/2019 JANELLE ESPITIA APRN Ot Z91.041 RADIOGRAPHIC DYE ALLERGY STATUS 09/28/2019 JANELLE ESPITIA APRN Ot Z96.652 PRESENCE OF LEFT ARTIFICIAL KNEE JOINT 09/28/2019 JANELLE ESPITIA APRN Ot Z99.89 DEPENDENCE ON OTHER ENABLING MACHINES AN 10/01/2019 JANELLE ESPITIA APRN Ot E11 .9 TYPE 2 DIABETES MELLITUS WITHOUT COMPLIC 10/01/2019 JANELLE ESPITIA APRN Ot E78.00 PURE HYPERCHOLESTEROLEMIA, UNSPECIFIED 10/01/2019 JANELLE ESPITIA APRN Ot F31 .9 BIPOLAR DISORDER, UNSPECIFIED 10/01/2019 JANELLE ESPITIA APRN Ot F41 .9 ANXIETY DISORDER, UNSPECIFIED 10/01/2019 JANELLE ESPITIA APRN Ot G47.30 SLEEP APNEA, UNSPECIFIED 10/01/2019 JANELLE ESPITIA APRN Ot J44 .9 CHRONIC OBSTRUCTIVE PULMONARY DISEASE, U 10/01/2019 JANELLE ESPITIA APRN Ot K21 .9 GASTRO-ESOPHAGEAL REFLUX DISEASE WITHOUT 10/01/2019 JANELLE ESPITIA APRN Ot K58 .9 IRRITABLE BOWEL SYNDROME WITHOUT DIARRHE 10/01/2019 JANELLE ESPITIA APRN Ot M79 .7 FIBROMYALGIA 10/01/2019 JANELLE ESPITIA APRN Ot R10.33 PERIUMBILICAL PAIN 10/01/2019 JANELLE ESPITIA APRN Ot Z79.51 LONGTERM (CURRENT) USE OF INHALED STERO 10/01/2019 JANELLE ESPITIA APRN Ot Z79.52 STUDY MANAGER (CURRENT) USE OF SYSTEMIC STER 10/01/2019 JANELLE ESPITIA APRN Ot Z79.84 STUDY MANAGER (CURRENT) USE OF ORAL HYPOGLYC 10/01/2019 JANELLE ESPITIA APRN Ot Z87.440 PERSONAL HISTORY OF URINARY (TRACT) INFE 10/01/2019 JANELLE ESPITIA APRN Ot Z87.891 PERSONAL HISTORY OF NICOTINE DEPENDENCE 10/01/2019 JANELLE ESPITIA APRN Ot Z88 .0 ALLERGY STATUS TO PENICILLIN 10/01/2019 JANELLE ESPITIA APRN Ot Z88 .1 ALLERGY STATUS TO OTHER ANTIBIOTIC AGENT 10/01/2019 JANELLE ESPITIA APRN Ot Z88 .8 ALLERGY STATUS TO OT DRUG/MEDS/BIOL SUB 10/01/2019 JANELLE ESPITIA APRN Ot Z90.710 ACQUIRED ABSENCE OF BOTH CERVIX AND UTER 10/01/2019 JANELLE ESPITIA APRN Ot Z91.041 RADIOGRAPHIC DYE ALLERGY STATUS 10/01/2019 JANELLE ESPITIA APRN Ot Z96.652 PRESENCE OF LEFT ARTIFICIAL KNEE JOINT 10/01/2019 JANELLE ESPITIA APRN Ot Z99.89 DEPENDENCE ON OTHER ENABLING MACHINES AN 11/10/2019 JANELLE ESPITIA APRN Ot E11 .9 TYPE 2 DIABETES MELLITUS WITHOUT COMPLIC 11/10/2019 JANELLE ESPITIA APRN Ot F31 .9 BIPOLAR DISORDER, UNSPECIFIED 11/10/2019 JANELLE ESPITIA APRN Ot F41 .9 ANXIETY DISORDER, UNSPECIFIED 11/10/2019 JANELLE ESPITIA APRN Ot G89.29 OTHER CHRONIC PAIN 11/10/2019 JANELLE ESPITIA APRN Ot J11 .1 FLU DUE TO UNIDENTIFIED INFLUENZA VIRUS 11/10/2019 JANELLE ESPITIA APRN Ot J44 .9 CHRONIC OBSTRUCTIVE PULMONARY DISEASE, U 11/10/2019 JANELLE ESPITIA APRN Ot K21 .9 GASTRO-ESOPHAGEAL REFLUX DISEASE WITHOUT 11/10/2019 JANELLE ESPITIA APRN Ot K58 .9 IRRITABLE BOWEL SYNDROME WITHOUT DIARRHE 11/10/2019 JANELLE ESPITIA APRN Ot M54 .9 DORSALGIA, UNSPECIFIED 11/10/2019 JANELLE ESPITIA APRN Ot M79 .7 FIBROMYALGIA 11/10/2019 JANELLE ESPITIA APRN Ot R05 COUGH 11/10/2019 JANELLE ESPITIA APRN Ot Z79.84 STUDY MANAGER (CURRENT) USE OF ORAL HYPOGLYC 11/10/2019 JANELLE ESPITIA APRN Ot Z87.891 PERSONAL HISTORY OF NICOTINE DEPENDENCE 11/10/2019 JANELLE ESPITIA APRN Ot Z88 .0 ALLERGY STATUS TO PENICILLIN 11/10/2019 JANELLE ESPITIA APRN Ot Z88 .1 ALLERGY STATUS TO OTHER ANTIBIOTIC AGENT 11/10/2019 JANELLE ESPITIA APRN Ot Z88 .8 ALLERGY STATUS TO OTH DRUG/MEDS/BIOL SUB 11/10/2019 JANELLE ESPITIA APRN Ot Z91.041 RADIOGRAPHIC DYE ALLERGY STATUS 11/15/2019 JANELLE ESPITIA APRN Ot E11 .9 TYPE 2 DIABETES MELLITUS WITHOUT COMPLIC 11/15/2019 JANELLE ESPITIA APRN Ot F31 .9 BIPOLAR DISORDER, UNSPECIFIED 11/15/2019 JANELLE ESPITIA APRN Ot F41 .9 ANXIETY DISORDER, UNSPECIFIED 11/15/2019 JANELLE ESPITIA APRN Ot G89.29 OTHER CHRONIC PAIN 11/15/2019 JANELLE ESPITIA APRN Ot J11 .1 FLU DUE TO UNIDENTIFIED INFLUENZA VIRUS 11/15/2019 JANELLE ESPITIA APRN Ot J44 .9 CHRONIC OBSTRUCTIVE PULMONARY DISEASE, U 11/15/2019 JANELLE ESPITIA APRN Ot K21 .9 GASTRO-ESOPHAGEAL REFLUX DISEASE WITHOUT 11/15/2019 JANELLE ESPITIA APRN Ot K58 .9 IRRITABLE BOWEL SYNDROME WITHOUT DIARRHE 11/15/2019 JANELLE ESPITIA APRN Ot M54 .9 DORSALGIA, UNSPECIFIED 11/15/2019 JANELLE ESPITIA APRN Ot M79 .7 FIBROMYALGIA 11/15/2019 JANELLE ESPITIA APRN Ot R05 COUGH 11/15/2019 JANELLE ESPITIA APRN Ot Z79.84 STUDY MANAGER (CURRENT) USE OF ORAL HYPOGLYC 11/15/2019 JANELLE ESPITIA APRN Ot Z87.891 PERSONAL HISTORY OF NICOTINE DEPENDENCE 11/15/2019 JANELLE ESPITIA APRN Ot Z88 .0 ALLERGY STATUS TO PENICILLIN 11/15/2019 JANELLE ESPITIA APRN Ot Z88 .1 ALLERGY STATUS TO OTHER ANTIBIOTIC AGENT 11/15/2019 JANELLE ESPITIA APRN Ot Z88 .8 ALLERGY STATUS TO OTH DRUG/MEDS/BIOL SUB 11/15/2019 JANELLE ESPITIA APRN Ot Z91.041 RADIOGRAPHIC DYE ALLERGY STATUS 11/17/2019 JANELLE ESPITIA APRN Ot E11 .9 TYPE 2 DIABETES MELLITUS WITHOUT COMPLIC 11/17/2019 JANELLE ESPITIA APRN Ot F31 .9 BIPOLAR DISORDER, UNSPECIFIED 11/17/2019 JANELLE ESPITIA APRN Ot F41 .9 ANXIETY DISORDER, UNSPECIFIED 11/17/2019 JANELLE ESPITIA APRN Ot G89.29 OTHER CHRONIC PAIN 11/17/2019 JANELLE ESPITIA APRN Ot J11 .1 FLU DUE TO UNIDENTIFIED INFLUENZA VIRUS 11/17/2019 JANELLE ESPITIA APRN Ot J44 .9 CHRONIC OBSTRUCTIVE PULMONARY DISEASE, U 11/17/2019 JANELLE ESPITIA APRN Ot K21 .9 GASTRO-ESOPHAGEAL REFLUX DISEASE WITHOUT 11/17/2019 JANELLE ESPITIA APRN Ot K58 .9 IRRITABLE BOWEL SYNDROME WITHOUT DIARRHE 11/17/2019 JANELLE ESPITIA APRN Ot M54 .9 DORSALGIA, UNSPECIFIED 11/17/2019 JANELLE ESPITIA APRN Ot M79 .7 FIBROMYALGIA 11/17/2019 JANELLE ESPITIA APRN Ot R05 COUGH 11/17/2019 JANELLE ESPITIA APRN Ot Z79.84 LONGTERM (CURRENT) USE OF ORAL HYPOGLYC 11/17/2019 JANELLE ESPITIA APRN Ot Z87.891 PERSONAL HISTORY OF NICOTINE DEPENDENCE 11/17/2019 JANELLE ESPITIA APRN Ot Z88 .0 ALLERGY STATUS TO PENICILLIN 11/17/2019 JANELLE ESPITIA APRN Ot Z88 .1 ALLERGY STATUS TO OTHER ANTIBIOTIC AGENT 11/17/2019 JANELLE ESPITIA APRN Ot Z88 .8 ALLERGY STATUS TO OTH DRUG/MEDS/BIOL SUB 11/17/2019 JANELLE ESPITIA APRN Ot Z91.041 RADIOGRAPHIC DYE ALLERGY STATUS Procedures Code Description Performed By Per formed On [id number] RE PLACE OF L KNEE JT WITH SYNTH SUB, ANGEL 07/15/2018 Results Test Result Range Methicillin resistant Staphylococcus aur eus (MRSA) screening culture - 05/01/16 13:30 Methicillin resistant Staphylococcus aureus (MRSA) scr eening culture NEG NRG Capillary blood glucose measurement by g lucometer (mass/volume) - 05/08/16 10:13 Capillary blood glucose measurement by glucometer (mas s/volume) 149 mg/dL 70-110 Complete urinalysis with reflex to cultu re - 06/09/16 16:24 Urine color determination YELLOW NRG Urine clarity determination SLIGHTLY CLOUDY NRG Urine pH measurement by test strip 5 5-9 Specific gravity of urine by test strip 1.030 1.016-1.022 Urine protein assay by test strip, semi-quantitative 2+ NEGATIVE Urine glucose detection by automated test strip NE GATIVE NEGATIVE Erythrocytes detection in urine sediment by light micr oscopy NEGATIVE NEGATIVE Urine ketones detection by automated test strip NE GATIVE NEGATIVE Urine nitrite detection by test strip POSITIVE NEGATIVE Urine total bilirubin detection by test strip NEGA TIVE NEGATIVE Urine urobilinogen measurement by automated test strip (mass/volume) NORMAL NORMAL Urine leukocyte esterase detection by dipstick 1+ NEGATIVE Automated urine sediment erythrocyte cou nt by microscopy (number/high power field) NONE NRG Automated urine sediment leukocyte count by microscopy (number/high power field) [HPF] NRG Bacteria detection in urine sediment by light microsco py FEW NRG Squamous epithelial cells detection in u rine sediment by light microscopy 5-10 NRG Crystals detection in urine sediment by light microsco py PRESENT NRG Casts detection in urine sediment by light microscopy NONE NRG Mucus detection in urine sediment by light microscopy NEGATIVE NRG Complete urinalysis with reflex to culture YES NRG Uric acid crystals detection in urine sediment by ligh t microscopy LARGE NRG Bacterial urine culture - 06/09/16 16:24 Bacterial urine culture [id number] NRG COLONY COUNT <10,000 NRG FTX;REPORTABLE SENSITIVITY REPORTED AT 1307, 9-- 16 NRG URINE CULTURE RESULTS PLUS NRG Bacterial susceptibility panel - 6 16:24 Gentamicin susceptibility test by minimum inhibitory c oncentration S NRG Vancomycin susceptibility test by minimum inhibitory c oncentration <= NRG Levofloxacin susceptibility test by minimum inhibitory concentration 0.5 NRG Tetracycline susceptibility test by minimum inhibitory concentration >= NRG Ampicillin susceptibility test by minimum inhibitory c oncentration <= NRG Nitrofurantoin susceptibility test by mi nimum inhibitory concentration 128 NRG Complete blood count (CBC) with automate d white blood cell (WBC) differential - 06/09/16 18:13 Blood leukocytes automated count (number/volume) 12.6 10*3/uL 4.3-11.0 Blood erythrocytes automated count (number/volume) 5.06 10*6/uL 4.35-5.85 Venous blood hemoglobin measurement (mass/volume) 14.3 g/dL 11.5-16.0 Blood hematocrit (volume fraction) 42 % 35-52 Automated erythrocyte mean corpuscular volume 82 [ foz_us] 80-99 Automated erythrocyte mean corpuscular h emoglobin (mass per erythrocyte) 28 pg 25-34 Automated erythrocyte mean corpuscular h emoglobin concentration measurement (mass/volume) 35 g/dL 32-36 Automated erythrocyte distribution width ratio 13. 6 % 10.0- 14.5 Automated blood platelet count (count/volume) 214 10*3/uL [...] 10*3 1.0-4.0 Blood monocytes automated count (number/volume) 0. 6 10*3 0.0-1.0 Automated eosinophil count 0.2 10*3/uL 0 .0-0.3 Automated blood basophil count (count/volume) 0.0 10*3/uL 0.0-0.1 Comprehensive metabolic panel - 06/09/16 18:13 Serum or plasma sodium measurement (moles/volume) 135 mmol/L 135-145 Serum or plasma potassium measurement (moles/volume) 4.3 mmol/L 3.6-5.0 Serum or plasma chloride measurement (moles/volume) 101 mmol/L 98-107 Carbon dioxide 21 mmol/L 21-32 Serum or plasma anion gap determination (moles/volume) 13 mmol/L 5-14 Serum or plasma urea nitrogen measurement (mass/volume ) 14 mg/dL 7-18 Serum or plasma creatinine measurement (mass/volume) 1.16 mg/dL 0.60-1.30 Serum or plasma urea nitrogen/creatinine mass ratio 12 NRG Serum or plasma creatinine measurement w ith calculation of estimated glomerular filtration rate 49 NRG Serum or plasma glucose measurement (mass/volume) 154 mg/dL 70-105 Serum or plasma calcium measurement (mass/volume) 9.7 mg/dL 8.5-10.1 Serum or plasma total bilirubin measurement (mass/volu me) 0.3 mg/dL 0.1-1.0 Serum or plasma alkaline phosphatase tiana surement (enzymatic activity/volume) 135 U/L 40-136 Serum or plasma aspartate aminotransfera se measurement (enzymatic activity/volume) 31 U/L 5-34 Serum or plasma alanine aminotransferase measurement (enzymatic activity/volume) 39 U/L 0-55 Serum or plasma protein measurement (mass/volume) 7.8 g/dL 6.4-8.2 Serum or plasma albumin measurement (mass/volume) 4.3 g/dL 3.2-4.5 Complete blood count (CBC) with automate d white blood cell (WBC) differential - 06/18/16 15:30 Blood leukocytes automated count (number/volume) 11.8 10*3/uL 4.3-11.0 Blood erythrocytes automated count (number/volume) 4.80 10*6/uL 4.35-5.85 Venous blood hemoglobin measurement (mass/volume) 13.6 g/dL 11.5-16.0 Blood hematocrit (volume fraction) 40 % 35-52 Automated erythrocyte mean corpuscular volume 84 [ foz_us] 80-99 Automated erythrocyte mean corpuscular h emoglobin (mass per erythrocyte) 28 pg 25-34 Automated erythrocyte mean corpuscular h emoglobin concentration measurement (mass/volume) 34 g/dL 32-36 Automated erythrocyte distribution width ratio 13. 6 % 10.0- 14.5 Automated blood platelet count (count/volume) 206 10*3/uL [...] 10*3 1.0-4.0 Blood monocytes automated count (number/volume) 0. 7 10*3 0.0-1.0 Automated eosinophil count 0.2 10*3/uL 0 .0-0.3 Automated blood basophil count (count/volume) 0.0 10*3/uL 0.0-0.1 Comprehensive metabolic panel - 06/18/16 15:30 Serum or plasma sodium measurement (moles/volume) 140 mmol/L 135-145 Serum or plasma potassium measurement (moles/volume) 3.8 mmol/L 3.6-5.0 Serum or plasma chloride measurement (moles/volume) 105 mmol/L 98-107 Carbon dioxide 26 mmol/L 21-32 Serum or plasma anion gap determination (moles/volume) 9 mmol/L 5-14 Serum or plasma urea nitrogen measurement (mass/volume ) 12 mg/dL 7-18 Serum or plasma creatinine measurement (mass/volume) 0.94 mg/dL 0.60-1.30 Serum or plasma urea nitrogen/creatinine mass ratio 13 NRG Serum or plasma creatinine measurement w ith calculation of estimated glomerular filtration rate > NRG Serum or plasma glucose measurement (mass/volume) 187 mg/dL 70-105 Serum or plasma calcium measurement (mass/volume) 9.7 mg/dL 8.5-10.1 Serum or plasma total bilirubin measurement (mass/volu me) 0.3 mg/dL 0.1-1.0 Serum or plasma alkaline phosphatase tiana surement (enzymatic activity/volume) 138 U/L 40-136 Serum or plasma aspartate aminotransfera se measurement (enzymatic activity/volume) 22 U/L 5-34 Serum or plasma alanine aminotransferase measurement (enzymatic activity/volume) 30 U/L 0-55 Serum or plasma protein measurement (mass/volume) 7.0 g/dL 6.4-8.2 Serum or plasma albumin measurement (mass/volume) 4.1 g/dL 3.2-4.5 Complete urinalysis with reflex to cultu re - 06/18/16 15:30 Urine color determination YELLOW NRG Urine clarity determination CLEAR NR G Urine pH measurement by test strip 5 5-9 Specific gravity of urine by test strip 1.030 1.016-1.022 Urine protein assay by test strip, semi-quantitative 2+ NEGATIVE Urine glucose detection by automated test strip 2+ NEGATIVE Erythrocytes detection in urine sediment by light micr oscopy NEGATIVE NEGATIVE Urine ketones detection by automated test strip 1+ NEGATIVE Urine nitrite detection by test strip NEGATIVE NEGATIVE Urine total bilirubin detection by test strip 1+ NEGATIVE Urine urobilinogen measurement by automated test strip (mass/volume) 1 mg/dL NORMAL Urine leukocyte esterase detection by dipstick 1+ NEGATIVE Automated urine sediment erythrocyte cou nt by microscopy (number/high power field) NONE NRG Automated urine sediment leukocyte count by microscopy (number/high power field) [HPF] NRG Bacteria detection in urine sediment by light microsco py FEW NRG Squamous epithelial cells detection in u rine sediment by light microscopy 10-25 NRG Crystals detection in urine sediment by light microsco py PRESENT NRG Casts detection in urine sediment by light microscopy NONE NRG Mucus detection in urine sediment by light microscopy MODERATE NRG Complete urinalysis with reflex to culture NO NRG Calcium oxalate crystals detection in ur ine sediment by light microscopy FEW NRG Complete blood count (CBC) with automate d white blood cell (WBC) differential - 07/02/16 14:40 Blood leukocytes automated count (number/volume) 8.0 10*3/uL 4.3-11.0 Blood erythrocytes automated count (number/volume) 4.63 10*6/uL 4.35-5.85 Venous blood hemoglobin measurement (mass/volume) 13.3 g/dL 11.5-16.0 Blood hematocrit (volume fraction) 39 % 35-52 Automated erythrocyte mean corpuscular volume 84 [ foz_us] 80-99 Automated erythrocyte mean corpuscular h emoglobin (mass per erythrocyte) 29 pg 25-34 Automated erythrocyte mean corpuscular h emoglobin concentration measurement (mass/volume) 34 g/dL 32-36 Automated erythrocyte distribution width ratio 13. 7 % 10.0- 14.5 Automated blood platelet count (count/volume) 202 10*3/uL [...] 10*3 1.0-4.0 Blood monocytes automated count (number/volume) 0. 5 10*3 0.0-1.0 Automated eosinophil count 0.2 10*3/uL 0 .0-0.3 Automated blood basophil count (count/volume) 0.0 10*3/uL 0.0-0.1 Complete urinalysis with reflex to cultu re - 07/02/16 14:40 Urine color determination YELLOW NRG Urine clarity determination CLEAR NR G Urine pH measurement by test strip 6.5 5-9 Specific gravity of urine by test strip 1.015 1.016-1.022 Urine protein assay by test strip, semi-quantitative NEGATIVE NEGATIVE Urine glucose detection by automated test strip NE GATIVE NEGATIVE Erythrocytes detection in urine sediment by light micr oscopy NEGATIVE NEGATIVE Urine ketones detection by automated test strip NE GATIVE NEGATIVE Urine nitrite detection by test strip NEGATIVE NEGATIVE Urine total bilirubin detection by test strip NEGA TIVE NEGATIVE Urine urobilinogen measurement by automated test strip (mass/volume) 1 mg/dL NORMAL Urine leukocyte esterase detection by dipstick 1+ NEGATIVE Automated urine sediment erythrocyte cou nt by microscopy (number/high power field) NONE NRG Automated urine sediment leukocyte count by microscopy (number/high power field) [HPF] NRG Bacteria detection in urine sediment by light microsco py FEW NRG Squamous epithelial cells detection in u rine sediment by light microscopy 2-5 NRG Crystals detection in urine sediment by light microsco py NONE NRG Casts detection in urine sediment [...] 5-14 Serum or plasma urea nitrogen measurement (mass/volume ) 11 mg/dL 7-18 Serum or plasma creatinine measurement (mass/volume) 0.82 mg/dL 0.60-1.30 Serum or plasma urea nitrogen/creatinine mass ratio 13 NRG Serum or plasma creatinine measurement w ith calculation of estimated glomerular filtration rate > NRG Serum or plasma glucose measurement (mass/volume) 150 mg/dL 70-105 Serum or plasma calcium measurement (mass/volume) 9.4 mg/dL 8.5-10.1 Serum or plasma total bilirubin measurement (mass/volu me) 0.4 mg/dL 0.1-1.0 Serum or plasma alkaline phosphatase tiana surement (enzymatic activity/volume) 130 U/L 40-136 Serum or plasma aspartate aminotransfera se measurement (enzymatic activity/volume) 26 U/L 5-34 Serum or plasma alanine aminotransferase measurement (enzymatic activity/volume) 30 U/L 0-55 Serum or plasma protein measurement (mass/volume) 7.1 g/dL 6.4-8.2 Serum or plasma albumin measurement (mass/volume) 4.0 g/dL 3.2-4.5 Serum or plasma C reactive protein measu rement (mass/volume) - 07/02/16 14:40 Serum or plasma C reactive protein measurement (mass/v olume) 1.15 mg/dL 0.00-0.50 Complete blood count (CBC) with automate d white blood cell (WBC) differential - 08/03/16 14:22 Blood leukocytes automated count (number/volume) 8.4 10*3/uL 4.3-11.0 Blood erythrocytes automated count (number/volume) 4.45 10*6/uL 4.35-5.85 Venous blood hemoglobin measurement (mass/volume) 12.7 g/dL 11.5-16.0 Blood hematocrit (volume fraction) 37 % 35-52 Automated erythrocyte mean corpuscular volume 83 [ foz_us] 80-99 Automated erythrocyte mean corpuscular h emoglobin (mass per erythrocyte) 29 pg 25-34 Automated erythrocyte mean corpuscular h emoglobin concentration measurement (mass/volume) 34 g/dL 32-36 Automated erythrocyte distribution width ratio 13. 6 % 10.0- 14.5 Automated blood platelet count (count/volume) 192 10*3/uL [...] 10*3 1.0-4.0 Blood monocytes automated count (number/volume) 0. 5 10*3 0.0-1.0 Automated eosinophil count 0.2 10*3/uL 0 .0-0.3 Automated blood basophil count (count/volume) 0.0 10*3/uL 0.0-0.1 Complete blood count (CBC) with automate d white blood cell (WBC) differential - 08/15/16 11:03 Blood leukocytes automated count (number/volume) 11.9 10*3/uL 4.3-11.0 Blood erythrocytes automated count (number/volume) 4.78 10*6/uL 4.35-5.85 Venous blood hemoglobin measurement (mass/volume) 13.6 g/dL 11.5-16.0 Blood hematocrit (volume fraction) 40 % 35-52 Automated erythrocyte mean corpuscular volume 83 [ foz_us] 80-99 Automated erythrocyte mean corpuscular h emoglobin (mass per erythrocyte) 29 pg 25-34 Automated erythrocyte mean corpuscular h emoglobin concentration measurement (mass/volume) 34 g/dL 32-36 Automated erythrocyte distribution width ratio 14. 2 % 10.0- 14.5 Automated blood platelet count (count/volume) 204 10*3/uL [...] 10*3 1.0-4.0 Blood monocytes automated count (number/volume) 0. 3 10*3 0.0-1.0 Automated eosinophil count 0.0 10*3/uL 0 .0-0.3 Automated blood basophil count (count/volume) 0.0 10*3/uL 0.0-0.1 Serum or plasma troponin i.cardiac measu rement (mass/volume) - 08/15/16 11:03 Serum or plasma troponin i.cardiac measurement (mass/v olume) < ng/mL <0.30 Streptococcus pyogenes antigen detection - 09/13/16 05:00 Streptococcus pyogenes antigen detection POSITIVE NEGATIVE Complete blood count (CBC) with automate d white blood cell (WBC) differential - 09/13/16 05:10 Blood leukocytes automated count (number/volume) 10.7 10*3/uL 4.3-11.0 Blood erythrocytes automated count (number/volume) 4.59 10*6/uL 4.35-5.85 Venous blood hemoglobin measurement (mass/volume) 13.0 g/dL 11.5-16.0 Blood hematocrit (volume fraction) 39 % 35-52 Automated erythrocyte mean corpuscular volume 84 [ foz_us] 80-99 Automated erythrocyte mean corpuscular h emoglobin (mass per erythrocyte) 28 pg 25-34 Automated erythrocyte mean corpuscular h emoglobin concentration measurement (mass/volume) 34 g/dL 32-36 Automated erythrocyte distribution width ratio 13. 7 % 10.0- 14.5 Automated blood platelet count (count/volume) 165 10*3/uL [...] 10*3 1.0-4.0 Blood monocytes automated count (number/volume) 0. 5 10*3 0.0-1.0 Automated eosinophil count 0.1 10*3/uL 0 .0-0.3 Automated blood basophil count (count/volume) 0.0 10*3/uL 0.0-0.1 Comprehensive metabolic panel - 09/13/16 05:10 Serum or plasma sodium measurement (moles/volume) 135 mmol/L 135-145 Serum or plasma potassium measurement (moles/volume) 4.3 mmol/L 3.6-5.0 Serum or plasma chloride measurement (moles/volume) 103 mmol/L 98-107 Carbon dioxide 22 mmol/L 21-32 Serum or plasma anion gap determination (moles/volume) 10 mmol/L 5-14 Serum or plasma urea nitrogen measurement (mass/volume ) 12 mg/dL 7-18 Serum or plasma creatinine measurement (mass/volume) 0.79 mg/dL 0.60-1.30 Serum or plasma urea nitrogen/creatinine mass ratio 15 NRG Serum or plasma creatinine measurement w ith calculation of estimated glomerular filtration rate > NRG Serum or plasma glucose measurement (mass/volume) 170 mg/dL 70-105 Serum or plasma calcium measurement (mass/volume) 9.0 mg/dL 8.5-10.1 Serum or plasma total bilirubin measurement (mass/volu me) 0.6 mg/dL 0.1-1.0 Serum or plasma alkaline phosphatase tiana surement (enzymatic activity/volume) 114 U/L 40-136 Serum or plasma aspartate aminotransfera se measurement (enzymatic activity/volume) 23 U/L 5-34 Serum or plasma alanine aminotransferase measurement (enzymatic activity/volume) 30 U/L 0-55 Serum or plasma protein measurement (mass/volume) 7.0 g/dL 6.4-8.2 Serum or plasma albumin measurement (mass/volume) 4.0 g/dL 3.2-4.5 Lipase - 09/13/16 05:10 Lipase 50 U/L 8-78 Complete urinalysis with reflex to cultu re - 09/13/16 07:42 Urine color determination YELLOW NRG Urine clarity determination CLEAR NR G Urine pH measurement by test strip 6.5 5-9 Specific gravity of urine by test strip 1.010 1.016-1.022 Urine protein assay by test strip, semi-quantitative NEGATIVE NEGATIVE Urine glucose detection by automated test strip NE GATIVE NEGATIVE Erythrocytes detection in urine sediment by light micr oscopy NEGATIVE NEGATIVE Urine ketones detection by automated test strip NE GATIVE NEGATIVE Urine nitrite detection by test strip NEGATIVE NEGATIVE Urine total bilirubin detection by test strip NEGA TIVE NEGATIVE Urine urobilinogen measurement by automated test strip (mass/volume) NORMAL NORMAL Urine leukocyte esterase detection by dipstick 1+ NEGATIVE Automated urine sediment erythrocyte cou nt by microscopy (number/high power field) NONE NRG Automated urine sediment leukocyte count by microscopy (number/high power field) [HPF] NRG Bacteria detection in urine sediment by light microsco py TRACE NRG Squamous epithelial cells detection in u rine sediment by light microscopy 2-5 NRG Crystals detection in urine sediment by light microsco py NONE NRG Casts detection in urine sediment by light microscopy NONE NRG Mucus detection in urine sediment by light microscopy NEGATIVE NRG Complete urinalysis with reflex to culture NO NRG Methicillin resistant Staphylococcus aur eus (MRSA) screening culture - 09/16/16 14:08 Methicillin resistant Staphylococcus aureus (MRSA) scr eening culture NEG NRG Urine beta human chorionic gonadotropin (hCG) measurement - 09/19/16 11:25 Urine beta human chorionic gonadotropin (hCG) measurem ent NEGATIVE NEGATIVE Capillary blood glucose measurement by g lucometer (mass/volume) - 09/19/16 11:34 Capillary blood glucose measurement by glucometer (mas s/volume) 123 mg/dL 70-110 Complete urinalysis with reflex to cultu re - 10/16/16 16:50 Urine color determination YELLOW NRG Urine clarity determination SLIGHTLY CLOUDY NRG Urine pH measurement by test strip 5 5-9 Specific gravity of urine by test strip 1.030 1.016-1.022 Urine protein assay by test strip, semi-quantitative 1+ NEGATIVE Urine glucose detection by automated test strip NE GATIVE NEGATIVE Erythrocytes detection in urine sediment by light micr oscopy NEGATIVE NEGATIVE Urine ketones detection by automated test strip NE GATIVE NEGATIVE Urine nitrite detection by test strip NEGATIVE NEGATIVE Urine total bilirubin detection by test strip 1+ NEGATIVE Urine urobilinogen measurement by automated test strip (mass/volume) NORMAL NORMAL Urine leukocyte esterase detection by dipstick 1+ NEGATIVE Automated urine sediment erythrocyte cou nt by microscopy (number/high power field) NONE NRG Automated urine sediment leukocyte count by microscopy (number/high power field) [HPF] NRG Bacteria detection in urine sediment by light microsco py FEW NRG Squamous epithelial cells detection in u rine sediment by light microscopy 25-50 NRG Crystals detection in urine sediment by light microsco py NONE NRG Casts detection in urine sediment [...] 5-14 Serum or plasma urea nitrogen measurement (mass/volume ) 14 mg/dL 7-18 Serum or plasma creatinine measurement (mass/volume) 0.90 mg/dL 0.60-1.30 Serum or plasma urea nitrogen/creatinine mass ratio 16 NRG Serum or plasma creatinine measurement w ith calculation of estimated glomerular filtration rate > NRG Serum or plasma glucose measurement (mass/volume) 145 mg/dL 70-105 Serum or plasma calcium measurement (mass/volume) 9.5 mg/dL 8.5-10.1 Serum or plasma total bilirubin measurement (mass/volu me) 0.4 mg/dL 0.1-1.0 Serum or plasma alkaline phosphatase tiana surement (enzymatic activity/volume) 105 U/L 40-136 Serum or plasma aspartate aminotransfera se measurement (enzymatic activity/volume) 29 U/L 5-34 Serum or plasma alanine aminotransferase measurement (enzymatic activity/volume) 33 U/L 0-55 Serum or plasma protein measurement (mass/volume) 7.8 g/dL 6.4-8.2 Serum or plasma albumin measurement (mass/volume) 4.0 g/dL 3.2-4.5 Complete blood count (CBC) with automate d white blood cell (WBC) differential - 10/16/16 17:05 Blood leukocytes automated count (number/volume) 10.8 10*3/uL 4.3-11.0 Blood erythrocytes automated count (number/volume) 4.86 10*6/uL 4.35-5.85 Venous blood hemoglobin measurement (mass/volume) 13.8 g/dL 11.5-16.0 Blood hematocrit (volume fraction) 40 % 35-52 Automated erythrocyte mean corpuscular volume 82 [ foz_us] 80-99 Automated erythrocyte mean corpuscular h emoglobin (mass per erythrocyte) 28 pg 25-34 Automated erythrocyte mean corpuscular h emoglobin concentration measurement (mass/volume) 35 g/dL 32-36 Automated erythrocyte distribution width ratio 14. 0 % 10.0- 14.5 Automated blood platelet count (count/volume) 175 10*3/uL [...] 10*3 1.0-4.0 Blood monocytes automated count (number/volume) 0. 6 10*3 0.0-1.0 Automated eosinophil count 0.2 10*3/uL 0 .0-0.3 Automated blood basophil count (count/volume) 0.0 10*3/uL 0.0-0.1 Serum or plasma C reactive protein measu rement (mass/volume) - 10/16/16 17:05 Serum or plasma C reactive protein measurement (mass/v olume) 0.59 mg/dL 0.00-0.50 Complete blood count (CBC) with automate d white blood cell (WBC) differential - 11/03/16 09:54 Blood leukocytes automated count (number/volume) 8.3 10*3/uL 4.3-11.0 Blood erythrocytes automated count (number/volume) 4.44 10*6/uL 4.35-5.85 Venous blood hemoglobin measurement (mass/volume) 12.5 g/dL 11.5-16.0 Blood hematocrit (volume fraction) 37 % 35-52 Automated erythrocyte mean corpuscular volume 84 [ foz_us] 80-99 Automated erythrocyte mean corpuscular h emoglobin (mass per erythrocyte) 28 pg 25-34 Automated erythrocyte mean corpuscular h emoglobin concentration measurement (mass/volume) 34 g/dL 32-36 Automated erythrocyte distribution width ratio 13. 8 % 10.0- 14.5 Automated blood platelet count (count/volume) 184 10*3/uL [...] 10*3 1.0-4.0 Blood monocytes automated count (number/volume) 0. 3 10*3 0.0-1.0 Automated eosinophil count 0.2 10*3/uL 0 .0-0.3 Automated blood basophil count (count/volume) 0.0 10*3/uL 0.0-0.1 Comprehensive metabolic panel - 11/03/16 09:54 Serum or plasma sodium measurement (moles/volume) 136 mmol/L 135-145 Serum or plasma potassium measurement (moles/volume) 3.9 mmol/L 3.6-5.0 Serum or plasma chloride measurement (moles/volume) 102 mmol/L 98-107 Carbon dioxide 21 mmol/L 21-32 Serum or plasma anion gap determination (moles/volume) 13 mmol/L 5-14 Serum or plasma urea nitrogen measurement (mass/volume ) 11 mg/dL 7-18 Serum or plasma creatinine measurement (mass/volume) 0.83 mg/dL 0.60-1.30 Serum or plasma urea nitrogen/creatinine mass ratio 13 NRG Serum or plasma creatinine measurement w ith calculation of estimated glomerular filtration rate > NRG Serum or plasma glucose measurement (mass/volume) 131 mg/dL 70-105 Serum or plasma calcium measurement (mass/volume) 9.3 mg/dL 8.5-10.1 Serum or plasma total bilirubin measurement (mass/volu me) 0.5 mg/dL 0.1-1.0 Serum or plasma alkaline phosphatase tiana surement (enzymatic activity/volume) 95 U/L 40-136 Serum or plasma aspartate aminotransfera se measurement (enzymatic activity/volume) 27 U/L 5-34 Serum or plasma alanine aminotransferase measurement (enzymatic activity/volume) 29 U/L 0-55 Serum or plasma protein measurement (mass/volume) 7.8 g/dL 6.4-8.2 Serum or plasma albumin measurement (mass/volume) 4.0 g/dL 3.2-4.5 Serum or plasma troponin i.cardiac measu rement (mass/volume) - 11/03/16 09:54 Serum or plasma troponin i.cardiac measurement (mass/v olume) < ng/mL <0.30 Hemoglobin A1c - 11/03/16 09:54 Hemoglobin A1c 6.8 % 4.5-6.2 Complete urinalysis with reflex to cultu re - 11/03/16 10:16 Urine color determination YELLOW NRG Urine clarity determination SLIGHTLY CLOUDY NRG Urine pH measurement by test strip 5 5-9 Specific gravity of urine by test strip 1.025 1.016-1.022 Urine protein assay by test strip, semi-quantitative NEGATIVE NEGATIVE Urine glucose detection by automated test strip NE GATIVE NEGATIVE Erythrocytes detection in urine sediment by light micr oscopy NEGATIVE NEGATIVE Urine ketones detection by automated test strip NE GATIVE NEGATIVE Urine nitrite detection by test strip NEGATIVE NEGATIVE Urine total bilirubin detection by test strip NEGA TIVE NEGATIVE Urine urobilinogen measurement by automated test strip (mass/volume) NORMAL NORMAL Urine leukocyte esterase detection by dipstick 1+ NEGATIVE Automated urine sediment erythrocyte cou nt by microscopy (number/high power field) NONE NRG Automated urine sediment leukocyte count by microscopy (number/high power field) [HPF] NRG Bacteria detection in urine sediment by light microsco py MODERATE NRG Squamous epithelial cells detection in u rine sediment by light microscopy 2-5 NRG Crystals detection in urine sediment by light microsco py NONE NRG Casts detection in urine sediment by light microscopy NONE NRG Mucus detection in urine sediment by light microscopy SMALL NRG Complete urinalysis with reflex to culture YES NRG Bacterial urine culture - 11/03/16 10:16 URINE CULTURE RESULTS <10,000/ML NRG Streptococcus pyogenes antigen detection - 11/03/16 10:21 Streptococcus pyogenes antigen detection POSITIVE NEGATIVE Methicillin resistant Staphylococcus aur eus (MRSA) screening culture - 02/28/17 10:50 MRSA SCREEN RESULT MRSA ISOLATED NRG Capillary blood glucose measurement by g lucometer (mass/volume) - 03/05/17 08:56 Capillary blood glucose measurement by glucometer (mas s/volume) 133 mg/dL 70-110 Sputum Gram stain - 04/29/17 15:46 GRAM STAIN SPUTUM AND MIXED BACTERIAL TIMOTHY NRG Bacterial sputum culture - 04/29/17 15:4 6 Bacterial sputum culture NORMAL NRG Complete blood count (CBC) with automate d white blood cell (WBC) differential - 04/30/17 15:00 Blood leukocytes automated count (number/volume) 10.5 10*3/uL 4.3-11.0 Blood erythrocytes automated count (number/volume) 4.83 10*6/uL 4.35-5.85 Venous blood hemoglobin measurement (mass/volume) 13.1 g/dL 11.5-16.0 Blood hematocrit (volume fraction) 40 % 35-52 Automated erythrocyte mean corpuscular volume 83 [ foz_us] 80-99 Automated erythrocyte mean corpuscular h emoglobin (mass per erythrocyte) 27 pg 25-34 Automated erythrocyte mean corpuscular h emoglobin concentration measurement (mass/volume) 33 g/dL 32-36 Automated erythrocyte distribution width ratio 14. 0 % 10.0- 14.5 Automated blood platelet count (count/volume) 195 10*3/uL [...] 10*3 1.0-4.0 Blood monocytes automated count (number/volume) 0. 5 10*3 0.0-1.0 Automated eosinophil count 0.1 10*3/uL 0 .0-0.3 Automated blood basophil count (count/volume) 0.0 10*3/uL 0.0-0.1 Influenza virus A and B antigen detectio n - 04/30/17 15:00 FLU RESULT NEGATIVE FOR INFLUENZA A AND B ANTIGENS BY [place] [facility] Comprehensive metabolic panel - 04/30/17 15:00 Serum or plasma sodium measurement (moles/volume) 138 mmol/L 135-145 Serum or plasma potassium measurement (moles/volume) 3.8 mmol/L 3.6-5.0 Serum or plasma chloride measurement (moles/volume) 102 mmol/L 98-107 Carbon dioxide 25 mmol/L 21-32 Serum or plasma anion gap determination (moles/volume) 11 mmol/L 5-14 Serum or plasma urea nitrogen measurement (mass/volume ) 10 mg/dL 7-18 Serum or plasma creatinine measurement (mass/volume) 0.82 mg/dL 0.60-1.30 Serum or plasma urea nitrogen/creatinine mass ratio 12 NRG Serum or plasma creatinine measurement w ith calculation of estimated glomerular filtration rate > NRG Serum or plasma glucose measurement (mass/volume) 152 mg/dL 70-105 Serum or plasma calcium measurement (mass/volume) 9.7 mg/dL 8.5-10.1 Serum or plasma total bilirubin measurement (mass/volu me) 0.5 mg/dL 0.1-1.0 Serum or plasma alkaline phosphatase tiana surement (enzymatic activity/volume) 105 U/L 40-136 Serum or plasma aspartate aminotransfera se measurement (enzymatic activity/volume) 18 U/L 5-34 Serum or plasma alanine aminotransferase measurement (enzymatic activity/volume) 29 U/L 0-55 Serum or plasma protein measurement (mass/volume) 7.4 g/dL 6.4-8.2 Serum or plasma albumin measurement (mass/volume) 4.0 g/dL 3.2-4.5 Magnesium - 04/30/17 15:00 Magnesium 1.6 mg/dL 1.8-2.4 Serum or plasma creatine kinase measurem ent (enzymatic activity/volume) - 04/30/17 15:00 Serum or plasma creatine kinase measurem ent (enzymatic activity/volume) 74 U/L 29-168 Serum or plasma C reactive protein measu rement (mass/volume) - 04/30/17 15:00 Serum or plasma C reactive protein measurement (mass/v olume) 3.45 mg/dL 0.00-0.50 A1C - 07/22/17 10:30 Hemoglobin A1c 6.4 % 4.8-5.6 Complete blood count (CBC) with automate d white blood cell (WBC) differential - 08/10/17 12:05 Blood leukocytes automated count (number/volume) 8.6 10*3/uL 4.3-11.0 Blood erythrocytes automated count (number/volume) 4.40 10*6/uL 4.35-5.85 Venous blood hemoglobin measurement (mass/volume) 12.0 g/dL 11.5-16.0 Blood hematocrit (volume fraction) 36 % 35-52 Automated erythrocyte mean corpuscular volume 82 [ foz_us] 80-99 Automated erythrocyte mean corpuscular h emoglobin (mass per erythrocyte) 27 pg 25-34 Automated erythrocyte mean corpuscular h emoglobin concentration measurement (mass/volume) 33 g/dL 32-36 Automated erythrocyte distribution width ratio 13. 8 % 10.0- 14.5 Automated blood platelet count (count/volume) 208 10*3/uL [...] 10*3 1.0-4.0 Blood monocytes automated count (number/volume) 0. 4 10*3 0.0-1.0 Automated eosinophil count 0.1 10*3/uL 0 .0-0.3 Automated blood basophil count (count/volume) 0.0 10*3/uL 0.0-0.1 Comprehensive metabolic panel - 08/10/17 12:05 Serum or plasma sodium measurement (moles/volume) 137 mmol/L 135-145 Serum or plasma potassium measurement (moles/volume) 3.9 mmol/L 3.6-5.0 Serum or plasma chloride measurement (moles/volume) 104 mmol/L 98-107 Carbon dioxide 23 mmol/L 21-32 Serum or plasma anion gap determination (moles/volume) 10 mmol/L 5-14 Serum or plasma urea nitrogen measurement (mass/volume ) 11 mg/dL 7-18 Serum or plasma creatinine measurement (mass/volume) 0.74 mg/dL 0.60-1.30 Serum or plasma urea nitrogen/creatinine mass ratio 15 NRG Serum or plasma creatinine measurement w ith calculation of estimated glomerular filtration rate > NRG Serum or plasma glucose measurement (mass/volume) 134 mg/dL 70-105 Serum or plasma calcium measurement (mass/volume) 8.9 mg/dL 8.5-10.1 Serum or plasma total bilirubin measurement (mass/volu me) 0.4 mg/dL 0.1-1.0 Serum or plasma alkaline phosphatase tiana surement (enzymatic activity/volume) 102 U/L 40-136 Serum or plasma aspartate aminotransfera se measurement (enzymatic activity/volume) 17 U/L 5-34 Serum or plasma alanine aminotransferase measurement (enzymatic activity/volume) 24 U/L 0-55 Serum or plasma protein measurement (mass/volume) 7.0 g/dL 6.4-8.2 Serum or plasma albumin measurement (mass/volume) 3.8 g/dL 3.2-4.5 Magnesium - 08/10/17 12:05 Magnesium 1.6 mg/dL 1.8-2.4 PT panel in platelet poor plasma by coag ulation assay - 08/10/17 12:05 Prothrombin time (PT) in platelet poor plasma by coagu lation assay 12.4 s 12.2-14.7 INR in platelet poor plasma or blood by coagulation as say 0.9 0.8-1.4 Activated partial thromboplastin time (a PTT) in platelet poor plasma bycoagulation assay - 08/10/17 12:05 Activated partial thromboplastin time (a PTT) in platelet poor plasma bycoagulation assay 27 s 24-35 Serum or plasma troponin i.cardiac measu rement (mass/volume) - 08/10/17 12:05 Serum or plasma troponin i.cardiac measurement (mass/v olume) < ng/mL <0.30 Myoglobin, serum - 08/10/17 12:05 Myoglobin, serum 29.0 ng/mL 10.0-92.0 Serum or plasma lithium measurement (mol es/volume) - 08/10/17 12:05 BNP level 38.9 pg/mL <100.0 Streptococcus pyogenes antigen detection - 09/13/17 15:39 Streptococcus pyogenes antigen detection NEGATIVE NEGATIVE Influenza virus A and B antigen detectio n - 09/13/17 15:39 FLU RESULT NEGATIVE FOR INFLUENZA A AND B ANTIGENS BY [place] NRG Bacterial throat culture - 09/13/17 15:3 9 Bacterial throat culture [facility] NR Methicillin resistant Staphylococcus aur eus (MRSA) screening culture - 11/20/17 11:24 MRSA SCREEN RESULT MRSA ISOLATED NRG Capillary blood glucose measurement by g lucometer (mass/volume) - 11/26/17 07:50 Capillary blood glucose measurement by glucometer (mas s/volume) 124 mg/dL 70-110 Complete blood count (CBC) with automate d white blood cell (WBC) differential - 12/05/17 13:37 Blood leukocytes automated count (number/volume) 9.9 10*3/uL 4.3-11.0 Blood erythrocytes automated count (number/volume) 4.18 10*6/uL 4.35-5.85 Venous blood hemoglobin measurement (mass/volume) 11.7 g/dL 11.5-16.0 Blood hematocrit (volume fraction) 35 % 35-52 Automated erythrocyte mean corpuscular volume 83 [ foz_us] 80-99 Automated erythrocyte mean corpuscular h emoglobin (mass per erythrocyte) 28 pg 25-34 Automated erythrocyte mean corpuscular h emoglobin concentration measurement (mass/volume) 34 g/dL 32-36 Automated erythrocyte distribution width ratio 14. 2 % 10.0- 14.5 Automated blood platelet count (count/volume) 236 10*3/uL [...] 10*3 1.0-4.0 Blood monocytes automated count (number/volume) 0. 7 10*3 0.0-1.0 Automated eosinophil count 0.2 10*3/uL 0 .0-0.3 Automated blood basophil count (count/volume) 0.0 10*3/uL 0.0-0.1 PT panel in platelet poor plasma by coag ulation assay - 12/05/17 13:37 Prothrombin time (PT) in platelet poor plasma by coagu lation assay 12.2 s 12.2-14.7 INR in platelet poor plasma or blood by coagulation as say 0.9 0.8-1.4 Activated partial thromboplastin time (a PTT) in platelet poor plasma bycoagulation assay - 12/05/17 13:37 Activated partial thromboplastin time (a PTT) in platelet poor plasma bycoagulation assay 27 s 24-35 Comprehensive metabolic panel - 12/05/17 13:37 Serum or plasma sodium measurement (moles/volume) 137 mmol/L 135-145 Serum or plasma potassium measurement (moles/volume) 3.8 mmol/L 3.6-5.0 Serum or plasma chloride measurement (moles/volume) 104 mmol/L 98-107 Carbon dioxide 28 mmol/L 21-32 Serum or plasma anion gap determination (moles/volume) 5 mmol/L 5-14 Serum or plasma urea nitrogen measurement (mass/volume ) 13 mg/dL 7-18 Serum or plasma creatinine measurement (mass/volume) 0.78 mg/dL 0.60-1.30 Serum or plasma urea nitrogen/creatinine mass ratio 17 NRG Serum or plasma creatinine measurement w ith calculation of estimated glomerular filtration rate > NRG Serum or plasma glucose measurement (mass/volume) 134 mg/dL 70-105 Serum or plasma calcium measurement (mass/volume) 9.2 mg/dL 8.5-10.1 Serum or plasma total bilirubin measurement (mass/volu me) 0.3 mg/dL 0.1-1.0 Serum or plasma alkaline phosphatase tiana surement (enzymatic activity/volume) 95 U/L 40-136 Serum or plasma aspartate aminotransfera se measurement (enzymatic activity/volume) 17 U/L 5-34 Serum or plasma alanine aminotransferase measurement (enzymatic activity/volume) 22 U/L 0-55 Serum or plasma protein measurement (mass/volume) 7.4 g/dL 6.4-8.2 Serum or plasma albumin measurement (mass/volume) 3.9 g/dL 3.2-4.5 Magnesium - 12/05/17 13:37 Magnesium 1.6 mg/dL 1.8-2.4 Serum or plasma troponin i.cardiac measu rement (mass/volume) - 12/05/17 13:37 Serum or plasma troponin i.cardiac measurement (mass/v olume) < ng/mL <0.30 Myoglobin, serum - 12/05/17 13:37 Myoglobin, serum 26.2 ng/mL 10.0-92.0 Complete blood count (CBC) with automate d white blood cell (WBC) differential - 04/01/18 11:30 Blood leukocytes automated count (number/volume) 9.4 10*3/uL 4.3-11.0 Blood erythrocytes automated count (number/volume) 4.70 10*6/uL 4.35-5.85 Venous blood hemoglobin measurement (mass/volume) 13.1 g/dL 11.5-16.0 Blood hematocrit (volume fraction) 38 % 35-52 Automated erythrocyte mean corpuscular volume 81 [ foz_us] 80-99 Automated erythrocyte mean corpuscular h emoglobin (mass per erythrocyte) 28 pg 25-34 Automated erythrocyte mean corpuscular h emoglobin concentration measurement (mass/volume) 34 g/dL 32-36 Automated erythrocyte distribution width ratio 14. 5 % 10.0- 14.5 Automated blood platelet count (count/volume) 226 10*3/uL [...] 10*3 1.0-4.0 Blood monocytes automated count (number/volume) 0. 5 10*3 0.0-1.0 Automated eosinophil count 0.2 10*3/uL 0 .0-0.3 Automated blood basophil count (count/volume) 0.0 10*3/uL 0.0-0.1 Comprehensive metabolic panel - 04/01/18 11:30 Serum or plasma sodium measurement (moles/volume) 138 mmol/L 135-145 Serum or plasma potassium measurement (moles/volume) 4.3 mmol/L 3.6-5.0 Serum or plasma chloride measurement (moles/volume) 106 mmol/L 98-107 Carbon dioxide 21 mmol/L 21-32 Serum or plasma anion gap determination (moles/volume) 11 mmol/L 5-14 Serum or plasma urea nitrogen measurement (mass/volume ) 10 mg/dL 7-18 Serum or plasma creatinine measurement (mass/volume) 0.80 mg/dL 0.60-1.30 Serum or plasma urea nitrogen/creatinine mass ratio 13 NRG Serum or plasma creatinine measurement w ith calculation of estimated glomerular filtration rate > NRG Serum or plasma glucose measurement (mass/volume) 101 mg/dL 70-105 Serum or plasma calcium measurement (mass/volume) 9.5 mg/dL 8.5-10.1 Serum or plasma total bilirubin measurement (mass/volu me) 0.4 mg/dL 0.1-1.0 Serum or plasma alkaline phosphatase tiana surement (enzymatic activity/volume) 92 U/L 40-136 Serum or plasma aspartate aminotransfera se measurement (enzymatic activity/volume) 29 U/L 5-34 Serum or plasma alanine aminotransferase measurement (enzymatic activity/volume) 36 U/L 0-55 Serum or plasma protein measurement (mass/volume) 7.3 g/dL 6.4-8.2 Serum or plasma albumin measurement (mass/volume) 4.1 g/dL 3.2-4.5 Serum or plasma amylase measurement (enz ymatic activity/volume) - 04/01/18 11:30 Serum or plasma amylase measurement (enzymatic activit y/volume) 83 U/L 25-125 Lipase - 04/01/18 11:30 Lipase 64 U/L 8-78 Complete urinalysis with reflex to cultu re - 04/01/18 11:57 Urine color determination YELLOW NRG Urine clarity determination VERY CLOUDY NRG Urine pH measurement by test strip 6 5-9 Specific gravity of urine by test strip 1.015 1.016-1.022 Urine protein assay by test strip, semi-quantitative 1+ NEGATIVE Urine glucose detection by automated test strip NE GATIVE NEGATIVE Erythrocytes detection in urine sediment by light micr oscopy 1+ NEGATIVE Urine ketones detection by automated test strip NE GATIVE NEGATIVE Urine nitrite detection by test strip NEGATIVE NEGATIVE Urine total bilirubin detection by test strip 1+ NEGATIVE Urine urobilinogen measurement by automated test strip (mass/volume) 1 mg/dL NORMAL Urine leukocyte esterase detection by dipstick 3+ NEGATIVE Automated urine sediment erythrocyte cou nt by microscopy (number/high power field) NONE NRG Automated urine sediment leukocyte count by microscopy (number/high power field) [HPF] NRG Bacteria detection in urine sediment by light microsco py MODERATE NRG Squamous epithelial cells detection in u rine sediment by light microscopy 10-25 NRG Crystals detection in urine sediment by light microsco py NONE NRG Casts detection in urine sediment by light microscopy NONE NRG Mucus detection in urine sediment by light microscopy NEGATIVE NRG Complete urinalysis with reflex to culture YES NRG Bacterial urine culture - 04/01/18 11:57 Bacterial urine culture SEE COMMEN NRG COLONY COUNT . NRG Methicillin resistant Staphylococcus aur eus (MRSA) screening culture - 04/30/18 10:45 Methicillin resistant Staphylococcus aureus (MRSA) scr eening culture NEG NRG Capillary blood glucose measurement by g lucometer (mass/volume) - 05/06/18 10:20 Capillary blood glucose measurement by glucometer (mas s/volume) 135 mg/dL 70-110 Methicillin resistant Staphylococcus aur eus (MRSA) screening culture - 07/09/18 12:08 Methicillin resistant Staphylococcus aureus (MRSA) scr eening culture NEG NRG Complete blood count (CBC) with automate d white blood cell (WBC) differential - 07/09/18 12:15 Blood leukocytes automated count (number/volume) 9.0 10*3/uL 4.3-11.0 Blood erythrocytes automated count (number/volume) 4.72 10*6/uL 4.35-5.85 Venous blood hemoglobin measurement (mass/volume) 12.8 g/dL 11.5-16.0 Blood hematocrit (volume fraction) 38 % 35-52 Automated erythrocyte mean corpuscular volume 81 [ foz_us] 80-99 Automated erythrocyte mean corpuscular h emoglobin (mass per erythrocyte) 27 pg 25-34 Automated erythrocyte mean corpuscular h emoglobin concentration measurement (mass/volume) 34 g/dL 32-36 Automated erythrocyte distribution width ratio 14. 1 % 10.0- 14.5 Automated blood platelet count (count/volume) 242 10*3/uL 130-400 Automated blood platelet mean volume measurement 12.0 [foz_us] 7.4-10.4 Automated blood neutrophils/100 leukocytes 58 % 42-75 Automated blood lymphocytes/100 leukocytes 35 % 12-44 Blood monocytes/100 leukocytes 5 % 0-12 Automated blood eosinophils/100 leukocytes 2 % 0-10 Automated blood basophils/100 leukocytes 0 % 0-10 Blood neutrophils automated count (number/volume) 5.2 10*3 1.8-7.8 Blood lymphocytes automated count (number/volume) 3.1 10*3 1.0-4.0 Blood monocytes automated count (number/volume) 0. 4 10*3 0.0-1.0 Automated eosinophil count 0.2 10*3/uL 0 .0-0.3 Automated blood basophil count (count/volume) 0.0 10*3/uL 0.0-0.1 PT panel in platelet poor plasma by coag ulation assay - 07/09/18 12:15 Prothrombin time (PT) in platelet poor plasma by coagu lation assay 12.7 s 12.2-14.7 INR in platelet poor plasma or blood by coagulation as say 1.0 0.8-1.4 Comprehensive metabolic panel - 07/09/18 12:15 Serum or plasma sodium measurement (moles/volume) 136 mmol/L 135-145 Serum or plasma potassium measurement (moles/volume) 3.8 mmol/L 3.6-5.0 Serum or plasma chloride measurement (moles/volume) 102 mmol/L 98-107 Carbon dioxide 22 mmol/L 21-32 Serum or plasma anion gap determination (moles/volume) 12 mmol/L 5-14 Serum or plasma urea nitrogen measurement (mass/volume ) 9 mg/dL 7-18 Serum or plasma creatinine measurement (mass/volume) 0.80 mg/dL 0.60-1.30 Serum or plasma urea nitrogen/creatinine mass ratio 11 NRG Serum or plasma creatinine measurement w ith calculation of estimated glomerular filtration rate > NRG Serum or plasma glucose measurement (mass/volume) 127 mg/dL 70-105 Serum or plasma calcium measurement (mass/volume) 9.5 mg/dL 8.5-10.1 Serum or plasma total bilirubin measurement (mass/volu me) 0.4 mg/dL 0.1-1.0 Serum or plasma alkaline phosphatase tiana surement (enzymatic activity/volume) 94 U/L 40-136 Serum or plasma aspartate aminotransfera se measurement (enzymatic activity/volume) 29 U/L 5-34 Serum or plasma alanine aminotransferase measurement (enzymatic activity/volume) 40 U/L 0-55 Serum or plasma protein measurement (mass/volume) 7.6 g/dL 6.4-8.2 Serum or plasma albumin measurement (mass/volume) 4.1 g/dL 3.2-4.5 CALCIUM CORRECTED 9.4 mg/dL 8.5-10.1 Erythrocyte sedimentation rate by connor gren method - 07/09/18 12:15 Erythrocyte sedimentation rate by westergren method 29 mm 0- 30 Blood type T Indirect antibody screen [facility] - 07/09/18 12:15 ABO+Rh group OP NRG Blood group antibody screen NEGATIVE NR G Complete urinalysis with reflex to cultu re - 07/09/18 12:23 Urine color determination YELLOW NRG Urine clarity determination SLIGHTLY CLOUDY NRG Urine pH measurement by test strip 5 5-9 Specific gravity of urine by test strip 1.030 1.016-1.022 Urine protein assay by test strip, semi-quantitative 1+ NEGATIVE Urine glucose detection by automated test strip NE GATIVE NEGATIVE Erythrocytes detection in urine sediment by light micr oscopy NEGATIVE NEGATIVE Urine ketones detection by automated test strip NE GATIVE NEGATIVE Urine nitrite detection by test strip NEGATIVE NEGATIVE Urine total bilirubin detection by test strip NEGA TIVE NEGATIVE Urine urobilinogen measurement by automated test strip (mass/volume) NORMAL NORMAL Urine leukocyte esterase detection by dipstick 1+ NEGATIVE Automated urine sediment erythrocyte cou nt by microscopy (number/high power field) NONE NRG Automated urine sediment leukocyte count by microscopy (number/high power field) [HPF] NRG Bacteria detection in urine sediment by light microsco py MODERATE NRG Squamous epithelial cells detection in u rine sediment by light microscopy 10-25 NRG Crystals detection in urine sediment by light microsco py NONE NRG Casts detection in urine sediment by light microscopy NONE NRG Mucus detection in urine sediment by light microscopy MODERATE NRG Complete urinalysis with reflex to culture YES NRG Bacterial urine culture - 07/09/18 12:23 Bacterial urine culture NG NRG Blood type T Indirect antibody screen [facility] - 07/15/18 06:50 ABO+Rh group OP NRG Transfusion band number [id number] NRG Blood group antibody screen NEGATIVE NR G Capillary blood glucose measurement by g lucometer (mass/volume) - 07/15/18 06:51 Capillary blood glucose measurement by glucometer (mas s/volume) 137 mg/dL 70-110 Complete blood count (CBC) with automate d white blood cell (WBC) differential - 07/16/18 06:00 Blood leukocytes automated count (number/volume) 10.2 10*3/uL 4.3-11.0 Blood erythrocytes automated count (number/volume) 3.85 10*6/uL 4.35-5.85 Venous blood hemoglobin measurement (mass/volume) 10.4 g/dL 11.5-16.0 Blood hematocrit (volume fraction) 32 % 35-52 Automated erythrocyte mean corpuscular volume 84 [ foz_us] 80-99 Automated erythrocyte mean corpuscular h emoglobin (mass per erythrocyte) 27 pg 25-34 Automated erythrocyte mean corpuscular h emoglobin concentration measurement (mass/volume) 32 g/dL 32-36 Automated erythrocyte distribution width ratio 14. 1 % 10.0- 14.5 Automated blood platelet count (count/volume) 198 10*3/uL 130-400 Automated blood platelet mean volume measurement 11.9 [foz_us] 7.4-10.4 Automated blood neutrophils/100 leukocytes 71 % 42-75 Automated blood lymphocytes/100 leukocytes 21 % 12-44 Blood monocytes/100 leukocytes 7 % 0-12 Automated blood eosinophils/100 leukocytes 1 % 0-10 Automated blood basophils/100 leukocytes 0 % 0-10 Blood neutrophils automated count (number/volume) 7.2 10*3 1.8-7.8 Blood lymphocytes automated count (number/volume) 2.1 10*3 1.0-4.0 Blood monocytes automated count (number/volume) 0. 8 10*3 0.0-1.0 Automated eosinophil count 0.1 10*3/uL 0 .0-0.3 Automated blood basophil count (count/volume) 0.0 10*3/uL 0.0-0.1 Comprehensive metabolic panel - 07/16/18 06:00 Serum or plasma sodium measurement (moles/volume) 137 mmol/L 135-145 Serum or plasma potassium measurement (moles/volume) 4.2 mmol/L 3.6-5.0 Serum or plasma chloride measurement (moles/volume) 103 mmol/L 98-107 Carbon dioxide 24 mmol/L 21-32 Serum or plasma anion gap determination (moles/volume) 10 mmol/L 5-14 Serum or plasma urea nitrogen measurement (mass/volume ) 18 mg/dL 7-18 Serum or plasma creatinine measurement (mass/volume) 1.03 mg/dL 0.60-1.30 Serum or plasma urea nitrogen/creatinine mass ratio 17 NRG Serum or plasma creatinine measurement w ith calculation of estimated glomerular filtration rate 56 NRG Serum or plasma glucose measurement (mass/volume) 128 mg/dL 70-105 Serum or plasma calcium measurement (mass/volume) 9.0 mg/dL 8.5-10.1 Serum or plasma total bilirubin measurement (mass/volu me) 0.7 mg/dL 0.1-1.0 Serum or plasma alkaline phosphatase tiana surement (enzymatic activity/volume) 76 U/L 40-136 Serum or plasma aspartate aminotransfera se measurement (enzymatic activity/volume) 27 U/L 5-34 Serum or plasma alanine aminotransferase measurement (enzymatic activity/volume) 35 U/L 0-55 Serum or plasma protein measurement (mass/volume) 6.8 g/dL 6.4-8.2 Serum or plasma albumin measurement (mass/volume) 3.7 g/dL 3.2-4.5 CALCIUM CORRECTED 9.2 mg/dL 8.5-10.1 Hemoglobin A1c - 07/16/18 06:00 Blood hemoglobin A1C measurement (mass/volume) 6.4 % 4.0-5.6 MEAN BLOOD GLUCOSE 137 % <=126 Capillary blood glucose measurement by g lucometer (mass/volume) - 07/16/18 06:04 Capillary blood glucose measurement by glucometer (mas s/volume) 124 mg/dL 70-110 Capillary blood glucose measurement by g lucometer (mass/volume) - 07/16/18 11:16 Capillary blood glucose measurement by glucometer (mas s/volume) 131 mg/dL 70-110 Capillary blood glucose measurement by g lucometer (mass/volume) - 07/16/18 16:13 Capillary blood glucose measurement by glucometer (mas s/volume) 129 mg/dL 70-110 Capillary blood glucose measurement by g lucometer (mass/volume) - 07/16/18 20:43 Capillary blood glucose measurement by glucometer (mas s/volume) 158 mg/dL 70-110 Whole blood hemoglobin and hematocrit pa rin - 07/17/18 04:20 Venous blood hemoglobin measurement (mass/volume) 9.6 g/dL 11.5-16.0 Blood hematocrit (volume fraction) 29 % 35-52 Capillary blood glucose measurement by g lucometer (mass/volume) - 07/17/18 06:08 Capillary blood glucose measurement by glucometer (mas s/volume) 155 mg/dL 70-110 Capillary blood glucose measurement by g lucometer (mass/volume) - 07/17/18 11:16 Capillary blood glucose measurement by glucometer (mas s/volume) 139 mg/dL 70-110 Capillary blood glucose measurement by g lucometer (mass/volume) - 07/17/18 16:11 Capillary blood glucose measurement by glucometer (mas s/volume) 196 mg/dL 70-110 Capillary blood glucose measurement by g lucometer (mass/volume) - 07/17/18 20:37 Capillary blood glucose measurement by glucometer (mas s/volume) 137 mg/dL 70-110 Capillary blood glucose measurement by g lucometer (mass/volume) - 07/18/18 05:36 Capillary blood glucose measurement by glucometer (mas s/volume) 131 mg/dL 70-110 Whole blood hemoglobin and hematocrit pa rin - 07/18/18 06:25 Venous blood hemoglobin measurement (mass/volume) 9.6 g/dL 11.5-16.0 Blood hematocrit (volume fraction) 29 % 35-52 Streptococcus pyogenes antigen detection - 10/29/18 15:45 Streptococcus pyogenes antigen detection NEGATIVE NEGATIVE Influenza virus A and B antigen detectio n - 10/29/18 15:45 FLU RESULT NEGATIVE FOR INFLUENZA A AND B ANTIGENS BY [place] NRG Bacterial throat culture - 10/29/18 15:4 5 Bacterial throat culture NBS NRG Complete urinalysis with reflex to cultu re - 11/29/18 10:22 Urine color determination YELLOW NRG Urine clarity determination SLIGHTLY CLOUDY NRG Urine pH measurement by test strip 5 5-9 Specific gravity of urine by test strip 1.020 1.016-1.022 Urine protein assay by test strip, semi-quantitative NEGATIVE NEGATIVE Urine glucose detection by automated test strip 1+ NEGATIVE Erythrocytes detection in urine sediment by light micr oscopy NEGATIVE NEGATIVE Urine ketones detection by automated test strip NE GATIVE NEGATIVE Urine nitrite detection by test strip NEGATIVE NEGATIVE Urine total bilirubin detection by test strip NEGA TIVE NEGATIVE Urine urobilinogen measurement by automated test strip (mass/volume) NORMAL NORMAL Urine leukocyte esterase detection by dipstick NEG ATIVE NEGATIVE Automated urine sediment erythrocyte cou nt by microscopy (number/high power field) NONE NRG Automated urine sediment leukocyte count by microscopy (number/high power field) NONE NRG Bacteria detection in urine sediment by light microsco py NEGATIVE NRG Crystals detection in urine sediment by light microsco py NONE NRG Casts detection in urine sediment by light microscopy NONE NRG Mucus detection in urine sediment by light microscopy NEGATIVE NRG Complete urinalysis with reflex to culture NO NRG Influenza virus A and B antigen detectio n - 11/29/18 10:25 FLU RESULT NEGATIVE FOR INFLUENZA A AND B ANTIGENS BY IA [facility] Complete blood count (CBC) with automate d white blood cell (WBC) differential - 11/29/18 10:45 Blood leukocytes automated count (number/volume) 9.1 10*3/uL 4.3-11.0 Blood erythrocytes automated count (number/volume) 4.63 10*6/uL 4.35-5.85 Venous blood hemoglobin measurement (mass/volume) 12.0 g/dL 11.5-16.0 Blood hematocrit (volume fraction) 37 % 35-52 Automated erythrocyte mean corpuscular volume 79 [ foz_us] 80-99 Automated erythrocyte mean corpuscular h emoglobin (mass per erythrocyte) 26 pg 25-34 Automated erythrocyte mean corpuscular h emoglobin concentration measurement (mass/volume) 33 g/dL 32-36 Automated erythrocyte distribution width ratio 14. 9 % 10.0- 14.5 Automated blood platelet count (count/volume) 197 10*3/uL 130-400 Automated blood platelet mean volume measurement 11.4 [foz_us] 7.4-10.4 Automated blood neutrophils/100 leukocytes 70 % 42-75 Automated blood lymphocytes/100 leukocytes 22 % 12-44 Blood monocytes/100 leukocytes 6 % 0-12 Automated blood eosinophils/100 leukocytes 3 % 0-10 Automated blood basophils/100 leukocytes 0 % 0-10 Blood neutrophils automated count (number/volume) 6.3 10*3 1.8-7.8 Blood lymphocytes automated count (number/volume) 2.0 10*3 1.0-4.0 Blood monocytes automated count (number/volume) 0. 5 10*3 0.0-1.0 Automated eosinophil count 0.2 10*3/uL 0 .0-0.3 Automated blood basophil count (count/volume) 0.0 10*3/uL 0.0-0.1 Blood lactic acid measurement (moles/vol ume) - 11/29/18 10:45 Blood lactic acid measurement (moles/volume) 1.16 mmol/L 0.50-2.00 Bacterial blood culture - 11/29/18 10:45 Bacterial blood culture NG NR Bacterial blood culture - 11/29/18 10:56 Bacterial blood culture NG NRG Influenza virus A and B antigen detectio n - 12/26/18 18:16 FLU RESULT NEGATIVE FOR INFLUENZA A AND B ANTIGENS BY IA NRG Capillary blood glucose measurement by g lucometer (mass/volume) - 01/06/19 10:16 Capillary blood glucose measurement by glucometer (mas s/volume) 125 mg/dL 70-110 Methicillin resistant Staphylococcus aur eus (MRSA) screening culture - 01/06/19 10:20 Methicillin resistant Staphylococcus aureus (MRSA) scr eening culture NEG NRG Complete blood count (CBC) with automate d white blood cell (WBC) differential - 05/06/19 14:04 Blood leukocytes automated count (number/volume) 9.2 10*3/uL 4.3-11.0 Blood erythrocytes automated count (number/volume) 4.74 10*6/uL 4.35-5.85 Venous blood hemoglobin measurement (mass/volume) 12.1 g/dL 11.5-16.0 Blood hematocrit (volume fraction) 38 % 35-52 Automated erythrocyte mean corpuscular volume 80 [ foz_us] 80-99 Automated erythrocyte mean corpuscular h emoglobin (mass per erythrocyte) 26 pg 25-34 Automated erythrocyte mean corpuscular h emoglobin concentration measurement (mass/volume) 32 g/dL 32-36 Automated erythrocyte distribution width ratio 14. 3 % 10.0- 14.5 Automated blood platelet count (count/volume) 346 10*3/uL 130-400 Automated blood platelet mean volume measurement 11.4 [foz_us] 7.4-10.4 Automated blood neutrophils/100 leukocytes 65 % 42-75 Automated blood lymphocytes/100 leukocytes 27 % 12-44 Blood monocytes/100 leukocytes 6 % 0-12 Automated blood eosinophils/100 leukocytes 2 % 0-10 Automated blood basophils/100 leukocytes 0 % 0-10 Blood neutrophils automated count (number/volume) 6.0 10*3 1.8-7.8 Blood lymphocytes automated count (number/volume) 2.4 10*3 1.0-4.0 Blood monocytes automated count (number/volume) 0. 6 10*3 0.0-1.0 Automated eosinophil count 0.2 10*3/uL 0 .0-0.3 Automated blood basophil count (count/volume) 0.0 10*3/uL 0.0-0.1 Comprehensive metabolic panel - 05/06/19 14:04 Serum or plasma sodium measurement (moles/volume) 139 mmol/L 135-145 Serum or plasma potassium measurement (moles/volume) 4.0 mmol/L 3.6-5.0 Serum or plasma chloride measurement (moles/volume) 102 mmol/L 98-107 Carbon dioxide 24 mmol/L 21-32 Serum or plasma anion gap determination (moles/volume) 13 mmol/L 5-14 Serum or plasma urea nitrogen measurement (mass/volume ) 13 mg/dL 7-18 Serum or plasma creatinine measurement (mass/volume) 1.18 mg/dL 0.60-1.30 Serum or plasma urea nitrogen/creatinine mass ratio 11 NRG Serum or plasma creatinine measurement w ith calculation of estimated glomerular filtration rate 47 NRG Serum or plasma glucose measurement (mass/volume) 125 mg/dL 70-105 Serum or plasma calcium measurement (mass/volume) 10.2 mg/dL 8.5-10.1 Serum or plasma total bilirubin measurement (mass/volu me) 0.2 mg/dL 0.1-1.0 Serum or plasma alkaline phosphatase tiana surement (enzymatic activity/volume) 113 U/L 40-136 Serum or plasma aspartate aminotransfera se measurement (enzymatic activity/volume) 29 U/L 5-34 Serum or plasma alanine aminotransferase measurement (enzymatic activity/volume) 32 U/L 0-55 Serum or plasma protein measurement (mass/volume) 8.7 g/dL 6.4-8.2 Serum or plasma albumin measurement (mass/volume) 4.4 g/dL 3.2-4.5 CALCIUM CORRECTED 9.9 mg/dL 8.5-10.1 Gram stain microscopy - 05/06/19 14:59 Gram stain microscopy Mixed Bacterial Timothy NRG Bacteria identification in wound by cult ure - 05/06/19 14:59 Bacteria identification in wound by culture [id number] NRG FREE TEXT EXTERNAL NO BETA STREP, STAPH AUREUS, OR NRG QUANTITY OF GROWTH Moderate NRG FREE TEXT ENTRY 2 PSEUDOMONAS ISOLATED NRG FREE TEXT ENTRY 3 NO SUSCEPTIBILITY PERFORMED NRG Methicillin resistant Staphylococcus aur eus (MRSA) screening culture - 06/24/19 12:34 Methicillin resistant Staphylococcus aureus (MRSA) scr eening culture NEG NRG Capillary blood glucose measurement by g lucometer (mass/volume) - 06/30/19 08:05 Capillary blood glucose measurement by glucometer (mas s/volume) 118 mg/dL 70-110 Complete blood count (CBC) with automate d white blood cell (WBC) differential - 08/05/19 17:05 Blood leukocytes automated count (number/volume) 9.4 10*3/uL 4.3-11.0 Blood erythrocytes automated count (number/volume) 4.93 10*6/uL 4.35-5.85 Venous blood hemoglobin measurement (mass/volume) 12.4 g/dL 11.5-16.0 Blood hematocrit (volume fraction) 39 % 35-52 Automated erythrocyte mean corpuscular volume 79 [ foz_us] 80-99 Automated erythrocyte mean corpuscular h emoglobin (mass per erythrocyte) 25 pg 25-34 Automated erythrocyte mean corpuscular h emoglobin concentration measurement (mass/volume) 32 g/dL 32-36 Automated erythrocyte distribution width ratio 16. 0 % 10.0- 14.5 Automated blood platelet count (count/volume) 203 10*3/uL 130-400 Automated blood platelet mean volume measurement 12.7 [foz_us] 7.4-10.4 Automated blood neutrophils/100 leukocytes 65 % 42-75 Automated blood lymphocytes/100 leukocytes 25 % 12-44 Blood monocytes/100 leukocytes 8 % 0-12 Automated blood eosinophils/100 leukocytes 2 % 0-10 Automated blood basophils/100 leukocytes 0 % 0-10 Blood neutrophils automated count (number/volume) 6.1 10*3 1.8-7.8 Blood lymphocytes automated count (number/volume) 2.4 10*3 1.0-4.0 Blood monocytes automated count (number/volume) 0. 7 10*3 0.0-1.0 Automated eosinophil count 0.2 10*3/uL 0 .0-0.3 Automated blood basophil count (count/volume) 0.0 10*3/uL 0.0-0.1 Blood lactic acid measurement (moles/vol ume) - 08/05/19 17:05 Blood lactic acid measurement (moles/volume) 2.55 mmol/L 0.50-2.00 Comprehensive metabolic panel - 08/05/19 17:05 Serum or plasma sodium measurement (moles/volume) 137 mmol/L 135-145 Serum or plasma potassium measurement (moles/volume) 3.7 mmol/L 3.6-5.0 Serum or plasma chloride measurement (moles/volume) 104 mmol/L 98-107 Carbon dioxide 21 mmol/L 21-32 Serum or plasma anion gap determination (moles/volume) 12 mmol/L 5-14 Serum or plasma urea nitrogen measurement (mass/volume ) 12 mg/dL 7-18 Serum or plasma creatinine measurement (mass/volume) 0.83 mg/dL 0.60-1.30 Serum or plasma urea nitrogen/creatinine mass ratio 14 NRG Serum or plasma creatinine measurement w ith calculation of estimated glomerular filtration rate > NRG Serum or plasma glucose measurement (mass/volume) 169 mg/dL 70-105 Serum or plasma calcium measurement (mass/volume) 9.0 mg/dL 8.5-10.1 Serum or plasma total bilirubin measurement (mass/volu me) 0.3 mg/dL 0.1-1.0 Serum or plasma alkaline phosphatase tiana surement (enzymatic activity/volume) 101 U/L 40-136 Serum or plasma aspartate aminotransfera se measurement (enzymatic activity/volume) 46 U/L 5-34 Serum or plasma alanine aminotransferase measurement (enzymatic activity/volume) 46 U/L 0-55 Serum or plasma protein measurement (mass/volume) 7.6 g/dL 6.4-8.2 Serum or plasma albumin measurement (mass/volume) 4.1 g/dL 3.2-4.5 CALCIUM CORRECTED 8.9 mg/dL 8.5-10.1 Influenza virus A and B antigen detectio n - 08/05/19 17:05 FLU RESULT NEGATIVE FOR INFLUENZA A AND B ANTIGENS BY IA NRG Complete urinalysis with reflex to cultu re - 09/28/19 11:18 Urine color determination YELLOW NRG Urine clarity determination CLEAR NR G Urine pH measurement by test strip 5.5 5-9 Specific gravity of urine by test strip >= 1.016-1.022 Urine protein assay by test strip, semi-quantitative NEGATIVE NEGATIVE Urine glucose detection by automated test strip NE GATIVE NEGATIVE Erythrocytes detection in urine sediment by light micr oscopy NEGATIVE NEGATIVE Urine ketones detection by automated test strip NE GATIVE NEGATIVE Urine nitrite detection by test strip NEGATIVE NEGATIVE Urine total bilirubin detection by test strip NEGA TIVE NEGATIVE Urine urobilinogen measurement by automated test strip (mass/volume) 0.2 mg/dL < = 1.0 Urine leukocyte esterase detection by dipstick NEG ATIVE NEGATIVE Automated urine sediment erythrocyte cou nt by microscopy (number/high power field) NONE NRG Automated urine sediment leukocyte count by microscopy (number/high power field) NONE NRG Bacteria detection in urine sediment by light microsco py MODERATE NRG Squamous epithelial cells detection in u rine sediment by light microscopy TNTC NRG Crystals detection in urine sediment by light microsco py NONE NRG Casts detection in urine sediment by light microscopy NONE NRG Mucus detection in urine sediment by light microscopy NEGATIVE NRG Complete urinalysis with reflex to culture NO NRG Influenza virus A and B antigen detectio n - 11/10/19 14:14 FLU RESULT NEGATIVE FOR INFLUENZA A AND B ANTIGENS BY IA NRG Streptococcus pyogenes antigen detection - 11/10/19 14:39 Streptococcus pyogenes antigen detection NEGATIVE NEGATIVE Bacterial throat culture - 11/10/19 14:3 9 Bacterial throat culture NBS NRG Encounters ACCT No. Visit Date/Time Discharge Status Pt. Type Provider Facility Loc./Unit Complaint [id number] 10/17/2019 13:20:00 10/17/2019 23:59: 59 CLS Outpatient NICKY THOMPSON [facility] [id number] 07/22/2017 09:40:00 Document Registration [id number] 11/10/2019 14:05:00 15:09:00 DIS Emergency JANELLE ESPITIA APRN [facility] ER SORE THROAT;COUGH [id number] 09/28/2019 10:13:00 13:09:00 DIS Emergency JANELLE ESPITIA APRN [facility] ER ABD PAIN/KNOT NAUSEA [id number] 08/19/2019 10:38:00 23:59:59 CLS Outpatient NICKY THOMPSON MD [facility] RAD SCREENING [id number] 08/05/2019 16:13:00 18:28:00 DIS Emergency FRANCI DO ARELY L [facility] ER FACIAL PRESSURE,BODY AC HES [id number] 06/30/2019 07:55:00 12:15:00 DIS Outpatient KISHA BALDWIN MD [facility] LEFT KNEE ADHESIVE CAP SULITIS [id number] 06/24/2019 12:18:00 12:40:00 DIS Outpatient KISHA BALDWIN MD [facility] PREOP LEFT KNEE ADHESIVE CAP SULTITIS [id number] 05/06/2019 13:44:00 15:44:00 DIS Emergency GHASSAN HARVEY [facility] ER POST OP COMPLICATION [id number] 01/06/2019 10:05:00 13:05:00 DIS Outpatient KISHA BALDWIN MD [facility] LEFT HIP OSTEOARTHRITI S [id number] 01/04/2019 12:14:00 13:00:00 DIS Outpatient KISHA BALDWIN MD [facility] PREOP LEFT HIP OSTEOARTHRITI S [id number] 12/26/2018 18:02:00 20:59:00 DIS Emergency OLIVA STALEY [facility] ER SORE THROAT/COUGH/CHILL S [id number] 12/22/2018 09:54:00 13:15:00 DIS Outpatient KIMBLE STEPHANE LOU [facility] ENDO BLOOD IN STOOL/LUQ AND LLQ ABD PAIN [id number] 12/17/2018 09:28:00 10:06:00 DIS Outpatient STEPHANE KIMBLE DO [facility] PREOP COLONOSCOPY/EGD [id number] 11/29/2018 09:15:00 12:20:00 DIS Emergency CHRISTO VIDAL MD [facility] ER COUGH,COLD SYMPTOMS [id number] 10/29/2018 15:16:00 16:48:00 DIS Emergency JANELLE ESPITIA APRN [facility] ER COUGH,CHEST TIGHTNESS [id number] 07/15/2018 06:08:00 10:10:00 DIS Inpatient KISHA BALDWIN MD [facility] 4TH PRIMARY OSTEOARTHRITIS [id number] 07/09/2018 11:46:00 12:30:00 DIS Outpatient KISHA BALDWIN MD [facility] PREOP PRIMARY OSTEOARTHRITIS [id number] 06/15/2018 14:10:00 018 23:59:59 CLS Outpatient SLY HARRIS [employer] [facility] RAD RUQ ABDOMINAL P AIN [id number] 05/06/2018 12:00:00 23:59:59 [facility] ATERAL MENISCUS TEAR [id number] 04/20/2018 10:43:00 018 14:35:00 DIS Outpatient VICTORIA CHÁVEZ MD [facility] ENDO ABNORMAL CT [id number] 04/13/2018 06:06:00 018 14:54:00 DIS Outpatient VICTORIA CHÁVEZ MD [facility] PREOP COLONOSCOPY [id number] 04/01/2018 11:13:00 018 13:31:00 DIS Emergency MURALI ORLANDO DO [facility] ER L SIDE PAIN [id number] 12/05/2017 13:18:00 018 15:18:00 DIS Emergency JANELLE ESPITIA APRN [facility] ER CP,TIGHTENING IN CHEST [id number] 11/26/2017 07:41:00 018 12:15:00 DIS Outpatient KISHA BALDWIN MD [facility] SDC RIGHT KNEE CHONDROMALA RENARD [id number] 11/20/2017 11:13:00 018 11:30:00 DIS Outpatient KISHA BALDWIN MD [facility] PREOP RIGHT KNEE CHONDROMALA RENARD [id number] 11/11/2017 12:46:00 23:59:59 CLS Outpatient NICKY THOMPSON MD [facility] RAD BREAST PAIN LT [id number] 11/10/2017 09:15:00 018 23:59:59 CLS Preadmit DONNA CULLEN, NICKY [place] [facility] RAD N64.4 BREAST PAIN LT [id number] 09/13/2017 15:03:00 017 17:36:00 DIS Emergency OLIVA STALEY [employer] [facility] ER CHILLS,SORE THROAT,SOB [id number] 08/10/2017 11:29:00 017 12:54:00 DIS Emergency JANELLE ESPITIA [employer] SPECIALIST [facility] ER CP [id number] 05/26/2017 09:37:00 017 23:59:59 CLS Outpatient NICKY THOMPSON MD [facility] RAD SCREENING Z12.31 [id number] 05/08/2017 08:06:00 017 23:59:59 CLS Outpatient MAJOR GIPSON [employer] [facility] RAD DYSPNEA,LEG AUTUMN N [id number] 05/07/2017 17:59:00 017 18:57:00 DIS Emergency JANELLE ESPITIA [employer]IST [facility] ER PT FELL/LT ARM INJ [id number] 04/30/2017 14:21:00 017 15:53:00 DIS Emergency DAVID CULLEN, LAYTON Spencer [facility] ER NAUSEA/FEVER [id number] 04/29/2017 15:19:00 017 23:59:59 CLS Outpatient MAJOR GIPSON [employer]IST [facility] RAD SOB [id number] 03/05/2017 08:48:00 017 12:30:00 DIS Out[facility] CHONDROMALACIA PATELLA RIGHT KNEE [id number] 02/28/2017 10:26:00 017 10:57:00 DIS Outpatient KISHA BALDWIN MD [facility] PREOP RIGHT KNEE SCOPE [id number] 02/09/2017 08:27:00 017 10:43:00 DIS Emergency HERMELINDA CULLEN, LAUREL Velasco [facility] ER R KNEE TO FOOT PAIN [id number] 01/30/2017 20:20:00 017 21:57:00 DIS Emergency JANELLE ESPITIA APRN [facility] ER POSSIBLE BLOOD CLOT IN R LEG [id number] 11/28/2016 11:41:00 017 23:59:59 CLS Outpatient CECELIA CULLEN, Nia WILSON [facility] CARD COPD,CHEST PAIN,DM [id number] 11/27/2016 12:52:00 017 23:59:59 CLS Outpatient CECELIA CULLEN, Nia WILSON [facility] CARD COPD,CHEST PAIN,DM,HLP [id number] 11/22/2016 14:41:00 017 16:20:00 DIS Emergency RAQUEL ROLDAN [facility] ER YEAST INFECTION [id number] 11/04/2016 09:43:00 017 23:59:59 CLS Outpatient KYLAH CULLEN, PATRIC Saucedo [facility] RAD RIGHT LOWER QUAD PAIN [id number] 11/03/2016 09:43:00 017 11:33:00 DIS Emergency YOUNG CULLEN, CHRISTO Huston [facility] ER CHEST PAIN/SORE THROAT [id number] 10/16/2016 15:43:00 017 18:41:00 DIS Emergency LUNA LEGER MD [facility] ER ABD PAIN [id number] 09/19/2016 11:20:00 016 17:40:00 DIS Outpatient STEPHANE KIMBLE DO [facility] SDC DYSKNESIA [id number] 09/16/2016 05:48:00 14:05:00 DIS Outpatient STEPHANE KIMBLE DO [facility] PREOP DYSKNESIA [id number] 09/13/2016 04:41:00 08:35:00 DIS Emergency DAVDI CULLEN, LAYTON Spencer [facility] ER SORE THROAT,CONSTIPATION,CHEST PAIN [id number] 09/03/2016 09:53:00 23:59:59 CLS Outpatient DONNA CULLEN, NICKY Lawrence [facility] RAD RUQ PAIN [id number] 08/24/2016 15:39:00 17:34:00 DIS Emergency JANELLE ESPITIA APRN [facility] ER BACK PAIN [id number] 08/15/2016 10:42:00 12:18:00 DIS Emergency JANELLE ESPITIA APRN [facility] ER SOA [id number] 08/03/2016 13:42:00 15:35:00 DIS Emergency YOUNG CULLEN, CHRISTO Huston [facility] ER SORE THROAT/PAINFUL TON DUSTY/THROAT CLOSING [id number] 08/01/2016 12:59:00 23:59:59 CLS Outpatient ZAHIRA PETERSEN DO [facility] RAD LUNG NODULE,SOB,MORBID OBESITY,ALLERGIC RHINITIS [id number] 07/18/2016 14:05:00 15:11:00 DIS Emergency JANELLE ESPITIA APRN [facility] ER CHEST PAIN [id number] 07/11/2016 07:47:00 23:59:59 CLS Outpatient EDI FAUSTIN DO [facility] RAD RUQ ABD PAIN [id number] 07/02/2016 12:50:00 16:44:00 DIS Emergency AFRICA CULLEN, LUNA Christianson [facility] ER LOWER BACK PAIN /VOMITING [id number] 06/28/2016 12:40:00 23:59:59 CLS Outpatient EDI FAUSTIN DO [facility] RAD LOWER ABD PAIN, HURTS TO PALPITATE WORSE ON LT SIDE [id number] 06/24/2016 08:15:00 23:59:59 CLS Preadmit ZAHIRA PETERSEN DO [facility] PULM SOB,DYSPNEA,MORBID OBESITY,ALLERGIC RHINITIS [id number] 04/09/2016 09:00:00 00:01:00 DIS Outpatient ZAHIRA PETERSEN DO [facility] PULM SOB,DYSPNEA,MORBID OBESITY,ALLERGIC RHINITIS [id number] 06/18/2016 15:18:00 16:35:00 DIS Emergency JANELLE ESPITIA APRN [facility] ER ABD PAIN,NAUSEA [id number] 06/09/2016 15:11:00 20:36:00 DIS Emergency LAYTON HERNANDEZ MD [facility] ER LIGHT HEADED/DI ZZY/BACK PAIN [id number] 05/24/2016 08:43:00 23:59:59 CLS Outpatient EDI FAUSTIN DO [facility] RAD SEVERE L BREAST PAIN [id number] 05/15/2016 11:59:00 13:58:00 DIS Emergency LUNA LEGER MD [facility] ER BACK/LEFT BREAS T PAIN [id number] 05/08/2016 09:48:00 15:15:00 DIS Outpatient KISHA BALDWIN MD [facility] SDC LEFT KNEE CHONDROMALAS IA [id number] 05/01/2016 12:54:00 16:15:00 DIS Outpatient KISHA BALDWIN MD [facility] PREOP LEFT KNEE CHONDROMALAC IA [id number] 03/27/2016 10:23:00 13:05:00 DIS Emergency LUNA LEGER MD [facility] ER CHEST PAIN [id number] 02/28/2016 08:51:00 23:59:59 CLS Outpatient ZAHIRA PETERSEN DO [facility] LAB ALLERGIC RHINITIS, SOB DYSPNEA [id number] 02/21/2016 21:45:00 02:03:00 DIS Emergency RAQUEL ROLDAN [facility] ER BACK PAIN [id number] 02/14/2016 08:34:00 13:15:00 DIS Outpatient KISHA BALDWIN MD [facility] SDC RIGHT INDEX FINGER CYS T [id number] 02/06/2016 14:44:00 16:11:00 DIS Outpatient KISHA BALDWIN MD [facility] PREOP RIGHT INDEX FINGER CYS T [id number] 01/26/2016 14:10:00 17:00:00 DIS Emergency SIERRA GOMEZ MD [facility] ER CHEST PAIN/LEFT SIDE NU MBNESS [id number] 01/24/2016 15:04:00 23:59:59 CLS Outpatient MAJOR GIPSON APRN [facility] RT SOA, DYSPNEA [id number] 01/19/2016 15:25:00 18:25:00 DIS Emergency JANELLE ESPITIA APRN [facility] ER LEFT SIDED BODY PAIN [id number] 12/20/2015 10:03:00 15:35:00 DIS Outpatient KISHA BALDWIN MD [facility] SDC RIGHT FINGER CYST [id number] 12/19/2015 16:48:00 23:59:59 CLS Outpatient EDI FAUSTIN DO [facility] RAD LEFT RIB PAIN [id number] 12/16/2015 09:03:00 10:50:00 DIS Emergency CHELSI GARCIA MD [facility] ER CHEST WALL/BACK PAIN [id number] 12/15/2015 10:52:00 15:44:00 DIS Outpatient KISHA BALDWIN MD [facility] PREOP CYST RIGHT FINGER [id number] 11/29/2015 09:37:00 23:59:59 CLS Outpatient KISHA CARRILLO MD [facility] RAD DSYPHAGIA [id number] 11/18/2015 12:02:00 12:30:00 DIS Emergency CHELSI GARCIA MD [facility] ER SOA/COUGH/CHEST CONGEST ION [id number] 11/13/2015 10:57:00 23:59:59 CLS Outpatient KISHA CARRILLO MD [facility] RAD DYSPHAGIA OTHER, HOARSE NESS [id number] 11/09/2015 21:02:00 05:45:00 DIS Outpatient KISHA CARRILLO MD [facility] SLEEP CHRONIC OBSTRUCTIVE SLE EP APNEA [id number] 10/25/2015 06:55:00 11:38:00 DIS Outpatient KISHA BALDWIN MD [facility] SDC LEFT ROTATOR CUFF TEAR [id number] 10/20/2015 10:31:00 23:59:59 CLS Outpatient KISHA BALDWIN MD [facility] PREOP LEFT SHOULDER TORN ROT ATOR CUFF [id number] 10/14/2015 14:28:00 16:16:00 DIS Emergency LAYTON HERNANDEZ MD [facility] ER CHEST PAIN [id number] 09/24/2015 08:45:00 10:53:00 DIS Emergency SIERRA GOMEZ MD [facility] ER COUGH CONGESTION RIB PA IN [id number] 09/18/2015 10:53:00 23:59:59 CLS Outpatient EDI FAUSTIN DO [facility] RAD BRONCHITIS [id number] 09/14/2015 16:38:00 18:52:00 DIS Emergency JANELLE ESPITIA APRN [facility] ER CHEST WALL PAIN, SORE T HROAT, COUGH [id number] 08/22/2015 11:40:00 23:59:59 CLS Outpatient EDI FAUSTIN DO [facility] RAD PNEUMONIA [id number] 08/12/2015 14:32:00 16:26:00 DIS Emergency JANELLE ESPITIA [employer]IST [facility] ER DIFF BREATHING/COUGH [id number] 08/08/2015 12:17:00 23:59:59 CLS Outpatient KISHA BALDWIN MD [facility] RAD RTC TEAR [id number] 07/27/2015 10:36:00 13:12:00 DIS Emergency JANELLE ESPITIA C[employer]ER [employer]IST [facility] ER CHEST PAIN [id number] 07/14/2015 11:29:00 23:59:59 CLS Outpatient EDI FAUSTIN DO [facility] RAD SCREENING [id number] 06/13/2015 13:07:00 14:53:00 DIS Emergency JANELLE ESPITIA CUST[employer]ER [employer]IST [facility] ER ABD PAIN [id number] 06/08/2015 20:58:00 21:58:00 DIS Emergency RAQUEL ROLDAN [facility] ER DROWSINESS,VAG ITCHING /IRRITATION [id number] 05/21/2015 12:06:00 13:10:00 DIS Emergency LUNA LEGER MD [facility] ER ALLERGIC REACTI ON [id number] 04/16/2015 21:00:00 09:50:00 DIS Inpatient ANDERS CARRERO DO [facility] SURGICAL UTI [id number] 04/09/2015 13:44:00 16:42:00 DIS Emergency RAQUEL ROLDAN [facility] ER FEVER [id number] 05/01/2018 13:39:00 Document Registration
--- NOTE | 2020-01-05 23:05 | ED Chest Pain ---
General Chief Complaint: Chest Pain Stated Complaint: CHEST PAIN,SOB Source: patient Exam Limitations: no limitations (JANELLE ESPITIA APRN) History of Present Illness Date Seen by Provider: Jan 05, 2020 Time Seen by Provider: 23:03 Initial Comments To ER with reports of chest pain and shortness of breath as well as a cough. The pain is worse with deep breathing onset today. No fevers. Timing/Duration: constant Severity/Quality: moderate Location: substernal Radiation: no radiation Activities at Onset: none ASA po ULTRASOUND TECHNOLOGIST: No NTG SL ULTRASOUND TECHNOLOGIST: No (JANELLE ESPITIA APRN) Allergies and Home Medications Allergies Coded Allergies: nickel (Verified Allergy, Intermediate, RASH, 01/06/19) doxycycline (Verified Allergy, Mild, HIVES, 01/06/19) Iodinated Contrast Media (Verified Allergy, Unknown, 01/06/19) cobalt (Verified Allergy, Unknown, Hives, 06/24/19) penicillin (Verified Allergy, Unknown, HAS RECEIVED ROCEPHIN, 06/30/19) rash Uncoded Allergies: hexachloride (Allergy, Unknown, Hives, 06/24/19) Home Medications Albuterol Sulfate 1 Puff Puff, 2 PUFF IH Q4H PRN for WHEEZING, (Reported) 1 PUFF = 90 MCG Baloxavir Marboxil 40 Mg Tablet, 40 MG PO DAILY Prescribed by: JANELLE ESPITIA on 11/10/19 1428 Fluoxetine HCl 40 Mg Capsule, 40 MG PO DAILY, (Reported) Fluticasone Propionate 9.9 Ml [place].susp, 1 SPRAY NS BID, (Reported) Fluticasone/Vilanterol 1 Each Blst.w.dev, 1 EACH IH DAILY, (Reported) Hydrocodone Bit/Acetaminophen 1 Each Tablet, 1 TAB PO Q4H PRN for PAIN-MODERATE Prescribed by: OLIVA HOUSE on 06/30/19 1055 Levofloxacin 500 Mg Tablet, 500 MG PO DAILY Prescribed by: ARELY KOROMA on 08/05/191806 Metformin HCl 1,000 Mg Tablet, 1,000 MG PO BID, (Reported) Pantoprazole Sodium 40 Mg Tablet.dr, 40 MG PO DAILY Prescribed by: STEPHANE KIMBLE on 12/22/18 1218 Prednisone 20 Mg Tab, 40 MG PO DAILY Prescribed by: ARELY KOROMA on 08/05/191806 Prednisone 20 Mg Tab, 40 MG PO DAILY Prescribed by: JANELLE ESPITIA on 11/10/19 1504 Patient Home Medication List Home Medication List Reviewed: Yes (JANELLE ESPITIA APRN) Review of Systems Review of Systems Constitutional: see HPI EENTM: No Symptoms Reported Respiratory: See HPI, Cough, Shortness of Air Cardiovascular: No Symptoms Reported Gastrointestinal: No Symptoms Reported Genitourinary: No Symptoms Reported Musculoskeletal: no symptoms reported Skin: no symptoms reported Psychiatric/Neurological: No Symptoms Reported Endocrine: No Symptoms Reported Hematologic/Lymphatic: No Symptoms Reported (JANELLE ESPITIA APRN) Past Cnoheww-Nqksqw-Iewzqi Hx Patient Social History Type Used: Cigarettes Former Smoker, Quit: May 01, 2008 2nd Hand Smoke Exposure: No Recent Hopitalizations: No (JANELLE ESPITIA APRN) Immunizations Up To Date Tetanus Booster (TDap): Unknown PED Vaccines UTD: No Date of Pneumonia Vaccine: Mar 13, 2018 Date of Influenza Vaccine: Jul 06, 2018 (JANELLE ESPITIA APRN) Seasonal Allergies Seasonal Allergies: Yes (JANELLE ESPITIA APRN) Past Medical History Surgeries: Yes (bilat CTR, L KNEE x12, L shoulder, L TKR, back sx) Abdominal, Gallbladder, Hysterectomy, Oophorectomy, Orthopedic Respiratory: Yes (CPAP) Asthma, Sleep Apnea, COPD Currently Using CPAP: Yes Cardiac: No High Cholesterol Neurological: No Reproductive Disorders: No 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 Sexually Transmitted Disease: No HIV/AIDS: No Genitourinary: Yes Kidney Infection, Bladder Infection, UTI-Chronic Gastrointestinal: Yes (INFLAMATION IN COLON, VENTRAL HERNIA) Gastroesophageal Reflux, Chronic Constipation, Chronic Diarrhea, Irritable Bowel Musculoskeletal: Yes (RESTLESS LEG SYNDROME) Arthritis, Fibromyalgia, Chronic Back Pain Endocrine: Yes (OBESITY) Diabetes, Non-Insulin dep HEENT: Yes (GLASSES) Loss of Vision: Bilateral Hearing Impairment: Denies Cancer: No Psychosocial: Yes Anxiety, Bipolar Integumentary: No Blood Disorders: No Adverse Reaction/Blood Tranf: No (N/A) (JANELLE ESPITIA APRN) Family Medical History Arthritis 19 MOTHER, Onset:Unknown Asthma 19 FATHER, Onset:Unknown Cataracts 19 MOTHER, Onset:Unknown Diabetes mellitus 19 MOTHER, Onset:Unknown FH: COPD (chronic obstructive pulmonary disease) 19 FATHER, Onset:Unknown Hypercholesterolemia 19 MOTHER MS (multiple sclerosis) G8 SISTER, Onset:Unknown No Pertinent Family Hx (JANELLE ESPITIA APRN) Physical Exam Vital Signs Vital Signs - First Documented 01/05/20 23:00 Temp 36.9 Pulse 73 Resp 20 B/P (MAP) 159/82 (107) Pulse Ox 97 O2 Delivery Room Air (LAUREL SHEN) Vital Signs Capillary Refill : (JANELLE ESPITIA APRN) Height, Weight, BMI Height: 5'9.00" Weight: 288lbs. 0.0oz. 130.214617vm; 40.00 BMI Method:Stated General Appearance: No Apparent Distress, WD/WN, Anxious, Obese HEENT: PERRL/EOMI, TMs Normal Respiratory: Chest Non Tender, Lungs Clear, Normal Breath Sounds, No Accessory Muscle Use, No Respiratory Distress Cardiovascular: Regular Rate, Rhythm, Normal Peripheral Pulses Gastrointestinal: Normal Bowel Sounds, Non Tender, Soft Extremity: Normal Capillary Refill, Normal Inspection Neurologic/Psychiatric: Alert, Oriented x3 Skin: Normal Color, Warm/Dry (JANELLE ESPITIA APRN) Progress/Results/Core Measures Results/Orders Lab Results Laboratory Tests Test 01/05/20 23:00 Range/Units White Blood Count 10.5 4.3-11.0 10^3/uL Red Blood Count 4.97 4.35-5.85 10^6/uL Hemoglobin 13.6 11.5-16.0 G/DL Hematocrit 41 35-52 % Mean Corpuscular Volume 82 80-99 FL Mean Corpuscular Hemoglobin 27 25-34 PG Mean Corpuscular Hemoglobin Concent 33 32-36 G/DL Red Cell Distribution Width 14.1 10.0-14.5 % Platelet Count 219 130-400 10^3/uL Mean Platelet Volume 11.7 H 7.4-10.4 FL Neutrophils (%) (Auto) 54 42-75 % Lymphocytes (%) (Auto) 38 12-44 % Monocytes (%) (Auto) 5 0-12 % Eosinophils (%) (Auto) 3 0-10 % Basophils (%) (Auto) 0 0-10 % Neutrophils # (Auto) 5.7 1.8-7.8 X 10^3 Lymphocytes # (Auto) 4.0 1.0-4.0 X 10^3 Monocytes # (Auto) 0.6 0.0-1.0 X 10^3 Eosinophils # (Auto) 0.3 0.0-0.3 10^3/uL Basophils # (Auto) 0.0 0.0-0.1 10^3/uL Prothrombin Time 12.4 12.2-14.7 SEC INR Comment 0.9 0.8-1.4 Activated Partial Thromboplast Time 29 24-35 SEC Sodium Level 139 135-145 MMOL/L Potassium Level 4.2 3.6-5.0 MMOL/L Chloride Level 104 98-107 MMOL/L Carbon Dioxide Level 21 21-32 MMOL/L Anion Gap 14 5-14 MMOL/L Blood Urea Nitrogen 11 7-18 MG/DL Creatinine 0.91 0.60-1.30 MG/DL Estimat Glomerular Filtration Rate > 60 BUN/Creatinine Ratio 12 Glucose Level 109 H 70-105 MG/DL Calcium Level 9.5 8.5-10.1 MG/DL Corrected Calcium 9.3 8.5-10.1 MG/DL Magnesium Level 1.7 1.6-2.4 MG/DL Total Bilirubin 0.5 0.1-1.0 MG/DL Aspartate Amino Transf (AST/SGOT) 36 H 5-34 U/L Alanine Aminotransferase (ALT/SGPT) 40 0-55 U/L Alkaline Phosphatase 103 40-136 U/L Myoglobin 35.5 10.0-92.0 NG/ML Troponin I < 0.028 <0.028 NG/ML B-Type Natriuretic Peptide < 10.0 <100.0 PG/ML Total Protein 7.8 6.4-8.2 GM/DL Albumin 4.2 3.2-4.5 GM/DL (LAUREL SHEN) My Orders Orders - LAUREL SHEN Ketorolac Injection (Toradol Injection) (01/05/20 22:42) Aspirin Chewable Tablet (Baby Aspirin Ch (01/05/20 22:43) (LAUREL SHEN) Medications Given in ED Current Medications Medications Dose Ordered Sig/Veronika Route Start Time Stop Time Status Last Admin Dose Admin Aspirin 324 mg ONCE ONCE PO 01/05/20 23:00 01/05/20 23:01 DC 01/05/20 23:00 324 MG Ketorolac Tromethamine 15 mg ONCE ONCE IVP 01/05/20 23:00 01/05/20 23:01 DC 01/05/20 23:00 15 MG (LAUREL SHEN) Vital Signs/I&O 01/05/20 01/05/20 23:00 23:12 Temp 36.9 Pulse 73 Resp 20 B/P (MAP) 159/82 (107) Pulse Ox 97 O2 Delivery Room Air Room Air (LAUREL SHEN) Progress Progress Note : Progress Note Unremarkable labs and chest x-ray. Symptoms improved with NSAIDs. Pleurisy. (LAUREL SHEN) Departure Impression Primary Impression: Pleuritic chest pain Disposition: HOME, SELF-CARE Condition: Improved Departure-Patient Inst. Decision time for Depature: 23:45 (LAUREL SHEN) Referrals: NICKY THOMPSON MD (PCP/Family) Primary Care Physician Patient Instructions: Pleuritic Chest Pain (DC) Add. Discharge Instructions: Naprosyn 2 tablets twice a day for the next 1-2 weeks. Follow-up with primary care as necessary. Topical creams such as Vicks or Mentholatum help with congestion. All discharge instructions reviewed with patient and/or family. Voiced understanding. JANELLE ESPITIA CRAFT SUPERINTENDENT Jan 05, 2020 23:05 LAUREL SHEN Jan 05, 2020 23:49
[2020-01-05 23:08] LABS: BASOPHILS % (AUTO) 0 % (0-10); EOSINOPHILS # (AUTO) 0.3 10^3/uL (0.0-0.3); EOSINOPHILS % (AUTO) 3 % (0-10); HEMATOCRIT 41 % (35-52); HEMOGLOBIN 13.6 G/DL (11.5-16.0); LYMPHOCYTES % (AUTO) 38 % (12-44); MEAN CORPUSCULAR HEMOGLOBIN 27 PG (25-34); MEAN CORPUSCULAR HGB CONC 33 G/DL (32-36); MEAN CORPUSCULAR VOLUME 82 FL (80-99); MEAN PLATELET VOLUME 11.7 FL (7.4-10.4); MONOCYTES # (AUTO) 0.6 X 10^3 (0.0-1.0); MONOCYTES % (AUTO) 5 % (0-12); NEUTROPHILS # (AUTO) 5.7 X 10^3 (1.8-7.8); NEUTROPHILS % (AUTO) 54 % (42-75); PLATELET COUNT 219 10^3/uL (130-400); RED CELL DISTRIBUTION WIDTH 14.1 % (10.0-14.5); WHITE BLOOD COUNT 10.5 10^3/uL (4.3-11.0)
[2020-01-05 23:19] LABS: ALBUMIN 4.2 GM/DL (3.2-4.5); CHLORIDE 104 MMOL/L (98-107); POTASSIUM 4.2 MMOL/L (3.6-5.0); SODIUM 139 MMOL/L (135-145)
[2020-01-05 23:20] LABS: INR 0.9 (0.8-1.4); PROTHROMBIN TIME PATIENT 12.4 SEC (12.2-14.7)
[2020-01-05 23:21] LABS: CALCIUM 9.5 MG/DL (8.5-10.1)
[2020-01-05 23:22] LABS: GLUCOSE 109 MG/DL (70-105); TOTAL PROTEIN 7.8 GM/DL (6.4-8.2)
[2020-01-05 23:23] LABS: BILIRUBIN,TOTAL 0.5 MG/DL (0.1-1.0); CARBON DIOXIDE 21 MMOL/L (21-32)
[2020-01-05 23:25] LABS: ALKALINE PHOSPHATASE 103 U/L (40-136); CREATININE SERUM 0.91 MG/DL (0.60-1.30); GFR ESTIMATED > 60
[2020-01-05 23:26] LABS: BUN/CREATININE RATIO 12
[2020-01-05 23:28] LABS: ALANINE AMINOTRANSFERASE 40 U/L (0-55); MAGNESIUM 1.7 MG/DL (1.6-2.4)
[2020-01-06 00:03] VITALS: BP 127/80
--- NOTE | 2020-01-06 07:56 | Diagnostic Imaging Report ---
INDICATION: Chest pain EXAMINATION: Portable chest 11:19 PM. Heart size and pulmonary vascularity are normal. Lungs are clear. There are no effusions or pneumothoraces. IMPRESSION: Negative chest. Dictated by: Dictated on workstation # [id number]
== END 2020-01-06 00:06 | disposition home or self-care (01) ==
LOC: EDUNIT# 22:42 → ER 22:44
DX: R07.81 Pleurodynia (principal); M79.7 Fibromyalgia; J44.9 Chronic obstructive pulmonary disease, unspecified; K21.9 Gastro-esophageal reflux disease without esophagitis; F41.9 Anxiety disorder, unspecified; G47.30 Sleep apnea, unspecified; E78.00 Pure hypercholesterolemia, unspecified; E66.9 Obesity, unspecified; M19.91 Primary osteoarthritis, unspecified site; F31.9 Bipolar disorder, unspecified; Z87.891 Personal history of nicotine dependence
CPT/HCPCS: 36415; 71045; 80053; 83735; 83874; 83880; 84484; 85025; 85610; 85730; 93041

== ENCOUNTER 2020-03-09 11:24 | Emergency (ER) | payer MEDICARE, MEDICAID ==
[~2020-03-09] VITALS: Ht 175.2 cm; Wt 81.6 kg
[~2020-03-09 11:24] MED LIST changes: -KETOROLAC 30 MG/ML VIAL ONE
[2020-03-09] MEDS ORDERED: SULF1TAB35 PO (12:47)
[2020-03-09] MEDS ORDERED: NSTR15C TP (12:47)
--- NOTE | 2020-03-09 12:47 | ED Integumentary General ---
General Chief Complaint: Skin/Wound Problems Stated Complaint: MRSA Nursing Triage Note: went to PCP yesterday and told PCP that she has a rash under her R breast, was given a cream but can not afford prescription, states the rash has worsened and is very painful (OLIVA STALEY) History of Present Illness Date Seen by Provider: Mar 09, 2020 Time Seen by Provider: 12:15 Initial Comments Patient seen and evaluated by the medical student, her assessment was also completed by myself, reviewed all documentation and agreed. (OLIVA STALEY) Initial Comments Mrs. Hannah is a 59 year old female that presents to the emergency department today with complaints of a painful rash and lesion under her R breast. She states they began 2 days ago. She was seen through walk-in at [facility] yesterday (03/08/20) and prescribed a cream which she did not get filled at the pharmacy due to cost. Since being seen yesterday Malina states the rash has gotten more painful and irritated. She denies fever, chills, shortness of breath, or drainage from the area. She does admit to some nausea but no vomiting. She has tried over the counter triple antibiotic cream to the area with no alleviation. She states she has never had anything similar to this in the past. Timing/Duration: getting worse Associated Symptoms: No edema, No fever; headache; No hives, No paresthesia; rash; No sore throat (MANDY RUVALCABA,MED STUDENT) Allergies and Home Medications Allergies Coded Allergies: nickel (Verified Allergy, Intermediate, RASH, 01/06/19) doxycycline (Verified Allergy, Mild, HIVES, 01/06/19) Iodinated Contrast Media (Verified Allergy, Unknown, 01/06/19) cobalt (Verified Allergy, Unknown, Hives, 06/24/19) penicillin (Verified Allergy, Unknown, HAS RECEIVED ROCEPHIN, 06/30/19) rash Uncoded Allergies: hexachloride (Allergy, Unknown, Hives, 06/24/19) Home Medications Albuterol Sulfate 1 Puff Puff, 2 PUFF IH Q4H PRN for WHEEZING, (Reported) 1 PUFF = 90 MCG Baloxavir Marboxil 40 Mg Tablet, 40 MG PO DAILY Prescribed by: JANELLE ESPITIA on 11/10/19 1428 Fluoxetine HCl 40 Mg Capsule, 40 MG PO DAILY, (Reported) Fluticasone Propionate 9.9 Ml [place].susp, 1 SPRAY NS BID, (Reported) Fluticasone/Vilanterol 1 Each Blst.w.dev, 1 EACH IH DAILY, (Reported) Hydrocodone Bit/Acetaminophen 1 Each Tablet, 1 TAB PO Q4H PRN for PAIN-MODERATE Prescribed by: OLIVA HOUSE on 06/30/19 1055 Levofloxacin 500 Mg Tablet, 500 MG PO DAILY Prescribed by: ARELY KOROMA on 08/05/19 1807 Metformin HCl 1,000 Mg Tablet, 1,000 MG PO BID, (Reported) Nystatin/Triamcinolone 15 Gm Cr, 1 TUBE TP TID apply thin layer to affected area three times daily Prescribed by: OLIVA STALEY on 03/09/20 1247 Pantoprazole Sodium 40 Mg Tablet.dr, 40 MG PO DAILY Prescribed by: STEPHANE KIMBLE on 12/22/18 1218 Prednisone 20 Mg Tab, 40 MG PO DAILY Prescribed by: ARELY KOROMA on 08/05/19 180 Prednisone 20 Mg Tab, 40 MG PO DAILY Prescribed by: JANELLE ESPITIA on 11/10/19 1504 Sulfamethoxazole/Trimethoprim 1 Each Tablet, 1 EACH PO BID Prescribed by: OLIVA STALEY on 03/09/20 1247 Patient Home Medication List Home Medication List Reviewed: Yes (MANDY RUVALCABA,MED STUDENT) Review of Systems Review of Systems Constitutional: No chills, No fever EENTM: no symptoms reported Respiratory: no symptoms reported Cardiovascular: no symptoms reported Gastrointestinal: No abdominal pain, No constipation, No diarrhea, No heartburn; nausea; No vomiting Genitourinary: no symptoms reported Musculoskeletal: no symptoms reported Skin: other (rash at right breast skin fold ) Psychiatric/Neurological: Headache; Denies Numbness (MANDY RUVALCABA,MED STUDENT) Past Tmmzzyh-Otfewj-Gpkfvz Hx Patient Social History Alcohol Use: Denies Use Recreational Drug Use: No Type Used: Cigarettes Former Smoker, Quit: May 01, 2008 2nd Hand Smoke Exposure: No Recent Foreign Travel: No Contact w/Someone Who Travel: No Recent Infectious Disease Expo: No Recent Hopitalizations: No (OLIVA STALEY) Immunizations Up To Date Tetanus Booster (TDap): Unknown PED Vaccines UTD: No Date of Pneumonia Vaccine: Mar 13, 2018 Date of Influenza Vaccine: Jul 06, 2018 (OLIVA STALEY) Seasonal Allergies Seasonal Allergies: Yes (OLIVA STALEY) Past Medical History Surgeries: Yes (bilat CTR, L KNEE x12, L shoulder, L TKR, back sx) Abdominal, Gallbladder, Hysterectomy, Oophorectomy, Orthopedic Respiratory: Yes (CPAP) Asthma, Sleep Apnea, COPD Currently Using CPAP: Yes Cardiac: No High Cholesterol Neurological: No Reproductive Disorders: No 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 [employer] History: Hysterectomy Sexually Transmitted Disease: No HIV/AIDS: No Genitourinary: Yes Kidney Infection, Bladder Infection, UTI-Chronic Gastrointestinal: Yes (INFLAMATION IN COLON, VENTRAL HERNIA) Gastroesophageal Reflux, Chronic Constipation, Chronic Diarrhea, Irritable Bowel Musculoskeletal: Yes (RESTLESS LEG SYNDROME) Arthritis, Fibromyalgia, Chronic Back Pain Endocrine: Yes (OBESITY) Diabetes, Non-Insulin dep HEENT: Yes (GLASSES) Loss of Vision: Bilateral Hearing Impairment: Denies Cancer: No Psychosocial: Yes Anxiety, Bipolar Integumentary: No Blood Disorders: No Adverse Reaction/Blood Tranf: No (N/A) (OLIVA STALEY) Family Medical History Arthritis 19 MOTHER, Onset:Unknown Asthma 19 FATHER, Onset:Unknown Cataracts 19 MOTHER, Onset:Unknown Diabetes mellitus 19 MOTHER, Onset:Unknown FH: COPD (chronic obstructive pulmonary disease) 19 FATHER, Onset:Unknown Hypercholesterolemia 19 MOTHER MS (multiple sclerosis) G8 SISTER, Onset:Unknown No Pertinent Family Hx (OLIVA STALEY) Physical Exam Vital Signs Vital Signs - First Documented 03/09/20 03/09/20 11:39 12:50 Temp 36.8 Pulse 80 Resp 18 B/P (MAP) 124/72 (89) Pulse Ox 97 O2 Delivery Room Air ([facility]) Vital Signs Capillary Refill : Less Than 3 Seconds (OLIVA STALEY) General Appearance: WD/WN, no apparent distress HEENT: PERRL/EOMI Neck: non-tender, supple Cardiovascular: regular rate, rhythm, no murmur Respiratory: chest non-tender, lungs clear, normal breath sounds, no respiratory distress, no accessory muscle use Gastrointestinal: normal bowel sounds, non tender, soft Extremities: no pedal edema, no calf tenderness Neurologic/Psychiatric: alert, normal mood/affect, oriented x 3 Skin: other (erythematous patches along R breast fold,erythematous abscess no induration, fluctuance, or warmth under breast at right mid axillary line ) Skin Problem Character: abscess, patchy, rash (MANDY RUVALCABA,PHIL PEGUERO) Progress/Results/Core Measures Results/Orders Vital Signs/I&O 03/09/20 03/09/20 11:39 12:50 Temp 36.8 36.8 Pulse 80 76 Resp 18 18 B/P (MAP) 124/72 (89) 120/72 (89) Pulse Ox 97 O2 Delivery Room Air (MANDY RUVALCABA MED STUDENT) Blood Pressure Mean: 89 Departure Impression Primary Impression: Abscess Additional Impression: Tinea corporis Disposition: HOME, SELF-CARE Condition: Improved Departure-Patient Inst. Decision time for Depature: 12:40 (OLIVA STALEY) Referrals: NICKY THOMPSON MD (PCP/Family) Primary Care Physician Patient Instructions: Fungal Skin Rash (DC), Methicillin-Resistant Staphylococc us aureus (MRSA), Skin Abscess Add. Discharge Instructions: Keep skin under right breast pain to, clean and dry. Apply antifungal cream as directed. Clean abscess under right breast with peroxide, soap and water. Follow-up with your primary care provider if symptoms are not improving or worsen. Return to the emergency department for new, urgent health care needs. All discharge instructions reviewed with patient and/or family. Voiced understanding. Scripts Nystatin/Triamcinolone (Nystatin-Triamcinolone Cream) 15 Gm Cr 1 TUBE TP TID, #1 TUBE 0 Refills apply thin layer to affected area three times daily Prov: OLIVA STALEY 03/09/20 Sulfamethoxazole/Trimethoprim (Bactrim Ds Tablet) 1 Each Tablet 1 EACH PO BID, #14 TAB 0 Refills Prov: OLIVA STALEY 03/09/20 Patient seen and evaluated initially by medical student all assessments by this provider and documentation was reviewed. Final treatment plan provided. (OLIVA STALEY) OLIVA STALEY Mar 09, 2020 12:47 MANDY RUVALCABA MED STUDENT Mar 09, 2020 13:04
[2020-03-09 12:50] VITALS: BP 120/72
--- OUTSIDE RECORDS SUMMARY | 2020-03-09 13:28 | XMS REPORT ---
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 Name Role Phone NICKY THOMPSON Unavailable PROBLEMS Type Condition ICD9-CM Code HPG06-DF Code Onset Dates Condition S tatus SNOMED Code Problem 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.33 Active 61891733 Problem Cardiomegaly I51.7 Active 4630499 Problem BMI 40.0-44.9, adult Z68.41 Active 085279021 Problem Chronic bronchitis, unspecified chronic bronchitis type J42 Active 76585339 Problem History of arthroplasty of left knee Z96.652 Active 394560258 Problem Diabetic peripheral neuropathy E11.42 Active 122124764 Problem Other chronic pain G89.29 Active 8 8487617 Problem Back pain with left-sided sciatica M54.32 Active 49833614 Problem Type 2 diabetes mellitus with hyperglycemia E11.65 Active [id number] Problem Constipation, unspecified constipation type K59.00 Active 08157846 Problem History of colon polyps Z86.010 Active 145161794 Problem Mild episode of recurrent major depressive disorder F33.0 Active 418685069 Problem Hyperlipidemia, unspecified hyperlipidemia type E7 8.5 Active 94487209 ALLERGIES No Information ENCOUNTERS Encounter Location Date Diagnosis [place] [address] [address] [facility] [id number] [address] [place] [phone] January, [place] [address] [address] [facility] [id number] [address] [place] [phone] January, [place] [address] [address] [facility] [id number] [address] [place] [id number] 30 Dec, 2019 Diabetic peripheral neuropat hy E11.42 ; Type 2 diabetes mellitus with hyperglycemia E11.65 ; Cardiomegaly I51.7 ; Hyperlipidemia, unspecified hyperlipidemia type E78.5 ; Chronic bronchitis, unspecified chronic bronchitis type J42 ; BMI 40.0-44.9, adult Z68.41 and Back pain with left-sided sciatica M54.32 [facility] [address] [place] [id number] [place] [phone] Dec, [facility] [address] [facility] [id number] [address] [place] [phone] Dec, [facility] [address] [address] Nov, [facility] [address] [place] [id number] [place] [phone] Nov, [place] [address] [address] Nov, Type 2 diabetes mellitus wit h hyperglycemia E11.65 ; Diabetic peripheral neuropathy E11.42 and Chronic bronchitis, unspecified chronic bronchitis type J42 [facility] [address] [address] Nov, Headache R51 and Gastroenter itis K52.9 [facility] [address] [place] [id number] [place] [phone] Oct, [facility] [address] [place] [id number] [place] [phone] Sep, Viral upper respiratory illn ess J06.9 [place] [address] [address] [place] [id number] [place] [phone] Sep, Nausea R11.0 and Periumbilic al abdominal pain R10.33 [facility] [address] [place] [id number] [place] [phone] Sep, [facility] [address] [place] [id number] [place] [phone] Jul, [place] [address] [address] [place] [id number] [place] [phone] Jul, Encounter for Medicare annua wellness exam Z00.00 ; Type 2 diabetes mellitus with hyperglycemia E11.65 ; Hyperlipidemia, unspecified hyperlipidemia type E78.5 ; Chronic bronchitis, unspecified chronic bronchitis type J42 ; BMI 40.0-44.9, adult Z68.41 ; Mild episode of recurrent major depressive disorder F33.0 ; Screening for breast cancer Z12.39 ; Cardiomegaly I51.7 ; 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.33 and Other chronic pain G89.29 [place] [address] [address] 14 Apr, 2019 [place] [address] [address] 13 Apr, 2019 Postoperative seroma of subc utaneous tissue after non-dermatologic procedure L76.34 ; Low back pain M54.5 ; Other chronic pain G89.29 ; Type 2 diabetes mellitus with hyperglycemia E11.65 ; BMI 40.0-44.9, adult Z68.41 and Morbid obesity E66.01 [place] [address] [address] Apr, [facility] [place] [address] [address] Feb, Allergic dermatitis L23.9 an d Scabies exposure Z20.89 [place] [address] [address] Dec, [place] [address] [address] Dec, [facility] [place] [address] [address] Nov, Sore throat J02.9 and Chroni c bronchitis, unspecified chronic bronchitis type J42 [place] [address] [address] Nov, Type 2 diabetes mellitus wit h hyperglycemia E11.65 ; 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.33 ; BMI 40.0-44.9, adult Z68.41 ; Chronic bronchitis, unspecified chronic bronchitis type J42 ; Mild episode of recurrent major depressive disorder F33.0 and Hyperlipidemia, unspecified hyperlipidemia type E78.5 [place] [address] [address] [facility] [id number] [address] [place] [phone] Nov, Acute nasopharyngitis J00 ; Acute nonintractable headache, unspecified headache type R51 ; Nausea R11.0 and Morbid obesity E66.01 [place] [address] [address] [facility] [id number] [address] [place] [id number] Oct, Constipation, unspecified co nstipation type K59.00 ; History of colon polyps Z86.010 ; Screening for colon cancer Z12.11 and BMI 40.0-44.9, adult Z68.41 [facility] IN [address] [address] Sep, Acute bronchitis J20.9 [facility] IN [address] [address] Sep, Strep throat J02.0 and Sore throat J02.9 [facility] [place] [id number] [place] [id number] Jul, Sore throat J02.9 and Strep pharyngitis J02.0 [facility] [address] [place] [id number] Jul, Type 2 diabetes mellitus with hyperglyce gian E11.65 and Chronic bronchitis, unspecified chronic bronchitis type J42 [place] [id number] [place] [phone] Jul, [place] [address] [address] [place] [id number] [place] [phone] Jul, Other chronic pain G89.29 [address] [facility] [address] [place] [id number] Jun, History of arthroplasty of left knee Z96 .652 [facility] [address] [id number] [address] [place] [phone] May, Right upper quadrant abdomin al pain R10.11 ; Abdominal pain R10.9 and BMI 40.0-44.9, adult Z68.[address] [address] Apr, Right lower quadrant abdomin al pain R10.31 ; 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.33 ; Type 2 diabetes mellitus with hyperglycemia E11.65 ; BMI 40.0-44.9, adult Z68.41 ; Head lice B85.0 and Yeast infection B37.[address] [address] Mar, Medicare annual wellness vis it, initial Z00.00 ; BMI 40.0-44.9, adult Z68.41 ; Type 2 diabetes mellitus with hyperglycemia E11.65 ; Cardiomegaly I51.7 ; 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.33 ; Chronic bronchitis, unspecified chronic bronchitis type J42 ; Other chronic pain G89.29 ; Dysuria R30.0 and Encounter for immunization Z23 [address] [address] Mar, [place] [address] [address] Dec, [address] [address] Dec, Type 2 diabetes mellitus wit h hyperglycemia E11.65 ; 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 ; BMI 40.0-44.9, adult Z68.41 ; Chronic bronchitis, unspecified chronic bronchitis type J42 ; Muscle cramp R25.2 and Incisional hernia, without obstruction or gangrene K43.2 [place] [address] [address] Nov, [facility] [address] [address] Nov, Abdominal pain, unspecified abdominal location R10.9 ; Constipation, unspecified constipation type K59.00 and BMI 40.0-44.9, adult Z68.41 [place] [id number] [place] [address] Nov, [place] [address] [address] Oct, [place] [address] [address] 08 Oct, 2017 [place] [address] [address] 05 Oct, 2017 Breast pain, left N64.4 and BMI 40.0-44.9, adult Z68.41 [facility] [place] [address] [address] Sep, BMI 40.0-44.9, adult Z68.41 and Multiple wounds of skin R23.8 [facility] [place] [address] [address] Sep, Body aches R52 ; Dysuria R30 .0 and Viral URI J06.9 [place] [address] [address] Aug, Nausea R11.0 ; Other viral a gents as the cause of diseases classified elsewhere B97.89 and Acute upper respiratory infection, unspecified J06.9 [place] [address] [address] Aug, [place] [address] [address] Aug, [facility] [place] [address] [address] Jul, Sore throat J02.9 and BMI 40 .0-44.9, adult Z68.41 [place] [address] [address] Jun, Herniation through surgical site K43.2 ; Leg numbness R20.0 ; Acute pain of left knee M25.562 ; Fall, initial encounter W19.XXXA ; 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 ; Morbid obesity, unspecified obesity type E66.01 ; Other chronic pain G89.29 and Unspecified abdominal pain R10.9 [facility] [address] [facility] [id number] [address] [place] [id number] Jun, Muscle strain of left should er, initial encounter S46.912A [place] [address] [address] [place] [id number] [place] [address] May, [place] [address] [address] [place] [id number] [place] [phone] May, [facility] [place] [address] [address] [place] [id number] [place] [phone] May, Acute pain of right knee M25 .561 and Right knee sprain S83.91XA [place] [address] [id number] [place] [address] Apr, [place] [address] [place] [id number] [place] [phone] Apr, [place] [address] [place] [id number] [place] [address] Apr, 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 ; Morbid obesity, unspecified obesity type E66.01 ; Acute exacerbation of chronic obstructive pulmonary disease (COPD) J44.1 ; Pain in right knee M25.561 ; Screening for breast cancer Z12.31 and Generalized anxiety disorder F41.1 [place] [address] [place] [id number] [place] [phone] Mar, [facility] [address] [place] [id number] [place] [phone] Mar, Dysuria R30.0 and Acute cyst itis without hematuria N30.00 [facility] [address] [place] [id number] [place] [phone] Feb, [facility] [address] [address] Feb, Muscle cramps R25.2 and Seas onal allergic rhinitis, unspecified allergic rhinitis trigger J30.2 [place] [address] [address] January, [place] [address] [address] January, Generalized anxiety disorder F41.1 [facility] [place] [address] [address] January, Acute exacerbation of chroni c obstructive pulmonary disease (COPD) J44.1 [facility] [place] [address] [address] Dec, Cramps, muscle, general R25. 2 [place] [address] [address] Dec, [place] [address] [address] Nov, Type 2 diabetes mellitus wit h hyperglycemia E11.65 and 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 [place] [address] [address] Oct, Generalized anxiety disorder F41.1 [facility] [place] [address] [address] Oct, Vaginal candidiasis B37.3 [place] [address] [address] Oct, Right upper quadrant abdomin al pain R10.11 and S/P cholecystectomy Z90.49 [place] [address] [address] Sep, Sore throat J02.9 and Right lower quadrant pain R10.31 [place] [address] [address] Sep, Generalized anxiety disorder F41.1 [facility] [address] [facility] [id number] [address] [place] [phone] Sep, [facility] [address] [facility] [id number] [address] [place] [phone] Sep, [facility] [address] [place] [id number] [place] [phone] Sep, Chest pain, unspecified type R07.9 ; Left lower quadrant pain R10.32 and Other acute postprocedural pain G89.18 [place] [address] [address] [place] [id number] [place] [address] Sep, Fever in other diseases R50. 81 ; Acute non-recurrent maxillary sinusitis J01.00 and Cough R05 [place] [address] [address] Sep, [facility] [address] [address] Sep, Dysuria R30.0 ; Sore throat J02.9 ; Chest pain, unspecified type R07.9 and Female genital lesion N94.9 [place] [address] [address] Aug, Drug-induced constipation K5 9.03 ; Left arm pain M79.602 and S/P cholecystectomy Z90.49 [facility] IN [facility] [address] [place] [id number] [place] [phone] Aug, Sore throat J02.9 and Strep pharyngitis J02.0 [place] [address] [place] [id number] [place] [address] Aug, [facility] [address] [place] [id number] [place] [phone] Aug, [facility] [address] [address] Aug, [facility] [address] [address] Jul, [facility] [address] [address] Jul, Type 2 diabetes mellitus wit h hyperglycemia E11.65 ; 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.33 ; Morbid obesity, unspecified obesity type E66.01 and Right upper quadrant abdominal pain R10.11 [facility] [address] [address] 14 Jul, 2016 Dysuria R30.0 ; Shortness of breath R06.02 ; Cardiomegaly I51.7 and COPD exacerbation J44.1 [place] [address] [address] Jul, Bipolar disorder, unspecifie d F31.9 and Generalized anxiety disorder F41.1 [place] [address] [address] Jun, [place] [address] [address] Jun, Sleep apnea, unspecified sle ep apnea type G47.30 [place] [address] [address] Jun, Bipolar disorder, unspecifie d F31.9 and Generalized anxiety disorder F41.1 [place] [address] [address] May, Right lower quadrant abdomin al pain 789.03 ; Diabetes mellitus type 2, uncontrolled 250.02 ; Bipolar disorder 296.80 ; COPD (chronic obstructive pulmonary disease) 496 ; Bug bite without infection 919.4 and Left upper quadrant pain 789.02 [facility] [address] [address] 16 May, 2015 Right lower quadrant abdomin al pain 789.03 [place] [address] [address] May, [facility] [address] [facility] [id number] [address] [place] [phone] Apr, [facility] [address] [facility] [id number] [address] [place] [phone] Apr, Skin infection 686.9 [facility] [address] [facility] [id number] [address] [place] [address] Apr, Diabetes mellitus type 2, un controlled 250.02 ; Bipolar disorder 296.80 ; Hyperlipidemia 272.4 ; COPD (chronic obstructive pulmonary disease) 496 ; Sleep apnea in adult 327.23 and Routine adult health maintenance V70.0 [facility] [address] [facility] [id number] [address] [place] [address] Apr, Bipolar disorder 296.80 IMMUNIZATIONS No Known Immunizations SOCIAL HISTORY Never Assessed REASON FOR VISIT Medication question PLAN OF CARE VITAL SIGNS MEDICATIONS Unknown Medications RESULTS No Results PROCEDURES No Known procedures INSTRUCTIONS MEDICATIONS ADMINISTERED No Known Medications MEDICAL (GENERAL) HISTORY Type Description Date Medical History Type 2 Diabetes Medical History COPD Medical History Sleep Apnea Medical History Bipolar Disorder Medical History Chronic back pain Medical History Hypercholesterolemia Medical History peripheral neuropathy Surgical History Partial hysterectomy 1985 Surgical History Left knee surgery x 9. Scopes & repairs Surgical History Carpel tunnel surgery on left wrist/arm Surgical History Carpel tunnel repair on right wrist Surgical History Left knee scope 04/2016 Surgical History Left shoulder torn ligament repair Surgical History Cholecystectomy 09/19/2016 Surgical History Right knee Scope 2016 Surgical History Left knee meniscus repair 04/2018 Surgical History Lt knee replacement 07/2018 Surgical History spinal fusion 03/2019 Hospitalization History Urinary tract infection 2014 Hospitalization History past surgeries
--- OUTSIDE RECORDS SUMMARY | 2020-03-09 13:28 | XMS REPORT ---
Author Author Malina THOMPSON Organization [facility] Address [address] [place] [address] Care Team Providers Care Director International Name Role Phone NICKY THOMPSON Unavailable PROBLEMS Type Condition ICD9-CM Code [id number] Code Onset Dates Condition S tatus SNOMED Code Problem 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.33 Active 99027496 Problem Cardiomegaly I51.7 Active 2673039 Problem BMI 40.0-44.9, adult Z68.41 Active 879378349 Problem Chronic bronchitis, unspecified chronic bronchitis type J42 Active 39657554 Problem History of arthroplasty of left knee Z96.652 Active 397147531 Problem Diabetic peripheral neuropathy E11.42 Active 149889649 Problem Other chronic pain G89.29 Active 8 7579369 Problem Back pain with left-sided sciatica M54.32 Active 11236446 Problem Type 2 diabetes mellitus with hyperglycemia E11.65 Active [id number] Problem Constipation, unspecified constipation type K59.00 Active 30358623 Problem History of colon polyps Z86.010 Active 383983311 Problem Mild episode of recurrent major depressive disorder F33.0 Active 733460165 Problem Hyperlipidemia, unspecified hyperlipidemia type E7 8.5 Active 16546473 ALLERGIES No Information ENCOUNTERS Encounter Location Date Diagnosis [place] [address] [address] [facility] [id number] [address] [place] [id number] January, [place] [address] [facility] [id number] [address] [place] [phone] January, [place] [address] [facility] [id number] [address] [place] [address] 30 Dec, 2019 Diabetic peripheral neuropat hy E11.42 ; Type 2 diabetes mellitus with hyperglycemia E11.65 ; Cardiomegaly I51.7 ; Hyperlipidemia, unspecified hyperlipidemia type E78.5 ; Chronic bronchitis, unspecified chronic bronchitis type J42 ; BMI 40.0-44.9, adult Z68.41 and Back pain with left-sided sciatica M54.32 [facility] [address] [place] [id number] [place] [address] Dec, [facility] [address] [facility] [id number] [address] [place] [phone] Dec, [facility] [address] [address] Nov, [facility] [address] [place] [id number] [place] [phone] Nov, [place] [address] [address] Nov, Type 2 diabetes mellitus wit h hyperglycemia E11.65 ; Diabetic peripheral neuropathy E11.42 and Chronic bronchitis, unspecified chronic bronchitis type J42 [facility] [address] [address] Nov, Headache R51 and Gastroenter itis K52.9 [facility] [address] [place] [id number] [place] [phone] Oct, [facility] [address] [place] [id number] [place] [phone] Sep, Viral upper respiratory illn ess J06.9 [place] [address] [place] [id number] [place] [address] Sep, Nausea R11.0 and Periumbilic al abdominal pain R10.33 [facility] [address] [place] [id number] [place] [phone] Sep, [facility] [address] [place] [id number] [place] [phone] Jul, [place] [address] [place] [id number] [place] [phone] Jul, Encounter for Medicare annua wellness exam Z00.00 ; Type 2 diabetes mellitus with hyperglycemia E11.65 ; Hyperlipidemia, unspecified hyperlipidemia type E78.5 ; Chronic bronchitis, unspecified chronic bronchitis type J42 ; BMI 40.0-44.9, adult Z68.41 ; Mild episode of recurrent major depressive disorder F33.0 ; Screening for breast cancer Z12.39 ; Cardiomegaly I51.7 ; 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.33 and Other chronic pain G89.29 [place] [address] [address] 14 Apr, 2019 [place] [address] [address] 13 Apr, 2019 Postoperative seroma of subc utaneous tissue after non-dermatologic procedure L76.34 ; Low back pain M54.5 ; Other chronic pain G89.29 ; Type 2 diabetes mellitus with hyperglycemia E11.65 ; BMI 40.0-44.9, adult Z68.41 and Morbid obesity E66.01 [place] [address] [address] Apr, [facility] [place] [address] [address] Feb, Allergic dermatitis L23.9 an d Scabies exposure Z20.89 [place] [address] [address] Dec, [place] [address] [address] Dec, [facility] [place] [address] [address] Nov, Sore throat J02.9 and Chroni c bronchitis, unspecified chronic bronchitis type J42 [place] [address] [address] Nov, Type 2 diabetes mellitus wit h hyperglycemia E11.65 ; 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.33 ; BMI 40.0-44.9, adult Z68.41 ; Chronic bronchitis, unspecified chronic bronchitis type J42 ; Mild episode of recurrent major depressive disorder F33.0 and Hyperlipidemia, unspecified hyperlipidemia type E78.5 [place] [address] [facility] [id number] [address] [place] [phone] Nov, Acute nasopharyngitis J00 ; Acute nonintractable headache, unspecified headache type R51 ; Nausea R11.0 and Morbid obesity E66.01 [place] [address] [facility] [id number] [address] [place] [address] Oct, Constipation, unspecified co nstipation type K59.00 ; History of colon polyps Z86.010 ; Screening for colon cancer Z12.11 and BMI 40.0-44.9, adult Z68.41 [facility] [address] [address] Sep, Acute bronchitis J20.9 [facility] [address] [address] Sep, Strep throat J02.0 and Sore throat J02.9 [facility] [place] [id number] [place] [address] Jul, Sore throat J02.9 and Strep pharyngitis J02.0 [facility] [email or web address] [address] [place] [id number] Jul, Type 2 diabetes mellitus with hyperglyce gian E11.65 and Chronic bronchitis, unspecified chronic bronchitis type J42 [place] [id number] [place] [address] Jul, [place] [address] [place] [id number] [place] [address] Jul, Other chronic pain G89.29 [facility] [address] [place] [id number] Jun, History of arthroplasty of left knee Z96 .652 [facility] [address] [id number] [address] [place] [address] May, Right upper quadrant abdomin al pain R10.11 ; Abdominal pain R10.9 and BMI 40.0-44.9, adult Z68.[address] [address] Apr, Right lower quadrant abdomin al pain R10.31 ; 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.33 ; Type 2 diabetes mellitus with hyperglycemia E11.65 ; BMI 40.0-44.9, adult Z68.41 ; Head lice B85.0 and Yeast infection B37.[address] [address] Mar, Medicare annual wellness vis it, initial Z00.00 ; BMI 40.0-44.9, adult Z68.41 ; Type 2 diabetes mellitus with hyperglycemia E11.65 ; Cardiomegaly I51.7 ; 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.33 ; Chronic bronchitis, unspecified chronic bronchitis type J42 ; Other chronic pain G89.29 ; Dysuria R30.0 and Encounter for immunization Z23 [address] [address] Mar, [place] [address] [address] Dec, [address] [address] Dec, Type 2 diabetes mellitus wit h hyperglycemia E11.65 ; 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 ; BMI 40.0-44.9, adult Z68.41 ; Chronic bronchitis, unspecified chronic bronchitis type J42 ; Muscle cramp R25.2 and Incisional hernia, without obstruction or gangrene K43.2 [place] [address] [address] Nov, [facility] [address] [address] Nov, Abdominal pain, unspecified abdominal location R10.9 ; Constipation, unspecified constipation type K59.00 and BMI 40.0-44.9, adult Z68.41 [place] [id number] [place] [address] Nov, [place] [address] [address] Oct, [place] [address] [address] 08 Oct, 2017 [place] [address] [address] 05 Oct, 2017 Breast pain, left N64.4 and BMI 40.0-44.9, adult Z68.41 [facility] [place] [address] [address] Sep, BMI 40.0-44.9, adult Z68.41 and Multiple wounds of skin R23.8 [facility] [place] [address] [address] Sep, Body aches R52 ; Dysuria R30 .0 and Viral URI J06.9 [place] [address] [address] Aug, Nausea R11.0 ; Other viral a gents as the cause of diseases classified elsewhere B97.89 and Acute upper respiratory infection, unspecified J06.9 [place] [address] [address] Aug, [place] [address] [address] Aug, [facility] [place] [address] [address] Jul, Sore throat J02.9 and BMI 40 .0-44.9, adult Z68.41 [place] [address] [address] Jun, Herniation through surgical site K43.2 ; Leg numbness R20.0 ; Acute pain of left knee M25.562 ; Fall, initial encounter W19.XXXA ; 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 ; Morbid obesity, unspecified obesity type E66.01 ; Other chronic pain G89.29 and Unspecified abdominal pain R10.9 [facility] [address] [facility] [id number] [address] [place] [address] Jun, Muscle strain of left should er, initial encounter S46.912A [place] [address] [place] [id number] [place] [address] May, [place] [address] [place] [id number] [place] [address] May, [facility] [place] [address] [address] [place] [id number] [place] [address] May, Acute pain of right knee M25 .561 and Right knee sprain S83.91XA [place] [id number] [place] [address] Apr, [place] [address] [place] [id number] [place] [address] Apr, [place] [address] [place] [id number] [place] [address] Apr, 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 ; Morbid obesity, unspecified obesity type E66.01 ; Acute exacerbation of chronic obstructive pulmonary disease (COPD) J44.1 ; Pain in right knee M25.561 ; Screening for breast cancer Z12.31 and Generalized anxiety disorder F41.1 [place] [id number] [place] [id number] [place] [address] Mar, [facility] [address] [place] [id number] [place] [address] Mar, Dysuria R30.0 and Acute cyst itis without hematuria N30.00 [facility] [address] [place] [id number] [place] [address] Feb, [facility] [address] [address] Feb, Muscle cramps R25.2 and Seas onal allergic rhinitis, unspecified allergic rhinitis trigger J30.2 [place] [address] [address] January, [place] [address] [address] January, Generalized anxiety disorder F41.1 [facility] [place] [address] [address] January, Acute exacerbation of chroni c obstructive pulmonary disease (COPD) J44.1 [facility] [place] [address] [address] Dec, Cramps, muscle, general R25. 2 [place] [address] [address] Dec, [place] [address] [address] Nov, Type 2 diabetes mellitus wit h hyperglycemia E11.65 and 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 [place] [address] [address] Oct, Generalized anxiety disorder F41.1 [facility] [place] [address] [address] Oct, Vaginal candidiasis B37.3 [place] [address] [address] Oct, Right upper quadrant abdomin al pain R10.11 and S/P cholecystectomy Z90.49 [place] [address] [address] Sep, Sore throat J02.9 and Right lower quadrant pain R10.31 [place] [address] [address] Sep, Generalized anxiety disorder F41.1 [facility] [address] [facility] [id number] [address] [place] [address] Sep, [facility] [address] [facility] [id number] [address] [place] [address] Sep, [facility] [address] [place] [id number] [place] [address] Sep, Chest pain, unspecified type R07.9 ; Left lower quadrant pain R10.32 and Other acute postprocedural pain G89.18 [place] [address] [place] [id number] [place] [address] Sep, Fever in other diseases R50. 81 ; Acute non-recurrent maxillary sinusitis J01.00 and Cough R05 [place] [address] [address] Sep, [facility] [address] [address] Sep, Dysuria R30.0 ; Sore throat J02.9 ; Chest pain, unspecified type R07.9 and Female genital lesion N94.9 [place] [address] [address] Aug, Drug-induced constipation K5 9.03 ; Left arm pain M79.602 and S/P cholecystectomy Z90.49 [facility] [address] [place] [id number] [place] [address] Aug, Sore throat J02.9 and Strep pharyngitis J02.0 [place] [address] [place] [id number] [place] [address] Aug, [facility] [address] [place] [id number] [place] [address] Aug, [facility] [address] [address] Aug, [facility] [address] [address] Jul, [facility] [address] [address] Jul, Type 2 diabetes mellitus wit h hyperglycemia E11.65 ; 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.33 ; Morbid obesity, unspecified obesity type E66.01 and Right upper quadrant abdominal pain R10.11 [facility] [address] [address] 14 Jul, 2016 Dysuria R30.0 ; Shortness of breath R06.02 ; Cardiomegaly I51.7 and COPD exacerbation J44.1 [place] [address] [address] Jul, Bipolar disorder, unspecifie d F31.9 and Generalized anxiety disorder F41.1 [place] [address] [address] Jun, [place] [address] [address] Jun, Sleep apnea, unspecified sle ep apnea type G47.30 [place] [address] [address] Jun, Bipolar disorder, unspecifie d F31.9 and Generalized anxiety disorder F41.1 [place] [address] [address] May, Right lower quadrant abdomin al pain 789.03 ; Diabetes mellitus type 2, uncontrolled 250.02 ; Bipolar disorder 296.80 ; COPD (chronic obstructive pulmonary disease) 496 ; Bug bite without infection 919.4 and Left upper quadrant pain 789.02 [facility] [address] [address] 16 May, 2015 Right lower quadrant abdomin al pain 789.03 [place] [address] [address] May, [facility] [address] [facility] [id number] [address] [place] [address] Apr, [facility] [address] [facility] [id number] [address] [place] [address] Apr, Skin infection 686.9 [facility] [address] [facility] [id number] [address] [place] [address] Apr, Diabetes mellitus type 2, un controlled 250.02 ; Bipolar disorder 296.80 ; Hyperlipidemia 272.4 ; COPD (chronic obstructive pulmonary disease) 496 ; Sleep apnea in adult 327.23 and Routine adult health maintenance V70.0 [facility] [address] [facility] [id number] [address] [place] [phone] Apr, Bipolar disorder 296.80 IMMUNIZATIONS No Known Immunizations SOCIAL HISTORY Never Assessed REASON FOR VISIT ER visit PLAN OF CARE VITAL SIGNS MEDICATIONS Medication Instructions Dosage Frequency Start Date End Date Duration S marni Clindamycin HCl 300 MG Orally TID 1 capsules 8h Dec, 07 days Active RESULTS No Results PROCEDURES No Known procedures INSTRUCTIONS MEDICATIONS ADMINISTERED No Known Medications MEDICAL (GENERAL) HISTORY Type Description Date Medical History Type 2 Diabetes Medical History COPD Medical History Sleep Apnea Medical History Bipolar Disorder Medical History Chronic back pain Medical History Hypercholesterolemia Medical History peripheral neuropathy Surgical History Partial hysterectomy 1984 Surgical History [...]
--- OUTSIDE RECORDS SUMMARY | 2020-03-09 13:36 | XMS REPORT | Continuity of Care Document ---
Demographics Preferred Language Unknown Marital Status Unknown Congregation Affiliation Unknown Race Unknown Ethnic Group Unknown Author Organization Unknown Address Unknown Phone Unavailable Allergies Active Description Code Type Severity Reaction Onset Reported/Identified Relationship to Patient Clinical Status Yes IV DYE IV DYE Unknown N/A 04/09/2015 Yes No Known Drug Allergies [id number] Drug Allergy Unknown N/A 04/09/2015 Yes penicillin [id number] Drug Allerg y Unknown N/A 04/09/2015 Yes Iodinated Contrast Media - IV Dye [id number] Drug Allergy Unknown N/A 016 Yes Iodinated Contrast Media - Oral and [id number] Drug Allergy Unknown N/A 02/28/2017 Yes ZOFRAN ZOFRAN Unknown N/A 12/05/2017 Yes ondansetron [id number] Drug Aller gy Mild NAUSEA 04/30/2018 Yes nickel [id number] Drug Allergy Moderate RASH 01/06/2019 Yes doxycycline [id number] Drug Aller gy Mild HIVES 01/06/2019 Yes Iodinated Contrast Media [id number] Drug Allergy Unknown N/A 01/06/2019 Yes Iodinated Contrast- Oral and IV Dye [id number] Drug Allergy Unknown N/A 01/06/2019 Yes cobalt [id number] Drug Allergy Unknown Hives 06/24/2019 Yes hexachloride hexachloride Unknown Hives 06/24/2019 Yes penicillin [id number] Drug Allerg y Unknown HAS RECEIVED RO [...] Ot E78.0 PURE HYPERCHOLESTEROLEMIA 05/21/2015 LUNA LEGER MD, Ot J01.90 ACUTE SINUSITIS, UNSPECIFIED 05/21/2015 LUNA [...] DO, EDI A Ot Z12.31 08/07/2015 GELLENDER EDI LOU A Ot Z12.31 08/08/2015 GELLENDER EDI LOU A Ot Z12.31 08/12/2015 JANELLE ESPITIA APRN Ot J18 .9 PNEUMONIA, UNSPECIFIED ORGANISM 08/12/2015 JANELLE ESPITIA APRN Ot J44 .9 CHRONIC OBSTRUCTIVE PULMONARY DISEASE, U 08/12/2015 JANELLE ESPITIA APRN Ot Z79.899 OTHER SR. DIRECTOR (CURRENT) DRUG THERAPY 08/14/2015 GELLENDER DO EDI A Ot Z12.31 09/14/2015 JANELLE ESPITIA APRN Ot F17.211 NICOTINE DEPENDENCE, CIGARETTES, IN [place] 09/14/2015 JANELLE ESPITIA APRN Ot J40 BRONCHITIS, NOT SPECIFIED ACUTE OR CH 09/18/2015 GELLENDER DO EDI A Ot Z12.31 09/18/2015 NICOLASA CULLEN, KISHA Justice Ot M75.112 09/18/2015 GELLENDER EDI LOU Ot J18.9 09/18/2015 JANELLE ESPITIA PRODUCT SPECIALIST Ot F17.211 09/18/2015 JANELLE ESPITIA PRODUCT SPECIALIST Ot J40 09/19/2015 RAMIN LOU EDI Christianson Ot J18.9 09/20/2015 RAMIN LOU EDI Christianson Ot J18.9 09/24/2015 SIERRA GOMEZ MD Ot M79 .1 MYALGIA 09/24/2015 SIERRA GOMEZ MD Ot R05 COUGH 09/24/2015 SIERRA GOMEZ MD Ot R07.81 PLEURODYNIA 10/05/2015 JANELLE ESPITIA PRODUCT SPECIALIST Ot F17.211 10/05/2015 JANELLE ESPITIA PRODUCT SPECIALIST Ot J40 10/11/2015 JANELLE ESPITIA PRODUCT SPECIALIST Ot F17.211 10/11/2015 JANELLE ESPITIA PRODUCT SPECIALIST Ot J40 10/13/2015 ZURIBJPATELEDI Meghan Ot J40 10/14/2015 DAVID CULLEN, LAYTON Spencer Ot F17.211 NICOTINE DEPENDENCE, CIGARETTES, IN [place] 10/14/2015 LAYTON HERNANDEZ MD Ot J44.9 CHRONIC OBSTRUCTIVE PULMONARY DISEASE, U 10/14/2015 DAVID CULLEN, LAYTON Spencer Ot R07.89 OTHER CHEST PAIN 10/14/2015 DAVID CULLEN, LAYTON Spencer Ot R11.0 NAUSEA 10/16/2015 ZURIBJPATEL EDI Christianson Ot Z12.31 10/16/2015 KISHA BALDWIN MD Ot M75.112 10/16/2015 RAMIN LOU EDI Meghan Ot J18.9 10/16/2015 ZURILENDER EDI Christianson Ot J40 10/25/2015 GELLENPATELEDI Meghan Ot J40 10/25/2015 KISHA BALDWIN MD [...] G47.33 OBSTRUCTIVE SLEEP APNEA (ADULT) (PEDIATR 11/13/2015 RAMIN LOU, EDI Christianson Ot Z12.31 11/13/2015 NICOLASA CULLEN, KISHA Justice Ot M75.112 11/13/2015 EDI FAUSTIN DO Ot J18.9 11/13/2015 EDI FAUSTIN DO Ot J40 11/13/2015 NICOLASA CULLEN, KISHA Justice Ot M75.102 11/13/2015 NICOLASA CULLEN, KISHA Justice Ot Z01.818 11/13/2015 NICOLASA CULLEN, KISHA Justice Ot Z11.2 11/13/2015 EDI FAUSTIN DO Ot Z12.31 11/13/2015 NICOLASA CULLEN, KISHA Justice Ot M75.112 11/13/2015 EDI FAUSTIN DO Ot J18.9 11/13/2015 EDI FAUSTIN DO Ot J40 11/13/2015 NICOLASA CULLEN, KISHA Justice Ot M75.102 11/13/2015 NICOLASA CULLEN, KISHA Justice Ot Z01.818 11/13/2015 NICOLASA CULLEN, KISHA Justice Ot Z11.2 11/18/2015 RADHA CULLEN, CHELSI Christianson Ot J40 BRONCHITIS, NOT SPECIFIED ACUTE OR CH 12/11/2015 LORENA CULLEN, KISHA Justice Ot R13.19 12/11/2015 LORENA CULLEN, KISHA Justice Ot R49 .0 12/13/2015 LORENA CULLEN, KISHA P Ot R13.19 12/13/2015 LORENA CULLEN, KISHA P Ot R49 .0 12/15/2015 NICOLASA CULLEN, KISHA Justice Ot L72.9 FOLLICULAR CYST OF THE SKIN AND SUBCUTAN 12/15/2015 NICOLASA CULLEN, KISHA Justice Ot Z01.818 ENCOUNTER FOR OTHER PREPROCEDURAL EXAMIN 12/16/2015 RADHA CULLEN, CHELSI Christianson Ot J40 BRONCHITIS, NOT SPECIFIED ACUTE OR CH 12/16/2015 RADHA CULLEN, CHELSI Christianson Ot R09. 1 PLEURISY 12/18/2015 RADHA CULLEN, CHELSI Christianson Ot J40 12/18/2015 RADHA CULLEN, CHELSI Christianson Ot R09. 1 12/18/2015 RADHA CULLEN, CHELSI Christianson Ot J40 12/18/2015 RADHA CULLEN, CHELSI Christianson Ot R09. 1 12/19/2015 LORENA CULLEN, KISHA Justice Ot R13.10 12/19/2015 EDI FAUSTIN DO Ot Z12.31 12/19/2015 NICOLASA CULELN, KISHA Justice Ot M75.112 12/19/2015 EDI FAUSTIN DO Ot J18.9 12/19/2015 EDI FAUSTIN DO Ot J40 12/19/2015 NICOLASA CULLEN, KISHA P Ot M75.102 12/19/2015 NICOLASA CULLEN, KISHA P [...] DO Ot R07.81 12/21/2015 NICOLASA CULLEN, KISHA Justice Ot E11.9 12/21/2015 NICOLASA CULLEN, KISHA Justice Ot E78.0 12/21/2015 NICOLASA CULLEN, KISHA Justice Ot J32.9 12/21/2015 NICOLASA CULLEN, KISHA Justice Ot J44.9 12/21/2015 NICOLASA CULLEN, KISHA Justice Ot M67.441 12/21/2015 NICOLASA CULLEN, KISHA Justice Ot Z11.2 12/25/2015 EDI FAUSTIN DO Ot [...] KISHA Justice Ot R13.19 OTHER DYSPHAGIA 01/19/2016 KISHA CARRILLO MD Ot R49 .0 DYSPHONIA 01/19/2016 KISHA CARRILLO MD Ot R13.10 [...] 02/14/2016 KISHA BALDWIN MD Ot Z79.899 OTHER HALFWAY (CURRENT) DRUG THERAPY 02/14/2016 MAJOR GIPSON APRN Ot J30.9 ALLERGIC RHINITIS, UNSPECIFIED 02/14/2016 MAJOR GIPSON APRN Ot R06.02 SHORTNESS OF BREATH 02/15/2016 KISHA BALDWIN MD Ot 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 9 ALLERGIC RHINITIS, UNSPECIFIED 03/26/2016 [...] 9 ALLERGIC RHINITIS, UNSPECIFIED 05/02/2016 ZAHIRA PETERSEN DO Ot R06. 02 SHORTNESS OF BREATH 05/02/2016 KISHA BALDWIN MD [...] 05/08/2016 KISHA BALDWIN MD Ot Z79.899 OTHER SR. DIRECTOR (CURRENT) DRUG THERAPY 05/08/2016 KISHA BALDWIN MD [...] 05/09/2016 KISHA BALDWIN MD Ot Z79.899 OTHER HALFWAY (CURRENT) DRUG THERAPY 05/09/2016 KISHA BALDWIN MD [...] 05/10/2016 KISHA BALDWIN MD Ot Z79.899 OTHER SR. DIRECTOR (CURRENT) DRUG THERAPY 05/10/2016 KISHA BALDWIN MD [...] Ot R06. 02 SHORTNESS OF BREATH 05/15/2016 AFRICA CULLEN, LUNA [...] Ot R06. 02 SHORTNESS OF BREATH 05/16/2016 LUNA LEGER MD [...] CARRILLO MD Ot R49 .0 DYSPHONIA 05/24/2016 KISHA CARRILLO MD Ot R13.10 DYSPHAGIA, UNSPECIFIED 05/24/2016 GELLENDER DO, EDI A Ot R07.81 PLEURODYNIA 05/24/2016 MAJOR GIPSON APRN Ot J30.9 ALLERGIC RHINITIS, UNSPECIFIED 05/24/2016 MAJOR GIPSON APRN Ot R06.02 SHORTNESS OF BREATH 05/24/2016 TRINITY DO ZAHIRA M Ot E66. 01 MORBID (SEVERE) OBESITY DUE TO EXCESS CA 05/24/2016 TRINITY DO, ZAHIRA M Ot J30. 9 ALLERGIC RHINITIS, UNSPECIFIED 05/24/2016 TRINITY DO, ZAHIRA M Ot R06. 02 SHORTNESS OF BREATH 05/24/2016 TRINITY DO, ZAHIRA M Ot E66. 01 MORBID (SEVERE) OBESITY DUE TO EXCESS CA 05/24/2016 TRINITY DO, ZAHIRA M Ot J30. 9 ALLERGIC RHINITIS, UNSPECIFIED 05/24/2016 TRINITY DO, ZAHIRA M Ot R06. 02 SHORTNESS OF [...] 06/09/2016 LAYTON HERNANDEZ MD Ot Z79.899 OTHER HALFWAY (CURRENT) DRUG THERAPY 06/11/2016 LAYTON HERNANDEZ MD Ot E11.9 TYPE 2 DIABETES MELLITUS WITHOUT COMPLIC 06/11/2016 LAYTON HERNANDEZ MD Ot I10 ESSENTIAL (PRIMARY) HYPERTENSION 06/11/2016 LAYTON HERNANDEZ MD Ot N39.0 URINARY TRACT INFECTION, SITE NOT SPECIF 06/11/2016 LAYTON HERNANDEZ MD Ot R05 COUGH 06/11/2016 DAVID CULLEN, LAYTON Spencer Ot R42 DIZZINESS AND GIDDINESS 06/11/2016 DAVID CULLEN, LAYTON Spencer Ot Z79.899 OTHER SR. DIRECTOR (CURRENT) DRUG THERAPY 06/13/2016 EDI FAUSTIN DO [...] Ot R06. 02 SHORTNESS OF BREATH 06/13/2016 EDI FAUSTIN DO Ot N64.4 MASTODYNIA 06/18/2016 GELEDI GARZA DO Ot N64.4 MASTODYNIA 06/18/2016 JANELLE ESPITIA APRN Ot E11 .9 TYPE 2 DIABETES MELLITUS WITHOUT COMPLIC 06/18/2016 JANELLE ESPITIA PRODUCT SPECIALIST Ot I10 ESSENTIAL (PRIMARY) HYPERTENSION 06/18/2016 JANELLE ESPITIA PRODUCT SPECIALIST Ot J44 .9 CHRONIC OBSTRUCTIVE PULMONARY DISEASE, U 06/18/2016 JANELLE ESPITIA PRODUCT SPECIALIST Ot R10.31 RIGHT LOWER QUADRANT PAIN 06/18/2016 JANELLE ESPITIA PRODUCT SPECIALIST Ot R11 .0 NAUSEA 06/18/2016 JANELLE ESPITIA APRN Ot Z79.899 OTHER HALFWAY (CURRENT) DRUG THERAPY 06/19/2016 JANELEL ESPITIA APRN Ot E11 .9 TYPE 2 DIABETES MELLITUS WITHOUT COMPLIC 06/19/2016 JANELLE ESPITIA APRN Ot I10 ESSENTIAL (PRIMARY) HYPERTENSION 06/19/2016 JANELLE ESPITIA APRN Ot J44 .9 CHRONIC OBSTRUCTIVE PULMONARY DISEASE, U 06/19/2016 JANELLE ESPITIA APRN Ot R10.31 RIGHT LOWER QUADRANT PAIN 06/19/2016 JANELLE ESPITIA APRN Ot R11 .0 NAUSEA 06/19/2016 JANELLE ESPITIA APRN Ot Z79.899 OTHER SR. DIRECTOR (CURRENT) DRUG THERAPY 06/20/2016 JANELLE ESPITIA APRN Ot E11 .9 TYPE 2 DIABETES MELLITUS WITHOUT COMPLIC 06/20/2016 JANELLE ESPITIA PRODUCT SPECIALIST Ot I10 ESSENTIAL (PRIMARY) HYPERTENSION 06/20/2016 JANELLE ESPITIA APRN Ot J44 .9 CHRONIC OBSTRUCTIVE PULMONARY DISEASE, U 06/20/2016 JANELLE ESPITIA APRN Ot R10.31 RIGHT LOWER QUADRANT PAIN 06/20/2016 JANELLE ESPITIA APRN Ot R11 .0 NAUSEA 06/20/2016 JANELLE ESPITIA PRODUCT SPECIALIST Ot Z79.899 OTHER HALFWAY (CURRENT) DRUG THERAPY 06/23/2016 ZAHIRA PETERSEN DO [...] 07/02/2016 LUNA LEGER MD, Ot Z79.899 OTHER HALFWAY (CURRENT) DRUG THERAPY 07/03/2016 LUNA LEGER MD, Ot E11.9 TYPE 2 DIABETES MELLITUS WITHOUT COMPLIC 07/03/2016 LUNA LEGER MD Ot I10 ESSENTIAL (PRIMARY) HYPERTENSION 07/03/2016 LUNA LEGER MD, Ot J44.9 CHRONIC OBSTRUCTIVE PULMONARY DISEASE, U 07/03/2016 LUNA LEGER MD Ot R10.31 RIGHT LOWER QUADRANT PAIN 07/03/2016 LUNA LEGER MD Ot R11.10 VOMITING, UNSPECIFIED 07/03/2016 LUNA LEGER MD, Ot Z79.899 OTHER SR. DIRECTOR (CURRENT) DRUG THERAPY 07/12/2016 EDI FAUSTIN DO [...] PLEURISY 07/18/2016 JANELLE ESPITIA APRN Ot Z79.84 HALFWAY (CURRENT) USE OF ORAL HYPOGLYC 07/18/2016 JANELLE ESPITIA APRN Ot Z79.899 OTHER SR. DIRECTOR (CURRENT) DRUG THERAPY 07/19/2016 JANELLE ESPITIA APRN Ot E11 .9 TYPE 2 DIABETES MELLITUS WITHOUT COMPLIC 07/19/2016 JANELLE ESPITIA PRODUCT SPECIALIST Ot I10 ESSENTIAL (PRIMARY) HYPERTENSION 07/19/2016 JANELLE ESPITIA PRODUCT SPECIALIST Ot J44 .0 CHRONIC OBSTRUCTIVE PULMON DISEASE W ACU 07/19/2016 JANELLE ESPITIA PRODUCT SPECIALIST Ot R05 COUGH 07/19/2016 JANELLE ESPITIA APRN Ot R09 .1 PLEURISY 07/19/2016 JANELLE ESPITIA APRN Ot Z79.84 SR. DIRECTOR (CURRENT) USE OF ORAL HYPOGLYC 07/19/2016 JANELLE ESPITIA APRN Ot Z79.899 OTHER SR. DIRECTOR (CURRENT) DRUG THERAPY 07/23/2016 GELGREG DOEDI A Ot R10.12 LEFT UPPER QUADRANT PAIN 08/01/2016 EDI FAUSTIN DO A Ot R10.11 RIGHT UPPER QUADRANT PAIN 08/02/2016 ZAHIRA PETERSEN DO Ot E66. 01 MORBID (SEVERE) OBESITY DUE TO EXCESS CA 08/02/2016 ZAHIRA PETERSEN DO Ot J30. 9 ALLERGIC RHINITIS, UNSPECIFIED 08/02/2016 ZAHIRA PETERSEN DO Ot R06. 02 SHORTNESS OF BREATH 08/02/2016 ZAHIRA PETERSEN DO Ot R91. 1 SOLITARY PULMONARY NODULE 08/03/2016 CHRISTO VIDAL MD Ot E11. 9 TYPE 2 DIABETES MELLITUS WITHOUT COMPLIC 08/03/2016 CHRISTO VIDAL MD Ot F41. 9 ANXIETY DISORDER, UNSPECIFIED 08/03/2016 CHRISTO VIDAL MD Ot I10 ESSENTIAL (PRIMARY) HYPERTENSION 08/03/2016 CHRISTO VIDAL MD Ot J02. 9 ACUTE PHARYNGITIS, UNSPECIFIED 08/03/2016 CHRISTO VIDAL MD Ot J44. 9 CHRONIC OBSTRUCTIVE PULMONARY DISEASE, U 08/03/2016 CHRISTO VIDAL MD Ot Z79. 84 HALFWAY (CURRENT) USE OF ORAL HYPOGLYC 08/03/2016 CHRISTO VIDAL MD Ot Z79.899 OTHER HALFWAY (CURRENT) DRUG THERAPY 08/05/2016 EDI FAUSTIN DO A Ot R10.12 LEFT UPPER QUADRANT PAIN 08/05/2016 CHRISTO VIDAL MD Ot E11. 9 TYPE 2 DIABETES MELLITUS WITHOUT COMPLIC 08/05/2016 CHRISTO VIDAL MD Ot F41. 9 ANXIETY DISORDER, UNSPECIFIED 08/05/2016 YOUNG CULLEN, CHRISTO Huston Ot I10 ESSENTIAL (PRIMARY) HYPERTENSION 08/05/2016 YONUG CULLEN, CHRISTO Huston Ot J02. 9 ACUTE PHARYNGITIS, UNSPECIFIED 08/05/2016 YOUNG CULLEN, CHRISTO Huston Ot J44. 9 CHRONIC OBSTRUCTIVE PULMONARY DISEASE, U 08/05/2016 CHRISTO VIDAL MD Ot Z79. 84 HALFWAY (CURRENT) USE OF ORAL HYPOGLYC 08/05/2016 CHRISTO VIDAL MD Ot Z79.899 OTHER HALFWAY (CURRENT) DRUG THERAPY 08/09/2016 YOUNG CULLEN, CHRISTO Huston Ot E11. 9 TYPE 2 DIABETES MELLITUS WITHOUT COMPLIC 08/09/2016 CHRISTO VIDAL MD Ot F41. 9 ANXIETY DISORDER, UNSPECIFIED 08/09/2016 CHRISTO VIDAL MD Ot I10 ESSENTIAL (PRIMARY) HYPERTENSION 08/09/2016 CHRISTO VIDAL MD Ot J02. 9 ACUTE PHARYNGITIS, UNSPECIFIED 08/09/2016 CHRISTO VIDAL MD Ot J44. 9 CHRONIC OBSTRUCTIVE PULMONARY DISEASE, U 08/09/2016 YOUNG CULLEN, CHRISTO Huston Ot Z79. 84 HALFWAY (CURRENT) USE OF ORAL HYPOGLYC 08/09/2016 CHRISTO VIDAL MD Ot Z79.899 OTHER HALFWAY (CURRENT) DRUG THERAPY 08/14/2016 EDI FAUSTIN DO Ot R10.11 RIGHT UPPER QUADRANT PAIN 08/15/2016 JANELLE ESPITIA APRN Ot E11 .9 TYPE 2 DIABETES MELLITUS WITHOUT COMPLIC 08/15/2016 JANELLE ESPITIA APRN Ot F41 .9 ANXIETY DISORDER, UNSPECIFIED 08/15/2016 JANELLE ESPITIA PRODUCT SPECIALIST Ot I10 ESSENTIAL (PRIMARY) HYPERTENSION 08/15/2016 JANELLE ESPITIA APRN Ot J44 .9 CHRONIC OBSTRUCTIVE PULMONARY DISEASE, U 08/15/2016 JANELLE ESPITIA APRN Ot R07.89 OTHER CHEST PAIN 08/15/2016 JANELLE ESPITIA APRN Ot R07 .9 CHEST PAIN, UNSPECIFIED 08/15/2016 JANELLE ESPITIA APRN Ot Z79.84 SR. DIRECTOR (CURRENT) USE OF ORAL HYPOGLYC 08/15/2016 JANELLE ESPITIA APRN Ot Z79.899 OTHER SR. DIRECTOR (CURRENT) DRUG THERAPY 08/15/2016 JANELLE ESPITIA PRODUCT SPECIALIST Ot E11 .9 TYPE 2 DIABETES MELLITUS WITHOUT COMPLIC 08/15/2016 JANELLE ESPITIA PRODUCT SPECIALIST Ot F41 .9 ANXIETY DISORDER, UNSPECIFIED 08/15/2016 JANELLE ESPITIA PRODUCT SPECIALIST Ot I10 ESSENTIAL (PRIMARY) HYPERTENSION 08/15/2016 JANELLE ESPITIA PRODUCT SPECIALIST Ot J44 .9 CHRONIC OBSTRUCTIVE PULMONARY DISEASE, U 08/15/2016 JANELLE ESPITIA APRN Ot R07.89 OTHER CHEST PAIN 08/15/2016 JANELLE ESPITIA APRN Ot R07 .9 CHEST PAIN, UNSPECIFIED 08/15/2016 JANELLE ESPITIA APRN Ot Z79.84 SR. DIRECTOR (CURRENT) USE OF ORAL HYPOGLYC 08/15/2016 JANELLE ESPITIA PRODUCT SPECIALIST Ot Z79.899 OTHER SR. DIRECTOR (CURRENT) DRUG THERAPY 08/21/2016 ZAHIRA PETERSEN DO [...] .5 LOW BACK PAIN 08/24/2016 JANELLE ESPITIA APRN Ot Z79.84 SR. DIRECTOR (CURRENT) USE OF ORAL HYPOGLYC 08/24/2016 JANELLE ESPITIA PRODUCT SPECIALIST Ot Z79.899 OTHER SR. DIRECTOR (CURRENT) DRUG THERAPY 08/26/2016 JANELLE ESPITIA PRODUCT SPECIALIST Ot E11 .9 TYPE 2 DIABETES MELLITUS WITHOUT COMPLIC 08/26/2016 JANELLE ESPITIA PRODUCT SPECIALIST Ot J44 .9 CHRONIC OBSTRUCTIVE PULMONARY DISEASE, U 08/26/2016 JANELLE ESPITIA PRODUCT SPECIALIST Ot M54 .5 LOW BACK PAIN 08/26/2016 JANELLE ESPITIA PRODUCT SPECIALIST Ot Z79.84 SR. DIRECTOR (CURRENT) USE OF ORAL HYPOGLYC 08/26/2016 JANELLE ESPITIA PRODUCT SPECIALIST Ot Z79.899 OTHER HALFWAY (CURRENT) DRUG THERAPY 09/04/2016 ZAHIRA PETRESEN DO Ot E66. 01 MORBID (SEVERE) OBESITY DUE TO EXCESS CA 09/04/2016 ZAHIRA PETERSEN DO Ot J30. 9 ALLERGIC RHINITIS, UNSPECIFIED 09/04/2016 [...] SOLITARY PULMONARY NODULE 09/13/2016 RAMIN LOU EDI Christianson Ot N64.4 MASTODYNIA 09/13/2016 ZAHIRA PETERSEN DO Ot E66. 01 MORBID (SEVERE) OBESITY DUE TO EXCESS CA 09/13/2016 ZAHIRA PETERSEN DO Ot J30. 9 ALLERGIC RHINITIS, UNSPECIFIED 09/13/2016 ZAHIRA PETERSEN DO Ot R06. 02 SHORTNESS OF BREATH 09/13/2016 RAMIN LOUEDI Ot R10.12 LEFT UPPER QUADRANT PAIN 09/13/2016 RAMIN LOUEDI Ot R10.11 RIGHT UPPER QUADRANT PAIN 09/13/2016 NICKY THOMPSON MD Ot E11.6 5 TYPE 2 DIABETES MELLITUS WITH HYPERGLYCE 09/13/2016 NICKY THOMPSON MD Ot R10.1 1 RIGHT UPPER QUADRANT PAIN 09/13/2016 LAYTON HERNANDEZ MD Ot E11.9 TYPE 2 DIABETES MELLITUS WITHOUT COMPLIC 09/13/2016 DAVID CULLEN, LAYTON Spencer Ot I10 ESSENTIAL (PRIMARY) HYPERTENSION 09/13/2016 LAYTON HERNANDEZ MD Ot J02.0 STREPTOCOCCAL PHARYNGITIS 09/13/2016 LAYTON HERNANDEZ MD Ot J02.9 ACUTE PHARYNGITIS, UNSPECIFIED 09/13/2016 LAYTON HERNANDEZ MD Ot J44.9 CHRONIC OBSTRUCTIVE PULMONARY DISEASE, U 09/13/2016 LAYTON HERNANDEZ MD Ot K59.00 CONSTIPATION, UNSPECIFIED 09/13/2016 LAYTON HERNANDEZ MD Ot K82.9 DISEASE OF GALLBLADDER, UNSPECIFIED 09/13/2016 LAYTON HERNANDEZ MD Ot R11.2 NAUSEA WITH VOMITING, UNSPECIFIED 09/13/2016 DAVID CULLEN, LAYTON Spencer Ot Z79.899 OTHER SR. 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 1 CHRONIC CHOLECYSTITIS 09/26/2016 NICKY [...] Ot R06. 02 SHORTNESS OF BREATH 10/16/2016 RAMIN LOU EDI Meghan Ot R10.12 LEFT UPPER QUADRANT PAIN 10/16/2016 RAMIN LOU EDI Meghan Ot R10.11 RIGHT UPPER QUADRANT PAIN 10/16/2016 [...] PAIN 10/16/2016 LUNA LEGER MD Ot Z79.84 SR. DIRECTOR (CURRENT) USE OF ORAL HYPOGLYC 10/16/2016 LUNA LEGER MD Ot Z79.899 OTHER SR. DIRECTOR (CURRENT) DRUG THERAPY 10/16/2016 LUNA LEGER MD Ot Z90.49 ACQUIRED ABSENCE OF OTHER SPECIFIED PART 11/03/2016 CHRISTO VIDAL MD Ot J02. 0 STREPTOCOCCAL PHARYNGITIS 11/03/2016 CHRISTO VIDAL MD Ot N39. 0 URINARY TRACT INFECTION, SITE NOT SPECIF 11/03/2016 CHRISTO VIDAL MD Ot R05 COUGH 11/03/2016 CHRISTO VIDAL MD Ot R07. 89 OTHER CHEST PAIN 11/03/2016 CHRISTO VIDAL MD Ot Z79. 84 SR. DIRECTOR (CURRENT) USE OF ORAL HYPOGLYC 11/03/2016 YOUNG CULLEN CHRISTO Huston Ot Z87.891 PERSONAL HISTORY OF NICOTINE DEPENDENCE 11/05/2016 YOUNG CULLEN CHRISTO Huston Ot J02. 0 STREPTOCOCCAL PHARYNGITIS 11/05/2016 YOUNG CULLEN CHRISTO Huston Ot N39. 0 URINARY TRACT INFECTION, SITE NOT SPECIF 11/05/2016 CHRISTO VIDAL MD Ot R05 COUGH 11/05/2016 YOUNG CULLEN CHRISTO Robel Ot R07. 89 OTHER CHEST PAIN 11/05/2016 YOUNG CULLEN CHRISTO Huston Ot Z79. 84 HALFWAY (CURRENT) USE OF ORAL HYPOGLYC 11/05/2016 YOUNG [...] DISEASE, U 11/22/2016 RAQUEL ROLDAN Ot Z79.4 SR. DIRECTOR (CURRENT) USE OF INSULIN 11/22/2016 RAQUEL ROLDAN Ot Z79.899 OTHER SR. DIRECTOR (CURRENT) DRUG THERAPY 11/25/2016 RAQUEL ROLDAN Ot 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 11/25/2016 RAQUEL ROLDAN Ot E11.9 TYPE 2 DIABETES MELLITUS WITHOUT COMPLIC 11/25/2016 RAQUEL ROLDAN Ot J44.9 CHRONIC OBSTRUCTIVE PULMONARY DISEASE, U 11/25/2016 RAQUEL ROLDAN Ot Z79.4 HALFWAY (CURRENT) USE OF INSULIN 11/25/2016 RAQUEL ROLDAN Ot Z79.899 OTHER SR. DIRECTOR (CURRENT) DRUG THERAPY 11/26/2016 PATRIC MONTERO MD Ot R10.31 RIGHT LOWER QUADRANT PAIN 11/28/2016 CECELIA CULLEN, Nia WILSON Ot E11 .9 TYPE 2 DIABETES MELLITUS WITHOUT COMPLIC 11/28/2016 CECELIA CULLEN, Nia WILSON Ot E78 .5 HYPERLIPIDEMIA, UNSPECIFIED 11/28/2016 CECELIA CULLEN, Nia WILSON Ot J44 .9 CHRONIC OBSTRUCTIVE PULMONARY DISEASE, U 11/28/2016 Nia RAI MD Ot R07 .9 CHEST PAIN, UNSPECIFIED 11/28/2016 CECELIA CULLEN, Nia WILSON Ot E11 .9 TYPE 2 DIABETES MELLITUS WITHOUT COMPLIC 11/28/2016 Nia RAI MD Ot E78 .5 HYPERLIPIDEMIA, UNSPECIFIED 11/28/2016 Nia RAI MD Ot J44 .9 CHRONIC OBSTRUCTIVE PULMONARY DISEASE, U 11/28/2016 Nia RAI MD Ot R07 .9 CHEST PAIN, UNSPECIFIED 12/01/2016 Nia RAI MD Ot E11 .9 TYPE 2 DIABETES MELLITUS WITHOUT COMPLIC 12/01/2016 Nia RAI MD Ot E78 .5 HYPERLIPIDEMIA, UNSPECIFIED 12/01/2016 Nia RAI MD Ot J44 .9 CHRONIC OBSTRUCTIVE PULMONARY DISEASE, U 12/01/2016 Nia RAI MD Ot R07 .9 CHEST PAIN, UNSPECIFIED 12/06/2016 KYLAH CULLEN, PATRIC Saucedo Ot R10.31 RIGHT LOWER QUADRANT PAIN 12/19/2016 Nia RAI MD Ot E11 .9 [...] .9 CHRONIC OBSTRUCTIVE PULMONARY DISEASE, U 12/19/2016 iNa RAI MD Ot R07 .9 CHEST PAIN, UNSPECIFIED 12/27/2016 EDI FAUSTIN DO Ot N64.4 MASTODYNIA 12/27/2016 CECELIA CULLEN, Nia WILSON Ot E11 .9 [...] MD Ot E78 .5 HYPERLIPIDEMIA, UNSPECIFIED 01/01/2017 CECELIA CULLEN, Nia WILSON Ot J44 .9 [...] 02/09/2017 LAUREL SHEN MD Ot Z79. 82 SR. DIRECTOR (CURRENT) USE OF ASPIRIN 02/11/2017 LAUREL SHEN MD Ot E11. 9 TYPE 2 DIABETES MELLITUS WITHOUT COMPLIC 02/11/2017 LAUREL SHEN MD Ot J44. 9 CHRONIC [...] CAUSE STATUS 02/11/2017 LAUREL SHEN MD Ot Z79. 82 SR. DIRECTOR (CURRENT) USE OF ASPIRIN 02/27/2017 EDI FAUSTIN [...] Ot R06.02 SHORTNESS OF BREATH 02/27/2017 TRINITY LOU ZAHIRA Kramer Ot E66. 01 MORBID (SEVERE) OBESITY DUE TO EXCESS CA 02/27/2017 TRINITY DOZAHIRA Ot J30. 9 ALLERGIC RHINITIS, UNSPECIFIED 02/27/2017 TRINITY DO ZAHIRA M Ot R06. 02 SHORTNESS OF BREATH 02/27/2017 TRINITY DO ZAHIRA Kramer Ot E66. 01 MORBID (SEVERE) OBESITY DUE TO EXCESS CA 02/27/2017 TRINITY DO ZAHIRA Kramer Ot J30. 9 ALLERGIC RHINITIS, UNSPECIFIED 02/27/2017 TRINITY DO ZAHIRA Kramer Ot R06. 02 SHORTNESS OF BREATH 02/27/2017 TRINITY DO ZAHIRA Nia Ot R91. 1 SOLITARY PULMONARY NODULE 02/27/2017 EDI FAUSTIN DO Ot N64.4 MASTODYNIA 02/27/2017 TRINITY LOU ZAHIRA Kramer Ot E66. 01 MORBID (SEVERE) OBESITY DUE TO EXCESS CA 02/27/2017 TRINITY DO ZAHIRA Kramer Ot J30. 9 ALLERGIC RHINITIS, UNSPECIFIED 02/27/2017 TRINITY LOU ZAHIRA Kramer Ot R06. 02 SHORTNESS OF BREATH 02/27/2017 EDI FAUSTIN DO Ot R10.12 LEFT UPPER QUADRANT PAIN 02/27/2017 EDI FAUSTIN DO Ot R10.11 RIGHT UPPER QUADRANT PAIN 02/27/2017 DONNA CULLEN, NICKY Lawrence Ot E11.6 5 TYPE 2 DIABETES MELLITUS WITH HYPERGLYCE 02/27/2017 DONNA CULLEN, NICKY Lawrence Ot R10.1 1 [...] WILSON Ot E78 .5 HYPERLIPIDEMIA, UNSPECIFIED 02/27/2017 Nia RAI MD Ot J44 .9 CHRONIC OBSTRUCTIVE PULMONARY DISEASE, U 02/27/2017 Nia RAI MD Ot R07 .9 CHEST PAIN, UNSPECIFIED 02/28/2017 EDI FAUSTIN DO Ot Z12.31 ENCNTR SCREEN MAMMOGRAM FOR MALIGNANT NE 02/28/2017 KISHA BALDWIN MD Ot M75.112 INCOMPLETE ROTATR-CUFF TEAR/RUPTR OF L S 02/28/2017 EDI FAUSTIN DO Ot J18.9 PNEUMONIA, UNSPECIFIED ORGANISM 02/28/2017 EDI FAUSTIN DO, Ot J40 BRONCHITIS, NOT [...] Ot R91. 1 SOLITARY PULMONARY NODULE 02/28/2017 ZURILENDER , EDI A Ot N64.4 MASTODYNIA 02/28/2017 ZAHIRA PETERSEN DO Ot E66. 01 MORBID (SEVERE) OBESITY DUE TO EXCESS CA 02/28/2017 ZAHIRA PETERSEN DO Ot J30. 9 ALLERGIC RHINITIS, UNSPECIFIED 02/28/2017 ZAHIRA PETERSEN DO Ot R06. 02 SHORTNESS OF BREATH 02/28/2017 GELEDI GARZA DO A Ot R10.12 LEFT UPPER QUADRANT PAIN 02/28/2017 GELBJDER EDI LOU A Ot R10.11 RIGHT UPPER QUADRANT PAIN [...] 03/04/2017 LAUREL SHEN MD, Ot Z79. 82 HALFWAY (CURRENT) USE OF ASPIRIN 03/05/2017 KISHA BALDWIN [...] 03/05/2017 KISHA BALDWIN MD, Ot Z79.899 OTHER SR. DIRECTOR (CURRENT) DRUG THERAPY 03/05/2017 KISHA BALDWIN MD, [...] PERSONAL HISTORY OF NICOTINE DEPENDENCE 03/06/2017 LAUREL SHNE MD Ot E11. 9 TYPE 2 DIABETES [...] OTHER EXTERNAL CAUSE STATUS 03/06/2017 LAUREL SHEN MD, Ot Z79. 82 SR. DIRECTOR (CURRENT) USE OF ASPIRIN 03/06/2017 KISHA BALDWIN MD, Ot E11.9 TYPE 2 DIABETES MELLITUS WITHOUT COMPLIC 03/06/2017 KISHA BALDWIN MD, Ot E66.01 MORBID (SEVERE) OBESITY DUE TO EXCESS CA 03/06/2017 KISHA BALDWIN MD, Ot E78.00 PURE HYPERCHOLESTEROLEMIA, UNSPECIFIED 03/06/2017 KISHA BALDWIN MD Ot F31.9 BIPOLAR DISORDER, UNSPECIFIED 03/06/2017 KISHA [...] 03/06/2017 KISHA BALDWIN MD, Ot Z79.899 OTHER SR. DIRECTOR (CURRENT) DRUG THERAPY 03/06/2017 KISHA BALDWIN MD, Ot Z87.891 PERSONAL HISTORY OF NICOTINE DEPENDENCE 03/16/2017 RAQUEL ROLDAN Ot 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 03/16/2017 RAQUEL ROLDAN Ot E11.9 TYPE 2 DIABETES MELLITUS WITHOUT COMPLIC 03/16/2017 RAQUEL ROLDAN Ot J44.9 CHRONIC OBSTRUCTIVE PULMONARY DISEASE, U 03/16/2017 RAQUEL ROLDAN Ot Z79.4 HALFWAY (CURRENT) USE OF INSULIN 03/16/2017 RAQUEL ROLDAN Ot Z79.899 OTHER HALFWAY (CURRENT) DRUG THERAPY 04/08/2017 KISHA BALDWIN MD, Ot E11.9 TYPE 2 DIABETES MELLITUS WITHOUT COMPLIC 04/08/2017 KISHA BALDWIN MD Ot E66.01 MORBID (SEVERE) [...] 04/08/2017 KISHA BALDWIN MD, Ot Z79.899 OTHER SR. DIRECTOR (CURRENT) DRUG THERAPY 04/08/2017 KISHA BALDWIN MD, Ot Z87.891 PERSONAL HISTORY OF NICOTINE DEPENDENCE 04/29/2017 EDI AFUSTIN DO Ot Z12.31 ENCNTR SCREEN MAMMOGRAM FOR [...] Ot R91. 1 SOLITARY PULMONARY NODULE 04/29/2017 RAMIN DO EDI A Ot N64.4 MASTODYNIA 04/29/2017 TRINITY LOU ZAHIRA Kramer Ot E66. 01 MORBID (SEVERE) OBESITY DUE TO EXCESS CA 04/29/2017 ZAHIRA PETERSEN DO Ot J30. 9 ALLERGIC RHINITIS, UNSPECIFIED 04/29/2017 TRINITY LOU ZAHIRA Kramer Ot R06. 02 SHORTNESS OF BREATH 04/29/2017 ZURIGREG DO, EDI A Ot R10.12 LEFT UPPER QUADRANT PAIN 04/29/2017 GELBJDER , EDI A Ot R10.11 RIGHT UPPER [...] WITHOUT COMPLIC 04/29/2017 Nia RAI MD Ot E78 .5 HYPERLIPIDEMIA, UNSPECIFIED 04/29/2017 Nia RAI MD Ot J44 .9 CHRONIC OBSTRUCTIVE PULMONARY DISEASE, U 04/29/2017 Nia RAI MD Ot R07 .9 CHEST PAIN, UNSPECIFIED 04/29/2017 Nia RAI MD Ot E11 .9 TYPE 2 DIABETES MELLITUS WITHOUT COMPLIC 04/29/2017 Nia RAI MD Ot E78 .5 HYPERLIPIDEMIA, UNSPECIFIED 04/29/2017 Nia RAI MD, Ot J44 .9 CHRONIC OBSTRUCTIVE PULMONARY DISEASE, U 04/29/2017 CECELIA CULLEN, Nia WILSON Ot R07 .9 CHEST PAIN, UNSPECIFIED 04/29/2017 KISHA BALDWIN MD, Ot E11.9 TYPE 2 DIABETES MELLITUS WITHOUT COMPLIC 04/29/2017 KISHA BALDWIN MD Ot E66.01 MORBID (SEVERE) OBESITY DUE TO EXCESS CA 04/29/2017 KISHA BALDWIN MD Ot E78.00 PURE HYPERCHOLESTEROLEMIA, UNSPECIFIED 04/29/2017 KISHA BALDWIN MD, Ot F31.9 BIPOLAR DISORDER, UNSPECIFIED 04/29/2017 KISHA BALDWIN MD, Ot F32.9 MAJOR DEPRESSIVE DISORDER, SINGLE EPISOD 04/29/2017 KISHA BALDWIN MD, Ot G47.33 OBSTRUCTIVE SLEEP [...] 04/29/2017 KISHA BALDWIN MD, Ot Z79.899 OTHER SR. DIRECTOR (CURRENT) DRUG THERAPY 04/29/2017 KISHA BALDWIN MD, Ot Z87.891 PERSONAL HISTORY OF NICOTINE DEPENDENCE 04/30/2017 MAJOR GIPSON APRN Ot R06.02 SHORTNESS OF BREATH 04/30/2017 DAVID CULLEN, LAYTON Spencer Ot E11.9 TYPE 2 DIABETES MELLITUS WITHOUT COMPLIC 04/30/2017 LAYTON HERNANDEZ MD Ot E78.00 PURE HYPERCHOLESTEROLEMIA, UNSPECIFIED 04/30/2017 LAYTON [...] HEADACHE 04/30/2017 LAYTON HERNANDEZ MD Ot Z79.84 SR. DIRECTOR (CURRENT) USE OF ORAL HYPOGLYC 04/30/2017 LAYTON [...] E78.00 PURE HYPERCHOLESTEROLEMIA, UNSPECIFIED 05/02/2017 LAYTON HERNANDEZ MD Ot F31.9 BIPOLAR DISORDER, UNSPECIFIED 05/02/2017 LAYTON HERNANDEZ MD, Ot F41.9 ANXIETY DISORDER, UNSPECIFIED 05/02/2017 LAYTON HERNANDEZ MD Ot G25.81 RESTLESS LEGS SYNDROME 05/02/2017 LAYTON HERNANDEZ MD Ot G47.30 SLEEP APNEA, UNSPECIFIED 05/02/2017 LAYTON HERNANDEZ MD Ot J44.9 CHRONIC OBSTRUCTIVE PULMONARY DISEASE, U 05/02/2017 LAYTON HERNANDEZ MD, Ot K21.9 GASTRO-ESOPHAGEAL REFLUX DISEASE WITHOUT 05/02/2017 LAYTON HERNANDEZ MD Ot M19.90 UNSPECIFIED OSTEOARTHRITIS, UNSPECIFIED 05/02/2017 LAYTON HERNANDEZ MD Ot M54.6 PAIN IN THORACIC SPINE 05/02/2017 LAYTON HERNANDEZ MD Ot M79.1 MYALGIA 05/02/2017 LAYTON HERNANDEZ MD Ot R07.81 PLEURODYNIA 05/02/2017 LAYTON HERNANDEZ MD Ot R11.0 NAUSEA 05/02/2017 LAYTON HERNADNEZ MD, Ot R51 HEADACHE 05/02/2017 LAYTON HERNANDEZ MD, Ot Z79.84 SR. DIRECTOR (CURRENT) USE OF ORAL HYPOGLYC 05/02/2017 LAYTON [...] HERNANDEZ MD Ot M79.1 MYALGIA 05/02/2017 LAYTON HERNADNEZ MD Ot R07.81 PLEURODYNIA 05/02/2017 LAYTON HERNANDEZ MD Ot R11.0 NAUSEA 05/02/2017 LAYTON HERNANDEZ MD Ot R51 HEADACHE 05/02/2017 LAYTON HERNANDEZ MD Ot Z79.84 SR. DIRECTOR (CURRENT) USE OF ORAL HYPOGLYC 05/02/2017 LAYTON [...] OTH PLACE IN [facility] ([facility]) 05/07/2017 JANELLE ESPITIA APRN Ot Z79.84 SR. DIRECTOR (CURRENT) USE OF ORAL HYPOGLYC 05/07/2017 JANELLE [...] OTH PLACE IN [facility] ([facility]) 05/09/2017 JANELLE ESPITIA APRN Ot Z79.84 SR. DIRECTOR (CURRENT) USE OF ORAL HYPOGLYC 05/09/2017 JANELLE [...] R06.02 SHORTNESS OF BREATH 05/28/2017 MAJOR GIPSON PRODUCT SPECIALIST Ot M79.604 PAIN IN RIGHT LEG 05/28/2017 MAJOR GIPSON PRODUCT SPECIALIST Ot M79.605 PAIN IN LEFT LEG 05/28/2017 MAJOR GIPSON PRODUCT SPECIALIST Ot R06.00 DYSPNEA, UNSPECIFIED 05/28/2017 MAJOR GIPSON PRODUCT SPECIALIST Ot R22.43 LOCALIZED SWELLING, MASS AND LUMP, LOWER 06/05/2017 MAJOR GIPSON APRN Ot R06.02 SHORTNESS OF BREATH 06/06/2017 MAJOR GIPSON APRN Ot M79.604 PAIN IN RIGHT LEG 06/06/2017 MAJOR GIPSON PRODUCT SPECIALIST Ot M79.605 PAIN IN LEFT LEG 06/06/2017 MAJOR GIPSON PRODUCT SPECIALIST Ot R06.00 DYSPNEA, UNSPECIFIED 06/06/2017 MAJOR GIPSON PRODUCT SPECIALIST Ot R22.43 LOCALIZED SWELLING, MASS AND LUMP, LOWER 06/20/2017 DONNA CULLEN, NICKY Lawrence Ot Z12.3 1 ENCNTR SCREEN MAMMOGRAM FOR MALIGNANT NE 06/27/2017 NICKY THOMPSON MD Ot Z12.3 1 ENCNTR [...] DISEASE, U 08/10/2017 JANELLE ESPITIA APRN Ot K21 .9 GASTRO-ESOPHAGEAL REFLUX DISEASE WITHOUT 08/10/2017 ESPITIA, PETER J PRODUCT SPECIALIST Ot R07 .9 CHEST PAIN, UNSPECIFIED 08/10/2017 JANELLE ESPITIA PRODUCT SPECIALIST Ot R53.81 OTHER MALAISE 08/10/2017 JANELLE ESPITIA PRODUCT SPECIALIST Ot Z79.84 SR. DIRECTOR (CURRENT) USE OF ORAL HYPOGLYC 08/10/2017 JANELLE ESPITIA PRODUCT SPECIALIST Ot Z87.19 PERSONAL HISTORY OF OTHER DISEASES OF TH 08/10/2017 JANELLE ESPITIA PRODUCT SPECIALIST Ot Z87.448 PERSONAL HISTORY OF OTHER DISEASES OF UR 08/10/2017 JANELLE ESPITIA PRODUCT SPECIALIST Ot Z87.891 PERSONAL HISTORY OF NICOTINE DEPENDENCE 08/10/2017 JANELLE ESPITIA PRODUCT SPECIALIST Ot 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 09/13/2017 REBEKA, OLIVA PROGRAMMER ANALYST Ot E11.9 TYPE 2 DIABETES MELLITUS WITHOUT COMPLIC 09/13/2017 REBEKA, OLIVA PROGRAMMER ANALYST Ot E78.00 PURE HYPERCHOLESTEROLEMIA, UNSPECIFIED 09/13/2017 REBEKA, OLIVA PROGRAMMER ANALYST Ot F31.9 BIPOLAR DISORDER, UNSPECIFIED 09/13/2017 REBEKA, OLIVA PROGRAMMER ANALYST Ot F41.9 ANXIETY DISORDER, UNSPECIFIED 09/13/2017 REBEKA, OLIVA PROGRAMMER ANALYST Ot G47.30 SLEEP APNEA, UNSPECIFIED 09/13/2017 REBEKA, OLIVA PROGRAMMER ANALYST Ot J02.9 ACUTE PHARYNGITIS, UNSPECIFIED 09/13/2017 ERBEKA, OLIVA PROGRAMMER ANALYST Ot J06.9 ACUTE UPPER RESPIRATORY INFECTION, UNSPE 09/13/2017 REBEKA, OLIVA PROGRAMMER ANALYST Ot J44.9 CHRONIC OBSTRUCTIVE PULMONARY DISEASE, U 09/13/2017 REBEKA OLIVA PROGRAMMER ANALYST Ot K21.9 GASTRO-ESOPHAGEAL REFLUX DISEASE WITHOUT 09/13/2017 REBEKA, OLIVA PROGRAMMER ANALYST Ot Z87.891 PERSONAL HISTORY OF NICOTINE DEPENDENCE 09/13/2017 REBEKA OLIVA PROGRAMMER ANALYST Ot 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 09/15/2017 REBEKA, OLIVA PROGRAMMER ANALYST Ot E11.9 TYPE 2 DIABETES MELLITUS WITHOUT COMPLIC 09/15/2017 REBEKA, OLIVA PROGRAMMER ANALYST Ot E78.00 PURE HYPERCHOLESTEROLEMIA, UNSPECIFIED 09/15/2017 REBEKA, OLIVA PROGRAMMER ANALYST Ot F31.9 BIPOLAR DISORDER, UNSPECIFIED 09/15/2017 REBEKA, OLIVA PROGRAMMER ANALYST Ot F41.9 ANXIETY DISORDER, UNSPECIFIED 09/15/2017 REBEKA, OLIVA PROGRAMMER ANALYST Ot G47.30 SLEEP APNEA, UNSPECIFIED 09/15/2017 OLIVA STALEY Ot J02.9 ACUTE PHARYNGITIS, UNSPECIFIED 09/15/2017 OLIVA STALEY Ot J06.9 ACUTE UPPER RESPIRATORY INFECTION, UNSPE 09/15/2017 OLIVA STALEY Ot J44.9 CHRONIC OBSTRUCTIVE PULMONARY DISEASE, U 09/15/2017 OLIVA STALEY Ot K21.9 GASTRO-ESOPHAGEAL REFLUX DISEASE WITHOUT 09/15/2017 OLIVA STALEY Ot Z87.891 PERSONAL HISTORY OF NICOTINE DEPENDENCE 09/15/2017 OLIVA STALEY Ot 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 11/11/2017 DONNA CULLEN, NICKY Lawrence Ot N64.4 MASTODYNIA 11/12/2017 DONNA CULLEN, NICKY Lawrence Ot N63.2 3 UNSPECIFIED LUMP IN THE LEFT BREAST, LOW 11/20/2017 KISHA BALDWIN MD Ot M94.261 CHONDROMALACIA, RIGHT KNEE 11/20/2017 KISHA BALDWIN MD Ot Z01.818 ENCOUNTER FOR OTHER PREPROCEDURAL EXAMIN 11/20/2017 EDI FAUSTIN DO Ot Z12.31 ENCNTR SCREEN MAMMOGRAM FOR MALIGNANT NE 11/20/2017 KISHA BALDWIN MD Ot M75.112 INCOMPLETE ROTATR-CUFF TEAR/RUPTR OF L S 11/20/2017 EDI FAUSTIN DO, Ot J18.9 PNEUMONIA, UNSPECIFIED ORGANISM 11/20/2017 EDI [...] EDI FAUSTIN DO Ot R07.81 PLEURODYNIA 11/20/2017 LEONELA, MAJOR E PRODUCT SPECIALIST Ot J30.9 ALLERGIC RHINITIS, UNSPECIFIED 11/20/2017 MAJOR GIPSON APRN Ot R06.02 SHORTNESS OF BREATH 11/20/2017 TRINITY LOU ZAHIRA Kramer Ot E66. 01 MORBID (SEVERE) OBESITY DUE TO EXCESS CA 11/20/2017 TRINITY DOZAHIRA Ot J30. 9 ALLERGIC RHINITIS, UNSPECIFIED 11/20/2017 TRINITY DO ZAHIRA Kramer Ot R06. 02 SHORTNESS OF BREATH 11/20/2017 TRINITY LOU ZAHIRA Kramer Ot E66. 01 MORBID (SEVERE) OBESITY DUE TO EXCESS CA 11/20/2017 TRINITY DO, ZAHIRA Kramer Ot J30. 9 ALLERGIC RHINITIS, UNSPECIFIED 11/20/2017 TRINITY LOU ZAHIRA Kramer Ot R06. 02 SHORTNESS OF BREATH 11/20/2017 TRINITY LOU ZAHIRA Kramer Ot R91. 1 SOLITARY PULMONARY NODULE 11/20/2017 ZURILENDER DO, EDI Christianson Ot N64.4 MASTODYNIA 11/20/2017 TRINITY LOU ZAHIRA Kramer Ot E66. 01 MORBID (SEVERE) OBESITY DUE TO EXCESS CA 11/20/2017 TRINITY LOU ZAHIRA Kramer Ot J30. 9 ALLERGIC RHINITIS, UNSPECIFIED 11/20/2017 TRINITY LOU ZAHIRA Kramer Ot R06. 02 SHORTNESS OF BREATH 11/20/2017 ZURIBJDER DO, EDI A Ot R10.12 LEFT [...] Ot R07 .9 CHEST PAIN, UNSPECIFIED 11/20/2017 Nia RAI MD, Ot E11 .9 TYPE 2 DIABETES MELLITUS WITHOUT COMPLIC 11/20/2017 Nia RAI MD, Ot E78 .5 HYPERLIPIDEMIA, UNSPECIFIED 11/20/2017 Nia RAI MD, Ot J44 .9 CHRONIC OBSTRUCTIVE PULMONARY DISEASE, U 11/20/2017 Nia RAI MD, Ot R07 .9 CHEST PAIN, UNSPECIFIED 11/20/2017 MAJOR GIPSON APRN Ot R06.02 SHORTNESS OF BREATH 11/20/2017 MAJOR GIPSON APRN Ot M79.604 PAIN IN RIGHT LEG 11/20/2017 MAJOR GIPSON APRN Ot M79.605 PAIN IN LEFT LEG 11/20/2017 MAJOR GIPSON APRN Ot R06.00 DYSPNEA, UNSPECIFIED 11/20/2017 MAJOR GIPSON APRN Ot R22.43 LOCALIZED SWELLING, MASS AND LUMP, LOWER 11/20/2017 NICKY THOMPSON MD Ot Z12.3 1 ENCNTR [...] Ot I1 0 ESSENTIAL (PRIMARY) HYPERTENSION 11/26/2017 KISHA BALDWIN MD, [...] ADULT 11/26/2017 KISHA BALDWIN MD, Ot Z79.84 SR. DIRECTOR (CURRENT) USE OF ORAL HYPOGLYC 11/26/2017 KISHA BALDWIN MD, Ot Z79.899 OTHER HALFWAY (CURRENT) DRUG THERAPY 11/26/2017 KISHA BALDWIN MD, [...] Ot G3 5 MULTIPLE SCLEROSIS 11/27/2017 KISHA BALDWIN MD, Ot G47.33 OBSTRUCTIVE SLEEP APNEA (ADULT) (PEDIATR 11/27/2017 KISHA BALDWIN MD, Ot I1 0 ESSENTIAL (PRIMARY) HYPERTENSION 11/27/2017 KISHA BALDWIN MD, Ot I20.9 ANGINA PECTORIS, UNSPECIFIED 11/27/2017 KISHA BALDWIN MD, Ot J44.9 CHRONIC OBSTRUCTIVE PULMONARY DISEASE, U 11/27/2017 KISHA BALDWIN MD, Ot K21.9 GASTRO-ESOPHAGEAL REFLUX DISEASE WITHOUT 11/27/2017 KISHA BALDWIN MD, Ot M22.41 CHONDROMALACIA PATELLAE, RIGHT KNEE 11/27/2017 ZAFUTA MD, KISHA P Ot M32.9 SYSTEMIC LUPUS ERYTHEMATOSUS, UNSPECIFIE 11/27/2017 KISHA BALDWIN MD, Ot M79.7 FIBROMYALGIA 11/27/2017 KISHA BALDWIN MD, Ot Z11.2 ENCOUNTER FOR SCREENING FOR OTHER BACTER 11/27/2017 KISHA BALDWIN MD, Ot Z68.41 BODY MASS INDEX (BMI) 40.0-44.9, ADULT 11/27/2017 KISHA BALDWIN MD, Ot Z79.84 SR. DIRECTOR (CURRENT) USE OF ORAL HYPOGLYC 11/27/2017 KISHA BALDWIN MD, Ot Z79.899 OTHER HALFWAY (CURRENT) DRUG THERAPY 11/27/2017 KISHA BALDWIN MD, [...] APNEA, UNSPECIFIED 12/05/2017 JANELLE ESPITIA APRN Ot J44 .9 CHRONIC OBSTRUCTIVE PULMONARY DISEASE, U 12/05/2017 JANELLE ESPITIA APRN Ot K21 .9 GASTRO-ESOPHAGEAL REFLUX DISEASE WITHOUT 12/05/2017 JANELLE ESPITIA APRN Ot N39 .0 URINARY TRACT INFECTION, SITE NOT SPECIF 12/05/2017 JANELLE ESPITIA APRN Ot R05 COUGH 12/05/2017 JANELLE ESPITIA APRN Ot R07.81 PLEURODYNIA 12/05/2017 JANELLE ESPITIA APRN Ot Z79.84 SR. DIRECTOR (CURRENT) USE OF ORAL HYPOGLYC 12/05/2017 JANELLE [...] PLEURODYNIA 12/08/2017 JANELLE ESPITIA APRN Ot Z79.84 SR. DIRECTOR (CURRENT) USE OF ORAL HYPOGLYC 12/08/2017 JANELLE [...] PLEURODYNIA 12/11/2017 JANELLE ESPITIA APRN Ot Z79.84 HALFWAY (CURRENT) USE OF ORAL HYPOGLYC 12/11/2017 JANELLE ESPITIA APRN Ot Z87.19 PERSONAL HISTORY OF OTHER DISEASES OF TH 12/11/2017 JANLELE ESPITIA APRN Ot Z87.891 PERSONAL HISTORY OF NICOTINE DEPENDENCE 12/11/2017 JANELLE ESPITIA APRN Ot Z88 .0 ALLERGY STATUS TO PENICILLIN 12/11/2017 JANELLE ESPITIA APRN Ot Z88 .8 ALLERGY STATUS TO OTH DRUG/MEDS/BIOL SUB 12/11/2017 JANELLE ESPITIA APRN Ot Z90.710 ACQUIRED ABSENCE OF BOTH CERVIX AND UTER 12/11/2017 JANELLE ESPITIA APRN Ot Z91.041 RADIOGRAPHIC DYE ALLERGY STATUS 12/11/2017 DONNA CULLEN, NICKY R Ot N63.2 3 UNSPECIFIED LUMP IN THE LEFT BREAST, LOW 04/01/2018 JOHANNY DO, MURALI K Ot E11.9 TYPE 2 DIABETES MELLITUS WITHOUT COMPLIC 04/01/2018 JOHANNY DO MURALI K Ot E66.9 OBESITY, UNSPECIFIED 04/01/2018 JOHANNY DO MURALI K Ot E78.00 PURE HYPERCHOLESTEROLEMIA, UNSPECIFIED 04/01/2018 JOHANNY DO MURALI K Ot F31.9 BIPOLAR DISORDER, UNSPECIFIED 04/01/2018 JOHANNY DO MURALI K Ot F41.9 ANXIETY DISORDER, UNSPECIFIED 04/01/2018 JOHANNY DO MURALI K Ot G25.81 RESTLESS LEGS SYNDROME 04/01/2018 JOHANNY DO MURALI K Ot G47.30 SLEEP APNEA, UNSPECIFIED 04/01/2018 JOHANNY DO MURALI K Ot J44.9 CHRONIC OBSTRUCTIVE PULMONARY DISEASE, U 04/01/2018 JOHANNY EDU LOUA K Ot K21.9 GASTRO-ESOPHAGEAL REFLUX DISEASE WITHOUT 04/01/2018 EDU ORLANDO DOA K Ot N39.0 URINARY TRACT INFECTION, SITE NOT SPECIF 04/01/2018 EDU [place]LAND[place] DOA K Ot R10.31 RIGHT LOWER QUADRANT PAIN 04/01/2018 JOHANNY LOU MURALI K Ot Z79.51 HALFWAY (CURRENT) USE OF INHALED STERO 04/01/2018 EDU [place]LAND[place] DOA K Ot Z87.891 PERSONAL HISTORY OF NICOTINE DEPENDENCE 04/01/2018 EDU ORLAND[place] DOA K Ot Z88.0 ALLERGY STATUS TO PENICILLIN 04/01/2018 EDU ORLAND[place] DOA K Ot Z88.6 ALLERGY STATUS TO ANALGESIC AGENT STATUS 04/01/2018 JOHANNY EDU LOUA K Ot Z90.710 ACQUIRED ABSENCE OF BOTH CERVIX AND UTER 04/01/2018 JOHANNY EDU LOUA K Ot Z91.041 RADIOGRAPHIC DYE ALLERGY STATUS 04/02/2018 EDU ORLANDO DOA K Ot E11.9 TYPE 2 DIABETES MELLITUS WITHOUT COMPLIC 04/02/2018 OJHANNY DOEDUA K Ot E66.9 OBESITY, UNSPECIFIED 04/02/2018 JOHANNY DO MURALI K Ot E78.00 PURE HYPERCHOLESTEROLEMIA, UNSPECIFIED 04/02/2018 JOHANNY DO MURALI K Ot F31.9 BIPOLAR DISORDER, UNSPECIFIED 04/02/2018 JOHANNY DO MURALI K Ot F41.9 ANXIETY DISORDER, UNSPECIFIED 04/02/2018 JOHANNY LOU MURALI Brady Ot G25.81 RESTLESS LEGS SYNDROME 04/02/2018 JOHANNY LOU MURALI Brady Ot G47.30 SLEEP APNEA, UNSPECIFIED 04/02/2018 JOHANNY LOU MURALI Brady Ot J44.9 CHRONIC OBSTRUCTIVE PULMONARY DISEASE, U 04/02/2018 MURALI [place]LAND[place] DO Ot K21.9 GASTRO-ESOPHAGEAL REFLUX DISEASE WITHOUT 04/02/2018 JOHANNY LOU MURALI Jose Antonio Ot N39.0 URINARY TRACT INFECTION, SITE NOT SPECIF 04/02/2018 JOHANNY LOU MURALI Jose Antonio Ot R10.31 RIGHT LOWER QUADRANT PAIN 04/02/2018 JOHANNY LOU MURALI Jose Antonio Ot Z79.51 HALFWAY (CURRENT) USE OF INHALED STERO 04/02/2018 JOHANNY LOU MURALI Jose Antonio Ot Z87.891 PERSONAL HISTORY OF NICOTINE DEPENDENCE 04/02/2018 JOHANNY LOU MURALI Jose Antonio Ot Z88.0 ALLERGY STATUS TO PENICILLIN 04/02/2018 JOHANNY LOU MURALI K Ot Z88.6 ALLERGY STATUS TO ANALGESIC AGENT STATUS 04/02/2018 JOHANNY LOU MURALI Jose Antonio Ot Z90.710 ACQUIRED ABSENCE OF BOTH CERVIX AND UTER 04/02/2018 JOHANNY LOU MURALI Jose Antonio Ot Z91.041 RADIOGRAPHIC DYE ALLERGY STATUS 04/13/2018 ZAHIRA PETERSNE DO Ot E66. 01 MORBID (SEVERE) OBESITY [...] PAIN 04/16/2018 CECELIA CULLEN, Nia WILSON Ot E11 .9 TYPE 2 DIABETES MELLITUS WITHOUT COMPLIC 04/16/2018 CECELIA CULLEN, Nia WILSON Ot E78 .5 HYPERLIPIDEMIA, UNSPECIFIED 04/16/2018 CECELIA CULLEN, Nia WILSON Ot J44 .9 CHRONIC OBSTRUCTIVE PULMONARY DISEASE, U 04/16/2018 CECELIA CULLEN, Nia WILSON Ot R07 .9 CHEST PAIN, UNSPECIFIED 04/16/2018 CECELIA CULLEN, Nia WILSON Ot E11 .9 TYPE 2 DIABETES MELLITUS WITHOUT COMPLIC 04/16/2018 CECELIA CULLEN, Nia WILSON Ot E78 .5 HYPERLIPIDEMIA, UNSPECIFIED 04/16/2018 CECELIA CULLEN, Nia WILSON Ot J44 .9 CHRONIC OBSTRUCTIVE PULMONARY DISEASE, U 04/16/2018 CECELIA CULLEN, Nia WILSON Ot R07 .9 CHEST PAIN, UNSPECIFIED 04/16/2018 MAJOR GIPSON APRN [...] Ot R06. 02 SHORTNESS OF BREATH 04/20/2018 EDI FAUSTIN DO Ot R10.12 LEFT UPPER QUADRANT PAIN 04/20/2018 RAMIN LOU, EDI Christianson Ot R10.11 RIGHT UPPER QUADRANT PAIN 04/20/2018 [...] .9 CHEST PAIN, UNSPECIFIED 04/20/2018 MAJOR GIPSON PRODUCT SPECIALIST Ot R06.02 SHORTNESS OF BREATH 04/20/2018 MAJOR GIPSON PRODUCT SPECIALIST Ot M79.604 PAIN IN RIGHT LEG 04/20/2018 MAJOR GIPSON PRODUCT SPECIALIST Ot M79.605 PAIN IN LEFT LEG 04/20/2018 MAJOR GIPSON PRODUCT SPECIALIST Ot R06.00 DYSPNEA, UNSPECIFIED 04/20/2018 MAJOR GIPSON PRODUCT SPECIALIST Ot R22.43 LOCALIZED SWELLING, MASS AND LUMP, LOWER 04/20/2018 NICKY THOMPSON MD Ot Z12.3 1 ENCNTR SCREEN MAMMOGRAM FOR MALIGNANT NE 04/20/2018 NICKY THOMPSON MD Ot N63.2 3 UNSPECIFIED LUMP IN THE LEFT BREAST, LOW 04/20/2018 SAIRA CULLEN, VICTORIA Kramer Ot E11.9 TYPE 2 DIABETES MELLITUS WITHOUT COMPLIC 04/20/2018 SAIRA CULLEN, VICTORIA M Ot E78.00 PURE HYPERCHOLESTEROLEMIA, UNSPECIFIED 04/20/2018 SAIRA CULLEN, VICTORIA Kramer Ot F31.9 BIPOLAR DISORDER, UNSPECIFIED 04/20/2018 SAIRA CULLEN, VICTORIA Kramer Ot F41.9 ANXIETY DISORDER, UNSPECIFIED 04/20/2018 SAIRA CULLEN, VICTORIA Kramer Ot G25.81 RESTLESS LEGS SYNDROME 04/20/2018 VICTORIA CHÁVEZ MD Ot K21.9 GASTRO-ESOPHAGEAL REFLUX DISEASE WITHOUT 04/20/2018 SAIRA CULLEN, VICTORIA Kramer Ot K57.30 DVRTCLOS OF LG INT W/O PERFORATION OR AB 04/20/2018 VICTORIA CHÁVEZ MD Ot K59.09 OTHER CONSTIPATION 04/20/2018 VICTORIA CHÁVEZ MD Ot M79.1 MYALGIA 04/20/2018 VICTORIA CHÁVEZ MD Ot R93.3 ABNORMAL FINDINGS ON DX IMAGING OF PRT D 04/20/2018 VICTORIA CHÁVEZ MD Ot Z79.82 HALFWAY (CURRENT) USE OF ASPIRIN 04/20/2018 VICTORIA CHÁVEZ MD Ot Z79.84 SR. DIRECTOR (CURRENT) USE OF ORAL HYPOGLYC 04/20/2018 VICTORIA CHÁVEZ MD Ot Z79.899 OTHER HALFWAY (CURRENT) DRUG THERAPY 04/20/2018 SAIRA CULLEN, VICTORIA Kramer Ot Z87.891 PERSONAL HISTORY OF NICOTINE DEPENDENCE 04/21/2018 SAIRA CULLEN, VICTORIA Kramer Ot E11.9 TYPE 2 DIABETES MELLITUS WITHOUT COMPLIC 04/21/2018 SAIRA CULLEN, VICTORIA Kramer Ot E78.00 PURE HYPERCHOLESTEROLEMIA, UNSPECIFIED 04/21/2018 SAIRA CULLEN, VICTORIA Kramer Ot F31.9 BIPOLAR DISORDER, UNSPECIFIED 04/21/2018 SAIRA CULLEN, VICTORIA Kramer Ot F41.9 ANXIETY DISORDER, UNSPECIFIED 04/21/2018 SAIRA CULLEN, VICTORIA Kramer Ot G25.81 RESTLESS LEGS SYNDROME 04/21/2018 VICTORIA CHÁVEZ MD Ot K21.9 GASTRO-ESOPHAGEAL REFLUX DISEASE WITHOUT 04/21/2018 VICTORIA CHÁVEZ MD Ot K57.30 DVRTCLOS OF LG INT W/O PERFORATION OR AB 04/21/2018 VICTORIA CHÁVEZ MD Ot K59.09 OTHER CONSTIPATION 04/21/2018 VICTORIA CHÁVEZ MD Ot M79.1 MYALGIA 04/21/2018 VICTORIA CHÁVEZ MD, Ot R93.3 ABNORMAL FINDINGS ON DX IMAGING OF PRT D 04/21/2018 VICTORIA CHÁVEZ MD, Ot Z79.82 SR. DIRECTOR (CURRENT) USE OF ASPIRIN 04/21/2018 VICTORIA CHÁVEZ MD, Ot Z79.84 HALFWAY (CURRENT) USE OF ORAL HYPOGLYC 04/21/2018 VICTORIA CHÁVEZ MD, Ot Z79.899 OTHER SR. DIRECTOR (CURRENT) DRUG THERAPY 04/21/2018 VICTORIA CHÁVEZ MD, Ot Z87.891 PERSONAL HISTORY OF NICOTINE DEPENDENCE 04/26/2018 VICTORIA CHÁVEZ MD Ot E11.9 TYPE 2 DIABETES MELLITUS WITHOUT COMPLIC 04/26/2018 VICTORIA CHÁVEZ MD Ot E78.00 PURE HYPERCHOLESTEROLEMIA, UNSPECIFIED 04/26/2018 VICTORIA CHÁVEZ MD, Ot F31.9 BIPOLAR DISORDER, UNSPECIFIED 04/26/2018 VICTORIA CHÁVEZ MD, Ot F41.9 ANXIETY DISORDER, UNSPECIFIED 04/26/2018 VICTORIA CHÁVEZ MD, Ot G25.81 RESTLESS LEGS SYNDROME 04/26/2018 VICOTRIA CHÁVEZ MD, Ot K21.9 GASTRO-ESOPHAGEAL REFLUX DISEASE WITHOUT 04/26/2018 VICTORIA CHÁVEZ MD, Ot K57.30 DVRTCLOS OF LG INT W/O PERFORATION OR AB 04/26/2018 VICTORIA CHÁVEZ MD Ot K59.09 OTHER CONSTIPATION 04/26/2018 VICTORIA CHÁVEZ MD, Ot M79.1 MYALGIA 04/26/2018 VICTORIA CHÁVEZ MD Ot R93.3 ABNORMAL FINDINGS ON DX IMAGING OF PRT D 04/26/2018 VICTORIA CHÁVEZ MD, Ot Z79.82 SR. DIRECTOR (CURRENT) USE OF ASPIRIN 04/26/2018 VICTORIA CHÁVEZ MD, Ot Z79.84 HALFWAY (CURRENT) USE OF ORAL HYPOGLYC 04/26/2018 VICTORIA CHÁVEZ MD, Ot Z79.899 OTHER HALFWAY (CURRENT) DRUG THERAPY 04/26/2018 VICTORIA CHÁVEZ MD, Ot Z87.891 PERSONAL HISTORY OF NICOTINE DEPENDENCE 04/30/2018 Ot M23.8X2 OT HER INTERNAL DERANGEMENTS OF LEFT KNEE 04/30/2018 Ot Z01.818 EN COUNTER FOR OTHER PREPROCEDURAL EXAMIN 05/06/2018 ZAFUKISHA LIN MD, Ot E11.42 TYPE 2 DIABETES MELLITUS WITH DIABETIC P 05/06/2018 KISHA BALDWIN MD, Ot E66.01 MORBID (SEVERE) OBESITY DUE TO EXCESS CA 05/06/2018 KISHA BALDWIN MD, Ot G47.33 OBSTRUCTIVE SLEEP APNEA (ADULT) (PEDIATR 05/06/2018 KISHA BALDWIN MD, Ot I20.9 ANGINA PECTORIS, UNSPECIFIED 05/06/2018 KISHA BALDWIN MD, Ot J44.9 CHRONIC OBSTRUCTIVE PULMONARY DISEASE, U 05/06/2018 KISHA BALDWIN MD, Ot J45.909 UNSPECIFIED ASTHMA, UNCOMPLICATED 05/06/2018 KISHA BALDWIN MD, Ot K21.9 GASTRO-ESOPHAGEAL REFLUX DISEASE WITHOUT 05/06/2018 KISHA BALDWIN MD, Ot M22.42 CHONDROMALACIA PATELLAE, LEFT KNEE 05/06/2018 KISHA BALDWIN MD, Ot Z68.41 BODY MASS INDEX (BMI) 40.0-44.9, ADULT 05/06/2018 KISHA BALDWIN MD, Ot Z79.82 SR. DIRECTOR (CURRENT) USE OF ASPIRIN 05/06/2018 KISHA BALDWIN MD, Ot Z79.84 HALFWAY (CURRENT) USE OF ORAL HYPOGLYC 05/06/2018 KISHA BALDWIN MD, Ot Z87.891 PERSONAL HISTORY OF NICOTINE DEPENDENCE 07/09/2018 EDI FAUSTIN DO Ot Z12.31 ENCNTR SCREEN MAMMOGRAM FOR MALIGNANT NE 07/09/2018 KISHA BALDWIN MD Ot M75.112 INCOMPLETE ROTATR-CUFF TEAR/RUPTR OF L S 07/09/2018 EDI FAUSTIN DO, Ot J18.9 PNEUMONIA, UNSPECIFIED ORGANISM 07/09/2018 EDI FAUSTIN DO, Ot J40 BRONCHITIS, NOT SPECIFIED ACUTE OR CH 07/09/2018 KISHA BALDWIN MD, Ot M75.102 UNSP ROTATR-CUFF TEAR/RUPTR OF LEFT SHOU 07/09/2018 KISHA BALDWIN MD, Ot Z01.818 ENCOUNTER FOR OTHER PREPROCEDURAL EXAMIN 07/09/2018 KISHA BALDWIN MD Ot Z11.2 ENCOUNTER FOR SCREENING FOR OTHER BACTER 07/09/2018 KISHA CARRILLO MD Ot R13.19 OTHER DYSPHAGIA 07/09/2018 KISHA CARRILLO MD Ot R49 .0 DYSPHONIA 07/09/2018 LORENA CULLEN, KISHA Justice Ot R13.10 DYSPHAGIA, UNSPECIFIED 07/09/2018 GELLENDER DO, EDI Meghan Ot R07.81 PLEURODYNIA 07/09/2018 MAJOR GIPSON APRN Ot J30.9 ALLERGIC RHINITIS, UNSPECIFIED 07/09/2018 MAJOR GIPSON APRN Ot R06.02 SHORTNESS OF BREATH 07/09/2018 TRINITY DO ZAHIRA Kramer Ot E66. 01 MORBID (SEVERE) OBESITY DUE TO EXCESS CA 07/09/2018 TRINITY DO, ZAHIRA M Ot J30. 9 ALLERGIC RHINITIS, UNSPECIFIED 07/09/2018 TRINITY DO, ZAHIRA Kramer Ot R06. 02 SHORTNESS OF BREATH 07/09/2018 TRINITY DO, ZAHIAR Kramer Ot E66. 01 MORBID (SEVERE) OBESITY DUE TO EXCESS CA 07/09/2018 TRINITY DO, ZAHIRA M Ot J30. 9 ALLERGIC RHINITIS, UNSPECIFIED 07/09/2018 TRINITY DO ZAHIRA Kramer Ot R06. 02 SHORTNESS OF BREATH 07/09/2018 TRINITY DO ZAHIRA Kramer Ot R91. 1 SOLITARY PULMONARY NODULE 07/09/2018 JCARLOSDER DO, EDI Meghan Ot N64.4 MASTODYNIA 07/09/2018 TRINITY DO, ZAHIRA Kramer Ot E66. 01 MORBID (SEVERE) OBESITY DUE TO EXCESS CA 07/09/2018 TRINIYT DO, ZAHIRA Kramer Ot J30. 9 ALLERGIC RHINITIS, UNSPECIFIED 07/09/2018 TRINITY DO, ZAHIRA Kramer Ot R06. 02 SHORTNESS OF BREATH 07/09/2018 JCARLOSDER DO, EDI A Ot R10.12 LEFT UPPER QUADRANT PAIN 07/09/2018 GELLENDER DO, EDI A Ot R10.11 RIGHT UPPER QUADRANT PAIN 07/09/2018 DONNA CULLEN, NICKY Lawrence Ot E11.6 5 TYPE 2 DIABETES MELLITUS WITH HYPERGLYCE 07/09/2018 NICKY THOMPSON MD Ot R10.1 1 RIGHT UPPER QUADRANT PAIN 07/09/2018 KYLAH CULLEN, PATRIC Saucedo Ot R10.31 RIGHT LOWER QUADRANT PAIN 07/09/2018 CECELIA CULLEN, Nia WILSON Ot E11 .9 TYPE 2 DIABETES MELLITUS WITHOUT COMPLIC 07/09/2018 CECELIA CULLEN, Nia WILSON Ot E78 .5 HYPERLIPIDEMIA, UNSPECIFIED 07/09/2018 Nia RAI MD, Ot J44 .9 CHRONIC OBSTRUCTIVE PULMONARY DISEASE, U 07/09/2018 CECELIA CULLEN, Nia WILSON Ot R07 .9 CHEST PAIN, UNSPECIFIED 07/09/2018 Nia RAI MD Ot E11 .9 TYPE 2 DIABETES MELLITUS WITHOUT COMPLIC 07/09/2018 Nia RAI MD Ot E78 .5 HYPERLIPIDEMIA, UNSPECIFIED 07/09/2018 Nia RAI MD, Ot J44 .9 CHRONIC OBSTRUCTIVE PULMONARY DISEASE, U 07/09/2018 Nia RAI MD Ot R07 .9 CHEST PAIN, UNSPECIFIED 07/09/2018 [...] Ot R53.83 OTHER FATIGUE 07/09/2018 KISHA BALDWIN MD, Ot R82.90 UNSPECIFIED ABNORMAL FINDINGS IN URINE 07/09/2018 KISHA BALDWIN MD Ot Z01.812 ENCOUNTER FOR [...] FOR SCREENING FOR OTHER BACTER 07/15/2018 KISHA BALDWIN MD Ot M17.12 UNILATERAL PRIMARY [...] F31.9 BIPOLAR DISORDER, UNSPECIFIED 07/18/2018 KISHA BALDWIN MD Ot F41.9 ANXIETY DISORDER, UNSPECIFIED 07/18/2018 KISHA BALDWIN MD Ot G47.30 SLEEP APNEA, UNSPECIFIED 07/18/2018 KISHA BALDWIN MD Ot G47.33 OBSTRUCTIVE SLEEP APNEA (ADULT) (PEDIATR 07/18/2018 KISHA BALDWIN MD Ot I51.7 CARDIOMEGALY 07/18/2018 KISHA BALDWIN MD, Ot J30.9 ALLERGIC RHINITIS, UNSPECIFIED 07/18/2018 KISHA BALDWIN MD Ot J44.9 CHRONIC OBSTRUCTIVE PULMONARY DISEASE, U 07/18/2018 KISHA BALDWIN MD Ot M17.12 UNILATERAL PRIMARY OSTEOARTHRITIS, LEFT 07/18/2018 KISHA BALDWIN MD Ot M54.9 DORSALGIA, UNSPECIFIED 07/18/2018 KISHA BALDWIN MD Ot Z2 3 ENCOUNTER FOR IMMUNIZATION 07/18/2018 KISHA BALDWIN MD Ot Z68.41 BODY MASS INDEX (BMI) 40.0-44.9, ADULT 07/18/2018 KISHA BALDWIN MD Ot Z79.84 HALFWAY (CURRENT) USE OF ORAL HYPOGLYC 07/18/2018 KISHA [...] PAIN 10/29/2018 JANELLE ESPITIA APRN Ot Z79.51 HALFWAY (CURRENT) USE OF INHALED STERO 10/29/2018 JANELLE ESPITIA APRN Ot Z79.82 SR. DIRECTOR (CURRENT) USE OF ASPIRIN 10/29/2018 JANELLE ESPITIA [...] .8 ALLERGY STATUS TO OT DRUG/MEDS/BIOL SUB 10/29/2018 JANELLE ESPITIA APRN Ot [...] PAIN 11/02/2018 JANELLE ESPITIA APRN Ot Z79.51 SR. DIRECTOR (CURRENT) USE OF INHALED STERO 11/02/2018 JANELLE ESPITIA APRN Ot Z79.82 HALFWAY (CURRENT) USE OF ASPIRIN 11/02/2018 JANELLE ESPITIA [...] Ot E78. 00 PURE HYPERCHOLESTEROLEMIA, UNSPECIFIED 11/29/2018 YUONG CULLEN, CHRISTO Huston Ot F32. 9 MAJOR [...] R53. 1 WEAKNESS 11/29/2018 YOUNG CULLEN, CHRISTO Hsuton Ot R53. 81 OTHER MALAISE 11/29/2018 YOUNG CULLEN, CHRISTO Huston Ot Z79. 51 HALFWAY (CURRENT) USE OF INHALED STERO 11/29/2018 CHRISTO VIDAL MD Ot Z79. 82 SR. DIRECTOR (CURRENT) USE OF ASPIRIN 11/29/2018 YOUNG CULLEN, CHRISTO Huston Ot Z82. 49 FAMILY HX OF ISCHEM HEART DIS AND OTH DI 11/29/2018 CHRISTO VIDAL MD Ot Z87. 19 PERSONAL HISTORY OF OTHER DISEASES OF TH 11/29/2018 YOUNG CULLEN, CHRISTO Huston Ot Z87.440 PERSONAL HISTORY OF URINARY (TRACT) INFE 11/29/2018 CHRISTO VIDAL MD Ot Z87.448 PERSONAL HISTORY OF OTHER DISEASES OF UR 11/29/2018 YOUNG CULLEN, CHRISTO Huston Ot Z87.891 PERSONAL HISTORY OF NICOTINE DEPENDENCE 11/29/2018 YOUNG CULLEN, CHRISTO Huston Ot Z88. 0 ALLERGY STATUS TO PENICILLIN 11/29/2018 YOUNG CULLEN, CHRISTO Huston Ot Z88. 8 ALLERGY STATUS TO OT DRUG/MEDS/BIOL SUB 11/29/2018 YOUNG CULLEN, CHRISTO Huston [...] OBSTRUCTIVE PULMONARY DISEASE, U 12/02/2018 YOUNG CULLEN, CHRISTO Huston Ot K21. 9 GASTRO-ESOPHAGEAL REFLUX DISEASE WITHOUT 12/02/2018 YOUNG CULLEN, CHRISTO Huston Ot K58. 9 IRRITABLE BOWEL SYNDROME WITHOUT DIARRHE 12/02/2018 YOUNG CULLEN, CHRISTO Huston Ot M79. 10 MYALGIA, UNSPECIFIED SITE 12/02/2018 CHRISTO VIDAL MD Ot R05 COUGH 12/02/2018 CHRISTO VIDAL MD Ot R53. 1 WEAKNESS 12/02/2018 CHRISTO VIDAL MD Ot R53. 81 OTHER MALAISE 12/02/2018 YOUNG CULLEN, CHRISTO Huston Ot Z79. 51 SR. DIRECTOR (CURRENT) USE OF INHALED STERO 12/02/2018 CHRISTO VIDAL MD Ot Z79. 82 HALFWAY (CURRENT) USE OF ASPIRIN 12/02/2018 YOUNG CULLEN, CHRISTO Huston Ot Z82. 49 FAMILY HX OF ISCHEM HEART DIS AND OTH DI 12/02/2018 CHRISTO VIDAL MD Ot Z87. 19 PERSONAL HISTORY OF OTHER DISEASES OF TH 12/02/2018 CHRISTO VIDAL MD Ot Z87.440 PERSONAL HISTORY [...] OTH DRUG/MEDS/BIOL SUB 12/02/2018 YOUNG CULLEN, CHRISTO Robel Ot Z90.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 UTERUS WITH [...] MAJOR DEPRESSIVE DISORDER, SINGLE EPISOD 12/07/2018 YOUNG CULLNE, CHRISTO Huston Ot F41. 9 ANXIETY DISORDER, [...] Huston Ot R53. 81 OTHER MALAISE 12/07/2018 YOUNG CULLEN, CHRISTO Huston Ot Z79. 51 SR. DIRECTOR (CURRENT) USE OF INHALED STERO 12/07/2018 CHRISTO VIDAL MD Ot Z79. 82 SR. DIRECTOR (CURRENT) USE OF ASPIRIN 12/07/2018 CHRISTO VIDAL MD Ot Z82. 49 FAMILY HX OF ISCHEM [...] ALLERGY STATUS TO OT DRUG/MEDS/BIOL SUB 12/07/2018 CHRISTO VIDAL MD Ot 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 12/07/2018 CHRISTO VIDAL MD Ot Z91.041 RADIOGRAPHIC DYE ALLERGY STATUS 12/07/2018 CHRISTO VIDAL MD Ot Z98.890 OTHER SPECIFIED POSTPROCEDURAL STATES 12/16/2018 STEPHANE KIMBLE DO Ot Z01.818 ENCOUNTER FOR OTHER PREPROCEDURAL EXAMIN 12/17/2018 ZAHIRA PETERSEN DO Ot E66. 01 MORBID (SEVERE) OBESITY DUE TO EXCESS CA 12/17/2018 ZAHIRA PETERESN DO Ot J30. 9 ALLERGIC RHINITIS, UNSPECIFIED 12/17/2018 ZAHIRA PETERSEN DO Ot R06. 02 SHORTNESS OF BREATH 12/17/2018 STEPHANE KIMBLE DO Ot Z01.818 ENCOUNTER FOR OTHER PREPROCEDURAL EXAMIN 12/17/2018 STEPHANE KIMBLE DO Ot Z01.818 ENCOUNTER FOR OTHER PREPROCEDURAL EXAMIN 12/18/2018 STEPHANE KIMBLE DO Ot Z01.818 ENCOUNTER FOR OTHER PREPROCEDURAL EXAMIN 12/22/2018 EDI FAUSTIN DO Ot Z12.31 ENCNTR SCREEN MAMMOGRAM FOR MALIGNANT NE 12/22/2018 NICOLASA CULLENKISHA Ot M75.112 INCOMPLETE ROTATR-CUFF TEAR/RUPTR OF L [...] Ot J30. 9 ALLERGIC RHINITIS, UNSPECIFIED 12/22/2018 TRINITY DO, ZAHIRA M Ot R06. 02 SHORTNESS OF BREATH 12/22/2018 RAMIN DO, EDI A Ot R10.12 LEFT UPPER QUADRANT PAIN 12/22/2018 RAMIN DO, EDI A Ot R10.11 RIGHT UPPER QUADRANT PAIN 12/22/2018 DONNA CULLEN, NICKY Lawrence Ot E11.6 5 TYPE 2 DIABETES MELLITUS WITH HYPERGLYCE 12/22/2018 DONNA CULLEN, NICKY Lawrence Ot R10.1 1 RIGHT UPPER QUADRANT PAIN 12/22/2018 KYLAH CULLEN, PATRIC Saucedo Ot R10.31 RIGHT LOWER QUADRANT PAIN 12/22/2018 [...] R06.02 SHORTNESS OF BREATH 12/22/2018 MAJOR GIPSON APRN Ot M79.604 PAIN IN RIGHT LEG 12/22/2018 MAJOR GIPSON APRN Ot M79.605 PAIN IN LEFT LEG 12/22/2018 MAJOR GIPSON APRN Ot R06.00 DYSPNEA, UNSPECIFIED 12/22/2018 MAJOR GIPSON APRN Ot R22.43 LOCALIZED SWELLING, MASS AND LUMP, LOWER 12/22/2018 NICKY THOMPSON MD Ot Z12.3 1 ENCNTR SCREEN MAMMOGRAM FOR MALIGNANT NE 12/22/2018 NICKY THOMPSON MD Ot N63.2 3 UNSPECIFIED LUMP IN THE LEFT BREAST, LOW 12/22/2018 HARRIS, SLY J PRODUCT SPECIALIST Ot R10.11 RIGHT UPPER QUADRANT PAIN 12/22/2018 SLY HARRIS PRODUCT SPECIALIST Ot Z90.49 ACQUIRED ABSENCE OF OTHER SPECIFIED PART 12/22/2018 STEHPANE KIMBLE DO Ot 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 9 TYPE 2 DIABETES MELLITUS WITHOUT COMPLIC 12/22/2018 STEPHANE KIMBLE DO Ot E66. 01 MORBID (SEVERE) OBESITY DUE TO EXCESS CA 12/22/2018 STEPHANE KIMBLE DO Ot E78. 5 HYPERLIPIDEMIA, UNSPECIFIED 12/22/2018 STEPHANE KIMBLE DO D Ot G47. 33 OBSTRUCTIVE SLEEP APNEA (ADULT) (PEDIATR 12/22/2018 STEPHANE KIMBLE DO Ot J43. 9 EMPHYSEMA, UNSPECIFIED 12/22/2018 STEPHANE KIMBLE DO Ot K29. 50 UNSPECIFIED CHRONIC GASTRITIS WITHOUT BL 12/22/2018 STEPHANE KIMBLE DO Ot K44. 9 DIAPHRAGMATIC HERNIA WITHOUT OBSTRUCTION 12/22/2018 STEPHANE KIMBLE DO Ot Z68. 41 BODY MASS INDEX (BMI) 40.0-44.9, ADULT 12/22/2018 STEPHANE KIMBLE DO Ot Z79. 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 9 TYPE 2 DIABETES MELLITUS WITHOUT COMPLIC 12/24/2018 STEPHANE KIMBLE DO Ot E66. 01 MORBID (SEVERE) OBESITY DUE TO EXCESS CA 12/24/2018 STEPHANE KIMBLE DO D Ot E78. 5 HYPERLIPIDEMIA, UNSPECIFIED 12/24/2018 STEPHANE KIMBLE DO Ot G47. 33 OBSTRUCTIVE SLEEP APNEA (ADULT) (PEDIATR 12/24/2018 STEPHANE KIMBLE DO Ot J43. 9 EMPHYSEMA, UNSPECIFIED 12/24/2018 STEPHANE KIMBLE DO Ot K29. 50 UNSPECIFIED CHRONIC GASTRITIS WITHOUT BL 12/24/2018 STEPHANE KIMBLE DO Ot K44. 9 DIAPHRAGMATIC HERNIA WITHOUT OBSTRUCTION 12/24/2018 STEPHANE IKMBLE DO Ot Z68. 41 BODY MASS INDEX (BMI) 40.0-44.9, ADULT 12/24/2018 STEPHANE KIMBLE DO Ot Z79. 84 HALFWAY (CURRENT) USE OF ORAL HYPOGLYC 12/24/2018 STEPHANE KIMBLE DO Ot Z79.899 OTHER SR. DIRECTOR (CURRENT) DRUG THERAPY 12/24/2018 STEPHANE KIMBLE DO [...] 9 DIAPHRAGMATIC HERNIA WITHOUT OBSTRUCTION 12/24/2018 STEPHANE KMIBLE DO Ot Z68. 41 BODY MASS INDEX (BMI) 40.0-44.9, ADULT 12/24/2018 STEPHANE KIMBLE DO Ot Z79. 84 HALFWAY (CURRENT) USE OF ORAL HYPOGLYC 12/24/2018 STEPHANE KIMBLE DO Ot Z79.899 OTHER SR. DIRECTOR (CURRENT) DRUG THERAPY 12/24/2018 STEPHANE KIMBLE DO Ot Z87.891 PERSONAL HISTORY OF NICOTINE DEPENDENCE 12/26/2018 EDI FAUSTIN DO Ot Z12.31 ENCNTR SCREEN MAMMOGRAM FOR MALIGNANT NE 12/26/2018 NICOLASA CULLEN, KISHA Justice Ot M75.112 INCOMPLETE ROTATR-CUFF TEAR/RUPTR OF L S 12/26/2018 EDI FAUSTIN DO Ot J18.9 PNEUMONIA, UNSPECIFIED ORGANISM 12/26/2018 EDI FAUSTIN DO Ot J40 BRONCHITIS, NOT SPECIFIED ACUTE OR CH 12/26/2018 KISHA BALDWIN MD Ot M75.102 UNSP ROTATR-CUFF TEAR/RUPTR OF LEFT SHOU 12/26/2018 KISHA BALDWIN MD Ot Z01.818 ENCOUNTER FOR OTHER PREPROCEDURAL EXAMIN 12/26/2018 KISHA BALDWIN MD Ot Z11.2 ENCOUNTER FOR SCREENING FOR OTHER BACTER 12/26/2018 LORENA CULLEN, KISHA Justice Ot R13.19 OTHER DYSPHAGIA 12/26/2018 KISHA CARRILLO MD Ot R49 .0 DYSPHONIA 12/26/2018 KIHSA CARRILLO MD Ot R13.10 DYSPHAGIA, UNSPECIFIED 12/26/2018 [...] (SEVERE) OBESITY DUE TO EXCESS CA 12/26/2018 TRINITY DO, ZAHIRA M Ot J30. 9 ALLERGIC RHINITIS, UNSPECIFIED 12/26/2018 ZAHIRA PETERSEN DO Ot R06. 02 SHORTNESS OF BREATH 12/26/2018 GELGREG DO, EDI A Ot R10.12 LEFT UPPER QUADRANT PAIN 12/26/2018 ZURILENDER DO, EDI A Ot R10.11 RIGHT UPPER QUADRANT PAIN 12/26/2018 NICKY THOMPSON MD Ot E11.6 5 TYPE 2 DIABETES MELLITUS WITH HYPERGLYCE 12/26/2018 NICKY THOMPSON MD Ot R10.1 1 RIGHT [...] .9 CHEST PAIN, UNSPECIFIED 12/26/2018 MAJOR GIPSON APRN Ot R06.02 SHORTNESS OF BREATH 12/26/2018 MAJOR GIPSON PRODUCT SPECIALIST Ot M79.604 PAIN IN RIGHT LEG 12/26/2018 MAJOR GIPSON PRODUCT SPECIALIST Ot M79.605 PAIN IN LEFT LEG 12/26/2018 MAJOR GIPSON PRODUCT SPECIALIST Ot R06.00 DYSPNEA, UNSPECIFIED 12/26/2018 MAJOR GIPSON PRODUCT SPECIALIST Ot R22.43 LOCALIZED SWELLING, MASS AND LUMP, LOWER 12/26/2018 NICKY THOMPSON MD Ot Z12.3 1 ENCNTR SCREEN MAMMOGRAM FOR MALIGNANT NE 12/26/2018 GAULT MD, NICKY R Ot N63.2 3 UNSPECIFIED LUMP IN THE LEFT BREAST, LOW 12/26/2018 SLY HARRIS PRODUCT SPECIALIST Ot R10.11 RIGHT UPPER QUADRANT PAIN 12/26/2018 SLY HARRIS PRODUCT SPECIALIST Ot Z90.49 ACQUIRED ABSENCE OF OTHER SPECIFIED PART 12/26/2018 REBEKA, OLIVA PROGRAMMER ANALYST Ot E11.9 TYPE 2 DIABETES MELLITUS WITHOUT COMPLIC 12/26/2018 REBEKA, OLIVA PROGRAMMER ANALYST Ot E66.9 OBESITY, UNSPECIFIED 12/26/2018 REBEKA, OLIVA PROGRAMMER ANALYST Ot F32.9 MAJOR DEPRESSIVE DISORDER, SINGLE EPISOD 12/26/2018 REBEKA, OLIVA PROGRAMMER ANALYST Ot F41.9 ANXIETY DISORDER, UNSPECIFIED 12/26/2018 REBEKA, OLIVA PROGRAMMER ANALYST Ot G25.81 RESTLESS LEGS SYNDROME 12/26/2018 REBEKA, OLIVA PROGRAMMER ANALYST Ot H66.93 OTITIS MEDIA, UNSPECIFIED, BILATERAL 12/26/2018 REBEKA, OLIVA PROGRAMMER ANALYST Ot J02.9 ACUTE PHARYNGITIS, UNSPECIFIED 12/26/2018 REBEKA, OLIVA PROGRAMMER ANALYST Ot J06.9 ACUTE UPPER RESPIRATORY INFECTION, UNSPE 12/26/2018 REBEKA OLIVA PROGRAMMER ANALYST Ot K21.9 GASTRO-ESOPHAGEAL REFLUX DISEASE WITHOUT 12/26/2018 REBEKA, OLIVA PROGRAMMER ANALYST Ot K58.9 IRRITABLE BOWEL SYNDROME WITHOUT DIARRHE 12/26/2018 REBEKA OLIVA PROGRAMMER ANALYST Ot Z68.41 BODY MASS INDEX (BMI) 40.0-44.9, ADULT 12/26/2018 REBEKA OLIVA PROGRAMMER ANALYST Ot Z79.51 SR. DIRECTOR (CURRENT) USE OF INHALED STERO 12/26/2018 REBEKA OLIVA PROGRAMMER ANALYST Ot Z79.84 HALFWAY (CURRENT) USE OF ORAL HYPOGLYC 12/26/2018 REBEKA OLIVA PROGRAMMER ANALYST Ot Z82.49 FAMILY HX OF ISCHEM HEART DIS AND OTH DI 12/26/2018 OLIVA STALEY PROGRAMMER ANALYST Ot Z87.19 PERSONAL HISTORY OF OTHER DISEASES OF TH 12/26/2018 OLIVA STALEY PROGRAMMER ANALYST Ot Z87.440 PERSONAL HISTORY OF URINARY (TRACT) INFE 12/26/2018 REBEKA OLIVA PROGRAMMER ANALYST Ot Z87.448 PERSONAL HISTORY OF OTHER DISEASES OF UR 12/26/2018 OLIVA STALEY PROGRAMMER ANALYST Ot Z87.891 PERSONAL HISTORY OF NICOTINE DEPENDENCE [...] 33 OBSTRUCTIVE SLEEP APNEA (ADULT) (PEDIATR 12/30/2018 STEPAHNE KIMBLE DO Ot J43. 9 EMPHYSEMA, UNSPECIFIED 12/30/2018 STEPHANE KIMBLE DO Ot K29. 50 UNSPECIFIED CHRONIC GASTRITIS WITHOUT BL 12/30/2018 STEPHANE KIMBLE DO Ot K44. 9 DIAPHRAGMATIC HERNIA WITHOUT OBSTRUCTION 12/30/2018 STEPHANE KIMBLE DO Ot Z68. 41 BODY MASS INDEX (BMI) 40.0-44.9, ADULT 12/30/2018 STEPHANE KIMBLE DO Ot Z79. 84 HALFWAY (CURRENT) USE OF ORAL HYPOGLYC 12/30/2018 STEPHANE KIMBLE DO Ot Z79.899 OTHER SR. DIRECTOR (CURRENT) DRUG THERAPY 12/30/2018 STEPHANE KIMBLE DO Ot Z87.891 PERSONAL HISTORY OF NICOTINE DEPENDENCE 12/30/2018 OLIVA STALEY Ot E11.9 TYPE 2 DIABETES MELLITUS WITHOUT COMPLIC 12/30/2018 OLIVA STALEY Ot E66.9 OBESITY, UNSPECIFIED 12/30/2018 REBEKA, OLIVA PROGRAMMER ANALYST Ot F32.9 MAJOR DEPRESSIVE DISORDER, SINGLE EPISOD 12/30/2018 REBEKAOLIVA Gallegos PROGRAMMER ANALYST Ot F41.9 ANXIETY DISORDER, UNSPECIFIED 12/30/2018 REBEKAOLIVA Gallegos PROGRAMMER ANALYST Ot G25.81 RESTLESS LEGS SYNDROME 12/30/2018 REBEKAOLIVA Gallegos PROGRAMMER ANALYST Ot H66.93 OTITIS MEDIA, UNSPECIFIED, BILATERAL 12/30/2018 REBEKAOLIVA GallegosP Ot J02.9 ACUTE PHARYNGITIS, UNSPECIFIED 12/30/2018 REBEKAOLIVA GallegosP Ot J06.9 ACUTE UPPER RESPIRATORY INFECTION, UNSPE 12/30/2018 REBEKAOLIVA GallegosP Ot K21.9 GASTRO-ESOPHAGEAL REFLUX DISEASE WITHOUT 12/30/2018 REBEKA, OLIVA PROGRAMMER ANALYST Ot K58.9 IRRITABLE BOWEL SYNDROME WITHOUT DIARRHE 12/30/2018 REBEKAOLIVA GallegosP Ot Z68.41 BODY MASS INDEX (BMI) 40.0-44.9, ADULT 12/30/2018 OLIVA STALEYP Ot Z79.51 HALFWAY (CURRENT) USE OF INHALED STERO 12/30/2018 OLIVA STALEYP Ot Z79.84 HALFWAY (CURRENT) USE OF ORAL HYPOGLYC 12/30/2018 REBEKAOLIVA Gallegos PROGRAMMER ANALYST Ot Z82.49 FAMILY HX OF ISCHEM HEART DIS AND OTH DI 12/30/2018 OLIVA STALEYP Ot Z87.19 PERSONAL HISTORY OF OTHER DISEASES OF TH 12/30/2018 OLIVA STALEYP Ot Z87.440 PERSONAL HISTORY OF URINARY (TRACT) INFE 12/30/2018 OLIVA STALEYP Ot Z87.448 PERSONAL HISTORY OF OTHER DISEASES OF UR 12/30/2018 OLIVA STALEY PROGRAMMER ANALYST Ot Z87.891 PERSONAL HISTORY OF NICOTINE DEPENDENCE 12/30/2018 OLIVA STALEY PROGRAMMER ANALYST Ot Z88.0 ALLERGY STATUS TO PENICILLIN 12/30/2018 OLIVA STALEY PROGRAMMER ANALYST Ot Z88.8 ALLERGY STATUS TO OT DRUG/MEDS/BIOL SUB 12/30/2018 OLIVA STALEYP Ot 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 12/30/2018 OLIVA STALEYP Ot Z91.041 RADIOGRAPHIC DYE ALLERGY STATUS 12/30/2018 OLIVA STALEYP Ot Z96.652 PRESENCE OF LEFT ARTIFICIAL KNEE JOINT 12/30/2018 OLIVA STALEY PROGRAMMER ANALYST Ot Z98.890 OTHER SPECIFIED POSTPROCEDURAL STATES 01/04/2019 KISHA BALDWIN MD Ot Z01.818 ENCOUNTER FOR OTHER PREPROCEDURAL EXAMIN 01/06/2019 ZAHIRA PETERSEN DO, Ot E66. 01 MORBID (SEVERE) OBESITY DUE TO EXCESS CA 01/06/2019 ZAHIRA PETERSEN DO Ot J30. 9 ALLERGIC RHINITIS, UNSPECIFIED 01/06/2019 [...] F31.9 BIPOLAR DISORDER, UNSPECIFIED 01/06/2019 KISHA BALDWIN MD Ot F41.9 ANXIETY DISORDER, UNSPECIFIED 01/06/2019 KISHA BALDWIN MD Ot G47.33 OBSTRUCTIVE SLEEP APNEA (ADULT) (PEDIATR 01/06/2019 KISHA BALDWIN MD Ot J44.9 CHRONIC OBSTRUCTIVE PULMONARY DISEASE, U 01/06/2019 KISHA BALDWIN MD Ot K21.9 GASTRO-ESOPHAGEAL REFLUX DISEASE WITHOUT 01/06/2019 KISHA BALDIWN MD Ot M16.12 UNILATERAL PRIMARY OSTEOARTHRITIS, LEFT 01/06/2019 KISHA BALDWIN MD Ot M79.7 FIBROMYALGIA 01/06/2019 KISHA BALDWIN MD Ot Z68.41 BODY MASS INDEX (BMI) 40.0-44.9, ADULT 01/06/2019 KISHA BALDWIN MD Ot Z79.84 SR. DIRECTOR (CURRENT) USE OF ORAL HYPOGLYC 01/06/2019 KISHA BALDWIN MD Ot Z79.899 OTHER SR. DIRECTOR (CURRENT) DRUG THERAPY 01/06/2019 KISHA BALDWIN MD Ot Z87.891 PERSONAL HISTORY OF NICOTINE DEPENDENCE 01/06/2019 KISHA BALDWIN MD Ot Z88.0 ALLERGY STATUS TO PENICILLIN 01/06/2019 KISHA BALDWIN MD Ot Z91.041 RADIOGRAPHIC DYE ALLERGY STATUS 01/06/2019 [...] INDEX (BMI) 40.0-44.9, ADULT 01/07/2019 KISHA BALDWIN MD, Ot Z79.84 SR. DIRECTOR (CURRENT) USE OF ORAL HYPOGLYC 01/07/2019 KISHA BALDWIN MD, Ot Z79.899 OTHER HALFWAY (CURRENT) DRUG THERAPY 01/07/2019 KISHA BALDWIN MD, [...] M16.12 UNILATERAL PRIMARY OSTEOARTHRITIS, LEFT 01/07/2019 KISHA BALDIWN MD, Ot M79.7 FIBROMYALGIA 01/07/2019 KISHA BALDWIN MD, Ot Z68.41 BODY MASS INDEX (BMI) 40.0-44.9, ADULT 01/07/2019 KISHA BALDWIN MD, Ot Z79.84 SR. DIRECTOR (CURRENT) USE OF ORAL HYPOGLYC 01/07/2019 KISHA BALDWIN MD, Ot Z79.899 OTHER SR. DIRECTOR (CURRENT) DRUG THERAPY 01/07/2019 KISHA BALDWIN MD, [...] ADULT 01/14/2019 KISHA BALDWIN MD, Ot Z79.84 HALFWAY (CURRENT) USE OF ORAL HYPOGLYC 01/14/2019 KISHA BALDWIN MD, Ot Z79.899 OTHER HALFWAY (CURRENT) DRUG THERAPY 01/14/2019 KISHA BALDWIN MD, [...] 40.0-44.9, ADULT 05/06/2019 GHASSAN HARVEY Ot Z79.51 HALFWAY (CURRENT) USE OF INHALED STERO 05/06/2019 GHASSAN HARVEY Ot Z79.84 HALFWAY (CURRENT) USE OF ORAL HYPOGLYC 05/06/2019 LYLA HARVEYIS Ot Z87.19 PERSONAL HISTORY OF OTHER DISEASES [...] Ot Z91.041 RADIOGRAPHIC DYE ALLERGY STATUS 05/06/2019 LYLA HARVEYIS Ot Z96.612 PRESENCE OF LEFT ARTIFICIAL SHOULDER MILLA 05/06/2019 LYLA HARVEYIS Ot Z96.653 PRESENCE OF ARTIFICIAL KNEE JOINT, BILAT 05/10/2019 LYLA HARVEYIS Ot E11.9 TYPE 2 DIABETES MELLITUS WITHOUT COMPLIC 05/10/2019 LYLA HARVEYIS Ot E66.9 OBESITY, UNSPECIFIED 05/10/2019 LYLA HARVEYIS Ot E78.00 PURE HYPERCHOLESTEROLEMIA, UNSPECIFIED 05/10/2019 LYLA HARVEYIS Ot F31.9 BIPOLAR DISORDER, UNSPECIFIED 05/10/2019 LYLA HARVEYIS Ot F41.9 ANXIETY DISORDER, UNSPECIFIED 05/10/2019 LYLA HARVEYIS Ot G47.30 SLEEP APNEA, UNSPECIFIED 05/10/2019 GHASSAN HARVEY Ot J44.9 CHRONIC OBSTRUCTIVE PULMONARY DISEASE, U 05/10/2019 GHASSAN HARVEY Ot K21.9 GASTRO-ESOPHAGEAL REFLUX DISEASE WITHOUT 05/10/2019 LYLA HARVEYIS Ot K58.9 IRRITABLE BOWEL SYNDROME WITHOUT DIARRHE 05/10/2019 GHASSAN HARVEY Ot L76.34 POSTPROC SEROMA OF SKIN, SUBCU FOLLOWING 05/10/2019 WES GHASSAN Ot M79.7 FIBROMYALGIA 05/10/2019 GHASSAN HARVEY Ot Z68.41 BODY MASS INDEX (BMI) 40.0-44.9, ADULT 05/10/2019 GHASSAN HARVEY Ot Z79.51 HALFWAY (CURRENT) USE OF INHALED STERO 05/10/2019 GHASSAN HARVEY Ot Z79.84 HALFWAY (CURRENT) USE OF ORAL HYPOGLYC 05/10/2019 LYLA HARVEYIS Ot Z87.19 PERSONAL HISTORY OF OTHER DISEASES OF TH 05/10/2019 GHASSAN HARVEY Ot Z87.440 PERSONAL HISTORY OF URINARY (TRACT) INFE 05/10/2019 LYLA HARVEYIS Ot Z87.891 PERSONAL HISTORY OF NICOTINE DEPENDENCE 05/10/2019 LYLA HARVEYIS Ot Z88.0 ALLERGY STATUS TO PENICILLIN 05/10/2019 LYLA HARVEYIS Ot Z88.1 ALLERGY STATUS TO OTHER ANTIBIOTIC AGENT 05/10/2019 LYLA HARVEYIS Ot Z88.8 ALLERGY STATUS TO OT DRUG/MEDS/BIOL SUB 05/10/2019 LYLA HARVEYIS Ot 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 05/10/2019 GHASSAN HARVEY Ot Z91.041 RADIOGRAPHIC DYE ALLERGY STATUS 05/10/2019 GHASSAN HARVEY Ot Z96.612 PRESENCE OF LEFT ARTIFICIAL SHOULDER MILLA 05/10/2019 GHASSAN HARVEY Ot Z96.653 PRESENCE OF ARTIFICIAL KNEE JOINT, BILAT 06/24/2019 ZAHIRA PETERSEN DO Ot E66. 01 MORBID (SEVERE) OBESITY DUE TO EXCESS CA 06/24/2019 ZAHIRA PETERSEN DO Ot J30. 9 ALLERGIC RHINITIS, UNSPECIFIED 06/24/2019 ZAHIRA PETERSEN DO Ot R06. 02 SHORTNESS OF BREATH 06/24/2019 NICOLASA CULLEN, KISHA Justice Ot Z01.818 ENCOUNTER FOR OTHER PREPROCEDURAL EXAMIN 06/30/2019 ZAHIRA PETERSEN DO Ot E66. 01 MORBID (SEVERE) OBESITY DUE TO EXCESS CA 06/30/2019 ZAHIRA PETERSEN DO, Ot J30. 9 ALLERGIC RHINITIS, UNSPECIFIED 06/30/2019 ZAHIRA PETERSEN DO Ot R06. 02 SHORTNESS OF BREATH 06/30/2019 KIHSA BALDWIN MD, Ot E11.9 TYPE 2 DIABETES [...] KNEE 06/30/2019 KISHA BALDWIN MD, Ot Z79.84 SR. DIRECTOR (CURRENT) USE OF ORAL HYPOGLYC 06/30/2019 KISHA BALDWIN MD, Ot Z79.891 SR. DIRECTOR (CURRENT) USE OF OPIATE ANALGE 06/30/2019 KISHA BALDWIN MD, Ot Z79.899 OTHER HALFWAY (CURRENT) DRUG THERAPY 06/30/2019 KISHA BALDWIN MD, [...] KNEE 07/07/2019 KISHA BALDWIN MD, Ot Z79.84 SR. DIRECTOR (CURRENT) USE OF ORAL HYPOGLYC 07/07/2019 KISHA BALDWIN MD, Ot Z79.891 HALFWAY (CURRENT) USE OF OPIATE ANALGE 07/07/2019 KISHA BALDWIN MD, Ot Z79.899 OTHER HALFWAY (CURRENT) DRUG THERAPY 07/07/2019 KISHA BALDWIN MD, [...] KNEE 07/07/2019 KISHA BALDWIN MD, Ot Z79.84 SR. DIRECTOR (CURRENT) USE OF ORAL HYPOGLYC 07/07/2019 KISHA BALDWIN MD, Ot Z79.891 HALFWAY (CURRENT) USE OF OPIATE ANALGE 07/07/2019 KISHA BALDWIN MD, Ot Z79.899 OTHER HALFWAY (CURRENT) DRUG THERAPY 07/07/2019 KISHA BALDWIN MD, [...] KOROMA DO, ARELY L Ot Z79.5 1 HALFWAY (CURRENT) USE OF INHALED STERO 08/05/2019 KOROMA DO, ARELY L Ot Z79.8 4 HALFWAY (CURRENT) USE OF ORAL HYPOGLYC 08/05/2019 KOROMA [...] FOR MALIGNANT NE 08/13/2019 NICKY THOMPSON MD R Ot Z12.3 1 ENCNTR SCREEN MAMMOGRAM FOR MALIGNANT NE 08/23/2019 NICKY THOMPSON MD R Ot Z00.0 0 ENCNTR FOR GENERAL ADULT [...] ENCNTR SCREEN MAMMOGRAM FOR MALIGNANT NE 09/28/2019 EDI FAUSTIN DO Ot Z12.31 ENCNTR SCREEN [...] SOLITARY PULMONARY NODULE 09/28/2019 EDI FAUSTIN DO Ot N64.4 MASTODYNIA 09/28/2019 ZAHIRA PETERSEN DO Ot E66. 01 MORBID (SEVERE) OBESITY DUE TO EXCESS CA 09/28/2019 ZAHIRA PETERSEN DO Ot J30. 9 ALLERGIC RHINITIS, UNSPECIFIED 09/28/2019 ZAHIRA PETERSEN DO Ot R06. 02 SHORTNESS OF BREATH 09/28/2019 RAMIN LOU, EDI A Ot R10.12 LEFT UPPER QUADRANT PAIN 09/28/2019 RMAIN LOU, EDI A Ot R10.11 RIGHT UPPER QUADRANT PAIN 09/28/2019 NICKY THOMPSON MD Ot E11.6 5 TYPE 2 DIABETES MELLITUS WITH HYPERGLYCE 09/28/2019 NICKY THOMPSON MD Ot R10.1 1 RIGHT UPPER QUADRANT PAIN 09/28/2019 KYLAH CULLEN, PATRIC Saucedo Ot R10.31 RIGHT LOWER QUADRANT PAIN 09/28/2019 CECELIA CULLEN, Nia WILSON Ot E11 .9 TYPE 2 DIABETES MELLITUS WITHOUT COMPLIC 09/28/2019 CECELIA CULLEN, Nia WILSON Ot E78 .5 HYPERLIPIDEMIA, UNSPECIFIED 09/28/2019 CECELIA CULLEN, Nia WILSON Ot J44 .9 CHRONIC OBSTRUCTIVE PULMONARY DISEASE, U 09/28/2019 CECELIA CULLEN, Nia WILSON Ot R07 .9 CHEST PAIN, UNSPECIFIED 09/28/2019 [...] LOCALIZED SWELLING, MASS AND LUMP, LOWER 09/28/2019 DONNA CULLEN, NICKY Lawrence Ot Z12.3 1 ENCNTR SCREEN MAMMOGRAM FOR MALIGNANT NE 09/28/2019 DONNA CULLEN, NICKY Lawrence Ot N63.2 3 UNSPECIFIED LUMP IN THE LEFT BREAST, LOW 09/28/2019 SLY HARRIS APRN Ot R10.11 RIGHT UPPER QUADRANT PAIN 09/28/2019 SLY HARRIS APRN Ot Z90.49 ACQUIRED ABSENCE OF OTHER SPECIFIED PART 09/28/2019 DONNA CULLEN, NICKY Lawrence Ot Z00.0 0 ENCNTR FOR GENERAL ADULT MEDICAL EXAM W/ 09/28/2019 DONNA CULLEN, NICKY Lawrence Ot Z12.3 1 [...] PAIN 09/28/2019 JANELLE ESPITIA APRN Ot Z79.51 SR. DIRECTOR (CURRENT) USE OF INHALED STERO 09/28/2019 JANELLE ESPITIA APRN Ot Z79.52 SR. DIRECTOR (CURRENT) USE OF SYSTEMIC STER 09/28/2019 JANELLE ESPITIA APRN Ot Z79.84 HALFWAY (CURRENT) USE OF ORAL HYPOGLYC 09/28/2019 JANELLE SEPITIA APRN Ot Z87.440 PERSONAL HISTORY OF URINARY [...] PAIN 10/01/2019 JANELLE ESPITIA APRN Ot Z79.51 HALFWAY (CURRENT) USE OF INHALED STERO 10/01/2019 JANELLE ESPITIA APRN Ot Z79.52 SR. DIRECTOR (CURRENT) USE OF SYSTEMIC STER 10/01/2019 JANELLE ESPITIA APRN Ot Z79.84 HALFWAY (CURRENT) USE OF ORAL HYPOGLYC 10/01/2019 JANELLE [...] .8 ALLERGY STATUS TO OTH DRUG/MEDS/BIOL SUB 10/01/2019 JANELLE ESPITIA APRN Ot [...] COUGH 11/10/2019 JANELLE ESPITIA APRN Ot Z79.84 SR. DIRECTOR (CURRENT) USE OF ORAL HYPOGLYC 11/10/2019 JANELLE ESPITIA APRN Ot Z87.891 PERSONAL HISTORY OF NICOTINE DEPENDENCE 11/10/2019 JANELLE ESPITIA APRN Ot Z88 .0 ALLERGY STATUS TO PENICILLIN 11/10/2019 JANELLE ESPITIA PRODUCT SPECIALIST Ot Z88 .1 ALLERGY STATUS TO OTHER ANTIBIOTIC AGENT 11/10/2019 JANELLE ESPITIA PRODUCT SPECIALIST Ot Z88 .8 ALLERGY STATUS TO OTH [...] COUGH 11/15/2019 JANELLE ESPITIA APRN Ot Z79.84 SR. DIRECTOR (CURRENT) USE OF ORAL HYPOGLYC 11/15/2019 JANELLE ESPITIA PRODUCT SPECIALIST Ot Z87.891 PERSONAL HISTORY OF NICOTINE DEPENDENCE 11/15/2019 JANELLE ESPITIA APRN Ot Z88 .0 ALLERGY STATUS TO PENICILLIN 11/15/2019 JANELLE ESPITIA PRODUCT SPECIALIST Ot Z88 .1 ALLERGY STATUS TO OTHER ANTIBIOTIC AGENT 11/15/2019 JANELLE ESPITIA PRODUCT SPECIALIST Ot Z88 .8 ALLERGY STATUS TO OTH [...] COUGH 11/17/2019 JANELLE ESPITIA APRN Ot Z79.84 HALFWAY (CURRENT) USE OF ORAL HYPOGLYC 11/17/2019 JANELLE ESPITIA APRN Ot Z87.891 PERSONAL HISTORY OF NICOTINE DEPENDENCE 11/17/2019 JANELLE ESPITIA APRN Ot Z88 .0 ALLERGY STATUS TO PENICILLIN 11/17/2019 JANELLE ESPITIA APRN Ot Z88 .1 ALLERGY STATUS TO OTHER ANTIBIOTIC AGENT 11/17/2019 JANELLE ESPITIA APRN Ot Z88 .8 ALLERGY STATUS TO OTH DRUG/MEDS/BIOL SUB 11/17/2019 JANELLE ESPITIA APRN Ot Z91.041 RADIOGRAPHIC DYE ALLERGY STATUS 01/06/2020 LAUREL SHEN MD Ot E66. 9 OBESITY, UNSPECIFIED 01/06/2020 LAUREL SHEN MD Ot E78. 00 PURE HYPERCHOLESTEROLEMIA, UNSPECIFIED 01/06/2020 LAUREL SHEN MD Ot F31. 9 BIPOLAR DISORDER, UNSPECIFIED 01/06/2020 LAUREL SHEN MD Ot F41. 9 ANXIETY DISORDER, UNSPECIFIED 01/06/2020 LAUREL SHEN MD Ot G47. 30 SLEEP APNEA, UNSPECIFIED 01/06/2020 LAUREL SHEN MD Ot J44. 9 CHRONIC OBSTRUCTIVE PULMONARY DISEASE, U 01/06/2020 HERMELINDA MD, LAUREL J Ot K21. 9 GASTRO-ESOPHAGEAL REFLUX DISEASE WITHOUT 01/06/2020 HERMELINDA CULLEN, LAUREL J Ot M19. 91 PRIMARY OSTEOARTHRITIS, UNSPECIFIED SITE 01/06/2020 HERMELINDA CULLEN, LAUREL J Ot M79. 7 FIBROMYALGIA 01/06/2020 HERMELINDA CULLEN, LAUREL J Ot R07. 81 PLEURODYNIA 01/06/2020 HERMELINDA CULLEN, LAUREL J Ot R07. 9 CHEST PAIN, UNSPECIFIED 01/06/2020 HERMELINDA CULLEN, LAUREL J Ot Z87.891 PERSONAL HISTORY OF NICOTINE DEPENDENCE 01/07/2020 HERMELINDA CULLEN, LAUREL J Ot E66. 9 OBESITY, UNSPECIFIED 01/07/2020 HERMELINDA CULLEN, LAUREL J Ot E78. 00 PURE HYPERCHOLESTEROLEMIA, UNSPECIFIED 01/07/2020 HERMELINDA CULLEN, LAUREL J Ot F31. 9 BIPOLAR DISORDER, UNSPECIFIED 01/07/2020 HERMELINDA CULLEN, LAUREL J Ot F41. 9 ANXIETY DISORDER, UNSPECIFIED 01/07/2020 HERMELINDA CULLEN, LAUREL J Ot G47. 30 SLEEP APNEA, UNSPECIFIED 01/07/2020 HERMELINDA CULLEN, LAUREL J Ot J44. 9 CHRONIC OBSTRUCTIVE PULMONARY DISEASE, U 01/07/2020 HERMELINDA CULLEN, LAUREL J Ot K21. 9 GASTRO-ESOPHAGEAL REFLUX DISEASE WITHOUT 01/07/2020 HERMELINDA CULLEN, LAUREL J Ot M19. 91 PRIMARY OSTEOARTHRITIS, UNSPECIFIED SITE 01/07/2020 HERMELINDA CULLEN, LAUREL J Ot M79. 7 FIBROMYALGIA 01/07/2020 HERMELINDA CULLEN, LAUREL J Ot R07. 81 PLEURODYNIA 01/07/2020 HERMELINDA CULLEN, LAUREL J Ot R07. 9 CHEST PAIN, UNSPECIFIED 01/07/2020 HERMELINDA CULLEN, LAUREL J Ot Z87.891 PERSONAL HISTORY OF NICOTINE DEPENDENCE 01/13/2020 LAUREL SHEN MD J Ot E66. 9 OBESITY, UNSPECIFIED 01/13/2020 HERMELINDA CULLEN, LAUREL J Ot E78. 00 PURE HYPERCHOLESTEROLEMIA, UNSPECIFIED 01/13/2020 HERMELINDA CULLEN, LAUREL Velasco Ot F31. 9 BIPOLAR DISORDER, UNSPECIFIED 01/13/2020 HERMELINDA CULLEN, LAUREL J Ot F41. 9 ANXIETY DISORDER, UNSPECIFIED 01/13/2020 HERMELINDA CULLEN, LAUREL J Ot G47. 30 SLEEP APNEA, UNSPECIFIED 01/13/2020 HERMELINDA MD, LAUREL J Ot J44. 9 CHRONIC OBSTRUCTIVE PULMONARY DISEASE, U 01/13/2020 LAUREL SHEN MD Ot K21. 9 GASTRO-ESOPHAGEAL REFLUX DISEASE WITHOUT 01/13/2020 LAUREL SHEN MD Ot M19. 91 PRIMARY OSTEOARTHRITIS, UNSPECIFIED SITE 01/13/2020 LAUREL SHEN MD Ot M79. 7 FIBROMYALGIA 01/13/2020 LAUREL SHEN MD Ot R07. 81 PLEURODYNIA 01/13/2020 LAUREL SHEN MD Ot R07. 9 CHEST PAIN, UNSPECIFIED 01/13/2020 LAUREL SHEN MD Ot Z87.891 PERSONAL HISTORY OF NICOTINE DEPENDENCE 01/13/2020 LAUREL SHEN MD Ot E66. 9 OBESITY, UNSPECIFIED 01/13/2020 LAUREL SHEN MD Ot E78. 00 PURE HYPERCHOLESTEROLEMIA, UNSPECIFIED 01/13/2020 LAUREL SHEN MD Ot F31. 9 BIPOLAR DISORDER, UNSPECIFIED 01/13/2020 LAUREL SHEN MD Ot F41. 9 ANXIETY DISORDER, UNSPECIFIED 01/13/2020 LAUREL SHEN MD Ot G47. 30 SLEEP APNEA, UNSPECIFIED 01/13/2020 LAUREL SHEN MD Ot J44. 9 CHRONIC OBSTRUCTIVE PULMONARY DISEASE, U 01/13/2020 LAUREL SHEN MD Ot K21. 9 GASTRO-ESOPHAGEAL REFLUX DISEASE WITHOUT 01/13/2020 LAUREL SHEN MD Ot M19. 91 PRIMARY OSTEOARTHRITIS, UNSPECIFIED SITE 01/13/2020 LAUREL SHEN MD Ot M79. 7 FIBROMYALGIA 01/13/2020 LAUREL SHEN MD Ot R07. 81 PLEURODYNIA 01/13/2020 LAUREL SHEN MD Ot R07. 9 CHEST PAIN, UNSPECIFIED 01/13/2020 LAUREL SHEN MD Ot Z87.891 PERSONAL HISTORY OF NICOTINE DEPENDENCE Procedures Code Description Performed By Per formed On [id number] RE PLACE OF L KNEE JT WITH [...] culture - 06/09/16 16:24 Bacterial urine culture [id number] NRG COLONY COUNT <10,000 NRG FTX;REPORTABLE SENSITIVITY REPORTED AT 1307, 9-14- 16 NRG URINE CULTURE RESULTS PLUS NRG [...] i.cardiac measurement (mass/v olume) < ng/mL <0.30 Comp. Metabolic Panel (14) - 08/26/16 10 :23 Glucose, Serum 190 mg/dL 65-99 BUN 13 mg/dL 6-24 Creatinine, Serum 0.77 mg/dL 0.57-1.00 eGFR If NonAfricn Am 88 mL/min/1.73 >59 eGFR If Africn Am 102 mL/min/1.73 >5 9 BUN/Creatinine Ratio 17 9-23 Sodium, Serum 139 mmol/L 136-144 Potassium, Serum 4.1 mmol/L 3.5-5.2 Chloride, Serum 98 mmol/L 97-106 Carbon Dioxide, Total 23 mmol/L 18-29 Calcium, Serum 9.5 mg/dL 8.7-10.2 Protein, Total, Serum 7.1 g/dL 6.0-8.5 Albumin, Serum 4.2 g/dL 3.5-5.5 Globulin, Total 2.9 g/dL 1.5-4.5 A/G Ratio 1.4 1.1-2.5 Bilirubin, Total 0.3 mg/dL 0.0-1.2 Alkaline Phosphatase, S 136 IU/L 39-117 AST (SGOT) 18 IU/L 0-40 ALT (SGPT) 22 IU/L 0-32 Lipid Panel - 08/26/16 10:23 Cholesterol, Total 176 mg/dL 100-199 Triglycerides 199 mg/dL 0-149 HDL Cholesterol 51 mg/dL >39 VLDL Cholesterol Curtis 40 mg/dL 5-40 LDL Cholesterol Calc 85 mg/dL 0-99 TSH - 08/26/16 10:23 TSH 1.290 uIU/mL 0.450-4.500 Streptococcus pyogenes antigen detection - 09/13/16 05:00 [...] by glucometer (mas s/volume) 123 mg/dL 70-110 HSV Culture and Typing - 10/03/16 14:51 HSV Culture/Type Comment Genital Culture, Routine - 10/03/16 14:5 1 Genital Culture, Routine Note Complete urinalysis with reflex to cultu re [...] protein measurement (mass/v olume) 0.59 mg/dL 0.00-0.50 Urine Culture, Routine - 10/29/16 10:36 Urine Culture, Routine Note CBC With Differential/Platelet - 7 10:36 WBC 8.3 x10E3/uL 3.4-10.8 RBC 4.37 x10E6/uL 3.77-5.28 Hemoglobin 12.1 g/dL 11.1-15.9 Hematocrit 36.7 % 34.0-46.6 MCV 84 fL 79-97 MCH 27.7 pg 26.6-33.0 MCHC 33.0 g/dL 31.5-35.7 RDW 14.1 % 12.3-15.4 Platelets 223 x10E3/uL 150-379 Neutrophils 59 % Lymphs 33 % Monocytes 6 % Eos 2 % Basos 0 % Neutrophils (Absolute) 4.9 x10E3/uL 1.4- 7.0 Lymphs (Absolute) 2.7 x10E3/uL 0.7-3.1 Monocytes(Absolute) 0.5 x10E3/uL 0.1-0.9 Eos (Absolute) 0.2 x10E3/uL 0.0-0.4 Baso (Absolute) 0.0 x10E3/uL 0.0-0.2 Immature Granulocytes 0 % Immature Grans (Abs) 0.0 x10E3/uL 0.0-0. 1 Comp. Metabolic Panel (14) - 10/29/16 10 :36 Glucose, Serum 149 mg/dL 65-99 BUN 9 mg/dL 6-24 Creatinine, Serum 0.74 mg/dL 0.57-1.00 eGFR If NonAfricn Am 93 mL/min/1.73 >59 eGFR If Africn Am 107 mL/min/1.73 >5 9 BUN/Creatinine Ratio 12 9-23 Sodium, Serum 136 mmol/L 134-144 Potassium, Serum 4.0 mmol/L 3.5-5.2 Chloride, Serum 98 mmol/L 96-106 Carbon Dioxide, Total 23 mmol/L 18-29 Calcium, Serum 9.3 mg/dL 8.7-10.2 Protein, Total, Serum 7.2 g/dL 6.0-8.5 Albumin, Serum 4.1 g/dL 3.5-5.5 Globulin, Total 3.1 g/dL 1.5-4.5 A/G Ratio 1.3 1.1-2.5 Bilirubin, Total 0.3 mg/dL 0.0-1.2 Alkaline Phosphatase, S 109 IU/L 39-117 AST (SGOT) 30 IU/L 0-40 ALT (SGPT) 27 IU/L 0-32 Complete blood count (CBC) with automate d [...] 10:21 Streptococcus pyogenes antigen detection POSITIVE NEGATIVE CBC With Differential/Platelet - 7 14:06 WBC 10.0 x10E3/uL 3.4-10.8 RBC 4.59 x10E6/uL 3.77-5.28 Hemoglobin 12.6 g/dL 11.1-15.9 Hematocrit 38.5 % 34.0-46.6 MCV 84 fL 79-97 MCH 27.5 pg 26.6-33.0 MCHC 32.7 g/dL 31.5-35.7 RDW 15.0 % 12.3-15.4 Platelets 254 x10E3/uL 150-379 Neutrophils 62 % Lymphs 32 % Monocytes 4 % Eos 2 % Basos 0 % Neutrophils (Absolute) 6.2 x10E3/uL 1.4- 7.0 Lymphs (Absolute) 3.2 x10E3/uL 0.7-3.1 Monocytes(Absolute) 0.4 x10E3/uL 0.1-0.9 Eos (Absolute) 0.2 x10E3/uL 0.0-0.4 Baso (Absolute) 0.0 x10E3/uL 0.0-0.2 Immature Granulocytes 0 % Immature Grans (Abs) 0.0 x10E3/uL 0.0-0. 1 Comp. Metabolic Panel (14) - 02/27/17 14 :06 Glucose, Serum 173 mg/dL 65-99 BUN 12 mg/dL 6-24 Creatinine, Serum 0.79 mg/dL 0.57-1.00 eGFR If NonAfricn Am 85 mL/min/1.73 >59 eGFR If Africn Am 98 mL/min/1.73 >59 BUN/Creatinine Ratio 15 9-23 Sodium, Serum 136 mmol/L 134-144 Potassium, Serum 3.9 mmol/L 3.5-5.2 Chloride, Serum 97 mmol/L 96-106 Carbon Dioxide, Total 21 mmol/L 18-29 Calcium, Serum 9.7 mg/dL 8.7-10.2 Protein, Total, Serum 7.0 g/dL 6.0-8.5 Albumin, Serum 4.3 g/dL 3.5-5.5 Globulin, Total 2.7 g/dL 1.5-4.5 A/G Ratio 1.6 1.2-2.2 Bilirubin, Total 0.3 mg/dL 0.0-1.2 Alkaline Phosphatase, S 103 IU/L 39-117 AST (SGOT) 26 IU/L 0-40 ALT (SGPT) 33 IU/L 0-32 Hemoglobin A1c - 02/27/17 14:06 Hemoglobin A1c 7.5 % 4.8-5.6 Methicillin resistant Staphylococcus aur eus (MRSA) screening culture - 02/28/17 10:50 MRSA SCREEN RESULT MRSA ISOLATED NR Capillary blood glucose measurement by g lucometer (mass/volume) - 03/05/17 08:56 Capillary blood glucose measurement by glucometer (mas s/volume) 133 mg/dL 70-110 Sputum Gram stain - 04/29/17 15:46 GRAM STAIN SPUTUM AND MIXED BACTERIAL TIMOTHY NRG Bacterial sputum culture - 04/29/17 15:4 6 Bacterial sputum culture NORMAL [facility] Complete blood count (CBC) with [...] INFLUENZA A AND B ANTIGENS BY IA [facility] Comprehensive metabolic panel - 04/30/17 [...] protein measurement (mass/v olume) 3.45 mg/dL 0.00-0.50 CBC With Differential/Platelet - 7 10:30 WBC 8.9 x10E3/uL 3.4-10.8 RBC 4.65 x10E6/uL 3.77-5.28 Hemoglobin 12.6 g/dL 11.1-15.9 Hematocrit 37.0 % 34.0-46.6 MCV 80 fL 79-97 MCH 27.1 pg 26.6-33.0 MCHC 34.1 g/dL 31.5-35.7 RDW 14.3 % 12.3-15.4 Platelets 230 x10E3/uL 150-379 Neutrophils 66 % Not Estab. Lymphs 28 % Not Estab. Monocytes 5 % Not Estab. Eos 1 % Not Estab. Basos 0 % Not Estab. Neutrophils (Absolute) 5.8 x10E3/uL 1.4- 7.0 Lymphs (Absolute) 2.5 x10E3/uL 0.7-3.1 Monocytes(Absolute) 0.5 x10E3/uL 0.1-0.9 Eos (Absolute) 0.1 x10E3/uL 0.0-0.4 Baso (Absolute) 0.0 x10E3/uL 0.0-0.2 Immature Granulocytes 0 % Not Esta b. Immature Grans (Abs) 0.0 x10E3/uL 0.0-0. 1 Comp. Metabolic Panel (14) - 07/22/17 10 :30 Glucose, Serum 96 mg/dL 65-99 BUN 10 mg/dL 6-24 Creatinine, Serum 0.75 mg/dL 0.57-1.00 eGFR If NonAfricn Am 91 mL/min/1.73 >59 eGFR If Africn Am 105 mL/min/1.73 >5 9 BUN/Creatinine Ratio 13 9-23 Sodium, Serum 139 mmol/L 134-144 Potassium, Serum 4.0 mmol/L 3.5-5.2 Chloride, Serum 98 mmol/L 96-106 Carbon Dioxide, Total 22 mmol/L 18-29 Calcium, Serum 9.6 mg/dL 8.7-10.2 Protein, Total, Serum 7.3 g/dL 6.0-8.5 Albumin, Serum 4.2 g/dL 3.5-5.5 Globulin, Total 3.1 g/dL 1.5-4.5 A/G Ratio 1.4 1.2-2.2 Bilirubin, Total 0.3 mg/dL 0.0-1.2 Alkaline Phosphatase, S 103 IU/L 39-117 AST (SGOT) 18 IU/L 0-40 ALT (SGPT) 25 IU/L 0-32 Microalb/Creat Ratio, Rand Ur - 7 10:30 Creatinine, Urine 207.5 mg/dL Not Estab. Microalbumin, Urine 19.3 ug/mL Not Estab . Microalb/Creat Ratio 9.3 mg/g creat 0.0- 30.0 Hemoglobin A1c - 07/22/17 10:30 Hemoglobin A1c 6.4 % 4.8-5.6 A1C - 07/22/17 10:30 Hemoglobin A1c 6.4 [...] - 09/13/17 15:3 9 Bacterial throat culture NBS NRG Methicillin resistant Staphylococcus aur eus (MRSA) [...] 30 Blood type T Indirect antibody screen pa rin - 07/09/18 12:15 ABO+Rh group OP NRG [...] NRG Blood type T Indirect antibody screen pa rin - 07/15/18 06:50 ABO+Rh group OP NRG Transfusion band number [id number] NRG Blood group antibody screen NEGATIVE NR [...] mg/dL 70-110 Whole blood hemoglobin and hematocrit [facility] - 07/17/18 04:20 Venous blood hemoglobin measurement [...] mg/dL 70-110 Whole blood hemoglobin and hematocrit [facility] - 07/18/18 06:25 Venous blood hemoglobin measurement [...] - 10/29/18 15:4 5 Bacterial throat culture [facility] NR Complete urinalysis with reflex to cultu re [...] AND B ANTIGENS BY IA NRG Complete blood count (CBC) with automate [...] - 11/29/18 10:45 Bacterial blood culture NG NRG Bacterial blood culture - 11/29/18 10:56 Bacterial [...] 14:59 Bacteria identification in wound by culture [id number] NRG FREE TEXT EXTERNAL NO BETA [...] 14:3 9 Bacterial throat culture NBS NRG Complete blood count (CBC) with automate d white blood cell (WBC) differential - 01/05/20 23:00 Blood leukocytes automated count (number/volume) 10.5 10*3/uL 4.3-11.0 Blood erythrocytes automated count (number/volume) 4.97 10*6/uL 4.35-5.85 Venous blood hemoglobin measurement (mass/volume) 13.6 g/dL 11.5-16.0 Blood hematocrit (volume fraction) 41 % 35-52 Automated erythrocyte mean corpuscular volume 82 [ foz_us] 80-99 Automated erythrocyte mean corpuscular h emoglobin (mass per erythrocyte) 27 pg 25-34 Automated erythrocyte mean corpuscular h emoglobin concentration measurement (mass/volume) 33 g/dL 32-36 Automated erythrocyte distribution width ratio 14. 1 % 10.0- 14.5 Automated blood platelet count (count/volume) 219 10*3/uL 130-400 Automated blood platelet mean volume measurement 11.7 [foz_us] 7.4-10.4 Automated blood neutrophils/100 leukocytes 54 % 42-75 Automated blood lymphocytes/100 leukocytes 38 % 12-44 Blood monocytes/100 leukocytes 5 % 0-12 Automated blood eosinophils/100 leukocytes 3 % 0-10 Automated blood basophils/100 leukocytes 0 % 0-10 Blood neutrophils automated count (number/volume) 5.7 10*3 1.8-7.8 Blood lymphocytes automated count (number/volume) 4.0 10*3 1.0-4.0 Blood monocytes automated count (number/volume) 0. 6 10*3 0.0-1.0 Automated eosinophil count 0.3 10*3/uL 0 .0-0.3 Automated blood basophil count (count/volume) 0.0 10*3/uL 0.0-0.1 Comprehensive metabolic panel - 01/05/20 23:00 Serum or plasma sodium measurement (moles/volume) 139 mmol/L 135-145 Serum or plasma potassium measurement (moles/volume) 4.2 mmol/L 3.6-5.0 Serum or plasma chloride measurement (moles/volume) 104 mmol/L 98-107 Carbon dioxide 21 mmol/L 21-32 Serum or plasma anion gap determination (moles/volume) 14 mmol/L 5-14 Serum or plasma urea nitrogen measurement (mass/volume ) 11 mg/dL 7-18 Serum or plasma creatinine measurement (mass/volume) 0.91 mg/dL 0.60-1.30 Serum or plasma urea nitrogen/creatinine mass ratio 12 NRG Serum or plasma creatinine measurement w ith calculation of estimated glomerular filtration rate > NRG Serum or plasma glucose measurement (mass/volume) 109 mg/dL 70-105 Serum or plasma calcium measurement (mass/volume) 9.5 mg/dL 8.5-10.1 Serum or plasma total bilirubin measurement (mass/volu me) 0.5 mg/dL 0.1-1.0 Serum or plasma alkaline phosphatase tiana surement (enzymatic activity/volume) 103 U/L 40-136 Serum or plasma aspartate aminotransfera se measurement (enzymatic activity/volume) 36 U/L 5-34 Serum or plasma alanine aminotransferase measurement (enzymatic activity/volume) 40 U/L 0-55 Serum or plasma protein measurement (mass/volume) 7.8 g/dL 6.4-8.2 Serum or plasma albumin measurement (mass/volume) 4.2 g/dL 3.2-4.5 CALCIUM CORRECTED 9.3 mg/dL 8.5-10.1 PT panel in platelet poor plasma by coag ulation assay - 01/05/20 23:00 Prothrombin time (PT) in platelet poor plasma by coagu lation assay 12.4 s 12.2-14.7 INR in platelet poor plasma or blood by coagulation as say 0.9 0.8-1.4 Activated partial thromboplastin time (a PTT) in platelet poor plasma bycoagulation assay - 01/05/20 23:00 Activated partial thromboplastin time (a PTT) in platelet poor plasma bycoagulation assay 29 s 24-35 Magnesium - 01/05/20 23:00 Magnesium 1.7 mg/dL 1.6-2.4 Serum or plasma lithium measurement (mol es/volume) - 01/05/20 23:00 BNP PT < 10.0 <100.0 Myoglobin, serum - 01/05/20 23:00 Myoglobin, serum 35.5 ng/mL 10.0-92.0 Serum or plasma troponin i.cardiac measu rement (mass/volume) - 01/05/20 23:00 Serum or plasma troponin i.cardiac measurement (mass/v olume) < ng/mL <0.028 Encounters ACCT No. Visit Date/Time Discharge Status Pt. Type Provider Facility Loc./Unit Complaint [id number] 10/10/2016 10:05:00 Document Registration [id number] 07/23/2017 13:06:00 Document Registration [id number] 08/27/2016 08:35:00 Document Registration [id number] 10/31/2016 03:07:00 Document Registration [id number] 01/05/2020 22:44:00 020 00:06:00 DIS Emergency LAUREL SHEN MD [facility] ER CHEST PAIN,SOB [id number] 11/10/2019 14:05:00 15:09:00 DIS Emergency JANELLE ESPITIA APRN [facility] ER SORE THROAT;COUGH [id number] 09/28/2019 10:13:00 13:09:00 DIS Emergency JANELLE ESPITIA APRN [facility] ER ABD PAIN/KNOT NAUSEA [id number] 08/19/2019 10:38:00 23:59:59 CLS Outpatient NICKY THOMPSON MD [facility] RAD SCREENING [id number] 08/05/2019 16:13:00 18:28:00 DIS Emergency ARELY KOROMA DO L [facility] ER FACIAL PRESSURE,BODY AC HES [id number] 06/30/2019 07:55:00 12:15:00 DIS Out[facility] ADHESIVE CAP SULITIS [id number] 06/24/2019 12:18:00 12:40:00 DIS Outpatient KISHA BALDWIN MD [facility] PREOP LEFT KNEE ADHESIVE CAP SULTITIS [id number] 05/06/2019 13:44:00 15:44:00 DIS Emergency GHASSAN HARVEY [facility] ER POST OP COMPLICATION [id number] 01/06/2019 10:05:00 13:05:00 DIS Outpatient KISHA BALDWIN MD Via [facility] SDC LEFT HIP OSTEOARTHRITI S [id number] 01/04/2019 12:14:00 13:00:00 DIS Outpatient KISHA BALDWIN MD [facility] PREOP LEFT HIP OSTEOARTHRITI S [id number] 12/26/2018 18:02:00 20:59:00 DIS Emergency OLIVA STALEY [facility] ER SORE THROAT/COUGH/CHILL S [id number] 12/22/2018 09:54:00 019 13:15:00 DIS Outpatient KIMBLE STEPHANE LOU [facility] ENDO BLOOD IN STOOL/LUQ AND LLQ ABD PAIN [id number] 12/17/2018 09:28:00 019 10:06:00 DIS Outpatient STEPHANE KIMBLE DO [facility] PREOP COLONOSCOPY/EGD [id number] 11/29/2018 09:15:00 019 12:20:00 DIS Emergency CHRISTO VIDAL MD [facility] ER COUGH,COLD SYMPTOMS [id number] 10/29/2018 15:16:00 019 16:48:00 DIS Emergency JANELLE ESPITIA APRN [facility] ER COUGH,CHEST TIGHTNESS [id number] 07/15/2018 06:08:00 018 10:10:00 DIS Inpatient KISHA BALDWIN MD [facility] 4TH PRIMARY OSTEOARTHRITIS [id number] 07/09/2018 11:46:00 12:30:00 DIS Outpatient KISHA BALDWIN MD [facility] PREOP PRIMARY OSTEOARTHRITIS [id number] 06/15/2018 14:10:00 018 23:59:59 CLS Outpatient SLY HARRIS APRN [facility] RAD RUQ ABDOMINAL P AIN [id number] 05/06/2018 12:00:00 018 23:59:59 CLS Outpatient KISHA BALDWIN MD [facility] SDC LEFT KNEE MEDIAL AND L ATERAL MENISCUS TEAR [id number] 04/20/2018 10:43:00 018 14:35:00 DIS Outpatient VICTORIA CHÁVEZ MD [facility] ENDO ABNORMAL CT [id number] 04/13/2018 06:06:00 018 14:54:00 DIS Outpatient VICTORIA CHÁVEZ MD [facility] PREOP COLONOSCOPY [id number] 04/01/2018 11:13:00 018 13:31:00 DIS Emergency MURALI ORLANDO DO a [facility] ER L SIDE PAIN [id number] 12/05/2017 13:18:00 018 15:18:00 DIS Emergency JANELLE ESPITIA APRN [facility] ER CP,TIGHTENING IN CHEST [id number] 11/26/2017 07:41:00 018 12:15:00 DIS Outpatient KISHA BALDWIN MD [facility] SDC RIGHT KNEE CHONDROMALA RENARD [id number] 11/20/2017 11:13:00 018 11:30:00 DIS Outpatient KISHA BALDWIN MD [facility] PREOP RIGHT KNEE CHONDROMALA RENARD [id number] 11/11/2017 12:46:00 018 23:59:59 CLS Outpatient NICKY THOMPSON MD [facility] RAD BREAST PAIN LT [id number] 11/10/2017 09:15:00 23:59:59 CLS Preadmit NICKY THOMPSON MD, V ia [facility] RAD N64.4 BREAST PAIN LT [id number] 09/13/2017 15:03:00 017 17:36:00 DIS Emergency REBEKA, OLIVA PROGRAMMER ANALYST [facility] ER CHILLS,SORE THROAT,SOB [id number] 08/10/2017 11:29:00 017 12:54:00 DIS Emergency JANELLE ESPITIA APRN [facility] ER CP [id number] 05/26/2017 09:37:00 017 23:59:59 CLS Outpatient NICKY THOMPSON MD [facility] RAD SCREENING Z12.31 [id number] 05/08/2017 08:06:00 23:59:59 CLS Outpatient MAJOR GIPSON APRN [facility] RAD DYSPNEA,LEG AUTUMN N [id number] 05/07/2017 17:59:00 017 18:57:00 DIS Emergency JANELLE ESPITIA PRODUCT SPECIALIST [facility] ER PT FELL/LT ARM INJ [id number] 04/30/2017 14:21:00 017 15:53:00 DIS Emergency LAYOTN HERNANDEZ MD [facility] ER NAUSEA/FEVER [id number] 04/29/2017 15:19:00 017 23:59:59 CLS Outpatient MAJOR GIPSON PRODUCT SPECIALIST [facility] RAD SOB [id number] 03/05/2017 08:48:00 017 12:30:00 DIS [facility]ATELLA RIGHT KNEE [id number] 02/28/2017 10:26:00 017 10:57:00 DIS Outpatient KISHA BALDWIN MD [facility] PREOP RIGHT KNEE SCOPE [id number] 02/09/2017 08:27:00 017 10:43:00 DIS Emergency HERMELINDA CULLEN, LAUREL Velasco [facility] ER R KNEE TO FOOT PAIN [id number] 01/30/2017 20:20:00 017 21:57:00 DIS Emergency JANELLE ESPITIA PRODUCT SPECIALIST [facility] ER POSSIBLE BLOOD CLOT IN R LEG [id number] 11/28/2016 11:41:00 017 23:59:59 CLS Outpatient Nia RAI MD [facility] CARD COPD,CHEST PAIN,DM [id number] 11/27/2016 12:52:00 017 23:59:59 CLS Outpatient Nia RAI MD [facility] CARD COPD,CHEST PAIN,DM,HLP [id number] 11/22/2016 14:41:00 017 16:20:00 DIS Emergency RAQUEL ROLDAN [facility] ER YEAST INFECTION [id number] 11/04/2016 09:43:00 23:59:59 CLS Outpatient KYLAH CULLEN, PATRIC Saucedo [facility] RAD RIGHT LOWER QUAD PAIN [id number] 11/03/2016 09:43:00 11:33:00 DIS Emergency YOUNG CULLEN, CHRISTO Huston [facility] ER CHEST PAIN/SORE THROAT [id number] 10/16/2016 15:43:00 18:41:00 DIS Emergency LUNA LEGER MD [facility] ER ABD PAIN [id number] 09/19/2016 11:20:00 17:40:00 DIS Outpatient STEPHANE KIMBLE DO [facility] SDC DYSKNESIA [id number] 09/16/2016 05:48:00 14:05:00 DIS Outpatient STEPHANE KIMBLE DO [facility] PREOP DYSKNESIA [id number] 09/13/2016 04:41:00 08:35:00 DIS Emergency DAVID CULLEN, LAYTON Spencer [facility] ER SORE THROAT,CONSTIPATION,CHEST PAIN [id number] 09/03/2016 09:53:00 23:59:59 CLS Outpatient NICKY THOMPSON MD [facility] RAD RUQ PAIN [id number] 08/24/2016 15:39:00 17:34:00 DIS Emergency JANELLE ESPITIA APRN [facility] ER BACK PAIN [id number] 08/15/2016 10:42:00 12:18:00 DIS Emergency JANELLE ESPITIA APRN [facility] ER SOA [id number] 08/03/2016 13:42:00 15:35:00 DIS Emergency YOUNG CULLEN, CHRISTO Huston [facility] ER SORE THROAT/PAINFUL TON DUSTY/THROAT CLOSING [id number] 08/01/2016 12:59:00 23:59:59 CLS Outpatient TRINITY DO, ZAHIRA M [facility] RAD LUNG NODULE,SOB,MORBID OBESITY,ALLERGIC RHINITIS [id number] 07/18/2016 14:05:00 15:11:00 DIS Emergency JANELLE ESPITIA APRN [facility] ER CHEST PAIN [id number] 07/11/2016 07:47:00 23:59:59 CLS Outpatient EDI FAUSTIN DO [facility] RAD RUQ ABD PAIN [id number] 07/02/2016 12:50:00 16:44:00 DIS Emergency AFRICA CULLEN, LUNA Christianson [facility] ER LOWER BACK PAIN /VOMITING [id number] 06/28/2016 12:40:00 23:59:59 CLS Outpatient EDI FAUSTIN DO [facility] RAD LOWER ABD PAIN, HURTS TO PALPITATE WORSE ON LT SIDE [id number] 06/24/2016 08:15:00 23:59:59 CLS Preadmit ZAHIRA PETERSEN DO [facility] PULM SOB,DYSPNEA,MORBID OBESITY,ALLERGIC RHINITIS [id number] 04/09/2016 09:00:00 00:01:00 DIS Outpatient ZAHIRA PETERSEN DO [facility] PULM SOB,DYSPNEA,MORBID OBESITY,ALLERGIC RHINITIS [id number] 06/18/2016 15:18:00 16:35:00 DIS Emergency JANELLE ESPITIA APRN [facility] ER ABD PAIN,NAUSEA [id number] 06/09/2016 15:11:00 20:36:00 DIS Emergency DAVID CULLEN, LAYTON Spencer [facility] ER LIGHT HEADED/DI ZZY/BACK PAIN [id number] 05/24/2016 08:43:00 23:59:59 CLS Outpatient EDI FAUSTIN DO [facility] RAD SEVERE L BREAST PAIN [id number] 05/15/2016 11:59:00 08/17/2 016 13:58:00 DIS Emergency AFRICA CULLEN, LUNA Christianson [facility] ER BACK/LEFT BREAS T PAIN [id number] 05/08/2016 09:48:00 15:15:00 DIS Outpatient KISHA BALDWIN MD [facility] SDC LEFT KNEE CHONDROMALAS IA [id number] 05/01/2016 12:54:00 16:15:00 DIS Outpatient KISHA BALDWIN MD [facility] PREOP LEFT KNEE CHONDROMALAC IA [id number] 03/27/2016 10:23:00 13:05:00 DIS Emergency LUNA LEGER MD [facility] ER CHEST PAIN [id number] 02/28/2016 08:51:00 23:59:59 CLS Outpatient ZAHIRA PETERSEN DO [facility] LAB ALLERGIC RHINITIS, SOB DYSPNEA [id number] 02/21/2016 21:45:00 02:03:00 DIS Emergency RAQUEL ROLDAN [facility] ER BACK PAIN [id number] 02/14/2016 08:34:00 13:15:00 DIS Outpatient [facility] INDEX FINGER CYS T [id number] 02/06/2016 14:44:00 16:11:00 DIS Outpatient KISHA BALDWIN MD [facility] PREOP RIGHT INDEX FINGER CYS T [id number] 01/26/2016 14:10:00 17:00:00 DIS Emergency SIERRA GOMEZ MD [facility] ER CHEST PAIN/LEFT SIDE NU MBNESS [id number] 01/24/2016 15:04:00 23:59:59 CLS Outpatient MAJOR GIPSON APRN [facility] RT SOA, DYSPNEA [id number] 01/19/2016 15:25:00 18:25:00 DIS Emergency JANELLE ESPITIA APRN [facility] ER LEFT SIDED BODY PAIN [id number] 12/20/2015 10:03:00 15:35:00 DIS Outpatient KISHA BALDWIN MD [facility] SDC RIGHT FINGER CYST [id number] 12/19/2015 16:48:00 23:59:59 CLS Outpatient EDI FAUSTIN DO [facility] RAD LEFT RIB PAIN [id number] 12/16/2015 09:03:00 10:50:00 DIS Emergency CHELSI GARCIA MD [facility] ER CHEST WALL/BACK PAIN [id number] 12/15/2015 10:52:00 15:44:00 DIS Outpatient KISHA BALDWIN MD [facility] PREOP CYST RIGHT FINGER [id number] 11/29/2015 09:37:00 23:59:59 CLS Outpatient KISHA CARRILLO MD [facility] RAD DSYPHAGIA [id number] 11/18/2015 12:02:00 016 12:30:00 DIS Emergency CHELSI GARCIA MD [facility] ER SOA/COUGH/CHEST CONGEST ION [id number] 11/13/2015 10:57:00 23:59:59 CLS Outpatient KISHA CARRILLO MD [facility] RAD DYSPHAGIA OTHER, HOARSE NESS [id number] 11/09/2015 21:02:00 05:45:00 DIS Outpatient KISHA CARRILLO MD [facility] SLEEP CHRONIC OBSTRUCTIVE SLE EP APNEA [id number] 10/25/2015 06:55:00 11:38:00 DIS [facility] [id number] 10/20/2015 10:31:00 23:59:59 CLS Outpatient KISHA BALDWIN MD [facility] PREOP LEFT SHOULDER TORN ROT ATOR CUFF [id number] 10/14/2015 14:28:00 016 16:16:00 DIS Emergency DAVID CULLEN, LAYTON Spencer [facility] ER CHEST PAIN [id number] 09/24/2015 08:45:00 015 10:53:00 DIS Emergency SIERRA GOMEZ MD [facility] ER COUGH CONGESTION RIB PA IN [id number] 09/18/2015 10:53:00 23:59:59 CLS Outpatient EDI FAUSTIN DO [facility] RAD BRONCHITIS [id number] 09/14/2015 16:38:00 18:52:00 DIS Emergency JANELLE ESPITIA APRN [facility] ER CHEST WALL PAIN, SORE T HROAT, COUGH [id number] 08/22/2015 11:40:00 23:59:59 CLS Outpatient EDI FAUSTIN DO [facility] RAD PNEUMONIA [id number] 08/12/2015 14:32:00 16:26:00 DIS Emergency JANELLE ESPITIA APRN [facility] ER DIFF BREATHING/COUGH [id number] 08/08/2015 12:17:00 23:59:59 CLS Outpatient KISHA BALDWIN MD [facility] RAD RTC TEAR [id number] 07/27/2015 10:36:00 13:12:00 DIS Emergency JANELLE ESPITIA APRN [facility] ER CHEST PAIN [id number] 07/14/2015 11:29:00 23:59:59 CLS Outpatient EDI FAUSTIN DO [facility] RAD SCREENING [id number] 06/13/2015 13:07:00 14:53:00 DIS Emergency JANELLE ESPITIA APRN [facility] ER ABD PAIN [id number] 06/08/2015 20:58:00 015 21:58:00 DIS Emergency RAQUEL ROLDAN [facility] ER DROWSINESS,VAG ITCHING /IRRITATION [id number] 05/21/2015 12:06:00 015 13:10:00 DIS Emergency LUNA LEGER MD [facility] ER ALLERGIC REACTI ON [id number] 04/16/2015 21:00:00 09:50:00 DIS Inpatient ANDERS CARRERO DO [facility] SURGICAL UTI [id number] 04/09/2015 13:44:00 015 16:42:00 DIS Emergency RAQUEL ROLDAN [facility] ER FEVER [id number] 05/01/2018 13:39:00 Document Registration [id number] 03/01/2017 08:35:00 Document Registration [id number] 10/30/2016 08:40:00 Document Registration [id number] 10/07/2016 05:05:00 Document Registration [id number] 03/06/2020 16:00:00 ACT Outpatient NICKY THOMPSON [facility] [id number] 07/22/2017 09:40:00 Document Registration
== END 2020-03-09 12:51 | disposition home or self-care (01) ==
LOC: EDUNIT# 11:24 → ER 11:25
DX: N61.1 Abscess of the breast and nipple (principal); B35.4 Tinea corporis; E11.9 Type 2 diabetes mellitus without complications; J44.9 Chronic obstructive pulmonary disease, unspecified; E66.9 Obesity, unspecified; F41.9 Anxiety disorder, unspecified; F31.9 Bipolar disorder, unspecified; K21.9 Gastro-esophageal reflux disease without esophagitis; Z88.8 Allergy status to other drugs, medicaments and biological substances; Z96.652 Presence of left artificial knee joint; Z91.041 Radiographic dye allergy status; Z88.0 Allergy status to penicillin; Z88.1 Allergy status to other antibiotic agents; Z79.51 Long term (current) use of inhaled steroids; Z79.52 Long term (current) use of systemic steroids; Z68.26 Body mass index [BMI] 26.0-26.9, adult; Z79.84 Long term (current) use of oral hypoglycemic drugs; Z87.891 Personal history of nicotine dependence
CPT/HCPCS: 99282

== ENCOUNTER 2020-03-27 17:54 | Emergency (ER) | payer MEDICARE, MEDICAID ==
[~2020-03-27] VITALS: Ht 175 cm; Wt 126.0 kg
[~2020-03-27 17:54] MED LIST changes: +NSTR15C TP; +SULF1TAB35 PO
[2020-03-27] MEDS ORDERED: fentaNYL INJECTION 100 MCG/2 ML AMP IVP STA (19:10)
[2020-03-27] MEDS ORDERED: NS IV 1000 ML 1,000 ML IV ONE (19:10)
--- NOTE | 2020-03-27 19:12 | ED Abdominal Pain ---
General Chief Complaint: Abdominal/GI Problems Stated Complaint: R SIDE ABD PAIN Nursing Triage Note: PT PRESENTS WITH RLQ PAIN, GUARDING NOTED TO AREA. STATES PT HAD DECREASED APPETITE THIS AM AND PAIN SUDDENLY BEGAN AFTER DRINKING MILK THIS AM. NO URINARY SX. NORMAL BMs. Sepsis Screen: No Definite Risk Source of Information: Patient Exam Limitations: No Limitations (RADHA VERAS,) History of Present Illness Date Seen by Provider: Mar 27, 2020 Time Seen by Provider: 18:50 Initial Comments Ms. Hannah is here to the ER regarding abdominal pain. She localizes it to the RLQ and has been increasing all day. It started near her belly button and radi ating to her RLQ. She describes her pain as pinching, stabbing, and burning and rates the pain 10/10. She admits to nausea without vomiting and has decreased appetite. She denies any diarrhea, constipation, or blood in stools. She denies dysuria, hematuria, increased frequency or urgency. Nothing improves her pain and everything worsens it. She also admits to some chest pain and shortness of breath but states these are normal for her. Timing/Duration: 12 Hours Location: RLQ, Periumbilical Radiation: No Radiation Modifying Factors: Worsens With Lying down, Worsens With Movement Associated Symptoms: Nausea/Vomiting (RADHA VERAS,) Location: RLQ Radiation: No Radiation Modifying Factors: Worsens With Eating; Improves With Resting Associated Symptoms: No Back Pain, No Fever/Chills; Nausea/Vomiting; No Weakness (LUNA LEGER MD) Allergies and Home Medications Allergies Coded Allergies: nickel (Verified Allergy, Intermediate, RASH, 01/06/19) doxycycline (Verified Allergy, Mild, HIVES, 01/06/19) Iodinated Contrast Media (Verified Allergy, Unknown, 01/06/19) cobalt (Verified Allergy, Unknown, Hives, 06/24/19) penicillin (Verified Allergy, Unknown, HAS RECEIVED ROCEPHIN, 06/30/19) rash Uncoded Allergies: hexachloride (Allergy, Unknown, Hives, 06/24/19) Home Medications Albuterol Sulfate 1 Puff Puff, 2 PUFF IH Q4H PRN for WHEEZING, (Reported) 1 PUFF = 90 MCG Baloxavir Marboxil 40 Mg Tablet, 40 MG PO DAILY Prescribed by: JANELLE ESPITIA on 11/10/19 1428 Fluoxetine HCl 40 Mg Capsule, 40 MG PO DAILY, (Reported) Fluticasone Propionate 9.9 Ml Bath.susp, 1 SPRAY NS BID, (Reported) Fluticasone/Vilanterol 1 Each Blst.w.dev, 1 EACH IH DAILY, (Reported) Hydrocodone Bit/Acetaminophen 1 Each Tablet, 1 TAB PO Q4H PRN for PAIN-MODERATE Prescribed by: OLIVA HOUSE on 06/30/19 1055 Levofloxacin 500 Mg Tablet, 500 MG PO DAILY Prescribed by: ARELY KOROMA on 08/05/19 1807 Metformin HCl 1,000 Mg Tablet, 1,000 MG PO BID, (Reported) Nystatin/Triamcinolone 15 Gm Cr, 1 TUBE TP TID apply thin layer to affected area three times daily Prescribed by: OLIVA STALEY on 03/09/20 1247 Pantoprazole Sodium 40 Mg Tablet.dr, 40 MG PO DAILY Prescribed by: STEPHANE KIMBLE on 12/22/18 1218 Prednisone 20 Mg Tab, 40 MG PO DAILY Prescribed by: ARELY KOROMA on 08/05/19 1807 Prednisone 20 Mg Tab, 40 MG PO DAILY Prescribed by: JANELLE ESPITIA on 11/10/19 1504 Sulfamethoxazole/Trimethoprim 1 Each Tablet, 1 EACH PO BID Prescribed by: OLIVA STALEY on 03/09/20 1247 Patient Home Medication List Home Medication List Reviewed: Yes (RADHA VERAS,) Home Medication List Reviewed: Yes (LUNA LEGER MD) Review of Systems Review of Systems Constitutional: no symptoms reported EENTM: No Symptoms Reported Respiratory: No Symptoms Reported Cardiovascular: No Symptoms Reported Gastrointestinal: Abdominal Pain, Nausea, Poor Appetite Genitourinary: No Symptoms Reported Musculoskeletal: no symptoms reported Skin: no symptoms reported Psychiatric/Neurological: No Symptoms Reported Endocrine: No Symptoms Reported Hematologic/Lymphatic: No Symptoms Reported (RADHA VERAS,) All Other Systems Reviewed Negative Unless Noted: Yes (LUNA LEGER MD) Past Xvmeewi-Lwjaqz-Vchcll Hx Past Med/Social Hx: Reviewed Nursing Past Med/Soc Hx (LUNA LEGER MD) Patient Social History Alcohol Use: Denies Use Recreational Drug Use: No Smoking Status: Former Smoker Type Used: Cigarettes Former Smoker, Quit: May 01, 2008 2nd Hand Smoke Exposure: No Recent Foreign Travel: No Contact w/Someone Who Travel: No Recent Infectious Disease Expo: No Recent Hopitalizations: No Physical Abuse: No Sexual Abuse: No Mistreated: No Fear: No (RADHA VERAS,) Immunizations Up To Date Tetanus Booster (TDap): Unknown PED Vaccines UTD: No Date of Pneumonia Vaccine: Mar 13, 2018 Date of Influenza Vaccine: Jul 06, 2018 (RADHA VERAS,) Seasonal Allergies Seasonal Allergies: Yes (RADHA VERAS,) Past Medical History Surgeries: Yes (bilat CTR, L KNEE x12, L shoulder, L TKR, back sx) Abdominal, Gallbladder, Hysterectomy, Oophorectomy, Orthopedic Respiratory: Yes (CPAP) Asthma, Sleep Apnea, COPD Currently Using CPAP: Yes Cardiac: Yes High Cholesterol Neurological: No Reproductive Disorders: No 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 [employer] History: Hysterectomy Sexually Transmitted Disease: No HIV/AIDS: No Genitourinary: Yes Kidney Infection, Bladder Infection, UTI-Chronic Gastrointestinal: Yes (INFLAMATION IN COLON, VENTRAL HERNIA) Gastroesophageal Reflux, Chronic Constipation, Chronic Diarrhea, Irritable Bowel Musculoskeletal: Yes (RESTLESS LEG SYNDROME) Arthritis, Fibromyalgia, Chronic Back Pain Endocrine: Yes (OBESITY) Diabetes, Non-Insulin dep HEENT: Yes (GLASSES) Loss of Vision: Bilateral Hearing Impairment: Denies Cancer: No Psychosocial: Yes Anxiety, Bipolar Integumentary: No Blood Disorders: No Adverse Reaction/Blood Tranf: No (N/A) (RADHA VERAS,) Family Medical History Reviewed Nursing Family Hx (LUNA LEGER MD) Arthritis 19 MOTHER, Onset:Unknown Asthma 19 FATHER, Onset:Unknown Cataracts 19 MOTHER, Onset:Unknown Diabetes mellitus 19 MOTHER, Onset:Unknown FH: COPD (chronic obstructive pulmonary disease) 19 FATHER, Onset:Unknown Hypercholesterolemia 19 MOTHER MS (multiple sclerosis) G8 SISTER, Onset:Unknown Physical Exam Vital Signs Vital Signs - First Documented 03/27/20 18:30 Temp 36.8 Pulse 79 Resp 18 B/P (MAP) 139/104 (116) O2 Delivery Room Air (LUNA LEGER MD) Vital Signs Capillary Refill : Less Than 3 Seconds (RADHA VERAS,) Height/Weight/BMI Height: 5'9.00" Weight: 288lbs. 0.0oz. 130.893554kz; 41.00 BMI Method:Stated General Appearance: WD/WN, moderate distress HEENT: PERRL/EOMI Respiratory: lungs clear, normal breath sounds Cardiovascular: regular rate, rhythm, no murmur Peripheral Pulses: 2+ Radial Pulses (R), 2+ Radial Pulses (L) Gastrointestinal: normal bowel sounds, guarding, tenderness, other (positive Rovsing's ) Skin: normal color, warm/dry (RADHA VERAS,) General Appearance: WD/WN, mild distress, obese Respiratory: lungs clear, normal breath sounds Cardiovascular: regular rate, rhythm Gastrointestinal: soft; No rebound; tenderness Extremities: non-tender, normal inspection Back: normal inspection, no CVA tenderness, no vertebral tenderness Neurologic/Psychiatric: alert, oriented x 3 Skin: normal color, warm/dry (LUNA LEGER MD) Progress/Results/Core Measures Results/Orders Lab Results Laboratory Tests Test 03/27/20 15:22 03/27/20 18:20 Range/Units Urine Color YELLOW Urine Clarity SL CLOUDY Urine pH 5.0 5-9 Urine Specific [place] >=1.030 1.016-1.022 Urine Protein NEGATIVE NEGATIVE Urine Glucose (UA) NEGATIVE NEGATIVE Urine Ketones NEGATIVE NEGATIVE Urine Nitrite NEGATIVE NEGATIVE Urine Bilirubin NEGATIVE NEGATIVE Urine Urobilinogen 0.2 < = 1.0 MG/DL Urine Leukocyte Esterase NEGATIVE NEGATIVE Urine RBC (Auto) NEGATIVE NEGATIVE Urine RBC NONE /HPF Urine WBC 0-2 /HPF Urine Squamous Epithelial Cells 10-25 H /HPF Urine Crystals NONE /LPF Urine Bacteria MODERATE H /HPF Urine Casts NONE /LPF Urine Mucus MODERATE H /LPF Urine Culture Indicated YES White Blood Count 9.7 4.3-11.0 10^3/uL Red Blood Count 4.64 4.35-5.85 10^6/uL Hemoglobin 12.6 11.5-16.0 G/DL Hematocrit 38 35-52 % Mean Corpuscular Volume 83 80-99 FL Mean Corpuscular Hemoglobin 27 25-34 PG Mean Corpuscular Hemoglobin Concent 33 32-36 G/DL Red Cell Distribution Width 13.9 10.0-14.5 % Platelet Count 223 130-400 10^3/uL Mean Platelet Volume 12.4 H 7.4-10.4 FL Neutrophils (%) (Auto) 59 42-75 % Lymphocytes (%) (Auto) 33 12-44 % Monocytes (%) (Auto) 6 0-12 % Eosinophils (%) (Auto) 2 0-10 % Basophils (%) (Auto) 0 0-10 % Neutrophils # (Auto) 5.7 1.8-7.8 X 10^3 Lymphocytes # (Auto) 3.2 1.0-4.0 X 10^3 Monocytes # (Auto) 0.6 0.0-1.0 X 10^3 Eosinophils # (Auto) 0.2 0.0-0.3 10^3/uL Basophils # (Auto) 0.0 0.0-0.1 10^3/uL Sodium Level 138 135-145 MMOL/L Potassium Level 3.8 3.6-5.0 MMOL/L Chloride Level 103 98-107 MMOL/L Carbon Dioxide Level 23 21-32 MMOL/L Anion Gap 12 5-14 MMOL/L Blood Urea Nitrogen 11 7-18 MG/DL Creatinine 0.86 0.60-1.30 MG/DL Estimat Glomerular Filtration Rate > 60 BUN/Creatinine Ratio 13 Glucose Level 161 H 70-105 MG/DL Calcium Level 9.6 8.5-10.1 MG/DL Corrected Calcium 9.6 8.5-10.1 MG/DL Total Bilirubin 0.3 0.1-1.0 MG/DL Aspartate Amino Transf (AST/SGOT) 33 5-34 U/L Alanine Aminotransferase (ALT/SGPT) 37 0-55 U/L Alkaline Phosphatase 98 40-136 U/L C-Reactive Protein High Sensitivity 0.88 H 0.00-0.50 MG/DL Total Protein 7.4 6.4-8.2 GM/DL Albumin 4.0 3.2-4.5 GM/DL (LUNA LEGER MD) My Orders Orders - LUNA LEGER MD Cbc With Automated Diff (03/27/20 19:10) Comprehensive Metabolic Panel (03/27/20 19:10) Hs C Reactive Protein (03/27/20 19:10) Ua Culture If Indicated (03/27/20 19:10) Ct Abdomen/Pelvis Wo (03/27/20 19:10) Ed Iv/Invasive Line Start (03/27/20 19:10) Ed Iv/Invasive Line Start (03/27/20 19:10) Ns Iv 1000 Ml (Sodium Chloride 0.9%) (03/27/20 19:10) Ondansetron Injection (Zofran Injectio (03/27/20 19:15) Fentanyl Injection (Sublimaze Injection (03/27/20 19:10) Urine Culture (03/27/20 15:22) (LUNA LEGER MD) Medications Given in ED Current Medications Medications Dose Ordered Sig/Veronika Route Start Time Stop Time Status Last Admin Dose Admin Ondansetron HCl 4 mg ONCE ONCE IVP 03/27/20 19:15 03/27/20 19:16 DC 03/27/20 19:44 4 MG Sodium Chloride 1,000 ml @ 0 mls/hr Q0M ONCE IV 03/27/20 19:10 03/27/20 19:12 DC 03/27/20 19:44 999 MLS/HR (LUNA LEGER MD) Vital Signs/I&O 03/27/20 18:30 Temp 36.8 Pulse 79 Resp 18 B/P (MAP) 139/104 (116) O2 Delivery Room Air (LUNA LEGER MD) Blood Pressure Mean: 116 Progress Progress Note : Progress Note I have seen and evaluated the patient and agree with above except as indicated. I have directed the plan of care. Patient is here with right lower quadrant abdominal pain since this morning. It is associated with some nausea without vomiting. She is worried that she has appendicitis. Denies dysuria. Reports that she still has her appendix. Did mention some chest discomfort and shortness of breath but states those are chronic and actually not different than typical and not really a concern for her. Her main concern is the right lower quadrant abdominal pain. She states it's worse with touching. Better with rest. Plan for IV, labs, UA and CT abdomen and pelvis without contrast due to allergy. Normal saline 1 L bolus as well as Zofran 4 mg IV ordered. Fentanyl 50 g IV ordered. Monitor patient. 2015: Pain is better. CT is normal and labs do not show any significant abnormality. UA appears to be contaminated so we will await cultures. All of this was discussed with the patient who is comforted. Discharged home with return precautions. Patient verbalize understanding instructions and agreement with plan. Instructed return for increasing symptoms or worsening of her pain. (LUNA LEGER MD) Diagnostic Imaging Diagonstic Imaging: CT Plain Films/CT/US/NM/MRI: abdomen, pelvis Comments [facility], [place] NAME: LENNY HANNAH [facility] REC#: [id number] PT STATUS: REG ER : 1960 PHYSICIAN: LUNA LEGER MD ADMIT DATE: 03/27/20/ER Draft Date of Exam:03/27/20 CT ABDOMEN/PELVIS WO EXAMINATION: CT Abdomen Pelvis without contrast. TECHNIQUE: Multiple contiguous axial images were obtained through the abdomen and pelvis without the use of intravenous contrast. All CT scans use one or more of the following dose optimizing techniques: automated exposure control, MA and/or KvP adjustment based on a patient size and exam type, or iterative reconstruction. HISTORY: Right lower quadrant pain COMPARISON: 09/28/2019 FINDINGS: Limited views of the lower thorax are unremarkable. The liver is normal without focal lesion. There is no biliary ductal dilation. Gallbladder is normal. Pancreas is normal. Spleen is normal. Adrenal glands are normal. The kidneys are normal. There is no hydronephrosis. Urinary bladder is normal. Visualized bowel is normal in caliber without obstruction or inflammation. The appendix is normal. Scarring in the anterior abdominal wall consistent with prior surgery. Uterus is not seen. No free fluid or air. No abdominal or pelvic lymphadenopathy. Aorta is normal in caliber without aneurysm. There are no suspicious osseus lesions. There is instrumented fusion of L4-L5. IMPRESSION: 1. No acute abnormality in the abdomen or pelvis. Dictated on workstation # [id number] Dict: 03/27/201930 Trans: 03/27/201944 [facility] [id number] Interpreted by: MIGUEL NICHOLSON MD Electronically signed by: (LUNA LEGER MD) Departure Impression Primary Impression: Right lower quadrant abdominal pain Disposition: 01 HOME, SELF-CARE Condition: Improved Departure-Patient Inst. Decision time for Depature: 20:16 (LUNA LEGER MD) Referrals: NICKY THOMPSON MD (PCP/Family) Primary Care Physician Patient Instructions: Acute Abdomen (Belly Pain), Adult (DC) Add. Discharge Instructions: All discharge instructions reviewed with patient and/or family. Voiced understanding. Clear liquid diet for the next 12-24 hours and then advance as tolerated. Continue home meds as previously prescribed. Return for recheck within 24 hours for any worsening or persistence of pain. Return for fever, vomiting, weakness, breathing problems or other concerns as needed. Follow-up with your Dr. in 2-3 days for recheck and further evaluation as well. You may take Tylenol/acetaminophen 1000 mg every 6-8 hours as needed for pain. You may take ibuprofen 600 mg every 8 hours as needed for pain. Copy Copies To 1: NICKY THOMPSON MD-RADHA GHOTRA, Mar 27, 2020 19:12 LUNA LEGER MD Mar 27, 2020 20:17
[2020-03-27] MEDS ORDERED: ONDANSETRON 4 MG/2 ML (SDV) Z0FRAN IVP ONE (19:15)
[2020-03-27 19:18] LABS: BILIRUBIN,URINE NEGATIVE (NEGATIVE); COLOR,URINE YELLOW; GLUCOSE, URINE (UA) NEGATIVE (NEGATIVE); KETONES,URINE NEGATIVE (NEGATIVE); LEUKOCYTE ESTERASE ,URINE NEGATIVE (NEGATIVE); NITRITE,URINE NEGATIVE (NEGATIVE); PROTEIN,URINE NEGATIVE (NEGATIVE)
[2020-03-27 19:20] LABS: BASOPHILS % (AUTO) 0 % (0-10); EOSINOPHILS # (AUTO) 0.2 10^3/uL (0.0-0.3); EOSINOPHILS % (AUTO) 2 % (0-10); HEMATOCRIT 38 % (35-52); HEMOGLOBIN 12.6 G/DL (11.5-16.0); LYMPHOCYTES # (AUTO) 3.2 X 10^3 (1.0-4.0); LYMPHOCYTES % (AUTO) 33 % (12-44); MEAN CORPUSCULAR HEMOGLOBIN 27 PG (25-34); MEAN CORPUSCULAR HGB CONC 33 G/DL (32-36); MEAN CORPUSCULAR VOLUME 83 FL (80-99); MEAN PLATELET VOLUME 12.4 FL (7.4-10.4); MONOCYTES # (AUTO) 0.6 X 10^3 (0.0-1.0); MONOCYTES % (AUTO) 6 % (0-12); NEUTROPHILS # (AUTO) 5.7 X 10^3 (1.8-7.8); NEUTROPHILS % (AUTO) 59 % (42-75); PLATELET COUNT 223 10^3/uL (130-400); RED CELL DISTRIBUTION WIDTH 13.9 % (10.0-14.5); WHITE BLOOD COUNT 9.7 10^3/uL (4.3-11.0)
[2020-03-27 19:22] LABS: CHLORIDE 103 MMOL/L (98-107); POTASSIUM 3.8 MMOL/L (3.6-5.0); SODIUM 138 MMOL/L (135-145)
[2020-03-27 19:23] LABS: CLARITY,URINE SL CLOUDY
[2020-03-27 19:23] LABS: CALCIUM 9.6 MG/DL (8.5-10.1)
[2020-03-27 19:24] LABS: GLUCOSE 161 MG/DL (70-105); TOTAL PROTEIN 7.4 GM/DL (6.4-8.2)
[2020-03-27 19:24] LABS: BACTERIA,URINE MODERATE /HPF; WBC,URINE 0-2 /HPF
[2020-03-27 19:25] LABS: CARBON DIOXIDE 23 MMOL/L (21-32)
[2020-03-27 19:26] LABS: BILIRUBIN,TOTAL 0.3 MG/DL (0.1-1.0)
[2020-03-27 19:27] LABS: ALKALINE PHOSPHATASE 98 U/L (40-136)
[2020-03-27 19:28] LABS: CREATININE SERUM 0.86 MG/DL (0.60-1.30); GFR ESTIMATED > 60
[2020-03-27 19:29] LABS: BUN/CREATININE RATIO 13
[2020-03-27 19:31] LABS: ALANINE AMINOTRANSFERASE 37 U/L (0-55)
--- NOTE | 2020-03-27 19:47 | Diagnostic Imaging Report ---
EXAMINATION: CT Abdomen Pelvis without contrast. TECHNIQUE: Multiple contiguous axial images were obtained through the abdomen and pelvis without the use of intravenous contrast. All CT scans use one or more of the following dose optimizing techniques: automated exposure control, MA and/or KvP adjustment based on a patient size and exam type, or iterative reconstruction. HISTORY: Right lower quadrant pain COMPARISON: 09/28/2019 FINDINGS: Limited views of the lower thorax are unremarkable. The liver is normal without focal lesion. There is no biliary ductal dilation. Gallbladder is normal. Pancreas is normal. Spleen is normal. Adrenal glands are normal. The kidneys are normal. There is no hydronephrosis. Urinary bladder is normal. Visualized bowel is normal in caliber without obstruction or inflammation. The appendix is normal. Scarring in the anterior abdominal wall consistent with prior surgery. Uterus is not seen. No free fluid or air. No abdominal or pelvic lymphadenopathy. Aorta is normal in caliber without aneurysm. There are no suspicious osseus lesions. There is instrumented fusion of L4-L5. IMPRESSION: 1. No acute abnormality in the abdomen or pelvis. Dictated by: Dictated on workstation # [id number]
[2020-03-27 20:26] VITALS: BP 123/90
--- OUTSIDE RECORDS SUMMARY | 2020-03-27 20:53 | XMS REPORT | Continuity of Care Document ---
Demographics Preferred Language Unknown Marital Status Unknown Protestant Affiliation Unknown Race Unknown Ethnic Group Unknown Author Organization Unknown Address Unknown Phone Unavailable Allergies Active Description Code Type Severity Reaction Onset Reported/Identified Relationship to Patient Clinical Status Yes IV DYE IV DYE Unknown N/A 04/09/2015 Yes No Known Drug Allergies [id number] Drug Allergy Unknown N/A 04/09/2015 Yes penicillin [id number] Drug Allerg y Unknown N/A 04/09/2015 Yes Iodinated Contrast Media - IV Dye F001 [id number] Drug Allergy Unknown N/A 016 Yes Iodinated Contrast Media - Oral and [id number] Drug Allergy Unknown N/A 02/28/2017 Yes ZOFRAN ZOFRAN Unknown N/A 12/05/2017 Yes ondansetron [id number] Drug Aller gy Mild NAUSEA 04/30/2018 Yes nickel [id number] Drug Allergy Moderate RASH 01/06/2019 Yes doxycycline [id number] Drug Aller gy Mild HIVES 01/06/2019 Yes Iodinated Contrast Media [id number] Drug Allergy Unknown N/A 01/06/2019 Yes Iodinated Contrast- Oral and IV Dye [id number] Drug Allergy Unknown N/A 01/06/2019 Yes cobalt [id number] Drug Allergy Unknown Hives 06/24/2019 Yes hexachloride hexachloride Unknown Hives 06/24/2019 Yes penicillin [id number] Drug Allerg y Unknown HAS RECEIVED RO 06/30/2019 Medications There is no data. Problems Date Dx Coded Attending Type Code Diagnosis Diagnosed By 04/09/2015 RAQUEL ROLDAN Ot 250.00 DIAB MRIZA WO COMPL, TYPE II OR UNSPEC TY [...] 08/12/2015 JANELLE ESPITIA APRN Ot Z79.899 OTHER PIPE FOREMAN (CURRENT) DRUG THERAPY 08/14/2015 GELLENDER DO EDI A Ot Z12.31 09/14/2015 JANELLE ESPITIA APRN Ot F17.211 NICOTINE DEPENDENCE, CIGARETTES, IN [place] 09/14/2015 JANELLE ESPITIA APRN Ot J40 BRONCHITIS, NOT SPECIFIED ACUTE OR CH 09/18/2015 GELLENDER DO EDI A Ot Z12.31 09/18/2015 NICOLASA CULLEN, KISHA Justice Ot M75.112 09/18/2015 GELLENDER EDI LOU Ot J18.9 09/18/2015 JANELLE ESPITIA BONUS CLERK Ot F17.211 09/18/2015 JANELLE ESPITIA BONUS CLERK Ot J40 09/19/2015 RAMIN LOU EDI Christianson Ot J18.9 09/20/2015 RAMIN LOU EDI Christianson Ot J18.9 09/24/2015 SIERRA GOMEZ MD Ot M79 .1 MYALGIA 09/24/2015 SIERRA GOMEZ MD Ot R05 COUGH 09/24/2015 SIERRA GOMEZ MD Ot R07.81 PLEURODYNIA 10/05/2015 JANELLE ESPITIA BONUS CLERK Ot F17.211 10/05/2015 JANELLE ESPITIA BONUS CLERK Ot J40 10/11/2015 JANELLE ESPITIA BONUS CLERK Ot F17.211 10/11/2015 JANELLE ESPITIA BONUS CLERK Ot J40 10/13/2015 ZURIBJPATELEDI Meghan Ot J40 [...] CULLEN, KISHA Justice Ot Z01.818 11/13/2015 NICOLASA CLULEN, KISHA Justice Ot Z11.2 11/18/2015 RADHA CULLEN, [...] DO Ot Z12.31 12/19/2015 NICOLASA CULLEN, KISHA Justice Ot M75.112 12/19/2015 EDI FAUSTIN [...] 02/14/2016 KISHA BALDWIN MD Ot Z79.899 OTHER SNF (CURRENT) DRUG THERAPY 02/14/2016 MAJOR GIPSON APRN Ot J30.9 ALLERGIC RHINITIS, UNSPECIFIED 02/14/2016 MAJOR GIPSON APRN Ot R06.02 SHORTNESS OF BREATH 02/15/2016 KISHA BALDWIN MD Ot 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 02 SHORTNESS OF BREATH 05/01/2016 KIHSA BALDWIN MD Ot M94.262 CHONDROMALACIA, LEFT KNEE [...] 05/08/2016 KISHA BALDWIN MD Ot Z79.899 OTHER PIPE FOREMAN (CURRENT) DRUG THERAPY 05/08/2016 KISHA BALDWIN MD [...] 05/09/2016 KISHA BALDWIN MD Ot Z79.899 OTHER SNF (CURRENT) DRUG THERAPY 05/09/2016 KISHA BALDWIN MD [...] 05/10/2016 KISHA BALDWIN MD Ot Z79.899 OTHER PIPE FOREMAN (CURRENT) DRUG THERAPY 05/10/2016 KISHA BALDWIN MD [...] 06/09/2016 LAYTON HERNANDEZ MD Ot Z79.899 OTHER SNF (CURRENT) DRUG THERAPY 06/11/2016 LAYTON HERNANDEZ MD Ot E11.9 TYPE 2 DIABETES MELLITUS WITHOUT COMPLIC 06/11/2016 LAYTON HERNANDEZ MD Ot I10 ESSENTIAL (PRIMARY) HYPERTENSION 06/11/2016 LAYTON HERNANDEZ MD Ot N39.0 URINARY TRACT INFECTION, SITE NOT SPECIF 06/11/2016 LAYTON HERNANDEZ MD Ot R05 COUGH 06/11/2016 DAVID CULLEN, LAYTON Spencer Ot R42 DIZZINESS AND GIDDINESS 06/11/2016 DAVID CULLEN, LAYTON Spencer Ot Z79.899 OTHER PIPE FOREMAN (CURRENT) DRUG THERAPY 06/13/2016 EDI FAUSTIN DO Ot Z12.31 ENCNTR SCREEN MAMMOGRAM FOR MALIGNANT NE 06/13/2016 NICOLASA CULLEN, KISAH Justice Ot M75.112 INCOMPLETE ROTATR-CUFF TEAR/RUPTR OF [...] DIABETES MELLITUS WITHOUT COMPLIC 06/18/2016 JANELLE ESPITIA BONUS CLERK Ot I10 ESSENTIAL (PRIMARY) HYPERTENSION 06/18/2016 JANELLE ESPITIA BONUS CLERK Ot J44 .9 CHRONIC OBSTRUCTIVE PULMONARY DISEASE, U 06/18/2016 JANELLE ESPITIA BONUS CLERK Ot R10.31 RIGHT LOWER QUADRANT PAIN 06/18/2016 JANELLE ESPITIA BONUS CLERK Ot R11 .0 NAUSEA 06/18/2016 JANELLE ESPITIA APRN Ot Z79.899 OTHER SNF (CURRENT) DRUG THERAPY 06/19/2016 JANELLE ESPITIA APRN Ot E11 .9 TYPE 2 DIABETES MELLITUS WITHOUT COMPLIC 06/19/2016 JANELLE ESPITIA APRN Ot I10 ESSENTIAL (PRIMARY) HYPERTENSION 06/19/2016 JANELLE ESPITIA APRN Ot J44 .9 CHRONIC OBSTRUCTIVE PULMONARY DISEASE, U 06/19/2016 JANELLE ESPITIA APRN Ot R10.31 RIGHT LOWER QUADRANT PAIN 06/19/2016 JANELLE ESPITIA APRN Ot R11 .0 NAUSEA 06/19/2016 JANELLE ESPITIA APRN Ot Z79.899 OTHER PIPE FOREMAN (CURRENT) DRUG THERAPY 06/20/2016 JANELLE ESPITIA APRN Ot E11 .9 TYPE 2 DIABETES MELLITUS WITHOUT COMPLIC 06/20/2016 JANELLE ESPITIA BONUS CLERK Ot I10 ESSENTIAL (PRIMARY) HYPERTENSION 06/20/2016 JANELLE ESPITIA APRN Ot J44 .9 CHRONIC OBSTRUCTIVE PULMONARY DISEASE, U 06/20/2016 JANELLE ESPITIA APRN Ot R10.31 RIGHT LOWER QUADRANT PAIN 06/20/2016 JANELLE ESPITIA APRN Ot R11 .0 NAUSEA 06/20/2016 JANELLE ESPITIA BONUS CLERK Ot Z79.899 OTHER SNF (CURRENT) DRUG THERAPY 06/23/2016 ZAHIRA PETERSEN DO [...] 07/02/2016 LUNA LEGER MD, Ot Z79.899 OTHER SNF (CURRENT) DRUG THERAPY 07/03/2016 LUNA LEGER MD, Ot E11.9 TYPE 2 DIABETES MELLITUS WITHOUT COMPLIC 07/03/2016 LUNA LEGER MD Ot I10 ESSENTIAL (PRIMARY) HYPERTENSION 07/03/2016 LUNA LEGER MD, Ot J44.9 CHRONIC OBSTRUCTIVE PULMONARY DISEASE, U 07/03/2016 LUNA LEGER MD Ot R10.31 RIGHT LOWER QUADRANT PAIN 07/03/2016 LUNA LEGER MD Ot R11.10 VOMITING, UNSPECIFIED 07/03/2016 LUNA LEGER MD, Ot Z79.899 OTHER PIPE FOREMAN (CURRENT) DRUG THERAPY 07/12/2016 EDI FAUSTIN DO [...] PLEURISY 07/18/2016 JANELLE ESPITIA APRN Ot Z79.84 SNF (CURRENT) USE OF ORAL HYPOGLYC 07/18/2016 JANELLE ESPITIA APRN Ot Z79.899 OTHER PIPE FOREMAN (CURRENT) DRUG THERAPY 07/19/2016 JANELLE ESPITIA APRN Ot E11 .9 TYPE 2 DIABETES MELLITUS WITHOUT COMPLIC 07/19/2016 JANELLE ESPITIA BONUS CLERK Ot I10 ESSENTIAL (PRIMARY) HYPERTENSION 07/19/2016 JANELLE ESPITIA BONUS CLERK Ot J44 .0 CHRONIC OBSTRUCTIVE PULMON DISEASE W ACU 07/19/2016 JANELLE ESPITIA BONUS CLERK Ot R05 COUGH 07/19/2016 JANELLE ESPITIA APRN Ot R09 .1 PLEURISY 07/19/2016 JANELLE ESPITIA APRN Ot Z79.84 PIPE FOREMAN (CURRENT) USE OF ORAL HYPOGLYC 07/19/2016 JANELLE ESPITIA APRN Ot Z79.899 OTHER PIPE FOREMAN (CURRENT) DRUG THERAPY 07/23/2016 GELGREG DOEDI A [...] 08/03/2016 CHRISTO VIDAL MD Ot Z79. 84 SNF (CURRENT) USE OF ORAL HYPOGLYC 08/03/2016 CHRISTO VIDAL MD Ot Z79.899 OTHER SNF (CURRENT) DRUG THERAPY 08/05/2016 EDI FAUSTIN DO A Ot R10.12 LEFT UPPER QUADRANT PAIN 08/05/2016 CHRISTO VIDAL MD Ot E11. 9 TYPE 2 DIABETES MELLITUS WITHOUT COMPLIC 08/05/2016 CHRISTO VIDAL MD Ot F41. 9 ANXIETY DISORDER, UNSPECIFIED 08/05/2016 YOUNG CULLEN, CHRISTO Huston Ot I10 ESSENTIAL (PRIMARY) HYPERTENSION 08/05/2016 YOUNG CLULEN, CHRISTO Huston Ot J02. 9 ACUTE PHARYNGITIS, UNSPECIFIED 08/05/2016 YOUNG CULLEN, CHRISTO Huston Ot J44. 9 CHRONIC OBSTRUCTIVE PULMONARY DISEASE, U 08/05/2016 CHRISTO VIDAL MD Ot Z79. 84 SNF (CURRENT) USE OF ORAL HYPOGLYC 08/05/2016 CHRISTO VIDAL MD Ot Z79.899 OTHER SNF (CURRENT) DRUG THERAPY 08/09/2016 YOUNG CULLEN, CHRISTO [...] YOUNG CULLEN, CHRISTO Huston Ot Z79. 84 SNF (CURRENT) USE OF ORAL HYPOGLYC 08/09/2016 CHRISTO VIDAL MD Ot Z79.899 OTHER SNF (CURRENT) DRUG THERAPY 08/14/2016 EDI FAUSTIN DO Ot R10.11 RIGHT UPPER QUADRANT PAIN 08/15/2016 JANELLE ESPITIA APRN Ot E11 .9 TYPE 2 DIABETES MELLITUS WITHOUT COMPLIC 08/15/2016 JANELLE ESPITIA APRN Ot F41 .9 ANXIETY DISORDER, UNSPECIFIED 08/15/2016 JANELLE ESPITIA BONUS CLERK Ot I10 ESSENTIAL (PRIMARY) HYPERTENSION 08/15/2016 JANELLE ESPITIA APRN Ot J44 .9 CHRONIC OBSTRUCTIVE PULMONARY DISEASE, U 08/15/2016 JANELLE ESPITIA APRN Ot R07.89 OTHER CHEST PAIN 08/15/2016 JANELLE ESPITIA APRN Ot R07 .9 CHEST PAIN, UNSPECIFIED 08/15/2016 JANELLE ESPITIA APRN Ot Z79.84 PIPE FOREMAN (CURRENT) USE OF ORAL HYPOGLYC 08/15/2016 JANELLE ESPITIA APRN Ot Z79.899 OTHER PIPE FOREMAN (CURRENT) DRUG THERAPY 08/15/2016 JANELLE ESPITIA BONUS CLERK Ot E11 .9 TYPE 2 DIABETES MELLITUS WITHOUT COMPLIC 08/15/2016 JANELLE ESPITIA BONUS CLERK Ot F41 .9 ANXIETY DISORDER, UNSPECIFIED 08/15/2016 JANELLE ESPITIA BONUS CLERK Ot I10 ESSENTIAL (PRIMARY) HYPERTENSION 08/15/2016 JANELLE ESPITIA BONUS CLERK Ot J44 .9 CHRONIC OBSTRUCTIVE PULMONARY DISEASE, U 08/15/2016 JANELLE ESPITIA APRN Ot R07.89 OTHER CHEST PAIN 08/15/2016 JANELLE ESPITIA APRN Ot R07 .9 CHEST PAIN, UNSPECIFIED 08/15/2016 JANELLE ESPITIA APRN Ot Z79.84 PIPE FOREMAN (CURRENT) USE OF ORAL HYPOGLYC 08/15/2016 JANELLE ESPITIA BONUS CLERK Ot Z79.899 OTHER PIPE FOREMAN (CURRENT) DRUG THERAPY 08/21/2016 ZAHIRA PETERSEN DO [...] PAIN 08/24/2016 JANELLE ESPITIA APRN Ot Z79.84 PIPE FOREMAN (CURRENT) USE OF ORAL HYPOGLYC 08/24/2016 JANELLE ESPITIA BONUS CLERK Ot Z79.899 OTHER PIPE FOREMAN (CURRENT) DRUG THERAPY 08/26/2016 JANELLE ESPITIA BONUS CLERK Ot E11 .9 TYPE 2 DIABETES MELLITUS WITHOUT COMPLIC 08/26/2016 JANELLE ESPITIA BONUS CLERK Ot J44 .9 CHRONIC OBSTRUCTIVE PULMONARY DISEASE, U 08/26/2016 JANELLE ESPITIA BONUS CLERK Ot M54 .5 LOW BACK PAIN 08/26/2016 JANELLE ESPITIA BONUS CLERK Ot Z79.84 PIPE FOREMAN (CURRENT) USE OF ORAL HYPOGLYC 08/26/2016 JANELLE ESPITIA BONUS CLERK Ot Z79.899 OTHER SNF (CURRENT) DRUG THERAPY 09/04/2016 ZAHIRA PETERSEN DO [...] EDI FAUSTIN DO Ot R07.81 PLEURODYNIA 09/13/2016 MAOJR GIPSON APRN Ot J30.9 ALLERGIC RHINITIS, UNSPECIFIED [...] TYPE 2 DIABETES MELLITUS WITH HYPERGLYCE 09/13/2016 NIKCY THOMPSON MD Ot R10.1 1 RIGHT UPPER [...] DAVID CULLEN, LAYTON Spencer Ot Z79.899 OTHER PIPE FOREMAN (CURRENT) DRUG THERAPY 09/13/2016 LAYTON HERNANDEZ MD [...] 09/16/2016 LAYTON HERNANDEZ MD Ot Z79.899 OTHER SNF (CURRENT) DRUG THERAPY 09/16/2016 LAYTON HERNANDEZ MD [...] PAIN 10/16/2016 LUNA LEGER MD Ot Z79.84 PIPE FOREMAN (CURRENT) USE OF ORAL HYPOGLYC 10/16/2016 LUNA LEGER MD Ot Z79.899 OTHER PIPE FOREMAN (CURRENT) DRUG THERAPY 10/16/2016 LUNA LEGER MD Ot Z90.49 ACQUIRED ABSENCE OF OTHER SPECIFIED PART 11/03/2016 CHRISTO VIDAL MD Ot J02. 0 STREPTOCOCCAL PHARYNGITIS 11/03/2016 CHRISTO VIDAL MD Ot N39. 0 URINARY TRACT INFECTION, SITE NOT SPECIF 11/03/2016 CHRISTO VIDAL MD Ot R05 COUGH 11/03/2016 CHRISTO VIDAL MD Ot R07. 89 OTHER CHEST PAIN 11/03/2016 CHRISTO VIDAL MD Ot Z79. 84 PIPE FOREMAN (CURRENT) USE OF ORAL HYPOGLYC 11/03/2016 YOUNG CULLEN CHRISTO Huston Ot Z87.891 PERSONAL HISTORY OF NICOTINE DEPENDENCE 11/05/2016 YOUNG CULLEN CHRISTO Huston Ot J02. 0 STREPTOCOCCAL PHARYNGITIS 11/05/2016 YOUNG CULLEN CHRISTO Huston Ot N39. 0 URINARY TRACT INFECTION, SITE NOT SPECIF 11/05/2016 CHRISTO VIADL MD Ot R05 COUGH 11/05/2016 YOUNG CULLEN CHRISTO Robel Ot R07. 89 OTHER CHEST PAIN 11/05/2016 YOUNG CULLEN CHRISTO Huston Ot Z79. 84 SNF (CURRENT) USE OF ORAL HYPOGLYC 11/05/2016 YOUNG [...] DISEASE, U 11/22/2016 RAQUEL ROLDAN Ot Z79.4 PIPE FOREMAN (CURRENT) USE OF INSULIN 11/22/2016 RAQUEL ROLDAN Ot Z79.899 OTHER PIPE FOREMAN (CURRENT) DRUG THERAPY 11/25/2016 RAQUEL ROLDAN Ot 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 11/25/2016 RAQUEL ROLDAN Ot E11.9 TYPE 2 DIABETES MELLITUS WITHOUT COMPLIC 11/25/2016 RAQUEL ROLDAN Ot J44.9 CHRONIC OBSTRUCTIVE PULMONARY DISEASE, U 11/25/2016 RAQUEL ROLDAN Ot Z79.4 SNF (CURRENT) USE OF INSULIN 11/25/2016 RAQUEL ROLDAN Ot Z79.899 OTHER PIPE FOREMAN (CURRENT) DRUG THERAPY 11/26/2016 PATRIC MONTERO MD Ot R10.31 RIGHT LOWER QUADRANT PAIN 11/28/2016 CECELIA CULLEN, Nia WILSON Ot E11 .9 TYPE 2 DIABETES MELLITUS WITHOUT COMPLIC 11/28/2016 CECELIA CULLEN, Nia WILSON Ot E78 .5 HYPERLIPIDEMIA, UNSPECIFIED 11/28/2016 CECELIA CULLEN, Nia IWLSON Ot J44 .9 CHRONIC OBSTRUCTIVE PULMONARY DISEASE, U 11/28/2016 Nia RAI MD Ot R07 .9 CHEST PAIN, UNSPECIFIED 11/28/2016 CECELIA CULLEN, Nia WILSON Ot E11 .9 TYPE 2 DIABETES MELLITUS WITHOUT COMPLIC 11/28/2016 iNa RAI MD Ot E78 .5 HYPERLIPIDEMIA, UNSPECIFIED [...] 02/09/2017 LAUREL SHEN MD Ot Z79. 82 PIPE FOREMAN (CURRENT) USE OF ASPIRIN 02/11/2017 LAUREL SHEN [...] 02/11/2017 LAUREL SHEN MD Ot Z79. 82 PIPE FOREMAN (CURRENT) USE OF ASPIRIN 02/27/2017 EDI FAUSTIN [...] 03/04/2017 LAUREL SHEN MD, Ot Z79. 82 SNF (CURRENT) USE OF ASPIRIN 03/05/2017 KISHA BALDWIN [...] 03/05/2017 KISHA BALDWIN MD, Ot Z79.899 OTHER PIPE FOREMAN (CURRENT) DRUG THERAPY 03/05/2017 KISHA BALDWIN MD, [...] 9 CHRONIC OBSTRUCTIVE PULMONARY DISEASE, U 03/06/2017 LAUERL SHEN MD Ot S83.91XA SPRAIN OF UNSPECIFIED SITE OF RIGHT KNEE 03/06/2017 LAUREL SHEN MD Ot S89.91XA UNSPECIFIED INJURY OF RIGHT LOWER LEG, I 03/06/2017 LAUREL SHEN MD Ot W22.03XA WALKED INTO FURNITURE, INITIAL ENCOUNTER 03/06/2017 LAUREL SHEN MD Ot Y99. 8 OTHER EXTERNAL CAUSE STATUS 03/06/2017 LAUREL SHEN MD, Ot Z79. 82 PIPE FOREMAN (CURRENT) USE OF ASPIRIN 03/06/2017 KISHA BALDWIN [...] 03/06/2017 KISHA BALDWIN MD, Ot Z79.899 OTHER PIPE FOREMAN (CURRENT) DRUG THERAPY 03/06/2017 KISHA BALDWIN MD, Ot Z87.891 PERSONAL HISTORY OF NICOTINE DEPENDENCE 03/16/2017 RAQUEL ROLDAN Ot 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 03/16/2017 RAQUEL ROLDAN Ot E11.9 TYPE 2 DIABETES MELLITUS WITHOUT COMPLIC 03/16/2017 RAQUEL ROLDAN Ot J44.9 CHRONIC OBSTRUCTIVE PULMONARY DISEASE, U 03/16/2017 ARQUEL ROLDAN Ot Z79.4 SNF (CURRENT) USE OF INSULIN 03/16/2017 RAQUEL ROLDAN Ot Z79.899 OTHER SNF (CURRENT) DRUG THERAPY 04/08/2017 KISHA BALDWIN MD, [...] 04/08/2017 KISHA BALDWIN MD, Ot Z79.899 OTHER PIPE FOREMAN (CURRENT) DRUG THERAPY 04/08/2017 KISHA BALDWIN MD, [...] J30. 9 ALLERGIC RHINITIS, UNSPECIFIED 04/29/2017 ZAHIRA PETERESN DO Ot R06. 02 SHORTNESS OF BREATH [...] 04/29/2017 KISHA BALDWIN MD, Ot Z79.899 OTHER PIPE FOREMAN (CURRENT) DRUG THERAPY 04/29/2017 KISHA BALDWIN MD, [...] HEADACHE 04/30/2017 LAYTON HERNANDEZ MD Ot Z79.84 PIPE FOREMAN (CURRENT) USE OF ORAL HYPOGLYC 04/30/2017 LAYTON [...] K21.9 GASTRO-ESOPHAGEAL REFLUX DISEASE WITHOUT 05/02/2017 LAYTON HERNNADEZ MD Ot M19.90 UNSPECIFIED OSTEOARTHRITIS, UNSPECIFIED 05/02/2017 LAYTON HERNANDEZ MD Ot M54.6 PAIN IN THORACIC SPINE 05/02/2017 LAYTON HERNANDEZ MD Ot M79.1 MYALGIA 05/02/2017 LAYTON HERNANDEZ MD Ot R07.81 PLEURODYNIA 05/02/2017 LAYTON HERNANDEZ MD Ot R11.0 NAUSEA 05/02/2017 LAYTON HERNANDEZ MD, Ot R51 HEADACHE 05/02/2017 LAYTON HERNANDEZ MD, Ot Z79.84 PIPE FOREMAN (CURRENT) USE OF ORAL HYPOGLYC 05/02/2017 LAYTON [...] HEADACHE 05/02/2017 LAYTON HERNANDEZ MD Ot Z79.84 PIPE FOREMAN (CURRENT) USE OF ORAL HYPOGLYC 05/02/2017 LAYTON [...] ESPITIA APRN Ot Y92.[address] [facility]) 05/07/2017 JANELLE ESPITIA APRN Ot Z79.84 PIPE FOREMAN (CURRENT) USE OF ORAL HYPOGLYC 05/07/2017 JANELLE [...] ESPITIA APRN Ot Y92.[address] [facility]) 05/09/2017 JANELLE ESPITIA APRN Ot Z79.84 PIPE FOREMAN (CURRENT) USE OF ORAL HYPOGLYC 05/09/2017 JANELLE [...] R06.02 SHORTNESS OF BREATH 05/28/2017 MAJOR GIPSON BONUS CLERK Ot M79.604 PAIN IN RIGHT LEG 05/28/2017 MAJOR GIPSON BONUS CLERK Ot M79.605 PAIN IN LEFT LEG 05/28/2017 MAJOR GIPSON BONUS CLERK Ot R06.00 DYSPNEA, UNSPECIFIED 05/28/2017 MAJOR GIPSON BONUS CLERK Ot R22.43 LOCALIZED SWELLING, MASS AND LUMP, LOWER 06/05/2017 MAJOR GIPSON APRN Ot R06.02 SHORTNESS OF BREATH 06/06/2017 MAJOR GIPSON APRN Ot M79.604 PAIN IN RIGHT LEG 06/06/2017 MAJOR GIPSON BONUS CLERK Ot M79.605 PAIN IN LEFT LEG 06/06/2017 MAJOR GIPSON BONUS CLERK Ot R06.00 DYSPNEA, UNSPECIFIED 06/06/2017 MAJOR GIPSON BONUS CLERK Ot R22.43 LOCALIZED SWELLING, MASS AND LUMP, [...] REFLUX DISEASE WITHOUT 08/10/2017 ESPITIA, PETER J BONUS CLERK Ot R07 .9 CHEST PAIN, UNSPECIFIED 08/10/2017 JANELLE ESPITIA BONUS CLERK Ot R53.81 OTHER MALAISE 08/10/2017 JANELLE ESPITIA BONUS CLERK Ot Z79.84 PIPE FOREMAN (CURRENT) USE OF ORAL HYPOGLYC 08/10/2017 JANELLE ESPITIA BONUS CLERK Ot Z87.19 PERSONAL HISTORY OF OTHER DISEASES OF TH 08/10/2017 JANELLE ESPITIA BONUS CLERK Ot Z87.448 PERSONAL HISTORY OF OTHER DISEASES OF UR 08/10/2017 JANELLE ESPITIA BONUS CLERK Ot Z87.891 PERSONAL HISTORY OF NICOTINE DEPENDENCE 08/10/2017 JANELLE ESPITIA BONUS CLERK Ot 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 09/13/2017 REBEKA, OLIVA 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 Ot E11.9 TYPE 2 DIABETES MELLITUS WITHOUT COMPLIC 09/13/2017 REBEKA, OLIVA 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 Ot E78.00 PURE HYPERCHOLESTEROLEMIA, UNSPECIFIED 09/13/2017 REBEKA, OLIVA 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 Ot F31.9 BIPOLAR DISORDER, UNSPECIFIED 09/13/2017 REBEKA, OLIVA 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 Ot F41.9 ANXIETY DISORDER, UNSPECIFIED 09/13/2017 REBEKA, OLIVA 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 Ot G47.30 SLEEP APNEA, UNSPECIFIED 09/13/2017 REBEKA, OLIVA 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 Ot J02.9 ACUTE PHARYNGITIS, UNSPECIFIED 09/13/2017 REBEKA, OLIVA 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 Ot J06.9 ACUTE UPPER RESPIRATORY INFECTION, UNSPE 09/13/2017 REBEKA, OLIVA 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 Ot J44.9 CHRONIC OBSTRUCTIVE PULMONARY DISEASE, U 09/13/2017 REBEKA OLIVA 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 Ot K21.9 GASTRO-ESOPHAGEAL REFLUX DISEASE WITHOUT 09/13/2017 REBEKA, OLIVA 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 Ot Z87.891 PERSONAL HISTORY OF NICOTINE DEPENDENCE 09/13/2017 REBEKA OLIVA 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 Ot 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 09/15/2017 REBEKA, OLIVA 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 Ot E11.9 TYPE 2 DIABETES MELLITUS WITHOUT COMPLIC 09/15/2017 REBEKA, OLIVA 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 Ot E78.00 PURE HYPERCHOLESTEROLEMIA, UNSPECIFIED 09/15/2017 REBEKA, OLIVA 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 Ot F31.9 BIPOLAR DISORDER, UNSPECIFIED 09/15/2017 REBEKA, OLIVA 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 Ot F41.9 ANXIETY DISORDER, UNSPECIFIED 09/15/2017 REBEKA, OLIVA 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 Ot G47.30 SLEEP APNEA, UNSPECIFIED 09/15/2017 OLIVA [...] Ot R07.81 PLEURODYNIA 11/20/2017 LEONELA, MAJOR E BONUS CLERK Ot J30.9 ALLERGIC RHINITIS, UNSPECIFIED 11/20/2017 MAJOR [...] LUMP IN THE LEFT BREAST, LOW 11/21/2017 KIHSA BALDWIN MD, Ot M94.261 CHONDROMALACIA, RIGHT KNEE [...] ADULT 11/26/2017 KISHA BALDWIN MD, Ot Z79.84 PIPE FOREMAN (CURRENT) USE OF ORAL HYPOGLYC 11/26/2017 KISHA BALDWIN MD, Ot Z79.899 OTHER SNF (CURRENT) DRUG THERAPY 11/26/2017 KISHA BALDWIN MD, [...] ADULT 11/27/2017 KISHA BALDWIN MD, Ot Z79.84 PIPE FOREMAN (CURRENT) USE OF ORAL HYPOGLYC 11/27/2017 KISHA BALDWIN MD, Ot Z79.899 OTHER SNF (CURRENT) DRUG THERAPY 11/27/2017 KISHA BALDWIN MD, [...] PLEURODYNIA 12/05/2017 JANELLE ESPITIA APRN Ot Z79.84 PIPE FOREMAN (CURRENT) USE OF ORAL HYPOGLYC 12/05/2017 JANELLE [...] PLEURODYNIA 12/08/2017 JANELLE ESPITIA APRN Ot Z79.84 PIPE FOREMAN (CURRENT) USE OF ORAL HYPOGLYC 12/08/2017 JANELLE [...] PLEURODYNIA 12/11/2017 JANELLE ESPITIA APRN Ot Z79.84 SNF (CURRENT) USE OF ORAL HYPOGLYC 12/11/2017 JANELLE [...] 04/01/2018 JOHANNY LOU MURALI K Ot Z79.51 SNF (CURRENT) USE OF INHALED STERO 04/01/2018 EDU [...] 2 DIABETES MELLITUS WITHOUT COMPLIC 04/02/2018 JOHANNY DOEDUA K Ot E66.9 OBESITY, UNSPECIFIED 04/02/2018 JOHANNY DO MURALI K Ot E78.00 PURE HYPERCHOLESTEROLEMIA, UNSPECIFIED 04/02/2018 JOHANNY DO UMRALI K Ot F31.9 BIPOLAR DISORDER, UNSPECIFIED 04/02/2018 [...] JOHANNY LOU MURALI Jose Antonio Ot Z79.51 SNF (CURRENT) USE OF INHALED STERO 04/02/2018 JOHANNY [...] FAUSTIN DO Ot N64.4 MASTODYNIA 04/16/2018 ZAHIRA PETERESN DO Ot E66. 01 MORBID (SEVERE) OBESITY [...] .9 CHEST PAIN, UNSPECIFIED 04/20/2018 MAJOR GIPSON BONUS CLERK Ot R06.02 SHORTNESS OF BREATH 04/20/2018 MAJOR GIPSON BONUS CLERK Ot M79.604 PAIN IN RIGHT LEG 04/20/2018 MAJOR GIPSON BONUS CLERK Ot M79.605 PAIN IN LEFT LEG 04/20/2018 MAJOR GIPSON BONUS CLERK Ot R06.00 DYSPNEA, UNSPECIFIED 04/20/2018 MAJOR GIPSON BONUS CLERK Ot R22.43 LOCALIZED SWELLING, MASS AND LUMP, [...] D 04/20/2018 VICTORIA CHÁVEZ MD Ot Z79.82 SNF (CURRENT) USE OF ASPIRIN 04/20/2018 VICTORIA CHÁVEZ MD Ot Z79.84 PIPE FOREMAN (CURRENT) USE OF ORAL HYPOGLYC 04/20/2018 VICTORIA CHÁVEZ MD Ot Z79.899 OTHER SNF (CURRENT) DRUG THERAPY 04/20/2018 SAIRA CULLEN, VICTORIA [...] D 04/21/2018 VICTORIA CHÁVEZ MD, Ot Z79.82 PIPE FOREMAN (CURRENT) USE OF ASPIRIN 04/21/2018 VICTORIA CHÁVEZ MD, Ot Z79.84 SNF (CURRENT) USE OF ORAL HYPOGLYC 04/21/2018 VICTORIA CHÁVEZ MD, Ot Z79.899 OTHER PIPE FOREMAN (CURRENT) DRUG THERAPY 04/21/2018 VICTORIA CHÁVEZ MD, [...] D 04/26/2018 VICTORIA CHÁVEZ MD, Ot Z79.82 PIPE FOREMAN (CURRENT) USE OF ASPIRIN 04/26/2018 VICTORIA CHÁVEZ MD, Ot Z79.84 SNF (CURRENT) USE OF ORAL HYPOGLYC 04/26/2018 VICTORIA CHÁVEZ MD, Ot Z79.899 OTHER SNF (CURRENT) DRUG THERAPY 04/26/2018 VICTORIA CHÁVEZ MD, [...] ADULT 05/06/2018 KISHA BALDWIN MD, Ot Z79.82 PIPE FOREMAN (CURRENT) USE OF ASPIRIN 05/06/2018 KISHA BALDWIN MD, Ot Z79.84 PIPE FOREMAN (CURRENT) USE OF ORAL HYPOGLYC 05/06/2018 KISHA [...] Z01.818 ENCOUNTER FOR OTHER PREPROCEDURAL EXAMIN 07/09/2018 KSIHA BALDWIN MD Ot Z11.2 ENCOUNTER FOR SCREENING [...] 02 SHORTNESS OF BREATH 07/09/2018 TRINITY DO, ZAHIRA Kramer Ot E66. [...] TO EXCESS CA 07/09/2018 TRINITY DO, ZAHIRA Kramer Ot J30. 9 ALLERGIC RHINITIS, UNSPECIFIED 07/09/2018 TRINITY DO, ZAHIRA Kramer Ot R06. 02 SHORTNESS OF BREATH 07/09/2018 JCARLOSDER DO, EDI A Ot R10.12 LEFT UPPER QUADRANT PAIN 07/09/2018 GELLENDER DO, EDI A Ot R10.11 RIGHT UPPER QUADRANT PAIN 07/09/2018 DONNA CULLEN, INCKY Lawrence Ot E11.6 5 TYPE 2 DIABETES [...] 2 DIABETES MELLITUS WITHOUT COMPLIC 07/09/2018 Nia RIA MD Ot E78 .5 HYPERLIPIDEMIA, UNSPECIFIED 07/09/2018 [...] ADULT 07/18/2018 KISHA BALDWIN MD Ot Z79.84 SNF (CURRENT) USE OF ORAL HYPOGLYC 07/18/2018 KISHA [...] PAIN 10/29/2018 JANELLE ESPITIA APRN Ot Z79.51 SNF (CURRENT) USE OF INHALED STERO 10/29/2018 JANELLE ESPITIA APRN Ot Z79.82 PIPE FOREMAN (CURRENT) USE OF ASPIRIN 10/29/2018 JANELLE ESPITIA [...] PAIN 11/02/2018 JANELLE ESPITIA APRN Ot Z79.51 PIPE FOREMAN (CURRENT) USE OF INHALED STERO 11/02/2018 JANELLE ESPITIA APRN Ot Z79.82 SNF (CURRENT) USE OF ASPIRIN 11/02/2018 JANELLE ESPITIA [...] YOUNG CULLEN, CHRISTO Huston Ot Z79. 51 SNF (CURRENT) USE OF INHALED STERO 11/29/2018 CHRISTO VIDAL MD Ot Z79. 82 PIPE FOREMAN (CURRENT) USE OF ASPIRIN 11/29/2018 YOUNG CULLEN, [...] PULMONARY DISEASE, U 12/02/2018 YOUNG CULLEN, CHRISTO Husotn Ot K21. 9 GASTRO-ESOPHAGEAL REFLUX DISEASE WITHOUT 12/02/2018 YOUNG CULLEN, CHRISTO Huston Ot K58. 9 IRRITABLE BOWEL SYNDROME WITHOUT DIARRHE 12/02/2018 YOUNG CULLEN, CHRISTO Huston Ot M79. 10 MYALGIA, UNSPECIFIED SITE 12/02/2018 CHRISTO VIDAL MD Ot R05 COUGH 12/02/2018 CHRISTO VIDAL MD Ot R53. 1 WEAKNESS 12/02/2018 CHRISTO VIDAL MD Ot R53. 81 OTHER MALAISE 12/02/2018 YOUNG CULLEN, CHRISTO Huston Ot Z79. 51 PIPE FOREMAN (CURRENT) USE OF INHALED STERO 12/02/2018 CHRISTO VIDAL MD Ot Z79. 82 SNF (CURRENT) USE OF ASPIRIN 12/02/2018 YOUNG CULLEN, [...] Z88. 0 ALLERGY STATUS TO PENICILLIN 12/02/2018 YOUGN CULLEN, CHRISTO Huston Ot Z88. 8 ALLERGY [...] YOUNG CULLEN, CHRISTO Huston Ot Z79. 51 PIPE FOREMAN (CURRENT) USE OF INHALED STERO 12/07/2018 CHRISTO VIDAL MD Ot Z79. 82 PIPE FOREMAN (CURRENT) USE OF ASPIRIN 12/07/2018 CHRISTO VIDAL [...] MD Ot R13.19 OTHER DYSPHAGIA 12/22/2018 KISHA ACRRILLO MD Ot R49 .0 DYSPHONIA 12/22/2018 KISHA [...] R06. 02 SHORTNESS OF BREATH 12/22/2018 ZAHIRA EPTERSEN DO Ot E66. 01 MORBID (SEVERE) OBESITY [...] GIPSON APRN Ot R06.00 DYSPNEA, UNSPECIFIED 12/22/2018 MAOJR GIPSON APRN Ot R22.43 LOCALIZED SWELLING, MASS AND LUMP, LOWER 12/22/2018 NICKY THOMPSON MD Ot Z12.3 1 ENCNTR SCREEN MAMMOGRAM FOR MALIGNANT NE 12/22/2018 NICKY THOMPSON MD Ot N63.2 3 UNSPECIFIED LUMP IN THE LEFT BREAST, LOW 12/22/2018 HARRIS, SLY J BONUS CLERK Ot R10.11 RIGHT UPPER QUADRANT PAIN 12/22/2018 SLY HARRIS BONUS CLERK Ot Z90.49 ACQUIRED ABSENCE OF OTHER SPECIFIED [...] 12/22/2018 STEPHANE KIMBLE DO Ot Z79. 84 SNF (CURRENT) USE OF ORAL HYPOGLYC 12/22/2018 STEPHANE KIMBLE DO Ot Z79.899 OTHER SNF (CURRENT) DRUG THERAPY 12/22/2018 STEPHANE KIMBLE DO [...] 12/24/2018 STEPHANE KIMBLE DO Ot Z79. 84 SNF (CURRENT) USE OF ORAL HYPOGLYC 12/24/2018 STEPHANE KIMBLE DO Ot Z79.899 OTHER PIPE FOREMAN (CURRENT) DRUG THERAPY 12/24/2018 STEPHANE KIMBLE DO [...] 12/24/2018 STEPHANE KIMBLE DO Ot Z79. 84 SNF (CURRENT) USE OF ORAL HYPOGLYC 12/24/2018 STEPHANE KIMBLE DO Ot Z79.899 OTHER PIPE FOREMAN (CURRENT) DRUG THERAPY 12/24/2018 STEPHANE KIMBLE DO [...] APRN Ot R06.02 SHORTNESS OF BREATH 12/26/2018 AZHIRA PETERSEN DO Ot E66. 01 MORBID (SEVERE) OBESITY DUE TO EXCESS CA 12/26/2018 ZAHIRA PETERSEN DO Ot J30. 9 ALLERGIC RHINITIS, UNSPECIFIED 12/26/2018 ZAHIRA PETERSEN DO Ot R06. 02 SHORTNESS OF BREATH 12/26/2018 ZAHIRA PETERSEN DO Ot E66. 01 MORBID (SEVERE) OBESITY DUE TO EXCESS CA 12/26/2018 ZAHIRA PETERSEN DO Ot J30. 9 ALLERGIC RHINITIS, UNSPECIFIED 12/26/2018 ZAHRIA PETERSEN DO Ot R06. 02 SHORTNESS OF [...] R06.02 SHORTNESS OF BREATH 12/26/2018 MAJOR GIPSON BONUS CLERK Ot M79.604 PAIN IN RIGHT LEG 12/26/2018 MAJOR GIPSON BONUS CLERK Ot M79.605 PAIN IN LEFT LEG 12/26/2018 MAJOR GIPSON BONUS CLERK Ot R06.00 DYSPNEA, UNSPECIFIED 12/26/2018 MAJOR GIPSON BONUS CLERK Ot R22.43 LOCALIZED SWELLING, MASS AND LUMP, LOWER 12/26/2018 NICKY THOMPSON MD Ot Z12.3 1 ENCNTR SCREEN MAMMOGRAM FOR MALIGNANT NE 12/26/2018 GAULT MD, NICKY R Ot N63.2 3 UNSPECIFIED LUMP IN THE LEFT BREAST, LOW 12/26/2018 SLY HARRIS BONUS CLERK Ot R10.11 RIGHT UPPER QUADRANT PAIN 12/26/2018 SLY HARRIS BONUS CLERK Ot Z90.49 ACQUIRED ABSENCE OF OTHER SPECIFIED PART 12/26/2018 REBEKA, OLIVA 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 Ot E11.9 TYPE 2 DIABETES MELLITUS WITHOUT COMPLIC 12/26/2018 REBEKA, OLIVA 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 Ot E66.9 OBESITY, UNSPECIFIED 12/26/2018 REBEKA, OLIVA 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 Ot F32.9 MAJOR DEPRESSIVE DISORDER, SINGLE EPISOD 12/26/2018 REBEKA, OLIVA 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 Ot F41.9 ANXIETY DISORDER, UNSPECIFIED 12/26/2018 REBEKA, OLIVA 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 Ot G25.81 RESTLESS LEGS SYNDROME 12/26/2018 REBEKA, OLIVA 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 Ot H66.93 OTITIS MEDIA, UNSPECIFIED, BILATERAL 12/26/2018 REBEKA, OLIVA 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 Ot J02.9 ACUTE PHARYNGITIS, UNSPECIFIED 12/26/2018 REBEKA, OLIVA 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 Ot J06.9 ACUTE UPPER RESPIRATORY INFECTION, UNSPE 12/26/2018 REBEKA OLIVA 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 Ot K21.9 GASTRO-ESOPHAGEAL REFLUX DISEASE WITHOUT 12/26/2018 REBEKA, OLIVA 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 Ot K58.9 IRRITABLE BOWEL SYNDROME WITHOUT DIARRHE 12/26/2018 REBEKA OLIVA 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 Ot Z68.41 BODY MASS INDEX (BMI) 40.0-44.9, ADULT 12/26/2018 REBEKA OLIVA 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 Ot Z79.51 PIPE FOREMAN (CURRENT) USE OF INHALED STERO 12/26/2018 REBEKA OLIVA 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 Ot Z79.84 SNF (CURRENT) USE OF ORAL HYPOGLYC 12/26/2018 REBEKA OLIVA 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 Ot Z82.49 FAMILY HX OF ISCHEM HEART DIS AND OTH DI 12/26/2018 OLIVA STALEY 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 Ot Z87.19 PERSONAL HISTORY OF OTHER DISEASES OF TH 12/26/2018 OLIVA STALEY 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 Ot Z87.440 PERSONAL HISTORY OF URINARY (TRACT) INFE 12/26/2018 REBEKA OLIVA 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 Ot Z87.448 PERSONAL HISTORY OF OTHER DISEASES OF UR 12/26/2018 OLIVA STALEY 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 Ot Z87.891 PERSONAL HISTORY OF NICOTINE [...] 12/30/2018 STEPHANE KIMBLE DO Ot Z79. 84 SNF (CURRENT) USE OF ORAL HYPOGLYC 12/30/2018 STEPHANE KIMBLE DO Ot Z79.899 OTHER PIPE FOREMAN (CURRENT) DRUG THERAPY 12/30/2018 STEPHANE KIMBLE DO Ot Z87.891 PERSONAL HISTORY OF NICOTINE DEPENDENCE 12/30/2018 OLIVA STALEY Ot E11.9 TYPE 2 DIABETES MELLITUS WITHOUT COMPLIC 12/30/2018 OLIVA STALEY Ot E66.9 OBESITY, UNSPECIFIED 12/30/2018 REBEKA, OLIVA 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 Ot F32.9 MAJOR DEPRESSIVE DISORDER, SINGLE EPISOD 12/30/2018 REBEKAOLIVA Gallegos 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 Ot F41.9 ANXIETY DISORDER, UNSPECIFIED 12/30/2018 REBEKAOLIVA Gallegos 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 Ot G25.81 RESTLESS LEGS SYNDROME 12/30/2018 REBEKAOLIVA Gallegos 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 Ot H66.93 OTITIS MEDIA, UNSPECIFIED, BILATERAL 12/30/2018 REBEKAOLIVA GallegosP Ot J02.9 ACUTE PHARYNGITIS, UNSPECIFIED 12/30/2018 REBEKAOLIVA GallegosP Ot J06.9 ACUTE UPPER RESPIRATORY INFECTION, UNSPE 12/30/2018 REBEKAOLIVA GallegosP Ot K21.9 GASTRO-ESOPHAGEAL REFLUX DISEASE WITHOUT 12/30/2018 REBEKA, OLIVA 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 Ot K58.9 IRRITABLE BOWEL SYNDROME WITHOUT DIARRHE 12/30/2018 REBEKAOLIVA GallegosP Ot Z68.41 BODY MASS INDEX (BMI) 40.0-44.9, ADULT 12/30/2018 OLIVA STALEYP Ot Z79.51 SNF (CURRENT) USE OF INHALED STERO 12/30/2018 OLIVA STALEYP Ot Z79.84 SNF (CURRENT) USE OF ORAL HYPOGLYC 12/30/2018 REBEKAOLIVA Gallegos 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 Ot Z82.49 FAMILY HX OF ISCHEM HEART DIS AND OTH DI 12/30/2018 OLIVA STALEYP Ot Z87.19 PERSONAL HISTORY OF OTHER DISEASES OF TH 12/30/2018 OLIVA STALEYP Ot Z87.440 PERSONAL HISTORY OF URINARY (TRACT) INFE 12/30/2018 OLIVA STALEYP Ot Z87.448 PERSONAL HISTORY OF OTHER DISEASES OF UR 12/30/2018 OLIVA STALEY 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 Ot Z87.891 PERSONAL HISTORY OF NICOTINE DEPENDENCE 12/30/2018 OLIVA STALEY 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 Ot Z88.0 ALLERGY STATUS TO PENICILLIN 12/30/2018 OLIVA STALEY 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 Ot Z88.8 ALLERGY STATUS TO OT DRUG/MEDS/BIOL SUB 12/30/2018 OLIVA STALEYP Ot 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 12/30/2018 OLIVA STALEYP Ot Z91.041 RADIOGRAPHIC DYE ALLERGY STATUS 12/30/2018 OLIVA STALEYP Ot Z96.652 PRESENCE OF LEFT ARTIFICIAL KNEE JOINT 12/30/2018 OLIVA STALEY 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 Ot Z98.890 OTHER SPECIFIED POSTPROCEDURAL STATES 01/04/2019 [...] ADULT 01/06/2019 KISHA BALDWIN MD Ot Z79.84 PIPE FOREMAN (CURRENT) USE OF ORAL HYPOGLYC 01/06/2019 KISHA BALDWIN MD Ot Z79.899 OTHER PIPE FOREMAN (CURRENT) DRUG THERAPY 01/06/2019 KISHA BALDWIN MD [...] ADULT 01/07/2019 KISHA BALDWIN MD, Ot Z79.84 PIPE FOREMAN (CURRENT) USE OF ORAL HYPOGLYC 01/07/2019 KISHA BALDWIN MD, Ot Z79.899 OTHER SNF (CURRENT) DRUG THERAPY 01/07/2019 KISHA BALDWIN MD, [...] UNILATERAL PRIMARY OSTEOARTHRITIS, LEFT 01/07/2019 KISHA BALDWIN MD, Ot M79.7 FIBROMYALGIA 01/07/2019 KISHA BALDWIN MD, Ot Z68.41 BODY MASS INDEX (BMI) 40.0-44.9, ADULT 01/07/2019 KISHA BALDWIN MD, Ot Z79.84 PIPE FOREMAN (CURRENT) USE OF ORAL HYPOGLYC 01/07/2019 KISHA BALDWIN MD, Ot Z79.899 OTHER PIPE FOREMAN (CURRENT) DRUG THERAPY 01/07/2019 KISAH BALDWIN MD, Ot Z87.891 PERSONAL HISTORY OF [...] ADULT 01/14/2019 KISHA BALDWIN MD, Ot Z79.84 SNF (CURRENT) USE OF ORAL HYPOGLYC 01/14/2019 KISHA BALDWIN MD, Ot Z79.899 OTHER SNF (CURRENT) DRUG THERAPY 01/14/2019 KISHA BALDWIN MD, [...] 40.0-44.9, ADULT 05/06/2019 GHASSAN HARVEY Ot Z79.51 SNF (CURRENT) USE OF INHALED STERO 05/06/2019 GHASSAN HARVEY Ot Z79.84 SNF (CURRENT) USE OF ORAL HYPOGLYC 05/06/2019 LYLA [...] 40.0-44.9, ADULT 05/10/2019 GHASSAN HARVEY Ot Z79.51 SNF (CURRENT) USE OF INHALED STERO 05/10/2019 GHASSAN HARVEY Ot Z79.84 SNF (CURRENT) USE OF ORAL HYPOGLYC 05/10/2019 LYLA [...] Ot R06. 02 SHORTNESS OF BREATH 06/30/2019 KSIHA BALDWIN MD, Ot E11.9 TYPE 2 DIABETES [...] KNEE 06/30/2019 KISHA BALDWIN MD, Ot Z79.84 PIPE FOREMAN (CURRENT) USE OF ORAL HYPOGLYC 06/30/2019 KISHA BALDWIN MD, Ot Z79.891 PIPE FOREMAN (CURRENT) USE OF OPIATE ANALGE 06/30/2019 KISHA BALDWIN MD, Ot Z79.899 OTHER SNF (CURRENT) DRUG THERAPY 06/30/2019 KISHA BALDWIN MD, [...] KNEE 07/07/2019 KISHA BALDWIN MD, Ot Z79.84 PIPE FOREMAN (CURRENT) USE OF ORAL HYPOGLYC 07/07/2019 KISHA BALDWIN MD, Ot Z79.891 SNF (CURRENT) USE OF OPIATE ANALGE 07/07/2019 KISHA BALDWIN MD, Ot Z79.899 OTHER SNF (CURRENT) DRUG THERAPY 07/07/2019 KISHA BALDWIN MD, [...] KNEE 07/07/2019 KISHA BALDWIN MD, Ot Z79.84 PIPE FOREMAN (CURRENT) USE OF ORAL HYPOGLYC 07/07/2019 KISHA BALDWIN MD, Ot Z79.891 SNF (CURRENT) USE OF OPIATE ANALGE 07/07/2019 KISHA BALDWIN MD, Ot Z79.899 OTHER SNF (CURRENT) DRUG THERAPY 07/07/2019 KISHA BALDWIN MD, [...] KOROMA DO, ARELY L Ot Z79.5 1 SNF (CURRENT) USE OF INHALED STERO 08/05/2019 KOROMA DO, ARELY L Ot Z79.8 4 SNF (CURRENT) USE OF ORAL HYPOGLYC 08/05/2019 KOROMA [...] APRN Ot R06.02 SHORTNESS OF BREATH 09/28/2019 AZHIRA PETERSEN DO Ot E66. 01 MORBID (SEVERE) [...] PAIN 09/28/2019 JANELLE ESPITIA APRN Ot Z79.51 PIPE FOREMAN (CURRENT) USE OF INHALED STERO 09/28/2019 JANELLE ESPITIA APRN Ot Z79.52 PIPE FOREMAN (CURRENT) USE OF SYSTEMIC STER 09/28/2019 JANELLE ESPITIA APRN Ot Z79.84 SNF (CURRENT) USE OF ORAL HYPOGLYC 09/28/2019 JANELLE [...] PAIN 10/01/2019 JANELLE ESPITIA APRN Ot Z79.51 SNF (CURRENT) USE OF INHALED STERO 10/01/2019 JANELLE ESPITIA APRN Ot Z79.52 PIPE FOREMAN (CURRENT) USE OF SYSTEMIC STER 10/01/2019 JANELLE ESPITIA APRN Ot Z79.84 SNF (CURRENT) USE OF ORAL HYPOGLYC 10/01/2019 JANELLE [...] COUGH 11/10/2019 JANELLE ESPITIA APRN Ot Z79.84 PIPE FOREMAN (CURRENT) USE OF ORAL HYPOGLYC 11/10/2019 JANELLE ESPITIA APRN Ot Z87.891 PERSONAL HISTORY OF NICOTINE DEPENDENCE 11/10/2019 JANELLE ESPITIA APRN Ot Z88 .0 ALLERGY STATUS TO PENICILLIN 11/10/2019 JANELLE ESPITIA BONUS CLERK Ot Z88 .1 ALLERGY STATUS TO OTHER ANTIBIOTIC AGENT 11/10/2019 JANELLE ESPITIA BONUS CLERK Ot Z88 .8 ALLERGY STATUS TO OTH [...] COUGH 11/15/2019 JANELLE ESPITIA APRN Ot Z79.84 PIPE FOREMAN (CURRENT) USE OF ORAL HYPOGLYC 11/15/2019 JANELLE ESPITIA BONUS CLERK Ot Z87.891 PERSONAL HISTORY OF NICOTINE DEPENDENCE 11/15/2019 JANELLE ESPITIA APRN Ot Z88 .0 ALLERGY STATUS TO PENICILLIN 11/15/2019 JANELLE ESPITIA BONUS CLERK Ot Z88 .1 ALLERGY STATUS TO OTHER ANTIBIOTIC AGENT 11/15/2019 JANELLE ESPITIA BONUS CLERK Ot Z88 .8 ALLERGY STATUS TO OTH [...] COUGH 11/17/2019 JANELLE ESPITIA APRN Ot Z79.84 SNF (CURRENT) USE OF ORAL HYPOGLYC 11/17/2019 JANELLE [...] G47. 30 SLEEP APNEA, UNSPECIFIED 01/13/2020 HERMELINDA CULLEN, LAUREL J Ot J44. 9 CHRONIC OBSTRUCTIVE PULMONARY DISEASE, U 01/13/2020 HERMELINDA CULLEN, LAUREL J Ot K21. 9 GASTRO-ESOPHAGEAL REFLUX DISEASE WITHOUT 01/13/2020 HERMELINDA CULLEN, LAUREL J Ot M19. 91 PRIMARY OSTEOARTHRITIS, UNSPECIFIED SITE 01/13/2020 HERMELINDA CULLEN, LAUREL J Ot M79. 7 FIBROMYALGIA 01/13/2020 HERMELINDA CULLEN, LAUREL J Ot R07. 81 PLEURODYNIA 01/13/2020 HERMELINDA CULLEN, LAUREL J Ot R07. 9 CHEST PAIN, UNSPECIFIED 01/13/2020 HERMELINDA CULLEN, LAUREL J Ot Z87.891 PERSONAL HISTORY OF NICOTINE DEPENDENCE 01/13/2020 LAUREL SHEN MD Ot E66. 9 OBESITY, UNSPECIFIED 01/13/2020 HERMELINDA CULLEN, LAUREL J Ot E78. 00 PURE HYPERCHOLESTEROLEMIA, UNSPECIFIED 01/13/2020 HERMELINDA CULLEN, LAUREL J Ot F31. 9 BIPOLAR DISORDER, UNSPECIFIED 01/13/2020 HERMELINDA CULLEN, LAUREL Velasco Ot F41. 9 ANXIETY DISORDER, UNSPECIFIED 01/13/2020 HERMELINDA CULLEN, LAUREL J Ot G47. 30 SLEEP APNEA, UNSPECIFIED 01/13/2020 HERMELINDA CULLEN, LAUREL J Ot J44. 9 CHRONIC OBSTRUCTIVE PULMONARY DISEASE, U 01/13/2020 HERMELINDA CULLEN, LAUREL J Ot K21. 9 GASTRO-ESOPHAGEAL REFLUX DISEASE WITHOUT 01/13/2020 HERMELINDA CULLEN, LAUREL J Ot M19. 91 PRIMARY OSTEOARTHRITIS, UNSPECIFIED SITE 01/13/2020 HERMELINDA CULLEN, LAUREL J Ot M79. 7 FIBROMYALGIA 01/13/2020 HERMELINDA CULLEN, LAUREL J Ot R07. 81 PLEURODYNIA 01/13/2020 HERMELINDA CULLEN, LAUREL J Ot R07. 9 CHEST PAIN, UNSPECIFIED 01/13/2020 HERMELINDA CULLEN, LAUREL J Ot Z87.891 PERSONAL HISTORY OF NICOTINE DEPENDENCE 03/09/2020 REBEKA, OLIVA 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 Ot B35.4 TINEA CORPORIS 03/09/2020 REBEKA, OLIVA 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 Ot E11.9 TYPE 2 DIABETES MELLITUS WITHOUT COMPLIC 03/09/2020 REBEKA, OLIVA 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 Ot E66.9 OBESITY, UNSPECIFIED 03/09/2020 REBEKA, OLIVA 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 Ot F31.9 BIPOLAR DISORDER, UNSPECIFIED 03/09/2020 REBEKA, OLIVA 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 Ot F41.9 ANXIETY DISORDER, UNSPECIFIED 03/09/2020 REBEKA, OLIVA VASQUESP Ot G89.29 OTHER CHRONIC PAIN 03/09/2020 REBEKA, OLIVA VASQUESP Ot J44.9 CHRONIC OBSTRUCTIVE PULMONARY DISEASE, U 03/09/2020 REBEKAOLIVA GallegosP Ot K21.9 GASTRO-ESOPHAGEAL REFLUX DISEASE WITHOUT 03/09/2020 REBEKAOLIVA GallegosP Ot M54.9 DORSALGIA, UNSPECIFIED 03/09/2020 REBEKAOLIVA GallegosP Ot M79.7 FIBROMYALGIA 03/09/2020 REBEKAOLIVA GallegosP Ot N61.1 ABSCESS OF THE BREAST AND NIPPLE 03/09/2020 REBEKA, OLIVA VASQUESP Ot Z68.26 BODY MASS INDEX (BMI) 26.0-26.9, ADULT 03/09/2020 REBEKAOLIVA GallegosP Ot Z79.51 SNF (CURRENT) USE OF INHALED STERO 03/09/2020 REBEKAOLIVA GallegosP Ot Z79.52 SNF (CURRENT) USE OF SYSTEMIC STER 03/09/2020 REBEKAOLIVA GallegosP Ot Z79.84 SNF (CURRENT) USE OF ORAL HYPOGLYC 03/09/2020 REBEKAOLIVA Gallegos 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 Ot Z79.891 PIPE FOREMAN (CURRENT) USE OF OPIATE ANALGE 03/09/2020 REBEKAOLIVA Gallegos 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 Ot Z87.891 PERSONAL HISTORY OF NICOTINE DEPENDENCE 03/09/2020 REBEKAOLIVA GallegosP Ot Z88.0 ALLERGY STATUS TO PENICILLIN 03/09/2020 REBEKAOLIVA Gallegos 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 Ot Z88.1 ALLERGY STATUS TO OTHER ANTIBIOTIC AGENT 03/09/2020 REBEKAOLIVA GallegosP Ot Z88.8 ALLERGY STATUS TO [facility] DRUG/MEDS/BIOL SUB 03/09/2020 REBEKAOLIVA Gallegos 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 Ot Z91.041 RADIOGRAPHIC DYE ALLERGY STATUS 03/09/2020 REBEKAOLIVA Gallegos 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 Ot Z91.120 PT INTENTL UNDRDOSE OF MEDS REGIMEN DUE 03/09/2020 REBEKAOLIVA Gallegos 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 Ot Z96.652 PRESENCE OF LEFT ARTIFICIAL KNEE JOINT 03/13/2020 REBEKAOLIVA Gallegos 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 Ot B35.4 TINEA CORPORIS 03/13/2020 REBEKAOLIVA Gallegos 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 Ot E11.9 TYPE 2 DIABETES MELLITUS WITHOUT COMPLIC 03/13/2020 REBEKAOLIVA GallegosP Ot E66.9 OBESITY, UNSPECIFIED 03/13/2020 REBEKA, OLIVA 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 Ot F31.9 BIPOLAR DISORDER, UNSPECIFIED 03/13/2020 REBEKA, OLIVA 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 Ot F41.9 ANXIETY DISORDER, UNSPECIFIED 03/13/2020 REBEKA, OLIVA 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 Ot J44.9 CHRONIC OBSTRUCTIVE PULMONARY DISEASE, U 03/13/2020 REBEKA, OLIVA 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 Ot K21.9 GASTRO-ESOPHAGEAL REFLUX DISEASE WITHOUT 03/13/2020 REBEKA, OLIVA 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 Ot N61.1 ABSCESS OF THE BREAST AND NIPPLE 03/13/2020 REBEKA, OLIVA 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 Ot Z68.26 BODY MASS INDEX (BMI) 26.0-26.9, ADULT 03/13/2020 REBEKA, OLIVA 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 Ot Z79.51 SNF (CURRENT) USE OF INHALED STERO 03/13/2020 REBEKA, OLIVA 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 Ot Z79.52 PIPE FOREMAN (CURRENT) USE OF SYSTEMIC STER 03/13/2020 REBEKA, OLIVA 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 Ot Z79.84 SNF (CURRENT) USE OF ORAL HYPOGLYC 03/13/2020 REBEKA, OLIVA 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 Ot Z87.891 PERSONAL HISTORY OF NICOTINE DEPENDENCE 03/13/2020 REBEKA, OLIVA 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 Ot Z88.0 ALLERGY STATUS TO PENICILLIN 03/13/2020 REBEKA, OLIVA 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 Ot Z88.1 ALLERGY STATUS TO OTHER ANTIBIOTIC AGENT 03/13/2020 REBEKA, OLIVA 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 Ot Z88.8 ALLERGY STATUS TO OT DRUG/MEDS/BIOL SUB 03/13/2020 REBEKA, OLIVA 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 Ot Z91.041 RADIOGRAPHIC DYE ALLERGY STATUS 03/13/2020 REBEKA, OLIVA 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 Ot Z96.652 PRESENCE OF LEFT ARTIFICIAL KNEE JOINT 03/22/2020 REBEKA, OLIVA 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 Ot B35.4 TINEA CORPORIS 03/22/2020 REBEKA, OLIVA 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 Ot E11.9 TYPE 2 DIABETES MELLITUS WITHOUT COMPLIC 03/22/2020 REBEKA, OLIVA 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 Ot E66.9 OBESITY, UNSPECIFIED 03/22/2020 RBEEKA, OLIVA 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 Ot F31.9 BIPOLAR DISORDER, UNSPECIFIED 03/22/2020 REBEKA, OLIVA 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 Ot F41.9 ANXIETY DISORDER, UNSPECIFIED 03/22/2020 REBEKA, OLIVA 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 Ot G89.29 OTHER CHRONIC PAIN 03/22/2020 REBEKA, OLIVA 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 Ot J44.9 CHRONIC OBSTRUCTIVE PULMONARY DISEASE, U 03/22/2020 REBEKA, OLIVA 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 Ot K21.9 GASTRO-ESOPHAGEAL REFLUX DISEASE WITHOUT 03/22/2020 REBEKA, OLIVA 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 Ot M54.9 DORSALGIA, UNSPECIFIED 03/22/2020 REBEKA, OLIVA 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 Ot M79.7 FIBROMYALGIA 03/22/2020 REBEKA, OLIVA 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 Ot N61.1 ABSCESS OF THE BREAST AND NIPPLE 03/22/2020 REBEKA, OLIVA 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 Ot Z68.26 BODY MASS INDEX (BMI) 26.0-26.9, ADULT 03/22/2020 REBEKA, OLIVA 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 Ot Z79.51 SNF (CURRENT) USE OF INHALED STERO 03/22/2020 REBEKA, OLIVA 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 Ot Z79.52 PIPE FOREMAN (CURRENT) USE OF SYSTEMIC STER 03/22/2020 REBEKA, OLIVA 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 Ot Z79.84 SNF (CURRENT) USE OF ORAL HYPOGLYC 03/22/2020 REBEKA, OLIVA 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 Ot Z79.891 SNF (CURRENT) USE OF OPIATE ANALGE 03/22/2020 REBEKA, OLIVA 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 Ot Z87.891 PERSONAL HISTORY OF NICOTINE DEPENDENCE 03/22/2020 REBEKA, OLIVA 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 Ot Z88.0 ALLERGY STATUS TO PENICILLIN 03/22/2020 REBEKA, OLIVA 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 Ot Z88.1 ALLERGY STATUS TO OTHER ANTIBIOTIC AGENT 03/22/2020 REBEKA, OLIVA 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 Ot Z88.8 ALLERGY STATUS TO OTH DRUG/MEDS/BIOL SUB 03/22/2020 REBEKA, OLIVA 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 Ot Z91.041 RADIOGRAPHIC DYE ALLERGY STATUS 03/22/2020 REBEKA, OLIVA 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 Ot Z96.652 PRESENCE OF LEFT ARTIFICIAL KNEE JOINT 03/22/2020 REBEKA, OLIVA 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 Ot B35.4 TINEA CORPORIS 03/22/2020 RBEEKA, OLIVA 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 Ot E11.9 TYPE 2 DIABETES MELLITUS WITHOUT COMPLIC 03/22/2020 REBEKA, OLIVA 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 Ot E66.9 OBESITY, UNSPECIFIED 03/22/2020 REBEKA, OLIVA 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 Ot F31.9 BIPOLAR DISORDER, UNSPECIFIED 03/22/2020 REBEKA, OLIVA 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 Ot F41.9 ANXIETY DISORDER, UNSPECIFIED 03/22/2020 REBEKA, OLIVA 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 Ot G89.29 OTHER CHRONIC PAIN 03/22/2020 REBEKA, OLIVA 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 Ot J44.9 CHRONIC OBSTRUCTIVE PULMONARY DISEASE, U 03/22/2020 REBEKA, OLIVA 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 Ot K21.9 GASTRO-ESOPHAGEAL REFLUX DISEASE WITHOUT 03/22/2020 REBEKA, OLIVA VASQUESP Ot M54.9 DORSALGIA, UNSPECIFIED 03/22/2020 REBEKA, OLIVA VASQUESP Ot M79.7 FIBROMYALGIA 03/22/2020 REBEKA, OLIVA VASQUESP Ot N61.1 ABSCESS OF THE BREAST AND NIPPLE 03/22/2020 REBEKA, OLIVA VASQUESP Ot Z68.26 BODY MASS INDEX (BMI) 26.0-26.9, ADULT 03/22/2020 REBEKA, OLIVA VASQUESP Ot Z79.51 PIPE FOREMAN (CURRENT) USE OF INHALED STERO 03/22/2020 REBEKA, OLIVA 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 Ot Z79.52 PIPE FOREMAN (CURRENT) USE OF SYSTEMIC STER 03/22/2020 REBEKA, OLIVA VASQUESP Ot Z79.84 SNF (CURRENT) USE OF ORAL HYPOGLYC 03/22/2020 REBEKA, OLIVA 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 Ot Z79.891 PIPE FOREMAN (CURRENT) USE OF OPIATE ANALGE 03/22/2020 REBEKA, OLIVA 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 Ot Z87.891 PERSONAL HISTORY OF NICOTINE DEPENDENCE 03/22/2020 REBEKA, OLIVA 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 Ot Z88.0 ALLERGY STATUS TO PENICILLIN 03/22/2020 REBEKA, OLIVA 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 Ot Z88.1 ALLERGY STATUS TO OTHER ANTIBIOTIC AGENT 03/22/2020 REBEKA, OLIVA 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 Ot Z88.8 ALLERGY STATUS TO OTH DRUG/MEDS/BIOL SUB 03/22/2020 REBEKA, OLIVA 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 Ot Z91.041 RADIOGRAPHIC DYE ALLERGY STATUS 03/22/2020 REBEKA, OLIVA 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 Ot Z91.120 PT INTENTL UNDRDOSE OF MEDS REGIMEN DUE 03/22/2020 REBEKA, OLIVA 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 Ot Z96.652 PRESENCE OF LEFT ARTIFICIAL KNEE JOINT 03/27/2020 GELLENDER DO, EDI Christianson Ot Z12.31 ENCNTR SCREEN MAMMOGRAM FOR MALIGNANT NE 03/27/2020 NICOLASA CULLEN, KISHA Justice Ot M75.112 INCOMPLETE ROTATR-CUFF TEAR/RUPTR OF L S 03/27/2020 GELLENDER DOEDI Ot J18.9 PNEUMONIA, UNSPECIFIED ORGANISM 03/27/2020 GELLENDER DOEDI Ot J40 BRONCHITIS, NOT SPECIFIED ACUTE OR CH 03/27/2020 KISHA BALDWIN MD Ot M75.102 UNSP ROTATR-CUFF TEAR/RUPTR OF LEFT SHOU 03/27/2020 KISHA BALDWIN MD Ot Z01.818 ENCOUNTER FOR OTHER PREPROCEDURAL EXAMIN 03/27/2020 KISHA BALDWIN MD Ot Z11.2 ENCOUNTER FOR SCREENING FOR OTHER BACTER 03/27/2020 KISHA CARRILLO MD Ot R13.19 OTHER DYSPHAGIA 03/27/2020 KISHA CARRILLO MD Ot R49 .0 DYSPHONIA 03/27/2020 KISHA CARRILLO MD Ot R13.10 DYSPHAGIA, UNSPECIFIED 03/27/2020 GELLENDER DO, EDI Christianson Ot R07.81 PLEURODYNIA 03/27/2020 MAJOR GIPSON APRN Ot J30.9 ALLERGIC RHINITIS, UNSPECIFIED 03/27/2020 MAJOR GIPSON APRN Ot R06.02 SHORTNESS OF BREATH 03/27/2020 TRINITY DOZAHIRA Ot E66. 01 MORBID (SEVERE) OBESITY DUE TO EXCESS CA 03/27/2020 TRINITY DOZAHIRA Ot J30. 9 ALLERGIC RHINITIS, UNSPECIFIED 03/27/2020 TRINITY DOZAHIRA Ot R06. 02 SHORTNESS OF BREATH 03/27/2020 TRINITY DOZAHIRA Ot E66. 01 MORBID (SEVERE) OBESITY DUE TO EXCESS CA 03/27/2020 TRINITY DO, ZAHIRA Kramer Ot J30. 9 ALLERGIC RHINITIS, UNSPECIFIED 03/27/2020 TRINITY DOZAHIRA Ot R06. 02 SHORTNESS OF BREATH 03/27/2020 TRINITY DOZAHIRA Ot R91. 1 SOLITARY PULMONARY NODULE 03/27/2020 GELLENDER DOEDI Ot N64.4 MASTODYNIA 03/27/2020 ZAHIRA PETERSEN DO Ot E66. 01 MORBID (SEVERE) OBESITY DUE TO EXCESS CA 03/27/2020 TRINITY DO, ZAHIRA Kramer Ot J30. 9 ALLERGIC RHINITIS, UNSPECIFIED 03/27/2020 TRINITY DO, ZAHIRA Kramer Ot R06. 02 SHORTNESS OF BREATH 03/27/2020 GELLENDER DO, EDI Christianson Ot R10.12 LEFT UPPER QUADRANT PAIN 03/27/2020 GELLENDER DO, EDI Christianson Ot R10.11 RIGHT UPPER QUADRANT PAIN 03/27/2020 DONNA CULLEN, NICKY Lawrence Ot E11.6 5 TYPE 2 DIABETES MELLITUS WITH HYPERGLYCE 03/27/2020 NICKY THOMPSON MD Ot R10.1 1 RIGHT UPPER QUADRANT PAIN 03/27/2020 KYLAH CULLEN, PATRIC Saucedo Ot R10.31 RIGHT LOWER QUADRANT PAIN 03/27/2020 CECELIA CULLEN, M KATIE Ot E11 .9 TYPE 2 DIABETES MELLITUS WITHOUT COMPLIC 03/27/2020 CECELIA CULLEN, Nia WILSON Ot E78 .5 HYPERLIPIDEMIA, UNSPECIFIED 03/27/2020 CECELIA CULLEN, M KATIE Silverman J44 .9 CHRONIC OBSTRUCTIVE PULMONARY DISEASE, U 03/27/2020 CECELIA CULLEN, Nia WILSON Ot R07 .9 CHEST PAIN, UNSPECIFIED 03/27/2020 CECELIA CULLEN, M KATIE Ot E11 .9 TYPE 2 DIABETES MELLITUS WITHOUT COMPLIC 03/27/2020 CECELIA CULLEN, Nia WILSON Ot E78 .5 HYPERLIPIDEMIA, UNSPECIFIED 03/27/2020 CECELIA CULLEN, M KATIE Silverman J44 .9 CHRONIC OBSTRUCTIVE PULMONARY DISEASE, U 03/27/2020 CECELIA CULLEN, Nia WILSON Ot R07 .9 CHEST PAIN, UNSPECIFIED 03/27/2020 MAJOR GIPSON APRN Ot R06.02 SHORTNESS OF BREATH 03/27/2020 MAJOR GIPSON BONUS CLERK Ot M79.604 PAIN IN RIGHT LEG 03/27/2020 MAJOR GIPSON BONUS CLERK Ot M79.605 PAIN IN LEFT LEG 03/27/2020 MAJOR GIPSON BONUS CLERK Ot R06.00 DYSPNEA, UNSPECIFIED 03/27/2020 MAJOR GIPSON BONUS CLERK Ot R22.43 LOCALIZED SWELLING, MASS AND LUMP, LOWER 03/27/2020 NICKY THOMPSON MD Ot Z12.3 1 ENCNTR SCREEN MAMMOGRAM FOR MALIGNANT NE 03/27/2020 NICKY THOMPSON MD Ot N63.2 3 UNSPECIFIED LUMP IN THE LEFT BREAST, LOW 03/27/2020 SLY HARRIS APRN Ot R10.11 RIGHT UPPER QUADRANT PAIN 03/27/2020 SLY HARRIS APRN Ot Z90.49 ACQUIRED ABSENCE OF OTHER SPECIFIED PART 03/27/2020 NICKY THOMPSON MD, Ot Z00.0 0 ENCNTR FOR GENERAL ADULT MEDICAL EXAM W/ 03/27/2020 NICKY THOMPSON MD, Ot Z12.3 1 ENCNTR SCREEN MAMMOGRAM FOR MALIGNANT NE Procedures Code Description Performed By Per formed On [id number] RE PLACE OF L KNEE JT WITH [...] culture - 06/09/16 16:24 Bacterial urine culture [id number] NRG COLONY COUNT <10,000 NRG FTX;REPORTABLE SENSITIVITY [...] INFLUENZA A AND B ANTIGENS BY IA [employer] [facility] Comprehensive metabolic panel - 04/30/17 15:00 Serum [...] ALT (SGPT) 25 IU/L 0-32 Microalb/Creat Ratio, Randm Ur - 7 10:30 Creatinine, Urine 207.5 [...] 11/20/17 11:24 MRSA SCREEN RESULT MRSA ISOLATED NR [...] ABO+Rh group OP NRG Transfusion band number [id number] NRG Blood group antibody screen NEGATIVE NR [...] 70-110 Whole blood hemoglobin and hematocrit pa irn - 07/17/18 04:20 Venous blood hemoglobin measurement [...] A and B antigen detectio n - 01/31/19 15:45 FLU RESULT NEGATIVE FOR INFLUENZA A [...] 14:59 Bacteria identification in wound by culture [id number] NRG FREE TEXT EXTERNAL NO BETA [...] Status Pt. Type Provider Facility Loc./Unit Complaint [id number] 10/10/2016 10:05:00 Document Registration [id number] 07/23/2017 13:06:00 Document Registration [id number] 08/27/2016 08:35:00 Document Registration [id number] 10/31/2016 03:07:00 Document Registration [id number] 03/27/2020 17:55:00 20:26:00 DIS Emergency LUNA LEGER MD [facility] ER R SIDE ABD PAIN [id number] 03/09/2020 11:25:00 12:51:00 DIS Emergency OLIVA STALEY [facility] ER MRSA [id number] 01/05/2020 22:44:00 00:06:00 DIS Emergency LAUREL SHEN MD [facility] ER CHEST PAIN,SOB [id number] 11/10/2019 14:05:00 15:09:00 DIS Emergency JANELLE ESPITIA APRN [facility] ER SORE THROAT;COUGH [id number] 09/28/2019 10:13:00 13:09:00 DIS Emergency JANELLE ESPITIA APRN [facility] ER ABD PAIN/KNOT NAUSEA [id number] 08/19/2019 10:38:00 23:59:59 CLS Outpatient NICKY THOMPSON MD [facility] RAD SCREENING [id number] 08/05/2019 16:13:00 18:28:00 DIS Emergency KOROMA DO, ARELY L [facility] ER FACIAL PRESSURE,BODY AC HES [id number] 06/30/2019 07:55:00 12:15:00 DIS Outpatient KISHA BALDWIN MD [facility] LEFT KNEE ADHESIVE CAP SULITIS [id number] 06/24/2019 12:18:00 12:40:00 DIS Outpatient KISHA BALDWIN MD [facility] PREOP LEFT KNEE ADHESIVE CAP SULTITIS [id number] 05/06/2019 13:44:00 15:44:00 DIS Emergency GHASSAN HARVEY Via [facility] ER POST OP COMPLICATION [id number] 01/06/2019 10:05:00 13:05:00 DIS Outpatient KISHA BALDWIN MD Via [facility] SDC LEFT HIP OSTEOARTHRITI S [id number] 01/04/2019 12:14:00 13:00:00 DIS Outpatient KISHA BALDWIN MD Via [facility] PREOP LEFT HIP OSTEOARTHRITI S [id number] 12/26/2018 18:02:00 20:59:00 DIS Emergency OLIVA STALEY [facility] ER SORE THROAT/COUGH/CHILL S [id number] 12/22/2018 09:54:00 13:15:00 DIS Outpatient STEPHANE KIMBLE DO Via [facility] ENDO BLOOD IN STOOL/LUQ AND LLQ ABD PAIN [id number] 12/17/2018 09:28:00 10:06:00 DIS Outpatient STEPHANE KIMBLE DO Via [facility] PREOP COLONOSCOPY/EGD [id number] 11/29/2018 09:15:00 12:20:00 DIS Emergency CHRISTO VIDAL MD [facility] ER COUGH,COLD SYMPTOMS [id number] 10/29/2018 15:16:00 16:48:00 DIS Emergency JANELLE ESPITIA APRN [facility] ER COUGH,CHEST TIGHTNESS [id number] 07/15/2018 06:08:00 10:10:00 DIS Inpatient KISHA BALDWIN MD Via [facility] 4TH PRIMARY OSTEOARTHRITIS [id number] 07/09/2018 11:46:00 12:30:00 DIS Outpatient KISHA BALDWIN MD Via [facility] PREOP PRIMARY OSTEOARTHRITIS [id number] 06/15/2018 14:10:00 018 23:59:59 CLS Outpatient SLY HARRIS BONUS CLERK [facility] RAD RUQ ABDOMINAL P AIN [id number] 05/06/2018 12:00:00 018 23:59:59 C[facility] L ATERAL MENISCUS TEAR [id number] 04/20/2018 10:43:00 018 14:35:00 DIS Outpatient SAIRA CULLEN, VICTORIA Kramer [facility] ENDO ABNORMAL CT [id number] 04/13/2018 06:06:00 018 14:54:00 DIS Outpatient SAIRA CULLEN, VICTORIA Kramer [facility] PREOP COLONOSCOPY [id number] 04/01/2018 11:13:00 018 13:31:00 DIS Emergency MURALI ORLANDO DO Vi [facility] ER L SIDE PAIN [id number] 12/05/2017 13:18:00 018 15:18:00 DIS Emergency JANELLE ESPITIA BONUS CLERK Via [facility] ER CP,TIGHTENING IN CHEST [id number] 11/26/2017 07:41:00 018 12:15:00 DIS Outpatient KISHA BALDWIN MD Via [facility] RIGHT KNEE CHONDROMALA RENARD [id number] 11/20/2017 11:13:00 018 11:30:00 DIS Outpatient KISHA BALDWIN MD Via [facility] PREOP RIGHT KNEE CHONDROMALA RENARD [id number] 11/11/2017 12:46:00 018 23:59:59 CLS Outpatient NICKY THOMPSON MD Via [facility] RAD BREAST PAIN LT [id number] 11/10/2017 09:15:00 018 23:59:59 CLS Preadmit NICKY THOMPSON MD, V ia [facility] RAD N64.4 BREAST PAIN LT [id number] 09/13/2017 15:03:00 017 17:36:00 DIS Emergency REBEKAOLIVA Gallegos 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 [facility] ER CHILLS,SORE THROAT,SOB [id number] 08/10/2017 11:29:00 017 12:54:00 DIS Emergency JANELLE ESPITIA APRN [facility] ER CP [id number] 05/26/2017 09:37:00 017 23:59:59 CLS Outpatient DONNA CULLEN, NICKY Lawrence [facility] RAD SCREENING Z12.31 [id number] 05/08/2017 08:06:00 017 23:59:59 CLS Outpatient MAJOR GIPSON APRN [facility] RAD DYSPNEA,LEG AUTUMN N [id number] 05/07/2017 17:59:00 017 18:57:00 DIS Emergency JANELLE ESPITIA APRN [facility] ER PT FELL/LT ARM INJ [id number] 04/30/2017 14:21:00 017 15:53:00 DIS Emergency DAVID CULLEN, LAYTON T [facility] ER NAUSEA/FEVER [id number] 04/29/2017 15:19:00 017 23:59:59 CLS Outpatient MAJOR GIPSON APRN [facility] RAD SOB [id number] 03/05/2017 08:48:00 017 12:30:00 DIS Out[facility] CH[facility]DROMAL[facility]IA PATELLA RIGHT KNEE [id number] 02/28/2017 10:26:00 017 10:57:00 DIS Outpatient KISHA BALDWIN MD Via [facility] PREOP RIGHT KNEE SCOPE [id number] 02/09/2017 08:27:00 017 10:43:00 DIS Emergency LAUREL SHEN MD Via [facility] ER R KNEE TO FOOT PAIN [id number] 01/30/2017 20:20:00 017 21:57:00 DIS Emergency JANELLE ESPITIA APRN Via [facility] ER POSSIBLE BLOOD CLOT IN R LEG [id number] 11/28/2016 11:41:00 017 23:59:59 CLS Outpatient CECELIA CULLEN, Nia WILSON [facility] CARD COPD,CHEST PAIN,DM [id number] 11/27/2016 12:52:00 017 23:59:59 CLS Outpatient CECELIA CULLEN, Nia WILSON [facility] CARD COPD,CHEST PAIN,DM,HLP [id number] 11/22/2016 14:41:00 017 16:20:00 DIS Emergency RAQUEL ROLDAN [facility] ER YEAST INFECTION [id number] 11/04/2016 09:43:00 017 23:59:59 CLS Outpatient KYLAH CULLEN, PATRIC Saucedo [facility] RAD RIGHT LOWER QUAD PAIN [id number] 11/03/2016 09:43:00 017 11:33:00 DIS Emergency YOUNG CULLEN, CHRISTO S [facility] ER CHEST PAIN/SORE THROAT [id number] 10/16/2016 15:43:00 017 18:41:00 DIS Emergency LUNA LEGER MD [facility] ER ABD PAIN [id number] 09/19/2016 11:20:00 016 17:40:00 DIS Outpatient STEPHANE KIMBLE DO Via [facility] SDC DYSKNESIA [id number] 09/16/2016 05:48:00 016 14:05:00 DIS Outpatient STEPHANE KIMBLE DO Via [facility] PREOP DYSKNESIA [id number] 09/13/2016 04:41:00 016 08:35:00 DIS Emergency DAVID CULLEN, LAYTON Spencer [facility] ER SORE THROAT,CONSTIPATION,CHEST PAIN [id number] 09/03/2016 09:53:00 016 23:59:59 CLS Outpatient DONNA CULLEN, NICKY Lawrence [facility] RAD RUQ PAIN [id number] 08/24/2016 15:39:00 17:34:00 DIS Emergency JANELLE ESPITIA APRN [facility] ER BACK PAIN [id number] 08/15/2016 10:42:00 12:18:00 DIS Emergency JANELLE ESPITIA APRN [facility] ER SOA [id number] 08/03/2016 13:42:00 15:35:00 DIS Emergency YOUNG CULLEN, CHRISTO S [facility] ER SORE THROAT/PAINFUL TON DUSTY/THROAT CLOSING [id number] 08/01/2016 12:59:00 23:59:59 CLS Outpatient ZAHIRA PETERSEN DO Via [facility] RAD LUNG NODULE,SOB,MORBID OBESITY,ALLERGIC RHINITIS [id number] 07/18/2016 14:05:00 15:11:00 DIS Emergency JANELLE ESPITIA APRN [facility] ER CHEST PAIN [id number] 07/11/2016 07:47:00 23:59:59 CLS Outpatient EDI FAUSTIN DO [facility] RAD RUQ ABD PAIN [id number] 07/02/2016 12:50:00 16:44:00 DIS Emergency AFRICA CULLEN, LUNA Christianson [facility] ER LOWER BACK PAIN /VOMITING [id number] 06/28/2016 12:40:00 23:59:59 CLS Outpatient EDI FAUSTIN DO Via [facility] RAD LOWER ABD PAIN, HURTS TO PALPITATE WORSE ON LT SIDE [id number] 06/24/2016 08:15:00 23:59:59 CLS Preadmit ZAHIRA PETERSEN DO Via [facility] PULM SOB,DYSPNEA,MORBID OBESITY,ALLERGIC RHINITIS [id number] 04/09/2016 09:00:00 00:01:00 DIS Outpatient ZAHIRA PETERSEN DO Via [facility] PULM SOB,DYSPNEA,MORBID OBESITY,ALLERGIC RHINITIS [id number] 06/18/2016 15:18:00 16:35:00 DIS Emergency JANELLE ESPITIA APRN [facility] ER ABD PAIN,NAUSEA [id number] 06/09/2016 15:11:00 20:36:00 DIS Emergency LAYTON HERNANDEZ MD Via [facility] ER LIGHT HEADED/DI ZZY/BACK PAIN [id number] 05/24/2016 08:43:00 23:59:59 CLS Outpatient EDI FAUSTIN DO Via [facility] RAD SEVERE L BREAST PAIN [id number] 05/15/2016 11:59:00 13:58:00 DIS Emergency LUNA LEGER MD Via [facility] ER BACK/LEFT BREAS T PAIN [id number] 05/08/2016 09:48:00 15:15:00 DIS Outpatient KISHA BALDWIN MD Via [facility] SDC LEFT KNEE CHONDROMALAS IA [id number] 05/01/2016 12:54:00 16:15:00 DIS Outpatient KISHA BALDWIN MD Via [facility] PREOP LEFT KNEE CHONDROMALAC IA [id number] 03/27/2016 10:23:00 13:05:00 DIS Emergency LUNA LEGER MD [facility] ER CHEST PAIN [id number] 02/28/2016 08:51:00 23:59:59 CLS Outpatient ZAHIRA PETERSEN DO Via [facility] LAB ALLERGIC RHINITIS, SOB DYSPNEA [id number] 02/21/2016 21:45:00 02:03:00 DIS Emergency RAQUEL ROLDAN [facility] ER BACK PAIN [id number] 02/14/2016 08:34:00 13:15:00 DIS Outpatient KISHA BALDWIN MD Via [facility] SDC RIGHT INDEX FINGER CYS T [id number] 02/06/2016 14:44:00 16:11:00 DIS Outpatient KISHA BALDWIN MD Via [facility] PREOP RIGHT INDEX FINGER CYS T [id number] 01/26/2016 14:10:00 17:00:00 DIS Emergency SIERRA GOMEZ MD Via [facility] ER CHEST PAIN/LEFT SIDE NU MBNESS [id number] 01/24/2016 15:04:00 23:59:59 CLS Outpatient MAJOR GIPSON APRN [facility] RT SOA, DYSPNEA [id number] 01/19/2016 15:25:00 18:25:00 DIS Emergency JANELLE ESPITIA APRN [facility] ER LEFT SIDED BODY PAIN [id number] 12/20/2015 10:03:00 15:35:00 DIS Outpatient KISHA BALDWIN MD Via [facility] SDC RIGHT FINGER CYST [id number] 12/19/2015 16:48:00 23:59:59 CLS Outpatient EDI FAUSTIN DO Via [facility] RAD LEFT RIB PAIN [id number] 12/16/2015 09:03:00 016 10:50:00 DIS Emergency CHELSI GARCIA MD [facility] ER CHEST WALL/BACK PAIN [id number] 12/15/2015 10:52:00 15:44:00 DIS Outpatient KISHA BALDWIN MD Via [facility] PREOP CYST RIGHT FINGER [id number] 11/29/2015 09:37:00 23:59:59 CLS Outpatient KISHA CARRILLO MD Via [facility] RAD DSYPHAGIA [id number] 11/18/2015 12:02:00 12:30:00 DIS Emergency CHELSI GARCIA MD [facility] ER SOA/COUGH/CHEST CONGEST ION [id number] 11/13/2015 10:57:00 016 23:59:59 CLS Outpatient KISHA CARRILLO MD [facility] RAD DYSPHAGIA OTHER, HOARSE NESS [id number] 11/09/2015 21:02:00 05:45:00 DIS Outpatient KISHA CARRILLO MD Via [facility] SLEEP CHRONIC OBSTRUCTIVE SLE EP APNEA [id number] 10/25/2015 06:55:00 11:38:00 DIS Outpatient KISHA BALDWIN MD [facility] SDC LEFT ROTATOR CUFF TEAR [id number] 10/20/2015 10:31:00 23:59:59 CLS Outpatient KISHA BALDWIN MD [facility] PREOP LEFT SHOULDER TORN ROT ATOR CUFF [id number] 10/14/2015 14:28:00 16:16:00 DIS Emergency DAVID CULLEN, LAYTON Spencer [facility] ER CHEST PAIN [id number] 09/24/2015 08:45:00 10:53:00 DIS Emergency PATRICIA CULLEN, SIERRA Brady [facility] ER COUGH CONGESTION RIB PA IN [id number] 09/18/2015 10:53:00 23:59:59 CLS Outpatient EDI FAUSTIN DO [facility] RAD BRONCHITIS [id number] 09/14/2015 16:38:00 18:52:00 DIS Emergency JANELLE ESPITIA APRN [facility] ER CHEST WALL PAIN, SORE T HROAT, COUGH [id number] 08/22/2015 11:40:00 23:59:59 CLS Outpatient EDI FAUSTIN DO [facility] RAD PNEUMONIA [id number] 08/12/2015 14:32:00 16:26:00 DIS Emergency JANELLE ESPITIA APRN [facility] ER DIFF BREATHING/COUGH [id number] 08/08/2015 12:17:00 23:59:59 CLS Outpatient KISHA BALDWIN MD [facility] RAD RTC TEAR [id number] 07/27/2015 10:36:00 13:12:00 DIS Emergency JANELLE ESPITIA BONUS CLERK [facility] ER CHEST PAIN [id number] 07/14/2015 11:29:00 23:59:59 CLS Outpatient EDI FAUSTIN DO [facility] RAD SCREENING [id number] 06/13/2015 13:07:00 14:53:00 DIS Emergency JANELLE ESPITIA BONUS CLERK [facility] ER ABD PAIN [id number] 06/08/2015 20:58:00 21:58:00 DIS Emergency RAQUEL ROLDAN [facility] ER DROWSINESS,VAG ITCHING /IRRITATION [id number] 05/21/2015 12:06:00 13:10:00 DIS Emergency LUNA LEGER MD [facility] ER ALLERGIC REACTI ON [id number] 04/16/2015 21:00:00 09:50:00 DIS Inpatient ANEESHLUKAS LOUANDERS S [facility] SURGICAL UTI [id number] 04/09/2015 13:44:00 16:42:00 DIS Emergency RAQUEL ROLDAN [facility] ER FEVER [id number] 05/01/2018 13:39:00 Document Registration [id number] 03/01/2017 08:35:00 Document Registration [id number] 10/30/2016 08:40:00 Document Registration [id number] 10/07/2016 05:05:00 Document Registration [id number] 03/14/2020 13:20:00 03/14/2020 23:59: 59 CLS Outpatient NICKY THOMPSON [facility] [id number] 07/22/2017 09:40:00 Document Registration
== END 2020-03-27 20:26 | disposition home or self-care (01) ==
LOC: EDUNIT# 17:54 → ER 17:55
DX: R10.31 Right lower quadrant pain (principal); J44.9 Chronic obstructive pulmonary disease, unspecified; E78.00 Pure hypercholesterolemia, unspecified; G47.30 Sleep apnea, unspecified; Z88.0 Allergy status to penicillin; Z88.8 Allergy status to other drugs, medicaments and biological substances; Z79.899 Other long term (current) drug therapy; Z79.84 Long term (current) use of oral hypoglycemic drugs; Z79.52 Long term (current) use of systemic steroids; Z87.891 Personal history of nicotine dependence; K58.2 Mixed irritable bowel syndrome; G25.81 Restless legs syndrome; M19.90 Unspecified osteoarthritis, unspecified site; M79.10 Myalgia, unspecified site; M54.9 Dorsalgia, unspecified; E66.9 Obesity, unspecified; E11.9 Type 2 diabetes mellitus without complications; F41.9 Anxiety disorder, unspecified; F31.9 Bipolar disorder, unspecified; Z96.652 Presence of left artificial knee joint; Z68.41 Body mass index [BMI] 40.0-44.9, adult
CPT/HCPCS: 36415; 74176; 80053; 81000; 85025; 86141; 87088; 96361; 96374; 96375

== ENCOUNTER → 2020-03-30 | Outpatient (CLI) | payer MEDICARE, MEDICAID ==
[2020-03-30 16:59] LABS: HEMOGLOBIN 13.6 G/DL (11.5-16.0); MEAN PLATELET VOLUME 11.9 FL (7.4-10.4); RED CELL DISTRIBUTION WIDTH 14.1 % (10.0-14.5); WHITE BLOOD COUNT 9.9 10^3/uL (4.3-11.0)
[2020-03-30 17:07] LABS: ALBUMIN 4.2 GM/DL (3.2-4.5)
[2020-03-30 17:08] LABS: CHLORIDE 103 MMOL/L (98-107); POTASSIUM 4.3 MMOL/L (3.6-5.0); SODIUM 138 MMOL/L (135-145)
[2020-03-30 17:09] LABS: CALCIUM 9.8 MG/DL (8.5-10.1)
[2020-03-30 17:10] LABS: GLUCOSE 158 MG/DL (70-105); TOTAL PROTEIN 7.9 GM/DL (6.4-8.2)
[2020-03-30 17:11] LABS: CARBON DIOXIDE 22 MMOL/L (21-32)
[2020-03-30 17:12] LABS: BILIRUBIN,TOTAL 0.3 MG/DL (0.1-1.0)
[2020-03-30 17:14] LABS: ALKALINE PHOSPHATASE 99 U/L (40-136); CREATININE SERUM 0.89 MG/DL (0.60-1.30); GFR ESTIMATED > 60
[2020-03-30 17:15] LABS: BUN/CREATININE RATIO 13
[2020-03-30 17:17] LABS: ALANINE AMINOTRANSFERASE 48 U/L (0-55)
== END ==
LOC: LAB 16:42
PROVIDERS: ATTEND Surgery
DX: R10.31 Right lower quadrant pain (principal)
CPT/HCPCS: 36415; 80053; 85027; 86141

== ENCOUNTER → 2020-04-03 | Outpatient (CLI) | payer MEDICARE, MEDICAID ==
--- NOTE | 2020-04-03 15:33 | Diagnostic Imaging Report ---
PROCEDURE: US Non-ob pelvis comp/trans. TECHNIQUE: Multiple realtime grayscale images were obtained of the pelvis in various projections endovaginally. Transabdominal imaging was also performed. INDICATION: Pelvic pain. Patient has had prior hysterectomy and unilateral oophorectomy. FINDINGS: The uterus is surgically absent. Ovaries were not visualized and may be surgically absent as well. No pelvic mass or fluid collection is identified. IMPRESSION: Surgically absent uterus and ovaries. No pelvic mass or fluid collection is detected. Dictated by: Dictated on workstation # [id number]
== END ==
LOC: RAD 13:01
PROVIDERS: ATTEND Surgery
DX: R10.2 Pelvic and perineal pain (principal); R10.11 Right upper quadrant pain; Z90.710 Acquired absence of both cervix and uterus; Z90.721 Acquired absence of ovaries, unilateral
CPT/HCPCS: 76830; 76856

== ENCOUNTER → 2020-06-15 | Outpatient (CLI) | payer MEDICARE, MEDICAID ==
[~2020-06-15] MED LIST changes: -CETI10TA21 PO; +CETI10TA49 PO
--- NOTE | 2020-06-15 11:43 | Diagnostic Imaging Report ---
INDICATION: Lump in the left breast retroareolar region as well as pain in the left axilla. Sonographic interrogation of the area of lump as well as left axilla was performed. Left axilla is unremarkable. No mass is seen. In addition, 3:00 retroareolar region was evaluated at the area of patient's pain. No sonographic abnormality is seen. No solid or cystic mass is detected. IMPRESSION: BI-RADS Category 1 No sonographic abnormality is identified. Continued clinical and self breast exam is recommended to confirm stability of the areas of palpable abnormality. ACR BI-RADS Category 1: Negative. Dictated by: Dictated on workstation # [id number]
--- NOTE | 2020-06-15 13:27 | Diagnostic Imaging Report ---
INDICATION: Left breast lump. Correlation is made with prior mammogram from 08/19/2019 and 05/26/2017. 2-D and 3-D bilateral diagnostic mammography was performed with CAD. Scattered fibroglandular densities are identified bilaterally. A benign-appearing nodular densities in both breasts appears stable. There is extensive vascular calcifications in both breasts. No spiculated mass or malignant appearing microcalcifications are seen. Axillae are unremarkable. IMPRESSION: BI-RADS 0 No mammographic features suspicious for malignancy are identified. Even so, directed sonographic interrogation of the area of palpable abnormality in the left breast is recommended and will be performed today. ACR BI-RADS Category 0: Incomplete. (Needs additional imaging evaluation). Result letter will be mailed to the patient. Note: At least 10% of breast cancer is not imaged by mammography. Dictated by: Dictated on workstation # [id number]
== END ==
LOC: RAD 09:45
PROVIDERS: ATTEND Family Medicine
DX: Z12.31 Encounter for screening mammogram for malignant neoplasm of breast (principal); N63.20 Unspecified lump in the left breast, unspecified quadrant
CPT/HCPCS: 76642; 77066; G0279; 77062

== ENCOUNTER 2020-08-07 00:18 | Emergency (ER) | payer MEDICARE, MEDICAID ==
[~2020-08-07] VITALS: Ht 175 cm; Wt 121.0 kg
--- NOTE | 2020-08-07 01:09 | ED Back Pain ---
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 PT DENIES INJURY. NO OTHER C/O VOICED. Nursing Sepsis Screen: No Definite Risk Source of Information: Patient Exam Limitations: No Limitations History of Present Illness Date Seen by Provider: Aug 07, 2020 Time Seen by Provider: 00:54 Initial Comments Patient presents to the ER by private conveyance from home with chief complaint that about 3 hours ago when she went to lay down to go to bed she started getting some pain in her back radiating into her neck and her left shoulder. She rates the pain as a 10 out of 10. He has a history of lumbar back surgery. She says she was at an auction helping a friend move a bunch of stuff yesterday and thinks that maybe that's why she is so sore. She has not taken anything but an ibuprofen about for 5 hours ago. No other trauma. No numbness tingling loss of control of bowel or bladder or saddle anesthesia or weakness or falls. She is diabetic but has no hypertension, hyperlipidemia, history of coronary disease, history of family history of coronary disease, and she quit smoking 16 years ago. No chest pain. Allergies and Home Medications Allergies Coded Allergies: nickel (Verified Allergy, Intermediate, RASH, 01/06/19) doxycycline (Verified Allergy, Mild, HIVES, 01/06/19) Iodinated Contrast Media (Verified Allergy, Unknown, 01/06/19) cobalt (Verified Allergy, Unknown, Hives, 06/24/19) penicillin (Verified Allergy, Unknown, HAS RECEIVED ROCEPHIN, 06/30/19) rash Uncoded Allergies: hexachloride (Allergy, Unknown, Hives, 06/24/19) Home Medications Albuterol Sulfate 1 Puff Puff, 2 PUFF IH Q4H PRN for WHEEZING, (Reported) 1 PUFF = 90 MCG Baloxavir Marboxil 40 Mg Tablet, 40 MG PO DAILY Prescribed by: JANELLE ESPITIA on 11/10/19 1428 Fluoxetine HCl 40 Mg Capsule, 40 MG PO DAILY, (Reported) Fluticasone Propionate 9.9 Ml [place].susp, 1 SPRAY NS BID, (Reported) Fluticasone/Vilanterol 1 Each Blst.w.dev, 1 EACH IH DAILY, (Reported) Hydrocodone Bit/Acetaminophen 1 Each Tablet, 1 TAB PO Q4H PRN for PAIN-MODERATE Prescribed by: OLIVA HOUSE on 06/30/19 1055 Levofloxacin 500 Mg Tablet, 500 MG PO DAILY Prescribed by: ARELY KOROMA on 08/05/19 180 Metformin HCl 1,000 Mg Tablet, 1,000 MG PO BID, (Reported) Nystatin/Triamcinolone 15 Gm Cr, 1 TUBE TP TID apply thin layer to affected area three times daily Prescribed by: OLIVA STALEY on 03/09/20 1247 Pantoprazole Sodium 40 Mg Tablet.dr, 40 MG PO DAILY Prescribed by: STEPHANE KIMBLE on 12/22/18 1218 Prednisone 20 Mg Tab, 40 MG PO DAILY Prescribed by: ARELY KOROMA on 08/05/19 180 Prednisone 20 Mg Tab, 40 MG PO DAILY Prescribed by: JANELLE ESPITIA on 11/10/19 1504 Sulfamethoxazole/Trimethoprim 1 Each Tablet, 1 EACH PO BID Prescribed by: OLIVA STALEY on 03/09/20 124 Patient Home Medication List Home Medication List Reviewed: Yes Review of Systems Constitutional: No chills, No diaphoresis EENTM: No ear discharge, No ear pain Respiratory: No cough, No short of breath Cardiovascular: No Hx of Intervention, No palpitations Gastrointestinal: No abdominal pain, No nausea Genitourinary: No discharge, No dysuria Past Ozbethz-Jryscd-Awulgf Hx Patient Social History Alcohol Use: Denies Use Recreational Drug Use: No Smoking Status: Former Smoker Type Used: Cigarettes Former Smoker, Quit: May 01, 2008 2nd Hand Smoke Exposure: No Recent Foreign Travel: No Contact w/Someone Who Travel: No Recent Infectious Disease Expo: No Recent Hopitalizations: No Physical Abuse: No Sexual Abuse: No Mistreated: No Fear: No Immunizations Up To Date Tetanus Booster (TDap): Unknown PED Vaccines UTD: No Date of Pneumonia Vaccine: Mar 13, 2018 Date of Influenza Vaccine: Jul 06, 2018 Seasonal Allergies Seasonal Allergies: Yes Past Medical History Surgeries: Yes (bilat CTR, L KNEE x12, L shoulder, L TKR, back sx) Abdominal, Gallbladder, Hysterectomy, Oophorectomy, Orthopedic Respiratory: Yes (CPAP) Asthma, Sleep Apnea, COPD Currently Using CPAP: Yes Cardiac: Yes High Cholesterol Neurological: No Reproductive Disorders: No 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 [employer] History: Hysterectomy Sexually Transmitted Disease: No HIV/AIDS: No Genitourinary: Yes Kidney Infection, Bladder Infection, UTI-Chronic Gastrointestinal: Yes (INFLAMATION IN COLON, VENTRAL HERNIA) Gastroesophageal Reflux, Chronic Constipation, Chronic Diarrhea, Irritable Bowel Musculoskeletal: Yes (RESTLESS LEG SYNDROME) Arthritis, Fibromyalgia, Chronic Back Pain Endocrine: Yes (OBESITY) Diabetes, Non-Insulin dep HEENT: Yes (GLASSES) Loss of Vision: Bilateral Hearing Impairment: Denies Cancer: No Psychosocial: Yes Anxiety, Bipolar Integumentary: No Blood Disorders: No Adverse Reaction/Blood Tranf: No (N/A) Family Medical History Arthritis 19 MOTHER, Onset:Unknown Asthma 19 FATHER, Onset:Unknown Cataracts 19 MOTHER, Onset:Unknown Diabetes mellitus 19 MOTHER, Onset:Unknown FH: COPD (chronic obstructive pulmonary disease) 19 FATHER, Onset:Unknown Hypercholesterolemia 19 MOTHER MS (multiple sclerosis) G8 SISTER, Onset:Unknown Physical Exam Vital Signs Vital Signs - First Documented 08/07/20 00:28 Temp 36.8 Pulse 91 Resp 20 B/P (MAP) 150/94 (112) Pulse Ox 96 O2 Delivery Room Air Capillary Refill : Less Than 3 Seconds Height, Weight, BMI Height: 5'9.00" Weight: 288lbs. 0.0oz. 130.901703uo; 39.00 BMI Method:Stated General Appearance: No Apparent Distress, WD/WN HEENT: PERRL/EOMI, Pharynx Normal, Moist Mucous Membranes Neck: Full Range of Motion, Normal Inspection Cardiovascular: Regular Rate, Rhythm, No Edema, Normal Peripheral Pulses Respiratory: Chest Non Tender, Lungs Clear, Normal Breath Sounds, No Accessory Muscle Use, No Respiratory Distress Peripheral Pulses: 2+ Radial Pulses (R), 2+ Radial Pulses (L) Back: Vertebral Tenderness (midline tenderness in the thoracic spine re-creates all of her symptoms. Mild tenderness in the paraspinous cervical and thoracic muscles. Tenderness in the left trapezius but not in the shoulder joint.) Extremity: Normal Capillary Refill, Normal Inspection, Normal Range of Motion Neurologic/Psychiatric: Alert, Oriented x3, No Motor/Sensory Deficits, Normal Mood/Affect Skin: Normal Color, Warm/Dry Progress/Results/Core Measures Results/Orders My Orders Orders - LAUREL SHEN Cervical Spine 3 Views Or Less (08/07/20 01:02) Thoracic Spine, 2 Views Only (08/07/20 01:02) Lumbar Spine - 2-3 Views (08/07/20 01:02) Ketorolac Injection (Toradol Injection) (08/07/20 01:15) Orphenadrine Inj (Ed Only) (Norflex Inje (08/07/20 01:15) Medications Given in ED Current Medications Medications Dose Ordered Sig/Veronika Route Start Time Stop Time Status Last Admin Dose Admin Ketorolac Tromethamine 60 mg ONCE ONCE IM 08/07/20 01:15 08/07/20 01:16 DC 08/07/20 01:17 60 MG Orphenadrine Citrate 60 mg ONCE ONCE IM 08/07/20 01:15 08/07/20 01:16 DC 08/07/20 01:15 60 MG Vital Signs/I&O 08/07/20 00:28 Temp 36.8 Pulse 91 Resp 20 B/P (MAP) 150/94 (112) Pulse Ox 96 O2 Delivery Room Air Blood Pressure Mean: 112 Progress Progress Note #1: Time: 01:08 Progress Note This seems to be musculoskeletal related to her recent moving. Giving her some Norflex and Toradol and getting some plain films to rule out vertebral fractures. Progress Note #2: Time: 01:40 Progress Note No obvious vertebral fractures on plain films. Diagnostic Imaging Diagonstic Imaging: Xray Plain Films/CT/US/NM/MRI: c-spine, other (thoracic and lumbar spine films) Comments No overt, acute fractures. Hardware appears to be in good position. Reviewed: Reviewed by Me Departure Impression Primary Impression: Thoracic back pain Qualified Codes: M54.6 - Pain in thoracic spine Disposition: 01 HOME, SELF-CARE Condition: Stable Departure-Patient Inst. Decision time for Depature: 01:41 Referrals: NICKY THOMPSON MD (PCP/Family) Primary Care Physician Patient Instructions: Upper Back Pain (DC), Exercises for Upper Back Pain Add. Discharge Instructions: Cyclobenzaprine 1 tablet every 8 hours as necessary for muscle spasms in your back and neck. Cyclobenzaprine will cause drowsiness and should not be mixed with alcohol. Naproxen 500 mg twice a day for the next 1-2 weeks until your symptoms improve. Tylenol 1000 mg every 8 hours as necessary for pain. Apply ice alternated with heat to your back for the next couple days. Topical creams such as icy hot, Biofreeze etc. Follow-up with your primary care provider within the next 2 weeks if your symptoms are not improving. You may set up an appointment with [facility] for a no-cost consultation by calling [phone] if you need some help healing. If you have a back brace wear it on the days that it helps. All discharge instructions reviewed with patient and/or family. Voiced understanding. Scripts Naproxen (Naprosyn) 500 Mg Tablet 500 MG PO BID for 14 Days, #30 TAB 0 Refills Prov: LAUREL SHEN 08/07/20 Cyclobenzaprine HCl (Cyclobenzaprine HCl) 10 Mg Tablet 10 MG PO Q8H PRN for SPASMS, #20 TAB 0 Refills Prov: LAUREL SHEN 08/07/20 LAUREL SHEN Aug 07, 2020 01:09
[2020-08-07] MEDS ORDERED: ORPHENADRINE 60 MG/2 ML (NORFLEX) AMP (ED ONLY) IM ONE (01:15)
[2020-08-07] MEDS ORDERED: KETOROLAC 60 MG/2 ML VIAL IM ONE (01:15)
[2020-08-07] MEDS ORDERED: CYCL10TA9 PO (01:44)
[2020-08-07] MEDS ORDERED: NAPR-1071 PO (01:44)
[2020-08-07 01:55] VITALS: BP 134/70
[2020-08-07] MEDS ORDERED: HYDROcodone/APAP 5 MG/325 MG (LORTAB) TAB PO ONE (02:00)
--- NOTE | 2020-08-07 06:19 | Diagnostic Imaging Report ---
INDICATION: Neck pain. COMPARISON: None. FINDINGS: 4 views of the cervical column demonstrate normal alignment. There is no subluxation, fracture or significant degeneration. Carotid artery calcifications are present. IMPRESSION: No traumatic malalignment, fracture or significant degeneration. Dictated by: Dictated on workstation # [id number]
--- NOTE | 2020-08-07 06:24 | Diagnostic Imaging Report ---
INDICATION: Back pain COMPARISON: None FINDINGS: 3 views of the thoracic column demonstrate normal alignment. There is no subluxation, fracture or degeneration. No osseous lesion. IMPRESSION: Negative thoracic spine Dictated by: Dictated on workstation # [id number]
--- NOTE | 2020-08-07 06:26 | Diagnostic Imaging Report ---
INDICATION: Low back pain COMPARISON: None FINDINGS: 3 views of the lumbar column demonstrate anterior and posterior fusion of L4-L5. There is slight lumbar scoliosis. Minimal degenerative changes are present. There is no traumatic malalignment, fracture or osseous lesion. IMPRESSION: Stable anterior posterior fusion L4-L5. Dictated by: Dictated on workstation # [id number]
== END 2020-08-07 01:55 | disposition home or self-care (01) ==
LOC: EDUNIT# 00:18 → ER 00:19
DX: M54.6 Pain in thoracic spine (principal); M54.2 Cervicalgia; E11.9 Type 2 diabetes mellitus without complications; K21.9 Gastro-esophageal reflux disease without esophagitis; J44.9 Chronic obstructive pulmonary disease, unspecified; F41.9 Anxiety disorder, unspecified; F31.9 Bipolar disorder, unspecified; G89.29 Other chronic pain; Z87.891 Personal history of nicotine dependence; Z99.89 Dependence on other enabling machines and devices; Z79.51 Long term (current) use of inhaled steroids; Z79.891 Long term (current) use of opiate analgesic; Z79.84 Long term (current) use of oral hypoglycemic drugs; Z79.52 Long term (current) use of systemic steroids; Z88.1 Allergy status to other antibiotic agents; Z88.0 Allergy status to penicillin; Z88.8 Allergy status to other drugs, medicaments and biological substances; Z91.041 Radiographic dye allergy status; X50.0XXA Overexertion from strenuous movement or load, initial encounter
CPT/HCPCS: 72040; 72070; 72100

== ENCOUNTER 2020-10-14 12:44 | Emergency (ER) | payer MEDICARE, MEDICAID ==
[~2020-10-14] VITALS: Ht 175.3 cm; Wt 130.2 kg
[~2020-10-14 12:44] MED LIST changes: +CYCL10TA9 PO
--- NOTE | 2020-10-14 13:26 | ED General ---
General Chief Complaint: Trauma-Non Activation Stated Complaint: FALL/MULTIPLE COMPLAINTS Nursing Triage Note: PT STATES SHE FELL OFF HER PORCH Nursing Sepsis Screen: No Definite Risk Source of Information: Patient Exam Limitations: No Limitations History of Present Illness Date Seen by Provider: Oct 14, 2020 Time Seen by Provider: 13:26 Initial Comments Patient is a 59-year-old female who presents to the emergency department today with a chief complaint of left ankle pain. Patient states that she was walking down a set of 5 steps when she missed 2 steps and fell face forward onto her right arm and left foot/ankle. Patient had immediate pain and states she was unable to stand up and bear weight on the left foot. She denies any injury to her head, loss of consciousness. She is complaining of some neck spasms paraspinous more so on the right. Patient denies any pain in her chest, upper extremities, back, legs. Patient states that she is having a little bit of discomfort in her right knee. Patient states that she has had a left knee replacement in the past. All other review of systems reviewed and negative except as stated above. Timing/Duration: 1-3 Hours Severity: Moderate Associated Systoms: Denies Symptoms Allergies and Home Medications Allergies Coded Allergies: nickel (Verified Allergy, Intermediate, RASH, 01/06/19) doxycycline (Verified Allergy, Mild, HIVES, 01/06/19) Iodinated Contrast Media (Verified Allergy, Unknown, 01/06/19) cobalt (Verified Allergy, Unknown, Hives, 06/24/19) penicillin (Verified Allergy, Unknown, HAS RECEIVED ROCEPHIN, 06/30/19) rash Uncoded Allergies: hexachloride (Allergy, Unknown, Hives, 06/24/19) Home Medications Albuterol Sulfate 1 Puff Puff, 2 PUFF IH Q4H PRN for WHEEZING, (Reported) 1 PUFF = 90 MCG Baloxavir Marboxil 40 Mg Tablet, 40 MG PO DAILY Prescribed by: JANELLE ESPITIA on 11/10/19 1428 Cyclobenzaprine HCl 10 Mg Tablet, 10 MG PO Q8H PRN for SPASMS Prescribed by: LAUREL SHEN on 08/07/20 0144 Fluoxetine HCl 40 Mg Capsule, 40 MG PO DAILY, (Reported) Fluticasone Propionate 9.9 Ml [place].susp, 1 SPRAY NS BID, (Reported) Fluticasone/Vilanterol 1 Each Blst.w.dev, 1 EACH IH DAILY, (Reported) Hydrocodone Bit/Acetaminophen 1 Each Tablet, 1 TAB PO Q4H PRN for PAIN-MODERATE Prescribed by: OLIVA HOUSE on 06/30/19 1055 Levofloxacin 500 Mg Tablet, 500 MG PO DAILY Prescribed by: ARELY KOROMA on 08/05/19 1807 Metformin HCl 1,000 Mg Tablet, 1,000 MG PO BID, (Reported) Naproxen 500 Mg Tablet, 500 MG PO BID Prescribed by: LAUREL SHEN on 08/07/20 0144 Nystatin/Triamcinolone 15 Gm Cr, 1 TUBE TP TID apply thin layer to affected area three times daily Prescribed by: OLIVA STALEY on 03/09/20 1247 Pantoprazole Sodium 40 Mg Tablet.dr, 40 MG PO DAILY Prescribed by: STEPHANE KIMBLE on 12/22/18 1218 Prednisone 20 Mg Tab, 40 MG PO DAILY Prescribed by: ARELY KOROMA on 08/05/19 180 Prednisone 20 Mg Tab, 40 MG PO DAILY Prescribed by: JANELLE ESPITIA on 11/10/19 1504 Sulfamethoxazole/Trimethoprim 1 Each Tablet, 1 EACH PO BID Prescribed by: OLIVA STALEY on 03/09/20 1247 Patient Home Medication List Home Medication List Reviewed: Yes Review of Systems Review of Systems Constitutional: see HPI EENTM: no symptoms reported Respiratory: no symptoms reported Cardiovascular: no symptoms reported Gastrointestinal: no symptoms reported Genitourinary: no symptoms reported Musculoskeletal: joint pain (Left ankle), muscle pain (Neck) Skin: no symptoms reported Past Tkirhmv-Bclibs-Bpvqnq Hx Patient Social History Alcohol Use: Denies Use Smoking Status: Former Smoker Type Used: Cigarettes Former Smoker, Quit: May 01, 2008 2nd Hand Smoke Exposure: No Recent Infectious Disease Expo: No Recent Hopitalizations: No Immunizations Up To Date Tetanus Booster (TDap): Unknown PED Vaccines UTD: No Date of Pneumonia Vaccine: Mar 13, 2018 Date of Influenza Vaccine: Jul 06, 2018 Seasonal Allergies Seasonal Allergies: Yes Past Medical History Surgeries: Yes (bilat CTR, L KNEE x12, L shoulder, L TKR, back sx) Abdominal, Gallbladder, Hysterectomy, Oophorectomy, Orthopedic Respiratory: Yes (CPAP) Asthma, Sleep Apnea, COPD Currently Using CPAP: Yes Cardiac: Yes High Cholesterol Neurological: No Reproductive Disorders: No 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 [employer] History: Hysterectomy Sexually Transmitted Disease: No HIV/AIDS: No Genitourinary: Yes Kidney Infection, Bladder Infection, UTI-Chronic Gastrointestinal: Yes (INFLAMATION IN COLON, VENTRAL HERNIA) Gastroesophageal Reflux, Chronic Constipation, Chronic Diarrhea, Irritable Bowel Musculoskeletal: Yes (RESTLESS LEG SYNDROME) Arthritis, Fibromyalgia, Chronic Back Pain Endocrine: Yes (OBESITY) Diabetes, Non-Insulin dep HEENT: Yes (GLASSES) Loss of Vision: Bilateral Hearing Impairment: Denies Cancer: No Psychosocial: Yes Anxiety, Bipolar Integumentary: No Blood Disorders: No Adverse Reaction/Blood Tranf: No (N/A) Family Medical History Arthritis 19 MOTHER, Onset:Unknown Asthma 19 FATHER, Onset:Unknown Cataracts 19 MOTHER, Onset:Unknown Diabetes mellitus 19 MOTHER, Onset:Unknown FH: COPD (chronic obstructive pulmonary disease) 19 FATHER, Onset:Unknown Hypercholesterolemia 19 MOTHER MS (multiple sclerosis) G8 SISTER, Onset:Unknown Physical Exam Vital Signs Vital Signs - First Documented 10/14/20 10/14/20 13:04 14:53 Temp 35.7 Pulse 84 Resp 17 B/P (MAP) 137/79 (98) Pulse Ox 97 O2 Delivery Room Air Capillary Refill : Less Than 3 Seconds Height, Weight, BMI Height: 5'9.00" Weight: 288lbs. 0.0oz. 130.892420gb; 42.00 BMI Method:Stated General Appearance: No Apparent Distress, WD/WN Eyes: Bilateral Eye Normal Inspection Neck: Full Range of Motion, Normal Inspection, Non Tender, Supple, Other (mild paraspinous muscle tenderness right sided C4, 5, 6) Respiratory: Lungs Clear, Normal Breath Sounds, No Accessory Muscle Use Cardiovascular: Regular Rate, Rhythm Gastrointestinal: Non Tender, Soft Extremity: Normal Capillary Refill, Normal Inspection, Other (tenderness to palpation over the medial and lateral malleoli; pulses intact 1+ PT and DP; brisk cap refill; mild swelling over the ankle joint on the left) Neurologic/Psychiatric: Alert, Oriented x3, No Motor/Sensory Deficits, Normal Mood/Affect Skin: Normal Color, Warm/Dry, Other (small abrasion palm of right hand) Progress/Results/Core Measures Suspected Sepsis Recent Fever Within 48 Hours: No Infection Criteria Present: None New/Unexplained Altered Menta: No Sepsis Screen: No Definite Risk SIRS Temperature: Pulse: 84 Respiratory Rate: 17 Blood Pressure 137 /79 Mean: 98 Results/Orders My Orders Orders - HEATHER SINGLETON MD Ketorolac Injection (Toradol Injection) (10/14/20 13:45) Ankle, Left, 3 Views (10/14/20 14:04) Medications Given in ED Vital Signs/I&O Capillary Refill : Less Than 3 Seconds Blood Pressure Mean: 98 Progress Note : Time: 14:44 Progress Note Patient's x-ray has been reviewed, no obvious fractures or dislocation are noted to the left ankle joint. Patient is communicated this information. Will be advised to take [id number] ibuprofen or naproxen for pain. Patient is encouraged to ambulate on her ankle. Td wrap for comfort. She declines crutches. All questions are sought and answered. Patient is stable for discharge. Diagnostic Imaging Diagonstic Imaging: Xray Plain Films/CT/US/NM/MRI: ankle Comments [facility], [place] NAME: LENNY OROSCO [facility] REC#: [id number] PT STATUS: REG ER : 1960 PHYSICIAN: HEATHER SINGLETON MD ADMIT DATE: 10/14/20/ER Draft Date of Exam:10/14/20 ANKLE, LEFT, 3 VIEWS Clinical indications: Patient status post fall from porch with ankle pain. EXAM: X-ray of the left ankle, 3 views. COMPARISON: None. FINDINGS: There is no acute fracture dislocation. There is hypertrophic calcaneal spurs at the plantar and Achilles attachment. There is mild spurring of the dorsal midfoot. IMPRESSION: There is no acute fracture or dislocation. Dictated on workstation # [id number] Dict: 10/14/20 1419 Trans: 10/14/20 1428 [facility] [id number] Interpreted by: KRISTIAN MCGREGOR MD Electronically signed by: Departure Impression Primary Impression: Left ankle sprain Qualified Codes: S93.402A - Sprain of unspecified ligament of left ankle, i nitial encounter Disposition: 01 HOME, SELF-CARE Condition: Stable Departure-Patient Inst. Decision time for Depature: 14:45 Referrals: NICKY THOMPSON MD (PCP/Family) Primary Care Physician Patient Instructions: Ankle Sprain Add. Discharge Instructions: Drink plenty of fluids to stay well-hydrated. You can Td wrap your ankle for comfort and stability. Alternate ice and heat to the left ankle joint for pain as well. Take [id number]-[id number] ibuprofen 3 tablets which is 600 mg every 6 hours with food as needed for pain. Follow-up with your primary care provider. All discharge instructions reviewed with patient and/or family. Voiced understanding. HEATHER SINGLETON MD Oct 14, 2020 13:26
[2020-10-14] MEDS ORDERED: KETOROLAC 30 MG/ML VIAL IVP ONE (13:45)
--- NOTE | 2020-10-14 14:28 | Diagnostic Imaging Report ---
Clinical indications: Patient status post fall from porch with ankle pain. EXAM: X-ray of the left ankle, 3 views. COMPARISON: None. FINDINGS: There is no acute fracture dislocation. There is hypertrophic calcaneal spurs at the plantar and Achilles attachment. There is mild spurring of the dorsal midfoot. IMPRESSION: There is no acute fracture or dislocation. Dictated by: Dictated on workstation # [id number]
[2020-10-14 14:53] VITALS: BP 137/70
== END 2020-10-14 14:53 | disposition home or self-care (01) ==
LOC: EDUNIT# 12:44 → ER 12:45
DX: S93.402A Sprain of unspecified ligament of left ankle, initial encounter (principal); S60.511A Abrasion of right hand, initial encounter; J44.9 Chronic obstructive pulmonary disease, unspecified; E11.9 Type 2 diabetes mellitus without complications; K21.9 Gastro-esophageal reflux disease without esophagitis; G89.29 Other chronic pain; M54.9 Dorsalgia, unspecified; E66.9 Obesity, unspecified; F32.9 Major depressive disorder, single episode, unspecified; Z68.41 Body mass index [BMI] 40.0-44.9, adult; Z87.891 Personal history of nicotine dependence; Z82.61 Family history of arthritis; Z83.3 Family history of diabetes mellitus; Z88.1 Allergy status to other antibiotic agents; Z88.0 Allergy status to penicillin; Z91.041 Radiographic dye allergy status; Z88.8 Allergy status to other drugs, medicaments and biological substances; Z79.52 Long term (current) use of systemic steroids; Z79.84 Long term (current) use of oral hypoglycemic drugs; Z79.891 Long term (current) use of opiate analgesic; W10.9XXA Fall (on) (from) unspecified stairs and steps, initial encounter
CPT/HCPCS: 73610

== ENCOUNTER 2020-11-06 16:07 | Emergency (ER) | payer MEDICARE, MEDICAID ==
[~2020-11-06] VITALS: Ht 175 cm; Wt 126.0 kg
--- NOTE | 2020-11-06 16:27 | ED Lower Extremity ---
General Chief Complaint: Lower Extremity Stated Complaint: R KNEE PAIN Source: patient Exam Limitations: no limitations History of Present Illness Date Seen by Provider: Nov 06, 2020 Time Seen by Provider: 16:26 Initial Comments To ER with right knee pain for 1 week as well as buckling of the right knee after she fell off a porch 1 week ago. Onset: last week Severity: moderate Pain/Injury Location: right knee Method of Injury: fell Modifying Factors: Worse With Movement Allergies and Home Medications Allergies Coded Allergies: nickel (Verified Allergy, Intermediate, RASH, 01/06/19) doxycycline (Verified Allergy, Mild, HIVES, 01/06/19) Iodinated Contrast Media (Verified Allergy, Unknown, 01/06/19) cobalt (Verified Allergy, Unknown, Hives, 06/24/19) penicillin (Verified Allergy, Unknown, HAS RECEIVED ROCEPHIN, 06/30/19) rash Uncoded Allergies: hexachloride (Allergy, Unknown, Hives, 06/24/19) Home Medications Albuterol Sulfate 1 Puff Puff, 2 PUFF IH Q4H PRN for WHEEZING, (Reported) 1 PUFF = 90 MCG Baloxavir Marboxil 40 Mg Tablet, 40 MG PO DAILY Prescribed by: JANELLE ESPITIA on 11/10/19 1428 Cyclobenzaprine HCl 10 Mg Tablet, 10 MG PO Q8H PRN for SPASMS Prescribed by: LAUREL SHEN on 08/07/20 014 Fluoxetine HCl 40 Mg Capsule, 40 MG PO DAILY, (Reported) Fluticasone Propionate 9.9 Ml [place].susp, 1 SPRAY NS BID, (Reported) Fluticasone/Vilanterol 1 Each Blst.w.dev, 1 EACH IH DAILY, (Reported) Hydrocodone Bit/Acetaminophen 1 Each Tablet, 1 TAB PO Q4H PRN for PAIN-MODERATE Prescribed by: OLIVA HOUSE on 06/30/19 1055 Levofloxacin 500 Mg Tablet, 500 MG PO DAILY Prescribed by: ARELY KOROMA on 08/05/19 1807 Metformin HCl 1,000 Mg Tablet, 1,000 MG PO BID, (Reported) Naproxen 500 Mg Tablet, 500 MG PO BID Prescribed by: LAUREL SHEN on 08/07/20 014 Nystatin/Triamcinolone 15 Gm Cr, 1 TUBE TP TID apply thin layer to affected area three times daily Prescribed by: OLIVA STALEY on 03/09/20 1247 Pantoprazole Sodium 40 Mg Tablet.dr, 40 MG PO DAILY Prescribed by: STEPHANE KIMBLE on 12/22/18 1218 Prednisone 20 Mg Tab, 40 MG PO DAILY Prescribed by: ARELY KOROMA on 08/05/19 1807 Prednisone 20 Mg Tab, 40 MG PO DAILY Prescribed by: JANELLE ESPITIA on 11/10/19 1504 Sulfamethoxazole/Trimethoprim 1 Each Tablet, 1 EACH PO BID Prescribed by: OLIVA STALEY on 03/09/20 1247 Patient Home Medication List Home Medication List Reviewed: Yes Review of Systems Constitutional: see HPI EENTM: see HPI Respiratory: no symptoms reported Cardiovascular: no symptoms reported Genitourinary: no symptoms reported Musculoskeletal: see HPI Skin: no symptoms reported Psychiatric/Neurological: No Symptoms Reported Past Niehodd-Kszvxq-Mnjbjc Hx Patient Social History Type Used: Cigarettes Former Smoker, Quit: May 01, 2008 2nd Hand Smoke Exposure: No Recent Hopitalizations: No Immunizations Up To Date Tetanus Booster (TDap): Unknown PED Vaccines UTD: No Date of Pneumonia Vaccine: Mar 13, 2018 Date of Influenza Vaccine: Jul 06, 2018 Seasonal Allergies Seasonal Allergies: Yes Past Medical History Surgeries: Yes (bilat CTR, L KNEE x12, L shoulder, L TKR, back sx) Abdominal, Gallbladder, Hysterectomy, Oophorectomy, Orthopedic Respiratory: Yes (CPAP) Asthma, Sleep Apnea, COPD Currently Using CPAP: Yes Cardiac: Yes High Cholesterol Neurological: No Reproductive Disorders: No 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 [employer]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 Sexually Transmitted Disease: No HIV/AIDS: No Genitourinary: Yes Kidney Infection, Bladder Infection, UTI-Chronic Gastrointestinal: Yes (INFLAMATION IN COLON, VENTRAL HERNIA) Gastroesophageal Reflux, Chronic Constipation, Chronic Diarrhea, Irritable Bowel Musculoskeletal: Yes (RESTLESS LEG SYNDROME) Arthritis, Fibromyalgia, Chronic Back Pain Endocrine: Yes (OBESITY) Diabetes, Non-Insulin dep HEENT: Yes (GLASSES) Loss of Vision: Bilateral Hearing Impairment: Denies Cancer: No Psychosocial: Yes Anxiety, Bipolar Integumentary: No Blood Disorders: No Adverse Reaction/Blood Tranf: No (N/A) Family Medical History Arthritis 19 MOTHER, Onset:Unknown Asthma 19 FATHER, Onset:Unknown Cataracts 19 MOTHER, Onset:Unknown Diabetes mellitus 19 MOTHER, Onset:Unknown FH: COPD (chronic obstructive pulmonary disease) 19 FATHER, Onset:Unknown Hypercholesterolemia 19 MOTHER MS (multiple sclerosis) G8 SISTER, Onset:Unknown Physical Exam Vital Signs Capillary Refill : Height, Weight, BMI Height: 5'9.00" Weight: 288lbs. 0.0oz. 130.507566cu; 42.00 BMI Method:Stated General Appearance: WD/WN, no apparent distress Respiratory: no respiratory distress, no accessory muscle use Hips: bilateral hip non-tender, bilateral hip normal inspection, bilateral hip normal range of motion Legs: bilateral leg non-tender, bilateral leg normal inspection, bilateral leg normal range of motion Knees: right knee pain, right knee soft tissue tenderness Ankles: bilateral ankle non-tender, bilateral ankle normal inspection, bilateral ankle normal range of motion Neurologic/Psychiatric: alert, normal mood/affect, oriented x 3 Skin: normal color, warm/dry Progress/Results/Core Measures Results/Orders My Orders Orders - JANELLE ESPITIA APRN Knee, Right, 3 Views (11/06/20 16:23) Ketorolac Injection (Toradol Injection) (11/06/20 16:30) Diagnostic Imaging Diagonstic Imaging: Xray Comments NAME: LENNY OROSCO MED REC#: [id number] PT STATUS: REG ER : 1960 PHYSICIAN: JANELLE ESPITIA APRN ADMIT DATE: 11/06/20/ER Draft Date of Exam:11/06/20 KNEE, RIGHT, 3 VIEWS INDICATION: Right knee pain. TECHNIQUE: AP, oblique, and lateral views of the right knee are obtained. FINDINGS: There are small calcifications superior to the patella anteriorly, which may represent tiny avulsions and were not present on 02/09/2017. Remaining bony structures are intact. There is no definite joint effusion. IMPRESSION: Tiny calcifications are present superior to the patella anteriorly, which may represent small avulsed fragments, but are of uncertain age. These were not present however on 02/09/2017. Remaining bony structures are unremarkable. Dictated on workstation # [id number] Dict: 11/06/20 1646 Trans: 11/06/20 1651 [id number] Interpreted by: FLACO LINCOLN MD Electronically signed by: Departure Impression Primary Impression: Internal derangement of knee Additional Impression: Quadriceps tendon avulsion Disposition: HOME, SELF-CARE Condition: Stable Departure-Patient Inst. Decision time for Depature: 16:50 Referrals: NICKY THOMPSON MD (PCP/Family) Primary Care Physician Patient Instructions: Internal Derangement of the Knee JANELLE ESPITIA APRN Nov 06, 2020 16:26
[2020-11-06] MEDS ORDERED: KETOROLAC 60 MG/2 ML VIAL IM ONE (16:30)
--- NOTE | 2020-11-06 16:51 | Diagnostic Imaging Report ---
INDICATION: Right knee pain. TECHNIQUE: AP, oblique, and lateral views of the right knee are obtained. FINDINGS: There are small calcifications superior to the patella anteriorly, which may represent tiny avulsions and were not present on 02/09/2017. Remaining bony structures are intact. There is no definite joint effusion. IMPRESSION: Tiny calcifications are present superior to the patella anteriorly, which may represent small avulsed fragments, but are of uncertain age. These were not present however on 02/09/2017. Remaining bony structures are unremarkable. Dictated by: Dictated on workstation # [id number]
[2020-11-06 17:14] VITALS: BP 145/85
== END 2020-11-06 17:14 | disposition home or self-care (01) ==
LOC: EDUNIT# 16:07 → ER 16:08
DX: S76.191A Other specified injury of right quadriceps muscle, fascia and tendon, initial encounter (principal); M23.91 Unspecified internal derangement of right knee; E11.9 Type 2 diabetes mellitus without complications; J44.9 Chronic obstructive pulmonary disease, unspecified; K21.9 Gastro-esophageal reflux disease without esophagitis; F41.9 Anxiety disorder, unspecified; F31.9 Bipolar disorder, unspecified; G89.29 Other chronic pain; M54.9 Dorsalgia, unspecified; G47.30 Sleep apnea, unspecified; M79.7 Fibromyalgia; E66.9 Obesity, unspecified; Z68.41 Body mass index [BMI] 40.0-44.9, adult; Z87.891 Personal history of nicotine dependence; Z96.652 Presence of left artificial knee joint; Z99.89 Dependence on other enabling machines and devices; Z87.440 Personal history of urinary (tract) infections; Z79.84 Long term (current) use of oral hypoglycemic drugs; Z79.51 Long term (current) use of inhaled steroids; Z79.891 Long term (current) use of opiate analgesic; Z79.52 Long term (current) use of systemic steroids; Z79.1 Long term (current) use of non-steroidal anti-inflammatories (NSAID); Z88.1 Allergy status to other antibiotic agents; Z88.0 Allergy status to penicillin; Z88.8 Allergy status to other drugs, medicaments and biological substances; Z91.041 Radiographic dye allergy status; W17.89XA Other fall from one level to another, initial encounter
CPT/HCPCS: 73562

== ENCOUNTER → 2020-12-01 | Outpatient (CLI) | payer MEDICARE, MEDICAID ==
[~2020-12-01] MED LIST changes: -OXYC-471 PO; +OXYC1TAB11 PO
--- NOTE | 2020-12-01 16:40 | Diagnostic Imaging Report ---
MRI RT LOWER EXT JOINT W/O TECHNIQUE: Multiplanar, multisequence MR imaging of the right knee was performed without contrast. COMPARISON: Right knee radiographs of 11/06/2020 INDICATION: Right knee pain FINDINGS: MENISCI Medial meniscus: Normal. Lateral meniscus: Focal incomplete free edge radial tearing in the posterior horn of the lateral meniscus. LIGAMENTS ACL: Intact. PCL: Intact. MCL: Intact. LCL: The lateral collateral ligamentous complex is intact. EXTENSOR MECHANISM The extensor mechanism is intact. CARTILAGE Medial compartment: Medial compartment articular cartilage is well preserved without focal high-grade chondromalacia. Lateral compartment: The lateral compartment articular cartilage is preserved without high-grade chondromalacia. Patellofemoral compartment: Low-grade partial-thickness chondral thinning in the lateral patellar facet. BONE No fracture, stress fracture or osteonecrosis. SOFT TISSUE No knee effusion or Rueda's cyst. IMPRESSION: 1. Very mild free edge tearing in the posterior horn of the lateral meniscus. 2. There is also mild partial thickness articular cartilage loss in the patellofemoral compartment. Remainder of the articular cartilage is fairly well-preserved. 3. The cruciate and collateral ligaments are intact. Dictated by: Dictated on workstation # [id number]
== END ==
LOC: RAD 14:45
PROVIDERS: ATTEND Nurse Practitioner
DX: S83.281A Other tear of lateral meniscus, current injury, right knee, initial encounter (principal); S83.31XA Tear of articular cartilage of right knee, current, initial encounter; X58.XXXA Exposure to other specified factors, initial encounter
CPT/HCPCS: 73721

== ENCOUNTER 2020-12-25 11:24 | Outpatient (CLI) | payer MEDICARE, MEDICAID ==
[~2020-12-25] VITALS: Ht 175.3 cm; Wt 131.9 kg
[2020-12-25 11:36] VITALS: BP 126/62
[2020-12-25] MEDS ORDERED: PANT40TA52 PO ×2 (11:38)
[2020-12-25] MEDS ORDERED: PREG75CA75 PO ×2 (11:38)
[2020-12-25] MEDS ORDERED: MUPI15CR11 NSEACH (11:46)
== END 2020-12-25 12:00 | disposition home or self-care (01) ==
LOC: PREOP 11:24
PROVIDERS: ATTEND Orthopaedic Surgery
DX: Z01.818 Encounter for other preprocedural examination (principal); S83.281A Other tear of lateral meniscus, current injury, right knee, initial encounter
CPT/HCPCS: 87081

== ENCOUNTER 2020-12-27 06:08 | Day surgery (SDC) | payer MEDICARE, MEDICAID ==
--- NOTE | 2020-12-20 15:35 | HISTORY AND PHYSICAL ---
DATE OF SERVICE: ADMISSION HISTORY AND PHYSICAL DATE OF ADMISSION: 12/27/2020. This will be for outpatient surgery on 12/27/2020 for right knee arthroscopy. HISTORY OF PRESENT ILLNESS: The patient is a 60-year-old female, who fell approximately two and a half months ago, sustained an injury to her right anterior knee. She has undergone treatment with rest, activity modifications, and anti-inflammatories. Ultimately, an MRI was obtained, which revealed some posterior horn tear in the lateral meniscus with chondral changes. She reports continued functional impairment. Because of this, she has elected to proceed with surgical intervention. REVIEW OF SYSTEMS: No chest pain, no shortness of breath, and no dysuria. PAST MEDICAL HISTORY: Diabetes type 2, COPD, depression, hypercholesterolemia, back pain, sleep apnea, bipolar, allergic rhinitis, cardiomegaly, morbid obesity, headaches, asthma, and arthritis. PAST SURGICAL HISTORY: Bilateral carpal and cubital tunnel releases, left knee arthroscopy, left shoulder arthroscopy, right knee scope, cholecystectomy, hysterectomy, left total knee arthroplasty with subsequent lysis of adhesions. FAMILY HISTORY: Lupus, multiple sclerosis, COPD, hypertension, and diabetes. PRIMARY CARE PROVIDER: Dr. Espino. MEDICATIONS: 1. Breo Ellipta. 2. Vilanterol. 3. Fluoxetine. 4. Lyrica. 5. Metformin. 6. Protonix. 7. Ibuprofen. ALLERGIES: NICKEL, PENICILLIN, DOXYCYCLINE, VITAMIN B12 and CONTRAST DYE. SOCIAL HISTORY: The patient is a former smoker and drinks alcohol rarely. IMAGING STUDIES: MRI as above. Radiographs revealed some mild degenerative change in the medial and patellofemoral compartment. PHYSICAL EXAMINATION: GENERAL: The patient is well-developed, well-nourished, in no acute distress. HEENT: Normocephalic and atraumatic. Pupils are equal, round and reactive to light. Oropharynx is clear. NECK: Supple and no lymphadenopathy. LUNGS: Clear to auscultation bilaterally. HEART: Regular rate and rhythm. ABDOMEN: Soft, nontender, and nondistended. EXTREMITIES: The right knee demonstrates some moderate effusion. She is tender along her lateral joint line and pain laterally with hyperflexion. She has pain anteriorly with patellar loading with crepitus noted. Range of motion is 0/2/140. Ligamentously stable in all planes. 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 PLAN: Right knee arthroscopy, chondroplasty and partial meniscectomy. The risks, benefits, options, ramifications and recovery were discussed at length with the patient. She understands and wishes to proceed. Job ID: [id number] DocumentID: [id number] Dictated Date: 12/20/2020 12:32:56 Live Study Manager Date: 12/20/2020 12:51:42 Dictated By: KISHA BALDWIN MD
[~2020-12-27] VITALS: Ht 175 cm; Wt 131.0 kg
[2020-12-27] VITALS (11 sets, daily range): BP systolic 101–160; BP diastolic 43–98
[~2020-12-27 06:08] MED LIST changes: +MUPI15CR11 NSEACH; +PANT40TA52 PO; +PREG75CA75 PO
[2020-12-27] MEDS ORDERED: proPOfol 200 MG/20 ML (DIPRIVAN) VIAL IV ONE (06:39)
[2020-12-27] MEDS ORDERED: LIDOCAINE PF 2% 5 ML (XYLOCAINE) VIAL ONE (06:39)
[2020-12-27] MEDS ORDERED: fentaNYL INJ 100 MCG/2 ML AMP ONE (06:39)
[2020-12-27] MEDS ORDERED: ONDANSETRON 4 MG/2 ML (SDV) Z0FRAN ONE (06:39)
[2020-12-27] MEDS ORDERED: MIDAZOLAM 2 MG/2 ML (VERSED) VIAL ONE (06:40)
[2020-12-27] MEDS ORDERED: SEVOFLURANE (ULTANE) 15 ML INHAL SOLN ONE (06:40)
[2020-12-27] MEDS: LACTATED RINGERS 1,000 ML IV PRN ×2 (06:44→08:15)
[2020-12-27] MEDS ORDERED: CLINDAMYCIN 600 MG/50 ML IVPB 50 ML IV ONE (06:45)
[2020-12-27] MEDS ORDERED: ROCURONIUM 10 MG/ML 5 ML SYRINGE IV ONE (06:48)
[2020-12-27] MEDS ORDERED: GLYCOPYRROLATE 0.2 MG/ML (ROBINUL) 2 ML VIAL ONE (06:48)
[2020-12-27] MEDS ORDERED: NEOSTIGMINE 3 MG/3 ML VIAL ONE (06:48)
[2020-12-27] MEDS ORDERED: morphine PF (DURAMORPH) 10 MG/10 ML AMP ONE (06:57)
[2020-12-27] MEDS ORDERED: BUPIVACAINE 0.25% 30 ML (SENSORCAINE) VIAL ONE (06:57)
[2020-12-27] MEDS ORDERED: HYDROcodone/APAP 7.5 MG/325 MG (LORTAB, LORCET PLUS) TABLET PO PRN (07:30)
--- NOTE | 2020-12-27 07:32 | Progress Note-Pre Operative ---
Pre-Operative Progress Note H&P Reviewed The H&P was reviewed, patient examined and no changes noted. Date Seen by Provider: Dec 27, 2020 Time Seen by Provider: 07:20 Date H&P Reviewed: Dec 27, 2020 Time H&P Reviewed: 07:11 Pre-Operative Diagnosis: right knee lateral meniscus tear and chondromalacia KISHA BALDWIN MD Dec 27, 2020 07:32
--- NOTE | 2020-12-27 07:33 | Progress Note-Post Operative ---
Post-Operative Progess Note Surgeon (s)/Spinning Bath Person (s) Surgeon KISHA BALDWIN MD Spinning Bath Person: Boy Shepherd Pre-Operative Diagnosis right knee lateral meniscus tear and chondromalacia Post-Operative Diagnosis right knee lateral meniscus tear and chondromalacia of the lateral tibial plateau and patella Procedure & Operative Findings Date of Procedure 12/27/20 Procedure Performed/Findings right knee arthroscopic partial lateral meniscectomy and chondroplasty of the lateral tibial plateau and patella Anesthesia Type GETA Estimated Blood Loss Estimated blood loss (mL): minimal Specimens/Packing Specimens Removed none Packing: none KISHA BALDWIN MD Dec 27, 2020 07:33
[2020-12-27] MEDS ORDERED: HYDROmorphone 2 MG/ML VIAL (DILAUDID) ONE (07:53)
[2020-12-27] MEDS ORDERED: HYDROmorphone 2 MG/ML VIAL (DILAUDID) IV ONE (08:30)
[2020-12-27] MEDS ORDERED: ONDANSETRON 4 MG/2 ML (SDV) Z0FRAN IVP PRN (08:30)
[2020-12-27] MEDS ORDERED: HYDR-34 PO ×2 (09:14)
--- NOTE | 2020-12-27 09:49 | Anesthesia-General Post-Op ---
General Patient Condition Mental Status/LOC: Same as Preop Cardiovascular: Satisfactory Nausea/Vomiting: Absent Respiratory: Satisfactory Pain: Controlled Complications: Absent Post Op Complications Complications None Follow Up Care/Instructions Patient Instructions None needed. Anesthesia/Patient Condition Patient Condition Patient is doing well, no complaints, stable vital signs, no apparent adverse anesthesia problems. No complications reported per nursing. D/C home per [facility] Criteria: Yes TIFFANIE MANCIA CRNA Dec 27, 2020 09:49
--- NOTE | 2020-12-27 10:00 | OPERATIVE REPORT ---
DATE OF SERVICE: 12/27/2020 PREOPERATIVE DIAGNOSES: 1. Right knee lateral meniscus tear. 2. Right knee chondromalacia of the patella. POSTOPERATIVE DIAGNOSES: 1. Right knee lateral meniscus tear. 2. Right knee chondromalacia of the patella. 3. 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 PROCEDURES: 1. Right knee arthroscopic partial lateral meniscectomy. 2. Right knee arthroscopic chondroplasty of the patella. 3. Right knee arthroscopic chondroplasty of the lateral tibial plateau. SURGEON: Zion Baldwin MD LINEN ROOM SUPERVISOR: Boy Shepherd, who assisted throughout the procedure and closed the incisions. ANESTHESIA: General endotracheal by Arya Lujan CRNA. TOURNIQUET TIME: Not applicable. ESTIMATED BLOOD LOSS: Minimal. DRAINS: None. COMPLICATIONS: None. POSTOPERATIVE PLAN: Routine arthroscopy protocol. The patient was transferred to the recovery room awake and stable condition. STATEMENT OF MEDICAL NECESSITY: The patient is a 60-year-old female with right lateral knee pain, catching, locking and swelling. She tried rest, activity modifications, anti-inflammatories without relief. She had some mild degenerative changes noted radiographically in the lateral and patellofemoral compartments as well as a lateral meniscus tear and due to functional impairment and failure to improve with conservative measures, the patient elected to proceed with surgical intervention. Examination under anesthesia revealed range of motion of 0/0/135 with negative Rg, negative anterior and posterior drawer. No varus valgus laxity, negative pivot shift. Arthroscopic findings demonstrated grade IV chondral loss in central portion of the patella in a 15 x 10 area with surrounding grade III flaps at the periphery of the trochlea demonstrated no gross chondral abnormalities. Medial and lateral gutters were clear. The ACL and PCL were intact. The medial compartment demonstrated no meniscal or chondral pathology. Lateral compartment demonstrated a horizontal cleavage tear of the posterior horn and body of the lateral meniscus around approximately 1/3 of the posterior horn and body. In addition, there were grade III chondral flaps diffusely over the tibial plateau. DESCRIPTION OF PROCEDURE: After risks and benefits of procedure were discussed and questions were answered, informed consent was signed and placed on chart. The operative site was confirmed in the preoperative holding area initialed by the surgeon. The patient was then transferred to the operating room and after adequate levels of general endotracheal anesthetic were obtained, a timeout was called, confirming the operative site. Examination under anesthesia was performed with above findings noted. The right lower extremity was prepped and draped in the usual sterile fashion. The knee joint was injected with 60 mL of fluid and standard inferolateral portal was placed arthroscope. Under direct visualization, inferior medial portal was created, the menisci and cruciates were carefully probed with the above findings noted. The unstable chondral flaps on the patella were debrided with shaver back to a stable edge. Scope was then redirected into the lateral compartment. The unstable chondral flaps in lateral tibial plateau were debrided with a shaver back to a stable edge and the posterior horn and body of the lateral meniscus were debrided with a biter and shaver back to a stable edge. This was carefully probed with no further tearing or instability noted. The knee was copiously irrigated. Port sites were closed with 4-0 nylon in simple interrupted fashion. Knee was injected with Duramorph. Port sites were infiltrated with plain Marcaine. A soft dressing was applied. The patient was transferred to the recovery room awake and in stable condition. Job ID: [id number] DocumentID: [id number] Dictated Date: 12/27/2020 08:19:39 Business Mail Entry Clerk Date: 12/27/2020 09:59:46 Dictated By: ZION BALDWIN MD
--- NOTE | 2020-12-27 10:45 | Physical Therapy Ortho Eval ---
PT Orthopedic Evaluation Type of Surgery Knee Scope Prior Level of Function Current Living Status: Other Family Locomotion (Upon Admit): Front Wheeled Walker Established Durable Medical Eq: Front Wheeled Walker Subjective Subjective Agrees to PT. Reports she knows how to use a walker and reports she has done the exercises many times. Entry Into Home: Stairs With Railing Motor Control Motor Control: Motor Control WNL ROM ROM: WFL Strength Strength: WFL Transfer SCALE: Activities may be completed with or without assistive devices. 7-Tpwmllofua-gcabmow completes the activity by him/herself with no assistance from a helper. 5-Set-up or Clean-up Assistance-helper sets up or cleans up; patient completes activity. [place] assists only prior to or following the activity. 4-Supervision or Touching Assistance-helper provides verbal cues and/or touching/steadying and/or contact guard assistance as patient completes activity. Assistance may be provided throughout the activity or intermittently. 3-Partial/Moderate Assistance-helper does LESS THAN HALF the effort. [place] lifts, holds or supports trunk or limbs, but provides less than half the effort. 2-Substantial/Maximal Assistance-helper does MORE THAN HALF the effort. Acosta lifts or holds trunk or limbs and provides more than half the effort. 6-Mhlkejfeg-auoojz does ALL the effort. Patient does none of the effort to complete the activity. Or, the assistance of 2 or more helpers is required for the patient to complete the activity. If activity was not attempted, code reason: 7-Patient Refused. 9-Not Applicable-not attempted and the patient did not perform the activity before the current illness, exacerbation or injury. 10-Not Attempted due to Environmental Limitations-(lack of equipment, weather restraints, etc.). 88-Not Attempted due to Medical Conditions or Safety Concerns. Transfers (B, C, W/C) (QC): 4 (6 post eval) Gait Gait Assistive Device: FWW Right Lower Extremity: Right Weight Bearing Status RLE: Weight Bearing/Tolerated Left Lower Extremity: Left Weight Bearing Status LLE: Full Weight Bearing Gait (QC): 4 (6 post eval) Distance (QC): 3=150 ft Summary/Comments safe and steady gait with FWW; up/down a curb step with FWW without assist; cues for sequencing. Treatment Rendered Treatment: Therapeutic Exercises, Gait Train, Step Train Exercise Instruction: Quad Sets, Straight Leg Raise, Heel Slides Assessment/Goals Goal Time Frame: 1 Visit Understands HEP: Yes Safe Ambulation: Yes Plan Treatment Plan: Discharge PT/Family Agrees to Plan: Yes Time Time In: 1020 Time Out: 1040 Total Billed Treatment Time: 20 Billed Treatment Time visit EVM 20 CANDY MANN PT Dec 27, 2020 10:45
== END 2020-12-27 12:00 ==
LOC: SDC 06:08
PROVIDERS: ATTEND Orthopaedic Surgery
DX: S83.281A Other tear of lateral meniscus, current injury, right knee, initial encounter (principal); M22.41 Chondromalacia patellae, right knee; G47.33 Obstructive sleep apnea (adult) (pediatric); J44.9 Chronic obstructive pulmonary disease, unspecified; K21.9 Gastro-esophageal reflux disease without esophagitis; E11.8 Type 2 diabetes mellitus with unspecified complications; F41.9 Anxiety disorder, unspecified; E11.9 Type 2 diabetes mellitus without complications; F32.9 Major depressive disorder, single episode, unspecified; E78.00 Pure hypercholesterolemia, unspecified; M19.90 Unspecified osteoarthritis, unspecified site; E66.01 Morbid (severe) obesity due to excess calories; Z68.41 Body mass index [BMI] 40.0-44.9, adult; Z79.899 Other long term (current) drug therapy; Z79.51 Long term (current) use of inhaled steroids; Z79.84 Long term (current) use of oral hypoglycemic drugs; Z88.0 Allergy status to penicillin; Z91.041 Radiographic dye allergy status; Z88.8 Allergy status to other drugs, medicaments and biological substances; Z88.1 Allergy status to other antibiotic agents; Z90.710 Acquired absence of both cervix and uterus
CPT/HCPCS: 82962

== ENCOUNTER 2021-02-11 10:03 | Emergency (ER) | payer MEDICARE, MEDICAID ==
[~2021-02-11] VITALS: Ht 175.2 cm; Wt 118.0 kg
--- NOTE | 2021-02-11 10:26 | ED Cough/URI ---
General Stated Complaint: HEADACHE/SOB/ACHEY/CONGESTION/CP Source: patient Exam Limitations: no limitations History of Present Illness Date Seen by Provider: February 11, 2021 Time Seen by Provider: 10:15 Initial Comments Patient presents ER to the ER by private conveyance with chief complaint of nausea, headache, cough congestion going on for the past 1 day. She has had family or friends down from [place] where she says COVID-19 is endemic. She took Tylenol 1 tablet last night and then went to sleep. She woke up still having headache nausea fatigue malaise and would like to be tested for COVID-19. She is not had it before nor has she had COVID-19 vaccination. She is not having any fevers or chills. She says she does have a thermometer and checked it. She is not having any diarrhea dysuria. Allergies and Home Medications Allergies Coded Allergies: nickel (Verified Allergy, Intermediate, RASH, 12/27/20) doxycycline (Verified Allergy, Mild, HIVES, 12/27/20) Iodinated Contrast Media (Verified Allergy, Unknown, 12/27/20) cobalt (Verified Allergy, Unknown, Hives, 12/27/20) penicillin (Verified Allergy, Unknown, HAS RECEIVED ROCEPHIN, 12/27/20) rash Uncoded Allergies: hexachloride (Allergy, Unknown, Hives, 06/24/19) Home Medications Albuterol Sulfate 1 Puff Puff, 2 PUFF IH Q4H PRN for WHEEZING, (Reported) 1 PUFF = 90 MCG Fluoxetine HCl 40 Mg Capsule, 40 MG PO DAILY, (Reported) Fluticasone/Vilanterol 1 Each Blst.w.dev, 1 EACH IH DAILY, (Reported) Hydrocodone Bit/Acetaminophen 1 Ea Tablet, 1 EA PO Q4H PRN for PAIN-SEVERE (8- 10) Prescribed by: RICHARD MILLER on 12/27/20 0914 Metformin HCl 1,000 Mg Tablet, 1,000 MG PO BID, (Reported) Pantoprazole Sodium 40 Mg Tablet.dr, 40 MG PO DAILY, (Reported) Pregabalin 75 Mg Capsule, 75 MG PO BID, (Reported) Patient Home Medication List Home Medication List Reviewed: Yes Review of Systems Review of Systems Constitutional: No chills, No diaphoresis EENTM: No ear discharge, No ear pain Respiratory: cough; No phlegm; short of breath Cardiovascular: No chest pain, No palpitations Gastrointestinal: No abdominal pain, No constipation, No diarrhea Genitourinary: No discharge, No dysuria Musculoskeletal: No back pain, No joint pain All Other Systems Reviewed Negative Unless Noted: Yes Past Exnymcq-Hhntma-Ayoxfu Hx Patient Social History Alcohol Use: Denies Use Smoking Status: Former Smoker Type Used: Cigarettes Former Smoker, Quit: May 01, 2008 2nd Hand Smoke Exposure: No Recent Hopitalizations: No Immunizations Up To Date Tetanus Booster (TDap): Unknown PED Vaccines UTD: No Date of Pneumonia Vaccine: Mar 13, 2018 Date of Influenza Vaccine: Jul 06, 2020 Seasonal Allergies Seasonal Allergies: Yes Past Medical History Surgeries: Yes (bilat CTR, L KNEE x12, L shoulder, L TKR, back sx) Abdominal, Gallbladder, Hysterectomy, Oophorectomy, Orthopedic Respiratory: Yes (CPAP) Asthma, Sleep Apnea, COPD Currently Using CPAP: Yes Currently Using BIPAP: No Cardiac: Yes High Cholesterol Neurological: No Reproductive Disorders: No 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 FOOT DOCTOR History: Hysterectomy Sexually Transmitted Disease: No HIV/AIDS: No Genitourinary: Yes Kidney Infection, Bladder Infection, UTI-Chronic Gastrointestinal: Yes (INFLAMATION IN COLON, VENTRAL HERNIA) Gastroesophageal Reflux, Chronic Constipation, Chronic Diarrhea, Irritable Bowel Musculoskeletal: Yes (RESTLESS LEG SYNDROME) Arthritis, Fibromyalgia, Chronic Back Pain Endocrine: Yes (OBESITY) Diabetes, Non-Insulin dep HEENT: Yes (GLASSES) Loss of Vision: Bilateral Hearing Impairment: Denies Cancer: No Psychosocial: Yes Anxiety, Bipolar Integumentary: No Blood Disorders: No Adverse Reaction/Blood Tranf: No (N/A) Family Medical History Arthritis 19 MOTHER, Onset:Unknown Asthma 19 FATHER, Onset:Unknown Cataracts 19 MOTHER, Onset:Unknown Diabetes mellitus 19 MOTHER, Onset:Unknown FH: COPD (chronic obstructive pulmonary disease) 19 FATHER, Onset:Unknown Hypercholesterolemia 19 MOTHER MS (multiple sclerosis) G8 SISTER, Onset:Unknown Physical Exam Vital Signs - First Documented 02/11/21 10:09 Temp 36.3 Pulse 75 Resp 18 B/P (MAP) 189/109 (135) Pulse Ox 99 O2 Delivery Room Air Capillary Refill : Height: 5'9.00" Weight: 288lbs. 0.0oz. 130.073748og; 42.77 BMI Method:Stated General Appearance: mild distress, obese Eyes: Bilateral Eye Normal Inspection, Bilateral Eye PERRL, Bilateral Eye EOMI HEENT: PERRL/EOMI, normal ENT inspection, pharynx normal Neck: full range of motion, normal inspection Respiratory: chest non-tender, lungs clear, normal breath sounds, no respiratory distress, no accessory muscle use Cardiovascular: normal peripheral pulses, regular rate, rhythm Neurologic/Psychiatric: alert, normal mood/affect, oriented x 3 Skin: normal color, warm/dry Progress/Results/Core Measures Suspected Sepsis SIRS Temperature: Pulse: Respiratory Rate: Blood Pressure / Mean: Results/Orders Lab Results Laboratory Tests Test 02/11/21 10:18 Range/Units SARS-CoV-2 RNA (RT-PCR) Not Detected Not Detecte My Orders Orders - LAUREL SHEN Promethazine Tablet (Phenergan Tablet) (02/11/21 10:30) Acetaminophen Tablet (Tylenol Tablet) (02/11/21 10:30) Ketorolac Injection (Toradol Injection) (02/11/21 10:30) Covid 19 Inhouse Test (02/11/21 10:19) Medications Given in ED Current Medications Medications Dose Ordered Sig/Veronika Route Start Time Stop Time Status Last Admin Dose Admin Acetaminophen 1,000 mg ONCE ONCE PO 02/11/21 10:30 02/11/21 10:31 DC 02/11/21 10:26 1,000 MG Ketorolac Tromethamine 60 mg ONCE ONCE IM 02/11/21 10:30 02/11/21 10:31 DC 02/11/21 10:28 60 MG Promethazine HCl 25 mg ONCE ONCE PO 02/11/21 10:30 02/11/21 10:31 DC 02/11/21 10:27 25 MG Vital Signs/I&O 02/11/21 10:09 Temp 36.3 Pulse 75 Resp 18 B/P (MAP) 189/109 (135) Pulse Ox 99 O2 Delivery Room Air Capillary Refill : Progress Note #1: Time: 10:27 Progress Note Patient is in no acute distress but we will treat her nausea and headache with some Toradol and Phenergan. She says nausea gets worse with Zofran. We will swab her for COVID-19. She has aseptic vital signs and clear sounding lungs and no labored breathing. Progress Note #2: Time: 10:55 Progress Note Patient's headache and anxiety about Covid are abated. We will allow her to go home. Departure Impression Primary Impression: Viral upper respiratory tract infection with cough Disposition: HOME, SELF-CARE Condition: Stable Departure-Patient Inst. Decision time for Depature: 10:55 Referrals: NICKY THOMPSON MD (PCP/Family) Primary Care Physician Patient Instructions: Viral Upper Respiratory Infection, Adult (DC) Add. Discharge Instructions: Drink plenty of fluids. Hot tea with honey and lemon can be helpful for your sore throat and congestion. Vapor rubs such as Vicks or Mentholatum. Use nasal congestion such as chlorpheniramine 4 mg every 4-6 hours as necessary for nasal congestion causing a cough. Return to the ER if you are having severe shortness of breath, oxygen saturations consistently below 90% or other worrisome symptoms. LAUREL SHEN February 11, 2021 10:26
[2021-02-11] MEDS ORDERED: KETOROLAC 60 MG/2 ML VIAL IM ONE (10:30)
[2021-02-11] MEDS ORDERED: PROMETHAZINE 25 MG (PHENERGAN) TAB PO ONE (10:30)
[2021-02-11] MEDS ORDERED: ACETAMINOPHEN 500 MG TAB (TYLENOL) PO ONE (10:30)
[2021-02-11 11:00] VITALS: BP 179/105
== END 2021-02-11 11:00 | disposition home or self-care (01) ==
LOC: EDUNIT# 10:03 → ER 10:04
DX: J06.9 Acute upper respiratory infection, unspecified (principal); J44.9 Chronic obstructive pulmonary disease, unspecified; E11.9 Type 2 diabetes mellitus without complications; F41.9 Anxiety disorder, unspecified; F31.9 Bipolar disorder, unspecified; K21.9 Gastro-esophageal reflux disease without esophagitis; G89.29 Other chronic pain; M54.9 Dorsalgia, unspecified; G25.81 Restless legs syndrome; M79.7 Fibromyalgia; E66.9 Obesity, unspecified; Z68.41 Body mass index [BMI] 40.0-44.9, adult; Z87.891 Personal history of nicotine dependence; Z99.89 Dependence on other enabling machines and devices; Z88.1 Allergy status to other antibiotic agents; Z91.041 Radiographic dye allergy status; Z88.0 Allergy status to penicillin; Z88.8 Allergy status to other drugs, medicaments and biological substances; Z79.51 Long term (current) use of inhaled steroids; Z79.891 Long term (current) use of opiate analgesic; Z79.84 Long term (current) use of oral hypoglycemic drugs; Z79.899 Other long term (current) drug therapy
CPT/HCPCS: 87636; 99284

== ENCOUNTER 2021-03-15 13:09 | Emergency (ER) | payer MEDICARE, MEDICAID ==
[~2021-03-15] VITALS: Ht 175 cm; Wt 124.0 kg
--- NOTE | 2021-03-15 13:44 | ED Upper Extremity ---
General Chief Complaint: Upper Extremity Stated Complaint: L HAND PAIN Nursing Triage Note: PT AMBULATES TO ED FOR LEFT WRIST/HAND PAIN. PT REPORTS SHE WAS SLEEPING, SHE ROLLED OVER AND HIT WRIST/HAND ON COFFEE TABLE. Nursing Sepsis Screen: No Definite Risk Source: patient Exam Limitations: no limitations (JANELLE ESPITIA APRN) History of Present Illness Date Seen by Provider: Mar 15, 2021 Time Seen by Provider: 13:42 Initial Comments To ER with left lateral wrist and forearm pain after she rolled over in bed and hit it on a coffee table. Onset: just prior to arrival Severity: moderate Pain/Injury Location: left forearm, left wrist Method of Injury: direct blow Modifying Factors: Worse With Movement (JANELLE ESPITIA APRN) Allergies and Home Medications Allergies Coded Allergies: nickel (Verified Allergy, Intermediate, RASH, 12/27/20) doxycycline (Verified Allergy, Mild, HIVES, 12/27/20) Iodinated Contrast Media (Verified Allergy, Unknown, 12/27/20) cobalt (Verified Allergy, Unknown, Hives, 12/27/20) penicillin (Verified Allergy, Unknown, HAS RECEIVED ROCEPHIN, 12/27/20) rash Uncoded Allergies: hexachloride (Allergy, Unknown, Hives, 06/24/19) Home Medications Albuterol Sulfate 1 Puff Puff, 2 PUFF IH Q4H PRN for WHEEZING, (Reported) 1 PUFF = 90 MCG Fluoxetine HCl 40 Mg Capsule, 40 MG PO DAILY, (Reported) Fluticasone/Vilanterol 1 Each Blst.w.dev, 1 EACH IH DAILY, (Reported) Hydrocodone Bit/Acetaminophen 1 Ea Tablet, 1 EA PO Q4H PRN for PAIN-SEVERE (8- 10) Prescribed by: RICHARD MILLER on 12/27/20 0914 Metformin HCl 1,000 Mg Tablet, 1,000 MG PO BID, (Reported) Pantoprazole Sodium 40 Mg Tablet.dr, 40 MG PO DAILY, (Reported) Pregabalin 75 Mg Capsule, 75 MG PO BID, (Reported) Patient Home Medication List Home Medication List Reviewed: Yes (JANELLE ESPITIA APRN) Review of Systems Constitutional: see HPI EENTM: see HPI Respiratory: no symptoms reported Cardiovascular: no symptoms reported Genitourinary: no symptoms reported Musculoskeletal: see HPI Skin: no symptoms reported Psychiatric/Neurological: No Symptoms Reported (JANELLE ESPITIA APRN) Past Xbwhwmh-Akqlmc-Ucrcxn Hx Patient Social History Alcohol Use: Denies Use Type Used: Cigarettes Former Smoker, Quit: May 01, 2008 2nd Hand Smoke Exposure: No Recent Infectious Disease Expo: No Recent Hopitalizations: No (JANELLE ESPITIA APRN) Immunizations Up To Date Tetanus Booster (TDap): Unknown PED Vaccines UTD: No Date of Pneumonia Vaccine: Mar 13, 2018 Date of Influenza Vaccine: Jul 06, 2020 (JANELLE ESPITIA APRN) Seasonal Allergies Seasonal Allergies: Yes (JANELLE ESPITIA APRN) Past Medical History Surgeries: Yes (bilat CTR, L KNEE x12, L shoulder, L TKR, back sx) Abdominal, Gallbladder, Hysterectomy, Oophorectomy, Orthopedic Respiratory: Yes (CPAP) Asthma, Sleep Apnea, COPD Currently Using CPAP: Yes Currently Using BIPAP: No Cardiac: Yes High Cholesterol Neurological: No Reproductive Disorders: No 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 History: Hysterectomy Sexually Transmitted Disease: No HIV/AIDS: No Genitourinary: Yes Kidney Infection, Bladder Infection, UTI-Chronic Gastrointestinal: Yes (INFLAMATION IN COLON, VENTRAL HERNIA) Gastroesophageal Reflux, Chronic Constipation, Chronic Diarrhea, Irritable Bowel Musculoskeletal: Yes (RESTLESS LEG SYNDROME) Arthritis, Fibromyalgia, Chronic Back Pain Endocrine: Yes (OBESITY) Diabetes, Non-Insulin dep HEENT: Yes (GLASSES) Loss of Vision: Bilateral Hearing Impairment: Denies Cancer: No Psychosocial: Yes Anxiety, Bipolar Integumentary: No Blood Disorders: No Adverse Reaction/Blood Tranf: No (N/A) (JANELLE ESPITIA APRN) Family Medical History Arthritis 19 MOTHER, Onset:Unknown Asthma 19 FATHER, Onset:Unknown Cataracts 19 MOTHER, Onset:Unknown Diabetes mellitus 19 MOTHER, Onset:Unknown FH: COPD (chronic obstructive pulmonary disease) 19 FATHER, Onset:Unknown Hypercholesterolemia 19 MOTHER MS (multiple sclerosis) G8 SISTER, Onset:Unknown Physical Exam Vital Signs Vital Signs - First Documented 03/15/21 13:15 Temp 36.8 Pulse 80 Resp 22 B/P (MAP) 132/84 (100) Pulse Ox 95 O2 Delivery Room Air (LAYTON HERNANDEZ MD) Vital Signs Capillary Refill : Less Than 3 Seconds (AJNELLE ESPITIA APRN) Height, Weight, BMI Height: 5'9.00" Weight: 288lbs. 0.0oz. 130.021519wz; 40.00 BMI Method:Stated General Appearance: WD/WN, no apparent distress Neck: non-tender, full range of motion Respiratory: no respiratory distress, no accessory muscle use Elbow/Forearm: normal inspection, no evidence of injury, Left Wrist: Yes normal inspection, Yes pain Hand: Left, soft tissue tenderness Neurologic/Psychiatric: alert, normal mood/affect, oriented x 3 Skin: normal color, warm/dry Forearm and wrist look normal without ecchymosis swelling erythema or other wound. (JANELEL ESPITIA APRN) Progress/Results/Core Measures Results/Orders Vital Signs/I&O 03/15/21 03/15/21 13:15 14:30 Temp 36.8 36.8 Pulse 80 80 Resp 22 22 B/P (MAP) 132/84 (100) 132/84 (100) Pulse Ox 95 95 O2 Delivery Room Air (LAYTON HERNANDEZ MD) Blood Pressure Mean: 100 Departure Impression Primary Impression: Contusion of wrist Disposition: HOME, SELF-CARE Condition: Stable Departure-Patient Inst. Decision time for Depature: 13:44 (JANELLE ESPITIA APRN) Referrals: NICKY THOMPSON MD (PCP) Primary Care Physician Patient Instructions: Contusion (DC) Add. Discharge Instructions: 1. Ice pack to the area. Tylenol and ibuprofen for pain. Return to ER for any worsening. All discharge instructions reviewed with patient and/or family. Voiced understanding. Attending physician statement: I was physically present as attending physician in the emergency room at the time of this patient's care, but I was not directly involved in the patient's care. (LAYTON HERNANDEZ MD) JANELLE ESPITIA APRN Mar 15, 2021 13:44 LAYTON HERNANDEZ MD Mar 15, 2021 19:34
--- NOTE | 2021-03-15 14:05 | Diagnostic Imaging Report ---
INDICATION: Left forearm pain AP and lateral views of the left forearm are obtained. No fracture or acute bony abnormality is seen. IMPRESSION: Negative left forearm. Dictated by: Dictated on workstation # [id number]
--- NOTE | 2021-03-15 14:06 | Diagnostic Imaging Report ---
INDICATION: Left hand and wrist pain. TIME OF EXAM: 01:52 p.m. TECHNIQUE: Three views of the left hand were obtained. FINDINGS: Distal radius and ulna are intact. Carpus is intact. Metacarpals are intact. Phalanges are unremarkable. No fractures are seen. IMPRESSION: No acute bony abnormality is detected. Dictated by: Dictated on workstation # [id number]
[2021-03-15 14:30] VITALS: BP 132/84
== END 2021-03-15 14:24 | disposition home or self-care (01) ==
LOC: EDUNIT# 13:09 → ER 13:11
DX: S60.212D Contusion of left wrist, subsequent encounter (principal); J44.9 Chronic obstructive pulmonary disease, unspecified; K21.9 Gastro-esophageal reflux disease without esophagitis; G89.29 Other chronic pain; E66.9 Obesity, unspecified; M54.9 Dorsalgia, unspecified; E11.9 Type 2 diabetes mellitus without complications; Z87.891 Personal history of nicotine dependence; Z68.41 Body mass index [BMI] 40.0-44.9, adult; Z79.899 Other long term (current) drug therapy; Z79.84 Long term (current) use of oral hypoglycemic drugs; Z79.891 Long term (current) use of opiate analgesic; W22.8XXA Striking against or struck by other objects, initial encounter
CPT/HCPCS: 73090; 73130

== ENCOUNTER 2021-04-02 17:17 | Emergency (ER) | payer MEDICARE, MEDICAID ==
[~2021-04-02] VITALS: Ht 175.3 cm; Wt 122.5 kg
[~2021-04-02 17:17] MED LIST changes: +DOXY-311 PO; -DOXY100C42 PO; -OMEP40CA27 PO; +OMEP40CA6 PO
--- NOTE | 2021-04-02 17:34 | ED Chest Pain ---
General Chief Complaint: Chest Pain Stated Complaint: CHEST PAIN / SOA Source: patient Exam Limitations: no limitations History of Present Illness Date Seen by Provider: Apr 02, 2021 Time Seen by Provider: 17:33 Initial Comments To ER with a 2-hour history of chest pain shortness of breath pain radiating down the left arm. Timing/Duration: changing over time Severity/Quality: moderate Location: other Radiation: no radiation Activities at Onset: none ASA po VEHICLE CARE SPECIALIST: No NTG SL VEHICLE CARE SPECIALIST: No Associated Symptoms: denies symptoms Allergies and Home Medications Allergies Coded Allergies: nickel (Verified Allergy, Intermediate, RASH, 12/27/20) doxycycline (Verified Allergy, Mild, HIVES, 12/27/20) Iodinated Contrast Media (Verified Allergy, Unknown, 12/27/20) cobalt (Verified Allergy, Unknown, Hives, 12/27/20) penicillin (Verified Allergy, Unknown, HAS RECEIVED ROCEPHIN, 12/27/20) rash Uncoded Allergies: hexachloride (Allergy, Unknown, Hives, 06/24/19) Home Medications Albuterol Sulfate 1 Puff Puff, 2 PUFF IH Q4H PRN for WHEEZING, (Reported) 1 PUFF = 90 MCG Fluoxetine HCl 40 Mg Capsule, 40 MG PO DAILY, (Reported) Fluticasone/Vilanterol 1 Each Blst.w.dev, 1 EACH IH DAILY, (Reported) Hydrocodone Bit/Acetaminophen 1 Ea Tablet, 1 EA PO Q4H PRN for PAIN-SEVERE (8- 10) Prescribed by: RICHARD MILLER on 12/27/20 0914 Metformin HCl 1,000 Mg Tablet, 1,000 MG PO BID, (Reported) Pantoprazole Sodium 40 Mg Tablet.dr, 40 MG PO DAILY, (Reported) Pregabalin 75 Mg Capsule, 75 MG PO BID, (Reported) Patient Home Medication List Home Medication List Reviewed: Yes Review of Systems Review of Systems Constitutional: see HPI; No chills, No fever EENTM: No Symptoms Reported Respiratory: No Symptoms Reported; Denies Cough Cardiovascular: No Symptoms Reported Gastrointestinal: No Symptoms Reported Genitourinary: No Symptoms Reported Musculoskeletal: no symptoms reported Skin: no symptoms reported Psychiatric/Neurological: No Symptoms Reported Hematologic/Lymphatic: No Symptoms Reported Past Urwomgt-Oupwld-Zsgzpe Hx Patient Social History Tobacco Use?: No Substance use?: No Alcohol Use?: No Pt feels they are or have been: No Immunizations Up To Date Tetanus Booster (TDap): Unknown PED Vaccines UTD: No Seasonal Allergies Seasonal Allergies: Yes Past Medical History Surgeries: Yes (bilat CTR, L KNEE x12, L shoulder, L TKR, back sx) Abdominal, Gallbladder, Hysterectomy, Oophorectomy, Orthopedic Respiratory: Yes (CPAP) Asthma, Sleep Apnea, COPD Currently Using CPAP: Yes Currently Using BIPAP: No Cardiac: Yes High Cholesterol Neurological: No Reproductive Disorders: No 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 Sexually Transmitted Disease: No HIV/AIDS: No Genitourinary: Yes Kidney Infection, Bladder Infection, UTI-Chronic Gastrointestinal: Yes (INFLAMATION IN COLON, VENTRAL HERNIA) Gastroesophageal Reflux, Chronic Constipation, Chronic Diarrhea, Irritable Bowel Musculoskeletal: Yes (RESTLESS LEG SYNDROME) Arthritis, Fibromyalgia, Chronic Back Pain Endocrine: Yes (OBESITY) Diabetes, Non-Insulin dep HEENT: Yes (GLASSES) Loss of Vision: Bilateral Hearing Impairment: Denies Cancer: No Psychosocial: Yes Anxiety, Bipolar Integumentary: No Blood Disorders: No Adverse Reaction/Blood Tranf: No (N/A) Family Medical History Arthritis 19 MOTHER, Onset:Unknown Asthma 19 FATHER, Onset:Unknown Cataracts 19 MOTHER, Onset:Unknown Diabetes mellitus 19 MOTHER, Onset:Unknown FH: COPD (chronic obstructive pulmonary disease) 19 FATHER, Onset:Unknown Hypercholesterolemia 19 MOTHER MS (multiple sclerosis) G8 SISTER, Onset:Unknown Physical Exam Vital Signs Vital Signs - First Documented 04/02/21 17:23 Temp 36.4 Pulse 65 Resp 19 B/P (MAP) 184/117 (139) O2 Delivery Room Air Capillary Refill : Less Than 3 Seconds Height, Weight, BMI Height: 5'9.00" Weight: 288lbs. 0.0oz. 130.750772il; 40.00 BMI Method:Stated General Appearance: No Apparent Distress, WD/WN, Obese Neck: Full Range of Motion, Normal Inspection Respiratory: No Accessory Muscle Use, No Respiratory Distress, Decreased Breath Sounds Cardiovascular: Regular Rate, Rhythm, Normal Peripheral Pulses Gastrointestinal: Non Tender, Soft Extremity: Normal Capillary Refill, Normal Inspection Neurologic/Psychiatric: Alert, Oriented x3 Skin: Normal Color, Warm/Dry Progress/Results/Core Measures Results/Orders Lab Results Laboratory Tests Test 04/02/21 17:30 04/02/21 17:48 04/02/21 19:50 Range/Units White Blood Count 8.0 4.3-11.0 10^3/uL Red Blood Count 4.43 3.80-5.11 10^6/uL Hemoglobin 11.4 L 11.5-16.0 g/dL Hematocrit 36 35-52 % Mean Corpuscular Volume 82 80-99 fL Mean Corpuscular Hemoglobin 26 25-34 pg Mean Corpuscular Hemoglobin Concent 31 L 32-36 g/dL Red Cell Distribution Width 14.7 H 10.0-14.5 % Platelet Count 194 130-400 10^3/uL Mean Platelet Volume 12.6 H 9.0-12.2 fL Immature Granulocyte % (Auto) 0 % Neutrophils (%) (Auto) 58 42-75 % Lymphocytes (%) (Auto) 32 12-44 % Monocytes (%) (Auto) 6 0-12 % Eosinophils (%) (Auto) 3 0-10 % Basophils (%) (Auto) 0 0-10 % Neutrophils # (Auto) 4.7 1.8-7.8 10^3/uL Lymphocytes # (Auto) 2.6 1.0-4.0 10^3/uL Monocytes # (Auto) 0.5 0.0-1.0 10^3/uL Eosinophils # (Auto) 0.2 0.0-0.3 10^3/uL Basophils # (Auto) 0.0 0.0-0.1 10^3/uL Immature Granulocyte # (Auto) 0.0 0.0-0.1 10^3/uL Prothrombin Time 12.0 L 12.2-14.7 SEC INR Comment 0.9 0.8-1.4 Activated Partial Thromboplast Time 26 24-35 SEC Sodium Level 138 135-145 MMOL/L Potassium Level 3.8 3.6-5.0 MMOL/L Chloride Level 104 98-107 MMOL/L Carbon Dioxide Level 23 21-32 MMOL/L Anion Gap 11 5-14 MMOL/L Blood Urea Nitrogen 14 7-18 MG/DL Creatinine 0.93 0.60-1.30 MG/DL Estimat Glomerular Filtration Rate > 60 BUN/Creatinine Ratio 15 Glucose Level 222 H 70-105 MG/DL Calcium Level 9.0 8.5-10.1 MG/DL Corrected Calcium 9.2 8.5-10.1 MG/DL Magnesium Level 1.8 1.6-2.4 MG/DL Total Bilirubin 0.3 0.1-1.0 MG/DL Aspartate Amino Transf (AST/SGOT) 47 H 5-34 U/L Alanine Aminotransferase (ALT/SGPT) 48 0-55 U/L Alkaline Phosphatase 120 40-136 U/L Myoglobin 23.0 10.0-92.0 NG/ML Troponin I < 0.028 < 0.028 <0.028 NG/ML Total Protein 7.3 6.4-8.2 GM/DL Albumin 3.8 3.2-4.5 GM/DL Influenza Type A (RT-PCR) Not Detected Not Detecte Influenza Type B (RT-PCR) Not Detected Not Detecte SARS-CoV-2 RNA (RT-PCR) Not Detected Not Detecte My Orders Orders - JANELLE ESPITIA APRN Lorazepam Injection (Ativan Injection) (04/02/21 17:45) Ketorolac Injection (Toradol Injection) (04/02/21 17:45) Troponin I (04/02/21 19:30) Medications Given in ED Current Medications Medications Dose Ordered Sig/Veronika Route Start Time Stop Time Status Last Admin Dose Admin Ketorolac Tromethamine 15 mg ONCE ONCE IVP 04/02/21 17:45 04/02/21 17:46 DC 04/02/21 17:44 15 MG Lorazepam 0.5 mg ONCE PRN IVP 04/02/21 17:45 04/02/21 17:44 0.5 MG Vital Signs/I&O 04/02/21 04/02/21 17:23 17:23 Temp 36.4 Pulse 65 Resp 19 B/P (MAP) 184/117 (139) O2 Delivery Room Air Room Air Departure Impression Primary Impression: Chest pain Disposition: HOME, SELF-CARE Condition: Stable Departure-Patient Inst. Decision time for Depature: 21:00 Referrals: NICKY THOMPSON MD (PCP/Family) Primary Care Physician Patient Instructions: Chest Pain (DC) JANELLE ESPITIA APRN Apr 02, 2021 17:34
[2021-04-02] MEDS ORDERED: KETOROLAC 30 MG/ML VIAL IVP ONE (17:45)
[2021-04-02] MEDS ORDERED: LORazepam INJ 2 MG/ML (ATIVAN) VIAL IVP PRN (17:45)
[2021-04-02 17:48] LABS: BASOPHILS % (AUTO) 0 % (0-10); EOSINOPHILS # (AUTO) 0.2 10^3/uL (0.0-0.3); EOSINOPHILS % (AUTO) 3 % (0-10); HEMATOCRIT 36 % (35-52); HEMOGLOBIN 11.4 g/dL (11.5-16.0); LYMPHOCYTES # (AUTO) 2.6 10^3/uL (1.0-4.0); LYMPHOCYTES % (AUTO) 32 % (12-44); MEAN CORPUSCULAR HEMOGLOBIN 26 pg (25-34); MEAN CORPUSCULAR HGB CONC 31 g/dL (32-36); MEAN CORPUSCULAR VOLUME 82 fL (80-99); MEAN PLATELET VOLUME 12.6 fL (9.0-12.2); MONOCYTES # (AUTO) 0.5 10^3/uL (0.0-1.0); MONOCYTES % (AUTO) 6 % (0-12); NEUTROPHILS # (AUTO) 4.7 10^3/uL (1.8-7.8); NEUTROPHILS % (AUTO) 58 % (42-75); PLATELET COUNT 194 10^3/uL (130-400)
[2021-04-02 17:54] LABS: ALBUMIN 3.8 GM/DL (3.2-4.5); CHLORIDE 104 MMOL/L (98-107); POTASSIUM 3.8 MMOL/L (3.6-5.0); SODIUM 138 MMOL/L (135-145)
[2021-04-02 17:55] LABS: INR 0.9 (0.8-1.4)
[2021-04-02 17:57] LABS: GLUCOSE 222 MG/DL (70-105); TOTAL PROTEIN 7.3 GM/DL (6.4-8.2)
[2021-04-02 17:58] LABS: BILIRUBIN,TOTAL 0.3 MG/DL (0.1-1.0); CARBON DIOXIDE 23 MMOL/L (21-32)
[2021-04-02 18:00] LABS: ALKALINE PHOSPHATASE 120 U/L (40-136); CREATININE SERUM 0.93 MG/DL (0.60-1.30); GFR ESTIMATED > 60
[2021-04-02 18:01] LABS: BUN/CREATININE RATIO 15
[2021-04-02 18:03] LABS: ALANINE AMINOTRANSFERASE 48 U/L (0-55); MAGNESIUM 1.8 MG/DL (1.6-2.4)
--- NOTE | 2021-04-02 18:11 | Diagnostic Imaging Report ---
EXAMINATION: Chest 1 view HISTORY: Chest pain. COMPARISON: 01/05/2020. FINDINGS: The lung volumes are normal. No focal consolidation is seen. No large pleural effusion or pneumothorax is seen. Stable prominent cardiac silhouette.. No acute osseous abnormality is seen. IMPRESSION: 1. Cardiomegaly. No overt pulmonary edema. Dictated by: Dictated on workstation # [id number]
[2021-04-02 21:04] VITALS: BP 154/86
== END 2021-04-02 21:04 | disposition home or self-care (01) ==
LOC: EDUNIT# 17:17 → ER 17:18
DX: R07.9 Chest pain, unspecified (principal); E66.9 Obesity, unspecified; J44.9 Chronic obstructive pulmonary disease, unspecified; G89.29 Other chronic pain; M54.9 Dorsalgia, unspecified; E11.9 Type 2 diabetes mellitus without complications; K21.9 Gastro-esophageal reflux disease without esophagitis; Z20.822 Contact with and (suspected) exposure to COVID-19; Z68.41 Body mass index [BMI] 40.0-44.9, adult; Z79.84 Long term (current) use of oral hypoglycemic drugs; Z79.899 Other long term (current) drug therapy; Z79.891 Long term (current) use of opiate analgesic
CPT/HCPCS: 36415; 71045; 80053; 83735; 83874; 84484; 85025; 85610; 85730; 87636; 93005; 93041

== ENCOUNTER 2021-04-18 06:18 | Outpatient (CLI) | payer MEDICARE, MEDICAID ==
[~2021-04-18] VITALS: Ht 175 cm; Wt 131.0 kg
[~2021-04-18 06:18] MED LIST changes: -SULF1TAB35 PO; +SULF1TAB38 PO
== END 2021-04-18 13:14 | disposition home or self-care (01) ==
LOC: PREOP 06:18
PROVIDERS: ATTEND Orthopaedic Surgery
DX: Z01.818 Encounter for other preprocedural examination (principal)

== ENCOUNTER 2021-04-25 06:55 | Day surgery (SDC) | payer MEDICARE, MEDICAID ==
--- NOTE | 2021-04-17 19:48 | HISTORY AND PHYSICAL ---
DATE OF SERVICE: ADMISSION HISTORY AND PHYSICAL This will be for outpatient surgery on 04/25/2021 for right knee arthroscopy. HISTORY OF PRESENT ILLNESS: The patient is a 60-year-old female, who has previously undergone right knee arthroscopy, but reports recurrent catching, locking and swelling. She reports pain in the anterior aspect of her knee. She has known arthrosis in her patellofemoral joint space and due to persistent symptoms and failure to improve with extensive conservative measures, the patient elected to proceed with surgical intervention. REVIEW OF SYSTEMS: No chest pain, no shortness of breath, no dysuria. PAST MEDICAL HISTORY: Diabetes, COPD, bipolar disorder, hypercholesterolemia, allergic rhinitis, cardiomegaly, obesity, asthma. PAST SURGICAL HISTORY: Left knee arthroscopy, left total knee arthroplasty, left shoulder arthroscopy, bilateral carpal and cubital tunnel releases, right knee arthroscopy, cholecystectomy and hysterectomy. FAMILY HISTORY: Significant for multiple sclerosis, COPD, diabetes, hypertension. PRIMARY CARE PROVIDER: Dr. Espino. MEDICATIONS: Ibuprofen, fluoxetine, Breo Ellipta, Lyrica, metformin, fluticasone and Protonix. ALLERGIES: METAL, PENICILLIN, DOXYCYCLINE, VITAMIN D, B12, and CONTRAST DYE. SOCIAL HISTORY: The patient drinks alcohol socially. Denies tobacco use since 2007. PHYSICAL EXAMINATION: GENERAL: The patient is well-developed, well-nourished, in no acute distress. HEENT: Normocephalic, atraumatic. Pupils are equal, round and reactive to light. Oropharynx is clear. NECK: Supple, with no lymphadenopathy. LUNGS: Clear to auscultation bilaterally. HEART: Regular rate and rhythm. ABDOMEN: Soft, nontender, nondistended. EXTREMITIES: The right knee demonstrates marked patellofemoral crepitus and pain with patellar loading. She has a slight effusion. Range of motion is 0/0/135. She has negative straight leg raise. She is mildly tender lateral joint line and has mild pain laterally with Pat's. IMPRESSION: Chondromalacia of the patellofemoral joint, right knee. PLAN: Right knee arthroscopy with chondroplasty. The risks, benefits, options, ramifications and recovery have been discussed at length with the patient. She understands and wishes to proceed. Job ID: [id number] DocumentID: [id number] Dictated Date: 04/16/2021 13:39:27 Dental Equipment Installer And Servicer Date: 04/16/2021 14:06:36 Dictated By: KISHA BALDWIN MD
[2021-04-25] VITALS (13 sets, daily range): BP systolic 89–157; BP diastolic 55–87
[~2021-04-25] VITALS: Ht 175 cm; Wt 131.0 kg
[2021-04-25] MEDS ORDERED: LACTATED RINGERS 1,000 ML IV PRN ×2 (07:15→11:15)
[2021-04-25] MEDS ORDERED: CLINDAMYCIN 600 MG/50 ML IVPB 50 ML IV ONE (07:15)
[2021-04-25] MEDS ORDERED: morphine PF (DURAMORPH) 10 MG/10 ML AMP ONE (07:21)
[2021-04-25] MEDS ORDERED: BUPIVACAINE 0.25% 30 ML (SENSORCAINE) VIAL ONE (07:21)
[2021-04-25] MEDS ORDERED: proPOfol 200 MG/20 ML (DIPRIVAN) VIAL IV ONE (07:27)
[2021-04-25] MEDS ORDERED: LIDOCAINE PF 2% 5 ML (XYLOCAINE) VIAL ONE (07:27)
[2021-04-25] MEDS ORDERED: ONDANSETRON 4 MG/2 ML (SDV) Z0FRAN ONE (07:27)
[2021-04-25] MEDS ORDERED: SEVOFLURANE (ULTANE) 15 ML INHAL SOLN ONE (07:27)
[2021-04-25] MEDS ORDERED: fentaNYL INJ 100 MCG/2 ML AMP ONE (07:28)
[2021-04-25] MEDS ORDERED: MIDAZOLAM 2 MG/2 ML (VERSED) VIAL ONE (07:28)
--- NOTE | 2021-04-25 07:35 | Progress Note-Pre Operative ---
Pre-Operative Progress Note H&P Reviewed The H&P was reviewed, patient examined and no changes noted. Date Seen by Provider: Apr 25, 2021 Time Seen by Provider: 07:30 Date H&P Reviewed: Apr 25, 2021 Time H&P Reviewed: 07:11 Pre-Operative Diagnosis: right knee chondromalacia KISHA BALDWIN MD Apr 25, 2021 07:35
--- NOTE | 2021-04-25 07:36 | Progress Note-Post Operative ---
Post-Operative Progess Note Surgeon (s)/Metal Rivet Machine Operator (s) Surgeon KISHA BALDWIN MD Metal Rivet Machine Operator: none Pre-Operative Diagnosis right knee chondromalacia Post-Operative Diagnosis right knee chondromalacia of the patella and lateral tibial plateau and lateral meniscus tear Procedure & Operative Findings Date of Procedure 04/25/21 Procedure Performed/Findings right knee arthroscopic chondroplasty of the patella and lateral tibial plateau and partial lateral meniscectomy Anesthesia Type GETA Estimated Blood Loss Estimated blood loss (mL): minimal Specimens/Packing Specimens Removed none Packing: none KISHA BALDWIN MD Apr 25, 2021 07:36
--- NOTE | 2021-04-25 09:24 | Anesthesia-General Post-Op ---
General Patient Condition Mental Status/LOC: Same as Preop Cardiovascular: Satisfactory Nausea/Vomiting: Absent Respiratory: Satisfactory Pain: Controlled Complications: Absent Post Op Complications Complications None Follow Up Care/Instructions Patient Instructions None needed. Anesthesia/Patient Condition Patient Condition Patient is doing well, no complaints, stable vital signs, no apparent adverse anesthesia problems. No complications reported per nursing. SUE MONTANA CRNA Apr 25, 2021 09:24
[2021-04-25] MEDS ORDERED: MEPERIDINE (DEMEROL) INJ 50 MG/ML IVP ONE (09:30)
[2021-04-25] MEDS ORDERED: morphine INJ 10 MG/ML 1ML (SYR OR VIAL) IVP ONE (09:30)
[2021-04-25] MEDS ORDERED: ONDANSETRON 4 MG/2 ML (SDV) Z0FRAN IVP PRN (09:30)
[2021-04-25] MEDS ORDERED: HYDROcodone/APAP 7.5 MG/325 MG (LORTAB, LORCET PLUS) TABLET PO ONE (11:00)
[2021-04-25] MEDS ORDERED: diphenhydrAMINE 50 MG/ML INJ (BENADRYL) ONE (11:09)
[2021-04-25] MEDS ORDERED: diphenhydrAMINE 50 MG/ML INJ (BENADRYL) IVP SCH (11:15)
--- NOTE | 2021-04-25 13:35 | OPERATIVE REPORT ---
DATE OF SERVICE: 04/25/2021 PREOPERATIVE DIAGNOSES: 1. Right knee lateral meniscus tear. 2. Right knee chondromalacia of the patella. POSTOPERATIVE DIAGNOSES: 1. Right knee lateral meniscus tear. 2. Right knee chondromalacia of the patella. 3. 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 PROCEDURES PERFORMED: 1. Right knee arthroscopic partial lateral meniscectomy. 2. Right knee arthroscopic chondroplasty of the patella. 3. Right knee arthroscopic chondroplasty of the lateral tibial plateau. SURGEON: Kisha Baldwin MD. MEDIA SALES REPRESENTATIVE: None. ANESTHESIA: General endotracheal by Kash An CRNA. TOURNIQUET TIME: Not applicable. ESTIMATED BLOOD LOSS: Minimal. DRAINS: None. COMPLICATIONS: None. POSTOPERATIVE PLAN: Routine arthroscopy protocol. The patient was transferred to the recovery room awake and in stable condition. STATEMENT OF MEDICAL NECESSITY: The patient is a 60-year-old female with the complaints of right lateral and anterior knee pain. She had previously undergone arthroscopy. She was not felt to be a candidate for total knee arthroplasty. The patient was counseled regarding treatment options. She complained of mechanical symptoms and failure to improve with injections, therapy and activity modifications. Because of this, the patient elected to proceed with surgical intervention. Examination under anesthesia revealed range of motion of 0/0/135 with negative Rg, negative anterior and posterior drawer. No varus or valgus laxity and negative pivot shift. Arthroscopic findings of the patella demonstrated grade III chondral flaps over the lateral facet of the patella in a 10 x 10 area of the trochlea demonstrated no significant chondral abnormalities. Medial and lateral gutters were clear. The medial compartment demonstrated no meniscal or chondral pathology. The ACL and PCL were intact. Lateral compartment demonstrated grade III chondral flap centrally in a 10 x 10 area with central grade IV chondral loss in the lateral meniscus demonstrated a flap tear of the posterior horn at the 12 o'clock position involving approximately 20% of the posterior horn. DESCRIPTION OF PROCEDURE: After the risks and benefits of the procedure were discussed and questions were answered, an informed consent was signed and placed on chart, the operative site was confirmed in the preoperative holding area initialed by the surgeon. The patient was then transferred to the operating room and after adequate levels of general endotracheal anesthetic were obtained, a timeout was called confirming the operative site. Examination under anesthesia was performed with the above findings noted. The right lower extremity was prepped and draped in the usual sterile fashion. Knee joint was injected with 60 mL of fluid and a standard inferolateral portal was placed for the arthroscope under direct visualization, inferior medial portal was created, the menisci and cruciates were carefully probed with the above findings noted. The unstable chondral flaps on the patella were debrided with a shaver back to a stable edge. Scope was redirected into the lateral compartment and the unstable chondral flaps in the lateral tibial plateau were debrided with a shaver back to a stable edge and lateral meniscus tear was debrided with a shaver back to a stable edge. The knee was copiously irrigated. The portal sites were closed with 4-0 nylon in a simple interrupted fashion. Knee was injected with Duramorph. The portal sites were infiltrated with plain Marcaine. A soft dressing was applied. The patient was transferred to the recovery room awake and in stable condition. Job ID: [id number] DocumentID: [id number] Dictated Date: 04/25/2021 09:19:28 Learning Disabilities Resource Teacher Date: 04/25/2021 13:34:40 Dictated By: KISHA BALDWIN MD
== END 2021-04-25 12:20 | disposition home or self-care (01) ==
LOC: SDC 06:55
PROVIDERS: ATTEND Orthopaedic Surgery
DX: S83.281A Other tear of lateral meniscus, current injury, right knee, initial encounter (principal); M22.41 Chondromalacia patellae, right knee; J44.9 Chronic obstructive pulmonary disease, unspecified; G47.33 Obstructive sleep apnea (adult) (pediatric); F32.9 Major depressive disorder, single episode, unspecified; K21.9 Gastro-esophageal reflux disease without esophagitis; F41.9 Anxiety disorder, unspecified; E78.00 Pure hypercholesterolemia, unspecified; E66.9 Obesity, unspecified; E11.9 Type 2 diabetes mellitus without complications; Z68.42 Body mass index [BMI] 45.0-49.9, adult; Z79.899 Other long term (current) drug therapy; Z79.51 Long term (current) use of inhaled steroids; Z79.84 Long term (current) use of oral hypoglycemic drugs
CPT/HCPCS: 82947; 87081

== ENCOUNTER 2021-05-06 16:16 | Emergency (ER) | payer MEDICARE, MEDICAID ==
[~2021-05-06] VITALS: Ht 175.2 cm; Wt 124.2 kg
[2021-05-06 17:29] LABS: BASOPHILS % (AUTO) 0 % (0-10); EOSINOPHILS % (AUTO) 1 % (0-10); HEMATOCRIT 37 % (35-52); HEMOGLOBIN 11.9 g/dL (11.5-16.0); LYMPHOCYTES % (AUTO) 15 % (12-44); MEAN CORPUSCULAR HEMOGLOBIN 26 pg (25-34); MEAN CORPUSCULAR HGB CONC 32 g/dL (32-36); MEAN CORPUSCULAR VOLUME 82 fL (80-99); MONOCYTES # (AUTO) 0.5 10^3/uL (0.0-1.0); MONOCYTES % (AUTO) 8 % (0-12); NEUTROPHILS # (AUTO) 4.7 10^3/uL (1.8-7.8); NEUTROPHILS % (AUTO) 75 % (42-75); PLATELET COUNT 168 10^3/uL (130-400); WHITE BLOOD COUNT 6.2 10^3/uL (4.3-11.0)
[2021-05-06] MEDS ORDERED: PROCHLORPERAZINE 10 MG/2ML INJ (COMPAZINE) IV ONE (17:30)
[2021-05-06] MEDS ORDERED: diphenhydrAMINE 50 MG/ML INJ (BENADRYL) IVP ONE (17:30)
[2021-05-06] MEDS ORDERED: LACTATED RINGERS 1,000 ML IV SCH (17:30)
[2021-05-06] MEDS ORDERED: KETOROLAC 30 MG/ML VIAL IVP ONE (17:30)
--- NOTE | 2021-05-06 17:34 | ED General ---
General Chief Complaint: Abdominal/GI Problems Stated Complaint: COUGH, VOMITING, FEVER Source of Information: Patient Exam Limitations: No Limitations History of Present Illness Date Seen by Provider: May 06, 2021 Time Seen by Provider: 17:32 Initial Comments ER with headache nausea vomiting body aches that began on , 05/03/2021. Unvaccinated against Covid. Timing/Duration: 1-2 Days Severity: Moderate Associated Systoms: Denies Symptoms Allergies and Home Medications Allergies Coded Allergies: nickel (Verified Allergy, Intermediate, RASH, 04/18/21) doxycycline (Verified Allergy, Mild, HIVES, 04/18/21) Iodinated Contrast Media (Verified Allergy, Unknown, 04/18/21) cobalt (Verified Allergy, Unknown, Hives, 04/18/21) penicillin (Verified Allergy, Unknown, HAS RECEIVED ROCEPHIN, 04/18/21) rash Uncoded Allergies: hexachloride (Allergy, Unknown, Hives, 06/24/19) Home Medications Albuterol Sulfate 1 Puff Puff, 2 PUFF IH Q4H PRN for WHEEZING, (Reported) 1 PUFF = 90 MCG Fluoxetine HCl 40 Mg Capsule, 40 MG PO DAILY, (Reported) Fluticasone/Vilanterol 1 Each Blst.w.dev, 1 EACH IH DAILY, (Reported) Hydrocodone Bit/Acetaminophen 1 Ea Tablet, 1 EA PO Q4H PRN for PAIN-SEVERE (8-1 0) Prescribed by: RICHARD MILLER on 12/27/20 0914 Metformin HCl 1,000 Mg Tablet, 1,000 MG PO BID, (Reported) Pantoprazole Sodium 40 Mg Tablet.dr, 40 MG PO DAILY, (Reported) Pregabalin 75 Mg Capsule, 75 MG PO BID, (Reported) Patient Home Medication List Home Medication List Reviewed: Yes Review of Systems Review of Systems Constitutional: see HPI, fever, malaise EENTM: see HPI Respiratory: no symptoms reported Cardiovascular: no symptoms reported Gastrointestinal: abdominal pain, nausea, vomiting Genitourinary: no symptoms reported Musculoskeletal: no symptoms reported Skin: no symptoms reported Psychiatric/Neurological: No Symptoms Reported Hematologic/Lymphatic: No Symptoms Reported Past Xzrlxml-Pisonk-Atpykd Hx Immunizations Up To Date Tetanus Booster (TDap): Unknown PED Vaccines UTD: No Seasonal Allergies Seasonal Allergies: Yes Past Medical History Surgeries: Yes (bilat CTR, L KNEE x12, L shoulder, L TKR, back sx) Abdominal, Gallbladder, Hysterectomy, Oophorectomy, Orthopedic Respiratory: Yes (CPAP) Asthma, Sleep Apnea, COPD Currently Using CPAP: No Currently Using BIPAP: No Cardiac: Yes High Cholesterol Neurological: No Reproductive Disorders: No 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 Sexually Transmitted Disease: No HIV/AIDS: No Genitourinary: Yes Kidney Infection, Bladder Infection, UTI-Chronic Gastrointestinal: Yes (INFLAMATION IN COLON, VENTRAL HERNIA) Gastroesophageal Reflux, Chronic Constipation, Chronic Diarrhea, Irritable Bowel Musculoskeletal: Yes (RESTLESS LEG SYNDROME) Arthritis, Fibromyalgia, Chronic Back Pain Endocrine: Yes (OBESITY) Diabetes, Non-Insulin dep HEENT: Yes (GLASSES) Loss of Vision: Bilateral Hearing Impairment: Denies Cancer: No Psychosocial: Yes Anxiety, Bipolar Integumentary: No Blood Disorders: No Adverse Reaction/Blood Tranf: No (N/A) Family Medical History Arthritis 19 MOTHER, Onset:Unknown Asthma 19 FATHER, Onset:Unknown Cataracts 19 MOTHER, Onset:Unknown Diabetes mellitus 19 MOTHER, Onset:Unknown FH: COPD (chronic obstructive pulmonary disease) 19 FATHER, Onset:Unknown Hypercholesterolemia 19 MOTHER MS (multiple sclerosis) G8 SISTER, Onset:Unknown Physical Exam Vital Signs Vital Signs - First Documented 05/06/21 17:10 Temp 38.7 Pulse 85 Resp 18 B/P (MAP) 163/87 (112) Pulse Ox 93 Capillary Refill : Height, Weight, BMI Height: 5'9.00" Weight: 288lbs. 0.0oz. [id number]; 42.77 BMI Method:Stated General Appearance: No Apparent Distress, WD/WN, Chronically ill, Obese, Other (Oxygen saturation 97% on room air with no increased respiratory effort. She is not tachycardic or hypotensive.) Eyes: Bilateral Eye Normal Inspection, Bilateral Eye PERRL, Bilateral Eye EOMI HEENT: PERRL/EOMI, TMs Normal Neck: Full Range of Motion, Normal Inspection Respiratory: No Accessory Muscle Use, No Respiratory Distress Cardiovascular: Regular Rate, Rhythm, Normal Peripheral Pulses Gastrointestinal: Normal Bowel Sounds, Non Tender, Soft Extremity: Normal Capillary Refill, Normal Inspection Neurologic/Psychiatric: Alert, Oriented x3 Skin: Normal Color, Warm/Dry Progress/Results/Core Measures Suspected Sepsis SIRS Temperature: Pulse: Respiratory Rate: Laboratory Tests 05/06/21 17:20: White Blood Count 6.2 Blood Pressure / Mean: Laboratory Tests 05/06/21 17:20: Creatinine 0.88, Platelet Count 168, Total Bilirubin 0.4 Results/Orders Lab Results Laboratory Tests Test 05/06/21 16:33 05/06/21 17:20 Range/Units SARS-CoV-2 RNA (RT-PCR) Detected H Not Detecte White Blood Count 6.2 4.3-11.0 10^3/uL Red Blood Count 4.52 3.80-5.11 10^6/uL Hemoglobin 11.9 11.5-16.0 g/dL Hematocrit 37 35-52 % Mean Corpuscular Volume 82 80-99 fL Mean Corpuscular Hemoglobin 26 25-34 pg Mean Corpuscular Hemoglobin Concent 32 32-36 g/dL Red Cell Distribution Width 14.6 H 10.0-14.5 % Platelet Count 168 130-400 10^3/uL Mean Platelet Volume 12.0 9.0-12.2 fL Immature Granulocyte % (Auto) 1 % Neutrophils (%) (Auto) 75 42-75 % Lymphocytes (%) (Auto) 15 12-44 % Monocytes (%) (Auto) 8 0-12 % Eosinophils (%) (Auto) 1 0-10 % Basophils (%) (Auto) 0 0-10 % Neutrophils # (Auto) 4.7 1.8-7.8 10^3/uL Lymphocytes # (Auto) 1.0 1.0-4.0 10^3/uL Monocytes # (Auto) 0.5 0.0-1.0 10^3/uL Eosinophils # (Auto) 0.0 0.0-0.3 10^3/uL Basophils # (Auto) 0.0 0.0-0.1 10^3/uL Immature Granulocyte # (Auto) 0.0 0.0-0.1 10^3/uL Sodium Level 136 135-145 MMOL/L Potassium Level 3.7 3.6-5.0 MMOL/L Chloride Level 100 98-107 MMOL/L Carbon Dioxide Level 22 21-32 MMOL/L Anion Gap 14 5-14 MMOL/L Blood Urea Nitrogen 9 7-18 MG/DL Creatinine 0.88 0.60-1.30 MG/DL Estimat Glomerular Filtration Rate 66 BUN/Creatinine Ratio 10 Glucose Level 169 H 70-105 MG/DL Calcium Level 8.9 8.5-10.1 MG/DL Corrected Calcium 8.9 8.5-10.1 MG/DL Total Bilirubin 0.4 0.1-1.0 MG/DL Aspartate Amino Transf (AST/SGOT) 101 H 5-34 U/L Alanine Aminotransferase (ALT/SGPT) 72 H 0-55 U/L Alkaline Phosphatase 95 40-136 U/L C-Reactive Protein High Sensitivity 2.19 H 0.00-0.50 MG/DL Total Protein 7.6 6.4-8.2 GM/DL Albumin 4.0 3.2-4.5 GM/DL My Orders Orders - JANELLE ESPITIA APRN Covid 19 Inhouse Test (05/06/21 16:31) Cbc With Automated Diff (05/06/21 17:25) Comprehensive Metabolic Panel (05/06/21 17:25) Chest 1 View, Ap/Pa Only (05/06/21 17:25) Ed Iv/Invasive Line Start (05/06/21 17:25) Hs C Reactive Protein (05/06/21 17:25) Lactated Ringers (Lr 1000 Ml Iv Solution (05/06/21 17:30) Ketorolac Injection (Toradol Injection) (05/06/21 17:30) Prochlorperazine Injection (Compazine In (05/06/21 17:30) Diphenhydramine Injection (Benadryl Inje (05/06/21 17:30) Medications Given in ED Current Medications Medications Dose Ordered Sig/Veronika Route Start Time Stop Time Status Last Admin Dose Admin Diphenhydramine HCl 25 mg ONCE ONCE IVP 05/06/21 17:30 05/06/21 17:31 DC 05/06/21 17:31 25 MG Ketorolac Tromethamine 15 mg ONCE ONCE IVP 05/06/21 17:30 05/06/21 17:31 DC 05/06/21 17:31 15 MG Prochlorperazine Edisylate 5 mg ONCE ONCE IV 05/06/21 17:30 05/06/21 17:31 DC 05/06/21 17:31 5 MG Vital Signs/I&O 05/06/21 17:10 Temp 38.7 Pulse 85 Resp 18 B/P (MAP) 163/87 (112) Pulse Ox 93 Capillary Refill : Departure Communication (Admissions) I discussed with her the alternatives to treatment and discussed with her the emergency use authorization of Regeneron. She would like to proceed with getting this. Impression Primary Impression: COVID-19 Disposition: 01 HOME, SELF-CARE Condition: Stable Departure-Patient Inst. Decision time for Depature: 18:25 Referrals: NICKY THOMPSON MD (PCP/Family) Primary Care Physician Patient Instructions: No Instuctions Given, REGEN-COV (casirivimab and imdevimab) FDA Fact Sheet Add. Discharge Instructions: . Scheduling department will call you tomorrow for a time this week for your Regeneron infusion. Return to ER for any concerns. All discharge instructions reviewed with patient and/or family. Voiced understanding. JANELLE ESPITIA PRESSING MACHINE OPERATOR May 06, 2021 17:34
[2021-05-06 17:36] LABS: POTASSIUM 3.7 MMOL/L (3.6-5.0)
[2021-05-06 17:37] LABS: CALCIUM 8.9 MG/DL (8.5-10.1)
[2021-05-06 17:39] LABS: TOTAL PROTEIN 7.6 GM/DL (6.4-8.2)
[2021-05-06 17:40] LABS: BILIRUBIN,TOTAL 0.4 MG/DL (0.1-1.0)
[2021-05-06 17:42] LABS: CREATININE SERUM 0.88 MG/DL (0.60-1.30)
--- NOTE | 2021-05-06 18:36 | Diagnostic Imaging Report ---
INDICATION: 60-year-old female, Covid positive, shortness of breath. COMPARISON: 04/02/2021. EXAMINATION: Single view chest. FINDINGS: The cardiac contour is upper limits of normal. There is some mild central venous prominence. There is patchy perihilar and bibasilar atelectatic infiltrates but no significant consolidations. Film is slightly underpenetrated given the patient's large body habitus. Soft tissues and bony thorax are otherwise grossly unremarkable. IMPRESSION: 1. Heart size is upper limits of normal with some central venous congestion. These findings are accentuated by the portable technique and low lung volumes. 2. There are a few patchy alveolar infiltrates in the perihilar and bibasilar regions. Dictated by: Dictated on workstation # [id number]
[2021-05-06 20:03] VITALS: BP 122/70
== END 2021-05-06 20:03 | disposition home or self-care (01) ==
LOC: EDUNIT# 16:16 → ER 16:19
DX: U07.1 COVID-19 (principal); J44.9 Chronic obstructive pulmonary disease, unspecified; G47.30 Sleep apnea, unspecified; E66.9 Obesity, unspecified; K21.9 Gastro-esophageal reflux disease without esophagitis; E11.9 Type 2 diabetes mellitus without complications; G89.29 Other chronic pain; M54.9 Dorsalgia, unspecified; F41.9 Anxiety disorder, unspecified; Z68.41 Body mass index [BMI] 40.0-44.9, adult; Z79.84 Long term (current) use of oral hypoglycemic drugs; Z79.899 Other long term (current) drug therapy; Z79.891 Long term (current) use of opiate analgesic
CPT/HCPCS: 36415; 71045; 80053; 85025; 86141; 87636

== ENCOUNTER 2021-05-11 11:37 | Outpatient (CLI) | payer MEDICARE, MEDICAID ==
[~2021-05-11] VITALS: Ht 175.3 cm; Wt 124.5 kg
[2021-05-11 11:34] VITALS: BP 136/72
[2021-05-11] MEDS ORDERED: EPINEPHrine INJECTION 1 MG/ML AMP IM PRN (11:45)
[2021-05-11] MEDS ORDERED: diphenhydrAMINE 50 MG/ML INJ (BENADRYL) IV PRN (11:45)
[2021-05-11] MEDS ORDERED: CASIRIVIMAB/IMDEVIMAB 1,200 MG in NS (IVPB) 250 ML IV ONE (12:00)
[2021-05-11] MEDS ORDERED: ACETAMINOPHEN 500 MG TAB (TYLENOL) PO PRN (12:00)
[2021-05-11] MEDS ORDERED: ONDANSETRON 4 MG/2 ML (SDV) Z0FRAN IV PRN (12:00)
[2021-05-11 12:49] VITALS: BP 140/78
== END 2021-05-11 12:35 | disposition home or self-care (01) ==
LOC: INFUSION 11:37
PROVIDERS: ATTEND Nurse Practitioner Family
DX: Z23 Encounter for immunization (principal); U07.1 COVID-19

== ENCOUNTER 2021-05-11 21:05 | Inpatient (IN) | payer MEDICARE, MEDICAID ==
[~2021-05-11] VITALS: Ht 167.7 cm; Wt 129.6 kg
[2021-05-11] MEDS ORDERED: PROMETHAZINE INJ 25 MG/ML (PHENERGAN) AMP IVP STA (22:01)
--- NOTE | 2021-05-11 22:01 | ED General ---
General Chief Complaint: Cough/Cold/Flu Symptoms Stated Complaint: COVID + COUGH/SOA Nursing Triage Note: Pt ambulatory into ER with complaint of N/V x today days, Fatigue x2 weeks. Pt is day 8 of covid+. Pt had Covid infusion today. 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) History of Present Illness Date Seen by Provider: May 11, 2021 Time Seen by Provider: 21:07 Initial Comments PT ARRIVES VIA EMS FROM HOME PT'S JUST AT HOME, EMS WERE AT SCENE, AND CPR WAS DONE--LESS THAN AN HOUR AGO ALL HOUSEHOLD MEMBERS HAVE TESTED + FOR COVID-19, HAD ALSO BEEN ILL BUT DID NOT SEEK CARE AND NEVER GOT TESTED FOR COVID-19 EMS REPORT THAT DAUGHTER "WANTED HER CHECKED OUT" PT SEEN HERE 05/06/21 FOR COVID-19 SYMPTOMS, AND TESTED + PT STATES SHE HAS BEEN SICK FOR A WEEK--SYMPTOMS BEGAN ON 05/03/21 PT STATES SHE HAS NOT HAD ANY TREATMENT OR BEEN PRESCRIBED ANY MEDICATIONS OR TAKEN ANY MEDICATIONS--HOWEVER, PT DID HAVE REGEN-COV INFUSION EARLIER TODAY, WHICH SHE LATER CONFIRMS. HAS NOT ACTUALLY FOLLOWED UP WITH ANYONE SINCE THAT ER VISIT. PT C/O NON-PRODUCTIVE COUGH C/O SHORTNESS OF BREATH--HAS COPD, HAS INHALER, BUT HAS NOT USED IT C/O SUBJECTIVE FEVER--HAS NOT CHECKED TEMP OR TAKEN ANYTHING FOR IT C/O LOSS OF TASTE AND SMELL C/O NAUSEA AND VOMITING FOR THE LAST WEEK--VOMITED X 2 TODAY NO DIARRHEA. NO ABDOMINAL PAIN C/O CHEST PAIN--STATES SHE HAS HAD IT ALL DAY, AND HAD IT ON WAKING THIS MORNING. DID NOT HAVE IT PRIOR TO THIS MORNING C/O HEADACHE C/O BODY ACHES C/O FATIGUE C/O SORE THROAT PT STATES SHE IS DIABETIC , BUT NEVER CHECKS HER BLOOD SUGAR PT HAS NOT HAD COVID-19 VACCINE PT HAD RIGHT KNEE SCOPE 04/25/[address] BALDWIN PT WITH A MULTITUDE OF VISITS FOR VARIOUS COMPLAINTS--MOST FOR VARIOUS PAIN COMPLAINTS PCP: [facility] Allergies and Home Medications Allergies Coded Allergies: nickel (Verified Allergy, Intermediate, RASH, 04/18/21) doxycycline (Verified Allergy, Mild, HIVES, 04/18/21) Iodinated Contrast Media (Verified Allergy, Unknown, 04/18/21) cobalt (Verified Allergy, Unknown, Hives, 04/18/21) penicillin (Verified Allergy, Unknown, HAS RECEIVED ROCEPHIN, 04/18/21) rash Uncoded Allergies: hexachloride (Allergy, Unknown, Hives, 06/24/19) Home Medications Albuterol Sulfate 1 Puff Puff, 2 PUFF IH Q4H PRN for WHEEZING, (Reported) 1 PUFF = 90 MCG Fluoxetine HCl 40 Mg Capsule, 40 MG PO DAILY, (Reported) Fluticasone/Vilanterol 1 Each Blst.w.dev, 1 EACH IH DAILY, (Reported) Hydrocodone Bit/Acetaminophen 1 Ea Tablet, 1 EA PO Q4H PRN for PAIN-SEVERE (8- 10) Prescribed by: RICHARD MILLER on 12/27/20 0914 Metformin HCl 1,000 Mg Tablet, 1,000 MG PO BID, (Reported) Pantoprazole Sodium 40 Mg Tablet.dr, 40 MG PO DAILY, (Reported) Pregabalin 75 Mg Capsule, 75 MG PO BID, (Reported) Review of Systems Review of Systems Constitutional: see HPI, chills, fever, malaise, weakness EENTM: nose congestion, throat pain Respiratory: see HPI, cough, short of breath Cardiovascular: see HPI, chest pain; No edema Gastrointestinal: see HPI; No abdominal pain, No diarrhea; nausea, vomiting Musculoskeletal: see HPI (BODY ACHES) Psychiatric/Neurological: See HPI ( OF JUST PRIOR TO ARRIVAL), Headache Hematologic/Lymphatic: No Symptoms Reported Immunological/Allergic: no symptoms reported Past Ykpbesm-Pspohu-Fytlvt Hx Patient Social History Tobacco Use?: Yes (SMOKED 2 PPD--QUIT) Tobacco type used: Cigarettes Smoking Status: Former Smoker Use of E-Cig and/or Vaping dev: No Substance use?: No Alcohol Use?: No Pt feels they are or have been: No Immunizations Up To Date Tetanus Booster (TDap): Unknown PED Vaccines UTD: No Influenza Vaccine Up-to-Date: No; Not Current Seasonal Allergies Seasonal Allergies: Yes Past Medical History Surgery/Hospitalization HX: RIGHT KNEE SCOPE 12/27/20 AND 04/25/[address] 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, 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 Sexually Transmitted Disease: No HIV/AIDS: No Genitourinary: Yes Kidney Infection, Bladder Infection, UTI-Chronic Gastrointestinal: Yes (INFLAMATION IN COLON, VENTRAL HERNIA) Abdominal Hernia, Gastroesophageal Reflux, Chronic Constipation, Chronic Diarrhea, Irritable Bowel Musculoskeletal: Yes (RESTLESS LEG SYNDROME) Arthritis, Fibromyalgia, Chronic Back Pain Endocrine: Yes (OBESITY) Diabetes, Non-Insulin dep HEENT: Yes (GLASSES) Loss of Vision: Bilateral Hearing Impairment: Denies Cancer: No Psychosocial: Yes Anxiety, Bipolar, Depression Integumentary: No Blood Disorders: No Adverse Reaction/Blood Tranf: No (N/A) Family Medical History Arthritis 19 MOTHER, Onset:Unknown Asthma 19 FATHER, Onset:Unknown Cataracts 19 MOTHER, Onset:Unknown Diabetes mellitus 19 MOTHER, Onset:Unknown FH: COPD (chronic obstructive pulmonary disease) 19 FATHER, Onset:Unknown Hypercholesterolemia 19 MOTHER MS (multiple sclerosis) G8 SISTER, Onset:Unknown Physical Exam Vital Signs Vital Signs - First Documented 05/11/21 21:51 Temp 36.3 Pulse 103 Resp 20 B/P (MAP) 124/84 (97) Pulse Ox 94 O2 Delivery Room Air Capillary Refill : Less Than 3 Seconds Height, Weight, BMI Height: 5'9.00" Weight: 288lbs. 0.0oz. 130.008529wi; 49.00 BMI Method:Stated General Appearance: No Apparent Distress, WD/WN, Obese, Other (FILTHY, UNKEMPT, CLOTHING FILTHY AND COVERED IN VOMIT) HEENT: PERRL/EOMI Respiratory: Chest Non Tender, Normal Breath Sounds, No Accessory Muscle Use, No Respiratory Distress Cardiovascular: Regular Rate, Rhythm, No Edema, No JVD, No Murmur, Normal Peripheral Pulses Gastrointestinal: Non Tender, Soft Back: No CVA Tenderness Extremity: Normal Capillary Refill, Normal Inspection, Normal Range of Motion, Non Tender, No Calf Tenderness, No Pedal Edema Neurologic/Psychiatric: Alert, Oriented x3, No Motor/Sensory Deficits, siding installer II- XII Norm as Tested Skin: Normal Color, Warm/Dry; No Rash Progress/Results/Core Measures Suspected Sepsis SIRS Temperature: Pulse: 103 Respiratory Rate: 20 Blood Pressure 124 /84 Mean: 97 Results/Orders My Orders Orders - MURALI ORLANDO DO Cbc With Automated Diff (05/11/21 21:08) Comprehensive Metabolic Panel (05/11/21 21:08) Fibrin Degradation Products (05/11/21 21:08) Procalcitonin (Pct) (05/11/21 21:08) Hs C Reactive Protein (05/11/21:08) Erythrocyte Sedimentation Rate (05/11/21 21:08) LDH (05/11/21 21:08) Blood Culture (05/11/21:) Ekg Tracing (05/11/21:) Chest 1 View, Ap/Pa Only (05/11/21:08) BNP (05/11/21:08) Creatine Kinase (05/11/21:) Creatine Kinase Mb (05/11/21:08) Lactic Acid Analyzer (05/11/21:) Magnesium (05/11/21:) Protime With Inr (05/11/21:08) Partial Thromboplastin Time (05/11/21:) Ua Culture If Indicated (05/11/21:) Myoglobin Serum (05/11/21:08) Troponin I (05/11/21 21:08) Ekg Tracing (05/11/21:08) O2 (05/11/21:08) Monitor-Rhythm Ecg Trace Only (05/11/21:08) Amylase (05/11/21 22:01) Arterial Blood Gas (05/11/21 22:01) Lipase (05/11/21 22:01) Ed Iv/Invasive Line Start (05/11/21 22:) Ns Iv 1000 Ml (Sodium Chloride 0.9%) (05/11/21 22:15) Promethazine Injection (Phenergan Injec (05/11/21 22:01) Dexamethasone Injection (Decadron Inje (05/11/21 22:30) Vital Signs/I&O 05/11/21 05/11/21 21:51 21:51 Temp 36.3 Pulse 103 Resp 20 B/P (MAP) 124/84 (97) Pulse Ox 94 O2 Delivery Room Air Room Air Capillary Refill : Less Than 3 Seconds Blood Pressure Mean: 97 Progress Note : Progress Note PLACED IN ISOLATION ROOM PPE WORN AT ALL TIMES GIVEN PHENERGAN AT PT'S REQUEST--PT STATES "ZOFRAN MAKES ME THROW UP MORE" O2 SAT 92% ON ROOM AIR ON ARRIVAL PLACED ON O2 AT 3L/NC --O2 SATS 96% ECG Initial ECG Impression Date: May 11, 2021 Initial ECG Impression Time: 21:18 Initial ECG Rate: 98 Initial ECG Rhythm: Normal Sinus Diagnostic Imaging Comments CXR--PER RADIOLOGIST REPORT AT 2217 FINDINGS: Increasing hazy opacities are seen in the bilateral lung bases. No pleural effusion or pneumothorax. Stable prominent cardiac silhouette. IMPRESSION: Increasing hazy opacities in the bilateral lung bases, which may represent worsening infection. Reviewed: Reviewed by Me Departure Impression Primary Impression: COVID-19 virus infection Departure-Patient Inst. Referrals: NICKY THOMPSON MD (PCP/Family) Primary Care Physician MURALI ORLANDO DO May 11, 2021 22:00
--- NOTE | 2021-05-11 22:09 | Diagnostic Imaging Report ---
EXAMINATION: Chest 1 view. HISTORY: Dyspnea. Covid infection. COMPARISON: 05/06/2021. FINDINGS: Increasing hazy opacities are seen in the bilateral lung bases. No pleural effusion or pneumothorax. Stable prominent cardiac silhouette. IMPRESSION: Increasing hazy opacities in the bilateral lung bases, which may represent worsening infection. Dictated by: Dictated on workstation # [id number]
[2021-05-11] MEDS ORDERED: NS IV 1000 ML 1,000 ML IV SCH (22:15)
[2021-05-11 22:31] LABS: BASOPHILS % (AUTO) 0 % (0-10); EOSINOPHILS % (AUTO) 0 % (0-10); MEAN CORPUSCULAR VOLUME 82 fL (80-99); MONOCYTES # (AUTO) 0.3 10^3/uL (0.0-1.0)
[2021-05-11 22:33] LABS: HEMATOCRIT 39 % (35-52); HEMOGLOBIN 12.4 g/dL (11.5-16.0); LYMPHOCYTES # (AUTO) 0.9 10^3/uL (1.0-4.0); LYMPHOCYTES % (AUTO) 14 % (12-44); MEAN CORPUSCULAR HEMOGLOBIN 26 pg (25-34); MEAN CORPUSCULAR HGB CONC 32 g/dL (32-36); MEAN PLATELET VOLUME 12.3 fL (9.0-12.2); MONOCYTES % (AUTO) 5 % (0-12); NEUTROPHILS # (AUTO) 5.3 10^3/uL (1.8-7.8); NEUTROPHILS % (AUTO) 81 % (42-75); PLATELET COUNT 99 10^3/uL (130-400); WHITE BLOOD COUNT 6.5 10^3/uL (4.3-11.0)
[2021-05-11 22:40] LABS: FIBRIN DEGRADATION PRODUCTS 1.48 UG/ML (0.00-0.49); PROTHROMBIN TIME PATIENT 13.1 SEC (12.2-14.7)
[2021-05-11 22:49] LABS: ERYTHROCYTE SEDIMENTATION RATE 36 MM/HR (0-30)
[2021-05-11 22:50] LABS: ALANINE AMINOTRANSFERASE 57 U/L (0-55); ALBUMIN 3.7 GM/DL (3.2-4.5); ALKALINE PHOSPHATASE 92 U/L (40-136); AMYLASE 67 U/L (25-125); BILIRUBIN,TOTAL 0.6 MG/DL (0.1-1.0); BUN/CREATININE RATIO 10; CALCIUM 8.6 MG/DL (8.5-10.1); CARBON DIOXIDE 24 MMOL/L (21-32); CHLORIDE 97 MMOL/L (98-107); CREATINE KINASE 66 U/L (29-168); GFR ESTIMATED 51; GLUCOSE 218 MG/DL (70-105); LIPASE 43 U/L (8-78); MAGNESIUM 1.6 MG/DL (1.6-2.4); POTASSIUM 3.7 MMOL/L (3.6-5.0); SODIUM 132 MMOL/L (135-145); TOTAL PROTEIN 7.6 GM/DL (6.4-8.2)
[2021-05-11 23:10] LABS: CREATINE KINASE MB 0.6 NG/ML (<6.6)
[2021-05-11] MEDS ORDERED: AZITHROMYCIN INJECTION 500 MG in NS (IVPB) 250 ML IV ONE (23:15)
[2021-05-11] MEDS ORDERED: cefTRIAXone 1,000 MG in WATER (STERILE) FOR INJECTION 10 ML IV ONE (23:15)
[2021-05-11] MEDS ORDERED: ENOXAPARIN 80 MG/0.8 ML (LOVENOX) SYR SC ONE ×2 (23:15)
[2021-05-12] VITALS (7 sets, daily range): BP systolic 120–157; BP diastolic 62–110
[2021-05-12 00:10] LABS: BILIRUBIN,URINE NEGATIVE (NEGATIVE); CLARITY,URINE CLEAR; COLOR,URINE YELLOW; GLUCOSE, URINE (UA) NEGATIVE (NEGATIVE); KETONES,URINE 2+ (NEGATIVE); LEUKOCYTE ESTERASE ,URINE 1+ (NEGATIVE); NITRITE,URINE NEGATIVE (NEGATIVE); PH,URINE 5.5 (5-9); PROTEIN,URINE 1+ (NEGATIVE)
[2021-05-12 00:31] LABS: BACTERIA,URINE LARGE /HPF
[2021-05-12] MEDS ORDERED: NS IV 1000 ML 1,000 ML ONE (01:06)
[2021-05-12 01:29] LABS: ABG OXYGEN SATURATION 99 % (94-100); ABG PCO2 38 MMHG (35-45); ABG PO2 104 MMHG (79-93); ABG TCO2 24.3 MMOL/L (21.0-31.0); ALLENS TEST YES-POS; INSPIRED O2 3L; PATIENT TEMP 37; VENTILATOR NO
[2021-05-12] MEDS: NS IV 1000 ML 1,000 ML IV SCH ×2 (01:29→08:46)
[2021-05-12] MEDS ORDERED: ACETAMINOPHEN 500 MG TAB (TYLENOL) PO PRN (01:30)
[2021-05-12] MEDS ORDERED: PROMETHAZINE INJ 25 MG/ML (PHENERGAN) AMP IVP PRN (01:30)
[2021-05-12] MEDS ORDERED: IBUPROFEN 800 MG (MOTRIN) TAB PO PRN (01:30)
[2021-05-12] MEDS: RT-ALBUTEROL HFA 8.5 GM INHALER IH SCH ×3 (03:31→15:16)
[2021-05-12 04:26] LABS: EOSINOPHILS % (AUTO) 0 % (0-10); MEAN CORPUSCULAR HEMOGLOBIN 26 pg (25-34); MEAN CORPUSCULAR HGB CONC 32 g/dL (32-36); MONOCYTES # (AUTO) 0.1 10^3/uL (0.0-1.0)
[2021-05-12 04:27] LABS: BASOPHILS % (AUTO) 0 % (0-10); HEMATOCRIT 37 % (35-52); HEMOGLOBIN 11.9 g/dL (11.5-16.0); LYMPHOCYTES # (AUTO) 0.8 10^3/uL (1.0-4.0); LYMPHOCYTES % (AUTO) 18 % (12-44); MEAN CORPUSCULAR VOLUME 83 fL (80-99); MEAN PLATELET VOLUME 12.5 fL (9.0-12.2); MONOCYTES % (AUTO) 2 % (0-12); NEUTROPHILS # (AUTO) 3.6 10^3/uL (1.8-7.8); NEUTROPHILS % (AUTO) 79 % (42-75); PLATELET COUNT 88 10^3/uL (130-400); WHITE BLOOD COUNT 4.6 10^3/uL (4.3-11.0)
[2021-05-12 04:30] LABS: SMEAR SCAN COMMENT YES
[2021-05-12 04:41] LABS: CALCIUM 8.3 MG/DL (8.5-10.1); CREATININE SERUM 0.91 MG/DL (0.60-1.30); POTASSIUM 3.8 MMOL/L (3.6-5.0)
[2021-05-12] MEDS ORDERED: RT-ALBUTEROL HFA 8.5 GM INHALER IH PRN (05:00)
[2021-05-12] MEDS: inSUlin ASPART (NovoLOG) 1 UNIT/0.01 ML (CHARGE PER UNIT) SC SCH ×4 (06:25→20:51)
[2021-05-12] MEDS: UMECLIDINIUM BROMIDE (INCRUSE ELLIPTA) 7'S IH SCH (08:07)
--- NOTE | 2021-05-12 10:10 | Diagnostic Imaging Report ---
EXAMINATION: Nuclear medicine perfusion scintigraphy. HISTORY: Shortness of breath, COVID positive. COMPARISON: Chest radiograph 05/11/2021 TECHNIQUE: 5.01 mCi of technetium 99m MAA were administered intravenously. Posterior, anterior and bilateral oblique as well as lateral images were obtained. FINDINGS: There is symmetric distribution of radiotracer on the perfusion images. No perfusion defects are seen. There is no ventilation or perfusion mismatch. IMPRESSION: 1. No perfusion defects to suggest pulmonary embolus. Report was faxed to [facility] Infection Control by camilla at 10:08am. Dictated by: Dictated on workstation # [id number]
[2021-05-12] MEDS ORDERED: ENOXAPARIN 80 MG/0.8 ML (LOVENOX) SYR SC SCH (11:00)
[2021-05-12] MEDS ORDERED: ENOXAPARIN 300 MG/3 ML (LOVENOX) MULTI-DOSE VIAL SQ SCH (11:00)
--- NOTE | 2021-05-12 11:22 | History & Physical-Hospitalist ---
History of Present Illness HPI/Chief Complaint Chief complaint: COVID-19 pneumonia with nausea and vomiting History of present illness: This is a 60-year-old white female disabled clinic patient of Dr. Espino who presented to the ER with nausea and vomiting and sever bree distraught status due to COVID-19 pneumonia. Apparently her whole family had Covid and her refused to get tested and 1 hour prior to arrival to the ER he had sudden cardiac and paramedics were unable to resuscitate him. She is very distraught about that and very tearful. She is currently on 3 L of oxygen. She does not use home oxygen. VQ scan was negative for PE so I did adjust the Lovenox to 40 mg daily she does desaturate with activity. Source: patient Exam Limitations: no limitations Date Seen 05/12/21 Time Seen by a Provider: 11:30 Attending Physician Saumya Stoddard DO PCP Li Espino MD Referring Physician Date of Admission May 11, 2021 at 23:15 Home Medications & Allergies Home Medications Reviewed patient Home Medication Reconciliation performed by pharmacy medication reconciliations hemodialysis lab technician and/or nursing. Patients Allergies have been reviewed. Allergies Allergies Coded Allergies nickel (Verified Allergy, Intermediate, RASH, 04/18/21) doxycycline (Verified Allergy, Mild, HIVES, 04/18/21) Iodinated Contrast Media (Verified Allergy, Unknown, 04/18/21) cobalt (Verified Allergy, Unknown, Hives, 04/18/21) penicillin (Verified Allergy, Unknown, HAS RECEIVED ROCEPHIN, 04/18/21) rash Uncoded Allergies hexachloride ( Allergy, Unknown, Hives, 06/24/19) Past Hltafao-Tvqedc-Hqvypc Hx Patient Social History Marrital Status: Employed/Student: unemployed Tobacco Use?: No Tobacco type used: Cigarettes Smoking Status: Former Smoker Use of E-Cig and/or Vaping dev: No Use of E-Cig and/or Vaping Live: Never a User Substance use?: No Alcohol Use?: No Pt feels they are or have been: No Immunizations Up To Date Date of Influenza Vaccine: Jul 06, 2020 Tetanus Booster (TDap): Unknown PED Vaccines UTD: No Date of Pneumonia Vaccine: Mar 13, 2018 Seasonal Allergies Seasonal Allergies: Yes Current Status status: No Advance Directives: No Communicates: Verbally Primary Language: Upper Sorbian Preferred Spoken Language: Upper Sorbian Implanted or Applied Medical D: None Past Medical History Surgeries: Abdominal, Gallbladder, Hysterectomy, Joint Replacement, Oophorectomy, Orthopedic Asthma, Sleep Apnea, COPD Currently Using CPAP: No Currently Using BIPAP: No 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, 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 Sexually Transmitted Disease: No HIV/AIDS: No Kidney Infection, Bladder Infection, UTI-Chronic Abdominal Hernia, Gastroesophageal Reflux, Chronic Constipation, Chronic Diarrhea, Irritable Bowel Arthritis, Fibromyalgia, Chronic Back Pain Diabetes, Non-Insulin dep Loss of Vision: Bilateral Hearing Impairment: Denies Anxiety, Bipolar, Depression Blood Disorders: No Adverse Reaction/Blood Tranf: No (N/A) NIDDM COPD ENRRIQUE Obesity BMI 41 Family Medical History Arthritis 19 MOTHER, Onset:Unknown Asthma 19 FATHER, Onset:Unknown Cataracts 19 MOTHER, Onset:Unknown Diabetes mellitus 19 MOTHER, Onset:Unknown FH: COPD (chronic obstructive pulmonary disease) 19 FATHER, Onset:Unknown Hypercholesterolemia 19 MOTHER MS (multiple sclerosis) G8 SISTER, Onset:Unknown Review of Systems Constitutional: see HPI, malaise, weakness Respiratory: dyspnea on exertion, short of breath Gastrointestinal: loss of appetite, nausea, vomiting Physical Exam Physical Exam Vital Signs Vital Signs - First Documented 05/11/21 05/12/21 05/12/21 21:51 01:00 01:31 Temp 36.3 Pulse 103 Resp 20 B/P (MAP) 124/84 (97) Pulse Ox 94 O2 Delivery Room Air O2 Flow Rate 3.00 FiO2 21 Capillary Refill : Less Than 3 Seconds Height, Weight, BMI Height: 5'9.00" Weight: 288lbs. 0.0oz. [id number]; 46.08 BMI Method:Stated General Appearance: Chronically ill, Mild Distress, Obese Eyes: Right Eye Normal Inspection, Right Eye PERRL HEENT: PERRL/EOMI, Normal ENT Inspection, Pharynx Normal, Moist Mucous Membranes Neck: Full Range of Motion, Normal Inspection, Non Tender Respiratory: Chest Non Tender, Lungs Clear, No Accessory Muscle Use, No Respir atory Distress, Decreased Breath Sounds Cardiovascular: Regular Rate, Rhythm, No Edema, No Gallop, No JVD, No Murmur, Normal Peripheral Pulses Gastrointestinal: Normal Bowel Sounds, No Organomegaly, No Pulsatile Mass, Non Tender, Soft Back: Normal Inspection, No CVA Tenderness, No Vertebral Tenderness Extremity: Normal Capillary Refill, Normal Inspection, Normal Range of Motion, Non Tender, No Calf Tenderness, No Pedal Edema Neurologic/Psychiatric: Alert, Oriented x3, No Motor/Sensory Deficits, photographer portrait II- XII Norm as Tested, Depressed Affect Skin: Normal Color, Warm/Dry Lymphatic: No Adenopathy Results Results/Procedures Labs Laboratory Tests 05/11/21 22:05 05/12/21 03:50 Patient resulted labs reviewed. Assessment/Plan Admission Diagnosis Assessment: COVID-19 with acute hypoxic respiratory insufficiency COPD Former smoker Obstructive sleep apnea Diabetes Obesity Plan: Adjust Lovenox since VQ scan negative for PE Gentle IV fluids Prevent overload Supportive care Admission Status: Inpatient Order (span 2 midnights) Reason for Inpatient Admission: COVID-19 with hypoxia Diagnosis/Problems Diagnosis/Problems (1) COVID-19 virus infection Status: Acute (2) COPD (chronic obstructive pulmonary disease) Status: Chronic SAUMYA STODDARD DO May 12, 2021 11:22
[2021-05-12] MEDS ORDERED: ENOXAPARIN 40 MG/0.4 ML (LOVENOX) SYR SC SCH (11:30)
[2021-05-12] MEDS: ENOXAPARIN 40 MG/0.4 ML (LOVENOX) SYR SC SCH (11:42)
[2021-05-12] MEDS: cefTRIAXone 1,000 MG/SWFI 10 ML IV PUSH IV SCH ×2 (20:51)
[2021-05-12] MEDS: AZITHROMYCIN 500 MG/NS 250 ML IVPB IV SCH ×2 (21:00)
[2021-05-13] VITALS (7 sets, daily range): BP systolic 117–169; BP diastolic 71–111
[2021-05-13] MEDS: ENOXAPARIN 40 MG/0.4 ML (LOVENOX) SYR SC SCH ×2 (00:49→11:49)
[2021-05-13] MEDS: RT-ALBUTEROL HFA 8.5 GM INHALER IH SCH ×4 (01:08→10:59)
[2021-05-13 04:01] LABS: BASOPHILS % (AUTO) 0 % (0-10); EOSINOPHILS % (AUTO) 0 % (0-10); MONOCYTES # (AUTO) 0.4 10^3/uL (0.0-1.0)
[2021-05-13 04:02] LABS: HEMATOCRIT 37 % (35-52); HEMOGLOBIN 11.8 g/dL (11.5-16.0); LYMPHOCYTES # (AUTO) 1.2 10^3/uL (1.0-4.0); LYMPHOCYTES % (AUTO) 20 % (12-44); MEAN CORPUSCULAR HEMOGLOBIN 26 pg (25-34); MEAN CORPUSCULAR HGB CONC 32 g/dL (32-36); MEAN CORPUSCULAR VOLUME 82 fL (80-99); MEAN PLATELET VOLUME 12.9 fL (9.0-12.2); MONOCYTES % (AUTO) 6 % (0-12); NEUTROPHILS # (AUTO) 4.4 10^3/uL (1.8-7.8); NEUTROPHILS % (AUTO) 73 % (42-75); PLATELET COUNT 101 10^3/uL (130-400)
[2021-05-13 04:20] LABS: ALBUMIN 3.5 GM/DL (3.2-4.5); POTASSIUM 3.8 MMOL/L (3.6-5.0)
[2021-05-13 04:21] LABS: CALCIUM 8.9 MG/DL (8.5-10.1)
[2021-05-13 04:22] LABS: TOTAL PROTEIN 7.1 GM/DL (6.4-8.2)
[2021-05-13 04:24] LABS: BILIRUBIN,TOTAL 0.3 MG/DL (0.1-1.0)
[2021-05-13 04:26] LABS: CREATININE SERUM 0.92 MG/DL (0.60-1.30)
[2021-05-13] MEDS: inSUlin ASPART (NovoLOG) 1 UNIT/0.01 ML (CHARGE PER UNIT) SC SCH ×4 (06:25→21:09)
--- NOTE | 2021-05-13 06:27 | Progress Note - Hospitalist ---
Subjective HPI/CC On Admission Date Seen by Provider: May 13, 2021 Time Seen by Provider: 11:30 Chief complaint: COVID-19 pneumonia with nausea and vomiting History of present illness: This is a 60-year-old white female disabled clinic patient of Dr. Espino who presented to the ER with nausea and vomiting and severely distraught status due to COVID-19 pneumonia. Apparently her whole family had Covid and her refused to get tested and 1 hour prior to arrival to the ER he had sudden cardiac and paramedics were unable to resuscitate him. She is very distraught about that and very tearful. She is currently on 3 L of oxygen. She does not use home oxygen. VQ scan was negative for PE so I did adjust the Lovenox to 40 mg daily she does desaturate with activity. Subjective/Events-last exam Patient feeling much better On 2 L of oxygen Transferring to fourth floor Eating and drinking well Took a shower No shortness of breath during activity May be close to discharge Review of Systems General: Fatigue Pulmonary: Dyspnea Focused Exam Lactate Level 05/11/21 22:05: Lactic Acid Level 1.09 Objective Exam Vital Signs Vital Signs Date Time Temp Pulse Resp B/P (MAP) Pulse Ox O2 Delivery O2 Flow Rate FiO2 05/13/21 19:40 36.3 60 18 169/97 (121) 95 Nasal Cannula 2.00 05/13/21 11:00 28 Capillary Refill : Less Than 3 Seconds General Appearance: No Apparent Distress, WD/WN, Chronically ill Respiratory: No Accessory Muscle Use, No Respiratory Distress, Decreased Breath Sounds Cardiovascular: Regular Rate, Rhythm Neurologic/Psychiatric: Alert, Oriented x3 Results/Procedures Lab Laboratory Tests 05/13/21 03:35 Patient resulted labs reviewed. Assessment/Plan Assessment and Plan Assess & Plan/Chief Complaint Assessment: COVID-19 with acute hypoxic respiratory insufficiency COPD Former smoker Obstructive sleep apnea Diabetes Obesity Plan: Adjust Lovenox since VQ scan negative for PE Gentle IV fluids Prevent overload Supportive care 05/13/2021: Supportive care Transfer to fourth floor Oxygen Diagnosis/Problems Diagnosis/Problems (1) COVID-19 virus infection Status: Acute (2) COPD (chronic obstructive pulmonary disease) Status: Chronic KRISTA MCKEON DO May 13, 2021 06:27
[2021-05-13] MEDS: UMECLIDINIUM BROMIDE (INCRUSE ELLIPTA) 7'S IH SCH (07:29)
--- NOTE | 2021-05-13 08:30 | Diagnostic Imaging Report ---
EXAMINATION: Chest 1 view HISTORY: Pneumonia COMPARISON: 05/11/2021 FINDINGS: There are a few vague right-sided airspace opacities which may represent pneumonia. No pleural effusion or pneumothorax. Heart size is upper limits of normal. IMPRESSION: 1. Few vague right-sided airspace opacities which may represent pneumonia. Dictated by: Dictated on workstation # [id number]
[2021-05-13] MEDS ORDERED: ONDANSETRON 4 MG/2 ML (SDV) Z0FRAN IVP PRN (12:00)
[2021-05-13] MEDS ORDERED: RT-ALBUTEROL SULF 2.5 MG/3 ML PRE-MIX VIAL IH PRN (12:00)
[2021-05-13] MEDS: metFORMIN 500 MG (GLUCOPHAGE) TAB PO SCH (18:16)
[2021-05-13] MEDS ORDERED: NON-FORMULARY MEDICATION 1 EA EA (Metformin HCl 1,000 MG) PO SCH (21:00)
[2021-05-13] MEDS: PREGABALIN 75 MG (LYRICA) CAP PO SCH (21:08)
[2021-05-13] MEDS: AZITHROMYCIN 500 MG/NS 250 ML IVPB IV SCH ×2 (21:08)
[2021-05-13] MEDS: cefTRIAXone 1,000 MG/SWFI 10 ML IV PUSH IV SCH ×2 (21:08)
[2021-05-13] MEDS ORDERED: MELATONIN 3 MG TABLET ONE (21:21)
[2021-05-14] MEDS: ENOXAPARIN 40 MG/0.4 ML (LOVENOX) SYR SC SCH ×2 (00:39→11:07)
[2021-05-14 03:25] VITALS: BP 142/83
[2021-05-14 04:39] LABS: BASOPHILS % (AUTO) 0 % (0-10); EOSINOPHILS % (AUTO) 0 % (0-10); HEMATOCRIT 36 % (35-52); HEMOGLOBIN 11.4 g/dL (11.5-16.0); LYMPHOCYTES # (AUTO) 1.5 10^3/uL (1.0-4.0); LYMPHOCYTES % (AUTO) 22 % (12-44); MEAN CORPUSCULAR HEMOGLOBIN 26 pg (25-34); MEAN CORPUSCULAR HGB CONC 32 g/dL (32-36); MEAN CORPUSCULAR VOLUME 83 fL (80-99); MEAN PLATELET VOLUME 12.7 fL (9.0-12.2); MONOCYTES # (AUTO) 0.4 10^3/uL (0.0-1.0); MONOCYTES % (AUTO) 6 % (0-12); NEUTROPHILS % (AUTO) 72 % (42-75); PLATELET COUNT 113 10^3/uL (130-400); WHITE BLOOD COUNT 6.9 10^3/uL (4.3-11.0)
[2021-05-14 04:51] LABS: ALBUMIN 3.3 GM/DL (3.2-4.5); POTASSIUM 3.8 MMOL/L (3.6-5.0)
[2021-05-14 04:53] LABS: CALCIUM 8.7 MG/DL (8.5-10.1)
[2021-05-14 04:54] LABS: TOTAL PROTEIN 6.8 GM/DL (6.4-8.2)
[2021-05-14 04:56] LABS: BILIRUBIN,TOTAL 0.2 MG/DL (0.1-1.0)
[2021-05-14 04:57] LABS: CREATININE SERUM 0.84 MG/DL (0.60-1.30)
[2021-05-14] MEDS: inSUlin ASPART (NovoLOG) 1 UNIT/0.01 ML (CHARGE PER UNIT) SC SCH ×3 (06:41→16:38)
[2021-05-14] MEDS ORDERED: RT--FLUTICASONE/SALMETEROL 232-14 (AIRDUO RespiCLICK) IH SCH (08:00)
[2021-05-14 08:09] VITALS: BP 133/77
[2021-05-14] MEDS: PREGABALIN 75 MG (LYRICA) CAP PO SCH (08:56)
[2021-05-14] MEDS: metFORMIN 500 MG (GLUCOPHAGE) TAB PO SCH (08:56)
[2021-05-14] MEDS ORDERED: FLUoxetine HCL 20 MG (PROzac) CAP PO SCH (09:00)
[2021-05-14] MEDS ORDERED: PANTOPRAZOLE 40 MG (PROTONIX) TAB PO SCH (09:00)
[2021-05-14] MEDS ORDERED: FLUTICASONE/VILANTEROL 200 MCG 14'S (BREO) IH SCH (09:00)
[2021-05-14] MEDS ORDERED: NON-FORMULARY MEDICATION 1 EA EA (Fluoxetine HCl 40 MG) PO SCH (09:00)
[2021-05-14] MEDS: UMECLIDINIUM BROMIDE (INCRUSE ELLIPTA) 7'S IH SCH (10:00)
[2021-05-14 11:53] VITALS: BP 137/76
[2021-05-14] MEDS ORDERED: ASPI-1238 PO ×2 (15:17)
[2021-05-14] MEDS ORDERED: IBUP-2473 PO ×2 (15:17)
[2021-05-14] MEDS ORDERED: FLUO20CA46 PO ×2 (15:35)
[2021-05-14] MEDS ORDERED: PANT40TA52 PO ×2 (15:35)
[2021-05-14] MEDS ORDERED: FLUT1BLS IH ×2 (15:35)
[2021-05-14] MEDS ORDERED: RT-ALBUINH IH ×2 (15:35)
[2021-05-14] MEDS ORDERED: PREG75CA PO ×2 (15:35)
[2021-05-14 16:00] VITALS: BP 134/79
[2021-05-14] MEDS ORDERED: MELATONIN 3 MG TABLET PO SCH (21:00)
--- NOTE | 2021-05-14 22:19 | Discharge Summary ---
Discharge Summary Hospital Course Hospital Course Date of Admission: May 11, 2021 at 23:15 Admission Diagnosis : Family Physician/Provider: Nicky Espino MD Date of Discharge: 05/14/21 Discharge Diagnosis: COVID19 pneumonia Diabetes mellitus Obesity COPD Hospital Course: Pt admitted with COVID19, treated with dexamethasone, was stable on room air on day of d/c. Labs and Pending Lab Test: Laboratory Tests 05/13/21 16:03: Glucometer 331H 05/13/21 20:22: Glucometer 293H 05/14/21 04:20: White Blood Count 6.9, Red Blood Count 4.35, Hemoglobin 11.4L, Hematocrit 36, Mean Corpuscular Volume 83, Mean Corpuscular Hemoglobin 26, Mean Corpuscular Hemoglobin Concent 32, Red Cell Distribution Width 14.5, Platelet Count 113L, Mean Platelet Volume 12.7H, Immature Granulocyte % (Auto) 0, Neutrophils (%) (Auto) 72, Lymphocytes (%) (Auto) 22, Monocytes (%) (Auto) 6, Eosinophils (%) (Auto) 0, Basophils (%) (Auto) 0, Neutrophils # (Auto) 5.0, Lymphocytes # (Auto) 1.5, Monocytes # (Auto) 0.4, Eosinophils # (Auto) 0.0, Basophils # (Auto) 0.0, Immature Granulocyte # (Auto) 0.0, Sodium Level 138, Potassium Level 3.8, Chloride Level 105, Carbon Dioxide Level 23, Anion Gap 10, Blood Urea Nitrogen 17, Creatinine 0.84, Estimat Glomerular Filtration Rate 70, BUN/Creatinine Ratio 20, Glucose Level 184H, Calcium Level 8.7, Corrected Calcium 9.3, Total Bilirubin 0.2, Aspartate Amino Transf (AST/SGOT) 33, Alanine Aminotransferase (ALT/SGPT) 40, Alkaline Phosphatase 65, Total Protein 6.8, Albumin 3.3 Microbiology 05/12/21 Urine Culture - Final, Complete Escherichia coli Gram Pos Mixed Bacterial Christy 05/11/21 Blood Culture - Preliminary, Resulted No growth Home Meds Active Fluoxetine HCl 20 Mg Capsule 40 Mg PO DAILY Pantoprazole Sodium 40 Mg Tablet.dr 40 Mg PO DAILY Proair Hfa (Albuterol Sulfate) 1 Puff Puff 2 Puff IH Q4H PRN Breo Ellipta 200-25 Mcg INH (Fluticasone/Vilanterol) 1 Each Blst.w.dev 1 Each IH DAILY Reported Ibuprofen 200 Mg Tablet 600 Mg PO Q6H PRN Aspirin EC (Aspirin) 81 Mg Tablet. 81 Mg PO DAILY PRN Metformin HCl 1,000 Mg Tablet 1,000 Mg PO BID LAST FILLED 12/12/2020 #180 90 DAY SUPPLY Assessment/Pt DC Instructions Follow up with Dr. Espino within a week. Discharge Diet: ADA Diet Activity as Tolerated: Yes Discharge Physical Examination Allergies: Coded Allergies: nickel (Verified Allergy, Intermediate, RASH, 04/18/21) doxycycline (Verified Allergy, Mild, HIVES, 04/18/21) Iodinated Contrast Media (Verified Allergy, Unknown, 04/18/21) cobalt (Verified Allergy, Unknown, Hives, 04/18/21) penicillin (Verified Allergy, Unknown, HAS RECEIVED ROCEPHIN, 04/18/21) rash Uncoded Allergies: hexachloride (Allergy, Unknown, Hives, 06/24/19) General Appearance: No Apparent Distress, Obese Respiratory: Lungs Clear Cardiovascular: Regular Rate, Rhythm Skin: Warm/Dry Neurologic/Psychiatric: Alert, Normal Mood/Affect Copy Copies To 1: NICKY ESPINO MD,PATRIC Saucedo MD May 14, 2021 15:35
== END 2021-05-14 16:50 | disposition home or self-care (01) | DRG 177 ==
LOC: EDUNIT# 21:05 → ER 21:07 → CSD 23:15 → 4TH 05-14 06:17
PROVIDERS: ADMIT Internal Medicine; ATTEND Family Medicine
DX: U07.1 COVID-19 (principal); J12.82 Pneumonia due to coronavirus disease 2019; J44.0 Chronic obstructive pulmonary disease with (acute) lower respiratory infection; Z68.42 Body mass index [BMI] 45.0-49.9, adult; R06.89 Other abnormalities of breathing; R09.02 Hypoxemia; E11.9 Type 2 diabetes mellitus without complications; E66.8 Other obesity; H54.7 Unspecified visual loss; F41.9 Anxiety disorder, unspecified; F31.9 Bipolar disorder, unspecified; G47.33 Obstructive sleep apnea (adult) (pediatric); E78.00 Pure hypercholesterolemia, unspecified; K21.9 Gastro-esophageal reflux disease without esophagitis; G25.81 Restless legs syndrome; M19.91 Primary osteoarthritis, unspecified site; M79.7 Fibromyalgia; Z87.891 Personal history of nicotine dependence; Z79.84 Long term (current) use of oral hypoglycemic drugs; Z88.0 Allergy status to penicillin; Z88.1 Allergy status to other antibiotic agents; Z91.041 Radiographic dye allergy status; Z82.61 Family history of arthritis; Z83.3 Family history of diabetes mellitus; Z82.5 Family history of asthma and other chronic lower respiratory diseases; Z82.49 Family history of ischemic heart disease and other diseases of the circulatory system; Z73.0 Burn-out
CPT/HCPCS: 36415; 71045; 80048; 80053; 81000; 82150; 82550; 82553; 82805; 82947; 83605; 83615; 83690; 83735; 83874; 83880; 84145; 84484; 85025; 85379; 85610; 85652; 85730; 86141; 87040; 87077; 87088; 87186; 93005; 93041; 94640; 94664; 94760

== ENCOUNTER 2021-07-14 16:30 | Emergency (ER) | payer MEDICARE, MEDICAID ==
[~2021-07-14] VITALS: Ht 175.3 cm; Wt 131.0 kg
[~2021-07-14 16:30] MED LIST changes: +ASPI-1238 PO; +FLUO20CA46 PO; +IBUP-2473 PO; +PREG75CA PO
[2021-07-14 16:35] VITALS: BP 160/119
--- NOTE | 2021-07-14 16:42 | ED Lower Extremity ---
General Chief Complaint: Lower Extremity Stated Complaint: R KNEE PAIN Source: patient Exam Limitations: no limitations (JANELLE ESPITIA APRN) History of Present Illness Date Seen by Provider: Jul 14, 2021 Time Seen by Provider: 16:40 Initial Comments To ER with c/o right knee pain after bending down 1 hour ago and hearing a pop. Had arthroscopy of this knee by Dr Meredith in March and states that she was referred to a nerve doctor that she'll see in august. Onset: just prior to arrival Severity: moderate Pain/Injury Location: right knee Method of Injury: unknown Modifying Factors: Worse With Movement (JANELLE ESPITIA APRN) Allergies and Home Medications Allergies Coded Allergies: nickel (Verified Allergy, Intermediate, RASH, 04/18/21) doxycycline (Verified Allergy, Mild, HIVES, 04/18/21) Iodinated Contrast Media (Verified Allergy, Unknown, 04/18/21) cobalt (Verified Allergy, Unknown, Hives, 04/18/21) penicillin (Verified Allergy, Unknown, HAS RECEIVED ROCEPHIN, 04/18/21) rash Uncoded Allergies: hexachloride (Allergy, Unknown, Hives, 06/24/19) Patient Home Medication List Home Medication List Reviewed: Yes (JANELLE ESPITIA APRN) Albuterol Sulfate (Proair Hfa) 1 Puff Puff, 2 PUFF IH Q4H PRN for WHEEZING Prescribed by: PATRIC MONTERO on 05/14/21 153 Aspirin (Aspirin EC) 81 Mg Tablet.dr, 81 MG PO DAILY PRN for CHEST PAIN, (Reported) Entered as Reported by: ELIU WHALEY on 05/14/21 151 Diclofenac Sodium (Voltaren Arthritis Pain) 20 Gm Gel..gram., 1 GM TP TID Prescribed by: JANELLE ESPITIA on 07/14/21 1702 Fluoxetine HCl (Fluoxetine HCl) 20 Mg Capsule, 40 MG PO DAILY Prescribed by: PATRIC MONTERO on 05/14/21 153 Fluticasone/Vilanterol (Breo Ellipta 200-25 Mcg INH) 1 Each Blst.w.dev, 1 EACH IH DAILY Prescribed by: PATRIC MONTERO on 05/14/21 153 Ibuprofen (Ibuprofen) 200 Mg Tablet, 600 MG PO Q6H PRN for PAIN-MILD (1-4), (Reported) Entered as Reported by: ELIU WHALEY on 05/14/21 1517 Metformin HCl (Metformin HCl) 1,000 Mg Tablet, 1,000 MG PO BID, (Reported) Entered as Reported by: SRINIVASAN BAH on 02/28/17 1044 Pantoprazole Sodium (Pantoprazole Sodium) 40 Mg Tablet.dr, 40 MG PO DAILY Prescribed by: PATRIC MONTERO on 05/14/21 1535 Tramadol HCl (Ultram) 50 Mg Tablet, 50 MG PO Q6H PRN for PAIN-MODERATE (5-7) Prescribed by: JANELLE ESPITIA on 07/14/21 1702 Review of Systems Constitutional: see HPI EENTM: see HPI Respiratory: no symptoms reported Cardiovascular: no symptoms reported Genitourinary: no symptoms reported Musculoskeletal: see HPI Skin: no symptoms reported Psychiatric/Neurological: No Symptoms Reported (JANELLE ESPITIA APRN) Past Lasjhek-Rcxhxl-Cqsfki Hx Immunizations Up To Date Tetanus Booster (TDap): Unknown PED Vaccines UTD: No (JANELLE ESPITIA APRN) Seasonal Allergies Seasonal Allergies: Yes (JANELLE ESPITIA APRN) Past Medical History Surgery/Hospitalization HX: RIGHT KNEE SCOPE 12/27/20 AND 04/25/[address] 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, 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 Sexually Transmitted Disease: No HIV/AIDS: No Genitourinary: Yes Kidney Infection, Bladder Infection, UTI-Chronic Gastrointestinal: Yes (INFLAMATION IN COLON, VENTRAL HERNIA) Abdominal Hernia, Gastroesophageal Reflux, Chronic Constipation, Chronic Diarrhea, Irritable Bowel Musculoskeletal: Yes (RESTLESS LEG SYNDROME) Arthritis, Fibromyalgia, Chronic Back Pain Endocrine: Yes (OBESITY) Diabetes, Non-Insulin dep HEENT: Yes (GLASSES) Loss of Vision: Bilateral Hearing Impairment: Denies Cancer: No Psychosocial: Yes Anxiety, Bipolar, Depression Integumentary: No Blood Disorders: No Adverse Reaction/Blood Tranf: No (N/A) (JANELLE ESPITIA APRN) Family Medical History Arthritis 19 MOTHER, Onset:Unknown Asthma 19 FATHER, Onset:Unknown Cataracts 19 MOTHER, Onset:Unknown Diabetes mellitus 19 MOTHER, Onset:Unknown FH: COPD (chronic obstructive pulmonary disease) 19 FATHER, Onset:Unknown Hypercholesterolemia 19 MOTHER MS (multiple sclerosis) G8 SISTER, Onset:Unknown Physical Exam Vital Signs Vital Signs - First Documented 07/14/21 16:35 Temp 36.4 Pulse 110 Resp 24 B/P (MAP) 160/119 (133) Pulse Ox 97 O2 Delivery Room Air (LAYTON HERNANDEZ MD) Vital Signs Capillary Refill : (JANELLE ESPITIA APRN) Height, Weight, BMI Height: 5'9.00" Weight: 288lbs. 0.0oz. 130.741119zl; 46.08 BMI Method:Stated General Appearance: WD/WN, no apparent distress Neck: non-tender, full range of motion Hips: bilateral hip non-tender, bilateral hip normal inspection, bilateral hip normal range of motion Legs: bilateral leg non-tender, bilateral leg normal inspection, bilateral leg normal range of motion Knees: right knee pain, right knee soft tissue tenderness Ankles: bilateral ankle non-tender, bilateral ankle normal inspection, bilateral ankle normal range of motion Feet: bilateral foot non-tender, bilateral foot normal inspection, bilateral f oot normal range of motion Neurologic/Psychiatric: alert, normal mood/affect, oriented x 3 Skin: normal color, warm/dry (JANELLE ESPITIA APRN) Progress/Results/Core Measures Results/Orders Vital Signs/I&O 07/14/21 16:35 Temp 36.4 Pulse 110 Resp 24 B/P (MAP) 160/119 (133) Pulse Ox 97 O2 Delivery Room Air (ALYTON HERNANDEZ MD) Departure Impression Primary Impression: Knee pain Disposition: 01 HOME, SELF-CARE Condition: Stable Departure-Patient Inst. Decision time for Depature: 16:59 (JANELLE ESPITIA APRN) Referrals: NICKY THOMPSON MD (PCP/Family) Primary Care Physician Patient Instructions: Knee Pain (DC) Add. Discharge Instructions: Rub the ointment onto the knee three times a day. Follow up with Dr Meredith next week. All discharge instructions reviewed with patient and/or family. Voiced unde rstanding. Scripts Diclofenac Sodium (Voltaren Arthritis Pain) 20 Gm Gel..gram. 1 GM TP TID for 7 Days, #1 EA Prov: JANELLE ESPITIA APRN 07/14/21 Tramadol HCl (Ultram) 50 Mg Tablet 50 MG PO Q6H PRN for PAIN-MODERATE (5-7), #10 TAB Prov: JANELLE ESPITIA APRN 07/14/21 ATTENDING PHYSICIAN NOTE: I was physically present as attending physician in the emergency department during the care of this patient, but I was not directly involved in the decision making or delivery of care for this patient. (LAYTON HERNANDEZ MD) JANELLE ESPITIA APRN Jul 14, 2021 16:42 LAYTON HERNANDEZ MD Jul 15, 2021 06:31
[2021-07-14] MEDS ORDERED: HYDROcodone/APAP 5 MG/325 MG (LORTAB) TAB PO ONE (16:45)
[2021-07-14] MEDS ORDERED: KETOROLAC 60 MG/2 ML VIAL IM ONE (16:45)
[2021-07-14] MEDS ORDERED: DICL20GE TP (17:02)
[2021-07-14] MEDS ORDERED: TRAM-42 PO (17:02)
--- NOTE | 2021-07-14 17:05 | Diagnostic Imaging Report ---
INDICATION: Right knee pain. COMPARISON: None. FINDINGS: 3 views of the right knee joint demonstrate no acute fracture or dislocation. No focal osseous lesions are seen. No significant joint effusion is seen. The surrounding soft tissue structures are unremarkable. There are no radiopaque foreign bodies. IMPRESSION: No acute fractures or dislocations of the right knee joint. Dictated by: Dictated on workstation # [id number]
== END 2021-07-14 17:13 | disposition home or self-care (01) ==
LOC: EDUNIT# 16:30 → ER 16:31
DX: M25.561 Pain in right knee (principal); G47.30 Sleep apnea, unspecified; J44.9 Chronic obstructive pulmonary disease, unspecified; K21.9 Gastro-esophageal reflux disease without esophagitis; E11.9 Type 2 diabetes mellitus without complications; F41.9 Anxiety disorder, unspecified; F32.9 Major depressive disorder, single episode, unspecified; E66.9 Obesity, unspecified; Z68.42 Body mass index [BMI] 45.0-49.9, adult; Z79.84 Long term (current) use of oral hypoglycemic drugs; Z79.82 Long term (current) use of aspirin; Z79.899 Other long term (current) drug therapy
CPT/HCPCS: 73562

== ENCOUNTER 2021-08-06 20:05 | Emergency (ER) | payer MEDICARE, MEDICAID ==
[~2021-08-06] VITALS: Ht 175.2 cm; Wt 127.0 kg
[~2021-08-06 20:05] MED LIST changes: +DICL20GE TP
--- NOTE | 2021-08-06 21:15 | ED General ---
General Chief Complaint: COVID19 Suspect/Confirmed Stated Complaint: LOSS OF TASTE/BODY ACHES/COUGH Nursing Triage Note: PATIENT STATES THAT SHE BECAME ACHY, LOST HER TASTE AND SMELL, AND HAS A DRY COUGH TODAY. SHE WAS COVID + IN APR 2021. Source of Information: Patient Exam Limitations: No Limitations History of Present Illness Date Seen by Provider: Aug 06, 2021 Time Seen by Provider: 21:14 Initial Comments To ER with body aches cough loss of taste. She had Covid in April. Timing/Duration: 1-2 Days Severity: Moderate Associated Systoms: Denies Symptoms Allergies and Home Medications Allergies Coded Allergies: nickel (Verified Allergy, Intermediate, RASH, 04/18/21) doxycycline (Verified Allergy, Mild, HIVES, 04/18/21) Iodinated Contrast Media (Verified Allergy, Unknown, 04/18/21) cobalt (Verified Allergy, Unknown, Hives, 04/18/21) penicillin (Verified Allergy, Unknown, HAS RECEIVED ROCEPHIN, 04/18/21) rash Uncoded Allergies: hexachloride (Allergy, Unknown, Hives, 06/24/19) Patient Home Medication List Home Medication List Reviewed: Yes Albuterol Sulfate (Proair Hfa) 1 Puff Puff, 2 PUFF IH Q4H PRN for WHEEZING Prescribed by: PATRIC MONTERO on 05/14/21 153 Aspirin (Aspirin EC) 81 Mg Tablet.dr, 81 MG PO DAILY PRN for CHEST PAIN, (Reported) Entered as Reported by: ELIU WHALEY on 05/14/21 151 Diclofenac Sodium (Voltaren Arthritis Pain) 20 Gm Gel..gram., 1 GM TP TID Prescribed by: JANELLE ESPITIA on 07/14/21 170 Fluoxetine HCl (Fluoxetine HCl) 20 Mg Capsule, 40 MG PO DAILY Prescribed by: PATRIC MONTERO on 05/14/21 153 Fluticasone/Vilanterol (Breo Ellipta 200-25 Mcg INH) 1 Each Blst.w.dev, 1 EACH IH DAILY Prescribed by: PATRIC MONTERO on 05/14/21 153 Ibuprofen (Ibuprofen) 200 Mg Tablet, 600 MG PO Q6H PRN for PAIN-MILD (1-4), (Reported) Entered as Reported by: ELIU WHALEY on 05/14/21 151 Metformin HCl (Metformin HCl) 1,000 Mg Tablet, 1,000 MG PO BID, (Reported) Entered as Reported by: SRINIVASAN BAH on 02/28/17 1044 Pantoprazole Sodium (Pantoprazole Sodium) 40 Mg Tablet.dr, 40 MG PO DAILY Prescribed by: PATRIC MONTERO on 05/14/21 1535 Tramadol HCl (Ultram) 50 Mg Tablet, 50 MG PO Q6H PRN for PAIN-MODERATE (5-7) Prescribed by: JANELLE ESPITIA on 07/14/21 1702 Review of Systems Review of Systems Constitutional: see HPI EENTM: see HPI Respiratory: no symptoms reported Cardiovascular: no symptoms reported Genitourinary: no symptoms reported Musculoskeletal: no symptoms reported Skin: no symptoms reported Psychiatric/Neurological: No Symptoms Reported Hematologic/Lymphatic: No Symptoms Reported Immunological/Allergic: no symptoms reported Past Cjjmdeo-Rgxboc-Wppwny Hx Immunizations Up To Date Tetanus Booster (TDap): Unknown PED Vaccines UTD: No First/Initial COVID19 Vaccinat: NOT VACCINATED Second COVID19 Vaccination Abdelrahman: NOT VACCINATED Third COVID19 Vaccination Date: NOT VACCINATED Seasonal Allergies Seasonal Allergies: Yes Past Medical History Surgery/Hospitalization HX: RIGHT KNEE SCOPE 12/27/20 AND 04/25/[address] 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, 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 Sexually Transmitted Disease: No HIV/AIDS: No Genitourinary: Yes Kidney Infection, Bladder Infection, UTI-Chronic Gastrointestinal: Yes (INFLAMATION IN COLON, VENTRAL HERNIA) Abdominal Hernia, Gastroesophageal Reflux, Chronic Constipation, Chronic Diarrhea, Irritable Bowel Musculoskeletal: Yes (RESTLESS LEG SYNDROME) Arthritis, Fibromyalgia, Chronic Back Pain Endocrine: Yes (OBESITY) Diabetes, Non-Insulin dep HEENT: Yes (GLASSES) Loss of Vision: Bilateral Hearing Impairment: Denies Cancer: No Psychosocial: Yes Anxiety, Bipolar, Depression Integumentary: No Blood Disorders: No Adverse Reaction/Blood Tranf: No (N/A) Family Medical History Arthritis 19 MOTHER, Onset:Unknown Asthma 19 FATHER, Onset:Unknown Cataracts 19 MOTHER, Onset:Unknown Diabetes mellitus 19 MOTHER, Onset:Unknown FH: COPD (chronic obstructive pulmonary disease) 19 FATHER, Onset:Unknown Hypercholesterolemia 19 MOTHER MS (multiple sclerosis) G8 SISTER, Onset:Unknown Physical Exam Vital Signs Vital Signs - First Documented 08/06/21 20:10 Temp 35.9 Pulse 76 Resp 20 B/P (MAP) 146/110 (122) Pulse Ox 95 O2 Delivery Room Air Capillary Refill : Less Than 3 Seconds Height, Weight, BMI Height: 5'9.00" Weight: 288lbs. 0.0oz. 130.319267wp; 41.00 BMI Method:Stated General Appearance: No Apparent Distress, WD/WN Eyes: Bilateral Eye Normal Inspection, Bilateral Eye PERRL, Bilateral Eye EOMI Neck: Full Range of Motion, Normal Inspection Respiratory: Lungs Clear, Normal Breath Sounds, No Accessory Muscle Use, No Respiratory Distress Gastrointestinal: Normal Bowel Sounds, Non Tender, Soft Extremity: Normal Capillary Refill, Normal Inspection Neurologic/Psychiatric: Alert, Oriented x3 Skin: Normal Color, Warm/Dry Progress/Results/Core Measures Suspected Sepsis SIRS Temperature: Pulse: 76 Respiratory Rate: 20 Blood Pressure 146 /110 Mean: 122 Results/Orders Lab Results Laboratory Tests Test 08/06/21 20:27 Range/Units SARS-CoV-2 RNA (RT-PCR) Not Detected Not Detecte My Orders Orders - JANELLE ESPITIA APRN Covid 19 Inhouse Test (08/06/21 20:27) Vital Signs/I&O 08/06/21 08/06/21 20:10 20:10 Temp 35.9 Pulse 76 Resp 20 B/P (MAP) 146/110 (122) Pulse Ox 95 O2 Delivery Room Air Room Air Capillary Refill : Less Than 3 Seconds Blood Pressure Mean: 122 Departure Impression Primary Impression: Viral syndrome Disposition: 01 HOME, SELF-CARE Condition: Stable Departure-Patient Inst. Decision time for Depature: 21:15 Referrals: NICKY THOMPSON MD (PCP/Family) Primary Care Physician Patient Instructions: Viral Upper Respiratory Infection, Adult (DC) JANELLE ESPITIA APRN Aug 06, 2021 21:15
[2021-08-06 21:26] VITALS: BP 116/65
== END 2021-08-06 21:29 | disposition home or self-care (01) ==
LOC: EDUNIT# 20:05 → ER 20:06
DX: B34.9 Viral infection, unspecified (principal); G47.30 Sleep apnea, unspecified; J44.9 Chronic obstructive pulmonary disease, unspecified; K21.9 Gastro-esophageal reflux disease without esophagitis; F41.9 Anxiety disorder, unspecified; F32.9 Major depressive disorder, single episode, unspecified; E11.9 Type 2 diabetes mellitus without complications; E66.9 Obesity, unspecified; Z20.822 Contact with and (suspected) exposure to COVID-19; Z68.41 Body mass index [BMI] 40.0-44.9, adult; Z86.16 Personal history of COVID-19; Z79.82 Long term (current) use of aspirin; Z79.899 Other long term (current) drug therapy; Z79.84 Long term (current) use of oral hypoglycemic drugs
CPT/HCPCS: 87636; 99283

== ENCOUNTER 2021-08-27 17:25 | Emergency (ER) | payer MEDICARE, MEDICAID ==
[~2021-08-27] VITALS: Ht 175 cm; Wt 129.0 kg
[~2021-08-27 17:25] MED LIST changes: +CYCL10TA25 PO; -CYCL10TA9 PO; -FLUO20CA46 PO; +FLUO20CA48 PO; -LEVO500T80 PO; +LEVO500T81 PO
--- NOTE | 2021-08-27 17:52 | ED Lower Extremity ---
General Chief Complaint: Lower Extremity Stated Complaint: R KNEE PAIN Nursing Triage Note: PT STATES RT KNEE PAIN AFTER HITTING IT WITH HER CAR DOOR THIS MORNING. 400MG IBUPROFEN TAKEN AT NOON. Source: patient Exam Limitations: no limitations History of Present Illness Date Seen by Provider: Aug 27, 2021 Time Seen by Provider: 17:51 Initial Comments Patient is a 60-year-old female who presents ED with right knee pain. Patient states she hit her knee against her door of her car this morning. She reports immediate pain. Pain with walking and with movement. Able to stand and bear weight. She has been taking ibuprofen without much improvement. She reports pain radiating proximal and distally. Reports mild swelling without bruising or redness. Denies fever, chills, nausea vomiting, diarrhea Allergies and Home Medications Allergies Coded Allergies: nickel (Verified Allergy, Intermediate, RASH, 04/18/21) doxycycline (Verified Allergy, Mild, HIVES, 04/18/21) Iodinated Contrast Media (Verified Allergy, Unknown, 04/18/21) cobalt (Verified Allergy, Unknown, Hives, 04/18/21) penicillin (Verified Allergy, Unknown, HAS RECEIVED ROCEPHIN, 04/18/21) rash Uncoded Allergies: hexachloride (Allergy, Unknown, Hives, 06/24/19) Patient Home Medication List Home Medication List Reviewed: Yes Albuterol Sulfate (Proair Hfa) 1 Puff Puff, 2 PUFF IH Q4H PRN for WHEEZING Prescribed by: PATRIC MONTERO on 05/14/21 1535 Aspirin (Aspirin EC) 81 Mg Tablet.dr, 81 MG PO DAILY PRN for CHEST PAIN, (Reported) Entered as Reported by: ELIU WHALEY on 05/14/21 1517 Diclofenac Sodium (Voltaren Arthritis Pain) 20 Gm Gel..gram., 1 GM TP TID Prescribed by: JANELLE ESPITIA on 07/14/21 1702 Fluoxetine HCl (Fluoxetine HCl) 20 Mg Capsule, 40 MG PO DAILY Prescribed by: PATRIC MONTERO on 05/14/21 1535 Fluticasone/Vilanterol (Breo Ellipta 200-25 Mcg INH) 1 Each Blst.w.dev, 1 EACH IH DAILY Prescribed by: PATRIC MONTERO on 05/14/21 1535 Ibuprofen (Ibuprofen) 200 Mg Tablet, 600 MG PO Q6H PRN for PAIN-MILD (1-4), (Reported) Entered as Reported by: ELIU WHALEY on 05/14/21 1517 Metformin HCl (Metformin HCl) 1,000 Mg Tablet, 1,000 MG PO BID, (Reported) Entered as Reported by: SRINIVASAN BAH on 02/28/17 1044 Naproxen (Naproxen) 500 Mg Tablet.dr, 500 MG PO BID Prescribed by: VIJAYA HOFFMAN on 08/27/21 1830 Pantoprazole Sodium (Pantoprazole Sodium) 40 Mg Tablet.dr, 40 MG PO DAILY Prescribed by: PATRIC MONTERO on 05/14/21 1535 Tramadol HCl (Ultram) 50 Mg Tablet, 50 MG PO Q6H PRN for PAIN-MODERATE (5-7) Prescribed by: JANELLE ESPITIA on 07/14/21 1702 Review of Systems Constitutional: No see HPI, No chills, No diaphoresis, No dizziness EENTM: No ear pain, No eye pain Respiratory: No cough, No short of breath Cardiovascular: No edema Gastrointestinal: No abdominal pain, No constipation, No diarrhea, No vomiting Genitourinary: No dysuria Musculoskeletal: joint pain, joint swelling Skin: No change in color, No change in hair/nails All Other Systems Reviewed Negative Unless Noted: Yes Past Ltjfvlm-Ckiopm-Hmsnsq Hx Patient Social History Tobacco Use?: Yes Smoking Status: Former Smoker Substance use?: No Alcohol Use?: No Immunizations Up To Date Tetanus Booster (TDap): Unknown PED Vaccines UTD: No First/Initial COVID19 Vaccinat: NOT VACCINATED Second COVID19 Vaccination Abdelrahman: NOT VACCINATED Third COVID19 Vaccination Date: NOT VACCINATED Seasonal Allergies Seasonal Allergies: Yes Past Medical History Surgery/Hospitalization HX: RIGHT KNEE SCOPE 12/27/20 AND 04/25/[address] 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 Sexually Transmitted Disease: No HIV/AIDS: No Genitourinary: Yes Kidney Infection, Bladder Infection, UTI-Chronic Gastrointestinal: Yes (INFLAMATION IN COLON, VENTRAL HERNIA) Abdominal Hernia, Gastroesophageal Reflux, Chronic Constipation, Chronic Diarrhea, Irritable Bowel Musculoskeletal: Yes (RESTLESS LEG SYNDROME) Arthritis, Fibromyalgia, Chronic Back Pain Endocrine: Yes (OBESITY) Diabetes, Non-Insulin dep HEENT: Yes (GLASSES) Loss of Vision: Bilateral Hearing Impairment: Denies Cancer: No Psychosocial: Yes Anxiety, Bipolar, Depression Integumentary: No Blood Disorders: No Adverse Reaction/Blood Tranf: No (N/A) Family Medical History Arthritis 19 MOTHER, Onset:Unknown Asthma 19 FATHER, Onset:Unknown Cataracts 19 MOTHER, Onset:Unknown Diabetes mellitus 19 MOTHER, Onset:Unknown FH: COPD (chronic obstructive pulmonary disease) 19 FATHER, Onset:Unknown Hypercholesterolemia 19 MOTHER MS (multiple sclerosis) G8 SISTER, Onset:Unknown Physical Exam Vital Signs Vital Signs - First Documented 08/27/21 08/27/21 17:34 18:59 Temp 36.8 Pulse 105 Resp 22 B/P (MAP) 101/68 Pulse Ox 95 O2 Delivery Room Air Capillary Refill : Less Than 3 Seconds Height, Weight, BMI Height: 5'9.00" Weight: 288lbs. 0.0oz. 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, no motor/sensory deficits, alert, normal mood/affect, oriented x 3 Skin: normal color, warm/dry Progress/Results/Core Measures Results/Orders My Orders Orders - CHANO CANSECO Knee, Right, 3 Views (08/27/21 17:49) Hydrocodone/Apap 5/325 Tablet (Lortab 5 (08/27/21 18:00) Medications Given in ED Current Medications Medications Dose Ordered Sig/Veronika Route Start Time Stop Time Status Last Admin Dose Admin Acetaminophen/ Hydrocodone Bitart 1 ea ONCE ONCE PO 08/27/21 18:00 08/27/21 18:01 DC 08/27/21 18:10 1 EA Vital Signs/I&O 08/27/21 08/27/21 08/27/21 17:34 18:10 18:59 Temp 36.8 36.8 36.8 Pulse 105 87 Resp 22 18 B/P (MAP) 101/68 Pulse Ox 95 95 O2 Delivery Room Air Room Air Departure Communication (Admissions) X-ray negative for fracture. No laxity with valgus or varus stress. Negative anterior and posterior drawer test. Patient able to stand and bear weight. Was given a dose of pain medication. Recommend Td wrap for support. Outpatient orthopedic follow-up in 7 to 10 days for reevaluation. Return precaution were discussed with patient. Impression Primary Impression: Knee pain Disposition: HOME, SELF-CARE Condition: Stable Departure-Patient Inst. Decision time for Depature: 18:29 Referrals: NICKY THOMPSON MD (PCP/Family) Primary Care Physician ORVILLE REDD MD Patient Instructions: Knee Pain (DC) Scripts Naproxen (Naproxen) 500 Mg Tablet. 500 MG PO BID for 10 Days, #20 TAB Prov: CHANO CANSECO 08/27/21 CHANO CANSECO Aug 27, 2021 17:52
[2021-08-27] MEDS ORDERED: HYDROcodone/APAP 5 MG/325 MG (LORTAB) TAB PO ONE (18:00)
--- NOTE | 2021-08-27 18:13 | Diagnostic Imaging Report ---
INDICATION: Injury to right knee. AP, oblique, and lateral views of the right knee are obtained. FINDINGS: No fracture or acute bony abnormality is seen. There is no overt joint effusion. IMPRESSION: Negative right knee. Dictated by: Dictated on workstation # [id number]
[2021-08-27] MEDS ORDERED: NAPR500T8 PO (18:30)
[2021-08-27 18:59] VITALS: BP 101/68
== END 2021-08-27 18:59 | disposition home or self-care (01) ==
LOC: EDUNIT# 17:25 → ER 17:27
DX: M25.561 Pain in right knee (principal); K21.9 Gastro-esophageal reflux disease without esophagitis; F41.9 Anxiety disorder, unspecified; F32.9 Major depressive disorder, single episode, unspecified; E11.9 Type 2 diabetes mellitus without complications; E66.9 Obesity, unspecified; G47.30 Sleep apnea, unspecified; J44.9 Chronic obstructive pulmonary disease, unspecified; Z68.41 Body mass index [BMI] 40.0-44.9, adult; Z87.891 Personal history of nicotine dependence; Z79.899 Other long term (current) drug therapy; Z79.84 Long term (current) use of oral hypoglycemic drugs; Z79.82 Long term (current) use of aspirin
CPT/HCPCS: 73562

== ENCOUNTER 2021-09-29 08:51 | Emergency (ER) | payer MEDICARE, MEDICAID ==
[~2021-09-29] VITALS: Ht 175 cm; Wt 120.0 kg
[~2021-09-29 08:51] MED LIST changes: +NAPR500T8 PO
[2021-09-29 09:07] VITALS: BP 147/78
--- NOTE | 2021-09-29 09:11 | ED Upper Extremity ---
General Chief Complaint: Upper Extremity Stated Complaint: FALL/LEFT HAND INJURY Source: patient Exam Limitations: no limitations History of Present Illness Date Seen by Provider: Sep 29, 2021 Time Seen by Provider: 09:02 Initial Comments Patient is a 60-year-old female, morbidly obese who presents to the emergency department today with a chief complaint of left wrist and hand pain. Patient states she was getting out of her car last evening when she had a mechanical trip and fall. She tried to catch herself with her left hand. She is right- handed. Patient states that the pain radiates down the medial aspect of the dorsum of her left hand. It also radiates up into her forearm and elbow. She states she cannot make a fist or move her wrist. Patient did not put an ice pack on the injured area. She has not taken any medications for the pain. She denies hitting her head or loss of consciousness. No other complaints of injury over her body. No recent illnesses. All other review of systems reviewed and negative except as stated Onset: other (Last night) Severity: severe Pain/Injury Location: left wrist, left hand, left 4th finger, left 5th finger Method of Injury: fell Modifying Factors: Worse With Movement Allergies and Home Medications Allergies Coded Allergies: nickel (Verified Allergy, Intermediate, RASH, 04/18/21) doxycycline (Verified Allergy, Mild, HIVES, 04/18/21) Iodinated Contrast Media (Verified Allergy, Unknown, 04/18/21) cobalt (Verified Allergy, Unknown, Hives, 04/18/21) penicillin (Verified Allergy, Unknown, HAS RECEIVED ROCEPHIN, 04/18/21) rash Uncoded Allergies: hexachloride (Allergy, Unknown, Hives, 06/24/19) Patient Home Medication List Home Medication List Reviewed: Yes Albuterol Sulfate (Proair Hfa) 1 Puff Puff, 2 PUFF IH Q4H PRN for WHEEZING Prescribed by: PATRIC MONTERO on 05/14/21 153 Aspirin (Aspirin EC) 81 Mg Tablet.dr, 81 MG PO DAILY PRN for CHEST PAIN, (Reported) Entered as Reported by: ELIU WHALEY on 05/14/21 151 Diclofenac Sodium (Voltaren Arthritis Pain) 20 Gm Gel..gram., 1 GM TP TID Prescribed by: JANELLE ESPITIA on 07/14/21 1702 Fluoxetine HCl (Fluoxetine HCl) 20 Mg Capsule, 40 MG PO DAILY Prescribed by: PATRIC MONTERO on 05/14/21 153 Fluticasone/Vilanterol (Breo Ellipta 200-25 Mcg INH) 1 Each Blst.w.dev, 1 EACH IH DAILY Prescribed by: PATRIC MONTERO on 05/14/21 153 Ibuprofen (Ibuprofen) 200 Mg Tablet, 600 MG PO Q6H PRN for PAIN-MILD (1-4), (Reported) Entered as Reported by: ELIU WHALEY on 05/14/21 1517 Metformin HCl (Metformin HCl) 1,000 Mg Tablet, 1,000 MG PO BID, (Reported) Entered as Reported by: SRINIVASAN BAH on 02/28/17 1044 Naproxen (Naproxen) 500 Mg Tablet., 500 MG PO BID Prescribed by: VIJAYA HOFFMAN on 08/27/21 1830 Pantoprazole Sodium (Pantoprazole Sodium) 40 Mg Tablet.dr, 40 MG PO DAILY Prescribed by: PATRIC MONTERO on 05/14/21 1535 Tramadol HCl (Ultram) 50 Mg Tablet, 50 MG PO Q6H PRN for PAIN-MODERATE (5-7) Prescribed by: JANELLE ESPITIA on 07/14/21 1702 Review of Systems Constitutional: see HPI EENTM: no symptoms reported Respiratory: no symptoms reported Cardiovascular: no symptoms reported Gastrointestinal: no symptoms reported Genitourinary: no symptoms reported Musculoskeletal: joint pain (Left dorsal hand and wrist) Skin: no symptoms reported Psychiatric/Neurological: Anxiety All Other Systems Reviewed Negative Unless Noted: Yes Past Htemjti-Ihwtmu-Decvzp Hx Immunizations Up To Date Tetanus Booster (TDap): Unknown PED Vaccines UTD: No First/Initial COVID19 Vaccinat: NOT VACCINATED Second COVID19 Vaccination Abdelrahman: NOT VACCINATED Third COVID19 Vaccination Date: NOT VACCINATED Seasonal Allergies Seasonal Allergies: Yes Past Medical History Surgery/Hospitalization HX: RIGHT KNEE SCOPE 12/27/20 AND 04/25/[address] 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, Menopausal Sexually Transmitted Disease: No HIV/AIDS: No Genitourinary: Yes Kidney Infection, Bladder Infection, UTI-Chronic Gastrointestinal: Yes (INFLAMATION IN COLON, VENTRAL HERNIA) Abdominal Hernia, Gastroesophageal Reflux, Chronic Constipation, Chronic Diarrhea, Irritable Bowel Musculoskeletal: Yes (RESTLESS LEG SYNDROME) Arthritis, Fibromyalgia, Chronic Back Pain Endocrine: Yes (OBESITY) Diabetes, Non-Insulin dep HEENT: Yes (GLASSES) Loss of Vision: Bilateral Hearing Impairment: Denies Cancer: No Psychosocial: Yes Anxiety, Bipolar, Depression Integumentary: No Blood Disorders: No Adverse Reaction/Blood Tranf: No (N/A) Family Medical History Arthritis 19 MOTHER, Onset:Unknown Asthma 19 FATHER, Onset:Unknown Cataracts 19 MOTHER, Onset:Unknown Diabetes mellitus 19 MOTHER, Onset:Unknown FH: COPD (chronic obstructive pulmonary disease) 19 FATHER, Onset:Unknown Hypercholesterolemia 19 MOTHER MS (multiple sclerosis) G8 SISTER, Onset:Unknown Physical Exam Vital Signs Vital Signs - First Documented 09/29/21 09:07 Temp 36.3 Pulse 79 Resp 16 B/P (MAP) 147/78 (101) Pulse Ox 99 O2 Delivery Room Air Capillary Refill : Height, Weight, BMI Height: 5'9.00" Weight: 288lbs. 0.0oz. 130.141841xr; 42.00 BMI Method:Stated General Appearance: WD/WN, mild distress Neck: non-tender, full range of motion Cardiovascular: regular rate, rhythm Respiratory: lungs clear, normal breath sounds, no respiratory distress, no accessory muscle use Gastrointestinal: normal bowel sounds, non tender, soft Shoulder: normal inspection, non-tender, no evidence of injury, normal ROM Elbow/Forearm: normal inspection, non-tender, no evidence of injury, normal ROM Wrist: Yes normal inspection, Yes limited ROM, Yes soft tissue tenderness Hand: Left, bone tenderness (Dorsal left fourth and fifth metacarpals), limited ROM, soft tissue tenderness Neurologic/Psychiatric: alert, normal mood/affect, oriented x 3 Skin: normal color, warm/dry Progress/Results/Core Measures Results/Orders My Orders Orders - HEATHER SINGLETON MD Hand, Left, 3 Views (09/29/21 09:07) Wrist, Right, 3 Views Or More (09/29/21 09:07) Ibuprofen Tablet (Motrin Tablet) (09/29/21 09:15) Medications Given in ED Current Medications Medications Dose Ordered Sig/Veronika Route Start Time Stop Time Status Last Admin Dose Admin Ibuprofen 600 mg ONCE ONCE PO 09/29/21 09:15 09/29/21 09:16 DC 09/29/21 09:13 600 MG Vital Signs/I&O 09/29/21 09:07 Temp 36.3 Pulse 79 Resp 16 B/P (MAP) 147/78 (101) Pulse Ox 99 O2 Delivery Room Air Diagnostic Imaging Diagonstic Imaging: Xray Comments [facility] [place], [place] NAME: LENNY OROSCO MED REC#: [id number] PT STATUS: REG ER : 1960 PHYSICIAN: HEATHER SINGLETON MD ADMIT DATE: 09/29/21/ER Draft Date of Exam:09/29/21 HAND, LEFT, 3 VIEWS CLINICAL HISTORY: Fall. Left hand pain. COMPARISON: 03/15/2021. TECHNIQUE: 3 views of the left hand. FINDINGS: There is no acute fracture or dislocation of the left hand. Alignment is anatomic. The imaged joint spaces are preserved. The soft tissues are unremarkable. IMPRESSION: 1. No acute fracture or dislocation in the left hand. Dictated on workstation # [id number] Dict: 09/29/21935 Trans: 09/29/2139 [facility] [id number] Interpreted by: LEXX LILLY DO Electronically signed by: \\ NAME: ANA LUISALENNY Christianson MED REC#: [id number] PT STATUS: REG ER : 1960 PHYSICIAN: HEATHER SINGLETON MD ADMIT DATE: 09/29/21/ER Draft Date of Exam:09/29/21 WRIST, RIGHT, 3 VIEWS OR MORE EXAMINATION: Left wrist 3 or more views REASON FOR EXAM: Fall. Left wrist pain. COMPARISON: None available. FINDINGS: There is no acute fracture or dislocation of the left wrist. There is normal alignment of the wrist and carpel bones. The imaged joint spaces are preserved. No large joint effusion is seen in the left wrist. The surrounding soft tissues are unremarkable. IMPRESSION: 1. No acute fracture or dislocation in the left wrist. Dictated on workstation # [id number] Dict: 09/29/21 0937 Trans: 09/29/21 0942 [facility] [id number] Interpreted by: LEXX LILLY DO Electronically signed by: Departure Impression Primary Impression: Contusion of left hand Qualified Codes: S60.222A - Contusion of left hand, initial encounter Disposition: HOME, SELF-CARE Condition: Stable Departure-Patient Inst. Decision time for Depature: 09:46 Referrals: NICKY THOMPSON MD (PCP/Family) Primary Care Physician Patient Instructions: Minor Contusion ED Add. Discharge Instructions: You can keep an ice pack on the back of your left hand to help reduce swelling and pain. Iwkh-iit-ebakmet ibuprofen, 3 tablets which is 600 mg every 6 hours as needed for pain. You can keep an Td wrap on the hand for the next 24 hours this might also help with discomfort. Upsy-xip-czxatzy Biofreeze may help with discomfort this is a pain spray you can use. Follow-up with your primary care doctor. Return to the emergency department for any new, concerning or emergent complaints. Copy Copies To 1: NICKY THOMPSON MD, KATHRYN M MD Sep 29, 2021 09:11
[2021-09-29] MEDS ORDERED: IBUPROFEN 600 MG (MOTRIN) TAB PO ONE (09:15)
--- NOTE | 2021-09-29 09:40 | Diagnostic Imaging Report ---
CLINICAL HISTORY: Fall. Left hand pain. COMPARISON: 03/15/2021. TECHNIQUE: 3 views of the left hand. FINDINGS: There is no acute fracture or dislocation of the left hand. Alignment is anatomic. The imaged joint spaces are preserved. The soft tissues are unremarkable. IMPRESSION: 1. No acute fracture or dislocation in the left hand. Dictated by: Dictated on workstation # [id number]
--- NOTE | 2021-09-29 09:43 | Diagnostic Imaging Report ---
EXAMINATION: Left wrist 3 or more views REASON FOR EXAM: Fall. Left wrist pain. COMPARISON: None available. FINDINGS: There is no acute fracture or dislocation of the left wrist. There is normal alignment of the wrist and carpel bones. The imaged joint spaces are preserved. No large joint effusion is seen in the left wrist. The surrounding soft tissues are unremarkable. IMPRESSION: 1. No acute fracture or dislocation in the left wrist. Dictated by: Dictated on workstation # [id number]
== END 2021-09-29 09:54 | disposition home or self-care (01) ==
LOC: EDUNIT# 08:51 → ER 08:53
DX: S60.222A Contusion of left hand, initial encounter (principal); G47.30 Sleep apnea, unspecified; J44.9 Chronic obstructive pulmonary disease, unspecified; F41.9 Anxiety disorder, unspecified; F32.9 Major depressive disorder, single episode, unspecified; K21.9 Gastro-esophageal reflux disease without esophagitis; E11.9 Type 2 diabetes mellitus without complications; Z79.82 Long term (current) use of aspirin; Z79.899 Other long term (current) drug therapy; Z79.84 Long term (current) use of oral hypoglycemic drugs; W01.0XXA Fall on same level from slipping, tripping and stumbling without subsequent striking against object, initial encounter
CPT/HCPCS: 73110; 73130

== ENCOUNTER 2021-11-05 05:28 | Outpatient (RCR) | payer MEDICARE, MEDICAID ==
[2021-10-31 13:36] LABS: BASOPHILS % (AUTO) 0 % (0-10); EOSINOPHILS # (AUTO) 0.2 10^3/uL (0.0-0.3); EOSINOPHILS % (AUTO) 2 % (0-10); HEMATOCRIT 40 % (35-52); HEMOGLOBIN 12.7 g/dL (11.5-16.0); LYMPHOCYTES # (AUTO) 2.4 10^3/uL (1.0-4.0); LYMPHOCYTES % (AUTO) 32 % (12-44); MEAN CORPUSCULAR HEMOGLOBIN 26 pg (25-34); MEAN CORPUSCULAR HGB CONC 32 g/dL (32-36); MEAN CORPUSCULAR VOLUME 83 fL (80-99); MEAN PLATELET VOLUME 12.4 fL (9.0-12.2); MONOCYTES # (AUTO) 0.4 10^3/uL (0.0-1.0); MONOCYTES % (AUTO) 6 % (0-12); NEUTROPHILS # (AUTO) 4.5 10^3/uL (1.8-7.8); NEUTROPHILS % (AUTO) 59 % (42-75); PLATELET COUNT 238 10^3/uL (130-400); WHITE BLOOD COUNT 7.5 10^3/uL (4.3-11.0)
[2021-10-31 13:37] LABS: BILIRUBIN,URINE NEGATIVE (NEGATIVE); CLARITY,URINE CLEAR; COLOR,URINE YELLOW; GLUCOSE, URINE (UA) 1+ (NEGATIVE); KETONES,URINE NEGATIVE (NEGATIVE); LEUKOCYTE ESTERASE ,URINE NEGATIVE (NEGATIVE); NITRITE,URINE NEGATIVE (NEGATIVE); PH,URINE 6.5 (5-9); PROTEIN,URINE NEGATIVE (NEGATIVE)
--- NOTE | 2021-10-31 13:42 | Diagnostic Imaging Report ---
INDICATION: Presurgical planning. EXAMINATION: Two view chest on 10/31/2021. COMPARISON: 05/13/2021. FINDINGS: The cardiomediastinal silhouette is unremarkable. The pulmonary vasculature is within normal limits. The lungs and pleural spaces are clear. IMPRESSION: No evidence of an acute cardiopulmonary process. Dictated by: Dictated on workstation # [id number]
[2021-10-31 13:48] LABS: POTASSIUM 4.4 MMOL/L (3.6-5.0)
[2021-10-31 13:49] LABS: CALCIUM 9.2 MG/DL (8.5-10.1)
[2021-10-31 13:51] LABS: TOTAL PROTEIN 7.6 GM/DL (6.4-8.2)
[2021-10-31 13:52] LABS: BACTERIA,URINE FEW /HPF; BILIRUBIN,TOTAL 0.4 MG/DL (0.1-1.0); WBC,URINE 0-2 /HPF
[2021-10-31 13:53] LABS: ERYTHROCYTE SEDIMENTATION RATE 28 MM/HR (0-30); INR 0.9 (0.8-1.4); PROTHROMBIN TIME PATIENT 12.7 SEC (12.2-14.7)
[2021-10-31 13:54] LABS: CREATININE SERUM 0.82 MG/DL (0.60-1.30)
[2021-10-31 15:09] VITALS: BP 127/70
[~2021-11-05] VITALS: Ht 175.3 cm; Wt 121.0 kg
== END 2021-11-05 15:02 | disposition home or self-care (01) ==
LOC: PREOP 05:28
PROVIDERS: ATTEND Orthopaedic Surgery
DX: Z01.818 Encounter for other preprocedural examination (principal); M17.11 Unilateral primary osteoarthritis, right knee; Z11.2 Encounter for screening for other bacterial diseases; U07.1 COVID-19
CPT/HCPCS: 36415; 71046; 80053; 81000; 82308; 85025; 85610; 85652; 86850; 86900; 86901; 87081; 87635; 93005

== ENCOUNTER 2021-11-07 07:30 | Inpatient (IN) | payer MEDICARE, MEDICAID ==
--- NOTE | 2021-10-31 14:42 | HISTORY AND PHYSICAL ---
DATE OF SERVICE: DATE OF ADMISSION/DATE OF SURGERY: 11/07/2021. This will be for inpatient admission on 11/07/2021 for right total knee arthroplasty. The patient will require regular inpatient admission due to comorbidities, pain management and need for physical therapy. HISTORY OF PRESENT ILLNESS: The patient is a 60-year-old female who has undergone multiple right knee arthroscopies for chondromalacia as well as partial meniscectomies, who has had progressively worsening knee pain. She does have a history of lumbar spine surgery. An EMG was performed, which revealed no significant abnormalities. She has also tried injections and physical therapy without relief. Due to functional impairment and failure to improve with conservative measures, the patient has elected to proceed with right total knee arthroplasty. REVIEW OF SYSTEMS: No chest pain, no shortness of breath, no dysuria. PAST MEDICAL HISTORY: Diabetes, COPD, bipolar disorder, hypercholesterolemia, allergic rhinitis, cardiomegaly, obesity and asthma. PAST SURGICAL HISTORY: Left knee arthroscopy, left total knee arthroplasty, left shoulder arthroscopy, bilateral carpal and cubital tunnel releases, right knee arthroscopy, cholecystectomy and hysterectomy. FAMILY HISTORY: Significant for multiple sclerosis, COPD, diabetes and hypertension. PRIMARY CARE PROVIDER: Dr. Espino. MEDICATIONS: Ibuprofen, fluoxetine, Breo Ellipta, Lyrica, metformin, fluticasone and Protonix. ALLERGIES: METAL, PENICILLIN, DOXYCYCLINE, VITAMIN D, B12, and CONTRAST DYE. SOCIAL HISTORY: The patient drinks alcohol socially. She denies tobacco use since 2007. PHYSICAL EXAMINATION: GENERAL: The patient is well-developed, well-nourished, in no acute distress. HEENT: Normocephalic, atraumatic. Pupils are equal, round and reactive to light. Oropharynx is clear. NECK: Supple, with no lymphadenopathy. LUNGS: Clear to auscultation bilaterally. HEART: Regular rate and rhythm. ABDOMEN: Soft, nontender, nondistended. EXTREMITIES: The right knee demonstrates tenderness along her lateral joint line. She has pain laterally with Pat's. There is no varus or valgus laxity and negative pivot shift. A slight effusion is noted. There is no erythema or warmth. The patient ambulates with an antalgic gait. IMPRESSION: Right knee lateral and patellofemoral arthrosis, unresponsive to conservative measures. PLAN: Right total knee arthroplasty. The risks, benefits, options, ramifications and recovery have been discussed at length with the patient. She understands and wishes to proceed. Job ID: [id number] DocumentID: [id number] Dictated Date: 10/19/2021 08:50:27 Archivist Political History Date: 10/19/2021 09:06:26 Dictated By: KISHA BALDWIN MD
[~2021-11-07] VITALS: Ht 175.3 cm; Wt 120.0 kg
[~2021-11-07 07:30] MED LIST changes: +FLUC100T10 PO; -FLUC100T6 PO
[2021-11-28] MEDS ORDERED: PRD20T PO (15:36)
--- NOTE | 2021-12-05 16:55 | HISTORY AND PHYSICAL ---
DATE OF SERVICE: INPATIENT HISTORY AND PHYSICAL DATE OF ADMISSION: 12/12/2021. This will be for inpatient admission on 12/12/2021 for a right total knee arthroplasty. The patient will require regular inpatient admission due to comorbidities, pain management, and need for physical therapy. HISTORY OF PRESENT ILLNESS: The patient is a 60-year-old female with a longstanding progressive right knee pain. She has undergone treatment with injections as well as arthroscopy with only temporary relief of her symptoms. Findings at arthroscopy demonstrated diffuse grade IV changes in her medial and patellofemoral compartments. She has tried rest, activity modifications, anti-inflammatories, and therapy without relief. Due to functional impairment and failure to improve with conservative measures, the patient has elected to proceed with surgical intervention. REVIEW OF SYSTEMS: No chest pain, no shortness of breath, and no dysuria. PAST MEDICAL HISTORY: Diabetes, COPD, bipolar disorder, hypercholesterolemia, allergic rhinitis, cardiomegaly, obesity, and asthma. PAST SURGICAL HISTORY: Left knee arthroscopy, left total knee arthroplasty, left shoulder arthroscopy, bilateral carpal and cubital tunnel releases, right knee arthroscopy, cholecystectomy, and hysterectomy. FAMILY HISTORY: Multiple sclerosis, COPD, diabetes, and hypertension. PRIMARY CARE PROVIDER: Dr. Espino. MEDICATIONS: Ibuprofen, fluoxetine, Breo Ellipta, Lyrica, metformin, fluconazole, and Protonix. ALLERGIES: METAL, PENICILLIN, DOXYCYCLINE, VITAMIN B12, VITAMIN D, and CONTRAST DYE. SOCIAL HISTORY: The patient drinks alcohol socially. She is a former tobacco user, but none in the last 16 years. PHYSICAL EXAMINATION: GENERAL: The patient is well-developed, well-nourished, and in no acute distress. HEENT: Normocephalic and atraumatic. Pupils are equal, round, and reactive to light. Oropharynx is clear. NECK: Supple and no lymphadenopathy. LUNGS: Clear to auscultation bilaterally. HEART: Regular rate and rhythm. ABDOMEN: Soft, nontender, and nondistended. EXTREMITIES: The right knee demonstrates varus alignment. She is tender along the medial femoral epicondyle. She has pain medially with Pat's. She has patellofemoral crepitus and pain with patellar loading. Range of motion is 0/2/120. IMPRESSION: Right knee osteoarthritis, unresponsive to conservative measures. PLAN: Right total knee arthroplasty. The risks, benefits, options, ramifications, and recovery have been discussed at length with the patient. She understands and wishes to proceed. Job ID: [id number] DocumentID: [id number] Dictated Date: 11/20/2021 13:25:45 Ostomy Care Nurse Date: 11/20/2021 13:58:00 Dictated By: KISHA BALDWIN MD
[2021-12-12] VITALS (10 sets, daily range): BP systolic 108–177; BP diastolic 59–112
[2021-12-12] MEDS ORDERED: CEFUROXIME INJECTION 1,500 MG in NS (IVPB) 50 ML IV ONE (06:15)
[2021-12-12] MEDS: LACTATED RINGERS 1,000 ML IV PRN ×2 (06:36→08:13)
[2021-12-12] MEDS ORDERED: BUPIVACAINE 0.25% 10 ML (SENSORCAINE) VIAL ONE (06:42)
[2021-12-12] MEDS ORDERED: ROPIVACAINE 5MG/ML 30ML VIAL ONE (06:42)
[2021-12-12] MEDS ORDERED: MIDAZOLAM 2 MG/2 ML (VERSED) VIAL ONE ×2 (06:42→07:09)
[2021-12-12] MEDS ORDERED: BUPIVACAINE 0.5% 30 ML (SENSORCAINE) VIAL ONE (07:11)
[2021-12-12] MEDS ORDERED: diphenhydrAMINE 50 MG/ML INJ (BENADRYL) IVP PRN (07:15)
[2021-12-12] MEDS ORDERED: morphine PCA 100 MG/100 ML BAG IV PRN (07:15)
[2021-12-12] MEDS ORDERED: NALOXONE 0.4 MG/ML 1 ML (NARCAN) VIAL IV PRN (07:15)
[2021-12-12] MEDS ORDERED: ONDANSETRON 4 MG/2 ML (SDV) Z0FRAN IVP PRN (07:15)
[2021-12-12] MEDS ORDERED: CLINDAMYCIN 600 MG/50 ML IVPB 50 ML IV ONE ×2 (07:30→07:32)
--- NOTE | 2021-12-12 07:36 | Progress Note-Pre Operative ---
Pre-Operative Progress Note H&P Reviewed The H&P was reviewed, patient examined and no changes noted. Date Seen by Provider: Dec 12, 2021 Time Seen by Provider: 07:25 Date H&P Reviewed: Dec 12, 2021 Time H&P Reviewed: 07:11 Pre-Operative Diagnosis: right knee primary osteoarthritis KISHA BALDWIN MD Dec 12, 2021 07:36
--- NOTE | 2021-12-12 07:37 | Progress Note-Post Operative ---
Post-Operative Progess Note Surgeon (s)/Locate Technician (s) Surgeon KISHA BALDWIN MD Locate Technician: Boy Shepherd Pre-Operative Diagnosis right knee primary osteoarthritis Post-Operative Diagnosis right knee primary osteoarthritis Procedure & Operative Findings Date of Procedure 12/12/21 Procedure Performed/Findings right total knee arthroplasty Anesthesia Type GETA Estimated Blood Loss Estimated blood loss (mL): minimal Specimens/Packing Specimens Removed none Packing: none KISHA BALDWIN MD Dec 12, 2021 07:37
--- NOTE | 2021-12-12 07:39 | Discharge Inst-Skilled Nursing ---
Discharge Inst-Skilled NF Reconcile Patient Problems Problems Reviewed?: Yes Patient Instructions Patient Problems: right total knee arthoplasty Consult/Follow Up/Orders Follow Up Appt.: three weeks Skilled NF Admit to: Via [facility] Certification ([facility]) I certify that [facility] services are required to be given on an inpatient basis because of the above named patient's need for prison care on a continuing basis for the conditions(s) for which he/she was receiving inpatient hospital services prior to his/her transfer to the [facility]. [facility] Facility Order: Physical Therapy-Evaluate & Treat Oxygen Delivery Method: Room Air Discharge Diet: Regular Diet Daily Activity as Tolerated: Yes Resuscitation Status: Full Code New & Resume Previous Orders Other Instructions DC right knee carlos and apply steri strips 12/26/21 Kisha Baldwin Dec 12, 2021 07:38 KISHA BALDWIN MD Dec 12, 2021 07:39
[2021-12-12] MEDS ORDERED: fentaNYL INJ 100 MCG/2 ML AMP ONE (07:53)
[2021-12-12] MEDS ORDERED: INTRA-ARTICULAR IU ONE ×5 (08:00)
[2021-12-12] MEDS ORDERED: TRANEXAMIC ACID 100 MG/ML 10 ML INJECTION ONE (08:03)
[2021-12-12] MEDS ORDERED: ONDANSETRON 4 MG/2 ML (SDV) Z0FRAN ONE (08:24)
[2021-12-12] MEDS ORDERED: PROPOFOL INJECTION 50 ML IV ONE (08:24)
[2021-12-12] MEDS ORDERED: LIDOCAINE PF 2% 5 ML (XYLOCAINE) VIAL ONE (08:35)
[2021-12-12] MEDS ORDERED: HYDROmorphone 2 MG/ML VIAL (DILAUDID) ONE (09:20)
[2021-12-12] MEDS ORDERED: SEVOFLURANE (ULTANE) 15 ML INHAL SOLN ONE (09:24)
[2021-12-12] MEDS ORDERED: morphine INJ 10 MG/ML 1ML (SYR OR VIAL) IVP ONE (09:30)
[2021-12-12] MEDS ORDERED: HYDROmorphone 2 MG/ML VIAL (DILAUDID) IV ONE (09:30)
--- NOTE | 2021-12-12 10:06 | Diagnostic Imaging Report ---
INDICATION: Total knee arthroplasty. EXAMINATION: Right knee 12/12/2021 FINDINGS: 2 views of the knee demonstrate total knee arthroplasty which appears intact. No evidence for loosening or fracture. There are anterior skin carlos with subcutaneous air and soft tissue swelling consistent with recent surgery. An overlying brace is noted. IMPRESSION: 1. Expected postoperative changes. Dictated by: Dictated on workstation # [id number]
[2021-12-12] MEDS: ONDANSETRON 4 MG/2 ML (SDV) Z0FRAN IVP PRN (10:30)
[2021-12-12] MEDS: SENNA W/DOCUSATE (SENOKOT S) TABLET PO SCH ×2 (10:43→20:25)
[2021-12-12] MEDS: ASPIRIN E.C. 81 MG (ECOTRIN) TAB PO SCH (10:43)
[2021-12-12] MEDS: NS IV 1000 ML 1,000 ML IV SCH ×2 (10:43→16:12)
[2021-12-12] MEDS ORDERED: PROMETHAZINE INJ 25 MG/ML (PHENERGAN) AMP IVP PRN (10:45)
--- NOTE | 2021-12-12 11:10 | Physical Therapy Evaluation ---
PT Evaluation-General Medical Diagnosis Admission Date Dec 12, 2021 at 06:00 Medical Diagnosis: right TKA Onset Date: Dec 12, 2021 Therapy Diagnosis Therapy Diagnosis: impaired mobility, strength, ROM Height/Weight Height (Feet): 5 Height (Inches): 9.00 Weight (Pounds): 288 Weight (Ounces): 0.0 Referral Physician: Joao Reason for Referral: Evaluation/Treatment Medical History Pertinent Medical History: COPD, DM Additional Medical History PAST MEDICAL HISTORY: Diabetes, COPD, bipolar disorder, hypercholesterolemia, allergic rhinitis, cardiomegaly, obesity, and asthma. PAST SURGICAL HISTORY: Left knee arthroscopy, left total knee arthroplasty, left shoulder arthroscopy, bilateral carpal and cubital tunnel releases, right knee arthroscopy, cholecystectomy, and hysterectomy. Reviewed History: Yes Social History Home: Apartment Current Living Status: Alone Entry Into Home: Elevator Prior Prior Level of Function SCALE: Activities may be completed with or without assistive devices. 0-Hbioaslwpl-afshsbu completes the activity by him/herself with no assistance from a helper. 5-Set-up or Clean-up Assistance-helper sets up or cleans up; patient completes activity. Andes assists only prior to or following the activity. 4-Supervision or Touching Assistance-helper provides verbal cues and/or touchi ng/steadying and/or contact guard assistance as patient completes activity. Assistance may be provided throughout the activity or intermittently. 3-Partial/Moderate Assistance-helper does LESS THAN HALF the effort. Andes lifts, holds or supports trunk or limbs, but provides less than half the effort. 2-Substantial/Maximal Assistance-helper does MORE THAN HALF the effort. Andes lifts or holds trunk or limbs and provides more than half the effort. 8-Jojyhkhzl-zlogho does ALL the effort. Patient does none of the effort to complete the activity. Or, the assistance of 2 or more helpers is required for the patient to complete the activity. If activity was not attempted, code reason: 7-Patient Refused. 9-Not Applicable-not attempted and the patient did not perform the activity before the current illness, exacerbation or injury. 10-Not Attempted due to Environmental Limitations-(lack of equipment, weather restraints, etc.). 88-Not Attempted due to Medical Conditions or Safety Concerns. Bed Mobility: 6 Transfers (B,C,W/C): 6 Gait: 6 Stairs: 6 Indoor Mobility (Ambulation): Independent Stairs: Independent PT Evaluation-Current Subjective Patient in restroom pre tx, apparently she got up from the bed with nursing right after getting to her room from surgery. Patient agrees to PT, has 9/10 pain in right knee. Patient is pretty groggy, nauseated, and slightly confused. Pt/Family Goals none stated Objective Patient Orientation: Person, Confused, Place, Situation Attachments: Polar Pack ROM/Strength ROM Lower Extremities right knee extension +15 degrees, flexion 50 degrees Sensory Vision: Functional Hearing: Functional Sensation Right Lower Extremit: Intact Sensation Left Lower Extremity: Intact Transfers Roll Left to Right (QC): 4 Sit to Lying (QC): 4 Sit to Stand (QC): 4 Gait Does the Patient Walk?: Yes Mode of Locomotion: Walk Anticipated Mode of Locomotion: Walk Walk 10 feet (QC): 4 Distance: 10' Gait Assistive Device: FWW Comments/Gait Description slow, antalgic ambulation, poor step through and foot clearance Balance Sitting Static: Normal Sitting Dynamic: Normal Standing Static: Fair Standing Dynamic: Poor Treatment RLE total knee protocol x10 (AP, QS, HS, SAQ, SLR) Assessment/Needs Patient in bed post tx with nurse call, phone, tray, all needs met. Patient has impaired mobility, strength, ROM. Patient is very impulsive and groggy, she was just CGA for transfers and ambulation but she is very unsteady. Rehab Potential: Fair PT Custodial Goals Custodial Goals PT Custodial Goals Time Frame: Dec 19, 2021 Roll Left & Right (QC): 6 Sit to Lying (QC): 6 Lying-Sitting on Side/Bed(QC): 6 Sit to Stand (QC): 6 Chair/Fzx-mt-Bpquh Xfer(QC): 6 Walk 10 feet (QC): 6 Walk 50ft with 2 Turns (QC): 6 PT Plan Problem List Problem List: Activity Tolerance, Functional Strength, Safety, Balance, Gait, Transfer, Bed Mobility, ROM Treatment/Plan Treatment Plan: Continue Plan of Care Treatment Plan: Bed Mobility, Education, Functional Activity Main, Functional Strength, Gait, Safety, Therapeutic Exercise, Transfers Treatment Duration: Dec 19, 2021 Frequency: 11 times per week Estimated Hrs Per Day: .25 hour per day Patient and/or Family Agrees t: Yes Safety Risks/Education Patient Education: Gait Training, Transfer Techniques, Correct Positioning, Safety Issues Teaching Recipient: Patient Teaching Methods: Demonstration, Discussion Response to Teaching: Reinforcement Needed Discharge Recommendations Plan Patient will perform bed mobility and transfer training, balance and endurance training, functional strengthening, stair training, gait training, and education, to improve functional mobility and independence at home. Therapy Discharge Recommendati: Home & Family, Post Acute PT Time/GCodes Time In: 1038 Time Out: 1056 Total Billed Treatment Time: 18 Total Billed Treatment 1 visit EVL 18' OLVIN NICOLAS PT Dec 12, 2021 11:10
--- NOTE | 2021-12-12 12:20 | Progress Note ---
Standard Progress Note Progress Notes/Assess & Plan Date Seen by a Provider: Dec 12, 2021 Time Seen by a Provider: 09:20 Progress/Assessment & Plan post op check no complaints radiographs--HW well positioned without fracture RLE--intact sensation to light touch throughout intact DF and PF of toes and ankle 2 plus DP pulse with bisk cap refill s/p RTKA mobilize as able KISHA BALDWIN MD Dec 12, 2021 12:20
--- NOTE | 2021-12-12 13:39 | Consultation ---
HPI History of Present Illness: 61 yo F here for R knee replacement. Asked to see patient for consult on chronic medical conditions. Patient has not concerns this AM after surgery. 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 Patient is requesting NH placement for SNF. Source: patient Exam Limitations: no limitations Date seen by provider: Dec 12, 2021 Time Seen by Provider: 11:15 Attending Physician Zion Meredith MD PCP Nicky Espino MD Consult Date of Admission Dec 12, 2021 at 06:00 Home Medications Home Medications Reviewed patient Home Medication Reconciliation performed by pharmacy medication reconciliations pathology lab technician and/or nursing. Patients Allergies have been reviewed. Allergies Coded Allergies: nickel (Verified Allergy, Intermediate, RASH, 10/31/21) doxycycline (Verified Allergy, Mild, HIVES, 10/31/21) Iodinated Contrast Media (Verified Allergy, Unknown, 10/31/21) cobalt (Verified Allergy, Unknown, Hives, 10/31/21) penicillin (Verified Allergy, Unknown, HAS RECEIVED ROCEPHIN, 10/31/21) rash Uncoded Allergies: hexachloride (Allergy, Unknown, Hives, 06/24/19) FYW-Ubkijs-Mjnjxf Hx Patient Social History Smoking Status: Former Smoker Former smoker/When Quit: Apr 09, 2010 2nd Hand Smoke Exposure: No Recent Hopitalizations: No (APRIL 2021) Alcohol Use?: No Tobacco type used: Cigarettes Have you traveled recently?: No Immunizations Up To Date Tetanus Booster (TDap): Unknown Influenza Vaccine Up-to-Date: Yes; Up-to-Date First/Initial COVID19 Vaccinat: NOT VACCINATED Second COVID19 Vaccination Abdelrahman: NOT VACCINATED Third COVID19 Vaccination Date: NOT VACCINATED Past Medical History NIDDM COPD ENRRIQUE Obesity BMI 41 Family Medical History Family History: Arthritis 19 MOTHER, Onset:Unknown Asthma 19 FATHER, Onset:Unknown Cataracts 19 MOTHER, Onset:Unknown Diabetes mellitus 19 MOTHER, Onset:Unknown FH: COPD (chronic obstructive pulmonary disease) 19 FATHER, Onset:Unknown Hypercholesterolemia 19 MOTHER MS (multiple sclerosis) G8 SISTER, Onset:Unknown Review of Systems ([facility]) Constitutional: no symptoms reported; No chills, No fever, No malaise, No weakness EENTM: no symptoms reported; No mouth pain, No nose congestion Respiratory: no symptoms reported; No cough, No dyspnea on exertion, No short of breath Cardiovascular: no symptoms reported; No chest pain, No palpitations Gastrointestinal: no symptoms reported; No abdominal pain, No constipation, No diarrhea, No nausea, No vomiting Genitourinary: no symptoms reported; No dysuria, No frequency, No hematuria Musculoskeletal: back pain (chronic), joint pain Skin: no symptoms reported Psychiatric/Neurological: No Symptoms Reported Reviewed Test Results Reviewed Test Results Lab Laboratory Tests Test 12/12/21 06:27 12/12/21 11:59 Range/Units Glucometer 164 H 174 H 70-110 MG/DL Physical Exam-([facility]) Physical Exam Vital Signs VS - Last 72 Hours, by Label 12/12/21 12/12/21 12/12/21 12/12/21 06:30 06:30 09:07 09:07 Temp 35.8 37.3 Pulse 75 Resp 18 16 B/P (MAP) 127/78 (94) 167/100 (122) Pulse Ox 94 96 O2 Delivery Room Air Room Air OxyMask OxyMask O2 Flow Rate 8 8 12/12/21 12/12/21 12/12/21 12/12/21 09:15 09:20 09:25 09:35 Resp 16 16 B/P (MAP) 144/84 (104) 138/77 (97) Pulse Ox 97 97 O2 Delivery OxyMask OxyMask OxyMask OxyMask O2 Flow Rate 8 8 8 8 12/12/21 12/12/21 12/12/21 12/12/21 09:35 09:45 09:50 09:55 Temp 36.6 Resp 12 16 14 B/P (MAP) 143/102 (116) 132/112 (119) 115/92 (100) Pulse Ox 96 96 93 O2 Delivery OxyMask OxyMask High Flow N/C High Flow N/C O2 Flow Rate 8 8 3 3 12/12/21 12/12/21 10:05 11:59 Temp 35.8 Pulse 97 Resp 20 B/P (MAP) 177/83 (114) Pulse Ox 92 O2 Delivery High Flow N/C Nasal Cannula O2 Flow Rate 3 3.00 Capillary Refill : General Appearance: WD/WN, obese HEENT: PERRL/EOMI Neck: non-tender, full range of motion, supple Respiratory: chest non-tender, lungs clear, normal breath sounds, no respiratory distress, no accessory muscle use Cardiovascular: normal peripheral pulses, regular rate, rhythm, no murmur Gastrointestinal: normal bowel sounds, soft Back: no CVA tenderness, no vertebral tenderness Extremities: normal capillary refill, other Neurologic/Psychiatric: office machine servicer II-XII nml as tested, alert, normal mood/affect, oriented x 3 Skin: normal color, warm/dry Lymphatic: no adenopathy Assessment/Plan Assessment/Plan (1) Osteoarthritis of right knee Status: Chronic Assessment & Plan: - S/p RTK by Dr Meredith, Pain control per surgeon Qualifiers: Qualified Codes: M17.11 - Unilateral primary osteoarthritis, right knee (2) COPD (chronic obstructive pulmonary disease) Status: Chronic Assessment & Plan: - Well controlled, at baseline, no home oxygen requirement Qualifiers: Qualified Codes: J41.8 - Mixed simple and mucopurulent chronic bronchitis (3) 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 Status: Chronic Assessment & Plan: - Continue CPAP (4) Non-insulin dependent type 2 diabetes mellitus Status: Chronic Assessment & Plan: - Well controlled on metformin, last A1c in office was in range NICKY ESPINO MD Dec 12, 2021 13:39
--- NOTE | 2021-12-12 13:43 | Physical Therapy Daily Note ---
PT Daily Note-Current Subjective Pt. in bed, still a little confused post surgery, falls asleep during Rx. c/o pain at 7/10 when awake " right in my knee cap" Pain Numeric Pain Scale: 7 Location: Right Location Body Site: Knee Pain Description: Stabbing Appearance eyes closed, falls asleep during Rx Mental Status Patient Orientation: Confused Attachments: SCD's, Polar Pack, IV Transfers SCALE: Activities may be completed with or without assistive devices. 7-Hycjwguqad-quaiorb completes the activity by him/herself with no assistance from a helper. 5-Set-up or Clean-up Assistance-helper sets up or cleans up; patient completes activity. Hobbs assists only prior to or following the activity. 4-Supervision or Touching Assistance-helper provides verbal cues and/or touching/steadying and/or contact guard assistance as patient completes activity. Assistance may be provided throughout the activity or intermittently. 3-Partial/Moderate Assistance-helper does LESS THAN HALF the effort. Hobbs lifts, holds or supports trunk or limbs, but provides less than half the effort. 2-Substantial/Maximal Assistance-helper does MORE THAN HALF the effort. Hobbs lifts or holds trunk or limbs and provides more than half the effort. 3-Ynsnnxaxn-gltqrs does ALL the effort. Patient does none of the effort to complete the activity. Or, the assistance of 2 or more helpers is required for the patient to complete the activity. If activity was not attempted, code reason: 7-Patient Refused. 9-Not Applicable-not attempted and the patient did not perform the activity before the current illness, exacerbation or injury. 10-Not Attempted due to Environmental Limitations-(lack of equipment, weather restraints, etc.). 88-Not Attempted due to Medical Conditions or Safety Concerns. rolling left and right mod to min assist Exercises Supine Ex: Ankle pumps, Quad Set, Rolling (assisted), Heel Slides (assisted), Short Arc Quads (assisted), Straight leg raise (asssited x 5) Supine Reps: 12 Treatments pt. very lethargic , mostly nonsensical when she speaks, declines getting up to stand or walk Assessment Current Status: Good Progress 0 to 65 deg AAROM R knee PT Kiln Car Unloader Goals Kiln Car Unloader Goals PT Kiln Car Unloader Goals Time Frame: Dec 19, 2021 Roll Left & Right (QC): 6 Sit to Lying (QC): 6 Lying-Sitting on Side/Bed(QC): 6 Sit to Stand (QC): 6 Chair/Rkl-wq-Zpvda Xfer(QC): 6 Walk 10 feet (QC): 6 Walk 50ft with 2 Turns (QC): 6 PT Plan Treatment/Plan Treatment Plan: Continue Plan of Care Treatment Plan: Bed Mobility, Education, Functional Activity Main, Functional Strength, Gait, Safety, Therapeutic Exercise, Transfers Treatment Duration: Dec 19, 2021 Frequency: 11 times per week Estimated Hrs Per Day: .25 hour per day Patient and/or Family Agrees t: Yes Safety Risks/Education Patient Education: Correct Positioning, Disease Process, Safety Issues Teaching Recipient: Patient Teaching Methods: Demonstration, Discussion Response to Teaching: Verbalize Understanding, Return Demonstration, Reinforcement Needed Time/GCodes Time In: 1320 Time Out: 1340 Total Billed Treatment Time: 20 Total Billed Treatment 1,EX20m RONA REDDY APPLICATIONS ANALYST Dec 12, 2021 13:43
--- NOTE | 2021-12-12 15:09 | OPERATIVE REPORT ---
DATE OF SERVICE: 12/12/2021 PREOPERATIVE DIAGNOSIS: Right knee primary osteoarthritis. POSTOPERATIVE DIAGNOSIS: Right knee primary osteoarthritis. PROCEDURE PERFORMED: Right total knee arthroplasty. SURGEON: Zion Baldwin MD PLASTIC TOOL MAKER: Boy Shepherd, who assisted throughout the procedure and closed the incision. ANESTHESIA: General endotracheal by Dr. Dia. TOURNIQUET TIME: Approximately 55 minutes at 300 mmHg. ESTIMATED BLOOD LOSS: Minimal. DRAINS: None. COMPLICATIONS: None. POSTOPERATIVE PLAN: Routine total knee arthroplasty protocol. The patient was transferred to the recovery room awake and in stable condition. STATEMENT OF MEDICAL NECESSITY: The patient is a 60-year-old female with a longstanding progressive right knee pain. She had undergone treatment with arthroscopy, which revealed grade IV chondral loss in her medial compartment as well as her patellofemoral compartment. She tried rest, activity modifications, physical therapy, and injections without relief. Due to functional impairment and failure to improve with conservative measures, the patient elected to proceed with surgical intervention. DESCRIPTION OF PROCEDURE: After the risks and benefits of the procedure were discussed and questions were answered, an informed consent was signed and placed on chart and the operative site was confirmed in the preoperative holding area initialed by the surgeon. The patient was then transferred to the operating room and after adequate levels of general endotracheal anesthetic were obtained, a timeout was called, confirming the operative site. The right lower extremity was prepped and draped in the usual sterile fashion with the leg elevated and the knee flexed. Tourniquet was inflated to 300 mmHg. Standard anterior approach was utilized. Hemostasis was obtained with cautery. Medial parapatellar arthrotomy was performed leaving 1 cm cuff on the patella for later reattachment. A portion of the fat pad was resected. A subperiosteal release was performed in the proximal medial tibia being careful to stay on the bony surface. Intramedullary guide was passed into the femoral canal. The distal cutting block was placed. Distal cut was made. The femur was sized to a size 5, the 5 cutting block was placed parallel to the epicondylar axis and cuts were made from posterior to anterior. A subperiosteal release was then carefully performed on the posterior distal femur, being careful to stay on the bony surface. Intramedullary guide was then passed into the tibial canal. The drop sanjuanita transected the intermalleolar axis and the cut was made. The #5 baseplate provided excellent coverage. This was pinned into position. Again, the drop sanjuanita transected the intermalleolar axis. This was prepared with the drill and keel punch. The femoral trial was placed and trochlear cut was made. The 10 mm insert was placed and the patella was prepared by resecting 10 mm off the undersurface using the freehand technique. The peg guide was placed and the peg holes were drilled. The 32 trial button was placed, full extension was easily obtained, 120 degrees of flexion with gravity was easily obtained. The patella tracked well. There was no anterior/posterior or medial/lateral laxity in flexion or extension. The trials were removed. The joint was irrigated with pulse lavage. A periarticular block was placed in the posterior capsule, medial and lateral retinaculum, extensor mechanism, and subcutaneous tissues. The bone ends were irrigated and dried. The tibial baseplate was cemented into position. Excessive cement was removed, the superior surface was irrigated and dried and the 10 mm polyethylene insert was placed. Distal femur was irrigated and dried and the femoral prosthesis was cemented into position. Excessive cement was removed. The knee was brought out into full extension until cement had cured. The undersurface of the patella was irrigated and dried. The patellar button was cemented into position. Once the cement had cured, the knee was taken through range of motion. Full extension was easily obtained, 120 degrees of flexion with gravity was easily obtained. There was no anterior/posterior or medial/lateral laxity in flexion or extension. The patella tracked well. The joint was further irrigated with pulse lavage. Arthrotomy was closed with #2 Tevdek in fzzoav-qn-gmman interrupted fashion. The knee was flexed. The patella tracked well. There was no undue tension noted at the repair site. The subcutaneous tissues were irrigated using a total of 6 liters throughout the procedure. A 0 Vicryl was used for deep subcutaneous layer, 2-0 Vicryl for the superficial subcutaneous layer, carlos were used on the skin. A soft dressing was applied. The tourniquet was deflated. The patient was transferred to the recovery room awake and in a stable condition. MATERIALS: Microport cemented size 5 femur with cemented size 5 tibia with a 10 mm insert and cemented size 32 patellar button. These were the metal allergy components. Job ID: [id number] DocumentID: [id number] Dictated Date: 12/12/2021 09:05:55 Gameplay Programmer Date: 12/12/2021 15:08:32 Dictated By: ZION BALDWIN MD
[2021-12-12] MEDS: CEFUROXIME INJECTION 750 MG in NS (IVPB) 50 ML IV SCH ×2 (16:08→23:57)
[2021-12-13] VITALS: BP 120/60
[2021-12-13 03:50] VITALS: BP 134/70
[2021-12-13] MEDS: oxyCODONE/APAP 5/325MG (PERCOCET 5) TABLET PO PRN ×5 (04:01→18:25)
[2021-12-13] MEDS: MULTIVIT W/MINERALS TAB (THERAGRAN M) PO SCH ×2 (05:41→07:57)
[2021-12-13 05:47] LABS: HEMOGLOBIN 10.3 g/dL (11.5-16.0)
--- NOTE | 2021-12-13 07:55 | Anesthesia-General Post-Op ---
General Patient Condition Mental Status/LOC: Same as Preop Cardiovascular: Satisfactory Nausea/Vomiting: Absent Respiratory: Satisfactory Pain: Controlled Complications: Absent Post Op Complications Complications None Follow Up Care/Instructions Patient Instructions None needed. Anesthesia/Patient Condition Patient Condition Patient is doing well, no complaints, stable vital signs, no apparent adverse anesthesia problems. No complications reported per nursing. BRIE ENGLISH CRNA Dec 13, 2021 07:55
[2021-12-13] MEDS: ENOXAPARIN INJECTION 30 MG/0.3 ML SYR SC SCH ×2 (07:57→19:42)
[2021-12-13] MEDS: SENNA W/DOCUSATE (SENOKOT S) TABLET PO SCH ×2 (07:57→19:42)
[2021-12-13] MEDS: ASPIRIN E.C. 81 MG (ECOTRIN) TAB PO SCH (07:57)
[2021-12-13 08:01] VITALS: BP 128/63
--- NOTE | 2021-12-13 08:08 | Progress Note ---
Standard Progress Note Progress Notes/Assess & Plan Date Seen by a Provider: Dec 13, 2021 Time Seen by a Provider: 08:07 Progress/Assessment & Plan post op check no complaints radiographs--HW well positioned without fracture RLE--intact sensation to light touch throughout intact DF and PF of toes and ankle 2 plus DP pulse with bisk cap refill s/p RTKA mobilize as able Final Diagnosis no complaints Vital Signs Date Time Temp Pulse Resp B/P (MAP) Pulse Ox O2 Delivery O2 Flow Rate FiO2 12/13/21 08:01 36.0 102 22 128/63 (84) 90 Room Air 12/13/21 03:50 36.8 102 14 134/70 (91) 92 Nasal Cannula 2.00 12/13/21 00:00 37.7 94 14 120/60 (80) 92 Room Air 12/12/21 20:20 Nasal Cannula 2.00 12/12/21 19:42 37.2 86 20 108/73 (85) 92 Room Air 12/12/21 15:46 36.6 86 20 113/59 (77) 92 Nasal Cannula 3.00 12/12/21 14:33 Room Air 12/12/21 11:59 35.8 97 20 177/83 (114) 92 Nasal Cannula 3.00 12/12/21 10:05 High Flow N/C 3 12/12/21 09:55 36.6 14 115/92 (100) 93 High Flow N/C 3 12/12/21 09:50 High Flow N/C 3 12/12/21 09:45 16 132/112 (119) 96 OxyMask 8 12/12/21 09:35 12 143/102 (116) 96 OxyMask 8 12/12/21 09:35 OxyMask 8 12/12/21 09:25 16 138/77 (97) 97 OxyMask 8 12/12/21 09:20 OxyMask 8 12/12/21 09:15 16 144/84 (104) 97 OxyMask 8 12/12/21 09:07 OxyMask 8 12/12/21 09:07 37.3 16 167/100 (122) 96 OxyMask 8 I & O 12/13/21 07:00 Intake Total 3100 ml Output Total 400 ml Balance 2700 ml Laboratory Tests Test 12/12/21 11:59 12/13/21 05:26 Range/Units Glucometer 174 H 70-110 MG/DL Hemoglobin 10.3 L 11.5-16.0 g/dL Hematocrit 33 L 35-52 % RLE--pt ambulating dressing intact s/p RTKA PT/OT [place] tomorrow? KISHA BALDWIN MD Dec 13, 2021 08:08
--- NOTE | 2021-12-13 09:43 | Physical Therapy Daily Note ---
PT Daily Note-Current Subjective Patient reluctantly agrees to PT. Pain Numeric Pain Scale: 10-Worst Possible Pain Location: Right Location Body Site: Knee Pain Description: Acute Mental Status Patient Orientation: Normal For Age Attachments: IV Transfers SCALE: Activities may be completed with or without assistive devices. 4-Cpnmfuajpw-rbvallg completes the activity by him/herself with no assistance from a helper. 5-Set-up or Clean-up Assistance-helper sets up or cleans up; patient completes activity. [place] assists only prior to or following the activity. 4-Supervision or Touching Assistance-helper provides verbal cues and/or touching /steadying and/or contact guard assistance as patient completes activity. Assistance may be provided throughout the activity or intermittently. 3-Partial/Moderate Assistance-helper does LESS THAN HALF the effort. [place] lifts, holds or supports trunk or limbs, but provides less than half the effort. 2-Substantial/Maximal Assistance-helper does MORE THAN HALF the effort. [place] lifts or holds trunk or limbs and provides more than half the effort. 7-Jnotrcqdh-ifsnbf does ALL the effort. Patient does none of the effort to complete the activity. Or, the assistance of 2 or more helpers is required for the patient to complete the activity. If activity was not attempted, code reason: 7-Patient Refused. 9-Not Applicable-not attempted and the patient did not perform the activity before the current illness, exacerbation or injury. 10-Not Attempted due to Environmental Limitations-(lack of equipment, weather restraints, etc.). 88-Not Attempted due to Medical Conditions or Safety Concerns. Sit to Stand (QC): 3 Chair/Nol-rm-Etsgz Xfer(QC): 3 Toilet Transfer (QC): 3 Gait Training Distance: 100' Walk 10 feet (QC): 3 Walk 50 ft with 2 Turns(QC): 3 Gait Assistive Device: FWW slow, antalgic, step to functional gait sequence Exercises Supine Ex: Ankle pumps, Quad Set Supine Reps: 12 (in recliner) Seated Therapy Exercises: Long arc quads Seated Reps: 15 (much encouragement to complete exercises) Assessment Patient tolerated treatment well and is up in recliner with needs met. Patient appears to self limit due to pain and is demanding to go to [place] for continued care. PT Personnel Interviewer Goals Personnel Interviewer Goals PT Personnel Interviewer Goals Time Frame: Dec 19, 2021 Roll Left & Right (QC): 6 Sit to Lying (QC): 6 Lying-Sitting on Side/Bed(QC): 6 Sit to Stand (QC): 6 Chair/Lmn-bc-Bbhac Xfer(QC): 6 Walk 10 feet (QC): 6 Walk 50ft with 2 Turns (QC): 6 PT Plan Treatment/Plan Treatment Plan: Continue Plan of Care Treatment Plan: Bed Mobility, Education, Functional Activity Main, Functional Strength, Gait, Safety, Therapeutic Exercise, Transfers Treatment Duration: Dec 19, 2021 Frequency: 11 times per week Estimated Hrs Per Day: .25 hour per day Patient and/or Family Agrees t: Yes Time/GCodes Time In: 725 Time Out: 804 Total Billed Treatment Time: 29 Total Billed Treatment 1 visit EX 13 min GT 16 min JIMMY ANNE PT Dec 13, 2021 09:43
--- NOTE | 2021-12-13 11:22 | Occupational Therapy Eval ---
OT Evaluation-General/PLF Medical Diagnosis Admission Date Dec 12, 2021 at 06:00 Medical Diagnosis: right TKA Onset Date: Dec 12, 2021 Therapy Diagnosis Therapy Diagnosis: decreased ADL status Height/Weight Height (Feet): 5 Height (Inches): 9.00 Weight (Pounds): 288 Weight (Ounces): 0.0 Referral Physician: Joao Referral Reason: Evaluation/Treatment Medical History Pertinent Medical History: COPD, DM Additional Medical History DM, COPD, Bipolar, Hypercholesterolemia, allergic rhinitis, cardiomegaly, obesity, asthma, L TKA, B/L carpal tunnel Current History s/p elective R TKA Social History Home: Apartment Current Living Status: Alone Entry Into Home: Elevator ADL-Prior Level of Function SCALE: Activities may be completed with or without assistive devices. 3-Vzbsvfppve-hpujbve completes the activity by him/herself with no assistance from a helper. 5-Set-up or Clean-up Assistance-helper sets up or cleans up; patient completes activity. [place] assists only prior to or following the activity. 4-Supervision or Touching Assistance-helper provides verbal cues and/or touching/steadying and/or contact guard assistance as patient completes activity. Assistance may be provided throughout the activity or intermittently. 3-Partial/Moderate Assistance-helper does LESS THAN HALF the effort. [place] lifts, holds or supports trunk or limbs, but provides less than half the effort. 2-Substantial/Maximal Assistance-helper does MORE THAN HALF the effort. [place] lifts or holds trunk or limbs and provides more than half the effort. 4-Bnmjkjcnq-wuiprh does ALL the effort. Patient does none of the effort to complete the activity. Or, the assistance of 2 or more helpers is required for the patient to complete the activity. If activity was not attempted, code reason: 7-Patient Refused. 9-Not Applicable-not attempted and the patient did not perform the activity before the current illness, exacerbation or injury. 10-Not Attempted due to Environmental Limitations-(lack of equipment, weather restraints, etc.). 88-Not Attempted due to Medical Conditions or Safety Concerns. ADL PLOF Comments Pt reports IND with ADLs and functional mobility at PLOF, she indicates she was able to take care of herself, as she doesn't have anyone available to help her. Self Care: Independent Functional Cognition: Independent DME/Equipment: Tub/Shower OT Current Status Subjective Pt in bed, required moderate encouragement to participate in OT evaluation. Pt indicates she has no one to take care of her at home, so she insists she needs a NH placement. OT attempted to educate pt on therapy benefits in order to return home as independently as possible, but pt did not appear to listen. Mental Status/Objective Patient Orientation: Person, Place, Situation Attachments: IV Current Upper Extremity ROM WFL Upper Extremity Strength grossly 3+/5 BUEs. Unable to formally assess as pt requests to return to bed. ADL-Treatment Eating (QC): 6 (Per pt report.) Oral Hygiene (QC): 5 (per clinical judgment.) On/Off Footwear (QC): 3 (Mod A. Pt able to doff/don L gripper sock with encouragement, pt would not attempt R.) Other Treatments Pt laying in bed, reluctant to participate with OT. OT educated pt on purpose and benefits of therapy, pt kept talking over therapist and didn't appear to listen. Pt reports she doesn't have any assistance at home and she will not be able to take care of herself at discharge, thus she needs to go to the NH. OT again attempted to provide education on OT focusing on improving independence with self care tasks. Pt agreeable to sit EOB with moderate encouragement, required CGA supine to sit EOB. Pt doff/donned L gripper socks, would not attempt R. Pt requests to lay back down, refusing further activity and refusing OOB activities. Pt able to transfer supine, OT encouraged pt to complete as much as she can but pt hollering she needs help with RLE. OT provided CGA to RLE, then pt able to raise into bed. Pt told therapist she really did need the help, OT informed pt she didn't assist pt, but pt kept arguing that this therapist did assist with raising her legs into bed. Post tx, pt in bed, call light in reach and all needs met. Education OT Patient Education: Correct positioning, Energy conservation, Modified ADL techniques, Progress toward Goal/Update tx plan, Purpose of tx/functional activities Teaching Recipient: Patient Teaching Methods: Discussion Response to Teaching: Verbalize Understanding OT Detention Goals Power Cleaner Operator Goals 1=Demonstrate adherence to instructed precautions during ADL tasks. 2=Patient will verbalize/demonstrate understanding of assistive devices/modifications for ADL. 3=Patient will improve strength/tolerance for activity to enable patient to perform ADL's. OT Education/Plan Problem List/Assessment Assessment: Decreased Activ Tolerance, Decreased Safety Aware, Decreased UE Strength, Impaired Funct Balance, Impaired I ADL's, Impaired Self-Care Skills Discharge Recommendations Plan/Recommendations: Continue POC Therapy Discharge Recommendati: Post Acute OT Treatment Plan/Plan of Care Patient would benefit from OT for education, treatment and training to promote independence in ADL's, mobility, safety and/or upper extremity function for ADL's. Plan of Care: ADL Retraining, Functional Mobility, UE Funct Exercise/Act Treatment Duration: Dec 21, 2021 Frequency: 3 times per week (3-5 times per week) Rehab Potential: Guarded Time/GCodes Start Time: 10:35 Stop Time: 10:45 Total Time Billed (hr/min): 10 Billed Treatment Time 1, FRANKY RUIZ OT Dec 13, 2021 11:22
[2021-12-13 11:38] VITALS: BP 120/60
[2021-12-13] MEDS: NS IV 1000 ML 1,000 ML IV SCH (12:14)
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
--- NOTE | 2021-12-13 13:36 | Physical Therapy Daily Note ---
PT Daily Note-Current Subjective Patient agrees to PT. Pain Numeric Pain Scale: 10-Worst Possible Pain Location: Right Location Body Site: Knee Pain Description: Acute Comment: with meds issued Mental Status Patient Orientation: Normal For Age Attachments: IV Transfers SCALE: Activities may be completed with or without assistive devices. 4-Tabljiwfeu-vcjhieg completes the activity by him/herself with no assistance from a helper. 5-Set-up or Clean-up Assistance-helper sets up or cleans up; patient completes activity. [place] assists only prior to or following the activity. 4-Supervision or Touching Assistance-helper provides verbal cues and/or touching/steadying and/or contact guard assistance as patient completes activity. Assistance may be provided throughout the activity or intermittently. 3-Partial/Moderate Assistance-helper does LESS THAN HALF the effort. [place] lifts, holds or supports trunk or limbs, but provides less than half the effort. 2-Substantial/Maximal Assistance-helper does MORE THAN HALF the effort. [place] lifts or holds trunk or limbs and provides more than half the effort. 5-Upiubgccl-pulcsq does ALL the effort. Patient does none of the effort to complete the activity. Or, the assistance of 2 or more helpers is required for the patient to complete the activity. If activity was not attempted, code reason: 7-Patient Refused. 9-Not Applicable-not attempted and the patient did not perform the activity before the current illness, exacerbation or injury. 10-Not Attempted due to Environmental Limitations-(lack of equipment, weather restraints, etc.). 88-Not Attempted due to Medical Conditions or Safety Concerns. Sit to Lying (QC): 4 Lying to Sitting/Side of Bed(Q: 4 Sit to Stand (QC): 3 Toilet Transfer (QC): 3 Gait Training Distance: 100' Walk 10 feet (QC): 4 Walk 50 ft with 2 Turns(QC): 4 Gait Assistive Device: FWW slow, antalgic Exercises Supine Ex: Ankle pumps, Quad Set, Heel Slides, Straight leg raise Supine Reps: 15 Seated Therapy Exercises: Long arc quads Seated Reps: 15 Assessment Patient tolerated treatment well and continues to limit right knee flexion due to pain. Patient will yell in pain and cease treatment. Education with patient on importance of increasing activity to improve current LOF. PT Mcc Goals Oil Laboratory Analyst Goals PT Oil Laboratory Analyst Goals Time Frame: Dec 19, 2021 Roll Left & Right (QC): 6 Sit to Lying (QC): 6 Lying-Sitting on Side/Bed(QC): 6 Sit to Stand (QC): 6 Chair/Ucz-lc-Iqiyb Xfer(QC): 6 Walk 10 feet (QC): 6 Walk 50ft with 2 Turns (QC): 6 PT Plan Treatment/Plan Treatment Plan: Continue Plan of Care Treatment Plan: Bed Mobility, Education, Functional Activity Main, Functional Strength, Gait, Safety, Therapeutic Exercise, Transfers Treatment Duration: Dec 19, 2021 Frequency: 11 times per week Estimated Hrs Per Day: .25 hour per day Patient and/or Family Agrees t: Yes Time/GCodes Time In: 1245 Time Out: 1309 Total Billed Treatment Time: 24 Total Billed Treatment 1 visit EX 9 min GT 15 min JIMMY ANNE PT Dec 13, 2021 13:36
[2021-12-13 15:15] VITALS: BP 121/57
[2021-12-13 19:12] VITALS: BP 114/61
--- NOTE | 2021-12-13 22:01 | DISCHARGE SUMMARY ---
DATE OF SERVICE: DIAGNOSES: 1. Right knee primary osteoarthritis. 2. Diabetes. 3. Chronic obstructive pulmonary disease. 4. Bipolar disorder. 5. Hypercholesterolemia. 6. Allergic rhinitis. 7. Cardiomegaly. 8. Obesity. 9. Asthma. PROCEDURE: Right total knee arthroplasty. SUMMARY: The patient is a 61-year-old female, who underwent a right total knee arthroplasty on the day of admission. Postoperatively, she was progressing well; however, she lives at home alone and was unable to return to this independently. Therefore, the plan was for her to go to the half-way facility. At the time of discharge, her wound was clean and dry. She had no calf tenderness. Negative Homans sign. CONDITION AT DISCHARGE: Good. DISCHARGE DIET: Regular. FOLLOWUP: Followup is in 3 weeks. ACTIVITIES: Weightbearing as tolerated with walker as needed. DISCHARGE MEDICATIONS: Home medications, aspirin one per day for 30 days and Percocet as needed for pain. Job ID: [id number] DocumentID: [id number] Dictated Date: 12/13/2021 18:09:19 Carbon Printer Date: 12/13/2021 22:00:41 Dictated By: KISHA BALDWIN MD
[2021-12-14] MEDS: NS IV 1000 ML 1,000 ML IV SCH (00:21)
[2021-12-14 00:35] VITALS: BP 143/80
[2021-12-14] MEDS: oxyCODONE/APAP 5/325MG (PERCOCET 5) TABLET PO PRN ×5 (02:42→20:55)
[2021-12-14 03:38] VITALS: BP 114/72
[2021-12-14 06:14] LABS: HEMOGLOBIN 9.1 g/dL (11.5-16.0)
--- NOTE | 2021-12-14 06:57 | Progress Note ---
Standard Progress Note Progress Notes/Assess & Plan Date Seen by a Provider: Dec 14, 2021 Time Seen by a Provider: 06:56 Progress/Assessment & Plan post op check no complaints radiographs--HW well positioned without fracture RLE--intact sensation to light touch throughout intact DF and PF of toes and ankle 2 plus DP pulse with bisk cap refill s/p RTKA mobilize as able Final Diagnosis mentally at baseline no complaints Vital Signs Date Time Temp Pulse Resp B/P (MAP) Pulse Ox O2 Delivery O2 Flow Rate FiO2 12/14/21 03:38 36.6 97 20 114/72 (86) 95 Nasal Cannula 3.00 12/14/21 00:35 37.7 105 20 143/80 (101) 92 Nasal Cannula 3.00 12/13/21 20:00 Nasal Cannula 2.00 12/13/21 19:12 36.5 95 20 114/61 (78) 91 Nasal Cannula 3.00 12/13/21 15:15 36.3 109 20 121/57 (78) 90 Nasal Cannula 3.00 12/13/21 11:38 35.9 100 20 120/60 (80) 92 Nasal Cannula 3.00 12/13/21 11:32 92 Nasal Cannula 3.00 12/13/21 11:30 73 Room Air 12/13/21 08:41 Nasal Cannula 2.00 12/13/21 08:01 36.0 102 22 128/63 (84) 90 Room Air I & O 12/14/21 07:00 Intake Total 1850 ml Output Total 300 ml Balance 1550 ml Laboratory Tests Test 12/14/21 06:00 Range/Units Hemoglobin 9.1 L 11.5-16.0 g/dL Hematocrit 29 L 35-52 % RLE--incision clean and dry. No calf tenderness. Neg Alfonso's s/p RTKA DC to [place] today KISHA BALDWIN MD Dec 14, 2021 06:57
[2021-12-14] MEDS ORDERED: morphine INJ 4 MG/ML 1 ML (VIAL/SYRINGE) IVP PRN (07:00)
[2021-12-14 08:00] VITALS: BP 107/70
[2021-12-14] MEDS: SENNA W/DOCUSATE (SENOKOT S) TABLET PO SCH ×2 (08:32→19:58)
[2021-12-14] MEDS: ENOXAPARIN INJECTION 30 MG/0.3 ML SYR SC SCH ×2 (08:32→20:14)
[2021-12-14] MEDS: ASPIRIN E.C. 81 MG (ECOTRIN) TAB PO SCH (08:32)
--- NOTE | 2021-12-14 08:51 | Physical Therapy Daily Note ---
PT Daily Note-Current Subjective Pt was in bed and had finish breakfast just prior to treatment. Patient reports that she did not get any sleep last night. Pain Comment: No numerical pain rating verbalized Mental Status Patient Orientation: Person, Place, Situation Attachments: Chery Catheter, IV Transfers SCALE: Activities may be completed with or without assistive devices. 5-Ewitknhbhw-kvhzryu completes the activity by him/herself with no assistance from a helper. 5-Set-up or Clean-up Assistance-helper sets up or cleans up; patient completes activity. [place] assists only prior to or following the activity. 4-Supervision or Touching Assistance-helper provides verbal cues and/or touching/steadying and/or contact guard assistance as patient completes activity. Assistance may be provided throughout the activity or intermittently. 3-Partial/Moderate Assistance-helper does LESS THAN HALF the effort. [place] lifts, holds or supports trunk or limbs, but provides less than half the effort. 2-Substantial/Maximal Assistance-helper does MORE THAN HALF the effort. [place] lifts or holds trunk or limbs and provides more than half the effort. 5-Daqhzzruj-mgpvwc does ALL the effort. Patient does none of the effort to com plete the activity. Or, the assistance of 2 or more helpers is required for the patient to complete the activity. If activity was not attempted, code reason: 7-Patient Refused. 9-Not Applicable-not attempted and the patient did not perform the activity before the current illness, exacerbation or injury. 10-Not Attempted due to Environmental Limitations-(lack of equipment, weather restraints, etc.). 88-Not Attempted due to Medical Conditions or Safety Concerns. Roll Left & Right (QC): 6 Lying to Sitting/Side of Bed(Q: 4 Sit to Stand (QC): 3 Chair/Dbj-km-Bdtja Xfer(QC): 4 Patient sat down in recliner forcefully, needs cues for hand placement and positioning. Weight Bearing Right Lower Extremity: Right Full Weight Bearing Left Lower Extremity: Left Weight Bearing/Tolerated Gait Training Does the Patient Walk?: Yes Distance: 80' Walk 10 feet (QC): 4 Walk 50 ft with 2 Turns(QC): 4 Gait Persons Needed: 1 Gait Assistive Device: FWW slow, antalgic ambulation, poor step through Wheelchair Training Does the Pt Use a Wheelchair?: No Type of Wheelchair: N/A Exercises Supine Ex: Ankle pumps, Quad Set, Heel Slides, Short Arc Quads Supine Reps: 10 SLR 10 reps Treatments LE Strengthening, mobility, ROM, Ambulation Assessment Current Status: Poor Progress poor progress with ambulation and right knee ROM PT [facility] Goals Production Honing Machine Operator Goals PT Production Honing Machine Operator Goals Time Frame: Dec 19, 2021 Roll Left & Right (QC): 6 Sit to Lying (QC): 6 Lying-Sitting on Side/Bed(QC): 6 Sit to Stand (QC): 6 Chair/Ppi-ve-Cgsos Xfer(QC): 6 Walk 10 feet (QC): 6 Walk 50ft with 2 Turns (QC): 6 PT Plan Problem List Problem List: Activity Tolerance, Functional Strength, Safety, Balance, Gait, Transfer, ROM Treatment/Plan Treatment Plan: Continue Plan of Care Treatment Plan: Bed Mobility, Education, Functional Activity Main, Functional Strength, Gait, Safety, Therapeutic Exercise, Transfers Treatment Duration: Dec 19, 2021 Frequency: 11 times per week Estimated Hrs Per Day: .25 hour per day Patient and/or Family Agrees t: Yes Safety Risks/Education Patient Education: Gait Training, Transfer Techniques, Correct Positioning, Safety Issues Teaching Recipient: Patient Teaching Methods: Discussion Response to Teaching: Reinforcement Needed Time/GCodes Time In: 805 Time Out: 823 Total Billed Treatment Time: 18 Total Billed Treatment 1 visit FA 18' OLVIN NICOLAS PT Dec 14, 2021 08:51
[2021-12-14 11:27] VITALS: BP 106/66
--- NOTE | 2021-12-14 11:40 | Occ Therapy Rehab Re-Cert ---
OT Re-Certification Form Plan of Care: ADL Retraining, Functional Mobility, UE Funct Exercise/Act LTGs entered due to goals not being saved on initial evaluation. Frequency: 3 times per week (3-5 times per week) Estimated Hrs Per Day: .25 hour per day Rehab Potential: Fair OT Care Home Goals Care Home Goals Time Frame: Dec 21, 2021 Eating (QC): 6 Oral Hygiene (QC): 5 Toileting Hygiene (QC): 6 Shower/Bathe Self (QC): 5 Upper Body Dressing (QC): 5 Lower Body Dressing (QC): 4 On/Off Footwear (QC): 4 Additional Goals: 1-Demonstrate ADL Tasks, 2-Verbalize Understanding, 3- ImproveStrength/Main 1=Demonstrate adherence to instructed precautions during ADL tasks. 2=Patient will verbalize/demonstrate understanding of assistive devices/modifications for ADL. 3=Patient will improve strength/tolerance for activity to enable patient to perform ADL's. FRANKY JIANG OT Dec 14, 2021 11:40
[2021-12-14 15:42] VITALS: BP 112/54
--- NOTE | 2021-12-14 16:30 | Physical Therapy Daily Note ---
PT Daily Note-Current Subjective Patient agrees to PT, has 9/10 pain in right knee. Appearance Patient in recliner post tx with nurse call, phone, tray, all needs met. Mental Status Patient Orientation: Person, Place, Situation Transfers SCALE: Activities may be completed with or without assistive devices. 3-Qudwwzqrfv-hklnoup completes the activity by him/herself with no assistance from a helper. 5-Set-up or Clean-up Assistance-helper sets up or cleans up; patient completes activity. [place] assists only prior to or following the activity. 4-Supervision or Touching Assistance-helper provides verbal cues and/or touching/steadying and/or contact guard assistance as patient completes activity. Assistance may be provided throughout the activity or intermittently. 3-Partial/Moderate Assistance-helper does LESS THAN HALF the effort. [place] lifts, holds or supports trunk or limbs, but provides less than half the effort. 2-Substantial/Maximal Assistance-helper does MORE THAN HALF the effort. [place] lifts or holds trunk or limbs and provides more than half the effort. 7-Rdzqyhicq-iophjd does ALL the effort. Patient does none of the effort to complete the activity. Or, the assistance of 2 or more helpers is required for the patient to complete the activity. If activity was not attempted, code reason: 7-Patient Refused. 9-Not Applicable-not attempted and the patient did not perform the activity before the current illness, exacerbation or injury. 10-Not Attempted due to Environmental Limitations-(lack of equipment, weather restraints, etc.). 88-Not Attempted due to Medical Conditions or Safety Concerns. Sit to Stand (QC): 3 Chair/Qye-sv-Nlxcm Xfer(QC): 4 Patient needs to use the restroom, stands and ambulates to restroom, doesn't need assist for pants or cleaning. Weight Bearing Right Lower Extremity: Right Full Weight Bearing Left Lower Extremity: Left Weight Bearing/Tolerated Gait Training Distance: 10', 50' Walk 10 feet (QC): 4 Walk 50 ft with 2 Turns(QC): 4 Gait Assistive Device: FWW Patient ambulates 10' to the restroom and then 50' when she is done. She has b een ambulating further than this but during ambulation she says "i'm done" and turns around. Her pain was too much she says to continue. Patient is a little unsteady with ambulating, has poor step through and foot clearance. Treatments toileting, ambulation, transfers Assessment Current Status: Poor Progress more pain, decreased distance of ambulation PT Lawn Technician Goals Lawn Technician Goals PT Lawn Technician Goals Time Frame: Dec 19, 2021 Roll Left & Right (QC): 6 Sit to Lying (QC): 6 Lying-Sitting on Side/Bed(QC): 6 Sit to Stand (QC): 6 Chair/Mka-ya-Favnd Xfer(QC): 6 Walk 10 feet (QC): 6 Walk 50ft with 2 Turns (QC): 6 PT Plan Problem List Problem List: Activity Tolerance, Functional Strength, Safety, Balance, Gait, Transfer, Bed Mobility, ROM Treatment/Plan Treatment Plan: Continue Plan of Care Treatment Plan: Bed Mobility, Education, Functional Activity Main, Functional Strength, Gait, Safety, Therapeutic Exercise, Transfers Treatment Duration: Dec 19, 2021 Frequency: 11 times per week Estimated Hrs Per Day: .25 hour per day Patient and/or Family Agrees t: Yes Safety Risks/Education Patient Education: Gait Training, Transfer Techniques, Correct Positioning, Safety Issues Teaching Recipient: Patient Teaching Methods: Demonstration, Discussion Response to Teaching: Reinforcement Needed Time/GCodes Time In: 1608 Time Out: 1622 Total Billed Treatment Time: 14 Total Billed Treatment 1 visit GT 14' OLVIN NICOLAS PT Dec 14, 2021 16:30
[2021-12-14 20:00] VITALS: BP 137/72
[2021-12-15] VITALS: BP 125/82
--- NOTE | 2021-12-15 05:35 | Progress Note ---
Standard Progress Note Progress Notes/Assess & Plan Date Seen by a Provider: Dec 15, 2021 Time Seen by a Provider: 05:33 Progress/Assessment & Plan post op check no complaints radiographs--HW well positioned without fracture RLE--intact sensation to light touch throughout intact DF and PF of toes and ankle 2 plus DP pulse with bisk cap refill s/p RTKA mobilize as able Final Diagnosis resting Vital Signs Date Time Temp Pulse Resp B/P (MAP) Pulse Ox O2 Delivery O2 Flow Rate FiO2 12/15/21 00:00 36.8 87 19 125/82 (96) 96 Nasal Cannula 4.00 12/14/21 20:15 Nasal Cannula 5.00 12/14/21 20:00 37.1 99 16 137/72 (93) 97 Nasal Cannula 5.00 12/14/21 16:45 Room Air 12/14/21 15:42 36.0 91 20 112/54 (73) 87 Room Air 12/14/21 11:27 36.3 89 20 106/66 (79) 90 Room Air 12/14/21 09:00 Nasal Cannula 2.00 12/14/21 08:00 35.5 84 20 107/70 (82) 91 Room Air I & O 12/15/21 07:00 Intake Total 970 ml Balance 970 ml Laboratory Tests Test 12/14/21 06:00 Range/Units Hemoglobin 9.1 L 11.5-16.0 g/dL Hematocrit 29 L 35-52 % RLE dressing intact no calf tenderness s/p Rtka Await placement KISHA BALDWIN MD Dec 15, 2021 05:35
[2021-12-15] MEDS: oxyCODONE/APAP 5/325MG (PERCOCET 5) TABLET PO PRN ×4 (06:02→17:36)
[2021-12-15] MEDS: MULTIVIT W/MINERALS TAB (THERAGRAN M) PO SCH (06:02)
[2021-12-15 06:17] LABS: HEMOGLOBIN 9.3 g/dL (11.5-16.0)
--- NOTE | 2021-12-15 06:18 | Progress Note - Hospitalist ---
Subjective HPI/CC On Admission Date Seen by Provider: Dec 15, 2021 Time Seen by Provider: 11:30 Subjective/Events-last exam Patient feels better Pain is still a major issue Bowels are moving Eating and drinking well Labs reviewed Review of Systems General: Fatigue, Malaise Musculoskeletal: leg pain Objective Exam Vital Signs Vital Signs Date Time Temp Pulse Resp B/P (MAP) Pulse Ox O2 Delivery O2 Flow Rate FiO2 12/16/21 00:40 36.2 71 18 103/66 (78) 98 Nasal Cannula 3.00 Capillary Refill : General Appearance: No Apparent Distress, WD/WN, Chronically ill Respiratory: Lungs Clear, Normal Breath Sounds Cardiovascular: Regular Rate, Rhythm Neurologic/Psychiatric: Alert, Oriented x3, No Motor/Sensory Deficits, Normal Mood/Affect Results/Procedures Lab Patient resulted labs reviewed. Assessment/Plan Assessment and Plan Assess & Plan/Chief Complaint Assessment: Status post uncomplicated right total knee replacement Slow recovery admitting to half-way on Friday COPD Obesity Plan: Monitor labs group home on Friday KRISTA MCKEON DO Dec 15, 2021 06:18
[2021-12-15 06:36] LABS: BASOPHILS % (AUTO) 0 % (0-10); EOSINOPHILS # (AUTO) 0.2 10^3/uL (0.0-0.3); EOSINOPHILS % (AUTO) 3 % (0-10); HEMATOCRIT 30 % (35-52); HEMOGLOBIN 9.4 g/dL (11.5-16.0); LYMPHOCYTES # (AUTO) 1.6 10^3/uL (1.0-4.0); LYMPHOCYTES % (AUTO) 22 % (12-44); MEAN CORPUSCULAR HEMOGLOBIN 27 pg (25-34); MEAN CORPUSCULAR HGB CONC 31 g/dL (32-36); MEAN CORPUSCULAR VOLUME 87 fL (80-99); MEAN PLATELET VOLUME 12.5 fL (9.0-12.2); MONOCYTES # (AUTO) 0.5 10^3/uL (0.0-1.0); MONOCYTES % (AUTO) 6 % (0-12); NEUTROPHILS # (AUTO) 4.9 10^3/uL (1.8-7.8); NEUTROPHILS % (AUTO) 68 % (42-75); PLATELET COUNT 141 10^3/uL (130-400); WHITE BLOOD COUNT 7.2 10^3/uL (4.3-11.0)
[2021-12-15 06:39] LABS: ALBUMIN 3.3 GM/DL (3.2-4.5); POTASSIUM 3.8 MMOL/L (3.6-5.0)
[2021-12-15 06:41] LABS: CALCIUM 9.2 MG/DL (8.5-10.1)
[2021-12-15 06:42] LABS: TOTAL PROTEIN 6.1 GM/DL (6.4-8.2)
[2021-12-15 06:44] LABS: BILIRUBIN,TOTAL 0.5 MG/DL (0.1-1.0)
[2021-12-15 06:46] LABS: CREATININE SERUM 0.73 MG/DL (0.60-1.30)
[2021-12-15 07:44] VITALS: BP 139/81
[2021-12-15] MEDS: ASPIRIN E.C. 81 MG (ECOTRIN) TAB PO SCH (08:11)
[2021-12-15] MEDS: SENNA W/DOCUSATE (SENOKOT S) TABLET PO SCH ×3 (08:11→19:29)
[2021-12-15] MEDS: ENOXAPARIN INJECTION 30 MG/0.3 ML SYR SC SCH ×2 (08:11→19:19)
--- NOTE | 2021-12-15 11:40 | Physical Therapy Daily Note ---
PT Daily Note-Current Subjective Pt. in bed, reluctant to walk but does agree. Rates pain 7/10 in the R knee. States she is going to a correction on Friday. Mental Status Patient Orientation: Person, Place, Time, Situation Transfers SCALE: Activities may be completed with or without assistive devices. 7-Agujjxiuhr-whuxttv completes the activity by him/herself with no assistance from a helper. 5-Set-up or Clean-up Assistance-helper sets up or cleans up; patient completes activity. [place] assists only prior to or following the activity. 4-Supervision or Touching Assistance-helper provides verbal cues and/or touching/steadying and/or contact guard assistance as patient completes activity. Assistance may be provided throughout the activity or intermittently. 3-Partial/Moderate Assistance-helper does LESS THAN HALF the effort. [place] lifts, holds or supports trunk or limbs, but provides less than half the effort. 2-Substantial/Maximal Assistance-helper does MORE THAN HALF the effort. [place] lifts or holds trunk or limbs and provides more than half the effort. 6-Biblsyhgd-ieidbf does ALL the effort. Patient does none of the effort to complete the activity. Or, the assistance of 2 or more helpers is required for the patient to complete the activity. If activity was not attempted, code reason: 7-Patient Refused. 9-Not Applicable-not attempted and the patient did not perform the activity before the current illness, exacerbation or injury. 10-Not Attempted due to Environmental Limitations-(lack of equipment, weather restraints, etc.). 88-Not Attempted due to Medical Conditions or Safety Concerns. Lying to Sitting/Side of Bed(Q: 4 Sit to Stand (QC): 4 assist needed with R LE, although patient does not attempt to raise leg herself Weight Bearing Right Lower Extremity: Right Full Weight Bearing Left Lower Extremity: Left Weight Bearing/Tolerated Gait Training Does the Patient Walk?: Yes Distance: 75 ft Gait Persons Needed: 4 Gait Assistive Device: FWW poor heel toe gait despite several cues for form. patient is reluctant to put full weight on the R LE, primarily uses UE's and c/o arm fatigue. Exercises Seated Therapy Exercises: Ankle pumps, Long arc quads, Hamstring Curls Seated Reps: 10 Treatments gait and R LE exercises Assessment Current Status: Poor Progress, Fair Progress Pt. is progressing slowly with therapy. She has minimal ROM with exercises despite several cues and therapist assist to increase motion. Pt. is unwilling to increase ambulation distance c/o UE fatigue. Pt. requires a lot of encouragement during session, however minimal response from patient. Pt. in bedside chair post session with call light and all needs met. PT Senior Care Goals Senior Care Goals PT Business Controller Goals Time Frame: Dec 19, 2021 Roll Left & Right (QC): 6 Sit to Lying (QC): 6 Lying-Sitting on Side/Bed(QC): 6 Sit to Stand (QC): 6 Chair/Wzo-mu-Znqvj Xfer(QC): 6 Walk 10 feet (QC): 6 Walk 50ft with 2 Turns (QC): 6 PT Plan Treatment/Plan Treatment Plan: Continue Plan of Care Treatment Plan: Bed Mobility, Education, Functional Activity Main, Functional Strength, Gait, Safety, Therapeutic Exercise, Transfers Treatment Duration: Dec 19, 2021 Frequency: 11 times per week Estimated Hrs Per Day: .25 hour per day Patient and/or Family Agrees t: Yes Time/GCodes Time In: 929 Time Out: 946 Total Billed Treatment Time: 17 Total Billed Treatment 1, GT 10', (ex 7') INDRA JEWELL PT Dec 15, 2021 11:40
[2021-12-15 15:29] VITALS: BP 144/63
[2021-12-16 00:40] VITALS: BP 103/66
[2021-12-16] MEDS: MULTIVIT W/MINERALS TAB (THERAGRAN M) PO SCH (05:40)
[2021-12-16] MEDS: oxyCODONE/APAP 5/325MG (PERCOCET 5) TABLET PO PRN ×5 (05:42→19:46)
--- NOTE | 2021-12-16 06:57 | Progress Note - Hospitalist ---
Subjective HPI/CC On Admission Date Seen by Provider: Dec 16, 2021 Time Seen by Provider: 12:45 Subjective/Events-last exam Patient having no issues Going to [facility] tomorrow Minimal motivation Review of Systems Musculoskeletal: leg pain Objective Exam Vital Signs Vital Signs Date Time Temp Pulse Resp B/P (MAP) Pulse Ox O2 Delivery O2 Flow Rate FiO2 12/17/21 00:35 36.3 79 18 105/72 (83) 94 Room Air 12/16/21 07:43 3.00 Capillary Refill : General Appearance: No Apparent Distress, WD/WN, Chronically ill, Obese Results/Procedures Lab Patient resulted labs reviewed. Assessment/Plan Assessment and Plan Assess & Plan/Chief Complaint Assessment: Status post uncomplicated right total knee replacement Slow recovery [facility] COPD Obesity Plan: Monitor labs [facility] on Friday12/16/2021: Supportive care KRISTA MCKEON DO Dec 16, 2021 06:57
[2021-12-16 07:38] VITALS: BP 131/86
[2021-12-16] MEDS: SENNA W/DOCUSATE (SENOKOT S) TABLET PO SCH ×2 (08:27→19:40)
[2021-12-16] MEDS: ASPIRIN E.C. 81 MG (ECOTRIN) TAB PO SCH (08:27)
[2021-12-16] MEDS: ENOXAPARIN INJECTION 30 MG/0.3 ML SYR SC SCH ×2 (08:27→19:39)
--- NOTE | 2021-12-16 09:05 | Physical Therapy Daily Note ---
PT Daily Note-Current Subjective Pt. in bedside chair, says "I don't want to" to walking and exercises today. During session, patient frequently says "I can't, I can't!" She c/o stiffness in the R knee, no objective pain rating. Mental Status Patient Orientation: Person, Place, Time, Situation Transfers SCALE: Activities may be completed with or without assistive devices. 4-Zsprgbotyt-otgbhcz completes the activity by him/herself with no assistance from a helper. 5-Set-up or Clean-up Assistance-helper sets up or cleans up; patient completes activity. [place] assists only prior to or following the activity. 4-Supervision or Touching Assistance-helper provides verbal cues and/or touching/steadying and/or contact guard assistance as patient completes activity. Assistance may be provided throughout the activity or intermittently. 3-Partial/Moderate Assistance-helper does LESS THAN HALF the effort. [place] lifts, holds or supports trunk or limbs, but provides less than half the effort. 2-Substantial/Maximal Assistance-helper does MORE THAN HALF the effort. [place] lifts or holds trunk or limbs and provides more than half the effort. 1-Uokdxpzvx-zncnwc does ALL the effort. Patient does none of the effort to complete the activity. Or, the assistance of 2 or more helpers is required for the patient to complete the activity. If activity was not attempted, code reason: 7-Patient Refused. 9-Not Applicable-not attempted and the patient did not perform the activity before the current illness, exacerbation or injury. 10-Not Attempted due to Environmental Limitations-(lack of equipment, weather restraints, etc.). 88-Not Attempted due to Medical Conditions or Safety Concerns. Sit to Stand (QC): 6 Weight Bearing Right Lower Extremity: Right Full Weight Bearing Left Lower Extremity: Left Weight Bearing/Tolerated Gait Training Does the Patient Walk?: Yes Distance: 75 ft Gait Persons Needed: 1 Gait Assistive Device: FWW Exercises Seated Therapy Exercises: Ankle pumps, Long arc quads, Hamstring Curls Seated Reps: 15 Treatments gait training, exercises Assessment Current Status: Poor Progress, Fair Progress Pt. continues to progress very slowly with therapy. She self-limits gait distance despite therapist encouragement to continue. She has poor ROM with exercises and requires therapist assist for all exercises. Pt. is very stiff with knee flexion and unwilling to complete TKE. Pt. in bedside chair post session with call light and all needs met, declined polar pack post session. PT Shake Sawyer Goals Sh[place] Goals PT Intermediate Goals Time Frame: Dec 19, 2021 Roll Left & Right (QC): 6 Sit to Lying (QC): 6 Lying-Sitting on Side/Bed(QC): 6 Sit to Stand (QC): 6 Chair/Mmt-jg-Jmept Xfer(QC): 6 Walk 10 feet (QC): 6 Walk 50ft with 2 Turns (QC): 6 PT Plan Treatment/Plan Treatment Plan: Continue Plan of Care Treatment Plan: Bed Mobility, Education, Functional Activity Main, Functional Strength, Gait, Safety, Therapeutic Exercise, Transfers Treatment Duration: Dec 19, 2021 Frequency: 11 times per week Estimated Hrs Per Day: .25 hour per day Patient and/or Family Agrees t: Yes Time/GCodes Time In: 0842 Time Out: 0859 Total Billed Treatment Time: 17 Total Billed Treatment 1, GT 10', (Ex 7') INDRA JEWELL PT Dec 16, 2021 09:05
--- NOTE | 2021-12-16 09:16 | Progress Note ---
Standard Progress Note Progress Notes/Assess & Plan Date Seen by a Provider: Dec 16, 2021 Time Seen by a Provider: 06:10 Progress/Assessment & Plan post op check no complaints radiographs--HW well positioned without fracture RLE--intact sensation to light touch throughout intact DF and PF of toes and ankle 2 plus DP pulse with bisk cap refill s/p RTKA mobilize as able Final Diagnosis resting Vital Signs Date Time Temp Pulse Resp B/P (MAP) Pulse Ox O2 Delivery O2 Flow Rate FiO2 12/16/21 07:43 Nasal Cannula 3.00 12/16/21 07:38 36.6 90 18 131/86 (101) 97 Nasal Cannula 3.00 12/16/21 00:40 36.2 71 18 103/66 (78) 98 Nasal Cannula 3.00 12/15/21 20:00 Room Air 12/15/21 15:29 36.9 85 16 144/63 (90) 98 Nasal Cannula 3.00 I & O 12/16/21 07:00 Intake Total 1260 ml Balance 1260 ml RLE dressing intact NVI s/P RTKA await KISHA MURILLO MD Dec 16, 2021 09:16
[2021-12-16 16:08] VITALS: BP 128/80
[2021-12-17 00:35] VITALS: BP 105/72
[2021-12-17] MEDS: MULTIVIT W/MINERALS TAB (THERAGRAN M) PO SCH (05:10)
[2021-12-17] MEDS: oxyCODONE/APAP 5/325MG (PERCOCET 5) TABLET PO PRN ×2 (05:11→12:05)
[2021-12-17] MEDS ORDERED: ENXP30I.3 SC (07:14)
[2021-12-17] MEDS ORDERED: METF-399 PO (07:14)
[2021-12-17] MEDS ORDERED: RT-ALBUINH IH (07:14)
[2021-12-17] MEDS ORDERED: PREG75CA PO (07:14)
[2021-12-17] MEDS ORDERED: PANT40TA52 PO (07:14)
[2021-12-17] MEDS ORDERED: SENN1TAB76 PO (07:14)
[2021-12-17] MEDS ORDERED: FLUO20CA48 PO (07:14)
[2021-12-17] MEDS ORDERED: MULT-1137 PO (07:14)
[2021-12-17] MEDS ORDERED: FLUT1BLS IH (07:14)
[2021-12-17] MEDS ORDERED: OXYC1TAB87 PO (07:14)
--- NOTE | 2021-12-17 07:15 | Discharge Summary ---
Discharge Summary Hospital Course Was the Problem List Reviewed?: Yes Problems/Dx: (1) Osteoarthritis of right knee Status: Chronic Qualifiers: Qualified Codes: M17.11 - Unilateral primary osteoarthritis, right knee (2) COPD (chronic obstructive pulmonary disease) Status: Chronic Qualifiers: Qualified Codes: J41.8 - Mixed simple and mucopurulent chronic bronchitis (3) Non-insulin dependent type 2 diabetes mellitus Status: Chronic (4) 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 Status: Chronic (5) Discharge planning issues Status: Acute Hospital Course Date of Admission: Dec 12, 2021 at 06:00 Admission Diagnosis : Family Physician/Provider: Li Espino MD Date of Discharge: 12/17/21 Discharge Diagnosis: Right knee replacement, slow recovery, ENRRIQUE, diabetes, poor motivation Hospital Course: Pt had an uneventful 6 day hospital course after undergoing right knee replacement by Dr. Meredith. She had a very slow recovery. Labs and vitals remain stable. She needed custodial placement for continued recovery. Labs and Pending Lab Test: Home Meds Active Tab-A-Scottie Multivit with Iron (Multivitamin/Iron/Folic Acid) 1 Each Tablet 1 Ea PO DAILY@0700 Stool Softener-Laxative Tablet (Sennosides/Docusate Sodium) 1 Each Tablet 2 Ea PO BID Percocet 5-325 mg Tablet (Oxycodone HCl/Acetaminophen) 1 Each Tablet 1 Tab PO Q2HR PRN Lovenox (Enoxaparin Sodium) 30 Mg/0.3 Ml Syringe 30 Mg SC Q12H Lyrica (Pregabalin) 75 Mg Capsule 75 Mg PO BID Fluoxetine HCl 20 Mg Capsule 40 Mg PO DAILY Pantoprazole Sodium 40 Mg Tablet.dr 40 Mg PO DAILY Proair Hfa (Albuterol Sulfate) 1 Puff Puff 2 Puff IH Q4H PRN Breo Ellipta 200-25 Mcg INH (Fluticasone/Vilanterol) 1 Each Blst.w.dev 1 Each IH DAILY Metformin HCl 1,000 Mg Tablet 1,000 Mg PO BID Prednisone 20 Mg Tab 40 Mg PO DAILY 5 Days Reported Ibuprofen 200 Mg Tablet 600 Mg PO Q6H PRN Assessment/Pt Instructions PCP in 1 week Discharge Planning: <30 minutes discharge planning Discharge Instructions Discharge Diet: Regular Diet Discharge Physical Examination Vital Signs Vital Signs Date Time Temp Pulse Resp B/P (MAP) Pulse Ox O2 Delivery O2 Flow Rate FiO2 12/17/21 00:35 36.3 79 18 105/72 (83) 94 Room Air 12/16/21 07:43 3.00 General Appearance: No Apparent Distress, WD/WN, Chronically ill Allergies: Coded Allergies: nickel (Verified Allergy, Intermediate, RASH, 10/31/21) doxycycline (Verified Allergy, Mild, HIVES, 10/31/21) Iodinated Contrast Media (Verified Allergy, Unknown, 10/31/21) cobalt (Verified Allergy, Unknown, Hives, 10/31/21) penicillin (Verified Allergy, Unknown, HAS RECEIVED ROCEPHIN, 10/31/21) rash Uncoded Allergies: hexachloride (Allergy, Unknown, Hives, 06/24/19) Discharge Summary Date of Admission Dec 12, 2021 at 06:00 Date of Discharge Discharge Date: Dec 17, 2021 Discharge Diagnosis Assessment: Status post uncomplicated right total knee replacement Slow recovery admitting to custodial on Friday COPD Obesity Plan: Monitor labs [facility] on Friday12/16/2021: Supportive care KRISTA MCKEON DO Dec 17, 2021 07:15
[2021-12-17 08:00] VITALS: BP 148/65
[2021-12-17] MEDS: SENNA W/DOCUSATE (SENOKOT S) TABLET PO SCH ×2 (08:40→08:44)
[2021-12-17] MEDS: ENOXAPARIN INJECTION 30 MG/0.3 ML SYR SC SCH (08:40)
[2021-12-17] MEDS: ASPIRIN E.C. 81 MG (ECOTRIN) TAB PO SCH (08:40)
[2021-12-17 13:32] VITALS: BP 148/65
--- NOTE | 2021-12-17 14:48 | Occupational Ther Daily Note ---
OT Current Status-Daily Note Subjective Late Entry 12/14/2021-Pt alert, sitting in recliner. Pt agrees to therapy. No c/o pain. [facility] accepted pt for Friday. Mental Status/Objective Patient Orientation: Person, Place, Time, Situation Attachments: IV ADL-Treatment Pt agrees to sponge bath. After set up, pt completed sponge bath by self. Pt then ambulated using FWW to<-->from bathroom with 1 LOB. Assist with stand to sit on toilet transfer due to unable to control decent. Pt able to manipulate clothing and cleanse self. After set up, pt complete lower body and upper body dressing by self. Assist to complete footwear. Pt required cues to scoot back until chair is felt on back of legs due to pt sitting before squaring up to chair and still a distance from chair then unable to control decent. After therapy, pt sitting in recliner with call light/phone in reach. All needs met in room. Therapy Code Descriptions/Definitions Functional [place] Measure: 0=Not Assessed/NA 4=Minimal Assistance 1=Total Assistance 5=Supervision or Setup 2=Maximal Assistance 6=Modified [place] 3=Moderate Assistance 7=Complete IndependenceSCALE: Activities may be completed with or without assistive devices. 5-Gyspdoqnmk-zosxoby completes the activity by him/herself with no assistance from a helper. 5-Set-up or Clean-up Assistance-helper sets up or cleans up; patient completes activity. [place] assists only prior to or following the activity. 4-Supervision or Touching Assistance-helper provides verbal cues and/or touching/steadying and/or contact guard assistance as patient completes activity. Assistance may be provided throughout the activity or intermittently. 3-Partial/Moderate Assistance-helper does LESS THAN HALF the effort. [place] lifts, holds or supports trunk or limbs, but provides less than half the effort. 2-Substantial/Maximal Assistance-helper does MORE THAN HALF the effort. [place] lifts or holds trunk or limbs and provides more than half the effort. 5-Sghlbhvmx-geagrd does ALL the effort. Patient does none of the effort to complete the activity. Or, the assistance of 2 or more helpers is required for the patient to complete the activity. If activity was not attempted, code reason: 7-Patient Refused. 9-Not Applicable-not attempted and the patient did not perform the activity before the current illness, exacerbation or injury. 10-Not Attempted due to Environmental Limitations-(lack of equipment, weather restraints, etc.). 88-Not Attempted due to Medical Conditions or Safety Concerns. Shower/Bathe Self (QC): 5 Upper Body Dressing (QC): 5 Lower Body Dressing (QC): 5 On/Off Footwear: 2 Toileting Hygiene (QC): 6 Toilet Transfer (QC): 3 (Mod A) OT Snf Goals Snf Goals Time Frame: Dec 21, 2021 Eating (QC): 6 Oral Hygiene (QC): 5 Toileting Hygiene (QC): 6 Shower/Bathe Self (QC): 5 Upper Body Dressing (QC): 5 Lower Body Dressing (QC): 4 On/Off Footwear (QC): 4 Additional Goals: 1-Demonstrate ADL Tasks, 2-Verbalize Understanding, 3-ImproveStrength/Main 1=Demonstrate adherence to instructed precautions during ADL tasks. 2=Patient will verbalize/demonstrate understanding of assistive devices/modifications for ADL. 3=Patient will improve strength/tolerance for activity to enable patient to perform ADL's. OT Education/Plan Problem List/Assessment Assessment: Decreased Activ Tolerance, Decreased Safety Aware, Impaired Self- Care Skills Discharge Recommendations Plan/Recommendations: Continue POC Treatment Plan/Plan of Care Patient would benefit from OT for education, treatment and training to promote independence in ADL's, mobility, safety and/or upper extremity function for ADL's. Plan of Care: ADL Retraining, Functional Mobility, UE Funct Exercise/Act Treatment Duration: Dec 21, 2021 Frequency: 3 times per week (3-5 times per week) Rehab Potential: Fair Time/GCodes Start Time: 10:00 Stop Time: 10:30 Total Time Billed (hr/min): 30 Billed Treatment Time Late Entry for 12/14/2021-! visit-ADL 2 (30 min) CANDY VAUGHN Dec 17, 2021 14:48
--- NOTE | 2021-12-17 21:37 | DISCHARGE SUMMARY ---
DATE OF SERVICE: ADDENDUM: The patient due to placement issues, was not discharged until 12/17/2021. Discharge date should be 12/17/2021 instead of 12/14/2021 due to placement issues. Job ID: [id number] DocumentID: [id number] Dictated Date: 12/17/2021 16:43:59 Certified Alcohol And Drug Counselor Date: 12/17/2021 21:36:08 Dictated By: KISHA BALDWIN MD
== END 2021-12-17 13:50 | DRG 470 ==
LOC: 4TH 12-12 06:00 → SURG 12-12 06:01 → 4TH 12-12 09:49
PROVIDERS: ADMIT Orthopaedic Surgery; ATTEND Orthopaedic Surgery
PROC: 8E0ZXY6 Isolation (ICD-10-PCS; 2021-12-12)
PROC: 0SRC0J9 Replacement of Right Knee Joint with Synthetic Substitute, Cemented, Open Approach (ICD-10-PCS; principal; 2021-12-12 07:36)
DX: M17.11 Unilateral primary osteoarthritis, right knee (principal); E11.9 Type 2 diabetes mellitus without complications; J44.9 Chronic obstructive pulmonary disease, unspecified; F31.9 Bipolar disorder, unspecified; E78.00 Pure hypercholesterolemia, unspecified; E66.9 Obesity, unspecified; Z68.39 Body mass index [BMI] 39.0-39.9, adult; G47.33 Obstructive sleep apnea (adult) (pediatric); J30.9 Allergic rhinitis, unspecified; Z87.891 Personal history of nicotine dependence; Z88.0 Allergy status to penicillin; Z88.8 Allergy status to other drugs, medicaments and biological substances; Z88.1 Allergy status to other antibiotic agents; Z91.041 Radiographic dye allergy status; Z82.5 Family history of asthma and other chronic lower respiratory diseases; Z83.3 Family history of diabetes mellitus; Z82.49 Family history of ischemic heart disease and other diseases of the circulatory system
CPT/HCPCS: 36415; 73560; 80053; 82607; 82947; 83540; 85014; 85018; 85025; 86850; 86900; 86901; 94664; 94760

== ENCOUNTER 2021-11-28 09:56 | Emergency (ER) | payer MEDICARE, MEDICAID ==
[~2021-11-28] VITALS: Ht 175 cm; Wt 120.0 kg
[2021-11-28 09:58] VITALS: BP 120/79
[2021-11-28 10:31] LABS: BASOPHILS % (AUTO) 0 % (0-10); EOSINOPHILS # (AUTO) 0.2 10^3/uL (0.0-0.3); EOSINOPHILS % (AUTO) 3 % (0-10); HEMATOCRIT 37 % (35-52); LYMPHOCYTES # (AUTO) 2.4 10^3/uL (1.0-4.0); LYMPHOCYTES % (AUTO) 32 % (12-44); MEAN CORPUSCULAR HEMOGLOBIN 27 pg (25-34); MEAN CORPUSCULAR HGB CONC 33 g/dL (32-36); MEAN CORPUSCULAR VOLUME 82 fL (80-99); MEAN PLATELET VOLUME 12.1 fL (9.0-12.2); MONOCYTES # (AUTO) 0.4 10^3/uL (0.0-1.0); MONOCYTES % (AUTO) 5 % (0-12); NEUTROPHILS # (AUTO) 4.5 10^3/uL (1.8-7.8); NEUTROPHILS % (AUTO) 60 % (42-75); PLATELET COUNT 175 10^3/uL (130-400); WHITE BLOOD COUNT 7.4 10^3/uL (4.3-11.0)
--- NOTE | 2021-11-28 10:31 | ED Chest Pain ---
General Chief Complaint: Chest Pain Stated Complaint: CHEST PAIN Nursing Triage Note: AMB TO ED FROM [facility] WITH C/O CHEST PAIN FOR 3 DAYS PAIN WORSE WITH BREATHING C/O ALSO C/O HEADACHE HAD COVID 6 WEEKS AGO. WAS DX WITH UTI AT [facility]. 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 Source: patient Exam Limitations: no limitations History of Present Illness Date Seen by Provider: Nov 28, 2021 Time Seen by Provider: 10:15 Initial Comments Patient to the ER by JADE from [facility] with chief complaint she has had several between 4 days and 2 weeks of substernal chest pain worse on palpation and deep inspiration. She had COVID 4 weeks ago. She had a Covid test 2 weeks ago that was negative. She went to the doctor today because she knew she had a urinary tract infection and they wrote her a prescription for a ntibiotics got an EKG which did not demonstrate ST changes. They then sent her to the ER. She does not have a history of coronary disease. She does not have hypertension or hyperlipidemia. She quit smoking in 2006. She has COPD but does not have any wheezing. She has been using her breathing treatments routinely. She is not on steroids. She is not having any nausea vomiting or radiation of her pain. No history of pancreatitis. No history of acid reflux. No history of swelling or pain in her hands or feet. She has a planned surgery in [address] Meredith to have her knee replaced. She is worried she might have developed bacterial pneumonia on top of her COVID. This is her second time having Covid. Allergies and Home Medications Allergies Coded Allergies: nickel (Verified Allergy, Intermediate, RASH, 10/31/21) doxycycline (Verified Allergy, Mild, HIVES, 10/31/21) Iodinated Contrast Media (Verified Allergy, Unknown, 10/31/21) cobalt (Verified Allergy, Unknown, Hives, 10/31/21) penicillin (Verified Allergy, Unknown, HAS RECEIVED ROCEPHIN, 10/31/21) rash Uncoded Allergies: hexachloride (Allergy, Unknown, Hives, 06/24/19) Patient Home Medication List Home Medication List Reviewed: Yes Albuterol Sulfate (Proair Hfa) 1 Puff Puff, 2 PUFF IH Q4H PRN for WHEEZING Prescribed by: PATRIC MONTERO on 05/14/21 8378 Fluoxetine HCl (Fluoxetine HCl) 20 Mg Capsule, 40 MG PO DAILY Prescribed by: PATRIC MONTERO on 05/14/21 1535 Fluticasone/Vilanterol (Breo Ellipta 200-25 Mcg INH) 1 Each Blst.w.dev, 1 EACH IH DAILY Prescribed by: PATRIC MONTERO on 05/14/21 1535 Ibuprofen (Ibuprofen) 200 Mg Tablet, 600 MG PO Q6H PRN for PAIN-MILD (1-4), (Reported) Entered as Reported by: ELIU WHALEY on 05/14/21 1517 Metformin HCl (Metformin HCl) 1,000 Mg Tablet, 1,000 MG PO BID, (Reported) Entered as Reported by: SRINIVASAN BAH on 02/28/17 1044 Pantoprazole Sodium (Pantoprazole Sodium) 40 Mg Tablet.dr, 40 MG PO DAILY Prescribed by: PATRIC MONTERO on 05/14/21 1535 Pregabalin (Lyrica) 75 Mg Capsule, 75 MG PO BID, (Reported) Entered as Reported by: ALFREDA ANGUIANO on 10/31/21 1311 Review of Systems Review of Systems Constitutional: No chills, No fever; malaise EENTM: No Blurred Vision, No Double Vision Respiratory: Cough (Clear phlegm only), Shortness of Air Cardiovascular: Chest Pain; Denies Lightheadedness, Denies Palpitations Gastrointestinal: Denies Abdominal Pain, Denies Constipated, Denies Diarrhea, Denies Nausea Genitourinary: Denies Burning, Denies Discharge Musculoskeletal: No back pain, No joint pain Skin: No pruritus, No rash Psychiatric/Neurological: Denies Headache, Denies Numbness, Denies Paresthesia All Other Systems Reviewed Negative Unless Noted: Yes Past Fdhfypc-Lszdby-Vyigtw Hx Patient Social History Tobacco Use?: No Use of E-Cig and/or Vaping dev: No Immunizations Up To Date Tetanus Booster (TDap): Unknown PED Vaccines UTD: No First/Initial COVID19 Vaccinat: NOT VACCINATED Second COVID19 Vaccination Abdelrahman: NOT VACCINATED Third COVID19 Vaccination Date: NOT VACCINATED Seasonal Allergies Seasonal Allergies: Yes Past Medical History Surgery/Hospitalization HX: RIGHT KNEE SCOPE 12/27/20 AND 04/25/[address] 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, Menopausal Sexually Transmitted Disease: No HIV/AIDS: No Genitourinary: Yes Kidney Infection, Bladder Infection, UTI-Chronic Gastrointestinal: Yes (INFLAMATION IN COLON, VENTRAL HERNIA) Abdominal Hernia, Gastroesophageal Reflux, Chronic Constipation, Chronic Diarrhea, Irritable Bowel Musculoskeletal: Yes (RESTLESS LEG SYNDROME) Arthritis, Fibromyalgia, Chronic Back Pain Endocrine: Yes (OBESITY) Diabetes, Non-Insulin dep HEENT: Yes (GLASSES) Loss of Vision: Bilateral Hearing Impairment: Denies Cancer: No Psychosocial: Yes Sleep Difficulties, Anxiety, Bipolar, Depression Integumentary: No Blood Disorders: No Adverse Reaction/Blood Tranf: No (N/A) Family Medical History Arthritis 19 MOTHER, Onset:Unknown Asthma 19 FATHER, Onset:Unknown Cataracts 19 MOTHER, Onset:Unknown Diabetes mellitus 19 MOTHER, Onset:Unknown FH: COPD (chronic obstructive pulmonary disease) 19 FATHER, Onset:Unknown Hypercholesterolemia 19 MOTHER MS (multiple sclerosis) G8 SISTER, Onset:Unknown Physical Exam Vital Signs Vital Signs - First Documented 11/28/21 09:58 Temp 36.8 Pulse 83 Resp 18 B/P (MAP) 120/79 (93) Pulse Ox 98 O2 Delivery Room Air Capillary Refill : Less Than 3 Seconds Height, Weight, BMI Height: 5'9.00" Weight: 288lbs. 0.0oz. 130.624861dt; 39.00 BMI Method:Stated General Appearance: No Apparent Distress, WD/WN HEENT: PERRL/EOMI, Pharynx Normal, Moist Mucous Membranes Neck: Full Range of Motion, Normal Inspection Respiratory: No Chest Non Tender (Chest pain reproduced by direct palpation of the chest.); No Accessory Muscle Use, No Respiratory Distress Cardiovascular: Regular Rate, Rhythm, No Edema Gastrointestinal: Normal Bowel Sounds, Non Tender, Soft Extremity: Normal Capillary Refill, Normal Inspection, No Pedal Edema Neurologic/Psychiatric: Alert, Oriented x3 Skin: Normal Color, Warm/Dry Progress/Results/Core Measures Results/Orders Lab Results Laboratory Tests Test 11/28/21 10:10 11/28/21 10:27 11/28/21 11:55 Range/Units White Blood Count 7.4 4.3-11.0 10^3/uL Red Blood Count 4.48 3.80-5.11 10^6/uL Hemoglobin 12.0 11.5-16.0 g/dL Hematocrit 37 35-52 % Mean Corpuscular Volume 82 80-99 fL Mean Corpuscular Hemoglobin 27 25-34 pg Mean Corpuscular Hemoglobin Concent 33 32-36 g/dL Red Cell Distribution Width 14.8 H 10.0-14.5 % Platelet Count 175 130-400 10^3/uL Mean Platelet Volume 12.1 9.0-12.2 fL Immature Granulocyte % (Auto) 0 % Neutrophils (%) (Auto) 60 42-75 % Lymphocytes (%) (Auto) 32 12-44 % Monocytes (%) (Auto) 5 0-12 % Eosinophils (%) (Auto) 3 0-10 % Basophils (%) (Auto) 0 0-10 % Neutrophils # (Auto) 4.5 1.8-7.8 10^3/uL Lymphocytes # (Auto) 2.4 1.0-4.0 10^3/uL Monocytes # (Auto) 0.4 0.0-1.0 10^3/uL Eosinophils # (Auto) 0.2 0.0-0.3 10^3/uL Basophils # (Auto) 0.0 0.0-0.1 10^3/uL Immature Granulocyte # (Auto) 0.0 0.0-0.1 10^3/uL D-Dimer 0.71 H 0.00-0.49 UG/ML Sodium Level 138 135-145 MMOL/L Potassium Level 3.8 3.6-5.0 MMOL/L Chloride Level 106 98-107 MMOL/L Carbon Dioxide Level 20 L 21-32 MMOL/L Anion Gap 12 5-14 MMOL/L Blood Urea Nitrogen 10 7-18 MG/DL Creatinine 0.78 0.60-1.30 MG/DL Estimat Glomerular Filtration Rate 88 BUN/Creatinine Ratio 13 Glucose Level 201 H 70-105 MG/DL Calcium Level 9.2 8.5-10.1 MG/DL Corrected Calcium 9.4 8.5-10.1 MG/DL Total Bilirubin 0.4 0.1-1.0 MG/DL Aspartate Amino Transf (AST/SGOT) 22 5-34 U/L Alanine Aminotransferase (ALT/SGPT) 25 0-55 U/L Alkaline Phosphatase 88 40-136 U/L Troponin I < 0.028 < 0.028 <0.028 NG/ML C-Reactive Protein High Sensitivity 0.88 H 0.00-0.50 MG/DL Total Protein 7.1 6.4-8.2 GM/DL Albumin 3.8 3.2-4.5 GM/DL Lipase 51 8-78 U/L Influenza Type A (RT-PCR) Not Detected Not Detecte Influenza Type B (RT-PCR) Not Detected Not Detecte SARS-CoV-2 RNA (RT-PCR) Not Detected Not Detecte My Orders Orders - LAUREL SHEN Ekg Tracing (11/28/21 10:00) Continuous Ekg Monitoring (11/28/21 10:00) Influenza A And B By Pcr (11/28/21 10:24) Covid 19 Inhouse Test (11/28/21 10:24) Chest 1 View, Ap/Pa Only (11/28/21 10:24) Troponin I [place] (11/28/21 10:24) Cbc With Automated Diff (11/28/21 10:24) Comprehensive Metabolic Panel (11/28/21 10:24) Hs C Reactive Protein (11/28/21 10:24) Fibrin Degradation Products (11/28/21 10:24) Lipase (11/28/21 10:24) Ketorolac Injection (Toradol Injection) (11/28/21 11:00) Ed Iv/Invasive Line Start (11/28/21 11:39) Ns Iv 1000 Ml (Sodium Chloride 0.9%) (11/28/21 11:45) Troponin I [place] (11/28/21 11:39) Ct Angio Chest W (11/28/21 11:39) Methylprednisolone Sod Succ (Solu-Medrol (11/28/21 12:00) Loratadine Tablet (Claritin Tablet) (11/28/21 12:00) Diphenhydramine Injection (Benadryl Inje (11/28/21 12:00) Iohexol Injection (Omnipaque 350 Mg/Ml 1 (11/28/21 12:00) Received Contrast (Hold Metformin- Contr (11/28/21 12:00) Sodium Chloride Flush (Catheter Flush Sy (11/28/21 12:00) Ns (Ivpb) (Sodium Chloride 0.9% Ivpb Bag (11/28/21 12:00) Medications Given in ED Current Medications Medications Dose Ordered Sig/Veronika Route Start Time Stop Time Status Last Admin Dose Admin Diphenhydramine HCl 25 mg ONCE ONCE IVP 11/28/21 12:00 11/28/21 12:01 DC 11/28/21 12:07 25 MG Iohexol 100 ml ONCE ONCE IV 11/28/21 12:00 11/28/21 13:48 DC 11/28/21 12:40 100 ML Ketorolac Tromethamine 30 mg ONCE ONCE IVP 11/28/21 11:00 11/28/21 11:01 DC 11/28/21 10:54 30 MG Loratadine 10 mg ONCE ONCE PO 11/28/21 12:00 11/28/21 12:01 DC 11/28/21 12:05 10 MG Methylprednisolone Sodium Succinate 125 mg ONCE ONCE IVP 11/28/21 12:00 11/28/21 12:01 DC 11/28/21 12:06 125 MG Sodium Chloride 100 ml ONCE ONCE IV 11/28/21 12:00 11/28/21 13:48 DC 11/28/21 12:41 80 ML Vital Signs/I&O 11/28/21 09:58 Temp 36.8 Pulse 83 Resp 18 B/P (MAP) 120/79 (93) Pulse Ox 98 O2 Delivery Room Air Blood Pressure Mean: 93 Progress Progress Note #1: Time: 10:31 Progress Note Toradol for her chest Turnis and headache. To rule out blood clots we will get a D-dimer. Repeat flu and Covid swab. Chest x-ray and basic labs with inflammatory markers. The patient states she has antibiotics at the pharmacy for her UTI so we will not address that at this time Progress Note #2: Time: 11:54 Progress Note The patient states she gets hives with contrast. We did discuss doing a VQ scan versus pretreating and doing a CT scan today. We discussed the risks, benefits and alternatives for both. The patient would like to proceed with pretreatment and CT angio today. Her headache is better. Initial ECG Impression Date: Nov 28, 2021 Initial ECG Impression Time: 09:59 Initial ECG Rate: 72 Initial ECG Rhythm: Normal Sinus Initial ECG Intervals: QT (472) Initial ECG Impression: Normal, Nonspecific Changes Comment Normal sinus rhythm with no clinically relevant ST elevation or depression. Borderline prolonged QTC Diagnostic Imaging Diagonstic Imaging: Xray Plain Films/CT/US/NM/MRI: chest Comments [facility], [place] NAME: LENNY OROSCO [facility] REC#: [id number] PT STATUS: REG ER : 1960 PHYSICIAN: LAUREL SHEN MD ADMIT DATE: 11/28/21/ER Signed Date of Exam:11/28/21 CHEST 1 VIEW, AP/PA ONLY INDICATION: Shortness of air with chest pain. EXAMINATION: Chest, 11/28/2021. COMPARISON: 05/13/2021. FINDINGS: The cardiomediastinal silhouette is unremarkable. The pulmonary vasculature is within normal limits. The lungs and pleural spaces are clear. IMPRESSION: No evidence of an acute cardiopulmonary process. Dictated by: Dictated on workstation # [id number] Dict: 11/28/21 1058 Trans: 11/28/21 1203 [id number] Interpreted by: GAEL MICHAELS MD Electronically signed by: GAEL MICHAELS MD 11/28/21 1203 Reviewed: Reviewed by De Diagonstic Imaging: CT (angio) Plain Films/CT/US/NM/MRI: chest Comments [facility] [place] [place] NAME: LENNY OROSCO [facility] REC#: [id number] PT STATUS: REG ER : 1960 PHYSICIAN: LAUREL SHEN MD ADMIT DATE: 11/28/21/ER Draft Date of Exam:11/28/21 CT ANGIO CHEST W PROCEDURE: CT angiography of the chest with contrast. TECHNIQUE: Multiple contiguous axial images were obtained through the chest after uneventful bolus administration of intravenous contrast. 3D reconstructed CTA MIP acquisitions were also performed. Auto Exposure Controls were utilized during the CT exam to meet ALARA standards for radiation dose reduction. INDICATION: Shortness of breath. Evaluation of pulmonary arterial system is without evidence of thromboembolism. No filling defects are seen within central, lobar segmental branches. The thoracic aorta is normal caliber. No dissection is seen. There is no pericardial or pleural fluid identified. No pulmonary infiltrates, nodules or masses are seen. Upper abdomen is unremarkable. IMPRESSION: 1. No evidence of pulmonary embolism or acute aortic syndrome. Dictated on workstation # [id number] Dict: 11/28/21 1254 Trans: 11/28/21 1306 CVB [id number] Interpreted by: LOREN FRANCOIS MD Electronically signed by: Reviewed: Reviewed by Me Departure Impression Primary Impression: Pleurisy Disposition: 01 HOME, SELF-CARE Condition: Stable Departure-Patient Inst. Decision time for Depature: 15:32 Referrals: NICKY THOMPSON MD (PCP/Family) Primary Care Physician SCOTT MCDONOUGH MD [facility] Patient Instructions: Pleuritic Chest Pain (DC) Add. Discharge Instructions: We could not find nothing dangerous about your chest pain today. I would santy mmend you follow-up with your heart doctor by calling for an appointment within the next week or 2. Tylenol and ibuprofen would be recommended. Prednisone 2 tablets daily until gone. Follow-up with your primary care doctor if your symptoms persist for more than a week or 2. All discharge instructions reviewed with patient and/or family. Voiced understanding. Scripts Prednisone (Prednisone) 20 Mg Tab 40 MG PO DAILY for 5 Days, #10 TAB 0 Refills Prov: LAUREL SHEN 11/28/21 Copy Copies To 1: SCOTT MCDONOUGH MD [facility] LAUREL SHEN Nov 28, 2021 10:31
[2021-11-28 10:41] LABS: ALBUMIN 3.8 GM/DL (3.2-4.5)
[2021-11-28 10:42] LABS: CHLORIDE 106 MMOL/L (98-107); POTASSIUM 3.8 MMOL/L (3.6-5.0); SODIUM 138 MMOL/L (135-145)
[2021-11-28 10:43] LABS: CALCIUM 9.2 MG/DL (8.5-10.1)
[2021-11-28 10:44] LABS: GLUCOSE 201 MG/DL (70-105); TOTAL PROTEIN 7.1 GM/DL (6.4-8.2)
[2021-11-28 10:45] LABS: CARBON DIOXIDE 20 MMOL/L (21-32)
[2021-11-28 10:46] LABS: BILIRUBIN,TOTAL 0.4 MG/DL (0.1-1.0)
[2021-11-28 10:47] LABS: ALKALINE PHOSPHATASE 88 U/L (40-136)
[2021-11-28 10:48] LABS: CREATININE SERUM 0.78 MG/DL (0.60-1.30); GFR ESTIMATED 88
[2021-11-28 10:49] LABS: BUN/CREATININE RATIO 13
[2021-11-28 10:51] LABS: ALANINE AMINOTRANSFERASE 25 U/L (0-55); LIPASE 51 U/L (8-78)
[2021-11-28] MEDS ORDERED: KETOROLAC 30 MG/ML VIAL IVP ONE (11:00)
--- NOTE | 2021-11-28 11:01 | Diagnostic Imaging Report ---
INDICATION: Shortness of air with chest pain. EXAMINATION: Chest, 11/28/2021. COMPARISON: 05/13/2021. FINDINGS: The cardiomediastinal silhouette is unremarkable. The pulmonary vasculature is within normal limits. The lungs and pleural spaces are clear. IMPRESSION: No evidence of an acute cardiopulmonary process. Dictated by: Dictated on workstation # [id number]
[2021-11-28] MEDS ORDERED: NS IV 1000 ML 1,000 ML IV SCH (11:45)
[2021-11-28] MEDS ORDERED: CATHETER FLUSH 10 ML SYR IV PRN (12:00)
[2021-11-28] MEDS ORDERED: IOHEXOL 350 MG/ML 100 ML (OMNIPAQUE 350) VIAL IV ONE (12:00)
[2021-11-28] MEDS ORDERED: LORATADINE (CLARITIN) 10 MG TAB PO ONE (12:00)
[2021-11-28] MEDS ORDERED: NS 100 ML (IVPB) BAG IV ONE (12:00)
[2021-11-28] MEDS ORDERED: diphenhydrAMINE 50 MG/ML INJ (BENADRYL) IVP ONE (12:00)
[2021-11-28] MEDS ORDERED: HOLD METFORMIN - RECEIVED CONTRAST 20 ML VIAL IV SCH (12:00)
[2021-11-28] MEDS ORDERED: methylPREDNISolone 125 MG (Solu-MEDROL) VIAL IVP ONE (12:00)
--- NOTE | 2021-11-28 13:07 | Diagnostic Imaging Report ---
PROCEDURE: CT angiography of the chest with contrast. TECHNIQUE: Multiple contiguous axial images were obtained through the chest after uneventful bolus administration of intravenous contrast. 3D reconstructed CTA MIP acquisitions were also performed. Auto Exposure Controls were utilized during the CT exam to meet ALARA standards for radiation dose reduction. INDICATION: Shortness of breath. Evaluation of pulmonary arterial system is without evidence of thromboembolism. No filling defects are seen within central, lobar segmental branches. The thoracic aorta is normal caliber. No dissection is seen. There is no pericardial or pleural fluid identified. No pulmonary infiltrates, nodules or masses are seen. Upper abdomen is unremarkable. IMPRESSION: 1. No evidence of pulmonary embolism or acute aortic syndrome. Dictated by: Dictated on workstation # [id number]
[2021-11-28] MEDS ORDERED: PRD20T PO (15:36)
== END 2021-11-28 15:56 | disposition home or self-care (01) ==
LOC: EDUNIT# 09:56 → ER 09:57
DX: R09.1 Pleurisy (principal); Z20.822 Contact with and (suspected) exposure to COVID-19
CPT/HCPCS: 36415; 71045; 71275; 80053; 83690; 84484; 85025; 85379; 86141; 87636; 93005

== ENCOUNTER → 2021-12-06 | Outpatient (CLI) | payer MEDICARE, MEDICAID ==
[2021-12-06 10:27] LABS: BASOPHILS % (AUTO) 0 % (0-10); EOSINOPHILS # (AUTO) 0.3 10^3/uL (0.0-0.3); EOSINOPHILS % (AUTO) 3 % (0-10); HEMATOCRIT 39 % (35-52); HEMOGLOBIN 12.5 g/dL (11.5-16.0); LYMPHOCYTES # (AUTO) 2.1 10^3/uL (1.0-4.0); LYMPHOCYTES % (AUTO) 25 % (12-44); MEAN CORPUSCULAR HEMOGLOBIN 27 pg (25-34); MEAN CORPUSCULAR HGB CONC 32 g/dL (32-36); MEAN CORPUSCULAR VOLUME 83 fL (80-99); MEAN PLATELET VOLUME 11.6 fL (9.0-12.2); MONOCYTES # (AUTO) 0.4 10^3/uL (0.0-1.0); MONOCYTES % (AUTO) 5 % (0-12); NEUTROPHILS # (AUTO) 5.6 10^3/uL (1.8-7.8); NEUTROPHILS % (AUTO) 66 % (42-75); PLATELET COUNT 189 10^3/uL (130-400); WHITE BLOOD COUNT 8.5 10^3/uL (4.3-11.0)
[2021-12-06 10:46] LABS: BILIRUBIN,TOTAL 0.4 MG/DL (0.1-1.0); CALCIUM 9.2 MG/DL (8.5-10.1); CREATININE SERUM 0.84 MG/DL (0.60-1.30); POTASSIUM 4.1 MMOL/L (3.6-5.0); TOTAL PROTEIN 7.4 GM/DL (6.4-8.2)
[2021-12-06 10:54] LABS: ERYTHROCYTE SEDIMENTATION RATE 31 MM/HR (0-30)
[2021-12-06 11:05] LABS: INR 0.9 (0.8-1.4); PROTHROMBIN TIME PATIENT 12.6 SEC (12.2-14.7)
[2021-12-06 11:09] LABS: BILIRUBIN,URINE NEGATIVE (NEGATIVE); CLARITY,URINE CLEAR; COLOR,URINE YELLOW; GLUCOSE, URINE (UA) 1+ (NEGATIVE); KETONES,URINE NEGATIVE (NEGATIVE); LEUKOCYTE ESTERASE ,URINE NEGATIVE (NEGATIVE); NITRITE,URINE NEGATIVE (NEGATIVE); PH,URINE 5.5 (5-9); PROTEIN,URINE NEGATIVE (NEGATIVE)
[2021-12-06 11:47] LABS: BACTERIA,URINE NEGATIVE /HPF; WBC,URINE 0-2 /HPF
== END ==
LOC: PREOP 08:31
PROVIDERS: ATTEND Orthopaedic Surgery
DX: Z01.812 Encounter for preprocedural laboratory examination (principal); M17.11 Unilateral primary osteoarthritis, right knee
CPT/HCPCS: 36415; 80053; 81000; 85025; 85610; 85652; 86850; 86900; 86901; 87081

== ENCOUNTER 2022-03-25 16:47 | Emergency (ER) | payer MEDICARE, MEDICAID ==
[~2022-03-25] VITALS: Ht 175.2 cm; Wt 120.0 kg
[~2022-03-25 16:47] MED LIST changes: +ENXP30I.3 SC; +MULT-1137 PO; +OMEP20TA56 PO; -OMEP20TA7 PO; +SENN1TAB76 PO
[2022-03-25] MEDS ORDERED: ASPIRIN 81 MG CHEW (CHILDREN'S ASA) ONE (17:37)
[2022-03-25 17:42] LABS: BASOPHILS % (AUTO) 0 % (0-10); EOSINOPHILS # (AUTO) 0.1 10^3/uL (0.0-0.3); EOSINOPHILS % (AUTO) 2 % (0-10); HEMATOCRIT 40 % (35-52); HEMOGLOBIN 12.6 g/dL (11.5-16.0); LYMPHOCYTES # (AUTO) 2.8 10^3/uL (1.0-4.0); LYMPHOCYTES % (AUTO) 30 % (12-44); MEAN CORPUSCULAR HEMOGLOBIN 26 pg (25-34); MEAN CORPUSCULAR HGB CONC 32 g/dL (32-36); MEAN CORPUSCULAR VOLUME 81 fL (80-99); MEAN PLATELET VOLUME 12.2 fL (9.0-12.2); MONOCYTES # (AUTO) 0.5 10^3/uL (0.0-1.0); MONOCYTES % (AUTO) 5 % (0-12); NEUTROPHILS # (AUTO) 5.9 10^3/uL (1.8-7.8); NEUTROPHILS % (AUTO) 63 % (42-75); PLATELET COUNT 195 10^3/uL (130-400); WHITE BLOOD COUNT 9.4 10^3/uL (4.3-11.0)
[2022-03-25] MEDS ORDERED: ASPIRIN 81 MG CHEW (CHILDREN'S ASA) PO ONE (17:45)
--- NOTE | 2022-03-25 17:58 | Diagnostic Imaging Report ---
INDICATION: Chest pain. COMPARISON: Comparison is made with the prior study from November 28, 2021, and prior CTA from December 18, 2021. FINDINGS: The lungs demonstrate no findings of consolidation. There is no large effusion. Heart size and mediastinal contours appear unchanged from the prior exam. The central pulmonary vascularity appears appropriate without current evidence of edema or failure. There is no acute osseous abnormality evident. IMPRESSION: Stable appearance of the chest. No acute cardiopulmonary process evident. Dictated by: Dictated on workstation # [id number]
--- NOTE | 2022-03-25 18:04 | ED Cough/URI ---
General Chief Complaint: COVID19 Suspect/Confirmed Stated Complaint: CONGESTION, WEAKNESS,EXPOSURE TO COVID, FEVER Nursing Triage Note: STARTED HAVING CHEST PAIN THIS AFTERNOON AND BEGAN FEELING ACHY AND SICK WHILE SHOPPING AT THE [facility]. C/O NAUSEA, COUGH RUNNY NOSE AND HEADACHE WELL History of Present Illness Date Seen by Provider: Mar 25, 2022 Time Seen by Provider: 17:15 Initial Comments 61-year-old female reports respiratory congestion and tightness in her chest that began this morning. She received notice from a friend that she was COVID-positive and she has been exposed to this person in the last few days. She has not received the COVID-vaccine. Her last positive COVID test was May 2021. She has had COVID 1 other time previous to that. Timing/Duration: this morning Severity/Quality: moderate Prior Episodes/Possible Cause: frequent episodes Associated Symptoms: cough, muscle aches, nasal congestion Allergies and Home Medications Allergies Coded Allergies: nickel (Verified Allergy, Intermediate, RASH, 03/25/22) doxycycline (Verified Allergy, Mild, HIVES, 03/25/22) Iodinated Contrast Media (Verified Allergy, Unknown, 03/25/22) cobalt (Verified Allergy, Unknown, Hives, 03/25/22) penicillin (Verified Allergy, Unknown, HAS RECEIVED ROCEPHIN, 03/25/22) rash Uncoded Allergies: hexachloride (Allergy, Unknown, Hives, 06/24/19) Patient Home Medication List Home Medication List Reviewed: Yes Albuterol Sulfate (Proair Hfa) 1 Puff Puff, 2 PUFF IH Q4H PRN for WHEEZING Prescribed by: KRISTA MCKEON on 12/17/21713 Enoxaparin Sodium (Lovenox) 30 Mg/0.3 Ml Syringe, 30 MG SC Q12H Prescribed by: KRISTA MCKEON on 12/17/21713 Fluoxetine HCl (Fluoxetine HCl) 20 Mg Capsule, 40 MG PO DAILY Prescribed by: KRISTA MCKEON on 12/17/21713 Fluticasone/Vilanterol (Breo Ellipta 200-25 Mcg INH) 1 Each Blst.w.dev, 1 EACH IH DAILY Prescribed by: KRISTA MCKEON on 12/17/21713 Ibuprofen (Ibuprofen) 200 Mg Tablet, 600 MG PO Q6H PRN for PAIN-MILD (1-4), (Reported) Entered as Reported by: ELIU WHALEY on 05/14/21 1517 Metformin HCl (Metformin HCl) 1,000 Mg Tablet, 1,000 MG PO BID Prescribed by: KRISTA MCKEON on 12/17/21713 Multivitamin/Iron/Folic Acid (Tab-A-Scottie Multivit with Iron) 1 Each Tablet, 1 EA PO DAILY@0700 Prescribed by: KRISTA MCKEON on 12/17/21713 Oxycodone HCl/Acetaminophen (Percocet 5-325 mg Tablet) 1 Each Tablet, 1 TAB PO Q2HR PRN for PAIN-MODERATE (5-7) Prescribed by: KRISTA MCKEON on 12/17/21714 Pantoprazole Sodium (Pantoprazole Sodium) 40 Mg Tablet.dr, 40 MG PO DAILY Prescribed by: KRISTA MCKEON on 12/17/21713 Pregabalin (Lyrica) 75 Mg Capsule, 75 MG PO BID Prescribed by: KRISTA MCKEON on 12/17/21714 Sennosides/Docusate Sodium (Stool Softener-Laxative Tablet) 1 Each Tablet, 2 EA PO BID Prescribed by: KRISTA MCKEON on 12/17/21713 Review of Systems Review of Systems Constitutional: see HPI, malaise Respiratory: see HPI, cough, dyspnea on exertion Gastrointestinal: no symptoms reported, see HPI All Other Systems Reviewed Negative Unless Noted: Yes Past Kbtsvog-Cshylw-Ormviy Hx Patient Social History Tobacco Use?: No Use of E-Cig and/or Vaping dev: No Substance use?: No Alcohol Use?: Yes Alcohol Frequency: Once in a while Pt feels they are or have been: No Immunizations Up To Date Tetanus Booster (TDap): Unknown PED Vaccines UTD: No Influenza Vaccine Up-to-Date: Yes; Up-to-Date First/Initial COVID19 Vaccinat: NOT VACCINATED Second COVID19 Vaccination Abdelrahman: NOT VACCINATED Third COVID19 Vaccination Date: NOT VACCINATED Seasonal Allergies Seasonal Allergies: Yes Past Medical History Surgery/Hospitalization HX: RIGHT KNEE SCOPE 12/27/20 AND 04/25/[address] 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, 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 Sexually Transmitted Disease: No HIV/AIDS: No Genitourinary: Yes Kidney Infection, Bladder Infection, UTI-Chronic Gastrointestinal: Yes (INFLAMATION IN COLON, VENTRAL HERNIA) Abdominal Hernia, Gastroesophageal Reflux, Chronic Constipation, Chronic Diarrhea, Irritable Bowel Musculoskeletal: Yes (RESTLESS LEG SYNDROME) Arthritis, Fibromyalgia, Chronic Back Pain Endocrine: Yes (OBESITY) Diabetes, Non-Insulin dep HEENT: Yes (GLASSES) Loss of Vision: Bilateral Hearing Impairment: Denies Cancer: No Psychosocial: Yes Sleep Difficulties, Anxiety, Bipolar, Depression Integumentary: No Blood Disorders: No Adverse Reaction/Blood Tranf: No (N/A) Family Medical History Reviewed Nursing Family Hx Arthritis 19 MOTHER, Onset:Unknown Asthma 19 FATHER, Onset:Unknown Cataracts 19 MOTHER, Onset:Unknown Diabetes mellitus 19 MOTHER, Onset:Unknown FH: COPD (chronic obstructive pulmonary disease) 19 FATHER, Onset:Unknown Hypercholesterolemia 19 MOTHER MS (multiple sclerosis) G8 SISTER, Onset:Unknown Physical Exam Vital Signs - First Documented 03/25/22 17:10 Temp 37.0 Pulse 75 Resp 14 B/P (MAP) 153/86 (108) Pulse Ox 96 Capillary Refill : Less Than 3 Seconds Height: 5'9.00" Weight: 288lbs. 0.0oz. 130.632322ir; 39.00 BMI Method:Stated General Appearance: WD/WN, no apparent distress HEENT: PERRL/EOMI, normal ENT inspection, TMs normal, pharynx normal Neck: non-tender, full range of motion, supple, normal inspection Respiratory: chest non-tender, lungs clear, normal breath sounds Cardiovascular: normal peripheral pulses, regular rate, rhythm Gastrointestinal: normal bowel sounds, non tender, soft Extremities: normal range of motion, non-tender, normal inspection, no pedal edema, no calf tenderness, normal capillary refill Neurologic/Psychiatric: no motor/sensory deficits, alert, normal mood/affect, oriented x 3 Skin: normal color, warm/dry Progress/Results/Core Measures Suspected Sepsis SIRS Temperature: Pulse: 75 Respiratory Rate: 14 Laboratory Tests 03/25/22 17:30: White Blood Count 9.4 Blood Pressure 153 /86 Mean: 108 Laboratory Tests 03/25/22 17:30: Creatinine 0.86, INR Comment 0.9, Platelet Count 195, Total Bilirubin 0.4 Results/Orders Lab Results Laboratory Tests Test 03/25/22 17:10 03/25/22 17:30 Range/Units Influenza Type A (RT-PCR) Not Detected Not Detecte Influenza Type B (RT-PCR) Not Detected Not Detecte SARS-CoV-2 RNA (RT-PCR) Detected H Not Detecte White Blood Count 9.4 4.3-11.0 10^3/uL Red Blood Count 4.85 3.80-5.11 10^6/uL Hemoglobin 12.6 11.5-16.0 g/dL Hematocrit 40 35-52 % Mean Corpuscular Volume 81 80-99 fL Mean Corpuscular Hemoglobin 26 25-34 pg Mean Corpuscular Hemoglobin Concent 32 32-36 g/dL Red Cell Distribution Width 14.7 H 10.0-14.5 % Platelet Count 195 130-400 10^3/uL Mean Platelet Volume 12.2 9.0-12.2 fL Immature Granulocyte % (Auto) 0 % Neutrophils (%) (Auto) 63 42-75 % Lymphocytes (%) (Auto) 30 12-44 % Monocytes (%) (Auto) 5 0-12 % Eosinophils (%) (Auto) 2 0-10 % Basophils (%) (Auto) 0 0-10 % Neutrophils # (Auto) 5.9 1.8-7.8 10^3/uL Lymphocytes # (Auto) 2.8 1.0-4.0 10^3/uL Monocytes # (Auto) 0.5 0.0-1.0 10^3/uL Eosinophils # (Auto) 0.1 0.0-0.3 10^3/uL Basophils # (Auto) 0.0 0.0-0.1 10^3/uL Immature Granulocyte # (Auto) 0.0 0.0-0.1 10^3/uL Prothrombin Time 12.8 12.2-14.7 SEC INR Comment 0.9 0.8-1.4 Activated Partial Thromboplast Time 22 L 24-35 SEC Sodium Level 137 135-145 MMOL/L Potassium Level 3.8 3.6-5.0 MMOL/L Chloride Level 104 98-107 MMOL/L Carbon Dioxide Level 22 21-32 MMOL/L Anion Gap 11 5-14 MMOL/L Blood Urea Nitrogen 12 7-18 MG/DL Creatinine 0.86 0.60-1.30 MG/DL Estimat Glomerular Filtration Rate 78 BUN/Creatinine Ratio 14 Glucose Level 169 H 70-105 MG/DL Calcium Level 9.5 8.5-10.1 MG/DL Corrected Calcium 9.5 8.5-10.1 MG/DL Magnesium Level 1.7 1.6-2.4 MG/DL Total Bilirubin 0.4 0.1-1.0 MG/DL Aspartate Amino Transf (AST/SGOT) 19 5-34 U/L Alanine Aminotransferase (ALT/SGPT) 20 0-55 U/L Alkaline Phosphatase 97 40-136 U/L Myoglobin 28.4 10.0-92.0 NG/ML Troponin I < 0.028 <0.028 NG/ML Total Protein 7.8 6.4-8.2 GM/DL Albumin 4.0 3.2-4.5 GM/DL My Orders Orders - OLIVA STALEY 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 Influenza A And B By Pcr (03/25/22 16:52) Covid 19 Inhouse Test (03/25/22 16:52) Cbc With Automated Diff (03/25/22 17:34) Magnesium (03/25/22 17:34) Chest 1 View, Ap/Pa Only (03/25/22 17:34) Ekg Tracing (03/25/22 17:34) Comprehensive Metabolic Panel (03/25/22 17:34) Myoglobin Serum (03/25/22 17:34) Protime With Inr (03/25/22 17:34) Partial Thromboplastin Time (03/25/22 17:34) O2 (03/25/22 17:34) Monitor-Rhythm Ecg Trace Only (03/25/22 17:34) Ed Iv/Invasive Line Start (03/25/22 17:34) Troponin I [place] (03/25/22 17:34) Aspirin Chewable Tablet (Baby Aspirin Ch (03/25/22 17:45) Aspirin Chewable Tablet (Baby Aspirin Ch (03/25/22 17:37) Bebtelovimab (Bebtelovimab) (03/25/22 18:30) Nursing Communication (Order) (03/25/22 18:29) Ibuprofen Tablet (Motrin Tablet) (03/25/22 19:12) Diphenhydramine Tablet (Benadryl Tablet) (03/25/22 19:39) Prochlorperazine Injection (Compazine In (03/25/22 19:39) Medications Given in ED Current Medications Medications Dose Ordered Sig/Veronika Route Start Time Stop Time Status Last Admin Dose Admin Aspirin 324 mg ONCE ONCE PO 03/25/22 17:45 03/25/22 17:46 DC 03/25/22 17:43 324 MG Bebtelovimab 175 mg ONCE ONCE IV 03/25/22 18:30 03/25/22 18:31 DC 03/25/22 19:30 175 MG Vital Signs/I&O 03/25/22 03/25/22 17:10 20:18 Temp 37.0 Pulse 75 73 Resp 14 18 B/P (MAP) 153/86 (108) 111/97 Pulse Ox 96 93 Capillary Refill : Less Than 3 Seconds Blood Pressure Mean: 108 Progress Note : Time: 17:15 Progress Note Patient seen and evaluated, will obtain labs, COVID and flu testing, chest x- ray, EKG and aspirin. 1830 patient positive for COVID. Discussed options and treatment with the patient, she is agreeable to Bebtelovimab infusion for COVID. Ibuprofen 800 mg for general discomfort. 1900 patient agreeable to monitoring after infusion. Understands she must remain here for 1 hour. She has no other complaints at this time. 1999 patient tolerated the infusion, no side effects. Discharge instructions and return precautions reviewed with her. ECG Initial ECG Impression Date: Mar 25, 2022 Initial ECG Impression Time: 17:42 Initial ECG Rate: 75 Initial ECG Rhythm: Normal Sinus Initial ECG Intervals: Normal Initial ECG Intervals GA 169, QRS D 95, QT 392, QTc 420. [place] P 64, RR 23, T 48. Initial ECG Impression: Normal Initial ECG Comparisson: Unchanged Diagnostic Imaging Diagonstic Imaging: Xray Plain Films/CT/US/NM/MRI: chest Comments NAME: ANA LUISALENNY GUTHRIE MED REC#: [id number] PT STATUS: REG ER : 1960 PHYSICIAN: OLIVA STALEY ADMIT DATE: 03/25/22/ER Draft Date of Exam:03/25/22 CHEST 1 VIEW, AP/PA ONLY INDICATION: Chest pain. COMPARISON: Comparison is made with the prior study from November 28, 2021, and prior CTA from December 18, 2021. FINDINGS: The lungs demonstrate no findings of consolidation. There is no large effusion. Heart size and mediastinal contours appear unchanged from the prior exam. The central pulmonary vascularity appears appropriate without current evidence of edema or failure. There is no acute osseous abnormality evident. IMPRESSION: Stable appearance of the chest. No acute cardiopulmonary process evident. Dictated on workstation # [id number] Dict: 03/25/221750 Trans: 03/25/221757 [id number] [id number] Interpreted by: KIANA BUI MD Electronically signed by: Departure Impression Primary Impression: COVID-19 Disposition: 01 HOME, SELF-CARE Condition: Stable Departure-Patient Inst. Decision time for Depature: 20:15 Referrals: NICKY THOMPSON MD (PCP/Family) Primary Care Physician Patient Instructions: COVID-19 (DC) Add. Discharge Instructions: Take Aspirin 81 mg daily. Take an immune support vitamin. Drink water, 16 oz every 2 hours, while awake. Walk frequently. Use Albuterol Inhaler, every 4-6 hours for Shortness of Breath. Call your primary care provider, if symptoms are not improving or worsen. Return to the Emergency Dept, for new urgent health problems All discharge instructions reviewed with patient and/or family. Voiced understanding. OLIVA STALEY Mar 25, 2022 18:04
[2022-03-25 18:05] LABS: POTASSIUM 3.8 MMOL/L (3.6-5.0)
[2022-03-25 18:06] LABS: INR 0.9 (0.8-1.4); PROTHROMBIN TIME PATIENT 12.8 SEC (12.2-14.7)
[2022-03-25 18:07] LABS: CALCIUM 9.5 MG/DL (8.5-10.1)
[2022-03-25 18:08] LABS: TOTAL PROTEIN 7.8 GM/DL (6.4-8.2)
[2022-03-25 18:10] LABS: BILIRUBIN,TOTAL 0.4 MG/DL (0.1-1.0)
[2022-03-25 18:11] LABS: CREATININE SERUM 0.86 MG/DL (0.60-1.30)
[2022-03-25 18:15] LABS: MAGNESIUM 1.7 MG/DL (1.6-2.4)
[2022-03-25] MEDS ORDERED: BEBTELOVIMAB 175 MG/2 ML VIAL IV ONE (18:30)
[2022-03-25] MEDS ORDERED: IBUPROFEN 800 MG (MOTRIN) TAB PO STA (19:12)
[2022-03-25] MEDS ORDERED: PROCHLORPERAZINE 10 MG/2ML INJ (COMPAZINE) IV STA (19:39)
[2022-03-25] MEDS ORDERED: diphenhydrAMINE 25 MG TAB (BENADRYL) PO STA (19:39)
[2022-03-25 20:18] VITALS: BP 111/97
== END 2022-03-25 20:18 | disposition home or self-care (01) ==
LOC: EDUNIT# 16:47 → ER 16:48
DX: U07.1 COVID-19 (principal); G47.30 Sleep apnea, unspecified; E66.9 Obesity, unspecified; Z68.39 Body mass index [BMI] 39.0-39.9, adult; Z99.89 Dependence on other enabling machines and devices; Z28.310 Unvaccinated for COVID-19
CPT/HCPCS: 36415; 71045; 80053; 83735; 83874; 84484; 85025; 85610; 85730; 87636; 93005; 93041

== ENCOUNTER 2022-06-10 05:52 | Emergency (ER) | payer MEDICARE, MEDICAID ==
[~2022-06-10] VITALS: Ht 175.2 cm; Wt 122.4 kg
[~2022-06-10 05:52] MED LIST changes: -BALO40TA PO; +BALO40TA4 PO; +LEVO-55 PO; -LEVO500T81 PO; -NSTR15C TP; +NYST15CR36 TP
--- NOTE | 2022-06-10 06:25 | ED Back Pain ---
General Chief Complaint: Back Problems Stated Complaint: BACK & RT LEG PAIN Source of Information: Patient Exam Limitations: No Limitations History of Present Illness Date Seen by Provider: Jun 10, 2022 Time Seen by Provider: 06:10 Initial Comments Patient is a 61-year-old female who presents to the emergency department today with a chief complaint of low back pain with pain radiating down her right buttock into her right thigh down to her knee. She had a knee replacement by Dr. Meredith a few months ago. She states its never been "right" since that time. She saw him last week and he did a "blood test" but she is not sure for what to evaluate. She has also had back surgery with Dr. Judge 3 years ago at [facility]. She has not had any issues with her back for 3 years. She states her pain woke her up in the middle of the night. She has been taking ibuprofen 800 mg 3 times a day without any relief of symptoms. She has been using some "icy hot" without any relief. She states no other medications. She is a diabetic on metformin. She denies any numbness. She states the right leg feels "weak". She was able to drive herself to the hospital and ambulate into the department with the use of a cane. No recent illnesses. No loss of bowel or bladder function. No saddle anesthesia reported. Movement makes the pain worse in any direction. Nothing makes it any better. All other review of systems reviewed and negative except as stated. Location: Lumbar Spine (to right knee) Timing/Duration: 12 Hours Severity: Severe Pain/Injury Location: Back, Lower Extremity (right) Radiation: Buttocks (right leg), Upper Legs (right thigh) Method of Injury: Unknown Modifying Factors: Improves With Immobilization (mildly) Associated Symptoms: No numbness in legs/feet, No tingling in legs/feet, No sensory/motor loss; lower back pain; No loss of bladder control, No loss of bowel control Allergies and Home Medications Allergies Coded Allergies: nickel (Verified Allergy, Intermediate, RASH, 03/25/22) doxycycline (Verified Allergy, Mild, HIVES, 03/25/22) Iodinated Contrast Media (Verified Allergy, Unknown, 03/25/22) cobalt (Verified Allergy, Unknown, Hives, 03/25/22) penicillin (Verified Allergy, Unknown, HAS RECEIVED ROCEPHIN, 03/25/22) rash Uncoded Allergies: hexachloride (Allergy, Unknown, Hives, 06/24/19) Patient Home Medication List Home Medication List Reviewed: Yes Albuterol Sulfate (Proair Hfa) 1 Puff Puff, 2 PUFF IH Q4H PRN for WHEEZING Prescribed by: KRISTA MCKEON on 12/17/21713 Enoxaparin Sodium (Lovenox) 30 Mg/0.3 Ml Syringe, 30 MG SC Q12H Prescribed by: KRISTA MCKEON on 12/17/21713 Fluoxetine HCl (Fluoxetine HCl) 20 Mg Capsule, 40 MG PO DAILY Prescribed by: KRISTA MCKEON on 12/17/21713 Fluticasone/Vilanterol (Breo Ellipta 200-25 Mcg INH) 1 Each Blst.w.dev, 1 EACH IH DAILY Prescribed by: KRISTA MCKEON on 12/17/21713 Ibuprofen (Ibuprofen) 200 Mg Tablet, 600 MG PO Q6H PRN for PAIN-MILD (1-4), (Reported) Entered as Reported by: ELIU WHALEY on 05/14/21 1517 Metformin HCl (Metformin HCl) 1,000 Mg Tablet, 1,000 MG PO BID Prescribed by: KRISTA MCKEON on 12/17/21713 Multivitamin/Iron/Folic Acid (Tab-A-Scottie Multivit with Iron) 1 Each Tablet, 1 EA PO DAILY@0700 Prescribed by: KRISTA MCKEON on 12/17/21713 Oxycodone HCl/Acetaminophen (Percocet 5-325 mg Tablet) 1 Each Tablet, 1 TAB PO Q2HR PRN for PAIN-MODERATE (5-7) Prescribed by: KRISTA MCKEON on 12/17/21714 Pantoprazole Sodium (Pantoprazole Sodium) 40 Mg Tablet.dr, 40 MG PO DAILY Prescribed by: KRISTA MCKEON on 12/17/21713 Pregabalin (Lyrica) 75 Mg Capsule, 75 MG PO BID Prescribed by: KRISTA MCKEON on 12/17/21714 Sennosides/Docusate Sodium (Stool Softener-Laxative Tablet) 1 Each Tablet, 2 EA PO BID Prescribed by: KRISTA MCKEON on 12/17/21713 Review of Systems Constitutional: see HPI EENTM: no symptoms reported Respiratory: no symptoms reported Cardiovascular: no symptoms reported Gastrointestinal: no symptoms reported Genitourinary: no symptoms reported Musculoskeletal: back pain Skin: no symptoms reported All Other Systems Reviewed Negative Unless Noted: Yes Past Cquqxvf-Dmdoxi-Juyosf Hx Patient Social History Tobacco Use?: No Use of E-Cig and/or Vaping dev: No Substance use?: No Alcohol Use?: Yes Alcohol type: Beer, Hard Liquor, Wine Alcohol Frequency: Once in a while Pt feels they are or have been: No Immunizations Up To Date Tetanus Booster (TDap): Unknown PED Vaccines UTD: No Influenza Vaccine Up-to-Date: No; Not Current First/Initial COVID19 Vaccinat: NOT VACCINATED Second COVID19 Vaccination Abdelrahman: NOT VACCINATED Third COVID19 Vaccination Date: NOT VACCINATED Seasonal Allergies Seasonal Allergies: Yes Past Medical History Surgery/Hospitalization HX: RIGHT KNEE SCOPE 12/27/20 AND 04/25/[address] MEREDITH HYSTERECTOMY/BSO CHOLECYSTECTOMY HERNIA REPAIR BILATERAL CARPAL TUNNEL MULTIPLE LEFT KNEE SURGERIES, INCLUDING LEFT KNEE REPLACEMENT, LEFT SHOULDER SURGERY, BACK SURGERY, rIGHT KNEE REPLACEMENT Surgeries: Yes (bilat CTR, L KNEE x12, L shoulder, L TKR, back sx) Abdominal, Gallbladder, Hysterectomy, Joint Replacement, Oophorectomy, Orthopedic Respiratory: Yes (CPAP, COVID PNA) Asthma, Pneumonia, Sleep Apnea, COPD Currently Using CPAP: No Currently Using BIPAP: No Cardiac: Yes High Cholesterol Neurological: No Reproductive Disorders: Yes 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, 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 Sexually Transmitted Disease: No HIV/AIDS: No Genitourinary: Yes Kidney Infection, Bladder Infection, UTI-Chronic Gastrointestinal: Yes (INFLAMATION IN COLON, VENTRAL HERNIA) Abdominal Hernia, Gastroesophageal Reflux, Chronic Constipation, Chronic Diarrhea, Irritable Bowel Musculoskeletal: Yes (RESTLESS LEG SYNDROME) Arthritis, Fibromyalgia, Chronic Back Pain Endocrine: Yes (OBESITY) Diabetes, Non-Insulin dep HEENT: Yes (GLASSES) Loss of Vision: Bilateral Hearing Impairment: Denies Cancer: No Psychosocial: Yes Sleep Difficulties, Anxiety, Bipolar, Depression Integumentary: No Blood Disorders: No Adverse Reaction/Blood Tranf: No (N/A) Family Medical History Arthritis 19 MOTHER, Onset:Unknown Asthma 19 FATHER, Onset:Unknown Cataracts 19 MOTHER, Onset:Unknown Diabetes mellitus 19 MOTHER, Onset:Unknown FH: COPD (chronic obstructive pulmonary disease) 19 FATHER, Onset:Unknown Hypercholesterolemia 19 MOTHER MS (multiple sclerosis) G8 SISTER, Onset:Unknown Physical Exam Vital Signs Vital Signs - First Documented 06/10/22 06:06 Temp 36.1 Pulse 61 Resp 18 B/P (MAP) 147/104 (118) Pulse Ox 99 O2 Delivery Room Air Capillary Refill : Height, Weight, BMI Height: 5'9.00" Weight: 288lbs. 0.0oz. 130.331712rq; 39.00 BMI Method:Stated General Appearance: WD/WN, Anxious, Mild Distress HEENT: PERRL/EOMI Neck: Normal Inspection Cardiovascular: Regular Rate, Rhythm Respiratory: No Accessory Muscle Use, No Respiratory Distress Gastrointestinal: Non Tender, Soft Back: Normal Inspection, Other (2 healed cars noted on either side of the lower lumbar spine, vertical in orientation. no specific point tenderness. every where I touch from upper thoracic spine in the midline and paraspinous region elicits pain. no erythema or rashes. she is able to straight leg raise without radiation of pain - pain is worse on the right but does not radiate below the knees) Extremity: Normal Capillary Refill, Normal Inspection, Normal Range of Motion, No Calf Tenderness, No Pedal Edema Neurologic/Psychiatric: Alert, Oriented x3, No Motor/Sensory Deficits, Normal Mood/Affect, disk recoater II-XII Norm as Tested, Other (no sadlle anesthesia; normal strength and sensation in bilat LE; neg SLR right and left) Skin: Normal Color, Warm/Dry Progress/Results/Core Measures Results/Orders My Orders Orders - HEATHER SINGLETON MD Lidocaine 4% Patch (Salonpas 4% Patch) (06/10/22 09:00) Ketorolac Injection (Toradol Injection) (06/10/22 06:30) Orphenadrine Inj (Ed Only) (Norflex Inje (06/10/22 06:30) Lidocaine 4% Patch (Salonpas 4% Patch) (06/10/22 06:36) Medications Given in ED Current Medications Medications Dose Ordered Sig/Veronika Route Start Time Stop Time Status Last Admin Dose Admin Ketorolac Tromethamine 30 mg ONCE ONCE IM 06/10/22 06:30 06/10/22 06:31 DC 06/10/22 06:38 30 MG Orphenadrine Citrate 60 mg ONCE ONCE IM 06/10/22 06:30 06/10/22 06:31 DC 06/10/22 06:38 60 MG Vital Signs/I&O 06/10/22 06:06 Temp 36.1 Pulse 61 Resp 18 B/P (MAP) 147/104 (118) Pulse Ox 99 O2 Delivery Room Air Progress Progress Note : Time: 07:17 Progress Note She is feeling better after meds and pain patch. Will send home to follow up with Dr Meredith and Dr Huang at [facility]. She is comfortable with the plan of care - all questions are sought and answered. Departure Impression Primary Impression: Low back pain Qualified Codes: M54.41 - Lumbago with sciatica, right side Disposition: 01 HOME, SELF-CARE Condition: Improved Departure-Patient Inst. Decision time for Depature: 07:18 Referrals: NICKY THOMPSON MD (PCP/Family) Primary Care Physician KISHA MEREDITH MD Patient Instructions: Low Back Pain ED Add. Discharge Instructions: Continue the ibuprofen 600mg (3 pills) every 6-8 hours as needed for pain. Always eat with ibuprofen. Over the counter Lidocaine patches to your low back will also help. Follow packaging directions. Muscle relaxers as needed. These can make you sleepy. Hydrocodone 5mg every 6 hours with a little food - do not drive and take these. Please call Dr Meredith's office for follow up as well as Dr Huang at [facility]. Return to the Emergency Department for any new, concerning or emergent complaints. Scripts Hydrocodone/Acetaminophen (Hydrocodone-Acetamin 5-325 mg) 5 Mg-325 Mg Tablet 1 TAB PO Q6H PRN for PAIN-MODERATE (5-7), #10 TAB Prov: HEATHER SINGLETON MD 06/10/22 Methocarbamol (Methocarbamol) 500 Mg Tablet 1000 MG PO Q6-8HR PRN for back pain, #30 TAB Prov: HEATHER SINGLETON MD 06/10/22 Copy Copies To 1: KISHA MEREDITH MD Copies To 2: NICYK THOMPSON MD, KATHRYN M MD Jun 10, 2022 06:25
[2022-06-10] MEDS ORDERED: ORPHENADRINE 60 MG/2 ML (NORFLEX) AMP (ED ONLY) IM ONE (06:30)
[2022-06-10] MEDS ORDERED: KETOROLAC 30 MG/ML VIAL IM ONE (06:30)
[2022-06-10] MEDS ORDERED: LIDOCAINE 4% (SALONPAS) PATCH ONE (06:36)
[2022-06-10] MEDS ORDERED: METH-731 PO (07:22)
[2022-06-10] MEDS ORDERED: ACHD5005 PO (07:22)
[2022-06-10 07:32] VITALS: BP 151/80
[2022-06-10] MEDS ORDERED: LIDOCAINE 4% (SALONPAS) PATCH TOP SCH (09:00)
== END 2022-06-10 07:32 | disposition home or self-care (01) ==
LOC: EDUNIT# 05:52 → ER 05:55
DX: M54.50 Low back pain, unspecified (principal); E11.9 Type 2 diabetes mellitus without complications; E66.9 Obesity, unspecified; Z68.39 Body mass index [BMI] 39.0-39.9, adult; Z79.84 Long term (current) use of oral hypoglycemic drugs; Z98.890 Other specified postprocedural states; Z86.16 Personal history of COVID-19; Z28.310 Unvaccinated for COVID-19
CPT/HCPCS: 99281

== ENCOUNTER 2022-06-16 17:53 | Emergency (ER) | payer MEDICARE, MEDICAID ==
[~2022-06-16] VITALS: Ht 175 cm; Wt 117.0 kg
[~2022-06-16 17:53] MED LIST changes: +METH-731 PO
[2022-06-16 17:55] VITALS: BP 167/94
--- NOTE | 2022-06-16 18:22 | ED Back Pain ---
General Chief Complaint: Back Problems Stated Complaint: BACK PAIN Nursing Triage Note: ARRIVED VIA AMB USING CANE. CRYING. STATES SHE IS OUT OF HER VICODEN AND SHE CAN'T TAKE HER BACK AND KNEE PAIN ANYMORE. STATES SHE HAS AN APPT NEXT WEEK WITH HER DR. (YINA LEES APRN) History of Present Illness Date Seen by Provider: Jun 16, 2022 Time Seen by Provider: 18:17 Initial Comments Patient comes to the emergency department for worsening lower back and knee p ain. Was seen here recently and given Hydrocodone for pain. States that she just ran out of this medication today and she can't take the pain anymore. Has an appointment on with PCP but states that she can't tolerate the pain any longer. None of the pain issues are acute. They are chronic. Location: Lumbar Spine Timing/Duration: Other (chronic) Severity: Moderate Pain/Injury Location: Back, Lower Extremity Radiation: Buttocks, Lower Legs, Upper Legs Method of Injury: Unknown Modifying Factors: Worse With Movement; Improves With Pain Medication (hydrocodone) Associated Symptoms: muscle spasms; No fever, No numbness in legs/feet, No tingling in legs/feet (YINA LEES APRN) Allergies and Home Medications Allergies Coded Allergies: nickel (Verified Allergy, Intermediate, RASH, 03/25/22) doxycycline (Verified Allergy, Mild, HIVES, 03/25/22) Iodinated Contrast Media (Verified Allergy, Unknown, 03/25/22) cobalt (Verified Allergy, Unknown, Hives, 03/25/22) penicillin (Verified Allergy, Unknown, HAS RECEIVED ROCEPHIN, 03/25/22) rash Uncoded Allergies: hexachloride (Allergy, Unknown, Hives, 06/24/19) Patient Home Medication List Home Medication List Reviewed: Yes (YINA LEES APRN) Albuterol Sulfate (Proair Hfa) 1 Puff Puff, 2 PUFF IH Q4H PRN for WHEEZING Prescribed by: KRISTA MCKEON on 12/17/2114 Enoxaparin Sodium (Lovenox) 30 Mg/0.3 Ml Syringe, 30 MG SC Q12H Prescribed by: KRISTA MCKEON on 12/17/2114 Fluoxetine HCl (Fluoxetine HCl) 20 Mg Capsule, 40 MG PO DAILY Prescribed by: KRISTA MCKEON on 12/17/21713 Fluticasone/Vilanterol (Breo Ellipta 200-25 Mcg INH) 1 Each Blst.w.dev, 1 EACH IH DAILY Prescribed by: KRISTA MCKEON on 12/17/21713 Hydrocodone/Acetaminophen (Hydrocodone-Acetamin 5-325 mg) 5 Mg-325 Mg Tablet, 1 TAB PO Q6H PRN for PAIN-MODERATE (5-7) Prescribed by: HEATHER SINGLETON on 06/10/22721 Ibuprofen (Ibuprofen) 200 Mg Tablet, 600 MG PO Q6H PRN for PAIN-MILD (1-4), (Reported) Entered as Reported by: ELIU WHALEY on 05/14/211516 Metformin HCl (Metformin HCl) 1,000 Mg Tablet, 1,000 MG PO BID Prescribed by: KRISTA MCKEON on 12/17/21713 Methocarbamol (Methocarbamol) 500 Mg Tablet, 1,000 MG PO Q6-8HR PRN for back pain Prescribed by: HEATHER SINGLETON on 06/10/22721 Multivitamin/Iron/Folic Acid (Tab-A-Scottie Multivit with Iron) 1 Each Tablet, 1 EA PO DAILY@0700 Prescribed by: KRISTA MCKEON on 12/17/21713 Oxycodone HCl/Acetaminophen (Percocet 5-325 mg Tablet) 1 Each Tablet, 1 TAB PO Q2HR PRN for PAIN-MODERATE (5-7) Prescribed by: KRISTA MCKEON on 12/17/21714 Pantoprazole Sodium (Pantoprazole Sodium) 40 Mg Tablet.dr, 40 MG PO DAILY Prescribed by: KRISTA MCKEON on 12/17/21713 Pregabalin (Lyrica) 75 Mg Capsule, 75 MG PO BID Prescribed by: KRISTA MCKEON on 12/17/21714 Sennosides/Docusate Sodium (Stool Softener-Laxative Tablet) 1 Each Tablet, 2 EA PO BID Prescribed by: KRISTA MCKEON on 12/17/21713 Review of Systems Constitutional: No dizziness, No fever, No weakness Cardiovascular: No chest pain, No palpitations Gastrointestinal: No nausea, No vomiting Genitourinary: No dysuria, No frequency Musculoskeletal: back pain, muscle pain; No muscle twitching, No muscle weakness Skin: No pruritus, No rash (YINA LEES APRN) All Other Systems Reviewed Negative Unless Noted: Yes (YINA LEES APRN) Past Hryjivs-Bhogvi-Kqdfrk Hx Patient Social History Tobacco Use?: No Substance use?: No Alcohol Use?: No (YINA LEES APRN) Immunizations Up To Date Tetanus Booster (TDap): Unknown PED Vaccines UTD: No First/Initial COVID19 Vaccinat: NOT VACCINATED Second COVID19 Vaccination Abdelrahman: NOT VACCINATED Third COVID19 Vaccination Date: NOT VACCINATED (YINA LEES E NISREEN) Seasonal Allergies Seasonal Allergies: Yes (YINA LEES APRN) Past Medical History Surgery/Hospitalization HX: RIGHT KNEE SCOPE 12/27/20 AND 04/25/[address] 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, 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 Sexually Transmitted Disease: No HIV/AIDS: No Genitourinary: Yes Kidney Infection, Bladder Infection, UTI-Chronic Gastrointestinal: Yes (INFLAMATION IN COLON, VENTRAL HERNIA) Abdominal Hernia, Gastroesophageal Reflux, Chronic Constipation, Chronic Diarrhea, Irritable Bowel Musculoskeletal: Yes (RESTLESS LEG SYNDROME) Arthritis, Fibromyalgia, Chronic Back Pain Endocrine: Yes (OBESITY) Diabetes, Non-Insulin dep HEENT: Yes (GLASSES) Loss of Vision: Bilateral Hearing Impairment: Denies Cancer: No Psychosocial: Yes Sleep Difficulties, Anxiety, Bipolar, Depression Integumentary: No Blood Disorders: No Adverse Reaction/Blood Tranf: No (N/A) (YINA LEES E NISREEN) Family Medical History Reviewed Nursing Family Hx (YINA LEES APRN) Arthritis 19 MOTHER, Onset:Unknown Asthma 19 FATHER, Onset:Unknown Cataracts 19 MOTHER, Onset:Unknown Diabetes mellitus 19 MOTHER, Onset:Unknown FH: COPD (chronic obstructive pulmonary disease) 19 FATHER, Onset:Unknown Hypercholesterolemia 19 MOTHER MS (multiple sclerosis) G8 SISTER, Onset:Unknown Physical Exam Vital Signs Vital Signs - First Documented 06/16/22 17:55 Temp 36.2 Pulse 100 Resp 16 B/P (MAP) 167/94 (118) Pulse Ox 95 O2 Delivery Room Air (JOHANNY,MURALI K DO) Vital Signs Capillary Refill : Less Than 3 Seconds (YINA LEES APRN) Height, Weight, BMI Height: 5'9.00" Weight: 288lbs. 0.0oz. [id number]; 38.00 BMI Method:Stated General Appearance: No Apparent Distress, WD/WN Cardiovascular: Regular Rate, Rhythm, No Edema Respiratory: Chest Non Tender, Lungs Clear, Normal Breath Sounds, No Respiratory Distress Back: Muscle Spasm, Vertebral Tenderness, Other (I barely touched her and she was moaning in pain, pain seems out of proportion based on exam, drug seeking behavior) Neurologic/Psychiatric: Alert, Oriented x3, No Motor/Sensory Deficits Skin: Normal Color, Warm/Dry (YINA LEES APRN) Progress/Results/Core Measures Results/Orders Medications Given in ED Current Medications Medications Dose Ordered Sig/Veronika Route Start Time Stop Time Status Last Admin Dose Admin Ketorolac Tromethamine 60 mg ONCE ONCE IM 06/16/22 18:30 06/16/22 18:31 DC 06/16/22 18:39 60 MG Methylprednisolone Sodium Succinate 125 mg ONCE ONCE IM 06/16/22 18:30 06/16/22 18:31 DC 06/16/22 18:39 125 MG (JOHANNY,MURALI K DO) Vital Signs/I&O 06/16/22 17:55 Temp 36.2 Pulse 100 Resp 16 B/P (MAP) 167/94 (118) Pulse Ox 95 O2 Delivery Room Air (JOHANNY,MURALI K DO) Blood Pressure Mean: 118 Progress Progress Note : Progress Note She was exhibiting drug seeking behaviors while here in the department. I barely touched her and she is already moaning out in pain. She reported that she could not walk because the pain was so bad, yet she walked in the department without issue. I explained to her that she can have Toradol and steroids IM while she is here in the department. I explained to her that she would not be receiving narcotic pain medication from the emergency room for her chronic pain. She had no red flag findings. Reasons to return to the ER were discussed with patient in addition. (YINA LEES APRN) Departure Impression Primary Impression: Chronic back pain Qualified Codes: M54.50 - Low back pain, unspecified; G89.29 - Other chronic pain Additional Impression: Drug-seeking behavior Disposition: HOME, SELF-CARE Condition: Stable Departure-Patient Inst. Decision time for Depature: 18:27 (YINA LEES APRN) Referrals: DICK LAFLEUR MD (PCP/Family) Primary Care Physician Patient Instructions: MANAGING YOUR CHRONIC PAIN Add. Discharge Instructions: 1. Home and rest. 2. Push fluids. 3. Alternate Tylenol/Ibuprofen as needed for pain. 4. Follow up with PCP as already scheduled. 5. You are not going to receive narcotics in the ER for your chronic pain today. 6. Return here if worse or concerns. All discharge instructions reviewed with patient and/or family. Voiced understanding. ATTENDING PHYSICIAN NOTE: I WAS PHYSICALLY PRESENT ER PHYSICAN, BUT I WAS NOT INVOLVED IN ANY DECISION MAKING OR ANY CARE OF THIS PATIENT, AND I AM NOT COLLABORATING PHYSICIAN. (MURALI ORLANDO DO) YINA LEES APRN Jun 16, 2022 18:22 MURALI ORLANDO DO Jun 17, 2022 03:39
[2022-06-16] MEDS ORDERED: KETOROLAC 60 MG/2 ML VIAL IM ONE (18:30)
[2022-06-16] MEDS ORDERED: methylPREDNISolone 125 MG (Solu-MEDROL) VIAL IM ONE (18:30)
== END 2022-06-16 18:51 | disposition home or self-care (01) ==
LOC: EDUNIT# 17:53 → ER 17:57
DX: M54.50 Low back pain, unspecified (principal); G89.29 Other chronic pain; Z76.5 Malingerer [conscious simulation]; G47.30 Sleep apnea, unspecified; E66.9 Obesity, unspecified; Z98.890 Other specified postprocedural states; Z99.89 Dependence on other enabling machines and devices; Z86.16 Personal history of COVID-19; Z68.38 Body mass index [BMI] 38.0-38.9, adult; Z91.14 Patient's other noncompliance with medication regimen; Z28.310 Unvaccinated for COVID-19
CPT/HCPCS: 99284

== ENCOUNTER 2022-07-14 01:28 | Emergency (ER) | payer MEDICARE, MEDICAID ==
[~2022-07-14] VITALS: Ht 175 cm; Wt 123.0 kg
[2022-07-14] MEDS ORDERED: ASPIRIN 81 MG CHEW (CHILDREN'S ASA) PO ONE (01:45)
[2022-07-14] MEDS ORDERED: NITROGLYCERIN 0.4 MG SL TABS BTL 25'S SL PRN (01:45)
[2022-07-14] MEDS ORDERED: KETOROLAC 30 MG/ML VIAL IVP ONE (01:45)
[2022-07-14 01:57] LABS: BASOPHILS % (AUTO) 1 % (0-10); EOSINOPHILS # (AUTO) 0.2 10^3/uL (0.0-0.3); EOSINOPHILS % (AUTO) 2 % (0-10); HEMATOCRIT 37 % (35-52); HEMOGLOBIN 12.2 g/dL (11.5-16.0); LYMPHOCYTES # (AUTO) 3.3 10^3/uL (1.0-4.0); LYMPHOCYTES % (AUTO) 37 % (12-44); MEAN CORPUSCULAR HEMOGLOBIN 28 pg (25-34); MEAN CORPUSCULAR HGB CONC 33 g/dL (32-36); MEAN CORPUSCULAR VOLUME 84 fL (80-99); MEAN PLATELET VOLUME 11.5 fL (9.0-12.2); MONOCYTES # (AUTO) 0.5 10^3/uL (0.0-1.0); MONOCYTES % (AUTO) 6 % (0-12); NEUTROPHILS # (AUTO) 4.8 10^3/uL (1.8-7.8); NEUTROPHILS % (AUTO) 54 % (42-75); PLATELET COUNT 205 10^3/uL (130-400); WHITE BLOOD COUNT 8.8 10^3/uL (4.3-11.0)
[2022-07-14 02:08] LABS: ALBUMIN 3.7 GM/DL (3.2-4.5); POTASSIUM 3.9 MMOL/L (3.6-5.0)
[2022-07-14 02:09] LABS: CALCIUM 8.9 MG/DL (8.5-10.1); INR 0.9 (0.8-1.4); PROTHROMBIN TIME PATIENT 12.4 SEC (12.2-14.7)
--- NOTE | 2022-07-14 02:10 | ED Back Pain ---
General Chief Complaint: Back Problems Stated Complaint: CHEST PAIN Nursing Triage Note: C/O LEFT UPPER BACK PAIN SINCE APPROX. 2100 07/13/22. DENIES INJURY. REPORTS INCREASED PAIN WITH INSPIRATION. Source of Information: Patient History of Present Illness Date Seen by Provider: Jul 14, 2022 Time Seen by Provider: 01:33 Initial Comments PT ARRIVES VIA POV FROM HOME PT LIVES ALONE AND DROVE HERSELF HERE C/O LEFT MID BACK PAIN SINCE FRIDAY MORNING 07/13/22 STATES SHE MOPPED THE FLOOR AND THEN REACHED FOR A COFFEE CUP AND BEGAN HAVING PAIN IN HER LEFT MID BACK AREA STATES "I THINK I SPRAINED MY CHEST FROM MOPPING AND THEN WHEN I REACHED" PAIN IS WORSE WITH ANY MOVEMENTS OR WITH DEEP BREATHING DOES NOT FEEL SHORT OF BREATH--PT HAS COPD AND USES BREO DAILY, HAS NOT NEEDED TO USE RESCUE INHALERS ANYTIME RECENTLY NO COUGH NO ANTERIOR CHEST PAIN NO GI SYMPTOMS PT HAS CHRONIC BACK PAIN AND HAS HAD BACK SURGERIES X 2--DISCECTOMY AND "CAGE" IN LUMBAR SPINE. STATES SHE TAKES IBUPROFEN FOR BACK PAIN, BUT HAS NOT TAKEN ANY AT ANY TIME FOR THIS CURRENT PROBLEM STATES SHE TOOK AN ASPIRIN EARLIER TONIGHT. HAS NOT TAKEN ANYTHING ELSE, HAS NOT TRIED ICE OR HEAT, ETC. Allergies and Home Medications Allergies Coded Allergies: nickel (Verified Allergy, Intermediate, RASH, 03/25/22) doxycycline (Verified Allergy, Mild, HIVES, 03/25/22) Iodinated Contrast Media (Verified Allergy, Unknown, 03/25/22) cobalt (Verified Allergy, Unknown, Hives, 03/25/22) penicillin (Verified Allergy, Unknown, HAS RECEIVED ROCEPHIN, 03/25/22) rash Uncoded Allergies: hexachloride (Allergy, Unknown, Hives, 06/24/19) Patient Home Medication List Albuterol Sulfate (Proair Hfa) 1 Puff Puff, 2 PUFF IH Q4H PRN for WHEEZING Prescribed by: KRISTA MCKEON on 12/17/2114 Cyclobenzaprine HCl (Cyclobenzaprine HCl) 10 Mg Tablet, 10 MG PO Q8H PRN for SPASMS Prescribed by: MURALI ORLANDO on 07/14/22 0231 Enoxaparin Sodium (Lovenox) 30 Mg/0.3 Ml Syringe, 30 MG SC Q12H Prescribed by: KRISTA MCKEON on 3/21/22 0714 Fluoxetine HCl (Fluoxetine HCl) 20 Mg Capsule, 40 MG PO DAILY Prescribed by: KRISTA MCKEON on 12/17/21713 Fluticasone/Vilanterol (Breo Ellipta 200-25 Mcg INH) 1 Each Blst.w.dev, 1 EACH IH DAILY Prescribed by: KRISTA MCKEON on 12/17/21713 Hydrocodone/Acetaminophen (Hydrocodone-Acetamin 5-325 mg) 5 Mg-325 Mg Tablet, 1 TAB PO Q6H PRN for PAIN-MODERATE (5-7) Prescribed by: HEATHER SINGLETON on 06/10/22721 Ibuprofen (Ibuprofen) 200 Mg Tablet, 600 MG PO Q6H PRN for PAIN-MILD (1-4), (Reported) Entered as Reported by: ELIU WHALEY on 05/14/21 151 Metformin HCl (Metformin HCl) 1,000 Mg Tablet, 1,000 MG PO BID Prescribed by: KRISTA MCKEON on 12/17/21713 Methocarbamol (Methocarbamol) 500 Mg Tablet, 1,000 MG PO Q6-8HR PRN for back pain Prescribed by: HEATHER SINGLETON on 06/10/22721 Multivitamin/Iron/Folic Acid (Tab-A-Scottie Multivit with Iron) 1 Each Tablet, 1 EA PO DAILY@0700 Prescribed by: KRISTA MCKEON on 12/17/21713 Naproxen (Naproxen) 500 Mg Tablet.dr, 500 MG PO BID Prescribed by: MURALI ORLANDO on 07/14/22 0231 Pantoprazole Sodium (Pantoprazole Sodium) 40 Mg Tablet.dr, 40 MG PO DAILY Prescribed by: KRISTA MCKEON on 12/17/21713 Pregabalin (Lyrica) 75 Mg Capsule, 75 MG PO BID Prescribed by: KRISTA MCKEON on 12/17/21714 Sennosides/Docusate Sodium (Stool Softener-Laxative Tablet) 1 Each Tablet, 2 EA PO BID Prescribed by: KRISTA MCKEON on 12/17/21713 Discontinued Medications Oxycodone HCl/Acetaminophen (Percocet 5-325 mg Tablet) 1 Each Tablet, 1 TAB PO Q2HR PRN for PAIN-MODERATE (5-7) Discontinued Reason: No Longer Taking Prescribed by: KRISTA MCKEON on 12/17/21 0715 Last Action: Discontinued Past Ocnnnvf-Iaeicp-Pfjclb Hx Patient Social History Tobacco Use?: No Substance use?: No Alcohol Use?: No Pt feels they are or have been: No Immunizations Up To Date Tetanus Booster (TDap): Unknown PED Vaccines UTD: No First/Initial COVID19 Vaccinat: NOT VACCINATED Second COVID19 Vaccination Abdelrahman: NOT VACCINATED Third COVID19 Vaccination Date: NOT VACCINATED Seasonal Allergies Seasonal Allergies: Yes Past Medical History Surgery/Hospitalization HX: HYSTERECTOMY/BSO, CHOLECYSTECTOMY, HERNIA REPAIR, BILATERAL CARPAL TUNNEL,LEFT KNEE REPLACEMENT, LEFT SHOULDER SURGERY, BACK SURGERY, rIGHT KNEE REPLACEMENT NIDDM, HIGH CHOLESTEROL, HTN, ENRRIQUE, COPD, ASTHMA, CHRONIC BACK PAIN. 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 Sexually Transmitted Disease: No HIV/AIDS: No Genitourinary: Yes Kidney Infection, Bladder Infection, UTI-Chronic Gastrointestinal: Yes (INFLAMATION IN COLON, VENTRAL HERNIA) Abdominal Hernia, Gastroesophageal Reflux, Chronic Constipation, Chronic Diarrhea, Irritable Bowel Musculoskeletal: Yes (RESTLESS LEG SYNDROME) Arthritis, Fibromyalgia, Chronic Back Pain Endocrine: Yes (OBESITY) Diabetes, Non-Insulin dep HEENT: Yes (GLASSES) Loss of Vision: Bilateral Hearing Impairment: Denies Cancer: No Psychosocial: Yes Sleep Difficulties, Anxiety, Bipolar, Depression Integumentary: No Blood Disorders: No Adverse Reaction/Blood Tranf: No (N/A) Family Medical History Arthritis 19 MOTHER, Onset:Unknown Asthma 19 FATHER, Onset:Unknown Cataracts 19 MOTHER, Onset:Unknown Diabetes mellitus 19 MOTHER, Onset:Unknown FH: COPD (chronic obstructive pulmonary disease) 19 FATHER, Onset:Unknown Hypercholesterolemia 19 MOTHER MS (multiple sclerosis) G8 SISTER, Onset:Unknown Physical Exam Vital Signs Vital Signs - First Documented 07/14/22 01:32 Temp 36.4 Pulse 75 Resp 20 B/P (MAP) 127/97 (107) Pulse Ox 96 O2 Delivery Room Air Capillary Refill : Less Than 3 Seconds Height, Weight, BMI Height: 5'9.00" Weight: 288lbs. 0.0oz. 130.909648jy; 40.00 BMI Method:Stated Progress/Results/Core Measures Results/Orders Lab Results Laboratory Tests Test 07/14/22 01:47 Range/Units White Blood Count 8.8 4.3-11.0 10^3/uL Red Blood Count 4.43 3.80-5.11 10^6/uL Hemoglobin 12.2 11.5-16.0 g/dL Hematocrit 37 35-52 % Mean Corpuscular Volume 84 80-99 fL Mean Corpuscular Hemoglobin 28 25-34 pg Mean Corpuscular Hemoglobin Concent 33 32-36 g/dL Red Cell Distribution Width 14.3 10.0-14.5 % Platelet Count 205 130-400 10^3/uL Mean Platelet Volume 11.5 9.0-12.2 fL Immature Granulocyte % (Auto) 1 % Neutrophils (%) (Auto) 54 42-75 % Lymphocytes (%) (Auto) 37 12-44 % Monocytes (%) (Auto) 6 0-12 % Eosinophils (%) (Auto) 2 0-10 % Basophils (%) (Auto) 1 0-10 % Neutrophils # (Auto) 4.8 1.8-7.8 10^3/uL Lymphocytes # (Auto) 3.3 1.0-4.0 10^3/uL Monocytes # (Auto) 0.5 0.0-1.0 10^3/uL Eosinophils # (Auto) 0.2 0.0-0.3 10^3/uL Basophils # (Auto) 0.0 0.0-0.1 10^3/uL Immature Granulocyte # (Auto) 0.0 0.0-0.1 10^3/uL Prothrombin Time 12.4 12.2-14.7 SEC INR Comment 0.9 0.8-1.4 Activated Partial Thromboplast Time 29 24-35 SEC D-Dimer 1.22 H 0.00-0.49 UG/ML Sodium Level 139 135-145 MMOL/L Potassium Level 3.9 3.6-5.0 MMOL/L Chloride Level 105 98-107 MMOL/L Carbon Dioxide Level 25 21-32 MMOL/L Anion Gap 9 5-14 MMOL/L Blood Urea Nitrogen 13 7-18 MG/DL Creatinine 0.98 0.60-1.30 MG/DL Estimat Glomerular Filtration Rate 66 BUN/Creatinine Ratio 13 Glucose Level 169 H 70-105 MG/DL Calcium Level 8.9 8.5-10.1 MG/DL Corrected Calcium 9.1 8.5-10.1 MG/DL Magnesium Level 1.7 1.6-2.4 MG/DL Total Bilirubin 0.2 0.1-1.0 MG/DL Aspartate Amino Transf (AST/SGOT) 14 5-34 U/L Alanine Aminotransferase (ALT/SGPT) 15 0-55 U/L Alkaline Phosphatase 130 40-136 U/L Total Creatine Kinase 58 29-168 U/L Creatine Kinase MB 1.0 <6.6 NG/ML Myoglobin 26.4 10.0-92.0 NG/ML Troponin I < 0.028 <0.028 NG/ML B-Type Natriuretic Peptide 11.1 <100.0 PG/ML Total Protein 6.9 6.4-8.2 GM/DL Albumin 3.7 3.2-4.5 GM/DL Amylase Level 98 25-125 U/L Lipase 85 H 8-78 U/L My Orders Orders - MURALI ORLANDO DO Cbc With Automated Diff (07/14/22) Magnesium (07/14/22) Chest 1 View, Ap/Pa Only (07/14/22) Ekg Tracing (07/14/22) Comprehensive Metabolic Panel (07/14/22) Myoglobin Serum (07/14/22) Protime With Inr (07/14/22) Partial Thromboplastin Time (07/14/22) O2 (07/14/22) Monitor-Rhythm Ecg Trace Only (07/14/22) Ed Iv/Invasive Line Start (07/14/22) Creatine Kinase (07/14/22) Creatine Kinase Mb (07/14/22) Lipase (07/14/22) Amylase (07/14/22) Bnp Runnels (07/14/22) Fibrin Degradation Products (07/14/22) Troponin I Runnels (10/16/22 01:33) Nitroglycerin 0.4 Mg Btl 25's (Nitrostat (07/14/22 01:45) Aspirin Chewable Tablet (Baby Aspirin Ch (07/14/22 01:45) Ketorolac Injection (Toradol Injection) (07/14/22 01:45) Medications Given in ED Current Medications Medications Dose Ordered Sig/Veronika Route Start Time Stop Time Status Last Admin Dose Admin Aspirin 324 mg ONCE ONCE PO 07/14/22 01:45 07/14/22 01:46 DC 07/14/22 01:52 324 MG Ketorolac Tromethamine 30 mg ONCE ONCE IVP 07/14/22 01:45 07/14/22 01:46 DC 07/14/22 01:52 30 MG Nitroglycerin 0.4 mg UD PRN SL 07/14/22 01:45 07/14/22 01:52 0.4 MG Vital Signs/I&O 07/14/22 01:32 Temp 36.4 Pulse 75 Resp 20 B/P (MAP) 127/97 (107) Pulse Ox 96 O2 Delivery Room Air Blood Pressure Mean: 107 Progress Progress Note : Progress Note PT HAS NO CHEST PAIN PT HAS REPRODUCIBLE LEFT POSTERIOR CHEST PAIN AND TENDERNESS AND SPASMS PT HAS NO CARDIAC OR RESPIRATORY SYMPTOMS Departure Impression Primary Impression: Back strain Disposition: HOME, SELF-CARE Condition: Stable Departure-Patient Inst. Decision time for Depature: 02:30 Referrals: DICK LAFLEUR MD (PCP/Family) Primary Care Physician Patient Instructions: Back Muscle Strain (DC) Add. Discharge Instructions: MOIST HEAT TO BACK AT 20 MINUTE INTERVALS FOLLOW UP WITH DR. LAFLEUR IN 2-3 DAYS FOR FURTHER CARE All discharge instructions reviewed with patient and/or family. Voiced understanding. Scripts Naproxen (Naproxen) 500 Mg Tablet. 500 MG PO BID, #20 TAB Prov: MURALI ORLANDO DO 07/14/22 Cyclobenzaprine HCl (Cyclobenzaprine HCl) 10 Mg Tablet 10 MG PO Q8H PRN for SPASMS, #15 TAB 0 Refills Prov: EDU ORLANDOA K DO 07/14/22 EDU ORLANDOA K DO Jul 14, 2022 02:10
[2022-07-14 02:11] LABS: TOTAL PROTEIN 6.9 GM/DL (6.4-8.2)
[2022-07-14 02:12] LABS: BILIRUBIN,TOTAL 0.2 MG/DL (0.1-1.0)
[2022-07-14 02:14] LABS: CREATININE SERUM 0.98 MG/DL (0.60-1.30)
[2022-07-14 02:17] LABS: MAGNESIUM 1.7 MG/DL (1.6-2.4)
[2022-07-14] MEDS ORDERED: CYCL10TA25 PO (02:31)
[2022-07-14] MEDS ORDERED: NAPR500T8 PO (02:31)
[2022-07-14] MEDS ORDERED: RX-NAPROXEN (NAPROSYN) 250 MG TAB PPK#4 PO STA (02:33)
[2022-07-14] MEDS ORDERED: RX-CYCLOBENZAPRINE 10 MG (FLEXERIL) TAB PPK#3 PO STA (02:33)
[2022-07-14 02:39] VITALS: BP 100/81
--- NOTE | 2022-07-14 06:40 | Diagnostic Imaging Report ---
INDICATION: Chest pain. Compared 03/25/2022. FINDINGS: Lungs are clear. Heart and vascularity within normal limits. No effusion or pneumothorax. IMPRESSION: Stable negative chest Dictated by: Dictated on workstation # [id number]
== END 2022-07-14 02:41 | disposition home or self-care (01) ==
LOC: EDUNIT# 01:28 → ER 01:29
DX: S29.012A Strain of muscle and tendon of back wall of thorax, initial encounter (principal); G47.30 Sleep apnea, unspecified; E66.9 Obesity, unspecified; Z98.890 Other specified postprocedural states; Z68.41 Body mass index [BMI] 40.0-44.9, adult; Z99.89 Dependence on other enabling machines and devices; Z28.310 Unvaccinated for COVID-19; X58.XXXA Exposure to other specified factors, initial encounter
CPT/HCPCS: 36415; 71045; 80053; 82150; 82550; 82553; 83690; 83735; 83874; 83880; 84484; 85025; 85379; 85610; 85730; 93005; 93041

== ENCOUNTER 2022-07-26 16:44 | Emergency (ER) | payer MEDICARE, MEDICAID ==
[~2022-07-26] VITALS: Ht 175.2 cm; Wt 117.9 kg
[~2022-07-26 16:44] MED LIST changes: +ALBU8.5H6 IH
[2022-07-26] MEDS ORDERED: KETOROLAC 60 MG/2 ML VIAL IM ONE (17:00)
[2022-07-26] MEDS ORDERED: METH-732 PO (17:02)
[2022-07-26] MEDS ORDERED: DICL25CA4 PO (17:02)
--- NOTE | 2022-07-26 17:02 | ED Back Pain ---
General Chief Complaint: Back Problems Stated Complaint: RIGHT SIDED BACK PAIN Source of Information: Patient Exam Limitations: No Limitations History of Present Illness Date Seen by Provider: Jul 26, 2022 Time Seen by Provider: 16:59 Initial Comments To ER by EMS from home with right-sided back pain. This been ongoing she had an MRI outpatient earlier this week and does not know the results. Location: Lumbar Spine, Paraspinous Muscles, T-Spine Timing/Duration: 3-4 Days Severity: Moderate Pain/Injury Location: Back Associated Symptoms: denies symptoms Allergies and Home Medications Allergies Coded Allergies: nickel (Verified Allergy, Intermediate, RASH, 03/25/22) doxycycline (Verified Allergy, Mild, HIVES, 03/25/22) Iodinated Contrast Media (Verified Allergy, Unknown, 03/25/22) cobalt (Verified Allergy, Unknown, Hives, 03/25/22) penicillin (Verified Allergy, Unknown, HAS RECEIVED ROCEPHIN, 03/25/22) rash Uncoded Allergies: hexachloride (Allergy, Unknown, Hives, 06/24/19) Patient Home Medication List Home Medication List Reviewed: Yes Albuterol Sulfate (Proair Hfa) 1 Puff Puff, 2 PUFF IH Q4H PRN for WHEEZING Prescribed by: KRISTA MCKEON on 12/17/21713 Cyclobenzaprine HCl (Cyclobenzaprine HCl) 10 Mg Tablet, 10 MG PO Q8H PRN for SPASMS Prescribed by: MURALI ORLANDO on 07/14/22230 Enoxaparin Sodium (Lovenox) 30 Mg/0.3 Ml Syringe, 30 MG SC Q12H Prescribed by: KRISTA MCKEON on 12/17/21713 Fluoxetine HCl (Fluoxetine HCl) 20 Mg Capsule, 40 MG PO DAILY Prescribed by: KRISTA MCKEON on 12/17/21713 Fluticasone/Vilanterol (Breo Ellipta 200-25 Mcg INH) 1 Each Blst.w.dev, 1 EACH IH DAILY Prescribed by: KRISTA MCKEON on 12/17/21713 Hydrocodone/Acetaminophen (Hydrocodone-Acetamin 5-325 mg) 5 Mg-325 Mg Tablet, 1 TAB PO Q6H PRN for PAIN-MODERATE (5-7) Prescribed by: HEATHER SINGLETON on 06/10/22721 Ibuprofen (Ibuprofen) 200 Mg Tablet, 600 MG PO Q6H PRN for PAIN-MILD (1-4), (Reported) Entered as Reported by: ELIU WHALEY on 05/14/21 1517 Metformin HCl (Metformin HCl) 1,000 Mg Tablet, 1,000 MG PO BID Prescribed by: KRISTA MCKEON on 12/17/21713 Methocarbamol (Methocarbamol) 500 Mg Tablet, 1,000 MG PO Q6-8HR PRN for back pain Prescribed by: HEATHER SINGLETON on 06/10/22721 Multivitamin/Iron/Folic Acid (Tab-A-Scottie Multivit with Iron) 1 Each Tablet, 1 EA PO DAILY@0700 Prescribed by: KRISTA MCKEON on 12/17/21713 Naproxen (Naproxen) 500 Mg Tablet.dr, 500 MG PO BID Prescribed by: MURALI ORLANDO on 07/14/22 0231 Pantoprazole Sodium (Pantoprazole Sodium) 40 Mg Tablet.dr, 40 MG PO DAILY Prescribed by: KRISTA MCKEON on 12/17/21713 Pregabalin (Lyrica) 75 Mg Capsule, 75 MG PO BID Prescribed by: KRISTA MCKEON on 12/17/21714 Sennosides/Docusate Sodium (Stool Softener-Laxative Tablet) 1 Each Tablet, 2 EA PO BID Prescribed by: KRISTA MCKEON on 12/17/21713 Review of Systems Constitutional: see HPI EENTM: see HPI Respiratory: no symptoms reported Cardiovascular: no symptoms reported Genitourinary: no symptoms reported Musculoskeletal: see HPI, back pain Skin: no symptoms reported Past Remussg-Haateg-Zqmyja Hx Immunizations Up To Date Tetanus Booster (TDap): Unknown PED Vaccines UTD: No First/Initial COVID19 Vaccinat: NOT VACCINATED Second COVID19 Vaccination Abdelrahman: NOT VACCINATED Third COVID19 Vaccination Date: NOT VACCINATED Seasonal Allergies Seasonal Allergies: Yes Past Medical History Surgery/Hospitalization HX: HYSTERECTOMY/BSO, CHOLECYSTECTOMY, HERNIA REPAIR, BILATERAL CARPAL TUNNEL,LEFT KNEE REPLACEMENT, LEFT SHOULDER SURGERY, BACK SURGERY, rIGHT KNEE REPLACEMENT NIDDM, HIGH CHOLESTEROL, HTN, ENRRIQUE, COPD, ASTHMA, CHRONIC BACK PAIN. 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 Sexually Transmitted Disease: No HIV/AIDS: No Genitourinary: Yes Kidney Infection, Bladder Infection, UTI-Chronic Gastrointestinal: Yes (INFLAMATION IN COLON, VENTRAL HERNIA) Abdominal Hernia, Gastroesophageal Reflux, Chronic Constipation, Chronic Diarrhea, Irritable Bowel Musculoskeletal: Yes (RESTLESS LEG SYNDROME) Arthritis, Fibromyalgia, Chronic Back Pain Endocrine: Yes (OBESITY) Diabetes, Non-Insulin dep HEENT: Yes (GLASSES) Loss of Vision: Bilateral Hearing Impairment: Denies Cancer: No Psychosocial: Yes Sleep Difficulties, Anxiety, Bipolar, Depression Integumentary: No Blood Disorders: No Adverse Reaction/Blood Tranf: No (N/A) Family Medical History Arthritis 19 MOTHER, Onset:Unknown Asthma 19 FATHER, Onset:Unknown Cataracts 19 MOTHER, Onset:Unknown Diabetes mellitus 19 MOTHER, Onset:Unknown FH: COPD (chronic obstructive pulmonary disease) 19 FATHER, Onset:Unknown Hypercholesterolemia 19 MOTHER MS (multiple sclerosis) G8 SISTER, Onset:Unknown Physical Exam Vital Signs Capillary Refill : Height, Weight, BMI Height: 5'9.00" Weight: 288lbs. 0.0oz. [id number]; 40.00 BMI Method:Stated General Appearance: No Apparent Distress, WD/WN, Other (tearful during her exam as per her usual) Neck: Full Range of Motion, Normal Inspection Respiratory: Normal Breath Sounds, No Accessory Muscle Use, No Respiratory Distress Gastrointestinal: Normal Bowel Sounds, Non Tender, Soft Extremity: Normal Capillary Refill, Normal Inspection Neurologic/Psychiatric: Alert, Oriented x3 Skin: Normal Color, Warm/Dry Departure Communication (Admissions) Able to ambulate from wheelchair to bed. No saddle anesthesia. Impression Primary Impression: Nonspecific low back pain Disposition: 01 HOME, SELF-CARE Condition: Stable Departure-Patient Inst. Decision time for Depature: 17:00 Referrals: DICK LAFLEUR MD (PCP) Primary Care Physician Patient Instructions: MANAGING YOUR CHRONIC PAIN Add. Discharge Instructions: 1. Medication as directed. Return to ER for any concerns. All discharge instructions reviewed with patient and/or family. Voiced understanding. Scripts Diclofenac Potassium (Zipsor) 25 Mg Capsule 25 MG PO Q6H PRN for PAIN-MODERATE (5-7), #14 CAP Prov: JANELLE ESPITIA APRN 07/26/22 Methocarbamol (Methocarbamol) 750 Mg Tablet 750 MG PO Q6-8HR for Back Pain, #14 TAB Prov: JANELLE ESPITIA APRN 07/26/22 JANELLE ESPITIA APRN Jul 26, 2022 17:02
[2022-07-26 17:34] VITALS: BP 106/57
== END 2022-07-26 17:34 | disposition home or self-care (01) ==
LOC: EDUNIT# 16:44 → ER 16:45
DX: M54.50 Low back pain, unspecified (principal); G47.33 Obstructive sleep apnea (adult) (pediatric); E66.9 Obesity, unspecified; Z98.890 Other specified postprocedural states; Z86.16 Personal history of COVID-19; Z99.89 Dependence on other enabling machines and devices; Z68.41 Body mass index [BMI] 40.0-44.9, adult; Z28.310 Unvaccinated for COVID-19
CPT/HCPCS: 99285

== ENCOUNTER 2022-10-01 18:23 | Emergency (ER) | payer MEDICARE, MEDICAID ==
[~2022-10-01] VITALS: Ht 175.3 cm; Wt 122.5 kg
[~2022-10-01 18:23] MED LIST changes: +DICL25CA4 PO; -DOXY-311 PO; +DOXY-444 PO; +METH-732 PO
--- NOTE | 2022-10-01 19:08 | ED General ---
General Chief Complaint: Cough/Cold/Flu Symptoms Stated Complaint: FLU Nursing Triage Note: PT BROUGHT IN BY [facility] FROM HOME WITH COMPLAINT OF COUGH, WEAKNESS, DIZZINESS, HEADACHE, BODY ACHES FOR A FEW DAYS. Source of Information: Patient Exam Limitations: No Limitations History of Present Illness Date Seen by Provider: Oct 01, 2022 Time Seen by Provider: 18:50 Initial Comments Patient is a 61-year-old female who presents to the emergency room chief complaint, 2 days flulike symptoms, generalized weakness, cough, body aches. She endorses severe throbbing headache onset about noon while she was putting away groceries. Patient states that she has had a headache exactly like this every time she has had COVID. She states she has had it 3 times in the last year. She is nauseous. Decreased appetite. She states she took her hydrocodone that is prescribed for her right knee this morning, no medications for her headache when it started because she was too weak to get up. She states that she feels dizzy with standing and had a near syncopal episode. Rates her headache as 10 out of 10. No reported fevers. No problems with urination or bowel movements. Denies sick contacts. She is not COVID vaccinated. Timing/Duration: 1-2 Days Severity: Severe Associated Systoms: Cough, Malaise, Nausea/Vomiting (nausea without vomiting), Syncope (near syncope), Weakness Allergies and Home Medications Allergies Coded Allergies: nickel (Verified Allergy, Intermediate, RASH, 03/25/22) doxycycline (Verified Allergy, Mild, HIVES, 03/25/22) Iodinated Contrast Media (Verified Allergy, Unknown, 03/25/22) cobalt (Verified Allergy, Unknown, Hives, 03/25/22) ondansetron (Verified Allergy, Unknown, vomiting, 10/01/22) penicillin (Verified Allergy, Unknown, HAS RECEIVED ROCEPHIN, 03/25/22) rash Uncoded Allergies: hexachloride (Allergy, Unknown, Hives, 06/24/19) Patient Home Medication List Home Medication List Reviewed: Yes Albuterol Sulfate (Ventolin Hfa) 1 Puff Puff, 2 PUFF IH Q4H PRN for WHEEZING Prescribed by: KRISTA MCKEON on 12/17/21 0714 Cyclobenzaprine HCl (Cyclobenzaprine HCl) 10 Mg Tablet, 10 MG PO Q8H PRN for SPASMS Prescribed by: MURALI ORLANDO on 07/14/22230 Diclofenac Potassium (Zipsor) 25 Mg Capsule, 25 MG PO Q6H PRN for PAIN-MODERATE (5-7) Prescribed by: JANELLE ESPITIA on 07/26/221701 Enoxaparin Sodium (Lovenox) 30 Mg/0.3 Ml Syringe, 30 MG SC Q12H Prescribed by: KRISTA MCKEON on 12/17/21713 Fluoxetine HCl (Fluoxetine HCl) 20 Mg Capsule, 40 MG PO DAILY Prescribed by: KRISTA MCKEON on 12/17/21713 Fluticasone/Vilanterol (Breo Ellipta 200-25 Mcg INH) 1 Each Blst.w.dev, 1 EACH IH DAILY Prescribed by: KRISTA MCKEON on 12/17/21713 Hydrocodone/Acetaminophen (Hydrocodone-Acetamin 5-325 mg) 5 Mg-325 Mg Tablet, 1 TAB PO Q6H PRN for PAIN-MODERATE (5-7) Prescribed by: HEATHER SINGLETON on 06/10/22721 Ibuprofen (Ibuprofen) 200 Mg Tablet, 600 MG PO Q6H PRN for PAIN-MILD (1-4), (Reported) Entered as Reported by: ELIU WHALEY on 05/14/21 151 Metformin HCl (Metformin HCl) 1,000 Mg Tablet, 1,000 MG PO BID Prescribed by: KRISTA MCKEON on 12/17/21713 Methocarbamol (Methocarbamol) 500 Mg Tablet, 1,000 MG PO Q6-8HR PRN for back pain Prescribed by: HEATHER SINGLETON on 06/10/22721 Methocarbamol (Methocarbamol) 750 Mg Tablet, 750 MG PO Q6-8HR Prescribed by: JANELLE ESPITIA on 07/26/221701 Multivitamin/Iron/Folic Acid (Tab-A-Scottie Multivit with Iron) 1 Each Tablet, 1 EA PO DAILY@0700 Prescribed by: KRISTA MCKEON on 12/17/21713 Naproxen (Naproxen) 500 Mg Tablet.dr, 500 MG PO BID Prescribed by: MURALI ORLANDO on 07/14/22230 Pantoprazole Sodium (Pantoprazole Sodium) 40 Mg Tablet.dr, 40 MG PO DAILY Prescribed by: KRISTA MCKEON on 12/17/21713 Pregabalin (Lyrica) 75 Mg Capsule, 75 MG PO BID Prescribed by: KRISTA MCKEON on 12/17/21714 Sennosides/Docusate Sodium (Stool Softener-Laxative Tablet) 1 Each Tablet, 2 EA PO BID Prescribed by: KRISTA MCKEON on 12/17/21713 Review of Systems Review of Systems Constitutional: see HPI, malaise, weakness EENTM: no symptoms reported Respiratory: cough Cardiovascular: chest pain (pleuritic) Gastrointestinal: loss of appetite, nausea Genitourinary: no symptoms reported Musculoskeletal: joint pain (right knee), other (body aches) Skin: no symptoms reported Psychiatric/Neurological: Headache All Other Systems Reviewed Negative Unless Noted: Yes Past Thdvabp-Pgqfts-Ukgqob Hx Patient Social History Tobacco Use?: No Use of E-Cig and/or Vaping dev: No Substance use?: No Alcohol Use?: No Pt feels they are or have been: No Immunizations Up To Date Tetanus Booster (TDap): Unknown PED Vaccines UTD: No First/Initial COVID19 Vaccinat: NOT VACCINATED Second COVID19 Vaccination Abdelrahman: NOT VACCINATED Third COVID19 Vaccination Date: NOT VACCINATED Seasonal Allergies Seasonal Allergies: Yes Past Medical History Surgery/Hospitalization HX: HYSTERECTOMY/BSO, CHOLECYSTECTOMY, HERNIA REPAIR, BILATERAL CARPAL TUNNEL,LEFT KNEE REPLACEMENT, LEFT SHOULDER SURGERY, BACK SURGERY, rIGHT KNEE REPLACEMENT NIDDM, HIGH CHOLESTEROL, HTN, ENRRIQUE, COPD, ASTHMA, CHRONIC BACK PAIN. 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 Sexually Transmitted Disease: No HIV/AIDS: No Genitourinary: Yes Kidney Infection, Bladder Infection, UTI-Chronic Gastrointestinal: Yes (INFLAMATION IN COLON, VENTRAL HERNIA) Abdominal Hernia, Gastroesophageal Reflux, Chronic Constipation, Chronic Diarrhea, Irritable Bowel Musculoskeletal: Yes (RESTLESS LEG SYNDROME) Arthritis, Fibromyalgia, Chronic Back Pain Endocrine: Yes (OBESITY) Diabetes, Non-Insulin dep HEENT: Yes (GLASSES) Loss of Vision: Bilateral Hearing Impairment: Denies Cancer: No Psychosocial: Yes Sleep Difficulties, Anxiety, Bipolar, Depression Integumentary: No Blood Disorders: No Adverse Reaction/Blood Tranf: No (N/A) Family Medical History Arthritis 19 MOTHER, Onset:Unknown Asthma 19 FATHER, Onset:Unknown Cataracts 19 MOTHER, Onset:Unknown Diabetes mellitus 19 MOTHER, Onset:Unknown FH: COPD (chronic obstructive pulmonary disease) 19 FATHER, Onset:Unknown Hypercholesterolemia 19 MOTHER MS (multiple sclerosis) G8 SISTER, Onset:Unknown Physical Exam Vital Signs Vital Signs - First Documented 10/01/22 18:25 Temp 36.2 Pulse 70 Resp 16 B/P (MAP) 123/74 (90) Pulse Ox 96 O2 Delivery Room Air Capillary Refill : Less Than 3 Seconds Height, Weight, BMI Height: 5'9.00" Weight: 288lbs. 0.0oz. 130.094166sp; 39.00 BMI Method:Stated General Appearance: WD/WN, Anxious Eyes: Bilateral Eye Normal Inspection, Bilateral Eye PERRL, Bilateral Eye EOMI HEENT: PERRL/EOMI, Pharynx Normal, Moist Mucous Membranes Neck: Normal Inspection, Supple Respiratory: Lungs Clear, Normal Breath Sounds, No Accessory Muscle Use, No Respiratory Distress Cardiovascular: Regular Rate, Rhythm, Normal Peripheral Pulses Gastrointestinal: Non Tender, Soft Extremity: Normal Capillary Refill, Normal Inspection, Normal Range of Motion, No Calf Tenderness Neurologic/Psychiatric: Alert, Oriented x3, No Motor/Sensory Deficits, Normal 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, 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 Norm as Tested, Other (neg Romberg; normal finger to nose) Skin: Normal Color, Warm/Dry Progress/Results/Core Measures Suspected Sepsis SIRS Temperature: Pulse: 70 Respiratory Rate: 16 Blood Pressure 123 /74 Mean: 90 Results/Orders Lab Results Laboratory Tests Test 10/01/22 18:30 Range/Units Influenza Type A (RT-PCR) Not Detected Not Detecte Influenza Type B (RT-PCR) Not Detected Not Detecte SARS-CoV-2 RNA (RT-PCR) Not Detected Not Detecte My Orders Orders - HEATHER SINGLETON MD Influenza A And B By Pcr (10/01/22 18:37) Covid 19 Inhouse Test (10/01/22 18:37) Isolation Central Supply Req (10/01/22 18:37) Ed Iv/Invasive Line Start (10/01/22 19:08) Metoclopramide Injection (Reglan Injecti (10/01/22 19:15) Ketorolac Injection (Toradol Injection) (10/01/22 19:15) Diphenhydramine Injection (Benadryl Inje (10/01/22 19:15) Ns Iv 1000 Ml (Sodium Chloride 0.9%) (10/01/22 19:15) Medications Given in ED Current Medications Medications Dose Ordered Sig/Veronika Route Start Time Stop Time Status Last Admin Dose Admin Diphenhydramine HCl 25 mg ONCE ONCE IVP 10/01/22 19:15 10/01/22 19:16 DC 10/01/22 19:17 25 MG Ketorolac Tromethamine 15 mg ONCE ONCE IVP 10/01/22 19:15 10/01/22 19:16 DC 10/01/22 19:16 15 MG Metoclopramide HCl 5 mg ONCE ONCE IVP 10/01/22 19:15 10/01/22 19:16 DC 10/01/22 19:17 5 MG Vital Signs/I&O 10/01/22 10/01/22 10/01/22 18:25 18:25 19:16 Temp 36.2 36.2 Pulse 70 Resp 16 B/P (MAP) 123/74 (90) Pulse Ox 96 O2 Delivery Room Air Room Air Capillary Refill : Less Than 3 Seconds Blood Pressure Mean: 90 Progress Note : Time: 20:17 Progress Note Patient reexamined after IV fluids, flu and COVID testing. She is feeling much better, her headache is down to a "4". She is no longer nauseated. Laughing and smiling with a friend at bedside. No meningeal signs, neg kernigs. No intractable n/v; no photophobia. Low clinical suspicion ofr SAH/ meningitis. CT head considered, however history and PE do not support then need,. She is made aware of her results, return precautions provided. All questions are sought and answered. Departure Impression Primary Impression: Viral syndrome Additional Impression: Headache Qualified Codes: R51.9 - Headache, unspecified Disposition: 01 HOME, SELF-CARE Condition: Improved Departure-Patient Inst. Decision time for Depature: 20:19 Referrals: DICK LAFLEUR MD (PCP/Family) Primary Care Physician Patient Instructions: Headache, Adult ED, Viral Syndrome (DC) Add. Discharge Instructions: Drink plenty of fluids to stay well hydrated. Use over the counter ibuprofen 3 tablets with food every 5 hours as needed for headache/bodyaches. Follow up with your primary care doctor. Return to the ER for any new, concerning or emergent complaints. HEATHER SINGLETON MD Oct 01, 2022 19:08
[2022-10-01] MEDS ORDERED: NS IV 1000 ML 1,000 ML IV SCH (19:15)
[2022-10-01] MEDS ORDERED: KETOROLAC 30 MG/ML VIAL IVP ONE (19:15)
[2022-10-01] MEDS ORDERED: METOCLOPRAMIDE INJ 10 MG/2 ML (REGLAN) IVP ONE (19:15)
[2022-10-01] MEDS ORDERED: diphenhydrAMINE 50 MG/ML INJ (BENADRYL) IVP ONE (19:15)
[2022-10-01 20:31] VITALS: BP 102/36
== END 2022-10-01 20:33 | disposition home or self-care (01) ==
LOC: EDUNIT# 18:23 → ER 18:24
DX: B34.9 Viral infection, unspecified (principal); R51.9 Headache, unspecified; R05.9 Cough, unspecified; Z28.310 Unvaccinated for COVID-19; Z20.822 Contact with and (suspected) exposure to COVID-19
CPT/HCPCS: 87636; 99283

== ENCOUNTER 2022-11-11 11:02 | Outpatient (CLI) | payer MEDICARE, MEDICAID | END 2022-11-11 11:25 | LOC: SLEEP 11:02 | PROVIDERS: ATTEND Nurse Practitioner | DX: G47.33 Obstructive sleep apnea (adult) (pediatric) (principal) | CPT/HCPCS: G0399 ==

== ENCOUNTER → 2022-12-04 | Outpatient (CLI) | payer MEDICARE, MEDICAID ==
[~2022-12-04] VITALS: Ht 175.3 cm; Wt 123.6 kg
[~2022-12-04] MED LIST changes: +FLUO20CA42 PO; +FLUV20CA PO; +LISI10TA25 PO
== END | disposition home or self-care (01) ==
LOC: PREOP 05:30
PROVIDERS: ATTEND Orthopaedic Surgery
DX: Z01.818 Encounter for other preprocedural examination (principal)

== ENCOUNTER 2022-12-11 07:53 | Day surgery (SDC) | payer MEDICARE, MEDICAID ==
--- NOTE | 2022-12-04 07:18 | HISTORY AND PHYSICAL ---
This will be for outpatient right knee arthroscopy on 12/11/2022. HISTORY: The patient is a 62-year-old female with right knee pain, status post total knee arthroplasty. She has undergone treatment with genicular nerve block, physical therapy, activity modifications without relief. The patient complains of pain in the suprapatellar region. Due to failure to improve with conservative measures, the patient elected to proceed with arthroscopy, understanding that this may not fully alleviate her symptoms. REVIEW OF SYSTEMS: No chest pain, no shortness of breath. No dysuria. MEDICATIONS: Fluoxetine, Breo Ellipta, Lyrica, metformin, Protonix, fluvastatin, lisinopril. ALLERGIES: METAL, PENICILLIN, DOXYCYCLINE, VITAMIN B12. SOCIAL HISTORY: The patient is a former smoker. Drinks alcohol rarely. PAST MEDICAL HISTORY: Diabetes, hypertension, chronic pain. PHYSICAL EXAMINATION: GENERAL: The patient is well-developed, well-nourished, in no acute distress. HEENT: Normocephalic, atraumatic. Pupils are equal, round and reactive to light. Oropharynx is clear. NECK: Supple. No lymphadenopathy. LUNGS: Clear to auscultation bilaterally. HEART: Regular rate and rhythm. ABDOMEN: Soft, nontender, nondistended. EXTREMITIES: The patient has a positive straight leg raise on the right. She is tender along her suprapatellar pouch of the right knee, range of motion is well maintained at 0/3/120. No varus or valgus laxity. Negative anterior and posterior drawer. IMPRESSION: Right knee adhesions, status post total knee arthroplasty. PLAN: Right knee arthroscopy with lysis of adhesions. The risks, benefits, options, ramifications and recovery have been discussed at length with the patient. She understands and wishes to proceed. Job ID: [id number] DocumentID: [id number] Dictated Date: 11/21/2022 10:34:38 Redrying Machine Operator Date: 11/21/2022 12:01:00 Dictated By: KISHA BALDWIN MD
[~2022-12-11] VITALS: Ht 175 cm; Wt 123.6 kg
[2022-12-11] VITALS (9 sets, daily range): BP systolic 98–132; BP diastolic 56–73
[~2022-12-11 07:53] MED LIST changes: +oxyCODONE/APAP 5/325MG (PERCOCET 5) TABLET PO PRN
[2022-12-11] MEDS ORDERED: ceFAZolin INJECTION 2,000 MG in NS (IVPB) 50 ML IV ONE (08:00)
[2022-12-11] MEDS ORDERED: proPOfol 200 MG/20 ML (DIPRIVAN) VIAL IV ONE (08:11)
[2022-12-11] MEDS ORDERED: SEVOFLURANE (ULTANE) 15 ML INHAL SOLN ONE (08:11)
[2022-12-11] MEDS ORDERED: MIDAZOLAM 2 MG/2 ML (VERSED) VIAL ONE (08:11)
[2022-12-11] MEDS ORDERED: LIDOCAINE PF 2% 5 ML (XYLOCAINE) VIAL ONE (08:11)
[2022-12-11] MEDS ORDERED: fentaNYL INJ 100 MCG/2 ML AMP ONE (08:11)
--- NOTE | 2022-12-11 08:16 | Progress Note-Pre Operative ---
Pre-Operative Progress Note Date of Available H&P: Nov 21, 2022 Date H&P Reviewed: Dec 11, 2022 Time H&P Reviewed: 07:11 Changes from last HP none Pre-Operative Diagnosis: right knee adhesions status post total knee arthroplasty KISHA BALDWIN MD Dec 11, 2022 08:16
--- NOTE | 2022-12-11 08:17 | Progress Note-Post Operative ---
Post-Operative Progess Note Surgeon (s)/X Ray Operator (s) Surgeon KISHA BALDWIN MD X Ray Operator: Boy Shepherd Pre-Operative Diagnosis right knee adhesions status post total knee arthroplasty Post-Operative Diagnosis right knee adhesions status post total knee arthroplasty Procedure & Operative Findings Date of Procedure 12/11/22 Procedure Performed/Findings right knee arthroscopic lysis of adhesions Anesthesia Type GETA Estimated Blood Loss Estimated blood loss (mL): minimal Specimens/Packing Specimens Removed none Packing: none KISHA BALDWIN MD Dec 11, 2022 08:17
[2022-12-11] MEDS ORDERED: LACTATED RINGERS 1,000 ML IV PRN (08:30)
[2022-12-11] MEDS ORDERED: BUPIVACAINE 0.25% 30 ML (SENSORCAINE) VIAL INJ ONE (09:15)
--- NOTE | 2022-12-11 12:00 | Physical Therapy Ortho Eval ---
PT Orthopedic Evaluation Type of Surgery Knee Scope Prior Level of Function Current Living Status: Alone Locomotion (Upon Admit): Independent Established Durable Medical Eq: Quad Cane Subjective Subjective Patient reports she has already been up to the bathroom and her knee is feeling good, "No pain right now." Patient reports she lives alone in an apartment with no steps, but an elevator to bring her to her apartment. Entry Into Home: Elevator Motor Control Motor Control: Motor Control WNL ROM ROM: WFL, except focal deficit Strength Strength: Gen Weak,No Focal Deficit Transfer SCALE: Activities may be completed with or without assistive devices. 4-[place] completes the activity by him/herself with no assistance from a helper. 5-Set-up or Clean-up Assistance-helper sets up or cleans up; patient completes activity. [place] assists only prior to or following the activity. 4-Supervision or Touching Assistance-helper provides verbal cues and/or to uching/steadying and/or contact guard assistance as patient completes activity. Assistance may be provided throughout the activity or intermittently. 3-Partial/Moderate Assistance-helper does LESS THAN HALF the effort. [place] lifts, holds or supports trunk or limbs, but provides less than half the effort. 2-Substantial/Maximal Assistance-helper does MORE THAN HALF the effort. [place] lifts or holds trunk or limbs and provides more than half the effort. 3-Ogtvnlpty-sqgmsn does ALL the effort. Patient does none of the effort to complete the activity. Or, the assistance of 2 or more helpers is required for the patient to complete the activity. If activity was not attempted, code reason: 7-Patient Refused. 9-Not Applicable-not attempted and the patient did not perform the activity before the current illness, exacerbation or injury. 10-Not Attempted due to Environmental Limitations-(lack of equipment, weather restraints, etc.). 88-Not Attempted due to Medical Conditions or Safety Concerns. Transfers (B, C, W/C) (QC): 4 Gait Gait Assistive Device: Cane Small Base Quad Right Lower Extremity: Right Weight Bearing Status RLE: Weight Bearing/Tolerated Left Lower Extremity: Left Weight Bearing Status LLE: Weight Bearing/Tolerated Gait (QC): 4 Distance: 80 feet Treatment Rendered Treatment: Therapeutic Exercises, Gait Train Assessment/Goals Goal Time Frame: 1 Visit Understands HEP: Yes Safe Ambulation: Yes Plan Treatment Plan: Discharge PT/Family Agrees to Plan: Yes Time Time In: 1036 Time Out: 1050 Total Billed Treatment Time: 14 Billed Treatment Time Visit, MIGUEL HYMAN PT Dec 11, 2022 12:00
--- NOTE | 2022-12-11 13:20 | Anesthesia-General Post-Op ---
General Patient Condition Mental Status/LOC: Same as Preop Cardiovascular: Satisfactory Nausea/Vomiting: Absent Respiratory: Satisfactory Pain: Controlled Complications: Absent Post Op Complications Complications None Follow Up Care/Instructions Patient Instructions None needed. Anesthesia/Patient Condition Patient Condition Patient is doing well, no complaints, stable vital signs, no apparent adverse anesthesia problems. No complications reported per nursing. OSMANY CRAMER CRNA Dec 11, 2022 13:20
--- NOTE | 2022-12-11 13:52 | OPERATIVE REPORT ---
DATE OF SERVICE: 12/11/2022 PREOPERATIVE DIAGNOSIS: Right knee adhesions, status post total knee arthroplasty. POSTOPERATIVE DIAGNOSIS: Right knee adhesions, status post total knee arthroplasty. PROCEDURE: Right knee arthroscopic lysis of adhesions. SURGEON: Zion Baldwin MD SOCIAL WORKER PALLIATIVE CARE: Boy Shepherd, who assisted throughout the procedure and closed the incisions. ANESTHESIA: General endotracheal by Kalen An CRNA. TOURNIQUET TIME: Not applicable. ESTIMATED BLOOD LOSS: Minimal. DRAINS: None. COMPLICATIONS: None. POSTOPERATIVE PLAN: Weightbearing as tolerated with progressive range of motion as symptoms allow. The patient was transferred to the recovery room awake and in stable condition. STATEMENT OF MEDICAL NECESSITY: The patient is a 61-year-old female who previously underwent right total knee arthroplasty. She had continued pain in her suprapatellar region and she reported no relief with physical therapy, activity modifications and anti-inflammatories. Due to functional impairment and failure to improve with conservative measures, the patient elected to proceed with surgical intervention. DESCRIPTION OF PROCEDURE: After risks and benefits of the procedure were discussed and questions were answered, informed consent was signed and placed on chart. The operative site was confirmed in the preoperative holding, initialed by surgeon. The patient was then transferred to the operating room and after adequate levels of general endotracheal anesthetic were obtained, timeout was called, confirming the operative site. The right lower extremity was prepped and draped in the usual sterile fashion. The knee joint was injected with 60 mL fluid and standard inferolateral portal was placed under direct visualization, inferior medial portal was created. Diagnostic arthroscopy was carried out, which revealed adhesions throughout the medial and lateral gutters and into the suprapatellar pouch. No purulence was noted. No tissue abnormalities were noted. No loosening of the components were noted. The adhesions were resected with a shaver through both portals. The patellar button was intact with no abnormalities noted. The knee was copiously irrigated. The portal sites were closed with 4-0 nylon in simple interrupted fashion. Knee was injected with Duramorph. Port sites were infiltrated with plain Marcaine. A soft dressing was applied. The patient was transferred to the recovery room awake and in stable condition. Job ID: [id number] DocumentID: [id number] Dictated Date: 12/11/2022 09:03:11 Sand Control Worker Date: 12/11/2022 13:50:00 Dictated By: ZION BALDWIN MD
== END 2022-12-11 10:53 | disposition home or self-care (01) ==
LOC: SDC 07:53
PROVIDERS: ATTEND Orthopaedic Surgery
DX: M75.01 Adhesive capsulitis of right shoulder (principal); E66.01 Morbid (severe) obesity due to excess calories; Z68.41 Body mass index [BMI] 40.0-44.9, adult; Z87.891 Personal history of nicotine dependence; Z28.310 Unvaccinated for COVID-19
CPT/HCPCS: 82947; 87081

== ENCOUNTER 2023-03-11 16:02 | Day surgery (SDC) | payer MEDICARE, MEDICAID ==
[~2023-03-11] VITALS: Ht 175 cm; Wt 124.6 kg
[~2023-03-11 16:02] MED LIST changes: +SENN-271 PO; -SENN1TAB76 PO; -oxyCODONE/APAP 5/325MG (PERCOCET 5) TABLET PO PRN
[2023-03-11 16:31] LABS: BASOPHILS % (AUTO) 0 % (0-10); EOSINOPHILS # (AUTO) 0.2 10^3/uL (0.0-0.3); EOSINOPHILS % (AUTO) 2 % (0-10); HEMATOCRIT 39 % (35-52); HEMOGLOBIN 12.5 g/dL (11.5-16.0); LYMPHOCYTES # (AUTO) 2.5 10^3/uL (1.0-4.0); LYMPHOCYTES % (AUTO) 27 % (12-44); MEAN CORPUSCULAR HEMOGLOBIN 27 pg (25-34); MEAN CORPUSCULAR HGB CONC 32 g/dL (32-36); MEAN CORPUSCULAR VOLUME 83 fL (80-99); MEAN PLATELET VOLUME 11.7 fL (9.0-12.2); MONOCYTES # (AUTO) 0.5 10^3/uL (0.0-1.0); MONOCYTES % (AUTO) 5 % (0-12); NEUTROPHILS % (AUTO) 65 % (42-75); PLATELET COUNT 218 10^3/uL (130-400); WHITE BLOOD COUNT 9.3 10^3/uL (4.3-11.0)
[2023-03-11 16:42] LABS: CALCIUM 9.2 MG/DL (8.5-10.1)
[2023-03-11 16:43] LABS: TOTAL PROTEIN 7.2 GM/DL (6.4-8.2)
[2023-03-11 16:45] LABS: BILIRUBIN,TOTAL 0.3 MG/DL (0.1-1.0)
[2023-03-11] MEDS ORDERED: diphenhydrAMINE 50 MG/ML INJ (BENADRYL) IVP ONE (16:45)
[2023-03-11] MEDS ORDERED: methylPREDNISolone 40 MG/ML (Solu-MEDROL) VIAL IV ONE (16:45)
[2023-03-11] MEDS ORDERED: fentaNYL INJ 100 MCG/2 ML AMP IVP ONE ×2 (16:45→18:45)
[2023-03-11 16:47] LABS: CREATININE SERUM 0.98 MG/DL (0.60-1.30)
[2023-03-11] MEDS ORDERED: IOHEXOL 350 MG/ML 100 ML (OMNIPAQUE 350) VIAL IV ONE (17:00)
[2023-03-11] MEDS ORDERED: NS 100 ML (IVPB) BAG IV ONE (17:00)
--- NOTE | 2023-03-11 17:05 | ED Abdominal Pain ---
General Chief Complaint: Abdominal/GI Problems Stated Complaint: RIGHT SIDE PAIN Nursing Triage Note: PT STATE HAS ABD PAIN 10/10AND N/V SINCE EARLIER TODAY PT STATES SOMETIMES PAIN GOES AROUND TO BACK. MOSTLY IN R LOWER ABD Source of Information: Patient Exam Limitations: No Limitations History of Present Illness Date Seen by Provider: Mar 11, 2023 Time Seen by Provider: 16:26 Initial Comments 62-year-old female presents to the ER with complaints of right-sided abdominal pain all day. States that she has had this pain intermittently for the last 4 to 5 days, but states today that it has been constant and not improving. She complains of nausea, denies vomiting. She states she has felt feverish, denies known temperature. Denies diarrhea or constipation, last bowel movement was approximately 1 hour ago and normal. Denies dysuria and hematuria. Allergies and Home Medications Allergies Coded Allergies: nickel (Verified Allergy, Intermediate, RASH, 12/04/22) doxycycline (Verified Allergy, Mild, HIVES, 12/04/22) Iodinated Contrast Media (Verified Allergy, Unknown, 12/04/22) cobalt (Verified Allergy, Unknown, Hives, 12/04/22) ondansetron (Verified Allergy, Unknown, vomiting, 12/04/22) penicillin (Verified Allergy, Unknown, HAS RECEIVED ROCEPHIN, 12/04/22) rash Uncoded Allergies: hexachloride (Allergy, Unknown, Hives, 06/24/19) Patient Home Medication List Home Medication List Reviewed: Yes Albuterol Sulfate (Ventolin Hfa) 1 Puff Puff, 2 PUFF IH Q4H PRN for WHEEZING Prescribed by: KRISTA MCKEON on 12/17/21713 Fluoxetine HCl (Fluoxetine HCl) 20 Mg Capsule, 40 MG PO DAILY Prescribed by: KRISTA MCKEON on 12/17/21713 Fluoxetine HCl (Prozac) 20 Mg Capsule, 20 MG PO DAILY, (Reported) Entered as Reported by: Miranda Montejo on 12/04/22 105 Fluticasone/Vilanterol (Breo Ellipta 200-25 Mcg INH) 1 Each Blst.w.dev, 1 EACH IH DAILY Prescribed by: KRISTA MCKEON on 12/17/21713 Fluvastatin Sodium (Fluvastatin Sodium) 20 Mg Capsule, 20 MG PO DAILY, (Reported) Entered as Reported by: Miranda Montejo on 12/04/22 1040 Ibuprofen (Ibuprofen) 200 Mg Tablet, 600 MG PO Q6H PRN for PAIN-MILD (1-4), (Reported) Entered as Reported by: ELIU WHALEY on 05/14/21 1517 Lisinopril (Lisinopril) 10 Mg Tablet, 10 MG PO DAILY, (Reported) Entered as Reported by: Miranda Montejo on 12/04/22 1040 Metformin HCl (Metformin HCl) 1,000 Mg Tablet, 1,000 MG PO BID Prescribed by: KRISTA MCKEON on 12/17/21 0714 Pantoprazole Sodium (Pantoprazole Sodium) 40 Mg Tablet.dr, 40 MG PO DAILY Prescribed by: KRISTA MCKEON on 12/17/21713 Pregabalin (Lyrica) 75 Mg Capsule, 75 MG PO BID Prescribed by: KRISTA MCKEON on 12/17/2115 Review of Systems Review of Systems Constitutional: see HPI Past Uqizbdb-Omdsrk-Yxfoxu Hx Patient Social History Tobacco Use?: No Substance use?: No Alcohol Use?: Yes Alcohol type: Wine Alcohol Frequency: Once in a while Pt feels they are or have been: No Immunizations Up To Date Tetanus Booster (TDap): Less than 5yrs PED Vaccines UTD: No First/Initial COVID19 Vaccinat: NOT VACCINATED Second COVID19 Vaccination Abdelrahman: NOT VACCINATED Third COVID19 Vaccination Date: NOT VACCINATED Seasonal Allergies Seasonal Allergies: Yes Past Medical History Surgery/Hospitalization HX: HYSTERECTOMY/BSO, CHOLECYSTECTOMY, HERNIA REPAIR, BILATERAL CARPAL TUNNEL,LEFT KNEE REPLACEMENT, LEFT SHOULDER SURGERY, BACK SURGERY, rIGHT KNEE REPLACEMENT NIDDM, HIGH CHOLESTEROL, HTN, ENRRIQUE, COPD, ASTHMA, CHRONIC BACK PAIN. 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 History: Hysterectomy, Menopausal Sexually Transmitted Disease: No HIV/AIDS: No Genitourinary: No Kidney Infection, Bladder Infection, UTI-Chronic Gastrointestinal: No Abdominal Hernia, Gastroesophageal Reflux, Chronic Constipation, Chronic Diarrhea, Irritable Bowel Musculoskeletal: Yes Arthritis, Back Injury, Chronic Back Pain Endocrine: Yes Diabetes, Non-Insulin dep HEENT: No Loss of Vision: Bilateral Hearing Impairment: Denies Cancer: No Psychosocial: Yes Bipolar Integumentary: No Blood Disorders: No Adverse Reaction/Blood Tranf: No Family Medical History Arthritis 19 MOTHER, Onset:Unknown Asthma 19 FATHER, Onset:Unknown Cataracts 19 MOTHER, Onset:Unknown Diabetes mellitus 19 MOTHER, Onset:Unknown FH: COPD (chronic obstructive pulmonary disease) 19 FATHER, Onset:Unknown Hypercholesterolemia 19 MOTHER MS (multiple sclerosis) G8 SISTER, Onset:Unknown Physical Exam Vital Signs Vital Signs - First Documented 03/11/23 16:14 Temp 36.3 Pulse 73 Resp 16 B/P (MAP) 146/90 (108) Pulse Ox 97 Capillary Refill : Less Than 3 Seconds Height/Weight/BMI Height: 5'9.00" Weight: 288lbs. 0.0oz. [id number]; 40.00 BMI Method:Stated General Appearance: WD/WN, no apparent distress Neck: supple, normal inspection Respiratory: lungs clear, normal breath sounds, no respiratory distress, no accessory muscle use Cardiovascular: regular rate, rhythm Gastrointestinal: normal bowel sounds, soft, tenderness (Right upper and lower quadrant) Extremities: normal range of motion, normal inspection Neurologic/Psychiatric: alert, normal mood/affect Skin: normal color, warm/dry Progress/Results/Core Measures Results/Orders Lab Results Laboratory Tests Test 03/11/23 16:25 03/11/23 18:04 Range/Units White Blood Count 9.3 4.3-11.0 10^3/uL Red Blood Count 4.63 3.80-5.11 10^6/uL Hemoglobin 12.5 11.5-16.0 g/dL Hematocrit 39 35-52 % Mean Corpuscular Volume 83 80-99 fL Mean Corpuscular Hemoglobin 27 25-34 pg Mean Corpuscular Hemoglobin Concent 32 32-36 g/dL Red Cell Distribution Width 13.6 10.0-14.5 % Platelet Count 218 130-400 10^3/uL Mean Platelet Volume 11.7 9.0-12.2 fL Immature Granulocyte % (Auto) 0 % Neutrophils (%) (Auto) 65 42-75 % Lymphocytes (%) (Auto) 27 12-44 % Monocytes (%) (Auto) 5 0-12 % Eosinophils (%) (Auto) 2 0-10 % Basophils (%) (Auto) 0 0-10 % Neutrophils # (Auto) 6.0 1.8-7.8 10^3/uL Lymphocytes # (Auto) 2.5 1.0-4.0 10^3/uL Monocytes # (Auto) 0.5 0.0-1.0 10^3/uL Eosinophils # (Auto) 0.2 0.0-0.3 10^3/uL Basophils # (Auto) 0.0 0.0-0.1 10^3/uL Immature Granulocyte # (Auto) 0.0 0.0-0.1 10^3/uL Sodium Level 137 135-145 MMOL/L Potassium Level 4.0 3.6-5.0 MMOL/L Chloride Level 103 98-107 MMOL/L Carbon Dioxide Level 23 21-32 MMOL/L Anion Gap 11 5-14 MMOL/L Blood Urea Nitrogen 13 7-18 MG/DL Creatinine 0.98 0.60-1.30 MG/DL Estimat Glomerular Filtration Rate 66 BUN/Creatinine Ratio 13 Glucose Level 176 H 70-105 MG/DL Calcium Level 9.2 8.5-10.1 MG/DL Corrected Calcium 9.2 8.5-10.1 MG/DL Total Bilirubin 0.3 0.1-1.0 MG/DL Aspartate Amino Transf (AST/SGOT) 21 5-34 U/L Alanine Aminotransferase (ALT/SGPT) 25 0-55 U/L Alkaline Phosphatase 100 40-136 U/L C-Reactive Protein High Sensitivity 0.96 H 0.00-0.50 MG/DL Total Protein 7.2 6.4-8.2 GM/DL Albumin 4.0 3.2-4.5 GM/DL Amylase Level 127 H 25-125 U/L Lipase 75 8-78 U/L Urine Color YELLOW Urine Clarity CLEAR Urine pH 5.5 5-9 Urine Specific [place] 1.020 1.016-1.022 Urine Protein NEGATIVE NEGATIVE Urine Glucose (UA) NEGATIVE NEGATIVE Urine Ketones NEGATIVE NEGATIVE Urine Nitrite NEGATIVE NEGATIVE Urine Bilirubin NEGATIVE NEGATIVE Urine Urobilinogen 1.0 < = 1.0 MG/DL Urine Leukocyte Esterase NEGATIVE NEGATIVE Urine RBC (Auto) NEGATIVE NEGATIVE Urine RBC NONE /HPF Urine WBC RARE /HPF Urine Squamous Epithelial Cells 2-5 /HPF Urine Crystals NONE /LPF Urine Bacteria TRACE /HPF Urine Casts NONE /LPF Urine Mucus NEGATIVE /LPF Urine Culture Indicated NO My Orders Orders - MATHIEU,ARGENTINA R AGENCY SERVICE REPRESENTATIVE Comprehensive Metabolic Panel (03/11/23 16:26) Lipase (03/11/23 16:26) Amylase (03/11/23 16:26) Ua Culture If Indicated (03/11/23 16:26) Cbc With Automated Diff (03/11/23 16:26) Fentanyl Inj (Sublimaze Injection) (03/11/23 16:45) Diphenhydramine Injection (Benadryl Inje (03/11/23 16:45) Methylprednisolone Sod Succ (Solu-Medrol (03/11/23 16:45) Hs C Reactive Protein (03/11/23 16:38) Ct Abdomen/Pelvis W (03/11/23 16:38) Iohexol Injection (Omnipaque 350 Mg/Ml 1 (03/11/23 17:00) Ns (Ivpb) (Sodium Chloride 0.9% Ivpb Bag (03/11/23 17:00) Ed Admission (Communication) (03/11/23 18:23) Metronidazole 500mg/100ml Ivpb (Flagyl 5 (03/11/23 18:30) Levofloxacin 750 Mg/150 Ml Iv (Levaquin (03/11/23 18:30) Fentanyl Inj (Sublimaze Injection) (03/11/23 18:45) Medications Given in ED Current Medications Medications Dose Ordered Sig/Veronika Route Start Time Stop Time Status Last Admin Dose Admin Diphenhydramine HCl 50 mg ONCE ONCE IVP 03/11/23 16:45 03/11/23 16:46 DC 03/11/23 16:43 50 MG Fentanyl Citrate 50 mcg ONCE ONCE IVP 03/11/23 18:45 03/11/23 18:46 DC 03/11/23 18:44 50 MCG Fentanyl Citrate 75 mcg ONCE ONCE IVP 03/11/23 16:45 03/11/23 16:46 DC 03/11/23 16:43 75 MCG Iohexol 100 ml ONCE ONCE IV 03/11/23 17:00 03/11/23 17:02 DC 03/11/23 17:44 100 ML Levofloxacin/ Dextrose 150 ml @ 100 mls/hr ONCE ONCE IV 03/11/23 18:30 03/11/23 19:59 DC 03/11/23 19:56 100 MLS/HR Methylprednisolone Sodium Succinate 40 mg ONCE ONCE IV 03/11/23 16:45 03/11/23 16:46 DC 03/11/23 16:43 40 MG Metronidazole 100 ml @ 100 mls/hr ONCE ONCE IV 03/11/23 18:30 03/11/23 19:29 DC 03/11/23 18:44 100 MLS/HR Sodium Chloride 100 ml ONCE ONCE IV 03/11/23 17:00 03/11/23 17:02 DC 03/11/23 17:44 80 ML Vital Signs/I&O 03/11/23 16:14 Temp 36.3 Pulse 73 Resp 16 B/P (MAP) 146/90 (108) Pulse Ox 97 Blood Pressure Mean: 108 Progress Progress Note : Progress Note Patient seen and evaluated, resting in bed, moderate distress. Based on exam and symptoms, work-up initiated including CBC, CMP, amylase, lipase, CRP, UA. Fentanyl ordered for pain. Patient is allergic to contrast dye, Benadryl and Solu-Medrol ordered. Will do CT abdomen pelvis 1 hour after medications administered. [address] reviewed. CBC grossly normal. CMP shows elevated glucose 176. CRP 0.96. Amylase slightly elevated 127. Lipase normal. UA negative for infection. CT shows interval wall thickening of the appendix measuring up to 13 mm with no adjacent fat stranding. The dilation is proximal, distal portions not enlarged. Radiologist states this is likely early appendicitis. I called and spoke with Dr. Calero, surgery. He agrees to admit patient for acute appendicitis. He would like patient to be n.p.o., started on IV fluids and antibiotics, and put on the schedule for surgery for the morning. Results discussed with patient. Patient agreeable to admission. Bridge orders placed for admission. Diagnostic Imaging Diagonstic Imaging: CT Plain Films/CT/US/NM/MRI: abdomen, pelvis Comments [facility]. [place], [place] NAME: ANA LUISALENNY A MED REC#: [id number] PT STATUS: REG ER : 1960 PHYSICIAN: ARGENTINA MURDOCK APRN ADMIT DATE: 03/11/23/ER Signed Date of Exam:03/11/23 CT ABDOMEN/PELVIS W CLINICAL INDICATION: Patient with abdominal pain which started earlier today, sometimes goes around the back, mostly in the right lower abdomen. Patient has history of gallbladder and uterus resection. No history of cancer. EXAM: CT scan of the abdomen and pelvis performed with 100 mL of Omnipaque 350 IV contrast. Sagittal and coronal reformatted images are created. Auto Exposure Controls were utilized during the CT exam to meet ALARA standards for radiation dose reduction. COMPARISON: CT scan of the abdomen and pelvis without contrast dated 03/27/2020. FINDINGS: There is minimal atelectasis involving the posterior aspects of both lung bases versus scarring. There is lower lumbar spine posterior fusion hardware noted. The liver, spleen, pancreas, and adrenal glands are unremarkable. The gallbladder is surgically absent which is also noted on the prior study. There are stable-appearing adjacent prominent lymph nodes or localized dilation of the mid to distal left ureter. Both kidneys are unremarkable with no hydronephrosis or mass otherwise. The bladder is fluid filled and otherwise unremarkable. There is interval development of wall thickening involving the appendix measuring up to 13 mm with no adjacent fat stranding. Its dilation is seen proximally, but its distal portion is not enlarged. There is no intra-abdominal free air or free fluid. There is no lymphadenopathy. There is no intestinal obstruction. Again seen are postop changes to the anterior abdominal wall. Otherwise, the extra-abdominal and extrapelvic soft tissue structures are unremarkable. IMPRESSION: 1: There is interval wall thickening and enlargement of the proximal aspect of the appendix measuring up to 13 mm. The distal aspect of the appendix is nondilated. There is no adjacent fat stranding. Very early appendicitis may be a consideration. Clinical correlation is suggested. 2: The remainder of this exam shows no CT evidence of acute abdominal or pelvic process. Results of this report were discussed with Argentina Murdock APRN, via the telephone on 03/11/2023 at 1756 hours. Dictated by: Dictated on workstation # [id number] Dict: 03/11/23 1748 Trans: 03/11/23 1825 [id number] Interpreted by: KRISTIAN MCGREGOR MD Electronically signed by: KRISTIAN MCGREGOR MD 03/11/23 1820 Departure Impression Primary Impression: Appendicitis Qualified Codes: K35.80 - Unspecified acute appendicitis Disposition: ADMITTED INPATIENT Condition: Stable Admissions Decision to Admit Reason: Admit from ER (General) Decision to Admit/Date: Mar 11, 2023 Time/Decision to Admit Time: 18:10 Departure-Patient Inst. Referrals: DICK LAFLEUR MD (PCP/Family) Primary Care Physician ARGENTINA MURDOCK APRN Mar 11, 2023 17:05
--- NOTE | 2023-03-11 18:06 | Diagnostic Imaging Report ---
CLINICAL INDICATION: Patient with abdominal pain which started earlier today, sometimes goes around the back, mostly in the right lower abdomen. Patient has history of gallbladder and uterus resection. No history of cancer. EXAM: CT scan of the abdomen and pelvis performed with 100 mL of Omnipaque 350 IV contrast. Sagittal and coronal reformatted images are created. Auto Exposure Controls were utilized during the CT exam to meet ALARA standards for radiation dose reduction. COMPARISON: CT scan of the abdomen and pelvis without contrast dated 03/27/2020. FINDINGS: There is minimal atelectasis involving the posterior aspects of both lung bases versus scarring. There is lower lumbar spine posterior fusion hardware noted. The liver, spleen, pancreas, and adrenal glands are unremarkable. The gallbladder is surgically absent which is also noted on the prior study. There are stable-appearing adjacent prominent lymph nodes or localized dilation of the mid to distal left ureter. Both kidneys are unremarkable with no hydronephrosis or mass otherwise. The bladder is fluid filled and otherwise unremarkable. There is interval development of wall thickening involving the appendix measuring up to 13 mm with no adjacent fat stranding. Its dilation is seen proximally, but its distal portion is not enlarged. There is no intra-abdominal free air or free fluid. There is no lymphadenopathy. There is no intestinal obstruction. Again seen are postop changes to the anterior abdominal wall. Otherwise, the extra-abdominal and extrapelvic soft tissue structures are unremarkable. IMPRESSION: 1: There is interval wall thickening and enlargement of the proximal aspect of the appendix measuring up to 13 mm. The distal aspect of the appendix is nondilated. There is no adjacent fat stranding. Very early appendicitis may be a consideration. Clinical correlation is suggested. 2: The remainder of this exam shows no CT evidence of acute abdominal or pelvic process. Results of this report were discussed with Argentina Elias APRN, via the telephone on 03/11/2023 at 1756 hours. Dictated by: Dictated on workstation # [id number]
[2023-03-11 18:14] LABS: BILIRUBIN,URINE NEGATIVE (NEGATIVE); CLARITY,URINE CLEAR; COLOR,URINE YELLOW; GLUCOSE, URINE (UA) NEGATIVE (NEGATIVE); KETONES,URINE NEGATIVE (NEGATIVE); LEUKOCYTE ESTERASE ,URINE NEGATIVE (NEGATIVE); NITRITE,URINE NEGATIVE (NEGATIVE); PH,URINE 5.5 (5-9); PROTEIN,URINE NEGATIVE (NEGATIVE)
[2023-03-11 18:22] LABS: BACTERIA,URINE TRACE /HPF; WBC,URINE RARE /HPF
[2023-03-11] MEDS ORDERED: metroNIDAZOLE 500MG/100ML IVPB 100 ML IV ONE (18:30)
[2023-03-11 20:12] VITALS: BP 155/64
[2023-03-11] MEDS ORDERED: METOCLOPRAMIDE INJ 10 MG/2 ML (REGLAN) IV PRN (22:00)
[2023-03-11] MEDS ORDERED: FAMOTIDINE 20MG/2ML IV (PEPCID) IV PRN (22:00)
[2023-03-11] MEDS: NS IV 1000 ML 1,000 ML IV SCH (22:06)
[2023-03-11] MEDS: fentaNYL INJ 100 MCG/2 ML AMP IV PRN (22:07)
[2023-03-11 23:57] VITALS: BP 148/70
[2023-03-12] VITALS (12 sets, daily range): BP systolic 92–153; BP diastolic 59–91
[2023-03-12] MEDS: fentaNYL INJ 100 MCG/2 ML AMP IV PRN ×4 (01:36→11:22)
[2023-03-12 05:35] LABS: BASOPHILS % (AUTO) 0 % (0-10); EOSINOPHILS % (AUTO) 0 % (0-10); HEMATOCRIT 39 % (35-52); HEMOGLOBIN 12.7 g/dL (11.5-16.0); LYMPHOCYTES % (AUTO) 11 % (12-44); MEAN CORPUSCULAR HEMOGLOBIN 27 pg (25-34); MEAN CORPUSCULAR HGB CONC 32 g/dL (32-36); MEAN CORPUSCULAR VOLUME 83 fL (80-99); MEAN PLATELET VOLUME 11.8 fL (9.0-12.2); MONOCYTES # (AUTO) 0.2 10^3/uL (0.0-1.0); MONOCYTES % (AUTO) 2 % (0-12); NEUTROPHILS % (AUTO) 86 % (42-75); PLATELET COUNT 234 10^3/uL (130-400); WHITE BLOOD COUNT 9.2 10^3/uL (4.3-11.0)
[2023-03-12] MEDS: metroNIDAZOLE 500 MG/100 ML IVPB (PRE-MIX) IV SCH ×2 (05:42→14:10)
[2023-03-12 06:15] LABS: CALCIUM 9.2 MG/DL (8.5-10.1); CREATININE SERUM 0.98 MG/DL (0.60-1.30); POTASSIUM 4.5 MMOL/L (3.6-5.0)
[2023-03-12 06:37] LABS: BAND NEUTROPHILS 1 %; LYMPHOCYTES % (MANUAL) 16 %; MONOCYTES % (MANUAL) 2 %; NEUTROPHILS % (MANUAL) 81 %; RBC MORPH NORMAL
[2023-03-12] MEDS ORDERED: CATHETER FLUSH 10 ML SYR IV PRN (07:00)
[2023-03-12] MEDS: NS IV 1000 ML 1,000 ML IV SCH (08:00)
--- NOTE | 2023-03-12 08:35 | History & Physical-Surgical ---
History of Present Illness History of Present Illness Reason for visit/HPI CC: RLQ pain 62 year old female who present with rlq pain that is constant starting yesterday. She states for last couple weeks would have a little discomfort on and off, but continuous since yesterday. Radiated around the area of lower abdomen in all different directions. Sharp pain. Moderate discomfort. Some nausea no emesis. Had ct scan showing dilated proximal appendix suggestive of early appendicitis. Date of Admission Mar 11, 2023 at 19:21 Date Seen by a Provider: Mar 12, 2023 Time Seen by a Provider: 08:00 I consulted on this patient on 03/12/23 08:29 Attending Physician Amari Rodriguez MD Admitting Physician Admitting Physician: Stephane Kimble DO Attending Physician: Stephane Kimble DO Consult Allergies and Home Medications Allergies Coded Allergies: nickel (Verified Allergy, Intermediate, RASH, 12/04/22) doxycycline (Verified Allergy, Mild, HIVES, 12/04/22) Iodinated Contrast Media (Verified Allergy, Unknown, 12/04/22) cobalt (Verified Allergy, Unknown, Hives, 12/04/22) ondansetron (Verified Allergy, Unknown, vomiting, 12/04/22) penicillin (Verified Allergy, Unknown, HAS RECEIVED ROCEPHIN, 12/04/22) rash Uncoded Allergies: hexachloride (Allergy, Unknown, Hives, 06/24/19) Patient Home Medication List Home Medication List Reviewed: Yes Albuterol Sulfate (Ventolin Hfa) 1 Puff Puff, 2 PUFF IH Q4H PRN for WHEEZING Prescribed by: KRISTA MCKEON on 12/17/21713 Fluoxetine HCl (Fluoxetine HCl) 20 Mg Capsule, 40 MG PO DAILY Prescribed by: KRISTA MCKEON on 12/17/21713 Fluoxetine HCl (Prozac) 20 Mg Capsule, 20 MG PO DAILY, (Reported) Entered as Reported by: Miranda Montejo on 12/04/22 1054 Fluticasone/Vilanterol (Breo Ellipta 200-25 Mcg INH) 1 Each Blst.w.dev, 1 EACH IH DAILY Prescribed by: KRISTA MCKEON on 12/17/21713 Fluvastatin Sodium (Fluvastatin Sodium) 20 Mg Capsule, 20 MG PO DAILY, (Reported) Entered as Reported by: Miranda Montejo on 12/04/22 1040 Ibuprofen (Ibuprofen) 200 Mg Tablet, 600 MG PO Q6H PRN for PAIN-MILD (1-4), (Reported) Entered as Reported by: ELIU WHALEY on 05/14/21 1517 Lisinopril (Lisinopril) 10 Mg Tablet, 10 MG PO DAILY, (Reported) Entered as Reported by: Miranda Montejo on 12/04/22 1040 Metformin HCl (Metformin HCl) 1,000 Mg Tablet, 1,000 MG PO BID Prescribed by: KRISTA MCKEON on 12/17/21 0714 Pantoprazole Sodium (Pantoprazole Sodium) 40 Mg Tablet.dr, 40 MG PO DAILY Prescribed by: KRISTA MCKEON on 12/17/2114 Pregabalin (Lyrica) 75 Mg Capsule, 75 MG PO BID Prescribed by: KRISTA MCKEON on 12/17/21 0715 Past Pxytlvd-Btdtlf-Fmnefy Hx Patient Social History Smoking Status: Never a Smoker Former Smoker, Quit: Sep 29, 2006 Type Used: Cigarettes 2nd Hand Smoke Exposure: No Recent Hopitalizations: No Alcohol Use?: Yes Immunizations Up To Date Tetanus Booster (TDap): Less than 5yrs PED Vaccines UTD: No Date of Pneumonia Vaccine: Mar 13, 2018 Date of Influenza Vaccine: Aug 06, 2021 Seasonal Allergies Seasonal Allergies: Yes Surgeries History of Surgeries: Yes Surgeries: Hysterectomy, Orthopedic Respiratory History of Respiratory Disorde: Yes Respiratory Disorders: Asthma, Sleep Apnea, COPD Cardiovascular History of Cardiac Disorders: Yes Cardiac Disorders: High Cholesterol, Hypertension Neurological History of Neurological Disord: No Reproductive System Hx Reproductive Disorders: Yes Sexually Transmitted Disease: No HIV/AIDS: No 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, 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 Genitourinary History of Genitourinary Disor: No Genitourinary Disorders: Kidney Infection, Bladder Infection, UTI-Chronic Gastrointestinal History of Gastrointestinal Di: No Gastrointestinal Disorders: Abdominal Hernia, Gastroesophageal Reflux, Chronic Constipation, Chronic Diarrhea, Irritable Bowel Musculoskeletal History of Musculoskeletal Dis: Yes Musculoskeletal Disorders: Arthritis, Back Injury, Chronic Back Pain Endocrine History of Endocrine Disorders: Yes Endocrine Disorders: Diabetes, Non-Insulin dep HEENT History of HEENT Disorders: No Loss of Vision: Bilateral Hearing Impairment: Denies Cancer History of Cancer: No Psychosocial History of Psychiatric Problem: Yes Behavioral Health Disorders: Bipolar Integumentary History of Skin or Integumenta: No Blood Transfusions History of Blood Disorders: No Adverse Reaction to a Blood Tr: No Reviewed Nursing Assessment Reviewed/Agree w Nursing PMH: Yes Family Medical History Significant Family History: No Pertinent Family Hx Family Medial History: Arthritis 19 MOTHER, Onset:Unknown Asthma 19 FATHER, Onset:Unknown Cataracts 19 MOTHER, Onset:Unknown Diabetes mellitus 19 MOTHER, Onset:Unknown FH: COPD (chronic obstructive pulmonary disease) 19 FATHER, Onset:Unknown Hypercholesterolemia 19 MOTHER MS (multiple sclerosis) G8 SISTER, Onset:Unknown Review of Systems Constitutional: No chills, No diaphoresis EENTM: No blurred vision, No double vision Respiratory: No cough, No dyspnea on exertion Cardiovascular: No chest pain, No palpitations Gastrointestinal: abdominal pain (RLQ), nausea; No vomiting Genitourinary: No decreased output, No discharge Musculoskeletal: No back pain, No joint pain Skin: No change in color, No change in hair/nails Psychiatric/Neurological: Denies Anxiety, Denies Depressed, Denies Emotional Problems All Other Systems Reviewed Negative Unless Noted: Yes (Negative excepted noted.) Physical Exam Vital Signs Vital Signs - First Documented 03/11/23 03/11/23 16:14 20:00 Temp 36.3 Pulse 73 Resp 16 B/P (MAP) 146/90 (108) Pulse Ox 97 O2 Delivery Room Air Capillary Refill : Less Than 3 Seconds Height, Weight, BMI Height: 5'9.00" Weight: 288lbs. 0.0oz. 130.731419ro; 40.68 BMI Method:Stated General Appearance: No Apparent Distress, WD/WN, Obese HEENT: PERRL/EOMI, Normal ENT Inspection Neck: Normal Inspection, Non Tender, Supple Respiratory: Chest Non Tender, No Accessory Muscle Use, No Respiratory Distress Cardiovascular: Regular Rate, Rhythm, No JVD Gastrointestinal: Tenderness (rlq) Rectal: Deferred Back: No CVA Tenderness, No Vertebral Tenderness Extremity: Normal Inspection, Non Tender Neurologic/Psychiatric: Alert, Oriented x3, No Motor/Sensory Deficits, Normal Mood/Affect Skin: Normal Color, Warm/Dry Lymphatic: No Adenopathy Data Review Labs Laboratory Tests 03/11/23 16:25: White Blood Count 9.3, Red Blood Count 4.63, Hemoglobin 12.5, Hematocrit 39, Mean Corpuscular Volume 83, Mean Corpuscular Hemoglobin 27, Mean Corpuscular Hemoglobin Concent 32, Red Cell Distribution Width 13.6, Platelet Count 218, Mean Platelet Volume 11.7, Immature Granulocyte % (Auto) 0, Neutrophils (%) (Auto) 65, Lymphocytes (%) (Auto) 27, Monocytes (%) (Auto) 5, Eosinophils (%) (Auto) 2, Basophils (%) (Auto) 0, Neutrophils # (Auto) 6.0, Lymphocytes # (Auto) 2.5, Monocytes # (Auto) 0.5, Eosinophils # (Auto) 0.2, Basophils # (Auto) 0.0, Immature Granulocyte # (Auto) 0.0, Sodium Level 137, Potassium Level 4.0, Chloride Level 103, Carbon Dioxide Level 23, Anion Gap 11, Blood Urea Nitrogen 13, Creatinine 0.98, Estimat Glomerular Filtration Rate 66, BUN/Creatinine Ratio 13, Glucose Level 176H, Calcium Level 9.2, Corrected Calcium 9.2, Total Bilirubin 0.3, Aspartate Amino Transf (AST/SGOT) 21, Alanine Aminotransferase (ALT/SGPT) 25, Alkaline Phosphatase 100, C-Reactive Protein High Sensitivity 0.96H, Total Protein 7.2, Albumin 4.0, Amylase Level 127H, Lipase 75 03/11/23 18:04: Urine Color YELLOW, Urine Clarity CLEAR, Urine pH 5.5, Urine Specific [place] 1.020, Urine Protein NEGATIVE, Urine Glucose (UA) NEGATIVE, Urine Ketones NEGATIVE, Urine Nitrite NEGATIVE, Urine Bilirubin NEGATIVE, Urine Urobilinogen 1.0, Urine Leukocyte Esterase NEGATIVE, Urine RBC (Auto) NEGATIVE, Urine RBC NONE, Urine WBC RARE, Urine Squamous Epithelial Cells 2-5, Urine Crystals NONE, Urine Bacteria TRACE, Urine Casts NONE, Urine Mucus NEGATIVE, Urine Culture Indicated NO 03/12/23 05:18: White Blood Count 9.2, Red Blood Count 4.72, Hemoglobin 12.7, Hematocrit 39, Mean Corpuscular Volume 83, Mean Corpuscular Hemoglobin 27, Mean Corpuscular Hemoglobin Concent 32, Red Cell Distribution Width 13.3, Platelet Count 234, Mean Platelet Volume 11.8, Immature Granulocyte % (Auto) 1, Neutrophils (%) (Auto) 86H, Lymphocytes (%) (Auto) 11L, Monocytes (%) (Auto) 2, Eosinophils (%) (Auto) 0, Basophils (%) (Auto) 0, Neutrophils # (Auto) 8.0H, Lymphocytes # (Auto) 1.0, Monocytes # (Auto) 0.2, Eosinophils # (Auto) 0.0, Basophils # (Auto) 0.0, Immature Granulocyte # (Auto) 0.1, Sodium Level 136, Potassium Level 4.5, Chloride Level 105, Carbon Dioxide Level 22, Anion Gap 9, Blood Urea Nitrogen 1 3, Creatinine 0.98, Estimat Glomerular Filtration Rate 66, BUN/Creatinine Ratio 13, Glucose Level 170H, Calcium Level 9.2, Neutrophils % (Manual) 81, Lymphocytes % (Manual) 16, Monocytes % (Manual) 2, Band Neutrophils 1, Blood Morphology Comment NORMAL Assessment/Plan Assessment/Plan Admission Diagonsis rlq abdominal pain early appendicitis Admission Status: Observation Assessment/Plan rlq abdominal pain early appendicitis discussed ct scan findings and risks and benefits of laparoscopic appendectomy all other indicated procedures she understands and wishes to proceed npo iv hydration on abx to or today STEPHANE KIMBLE DO Mar 12, 2023 08:35
[2023-03-12] MEDS ORDERED: BUP/EPI 0.5% 1:200,000 (SENSORCAINE) 30 ML VIAL ONE (12:08)
[2023-03-12] MEDS ORDERED: ONDANSETRON 4 MG/2 ML (SDV) Z0FRAN ONE (12:24)
[2023-03-12] MEDS ORDERED: proPOfol 200 MG/20 ML (DIPRIVAN) VIAL IV ONE (12:24)
[2023-03-12] MEDS ORDERED: fentaNYL INJ 100 MCG/2 ML AMP ONE (12:24)
[2023-03-12] MEDS ORDERED: LIDOCAINE PF 2% 5 ML (XYLOCAINE) VIAL ONE (12:24)
[2023-03-12] MEDS ORDERED: SEVOFLURANE (ULTANE) 15 ML INHAL SOLN ONE ×2 (12:24→13:52)
[2023-03-12] MEDS ORDERED: MIDAZOLAM 2 MG/2 ML (VERSED) VIAL ONE (12:24)
[2023-03-12] MEDS ORDERED: LACTATED RINGERS 1,000 ML IV PRN (12:45)
[2023-03-12] MEDS ORDERED: BUP/EPI 0.5% 1:200,000 (SENSORCAINE) 30 ML VIAL INJ ONE (13:19)
[2023-03-12] MEDS ORDERED: HYDROmorphone 2 MG/ML VIAL (DILAUDID) ONE ×2 (13:47→14:36)
[2023-03-12] MEDS ORDERED: SUGAMMADEX 500 MG/5 ML VIAL (BRIDION) IV ONE (13:51)
[2023-03-12] MEDS ORDERED: PANT40TA52 PO (13:54)
[2023-03-12] MEDS ORDERED: FLUT1AER INH (13:54)
[2023-03-12] MEDS ORDERED: VENL75CA93 PO (13:54)
[2023-03-12] MEDS ORDERED: METF-399 PO (13:54)
[2023-03-12] MEDS ORDERED: CELE100C PO (13:54)
[2023-03-12] MEDS ORDERED: CYCL10TA25 PO (13:54)
[2023-03-12] MEDS ORDERED: FLUT16SP22 NSEACH (13:54)
[2023-03-12] MEDS ORDERED: PREG75CA75 PO (13:54)
[2023-03-12] MEDS ORDERED: CATHETER FLUSH 10 ML SYR IV SCH (14:00)
--- NOTE | 2023-03-12 14:08 | Progress Note-Post Operative ---
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 COMPLICATIONS: None. INDICATIONS: The patient is a 62 year old female who has been having right lower quadrant abdominal pain. Patient's exam consistent with appendicitis. CT scan showing dilated appendix proximally. I discussed risk and benefits of laparoscopic appendectomy and all indicated procedures with the possibility being a normal appendix. The patient understands the risks and benefits and wishes to proceed. Consent was signed on the chart. DESCRIPTION OF PROCEDURE: The patient was taken to the operating suite, prepped and draped in a sterile fashion. Timeout was performed. Local anesthetic was infiltrated just above the umbilicus and 11-blade scalpel was used to make a skin incision. Cautery was used to dissect down to the fascia and scored. Kochers were used to grasp and elevate it and the abdomen was then entered. A 0 Vicryl was placed in a [id number] fashion for closure at the end of the case. The balloon trocar was inserted into the abdomen and pneumoperitoneum was achieved. Under direct visualization of the laparoscope, a 5 mm trocar was placed in the suprapubic region and a 5 mm trocar was placed in the left lower quadrant. Appendix was located, Normal appearing appendix but it was adhered to the right gutter distallly with adhesions The base of the appendix was dissected around. Once at the base an Endo-JOS 2.5 stapler was then fired across the base of the appendix. The mesoappendix was then divided using ligasure removing right up against the appendix. It was then placed in an Endobag and removed through the 12 mm trocar site. The abdomen was then irrigated and suctioned. No other pathology noted. The abdomen was then desufflated and the trocars were removed. The 0 Vicryl placed at the beginning of the case was then tied closing the 12 mm fascial defect. The skin was then closed using carlos. The abdomen was then washed and dried and sterile bandages applied. The patient tolerated the procedure well without any complications and was taken to the recovery room in stable condition. Anesthesia Type general Estimated Blood Loss Estimated blood loss (mL): minimal Specimens/Packing Specimens Removed appendix STEPHANE KIMBEL DO Mar 12, 2023 14:08
[2023-03-12] MEDS ORDERED: DOCU-143 PO (14:10)
[2023-03-12] MEDS ORDERED: ACHD5005 PO (14:10)
--- NOTE | 2023-03-12 14:11 | Discharge Inst-Simple/Standard ---
Discharge Inst-Standard Discharge Medications New, Converted or Re-Newed RX: Transmitted to Pharmacy Patient Instructions/Follow Up Plan of Care/Instructions/FU: 2 weeks [place] Activity as Tolerated: No Discharge Diet: Regular Diet Other Inst to Patient Follow up Appt: Make appointment for 2 week. Instructions: No lifting greater than 10 pounds. No strenuous activity. May shower in 24 hours, no tub bath or soaking. Use incentive spirometer at home as directed. No Smoking Skin/Wound Care: You have special glue over your incision that will fall off on it's own. Symptoms to Report: Appetite Changes, Extremity Discoloration, Numbness/Tingling, Swelling Increased, Bleeding Excessive, Eyesight Changes, Pain Increased, Urine Color Change, Constipation(Persistent), Fever over 101 degree F, Pain/Pressure in chest, Urinating Difficulty, Cough Up/Vomit Blood, Heart Beat Irreg/Pounding, Pain/Pressure in jaw, Vaginal Bleeding Increase, Cramps in feet or legs, Lightheadedness, Pain/Pressure in shoulder, Diarrhea(Persistent), Memory Changes Suddenly, Questions/Concerns, Weight gain consecutive days, Dizziness/Fainting, Nausea/Vomiting, Shortness of Breath, Weight gain over 2 pounds If questions or concerns contact your physician Or seek help at emergency department. STEPHANE KIMBLE DO Mar 12, 2023 14:11
--- NOTE | 2023-03-12 14:12 | Anesthesia-General Post-Op ---
General Patient Condition Mental Status/LOC: Same as Preop Cardiovascular: Satisfactory Nausea/Vomiting: Absent Respiratory: Satisfactory Pain: Controlled Complications: Absent Post Op Complications Complications None Follow Up Care/Instructions Patient Instructions None needed. Anesthesia/Patient Condition Patient Condition Patient is doing well, no complaints, stable vital signs, no apparent adverse anesthesia problems. No complications reported per nursing. D/C home per [facility] Criteria: Yes TIFFANIE MANCIA CRNA Mar 12, 2023 14:12
[2023-03-12] MEDS ORDERED: HYDROmorphone 2 MG/ML VIAL (DILAUDID) IV ONE (14:15)
[2023-03-12] MEDS ORDERED: PROMETHAZINE INJ 25 MG/ML (PHENERGAN) AMP IVP ONE (14:15)
[2023-03-12] MEDS ORDERED: LEVOFLOXACIN 750 MG/D5W 150 ML PRE-MIX IV SCH (20:00)
== END 2023-03-12 17:08 | disposition home or self-care (01) ==
LOC: EDUNIT# 16:02 → ER 16:03 → UNDOADMOB 19:21 → 4TH 19:21 → SDC 20:10 → UNDODISOB 03-12 17:08
PROVIDERS: ATTEND Surgery
DX: K35.80 Unspecified acute appendicitis (principal); K38.8 Other specified diseases of appendix; E66.01 Morbid (severe) obesity due to excess calories; Z68.41 Body mass index [BMI] 40.0-44.9, adult; Z87.891 Personal history of nicotine dependence; Z28.310 Unvaccinated for COVID-19
CPT/HCPCS: 36415; 74177; 80048; 80053; 81000; 82150; 83690; 85007; 85025; 85027; 86141; 87081; 88304; 96366; 96376

== ENCOUNTER 2023-05-10 18:09 | Emergency (ER) | payer MEDICARE, MEDICAID ==
[~2023-05-10] VITALS: Ht 175.3 cm; Wt 122.5 kg
[~2023-05-10 18:09] MED LIST changes: +CELE100C PO; +FLUT16SP22 NSEACH; +FLUT1AER INH; +VENL75CA93 PO
--- NOTE | 2023-05-10 18:25 | ED Back Pain ---
General Chief Complaint: Back Problems Stated Complaint: BACK PAIN Source of Information: Patient Exam Limitations: No Limitations History of Present Illness Date Seen by Provider: May 10, 2023 Time Seen by Provider: 18:23 Initial Comments Patient is a 62-year-old female who presents ED with low back pain. Patient states she woke up with a sharp stabbing pain this morning. Pain has been constant rates pain 10 out of 10. Pain does not radiate. History of similar type pain. She reports surgery 3 years ago and states her lower spine required a "cage". She has had similar type pain in the past. Took Tylenol this morning without much improvement. She reports numbness and tingling to her lower extremities. Denies of any bowel or urine incontinence, saddle paresthesias, falls, weakness, chills, urinary symptoms, abdominal pain, fever, night sweats, chest pain, shortness of breath. Allergies and Home Medications Allergies Coded Allergies: nickel (Verified Allergy, Intermediate, RASH, 12/04/22) doxycycline (Verified Allergy, Mild, HIVES, 12/04/22) Iodinated Contrast Media (Verified Allergy, Unknown, 12/04/22) cobalt (Verified Allergy, Unknown, Hives, 12/04/22) ondansetron (Verified Allergy, Unknown, vomiting, 12/04/22) penicillin (Verified Allergy, Unknown, HAS RECEIVED ROCEPHIN, 12/04/22) rash Uncoded Allergies: hexachloride (Allergy, Unknown, Hives, 06/24/19) Patient Home Medication List Home Medication List Reviewed: Yes Cyclobenzaprine HCl (Cyclobenzaprine HCl) 10 Mg Tablet, 10 MG PO Q8H PRN for MUSCLE SPASMS, (Reported) Entered as Reported by: VITOR COTO on 03/12/23 1354 Docusate Sodium (Colace) 100 Mg Capsule, 100 MG PO DAILY Prescribed by: STEPHANE KIMBLE on 03/12/23 1410 Fluticasone Propionate (Fluticasone Propionate) 50 Mcg/Actuation [place].susp, 2 SPRAYS NSEACH DAILY, (Reported) Entered as Reported by: VITOR COTO on 03/12/23 1354 Fluticasone/Vilanterol (Breo Ellipta 100-25 Mcg INH) 100 Mcg-25 Mcg/Dose Blst.w.dev, 1 PUFF INH DAILY, (Reported) Entered as Reported by: VITOR COTO on 03/12/23 135 Fluvastatin Sodium (Fluvastatin Sodium) 20 Mg Capsule, 20 MG PO DAILY, (Reported) Entered as Reported by: Miranda Montejo on 12/04/22 1040 Hydrocodone/Acetaminophen (Hydrocodone-Acetamin 5-325 mg) 5 Mg-325 Mg Tablet, 1 EACH PO Q4H PRN for PAIN-MODERATE (5-7) Prescribed by: STEPHANE KIMBLE on 03/12/23 1410 Hydrocodone/Acetaminophen (Hydrocodone-Acetamin 5-325 mg) 5 Mg-325 Mg Tablet, 1 TAB PO Q4H PRN for PAIN-MODERATE (5-7) Prescribed by: VIJAYA HOFFMAN on 05/10/23 191 Lisinopril (Lisinopril) 10 Mg Tablet, 10 MG PO DAILY, (Reported) Entered as Reported by: Miranda Montejo on 12/04/22 1040 Metformin HCl (Metformin HCl) 1,000 Mg Tablet, 1,000 MG PO DAILY, (Reported) Entered as Reported by: VITOR COTO on 03/12/23 135 Methocarbamol (Methocarbamol) 500 Mg Tablet, 500 MG PO Q6-8HR Prescribed by: VIJAYA HOFFMAN on 05/10/231914 Pantoprazole Sodium (Pantoprazole Sodium) 40 Mg Tablet.dr, 40 MG PO DAILY, (Reported) Entered as Reported by: VITOR COTO on 03/12/23 135 Pregabalin (Pregabalin) 75 Mg Capsule, 75 MG PO DAILY, (Reported) Entered as Reported by: VITOR COTO on 03/12/23 135 Venlafaxine HCl (Venlafaxine HCl ER) 75 Mg Cap.er.24h, 75 MG PO DAILY, (Rep orted) Entered as Reported by: VITOR COTO on 03/12/23 135 Review of Systems Constitutional: No chills, No diaphoresis EENTM: No hearing loss, No ear pain, No blurred vision, No mouth pain, No mouth swelling Cardiovascular: No chest pain Gastrointestinal: No abdominal pain, No nausea, No vomiting Genitourinary: No decreased output Musculoskeletal: back pain; No joint pain Skin: No change in color, No change in hair/nails All Other Systems Reviewed Negative Unless Noted: Yes Past Iarqvta-Ubhpws-Syhxpg Hx Immunizations Up To Date Tetanus Booster (TDap): Less than 5yrs PED Vaccines UTD: No First/Initial COVID19 Vaccinat: NOT VACCINATED Second COVID19 Vaccination Abdelrahman: NOT VACCINATED Third COVID19 Vaccination Date: NOT VACCINATED Seasonal Allergies Seasonal Allergies: Yes Past Medical History Surgery/Hospitalization HX: HYSTERECTOMY/BSO, CHOLECYSTECTOMY, HERNIA REPAIR, BILATERAL CARPAL TUNNEL,LEFT KNEE REPLACEMENT, LEFT SHOULDER SURGERY, BACK SURGERY, rIGHT KNEE REPLACEMENT NIDDM, HIGH CHOLESTEROL, HTN, ENRRIQUE, COPD, ASTHMA, CHRONIC BACK PAIN. 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 Sexually Transmitted Disease: No HIV/AIDS: No Genitourinary: No Kidney Infection, Bladder Infection, UTI-Chronic Gastrointestinal: No Abdominal Hernia, Gastroesophageal Reflux, Chronic Constipation, Chronic Diarrhea, Irritable Bowel Musculoskeletal: Yes Arthritis, Back Injury, Chronic Back Pain Endocrine: Yes Diabetes, Non-Insulin dep HEENT: No Loss of Vision: Bilateral Hearing Impairment: Denies Cancer: No Psychosocial: Yes Bipolar Integumentary: No Blood Disorders: No Adverse Reaction/Blood Tranf: No Family Medical History Arthritis 19 MOTHER, Onset:Unknown Asthma 19 FATHER, Onset:Unknown Cataracts 19 MOTHER, Onset:Unknown Diabetes mellitus 19 MOTHER, Onset:Unknown FH: COPD (chronic obstructive pulmonary disease) 19 FATHER, Onset:Unknown Hypercholesterolemia 19 MOTHER MS (multiple sclerosis) G8 SISTER, Onset:Unknown No Pertinent Family Hx Physical Exam Vital Signs Vital Signs - First Documented 05/10/23 18:16 Temp 37.7 Pulse 93 Resp 22 B/P (MAP) 151/83 (105) Pulse Ox 97 Capillary Refill : Height, Weight, BMI Height: 5'9.00" Weight: 288lbs. 0.0oz. 130.868859la; 40.68 BMI Method:Stated General Appearance: No Apparent Distress, WD/WN HEENT: PERRL/EOMI, TMs Normal, Normal ENT Inspection, Pharynx Normal Neck: Full Range of Motion, Normal Inspection, Non Tender, Supple Cardiovascular: Regular Rate, Rhythm, No Edema, No Gallop, No JVD Respiratory: Chest Non Tender, Lungs Clear, Normal Breath Sounds, No Accessory Muscle Use, No Respiratory Distress Gastrointestinal: Normal Bowel Sounds, No Organomegaly, No Pulsatile Mass, Non Tender Back: Vertebral Tenderness (Lumbar midline tenderness. Bilateral lumbar paraspinal muscle tenderness. Pain with range of motion. No swelling, erythema or ecchymosis.) Extremity: Normal Capillary Refill, Normal Inspection, Normal Range of Motion, Non Tender, No Calf Tenderness Neurologic/Psychiatric: Alert, Oriented x3, No Motor/Sensory Deficits, Normal Mood/Affect, telephone order supervisor II-XII Norm as Tested Skin: Normal Color Progress/Results/Core Measures Results/Orders My Orders Orders - CHANO CANSECO Ketorolac Injection (Ketorolac Injection (05/10/23 18:30) Orphenadrine Inj (Ed Only) (Norflex Inje (05/10/23 18:30) Hydrocodone/Apap 5/325 Tablet (Hydrocod (05/10/23 18:30) Fentanyl Injection (Fentanyl Injection (05/10/23 19:12) Medications Given in ED Current Medications Medications Dose Ordered Sig/Veronika Route Start Time Stop Time Status Last Admin Dose Admin Acetaminophen/ Hydrocodone Bitart 1 ea ONCE ONCE PO 05/10/23 18:30 05/10/23 18:31 DC 05/10/23 18:31 1 EA Ketorolac Tromethamine 30 mg ONCE ONCE IM 05/10/23 18:30 05/10/23 18:31 DC 05/10/23 18:31 30 MG Orphenadrine Citrate 60 mg ONCE ONCE IM 05/10/23 18:30 05/10/23 18:31 DC 05/10/23 18:31 60 MG Vital Signs/I&O 05/10/23 05/10/23 18:16 19:40 Temp 37.7 Pulse 93 73 Resp 22 B/P (MAP) 151/83 (105) 117/59 Pulse Ox 97 96 Departure Communication (PCP) Patient presents ED with low back pain. Described as sharp. She reports pain rating down her legs. She states she has a history of similar type pain. She denies of any fall. No neurological red flag findings such as bowel or urine incontinence or saddle paresthesia. There is no evidence of weakness in her lower extremity. She does have a history of lumbar fusion. Patient took Tyl enol at home without much improvement. No abdominal pain, fever, dysuria, hematuria. Pain with any movement and reproducible. Due to no falls or evidence suggesting injury imaging was not ordered at this time. Did provide a dose of IM Toradol, Norflex and hydrocodone with improvement of pain. Patient states this feels very similar to her previous pain. She does follow Dr. April gtz Neurosurgery in the past. We will provide a few days worth of pain medication and Robaxin. Recommend follow-up with your primary care physician on Friday for further evaluation. If any bowel or urine incontinence, saddle paresthesia or lower extremity weakness to return back to ED. Impression Primary Impression: Low back pain Disposition: HOME, SELF-CARE Condition: Stable Departure-Patient Inst. Decision time for Depature: 19:13 Referrals: DICK LAFLEUR MD (PCP/Family) Primary Care Physician Patient Instructions: Low Back Pain ED Add. Discharge Instructions: Recommend following up with Dr. Victor early next week for reevaluation. If any worsening symptoms return back to ED. Recommend anti-inflammatories, heat, stretching. All discharge instructions reviewed with patient and/or family. Voiced understanding. Scripts Hydrocodone/Acetaminophen (Hydrocodone-Acetamin 5-325 mg) 5 Mg-325 Mg Tablet 1 TAB PO Q4H PRN for PAIN-MODERATE (5-7), #8 TAB Prov: CHANO CANSECO 05/10/23 Methocarbamol (Methocarbamol) 500 Mg Tablet 500 MG PO Q6-8HR for Back Pain, #20 TAB Prov: CHANO CANSECO 05/10/23 CHANO CANSECO May 10, 2023 18:25
[2023-05-10] MEDS ORDERED: KETOROLAC INJ 30 MG/ML VIAL IM ONE (18:30)
[2023-05-10] MEDS ORDERED: ORPHENADRINE 60 MG/2 ML (NORFLEX) AMP (ED ONLY) IM ONE (18:30)
[2023-05-10] MEDS ORDERED: HYDROcodone/ACETAMINOPHEN 5 MG/325 MG TABLET PO ONE (18:30)
[2023-05-10] MEDS ORDERED: fentaNYL INJECTION 100 MCG/2 ML VIAL IM STA (19:12)
[2023-05-10] MEDS ORDERED: ACHD5005 PO (19:15)
[2023-05-10] MEDS ORDERED: METH-731 PO (19:15)
[2023-05-10 19:40] VITALS: BP 117/59
== END 2023-05-10 19:43 | disposition home or self-care (01) ==
LOC: EDUNIT# 18:09 → ER 18:11
DX: M54.50 Low back pain, unspecified (principal); Z28.310 Unvaccinated for COVID-19
CPT/HCPCS: 99284

== ENCOUNTER → 2023-05-12 | Outpatient (CLI) | payer MEDICARE, MEDICAID ==
[~2023-05-12] VITALS: Ht 175 cm; Wt 123.0 kg
[~2023-05-12] MED LIST changes: +CATHETER FLUSH 10 ML SYR IVP PRN; +REGADENOSON 0.4 MG/5 ML SYR (LEXISCAN) IV ONE
[2023-05-12 08:04] VITALS: BP 112/78
--- NOTE | 2023-05-12 09:25 | Cardiology Stress Test Report ---
Stress Test Report Date of Procedure/Referring: Date of Procedure: May 12, 2023 PCP Amari Rodriguez MD Admitting Physician Admitting Physician: Attending Physician: Meme Chung Np Baseline Vital Signs Vital Signs Date Time Temp Pulse Resp B/P (MAP) Pulse Ox O2 Delivery O2 Flow Rate FiO2 05/12/23 08:04 63 112/78 (89) 98 Summary: Patient receive a resting and stress dose of Myoview, images were acquired and reviewed in the short axis view, horizontal long axis view and vertical long axis view. TID: 1.1 SSS: 1 SDS: 1 EF: 64 No ischemia or infarction noted on SPECT images Normal left ventricular size, ejection fraction 64% Copy Copies To 1: LIVIA MORALES BASHAR J MD May 12, 2023 09:25
== END ==
LOC: CARD 06:29
PROVIDERS: ATTEND Nurse Practitioner
DX: R94.31 Abnormal electrocardiogram [ECG] [EKG] (principal); R07.89 Other chest pain
CPT/HCPCS: 78452; 93017

== ENCOUNTER 2023-06-02 14:36 | Emergency (ER) | payer MEDICARE, MEDICAID ==
[~2023-06-02] VITALS: Ht 172.7 cm; Wt 124.2 kg
[~2023-06-02 14:36] MED LIST changes: -CATHETER FLUSH 10 ML SYR IVP PRN; -REGADENOSON 0.4 MG/5 ML SYR (LEXISCAN) IV ONE
[2023-06-02] MEDS ORDERED: KETOROLAC INJ 30 MG/ML VIAL IVP STA (16:20)
[2023-06-02] MEDS ORDERED: fentaNYL INJECTION 100 MCG/2 ML VIAL IVP STA (16:20)
--- NOTE | 2023-06-02 16:23 | ED Back Pain ---
General Chief Complaint: Lower Extremity Stated Complaint: LOWER BACK PAIN DOWN TO LT FOOT, NUMBNESS Nursing Triage Note: PT ARRIVED POV WITH CC OF LOWER BACK PAIN AND NUMBNESS IN LEFT LOWER EXTERMITY. PT STATES THAT SHE HAD BACK SURGERY 3 YRS AGO. Source of Information: Patient Exam Limitations: No Limitations History of Present Illness Date Seen by Provider: Jun 02, 2023 Time Seen by Provider: 16:07 Initial Comments Here with complaint of low back pain radiating down her left leg. Low back pain is very typical and common for her and has been seen many times for this before. Pain radiation and numbness radiation also common for her. She has evaluation with Dr. BARRY in progress and had MRI last week and she sees him at the end of the month for further evaluation and possible surgery. She was seen a few weeks ago for the same. Denies any recent injury. States woke up this morning with the pain. Denies dysuria, diarrhea, bowel or bladder incontinence or difficulty with walking. She did get a ride up here. She was able to walk in. Timing/Duration: 12 Hours Severity: Moderate Pain/Injury Location: Back Radiation: Buttocks, Feet, Lower Legs, Upper Legs, Other (Findings on the left) Method of Injury: Unknown Modifying Factors: Improves With Immobilization; Worse With Movement Associated Symptoms: muscle spasms, numbness in legs/feet, lower back pain Allergies and Home Medications Allergies Coded Allergies: nickel (Verified Allergy, Intermediate, RASH, 12/04/22) doxycycline (Verified Allergy, Mild, HIVES, 12/04/22) Iodinated Contrast Media (Verified Allergy, Unknown, 12/04/22) cobalt (Verified Allergy, Unknown, Hives, 12/04/22) ondansetron (Verified Allergy, Unknown, vomiting, 12/04/22) penicillin (Verified Allergy, Unknown, HAS RECEIVED ROCEPHIN, 12/04/22) rash Uncoded Allergies: hexachloride (Allergy, Unknown, Hives, 06/24/19) Patient Home Medication List Home Medication List Reviewed: Yes Cyclobenzaprine HCl (Cyclobenzaprine HCl) 10 Mg Tablet, 10 MG PO Q8H PRN for MUSCLE SPASMS, (Reported) Entered as Reported by: VITOR COTO on 03/12/23 4216 Docusate Sodium (Colace) 100 Mg Capsule, 100 MG PO DAILY Prescribed by: STEPHANE KIMBLE on 03/12/23 141 Fluticasone Propionate (Fluticasone Propionate) 50 Mcg/Actuation [place].susp, 2 SPRAYS NSEACH DAILY, (Reported) Entered as Reported by: VITOR COTO on 03/12/23 135 Fluticasone/Vilanterol (Breo Ellipta 100-25 Mcg INH) 100 Mcg-25 Mcg/Dose Blst.w.dev, 1 PUFF INH DAILY, (Reported) Entered as Reported by: VITOR COTO on 03/12/23 135 Fluvastatin Sodium (Fluvastatin Sodium) 20 Mg Capsule, 20 MG PO DAILY, (Reported) Entered as Reported by: Miranda Montejo on 12/04/22 104 Hydrocodone/Acetaminophen (Hydrocodone-Acetamin 5-325 mg) 5 Mg-325 Mg Tablet, 1 EACH PO Q4H PRN for PAIN-MODERATE (5-7) Prescribed by: STEPHANE KIMBLE on 03/12/231409 Hydrocodone/Acetaminophen (Hydrocodone-Acetamin 5-325 mg) 5 Mg-325 Mg Tablet, 1 TAB PO Q4H PRN for PAIN-MODERATE (5-7) Prescribed by: VIJAYA HOFFMAN on 05/10/231914 Lisinopril (Lisinopril) 10 Mg Tablet, 10 MG PO DAILY, (Reported) Entered as Reported by: Miranda Montejo on 12/04/22 104 Metformin HCl (Metformin HCl) 1,000 Mg Tablet, 1,000 MG PO DAILY, (Reported) Entered as Reported by: VITOR COTO on 03/12/231353 Methocarbamol (Methocarbamol) 500 Mg Tablet, 500 MG PO Q6-8HR Prescribed by: VIJAYA HOFFMAN on 05/10/231914 Pantoprazole Sodium (Pantoprazole Sodium) 40 Mg Tablet.dr, 40 MG PO DAILY, (Reported) Entered as Reported by: VITOR COTO on 03/12/23 135 Pregabalin (Pregabalin) 75 Mg Capsule, 75 MG PO DAILY, (Reported) Entered as Reported by: VITOR COTO on 03/12/23 135 Venlafaxine HCl (Venlafaxine HCl ER) 75 Mg Cap.er.24h, 75 MG PO DAILY, (Reported) Entered as Reported by: VITOR COTO on 03/12/23 0457 Review of Systems Constitutional: see HPI; No chills, No fever Respiratory: No cough, No short of breath Musculoskeletal: back pain, muscle pain; No muscle weakness Psychiatric/Neurological: Numbness; Denies Weakness Past Mdkjomb-Rsvuff-Kggpqo Hx Patient Social History Tobacco Use?: No Substance use?: No Alcohol Use?: Yes Alcohol Frequency: Once in a while Immunizations Up To Date Tetanus Booster (TDap): Less than 5yrs PED Vaccines UTD: No First/Initial COVID19 Vaccinat: NOT VACCINATED Second COVID19 Vaccination Abdelrahman: NOT VACCINATED Third COVID19 Vaccination Date: NOT VACCINATED Seasonal Allergies Seasonal Allergies: Yes Past Medical History Surgery/Hospitalization HX: HYSTERECTOMY/BSO, CHOLECYSTECTOMY, HERNIA REPAIR, BILATERAL CARPAL TUNNEL,LEFT KNEE REPLACEMENT, LEFT SHOULDER SURGERY, BACK SURGERY, rIGHT KNEE REPLACEMENT NIDDM, HIGH CHOLESTEROL, HTN, ENRRIQUE, COPD, ASTHMA, CHRONIC BACK PAIN. 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, Menopausal Sexually Transmitted Disease: No HIV/AIDS: No Genitourinary: No Kidney Infection, Bladder Infection, UTI-Chronic Gastrointestinal: No Abdominal Hernia, Gastroesophageal Reflux, Chronic Constipation, Chronic Diarrhea, Irritable Bowel Musculoskeletal: Yes Arthritis, Back Injury, Chronic Back Pain Endocrine: Yes Diabetes, Non-Insulin dep HEENT: No Loss of Vision: Bilateral Hearing Impairment: Denies Cancer: No Psychosocial: Yes Bipolar Integumentary: No Blood Disorders: No Adverse Reaction/Blood Tranf: No Family Medical History Reviewed Nursing Family Hx Arthritis 19 MOTHER, Onset:Unknown Asthma 19 FATHER, Onset:Unknown Cataracts 19 MOTHER, Onset:Unknown Diabetes mellitus 19 MOTHER, Onset:Unknown FH: COPD (chronic obstructive pulmonary disease) 19 FATHER, Onset:Unknown Hypercholesterolemia 19 MOTHER MS (multiple sclerosis) G8 SISTER, Onset:Unknown No Pertinent Family Hx Physical Exam Vital Signs Vital Signs - First Documented 06/02/23 15:00 Pulse 82 B/P (MAP) 127/83 (98) Pulse Ox 95 O2 Delivery Room Air Capillary Refill : Height, Weight, BMI Height: 5'9.00" Weight: 288lbs. 0.0oz. 130.665694vr; 41.00 BMI Method:Stated General Appearance: Mild Distress, Obese Cardiovascular: Regular Rate, Rhythm, No Murmur Respiratory: Lungs Clear, Normal Breath Sounds Back: Muscle Spasm; No Vertebral Tenderness; Other (Low back pain bilateral and lateral aspect, left) Extremity: Normal Inspection, Normal Range of Motion, Non Tender Neurologic/Psychiatric: Alert, Oriented x3 Skin: Normal Color, Warm/Dry Progress/Results/Core Measures Results/Orders My Orders Orders - LUNA LEGER MD Fentanyl Injection (Fentanyl Injection (06/02/23 16:20) Hydrocodone/Apap 5/325 Tablet (Hydrocod (06/02/23 16:30) Ketorolac Injection (Ketorolac Injection (06/02/23 16:20) Prednisone Tablet (Prednisone Tablet) (06/02/23 16:30) Vital Signs/I&O 06/02/23 15:00 Pulse 82 B/P (MAP) 127/83 (98) Pulse Ox 95 O2 Delivery Room Air Blood Pressure Mean: 98 Progress Progress Note : Progress Note Seen and evaluated. She did get IV. We did discuss options for therapy. Ultimately we will go ahead and initiate fentanyl 50 mcg IV, hydrocodone 5/325 1 tab p.o., Toradol 30 mg IV and prednisone 40 mg p.o. She was very happy with this plan and that seemed to make her immediately feel better. She will continue with her follow-up with Dr. BARRY. No further imaging required at this point as she has had recent MRI and she is in evaluation with back surgeon. Discharged home with return precautions. Patient verbalized understanding of instructions and agreement with plan. Departure Impression Primary Impression: Lumbar radiculopathy, acute Disposition: 01 HOME, SELF-CARE Condition: Stable Departure-Patient Inst. Decision time for Depature: 16:31 Referrals: DICK LAFLEUR MD (PCP/Family) Primary Care Physician Patient Instructions: Radiculopathy (DC) Add. Discharge Instructions: All discharge instructions reviewed with patient and/or family. Voiced understanding. Follow-up with your back surgeon for recheck and further evaluation. Take medications as directed. If you are not taking the prescribed pain medicine, you may take Tylenol/acetaminophen 1000 mg every 6-8 hours as needed for pain but do not take both at the same time as they both have acetaminophen in them. You may use [id number] Icy Hot with lidocaine patches or cream, Aspercreme with lidocaine patches or cream, Salonpas with lidocaine patches or cream or similar items to area of concern per package directions. Return for worse pain, weakness, numbness, difficulty with walking or going to the bathroom or other concerns as needed. Scripts Prednisone (Prednisone) 20 Mg Tab 40 MG PO DAILY, #10 TAB 0 Refills Prov: LUNA LEGER MD 06/02/23 Hydrocodone/Acetaminophen (Hydrocodone-Acetamin 5-325 mg) 5 Mg-325 Mg Tablet 1 TAB PO Q6H PRN for PAIN-MODERATE (5-7) for 7 Days, #8 TAB 0 Refills Prov: LUNA LEGER MD 06/02/23 LUNA LEGER MD Jun 02, 2023 16:23
[2023-06-02] MEDS ORDERED: predniSONE 20 MG TABLET PO ONE (16:30)
[2023-06-02] MEDS ORDERED: HYDROcodone/ACETAMINOPHEN 5 MG/325 MG TABLET PO ONE (16:30)
[2023-06-02] MEDS ORDERED: PRD20T PO (16:32)
[2023-06-02] MEDS ORDERED: ACHD5005 PO (16:32)
[2023-06-02 16:58] VITALS: BP 135/68
== END 2023-06-02 17:00 | disposition home or self-care (01) ==
LOC: EDUNIT# 14:36 → ER 14:39
DX: M54.16 Radiculopathy, lumbar region (principal); E66.9 Obesity, unspecified; Z68.41 Body mass index [BMI] 40.0-44.9, adult; Z28.310 Unvaccinated for COVID-19

== ENCOUNTER 2023-07-14 12:27 | Emergency (ER) | payer MEDICARE, MEDICAID ==
[~2023-07-14] VITALS: Ht 175 cm; Wt 124.2 kg
[~2023-07-14 12:27] MED LIST changes: -PREG75CA75 PO; +PREG75CA76 PO
[2023-07-14] MEDS ORDERED: HYDROcodone/ACETAMINOPHEN 10/325 TABLET PO STA (13:19)
--- NOTE | 2023-07-14 13:23 | ED Back Pain ---
General Chief Complaint: Back Problems Stated Complaint: LOWER BACK PAIN | Nursing Triage Note: PT AMB TO TRIAGE WITH C/O LOW BACK PAIN X2 DAYS AFTER TWISTING HER BACK WHILE DOING LAUNDRY. PT HAS TAKEN TYLENOL AND IBURPOFEN WITHOUT RELIEF Source of Information: Patient Exam Limitations: No Limitations (CHANO CANSECO) History of Present Illness Date Seen by Provider: Jul 14, 2023 Time Seen by Provider: 13:21 Initial Comments Patient is a 62-year-old female with a history of chronic low back pain who presents to the ED for pain in her lower back with a sharp shooting pain down into her right thigh. Symptoms started 2 days ago. She states she was putting laundry in a basket. [place] a sharp pain. Since then this pain has been constant worse with standing walking. Sharp shooting pain into right posterior thigh. Denies of any bowel or urine incontinence or saddle paresthesia. She does follow-up with Dr. Judge neurosurgery at [facility]. She states she had a cage placed in her lower back. She was seen 2 weeks ago everything looked good according to patient. She is scheduled follow-up with pain management tomorrow. She denies of any pain with urination frequent urination, fever, chills, drug use, chest pain, shortness of breath. (CHANO CANSECO) Allergies and Home Medications Allergies Coded Allergies: nickel (Verified Allergy, Intermediate, RASH, 12/04/22) doxycycline (Verified Allergy, Mild, HIVES, 12/04/22) Iodinated Contrast Media (Verified Allergy, Unknown, 12/04/22) cobalt (Verified Allergy, Unknown, Hives, 12/04/22) ondansetron (Verified Allergy, Unknown, vomiting, 12/04/22) penicillin (Verified Allergy, Unknown, HAS RECEIVED ROCEPHIN, 12/04/22) rash Uncoded Allergies: hexachloride (Allergy, Unknown, Hives, 06/24/19) Patient Home Medication List Home Medication List Reviewed: Yes (CHANO CANSECO) Cyclobenzaprine HCl (Cyclobenzaprine HCl) 10 Mg Tablet, 10 MG PO Q8H PRN for MUSCLE SPASMS, (Reported) Entered as Reported by: VITOR COTO on 03/12/23 1354 Docusate Sodium (Colace) 100 Mg Capsule, 100 MG PO DAILY Prescribed by: STEPHANE KIMBLE on 03/12/23 1410 Fluticasone Propionate (Fluticasone Propionate) 50 Mcg/Actuation [place].susp, 2 SPRAYS NSEACH DAILY, (Reported) Entered as Reported by: VITOR COTO on 03/12/23 1354 Fluticasone/Vilanterol (Breo Ellipta 100-25 Mcg INH) 100 Mcg-25 Mcg/Dose Blst.w.dev, 1 PUFF INH DAILY, (Reported) Entered as Reported by: VITOR COTO on 03/12/23 1354 Fluvastatin Sodium (Fluvastatin Sodium) 20 Mg Capsule, 20 MG PO DAILY, (Reported) Entered as Reported by: Miranda Montejo on 12/04/22 1040 Hydrocodone/Acetaminophen (Hydrocodone-Acetamin 5-325 mg) 5 Mg-325 Mg Tablet, 1 EACH PO Q4H PRN for PAIN-MODERATE (5-7) Prescribed by: STEPHANE KIMBLE on 03/12/23 1410 Hydrocodone/Acetaminophen (Hydrocodone-Acetamin 5-325 mg) 5 Mg-325 Mg Tablet, 1 TAB PO Q4H PRN for PAIN-MODERATE (5-7) Prescribed by: VIJAYA HOFFMAN on 05/10/23 1915 Hydrocodone/Acetaminophen (Hydrocodone-Acetamin 5-325 mg) 5 Mg-325 Mg Tablet, 1 TAB PO Q6H PRN for PAIN-MODERATE (5-7) Prescribed by: LUNA LEGER on 06/02/23 1633 Hydrocodone/Acetaminophen (Hydrocodone-Acetamin 5-325 mg) 5 Mg-325 Mg Tablet, 1 TAB PO Q4H PRN for PAIN-MODERATE (5-7) Prescribed by: VIJAYA HOFFMAN on 07/14/23 1347 Lisinopril (Lisinopril) 10 Mg Tablet, 10 MG PO DAILY, (Reported) Entered as Reported by: Miranda Montejo on 12/04/22 1040 Metformin HCl (Metformin HCl) 1,000 Mg Tablet, 1,000 MG PO DAILY, (Reported) Entered as Reported by: VITOR COTO on 03/12/23 1354 Methocarbamol (Methocarbamol) 500 Mg Tablet, 500 MG PO Q6-8HR Prescribed by: VIJAYA HOFFMAN on 05/10/231914 Pantoprazole Sodium (Pantoprazole Sodium) 40 Mg Tablet.dr, 40 MG PO DAILY, (Reported) Entered as Reported by: VITOR COTO on 03/12/23 1354 Prednisone (Prednisone) 20 Mg Tab, 40 MG PO DAILY Prescribed by: LUNA LEGER on 06/02/23 1632 Pregabalin (Pregabalin) 75 Mg Capsule, 75 MG PO DAILY, (Reported) Entered as Reported by: VITOR COTO on 03/12/23 1354 Venlafaxine HCl (Venlafaxine HCl ER) 75 Mg Cap.er.24h, 75 MG PO DAILY, ( Reported) Entered as Reported by: VITOR COTO on 03/12/23 135 Review of Systems Constitutional: No chills, No diaphoresis, No malaise, No weakness EENTM: No ear pain, No blurred vision, No double vision Respiratory: No cough, No dyspnea on exertion Cardiovascular: No chest pain, No edema Gastrointestinal: No diarrhea, No nausea, No vomiting Genitourinary: No decreased output, No discharge Musculoskeletal: back pain; No joint pain; muscle pain Skin: No change in color, No change in hair/nails (CHANO CANSECO) All Other Systems Reviewed Negative Unless Noted: Yes (CHANO CANSECO) Past Aptkwoj-Bwaylj-Mxiksr Hx Patient Social History Tobacco Use?: No Substance use?: No Alcohol Use?: No Pt feels they are or have been: No (CHANO CANSECO) Immunizations Up To Date Tetanus Booster (TDap): Less than 5yrs PED Vaccines UTD: No Influenza Vaccine Up-to-Date: No; Not Current First/Initial COVID19 Vaccinat: NOT VACCINATED Second COVID19 Vaccination Abdelrahman: NOT VACCINATED Third COVID19 Vaccination Date: NOT VACCINATED (CHANO CANSECO) Seasonal Allergies Seasonal Allergies: Yes (CHANO CANSECO) Past Medical History Surgery/Hospitalization HX: HYSTERECTOMY/BSO, CHOLECYSTECTOMY, HERNIA REPAIR, BILATERAL CARPAL TUNNEL,LEFT KNEE REPLACEMENT, LEFT SHOULDER SURGERY, BACK SURGERY, rIGHT KNEE REPLACEMENT NIDDM, HIGH CHOLESTEROL, HTN, ENRRIQUE, COPD, ASTHMA, CHRONIC BACK PAIN. 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 Sexually Transmitted Disease: No HIV/AIDS: No Genitourinary: No Kidney Infection, Bladder Infection, UTI-Chronic Gastrointestinal: No Abdominal Hernia, Gastroesophageal Reflux, Chronic Constipation, Chronic Diarrhea, Irritable Bowel Musculoskeletal: Yes Arthritis, Back Injury, Chronic Back Pain Endocrine: Yes Diabetes, Non-Insulin dep HEENT: No Loss of Vision: Bilateral Hearing Impairment: Denies Cancer: No Psychosocial: Yes Bipolar Integumentary: No Blood Disorders: No Adverse Reaction/Blood Tranf: No (CHANO CANSECO) Family Medical History Arthritis 19 MOTHER, Onset:Unknown Asthma 19 FATHER, Onset:Unknown Cataracts 19 MOTHER, Onset:Unknown Diabetes mellitus 19 MOTHER, Onset:Unknown FH: COPD (chronic obstructive pulmonary disease) 19 FATHER, Onset:Unknown Hypercholesterolemia 19 MOTHER MS (multiple sclerosis) G8 SISTER, Onset:Unknown No Pertinent Family Hx (CHANO CANSECO) Physical Exam Vital Signs Vital Signs - First Documented 07/14/23 12:49 Temp 36.4 Pulse 75 Resp 16 B/P (MAP) 114/74 (87) Pulse Ox 96 O2 Delivery Room Air (LAYTON HERNANDEZ MD) Vital Signs Capillary Refill : (CHANO CANSECO) Height, Weight, BMI Height: 5'9.00" Weight: 288lbs. 0.0oz. 130.764357nv; 40.00 BMI Method:Stated General Appearance: No Apparent Distress, WD/WN HEENT: PERRL/EOMI, TMs Normal, Normal ENT Inspection, Pharynx Normal Neck: Full Range of Motion, Normal Inspection, Non Tender, Supple Cardiovascular: Regular Rate, Rhythm, No Edema, No Gallop, No JVD Respiratory: Chest Non Tender, Lungs Clear, Normal Breath Sounds, No Accessory Muscle Use, No Respiratory Distress Gastrointestinal: Normal Bowel Sounds, No Organomegaly, No Pulsatile Mass, Non Tender Back: Other (Lumbar midline tenderness. Right lumbar paraspinal muscle tenderness) Extremity: Normal Capillary Refill, Normal Inspection, Normal Range of Motion, Non Tender Neurologic/Psychiatric: Alert, Oriented x3, No Motor/Sensory Deficits, Normal Mood/Affect, supervisor painting II-XII Norm as Tested Skin: Normal Color, Warm/Dry (CHANO CANSECO) Progress/Results/Core Measures Results/Orders Medications Given in ED Current Medications Medications Dose Ordered Sig/Veronika Route Start Time Stop Time Status Last Admin Dose Admin Ketorolac Tromethamine 30 mg ONCE ONCE IM 07/14/23 13:30 07/14/23 13:31 DC 07/14/23 13:37 30 MG Orphenadrine Citrate 60 mg ONCE ONCE IM 07/14/23 13:30 07/14/23 13:31 DC 07/14/23 13:38 60 MG (LAYTON HERNANDEZ MD) Vital Signs/I&O 07/14/23 07/14/23 12:49 14:10 Temp 36.4 Pulse 75 86 Resp 16 B/P (MAP) 114/74 (87) 113/74 Pulse Ox 96 O2 Delivery Room Air (LAYTON HERNANDEZ MD) Blood Pressure Mean: 87 Departure Communication (PCP) Reviewed previous ER visits, H&P, lab testing. Patient injured her back while doing laundry. No falls. No neurological red flag findings such as bowel or urine incontinence or saddle paresthesia. Has been seen in the past for low back pain. She is scheduled follow-up with pain management tomorrow. Tenderness to the right lumbar paraspinal muscle and midline with sharp shooting pain down into her right posterior thigh. Normal strength in the lower extremities with no sensory changes. Suspect low back muscle strain versus pinched nerve from bulging disc. No fever chills, drug use suggesting concern for epidural abscess. No evidence suggesting cauda equina syndrome. No urinary symptoms. Soft abdomen without any tenderness. She did receive Toradol, Norflex and hydrocodone with some improvement of pain. We will provide a few days worth of pain medication until she sees pain specialist. If any worsening symptoms return back to ED. (CHANO CANSECO) Impression Primary Impression: Lumbar sprain Disposition: 01 HOME, SELF-CARE Condition: Stable Departure-Patient Inst. Decision time for Depature: 13:46 (CHANO CANSECO) Referrals: DICK LAFLEUR MD (PCP/Family) Primary Care Physician Patient Instructions: Low Back Pain (DC) Add. Discharge Instructions: Recommend follow-up your primary care physician for further evaluation. Recommend rest. Follow-up pain management tomorrow All discharge instructions reviewed with patient and/or family. Voiced understanding. Scripts Hydrocodone/Acetaminophen (Hydrocodone-Acetamin 5-325 mg) 5 Mg-325 Mg Tablet 1 TAB PO Q4H PRN for PAIN-MODERATE (5-7), #6 TAB Prov: CHANO CANSECO 07/14/23 ATTENDING PHYSICIAN NOTE: I was physically present as attending physician in the emergency department during the care of this patient, but I was not directly involved in the decision making or delivery of care for this patient. (LAYTON HERNANDEZ MD) CHANO CANSECO Jul 14, 2023 13:23 LAYTON HERNANDEZ MD Jul 14, 2023 17:03
[2023-07-14] MEDS ORDERED: ORPHENADRINE 60 MG/2 ML AMP (ED ONLY) IM ONE (13:30)
[2023-07-14] MEDS ORDERED: KETOROLAC INJ 30 MG/ML VIAL IM ONE (13:30)
[2023-07-14] MEDS ORDERED: ACHD5005 PO (13:46)
[2023-07-14 14:10] VITALS: BP 113/74
== END 2023-07-14 14:09 | disposition home or self-care (01) ==
LOC: EDUNIT# 12:27 → ER 12:29
DX: S33.5XXA Sprain of ligaments of lumbar spine, initial encounter (principal); Z28.310 Unvaccinated for COVID-19; X58.XXXA Exposure to other specified factors, initial encounter; Y93.E2 Activity, laundry
CPT/HCPCS: 99284

== ENCOUNTER 2023-07-17 14:58 | Emergency (ER) | payer MEDICARE, MEDICAID ==
[~2023-07-17] VITALS: Ht 175.2 cm; Wt 122.4 kg
[2023-07-17] MEDS ORDERED: KETO10TA PO (15:29)
--- NOTE | 2023-07-17 15:29 | ED Back Pain ---
General Chief Complaint: Back Problems Stated Complaint: LOWER BACK PAIN Nursing Triage Note: PT AMB TO TRIAGE WITH CC OF CHRONIC BACK PAIN. PT WAS SEEN FRIDAY FOR SAME ISSUE. PT WENT TO PAIN MANAGEMENT ON FRIDAY AND RECIEVED A STEROID SHOT. PT REPORTED THAT SHE ISNT ABLE TO GET INJECTIONS UNTIL AUGUST. Source of Information: Patient Exam Limitations: No Limitations History of Present Illness Date Seen by Provider: Jul 17, 2023 Time Seen by Provider: 15:27 Initial Comments Patient is a 62-year-old female presents ED with chronic low back pain. Patient states she injured her back last week after picking a laundry basket. She was seen here on Friday. She saw pain management on Friday and was not scheduled for an epidural until August. She has talked to her neurosurgeon Dr. Judge secondary to the pain and she states that they do not know why she is having this pain. She has had similar type pain in the past. She reports a sharp shooting pain down into the right leg. She denies of any bowel or urine incontinence saddle paresthesia, lower extremity weakness. She is able to ambulate. She has been on narcotics in the past. She has been taken ibuprofen without much improvement Allergies and Home Medications Allergies Coded Allergies: nickel (Verified Allergy, Intermediate, RASH, 12/04/22) doxycycline (Verified Allergy, Mild, HIVES, 12/04/22) Iodinated Contrast Media (Verified Allergy, Unknown, 12/04/22) cobalt (Verified Allergy, Unknown, Hives, 12/04/22) ondansetron (Verified Allergy, Unknown, vomiting, 12/04/22) penicillin (Verified Allergy, Unknown, HAS RECEIVED ROCEPHIN, 12/04/22) rash Uncoded Allergies: hexachloride (Allergy, Unknown, Hives, 06/24/19) Patient Home Medication List Home Medication List Reviewed: Yes Cyclobenzaprine HCl (Cyclobenzaprine HCl) 10 Mg Tablet, 10 MG PO Q8H PRN for MUSCLE SPASMS, (Reported) Entered as Reported by: VITOR COTO on 03/12/23 1354 Docusate Sodium (Colace) 100 Mg Capsule, 100 MG PO DAILY Prescribed by: STEPHANE KIMBLE on 03/12/23 1410 Fluticasone Propionate (Fluticasone Propionate) 50 Mcg/Actuation [place].susp, 2 SPRAYS NSEACH DAILY, (Reported) Entered as Reported by: VITOR COTO on 03/12/23 1354 Fluticasone/Vilanterol (Breo Ellipta 100-25 Mcg INH) 100 Mcg-25 Mcg/Dose Blst.w.dev, 1 PUFF INH DAILY, (Reported) Entered as Reported by: VITOR COTO on 03/12/23 1354 Fluvastatin Sodium (Fluvastatin Sodium) 20 Mg Capsule, 20 MG PO DAILY, (Re ported) Entered as Reported by: Miranda Montejo on 12/04/22 1040 Hydrocodone/Acetaminophen (Hydrocodone-Acetamin 5-325 mg) 5 Mg-325 Mg Tablet, 1 EACH PO Q4H PRN for PAIN-MODERATE (5-7) Prescribed by: STEPHANE KIMBLE on 03/12/23 1410 Hydrocodone/Acetaminophen (Hydrocodone-Acetamin 5-325 mg) 5 Mg-325 Mg Tablet, 1 TAB PO Q4H PRN for PAIN-MODERATE (5-7) Prescribed by: VIJAYA HOFFMAN on 05/10/23 1915 Hydrocodone/Acetaminophen (Hydrocodone-Acetamin 5-325 mg) 5 Mg-325 Mg Tablet, 1 TAB PO Q6H PRN for PAIN-MODERATE (5-7) Prescribed by: LUNA LEGER on 06/02/23 1633 Hydrocodone/Acetaminophen (Hydrocodone-Acetamin 5-325 mg) 5 Mg-325 Mg Tablet, 1 TAB PO Q4H PRN for PAIN-MODERATE (5-7) Prescribed by: VIJAYA HOFFMAN on 07/14/23 1347 Ketorolac Tromethamine (Ketorolac Tromethamine) 10 Mg Tablet, 10 MG PO TID Prescribed by: VIJAYA HOFFMAN on 07/17/23 1529 Lisinopril (Lisinopril) 10 Mg Tablet, 10 MG PO DAILY, (Reported) Entered as Reported by: Miranda Montejo on 12/04/22 1040 Metformin HCl (Metformin HCl) 1,000 Mg Tablet, 1,000 MG PO DAILY, (Reported) Entered as Reported by: VITOR COTO on 03/12/23 1354 Methocarbamol (Methocarbamol) 500 Mg Tablet, 500 MG PO Q6-8HR Prescribed by: VIJAYA HOFFMAN on 05/10/23 191 Pantoprazole Sodium (Pantoprazole Sodium) 40 Mg Tablet.dr, 40 MG PO DAILY, (Reported) Entered as Reported by: VITOR COTO on 03/12/23 1354 Prednisone (Prednisone) 20 Mg Tab, 40 MG PO DAILY Prescribed by: LUNA LEGER on 06/02/23 1632 Pregabalin (Pregabalin) 75 Mg Capsule, 75 MG PO DAILY, (Reported) Entered as Reported by: VITOR OCTO on 03/12/23 1354 Venlafaxine HCl (Venlafaxine HCl ER) 75 Mg Cap.er.24h, 75 MG PO DAILY, (Reported) Entered as Reported by: VITOR COTO on 03/12/23 1354 Review of Systems Constitutional: No chills, No diaphoresis EENTM: No ear pain, No blurred vision, No double vision Respiratory: No cough, No dyspnea on exertion Cardiovascular: No chest pain Gastrointestinal: No abdominal pain, No diarrhea, No nausea, No vomiting Genitourinary: No decreased output, No discharge, No dysuria, No frequency Musculoskeletal: back pain; No joint pain, No joint swelling, No muscle pain, No muscle stiffness Skin: No change in color, No change in hair/nails All Other Systems Reviewed Negative Unless Noted: Yes Past [id number] Hx Immunizations Up To Date Tetanus Booster (TDap): Less than 5yrs PED Vaccines UTD: No First/Initial COVID19 Vaccinat: NOT VACCINATED Second COVID19 Vaccination Abdelrahman: NOT VACCINATED Third COVID19 Vaccination Date: NOT VACCINATED Seasonal Allergies Seasonal Allergies: Yes Past Medical History Surgery/Hospitalization HX: HYSTERECTOMY/BSO, CHOLECYSTECTOMY, HERNIA REPAIR, BILATERAL CARPAL TUNNEL,LEFT KNEE REPLACEMENT, LEFT SHOULDER SURGERY, BACK SURGERY, rIGHT KNEE REPLACEMENT NIDDM, HIGH CHOLESTEROL, HTN, ENRRIQUE, COPD, ASTHMA, CHRONIC BACK PAIN. 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: Hysterectomy, Menopausal Sexually Transmitted Disease: No HIV/AIDS: No Genitourinary: No Kidney Infection, Bladder Infection, UTI-Chronic Gastrointestinal: No Abdominal Hernia, Gastroesophageal Reflux, Chronic Constipation, Chronic Diarrhea, Irritable Bowel Musculoskeletal: Yes Arthritis, Back Injury, Chronic Back Pain Endocrine: Yes Diabetes, Non-Insulin dep HEENT: No Loss of Vision: Bilateral Hearing Impairment: Denies Cancer: No Psychosocial: Yes Bipolar Integumentary: No Blood Disorders: No Adverse Reaction/Blood Tranf: No Family Medical History Arthritis 19 MOTHER, Onset:Unknown Asthma 19 FATHER, Onset:Unknown Cataracts 19 MOTHER, Onset:Unknown Diabetes mellitus 19 MOTHER, Onset:Unknown FH: COPD (chronic obstructive pulmonary disease) 19 FATHER, Onset:Unknown Hypercholesterolemia 19 MOTHER MS (multiple sclerosis) G8 SISTER, Onset:Unknown No Pertinent Family Hx Physical Exam Vital Signs Vital Signs - First Documented 07/17/23 15:22 Temp 36.3 Pulse 94 B/P (MAP) 126/82 (97) Pulse Ox 94 O2 Delivery Room Air Capillary Refill : Height, Weight, BMI Height: 5'9.00" Weight: 288lbs. 0.0oz. [id number]; 39.00 BMI Method:Stated General Appearance: No Apparent Distress, WD/WN HEENT: PERRL/EOMI, TMs Normal, Normal ENT Inspection, Pharynx Normal Neck: Full Range of Motion, Normal Inspection, Non Tender, Supple Cardiovascular: Regular Rate, Rhythm, No Edema, No Gallop, No JVD Respiratory: Chest Non Tender, Lungs Clear, Normal Breath Sounds, No Accessory Muscle Use, No Respiratory Distress Gastrointestinal: Normal Bowel Sounds, No Organomegaly, No Pulsatile Mass, Non Tender Back: Other (Right lumbar paraspinal muscle tenderness. Right buttock tenderness. 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 Norm as Tested Progress/Results/Core Measures Results/Orders My Orders Orders - CHANO CANSECO Ketorolac Injection (Ketorolac Injection (07/17/23 15:30) Orphenadrine Inj (Ed Only) (Orphenadrine (07/17/23 15:30) Medications Given in ED Current Medications Medications Dose Ordered Sig/Veronika Route Start Time Stop Time Status Last Admin Dose Admin Ketorolac Tromethamine 30 mg ONCE ONCE IM 07/17/23 15:30 07/17/23 15:31 DC 07/17/23 15:36 30 MG Orphenadrine Citrate 60 mg ONCE ONCE IM 07/17/23 15:30 07/17/23 15:31 DC 07/17/23 15:36 60 MG Vital Signs/I&O 07/17/23 07/17/23 15:22 15:41 Temp 36.3 Pulse 94 94 B/P (MAP) 126/82 (97) 126/82 Pulse Ox 94 O2 Delivery Room Air Blood Pressure Mean: 97 Departure Communication (PCP) Reviewed previous ER visits, H&P, lab testing. History of chronic low back pain. Follows Dr. Judge neurosurgery. Injured her back last week while picking up a laundry basket. She was seen here 3 days ago was given some hydrocodone states she did take the pain with some improvement. She did follow- up with pain management on Friday and scheduled for epidural in August. She states she contacted her primary care physician who stated to come to the ER since she is having too much pain. Patient has been seen here for multiple visits for low back pain. She had no falls or evidence suggesting a lumbar vertebral fracture. She has a known history of similar type pain. No fever or neurological deficits suggesting emergent MRI. Patient received Toradol with some improvement in pain. Will discharge with ketorolac. She needs a follow-up with her primary care physician for further evaluation at this time. Follow-up with your neurosurgery. Impression Primary Impression: Back pain Disposition: HOME, SELF-CARE Condition: Stable Departure-Patient Inst. Decision time for Depature: 15:28 Referrals: DICK LAFLEUR MD (PCP/Family) Primary Care Physician Patient Instructions: Low Back Pain (DC) Add. Discharge Instructions: Need to follow-up your primary care physician for further evaluation. All discharge instructions reviewed with patient and/or family. Voiced understanding. Scripts Ketorolac Tromethamine (Ketorolac Tromethamine) 10 Mg Tablet 10 MG PO TID, #15 TAB Prov: CHANO CANSECO 07/17/23 CHANO CANSECO Jul 17, 2023 15:29
[2023-07-17] MEDS ORDERED: ORPHENADRINE 60 MG/2 ML AMP (ED ONLY) IM ONE (15:30)
[2023-07-17] MEDS ORDERED: KETOROLAC INJ 30 MG/ML VIAL IM ONE (15:30)
[2023-07-17 15:41] VITALS: BP 126/82
== END 2023-07-17 15:40 | disposition home or self-care (01) ==
LOC: EDUNIT# 14:58 → ER 15:00
DX: M54.50 Low back pain, unspecified (principal)
CPT/HCPCS: 99284